=== PATIENT | female | born 1985 | race Caucasian/White ===

== ENCOUNTER 2022-12-25 06:32 | Emergency (ER) | payer MEDICARE, SELFPAY ==
[2022-12-25] VITALS (14 sets, daily range): BP systolic 157–188; BP diastolic 106–134; PULSE 87–90; RESP 18; TEMP 36.5; O2SAT 98; BMI 22.8
--- NOTE | 2022-12-25 07:45 | XR_ITS ---
The [address] [address] Patient Name: PRITESH TREJO MRN: [id number] date: 1985 Sex: F Assigned Patient Location: ER Current Patient Location: ER Accession/Order Number: [id number] Exam Date: 12/25/2022 08:26 Report Date: 12/25/2022 08:43 At the request of: RAHUL HUERTA Procedure: XR acute abdomen series EXAMINATION: XR acute abdomen series, 12/25/2022 8:26 AM EDT HISTORY: pain COMPARISON: KUB 12/14/2022 TECHNIQUE: Upright views of the chest and abdomen, with additional supine views of the abdomen. FINDINGS: Medical devices: Right IJ chest port catheter tip projects over the low SVC. Cardiomediastinal silhouette is within normal limits. Lungs and pleural spaces are grossly clear. Nonobstructive bowel gas pattern. Large volume formed colorectal stool. Procedure change projects over the abdomen, and IUD projects over the pelvis. No abnormal calcifications. No definite free intraperitoneal gas. XR/XR acute abdomen series IMPRESSION: 1. Nonobstructive bowel gas pattern. 2. Large volume formed colorectal stool. Electronically authenticated by: SHANNON LEONARD Date: 12/25/2022 08:43
[2022-12-25 07:58] LABS: Basophils Absolute Auto 0.1 10^3/uL (0.0-0.1); Basophils Percent Auto 0.7 % (0.2-2.0); Eosinophils Percent Auto 0.1 % (0.9-7.0); Hematocrit 25.5 % (36.0-48.0); Hemoglobin 7.7 g/dL (12.0-16.0); Immature Granulocytes Abs Auto 0.02 10^3/uL (0.00-0.03); Immature Granulocytes Pct Auto 0.3 % (0.0-0.5); Lymphocytes Absolute Auto 1.8 10^3/uL (1.2-3.8); Lymphocytes Percent Auto 26.6 % (20.5-60.0); Mean Corpuscular HGB Conc 30.2 g/dL (29.9-35.2); Mean Corpuscular Hemoglobin 26.9 pg (26.7-34.0); Mean Corpuscular Volume 89.2 fL (81.0-99.0); Mean Platelet Volume 10.1 fL (9.5-13.5); Monocytes Absolute Auto 0.7 10^3/uL (0.3-0.8); Monocytes Percent Auto 9.6 % (1.7-12.0); Neutrophils Absolute Auto 4.3 10^3/uL (1.4-6.5); Neutrophils Percent Auto 62.7 % (43.0-75.0); Platelet Count 516 10^3/uL (150-450); Red Blood Count 2.86 10^6/uL (4.20-5.40); Red Cell Distribution Width 16.7 % (11.0-15.0); White Blood Count 6.9 10^3/uL (4.0-11.0)
[2022-12-25] MEDS: PROCHLORPERAZINE 10 MG/2 ML VIAL IV (08:09)
[2022-12-25] MEDS: 0.9 % SODIUM CHLORIDE 1,000 ML 999 ML IV (08:09)
[2022-12-25] MEDS: ONDANSETRON PF 4 MG/2 ML VIAL IV (08:09)
[2022-12-25 08:13] LABS: Lactate/Lactic Acid 0.9 mmol/L (0.4-2.0)
[2022-12-25 08:20] LABS: Alanine Aminotransferase 21 U/L (14-59); Albumin Level 3.7 g/dL (3.4-5.0); Alkaline Phosphatase 134 U/L (46-116); Anion Gap 14.4; Aspartate Amino Transferase 12 U/L (15-37); BUN Creatinine Ratio 13.7; Bilirubin Total 0.2 mg/dL (0.2-1.0); Calcium 8.7 mg/dL (8.5-10.1); Carbon Dioxide 23.9 mmol/L (21.0-32.0); Chloride 109 mmol/L (98-107); Estimated GFR (African America 29 (>=60); Estimated GFR (Non-African Ame 24 (>=60); Globulin 3.8 g/dL; Glucose 113 mg/dL (74-106); Potassium 5.3 mmol/L (3.5-5.1); Sodium 142 mmol/L (136-145); Total Protein 7.5 g/dL (6.4-8.2); Troponin I High Sensitivity 7.2 pg/mL (4.0-51.3)
[2022-12-25 09:41] LABS: INR 0.98; Partial Thromboplastin Time 25.9 sec (22.3-36.2); Prothrombin Time 10.4 sec (9.0-11.6)
--- NOTE | 2022-12-25 11:02 | ED_ITS ---
HPI - General Adult General Chief complaint: Abdominal Pain Stated complaint: VOMITING BLOOD Time Seen by Provider: 12/25/22 07:43 Source: patient Mode of arrival: walk-in History of Present Illness HPI narrative: Patient is a 37-year-old female who is presenting to the Emergency Room with chief complaint of midepigastric pain, hematemesis that is been going on for 2 days. Patient has long-standing medical history, we see her past medical history section. Patient has had her pancreas completely removed. Patient's here because of intermittent hematemesis. Patient is not on any type of blood thinners. Patient does have a outpatient colonoscopy scheduled for Wednesday. Patient does have a history colonoscopy. Patient did not believe that she is , no urinary frequency, urgency or burning. No chest pain or shortness of breath. Patient's having acute on chronic midepigastric pain. Patient's having intractable vomiting. Patient took Phenergan 2 separate times a home with little relief, patient came into the Emergency Room for evaluation. SHe does have [place] that she can use at home intermittently as needed for pain. Patient states she suffers from constipation. No recent traveling, no trauma. Nothing unusual to eat or drink in the last day or 2. No acute complaints. . All systems are negative except as noted/marked. All systems reviewed and otherwise negative. . Nurses note and vital signs reviewed and patient is not hypoxic. General: The patient appears well and in No respiratory distress or any distress, mild discomfort secondary to midepigastric pain and intractable vomiting. Patient has no retching. Patient is resting uncomfortably on cart. Patient is not toxic, lethargic, or listless. Patient looks ill, not toxic. Skin: Warm, dry, no pallor noted. There is no rash noted. No petechiae, purpura.No jaundice. Head: Normocephalic, atraumatic Eye: Normal conjunctiva, no drainage, EOMI. PERRL Ears, Nose, Mouth, and Throat: oral mucosa is moist. Nares patent. Mouth without vesicles. Cardiovascular: Regular Rate and Rhythm, no murmur, gallop, rub Respiratory: Patient is in no distress, no accessory muscle use, lungs are clear to auscultation, no wheezing, rales or rhonchi Back: non-tender, no CVA tenderness bilaterally to percussion. No CT LS midline pain GI: soft, Mild to moderate midepigastric tenderness palpation, otherwise no tenderness to palpation, no masses appreciated. No rebound, guarding, or rigidity noted. No flank pain bilateral, No distention. No peritoneal signs. Mild distention. Musculoskeletal: Patient has full range of motion of all of the extremities, no motor, sensory, or focal neurological deficits Neurological: A&O x3, normal speech Psychiatric: Cooperative Related Data Home Medications Medication Instructions Recorded Confirmed alprazolam 1 mg tablet 1 mg PO QID PRN anxiety 12/25/22 12/25/22 amlodipine 10 mg tablet 10 mg PO DAILY 12/25/22 12/25/22 gabapentin 300 mg capsule 300 mg PO BID 12/25/22 12/25/22 hydrochlorothiazide 25 mg tablet 25 mg PO DAILY 12/25/22 12/25/22 losartan 50 mg tablet 50 mg PO DAILY 12/25/22 12/25/22 lubiprostone 24 mcg capsule mcg PO 12/25/22 lubiprostone 24 mcg capsule 24 mcg PO BID 12/25/22 12/25/22 (Amitiza) ondansetron HCl 2 mg/mL mg 12/25/22 intravenous solution oxycodone 5 mg tablet 5 mg PO Q6H PRN pain 12/25/22 12/25/22 promethazine 25 mg/mL injection mg 12/25/22 solution quetiapine 100 mg tablet 150 mg PO DAILY 12/25/22 12/25/22 sertraline 100 mg tablet (Zoloft) 100 mg PO DAILY 12/25/22 12/25/22 temazepam 15 mg capsule 15 mg PO DAILY 12/25/22 12/25/22 tizanidine 4 mg tablet 8 mg PO Q12H 12/25/22 12/25/22 zolpidem 10 mg tablet 10 mg PO DAILY 12/25/22 12/25/22 Allergies Allergy/AdvReac Type Severity Reaction Status Date / Time azithromycin [From Zithromax] Allergy Unknown Verified 12/25/22 06:50 clindamycin Allergy Unknown Verified 12/25/22 06:50 dicyclomine [From Bentyl] Allergy Unknown Verified 12/25/22 06:50 erythromycin base Allergy Unknown Verified 12/25/22 06:50 ketorolac [From Toradol] Allergy Unknown Verified 12/25/22 06:50 meperidine [From Demerol] Allergy Unknown Verified 12/25/22 06:50 metoclopramide [From Reglan] Allergy Unknown Verified 12/25/22 06:50 nitrofurantoin Allergy Unknown Verified 12/25/22 06:50 [From Macrobid] Penicillins Allergy Unknown Verified 12/25/22 06:50 vancomycin Allergy Unknown Verified 12/25/22 06:50 [facility] Medical History (Updated 12/25/22 @ 11:41 by Angus Vickers MD) Surgical History (Updated 12/25/22 @ 07:01 by Ginna Cruz) Social History Smoking status: Never smoker Exam Constitutional Vital Signs, click to edit/add: Last Vital Signs Temp 97.7 F 12/25/22 06:40 Pulse 90 12/25/22 06:40 Resp 18 12/25/22 06:40 BP 188/134 H 12/25/22 10:30 Pulse Ox 98 12/25/22 06:40 O2 Del Method Room Air 12/25/22 07:24 Course Vital Signs Vital signs: Vital Signs Temperature 97.7 F 12/25/22 06:40 Pulse Rate 90 12/25/22 06:40 Respiratory Rate 18 12/25/22 06:40 Blood Pressure 169/128 H 12/25/22 06:40 Pulse Oximetry 98 12/25/22 06:40 Oxygen Delivery Method Room Air 12/25/22 06:40 Temperature 97.7 F 12/25/22 06:40 Pulse Rate 90 12/25/22 06:40 Respiratory Rate 18 12/25/22 06:40 Blood Pressure 188/134 H 12/25/22 10:30 Pulse Oximetry 98 12/25/22 06:40 Oxygen Delivery Method Room Air 12/25/22 07:24 Medical Decision Making MDM Narrative Medical decision making narrative: Patient to 11 level was 7.7. Patient felt much better after Zofran and Compazine was given together with IV fluids. Patient was uncertain the Compazine and Zofran can be given together. Patient's lab work shows no other significant abnormalities. Patient will follow-up with PCP. Patient did not need or want any narcotics today. Patient understands it she can use Zofran with Compazine or Phenergan at home. Patient did not want a gastrointestinal cocktail prior to discharge. Patient did not want any narcotic pain medication. Patient does have a colonoscopy scheduled as an outpatient on Wednesday. Patient will not her surgeon in [place]'s during the colonoscopy no about her hemoglobin is 7.7. No questions at discharge. Lab Data Lab results reviewed: Yes I reviewed the patient's lab results Labs: Lab Results 12/25/22 12/25/22 Range/Units 07:15 08:00 WBC 6.9 (4.0-11.0) 10^3/uL RBC 2.86 L (4.20-5.40) 10^6/uL Hgb 7.7 L (12.0-16.0) g/dL Hct 25.5 L (36.0-48.0) % MCV 89.2 (81.0-99.0) fL MCH 26.9 (26.7-34.0) pg MCHC 30.2 (29.9-35.2) g/dL RDW 16.7 H (11.0-15.0) % Plt Count 516 H (150-450) 10^3/uL MPV 10.1 (9.5-13.5) fL Neut % (Auto) 62.7 (43.0-75.0) % Lymph % (Auto) 26.6 (20.5-60.0) % [place] % (Auto) 9.6 (1.7-12.0) % Eos % (Auto) 0.1 L (0.9-7.0) % Baso % (Auto) 0.7 (0.2-2.0) % Neut # (Auto) 4.3 (1.4-6.5) 10^3/uL Lymph # (Auto) 1.8 (1.2-3.8) 10^3/uL [place] # (Auto) 0.7 (0.3-0.8) 10^3/uL Eos # (Auto) 0.0 (0.0-0.7) 10^3/uL Baso # (Auto) 0.1 (0.0-0.1) 10^3/uL Abs Immat Gran (auto) 0.02 (0.00-0.03) 10^3/uL Imm/Tot Granulo (auto) 0.3 (0.0-0.5) % PT 10.4 (9.0-11.6) sec INR 0.98 APTT 25.9 (22.3-36.2) sec Sodium 142 (136-145) mmol/L Potassium 5.3 H (3.5-5.1) mmol/L Chloride 109 H (98-107) mmol/L Carbon Dioxide 23.9 (21.0-32.0) mmol/L Anion Gap 14.4 BUN 32.0 H (7.0-18.0) mg/dL Creatinine 2.34 H (0.55-1.02) mg/dL Est GFR ( Amer) 29 L (>=60) Est GFR (Non-Af Amer) 24 L (>=60) BUN/Creatinine Ratio 13.7 Glucose 113 H (74-106) mg/dL Lactate 0.9 (0.4-2.0) mmol/L Calcium 8.7 (8.5-10.1) mg/dL Magnesium 2.0 (1.8-2.4) mg/dL Total Bilirubin 0.2 (0.2-1.0) mg/dL AST 12 L (15-37) U/L ALT 21 (14-59) U/L Alkaline Phosphatase 134 H (46-116) U/L Troponin I High Sens 7.2 (4.0-51.3) pg/mL Total Protein 7.5 (6.4-8.2) g/dL Albumin 3.7 (3.4-5.0) g/dL Globulin 3.8 g/dL Albumin/Globulin Ratio 1.0 Lipase 12.0 L (73.0-393.0) U/L Blood Type A Positive Antibody Screen Negative ECG Data Attestation: I personally reviewed and interpreted this ECG as follows: Interpretation: EKG interpretation. Normal sinus rhythm at 78 beats a minute. Normal axis deviation. No acute ST elevation, no acute ectopy. QTC of 439. Discharge Plan Discharge Chief Complaint: Abdominal Pain Clinical Impression: Abdominal pain, Nausea and vomiting, Constipation, Chronic anemia Patient Disposition: Home, Self-Care Condition: Fair Mode of Transportation: Private Vehicle Prescriptions / Home Meds: No Action temazepam 15 mg capsule 15 mg PO DAILY zolpidem 10 mg tablet 10 mg PO DAILY quetiapine 100 mg tablet 150 mg PO DAILY sertraline [Zoloft] 100 mg tablet 100 mg PO DAILY tizanidine 4 mg tablet 8 mg PO Q12H gabapentin 300 mg capsule 300 mg PO BID lubiprostone [Amitiza] 24 mcg capsule 24 mcg PO BID amlodipine 10 mg tablet 10 mg PO DAILY losartan 50 mg tablet 50 mg PO DAILY hydrochlorothiazide 25 mg tablet 25 mg PO DAILY alprazolam 1 mg tablet 1 mg PO QID PRN (Reason: anxiety) ondansetron HCl 2 mg/mL solution promethazine 25 mg/mL solution lubiprostone 24 mcg capsule PO oxycodone 5 mg tablet 5 mg PO Q6H PRN (Reason: pain) Patient Comments: PALLIATIVE CARE PT Instructions: Constipation (ED), Acute Nausea and Vomiting (ED), Abdominal Pain (ED), Anemia (ED) Additional Instructions: He did take Zofran every 4 hours as discussed at bedside. He can use Compazine and Phenergan every 6 hours as needed. You could take Zofran and either Compazine or Phenergan together if needed for severe retching or vomiting. The hemoglobin level was 7.7. Follow-up with your gastrointestinal specialist today and inform them of the hemoglobin level to see if they want do any additional testing or transfusion prior to Colonoscopy on Wednesday. Continue taking medications as prescribed. Stand Alone Forms: Portal Instructions Referrals: Physician,Non-Staff, MD [Primary Care Provider] - 1 week Discharge Date/Time: 12/25/22 12:01
[2022-12-25] MEDS: HEPARIN SODIUM (PORCINE) PF LOCK FLUSH 500 UNIT/5 ML SYRINGE 250 UNIT IV (11:59)
--- NOTE | 2022-12-25 17:23 | ECG_ITS ---
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
== END 2022-12-25 12:01 | disposition home or self-care (01) ==
PROVIDERS: Emergency Provider Emergency Medicine
DX: R10.9 Unspecified abdominal pain (principal); R11.2 Nausea with vomiting, unspecified; K59.00 Constipation, unspecified; D64.9 Anemia, unspecified; Z79.899 Other long term (current) drug therapy
CPT/HCPCS: 36415; 74022; 80053; 83605; 83690; 83735; 84484; 85025; 85610; 85730; 86850; 86900; 86901; 93005; 96361; 96374; 96375; 99285

== ENCOUNTER 2023-01-13 14:44 | Emergency (ER) | payer MEDICARE, SELFPAY ==
[2023-01-13 14:48] VITALS: BP 180/100; PULSE 108; RESP 20; TEMP 36.8; O2SAT 98; BMI 22.8
--- NOTE | 2023-01-13 15:20 | ED_ITS ---
Documented by User: EDUARDO Connolly 01/13/23 18:03 HPI - Abdominal Pain General Chief Complaint: Abdominal Pain Stated Complaint: ABD PAIN Time Seen by Provider: 01/13/23 15:07 Source: patient Mode of arrival: walk-in Limitations: no limitations History of Present Illness HPI narrative: patient is a 37-year-old female well-known to this emergency department for complex chronic medical conditions. She states she was diagnosed with a cluster of ovarian cysts on the left side 4-5 days ago at the [place] emergency department. She has home oxycodone but states she has had an increase in pain and vomiting in the last two days and has not been able to hold down her home medications. She has not had any fevers, diarrhea. She states she feels as though her bladder is not emptying completely. she is not concerned for . She denies any hematuria. No flank or back pain. Related Data Home Medications Medication Instructions Recorded Confirmed alprazolam 1 mg tablet 1 mg PO QID PRN anxiety 12/25/22 12/25/22 amlodipine 10 mg tablet 10 mg PO DAILY 12/25/22 12/25/22 gabapentin 300 mg capsule 300 mg PO BID 12/25/22 12/25/22 hydrochlorothiazide 25 mg tablet 25 mg PO DAILY 12/25/22 12/25/22 losartan 50 mg tablet 50 mg PO DAILY 12/25/22 12/25/22 lubiprostone 24 mcg capsule mcg PO 12/25/22 lubiprostone 24 mcg capsule 24 mcg PO BID 12/25/22 12/25/22 (Amitiza) ondansetron HCl 2 mg/mL mg 12/25/22 intravenous solution oxycodone 5 mg tablet 5 mg PO Q6H PRN pain 12/25/22 12/25/22 promethazine 25 mg/mL injection mg 12/25/22 solution quetiapine 100 mg tablet 150 mg PO DAILY 12/25/22 12/25/22 sertraline 100 mg tablet (Zoloft) 100 mg PO DAILY 12/25/22 12/25/22 temazepam 15 mg capsule 15 mg PO DAILY 12/25/22 12/25/22 tizanidine 4 mg tablet 8 mg PO Q12H 12/25/22 12/25/22 zolpidem 10 mg tablet 10 mg PO DAILY 12/25/22 12/25/22 Allergies Allergy/AdvReac Type Severity Reaction Status Date / Time azithromycin [From Zithromax] Allergy Unknown Verified 12/25/22 06:50 clindamycin Allergy Unknown Verified 12/25/22 06:50 dicyclomine [From Bentyl] Allergy Unknown Verified 12/25/22 06:50 erythromycin base Allergy Unknown Verified 12/25/22 06:50 ketorolac [From Toradol] Allergy Unknown Verified 12/25/22 06:50 meperidine [From Demerol] Allergy Unknown Verified 12/25/22 06:50 metoclopramide [From Reglan] Allergy Unknown Verified 12/25/22 06:50 nitrofurantoin Allergy Unknown Verified 12/25/22 06:50 [From Macrobid] Penicillins Allergy Unknown Verified 12/25/22 06:50 vancomycin Allergy Unknown Verified 12/25/22 06:50 Review of Systems ROS Constitutional Denies: fever or chills Ears, nose, mouth, and throat Denies: throat pain Respiratory Denies: shortness of breath or cough Gastrointestinal Denies: nausea or vomiting Musculoskeletal Denies: back pain Integumentary/Breast Denies: rash Neurological Denies: headache Allergic/Immunologic Denies: hives [facility] Medical History (Updated 01/13/23 @ 18:03 by EDUARDO Connolly) Surgical History (Updated 12/25/22 @ 07:01 by Ginna Cruz) Social History Smoking status: Never smoker Exam Narrative Exam Narrative: Gen.: Awake, alert, in no distress Head: Normocephalic, atraumatic ENT: Moist mucous membranes Respiratory: No respiratory distress Gastrointestinal: Abdomen is soft, tender in the left lower quadrant with voluntary guarding, no rebound Extremities: Moves extremities equally, no injuries noted Psych: flat affect Neuro: No focal neuro deficit Skin: Warm, dry, intact Constitutional Vital Signs, click to edit/add: Last Vital Signs Temp 98.2 F 01/13/23 14:48 Pulse 108 H 01/13/23 14:48 Resp 20 01/13/23 14:48 BP 160/98 H 01/13/23 17:41 Pulse Ox 98 01/13/23 14:48 O2 Del Method Room Air 01/13/23 14:48 Course Vital Signs Vital signs: Vital Signs Temperature 98.2 F 01/13/23 14:48 Pulse Rate 108 H 01/13/23 14:48 Respiratory Rate 20 01/13/23 14:48 Blood Pressure 180/100 H 01/13/23 14:48 Pulse Oximetry 98 01/13/23 14:48 Oxygen Delivery Method Room Air 01/13/23 14:48 Temperature 98.2 F 01/13/23 14:48 Pulse Rate 108 H 01/13/23 14:48 Respiratory Rate 20 01/13/23 14:48 Blood Pressure 160/98 H 01/13/23 17:41 Pulse Oximetry 98 01/13/23 14:48 Oxygen Delivery Method Room Air 01/13/23 14:48 MDM - Abdominal Pain MDM Narrative Medical decision making narrative: repeat ultrasound shows the patient does not have ovarian torsion. There is a small simple 1.7 cm cyst in the left ovary as well as a 2 cm cyst which may be hemorrhagic. There is no free fluid in the pelvis. Patient was given IV fluids, morphine, Zofran, Phenergan. After the initial Zofran, patient vomited crackers. She had no persistent emesis in the Emergency Room was given additional antibiotics. Abdomen is soft and benign on recheck by attending physician. Lab studies are stable, actually improved from previous visit. Patient will be discharged home with Phenergan suppositories. She has oxycodone at home that she can take from her PCP. Return to the Emergency Room if symptoms change or worsen. Medical Records Attestation: I reviewed the patient's medical records. Lab Data Attestation: I reviewed the patient's lab results. Labs: Lab Results 01/13/23 01/13/23 01/13/23 Range/Units 15:20 17:00 17:38 WBC 10.1 (4.0-11.0) 10^3/uL RBC 3.58 L (4.20-5.40) 10^6/uL Hgb 9.3 L (12.0-16.0) g/dL Hct 29.9 L (36.0-48.0) % MCV 83.5 (81.0-99.0) fL MCH 26.0 L (26.7-34.0) pg MCHC 31.1 (29.9-35.2) g/dL RDW 15.9 H (11.0-15.0) % Plt Count 519 H (150-450) 10^3/uL MPV 10.2 (9.5-13.5) fL Neut % (Auto) 75.8 H (43.0-75.0) % Lymph % (Auto) 13.8 L (20.5-60.0) % [place] % (Auto) 8.7 (1.7-12.0) % Eos % (Auto) 0.7 L (0.9-7.0) % Baso % (Auto) 0.5 (0.2-2.0) % Neut # (Auto) 7.6 H (1.4-6.5) 10^3/uL Lymph # (Auto) 1.4 (1.2-3.8) 10^3/uL [place] # (Auto) 0.9 H (0.3-0.8) 10^3/uL Eos # (Auto) 0.1 (0.0-0.7) 10^3/uL Baso # (Auto) 0.1 (0.0-0.1) 10^3/uL Abs Immat Gran (auto) 0.05 H (0.00-0.03) 10^3/uL Imm/Tot Granulo (auto) 0.5 (0.0-0.5) % Sodium 141 (136-145) mmol/L Potassium 4.4 (3.5-5.1) mmol/L Chloride 109 H (98-107) mmol/L Carbon Dioxide 19.9 L (21.0-32.0) mmol/L Anion Gap 16.5 BUN 29.0 H (7.0-18.0) mg/dL Creatinine 2.25 H (0.55-1.02) mg/dL Est GFR ( Amer) 30 L (>=60) Est GFR (Non-Af Amer) 25 L (>=60) BUN/Creatinine Ratio 12.9 Glucose 107 H (74-106) mg/dL Lactate 1.5 (0.4-2.0) mmol/L Calcium 8.1 L (8.5-10.1) mg/dL Total Bilirubin 0.1 L (0.2-1.0) mg/dL AST 26 (15-37) U/L ALT 38 (14-59) U/L Alkaline Phosphatase 176 H (46-116) U/L Total Protein 7.6 (6.4-8.2) g/dL Albumin 3.8 (3.4-5.0) g/dL Globulin 3.8 g/dL Albumin/Globulin Ratio 1.0 Serum HCG, Qual Negative (NEGATIVE) Urine Color Lt. yellow (YELLOW) Urine Clarity Clear (CLEAR) Urine pH 5.5 (5.0-9.0) Ur Specific [place] 1.015 (1.005-1.025) Urine Protein Negative (NEG/TRACE) mg/dL Urine Glucose (UA) Negative (NEGATIVE) mg/dL Urine Ketones Negative (NEGATIVE) mg/dL Urine Occult Blood Trace-i (NEGATIVE) Urine Nitrite Negative (NEGATIVE) Urine Bilirubin Negative (NEGATIVE) Urine Urobilinogen 0.2 (0.2-1.0) EU/dL Ur Leukocyte Esterase Negative (NEGATIVE) Urine RBC 0-2 (0-2) #/HPF Urine WBC 0-2 A (NONE SEEN) #/HPF Ur Squamous Epith Cells Few A (NONE/RARE) #/LPF Urine Crystals None seen (None Seen) #/HPF Urine Bacteria Small A (NONE SEEN) #/HPF Urine Casts None seen (NONE SEEN) #/LPF Urine Mucus None seen (NONE SEEN) Ur Culture Indicated? Yes POC Glucose 134 H (74-106) mg/dL Imaging Data US pelvis: Attestation: I have reviewed the pertinent imaging results. Radiologist's impression: Procedure: US pelvis transvaginal EXAM: US pelvis transvaginal HISTORY: Left ovarian torsion , left sided pelvic pain for one week. COMPARISON: None. TECHNIQUE: Transvaginal pelvic ultrasound. FINDINGS: Uterus is anteverted in position and measures 11.5 x 3.5 x 5.6 cm. There is a shadowing echogenic structure in the uterine cavity compatible with intrauterine device. It is suboptimally visualized due to positioning of the uterus but appears to be grossly in expected position. Endometrial complex thickness of 8 mm. Right ovary 3.1 x 2.9 x 2.2 cm. Left ovary measures 4.8 x 2.9 x 3.6 cm. There is dopplerable arterial and venous flow to both ovaries, with resistive index of 0.51 on right and 0.43 on the left. There is a small simple-appearing cyst in the left ovary measuring 1.7 cm, and also a nonspecific hypoechoic avascular nodule that could be a hemorrhagic cyst measuring 2.0 x 2.1 cm. No free pelvic fluid. There are small cysts in the cervix. IMPRESSION: 1. Negative for ovarian torsion. 2. 2.0 x 2.1 cm hypoechoic structure in the left ovary that may be a hemorrhagic cyst. Additional 1.7 cm cyst in left ovary. 3. Intrauterine device poorly visualized but appears to be grossly in expected position. 4. Cervical nabothian cysts. 5. No free pelvic fluid. Electronically authenticated by: LEELEE FRIEDMAN Date: 01/13/2023 16:33 Discharge Plan Discharge Chief Complaint: Abdominal Pain Clinical Impression: Nausea and vomiting, Abdominal pain, Cyst of left ovary Patient Disposition: Home, Self-Care Time of Disposition Decision: 18:03 Condition: Good Mode of Transportation: Private Vehicle Prescriptions / Home Meds: No Action temazepam 15 mg capsule 15 mg PO DAILY zolpidem 10 mg tablet 10 mg PO DAILY quetiapine 100 mg tablet 150 mg PO DAILY sertraline [Zoloft] 100 mg tablet 100 mg PO DAILY tizanidine 4 mg tablet 8 mg PO Q12H gabapentin 300 mg capsule 300 mg PO BID lubiprostone [Amitiza] 24 mcg capsule 24 mcg PO BID amlodipine 10 mg tablet 10 mg PO DAILY losartan 50 mg tablet 50 mg PO DAILY hydrochlorothiazide 25 mg tablet 25 mg PO DAILY alprazolam 1 mg tablet 1 mg PO QID PRN (Reason: anxiety) ondansetron HCl 2 mg/mL solution promethazine 25 mg/mL solution lubiprostone 24 mcg capsule PO oxycodone 5 mg tablet 5 mg PO Q6H PRN (Reason: pain) Patient Comments: PALLIATIVE CARE PT Instructions: Ovarian Cyst (ED), Acute Nausea and Vomiting (DC), Abdominal Pain (ED) Stand Alone Forms: Portal Instructions Referrals: Physician,Non-Staff, MD [Primary Care Provider] - 1 week Discharge Date/Time: 01/13/23 18:12 Documented by User: Angus Vickers MD 01/13/23 19:42 HPI - Abdominal Pain General Chief Complaint: Abdominal Pain Stated Complaint: ABD PAIN Time Seen by Provider: 01/13/23 15:07 Related Data Home Medications Medication Instructions Recorded Confirmed alprazolam 1 mg tablet 1 mg PO QID PRN anxiety 12/25/22 12/25/22 amlodipine 10 mg tablet 10 mg PO DAILY 12/25/22 12/25/22 gabapentin 300 mg capsule 300 mg PO BID 12/25/22 12/25/22 hydrochlorothiazide 25 mg tablet 25 mg PO DAILY 12/25/22 12/25/22 losartan 50 mg tablet 50 mg PO DAILY 12/25/22 12/25/22 lubiprostone 24 mcg capsule mcg PO 12/25/22 lubiprostone 24 mcg capsule 24 mcg PO BID 12/25/22 12/25/22 (Amitiza) ondansetron HCl 2 mg/mL mg 12/25/22 intravenous solution oxycodone 5 mg tablet 5 mg PO Q6H PRN pain 12/25/22 12/25/22 promethazine 25 mg/mL injection mg 12/25/22 solution quetiapine 100 mg tablet 150 mg PO DAILY 12/25/22 12/25/22 sertraline 100 mg tablet (Zoloft) 100 mg PO DAILY 12/25/22 12/25/22 temazepam 15 mg capsule 15 mg PO DAILY 12/25/22 12/25/22 tizanidine 4 mg tablet 8 mg PO Q12H 12/25/22 12/25/22 zolpidem 10 mg tablet 10 mg PO DAILY 12/25/22 12/25/22 Allergies Allergy/AdvReac Type Severity Reaction Status Date / Time azithromycin [From Zithromax] Allergy Unknown Verified 12/25/22 06:50 clindamycin Allergy Unknown Verified 12/25/22 06:50 dicyclomine [From Bentyl] Allergy Unknown Verified 12/25/22 06:50 erythromycin base Allergy Unknown Verified 12/25/22 06:50 ketorolac [From Toradol] Allergy Unknown Verified 12/25/22 06:50 meperidine [From Demerol] Allergy Unknown Verified 12/25/22 06:50 metoclopramide [From Reglan] Allergy Unknown Verified 12/25/22 06:50 nitrofurantoin Allergy Unknown Verified 12/25/22 06:50 [From Macrobid] Penicillins Allergy Unknown Verified 12/25/22 06:50 vancomycin Allergy Unknown Verified 12/25/22 06:50 [facility] Medical History (Updated 01/13/23 @ 18:03 by EDUARDO Connolly) Surgical History (Updated 12/25/22 @ 07:01 by Ginna Cruz) Social History Smoking status: Never smoker Exam Constitutional Vital Signs, click to edit/add: Last Vital Signs Temp 98.2 F 01/13/23 14:48 Pulse 108 H 01/13/23 14:48 Resp 20 01/13/23 14:48 BP 160/98 H 01/13/23 17:41 Pulse Ox 98 01/13/23 14:48 O2 Del Method Room Air 01/13/23 14:48 Course Vital Signs Vital signs: Vital Signs Temperature 98.2 F 01/13/23 14:48 Pulse Rate 108 H 01/13/23 14:48 Respiratory Rate 20 01/13/23 14:48 Blood Pressure 180/100 H 01/13/23 14:48 Pulse Oximetry 98 01/13/23 14:48 Oxygen Delivery Method Room Air 01/13/23 14:48 Temperature 98.2 F 01/13/23 14:48 Pulse Rate 108 H 01/13/23 14:48 Respiratory Rate 20 01/13/23 14:48 Blood Pressure 160/98 H 01/13/23 17:41 Pulse Oximetry 98 01/13/23 14:48 Oxygen Delivery Method Room Air 01/13/23 14:48 MDM - Abdominal Pain MDM Narrative Medical decision making narrative: repeat ultrasound shows the patient does not have ovarian torsion. There is a small simple 1.7 cm cyst in the left ovary as well as a 2 cm cyst which may be hemorrhagic. There is no free fluid in the pelvis. Patient was given IV fluids, morphine, Zofran, Phenergan. After the initial Zofran, patient vomited crackers. She had no persistent emesis in the Emergency Room was given additional antibiotics. Abdomen is soft and benign on recheck by attending physician. Lab studies are stable, actually improved from previous visit. Patient will be discharged home with Phenergan suppositories. She has oxycodone at home that she can take from her PCP. Return to the Emergency Room if symptoms change or worsen. I, Dr Vickers, have reviewed the above progress note and course of action in the ER; agree with the above. I have personally seen and evaluated this patient, gone over history and physical, and discussed disposition and treatment plan with the patient. Lab Data Labs: Lab Results 01/13/23 01/13/23 01/13/23 Range/Units 15:20 17:00 17:38 WBC 10.1 (4.0-11.0) 10^3/uL RBC 3.58 L (4.20-5.40) 10^6/uL Hgb 9.3 L (12.0-16.0) g/dL Hct 29.9 L (36.0-48.0) % MCV 83.5 (81.0-99.0) fL MCH 26.0 L (26.7-34.0) pg MCHC 31.1 (29.9-35.2) g/dL RDW 15.9 H (11.0-15.0) % Plt Count 519 H (150-450) 10^3/uL MPV 10.2 (9.5-13.5) fL Neut % (Auto) 75.8 H (43.0-75.0) % Lymph % (Auto) 13.8 L (20.5-60.0) % [place] % (Auto) 8.7 (1.7-12.0) % Eos % (Auto) 0.7 L (0.9-7.0) % Baso % (Auto) 0.5 (0.2-2.0) % Neut # (Auto) 7.6 H (1.4-6.5) 10^3/uL Lymph # (Auto) 1.4 (1.2-3.8) 10^3/uL [place] # (Auto) 0.9 H (0.3-0.8) 10^3/uL Eos # (Auto) 0.1 (0.0-0.7) 10^3/uL Baso # (Auto) 0.1 (0.0-0.1) 10^3/uL Abs Immat Gran (auto) 0.05 H (0.00-0.03) 10^3/uL Imm/Tot Granulo (auto) 0.5 (0.0-0.5) % Sodium 141 (136-145) mmol/L Potassium 4.4 (3.5-5.1) mmol/L Chloride 109 H (98-107) mmol/L Carbon Dioxide 19.9 L (21.0-32.0) mmol/L Anion Gap 16.5 BUN 29.0 H (7.0-18.0) mg/dL Creatinine 2.25 H (0.55-1.02) mg/dL Est GFR ( Amer) 30 L (>=60) Est GFR (Non-Af Amer) 25 L (>=60) BUN/Creatinine Ratio 12.9 Glucose 107 H (74-106) mg/dL Lactate 1.5 (0.4-2.0) mmol/L Calcium 8.1 L (8.5-10.1) mg/dL Total Bilirubin 0.1 L (0.2-1.0) mg/dL AST 26 (15-37) U/L ALT 38 (14-59) U/L Alkaline Phosphatase 176 H (46-116) U/L Total Protein 7.6 (6.4-8.2) g/dL Albumin 3.8 (3.4-5.0) g/dL Globulin 3.8 g/dL Albumin/Globulin Ratio 1.0 Serum HCG, Qual Negative (NEGATIVE) Urine Color Lt. yellow (YELLOW) Urine Clarity Clear (CLEAR) Urine pH 5.5 (5.0-9.0) Ur Specific [place] 1.015 (1.005-1.025) Urine Protein Negative (NEG/TRACE) mg/dL Urine Glucose (UA) Negative (NEGATIVE) mg/dL Urine Ketones Negative (NEGATIVE) mg/dL Urine Occult Blood Trace-i (NEGATIVE) Urine Nitrite Negative (NEGATIVE) Urine Bilirubin Negative (NEGATIVE) Urine Urobilinogen 0.2 (0.2-1.0) EU/dL Ur Leukocyte Esterase Negative (NEGATIVE) Urine RBC 0-2 (0-2) #/HPF Urine WBC 0-2 A (NONE SEEN) #/HPF Ur Squamous Epith Cells Few A (NONE/RARE) #/LPF Urine Crystals None seen (None Seen) #/HPF Urine Bacteria Small A (NONE SEEN) #/HPF Urine Casts None seen (NONE SEEN) #/LPF Urine Mucus None seen (NONE SEEN) Ur Culture Indicated? Yes POC Glucose 134 H (74-106) mg/dL Discharge Plan Discharge Chief Complaint: Abdominal Pain Clinical Impression: Nausea and vomiting, Abdominal pain, Cyst of left ovary Patient Disposition: Home, Self-Care Time of Disposition Decision: 18:03 Condition: Good Mode of Transportation: Private Vehicle Prescriptions / Home Meds: No Action temazepam 15 mg capsule 15 mg PO DAILY zolpidem 10 mg tablet 10 mg PO DAILY quetiapine 100 mg tablet 150 mg PO DAILY sertraline [Zoloft] 100 mg tablet 100 mg PO DAILY tizanidine 4 mg tablet 8 mg PO Q12H gabapentin 300 mg capsule 300 mg PO BID lubiprostone [Amitiza] 24 mcg capsule 24 mcg PO BID amlodipine 10 mg tablet 10 mg PO DAILY losartan 50 mg tablet 50 mg PO DAILY hydrochlorothiazide 25 mg tablet 25 mg PO DAILY alprazolam 1 mg tablet 1 mg PO QID PRN (Reason: anxiety) ondansetron HCl 2 mg/mL solution promethazine 25 mg/mL solution lubiprostone 24 mcg capsule PO oxycodone 5 mg tablet 5 mg PO Q6H PRN (Reason: pain) Patient Comments: PALLIATIVE CARE PT Instructions: Ovarian Cyst (ED), Acute Nausea and Vomiting (DC), Abdominal Pain (ED) Stand Alone Forms: Portal Instructions Referrals: Physician,Non-Staff, MD [Primary Care Provider] - 1 week Discharge Date/Time: 01/13/23 18:12
--- NOTE | 2023-01-13 15:21 | US_ITS ---
[address] [address] Patient Name: PRITESH TREJO MRN: [id number] date: 1985 Sex: F Assigned Patient Location: ER Current Patient Location: ER Accession/Order Number: [id number] Exam Date: 01/13/2023 15:23 Report Date: 01/13/2023 16:33 At the request of: DESIREE SAN Procedure: US pelvis transvaginal EXAM: US pelvis transvaginal HISTORY: Left ovarian torsion , left sided pelvic pain for one week. COMPARISON: None. TECHNIQUE: Transvaginal pelvic ultrasound. FINDINGS: Uterus is anteverted in position and measures 11.5 x 3.5 x 5.6 cm. There is a shadowing echogenic structure in the uterine cavity compatible with intrauterine device. It is suboptimally visualized due to positioning of the uterus but appears to be grossly in expected position. Endometrial complex thickness of 8 mm. Right ovary 3.1 x 2.9 x 2.2 cm. Left ovary measures 4.8 x 2.9 x 3.6 cm. There is dopplerable arterial and venous flow to both ovaries, with resistive index of 0.51 on right and 0.43 on the left. There is a small simple-appearing cyst in the left ovary measuring 1.7 cm, and also a nonspecific hypoechoic avascular nodule that could be a hemorrhagic cyst measuring 2.0 x 2.1 cm. No free pelvic fluid. There are small cysts in the cervix. US/US pelvis transvaginal IMPRESSION: 1. Negative for ovarian torsion. 2. 2.0 x 2.1 cm hypoechoic structure in the left ovary that may be a hemorrhagic cyst. Additional 1.7 cm cyst in left ovary. 3. Intrauterine device poorly visualized but appears to be grossly in expected position. 4. Cervical nabothian cysts. 5. No free pelvic fluid. Electronically authenticated by: LEELEE FRIEDMAN Date: 01/13/2023 16:33
[2023-01-13] MEDS: 0.9 % SODIUM CHLORIDE 1,000 ML 999 ML IV (15:22)
[2023-01-13] MEDS: ONDANSETRON PF 4 MG/2 ML VIAL IV (15:31)
[2023-01-13] MEDS: MORPHINE SULFATE 4 MG/ML VIAL IV (15:31)
[2023-01-13 15:50] LABS: HCG Qualitative NEGATIVE (NEGATIVE)
[2023-01-13 15:54] LABS: Basophils Absolute Auto 0.1 10^3/uL (0.0-0.1); Basophils Percent Auto 0.5 % (0.2-2.0); Eosinophils Absolute Auto 0.1 10^3/uL (0.0-0.7); Eosinophils Percent Auto 0.7 % (0.9-7.0); Hematocrit 29.9 % (36.0-48.0); Hemoglobin 9.3 g/dL (12.0-16.0); Immature Granulocytes Abs Auto 0.05 10^3/uL (0.00-0.03); Immature Granulocytes Pct Auto 0.5 % (0.0-0.5); Lymphocytes Absolute Auto 1.4 10^3/uL (1.2-3.8); Lymphocytes Percent Auto 13.8 % (20.5-60.0); Mean Corpuscular HGB Conc 31.1 g/dL (29.9-35.2); Mean Corpuscular Volume 83.5 fL (81.0-99.0); Mean Platelet Volume 10.2 fL (9.5-13.5); Monocytes Absolute Auto 0.9 10^3/uL (0.3-0.8); Monocytes Percent Auto 8.7 % (1.7-12.0); Neutrophils Absolute Auto 7.6 10^3/uL (1.4-6.5); Neutrophils Percent Auto 75.8 % (43.0-75.0); Platelet Count 519 10^3/uL (150-450); Red Blood Count 3.58 10^6/uL (4.20-5.40); Red Cell Distribution Width 15.9 % (11.0-15.0); White Blood Count 10.1 10^3/uL (4.0-11.0)
[2023-01-13 15:58] LABS: Alanine Aminotransferase 38 U/L (14-59); Albumin Level 3.8 g/dL (3.4-5.0); Alkaline Phosphatase 176 U/L (46-116); Anion Gap 16.5; Aspartate Amino Transferase 26 U/L (15-37); BUN Creatinine Ratio 12.9; Bilirubin Total 0.1 mg/dL (0.2-1.0); Calcium 8.1 mg/dL (8.5-10.1); Carbon Dioxide 19.9 mmol/L (21.0-32.0); Chloride 109 mmol/L (98-107); Estimated GFR (African America 30 (>=60); Estimated GFR (Non-African Ame 25 (>=60); Globulin 3.8 g/dL; Glucose 107 mg/dL (74-106); Potassium 4.4 mmol/L (3.5-5.1); Sodium 141 mmol/L (136-145); Total Protein 7.6 g/dL (6.4-8.2)
[2023-01-13 16:00] LABS: Lactate/Lactic Acid 1.5 mmol/L (0.4-2.0)
[2023-01-13] MEDS: PROMETHAZINE HCL 25 MG/ML VIAL 12.5 MG IV (17:15)
[2023-01-13] MEDS: DEXTROSE 50 %-WATER 25 GM/50 ML SYRINGE 25 ML IV (17:21)
[2023-01-13 17:32] LABS: Bilirubin Urine NEGATIVE (NEGATIVE); Blood Urine TRACE-I (NEGATIVE); Clarity Urine CLEAR (CLEAR); Color Urine LT. YELLOW (YELLOW); Glucose Urine UA NEGATIVE (NEGATIVE); Ketones Urine NEGATIVE (NEGATIVE); Leukocyte Esterase Urine NEGATIVE (NEGATIVE); Nitrite Urine NEGATIVE (NEGATIVE); Protein Urine NEGATIVE (NEG/TRACE); Specific Gravity Urine 1.015 (1.005-1.025); Urobilinogen Urine 0.2 EU/dL (0.2-1.0); pH Urine 5.5 (5.0-9.0)
[2023-01-13 17:39] LABS: Glucometer 134 mg/dL (74-106)
[2023-01-13 17:41] VITALS: BP 160/98
[2023-01-13 17:43] LABS: Urine Microscopic Indicated YES
[2023-01-13 17:44] LABS: Bacteria Urine SMALL #/HPF (NONE SEEN); Mucus Urine NONE SEEN (NONE SEEN); RBC Urine 0-2 #/HPF (0-2); Squamous Epithelial Cell Urine FEW #/LPF (NONE/RARE); WBC Urine 0-2 #/HPF (NONE SEEN)
[2023-01-13 17:45] LABS: Cast Seen? NONE SEEN #/LPF (NONE SEEN); Crystals Seen? None Seen #/HPF (None Seen); Urine Culture Indicated YES
[2023-01-13] MEDS: HEPARIN SODIUM (PORCINE) PF LOCK FLUSH 500 UNIT/5 ML SYRINGE 250 UNIT IV (18:10)
== END 2023-01-13 18:12 | disposition home or self-care (01) ==
PROVIDERS: Physician Assistant; Emergency Provider Emergency Medicine
DX: N83.292 Other ovarian cyst, left side (principal); R10.9 Unspecified abdominal pain; R11.2 Nausea with vomiting, unspecified; Z79.899 Other long term (current) drug therapy
CPT/HCPCS: 36415; 36416; 76830; 80053; 81001; 81003; 82948; 83605; 84703; 85025; 87086; 96361; 96374; 96375; 99285

== ENCOUNTER 2023-02-02 12:20 | Emergency (ER) | payer MEDICARE, SELFPAY ==
[2023-02-02] VITALS (26 sets, daily range): BP systolic 146–176; BP diastolic 88–125; PULSE 77–89; RESP 15–34; TEMP 37.1; O2SAT 85–100; BMI 22.8
[2023-02-02] MEDS: 0.9 % SODIUM CHLORIDE 1,000 ML 999 ML IV (12:44)
[2023-02-02] MEDS: ONDANSETRON PF 4 MG/2 ML VIAL IV (12:45)
[2023-02-02 12:51] LABS: Basophils Absolute Auto 0.1 10^3/uL (0.0-0.1); Basophils Percent Auto 0.4 % (0.2-2.0); Eosinophils Percent Auto 0.2 % (0.9-7.0); Hemoglobin 8.9 g/dL (12.0-16.0); Immature Granulocytes Abs Auto 0.05 10^3/uL (0.00-0.03); Immature Granulocytes Pct Auto 0.4 % (0.0-0.5); Lymphocytes Absolute Auto 2.5 10^3/uL (1.2-3.8); Lymphocytes Percent Auto 19.8 % (20.5-60.0); Mean Corpuscular HGB Conc 30.7 g/dL (29.9-35.2); Mean Corpuscular Hemoglobin 26.2 pg (26.7-34.0); Mean Corpuscular Volume 85.3 fL (81.0-99.0); Mean Platelet Volume 10.4 fL (9.5-13.5); Monocytes Percent Auto 7.9 % (1.7-12.0); Neutrophils Absolute Auto 9.1 10^3/uL (1.4-6.5); Neutrophils Percent Auto 71.3 % (43.0-75.0); Platelet Count 406 10^3/uL (150-450); Red Cell Distribution Width 17.3 % (11.0-15.0); White Blood Count 12.7 10^3/uL (4.0-11.0)
--- NOTE | 2023-02-02 12:56 | ED.SYNCOPE1 ---
HPI - Syncope General Chief Complaint: Syncope Stated Complaint: SYNCOPE Time Seen by Provider: 02/02/23 12:33 Source: patient Mode of arrival: ambulance Limitations: no limitations History of Present Illness HPI narrative: This document has been composed with a new electronic medical record and [facility] voice recognition system. This document may not fully inaccurately reflect the entirety of the patient encounter.this patient brought to us by paramedics for a possible syncopal episode. She is well known to us here she has a number of medical issues and problems are being managed by a group of physicians both local and not local. Today basically she said that her sugar had dropped very low and she turned off for insulin pump and gave herself glucagon intramuscular. Before that she had said that she been nausea and vomiting off-and-on for the last couple days. Today when she retched very forcefully she noticed some bright red blood. She's been under the care of a gastrointestinal doctor in [facility]. She says that they did upper and lower endoscopy and are going to be proceeding with a pill endoscopy. She said during one of her endoscopist sees a clamped and cauterized a suspicious area in her stomach. She denied a history of esophageal varices. I'll try to get those records from the other facility. She's not had black stools. She said after the vomiting today and after she gave herself the glucagon she felt woozy and lightheaded think she may have collapsed. She doesn't have any injury from falling. As I said she's been here and I have reviewed some her previous records. Her last visit I believe was for ovarian cyst and she says her car replace her contraceptive in hopes that would take care of her ovarian cystic problems. Related Data Home Medications Medication Instructions Recorded Confirmed alprazolam 1 mg tablet 1 mg PO QID PRN anxiety 12/25/22 12/25/22 amlodipine 10 mg tablet 10 mg PO DAILY 12/25/22 12/25/22 gabapentin 300 mg capsule 300 mg PO BID 12/25/22 12/25/22 hydrochlorothiazide 25 mg tablet 25 mg PO DAILY 12/25/22 12/25/22 losartan 50 mg tablet 50 mg PO DAILY 12/25/22 12/25/22 lubiprostone 24 mcg capsule mcg PO 12/25/22 lubiprostone 24 mcg capsule 24 mcg PO BID 12/25/22 12/25/22 (Amitiza) ondansetron HCl 2 mg/mL mg 12/25/22 intravenous solution oxycodone 5 mg tablet 5 mg PO Q6H PRN pain 12/25/22 12/25/22 promethazine 25 mg/mL injection mg 12/25/22 solution quetiapine 100 mg tablet 150 mg PO DAILY 12/25/22 12/25/22 sertraline 100 mg tablet (Zoloft) 100 mg PO DAILY 12/25/22 12/25/22 temazepam 15 mg capsule 15 mg PO DAILY 12/25/22 12/25/22 tizanidine 4 mg tablet 8 mg PO Q12H 12/25/22 12/25/22 zolpidem 10 mg tablet 10 mg PO DAILY 12/25/22 12/25/22 Allergies Allergy/AdvReac Type Severity Reaction Status Date / Time azithromycin [From Zithromax] Allergy Unknown Verified 12/25/22 06:50 clindamycin Allergy Unknown Verified 12/25/22 06:50 dicyclomine [From Bentyl] Allergy Unknown Verified 12/25/22 06:50 erythromycin base Allergy Unknown Verified 12/25/22 06:50 ketorolac [From Toradol] Allergy Unknown Verified 12/25/22 06:50 meperidine [From Demerol] Allergy Unknown Verified 12/25/22 06:50 metoclopramide [From Reglan] Allergy Unknown Verified 12/25/22 06:50 nitrofurantoin Allergy Unknown Verified 12/25/22 06:50 [From Macrobid] Penicillins Allergy Unknown Verified 12/25/22 06:50 vancomycin Allergy Unknown Verified 12/25/22 06:50 [facility] Medical History (Updated 01/13/23 @ 18:03 by EDUARDO Connolly) Surgical History (Updated 02/02/23 @ 14:47 by Radha Johnston) Social History Smoking status: Never smoker Exam Narrative Exam Narrative: awake alert does not appear ill or toxic. Vitals are stable. She is not tachycardic. Constitutional she's got clammy pale or diaphoretic. HEENT mucous membranes membranes are moist and pink with no evidence of pallor. Chest shows lungs to be clear with no wheeze rales rhonchi there is no restaurant distress. Heart sounds are normal no tachycardia or murmur. Constitutional Vital Signs, click to edit/add: Last Vital Signs Temp 98.7 F 02/02/23 12:24 Pulse 82 02/02/23 12:24 Resp 24 02/02/23 12:24 BP 164/106 H 02/02/23 12:24 Pulse Ox 95 02/02/23 12:24 O2 Del Method Room Air 02/02/23 12:24 Course Vital Signs Vital signs: Vital Signs Temperature 98.7 F 02/02/23 12:24 Pulse Rate 82 02/02/23 12:24 Respiratory Rate 24 02/02/23 12:24 Blood Pressure 164/106 H 02/02/23 12:24 Pulse Oximetry 95 02/02/23 12:24 Oxygen Delivery Method Room Air 02/02/23 12:24 Temperature 98.7 F 02/02/23 12:24 Pulse Rate 82 02/02/23 12:24 Respiratory Rate 24 02/02/23 12:24 Blood Pressure 164/106 H 02/02/23 12:24 Pulse Oximetry 95 02/02/23 12:24 Oxygen Delivery Method Room Air 02/02/23 12:24 MDM - Syncope MDM Narrative Medical decision making narrative: this patient's laboratory testing is stable. She shows no indication of substantial gastrointestinal loss. The bleeding is most consistent with a Adrianna-Draper type of event. I do want her follow up with her other physicians including her gastrointestinal doctor at the other facility. I have reviewed her records from [facility] in there is no indication of any stapling or cauterization during her upper gastrointestinal endoscopy with the reports I got. She is still planning on having pill endoscopy. Her hemodynamics are stable. Her nausea is somewhat improved with meds here. Lab Data Labs: Lab Results 02/02/23 Range/Units 12:30 WBC 12.7 H (4.0-11.0) 10^3/uL RBC 3.40 L (4.20-5.40) 10^6/uL Hgb 8.9 L (12.0-16.0) g/dL Hct 29.0 L (36.0-48.0) % MCV 85.3 (81.0-99.0) fL MCH 26.2 L (26.7-34.0) pg MCHC 30.7 (29.9-35.2) g/dL RDW 17.3 H (11.0-15.0) % Plt Count 406 (150-450) 10^3/uL MPV 10.4 (9.5-13.5) fL Neut % (Auto) 71.3 (43.0-75.0) % Lymph % (Auto) 19.8 L (20.5-60.0) % [place] % (Auto) 7.9 (1.7-12.0) % Eos % (Auto) 0.2 L (0.9-7.0) % Baso % (Auto) 0.4 (0.2-2.0) % Neut # (Auto) 9.1 H (1.4-6.5) 10^3/uL Lymph # (Auto) 2.5 (1.2-3.8) 10^3/uL [place] # (Auto) 1.0 H (0.3-0.8) 10^3/uL Eos # (Auto) 0.0 (0.0-0.7) 10^3/uL Baso # (Auto) 0.1 (0.0-0.1) 10^3/uL Abs Immat Gran (auto) 0.05 H (0.00-0.03) 10^3/uL Imm/Tot Granulo (auto) 0.4 (0.0-0.5) % Sodium 142 (136-145) mmol/L Potassium 4.7 (3.5-5.1) mmol/L Chloride 107 (98-107) mmol/L Carbon Dioxide 27.0 (21.0-32.0) mmol/L Anion Gap 12.7 BUN 30.0 H (7.0-18.0) mg/dL Creatinine 2.21 H (0.55-1.02) mg/dL Est GFR ( Amer) 30 L (>=60) Est GFR (Non-Af Amer) 25 L (>=60) BUN/Creatinine Ratio 13.6 Glucose 72 L (74-106) mg/dL Calcium 8.1 L (8.5-10.1) mg/dL Total Bilirubin 0.1 L (0.2-1.0) mg/dL AST 26 (15-37) U/L ALT 31 (14-59) U/L Alkaline Phosphatase 139 H (46-116) U/L Total Protein 7.3 (6.4-8.2) g/dL Albumin 3.7 (3.4-5.0) g/dL Globulin 3.6 g/dL Albumin/Globulin Ratio 1.0 Discharge Plan Discharge Chief Complaint: Syncope Clinical Impression: Acute upper gastrointestinal bleeding Patient Disposition: Home, Self-Care Time of Disposition Decision: 14:46 Prescriptions / Home Meds: No Action temazepam 15 mg capsule 15 mg PO DAILY zolpidem 10 mg tablet 10 mg PO DAILY quetiapine 100 mg tablet 150 mg PO DAILY sertraline [Zoloft] 100 mg tablet 100 mg PO DAILY tizanidine 4 mg tablet 8 mg PO Q12H gabapentin 300 mg capsule 300 mg PO BID lubiprostone [Amitiza] 24 mcg capsule 24 mcg PO BID amlodipine 10 mg tablet 10 mg PO DAILY losartan 50 mg tablet 50 mg PO DAILY hydrochlorothiazide 25 mg tablet 25 mg PO DAILY alprazolam 1 mg tablet 1 mg PO QID PRN (Reason: anxiety) ondansetron HCl 2 mg/mL solution promethazine 25 mg/mL solution lubiprostone 24 mcg capsule PO oxycodone 5 mg tablet 5 mg PO Q6H PRN (Reason: pain) Patient Comments: PALLIATIVE CARE PT Additional Instructions: take a copy of our labs are UGI doctor has been ongoing update of your hemoglobin count. Continue previous meds. Stand Alone Forms: Portal Instructions Referrals: Physician,Non-Staff, MD [Primary Care Provider] - 1 week
[2023-02-02 13:02] LABS: Alanine Aminotransferase 31 U/L (14-59); Albumin Level 3.7 g/dL (3.4-5.0); Alkaline Phosphatase 139 U/L (46-116); Anion Gap 12.7; Aspartate Amino Transferase 26 U/L (15-37); BUN Creatinine Ratio 13.6; Bilirubin Total 0.1 mg/dL (0.2-1.0); Calcium 8.1 mg/dL (8.5-10.1); Chloride 107 mmol/L (98-107); Estimated GFR (African America 30 (>=60); Estimated GFR (Non-African Ame 25 (>=60); Globulin 3.6 g/dL; Glucose 72 mg/dL (74-106); Potassium 4.7 mmol/L (3.5-5.1); Sodium 142 mmol/L (136-145); Total Protein 7.3 g/dL (6.4-8.2)
--- NOTE | 2023-02-02 13:11 | ECG_ITS ---
[facility] Test Date: 2023-02-02 Pat Name: PRITESH TREJO Department: Room: - Gender: Female Navigation Officer: : 1985 Requested By: [id number] Order Number: [id number] Reading MD: RUTH GALLAGHER Measurements Intervals [place] Rate: 84 P: 57 GA: 188 QRS: 54 QRSD: 92 T: 52 QT: 376 QTc: 418 Interpretive Statements 1100 Sinus rhythm 9110 normal ECG Compared to ECG 12/25/2022 08:16:22 No significant changes Electronically Signed On 02-03-2023 6:39:46 EDT by RUTH GALLAGHER
[2023-02-02] MEDS: PROMETHAZINE HCL 25 MG/ML VIAL 12.5 MG IV ×2 (14:04→15:04)
== END 2023-02-02 15:20 | disposition home or self-care (01) ==
PROVIDERS: Emergency Provider Emergency Medicine Emergency Medical Services
DX: K92.2 Gastrointestinal hemorrhage, unspecified (principal); Z79.899 Other long term (current) drug therapy
CPT/HCPCS: 36415; 36591; 80053; 85025; 93005; 96361; 96374; 96375; 96376; 99285

== ENCOUNTER 2023-03-17 16:25 | Outpatient (REF) | payer MEDICARE, SELFPAY ==
[2023-03-17 16:56] LABS: Anion Gap 15.7; BUN Creatinine Ratio 15.5; Calcium 8.7 mg/dL (8.5-10.1); Carbon Dioxide 20.9 mmol/L (21.0-32.0); Chloride 106 mmol/L (98-107); Estimated GFR (African America 34 (>=60); Estimated GFR (Non-African Ame 28 (>=60); Glucose 207 mg/dL (74-106); Potassium 4.6 mmol/L (3.5-5.1); Sodium 138 mmol/L (136-145)
== END 2023-03-17 16:26 | disposition home or self-care (01) ==
LOC: LAB 16:25
DX: K86.89 Other specified diseases of pancreas (principal); E89.1 Postprocedural hypoinsulinemia; T80.212A Local infection due to central venous catheter, initial encounter
CPT/HCPCS: 36415; 80048

== ENCOUNTER 2023-05-05 10:09 | Emergency (ER) | payer MEDICARE, SELFPAY ==
[2023-05-05 10:14] VITALS: BP 170/100; PULSE 97; RESP 16; TEMP 37.2; O2SAT 98; BMI 24.2
[2023-05-05 11:08] LABS: Basophils Percent Auto 0.3 % (0.2-2.0); Hematocrit 34.2 % (36.0-48.0); Hemoglobin 10.7 g/dL (12.0-16.0); Immature Granulocytes Abs Auto 0.03 10^3/uL (0.00-0.03); Immature Granulocytes Pct Auto 0.3 % (0.0-0.5); Lymphocytes Absolute Auto 2.1 10^3/uL (1.2-3.8); Lymphocytes Percent Auto 17.9 % (20.5-60.0); Mean Corpuscular HGB Conc 31.3 g/dL (29.9-35.2); Mean Corpuscular Hemoglobin 29.2 pg (26.7-34.0); Mean Corpuscular Volume 93.4 fL (81.0-99.0); Mean Platelet Volume 10.8 fL (9.5-13.5); Monocytes Absolute Auto 0.7 10^3/uL (0.3-0.8); Monocytes Percent Auto 6.2 % (1.7-12.0); Neutrophils Absolute Auto 8.7 10^3/uL (1.4-6.5); Neutrophils Percent Auto 75.3 % (43.0-75.0); Platelet Count 302 10^3/uL (150-450); Red Blood Count 3.66 10^6/uL (4.20-5.40); Red Cell Distribution Width 17.2 % (11.0-15.0); White Blood Count 11.5 10^3/uL (4.0-11.0)
[2023-05-05] MEDS: 0.9 % SODIUM CHLORIDE 1,000 ML 1000 ML IV (11:13)
[2023-05-05] MEDS: ONDANSETRON PF 4 MG/2 ML VIAL IV (11:13)
[2023-05-05 11:17] LABS: Alanine Aminotransferase 28 U/L (14-59); Albumin Level 3.9 g/dL (3.4-5.0); Alkaline Phosphatase 126 U/L (46-116); Amylase 27 U/L (25-115); Anion Gap 15.6; Aspartate Amino Transferase 18 U/L (15-37); BUN Creatinine Ratio 14.1; Bilirubin Direct 0.1 mg/dL (0.0-0.2); Bilirubin Total 0.2 mg/dL (0.2-1.0); Carbon Dioxide 21.7 mmol/L (21.0-32.0); Chloride 104 mmol/L (98-107); Estimated GFR (African America 28 (>=60); Estimated GFR (Non-African Ame 23 (>=60); Glucose 183 mg/dL (74-106); Potassium 4.3 mmol/L (3.5-5.1); Sodium 137 mmol/L (136-145); Total Protein 7.9 g/dL (6.4-8.2)
[2023-05-05] MEDS: MORPHINE SULFATE 4 MG/ML VIAL IV (13:02)
--- NOTE | 2023-05-05 13:35 | ED.ABDPAIN1 ---
HPI - Abdominal Pain General Chief Complaint: Abdominal Pain Stated Complaint: ABDOMINAL PAIN/ VOMITTING Time Seen by Provider: 05/05/23 10:53 Source: patient Mode of arrival: walk-in Limitations: no limitations History of Present Illness HPI narrative: 38-year-old female presents for nausea and vomiting and abdominal pain. She has an ongoing history of this issue. She has a port that was placed a week ago and she has a PICC line in her left arm and she has IV Zofran and Phenergan at home. No trauma or fever or hematemesis. No constipation. Related Data Home Medications Medication Instructions Recorded Confirmed alprazolam 1 mg tablet 1 mg PO QID PRN anxiety 12/25/22 12/25/22 amlodipine 10 mg tablet 10 mg PO DAILY 12/25/22 12/25/22 gabapentin 300 mg capsule 300 mg PO BID 12/25/22 12/25/22 hydrochlorothiazide 25 mg tablet 25 mg PO DAILY 12/25/22 12/25/22 losartan 50 mg tablet 50 mg PO DAILY 12/25/22 12/25/22 lubiprostone 24 mcg capsule mcg PO 12/25/22 lubiprostone 24 mcg capsule 24 mcg PO BID 12/25/22 12/25/22 (Amitiza) ondansetron HCl 2 mg/mL mg 12/25/22 intravenous solution oxycodone 5 mg tablet 5 mg PO Q6H PRN pain 12/25/22 12/25/22 promethazine 25 mg/mL injection mg 12/25/22 solution quetiapine 100 mg tablet 150 mg PO DAILY 12/25/22 12/25/22 sertraline 100 mg tablet (Zoloft) 100 mg PO DAILY 12/25/22 12/25/22 temazepam 15 mg capsule 15 mg PO DAILY 12/25/22 12/25/22 tizanidine 4 mg tablet 8 mg PO Q12H 12/25/22 12/25/22 zolpidem 10 mg tablet 10 mg PO DAILY 12/25/22 12/25/22 Allergies Allergy/AdvReac Type Severity Reaction Status Date / Time azithromycin [From Zithromax] Allergy Unknown Verified 12/25/22 06:50 clindamycin Allergy Unknown Verified 12/25/22 06:50 dicyclomine [From Bentyl] Allergy Unknown Verified 05/05/23 12:29 erythromycin base Allergy Unknown Verified 12/25/22 06:50 ketorolac [From Toradol] Allergy Unknown Verified 12/25/22 06:50 meperidine [From Demerol] Allergy Unknown Verified 12/25/22 06:50 metoclopramide [From Reglan] Allergy Unknown Verified 12/25/22 06:50 nitrofurantoin Allergy Unknown Verified 12/25/22 06:50 [From Macrobid] Penicillins Allergy Unknown Verified 12/25/22 06:50 vancomycin Allergy Unknown Verified 12/25/22 06:50 Review of Systems ROS Narrative A ten point review of systems is negative except as noted above. 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 General: The patient appears well and in no apparent distress. Patient is resting comfortably on cart. Skin: Warm, dry, no pallor noted. There is no rash noted. Head: Normocephalic, atraumatic Eye: Normal conjunctiva, no drainage Ears, Nose, Mouth, and Throat: oral mucosa is moist. Nares patent. Cardiovascular: Regular Rate and Rhythm Respiratory: Patient is in no distress, no accessory muscle use, lungs are clear to auscultation, no wheezing, rales or rhonchi Back: non-tender GI: Normal bowel sounds, mild tenderness to palpation, no masses appreciated. No rebound, guarding, or rigidity noted. Musculoskeletal: The patient has no evidence of calf tenderness, no pitting edema, symmetrical pulses noted bilaterally Neurological: A&O, normal speech Psychiatric: Cooperative Constitutional Vital Signs, click to edit/add: Last Vital Signs Temp 99 F 05/05/23 10:14 Pulse 97 H 05/05/23 10:14 Resp 16 05/05/23 10:14 BP 170/100 H 05/05/23 10:14 Pulse Ox 98 05/05/23 10:14 O2 Del Method Room Air 05/05/23 10:14 Course Vital Signs Vital signs: Vital Signs Temperature 99 F 05/05/23 10:14 Pulse Rate 97 H 05/05/23 10:14 Respiratory Rate 16 05/05/23 10:14 Blood Pressure 170/100 H 05/05/23 10:14 Pulse Oximetry 98 05/05/23 10:14 Oxygen Delivery Method Room Air 05/05/23 10:14 Temperature 99 F 05/05/23 10:14 Pulse Rate 97 H 05/05/23 10:14 Respiratory Rate 16 05/05/23 10:14 Blood Pressure 170/100 H 05/05/23 10:14 Pulse Oximetry 98 05/05/23 10:14 Oxygen Delivery Method Room Air 05/05/23 10:14 MDM - Abdominal Pain MDM Narrative Medical decision making narrative: her laboratory analysis is essentially negative. She was given IV fluids and IV morphine and IV Zofran and she is able to be discharged home. Treatment diagnosis and follow-up were discussed with the patient appears Differential Diagnosis Differential diagnosis: Likely abdominal pain, constipation, gastroenteritis and pancreatitis Lab Data Attestation: I reviewed the patient's lab results. Labs: Lab Results 05/05/23 Range/Units 10:25 WBC 11.5 H (4.0-11.0) 10^3/uL RBC 3.66 L (4.20-5.40) 10^6/uL Hgb 10.7 L (12.0-16.0) g/dL Hct 34.2 L (36.0-48.0) % MCV 93.4 (81.0-99.0) fL MCH 29.2 (26.7-34.0) pg MCHC 31.3 (29.9-35.2) g/dL RDW 17.2 H (11.0-15.0) % Plt Count 302 (150-450) 10^3/uL MPV 10.8 (9.5-13.5) fL Neut % (Auto) 75.3 H (43.0-75.0) % Lymph % (Auto) 17.9 L (20.5-60.0) % [place] % (Auto) 6.2 (1.7-12.0) % Eos % (Auto) 0.0 L (0.9-7.0) % Baso % (Auto) 0.3 (0.2-2.0) % Neut # (Auto) 8.7 H (1.4-6.5) 10^3/uL Lymph # (Auto) 2.1 (1.2-3.8) 10^3/uL [place] # (Auto) 0.7 (0.3-0.8) 10^3/uL Eos # (Auto) 0.0 (0.0-0.7) 10^3/uL Baso # (Auto) 0.0 (0.0-0.1) 10^3/uL Abs Immat Gran (auto) 0.03 (0.00-0.03) 10^3/uL Imm/Tot Granulo (auto) 0.3 (0.0-0.5) % Sodium 137 (136-145) mmol/L Potassium 4.3 (3.5-5.1) mmol/L Chloride 104 (98-107) mmol/L Carbon Dioxide 21.7 (21.0-32.0) mmol/L Anion Gap 15.6 BUN 33.0 H (7.0-18.0) mg/dL Creatinine 2.34 H (0.55-1.02) mg/dL Est GFR ( Amer) 28 L (>=60) Est GFR (Non-Af Amer) 23 L (>=60) BUN/Creatinine Ratio 14.1 Glucose 183 H (74-106) mg/dL Calcium 9.0 (8.5-10.1) mg/dL Total Bilirubin 0.2 (0.2-1.0) mg/dL Direct Bilirubin 0.1 (0.0-0.2) mg/dL AST 18 (15-37) U/L ALT 28 (14-59) U/L Alkaline Phosphatase 126 H (46-116) U/L Total Protein 7.9 (6.4-8.2) g/dL Albumin 3.9 (3.4-5.0) g/dL Globulin 4.0 g/dL Albumin/Globulin Ratio 1.0 Amylase 27 (25-115) U/L Lipase 7.0 L (16.0-77.0) U/L Discharge Plan Discharge Chief Complaint: Abdominal Pain Clinical Impression: Abdominal pain Patient Disposition: Home, Self-Care Time of Disposition Decision: 13:34 Condition: Good Mode of Transportation: Private Vehicle Prescriptions / Home Meds: No Action temazepam 15 mg capsule 15 mg PO DAILY zolpidem 10 mg tablet 10 mg PO DAILY quetiapine 100 mg tablet 150 mg PO DAILY sertraline [Zoloft] 100 mg tablet 100 mg PO DAILY tizanidine 4 mg tablet 8 mg PO Q12H gabapentin 300 mg capsule 300 mg PO BID lubiprostone [Amitiza] 24 mcg capsule 24 mcg PO BID amlodipine 10 mg tablet 10 mg PO DAILY losartan 50 mg tablet 50 mg PO DAILY hydrochlorothiazide 25 mg tablet 25 mg PO DAILY alprazolam 1 mg tablet 1 mg PO QID PRN (Reason: anxiety) ondansetron HCl 2 mg/mL solution promethazine 25 mg/mL solution lubiprostone 24 mcg capsule PO oxycodone 5 mg tablet 5 mg PO Q6H PRN (Reason: pain) Patient Comments: PALLIATIVE CARE PT Instructions: Abdominal Pain (ED) Stand Alone Forms: Portal Instructions Referrals: Physician,Non-Staff, MD [Primary Care Provider] - 1 week
== END 2023-05-05 13:48 | disposition home or self-care (01) ==
PROVIDERS: Emergency Provider Emergency Medicine
DX: R10.9 Unspecified abdominal pain (principal); Z79.899 Other long term (current) drug therapy; Z90.81 Acquired absence of spleen; Z90.410 Acquired total absence of pancreas; Z90.49 Acquired absence of other specified parts of digestive tract
CPT/HCPCS: 36415; 80048; 80076; 82150; 83690; 85025; 99284

== ENCOUNTER 2023-05-07 23:58 | Emergency (ER) | payer MEDICARE, SELFPAY ==
[2023-05-08 00:02] VITALS: BP 176/110; PULSE 93; RESP 16; TEMP 36.7; O2SAT 96; BMI 22.8
[2023-05-08] MEDS: ONDANSETRON PF 4 MG/2 ML VIAL IV (01:13)
[2023-05-08] MEDS: 0.9 % SODIUM CHLORIDE 1,000 ML 1000 ML IV (01:13)
--- NOTE | 2023-05-08 01:15 | ED_ITS ---
HPI - Nausea/Vomiting/Diarrhea General Chief complaint: Nausea/Vomiting/Diarrhea Stated complaint: vomiting Time Seen by Provider: 05/08/23 00:28 Source: patient Mode of arrival: walk-in Limitations: no limitations History of Present Illness HPI Narrative: 38-year-old female presents for nausea vomiting abdominal pain. She is well- known to this emergency department and was here a few days ago with similar circumstances. She has a port that she gives herself medications for home. She had cataract surgery in the remote past and states that she is in palliative treatment. The pain is moderate and continuous and she's had this for a week. No fever or blood in her stool or emesis. Related Data Home Medications Medication Instructions Recorded Confirmed alprazolam 1 mg tablet 1 mg PO QID PRN anxiety 12/25/22 12/25/22 amlodipine 10 mg tablet 10 mg PO DAILY 12/25/22 12/25/22 gabapentin 300 mg capsule 300 mg PO BID 12/25/22 12/25/22 hydrochlorothiazide 25 mg tablet 25 mg PO DAILY 12/25/22 12/25/22 losartan 50 mg tablet 50 mg PO DAILY 12/25/22 12/25/22 lubiprostone 24 mcg capsule mcg PO 12/25/22 lubiprostone 24 mcg capsule 24 mcg PO BID 12/25/22 12/25/22 (Amitiza) ondansetron HCl 2 mg/mL mg 12/25/22 intravenous solution oxycodone 5 mg tablet 5 mg PO Q6H PRN pain 12/25/22 12/25/22 promethazine 25 mg/mL injection mg 12/25/22 solution quetiapine 100 mg tablet 150 mg PO DAILY 12/25/22 12/25/22 sertraline 100 mg tablet (Zoloft) 100 mg PO DAILY 12/25/22 12/25/22 temazepam 15 mg capsule 15 mg PO DAILY 12/25/22 12/25/22 tizanidine 4 mg tablet 8 mg PO Q12H 12/25/22 12/25/22 zolpidem 10 mg tablet 10 mg PO DAILY 12/25/22 12/25/22 Allergies Allergy/AdvReac Type Severity Reaction Status Date / Time azithromycin [From Zithromax] Allergy Unknown Verified 12/25/22 06:50 clindamycin Allergy Unknown Verified 07/21/23 06:50 dicyclomine [From Bentyl] Allergy Unknown Verified 05/05/23 12:29 erythromycin base Allergy Unknown Verified 12/25/22 06:50 ketorolac [From Toradol] Allergy Unknown Verified 12/25/22 06:50 meperidine [From Demerol] Allergy Unknown Verified 12/25/22 06:50 metoclopramide [From Reglan] Allergy Unknown Verified 12/25/22 06:50 nitrofurantoin Allergy Unknown Verified 12/25/22 06:50 [From Macrobid] Penicillins Allergy Unknown Verified 12/25/22 06:50 vancomycin Allergy Unknown Verified 12/25/22 06:50 Review of Systems ROS Narrative A ten point review of systems is negative except as noted above. 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 General: The patient appears well and in no apparent distress. Patient is resting comfortably on cart. Skin: Warm, dry, no pallor noted. There is no rash noted. Head: Normocephalic, atraumatic Eye: Normal conjunctiva, no drainage Ears, Nose, Mouth, and Throat: oral mucosa is moist. Nares patent. Cardiovascular: Regular Rate and Rhythm Respiratory: Patient is in no distress, no accessory muscle use, lungs are clear to auscultation, no wheezing, rales or rhonchi Back: non-tender GI: soft, nondistended, no masses. Mild tenderness in the midabdomen. Musculoskeletal: The patient has no evidence of calf tenderness, no pitting edema, symmetrical pulses noted bilaterally Neurological: A&O, normal speech Psychiatric: Cooperative Constitutional Vital Signs, click to edit/add: Last Vital Signs Temp 98.1 F 05/08/23 00:02 Pulse 97 H 05/08/23 02:49 Resp 20 05/08/23 02:49 BP 210/108 H 05/08/23 02:49 Pulse Ox 97 05/08/23 02:49 O2 Del Method Room Air 05/08/23 02:49 Course Vital Signs Vital signs: Vital Signs Temperature 98.1 F 05/08/23 00:02 Pulse Rate 93 H 05/08/23 00:02 Respiratory Rate 16 05/08/23 00:02 Blood Pressure 176/110 H 05/08/23 00:02 Pulse Oximetry 96 05/08/23 00:02 Oxygen Delivery Method Room Air 05/08/23 00:02 Temperature 98.1 F 05/08/23 00:02 Pulse Rate 97 H 05/08/23 02:49 Respiratory Rate 20 05/08/23 02:49 Blood Pressure 210/108 H 05/08/23 02:49 Pulse Oximetry 97 05/08/23 02:49 Oxygen Delivery Method Room Air 05/08/23 02:49 MDM - Nausea/Vomiting/Diarrhea MDM Narrative Medical decision making narrative: the laboratory analysis is again essentially normal and she is able to be discharged home after receiving IV pain medication and IV hydralazine. Findings were discussed with the patient Differential Diagnosis Differential diagnosis: Likely gastroenteritis, dehydration and other (chronic abdominal pain) Medical Records Attestation: I reviewed the patient's medical records. Lab Data Attestation: I reviewed the patient's lab results. Labs: Lab Results 05/08/23 Range/Units 01:00 WBC 10.3 (4.0-11.0) 10^3/uL RBC 3.52 L (4.20-5.40) 10^6/uL Hgb 10.4 L (12.0-16.0) g/dL Hct 33.7 L (36.0-48.0) % MCV 95.7 (81.0-99.0) fL MCH 29.5 (26.7-34.0) pg MCHC 30.9 (29.9-35.2) g/dL RDW 16.9 H (11.0-15.0) % Plt Count 300 (150-450) 10^3/uL MPV 10.7 (9.5-13.5) fL Neut % (Auto) 63.7 (43.0-75.0) % Lymph % (Auto) 24.6 (20.5-60.0) % [place] % (Auto) 10.3 (1.7-12.0) % Eos % (Auto) 0.3 L (0.9-7.0) % Baso % (Auto) 0.8 (0.2-2.0) % Neut # (Auto) 6.6 H (1.4-6.5) 10^3/uL Lymph # (Auto) 2.5 (1.2-3.8) 10^3/uL [place] # (Auto) 1.1 H (0.3-0.8) 10^3/uL Eos # (Auto) 0.0 (0.0-0.7) 10^3/uL Baso # (Auto) 0.1 (0.0-0.1) 10^3/uL Abs Immat Gran (auto) 0.03 (0.00-0.03) 10^3/uL Imm/Tot Granulo (auto) 0.3 (0.0-0.5) % Sodium 138 (136-145) mmol/L Potassium 3.9 (3.5-5.1) mmol/L Chloride 104 (98-107) mmol/L Carbon Dioxide 22.4 (21.0-32.0) mmol/L Anion Gap 15.5 BUN 30.0 H (7.0-18.0) mg/dL Creatinine 1.99 H (0.55-1.02) mg/dL Est GFR ( Amer) 34 L (>=60) Est GFR (Non-Af Amer) 28 L (>=60) BUN/Creatinine Ratio 15.1 Glucose 217 H (74-106) mg/dL Calcium 8.4 L (8.5-10.1) mg/dL Lipase 7.0 L (16.0-77.0) U/L Discharge Plan Discharge Chief Complaint: Nausea/Vomiting/Diarrhea Clinical Impression: Nausea and vomiting Patient Disposition: Home, Self-Care Time of Disposition Decision: 03:25 Condition: Good Mode of Transportation: Private Vehicle Prescriptions / Home Meds: No Action temazepam 15 mg capsule 15 mg PO DAILY zolpidem 10 mg tablet 10 mg PO DAILY quetiapine 100 mg tablet 150 mg PO DAILY sertraline [Zoloft] 100 mg tablet 100 mg PO DAILY tizanidine 4 mg tablet 8 mg PO Q12H gabapentin 300 mg capsule 300 mg PO BID lubiprostone [Amitiza] 24 mcg capsule 24 mcg PO BID amlodipine 10 mg tablet 10 mg PO DAILY losartan 50 mg tablet 50 mg PO DAILY hydrochlorothiazide 25 mg tablet 25 mg PO DAILY alprazolam 1 mg tablet 1 mg PO QID PRN (Reason: anxiety) ondansetron HCl 2 mg/mL solution promethazine 25 mg/mL solution lubiprostone 24 mcg capsule PO oxycodone 5 mg tablet 5 mg PO Q6H PRN (Reason: pain) Patient Comments: PALLIATIVE CARE PT Instructions: Acute Nausea and Vomiting (ED) Stand Alone Forms: Portal Instructions Referrals: Physician,Non-Staff, MD [Primary Care Provider] - 1 week Critical Care Time Critical Care Time Total Critical Care Time: 35 Attestation: Due to the high probability of sudden and clinically significant deterioration in the patient's condition he/she required the highest level of my preparedness to intervene urgently I provided critical care time including documentation time, medication orders and management, reevaluation, vital sign assessment, ordering and reviewing of lab tests, ordering and reviewing of x-ray studies, and admission orders. Aggregate critical care time is 35 minutes including only time during which I was engaged in work directly related to his/her care and did not include time spent treating other patients simultaneously.
[2023-05-08 01:20] VITALS: BP 190/120; PULSE 90; RESP 16; O2SAT 95
[2023-05-08 01:28] LABS: Basophils Absolute Auto 0.1 10^3/uL (0.0-0.1); Basophils Percent Auto 0.8 % (0.2-2.0); Eosinophils Percent Auto 0.3 % (0.9-7.0); Hematocrit 33.7 % (36.0-48.0); Hemoglobin 10.4 g/dL (12.0-16.0); Immature Granulocytes Abs Auto 0.03 10^3/uL (0.00-0.03); Immature Granulocytes Pct Auto 0.3 % (0.0-0.5); Lymphocytes Absolute Auto 2.5 10^3/uL (1.2-3.8); Lymphocytes Percent Auto 24.6 % (20.5-60.0); Mean Corpuscular HGB Conc 30.9 g/dL (29.9-35.2); Mean Corpuscular Hemoglobin 29.5 pg (26.7-34.0); Mean Corpuscular Volume 95.7 fL (81.0-99.0); Mean Platelet Volume 10.7 fL (9.5-13.5); Monocytes Absolute Auto 1.1 10^3/uL (0.3-0.8); Monocytes Percent Auto 10.3 % (1.7-12.0); Neutrophils Absolute Auto 6.6 10^3/uL (1.4-6.5); Neutrophils Percent Auto 63.7 % (43.0-75.0); Platelet Count 300 10^3/uL (150-450); Red Blood Count 3.52 10^6/uL (4.20-5.40); Red Cell Distribution Width 16.9 % (11.0-15.0); White Blood Count 10.3 10^3/uL (4.0-11.0)
[2023-05-08 01:40] LABS: Anion Gap 15.5; BUN Creatinine Ratio 15.1; Calcium 8.4 mg/dL (8.5-10.1); Carbon Dioxide 22.4 mmol/L (21.0-32.0); Chloride 104 mmol/L (98-107); Estimated GFR (African America 34 (>=60); Estimated GFR (Non-African Ame 28 (>=60); Glucose 217 mg/dL (74-106); Potassium 3.9 mmol/L (3.5-5.1); Sodium 138 mmol/L (136-145)
[2023-05-08] MEDS: HYDRALAZINE HCL 20 MG/ML VIAL 10 MG IVP ×2 (01:47→03:29)
[2023-05-08] MEDS: PROMETHAZINE HCL 25 MG/ML VIAL 12.5 MG IV (02:44)
[2023-05-08 02:49] VITALS: BP 210/108; PULSE 97; RESP 20; O2SAT 97
[2023-05-08] MEDS: MORPHINE SULFATE 4 MG/ML VIAL IV ×2 (03:28→04:20)
[2023-05-08 04:12] VITALS: BP 198/100
[2023-05-08] MEDS: HEPARIN SODIUM (PORCINE) PF LOCK FLUSH 500 UNIT/5 ML SYRINGE 250 UNIT IV (04:35)
== END 2023-05-08 04:35 | disposition home or self-care (01) ==
PROVIDERS: Emergency Provider Emergency Medicine
DX: R11.2 Nausea with vomiting, unspecified (principal); Z79.899 Other long term (current) drug therapy; Z90.81 Acquired absence of spleen; Z90.410 Acquired total absence of pancreas; Z90.49 Acquired absence of other specified parts of digestive tract
CPT/HCPCS: 36415; 80048; 83690; 85025; 96361; 96374; 96375; 96376; 99284

== ENCOUNTER 2024-11-22 05:23 | Emergency (ER) | payer MEDICARE, SELFPAY ==
[2024-11-22] VITALS (36 sets, daily range): BP systolic 161–207; BP diastolic 121–135; PULSE 81; TEMP 36.8; O2SAT 92–99; BMI 22.8
--- OUTSIDE RECORDS SUMMARY | 2024-11-22 05:47 | XMS_ITS | CCD ---
Author Organization [facility] CliniSyut Care Team Providers Care Medical Affairs Specialist Name Role Phone Huber Zimmer Primary Care Provider [phone] No Family, Physician Primary Care Unavailable HUBER ZIMMER Primary Care Unavailable HUBER ZIMMER Primary Care Unavailable Guerrero Don Primary Care Provider UnavailJENELLE Haney Primary Care Unavailable UNKNOWN, DOC Referring Unavailable Pavlock DO, Max L Primary Care Provider Unavaila ble Pavlock DO, Max L Primary Care Provider Unavaila ble PAVAMARJIT, MAX L Primary Care Unavailable JOCELYNE ECDILLO Referring Unavailable BRITNI KENDALL Attending Unavailable BRITNI KENDALL Admitting Unavailable Unavailable Primary Care Provider UnavailAdelina Cunha MD Primary Care Provider SELF, REFERRED Referring Unavailable JESSE VOGT Admitting Unavailable JESSE VOGT Attending Unavailable JONATHON Primary Care Unavailable Jalyn HOLT Primary Care Physician ADELINA AMADOR Primary Care Unavailable AFRICA WHITE Attending Unavailable Jalyn Holt Unavailable MapLio coleya Unavailable Patti Daley Unavailable Liz Connors Unavailable Lyssa Pendleton Unavailable Lucian Schuster ([facility]) Primary Care Provider [phone] Richard RN, Alma (Rn) Unavailable Unavailable Patti Daley Jr. Unavailable Jalyn Sanz DO Primary Care Provider Alma Ramos RN (Rn) Unavailable Unavailable Patti Daley Jr. Unavailable [phone] Florencia, DO Guerrero Robledo Primary Care Provider [phone] SWAPNIL Rm Attending Provider DO Jonathon Jalyn E Primary Care Provider [phone] DO Sukhwinder Styles Emergency Provider [phone] MD Nico Wheeler Emergency Provider [phone] Alma Ramos RN (Rn) Unavailable Unavailable Edi Moss DO, David L Unavailable Yvon SZYMANSKI Jalyn Primary Care Provider Le, Ender K Attending Unavailable Provider, Unlisted Primary Care Unavailable Le, Ender K Admitting Unavailable Le, Ender K Admitting Unavailable Le, Ender K Attending Unavailable Provider, None Primary Care Unavailable Edie Stuart Unavailable Jonathon SZYMANSKI Jalyn Primary Care Provider DO Jalyn Holt Attending Provider Alma Ramos RN (Rn) Unavailable Unavailable Edi Moss DO, David L Unavailable Yvon SZYMANSKI Jalyn Primary Care Provider Jonathon SZYMANSKI Jalyn Primary Care Provider DO Guerrero Don Primary Care Provider [phone] SWAPNIL Rm Attending Provider DO Ninoska Holtlin E Primary Care Provider [phone] DO Aravind Chandler Emergency Provider DO Ronny Gastelum Admit Provider DO Ronny Gastelum Attending Provider [phone] Angela Valentine Unavailable Adelina Amador Unavailable Paula Cerna Unavailable UnavailDr. Adelina Cunha Primary Care Unavailab salty Cerna, Ms. Paula Ma Attending Unavailable CHERYL EAST Referring Unavailable LUCIAN SCHUSTER ([facility]) Primary Care Unavailable CRUZITO, CHERYL Referring Unavailable ELSA SAN Referring Unavailable JAYCOB LLANES Admitting Unavailable PATTI BETHEA Attending Unavailable FERN COLORADO Attending Unavailable CRUZITO, CHERYL Referring Unavailable CRUZITO, CHERYL Referring Unavailable FERN [place] Attending Unavailable AMELIA LUCIAN Brett ([facility]) Primary Care Unavailable CRUZITO, CHERYL Referring Unavailable CRUZITO, CHERYL Admitting Unavailable CRUZITO, CHERYL Attending Unavailable CRUZITO, CHERYL Attending Unavailable AMELIA LUCIAN Brett ([facility]) Primary Care Unavailable CRUZITO, CHERYL Referring Unavailable CRUZITO, CHERYL Referring Unavailable CRUZITO, CHERYL Attending Unavailable CRUZITO, CHERYL Referring Unavailable CRUZITO, CHERYL Referring Unavailable PATTI BETHEA Referring Unavailable MISSAEL WEIR Attending Unavailable CRUZITO, CHERYL Referring Unavailable CRUZITO, CHERYL Attending Unavailable AMELIA LUCIAN Brett ([facility]) Primary Care Unavailable EARNEST MORILLO Referring Unavailable AMELIA LUCIAN M ([facility]) Primary Care Unavailable EARNEST MORILLO Referring Unavailable LETTY HERNANDEZ Attending Unavailable DO Jonathon Jalyn E Primary Care Provider DO Jalyn Holt Attending Provider MD Alejandra Cespedes Attending Provider [facility] Primary Care Unavailable DR GABRIELLA CARIAS Admitting Unavailable MARI Bansal, DR QUIROZ Attending Unavailable MR POLY ROLDAN Consulting Unavailable JUDY AARON Attending Unavailable [facility], JALYN Primary Care Unavailable JUDY AARON Consulting Unavailable JUDY AARON Admitting Unavailable ARVIN RAMAN Consulting Unavailable HILTON COLE Attending Unavailable HILTON COLE Admitting Unavailable [facility] JAL[facility] Primary Care Unavailable DR MONTANA HANNON Consulting Unavailable HILTON COLE Consulting Unavailable [facility], JALYN Primary Care Unavailable LIAM, DR LARRY Solis Attending Unavailable LIAM, DR LARRY Solis Consulting Unavailable DR LARRY WHEELER Admitting Unavailable MALCOM WESTFALL Consulting Unavailable STEVO STROUD Consulting Unavailable SCHWERER, JALYN Primary Care Unavailable ALEJANDRA HUBER Attending Unavailable ALEJANDRA HUBER Admitting Unavailable ANA STRANGE Consulting Unavailable DIAB ., ALEJANDRA Consulting Unavailable MARKY SHIELDS Consulting Unavailable SCHWERER, JALYN Primary Care Unavailable JUAN MANUEL, DR ANDREW Mccartney Consulting Unavailabl e JUAN MANUEL, DR ANDREW Mccartney Attending Unavailabl e JUAN MANUEL, DR ANDREW Mccartney Admitting Unavailabl e CATHERINE TELLO Consulting Unavailable NATALIA ., HILTON Attending Unavailable NATALIA ., HILTON Admitting Unavailable SCHWERER, JALYN Primary Care Unavailable HAY ., DR QUIROZ Consulting Unavailable JUDY AARON Consulting Unavailable NATALIA ., HILTON Consulting Unavailable ADELINA KHANNA Consulting Unavailable LUANNESTEVO LE Consulting Unavailable SCHWERER, JALYN Primary Care Unavailable HAY ., DR QUIROZ Attending Unavailable HAY ., DR QUIROZ Admitting Unavailable HAY ., DR QUIROZ Consulting Unavailable DAJUANRITESH RODRIGUEZ Consulting Unavailable SCHWERER, JALYN Primary Care Unavailable MISC, DR DEMPSEY Consulting Unavailable MISC, DR DEMPSEY Attending Unavailable MISC, DR DEMPSEY Admitting Unavailable SCHWERER, JALYN Primary Care Unavailable HOY ., DR MIRANDA Consulting Unavailable HOY ., DR MIRANDA Attending Unavailable MARKER ., DR VÁSQUEZ Procedure Practitioner Unav ailable HOLucy ., DR MIRANDA Admitting Unavailable ACE, DR PATTI Cueva Consulting Unavailable NADERER, DR ARCENIO Hunter Consulting Unavailable GRECHNY ., EDUARDO RAMÍREZ Consulting Unavailabl e HAY ., DR QUIROZ Consulting Unavailable MARKER ., DR VÁSQUEZ Consulting Unavailable MONTANA VALVERDE Consulting Unavailable NATALIA ., HILTON Consulting Unavailable SISTER, ROSMERY Consulting Unavailable SCHWERER, JALYN Primary Care Unavailable ASTUDILLO ., DR JEY Berrios Attending Unavailable HOY ., DR MIRANDA Consulting Unavailable ASTUDILLO ., DR JEY Berrios Admitting Unavailable ASTUDILLO ., DR JEY Berrios Consulting Unavailable ZIEBER, DR MONTANA Solis Consulting Unavailable NILL ., DR AWAD Consulting Unavailable NATALIA ., HILTON Consulting Unavailable Bobby, Dada Consulting Unavailable SISTER, ROSMERY Consulting Unavailable SCHWERER, JALYN Primary Care Unavailable JUAN MANUEL, DR ANDREW Mccartney Consulting Unavailabl e JUAN MANUEL, DR ANDREW Mccartney Attending Unavailabl e JUAN MANUEL, DR ANDREW Mccartney Admitting Unavailabl e SCHWERER, JALYN Primary Care Unavailable OZZIE SANCHEZ Attending Unavailable NANDO ., OZZIE Admitting Unavailable PATTI GUADALUPE Consulting Unavailable OZZIE SANCHEZ Consulting Unavailable SCHWERER, JALYN Primary Care Unavailable HAY ., DR QUIROZ Admitting Unavailable HAY ., DR QUIROZ Consulting Unavailable HAY ., DR QUIROZ Attending Unavailable Schwerer DO, Jalyn Primary Care Provider Schwerer, DO Jalyn E Primary Care Provider [phone] DO Jaime Oliver Emergency Provider [phone] [facility] Max L Primary Care Provider SWAPNIL Rm Attending Provider Schwerer, DO Jalyn E Primary Care Provider [phone] DO George Núñez Emergency Provider MD Ncio Wheeler Emergency Provider [phone] SWAPNIL Stuart Emergency Provider [phone] Poly Morgan Unavailable RITESH RODRIGUEZ Referring Unavailable SCHWERER, JALYN Primary Care Unavailable TAMY SANTIAGO Admitting Unavailable TAMY SANTIAGO Attending Unavailable RITESH RODRIGUEZ Referring Unavailable SCHWERER, JALYN Primary Care Unavailable GEORGE FIGUEREDO Attending Unavailable SCHWERER, JALYN Primary Care Unavailable [facility], Max L Primary Care Provider SWAPNIL Rm Attending Provider MD Poly Morgan Attending Provider Schwerer, DO Jalyn E Primary Care Provider [phone] MD Poly Morgan Attending Provider [phone] SCHWERER, JALYN Primary Care Unavailable MARILIA SANTOS Attending Unavailable MAPUS, TONDRA Referring Unavailable SCHWERER, JALYN Primary Care Unavailable DEVAUL, LURDES Referring Unavailable SCHWERER, JALYN Primary Care Unavailable SCHWERER, JALYN Primary Care Unavailable MARKY CEDILLO Attending Unavailable ISACC, NISHANT U Admitting Unavailable MARKY CEDILLO Attending Unavailable MARKY CEDILLO Referring Unavailable SCHWERER, JALYN Primary Care Unavailable SCHWERER, JALYN Primary Care Unavailable JOSSELINE HUBER Attending Unavailable DEXTER, NISHANT U Admitting Unavailable LIVIER HOLLEY Consulting Unavailable SCHWERER, JALYN Referring Unavailable SCHWERER, JALYN Primary Care Unavailable CHANTELL MOCTEZUMA Attending Unavailable SCHWERER, JALYN Referring Unavailable SCHWERER, JALYN Primary Care Unavailable SCHWERER, JALYN Referring Unavailable SCHWERER, JALYN Primary Care Unavailable JOSSELINE HUBER Attending Unavailable JOSSELINE HUBER Referring Unavailable SCHWERER, JALYN Primary Care Unavailable SCHWERER, JALYN Referring Unavailable SCHWERER, JALYN Primary Care Unavailable FAHAD MTZ Attending Unavailable SCHWERER, JALYN Primary Care Unavailable SCHWERER, JALYN Primary Care Unavailable TIFFANY SHRESTHA Attending Unavailable MATEOLARRY Admitting Unavailable MATEOLARRY Attending Unavailable SCHWERER, JALYN Primary Care Unavailable ELE GILLETTE Consulting Unavailable MATEOLARRY Attending Unavailable SCHWERER, JALYN Primary Care Unavailable LARRY GALINDO Admitting Unavailable SCHWERER, JALYN Primary Care Unavailable FAHAD MTZ Attending Unavailable SCHWERER, JALYN Primary Care Unavailable LARRY PEREZ Attending Unavailable SCHWERER, JALYN Primary Care Unavailable KATHY PEARCE Attending Unavailable SCHWERER, JALYN Primary Care Unavailable KATERYNA ANGUIANO Attending Unavailable SCHWERER, JALYN Primary Care Unavailable SCHWERER, JALYN Primary Care Unavailable FAHAD MTZ Attending Unavailable Schwerer DO, Jalyn Primary Care Provider Daniel Cuevas DO Unavailable Schwerer DO, Jalyn E Primary Care Provider [phone] Schwerer DO, Jalyn E Other Provider Daniel Cuevas DO Attending Provider Schwerer DO, Jalyn Primary Care Provider [phone] Schwerer DO, Jalyn E Primary Care Provider [phone] Daniel Cuevas DO Attending Provider Jovanny Biggs MD Emergency Provider Schwerer DO, Jalyn E Primary Care Provider [phone] Jovanny Biggs MD Emergency Provider [phone] Antonino Delgado MD Attending Provider [phone] Schwerer, Jalyn E Consulting Unavailable Murcek, Daniel Admitting Unavailable Murcek, Daniel Attending Unavailable Schwerer, Jalyn E Primary Care Unavailable PrintAntonino ayala Admitting Unavailable Printy, Antonino Attending Unavailable Schwerer, Jalyn E Primary Care Unavailable Murcek, Daniel Admitting Unavailable Murcek, Daniel Attending Unavailable Schwerer, Jalyn E Primary Care Unavailable Printlucy, Antonino Admitting Unavailable Printy, Antonino Attending Unavailable Schwerer, Jalyn E Primary Care Unavailable Jovanny Biggs Jr Admitting Unavailable Jovanny Biggs Jr Attending Unavailable Schwerer, Jalyn E Primary Care Unavailable Schwerer DO, Jalyn Primary Care Provider [phone] ANTONINO DELGADO Attending Unavailable MURCEK, DANIEL W Attending Unavailable SCHWERER, JALYN Referring Unavailable MURCEK, DANIEL W Attending Unavailable MURCEK, DANIEL W Attending Unavailable PRINTYANTONINO Attending Unavailable Schwerer DO, Jalyn E Primary Care Provider Schwerer DO, Jalyn Durham Primary Care U navailable Reece STYLES, Keisha Hoang Attending Unavail able Reece STYLES, Keisha Hoang Admitting Unavail able Schwerer DO, Jalyn Brittanie Primary Care U navailable DeVaul CARDIOLOGY TECH-ASSISTED LIVING NURSING DIRECTOR, Lurdes Epstein Attending Unav zahida Pereira MD, Samir Cordova Attending Unavailab le Schwerer DO, Jalyn Durham Primary Care U navailable Schwerer DO, Jalyn Durham Primary Care U navailable Ezequiel STYLES, Danii Attending Unavailable Ezequiel STYLES, Danii Admitting Unavailable Uday Kingsley MD Consulting Unavaila ble Schwerer DO, Jalyn Durham Primary Care U navailable Rossi STYLES, Sandip Attending Unavailable Rossi STYLES, Sandip Admitting Unavailable Sandi CARDIOLOGY TECH-ASSISTED LIVING NURSING DIRECTOR, Lashaun Bales Consulting Unavailable Yi CARDIOLOGY TECH-ASSISTED LIVING NURSING DIRECTOR, Oscar Buitrago Consulting Un available DeVaul CARDIOLOGY TECH-ASSISTED LIVING NURSING DIRECTOR, Lurdes Epstein Consulting Unav zahida Pereira MD, Samir Cordova Attending Unavailab le Schwerer DO, [facility] DO, [facility] Care U [facility], Evette Vale Attending Allison vailable Schwerer DO, [facility] Care U [facility] Evette Vale Attending Allison vailable Schwerer DO, [facility] Primary Care U [facility], Evette Vale Attending Allison vailable Schwerer DO, [facility] Care U [facility], Evette Vale Attending Allison vailable Schwerer DO, [facility] Care U [facility], Evette Vale Attending Allison vailable Schwerer DO, [facility] Care U [facility], Evette Vale Attending Allison vailable Schwerer DO, [facility] Care U [facility], Evette Vale Attending Allison vailable Schwerer DO, [facility] Care U [facility], Evette Vale Attending Allison vailable Schwerer DO, [facility] Care U [facility], Evette Vale Attending Allison vailable Schwerer DO, [facility] Primary Care U [facility]rez [facility], Mary Lou Huitron Referring Ramandeep Islas MD, Edie Keen Attending Unavailable Kelli STYLES, Samir Cordova Attending Unavailab le Schwerer DO, [facility] Primary Care U [facility] Schwerer DO, [facility] Primary Care U [facility] Teetee STYLES, Uday Mustafa Attending Unavaila ble Allergies Allergy Classification Reported Allergen(s) Allergy Type Date of Onset Reaction(s) Facility Anticholinergics (4 sources) Dicyclomine Drug Allergy Other (See Comments) [facility] Cephalosporins (antibiotic) (8 sources) Cephalexin Drug Allergy 06-29-2 013 Shortness Of Breath, Rash [facility] DOPamine Antagonists (4 sources) Metoclopramide Drug Allergy Nausea And Vomiting [facility] Glycopeptides (antibiotic) (4 sources) Vancomycin Drug Allergy Anaphylaxis [facility] HMG-CoA Reductase Inhibitors (statins) (4 sources) atorvastatin Drug Allergy [facility] Macrolides (antibiotic) (4 sources) Erythromycin Drug Allergy Anaphylaxis [facility] Nitrofurantoin (4 sources) Nitrofurantoin Drug Allergy Anaphylaxis [facility] NSAIDs (4 sources) Ketorolac Drug Allergy Rash [facility] Opioid Agonists (4 sources) Meperidine Drug Allergy [facility] Penicillins (antibiotic) (4 sources) Penicillins Drug Allergy Anaphylaxis [facility] Quinolones (antibiotic) (4 sources) Ciprofloxacin Drug Allergy [facility] Sulfamethoxazole / Trimethoprim (4 sources) Sulfamethoxazole / Trimethoprim Drug Allergy Anaphylaxis [facility] (12 sources) atorvastatin Drug Allergy [place] (20 sources) Cefadroxil; Translations: [CEFADROXIL] Drug Allergy Hives, Swelling, Itching, Shortness of Breath, Other (See Comments), Anaphylaxis, Rash [place], [place] (20 sources) Cephalexin; Translations: [Cephalexin] Drug Allergy Shortness Of Breath, Rash, Unknown (qualifier value), Other, Anaphylaxis [place] (20 sources) Ciprofloxacin; Translations: [ciprofloxacin] Drug Allergy Anaphylactic shock, Rash, Other, Anaphylaxis, Other (See Comments), Shortness Of Breath [place] (20 sources) Dicyclomine Drug Allergy Other (See Comments) [place] (20 sources) Erythromycin; Translations: [erythromycin] Drug Allergy Anaphylaxis, Anaphylactic shock, Hives, Swelling, Itching, Shortness of Breath, Other, Other (See Comments), Rash [place] (20 sources) Ketorolac Drug Allergy [place] (20 sources) Meperidine; Translations: [meperidine] Drug Allergy 010 Other (See Comments), Confusion [place] Comment on above: kept me awake - di d not sleep for 3 days straight (20 sources) Metoclopramide; Translations: [metoclopramide] Drug Allergy Nausea And Vomiting, Unknown (qualifier value), Rash, Other, Vomiting, Hives [place] (20 sources) Nitrofurantoin; Translations: [NITROFURANTOIN] Drug Allergy Anaphylaxis, Rash, Other (See Comments), Shortness of breath [place] (20 sources) Penicillins; Translations: [penicillins] Propensity to adverse reactions to drug Anaphylaxis [place] (20 sources) Sulfamethoxazole / Trimethoprim; Translations: [sulfamethoxazole-t rimethoprim] Drug Allergy 012 Anaphylaxis, Anaphylactic shock, Other, Other (See Comments), Rash, Shortness Of Breath [place] (20 sources) Vancomycin; Translations: [vancomycin] Drug Allergy Anaphylaxis, Hives, Other, Rash, Shortness Of Breath [place] (20 sources) Clindamycin/Lincomy paulie Propensity to adverse reactions to drug 013 Anaphylaxis [place] (15 sources) Albuterol Drug Allergy 021 Unknown [facility] Work Phone: (20 sources) chlorproMAZINE; Translations: [chlorpromazine] Drug Allergy 013 Other (See Comments), Unknown (qualifier value) [facility] [employer] Phone: Comment on above: swelling at the site (20 sources) Dicyclomine; Translations: [dicyclomine] Drug Allergy 013 Other (See Comments), Anaphylaxis, Rash, Other: See Comments, Other [facility] (17 sources) Iothalamate Drug Allergy 012 Anaphylaxis [facility] [employer] Phone: (20 sources) metroNIDAZOLE; Translations: [metronidazole] Drug Allergy 003 Anaphylaxis, Other (See Comments), Anaphylactic shock, Other: See Comments, Shortness of Breath [employer] Work Phone: (15 sources) pioglitazone Drug Allergy 010 Rash [employer] Work Phone: (20 sources) Sulfamethoxazole; Translations: [SULFAMETHOXAZOLE] Drug Allergy 010 Other (See Comments), Rash [employer] Work Phone: (20 sources) Trimethoprim; Translations: [TRIMETHOPRIM] Drug Allergy 020 Other (See Comments), Hives, Other [employer] Work Phone: (3 sources) Amino Acids; Translations: [LISINOPRIL] Drug Allergy 013 [facility] Repository (1 source) Cefadroxil Drug Allergy [facility] Rep[facility] (20 sources) Cephalexin Drug Allergy 012 breathing issues and rash [facility] Repository (1 source) Ciprofloxacin Drug Allergy [facility] Repository (20 sources) Clindamycin; Translations: [CLINDAMYCIN] Drug Allergy 009 Anaphylaxis, Anaphylaxis, breathing issues and rash [facility] Repository (4 sources) Dicyclomine; Translations: [Bentyl] Drug Allergy 013 [facility] Repository (1 source) Erythromycin Drug Allergy [facility] Repository (4 sources) levoFLOXacin; Translations: [LEVOFLOXACIN] Drug Allergy [facility] Repository (1 source) levoFLOXacin Drug Allergy 014 [facility] Repository (4 sources) Meperidine; Translations: [Demerol] Drug Allergy [facility] Repository (3 sources) Nitrofurantoin; Translations: [Macrobid] Drug Allergy [facility] Repository (2 sources) Penicillins Drug allergy (disorder) [facility] Repository (2 sources) Sulfamethoxazole / Trimethoprim Drug Allergy [facility] Repository (3 sources) Vancomycin; Translations: [VANCOMYCIN ANALOGUES] Drug Allergy [facility] Repository (1 source) KETORLAC; Translations: [KETORLAC] Propensity to adverse reactions (disorder) [facility] Repository (20 sources) Azithromycin; Translations: [azithromycin] Drug Allergy 012 Other, Other (See Comments), Rash, Shortness Of Breath [facility] [employer] Other (20 sources) Clindamycin; Translations: [clindamycin] Drug Allergy Anaphylactic shock, Hives, Other, Anaphylaxis [facility] [employer] Other (20 sources) Ketorolac; Translations: [ketorolac] Drug Allergy 015 Unknown (qualifier value), Rash [facility] [place] (20 sources) NITROFURANTOIN, MACROCRYSTALS / Nitrofurantoin, Monohydrate Drug Allergy 010 Shortness of Breath, Other (See Comments), Anaphylaxis [facility] (20 sources) Penicillin V Drug Allergy 024 breathing issues and rash [facility] (20 sources) Dura-Cuf Drug allergy 024 breathing issues and rash [facility] (20 sources) levoFLOXacin Drug Allergy Hives, Swelling, Itching, Shortness of Breath, Rash, Anaphylaxis [facility] (20 sources) Meperidine; Translations: [MEPERIDINE (PF)] Drug Allergy 010 Intolerance, Other (See Comments) [facility] (20 sources) Metoclopramide; Translations: [METOCLOPRAMIDE HCL] Drug Allergy 015 Hives, Other (See Comments) [facility] (20 sources) Penicillins Propensity to adverse reactions Vomiting, Anaphylaxis, Hives, Rash, Shortness Of Breath [facility] (20 sources) pioglitazone; Translations: [PIOGLITAZONE HCL] Drug Allergy Rash [facility] Work Phone: (20 sources) erythromycin base; Translations: [Erythromycin Base] Allergy to substance Anaphylaxis [facility] (2 sources) Cefadroxil; Translations: [Duricef] Drug Allergy [facility] Repository (3 sources) Ciprofloxacin; Translations: [Cipro] Drug Allergy Unknown [facility] Repository (3 sources) Metoclopramide; Translations: [Reglan] Drug Allergy Unknown [facility] Repository (2 sources) metroNIDAZOLE; Translations: [Flagyl] Drug Allergy 003 [facility] Repository (16 sources) traMADol; Translations: [TRAMADOL] Drug Allergy 022 Rash [facility] (1 source) Cephalexin Drug Allergy Rash [facility] Comment on above: some shortness of br eath (1 source) Dicyclomine Drug Allergy Anaphylaxis [facility] (9 sources) Penicillin; Translations: [PENICILLIN] Drug Allergy 017 Anaphylaxis [facility] (1 source) Sulfonamides (Antibiotic) Anaphylaxis [facility] (3 sources) NITROFURANTOIN MONOHYD/M-CRYST; Translations: [NITROFURANTOIN MONOHYD/M-CRYST] Propensity to adverse reactions to drug (disorder) [facility] Repository (1 source) chlorproMAZINE Drug Allergy [facility] Repository (1 source) Clindamycin Drug Allergy 013 [facility] Repository (1 source) Ketorolac Drug Allergy 023 [facility] [facility] Vancomycin Drug Allergy [facility] (7 sources) Lincomycin; Translations: [LINCOMYCIN] Drug Allergy Anaphylaxis [facility] (16 sources) Ketorolac Allergy to substance Other [facility] (16 sources) Meperidine Drug Allergy Other [facility] (16 sources) Penicillin G Drug Allergy Other [facility] (5 sources) Lisinopril Drug Allergy 013 Other (See Comments) [facility] (1 source) Azithromycin Drug Allergy [facility] (1 source) Cefadroxil Drug Allergy [facility] (1 source) Ciprofloxacin Drug Allergy [facility] (1 source) Clindamycin Drug Allergy [facility] (1 source) Dicyclomine Drug Allergy [facility] (1 source) Ketorolac Drug Allergy [facility] (1 source) Meperidine Drug Allergy [facility] (1 source) Metoclopramide Drug Allergy [facility] (1 source) metroNIDAZOLE Drug Allergy [facility] (1 source) Nitrofurantoin Drug Allergy [facility] (1 source) Penicillin Drug Allergy [facility] (1 source) Penicillins Drug allergy (disorder) [facility] (1 source) Sulfamethoxazole Drug Allergy [facility] (1 source) Trimethoprim Drug Allergy [facility] (1 source) Vancomycin Drug Allergy [facility] (2 sources) Sulfamethoxazole Allergy to substance Other [facility] NEGATED: Highlighted row has been ruled out! (14 sources) Other Propensity to adverse reactions 009 Anaphylaxis [employer] Phone: Medications Current Medications Medication Drug Class(es) Dates Sig (Normalized) Sig (Original) Accu-Chek Guide - (20 sources) Start: 08-27-2021 Accu-Chek Guide - as directed In Vitro 4 times a day for 90 days E10.Aug, Active Accu-Chek Guide - as directed In Vitro 6 times a day for 30 days Active Accu-Chek Guide - as directed In Vitro 6 times a day for 30 days E10.22 Not-Taking Accu-Chek Guide - as directed In Vitro 6 times a day for 30 days E10.22 Active Accu-Chek Guide - use with Accu check meter In Vitro 6 times a day for 30 days E10.22 Active Accu-Chek Guide - as directed In Vitro 4 times a day for 90 days E10.22 Active acetaminophen 500 mg oral tablet (12 sources) Start: 05-15-2022 take 2 tablets by mouth four times daily acetaminophen (TYLENOL) 500 MG tablet Take 2 tablets by mouth 4 times daily 0 05/15/2022 Active Start: 05-15-2022 take 2 tablets by mo ut every six hours acetaminophen (TYLENOL) 500 mg tablet Take 2 tablets by mouth every 6 hours. 0 05/15/2022 Active Start: 07-01-2021 acetaminophen (TYLENOL) tablet 650 mg Start: 10-21-2020 acetaminophen (TYLENOL) tablet 650 mg Start: 07-20-2020 take 650 mg by mouth every four hours as needed for pain, then take 4000 mg by mouth every twenty-four hours as needed for pain 650 mg, Oral, EVERY 4 HOURS PRN, Pain Mild (1-3), Fever, Fever >100.5 F (38 C), Starting 07/20/20 at 1925 Maximum dose of acetaminophen is 4000 mg from all sources in 24 hours. Comment on above: Take 2 tablets by mo ut every 6 hours. acetaminophen 325 mg / butalbital 50 mg / caffeine 40 mg oral tablet (1 source) Barbiturate, Central Nervous System Stimulant, Methylxanthine Start: 3 take 1 tablet by mouth every six hours as needed butalbital-acetam inophen-caffeine (FIORICET, ESGIC) 50-325-40 MG per tablet Take 1 tablet by mouth every 6 hours as needed 0 11/19/2022 Active [id number] 200 actuat albuterol 0.09 mg/actuat metered dose inhaler (20 sources) beta2-Adrenergic Agonist Start: albuterol HFA 90 mcg/act inhaler 08/08/2023 Active Start: 08-08-2023 albuterol sulf ate HFA (PROVENTIL;VENTOLIN;PROAIR) 108 (90 Base) MCG/ACT inhaler 08/08/2023 Active Start: 08-08-2023 End: 09-20-2023 take 1 puff(s) by inhalation four times daily as needed for wheezing Albuterol Sulfate 90 mcg/actuation HFA aerosol inhaler Discontinued 2 PUFF INHALATION Four times daily as needed for shortness of breath or wheezing 8.5 August 08, 2023 1:00am September 20, 2023 11:43am Start: 05-25-2023 take 1 puff(s) by inhalation every four hours as needed Albuterol Sulfate HFA 108 (90 Base) MCG/ACT 1 puff as needed Inhalation every 4 hrs May, Active Start: 10-21-2020 take 2 puff(s) by inhalation every four hours as needed for wheezing 2 puff, Inhalation, EVERY 4 HOURS PRN, Wheezing, Starting on Wed07/01/21 at 1558 Start: 10-21-2020 albuterol (PRO VENTIL) nebulizer solution 2.5 mg take 2 puff(s) by inhalation every six hours as needed albuterol 90 mcg/inh inhalation aerosol ; 2 puff(s) inhaled every 6 hours, As Needed Quantity: 0 Refills: 0 Ordered: 29-Aug-2022 Mecca Morrell Generic Substitution Allowed Ventolin HFA Act page take 2 puff(s) by inhalation every four hours as needed for wheezing albuterol sulfate HFA 108 (90 BASE) MCG/ACT inhaler Inhale 2 puffs into the lungs every 4 hours as needed for Wheezing 0 Active albuterol 0.833 mg/ml / ipratropium bromide 0.167 mg/ml inhalant solution (1 source) Anticholinergic, beta2-Adrenergic Agonist Start: 07-20-2020 1 ampule, Inhalation, EVERY 4 HOURS PRN, Shortness of Breath, Starting 07/20/20 at 1921 ALPRAZolam 1 mg oral tablet (20 sources) Benzodiazepine Start: 09-20-2023 take 1 tablet by mouth three times daily as needed for anxiety Alprazolam 1 mg tablet Active 1 MG PO Three times daily as needed for anxiety September 20, 2023 12:00am Start: 07-01-2021 take 1 mg by mouth f our times daily as needed for anxiety 1 mg, Oral, 4 TIMES DAILY PRN, Anxiety, Sleep, Starting on Wed07/01/21 at 1558 Start: 10-10-2020 End: 09-20-2023 take 2 tablets by mouth four times daily as needed for anxiety Alprazolam (Xanax) 0.5 mg tablet Discontinued 1 MG PO Four times daily as needed for Anxiety October 10, 2020 3:49pm September 20, 2023 11:42am Start: 10-05-2020 End: 10-10-2020 take 1 tablet by mouth four times daily as needed for anxiety Alprazolam 0.5 mg Tablet Discontinued 0.5 MG PO Four times daily as needed for Anxiety 0 October 05, 2020 12:00am October 10, 2020 3:49pm Start: 07-20-2020 take 1 mg by mouth f our times daily as needed for anxiety 1 mg, Oral, 4 TIMES DAILY PRN, Anxiety, Starting 07/20/20 at 1921 Start: 03-14-2015 End: 10-05-2020 take 1 tablet by mouth four times daily as needed for anxiety Alprazolam (Xanax) 1 mg Tablet Discontinued 1 MG PO Four times daily as needed for Anxiety January 20, 2018 12:00am October 05, 2020 11:15am Start: 07-02-2014 take 1-2 mg by mouth every eight hours as needed ALPRAZolam (XANAX) 1 mg tablet Take 1-2 mg by mouth three times daily as needed. 0 07/02/2014 Active Start: 01-02-2013 take 1 tablet by brittany th twice daily as needed for anxiety Xanax 1 mg Tab 1 mg = 1 tab(s), Oral, BID, PRN PRN for anxiety, Refills(s) 0 Start Date: 01/02/13 Status: Ordered Xanax Active Comment on above: Take 1-2 mg by mouth three times daily as needed. amitriptyline hydrochloride 50 mg oral tablet (20 sources) Tricyclic Antidepressant Start: 08-25-2021 take 1 tablet by mouth every twenty-four hours Start: 08-25-2021 take 1 tablet by brittany th every twenty-four hours Amitriptyline HCl 25 MG 1 tablet at bedtime Orally Once a day for 30 day(s) Aug, Active Start: 01-02-2013 End: 08-20-2021 take 1 tablet by mouth once daily at bedtime Amitriptyline 50 mg Tablet Discontinued 50 MG PO Daily at bedtime October 04, 2020 12:00am August 20, 2021 3:35pm amLODIPine 10 mg oral tablet (20 sources) Dihydropyridine Calcium Channel Willis Start: 04-11-2024 take 1 tablet by mouth once daily Amlodipine 10 mg tablet Active 10 MG PO Daily April 11, 2024 1:00am Start: 01-05-2024 End: 04-11-2024 take 2 tablets by mouth once daily Amlodipine 5 mg tablet Discontinued 10 MG PO Daily January 05, 2024 11:19am April 11, 2024 11:18am Start: 01-05-2024 End: 04-11-2024 take 10 mg by mouth once daily Amlodipine Discontinued 10 MG PO Daily January 05, 2024 10:19am April 11, 2024 10:18am Start: 01-05-2024 End: 01-07-2024 take 1 tablet by mouth once daily Amlodipine 10 mg tablet Discontinued 10 MG PO Daily January 05, 2024 12:00am January 07, 2024 10:09am Start: 02-20-2022 End: 09-20-2023 take 2 tablets by mouth once daily Amlodipine 5 mg Tablet Discontinued 10 MG PO Daily February 20, 2022 12:00am September 20, 2023 11:46am Start: 02-20-2022 End: 09-20-2023 take 10 mg by mouth once daily Amlodipine Discontinued 10 MG PO Daily February 19, 2022 11:00pm September 20, 2023 10:46am Start: 11-20-2021 take 1 tablet by brittany th every twenty-four hours amLODIPine Besylate 2.5 MG 1 tablet Orally Once a day for 90 days Nov, Active Start: 11-20-2021 End: 01-05-2024 take 1 tablet by mouth once daily Amlodipine 5 mg tablet Discontinued 5 MG PO Daily October 08, 2023 12:00am January 05, 2024 11:25am take 5 mg by mouth once daily am LODIPine (NORVASC) 10 mg tablet Take 5 mg by mouth once daily. 0 Active take 2.5 mg by mouth once daily amLODIPine (NORVASC) 10 mg tablet Take 2.5 mg by mouth once daily. 0 Active Comment on above: Take 2.5 mg by mouth once daily. Take 5 mg by mouth o nce daily. amylase 77836 unt / lipase 98773 unt / protease 19866 unt delayed release oral capsule (20 sources) Start: 09-23-2021 take 61513-13694 capsules by mouth once daily Jlskzy-Eoaitasp-S mylase (Creon) 12,000-38,000 -60,000 unit capsule,delayed release(DR/EC) Active 3 CAP PO Daily September 22, 2021 11:00pm at meals Start: 07-01-2021 50,000 Units ( rounded from 48,000 Units), Oral, 3 TIMES DAILY WITH MEALS, First dose on Wed07/01/21 at 1700 Start: 07-01-2021 35,000 Units ( rounded from 36,000 Units), Oral, PRN, with snacks or oral medications, Starting on Wed07/01/21 at 1558 Start: 10-21-2020 take 22527 [IU] by [facility] three times daily at mealtime 48,000 Units, Oral, 3 TIMES DAILY WITH MEALS, First dose on Wed10/21/20 at 0800 Start: 10-21-2020 35,000 Units ( rounded from 36,000 Units), Oral, PRN, with snacks or oral medications, Starting on Wed10/21/20 at 0154 Start: 01-20-2018 End: 11-06-2020 Mgfjgn-Irzxcxpg-Gnjyiay (Cre on) 36,000-114,000- 180,000 unit Capsule,Delayed Release(Dr/Ec) Discontinued 1 CAP PO 1 to 3 times daily January 20, 2018 12:00am November 06, 2020 5:19am Start: 01-13-2018 take 1 capsule by [facility] every six hours Start: 07-02-2014 End: 06-14-2022 take 78901-15997 capsules by mouth three times daily Znnqgq-Gpdxtzca-Tydpccz (Creon) 12,000-38,000 -60,000 unit capsule,delayed release(DR/EC) Active 3 CAP PO Three times daily September 22, 2021 11:00pm at meals Start: 07-02-2014 lipase-proteas e-amylase (CREON) 12,000-38,000 -60,000 unit cpDR Take 3 capsules by mouth as needed. snacks 0 07/02/2014 Active pancrelipase, Li p-Prot-Amyl, (Creon) 11400-582972 units capsule delayed-release particles capsule Take 1 capsule 6 times a day by oral route for 30 days. Active take 3 capsules by m outh once as needed atomhnl-pkfxcu-jnuauvoi (CREON 78632) 23561 UNITS per capsule Take 3 capsules by mouth as needed (with snacks or oral medications) Active lipase-protease- amylase (CREON) 12,000-38,000 -60,000 unit capsule,delayed release(DR/EC) capsule Take 36,000 Unit by mouth in the morning and 36,000 Unit at noon and 36,000 Unit in the evening. Take with meals. Before meals. 0 Active take 1 capsule by mo uth once as needed gdvmssi-oosqih-bjhfrjzn (CREON 01256) 48800 UNITS per capsule Take 36,000 Units by mouth as needed (with snacks or oral medications). 0 Active take 3 capsules by m outh three times daily before mealtime Creon 12,000 units oral delayed release capsule ; 3 cap(s) orally 3 times a day (before meals) Quantity: 0 Refills: 0 Ordered: 29-Aug-2022 Mecca Morrell Generic Substitution Allowed Comment on above: Take 3 capsules by m outh as needed. snacks Take 3 capsules by m outh as needed. Take three capsules with three larger meals, take two capsules with smaller meals amylases 06694 unt / endopeptidases 25887 unt / lipase 5000 unt delayed release oral capsule (20 sources) Start: 07-20-2020 50,000 Units (rounded from 48,000 Units), Oral, 3 TIMES DAILY WITH MEALS, First dose on 07/20/20 at 2000 Start: 07-20-2020 35,000 Units ( rounded from 36,000 Units), Oral, PRN, with snacks or oral medications, Starting 07/20/20 at 1921 take 1 capsule by mo uth three times daily at mealtime sjocnzm-udqklf-grzebbwj (CREON 02479) 86034 UNITS per capsule Take 48,000 Units by mouth 3 times daily (with meals). 0 Active take 1 capsule by mo uth once as needed ghcdqlp-cwftwa-nbtvyexc (CREON 25936) 30659 UNITS per capsule Take 36,000 Units by mouth as needed (with snacks or oral medications). 0 Active aspirin 81 mg chewable tablet (2 sources) Platelet Aggregation Inhibitor, Nonsteroidal Anti-inflammatory Drug End: 09-11-2020 take 1 tablet by mouth once daily aspirin 81 MG chewable tablet Take 1 tablet by mouth daily 0 Active Blood Glucose Monitoring Suppl (TRUETRACK SMART SYSTEM) KIT (20 sources) Blood Glucose Monitoring Suppl (TRUETRACK SMART SYSTEM) KIT TrueTrack Smart System kit Active Blood Glucose Mo nitoring Suppl (TRUETRACK SMART SYSTEM) KIT TrueTrack Smart System kit 0 Suspended Blood Glucose Mo nitoring Suppl (TRUETRACK SMART SYSTEM) KIT TrueTrack Smart System kit 0 Active Blood-Glucose Sensor (Dexcom G7 Sensor) device (20 sources) Start: 07-13-2024 Blood-Glucose Sensor (Dexcom G7 Sensor) device Active 0 .ROUTE .MEDSUPPLY July 13, 2024 8:09am As directed Use with G7 system to monitor BG in vitro Change every 10 days Start: 07-13-2024 Blood-Glucose Sensor (Dexcom G7 Sensor) device Active 0 .ROUTE .MEDSUPPLY July 13, 2024 7:09am As directed Use with G7 system to monitor BG in vitro Change every 10 days Start: 08-06-2023 End: 07-13-2024 Blood-Glucose Sensor (Dexcom G7 Sensor) device Discontinued 0 .ROUTE .MEDSUPPLY August 06, 2023 1:00am July 13, 2024 8:09am As directed Use with G7 system to monitor BG in vitro Change every 10 days Start: 08-06-2023 End: 07-13-2024 Blood-Glucose Sensor (Dexcom G7 Sensor) device Discontinued 0 .ROUTE .MEDSUPPLY August 06, 2023 12:00am July 13, 2024 7:09am As directed Use with G7 system to monitor BG in vitro Change every 10 days Start: 08-06-2023 Blood-Glucose Sensor (Dexcom G7 Sensor) device Active 0 .ROUTE .MEDSUPPLY August 06, 2023 12:00am As directed Use with G7 system to monitor BG in vitro Change every 10 days Start: 08-06-2023 Blood-Glucose Sensor (Dexcom G7 Sensor) device Active 0 .ROUTE .MEDSUPPLY August 06, 2023 1:00am As directed Use with G7 system to monitor BG in vitro Change every 10 days Bupivacaine (2 sources) Amide Local Anesthetic Start: 10-17-2020 bupivacaine 0.1%-NaCl 0.9% injectable solution Start Date: 10/17/20 Status: Ordered carvedilol 6.25 mg oral tablet (20 sources) alpha-Adrenergic Willis, beta-Adrenergic Willis Start: 01-05-2024 take 1 tablet by mouth once daily in the morning Carvedilol 6.25 mg tablet Active 6.25 MG PO Every morning January 05, 2024 12:00am Start: 01-05-2024 take 1 tablet by brittany twice daily Carvedilol 6.25 mg tablet Active 6.25 MG PO Twice daily January 04, 2024 11:00pm Start: 07-15-2021 take 2 tablets by mo [facility] twice daily carvedilol (COREG) 12.5 MG tablet Take 2 tablets by mouth 2 times daily 60 tablet 3 07/15/2021 Active Start: 07-02-2021 carvedilol (CO REG) tablet 25 mg Start: 07-20-2020 take 1 mg by mouth twice daily carvedilol 12.5 mg Tab mg tab(s), Oral, BID, Refills(s) 0 Start Date: 10/17/20 Status: Ordered Start: 01-20-2018 End: 09-23-2021 Carvedilol 25 mg tablet Disc ontinued 12.5 MG PO Twice daily January 20, 2018 12:00am September 23, 2021 10:22am Start: 01-20-2018 End: 09-23-2021 take 12.5 mg by mouth twice daily Carvedilol Discontinued 12.5 MG PO Twice daily January 19, 2018 11:00pm September 23, 2021 9:22am carvedilol (Core g) 12.5 MG tablet every 12 (twelve) hours. Active take 2 tablets by mo ut twice daily carvedilol (COREG) 12.5 MG tablet Take 25 mg by mouth 2 times daily 0 Suspended cefaclor 250 mg oral capsule (20 sources) Cephalosporin Antibacterial Start: 07-23-2022 take 1 capsule by mouth every eight hours chlordiazePOXIDE hydrochloride 5 mg / clidinium bromide 2.5 mg oral capsule (20 sources) Anticholinergic, Benzodiazepine Start: 08-29-2021 take 1 capsule by mouth every eight hours Start: 08-29-2021 chlordiazePOXI DE-Clidinium 5-2.5 MG 1 capsule before meals Orally Three times a day for 30 day(s) PLEASE CHECK ALLERGIES. Aug, Not-Taking Start: 08-29-2021 chlordiazePOXI DE-Clidinium 5-2.5 MG 1 capsule before meals Orally Three times a day for 30 day(s) PLEASE CHECK ALLERGIES. Aug, Active Start: 01-20-2018 End: 07-11-2018 Chlordiazepoxide-Clidinium ( Librax (With Clidinium)) 5-2.5 mg Capsule Discontinued 2 CAP PO Three times daily January 20, 2018 12:00am July 11, 2018 11:57am cholecalciferol 0.125 mg oral capsule (9 sources) Vitamin D take 1 capsule by mouth two times weekly vitamin D (CHOLECALCIFEROL) 125 MCG (5000 UT) CAPS capsule cholecalciferol (vitamin D3) 125 mcg (5,000 unit) capsule Take 1 capsule twice a week by oral route for 30 days. 0 Active 168 hr cloNIDine 0.44902 mg/hr transdermal system (20 sources) Central alpha-2 Adrenergic Agonist Start: End: Clonidine 0.2 mg/24 hr patch weekly Active 2 PATCH TRANSDERML every week September 20, 2023 11:46am Start: 07-01-2021 apply 1 dose transde rmal route every week 1 patch, TransDERmal, Administer over 7 Days, WEEKLY, First dose on Wed07/01/21 at 1630 Apply to a clean, hairless area of the upper outer arm or chest. Rotate patch s Start: 11-06-2020 End: 09-23-2021 Clonidine (Njqfqrai-Uqf-2) 0 .1 mg/24 hr patch weekly Discontinued 0.3 PATCH TRANSDERML 7 times per day November 06, 2020 12:00am September 23, 2021 10:22am change once weekly (tuesdays) Start: 01-04-2018 End: 09-11-2020 Clonidine Hcl 0.2 mg Tablet Discontinued 0.2 MG PO As Directed as needed for Hypertension January 20, 2018 12:00am July 26, 2020 12:32am Start: 01-04-2018 End: 09-11-2020 Clonidine 0.2 mg/24 hr Patch Weekly Discontinued 2 PATCH TRANSDERML every week January 20, 2018 12:00am July 26, 2020 12:32am cloNIDine 0.2 MG /24HR 2 patches Transdermal every 7 days Active Continuous Blood Gluc S[place] (DEXCOM G6 SENSOR[place] [facility] [place] Start: 10-28-2022 Continuous Blo od Gluc Sensor (DEXCOM G6 SENSOR) [facility] [place]com G6 Sensor - Use with G6 system to monitor BG In vitro change every 10 days for 90 days October, Active 10/28/2022 Active Start: 10-28-2022 Continuous Blo od Gluc Sensor (DEXCOM G6 SENSOR) [facility] [place]com G6 S[place] - Use with G6 system to monitor BG In vitro change every 10 days for 90 days October, Active 0 10/28/2022 Active Continuous Glucose Sensor (Dexcom G7 Sensor) [facility] (15 sources) Start: 04-21-2024 Continuous Glu cose Sensor (Dexcom G7 Sensor) [facility] 04/21/2024 Active Contour Next Link w/Device (20 sources) Start: 05-21-2021 Start: 05-21-2021 Contour Next L ink w/Device as directed n/a qd for 365 days contour next linking meter 2.4 links with medtronic 670 insulin pump May, Not-Taking Start: 05-21-2021 Contour Next L ink w/Device as directed n/a qd for 365 days contour next linking meter 2.4 links with medtronic 670 insulin pump May, Active Contour Next [place] k w/Device as directed Not-Taking Contour Next [place] k w/Device as directed Active Contour Next Test - (20 sources) Contour Next Gely t - use with contour next meter SQ 6 times a day for 90 days E10.65, Z79.4, Z96.41 Not-Taking Contour Next Gely t - use with contour next meter SQ 6 times a day for 90 days E10.65, Z79.4, Z96.41 Active Creon 12,000 units oral delayed release capsule (1 source) Start: 10-17-2020 take 1 capsule by mouth three times daily Creon 12,000 units oral delayed release capsule cap(s), Oral, TID, Refills(s) 0 Start Date: 10/17/20 Status: Ordered Creon 01279 UNIT (16 sources) Start: 01-13-2018 take 2 capsules by mouth four times daily Creon 44313 UNIT 2 CAPSULES Orally FOUR TIMES A DAY Jan, Active Enablex (2 sources) Cholinergic Muscarinic Antagonist Start: 01-02-2013 take 8 mg by mouth twice daily Enablex 8 mg, Oral, BID, Refills(s) 0 Start Date: 01/02/13 Status: Ordered Dexcom G6 Sensor - (20 sources) Start: 10-28-2022 Start: 10-28-2022 Dexcom G6 Sens or - Use with G6 system to monitor BG In vitro change every 10 days for 90 days October, Active Dexcom G6 Transmitter - (20 sources) Start: 10-28-2022 Start: 10-28-2022 Dexcom G6 Kinsey smitter - Use with G6 sensors in vitro change every 90 days for 90 days October, Active dronabinol 5 mg oral capsule (20 sources) Cannabinoid Start: 09-20-2023 End: 11-06-2024 take 1 capsule by mouth twice daily as needed Dronabinol 5 mg capsule Active 5 MG PO Twice daily as needed November 06, 2024 9:37am Start: 10-01-2020 End: 08-18-2021 take 1 capsule by mouth twice daily Dronabinol (Marinol) 2.5 mg Capsule Discontinued 2.5 MG PO Twice daily October 02, 2020 12:00am August 18, 2021 11:39am 0.4 ml enoxaparin sodium 100 mg/ml prefilled syringe (2 sources) Low Molecular Weight Heparin Start: 07-20-2020 End: 09-11-2020 inject 40 mg by subcutaneous injection once daily 40 mg, Subcutaneous, DAILY, First dose on 07/20/20 at 2000 ergocalciferol 1.25 mg oral capsule (20 sources) Provitamin D2 Compound Start: 10-17-2020 take 1 capsule by mouth once daily ergocalciferol 50,000 intl units Cap International_Unit cap(s), Oral, Daily, Refills(s) 0 Start Date: 10/17/20 Status: Ordered Start: 10-17-2020 take 1 capsule by [facility] once daily ergocalciferol 50,000 intl units Cap International_Unit cap(s), Oral, Daily, Refills(s) 0 Start Date: 10/17/20 Status: Ordered Start: 07-22-2020 vitamin D (ERG OCALCIFEROL) capsule 50,000 Units Start: 01-04-2018 End: 09-23-2021 take 1 capsule by mouth two times weekly Ergocalciferol (Vitamin D2) 50,000 unit Capsule Discontinued 72691 UNITS PO Twice a Week July 11, 2018 1:00am September 23, 2021 10:23am wednesday and take 1 capsule by mo ut two times weekly 84 hr estradiol 0.45359 mg/hr transdermal system (3 sources) Estrogen Start: 09-25-2024 End: 09-25-2025 apply 1 dose transdermal route two times weekly Estradiol 0.1 mg/24 hr patch semiweekly Active 1 PATCH TRANSDERML Twice a Week November 06, 2024 12:00am fenofibrate 48 mg oral tablet (3 sources) Peroxisome Proliferator Receptor alpha Agonist Start: 01-04-2013 take 1 tablet by mouth once daily TriCor 48 mg Tab 48 mg = 1 tab(s), Oral, Daily, # 30 tab(s), Refills(s) 0, 0, Print Requisition Start Date: 01/04/13 Status: Ordered End: 09-11-2020 fenofibrate micronized (LOFI BRA) 200 MG capsule fenofibrate micronized 200 mg capsule 0 09/11/2020 Discontinued (LIST CLEANUP) fluconazole 150 mg oral tablet (20 sources) Azole Antifungal Start: 03-19-2023 take 1 tablet by mouth once Diflucan 150 MG 1 tablet Orally once for 1 days Mar, Active Start: 07-25-2021 Diflucan 150 M G 1 tablet Orally 1 time, repeat in 72 hours if needed for 1 day(s) Jul, Not-Taking Start: 12-07-2020 End: 12-10-2020 take 1 tablet by mouth once daily fluconazole (DIFLUCAN) 150 MG tablet Take 1 tablet by mouth daily for 3 days 3 tablet 0 12/07/2020 12/10/2020 Active Start: 01-28-2019 End: 09-11-2020 take 1 tablet by mouth once daily fluconazole (DIFLUCAN) 200 MG tablet Take 1 tablet by mouth daily for 3 days 3 tablet 0 01/28/2019 01/31/2019 Active fluticasone propionate 0.05 mg/actuat metered dose nasal spray (1 source) Corticosteroid Start: 02-22-2022 fluticasone (F LONASE) 50 MCG/ACT nasal spray 1 spray by Nasal route daily as needed 0 02/22/2022 Active 0.1 ml glucagon 5 mg/ml auto-injector (20 sources) Antihypoglycemic Agent Start: 08-02-2024 End: 08-02-2024 Glucagon (Gvoke Hypopen 2-Pack) 0.5 mg/0.1 mL auto-injector Active 1 MG SUBCUT As Directed 0.4 August 02, 2024 11:09am prn hypoglycemia, may repeat dose in 15 minutes Start: 04-13-2024 End: 08-02-2024 Glucagon 1 mg/0.2 mL auto-in jector Discontinued 1 MG SUBCUT Once 0.2 1 April 13, 2024 3:47pm August 02, 2024 10:40am inject 1 pen for hypoglycemia glucose Start: 09-20-2023 End: 04-13-2024 Glucagon (Gvoke Hypopen 2-Pa ck) 0.5 mg/0.1 mL auto-injector Discontinued 1 MG SUBCUT Once 0.4 1 April 11, 2024 11:39am April 13, 2024 3:48pm inject 1 pen for hypoglycemia glucose Start: 07-11-2018 glucagon 1 mg injection inject 1 mg intravenously once g lucagon 1 MG injection Infuse 1 mg intravenously once Active Glucagon Emergen cy Kit for Low Blood Sugar 1 mg injection ; 0.5 milligram(s) injectable once a day, As Needed Quantity: 0 Refills: 0 Ordered: 29-Aug-2022 Mecca Morrell Generic Substitution Allowed Guardian Sensor (3) - (20 sources) Start: 07-22-2022 Start: 07-22-2022 Guardian Senso r (3) - as directed SQ change every 10 days for 30 day(s) Jul, Active Guardian Sensor (3) - as directed SQ change every 10 days for 30 day(s) Not-Taking Guardian Sensor (3) - as directed SQ change every 10 days for 30 day(s) Active 3 ml heparin sodium, porcine 100 unt/ml prefilled syringe (16 sources) Unfractionated Heparin, Anti-coagulant Start: 12-03-2023 End: 12-03-2023 heparin (PF) 100 UNIT/ML injection 300 Units Start: 10-17-2023 End: 10-17-2023 heparin (PF) 100 UNIT/ML inj ection 100 Units Start: 11-19-2022 End: 11-19-2022 heparin flush (PF) 100 UNIT/ ML injection 300 Units Start: 07-03-2021 heparin flush (PF) 10 UNIT/ML injection 30 Units Start: 01-29-2021 End: 01-29-2021 heparin flush 100 UNIT/ML in jection 100 Units Start: 01-29-2021 End: 01-29-2021 heparin flush 100 UNIT/ML in jection Start: 01-27-2021 End: 01-27-2021 heparin flush 100 UNIT/ML in jection 100 Units Start: 01-27-2021 End: 01-27-2021 heparin flush 100 UNIT/ML in jection Start: 01-25-2021 End: 01-25-2021 heparin flush 100 UNIT/ML in jection Start: 10-21-2020 heparin flush 100 UNIT/ML injection 500 Units Start: 10-17-2020 heparin SubCut aneous, q12hr, Refills(s) 0 Start Date: 10/17/20 Status: Ordered Start: 09-11-2020 End: 09-11-2020 heparin flush 100 UNIT/ML in jection 500 Units Start: 07-22-2020 heparin flush (PF) 10 UNIT/ML injection 30 Units Start: 08-10-2019 End: 08-10-2019 heparin flush 100 UNIT/ML in jection 100 Units Heparin Lock Flush (20 sources) Heparin Lock Flu sh Active Heparin Sod, Pork, Lock Flus h (HEPARIN LOCK FLUSH IV) (6 sources) Heparin Sod, Por k, Lock Flush (HEPARIN LOCK FLUSH IV) Heparin Lock Flush (20 sources) Active Heparin Sod, Por k, Lock Flush (HEPARIN LOCK FLUSH IV) Heparin Lock Flush (20 sources) 0 Active Humulin 70/30 10 mL Injection-Insulin (1 source) Start: 01-04-2013 Humulin 70/30 10 mL Injection-Insulin 30, SubCutaneous, BIDAC, # 1 bottle(s), Refills(s) 0, 0, Print Requisition Start Date: 01/04/13 Status: Ordered hydroCHLOROthiazide 12.5 mg / losartan potassium 50 mg oral tablet (9 sources) Thiazide Diuretic, Angiotensin 2 Receptor Willis Start: 09-24-2021 take 1 tablet by mouth once daily hydrochlorothiazide-l osartan 12.5 mg-50 mg Tab tab(s), Oral, Daily, Refill(s) 0 Start Date: 09/24/21 Status: Ordered Start: 05-20-2021 take 1 tablet by mouth once da rohan 1 tablet, Oral, DAILY, First dose on Wed07/01/21 at 1630 take 1 tablet by mouth once tamiko y losartan-hydroCHLOROthiazide (HYZAAR) 100-25 MG per tablet Take 1 tablet by mouth daily 0 Active hydrOXYzine hydrochloride 25 mg oral tablet (20 sources) Antihistamine Start: 10-21-2020 take 50 mg by mouth once daily 50 mg, Oral, NIGHTLY, First dose on Wed10/21/20 at 2100 Start: 10-17-2020 take 1 mg by mouth f our times daily hydrOXYzine hydrochloride 50 mg oral tablet mg tab(s), Oral, QID, Refills(s) 0 Start Date: 10/17/20 Status: Ordered Start: 07-25-2020 End: 09-23-2021 take 1 tablet by mouth once daily in the morning Hydroxyzine Hcl 10 mg tablet Discontinued 10 MG PO Every morning July 25, 2020 1:00am September 23, 2021 10:23am Start: 07-25-2020 End: 09-23-2021 take 1 tablet by mouth once daily in the evening Hydroxyzine Hcl 50 mg tablet Discontinued 50 MG PO Every evening July 25, 2020 1:00am September 23, 2021 10:23am 12 hr hyoscyamine sulfate 0.375 mg extended release oral tablet (20 sources) Start: 08-19-2021 take 1 tablet by mouth every twelve hours indomethacin 25 mg oral capsule (2 sources) Nonsteroidal Anti-inflammatory Drug Start: 10-17-2020 take 1 mg by mouth three times daily indomethacin 25 mg Cap mg cap(s), Oral, TID, Refills(s) 0 Start Date: 10/17/20 Status: Ordered insulin aspart (NovoLOG) 100 UNIT/ML injection (16 sources) insulin aspart (NovoLOG) 100 UNIT/ML injection Subcutaneous Active insulin aspart (NOVOLOG) 100 UNIT/ML injection vial (6 sources) insulin aspart (NOVOLOG) 100 UNIT/ML injection vial Inject into the skin Patient is on an insulin pump. 0 Active 3 ml insulin aspart protamine, human 70 unt/ml / insulin aspart, human 30 unt/ml pen injector (5 sources) Insulin Analog insulin asp prt-insulin aspart (NovoLOG MIX 70/30) 100 unit/mL (70-30) insulin pen Inject under the skin 2 (two) times a day. Takes if pump is no working 0 Active 3 ml insulin degludec 100 unt/ml pen injector (20 sources) Insulin Analog Start: 09-03-2022 inject 1 dose by subcutaneous injection once daily Tresiba FlexTouch 100 UNIT/ML 30 units when off of insulin pump Subcutaneous daily for 30 days Must wait 24 hours after last dose before restarting insulin pump Aug, Active insulin glargine 100 unt/ml injectable solution (9 sources) Insulin Analog insulin glargine (LANTUS) 100 UNIT/ML injection vial Lantus U-100 Insulin 100 unit/mL subcutaneous solution 0 Active 3 ml insulin isophane, human 100 unt/ml pen injector (20 sources) Start: 08-09-2023 HumuLIN N KWIKPEN 100 UNIT/ML injection 08/09/2023 Active Start: 08-09-2023 End: 09-20-2023 inject 7 [IU] by subcutaneous injection twice daily Insulin Nph Isoph U-100 Human (Humulin N Nph Insulin Kwikpen) 100 unit/mL (3 mL) insulin pen Discontinued 7 UNIT SUBCUT Twice daily August 09, 2023 1:00am September 20, 2023 11:49am Take 7 units at the same time as the steroid BID for the next 5 days. insulin isophane, human 70 unt/ml / insulin, regular, human 30 unt/ml injectable suspension (1 source) Insulin Start: 01-04-2013 Humulin 70/30 10 mL Injection-Insulin 30, SubCutaneous, BIDAC, # 1 bottle(s), Refills(s) 0, 0, Print Requisition Start Date: 01/04/13 Status: Ordered insulin lispro 100 unt/ml injectable solution (20 sources) Insulin Analog Start: 09-07-2024 Insulin Lispro 100 UNIT/ML solution 09/07/2024 Active Start: 12-01-2023 Insulin Lispro Active 0 .ROUTE .COMPLEX 80 December 01, 2023 9:27am INJECT 80 UNITS VIA INSULIN PUMP DAILY DIRECTED Start: 12-01-2023 Insulin Lispro Active 0 .ROUTE .COMPLEX 80 December 01, 2023 10:27am INJECT 80 UNITS VIA INSULIN PUMP DAILY DIRECTED Start: 03-01-2023 inject 80 [IU] by meredith bcutaneous injection once daily HumaLOG 100 UNIT/ML 80 units/day insulin pump SQ As Directed Feb, Active Start: 12-11-2022 HumaLOG 100 UN IT/ML 80 units per insulin pump Injection daily for 30 days Dec, Not-Taking Start: 10-21-2020 insulin lispro (HUMALOG) injection vial 0-6 Units insulin lispro 25 unt/ml / insulin lispro protamine, human 75 unt/ml injectable suspension (5 sources) Insulin Analog insulin lispro p rotamine & lispro (HUMALOG MIX) (75-25) 100 UNIT per ML SUSP injection vial Inject into the skin 2 times daily (with meals) Pt uses humalog basal pump Active Insulin Lispro 100 unit/mL solution (10 sources) Start: 09-05-2024 Insulin Lispro 100 unit/mL solution Active 0 .ROUTE .COMPLEX 80 September 05, 2024 11:47am INJECT 80 UNITS VIA INSULIN PUMP DAILY DIRECTED Start: 12-01-2023 End: 09-05-2024 Insulin Lispro 100 unit/mL s olution Discontinued 0 .ROUTE .COMPLEX 80 December 01, 2023 10:27am September 05, 2024 11:47am INJECT 80 UNITS VIA INSULIN PUMP DAILY DIRECTED Start: 12-01-2023 Insulin Lispro 100 unit/mL solution Active 0 .ROUTE .COMPLEX 80 December 01, 2023 10:27am INJECT 80 UNITS VIA INSULIN PUMP DAILY DIRECTED Start: 12-01-2023 Insulin Lispro 100 unit/mL solution Active 0 .ROUTE .COMPLEX 80 December 01, 2023 9:27am INJECT 80 UNITS VIA INSULIN PUMP DAILY DIRECTED Insulin Pump - insulin aspart (Patient Supplied) (1 source) Start: 07-20-2020 inject 2 [IU] by subcutaneous injection once 2 Units, Subcutaneous, CONTINUOUS, Starting 07/20/20 at 2000 Adjust as per glucose reading 3 ml insulin aspart, human 100 unt/ml pen injector (20 sources) Insulin Analog Start: 09-03-2022 NovoLOG FlexPe n 100 UNIT/ML 1:7 carb ratio ac tid. 1:30 corrective scale ac, hs Subcutaneous As Directed if off insulin pump (expect up to 30 units/day) Aug, Active Start: 09-24-2021 NovoLOG 100 un its/mL injectable solution SubCutaneous, TIDAC, Refills(s) 0 Start Date: 09/24/21 Status: Ordered Start: 01-20-2018 End: 07-11-2018 inject 1 [IU] by subcutaneous injection once daily in the morning Insulin Aspart U-100 (Novolog U-100 Insulin Aspart) 100 unit/mL Solution Discontinued 1 UNIT SUBCUT Every morning January 20, 2018 12:00am July 11, 2018 12:05pm Start: 01-04-2018 inject 1.25 [IU] by subcutaneous injection every hour insulin aspart SUBCUTANEOUS PUMP (NovoLOG) 100 UNIT/ML patient supplied pump Inject under the skin continuously. BASAL 1.25 UNITS/HR. BOLUS 1 UNITS FOR EVERY 13 GRAMS OF CARBS SHE EATS. 0 01/04/2018 Active Start: 07-02-2014 inject 6 [IU] by sub cutaneous injection four times daily insulin aspart U-100 (NOVOLOG) 100 unit/mL Inject 6 Units subcutaneously four times daily. 0 07/02/2014 Active inject 80 [IU] by meredith bcutaneous injection once NovoLOG 100 UNIT/ML 80 units per insulin pump Subcutaneous daily Active inject 80 [IU] by meredith bcutaneous injection once NovoLOG 100 UNIT/ML 80 units per insulin pump Subcutaneous daily Active insulin aspart 1 00 units/mL injectable solution ; as directed Quantity: 0 Refills: 0 Ordered: 29-Aug-2022 Mecca Morrell Generic Substitution Allowed inject 130 [IU] by s ubcutaneous injection once NovoLOG 100 UNIT/ML 130 units per insulin pump Subcutaneous daily Active Comment on above: Inject 6 Units subcu taneously four times daily. Inject subcutaneousl y four times daily as needed. Per Sliding scale 150-180 1 unit 181-210 2 units 211-240 3 units 241-270 4 units 271-300 5 units 301-330 6 units 331-360 7 units 361-390 8 units 391-420 9 units 421- 450 10 units levoFLOXacin 500 mg oral tablet (2 sources) Quinolone Antimicrobial Start: 12-08-19 End: 12-15-19 take 1 tablet by mouth once daily levoFLOXacin (LEVAQUIN) 500 MG tablet Take 1 tablet by mouth daily for 7 days 7 tablet 0 12/07/2020 12/14/2020 Active End: 09-11-2020 levoFLOXacin (LEVAQUIN) 750 MG tablet levofloxacin 750 mg tablet 0 09/11/2020 Discontinued (LIST CLEANUP) levonorgestrel 0.511827 mg/hr intrauterine system (20 sources) Progestin, Progestin-containing Intrauterine Device levonorgestrel (DEANGELO NA) 20 mcg/24 hr (5 years) IUD 1 each by intrauterine route once. 0 Active Mirena 52 mg int rauterine device ; 1 each intrauterine once Quantity: 0 Refills: 0 Ordered: 29-Aug-2022 Mecca Morrell Generic Substitution Allowed Mirena IUD As Di rected Active linaclotide 0.29 mg oral capsule (20 sources) Guanylate Cyclase-C Agonist Start: 08-02-2024 take 1 capsule by mouth at bedtime Linaclotide (Linzess) 290 mcg capsule Active 290 MCG PO Bedtime August 02, 2024 1:00am Start: 01-20-2018 End: 07-11-2018 take 1 capsule by mouth once daily Linaclotide (Linzess) 290 mcg Capsule Discontinued 290 MCG PO Daily January 20, 2018 12:00am July 11, 2018 11:58am Kjmxim-Lctpwbfv-Dqxuxgd (Creon) 12,000-38,000 -60,000 unit capsule,delayed release(DR/EC) (6 sources) Start: 09-23-2021 take 65673-69295 capsules by mouth three times daily Cwtdfu-Dntdzbrn-Hmzgctb (Creon) 12,000-38,000 -60,000 unit capsule,delayed release(DR/EC) Active 3 CAP PO Three times daily September 23, 2021 12:00am at meals Start: 09-23-2021 take 74355-52524 cap sules by mouth three times daily Cbqayn-Fqfvborb-Ipvnjps (Creon) 12,000-38,000 -60,000 unit capsule,delayed release(DR/EC) Active 3 CAP PO Three times daily September 22, 2021 11:00pm at meals lisinopril 20 mg oral tablet (20 sources) Angiotensin Converting Enzyme Inhibitor Start: 10-17-2020 End: 07-27-2024 take 1 mg by mouth once daily lisinopril 20 mg Tab mg tab(s), Oral, Daily, Refills(s) 0 Start Date: 10/17/20 Status: Ordered Start: 01-20-2018 End: 09-23-2021 take 1 tablet by mouth twice daily Lisinopril 20 mg Tablet Discontinued 20 MG PO Twice daily January 20, 2018 12:00am September 23, 2021 10:23am Start: 04-01-2015 End: 07-22-2020 lisinopril (PRINIVIL;ZESTRIL ) 2.5 MG tablet Take 20 mg by mouth 2 times daily 0 04/01/2015 07/22/2020 Discontinued (Stop Taking at Discharge) 5 ml metoprolol tartrate 1 mg/ml injection (1 source) beta-Adrenergic Willis Start: 07-20-2020 metoprolol (LOPRESSOR) injection 5 mg MiraLax 17 GM/SCOOP (20 sources) take 17 g by mouth twice daily take 17 g by mouth twice daily M iraLax 17 GM/SCOOP as directed Orally twice a day Active Normal saline (20 sources) Saline Flush Act page NovoLOG 100 units/mL injectable solution (1 source) Start: 09-24-2021 NovoLOG 100 units/mL injectable solution SubCutaneous, TIDAC, Refills(s) 0 Start Date: 09/24/21 Status: Ordered OLANZapine 5 mg oral tablet (20 sources) Atypical Antipsychotic Start: 01-05-2024 take 1 tablet by mouth once daily in the evening as needed for nausea Olanzapine 5 mg tablet Active 5 MG PO Every evening as needed for nausea January 05, 2024 12:00am oxyCODONE hydrochloride 5 mg oral tablet (20 sources) Opioid Agonist Start: 07-09-2023 take 1 tablet by mouth every four to six hours as needed for pain Oxycodone 5 mg tablet Active 5 MG PO EVERY 4-6 HOURS as needed for pain July 09, 2023 1:00am Start: 07-09-2023 End: 09-11-2020 take 5 mg by mouth every four to six hours Oxycodone Active 5 MG PO EVERY 4-6 HOURS July 09, 2023 12:00am Start: 01-20-2018 End: 07-11-2018 take 1 tablet by mouth every four hours as needed for pain Oxycodone 10 mg tablet Discontinued 10 MG PO Q4H as needed for Pain January 20, 2018 12:00am July 11, 2018 11:56am take 1 tablet by brittany th every four hours as needed for pain, then take 1-2 tablets by mouth every four to six hours as needed for pain oxyCODONE (ROXICODONE) 5 MG immediate release tablet Take 1 tablet by mouth every 4 hours as needed for Pain. 1-2 tablets every 4-6hrs Active Pancrelipase 27,000 units-5,000 units-17,000 units oral delayed release capsule (2 sources) Start: 01-04-2013 Pancrelipase 2 7,000 units-5,000 units-17,000 units oral delayed release capsule 3 cap(s), Oral, TIDWM, 90 cap(s), Refill(s) 0, 0, Print Requisition, Cap-DR Start Date: 01/04/13 Status: Ordered pantoprazole 40 mg delayed release oral tablet (20 sources) Proton Pump Inhibitor Start: 09-27-2022 take 1 tablet by mouth every twelve hours Protonix 40 MG 1 tablet Orally BID HOSP Sep, Active Start: 05-28-2022 End: 05-28-2022 pantoprazole (PROTONIX) tabl et 40 mg pantoprazole (PROTONIX) 80 m g in sodium chloride 0.9 % 100 mL infusion (3 sources) Start: 10-20-2020 pantoprazole ( PROTONIX) 80 mg in sodium chloride 0.9 % 100 mL infusion Start: 09-11-2020 pantoprazole ( PROTONIX) 80 mg in sodium chloride 0.9 % 100 mL infusion Start: 09-07-2020 pantoprazole ( PROTONIX) 80 mg in sodium chloride 0.9 % 100 mL infusion pantoprazole (PROTONIX) injection 40 mg (2 sources) Start: 07-03-2021 pantoprazole ( PROTONIX) injection 40 mg Start: 10-21-2020 pantoprazole ( PROTONIX) injection 40 mg plecanatide 3 mg oral tablet (12 sources) take 1 tablet by mouth every twenty-four hours polyethylene glycol 3350 57937 mg powder for oral solution (20 sources) Osmotic Laxative Start: 01-16-20 Polyethylene Glycol 3350 (Miralax) 17 gram powder in packet Active 17 GM PO Daily as needed for constipation January 15, 2023 12:00am Start: 07-02-2022 End: 06-27-2023 polyethylene glycol 3350 (HI RALAX, GLYCOLAX) 17 gram/dose powder Take 17 g by mouth twice daily. Dissolve dose in 4 - 8 ounces of liquid and take as directed. 1020 g 11 07/02/2022 06/27/2023 Active Start: 09-24-2021 take 1 g by mouth once daily M iraLax gm, Oral, Daily, Refill(s) 0 Start Date: 09/24/21 Status: Ordered Start: 07-19-2014 End: 05-13-2023 Polyethylene Glycol 3350 (Mi ralax) 17 gram Powder In Packet Discontinued 17 GM PO Twice daily November 06, 2020 12:00am May 13, 2023 1:59pm Start: 07-19-2014 End: 08-22-2020 polyethylene glycol 3350 (HI RALAX, GLYCOLAX) 17 gram packet Take 1 Packet by mouth as needed (Constipation). 10 Packet 0 07/19/2014 Active Comment on above: Take 1 Packet by brittany th as needed (Constipation). Take 17 g by mouth t wice daily. Dissolve dose in 4 - 8 ounces of liquid and take as directed. Potassium Chloride (2 sources) Start: 07-20-2020 potassium chloride (KLOR-CON M) extended release tablet 40 mEq Start: 01-13-2019 End: 01-13-2019 potassium chloride 10 mEq/10 0 mL IVPB (Peripheral Line) prochlorperazine 5 mg/ml injectable solution (16 sources) Phenothiazine Start: 02-27-2024 10 mg, IntraVE Nous, ONCE, 1 dose, On 02/27/24 at 1200, If administering IV push, administer at a maximum rate of 5 mg/minute. Patients should remain lying down following administration and be reassessed for relief of nausea and presence of hypotension. Patients should be assisted the first time they get up after administration. Start: 10-17-2023 prochlorperazi ne (COMPAZINE) injection 10 mg Start: 09-06-2023 prochlorperazi ne (COMPAZINE) injection 5 mg Start: 03-25-2023 prochlorperazi ne (COMPAZINE) 10 MG/2ML SOLN injection Infuse 2 mLs intravenously as needed (nausea) 240 mL 03/25/2023 Active Start: 07-15-2022 prochlorperazi ne (COMPAZINE) 10 mg/2 mL (5 mg/mL) injection Start: 07-15-2022 prochlorperazi ne (COMPAZINE) 10 MG/2ML SOLN injection Infuse 2 mLs intravenously as needed 0 07/15/2022 Active Start: 03-23-2022 End: 03-23-2022 prochlorperazine (COMPAZINE) injection 10 mg prochlorperazine 5 mg/mL injectable solution ; 5 milligram(s) injectable every 4 hours, As Needed Quantity: 0 Refills: 0 Ordered: 29-Aug-2022 Mecca Morrell Generic Substitution Allowed 1 ml promethazine hydrochloride 25 mg/ml injection (20 sources) Phenothiazine Start: 04-14-2024 End: 10-31-2024 Promethazine 25 mg/mL solution Active 0 .ROUTE .COMPLEX 360 October 31, 2024 2:42pm INJECT 1ml intravenously EVERY 6 TO 8 HOURS NEEDED FOR NAUSEA AND VOMITING Start: 07-09-2023 End: 04-14-2024 Promethazine 25 mg/mL soluti on Discontinued 25 MG IV every 6 to 8 hours as needed for nausea and vomiting January 07, 2024 10:11am April 07, 2024 11:39am Start: 07-09-2023 End: 04-07-2024 Promethazine Active 25 MG IV every 6 to 8 hours April 07, 2024 10:38am Start: 06-15-2022 take 1 tablet by brittany th every twelve hours Start: 05-28-2022 End: 06-04-2022 promethazine (PHENERGAN) tab let 25 mg Start: 08-21-2021 Promethazine H Cl 25 MG 1 suppository as needed Rectal every 12 hrs for 30 day(s) Aug, Active Start: 07-03-2021 End: 07-11-2021 take 1 tablet by mouth four times daily as needed for nausea promethazine (PHENERGAN) 25 MG tablet Take 1 tablet by mouth 4 times daily as needed for Nausea 32 tablet 0 07/03/2021 07/11/2021 Active Start: 07-01-2021 promethazine ( PHENERGAN) injection 25 mg Start: 01-29-2021 End: 01-29-2021 promethazine (PHENERGAN) injection 12.5 mg Start: 01-29-2021 End: 01-29-2021 promethazine (PHENERGAN) injection 25 mg Start: 10-21-2020 promethazine ( PHENERGAN) tablet 12.5 mg Start: 10-05-2020 End: 11-06-2020 take 1 tablet by mouth every four to six hours as needed for nausea and vomiting Promethazine 25 mg tablet Discontinued 25 MG PO EVERY 4-6 HOURS as needed for nausea and vomiting October 05, 2020 12:00am November 06, 2020 4:50am Start: 10-05-2020 End: 09-23-2021 Promethazine 25 mg supposito ry Discontinued 25 MG [place] Q6H as needed for nausea and vomiting August 20, 2021 12:00am September 23, 2021 10:19am Start: 10-05-2020 End: 11-06-2020 take 25 mg by mouth every four to six hours Promethazine Discontinued 25 MG W[place] EVERY 4-6 HOURS October 04, 2020 11:00pm November 06, 2020 3:50am either PO or [place] Start: 09-12-2020 End: 09-12-2020 promethazine (PHENERGAN) injection 6.25 mg Start: 09-11-2020 End: 09-12-2020 promethazine (PHENERGAN) injection 12.5 mg Start: 09-07-2020 End: 09-07-2020 promethazine (PHENERGAN) injection 12.5 mg Start: 07-20-2020 End: 07-20-2020 promethazine (PHENERGAN) injection 12.5 mg Start: 07-20-2020 End: 07-20-2020 take 1 tablet by mouth every four hours as needed for nausea promethazine (PHENERGAN) 25 MG tablet Take 1 tablet by mouth every 4 hours as needed for Nausea 30 tablet 0 07/20/2020 07/20/2020 Discontinued Start: 02-03-2019 End: 02-03-2019 promethazine (PHENERGAN) injection 25 mg Start: 01-20-2018 End: 02-27-2022 take 25 mg intravenously every four hours as needed for nausea and vomiting Promethazine (Phenergan) 25 mg/mL Solution Discontinued 25 MG IV Q4H as needed for Nausea And Vomiting January 20, 2018 12:00am February 27, 2022 10:33am Start: 07-02-2014 End: 07-20-2020 take 25 mg intravenously every four hours as needed promethazine (PHENERGAN) 50 mg/mL injection Inject 25 mg intravenously every 4 hours as needed. 0 07/02/2014 Active promethazine (Ph energan) 25 MG/ML injection every 12 (twelve) hours. Active inject 1 mL intraven ously every six hours as needed promethazine (PHENERGAN) 25 MG/ML injection Infuse 1 mL intravenously every 6 hours as needed Active Promethazine HCl 25 mg/mL ADMINISTER 1ml into port EVERY 6 HOURS NEEDED FOR NAUSEA AND VOMITING for 30 Active Comment on above: Inject 25 mg intrave nously every 4 hours as needed. QUEtiapine 100 mg oral tablet (20 sources) Atypical Antipsychotic Start: take 2 tablets by mouth at bedtime Quetiapine (Seroquel) 100 mg tablet Active 200 MG PO Bedtime September 20, 2023 12:00am Start: 09-20-2023 take 2 tablets by mo uth once at bedtime Quetiapine (Seroquel) 100 mg tablet Active 200 MG PO once at bedtime September 19, 2023 11:00pm Start: 06-23-2021 take 2 tablets by mo uth at bedtime QUEtiapine (SEROQUEL) 50 MG tablet Take 2 tablets by mouth at bedtime 06/23/2021 Active Start: 10-21-2020 take 50 mg by mouth once daily 50 mg, Oral, NIGHTLY, First dose on Wed10/21/20 at 2100 Start: 08-05-2020 End: 09-20-2023 Quetiapine (Seroquel) 50 mg tablet Discontinued 175 MG PO Bedtime August 05, 2020 1:00am September 20, 2023 11:40am Start: 08-05-2020 take 3 tablets by mo uth at bedtime Quetiapine (Seroquel) 50 mg tablet Active 150 MG PO Bedtime August 05, 2020 1:00am Start: 08-05-2020 take 1 tablet by brittany th at bedtime Quetiapine (Seroquel) 50 mg tablet Active 50 MG PO Bedtime August 05, 2020 1:00am Start: 07-20-2020 take 100 mg by mouth once tamiko y 100 mg, Oral, DAILY, First dose on 07/20/20 at 2000 Start: 07-11-2018 End: 08-05-2020 Quetiapine (Seroquel) 300 mg Tablet Discontinued 50 MG PO Daily July 11, 2018 1:00am August 05, 2020 7:27am Start: 01-20-2018 End: 04-22-2024 take 1 tablet by mouth once daily Quetiapine (Seroquel) 300 mg Tablet Discontinued 300 MG PO Daily January 20, 2018 12:00am July 11, 2018 11:56am Start: 04-08-2015 QUEtiapine (SE ROQUEL) 200 MG tablet Take 100 mg by mouth daily 0 04/08/2015 Active take 1 tablet by brittany th at bedtime QUEtiapine (SEROquel) 200 MG tablet Take 200 mg by mouth at bedtime Active take 175 mg by mouth once daily quetiapine fumarate (QUETIAPINE ORAL) Take 175 mg by mouth nightly. 0 Active QUEtiapine (SERO QUEL) 100 mg tablet Take 50 mg by mouth once daily. 0 Active SEROquel Active take 1 tablet by brittany th every twenty-four hours Comment on above: Take 50 mg by mouth once daily. Take 100 mg by mouth once daily. 72 hr scopolamine 0.0139 mg/hr transdermal system (4 sources) Anticholinergic scopolamine (TRANSDERM-SCOP) transdermal patch Place 1 patch onto the skin every 72 hours 0 Active Senna Leaves (1 source) Start: 01-05-20 13 take 2 tablets by mouth twice daily senna 8.6 mg Tab 17.2 mg = 2 tab(s), Oral, BID, Refills(s) 0 Start Date: 01/04/13 Status: Ordered sennosides, long-term 8.6 mg oral tablet (1 source) Start: 01-05-20 take 2 tablets by mouth twice daily senna 8.6 mg Tab 17.2 mg = 2 tab(s), Oral, BID, Refills(s) 0 Start Date: 01/04/13 Status: Ordered sertraline 100 mg oral tablet (20 sources) Serotonin Reuptake Inhibitor Start: 02-23-20 take 1 tablet by mouth at bedtime Sertraline (Zoloft) 100 mg tablet Active 100 MG PO Bedtime September 20, 2023 12:00am Start: 09-24-2021 Zoloft Oral, D aily, Refills(s) 0 Start Date: 09/24/21 Status: Ordered Start: 09-23-2021 End: 09-20-2023 take 2 tablets by mouth once daily Sertraline (Zoloft) 50 mg Tablet Discontinued 100 MG PO Daily September 23, 2021 12:00am September 20, 2023 11:41am Zoloft Active take 1.5 tablets by mouth once daily Sertraline HCl 50 MG 1.5 tabs Orally Once a day Active take 1 tablet by brittany th every twenty-four hours Sertraline HCl 50 MG 1 tablet Orally Once a day Active Comment on above: Take 100 mg by mouth once daily. sodium chloride flush 0.9 % injection 3 mL (1 source) Start: 03-02-20 sodium chloride flush 0.9 % injection 3 mL sodium polystyrene sulfonate 250 mg/ml oral suspension (3 sources) Start: 01-26-20 End: 01-28-20 sodium polystyrene (SPS) 15 GM/60ML suspension Take 60 mLs by mouth 2 times daily for 2 days 240 mL 0 01/25/2021 Active temazepam 30 mg oral capsule (20 sources) Benzodiazepine Start: 09-20-19 take 1 capsule by mouth once daily at bedtime Temazepam 30 mg capsule Active 30 MG PO Daily at bedtime September 20, 2023 12:00am Start: 01-15-2023 End: 09-20-2023 take 4 capsules by mouth once daily at bedtime Temazepam 7.5 mg capsule Discontinued 30 MG PO Daily at bedtime January 15, 2023 12:00am September 20, 2023 11:40am Start: 01-15-2023 End: 09-20-2023 take 30 mg by mouth once daily at bedtime Temazepam Discontinued 30 MG PO Daily at bedtime January 14, 2023 11:00pm September 20, 2023 10:40am Start: 01-15-2023 take 15 mg by mouth once daily at bedtime Temazepam Active 15 MG PO Daily at bedtime January 15, 2023 12:00am take 2 capsules by out once daily temazepam (RESTORIL) 15 MG capsule Take 2 capsules by mouth nightly. Active take 1 capsule by mo ut every twenty-four hours Temazepam 30 MG 1 capsule at bedtime as needed Orally Once a day Active tiZANidine 4 mg oral tablet (20 sources) Central alpha-2 Adrenergic Agonist Start: 10-09-2024 take 2 tablets by mouth twice daily as needed for muscle spasms Tizanidine 4 mg tablet Active 0 .ROUTE .COMPLEX October 09, 2024 7:39am TAKE 2 TABLETS BY MOUTH TWICE A DAY NEEDED FOR MUSCLE SPASMS Start: 08-19-2023 End: 10-09-2024 take 2 tablets by mouth twice daily Tizanidine 4 mg tablet Discontinued 8 MG PO Twice daily August 28, 2024 12:00am October 09, 2024 7:39am Start: 08-19-2023 End: 03-16-2024 take 8 mg by mouth twice daily Tizanidine Active 8 MG PO Twice daily March 16, 2024 11:59am Start: 03-10-2023 take 2 tablets by mo [facility] in the morning, then take 2 tablets by mouth at bedtime tiZANidine (ZANAFLEX) 4 mg tablet Indications: Muscle spasm Take 2 tablets (8 mg total) by mouth in the morning and 2 tablets (8 mg total) before bedtime. 0 03/10/2023 Active Start: 07-01-2021 take 8 mg by mouth twice daily 8 mg, Oral, 2 TIMES DAILY, First dose on Wed07/01/21 at 2100 Start: 10-21-2020 take 8 mg by mouth twice daily 8 mg, Oral, 2 TIMES DAILY, First dose on Wed10/21/20 at 0900 Start: 10-17-2020 take 1 mg by mouth e very eight hours Zanaflex 4 mg Tab mg tab(s), Oral, q8hr, Refills(s) 0 Start Date: 10/17/20 Status: Ordered Start: 10-05-2020 End: 08-18-2021 take 8 mg by mouth twice daily Tizanidine Discontinued 8 MG PO Twice daily October 04, 2020 11:00pm August 18, 2021 10:41am Start: 09-12-2020 End: 09-12-2020 tiZANidine (ZANAFLEX) tablet 8 mg Start: 07-20-2020 take 8 mg by mouth twice daily 8 mg, Oral, 2 TIMES DAILY, First dose on 07/20/20 at 2100 Start: 07-02-2014 End: 08-19-2023 Tizanidine (Zanaflex) 4 mg c apsule Discontinued 8 MG PO Twice daily August 18, 2021 11:41am August 13, 2023 3:13pm take 4 capsules by m outh in the morning tiZANidine (Zanaflex) 2 MG capsule Take 8 mg by mouth in the morning and 8 mg before bedtime. Active End: 04-22-2024 take 1 tablet by mouth every twelve hours tiZANidine (Zanaflex) 4 MG tablet Take 4 mg by mouth every 12 (twelve) hours. 04/22/2024 Discontinued take 1 tablet by brittany th every twelve hours Zanaflex 4 MG 1 tablet as needed Orally bid Active Zanaflex Active take 2 tablets by mo uth every twelve hours Comment on above: Take 8 mg by mouth t wice daily. zolpidem tartrate 10 mg oral tablet (20 sources) gamma-Aminobutyric Acid-ergic Agonist Start: 10-17-2020 take 1 tablet by mouth once daily at bedtime Zolpidem 10 mg tablet Active 10 MG PO Daily at bedtime September 20, 2023 12:00am Start: 01-20-2018 take 10 mg by mouth once daily at bedtime Zolpidem Active 10 MG PO Daily at bedtime January 19, 2018 11:00pm May repeat x1 in 30 minutes if needed, max 10 mg Start: 07-02-2014 End: 09-20-2023 take 2 tablets by mouth once daily at bedtime as needed Zolpidem (Ambien) 5 mg tablet Discontinued 10 MG PO Daily at bedtime as needed for Insomnia January 20, 2018 12:00am September 20, 2023 11:38am May repeat x1 in 30 minutes if needed, max 10 mg Start: 07-02-2014 take 1 tablet by brittany th once daily at bedtime zolpidem (AMBIEN) 5 mg tablet Take 5 mg by mouth daily at bedtime. 0 07/02/2014 Active Ambien Active Comment on above: Take 5 mg by mouth d aily at bedtime. Take 10 mg by mouth daily at bedtime. Completed/Discontinued Medications Medication Drug Class(es) Dates Sig (Normalized) Sig (Original) (No Medication Selected) (8 sources) Start: 07-02-2014 End: 01-05-2022 (No Medication Selected) by INTRATHECAL route continuous. bupivicaine/hydromor phone 0 07/02/2014 01/05/2022 Discontinued (Course of therapy completed) Start: 07-02-2014 (No Medication Selected) by INTRATHECAL route continuous. bupivicaine/hydromorphone 0 07/02/2014 Active Comment on above: by INTRATHECAL route continuous. bupivicaine/hydromorphone acetaminophen 325 mg / HYDROcodone bitartrate 5 mg oral tablet (20 sources) Opioid Agonist Start: 08-10-2019 End: 08-10-2019 HYDROcodone-[place] taminophen (NORCO) 5-325 MG per tablet 2 tablet Start: 07-11-2018 End: 08-11-2018 take 1 tablet by mouth every four hours as needed Hydrocodone-Acetaminophen 5-325 mg Table t Discontinued 1 TAB PO Q4H as needed for port removal July 11, 2018 1:00am August 11, 2018 1:14am Start: 01-04-2013 Vicodin 500 mg -5 mg Tab 1 tab(s), Oral, q8hr PRN Pain, 10 tab(s), Refill(s) 0, 0, Print Requisition, Tab Start Date: 01/04/13 Status: Ordered acetaminophen 325 mg / oxyCODONE hydrochloride 5 mg oral tablet (2 sources) Opioid Agonist Start: 07-20-2020 End: 07-20-2020 oxyCODONE-acetaminophen (PERCOCET) 5-325 MG per tablet 2 tablet Start: 07-20-2020 End: 07-20-2020 take 1 tablet by mouth every six hours as needed for pain oxyCODONE-acetaminophen (PERCOCET) 5-325 MG per tablet Indications: Non-surgical abdominal pain Take 1 tablet by mouth every 6 hours as needed for Pain for up to 3 days. 10 tablet 0 07/20/2020 07/20/2020 Discontinued atorvastatin 40 mg oral tablet (4 sources) HMG-CoA Reductase Inhibitor End: 10-20-2020 atorvastatin (LIPITOR) 40 MG tablet atorvastatin 40 mg tablet 0 10/20/2020 Discontinued (Therapy completed) baclofen 20 mg oral tablet (20 sources) gamma-Aminobutyric Acid-ergic Agonist Start: 11-06-2020 End: 08-18-2021 Baclofen 20 mg tablet Discontinued MG TABLET November 06, 2020 12:00am August 18, 2021 11:39am Start: 11-06-2020 End: 08-18-2021 Baclofen Discontinued MG TAB LET November 05, 2020 11:00pm August 18, 2021 10:39am benzonatate 200 mg oral capsule (14 sources) Non-narcotic Antitussive Start: 08-08-2023 End: 09-20-2023 Benzonatate 200 mg capsule Discontinued 200 MG PO 2-3 TIMES PER DAY as needed for cough August 08, 2023 1:00am September 20, 2023 11:46am calcium chloride 0.0014 meq/ml / potassium chloride 0.004 meq/ml / sodium chloride 0.103 meq/ml / sodium lactate 0.028 meq/ml injectable solution (3 sources) Start: 05-31-2022 End: 05-31-2022 lactated ringers bolus Start: 03-23-2022 End: 03-24-2022 lactated ringers bolus Start: 07-21-2020 Intravenous, a t 75 mL/hr, CONTINUOUS, Starting 07/21/20 at 0800 calcium gluconate 1,000 mg in dextrose 5 % 100 mL IVPB (1 source) Start: 01-25-2021 End: 01-25-2021 calcium gluconate 1,000 mg in dextrose 5 % 100 mL IVPB cefTRIAXone 1000 mg injection (1 source) Cephalosporin Antibacterial Start: 12-07-2020 End: 12-07-2020 cefTRIAXone (ROCEPHIN) injection 1,000 mg cetirizine hydrochloride 10 mg oral tablet (20 sources) Histamine-1 Receptor Antagonist Start: 10-08-2023 End: 05-15-2024 take 1 tablet by mouth once daily Cetirizine (Zyrtec) 10 mg tablet Discontinued 10 MG PO daily October 08, 2023 12:00am May 15, 2024 7:29am citalopram 20 mg oral tablet (8 sources) Serotonin Reuptake Inhibitor Start: 07-02-2014 End: 01-05-2022 take 1 tablet by mouth once daily citalopram (CELEXA) 20 mg tablet Take 20 mg by mouth once daily. 0 07/02/2014 01/05/2022 Discontinued (Course of therapy completed) Comment on above: Take 20 mg by mouth once daily. dexamethasone phosphate 10 mg/ml injectable solution (2 sources) Corticosteroid Start: 12-04-2022 End: 12-04-2022 dexamethasone (DECADRON) injection 8 mg Start: 03-24-2022 End: 03-24-2022 dexamethasone (DECADRON) inj ection 4 mg diazePAM 10 mg oral tablet (1 source) Benzodiazepine End: 09-11-2020 diazePAM (VALIUM) 10 MG tablet diazepam 10 mg tablet 0 09/11/2020 Discontinued (LIST CLEANUP) 1 ml diphenhydrAMINE hydrochloride 50 mg/ml cartridge (20 sources) Histamine-1 Receptor Antagonist Start: 03-02-2024 End: 03-02-2024 25 mg, IntraVENous, ONCE, 1 dose, On Rani 03/02/24 at 1030, IV Push at rate not to exceed 25 mg/min. Start: 12-04-2022 End: 12-04-2022 diphenhydrAMINE (BENADRYL) i njection 25 mg Start: 07-03-2021 End: 07-03-2021 diphenhydrAMINE (BENADRYL) i njection 25 mg Start: 01-27-2021 End: 01-27-2021 diphenhydrAMINE (BENADRYL) i njection 25 mg Start: 01-27-2021 End: 01-27-2021 diphenhydrAMINE (BENADRYL) i njection 50 mg Start: 12-07-2020 End: 12-07-2020 diphenhydrAMINE (BENADRYL) i njection 50 mg Start: 10-20-2020 End: 10-20-2020 diphenhydrAMINE (BENADRYL) i njection 50 mg Start: 09-11-2020 End: 09-11-2020 diphenhydrAMINE (BENADRYL) i njection 25 mg Start: 08-10-2019 End: 08-10-2019 diphenhydrAMINE (BENADRYL) i njection 25 mg Start: 07-02-2014 take 25-50 mg by brittany th every six hours as needed diphenhydrAMINE (BENADRYL) 25 mg capsule Take 25-50 mg by mouth every 6 hours as needed. 0 07/02/2014 Active Comment on above: Take 25-50 mg by brittany th every 6 hours as needed. docusate sodium 100 mg oral capsule (20 sources) Start: 10-10-2020 End: 05-13-2023 take 1 capsule by mouth once daily Docusate Sodium (Dulcolax Stool Softener (Dss)) 100 mg capsule Discontinued 100 MG PO Daily January 15, 2023 12:00am May 13, 2023 1:57pm Start: 07-29-2020 End: 10-10-2020 take 1 capsule by mouth twice daily Docusate Sodium (Colace) 100 mg capsule Active 100 MG PO Twice daily October 10, 2020 3:51pm take 1 capsule by mo uth twice daily docusate sodium (COLACE) 50 MG capsule Take 1 capsule by mouth 2 times daily Active Comment on above: Take 100 mg by mouth twice daily. doxycycline hyclate 100 mg oral capsule (20 sources) Tetracycline-cla ss Drug Start: 08-08-2023 End: 09-20-2023 take 1 capsule by mouth twice daily Doxycycline Hyclate 100 mg capsule Discontinued 100 MG PO Twice daily 26 03August 08, 2023 1:00am September 20, 2023 11:47am Start: 03-18-2022 take 1 tablet by brittany th every twelve hours Doxycycline Hyclate 100 MG 1 tablet Orally Twice a day for 10 day(s) Mar, Not-Taking Start: 07-25-2021 take 1 tablet by brittany th every twelve hours Doxycycline Hyclate 100 MG 1 tablet Orally every 12 hrs for 10 day(s) Jul, Not-Taking Start: 07-13-2018 End: 08-11-2018 take 1 capsule by mouth twice daily Doxycycline Hyclate 100 mg Capsule Discontinued 100 MG PO Twice daily July 13, 2018 1:00am August 11, 2018 1:11am 2 ml droperidol 2.5 mg/ml injection (2 sources) Dopamine-2 Receptor Antagonist Start: 03-02-2024 End: 03-02-2024 1.25 mg, IntraVENous, ONCE, 1 dose, On Rani 03/02/24 at 1030 Start: 12-04-2022 End: 12-04-2022 droperidol (INAPSINE) inject ion 1.25 mg DULoxetine 60 mg delayed release oral capsule (2 sources) Serotonin and Norepinephrine Reuptake Inhibitor End: 04-22-2024 take 1 capsule by mouth once daily DULoxetine (Cymbalta) [address] capsule Take 60 mg by mouth 1 (one) time each day at the same time. 04/22/2024 Discontinued 2 ml famotidine 10 mg/ml injection (11 sources) Histamine-2 Receptor Antagonist Start: 01-25-2021 End: 01-25-2021 famotidine (PEPCID) injection 20 mg Start: 07-21-2020 famotidine (PE PCID) injection 20 mg Start: 02-02-2019 End: 02-02-2019 famotidine (PEPCID) injectio n 20 mg Start: 07-19-2014 End: 01-05-2022 take 1 tablet by mouth once daily at bedtime famotidine (PEPCID) 40 mg tablet Take 1 tablet by mouth daily at bedtime. 30 tablet 5 07/19/2014 01/05/2022 Discontinued (Course of therapy completed) Comment on above: Take 1 tablet by brittany th daily at bedtime. 2 ml fentaNYL 0.05 mg/ml injection (9 sources) Opioid Agonist Start: 09-06-2023 End: 09-06-2023 fentaNYL (SUBLIMAZE) injection 25 mcg Start: 04-13-2022 End: 04-13-2022 fentaNYL (SUBLIMAZE) injecti on 25 mcg Start: 04-13-2022 End: 04-13-2022 fentaNYL (SUBLIMAZE) injecti on 50 mcg Start: 10-16-2020 End: 10-16-2020 fentaNYL (SUBLIMAZE) injecti on 50 mcg Start: 09-11-2020 End: 09-11-2020 fentaNYL (SUBLIMAZE) injecti on 25 mcg Start: 09-11-2020 End: 09-11-2020 fentaNYL (SUBLIMAZE) injecti on 50 mcg Start: 09-07-2020 End: 09-07-2020 fentaNYL (SUBLIMAZE) injecti on 25 mcg furosemide 20 mg oral tablet (20 sources) Loop Diuretic Start: 01-07-2024 End: 04-11-2024 take 1 tablet by mouth once daily Furosemide (Lasix) 20 mg tablet Discontinued 20 MG PO Daily 3 January 07, 2024 12:00am April 11, 2024 11:17am Start: 07-29-2020 End: 04-22-2024 take 1 tablet by mouth once daily as needed for edema Furosemide (Lasix) 40 mg Tablet Discontinued 40 MG PO Daily as needed for Edema 0 July 29, 2020 4:49pm October 05, 2020 11:14am On Hold: until stable volume status with bleed Start: 02-03-2019 End: 02-03-2019 furosemide (LASIX) injection 40 mg Start: 01-20-2018 End: 07-29-2020 take 1 tablet by mouth twice daily as needed for edema Furosemide (Lasix) 40 mg Tablet Discontinued 40 MG PO Twice daily as needed for Edema January 20, 2018 12:00am July 29, 2020 4:49pm gabapentin 300 mg oral capsule (20 sources) Anti-epileptic Agent Start: 06-15-2022 End: 04-11-2024 take 1 capsule by mouth twice daily Gabapentin 300 mg capsule Discontinued 300 MG PO Twice daily July 09, 2023 1:00am April 11, 2024 11:17am Start: 06-15-2022 End: 09-11-2020 gabapentin (NEURONTIN) 300 m g capsule Take 300 mg by mouth. 0 06/15/2022 Active take 1 capsule by mo [facility] in the morning gabapentin (NEURONTIN) 300 MG capsule Take 1 capsule by mouth in the morning and 1 capsule in the evening. Active Comment on above: Take 300 mg by mouth . gemfibrozil 600 mg oral tablet (1 source) Peroxisome Proliferator Receptor alpha Agonist End: 09-11-2020 gemfibrozil (LOPID) 600 MG tablet gemfibrozil 600 mg tablet 0 09/11/2020 Discontinued (LIST CLEANUP) Glucagon (Human Recombinant) (Glucagon Emergency Kit (Human)) 1 mg Recon Soln (17 sources) Start: 07-11-2018 End: 09-20-2023 Glucagon (Human Recombinant) (Glucagon Emergency Kit (Human)) 1 mg Recon Soln Discontinued 1 MG IM As Directed as needed for Hypoglycemia July 11, 2018 1:00am September 20, 2023 1:00pm Start: 07-11-2018 End: 09-20-2023 Glucagon (Human Recombinant) (Glucagon Emergency Kit (Human)) 1 mg Recon Soln Discontinued 1 MG IM As Directed as needed for Hypoglycemia July 11, 2018 12:00am September 20, 2023 12:00pm Start: 07-11-2018 End: 09-20-2023 Glucagon (Human Recombinant) (Glucagon Emergency Kit (Human)) 1 mg Recon Soln Discontinued 1 MG IM As Directed July 11, 2018 12:00am September 20, 2023 12:00pm Start: 07-11-2018 End: 09-20-2023 Glucagon (Human Recombinant) (Glucagon Emergency Kit (Human)) 1 mg Recon Soln Discontinued 1 MG IM As Directed July 11, 2018 1:00am September 20, 2023 1:00pm Start: 07-11-2018 Glucagon (Nereyda n Recombinant) (Glucagon Emergency Kit (Human)) 1 mg Recon Soln Active 1 MG IM As Directed July 11, 2018 1:00am Start: 07-11-2018 Glucagon (Nereyda n Recombinant) (Glucagon Emergency Kit (Human)) 1 mg Recon Soln Active 1 MG IM As Directed July 11, 2018 12:00am 1000 ml glucose 500 mg/ml in jection (9 sources) Start: 01-25-2021 End: 01-25-2021 dextrose 50 % IV solution Start: 12-07-2020 End: 12-07-2020 dextrose 50 % IV solution Start: 10-21-2020 glucose (GLUTO SE) 40 % oral gel 15 g Start: 10-21-2020 dextrose 50 % IV solution Start: 10-21-2020 dextrose 5 % s olution Start: 07-20-2020 15 g, Oral, W[place] N, Low blood sugar, Starting 07/20/20 at 1926 If blood glucose less than 50 mg/dL and patient ALERT and TOLERATING PO, give 2 tubes glucose gel. If blood glucose less than 70 mg/dL and patient ALERT and TOLERATING PO, give 1 tube glucose gel. Repeat blood glucose in 15 minutes. If blood glucose is less than 70 mg/dL, repeat treatment and recheck blood glucose in 15 minutes x2 and notify provider. Start: 07-20-2020 12.5 g, Intrav enous, PRN, Low blood sugar, Blood glucose less than 70 mg/dL and patient NOT ALERT or NPO., Starting 07/20/20 at 1926 If patient does not respond within 5 minutes, repeat dose x1. Start D5W at 100 mL/hour until ordering provider can be reached. Repeat blood glucose in 15 minutes. If blood glucose is less than 70 mg/dL, repeat treatment and recheck blood glucose in 15 minutes x2. If using Glucostabilizer, dose as instructed per system. Start: 07-20-2020 100 mL/hr, Int ravenous, at 100 mL/hr, PRN, Low blood sugar, Starting 07/20/20 at 1926 Start infusion following administration of dextrose 50% or glucagon. Start: 01-13-2019 End: 01-13-2019 dextrose 50 % IV solution haloperidol 2 mg oral tablet (20 sources) Typical Antipsychotic Start: 11-06-2020 End: 09-23-2021 take 1 mg by mouth twice daily Haloperidol 2 mg tablet Discontinued 1 MG PO Twice daily November 06, 2020 12:00am September 23, 2021 10:23am Start: 11-06-2020 End: 09-23-2021 take 1 mg by mouth twice daily Haloperidol Discontinue d 1 MG PO Twice daily November 05, 2020 11:00pm September 23, 2021 9:23am Start: 10-02-2020 End: 10-04-2020 take 1 tablet by mouth once daily Haloperidol 2 mg tablet Discontinued 2 MG PO Daily October 02, 2020 12:00am October 04, 2020 1:00pm Start: 10-01-2020 End: 10-02-2020 take 1 tablet by mouth twice daily Haloperidol 1 mg Tablet Discontinued 1 MG PO Twice Daily at 0900 and 1400 60 30 October 01, 2020 12:00am October 02, 2020 6:30pm Start: 01-13-2019 End: 01-13-2019 haloperidol lactate (HALDOL) injection 2 mg take 1 tablet by brittany four times daily as needed for nausea haloperidol (HALDOL) 2 MG tablet Take 2 mg by mouth 4 times daily as needed (for nausea) 0 Suspended HEPARIN LOCK FLUSH IV (1 source) Start: 10-17-2020 HEPARIN LOCK F LUSH IV Inject 5 mLs into the skin 0 10/17/2020 Suspended 1 ml hydrALAZINE hydrochloride 20 mg/ml injection (3 sources) Arteriolar Vasodilator Start: 03-02-2024 End: 03-02-2024 20 mg, IntraVENous, ONCE, 1 dose, On Rani 03/02/24 at 1330 Start: 11-19-2022 End: 11-19-2022 hydrALAZINE (APRESOLINE) inj ection 10 mg Start: 07-21-2020 hydrALAZINE (A PRESOLINE) injection 10 mg hydroCHLOROthiazide 100 mg oral tablet (20 sources) Thiazide Diuretic Start: 02-20-2022 End: 06-22-2023 take 1 tablet by mouth once daily Hydrochlorothiazide 100 mg Tablet Discontinued 100 MG PO Daily February 20, 2022 12:00am June 22, 2023 2:01pm take 1 tablet by mouth once tamiko y hydroCHLOROthiazide (HYDRODIURIL) 25 MG tablet Take 1 tablet by mouth daily Active Comment on above: Take 25 mg by mouth once daily. HYDROmorphone hydrochloride 2 mg oral tablet (20 sources) Opioid Agonist Start: End: take 1 tablet by mouth every six hours as needed for pain Hydromorphone (Dilaudid) 2 mg tablet Discontinued 2 MG PO Every 6 hours as needed for pain 03 01September 11, 2024 November 06, 2024 9:38am Start: 03-02-2024 End: 03-02-2024 take 1 dose by mouth every hour 1 mg, IntraVENous, ONC E, 1 dose, On Rani 03/02/24 at 1030, If oral and IV narcotics ordered, use oral first and only use IV if oral is ineffective or cannot take oral. Do Not give oral and IV within 1 hour of each other unless specifically ordered. Start: 09-06-2023 End: 09-06-2023 HYDROmorphone HCl PF (DILAUD ID) injection 1 mg Start: 11-19-2022 End: 11-19-2022 HYDROmorphone (DILAUDID) inj ection 1 mg Start: 11-19-2022 End: 11-19-2022 HYDROmorphone (DILAUDID) inj ection 1 mg Start: 08-27-2022 End: 08-27-2022 HYDROmorphone (DILAUDID) inj ection 1 mg Start: 07-02-2022 End: 07-08-2022 take 1 tablet by mouth every six hours as needed HYDROmorphone (DILAUDID) 2 mg tablet Indications: Colitis Take 1 tablet by mouth every 6 hours as needed for up to 6 days. 25 tablet 0 07/02/2022 07/08/2022 Active Start: 05-31-2022 End: 05-31-2022 HYDROmorphone (DILAUDID) inj ection 0.25 mg Start: 05-31-2022 End: 05-31-2022 HYDROmorphone (DILAUDID) inj ection 0.5 mg Start: 05-15-2022 End: 05-22-2022 take 0.5-1 tablets by mouth every six hours as needed HYDROmorphone (DILAUDID) 2 mg tablet Indications: Postoperative pain Take 0.5-1 tablets by mouth every 6 hours as needed for up to 7 days. 28 tablet 0 05/15/2022 05/22/2022 Active Start: 09-24-2021 Dilaudid Refil ls(s) 0 Start Date: 09/24/21 Status: Ordered Start: 09-23-2021 End: 01-07-2024 take 1 mg by mouth every hour as needed for pain Hydromorphone (Dilaudid) 4 mg Tablet Discontinued 1 MG PO Q1H as needed for Pain September 23, 2021 12:00am January 07, 2024 10:09am Start: 09-23-2021 End: 01-07-2024 take 2 mg by mouth every two hours as needed for pain Hydromorphone (Dilaudid) 4 mg Tablet Discontinued 2 MG PO Q2H as needed for Pain September 23, 2021 12:00am January 07, 2024 10:09am Start: 09-23-2021 take 1 tablet by brittany th every four hours Hydromorphone (Dilaudid) 4 mg Tablet Active 4 MG PO Q4H September 23, 2021 12:00am Start: 07-01-2021 End: 07-02-2021 HYDROmorphone (DILAUDID) inj ection 3 mg Start: 07-01-2021 HYDROmorphone (DILAUDID) tablet 2 mg Start: 01-29-2021 End: 01-29-2021 HYDROmorphone (DILAUDID) inj ection 2 mg Start: 01-27-2021 End: 01-27-2021 HYDROmorphone (DILAUDID) inj ection 1 mg Start: 01-25-2021 End: 01-25-2021 HYDROmorphone (DILAUDID) inj ection 1 mg Start: 12-07-2020 End: 12-07-2020 HYDROmorphone (DILAUDID) inj ection 1 mg Start: 12-07-2020 End: 12-07-2020 HYDROmorphone (DILAUDID) inj ection 0.5 mg Start: 09-11-2020 End: 09-11-2020 HYDROmorphone (DILAUDID) inj ection 1 mg Start: 07-21-2020 End: 07-21-2020 HYDROmorphone (DILAUDID) inj ection 1 mg Start: 02-03-2019 End: 02-03-2019 HYDROmorphone (DILAUDID) inj ection 1 mg Start: 02-03-2019 End: 02-03-2019 HYDROmorphone (DILAUDID) inj ection 1 mg take 2 tablets by mo [facility] every four hours as needed Dilaudid 2 mg oral tablet ; 2 tab(s) orally every 4 hours, As Needed Quantity: 0 Refills: 0 Ordered: 29-Aug-2022 Mecca Morrell Generic Substitution Allowed take 1 tablet by brittany every two hours as needed for pain End: 09-11-2020 take 1 tablet by mouth every six hours as needed for pain HYDROmorphone (DILAUDID) 2 MG tablet Take 2 mg by mouth every 6 hours as needed for Pain. 0 Active Comment on above: Take 0.5-1 tablets b y mouth every 6 hours as needed for up to 7 days. Take 1 tablet by brittany th every 6 hours as needed for up to 6 days. Insulin Degludec (Tresiba Flextouch U-100) 100 unit/mL (3 mL) insulin pen (14 sources) Start: End: inject 1 dose by subcutaneous injection once daily Insulin Degludec (Tresiba Flextouch U-100) 100 unit/mL (3 mL) insulin pen Discontinued 0 SUBCUT .COMPLEX September 19, 2023 11:00pm September 20, 2023 12:00pm 30 units when off of insulin pump Subcutaneous daily; Must wait 24 hours after last dose before restarting insulin pump Start: 09-20-2023 End: 09-20-2023 inject 1 dose by subcutaneous injection once daily Insulin Degludec (Tresiba Flextouch U-100) 100 unit/mL (3 mL) insulin pen Discontinued 0 SUBCUT .COMPLEX September 20, 2023 12:00am September 20, 2023 1:00pm 30 units when off of insulin pump Subcutaneous daily; Must wait 24 hours after last dose before restarting insulin pump Start: 09-20-2023 inject 1 dose by sub cutaneous injection once daily Insulin Degludec (Tresiba Flextouch U-100) 100 unit/mL (3 mL) insulin pen Active 0 SUBCUT .COMPLEX September 20, 2023 12:00am 30 units when off of insulin pump Subcutaneous daily; Must wait 24 hours after last dose before restarting insulin pump insulin detemir 100 unt/ml injectable solution (20 sources) Insulin Analog Start: 07-11-2018 End: 07-25-2020 inject 14 [IU] by subcutaneous injection twice daily as needed Insulin Detemir U-100 (Levemir U-100 Insulin) 100 unit/mL Solution Discontinued 14 UNIT SUBCUT Twice daily as needed for if insulin pump fails July 11, 2018 1:00am July 26, 2020 12:33am Insulin Lispro (Humalog U-100 Insulin) 100 unit/mL Solution (20 sources) Start: 01-15-2023 End: 05-13-2023 Insulin Lispro (Humalog U-100 Insulin) 100 unit/mL Solution Discontinued SOLUTION January 15, 2023 12:00am May 13, 2023 1:58pm Start: 01-15-2023 End: 05-13-2023 Insulin Lispro (Humalog U-10 0 Insulin) 100 unit/mL Solution Discontinued SOLUTION January 14, 2023 11:00pm May 13, 2023 12:58pm Start: 01-15-2023 Insulin Lispro (Humalog U-100 Insulin) 100 unit/mL Solution Active SOLUTION January 15, 2023 12:00am Insulin Lispro (Humalog U-100 Insulin) 100 unit/mL solution (14 sources) Start: 09-20-2023 End: 12-01-2023 inject 80 [IU] by subcutaneous injection once daily Insulin Lispro (Humalog U-100 Insulin) 100 unit/mL solution Discontinued 0 CNTSUBQINF .COMPLEX September 19, 2023 11:00pm December 01, 2023 9:28am 80 units/day insulin pump SQ As Directed; Start: 09-20-2023 End: 12-01-2023 inject 80 [IU] by subcutaneous injection once daily Insulin Lispro (Humalog U-100 Insulin) 100 unit/mL solution Discontinued 0 CNTSUBQINF .COMPLEX September 20, 2023 12:00am December 01, 2023 10:28am 80 units/day insulin pump SQ As Directed; Start: 09-20-2023 inject 80 [IU] by meredith bcutaneous injection once daily Insulin Lispro (Humalog U-100 Insulin) 100 unit/mL solution Active 0 CNTSUBQINF .COMPLEX September 20, 2023 12:00am 80 units/day insulin pump SQ As Directed; Insulin Pump From Home (20 sources) Start: 07-11-2018 End: 09-20-2023 Insulin Pump From Home Disco ntinued 0 .ROUTE .COMPLEX July 11, 2018 12:00am September 20, 2023 10:46am Novolog Reglar basal rate 8618-5206= 0.700, 0691-4522=0.775, 5571-2590=0.750. Unit to Carb ratio 1:13 Start: 07-11-2018 End: 09-20-2023 Insulin Pump From Home Disco ntinued 0 .ROUTE .COMPLEX July 11, 2018 1:00am September 20, 2023 11:46am Novolog Reglar basal rate 8744-8438= 0.700, 5302-3954=0.775, 6710-9020=0.750. Unit to Carb ratio 1:13 Start: 07-11-2018 Insulin Pump F rom Home Active 0 .ROUTE .COMPLEX July 11, 2018 12:00am Novolog Reglar basal rate 1614-8827= 0.700, 9585-8245=0.775, 7003-4785=0.750. Unit to Carb ratio 1:13 Start: 07-11-2018 Insulin Pump F rom Home Active 0 .ROUTE .COMPLEX July 11, 2018 1:00am Novolog Reglar basal rate 0590-4044= 0.700, 9340-6482=0.775, 9022-6498=0.750. Unit to Carb ratio 1:13 Insulin Pump-Infus. Set-Meter (20 sources) Start: 07-11-2018 End: 07-11-2018 Insulin Pump-Infus. Set-Mete r Discontinued KIT July 11, 2018 12:00am July 11, 2018 12:00pm Novolog Basal rate: midnight-0300=0.700 / 1147-9863=0.775 / 3567-6776=0.750. Unit to carb ratio 1:13 Start: 07-11-2018 End: 07-11-2018 Insulin Pump-Infus. Set-Mete r Discontinued KIT July 11, 2018 1:00am July 11, 2018 1:00pm Novolog Basal rate: midnight-0300=0.700 / 1526-7481=0.775 / 2690-8546=0.750. Unit to carb ratio 1:13 Insulin Pump-Infus. Set-Meter Kit (7 sources) Start: 07-11-2018 End: 07-11-2018 Insulin Pump-Infus. Set-Mete r Kit Discontinued KIT July 11, 2018 1:00am July 11, 2018 1:00pm Novolog Basal rate: midnight-0300=0.700 / 2461-0436=0.775 / 3180-7716=0.750. Unit to carb ratio 1:13 Start: 07-11-2018 End: 07-11-2018 Insulin Pump-Infus. Set-Mete r Kit Discontinued KIT July 11, 2018 12:00am July 11, 2018 12:00pm Novolog Basal rate: midnight-0300=0.700 / 5220-5184=0.775 / 2416-4730=0.750. Unit to carb ratio 1:13 insulin, regular, human 100 unt/ml injectable solution (2 sources) Insulin Start: 01-25-2021 End: 01-25-2021 insulin regular (HUMULIN R;NOVOLIN R) injection 10 Units Start: 12-07-2020 End: 12-07-2020 insulin regular (HUMULIN R;N OVOLIN R) injection 10 Units iopamidol (ISOVUE-370) 76 % injection 18 mL (1 source) Start: 07-20-2020 End: 07-20-2020 iopamidol (ISOVUE-370) 76 % injection 18 mL iopamidol (ISOVUE-370) 76 % injection 75 mL (5 sources) Start: 03-02-2024 End: 03-02-2024 take 1 dose intravenously once 75 mL, IntraVENous, IMG ONCE PRN, 1 dose, Starting on Rani 03/02/24 at 1036, Until Rani 03/02/24 at 1043, Other Start: 05-28-2022 End: 05-28-2022 iopamidol (ISOVUE-370) 76 % injection 75 mL Start: 10-20-2020 End: 10-20-2020 iopamidol (ISOVUE-370) 76 % injection 75 mL Start: 09-07-2020 End: 09-07-2020 iopamidol (ISOVUE-370) 76 % injection 75 mL Start: 07-20-2020 End: 07-20-2020 iopamidol (ISOVUE-370) 76 % injection 75 mL 2.5 ml iron sucrose 20 mg/ml injection (1 source) Parenteral Iron Replacement Start: 07-02-2021 End: 07-02-2021 iron sucrose (VENOFER) injection 100 mg Ketamine (KETALAR) injection syringe 10 mg (2 sources) Start: 01-29-2021 End: 01-29-2021 Ketamine (KETALAR) injection syringe 10 mg Start: 10-16-2020 End: 10-16-2020 Ketamine (KETALAR) injection syringe 10 mg Ketamine (KETALAR) injection syringe 15 mg (1 source) Start: 08-10-2019 End: 08-10-2019 Ketamine (KETALAR) injection syringe 15 mg labetalol hydrochloride 5 mg/ml injectable solution (2 sources) beta-Adrenergic Willis Start: 03-02-2024 End: 03-02-2024 10 mg, IntraVENous, ONCE, 1 dose, On Rani 03/02/24 at 1230 Start: 04-13-2022 End: 04-13-2022 labetalol (NORMODYNE;TRANDAT E) injection 10 mg labetalol (NORMODYNE;TRANDATE) injection syringe 20 mg (1 source) Start: 01-13-2019 End: 01-13-2019 labetalol (NORMODYNE;TRANDATE) injection syringe 20 mg lactulose 667 mg/ml oral solution (1 source) Osmotic Laxative Start: 07-20-2020 End: 07-20-2020 lactulose encephalopathy (GENERLAC) 10 GM/15ML SOLN solution Take 15 mLs by mouth 2 times daily 150 mL 0 07/20/2020 07/20/2020 Discontinued 10 ml lidocaine hydrochloride 20 mg/ml injection (1 source) Antiarrhythmic, Amide Local Anesthetic Start: 03-24-2022 End: 03-24-2022 lidocaine PF 2 % injection 5 mL loratadine 10 mg oral tablet (1 source) End: 09-11-2020 loratadine (CLARITIN) 10 MG tablet loratadine 10 mg tablet 0 09/11/2020 Discontinued (LIST CLEANUP) 1 ml LORazepam 2 mg/ml injection (10 sources) Benzodiazepine Start: 12-04-2022 End: 12-04-2022 LORazepam (ATIVAN) injection 1 mg Start: 03-23-2022 End: 03-23-2022 LORazepam (ATIVAN) injection 1 mg Start: 07-01-2021 take 1 mg by mouth e very four hours as needed for anxiety 1 mg, Oral, EVERY 4 HOURS PRN, Anxiety, Starting on Wed07/01/21 at 1601 Start: 01-27-2021 End: 01-27-2021 LORazepam (ATIVAN) injection 1 mg take 2 tablets by mo [facility] every four hours as needed for anxiety LORazepam (ATIVAN) 0.5 MG tablet Take 1 mg by mouth every 4 hours as needed for Anxiety. 0 Suspended take 1 tablet by brittany every four hours as needed for anxiety LORazepam (ATIVAN) 0.5 MG tablet Take 0.5 mg by mouth every 4 hours as needed for Anxiety. 0 Active End: 09-11-2020 LORazepam (ATIVAN) 1 MG tabl et lorazepam 1 mg tablet 0 09/11/2020 Discontinued (LIST CLEANUP) losartan potassium 100 mg oral tablet (20 sources) Angiotensin 2 Receptor Willis Start: 09-23-2021 End: 04-22-2024 take 1 tablet by mouth once daily Losartan 100 mg Tablet Discontinued 100 MG PO Daily February 20, 2022 12:00am June 22, 2023 2:03pm Comment on above: Take 100 mg by mouth once daily. lubiprostone (20 sources) Chloride Channel Activator Start: 04-13-2024 End: 08-02-2024 take 1 capsule by mouth twice daily Lubiprostone (Amitiza) 24 mcg capsule Discontinued 24 MCG PO Twice daily 60 April 13, 2024 11:12am August 02, 2024 10:41am Start: 04-13-2024 End: 08-02-2024 take 1 capsule by mouth twice daily Lubiprostone (Amitiza) 24 mcg capsule Discontinued 24 MCG PO Twice daily 60 April 13, 2024 10:12am August 02, 2024 9:41am Start: 04-13-2024 take 1 capsule by mo ut twice daily Lubiprostone (Amitiza) 24 mcg capsule Active 24 MCG PO Twice daily 60 April 13, 2024 10:12am Start: 10-18-2023 End: 04-13-2024 take 1 capsule by mouth twice daily Lubiprostone (Amitiza) 24 mcg capsule Discontinued 24 MCG PO Twice daily 60 October 18, 2023 8:51am April 13, 2024 11:12am Start: 10-18-2023 End: 04-13-2024 take 1 capsule by mouth twice daily Lubiprostone (Amitiza) 24 mcg capsule Discontinued 24 MCG PO Twice daily 60 October 18, 2023 7:51am April 13, 2024 10:12am Start: 10-18-2023 take 1 capsule by mo uth twice daily Lubiprostone (Amitiza) 24 mcg capsule Active 24 MCG PO Twice daily 60 October 18, 2023 7:51am Start: 10-18-2023 take 1 capsule by mo uth twice daily Lubiprostone (Amitiza) 24 mcg capsule Active 24 MCG PO Twice daily 60 October 18, 2023 8:51am Start: 01-15-2023 End: 10-18-2023 take 1 capsule by mouth twice daily Lubiprostone (Amitiza) 24 mcg capsule Discontinued 24 MCG PO Twice daily January 14, 2023 11:00pm October 18, 2023 7:52am Start: 01-15-2023 End: 10-18-2023 take 1 capsule by mouth twice daily Lubiprostone (Amitiza) 24 mcg capsule Discontinued 24 MCG PO Twice daily January 15, 2023 12:00am October 18, 2023 8:52am Start: 01-15-2023 take 1 capsule by mo uth twice daily Lubiprostone (Amitiza) 24 mcg capsule Active 24 MCG PO Twice daily January 15, 2023 12:00am Start: 01-15-2023 take 1 capsule by mo uth twice daily Lubiprostone (Amitiza) 24 mcg capsule Active 24 MCG PO Twice daily January 14, 2023 11:00pm Start: 01-15-2023 take 24 ug by mouth twice tamiko y Lubiprostone Active 24 MCG PO Twice daily January 14, 2023 11:00pm Start: 01-15-2023 take 24 ug by mouth twice tamiko y Lubiprostone Active 24 MCG PO Twice daily January 15, 2023 12:00am Start: 02-20-2022 End: 02-27-2022 take 1 capsule by mouth twice daily Lubiprostone (Amitiza) 24 mcg Capsule Discontinued 24 MCG PO Twice daily February 19, 2022 11:00pm February 27, 2022 9:33am Start: 02-20-2022 End: 02-27-2022 take 1 capsule by mouth twice daily Lubiprostone (Amitiza) 24 mcg Capsule Discontinued 24 MCG PO Twice daily February 20, 2022 12:00am February 27, 2022 10:33am Start: 02-20-2022 take 1 capsule by mo uth twice daily Lubiprostone (Amitiza) 24 mcg Capsule Active 24 MCG PO Twice daily February 20, 2022 12:00am Start: 10-09-2021 take 1 capsule by mo uth in the morning lubiprostone (Amitiza) 24 MCG capsule Take 24 mcg by mouth in the morning and 24 mcg in the evening. Take with meals. 02/22/2022 Active take 1 capsule by mo ut twice daily at mealtime Amitiza 24 MCG 1 capsule with food and water Orally Twice a day for 30 days Active Amitiza Active take 24 ug by mouth twice daily lubiprostone (AMITIZA ORAL) Take 24 mcg by mouth twice daily. 0 Active Comment on above: Take 24 mcg by mouth twice daily. Take 1 capsule by mo ut twice daily with meals. 100 ml magnesium sulfate 10 mg/ml injection (1 source) Start: 03-24-20 End: 03-24-20 magnesium sulfate 1000 mg in dextrose 5% 100 mL IVPB metFORMIN hydrochloride 500 mg oral tablet (1 source) Biguanide End: 09-12-19 metFORMIN (GLUCOPHAGE) 500 MG tablet metformin 500 mg tablet 0 09/11/2020 Discontinued (LIST CLEANUP) montelukast 10 mg oral tablet (20 sources) Leukotriene Receptor Antagonist Start: 01-21-20 End: 02-28-20 take 1 tablet by mouth once daily in the evening as needed Montelukast (Singulair) 10 mg Tablet Discontinued 10 MG PO Every evening as needed for Allergic Reaction January 20, 2018 12:00am February 27, 2022 10:33am End: 04-22-2024 Montelukast Sodium (SINGULAI R PO) Singulair 04/22/2024 Discontinued 1 ml morphine sulfate 2 mg/ml cartridge (20 sources) Opioid Agonist Start: 03-02-2024 End: 03-02-2024 take 1 dose by mouth every hour 2 mg, IntraVENous, ONCE, 1 dose, On Rani 03/02/24 at 1530, If oral and IV narcotics ordered, use oral first and only use IV if oral is ineffective or cannot take oral. Do Not give oral and IV within 1 hour of each other unless specifically ordered. Start: 03-02-2024 End: 03-02-2024 take 1 dose by mouth every hour 4 mg, IntraVENous, ONCE, 1 dose, On Rani 03/02/24 at 1345, If oral and IV narcotics ordered, use oral first and only use IV if oral is ineffective or cannot take oral. Do Not give oral and IV within 1 hour of each other unless specifically ordered. Start: 03-02-2024 End: 03-02-2024 take 1 dose by mouth every hour 4 mg, IntraVENous, ONCE, 1 dose, On [facility] 03/02/24 at 0915, If oral and IV narcotics ordered, use oral first and only use IV if oral is ineffective or cannot take oral. Do Not give oral and IV within 1 hour of each other unless specifically ordered. Start: 02-27-2024 End: 02-27-2024 take 1 dose by mouth every hour 4 mg, IntraVENous, ONCE, 1 dose, On [place] 02/27/24 at 1230, If oral and IV narcotics ordered, use oral first and only use IV if oral is ineffective or cannot take oral. Do Not give oral and IV within 1 hour of each other unless specifically ordered. Start: 12-02-2023 End: 12-03-2023 morphine injection 4 mg Start: 10-17-2023 End: 10-17-2023 morphine (PF) injection 2 mg Start: 11-19-2022 End: 11-19-2022 morphine injection 4 mg Start: 08-27-2022 End: 08-27-2022 morphine injection 4 mg Start: 05-28-2022 End: 05-28-2022 morphine (PF) injection 2 mg Start: 01-25-2021 End: 01-25-2021 morphine (PF) injection 2 mg Start: 01-25-2021 End: 01-25-2021 morphine injection 4 mg Start: 10-21-2020 End: 10-21-2020 morphine (PF) injection 2 mg Start: 10-21-2020 End: 10-21-2020 morphine (PF) injection 2 mg Start: 10-20-2020 End: 10-20-2020 morphine (PF) injection 2 mg Start: 09-12-2020 End: 09-12-2020 morphine injection 4 mg Start: 09-12-2020 End: 09-12-2020 morphine injection 4 mg Start: 09-10-2020 End: 09-12-2020 morphine injection 4 mg Start: 09-07-2020 End: 09-07-2020 morphine (PF) injection 2 mg Start: 07-20-2020 End: 07-22-2020 morphine injection 4 mg Start: 07-20-2020 End: 07-20-2020 take 2 mg by mouth every two hours as needed for pain 2 mg, Intravenous, EVERY 2 HOURS PRN, Pain Moderate (4-6), Starting 07/20/20 at 1928 If oral and IV narcotics ordered, use oral first and only use IV if oral is ineffective or cannot take oral. Do Not give oral and IV within 1 hour of each other unless specifically ordered. Start: 07-20-2020 End: 07-20-2020 morphine injection 6 mg Start: 02-02-2019 morphine injec tion 4 mg Start: 01-13-2019 End: 01-13-2019 morphine injection 4 mg End: 08-10-2019 MORPHINE SULFATE, PF, IJ 0.3 mg by Intrathecal route daily Morphine 20 mg / ml infusing intrathecally .30 mg daily 0 08/10/2019 Discontinued MORPHINE SULFATE , PF, IJ 0.3 mg by Intrathecal route daily Morphine 20 mg / ml infusing intrathecally .30 mg daily 0 Active Morphine Pump From Home (20 sources) Start: 07-11-2018 End: 07-25-2020 Morphine Pump From Home Disc ontinued 0 .ROUTE .COMPLEX July 11, 2018 12:00am July 25, 2020 11:33pm Morphine Pump concentration 20mg/ml delivering max dose 1mg daily Start: 07-11-2018 End: 07-25-2020 Morphine Pump From Home Disc ontinued 0 .ROUTE .COMPLEX July 11, 2018 1:00am July 26, 2020 12:33am Morphine Pump concentration 20mg/ml delivering max dose 1mg daily 1 ml nalbuphine hydrochloride 10 mg/ml injection (1 source) Opioid Agonist/Antagonist Start: 10-21-2020 End: 10-21-2020 nalbuphine (NUBAIN) injection 10 mg Start: 10-21-2020 End: 10-21-2020 nalbuphine (NUBAIN) injectio n 10 mg neomycin sulfate 500 mg oral tablet (20 sources) Aminoglycoside Antibacterial Start: 01-06-2022 neomycin 500 mg tablet Take 2 tablets by mouth at 9pm and take 2 tablets by mouth at 11pm the night before surgery. 4 tablet 0 01/06/2022 Active Comment on above: Take 2 tablets by mo [facility] at 9pm and take 2 tablets by mouth at 11pm the night before surgery. 24 hr niacin 500 mg extended release oral tablet (1 source) Nicotinic Acid End: 09-11-2020 niacin (NIASPAN) 500 MG extended release tablet niacin ER 500 mg tablet,extended release 24 hr 0 09/11/2020 Discontinued (LIST CLEANUP) niCARdipine (CARDENE) 25 mg in dextrose 5 % 250 mL infusion ([id number]) (1 source) Start: 07-21-2020 End: 07-22-2020 niCARdipine (CARDENE) 25 mg in dextrose 5 % 250 mL infusion ([id number]) NIFEdipine 20 mg oral capsule (20 sources) Dihydropyridine Calcium Channel Willis Start: 11-06-2020 End: 08-20-2021 take 3 capsules by mouth once daily Nifedipine 20 mg Capsule Discontinued 60 MG PO Daily November 06, 2020 12:00am August 20, 2021 3:36pm Start: 11-06-2020 End: 08-20-2021 take 60 mg by mouth once daily Nifedipine Discontinued 60 MG PO Daily November 05, 2020 11:00pm August 20, 2021 2:36pm Start: 10-21-2020 take 60 mg by mouth once daily 60 mg, Oral, DAILY, First dose on 10/21/20 at 0900 Do not crush or break. Start: 10-17-2020 NIFEdipine Ora l, Refills(s) 0 Start Date: 10/17/20 Status: Ordered Start: 09-12-2020 NIFEdipine (AD ALAT CC) extended release tablet 60 mg Start: 07-20-2020 take 60 mg by mouth once daily 60 mg, Oral, DAILY, First dose on 07/20/20 at 2000 Do not crush or break. Start: 01-20-2018 End: 07-29-2020 take 1 tablet by mouth once daily Nifedipine (Procardia Xl) 60 mg Tablet Extended Release 24hr Discontinued 60 MG PO Daily January 20, 2018 12:00am July 29, 2020 4:49pm nortriptyline 25 mg oral capsule (9 sources) Tricyclic Antidepressant Start: 07-19-2014 End: 01-05-2022 take 1 capsule by mouth once daily at bedtime nortriptyline (PAMELOR) 25 mg capsule Take 1 capsule by mouth daily at bedtime. 30 capsule 5 07/19/2014 01/05/2022 Discontinued (Course of therapy completed) Comment on above: Take 1 capsule by [facility] daily at bedtime. nystatin 509953 unt/ml oral suspension (1 source) Polyene Antifungal End: 09-11-2020 nystatin (MYCOSTATIN) 278881 UNIT/ML suspension nystatin 100,000 unit/mL oral suspension 0 09/11/2020 Discontinued (LIST CLEANUP) omeprazole 40 mg delayed release oral capsule (20 sources) Proton Pump Inhibitor Start: 06-17-2023 take 1 capsule by mouth twice daily Omeprazole 40 mg capsule,delayed release(DR/EC) Active 40 MG PO Twice daily January 05, 2024 11:21am Start: 06-17-2023 End: 01-05-2024 take 1 capsule by mouth once daily in the morning Omeprazole 40 mg capsule,delayed release(DR/EC) Discontinued 40 MG PO Every morning July 09, 2023 1:00am September 14, 2023 8:37am Start: 03-16-2022 take 1 capsule by [facility] once daily Omeprazole 40 MG 1 capsule 30 minutes before morning meal Orally Once a day for 90 day(s) Mar, Active Start: 07-02-2014 End: 01-05-2022 take 1 capsule by mouth once daily Omeprazole 40 mg capsule,delayed release(DR/EC) Discontinued 40 MG PO Daily August 05, 2020 1:00am August 18, 2021 11:40am take 2 capsules by [facility] at bedtime omeprazole (PriLOSEC) 20 mg capsule Take 2 capsules (40 mg total) by mouth in the morning and at bedtime. 0 Active take 1 capsule by [facility] twice daily Omeprazole 40 MG 1 capsule 30 minutes before morning meal Orally bid Active Comment on above: Take 40 mg by mouth once daily. 2 ml ondansetron 2 mg/ml injection (20 sources) Serotonin-3 Receptor Antagonist Start: 03-02-2024 End: 03-02-2024 4 mg, IntraVENous, ONCE, 1 dose, On Rani 03/02/24 at 1345 Start: 03-02-2024 End: 03-02-2024 4 mg, IntraVENous, ONCE, 1 d ose, On Rani 03/02/24 at 0900 Start: 01-05-2024 Ondansetron Hc l 2 mg/mL solution Active 4 MG IV .q 6-8 hours as needed for nausea and vomiting January 05, 2024 12:00am Start: 01-05-2024 Ondansetron Hc l Active 4 MG IV .q 6-8 hours January 04, 2024 11:00pm Start: 12-02-2023 End: 12-03-2023 ondansetron (ZOFRAN) injecti on 4 mg Start: 10-17-2023 End: 10-17-2023 ondansetron (ZOFRAN) injecti on 4 mg Start: 09-06-2023 End: 09-06-2023 ondansetron (ZOFRAN) injecti on 4 mg Start: 08-25-2023 take 2 tablets by mo [facility] three times daily as needed for nausea ondansetron (ZOFRAN-ODT) 4 MG disintegrating tablet Take 2 tablets by mouth 3 times daily as needed for Nausea or Vomiting 30 tablet 1 08/25/2023 Active Start: 05-13-2023 End: 01-07-2024 Ondansetron 4 mg tablet,disintegrating Discontinued 8 MG PO every 6 to 8 hours as needed for Nausea May 13, 2023 2:00pm January 07, 2024 10:10am Start: 05-13-2023 End: 01-07-2024 Ondansetron Discontinued 8 M G PO every 6 to 8 hours May 13, 2023 1:00pm January 07, 2024 9:10am Start: 01-09-2023 take 1 tablet by brittany every eight hours Ondansetron HCl 4 MG 1 tablet Orally TID [facility] Jan, Active Start: 11-19-2022 End: 11-19-2022 ondansetron (ZOFRAN) injecti on 4 mg Start: 08-27-2022 End: 08-27-2022 ondansetron (ZOFRAN) injecti on 4 mg Start: 08-27-2022 End: 08-27-2022 ondansetron (ZOFRAN) injecti on 4 mg Start: 05-31-2022 End: 05-31-2022 ondansetron (ZOFRAN) injecti on 4 mg Start: 05-28-2022 End: 05-28-2022 ondansetron (ZOFRAN) injecti on 4 mg Start: 04-13-2022 End: 04-13-2022 ondansetron (ZOFRAN) injecti on 4 mg Start: 02-27-2022 End: 05-13-2023 Ondansetron 4 mg tablet,disintegrating Discontinued 4 MG PO every 6 to 8 hours as needed for Nausea February 27, 2022 12:00am May 13, 2023 2:00pm Start: 09-23-2021 End: 02-27-2022 Ondansetron Hcl (Pf) (Zofran (Pf)) 4 mg/2 mL Solution Discontinued MG SOLUTION September 23, 2021 12:00am February 27, 2022 10:33am Start: 08-19-2021 take 1 tablet by brittany th every eight hours as needed Start: 07-03-2021 End: 07-11-2021 take 1 tablet by mouth every six hours as needed for nausea ondansetron (ZOFRAN) 4 MG tablet Take 1 tablet by mouth every 6 hours as needed for Nausea or Vomiting 32 tablet 0 07/03/2021 07/11/2021 Active Start: 07-01-2021 ondansetron (Z OFRAN) injection 4 mg Start: 01-27-2021 End: 01-27-2021 ondansetron (ZOFRAN) injecti on 4 mg Start: 01-25-2021 End: 01-25-2021 ondansetron (ZOFRAN) injecti on 4 mg Start: 12-07-2020 End: 12-07-2020 ondansetron (ZOFRAN) injecti on 4 mg Start: 10-20-2020 End: 10-20-2020 ondansetron (ZOFRAN) injecti on 4 mg Start: 10-16-2020 End: 10-16-2020 ondansetron (ZOFRAN) injecti on 4 mg Start: 09-15-2020 End: 09-15-2020 ondansetron (ZOFRAN) injecti on 4 mg Start: 09-12-2020 End: 09-12-2020 ondansetron (ZOFRAN) injecti on 4 mg Start: 09-11-2020 End: 09-11-2020 ondansetron (ZOFRAN) injecti on 8 mg Start: 09-10-2020 End: 09-12-2020 ondansetron (ZOFRAN) injecti on 4 mg Start: 09-07-2020 End: 09-07-2020 ondansetron (ZOFRAN) injecti on 4 mg Start: 07-22-2020 ondansetron (Z OFRAN) injection 4 mg Start: 07-20-2020 End: 07-20-2020 ondansetron (ZOFRAN) injecti on 8 mg Start: 08-10-2019 End: 08-10-2019 ondansetron (ZOFRAN) injecti on 4 mg Start: 02-02-2019 End: 02-02-2019 ondansetron (ZOFRAN) injecti on 4 mg Start: 01-13-2019 End: 01-13-2019 ondansetron (ZOFRAN) injecti on 4 mg Start: 01-20-2018 End: 05-13-2023 take 1 tablet by mouth every four hours as needed for nausea and vomiting Ondansetron Hcl (Zofran) 8 mg Tablet Discontinued 8 MG PO Q4H as needed for Nausea And Vomiting January 20, 2018 12:00am May 13, 2023 1:59pm take 8 mg intravenou sly every four hours as needed ondansetron HCl (ZOFRAN IV) Infuse 8 mg into a venous catheter every 4 (four) hours as needed. 2ML THROUGH PORT NEEDED 0 Active Zofran Active ondansetron HCl (ZOFRAN INTRAVENOUS) Inject 8 mg intravenously as needed. 0 Active End: 07-03-2021 take 4 mg intravenously every four to six hours Ondansetron HCl (ZOFRAN IV) Infuse 4 mg intravenously Every 4 to 6 hrs 0 07/03/2021 Discontinued (Stop Taking at Discharge) ondansetron (ZOF RAN-ODT) [address] 8 mg under the tongue 4 times daily as needed 0 Active End: 07-20-2020 ondansetron (ZOFRAN) [address] 8 mg under the tongue every 4 hours. 0 07/20/2020 Discontinued Comment on above: Inject 8 mg intraven ously as needed. 2 ml orphenadrine citrate 30 mg/ml injection (1 source) Muscle Relaxant Start: 12-04-2022 End: 12-04-2022 orphenadrine (NORFLEX) injection 60 mg pantoprazole (PROTONIX) 40 mg in sodium chloride 0.9 % 50 mL bolus (1 source) Start: 09-11-2020 End: 09-11-2020 pantoprazole (PROTONIX) 40 mg in sodium chloride 0.9 % 50 mL bolus pantoprazole (PROTONIX) 80 mg in sodium chloride 0.9 % 50 mL bolus (8 sources) Start: 12-02-2023 End: 12-03-2023 pantoprazole (PROTONIX) 80 mg in sodium chloride 0.9 % 50 mL bolus Start: 09-06-2023 End: 09-06-2023 pantoprazole (PROTONIX) 80 m g in sodium chloride 0.9 % 50 mL bolus Start: 01-29-2021 End: 01-29-2021 pantoprazole (PROTONIX) 80 m g in sodium chloride 0.9 % 50 mL bolus Start: 01-27-2021 End: 01-27-2021 pantoprazole (PROTONIX) 80 m g in sodium chloride 0.9 % 50 mL bolus Start: 12-07-2020 End: 12-07-2020 pantoprazole (PROTONIX) 80 m g in sodium chloride 0.9 % 50 mL bolus Start: 10-20-2020 End: 10-20-2020 pantoprazole (PROTONIX) 80 m g in sodium chloride 0.9 % 50 mL bolus Start: 09-15-2020 End: 09-15-2020 pantoprazole (PROTONIX) 80 m g in sodium chloride 0.9 % 50 mL bolus Start: 09-07-2020 End: 09-07-2020 pantoprazole (PROTONIX) 80 m g in sodium chloride 0.9 % 50 mL bolus polyethylene glycol 3350 369048 mg / potassium chloride 2970 mg / sodium bicarbonate 6740 mg / sodium chloride 5860 mg / sodium sulfate 55810 mg powder for oral solution (20 sources) Osmotic Laxative Start: 01-20-2022 peg 3350-Electrolytes (GOLYTELY) 236-22.74-6.74 -5.86 gram suspension Refer to printed patient instructions that will be mailed to you. 1 Each 0 01/20/2022 Active Comment on above: Refer to printed pat ient instructions that will be mailed to you. prazosin 2 mg oral capsule (20 sources) alpha-Adrenergic Willis Start: 07-25-2020 End: 08-20-2021 take 1 capsule by mouth once daily Prazosin (Minipress) 2 mg capsule Discontinued 2 MG PO Daily July 25, 2020 1:00am August 20, 2021 3:36pm predniSONE 20 mg oral tablet (20 sources) Start: 08-08-2023 End: 09-20-2023 take 1 tablet by mouth twice daily Prednisone 20 mg tablet Discontinued 20 MG PO Twice daily 10 August 08, 2023 1:00am September 20, 2023 11:48am Start: 07-31-2022 take 2 tablets by [facility] every twenty-four hours End: 09-11-2020 predniSONE (DELTASONE) 20 MG tablet prednisone 20 mg tablet 0 09/11/2020 Discontinued (Therapy completed) Pump Set (20 sources) Start: 07-11-2018 End: 07-11-2018 Pump Set Discontinued 2018 12:00am July 11, 2018 12:00pm Morphine 20mg/ml concentration max dose of 1.5mg daily Start: 07-11-2018 End: 07-11-2018 Pump Set Discontinued 2018 1:00am July 11, 2018 1:00pm Morphine 20mg/ml concentration max dose of 1.5mg daily Pump Set Misc (7 sources) Start: 07-11-2018 End: 07-11-2018 Pump Set Misc Discontinued [facility] 2018 1:00am July 11, 2018 1:00pm Morphine 20mg/ml concentration max dose of 1.5mg daily Start: 07-11-2018 End: 07-11-2018 Pump Set Misc Discontinued ary 2018 12:00am July 11, 2018 12:00pm Morphine 20mg/ml concentration max dose of 1.5mg daily raNITIdine 150 mg oral tablet (20 sources) Histamine-2 Receptor Antagonist Start: 07-11-2018 End: 09-11-2020 take 1 tablet by mouth once daily Ranitidine Hcl 150 mg Tablet Discontinued 150 MG PO Daily July 11, 2018 1:00am July 26, 2020 12:34am End: 01-28-2019 take 1 tablet by mouth twice daily ranitidine (ZANTAC) 150 MG tablet Take 150 mg by mouth 2 times daily 0 01/28/2019 Discontinued (LIST CLEANUP) rifAXIMin 550 mg oral tablet (20 sources) Rifamycin Antibacterial Start: 09-27-2022 take 1 tablet by mouth three times daily rifAXIMin 550 MG 1 tablet Orally Three times a day HOSP Sep, Not-Taking 10 ml sodium bicarbonate 84 mg/ml injection (1 source) Start: 12-07-2020 End: 12-07-2020 sodium bicarbonate 8.4 % injection 50 mEq Start: 12-07-2020 End: 12-07-2020 sodium bicarbonate 8.4 % inj ection 50 mEq 50 ml sodium chloride 9 mg/m l injection (20 sources) Start: 03-02-2024 End: 03-02-2024 1,000 mL (14.7 mL/kg), IntraVENous, at 2,000 mL/hr, Administer over 30 Minutes, ONCE, On [facility] 03/02/24 at 1115, For 1 dose Start: 02-27-2024 End: 02-27-2024 1,000 mL (14.7 mL/kg), IntraVENous, at 983.6 mL/hr, Administer over 61 Minutes, ONCE, On [facility] [place] 02/27/24 at 1200, For 1 dose Start: 12-02-2023 End: 12-03-2023 sodium chloride 0.9 % bolus 1,000 mL Start: 10-17-2023 End: 10-17-2023 sodium chloride 0.9 % bolus 1,000 mL Start: 09-06-2023 End: 09-06-2023 sodium chloride 0.9 % bolus 1,000 mL Start: 07-08-2023 sodium chlorid e 0.9 % flush 10 mL Start: 07-01-2023 sodium chlorid e 0.9 % flush 10 mL Start: 06-24-2023 sodium chlorid e 0.9 % flush 10 mL Start: 03-10-2023 sodium chlorid e 0.9 % injection Infuse 20 mL into a venous catheter every 12 (twelve) hours. 125 mL 2 03/10/2023 Active Start: 12-04-2022 End: 12-04-2022 0.9 % sodium chloride bolus Start: 11-19-2022 End: 11-19-2022 0.9 % sodium chloride bolus Start: 08-27-2022 End: 08-27-2022 0.9 % sodium chloride bolus Start: 05-28-2022 End: 05-28-2022 0.9 % sodium chloride bolus Start: 04-13-2022 End: 04-13-2022 0.9 % sodium chloride bolus Start: 07-03-2021 sodium chlorid e flush 0.9 % injection 5-40 mL Start: 07-01-2021 take 1 dose intraven ously twice daily 5-40 mL, IntraVENous, EVERY 12 HOURS SCHEDULED (2 times per day), First dose on Wed07/01/21 at 2100 For Line Patency: Peripheral IV = 5 mL; Midline or Central Line = 10 mL/lumen. If following IV push medication, administer flush at same rate as the IV push. Flush volume is determined by type of infusion therapy being given. For non-viscous solutions use: Peripheral IV = 5 mL Midline or Central Line = 10 mL/lumen For viscous solutions (i.e. blood components, parenteral nutrition, contrast media, or after obtaining blood sample) use: Peripheral IV = 10 mL Midline or Central Line = 20 mL/lumen Start: 07-01-2021 0.9 % sodium c hloride infusion Start: 07-01-2021 take 25 mL intraveno usly every hour as needed 25 mL, IntraVENous, at 100 mL/hr, PRN, If patient receiving piggyback infusions without ordered maintenance IV fluids or with frequent/long duration piggyback infusions, Starting on Wed07/01/21 at 1602 Administer at the same rate as the piggyback being infused. Start: 07-01-2021 take 5-40 mL intrave nously once as needed 5-40 mL, IntraVENous, PRN, Line Care, After every IV line use, Starting on Wed07/01/21 at 1602 For Line Patency: Peripheral IV = 5 mL; Midline or Central Line = 10 mL/lumen. If following IV push medication, administer flush at same rate as the IV push. Flush volume is determined by type of infusion therapy being given. For non-viscous solutions use: Peripheral IV = 5 mL Midline or Central Line = 10 mL/lumen For viscous solutions (i.e. blood components, parenteral nutrition, contrast media, or after obtaining blood sample) use: Peripheral IV = 10 mL Midline or Central Line = 20 mL/lumen Start: 01-29-2021 End: 01-29-2021 sodium chloride 0.9 % infusi on Start: 01-27-2021 0.9 % sodium c hloride infusion Start: 01-27-2021 End: 01-27-2021 0.9 % sodium chloride bolus Start: 01-25-2021 0.9 % sodium c hloride infusion Start: 01-25-2021 End: 01-25-2021 0.9 % sodium chloride bolus Start: 12-07-2020 0.9 % sodium c hloride infusion Start: 12-07-2020 End: 12-07-2020 0.9 % sodium chloride bolus Start: 10-21-2020 sodium chlorid e flush 0.9 % injection 5-40 mL Start: 10-20-2020 0.9 % sodium c hloride infusion Start: 10-20-2020 End: 10-20-2020 0.9 % sodium chloride bolus Start: 09-11-2020 End: 09-11-2020 0.9 % sodium chloride infusi on Start: 09-10-2020 End: 09-12-2020 0.9 % sodium chloride bolus Start: 09-07-2020 End: 09-07-2020 0.9 % sodium chloride bolus Start: 07-20-2020 10 mL, Intrave nous, EVERY 12 HOURS SCHEDULED (2 times per day), First dose on 07/20/20 at 2100 Start: 07-20-2020 take 10 mL intraveno us route once as needed 10 mL, Intravenous, PRN, Line Care, After every IV line use, Starting 07/20/20 at 1925 Start: 07-20-2020 End: 07-20-2020 0.9 % NaCl bolus Start: 08-10-2019 End: 08-10-2019 0.9 % sodium chloride bolus Start: 02-02-2019 End: 02-03-2019 0.9 % sodium chloride bolus Start: 01-13-2019 End: 01-13-2019 0.9 % sodium chloride bolus Sodium Chloride Flush (NORMAL SALINE FLUSH IV) Infuse 10 mLs intravenously as needed Active Sodium Chloride Flush (NORMAL SALINE FLUSH IV) Infuse 10 mLs intravenously as needed 0 Active sucralfate 1000 mg oral tablet (20 sources) Aluminum Complex Start: 10-02-2022 take 1 tablet by mouth every twelve hours Carafate 1 GM 1 tablet on an empty stomach Orally Twice a day for 30 days Sep, Not-Taking Start: 09-27-2022 take 1 tablet by brittany th every six hours Sucralfate 1 GM 1 tablet on an empty stomach Orally QID HOSP Sep, Active Start: 08-25-2021 take 1 tablet by brittany th every eight hours therapeutic multivitamin (THERA) tablet (8 sources) Start: 07-02-2014 End: 01-05-2022 take 1 tablet by mouth once daily therapeutic multivitamin (THERA) tablet Take 1 tablet by mouth once daily. 0 07/02/2014 01/05/2022 Discontinued (Course of therapy completed) Start: 07-02-2014 take 1 tablet by brittany th once daily therapeutic multivitamin (THERA) tablet Take 1 tablet by mouth once daily. 0 07/02/2014 Active Comment on above: Take 1 tablet by brittany th once daily. tobramycin 3 mg/ml ophthalmic solution (1 source) Aminoglycoside Antibacterial End: 09-11-2020 tobramycin (TOBREX) 0.3 % ophthalmic solution tobramycin 0.3 % eye drops 0 09/11/2020 Discontinued (LIST CLEANUP) topiramate 25 mg oral tablet (20 sources) Start: 11-06-2020 End: 11-06-2020 Topiramate 25 mg tablet Discontinued TABLET November 06, 2020 12:00am November 06, 2020 5:22am Start: 11-06-2020 End: 11-06-2020 Topiramate Discontinued TABL ET November 05, 2020 11:00pm November 06, 2020 4:22am Start: 10-21-2020 take 1 tablet by brittany th twice daily 50 mg, Oral, 2 TIMES DAILY, First dose on Wed10/21/20 at 0900 It is not recommended to crush, break, or chew immediate release tablets due to bitter taste. Start: 07-25-2020 End: 08-18-2021 take 2 tablets by mouth twice daily Topiramate (Topamax) 25 mg Tablet Discontinued 50 MG PO Twice daily July 25, 2020 1:00am August 18, 2021 11:40am take 1 tablet by brittany th twice daily topiramate (TOPAMAX) 50 MG tablet Take 50 mg by mouth 2 times daily 0 Active Trulance 3mg (5 sources) take 1 tablet by brittany th once daily Trulance 3mg 1 tablet po once a day Not-Taking take 1 tablet by mouth once tamiko y Trulance 3mg 1 tablet po once a day Active zaleplon 10 mg oral capsule (1 source) gamma-Aminobutyric Acid A Receptor Agonist End: 09-11-2020 zaleplon (SONATA) 10 MG capsule zaleplon 10 mg capsule 0 09/11/2020 Discontinued (LIST CLEANUP) Zofran ODT 4 mg Tab-Dis (2 sources) Start: 01-05-2013 End: 01-05-2013 take 1 tablet by mouth three times daily as needed for nausea Zofran ODT 4 mg Tab-Dis 4 mg = 1 tab(s), Oral, TID, PRN PRN as needed for nausea/vomiting, # 10 tab(s), Refills(s) 0, 0, Print Requisition Start Date: 01/05/13 Stop Date: 01/05/13 Status: Ordered Problems Active Problems Problem Classification Problem Date Documented Date Episodic/Chronic Abdominal pain (20 sources) Abdominal pain; Translations: [Epigastric pain] Onset: 2 Resolved: 4 07-22-2020 Episodic Acute and unspecified renal failure (20 sources) Acute injury of kidney; Translations: [Acute kidney failure, unspecified] Onset: 3 Resolved: 4 Episodic Acute posthemorrhagic anemia (20 sources) Anemia due to blood loss; Translations: [Acute posthemorrhagic anemia] Onset: 1 Resolved: 4 Episodic Administrative/social admission (20 sources) Dietary counseling and surveillance; Translations: [Advance directive discussed with patient] Onset: 2 Resolved: 4 Episodic Allergic reactions (20 sources) Allergy to drug; Translations: [Allergy status to other antibiotic agents status] Onset: 3 Episodic Anxiety disorders (20 sources) Anxiety; Translations: [Anxiety disorder, unspecified] Onset: 2 Resolved: 4 10-03-2020 Chronic Chronic kidney disease (20 sources) Chronic kidney disease stage 3A ; Translations: [Stage 3a chronic kidney disease] Onset: 1 Resolved: 4 Chronic Chronic kidney disease (9 sources) Chronic kidney disease; Translations: [Chronic kidney disease, stage III (moderate)] Onset: 2 Resolved: 2 Chronic obstructive pulmonary disease and bronchiectasis (3 sources) Bronchitis, not specified as acute or chronic; Translations: [Bronchitis, not specified as acute or chronic] Episodic Complications of surgical procedures or medical care (20 sources) Postpancreatectomy hyperglycemia; Translations: [Postprocedural hypoinsulinemia] Onset: 9 05-15-2022 Chronic Deficiency and other anemia (1 source) Anemia due to blood loss; Translations: [Iron deficiency anemia secondary to blood loss (chronic)] Chronic Deficiency and other anemia (20 sources) Anemia of renal disease; Translations: [Anemia in chronic kidney disease] Chronic Deficiency and other anemia (1 source) Anemia in chronic kidney disease Onset: 2 Resolved: 2 Chronic Deficiency and other anemia (2 sources) Iron deficiency anemia secondary to blood loss (chronic); Translations: [IRON DEFIC ANEMIA SEC BLD LOSS CHRN] Onset: 2 Chronic Deficiency and other anemia (16 sources) Iron deficiency anemia due to blood loss; Translations: [Iron deficiency anemia secondary to blood loss (chronic)] Onset: 1 Resolved: 4 04-22-2024 Chronic Deficiency and other anemia (20 sources) Anemia; Translations: [Anemia, unspecified] Onset: 2 Resolved: 4 09-11-2020 Episodic Diabetes mellitus with complications (20 sources) Diabetic ketoacidosis; Translations: [Type 2 diabetes mellitus with ketoacidosis without coma] Onset: 2 Resolved: 4 05-15-2014 Chronic Diabetes mellitus without complication (20 sources) Type 1 diabetes mellitus; Translations: [Maturity-onset diabetes of the young] Onset: 2 Resolved: 4 05-15-2014 Chronic Diabetes mellitus without complication (20 sources) Hyperglycemia; Translations: [Hyperglycemia, unspecified] Onset: 2 Resolved: 2 Episodic Digestive congenital anomalies (1 source) Congenital malformations of intestinal fixation; Translations: [CONGEN MALFORMATIONS INTESTINAL FIX] Onset: 2 Chronic Disorders of lipid metabolism (20 sources) Hypertriglyceridemia; Translations: [Familial hypertriglyceridemia] Onset: 2 Resolved: 4 05-15-2014 Chronic Esophageal disorders (20 sources) Adrianna-Draper tear; Translations: [Gastro-esophageal laceration-hemorrhage syndrome] Onset: 2 Resolved: 4 10-03-2020 Episodic Essential hypertension (20 sources) Essential hypertension; Translations: [Essential (primary) hypertension] Onset: 2 Resolved: 4 Chronic Fluid and electrolyte disorders (20 sources) Dehydration; Translations: [Dehydration] Onset: 3 Resolved: 4 04-04-2018 Episodic Gastritis and duodenitis (20 sources) Gastritis; Translations: [Gastritis, unspecified, without bleeding] Episodic Gastrointestinal hemorrhage (20 sources) Hematemesis; Translations: [Hematemesis] Onset: 5 Resolved: 4 09-11-2020 Episodic Genitourinary symptoms and ill-defined conditions (20 sources) Dysuria; Translations: [Dysuria] Onset: 2 Resolved: 4 Episodic Headache; including migraine (20 sources) Migraine; Translations: [Migraine with aura] Onset: 2 Resolved: 4 08-18-2013 Chronic Headache; including migraine (8 sources) Acute headache; Translations: [Headache; including migraine] Onset: 5 03-27-2015 Joint disorders and dislocations; trauma-related (20 sources) Derangement of left knee; Translations: [Unspecified internal derangement of left knee] Chronic Malaise and fatigue (20 sources) Left hemiparesis; Translations: [Weakness] Onset: 2 Resolved: 4 07-10-2022 Episodic Menopausal disorders (2 sources) Menopausal symptom; Translations: [Menopausal and female climacteric states] 09-25-2024 Chronic Menstrual disorders (5 sources) Menometrorrhagia; Translations: [Excessive and frequent menstruation with irregular cycle] Onset: 5 07-27-2024 Chronic Miscellaneous mental health disorders (1 source) Mental disorder, not otherwise specified; Translations: [MENTAL DISORDER NOS] Onset: 3 Chronic Mood disorders (20 sources) Depressive disorder; Translations: [Major depressive disorder, single episode, unspecified] Onset: 6 Resolved: 4 08-02-2015 Chronic Nausea and vomiting (20 sources) Nausea and vomiting; Translations: [Uncontrollable vomiting] Onset: 5 Resolved: 2 07-20-2020 Episodic Noninfectious gastroenteritis (20 sources) Colitis; Translations: [Noninfective gastroenteritis and colitis, unspecified] Onset: 2 Resolved: 4 08-18-2021 Episodic Nonspecific chest pain (20 sources) Atypical chest pain; Translations: [Other chest pain] Onset: 3 Resolved: 4 09-23-2021 Episodic Nutritional deficiencies (20 sources) Cobalamin deficiency; Translations: [Deficiency of other specified B group vitamins] Episodic Other aftercare (1 source) Patient care statuses; Translations: [Encounter for palliative care] Episodic Other aftercare (1 source) Administrative statuses; Translations: [Encounter for palliative care] Episodic Other aftercare (20 sources) Long-term current use of insulin; Translations: [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 control service representative (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 insulin] Onset: 4 Resolved: 4 09-16-2023 Episodic Other aftercare (20 sources) termite control service representative (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 insulin; Translations: [Long-term (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 insulin] Onset: 1 Resolved: 2 Episodic Other aftercare (3 sources) Surgical follow-up; Translations: [Encounter for follow-up examination after completed treatment for conditions other than malignant neoplasm] Episodic Other aftercare (2 sources) Other retirement (current) drug therapy; Translations: [Other terminologist (current) drug therapy] Onset: 3 Episodic Other aftercare (2 sources) Encounter for follow-up examination after completed treatment for conditions other than malignant neoplasm; Translations: [Encounter for follow-up examination after completed treatment for conditions other than malignant neoplasm] Onset: 4 Episodic Other circulatory disease (20 sources) Device in situ; Translations: [Presence of other vascular implants and grafts] 05-13-2023 Chronic Other circulatory disease (2 sources) Presence of other vascular implants and grafts Chronic Other connective tissue disease (20 sources) Rhabdomyolysis; Translations: [Rhabdomyolysis] Onset: 4 Resolved: 4 07-10-2022 Episodic Other connective tissue disease (2 sources) Rhabdomyolysis; Translations: [Rhabdomyolysis] 07-10-2022 Episodic Other connective tissue disease (3 sources) Other symptoms and signs involving the musculoskeletal system Episodic Other connective tissue disease (1 source) Pain in left upper arm Episodic Other connective tissue disease (1 source) Myalgia, other site Episodic Other diseases of kidney and ureters (20 sources) Acute renal insufficiency; Translations: [Disorder of kidney and ureter, unspecified] 10-03-2020 Episodic Other diseases of kidney and ureters (1 source) Abnormal renal function; Translations: [Disorder of kidney and ureter, unspecified] Episodic Other endocrine disorders (13 sources) Hypoglycemia; Translations: [Hypoglycemia, unspecified] 09-20-2023 Chronic Other endocrine disorders (13 sources) Hypoglycemia, unspecified; Translations: [Hypoglycemia, unspecified] 09-20-2023 Chronic Other female genital disorders (20 sources) Abnormal uterine bleeding; Translations: [Other specified abnormal uterine and vaginal bleeding] Onset: 4 Resolved: 4 04-22-2024 Chronic Other female genital disorders (1 source) Other specified abnormal uterine and vaginal bleeding; Translations: [Other specified abnormal uterine and vaginal bleeding] Onset: 5 Chronic Other gastrointestinal disorders (4 sources) Upper gastrointestinal bleeding; Translations: [Gastrointestinal hemorrhage, unspecified] Episodic Other gastrointestinal disorders (20 sources) Constipation; Translations: [Constipation, unspecified] Onset: 4 Resolved: 4 Episodic Other gastrointestinal disorders (2 sources) Personal history of other diseases of the digestive system Onset: 2 Resolved: 2 Episodic Other liver diseases (20 sources) Steatosis of liver; Translations: [Fatty (change of) liver, not elsewhere classified] Onset: 4 Resolved: 4 09-28-2020 Chronic Other liver diseases (1 source) Elevated liver enzymes level; Translations: [Abnormal levels of other serum enzymes] 03-02-2024 Episodic Other liver diseases (1 source) Abnormal levels of other serum enzymes; Translations: [Abnormal levels of other serum enzymes] Onset: 4 Episodic Other lower respiratory disease (1 source) Shortness of breath Onset: 4 Episodic Other nervous system disorders (6 sources) Chronic pain; Translations: [Other chronic pain] Onset: 2 Chronic Other nervous system disorders (1 source) Other chronic pain; Translations: [OTHER CHRONIC PAIN] Onset: 2 Chronic Other nervous system disorders (3 sources) Acute postoperative pain; Translations: [Other acute postprocedural pain] 09-11-2024 Episodic Other non-traumatic joint disorders (1 source) Effusion, left knee Episodic Other nutritional; endocrine; and metabolic disorders (1 source) Hypocalcemia; Translations: [HYPOCALCEMIA] Onset: 2 Chronic Other screening for suspected conditions (not mental disorders or infectious disease) (1 source) Other specified abnormal findings of blood chemistry Episodic Other upper respiratory disease (20 sources) Seasonal allergy; Translations: [Other seasonal allergic rhinitis] Onset: 4 Resolved: 4 10-08-2023 Chronic Other upper respiratory disease (1 source) Other seasonal allergic rhinitis; Translations: [Allergic rhinitis, cause unspecified] 10-08-2023 Chronic Otitis media and related conditions (2 sources) Otitis media, unspecified, right ear; Translations: [Unspecified nonsuppurative otitis media, right ear] Episodic Ovarian cyst (1 source) Unspecified ovarian cyst, unspecified side Episodic Pancreatic disorders (not diabetes) (20 sources) Chronic pancreatitis; Translations: [Other chronic pancreatitis] Onset: 3 Resolved: 4 05-05-2017 Chronic Pancreatic disorders (not diabetes) (20 sources) Pancreatitis; Translations: [Exocrine pancreatic insufficiency] Onset: 0 Resolved: 4 01-02-2013 Episodic Regional enteritis and ulcerative colitis (1 source) 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; Translations: [ULCERATIVE RECTOSIGMOIDITIS NO COMP] Onset: 3 Chronic Residual codes; unclassified (20 sources) History of pancreatectomy; Translations: [Acquired total absence of pancreas] Onset: 1 Resolved: 4 Chronic Comment on above: whipple procedure Residual codes; unclassified (20 sources) Acquired total absence of pancreas; Translations: [Acquired total absence of pancreas] Onset: 2 Resolved: 2 Chronic Residual codes; unclassified (3 sources) Body mass index (BMI) 22.0-22.9, adult; Translations: [Body Mass Index between 19-24, adult] Onset: 2 Resolved: 2 Episodic Residual codes; unclassified (2 sources) Body mass index (BMI) 24.0-24.9, adult Episodic Residual codes; unclassified (20 sources) Left against medical advice; Translations: [Procedure and treatment not carried out because of patient's decision for other reasons] 07-10-2022 Episodic Residual codes; unclassified (2 sources) Procedure and treatment not carried out because of patient's decision for other reasons; Translations: [Surgical or other procedure not carried out because of patient's decision] 07-10-2022 Episodic Residual codes; unclassified (14 sources) Body mass index (BMI) 23.0-23.9, adult; Translations: [Body Mass Index between 19-24, adult] Onset: 2 Episodic Residual codes; unclassified (3 sources) Acquired absence of other specified parts of digestive tract; Translations: [Acquired absence of other specified parts of digestive tract] Onset: 2 Episodic Residual codes; unclassified (1 source) Do not resuscitate; Translations: [DO NOT RESUSCITATE] Onset: 3 Episodic Residual codes; unclassified (20 sources) Body mass index 20-24 - normal; Translations: [Body mass index (BMI) 23.0-23.9, adult] Onset: 4 Resolved: 4 09-20-2023 Episodic Residual codes; unclassified (9 sources) Device in situ; Translations: [Presence of intrathecal pump] Onset: 8 04-21-2018 Spondylosis; intervertebral disc disorders; other back problems (1 source) Dorsalgia, unspecified; Translations: [Dorsalgia, unspecified] Onset: 3 Episodic Thyroid disorders (20 sources) Thyroid nodule; Translations: [Nontoxic single thyroid nodule] Onset: 4 Resolved: 4 02-25-2024 Chronic Unclassified (20 sources) SUMMARY Onset: 5 Unclassified (2 sources) VOMITTING, PAIN ON RIGHT SIDE 08-29-2022 Comment on above: VOMITTING, PAIN ON R IGHT SIDE Unclassified (1 source) CHRN KIDNEY DISEASE STG 3 UNSP; Translations: [CHRN KIDNEY DISEASE STG 3 UNSP] Onset: 3 Unclassified (1 source) CONTACT W/AND (SUSP) EXPOS COVID-19; Translations: [CONTACT W/AND (SUSP) EXPOS COVID-19] Onset: 3 Unclassified (1 source) ACIDOSIS UNSPECIFIED; Translations: [ACIDOSIS UNSPECIFIED] Onset: 2 Unclassified (1 source) Port/VAD Care Onset: 4 Unclassified (1 source) Vascular Access Problem Onset: 3 Unclassified (1 source) sent over, post op issue, vomiting Onset: 3 Viral infection (1 source) COVID-19; Translations: [COVID-19] Onset: 3 Past or Other Problems Problem Classification Problem Date Documented Da te Episodic/Chronic Anal and rectal conditions (20 sources) Rectal prolapse; Translations: [Rectal prolapse] Onset: 2 Resolved: 4 Episodic Asthma (20 sources) Asthma; Translations: [Unspecified asthma, uncomplicated] Onset: 2 Resolved: 4 04-22-2024 Chronic Bacterial infection; unspecified site (5 sources) Bacteremia caused by Gram-positive bacteria; Translations: [Bacteremia] Onset: 3 Resolved: 3 04-06-2023 Episodic Calculus of urinary tract (20 sources) History of calculus of kidney; Translations: [Personal history of urinary calculi] Onset: 2 Resolved: 4 Episodic Complications of surgical procedures or medical care (20 sources) Infection associated with device; Translations: [Local infection due to central venous catheter, initial encounter] Onset: 3 Resolved: 4 04-22-2024 Episodic Contraceptive and procreative management (1 source) Presence of (intrauterine) contraceptive device; Translations: [PRESENCE IU CONTRACEPT DEVICE] Onset: 2 Episodic Deficiency and other anemia (5 sources) Anemia, unspecified; Translations: [Anemia, unspecified type] Onset: 2 Episodic Deficiency and other anemia (10 sources) Iron deficiency anemia; Translations: [Iron deficiency anemia, unspecified] Onset: 1 03-08-2023 Episodic Diseases of white blood cells (20 sources) Leukocytosis; Translations: [Elevated white blood cell count, unspecified] Onset: 3 Resolved: 4 04-22-2024 Chronic Fever of unknown origin (1 source) Fever, unspecified; Translations: [FEVER UNSPECIFIED] Onset: 3 Episodic Genitourinary symptoms and ill-defined conditions (20 sources) Urinary incontinence; Translations: [Unspecified urinary incontinence] Onset: 2 Resolved: 4 04-22-2024 Chronic Headache; including migraine (20 sources) Headache; Translations: [Acute headache] Onset: 5 Resolved: 4 03-27-2015 Episodic Hypertension with complications and secondary hypertension (20 sources) Hypertension secondary to endocrine disorder; Translations: [Hypertensive urgency ] Onset: 1 Resolved: 4 07-22-2020 Chronic Intestinal obstruction without hernia (4 sources) Volvulus; Translations: [VOLVULUS] Onset: 2 Episodic Mood disorders (5 sources) Mood disorders Onset: 3 02-09-2023 Mycoses (1 source) Candidiasis of vagina; Translations: [Yeast vaginitis] Episodic Nutritional deficiencies (20 sources) Undernutrition; Translations: [Mild protein-calorie malnutrition] Onset: 5 Resolved: 4 Chronic Other aftercare (8 sources) Prescribed medication regimen behavior finding; Translations: [Other retirement (current) drug therapy] Onset: 1 Episodic Other aftercare (20 sources) Long-term current use of benzodiazepine; Translations: [Other terminologist (current) drug therapy] Onset: 1 Resolved: 4 10-21-2020 Episodic Other connective tissue disease (4 sources) Pain in right lower leg; Translations: [PAIN IN RIGHT LOWER LEG] Onset: 2 Episodic Other connective tissue disease (20 sources) Fibromyositis; Translations: [Fibromyalgia] Onset: 4 Resolved: 4 04-22-2024 Episodic Other connective tissue disease (20 sources) H/O: osteoarthritis; Translations: [Personal history of other diseases of the musculoskeletal system and connective tissue] Onset: 2 Resolved: 4 04-22-2024 Episodic Other diseases of kidney and ureters (19 sources) Hydronephrosis; Translations: [Unspecified hydronephrosis] Onset: 2 Resolved: 4 Episodic Other endocrine disorders (20 sources) Polycystic ovary syndrome; Translations: [Polycystic ovarian syndrome] Onset: 2 Resolved: 4 04-22-2024 Chronic Other female genital disorders (16 sources) History of gynecological disorder; Translations: [Personal history of other diseases of the female genital tract] Onset: 2 Resolved: 4 04-22-2024 Episodic Other gastrointestinal disorders (20 sources) Slow transit constipation; Translations: [Slow transit constipation] Onset: 1 07-20-2020 Episodic Other gastrointestinal disorders (6 sources) Drug-induced constipation; Translations: [Drug induced constipation] Onset: 9 Episodic Other gastrointestinal disorders (4 sources) Constipation, unspecified; Translations: [Constipation, unspecified] Onset: 2 Episodic Other gastrointestinal disorders (3 sources) Enteroptosis; Translations: [ENTEROPTOSIS] Onset: 2 Episodic Other gastrointestinal disorders (1 source) Other fecal abnormalities; Translations: [Other fecal abnormalities] Onset: 4 Episodic Other gastrointestinal disorders (16 sources) History of pancreatitis; Translations: [Personal history of other diseases of the digestive system] Onset: 4 Resolved: 4 04-22-2024 Episodic Other nervous system disorders (16 sources) Neuroma of foot; Translations: [Other specified mononeuropathies of right lower limb] Onset: 4 Resolved: 4 04-22-2024 Chronic Other nervous system disorders (20 sources) Postoperative pain ; Translations: [Other acute postprocedural pain] Onset: 2 Resolved: 4 05-15-2022 Episodic Other nervous system disorders (1 source) Other acute postprocedural pain; Translations: [Postoperative pain] Onset: 2 Episodic Other nervous system disorders (20 sources) Tremor; Translations: [Tremor, unspecified] Onset: 3 Resolved: 4 04-22-2024 Episodic Other non-traumatic joint disorders (17 sources) Pain in left knee; Translations: [Pain in joint, lower leg] Onset: 4 Resolved: 4 Episodic Other non-traumatic joint disorders (20 sources) Shoulder joint pain; Translations: [Pain in unspecified shoulder] Onset: 3 Resolved: 4 04-22-2024 Episodic Other nutritional; endocrine; and metabolic disorders (1 source) Body mass index (BMI) 25.0-25.9, adult Onset: 2 Resolved: 2 Episodic Other nutritional; endocrine; and metabolic disorders (8 sources) H/O: diabetes mellitus; Translations: [Personal history of other endocrine, nutritional and metabolic disease] Onset: 2 05-15-2022 Episodic Other upper respiratory disease (20 sources) Feeling of lump in throat; Translations: [Globus sensation] Onset: 3 Resolved: 4 04-22-2024 Episodic Residual codes; unclassified (20 sources) Device in situ; Translations: [Presence of other specified devices] Onset: 8 04-21-2018 Episodic Residual codes; unclassified (1 source) Body mass index (BMI) 21.0-21.9, adult Onset: 2 Resolved: 2 Episodic Residual codes; unclassified (20 sources) History of anesthesia problem; Translations: [Personal history of other specified conditions] Onset: 2 Resolved: 4 Episodic Residual codes; unclassified (20 sources) Central venous catheter in situ; Translations: [Presence of other specified devices] Onset: 2 Resolved: 4 05-15-2022 Episodic Residual codes; unclassified (2 sources) Personal history of other specified conditions; Translations: [History of anesthesia complications] Onset: 2 Episodic Residual codes; unclassified (1 source) Other specified postprocedural states; Translations: [OTH SPECIFIED POSTPROCEDURAL STATES] Onset: 3 Episodic Residual codes; unclassified (1 source) Acquired absence of spleen; Translations: [ACQUIRED ABSENCE OF SPLEEN] Onset: 2 Episodic Residual codes; unclassified (1 source) Other specified health status; Translations: [Other specified health status] Onset: 9 Episodic Residual codes; unclassified (20 sources) Difficult venous access; Translations: [Other specified health status] Onset: 8 Resolved: 4 04-22-2024 Episodic Residual codes; unclassified (20 sources) Edema of lower extremity; Translations: [Localized edema] Onset: 2 Resolved: 4 04-22-2024 Episodic Residual codes; unclassified (20 sources) Insomnia; Translations: [Insomnia, unspecified] Onset: 2 Resolved: 4 04-22-2024 Episodic Residual codes; unclassified (5 sources) H/O: blood transfusion; Translations: [Personal history of other medical treatment] Resolved: 9 06-10-2018 Episodic Rheumatoid arthritis and related disease (20 sources) Rheumatoid arthritis; Translations: [Rheumatoid arthritis, unspecified] Onset: 2 Resolved: 4 04-22-2024 Chronic Skin and subcutaneous tissue infections (20 sources) Cellulitis of chest wall ; Translations: [Cellulitis of chest wall] Onset: 3 Resolved: 4 04-22-2024 Episodic Spondylosis; intervertebral disc disorders; other back problems (20 sources) Inflammation of sacroiliac joint; Translations: [Sacroiliitis, not elsewhere classified] Onset: 4 Resolved: 4 04-22-2024 Chronic Substance-related disorders (20 sources) Continuous opioid dependence; Translations: [Opioid use, unspecified, uncomplicated] Onset: 3 Resolved: 4 04-22-2024 Episodic Thyroid disorders (3 sources) Mass of thyroid gland; Translations: [Other specified disorders of thyroid] Onset: 4 04-25-2024 Episodic Unclassified (5 sources) Transition of care; Translations: [Transition of care performed with sharing of clinical summary] Onset: 5 Resolved: 9 06-10-2018 Unclassified (5 sources) Onset: 3 12-13-2022 Results Test Name Value Interpretation Reference Range Facility GLUCOSE POCT GLUCOMETERSon 0 09-11-2024 COMMEMT1 Glu2: Cleaned Meter [facility] Glucose [Mass/Vol] 238 mg/dL [facility] Comment on above: Random Glucose Refer ence Range is dependent on time and content of last meal. Glucose of more than 200 mg/dL in a nonstressed, ambulatory subject supports the diagnosis of Diabetes Mellitus. [facility] [place] Glucose [Mass/Vol] 118 mg/dL [facility] Comment on above: Random Glucose Refer ence Range is dependent on time and content of last meal. Glucose of more than 200 mg/dL in a nonstressed, ambulatory subject supports the diagnosis of Diabetes Mellitus. [facility] [place] Glucose Glucometer (BldC) [M ass/Vol]Ordered By: ANTONINO DELGADO on 09-11-2024 Glucose [Mass/Vol] Capillary blood gluc ose measurement by glucometer (mass/volume) [facility] Comment on above: Random Glucose Refer ence Range is dependent on time and content of last meal. Glucose of more than 200 mg/dL in a nonstressed, ambulatory subject supports the diagnosis of Diabetes Mellitus. Glucose Poct Glucometerson 0 09-11-2024 Commemt1 Glu2: Cleaned Meter Normal [facility] Comment on above: Result Comment: PERF ORMED BY: [place] [address] PATHOLOGIST BRAZING MACHINE OPERATOR MARICHUY JUÁREZ M.D. Performed By: #### U HCG #### [address] Glucose [Mass/Vol] 238 mg/dL Normal [facility] Comment on above: Result Comment: [place] Glucose Reference Range is dependent on time and content of last meal. Glucose of more than 200 mg/dL in a nonstressed, ambulatory subject supports the diagnosis of Diabetes Mellitus. Performed By: #### U HCG #### [address] Glucose [Mass/Vol] 118 mg/dL Normal [facility] Comment on above: Result Comment: [place] [facility] Glucose Reference Range is dependent on time and content of last meal. Glucose of more than 200 mg/dL in a nonstressed, ambulatory subject supports the diagnosis of Diabetes Mellitus. PERFORMED BY: [place] [address] PATHOLOGIST BRAZING MACHINE OPERATOR MARICHUY JUÁREZ M.D. Performed By: #### U HCG #### [place] [id number] [facility] HCG ( test) Fausto iniguez Ql (U)Ordered By: Ihsan Ramirez on 09-11-2024 HCG ( test) Ql (U) Urine human chorionic gonadotropin (hCG) detection by immunoassay [facility] HCG,Urineon 09-11-2024 Beta HCG ( test) Ql (U) Negative Normal [facility] Comment on above: Result Comment: PERF ORMED BY: [address] [place] [id number] PATHOLOGIST BRAZING MACHINE OPERATOR MARICHUY JUÁREZ M.D. Performed By: #### U HCG #### [place] [id number] [facility] Wilver 09-11-2024 L ----- Specimen: [id number] Received: 09/11/24 Status: LISBETH Robyn Num: [id number] Spec Type: Surgical Subm Dr: ANTONINO DELGADO MD Tissues: A Uterus w/ or w/o tubes ovaries except neoplastic or prolap (UTERUS, BILATE Procedures: , Gross/Micro L5 Age/ Patient Sex Location Account Attending Physician Pritesh Raza 39/F [place] [id number] ANTONINO DELGADO MD SPEC NUM: [id number] RECD: 09/11/24 STATUS: LISBETH CARLSON NUM: [id number] BERNIE: 09/11/[address] [facility] [address]: ANTONINO DELGADO MD ENTERED: 09/11/[address] [facility] [address]: FAY TYPE: Surgical DEPT: S ENTERED BY: [id number] RECV BY: [id number] ORDERED: HE/, Gross/Micro L5 ORDERED: HE, Gross/Micro L5 Pathological Diagnosis Uterus, Cervix, Bilateral Ovaries and Tubes, Hysterectomy: Uterus: Unremarkable. Cervix: Endocervical polyp. Ovaries: Benign ovarian cysts. Hemorrhagic corpus luteum. Fallopian Tubes: Paratubal cysts. Clinical Information Menometrorrhagia, polycystic ovarian syndrome Gross Description Part A is received in formalin labeled with the patients name, date of , and uterus, cervix, bilateral tubes, bilateral ovaries Is a hysterectomy specimen identified by the surgeon as weighing 130 g, which consists of a uterine corpus with attached cervix, resected with attached bilateral adnexa. The uterine corpus is symmetrical, 4 cm cornu to cornu, 4 cm anterior to posterior and 9 cm fundus to ectocervical face. The serosa is henry-pink, smooth and glistening. The ectocervical face is 1.5 cm in length by up to 3 cm in diameter, and exhibits henry-pink, smooth, glistening mucosa. The cervical os is slitlike, up to 1.5 cm in diameter. The specimen is opened to reveal a henry-pink, wrinkled and glistening endocervical canal with a 0.9 cm in greatest dimension polypoid structure noted 3 cm from the anterior ectocervical face. Upon further sectioning cavitated areas, 1.2 cm in greatest dimension that are filled with a pale swanson mucoid material are noted within the cervical stroma. Specimen: Received: 09/11/24 Status: LISBETH Carlson Num: [id number] Spec Type: Surgical Subm Dr: ANTONINO DELGADO MD Tissues: A Uterus w/ or w/o tubes ovaries except neoplastic or prolap (UTERUS, BILATE Procedures: , Gross/Micro L5 Patient: Pritesh Raza [id number] (Continued) Specimen: Received: 09/11/24 (Continued) Gross Description (Continued) Signed (signature on file) Hoang_ Marichuy Juárez MD 09/12/24 1602 Specimen: Received: 09/11/24 Status: LISBETH Carlson Num: [id number] Spec Type: Surgical Subm Dr: ANTONINO DELGADO MD Tissues: A Uterus w/ or w/o tubes ovaries except neoplastic or prolap (UTERUS, BILATE Procedures: , Gross/Micro L5 Patient: Pritesh Raza [id number] (Continued) Specimen: [id number] Received: 09/11/24 (Continued) Gross Description (Continued) The endometrial cavity is henry-pink, focally erythematous, glistening and triangular, 3.4 x 2.5 cm with endometrium, up to 0.2 cm in thickness. Within the endometrial cavity is a white, T-shaped portion of plastic like material, 3.3 x 0.3 x 0.2 cm along the arms of the T, and 3 x 0.3 cm along the base of the T. Extending from the base of the T is a swanson suture, 3.2 cm in length. The myometrium is henry-pink and trabecular, up to 2.5 cm in thickness. The left fallopian tube with fimbriated distal end is 7 cm in length by up to 0.7 cm in diameter, and the right fallopian tube with fimbriated distal end is 7.2 cm in length by 0.7 cm in diameter. The serosa is swanson purple, smooth and glistening with paratubal cysts, 0.6 cm in greatest dimension. Right. Serial sections reveal pinpoint lumen within each segment. The left ovary is 3 x 2.5 x 1.5 cm, and the right ovary is 4 x 2.5 x 2 cm. The capsular surfaces are henry-pink to yellow, and bosselated with a linear incision, 2.5 cm in length noted on the right ovary. Serial sections reveal peripheral, smooth lined simple cys (more content not included)... Normal [facility] No Panel InformationOrdered By: ANTONINO DELGADO on 09-11-2024 Bedside Glucose Comment Glu2: cleaned meter [facility] Acanthocytes [Presence] in B lood by Light microscopyOrdered By: ANTONINO DELGADO on 08-28-2024 Acanthocytes LM Ql (Bld) Acanthocytes [Presence] in Blood by Light microscopy [facility] Anisocytosis LM Ql (Bld)Orde red By: ANTONINO DELGADO on 08-28-2024 Anisocytosis Ql (Bld) Anisocytosis [Pres ence] in Blood by Light microscopy [facility] Basic Metabolic Panelon 08-06 Anion gap [Moles/Vol] 10.4 mmol/L Normal 6.0-15.0 [facility] Comment on above: Performed By: #### D IFF CBC, BMP #### [facility] [address] [place] [address] [place] Calcium [Mass/Vol] 7.9 mg/dL Low 8.6-10.3 [facility] Comment on above: Result Comment: PERF ORMED BY: [address] [place] [address] PATHOLOGIST BRAZING MACHINE OPERATOR MARICHUY JUÁREZ M.D. Performed By: #### D IFF CBC, BMP #### [facility] [address] [place] [id number] [place] Chloride [Moles/Vol] 109 mmol/L High 98-107 [facility] Comment on above: Performed By: #### D IFF CBC, BMP #### [facility] [address] [place] [id number] [place] CO2 [Moles/Vol] 24.4 mmol/L Normal 21.0-31.0 [facility] Comment on above: Performed By: #### D IFF CBC, BMP #### [address] Creatinine [Mass/Vol] 1.97 mg/dL High 0.60-1.20 [facility] Comment on above: Performed By: #### D IFF CBC, BMP #### [address] Estimated GFR 32.779 mL/Min Normal [facility] Comment on above: Performed By: #### D IFF CBC, BMP #### [address] Glucose [Mass/Vol] 153 mg/dL High 70-100 [facility] Comment on above: Result Comment: [facility] Glucose Reference Range is dependent on time and content of last meal. Glucose of more than 200 mg/dL in a nonstressed, ambulatory subject supports the diagnosis of Diabetes Mellitus. ADA recommended reference range Performed By: #### D IFF CBC, BMP #### [address] Potassium [Moles/Vol] 4.8 mmol/L Normal 3.5-5.1 [facility] Comment on above: Performed By: #### D IFF CBC, BMP #### [address] Sodium [Moles/Vol] 139 mmol/L Normal 136-145 [facility] Comment on above: Performed By: #### D IFF CBC, BMP #### [address] Urea nitrogen [Mass/Vol] 23 mg/dL Normal 7-25 [facility] Comment on above: Performed By: #### D IFF CBC, BMP #### [facility] [address] [place] [address] [place] Basophils Auto (Bld) [#/Vol] Ordered By: ANTONINO DELGADO on 08-28-2024 Basophils (Bld) [#/Vol] Automated basophil count [facility] Basophils/100 WBC Auto (Bld) Ordered By: ANTONINO DELGADO on 03-24-2025 Basophils/100 WBC (Bld) Automated basophil % [facility] Basophils/100 WBC Manual cnt (Bld)Ordered By: ANTONINO DELGADO on 08-28-2024 Basophils/100 WBC (Bld) Basophils/100 leukocytes in Blood by Manual count 0-2 [facility] Calcium [Mass/volume] in Ser um or PlasmaOrdered By: ANTONINO DELGADO on 08-28-2024 Calcium [Mass/Vol] Calcium [Mass/volume ] in Serum or Plasma Low 8.6-10.3 [facility] Carbon dioxide, total [Moles /volume] in Serum or PlasmaOrdered By: ANTONINO DELGADO on 08-28-2024 CO2 [Moles/Vol] Carbon dioxide, tota l [Moles/volume] in Serum or Plasma 21.0-31.0 [facility] Chloride [Moles/volume] in S michael or PlasmaOrdered By: ANTONINO DELGADO on 08-28-2024 Chloride [Moles/Vol] Chloride [Moles/vol ume] in Serum or Plasma High 98-107 [facility] Creatinine [Mass/volume] in Serum or PlasmaOrdered By: ANTONINO DELGADO on 08-28-2024 Creatinine [Mass/Vol] Creatinine [Mass/v olume] in Serum or Plasma High 0.60-1.20 [facility] Diff and CBCon 08-28-2024 Acanthocytes Moderate Normal [facility] Comment on above: Performed By: #### D IFF CBC, BMP #### [facility] [address] [place] [address] [place] Anisocytosis Ql (Bld) Slight Normal [facility] Comment on above: Performed By: #### D IFF CBC, BMP #### [facility] [address] [place] [address] [place] Basophils/100 WBC (Bld) 1 % Normal 0-2 [facility] Comment on above: Performed By: #### D IFF CBC, BMP #### [facility] [address] [place] [address] [place] Eosinophils/100 WBC (Bld) 1 % Normal 1-3 [facility] Comment on above: Performed By: #### D IFF CBC, BMP #### [facility] [address] Erythrocyte distribution width (RBC) [Ratio] 14.4 % Normal 11.9-15.3 [facility] Comment on above: Performed By: #### D IFF CBC, BMP #### [address] Giant Platelet Tally 1 /100{WBC} Normal [facility] Comment on above: Performed By: #### D IFF CBC, BMP #### [address] Hematocrit (Bld) [Volume fraction] 31.5 % Low 34.0-46.4 [facility] Comment on above: Performed By: #### D IFF CBC, BMP #### [address] Hemoglobin (Bld) [Mass/Vol] 10.3 g/dL Low 11.8-15.4 [facility] Comment on above: Performed By: #### D IFF CBC, BMP #### [address] Lymphocytes/100 WBC (Bld) 29 % Normal 18-42 [facility] Comment on above: Performed By: #### D IFF CBC, BMP #### [address] MCH (RBC) [Entitic mass] 30.8 pg Normal 24.7-34.3 [facility] Comment on above: Performed By: #### D IFF CBC, BMP #### [place] [address] [place] MCV (RBC) [Entitic vol] 94.5 fL Normal 80-100 [facility] Comment on above: Performed By: #### D IFF CBC, BMP #### [address] Mean Corpuscular HGB Conc 32.6 g/dL Normal 32.0-35.0 [facility] Comment on above: Performed By: #### D IFF CBC, BMP #### [address] Microcytosis Slight Normal [facility] Comment on above: Performed By: #### D IFF CBC, BMP #### [address] Monocytes/100 WBC (Bld) 7 % Normal 2-11 [facility] Comment on above: Performed By: #### D IFF CBC, BMP #### [address] Ovalocytes Slight Normal [facility] Comment on above: Performed By: #### D IFF CBC, BMP #### [address] Platelet Estimate Normal Normal Normal [facility] Comment on above: Performed By: #### D IFF CBC, BMP #### [address] Platelet mean volume (Bld) [Entitic vol] 10.0 fL Normal 6.3-10.7 [facility] Comment on above: Performed By: #### D IFF CBC, BMP #### [address] Platelet Morphology Normal Normal Normal [facility] Comment on above: Result Comment: PERF ORMED BY: [place] [address] PATHOLOGIST BRAZING MACHINE OPERATOR MARICHUY JUÁREZ M.D. Performed By: #### D IFF CBC, BMP #### [address] Platelets (Bld) [#/Vol] 247 10*3/uL Normal 150-450 [facility] Comment on above: Performed By: #### D IFF CBC, BMP #### [address] Poikilocytosis Slight Normal [facility] Comment on above: Performed By: #### D IFF CBC, BMP #### [place] [address] [place] RBC (Bld) [#/Vol] 3.33 10*6/uL Low 3.60-5.00 [facility] Comment on above: Performed By: #### D IFF CBC, BMP #### [facility] [address] Schistocytes Slight Normal [facility] Comment on above: Performed By: #### D IFF CBC, BMP #### [facility] [address] [place] [address] [place] Segmented neutrophils/100 WBC (Bld) 62 % Normal 50-70 [facility] Comment on above: Performed By: #### D IFF CBC, BMP #### [facility] [address] [place] [address] [place] WBC (Bld) [#/Vol] 7.9 10*3/uL Normal 3.8-11.6 [facility] Comment on above: Performed By: #### D IFF CBC, BMP #### [facility] [address] [place] [address] [place] Eosinophils Auto (Bld) [#/Vo l]Ordered By: ANTONINO DELGADO on 08-28-2024 Eosinophils (Bld) [#/Vol] Automated eosinophil count [facility] Eosinophils/100 WBC Auto (Bl d)Ordered By: ANTONINO DELGADO on 08-28-2024 Eosinophils/100 WBC (Bld) Automated eosinophil % [facility] Eosinophils/100 WBC Manual c nt (Bld)Ordered By: ANTONINO DELGADO on 08-28-2024 Eosinophils/100 WBC (Bld) Eosinophils/100 leukocytes in Blood by Manual count 1-3 [facility] Erythrocyte distribution wid th Auto (RBC) [Ratio]Ordered By: ANTONINO DELGADO on 08-28-2024 Erythrocyte distribution width (RBC) [Ratio] Erythrocyte distribution width [Ratio] by Automated count 11.9-15.3 [facility] Erythrocyte morphology findi ng [Identifier] in BloodOrdered By: ANTONINO DELGADO on 08-28-2024 RBC morphology finding Nom (Bld) RBC morphology [facility] Giant platelets/100 leukocyt es [Ratio] in Blood by Manual countOrdered By: ANTONINO DELGADO on 08-28-2024 Giant platelets/100 WBC Manual cnt (Bld) [Ratio] Giant platelets/100 leukocytes [Ratio] in Blood by Manual count [facility] Glucose [Mass/volume] in Ser um or PlasmaOrdered By: ANTONINO DELGADO on 08-28-2024 Glucose [Mass/Vol] Glucose [Mass/volume ] in Serum or Plasma High 70-100 [facility] Comment on above: ADA recommended refe rence rangeRandom Glucose Reference Range is dependent on time and content of last meal. Glucose of more than 200 mg/dL in a nonstressed, ambulatory subject supports the diagnosis of Diabetes Mellitus. Hematocrit Auto (Bld) [Volum e fraction]Ordered By: ANTONINO DELGADO on 08-28-2024 Hematocrit (Bld) [Volume fraction] Hematocrit [Volume Fraction] of Blood by Automated count Low 34.0-46.4 [facility] Hemoglobin [Mass/volume] in BloodOrdered By: ANTONINO DELGADO on 08-28-2024 Hemoglobin (Bld) [Mass/Vol] Hemoglobin [Mass/volume] in Blood Low 11.8-15.4 [facility] Leukocytes [#/volume] correc aarti for nucleated erythrocytes in Blood by Automated counOrdered By: ANTONINO DELGADO on 08-28-2024 WBC corrected for nucl RBC Auto (Bld) [#/Vol] Leukocytes [#/volume] corrected for nucleated erythrocytes in Blood by Automated coun 3.8-11.6 [facility] Lymphocytes Auto (Bld) [#/Vo l]Ordered By: ANTONINO DELGADO on 08-28-2024 Lymphocytes (Bld) [#/Vol] Lymphocytes [#/volume] in Blood by Automated count [facility] Lymphocytes/100 WBC Auto (Bl d)Ordered By: ANTONINO DELGADO on 08-28-2024 Lymphocytes/100 WBC (Bld) Lymphocytes/100 leukocytes in Blood by Automated count [facility] Lymphocytes/100 WBC Manual c nt (Bld)Ordered By: ANTONINO DELGADO on 08-28-2024 Lymphocytes/100 WBC (Bld) Lymphocytes/100 leukocytes in Blood by Manual count 18-42 [facility] MCH Auto (RBC) [Entitic mass ]Ordered By: ANTONINO DELGADO on 08-28-2024 MCH (RBC) [Entitic mass] MCH [Entitic mass] by Automated count 24.7-34.3 [facility] MCHC Auto (RBC) [Mass/Vol]Or dered By: ANTONINO DELGADO on 08-28-2024 MCHC (RBC) [Mass/Vol] MCHC [Mass/volume] by Automated count 32.0-35.0 [facility] MCV Auto (RBC) [Entitic vol] Ordered By: ANTONINO DELGADO on 08-28-2024 MCV (RBC) [Entitic vol] MCV [Entitic volume] by Automated count 80-100 [facility] Microcytes LM Ql (Bld)Ordere d By: ANTONINO DELGADO on 08-28-2024 Microcytes Ql (Bld) Microcytes [Presence ] in Blood by Light microscopy [facility] Monocytes Auto (Bld) [#/Vol] Ordered By: ANTONINO DELGADO on 08-28-2024 Monocytes (Bld) [#/Vol] Automated blood monocyte count [facility] Monocytes/100 WBC Auto (Bld) Ordered By: ANTONINO DELGADO on 08-28-2024 Monocytes/100 WBC (Bld) Automated monocyte % [facility] Monocytes/100 WBC Manual cnt (Bld)Ordered By: ANTONINO DELGADO on 08-28-2024 Monocytes/100 WBC (Bld) Monocytes/100 leukocytes in Blood by Manual count 2-11 [facility] Neutrophils Auto (Bld) [#/Vo l]Ordered By: ANTONINO DELGADO on 08-28-2024 Neutrophils (Bld) [#/Vol] Neutrophils [#/volume] in Blood by Automated count [facility] Neutrophils/100 WBC Auto (Bl d)Ordered By: ANTONINO DELGADO on 08-28-2024 Neutrophils/100 WBC (Bld) Automated neutrophil % [facility] No Panel InformationOrdered By: ANTONINO DELGADO on 08-28-2024 Estimated GFR (CKD-EPI) 32.779 mL/Min [facility] Creatinine Clearance (Chem N/A [facility] Nucleated erythrocytes [Pres ence] in Blood by Automated countOrdered By: ANTONINO DELGADO on 08-28-2024 Nucleated RBC Auto Ql (Bld) Nucleated erythrocytes [Presence] in Blood by Automated count [facility] Ovalocytes [Presence] in Blo od by Light microscopyOrdered By: ANTONINO DELGADO on 08-28-2024 Ovalocytes LM Ql (Bld) Ovalocyte detection [facility] PST Type and Screenon 2024 ABO and Rh group Nom (Bld) Blood group A Rh(D) positive Normal [facility] Comment on above: Order Comment: Date of Surgery: [id number] Platelet adequacy [Presence] in Blood by Light microscopyOrdered By: ANTONINO DELGADO on 08-28-2024 Platelets LM Ql (Bld) Platelet adequacy [Presence] in Blood by Light microscopy Normal [facility] Platelet mean volume Auto (B ld) [Entitic vol]Ordered By: ANTONINO DELGADO on 08-28-2024 Platelet mean volume (Bld) [Entitic vol] Platelet mean volume [Entitic volume] in Blood by Automated count 6.3-10.7 [facility] Platelet morphology finding [Identifier] in BloodOrdered By: ANTONINO DELGADO on 08-28-2024 Platelet morphology finding Nom (Bld) Platelet morphology finding [Identifier] in Blood Normal [facility] Platelets Auto (Bld) [#/Vol] Ordered By: ANTONINO DELGADO on 08-28-2024 Platelets (Bld) [#/Vol] Platelets [#/volume] in Blood by Automated count 150-450 [facility] Poikilocytosis [Presence] in Blood by Light microscopyOrdered By: ANTONINO DELGADO on 08-28-2024 Poikilocytosis LM Ql (Bld) Poikilocytosis [Presence] in Blood by Light microscopy [facility] Potassium [Moles/volume] in Serum or PlasmaOrdered By: ANTONINO DELGADO on 08-28-2024 Potassium [Moles/Vol] Potassium [Moles/v olume] in Serum or Plasma 3.5-5.1 [facility] RBC Auto (Bld) [#/Vol]Ordere d By: ANTONINO DELGADO on 08-28-2024 RBC (Bld) [#/Vol] Erythrocytes [#/volu me] in Blood by Automated count Low 3.60-5.00 [facility] Schistocytes [Presence] in B lood by Light microscopyOrdered By: ANTONINO DELGADO on 08-28-2024 Schistocytes LM Ql (Bld) Schistocytes [Presence] in Blood by Light microscopy [facility] Segmented neutrophils/100 WB C Manual cnt (Bld)Ordered By: ANTONINO DELGADO on 08-28-2024 Segmented neutrophils/100 WBC (Bld) Manual blood segmented neutrophils/100 leukocytes 50-70 [facility] Serum or plasma anion gap de terminationOrdered By: ANTONINO DELGADO on 08-28-2024 Anion gap [Moles/Vol] Serum or plasma an ion gap determination 6.0-15.0 [facility] Sodium [Moles/volume] in Ser um or PlasmaOrdered By: ANTONINO DELGADO on 08-28-2024 Sodium [Moles/Vol] Sodium [Moles/volume ] in Serum or Plasma 136-145 [facility] Urea nitrogen [Mass/volume] in Serum or PlasmaOrdered By: ANTONINO DELGADO on 08-28-2024 Urea nitrogen [Mass/Vol] Urea nitrogen [Mass/volume] in Serum or Plasma 7- [facility] WBC Auto (Bld) [#/Vol]Ordere d By: ANTONINO DELGADO on 08-28-2024 WBC (Bld) [#/Vol] Leukocytes [#/volume ] in Blood by Automated count 3.8-11.6 [facility] Acanthocytes [Presence] in B lood by Light microscopyOrdered By: Jovanny Biggs on 08-04-2024 Acanthocytes LM Ql (Bld) Acanthocytes [Presence] in Blood by Light microscopy [facility] Alanine aminotransferase [En zymatic activity/volume] in Serum or PlasmaOrdered By: Jovanny Biggs on 08-04-2024 ALT [Catalytic activity/Vol] Alanine aminotransferase [Enzymatic activity/volume] in Serum or Plasma [facility] Albumin [Mass/volume] in Ser um or Plasma by Bromocresol green (BCG) dye binding methoOrdered By: Jovanny Biggs on 08-04-2024 Albumin BCG dye [Mass/Vol] Albumin [Mass/volume] in Serum or Plasma by Bromocresol green (BCG) dye binding metho 3.5-5.7 [facility] Alkaline phosphatase [Enzyma tic activity/volume] in Serum or PlasmaOrdered By: Jovanny Biggs on 08-04-2024 ALP [Catalytic activity/Vol] Alkaline phosphatase [Enzymatic activity/volume] in Serum or Plasma High 34-104 [facility] Appearance of UrineOrdered B y: Jovanny Biggs on 08-04-2024 Appearance (U) Urine appearance Clear [facility] Aspartate aminotransferase [ Enzymatic activity/volume] in Serum or PlasmaOrdered By: Jovanny Biggs on 08-04-2024 AST [Catalytic activity/Vol] Aspartate aminotransferase [Enzymatic activity/volume] in Serum or Plasma 13-39 [facility] Bacteria [Presence] in Urine by AutomatedOrdered By: Jovanny Biggs on 08-04-2024 Bacteria Auto Ql (U) Bacteria [Presence] in Urine by Automated High None Seen [facility] Basophils Auto (Bld) [#/Vol] Ordered By: Jovanny Biggs on 08-04-2024 Basophils (Bld) [#/Vol] Automated basophil count 0.0-0.2 [facility] Basophils/100 WBC Auto (Bld) Ordered By: Jovanny Biggs on 08-04-2024 Basophils/100 WBC (Bld) Automated basophil % . [facility] Bilirubin Test strip Ql (U)O rdered By: Jovanny Biggs on 08-04-2024 Bilirubin Ql (U) Bilirubin.total [Presence] in Urine by Test strip Negative [facility] Bilirubin.total [Mass/volume ] in Serum or PlasmaOrdered By: Jovanny Biggs on 08-04-2024 Bilirubin [Mass/Vol] Bilirubin.total [Mass/volume] in Serum or Plasma Low 0.3-1.0 [facility] [place] cells [Presence] in Blo od by Light microscopyOrdered By: Jovanny Biggs on 08-04-2024 [place] cells LM Ql (Bld) [place]anny cells [Prese nce] in Blood by Light microscopy [facility] Calcium [Mass/volume] in Ser um or PlasmaOrdered By: Jovanny Biggs on 08-04-2024 Calcium [Mass/Vol] Calcium [Mass/volume ] in Serum or Plasma Low 8.6-10.3 [facility] Carbon dioxide, total [Moles /volume] in Serum or PlasmaOrdered By: Jovanny Biggs on 08-04-2024 CO2 [Moles/Vol] Carbon dioxide, tota l [Moles/volume] in Serum or Plasma Low 21.0-31.0 [facility] Chloride [Moles/volume] in S michael or PlasmaOrdered By: Jovanny Biggs on 08-04-2024 Chloride [Moles/Vol] Chloride [Moles/vol ume] in Serum or Plasma 98-107 [facility] Color Auto (U)Ordered By: Rema kenny Kalyan on 08-04-2024 Color (U) Color of Urine by Auto Abnormal Yellow [facility] Comprehensive Metabolic Pane wilver 08-04-2024 Albumin [Mass/Vol] 4.3 g/dL Normal 3.5-5.7 [facility] Comment on above: Performed By: #### C MP, SCAN CBC #### [facility] [address] Albumin/Globulin [Mass ratio] 1.5 {ratio} Normal [facility] Comment on above: Performed By: #### C MP, SCAN CBC #### [facility] [address] ALP [Catalytic activity/Vol] 106 U/L High 34-104 [facility] Comment on above: Performed By: #### C MP, SCAN CBC #### [facility] [address] [place] [address] [place] ALT [Catalytic activity/Vol] 28 U/L Normal 7-52 [facility] Comment on above: Performed By: #### C MP, SCAN CBC #### [facility] [address] [place] [address] [place] Anion gap [Moles/Vol] 12.1 mmol/L Normal 6.0-15.0 [facility] Comment on above: Performed By: #### C MP, SCAN CBC #### [facility] [address] [place] [id number] [place] AST [Catalytic activity/Vol] 35 U/L Normal 13-39 [facility] Comment on above: Performed By: #### C MP, SCAN CBC #### [facility] [address] [place] [address] [place] Bilirubin [Mass/Vol] 0.2 mg/dL Low 0.3-1.0 [facility] Comment on above: Performed By: #### C MP, SCAN CBC #### [facility] [address] [place] [address] Calcium [Mass/Vol] 8.3 mg/dL Low 8.6-10.3 [facility] Comment on above: Performed By: #### C MP, SCAN CBC #### [facility] [address] Chloride [Moles/Vol] 107 mmol/L Normal 98-107 [facility] Comment on above: Performed By: #### C MP, SCAN CBC #### [facility] [address] [place] [address] CO2 [Moles/Vol] 20.2 mmol/L Low 21.0-31.0 [facility] Comment on above: Performed By: #### C MP, SCAN CBC #### [facility] [address] [place] [address] Creatinine [Mass/Vol] 2.20 mg/dL High 0.60-1.20 [facility] Comment on above: Performed By: #### C MP, SCAN CBC #### [address] Creatinine Clr Calc Pharmacy 34.98 Normal [facility] Comment on above: Result Comment: PERF ORMED BY: [place] [address] PATHOLOGIST BRAZING MACHINE OPERATOR MARICHUY JUÁREZ M.D. Performed By: #### C MP, SCAN CBC #### [address] Estimated GFR 28.710 mL/Min Normal [facility] Comment on above: Performed By: #### C MP, SCAN CBC #### [facility] [address] [place] [address] Globulin (S) [Mass/Vol] 2.9 g/dL Normal [facility] Comment on above: Performed By: #### C MP, SCAN CBC #### [place] [address] [place] Glucose [Mass/Vol] 228 mg/dL High 70-100 [facility] Comment on above: Result Comment: [facility] Glucose Reference Range is dependent on time and content of last meal. Glucose of more than 200 mg/dL in a nonstressed, ambulatory subject supports the diagnosis of Diabetes Mellitus. ADA recommended reference range Performed By: #### C MP, SCAN CBC #### [facility] [address] Potassium [Moles/Vol] 4.3 mmol/L Normal 3.5-5.1 [facility] Comment on above: Result Comment: Hemo lysis is present at a level that could interfere with the result. Contact lab if redraw is required Performed By: #### C MP, SCAN CBC #### [facility] [address] [place] [address] [place] Protein [Mass/Vol] 7.2 g/dL Normal 6.4-8.9 [facility] Comment on above: Performed By: #### C MP, SCAN CBC #### [facility] [address] [place] [address] [place] Sodium [Moles/Vol] 135 mmol/L Low 136-145 [facility] Comment on above: Performed By: #### C MP, SCAN CBC #### [facility] [address] [place] [address] [place] Urea nitrogen [Mass/Vol] 22 mg/dL Normal 7-25 [facility] Comment on above: Performed By: #### C MP, SCAN CBC #### [facility] [address] [place] [address] [place] Creatinine [Mass/volume] in Serum or PlasmaOrdered By: Jovanny Biggs on 08-04-2024 Creatinine [Mass/Vol] Creatinine [Mass/v olume] in Serum or Plasma High 0.60-1.20 [facility] Dipstick and Microscopicon 0 08-04-2024 Appearance (U) Clear Normal Clear [facility] Comment on above: Order Comment: Name Collection Type:: Clean-Voided Midstream Performed By: #### U HCG #### [place] [address] [place] Bacteria,Urine 1+ High None Seen [facility] Comment on above: Order Comment: Name Collection Type:: Clean-Voided Midstream Performed By: #### U HCG #### [place] [address] [place] Bilirubin,Urine Negative Normal Negative [facility] Comment on above: Order Comment: Name Collection Type:: Clean-Voided Midstream Performed By: #### U HCG #### [address] Color (U) Light-Brown Critically abnormal Yellow [facility] Comment on above: Order Comment: Name Collection Type:: Clean-Voided Midstream Performed By: #### U HCG #### [place] [address] [place] Glucose Ql (U) 150 mg/dL High Normal [facility] Comment on above: Order Comment: Name Collection Type:: Clean-Voided Midstream Performed By: #### U HCG #### [place] [address] [place] Hyaline Casts,Urine None Normal 0-8 [facility] Comment on above: Order Comment: Name Collection Type:: Clean-Voided Midstream Result Comment: PERF ORMED BY: [place] [address] PATHOLOGIST BRAZING MACHINE OPERATOR MARICHUY JUÁREZ M.D. Performed By: #### U HCG #### [address] Ketones Ql (U) Negative Normal Negative [facility] Comment on above: Order Comment: Name Collection Type:: Clean-Voided Midstream Performed By: #### U HCG #### [place] [address] [place] Leukocyte esterase Test strip Ql (U) Negative Normal Negative [facility] Comment on above: Order Comment: Name Collection Type:: Clean-Voided Midstream Performed By: #### U HCG #### [place] [address] [place] Nitrite,Urine Negative Normal Negative [facility] Comment on above: Order Comment: Name Collection Type:: Clean-Voided Midstream Performed By: #### U HCG #### [place] [address] [place] Occult Blood,Urine 3+ High Negative [facility] Comment on above: Order Comment: Name Collection Type:: Clean-Voided Midstream Result Comment: PERF ORMED BY: [place] [address] PATHOLOGIST BRAZING MACHINE OPERATOR MARICHUY JUÁREZ M.D. Performed By: #### U HCG #### [place] [address] [place] pH (U) 6.0 [pH] Normal 5.0-9.0 [facility] Comment on above: Order Comment: Name Collection Type:: Clean-Voided Midstream Performed By: #### U HCG #### [place] [address] [place] Protein,Urine Trace High Negative [facility] Comment on above: Order Comment: Name Collection Type:: Clean-Voided Midstream Performed By: #### U HCG #### [place] [address] [place] RBC,Urine Innumerable High 0-4 [facility] Comment on above: Order Comment: Name Collection Type:: Clean-Voided Midstream Performed By: #### U HCG #### [place] [address] [place] Specificy [place],Urine 1.008 Normal 1.001-1.03 0 [facility] Comment on above: Order Comment: Name Collection Type:: Clean-Voided Midstream Performed By: #### U HCG #### [place] [address] [place] Urobilinogen,Urine Normal Normal Normal [facility] Comment on above: Order Comment: Name Collection Type:: Clean-Voided Midstream Performed By: #### U HCG #### [place] [address] [place] WBC,Urine Innumerable High 0-4 [facility] Comment on above: Order Comment: Name Collection Type:: Clean-Voided Midstream Performed By: #### U HCG #### [facility] [address] Eosinophils Auto (Bld) [#/Vo l]Ordered By: Jovanny Biggs on 08-04-2024 Eosinophils (Bld) [#/Vol] Automated eosinophil count 0.0-0.45 [facility] Eosinophils/100 WBC Auto (Bl d)Ordered By: Jovanny Biggs on 08-04-2024 Eosinophils/100 WBC (Bld) Automated eosinophil % . [facility] Epithelial cells.squamous [# /area] in Urine sediment by Automated countOrdered By: Jovanny Biggs on 08-04-2024 Epithelial cells.squamous Auto (Urine sed) [#/Area] Epithelial cells.squamous [#/area] in Urine sediment by Automated count [facility] Erythrocyte distribution wid th Auto (RBC) [Ratio]Ordered By: Jovanny Biggs on 08-04-2024 Erythrocyte distribution width (RBC) [Ratio] Erythrocyte distribution width [Ratio] by Automated count 11.9-15.3 [facility] Erythrocyte morphology findi ng [Identifier] in BloodOrdered By: Jovanny Biggs on 08-04-2024 RBC morphology finding Nom (Bld) RBC morphology [facility] Erythrocytes [#/area] in Uri ne sediment by Automated countOrdered By: Jovanny Biggs on 08-04-2024 RBC Auto (Urine sed) [#/Area] Erythrocytes [#/area] in Urine sediment by Automated count High 0-4 [facility] Globulin Calc (S) [Mass/Vol] Ordered By: Jovanny Biggs on 08-04-2024 Globulin (S) [Mass/Vol] Serum globulin measurement by calculation (mass/volume) [facility] Glucose [Mass/volume] in Ser um or PlasmaOrdered By: Jovanny Biggs on 08-04-2024 Glucose [Mass/Vol] Glucose [Mass/volume ] in Serum or Plasma High 70-100 [facility] Comment on above: ADA recommended refe rence rangeRandom Glucose Reference Range is dependent on time and content of last meal. Glucose of more than 200 mg/dL in a nonstressed, ambulatory subject supports the diagnosis of Diabetes Mellitus. Glucose [Mass/volume] in Uri ne by Test stripOrdered By: Jovanny Biggs on 08-04-2024 Glucose Test strip (U) [Mass/Vol] Glucose [Mass/volume] in Urine by Test strip High Normal [facility] Hematocrit Auto (Bld) [Volum e fraction]Ordered By: Jovanny Biggs on 08-04-2024 Hematocrit (Bld) [Volume fraction] Hematocrit [Volume Fraction] of Blood by Automated count 34.0-46.4 [facility] Hemoglobin Test strip Ql (U) Ordered By: Jovanny Biggs on 08-04-2024 Hemoglobin Ql (U) Hemoglobin [Presence ] in Urine by Test strip High Negative [facility] Hemoglobin [Mass/volume] in BloodOrdered By: Jovanny Biggs on 08-04-2024 Hemoglobin (Bld) [Mass/Vol] Hemoglobin [Mass/volume] in Blood Low 11.8-15.4 [facility] Hyaline casts [#/area] in Ur ine sediment by Automated countOrdered By: Jovanny Biggs on 08-04-2024 Hyaline casts Auto (Urine sed) [#/Area] Hyaline casts [#/area] in Urine sediment by Automated count 0-8 [facility] Ketones Test strip Ql (U)Ord ered By: Jovanny Biggs on 08-04-2024 Ketones Ql (U) Ketones [Presence] i n Urine by Test strip Negative [facility] Leukocyte esterase [Presence ] in Urine by Test stripOrdered By: Jovanny Biggs on 08-04-2024 Leukocyte esterase Test strip Ql (U) Leukocyte esterase [Presence] in Urine by Test strip Negative [facility] Leukocytes [#/area] in Urine sediment by Automated countOrdered By: Jovanny Biggs on 08-04-2024 WBC Auto (Urine sed) [#/Area] Leukocytes [#/area] in Urine sediment by Automated count High 0-4 [facility] Leukocytes [#/volume] correc aarti for nucleated erythrocytes in Blood by Automated counOrdered By: Jovanny Biggs on 08-04-2024 WBC corrected for nucl RBC Auto (Bld) [#/Vol] Leukocytes [#/volume] corrected for nucleated erythrocytes in Blood by Automated coun 3.8-11.6 [facility] Lymphocytes Auto (Bld) [#/Vo l]Ordered By: Jovanny Biggs on 08-04-2024 Lymphocytes (Bld) [#/Vol] Lymphocytes [#/volume] in Blood by Automated count 1.00-4.8 [facility] Lymphocytes/100 WBC Auto (Bl d)Ordered By: Jovanny Biggs on 08-04-2024 Lymphocytes/100 WBC (Bld) Lymphocytes/100 leukocytes in Blood by Automated count . [facility] MCH Auto (RBC) [Entitic mass ]Ordered By: Jovanny Biggs on 08-04-2024 MCH (RBC) [Entitic mass] MCH [Entitic mass] by Automated count 24.7-34.3 [facility] MCHC Auto (RBC) [Mass/Vol]Or dered By: Jovanny Biggs on 08-04-2024 MCHC (RBC) [Mass/Vol] MCHC [Mass/volume] by Automated count 32.0-35.0 [facility] MCV Auto (RBC) [Entitic vol] Ordered By: Jovanny Biggs on 08-04-2024 MCV (RBC) [Entitic vol] MCV [Entitic volume] by Automated count 80-100 [facility] Monocyte distribution width [Entitic volume] in Blood by AutomatedOrdered By: Jovanny Biggs on 08-04-2024 Monocyte distribution width Auto (Bld) [Entitic vol] Monocyte distribution width [Entitic volume] in Blood by Automated 0.00-20.00 [facility] Comment on above: Unable to calculate MDW because the Absolute Monocyte Count is <0.8. Monocytes Auto (Bld) [#/Vol] Ordered By: Jovanny Biggs on 08-04-2024 Monocytes (Bld) [#/Vol] Automated blood monocyte count 0.0-0.8 [facility] Monocytes/100 WBC Auto (Bld) Ordered By: Jovanny Biggs on 08-04-2024 Monocytes/100 WBC (Bld) Automated monocyte % . [facility] Neutrophils Auto (Bld) [#/Vo l]Ordered By: Jovanny Biggs on 08-04-2024 Neutrophils (Bld) [#/Vol] Neutrophils [#/volume] in Blood by Automated count 1.8-7.7 [facility] Neutrophils/100 WBC Auto (Bl d)Ordered By: Jovanny Biggs on 08-04-2024 Neutrophils/100 WBC (Bld) Automated neutrophil % . [facility] Nitrite Test strip Ql (U)Ord ered By: Jovanny Biggs on 08-04-2024 Nitrite Ql (U) Nitrite [Presence] i n Urine by Test strip Negative [facility] No Panel InformationOrdered By: Jovanny Biggs on 08-04-2024 Estimated GFR (CKD-EPI) 28.710 mL/Min [facility] Creatinine Clearance (Chem 34.98 [facility] Nucleated erythrocytes [Pres ence] in Blood by Automated countOrdered By: Jovanny Biggs on 08-04-2024 Nucleated RBC Auto Ql (Bld) Nucleated erythrocytes [Presence] in Blood by Automated count 0-0.5 [facility] Platelet adequacy [Presence] in Blood by Light microscopyOrdered By: Jovanny Biggs on 08-04-2024 Platelets LM Ql (Bld) Platelet adequacy [Presence] in Blood by Light microscopy Normal [facility] Platelet mean volume Auto (B ld) [Entitic vol]Ordered By: Jovanny Biggs on 08-04-2024 Platelet mean volume (Bld) [Entitic vol] Platelet mean volume [Entitic volume] in Blood by Automated count 6.3-10.7 [facility] Platelet morphology finding [Identifier] in BloodOrdered By: Jovanny Biggs on 08-04-2024 Platelet morphology finding Nom (Bld) Platelet morphology finding [Identifier] in Blood Normal [facility] Platelets Auto (Bld) [#/Vol] Ordered By: Jovanny Biggs on 08-04-2024 Platelets (Bld) [#/Vol] Platelets [#/volume] in Blood by Automated count 150-450 [facility] Poikilocytosis [Presence] in Blood by Light microscopyOrdered By: Jovanny Biggs on 08-04-2024 Poikilocytosis LM Ql (Bld) Poikilocytosis [Presence] in Blood by Light microscopy [facility] Potassium [Moles/volume] in Serum or PlasmaOrdered By: Jovanny Biggs on 08-04-2024 Potassium [Moles/Vol] Potassium [Moles/v olume] in Serum or Plasma 3.5-5.1 [facility] Comment on above: Hemolysis is present at a level that could interfere with the result.Contact lab if redraw is required Protein Test strip (U) [Mass /Vol]Ordered By: Jovanny Biggs on 08-04-2024 Protein (U) [Mass/Vol] Protein [Mass/vol ume] in Urine by Test strip High Negative [facility] Protein [Mass/volume] in Ser um or PlasmaOrdered By: Jovanny Biggs on 08-04-2024 Protein [Mass/Vol] Protein [Mass/volume ] in Serum or Plasma 6.4-8.9 [facility] RBC Auto (Bld) [#/Vol]Ordere d By: Jovanny Biggs on 08-04-2024 RBC (Bld) [#/Vol] Erythrocytes [#/volu me] in Blood by Automated count 3.60-5.00 [facility] Scan and CBCon 08-04-2024 Acanthocytes Slight Normal [facility] Comment on above: Performed By: #### C MP, SCAN CBC #### [address] Basophils (Bld) [#/Vol] 0.2 10*3/uL Normal 0.0-0.2 [facility] Comment on above: Performed By: #### C MP, SCAN CBC #### [address] Basophils/100 WBC (Bld) 1.8 % Normal . [facility] Comment on above: Performed By: #### C MP, SCAN CBC #### [address] Crenated RBC Slight Normal [facility] Comment on above: Performed By: #### C MP, SCAN CBC #### [address] Eosinophils (Bld) [#/Vol] 0.2 10*3/uL Normal 0.0-0.45 [facility] Comment on above: Performed By: #### C MP, SCAN CBC #### [place] [address] [place] Eosinophils/100 WBC (Bld) 1.6 % Normal . [facility] Comment on above: Performed By: #### C MP, SCAN CBC #### [address] Erythrocyte distribution width (RBC) [Ratio] 14.7 % Normal 11.9-15.3 [facility] Comment on above: Performed By: #### C MP, SCAN CBC #### [address] Hematocrit (Bld) [Volume fraction] 34.5 % Normal 34.0-46.4 [facility] Comment on above: Performed By: #### C MP, SCAN CBC #### [address] Hemoglobin (Bld) [Mass/Vol] 11.2 g/dL Low 11.8-15.4 [facility] Comment on above: Performed By: #### C MP, SCAN CBC #### [address] Lymphocytes (Bld) [#/Vol] 3.4 10*3/uL Normal 1.00-4.8 [facility] Comment on above: Performed By: #### C MP, SCAN CBC #### [address] Lymphocytes/100 WBC (Bld) 30.9 % Normal . [facility] Comment on above: Performed By: #### C MP, SCAN CBC #### [address] MCH (RBC) [Entitic mass] 30.7 pg Normal 24.7-34.3 [facility] Comment on above: Performed By: #### C MP, SCAN CBC #### [address] MCV (RBC) [Entitic vol] 94.7 fL Normal 80-100 [facility] Comment on above: Performed By: #### C MP, SCAN CBC #### [address] Mean Corpuscular HGB Conc 32.4 g/dL Normal 32.0-35.0 [facility] Comment on above: Performed By: #### C MP, SCAN CBC #### [address] Monocyte Distribution Width Not performed Normal 0.00-20.00 [facility] Comment on above: Result Comment: Unab le to calculate MDW because the Absolute Monocyte Count is <0.8. Performed By: #### C MP, SCAN CBC #### [facility] [address] [place] [address] [place] Monocytes (Bld) [#/Vol] 0.7 10*3/uL Normal 0.0-0.8 [facility] Comment on above: Performed By: #### C MP, SCAN CBC #### [facility] [address] [place] [address] [place] Monocytes/100 WBC (Bld) 6.5 % Normal . [facility] Comment on above: Performed By: #### C MP, SCAN CBC #### [facility] [address] [place] [address] [place] Neutrophils (Bld) [#/Vol] 6.5 10*3/uL Normal 1.8-7.7 [facility] Comment on above: Performed By: #### C MP, SCAN CBC #### [facility] [address] [place] [address] [place] Neutrophils/100 WBC (Bld) 59.2 % Normal . [facility] Comment on above: Performed By: #### C MP, SCAN CBC #### [facility] [address] [place] [address] [place] NRBC% 0.1 /100{WBC} Normal 0-0.5 [facility] Comment on above: Performed By: #### C MP, SCAN CBC #### [facility] [address] [place] [address] [place] Platelet Estimate Normal Normal Normal [facility] Comment on above: Performed By: #### C MP, SCAN CBC #### [facility] [address] [place] [address] [place] Platelet mean volume (Bld) [Entitic vol] 10.2 fL Normal 6.3-10.7 [facility] Comment on above: Performed By: #### C MP, SCAN CBC #### [facility] [address] [place] [address] [place] Platelet Morphology Normal Normal Normal [facility] Comment on above: Result Comment: PERF ORMED BY: [place] [address] PATHOLOGIST BRAZING MACHINE OPERATOR MARICHUY JUÁREZ M.D. Performed By: #### C MP, SCAN CBC #### [facility] [address] Platelets (Bld) [#/Vol] 258 10*3/uL Normal 150-450 [facility] Comment on above: Performed By: #### C MP, SCAN CBC #### [facility] [address] Poikilocytosis Moderate Normal [facility] Comment on above: Performed By: #### C MP, SCAN CBC #### [facility] [address] RBC (Bld) [#/Vol] 3.64 10*6/uL Normal 3.60-5.00 [facility] Comment on above: Performed By: #### C MP, SCAN CBC #### [address] Schistocytes Slight Normal [facility] Comment on above: Performed By: #### C MP, SCAN CBC #### [facility] [address] WBC (Bld) [#/Vol] 11.0 10*3/uL Normal 3.8-11.6 [facility] Comment on above: Performed By: #### C MP, SCAN CBC #### [facility] [address] Schistocytes [Presence] in B lood by Light microscopyOrdered By: Jovanny Biggs on 08-04-2024 Schistocytes LM Ql (Bld) Schistocytes [Presence] in Blood by Light microscopy [facility] Serum or plasma albumin/glob ulin mass ratioOrdered By: Jovanny Biggs on 08-04-2024 Albumin/Globulin [Mass ratio] Serum or plasma albumin/globulin mass ratio [facility] Serum or plasma anion gap de terminationOrdered By: Jovanny Biggs on 08-04-2024 Anion gap [Moles/Vol] Serum or plasma an ion gap determination 6.0-15.0 [facility] Sodium [Moles/volume] in Ser um or PlasmaOrdered By: Jovanny Biggs on 08-04-2024 Sodium [Moles/Vol] Sodium [Moles/volume ] in Serum or Plasma Low 136-145 [facility] Specific gravity Test strip (U) [Rel density]Ordered By: Jovanny Biggs on 08-04-2024 Specific gravity (U) [Rel density] Specific gravity of Urine by Test strip 1.001-1.03 0 [facility] Type and Screenon 08-04-2024 ABO and Rh group Nom (Bld) Blood group A Rh(D) positive Normal [facility] Comment on above: Result Comment: PERF ORMED BY: [facility] [address] [place] [address] PATHOLOGIST BRAZING MACHINE OPERATOR MARICHUY JUÁREZ M.D. Urea nitrogen [Mass/volume] in Serum or PlasmaOrdered By: Jovanny Biggs on 08-04-2024 Urea nitrogen [Mass/Vol] Urea nitrogen [Mass/volume] in Serum or Plasma 7-25 [facility] Urobilinogen Test strip (U) [Mass/Vol]Ordered By: Jovanny Biggs on 08-04-2024 Urobilinogen (U) [Mass/Vol] Urobilinogen [Mass/volume] in Urine by Test strip Normal [facility] WBC Auto (Bld) [#/Vol]Ordere d By: Jovanny Biggs on 08-04-2024 WBC (Bld) [#/Vol] Leukocytes [#/volume ] in Blood by Automated count 3.8-11.6 [facility] pH Test strip (U)Ordered By: Jovanny Biggs on 08-04-2024 pH (U) pH of Urine by Test strip 5.0-9.0 [facility] HbA1c HPLC (Bld) [Mass fract ion]on 08-02-2024 HbA1c (Bld) [Mass fraction] Hemoglobin A1c/Hemoglobin.total in Blood by HPLC [facility] No Panel Informationon 08-02 Bedside Glucose 220 [facility] Gastroenterology Office/Clin ic Noteon 05-16-2024 Gastroenterology Office/Clinic Note Chief Complaint elevated liver enzymes History of Present Illness 39-year-old woman presents for follow-up. Overall she is doing okay. Continues to have significant episodes of constipation?takes Amitiza, MiraLAX, Colace and able to achieve hardly anyone good bowel movement on a daily basis. Denies any overt GI bleeding. Recent thyroid surgery by ENT at outside facility. Recently completed EGD on March 30, 2024 for the indication of anemia, patient reported GI bleed was negative for any active bleeding source. Colonoscopy attempted on March 30, 2024 was unfortunately poor bowel prep, however no active bleeding seen. 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 Today's visit patient denies any abdominal pain, nausea, vomiting or overt GI bleeding. During previous hospitalization was found to have abnormal liver enzymes. MRI abdomen with and without contrast obtained on March 02, 2024 showed mildly prominent common bile duct and intrahepatic ducts likely in the setting of postcholecystectomy changes. Very little pancreatic tissue as expected in the setting of history of Whipple. Constipation changes. There was a suspected tiny arterial phase focus of enhancement in the right hepatic lobe thought to be a perfusion anomaly without any gross liver lesions seen. Previous GI notes attached below for reference: History of Present Illness Patient presents to GI Clinic for follow up of GRACE and constipation. Was hospitalized 09/05-09/06 for hematemesis, continues to have hematemesis mixed with melena. Has persistent nausea associated wtih rectal bleeding/vomiting blood. states she does nto feel anemic as she has experienced a hgb of as low as 7. long conversaiton had with her inregards ot need for evaluation at tertiary care center/VCE if neg scopes; voices understanding. EGD 09/07/2023 Impression Esophagus - no evidence of stenosis, varices or mass - GEJ 38 cm Stomach - no ulcer - no AVM - no old or active bleeding - Gastric polyps - seen on prior EGD - Evidence of Whipple procedure Healthy appearing anastomosis - Healthy afferent and efferent jejunal limbs No evidence of bleeding EGD 10/27/2022 Findings No gross lesions were noted in the esophagus. Z-line was noted at Copious amounts of retained bilious fluid which made visualization only fair. The fluid was extensively lavaged and aspirated. No actively bleeding lesions were appreciated. A prior placed hemostatic clip was noted in the gastric body. Few small 2-3mm sessile polyps in gastric fundus, body suggestive of possible underlying fundic gland polyps [prior biopsies demonstrated the same] There was evidence of prior Whipple surgery with healthy looking anastomosis. No gross lesions were noted in the examined portion of the afferent or the efferent jejunal loops. Bilious contents were noted in the lumen Impression and Plan EGD: Diagnosis: Gastric polyps ([id number] K31.7, Discharge, Medical), H/O Whipple procedure ([id number] Z90.410, Discharge, Medical). Orders: There is no evidence of active overt upper GI bleeding at this time. Monitor Hemoglobin/ Hematocrit- transfuse as needed to keep Hb%>7g/dL Continue PPI. IV antiemetics as needed Avoid NSAIDs. kub 10/27/2022 (10/27/2022 09:53 EDT XR Abdomen 2 Views) IMPRESSION: 1. No pneumoperitoneum. 2. Large degree of stool, probable constipation. HPI from hospitalization: This a 31-year-old woman who presented to the ED with chief complaint of multiple episodes of nausea, vomiting with few episodes containing bright red blood in them. Patient has pertinent history of Whipple's [indication being chronic pancreatitis requiring pancreatectomy, subsequent splenectomy in the setting of familial hyperlipidemia] At the time of admission found to be hemodynamically stable but tachycardic. Patient denies any fever/chills, sick contacts, travel history, diarrhea,, melena or vu hematochezia Patient was found to have normocytic, normochromic anemia with Hb of 8.9 g/dL at the time of presentation 10/26/2022. Patient was noted to have CMP with hypokalemia of 5.6, BUN/creatinine of 36/1.91 Old records, imaging reviewed. Patient underwent EGD last on 09/23/2022 which showed evidence of the postprocedure, multiple gastric polyps, prior placed), multiple superficial oozing AVMs versus erosions with hemostasis achieved with a bipolar cautery probe. Gastroenteric anastomosis was healthy in appearance. There were normal-appearing efferent and afferent jejunal limbs. Prior EGD done on 09/05/2022 showed bleeding gastric erosions which were clipped; gastric polyps; normal gastric anastomosis EGD done on 08/06/2022 showed evidence of pylorus sparing Whipple's procedure multiple benign-appearing polyps; healthy-appearing gastric anastomosis with normal efferent and afferent jejunal limbs (more content not included)... Normal [facility] Basic Metabolic Panelon 12-0 Anion gap [Moles/Vol] 10.6 mmol/L Normal 6.0-15.0 [facility] Comment on above: Performed By: #### B MP #### [address] Calcium [Mass/Vol] 8.1 mg/dL Low 8.6-10.3 [facility] Comment on above: Performed By: #### B MP #### [address] Chloride [Moles/Vol] 108 mmol/L High 98-107 [facility] Comment on above: Performed By: #### B MP #### [address] CO2 [Moles/Vol] 19.8 mmol/L Low 21.0-31.0 [facility] Comment on above: Performed By: #### B MP #### [address] Creatinine [Mass/Vol] 2.29 mg/dL High 0.60-1.20 [facility] Comment on above: Performed By: #### B MP #### [address] Creatinine Clr Calc Pharmacy 33.60 Normal [facility] Comment on above: Result Comment: PERF ORMED BY: [place] [address] PATHOLOGIST BRAZING MACHINE OPERATOR MARICHUY JUÁREZ M.D. Performed By: #### B MP #### [address] Estimated GFR 27.362 mL/Min Normal [facility] Comment on above: Performed By: #### B MP #### [address] Glucose [Mass/Vol] 202 mg/dL High 70-100 [facility] Comment on above: Result Comment: [place] Glucose Reference Range is dependent on time and content of last meal. Glucose of more than 200 mg/dL in a nonstressed, ambulatory subject supports the diagnosis of Diabetes Mellitus. ADA recommended reference range Performed By: #### B MP #### [facility] [address] [place] [id number] [facility] Potassium [Moles/Vol] 4.4 mmol/L Normal 3.5-5.1 [facility] Comment on above: Performed By: #### B MP #### [facility] [address] Sodium [Moles/Vol] 134 mmol/L Low 136-145 [facility] Comment on above: Performed By: #### B MP #### [facility] [address] [place] [id number] [facility] Urea nitrogen [Mass/Vol] 37 mg/dL High 7-25 [facility] Comment on above: Performed By: #### B MP #### [facility] [address] [place] [id number] [facility] Calcium [Mass/volume] in Ser um or PlasmaOrdered By: Nico Singleton on 05-15-2024 Calcium [Mass/Vol] Calcium [Mass/volume ] in Serum or Plasma Low 8.6-10.3 [facility] Carbon dioxide, total [Moles /volume] in Serum or PlasmaOrdered By: Nico Singleton on 05-15-2024 CO2 [Moles/Vol] Carbon dioxide, tota l [Moles/volume] in Serum or Plasma Low 21.0-31.0 [facility] Chloride [Moles/volume] in S michael or PlasmaOrdered By: Nico Singleton on 05-15-2024 Chloride [Moles/Vol] Chloride [Moles/vol ume] in Serum or Plasma High 98-107 [facility] Creatinine [Mass/volume] in Serum or PlasmaOrdered By: Nico Singleton on 05-15-2024 Creatinine [Mass/Vol] Creatinine [Mass/v olume] in Serum or Plasma High 0.60-1.20 [facility] GLUCOSE POCT GLUCOMETERSon 1 07-16-2023 Glucose [Mass/Vol] 114 mg/dL [facility] Comment on above: Random Glucose Refer ence Range is dependent on time and content of last meal. Glucose of more than 200 mg/dL in a nonstressed, ambulatory subject supports the diagnosis of Diabetes Mellitus. [facility] Glucose Glucometer (BldC) [M ass/Vol]Ordered By: Daniel Cuevas on 05-15-2024 Glucose [Mass/Vol] Capillary blood gluc ose measurement by glucometer (mass/volume) [facility] Comment on above: Random Glucose Refer ence Range is dependent on time and content of last meal. Glucose of more than 200 mg/dL in a nonstressed, ambulatory subject supports the diagnosis of Diabetes Mellitus. Glucose Poct Glucometerson 1 07-16-2023 Glucose [Mass/Vol] 114 mg/dL Normal [facility] Comment on above: Result Comment: [place] om Glucose Reference Range is dependent on time and content of last meal. Glucose of more than 200 mg/dL in a nonstressed, ambulatory subject supports the diagnosis of Diabetes Mellitus. PERFORMED BY: [place] [address] PATHOLOGIST BRAZING MACHINE OPERATOR MARICHUY JUÁREZ M.D. Performed By: #### U HCG #### [address] Glucose [Mass/volume] in Ser um or PlasmaOrdered By: Nico Singleton on 05-15-2024 Glucose [Mass/Vol] Glucose [Mass/volume ] in Serum or Plasma High 70-100 [facility] Comment on above: ADA recommended refe rence rangeRandom Glucose Reference Range is dependent on time and content of last meal. Glucose of more than 200 mg/dL in a nonstressed, ambulatory subject supports the diagnosis of Diabetes Mellitus. HCG ( test) Fausto iniguez Ql (U)Ordered By: Nico Singleton on 05-15-2024 HCG ( test) Ql (U) Urine human chorionic gonadotropin (hCG) detection by immunoassay [facility] HCG,Urineon 05-15-2024 Beta HCG ( test) Ql (U) Negative Normal [facility] Comment on above: Result Comment: PERF ORMED BY: [facility] [address] [facility] [place] [id number] PATHOLOGIST BRAZING MACHINE OPERATOR MARICHUY JUÁREZ M.D. Performed By: #### U HCG #### [place] [id number] [facility] 05-15-2024 L ----- Specimen: [id number] Received: 05/15/24 Status: LISBETH Zapienkelly Num: [id number] Spec Type: Surgical Subm Dr: Daniel Cuevas DO Tissues: A THYROID - Lobe (LT THYROID LOBE AND ISTHMUS) Procedures: ROSALVA/Rodrigo Quiros/Vidhi L5 Age/ Patient Sex Location Account Attending Physician Pritesh Raza 39/F [place] [id number] Daniel Cuevas DO SPEC NUM: [id number] RECD: 05/15/24 STATUS: LISBETH CARLSON NUM: [id number] BERNIE: 05/15/[address] [facility] [address]: Daniel Cuevas DO ENTERED: 05/15/[address] [facility] [address]: FAY TYPE: Surgical DEPT: S ENTERED BY: [id number] RECV BY: [id number] ORDERED: HE/10, Gross/Micro L5 ORDERED: HE/10, Gross/Micro L5 Pathological Diagnosis Left thyroid and isthmus, left thyroidectomy: - Benign follicular nodule/adenomatous nodular hyperplasia. - Lymphocytic thyroiditis. - Anterior parathyroid gland present. - No evidence of malignancy identified. Clinical Information Left thyroid nodule Gross Description Received in formalin labeled with the patients name, date of , and Left lobe and isthmus is a 14.8 grams, left thyroidectomy specimen with attached isthmus, 5 cm superior to inferior, 3.5 cm medial to lateral, and 3.8 cm anterior to posterior. The inferomedial aspect of the specimen displays a roughened irregular area, 0.9 x 0.5 cm, consistent with fragmented isthmic margin. The remaining capsular surface is henry-pink, smooth and glistening with a linear incision on the anterior aspect, 3 cm in length, and focal adhesions on the posterior aspect. The specimen is inked as follows: Anterior-Yellow Posterior-Black Fragmented isthmic margin-[place] Serial sections reveal a henry-pink, well-circumscribed gelatinous nodule, 2.3 x 1.6 x 2.7 cm. The nodule is situated 2.1 cm from the fragmented isthmic margin, at the linear incision, adjacent (less than 0.1 cm) from the anterior surface, and 0.5 cm from the posterior surface. The remaining thyroid parenchyma is red-brown, glistening and uniform. Specimen: [id number] Received: 05/15/24 Status: LISBETH Carlson Num: [id number] Spec Type: Surgical Subm Dr: Daniel Cuevas DO Tissues: A THYROID - Lobe (LT THYROID LOBE AND ISTHMUS) Procedures: , Gross/Micro L5 Patient: Pritesh Raza [id number] (Continued) Specimen: [id number] Received: 05/15/24 (Continued) Gross Description (Continued) Signed (signature on file) Caleb Lal MD 05/16/24 1307 Specimen: [id number] Received: 05/15/24 Status: LISBETH Carlson Num: [id number] Spec Type: Surgical Subm Dr: Daniel Cuevas DO Tissues: A THYROID - Lobe (LT THYROID LOBE AND ISTHMUS) Procedures: , Gross/Micro L5 Patient: Pritesh Raza [id number] (Continued) Specimen: [id number] Received: 05/15/24 (Continued) Gross Description (Continued) Dinner Cook sections are submitted progressing from superior to inferior aspect (to include the entirety of the nodule) in ten cassettes. (, [id number] A) Microscopic Description Microscopic examination is performed. CPT Codes 15724 Specimen: [id number] Received: 05/15/24 Status: LISBETH Carlson Num: [id number] Spec Type: Surgical Subm Dr: Daniel Cuevas DO Tissues: A THYROID - Lobe (LT THYROID LOBE AND ISTHMUS) Procedures: , Gross/Vidhi L5 Patient: Pritesh Raza [id number] (Continued) Signed (signature on file) Caleb Lal MD 05/16/24 1301 Normal [facility] No Panel InformationOrdered By: Nico Singleton on 05-15-2024 Estimated GFR (CKD-EPI) 27.362 mL/Min [facility] Creatinine Clearance (Chem 33.60 [facility] Potassium [Moles/volume] in Serum or PlasmaOrdered By: Nico Singleton on 05-15-2024 Potassium [Moles/Vol] Potassium [Moles/v olume] in Serum or Plasma 3.5-5.1 [facility] Serum or plasma anion gap de terminationOrdered By: Nico Singleton on 05-15-2024 Anion gap [Moles/Vol] Serum or plasma an ion gap determination 6.0-15.0 [facility] Sodium [Moles/volume] in Ser um or PlasmaOrdered By: Nico Singleton on 05-15-2024 Sodium [Moles/Vol] Sodium [Moles/volume ] in Serum or Plasma Low 136-145 [facility] Urea nitrogen [Mass/volume] in Serum or PlasmaOrdered By: Nico Singleton on 05-15-2024 Urea nitrogen [Mass/Vol] Urea nitrogen [Mass/volume] in Serum or Plasma High 7-25 [facility] Provider Letteron 04-27-2024 Provider Letter (Inserted Image. Allison ble to display) Jalyn Tripathi [address], [place] [address] Re: Pritesh Raza Date of Visit: 03/29/2024 Dear Jalyn Holt, Attached you will find the office visit and/or procedure documentation for Pritesh Raza. Let me know if you have any questions or concerns. Sincerely, Cherelle Ledesma RN C C Providers: Result Name Current Result Reference Range POC Gluc Random (mg/dL) 105 (H) 03/30/2024 70 - 99 Normal [facility] Acanthocytes [Presence] in B lood by Light microscopyOrdered By: Daniel Cuevas on 04-25-2024 Acanthocytes LM Ql (Bld) Acanthocytes [Presence] in Blood by Light microscopy [facility] Alanine aminotransferase [En zymatic activity/volume] in Serum or PlasmaOrdered By: Daniel Cuevas on 04-25-2024 ALT [Catalytic activity/Vol] Alanine aminotransferase [Enzymatic activity/volume] in Serum or Plasma 7-52 [facility] Albumin [Mass/volume] in Ser um or Plasma by Bromocresol green (BCG) dye binding methoOrdered By: Daniel Cuevas on 04-25-2024 Albumin BCG dye [Mass/Vol] Albumin [Mass/volume] in Serum or Plasma by Bromocresol green (BCG) dye binding metho 3.5-5.7 [facility] Alkaline phosphatase [Enzyma tic activity/volume] in Serum or PlasmaOrdered By: Daniel Cuevas on 04-25-2024 ALP [Catalytic activity/Vol] Alkaline phosphatase [Enzymatic activity/volume] in Serum or Plasma 34-104 [facility] Anisocytosis LM Ql (Bld)Orde red By: Daniel Cuevas on 04-25-2024 Anisocytosis Ql (Bld) Anisocytosis [Pres ence] in Blood by Light microscopy [facility] Aspartate aminotransferase [ Enzymatic activity/volume] in Serum or PlasmaOrdered By: Daniel Cuevas on 04-25-2024 AST [Catalytic activity/Vol] Aspartate aminotransferase [Enzymatic activity/volume] in Serum or Plasma 13-39 [facility] Band form neutrophils/100 WB C Manual cnt (Bld)Ordered By: Daniel Cuevas on 04-25-2024 Band form neutrophils/100 WBC (Bld) Peripheral white blood cell differential % bands, microscopic exam High 0-5 [facility] Basophils Auto (Bld) [#/Vol] Ordered By: Daniel Cuevas on 04-25-2024 Basophils (Bld) [#/Vol] Automated basophil count [facility] Basophils/100 WBC Auto (Bld) Ordered By: Daniel Cuevas on 04-25-2024 Basophils/100 WBC (Bld) Automated basophil % [facility] Bilirubin.total [Mass/volume ] in Serum or PlasmaOrdered By: Daniel Cuevas on 04-25-2024 Bilirubin [Mass/Vol] Bilirubin.total [Mass/volume] in Serum or Plasma 0.3-1.0 [facility] Calcium [Mass/volume] in Ser um or PlasmaOrdered By: Daniel Cuevas on 04-25-2024 Calcium [Mass/Vol] Calcium [Mass/volume ] in Serum or Plasma 8.6-10.3 [facility] Carbon dioxide, total [Moles /volume] in Serum or PlasmaOrdered By: Daniel Cuevas on 04-25-2024 CO2 [Moles/Vol] Carbon dioxide, tota l [Moles/volume] in Serum or Plasma 21.0-31.0 [facility] Chloride [Moles/volume] in S michael or PlasmaOrdered By: Daniel Cuevas on 04-25-2024 Chloride [Moles/Vol] Chloride [Moles/vol ume] in Serum or Plasma 98-107 [facility] Comprehensive Metabolic Pane wilver 04-25-2024 Albumin [Mass/Vol] 4.4 g/dL Normal 3.5-5.7 [facility] Comment on above: Performed By: #### C MP #### [facility] [address] [place] [address] Albumin/Globulin [Mass ratio] 1.6 {ratio} Normal [facility] Comment on above: Performed By: #### C MP #### [address] ALP [Catalytic activity/Vol] 102 U/L Normal 34-104 [facility] Comment on above: Result Comment: PERF ORMED BY: [place] [address] PATHOLOGIST BRAZING MACHINE OPERATOR MARICHUY JUÁREZ M.D. Performed By: #### C MP #### [address] ALT [Catalytic activity/Vol] 16 U/L Normal 7-52 [facility] Comment on above: Performed By: #### C MP #### [address] Anion gap [Moles/Vol] 11.6 mmol/L Normal 6.0-15.0 [facility] Comment on above: Performed By: #### C MP #### [address] AST [Catalytic activity/Vol] 17 U/L Normal 13-39 [facility] Comment on above: Performed By: #### C MP #### [address] Bilirubin [Mass/Vol] 0.4 mg/dL Normal 0.3-1.0 [facility] Comment on above: Performed By: #### C MP #### [address] Calcium [Mass/Vol] 9.1 mg/dL Normal 8.6-10.3 [facility] Comment on above: Performed By: #### C MP #### [address] Chloride [Moles/Vol] 107 mmol/L Normal 98-107 [facility] Comment on above: Performed By: #### C MP #### [place] [id number] [place] CO2 [Moles/Vol] 25.1 mmol/L Normal 21.0-31.0 [facility] Comment on above: Performed By: #### C MP #### [address] Creatinine [Mass/Vol] 2.21 mg/dL High 0.60-1.20 [facility] Comment on above: Performed By: #### C MP #### [address] Estimated GFR 28.555 mL/Min Normal [facility] Comment on above: Performed By: #### C MP #### [address] Globulin (S) [Mass/Vol] 2.7 g/dL Normal [facility] Comment on above: Performed By: #### C MP #### [address] Glucose [Mass/Vol] 83 mg/dL Normal 70-100 [facility] Comment on above: Result Comment: [facility] Glucose Reference Range is dependent on time and content of last meal. Glucose of more than 200 mg/dL in a nonstressed, ambulatory subject supports the diagnosis of Diabetes Mellitus. ADA recommended reference range Performed By: #### C MP #### [address] Potassium [Moles/Vol] 4.7 mmol/L Normal 3.5-5.1 [facility] Comment on above: Performed By: #### C MP #### [address] Protein [Mass/Vol] 7.1 g/dL Normal 6.4-8.9 [facility] Comment on above: Performed By: #### C MP #### [address] Sodium [Moles/Vol] 139 mmol/L Normal 136-145 [facility] Comment on above: Performed By: #### C MP #### [place] [id number] [place] Urea nitrogen [Mass/Vol] 28 mg/dL High 7-25 [facility] Comment on above: Performed By: #### C MP #### [address] Creatinine [Mass/volume] in Serum or PlasmaOrdered By: Daniel Cuevas on 04-25-2024 Creatinine [Mass/Vol] Creatinine [Mass/v olume] in Serum or Plasma High 0.60-1.20 [facility] Diff and CBCon 04-25-2024 Acanthocytes Slight Normal [facility] Comment on above: Performed By: #### U HCG #### [address] Anisocytosis Ql (Bld) Slight Normal [facility] Comment on above: Performed By: #### U HCG #### [address] Band form neutrophils/100 WBC (Bld) 7 % High 0-5 [facility] Comment on above: Performed By: #### U HCG #### [address] Erythrocyte distribution width (RBC) [Ratio] 15.3 % Normal 11.9-15.3 [facility] Comment on above: Performed By: #### U HCG #### [address] Hematocrit (Bld) [Volume fraction] 34.3 % Normal 34.0-46.4 [facility] Comment on above: Performed By: #### U HCG #### [address] Hemoglobin (Bld) [Mass/Vol] 11.2 g/dL Low 11.8-15.4 [facility] Comment on above: Performed By: #### U HCG #### [address] Hypochromasia Slight Normal [facility] Comment on above: Performed By: #### U HCG #### [place] [address] [place] Lymphocytes/100 WBC (Bld) 15 % Low 18-42 [facility] Comment on above: Performed By: #### U HCG #### [address] MCH (RBC) [Entitic mass] 30.3 pg Normal 24.7-34.3 [facility] Comment on above: Performed By: #### U HCG #### [address] MCV (RBC) [Entitic vol] 93.1 fL Normal 80-100 [facility] Comment on above: Performed By: #### U HCG #### [address] Mean Corpuscular HGB Conc 32.5 g/dL Normal 32.0-35.0 [facility] Comment on above: Performed By: #### U HCG #### [address] Microcytosis Slight Normal [facility] Comment on above: Performed By: #### U HCG #### [address] Monocytes/100 WBC (Bld) 1 % Low 2-11 [facility] Comment on above: Performed By: #### U HCG #### [address] Ovalocytes Slight Normal [facility] Comment on above: Performed By: #### U HCG #### [address] Platelet Estimate Normal Normal Normal [facility] Comment on above: Performed By: #### U HCG #### [address] Platelet mean volume (Bld) [Entitic vol] 9.9 fL Normal 6.3-10.7 [facility] Comment on above: Performed By: #### U HCG #### [address] Platelet Morphology Normal Normal Normal [facility] Comment on above: Result Comment: PERF ORMED BY: [place] [address] PATHOLOGIST BRAZING MACHINE OPERATOR MARICHUY JUÁREZ M.D. Performed By: #### U HCG #### [place] [address] [place] Platelets (Bld) [#/Vol] 306 10*3/uL Normal 150-450 [facility] Comment on above: Performed By: #### U HCG #### [address] Poikilocytosis Moderate Normal [facility] Comment on above: Performed By: #### U HCG #### [address] Polychromasia Slight Normal [facility] Comment on above: Performed By: #### U HCG #### [place] [address] [place] RBC (Bld) [#/Vol] 3.69 10*6/uL Normal 3.60-5.00 [facility] Comment on above: Performed By: #### U HCG #### [address] Schistocytes Slight Normal [facility] Comment on above: Performed By: #### U HCG #### [address] Segmented neutrophils/100 WBC (Bld) 77 % High 50-70 [facility] Comment on above: Performed By: #### U HCG #### [place] [address] [place] WBC (Bld) [#/Vol] 8.8 10*3/uL Normal 3.8-11.6 [facility] Comment on above: Performed By: #### U HCG #### [address] ECG 12 lead ECGon 04-25-2024 ECG 12 lead ECG [facility] [place] [address] [place] [address] Electrocardiograph Report Signed Patient: Pritesh Raza MR#: [id number] : 1985 Acct:[id number] Age/Sex: 39 / F ADM Date: 04/25/24 Loc: [place] Room: Type: [facility] Attending Dr: Daniel Cuevas DO Ordering Provider: Daniel Cuevas DO Date of Service: 04/25/24 ECG/ECG 12 lead ECG: see order Copies to: Test Reason : Blood Pressure : */* mmHG Vent. Rate : 63 BPM Atrial Rate : 63 BPM P-R Int : 216 ms QRS Dur : 108 ms QT Int : 450 ms P-R-T Axes : 54 25 51 degrees QTcB Int : 460 ms Sinus rhythm with 1st degree AV block Incomplete right bundle branch block Borderline ECG When compared with ECG of 20-May-2023 09:50, premature ventricular complexes are no longer present Confirmed by Tyler Zayas ([id number]) on 04/25/2024 11:00:36 AM Referred By: Electronically Signed By: Tyler Zayas Transcribed By: MUS Signed By Tyler Zayas MD 04/25/24 1100 Normal [facility] Eosinophils Auto (Bld) [#/Vo l]Ordered By: Daniel Cuevas on 04-25-2024 Eosinophils (Bld) [#/Vol] Automated eosinophil count [facility] Eosinophils/100 WBC Auto (Bl d)Ordered By: Daniel Cuevas on 04-25-2024 Eosinophils/100 WBC (Bld) Automated eosinophil % [facility] Erythrocyte distribution wid th Auto (RBC) [Ratio]Ordered By: Daniel Cuevas on 04-25-2024 Erythrocyte distribution width (RBC) [Ratio] Erythrocyte distribution width [Ratio] by Automated count 11.9-15.3 [facility] Erythrocyte morphology findi ng [Identifier] in BloodOrdered By: Daniel Cuevas on 04-25-2024 RBC morphology finding Nom (Bld) RBC morphology [facility] Globulin Calc (S) [Mass/Vol] Ordered By: Daniel Cuevas on 04-25-2024 Globulin (S) [Mass/Vol] Serum globulin measurement by calculation (mass/volume) [facility] Glucose [Mass/volume] in Ser um or PlasmaOrdered By: Daniel Cuevas on 04-25-2024 Glucose [Mass/Vol] Glucose [Mass/volume ] in Serum or Plasma 70-100 [facility] Comment on above: ADA recommended refe rence rangeRandom Glucose Reference Range is dependent on time and content of last meal. Glucose of more than 200 mg/dL in a nonstressed, ambulatory subject supports the diagnosis of Diabetes Mellitus. Hematocrit Auto (Bld) [Volum e fraction]Ordered By: Daniel Cuevas on 04-25-2024 Hematocrit (Bld) [Volume fraction] Hematocrit [Volume Fraction] of Blood by Automated count 34.0-46.4 [facility] Hemoglobin [Mass/volume] in BloodOrdered By: Daniel Cuevas on 04-25-2024 Hemoglobin (Bld) [Mass/Vol] Hemoglobin [Mass/volume] in Blood Low 11.8-15.4 [facility] Hypochromia LM Ql (Bld)Order ed By: Daniel Cuevas on 04-25-2024 Hypochromia Ql (Bld) Hypochromia [Presen ce] in Blood by Light microscopy [facility] INR in Platelet poor plasma by Coagulation assayOrdered By: Daniel Cuevas on 04-25-2024 INR Coag (PPP) [Relative time] INR in Platelet poor plasma by Coagulation assay [facility] Comment on above: INR Therapeutic Rang e A) Pre- and Peroperative OAT started two weeks before surgery. NOT HIP SURGERY: 1.5 - 2.5 HIP SURGERY: 2 - 3B) Primary and secondary prevention of venous THROMBOSIS: 2 - 3C) Active venous thrombosis, pulmonary embolismand prevention of recurrent venous thrombosis: 2 - 3D) Prevention of arterial thromboembolismincluding patients with mechanical heart valves: 3 - 4.5 Leukocytes [#/volume] correc aarti for nucleated erythrocytes in Blood by Automated counOrdered By: Daniel Cuevas on 04-25-2024 WBC corrected for nucl RBC Auto (Bld) [#/Vol] Leukocytes [#/volume] corrected for nucleated erythrocytes in Blood by Automated coun 3.8-11.6 [facility] Lymphocytes Auto (Bld) [#/Vo l]Ordered By: Daniel Cuevas on 04-25-2024 Lymphocytes (Bld) [#/Vol] Lymphocytes [#/volume] in Blood by Automated count [facility] Lymphocytes/100 WBC Auto (Bl d)Ordered By: Daniel Cuevas on 04-25-2024 Lymphocytes/100 WBC (Bld) Lymphocytes/100 leukocytes in Blood by Automated count [facility] Lymphocytes/100 WBC Manual c nt (Bld)Ordered By: Daniel Cuevas on 04-25-2024 Lymphocytes/100 WBC (Bld) Lymphocytes/100 leukocytes in Blood by Manual count Low 18-42 [facility] MCH Auto (RBC) [Entitic mass ]Ordered By: Daniel Cuevas on 04-25-2024 MCH (RBC) [Entitic mass] MCH [Entitic mass] by Automated count 24.7-34.3 [facility] MCHC Auto (RBC) [Mass/Vol]Or dered By: Daniel Cuevas on 04-25-2024 MCHC (RBC) [Mass/Vol] MCHC [Mass/volume] by Automated count 32.0-35.0 [facility] MCV Auto (RBC) [Entitic vol] Ordered By: Daniel Cuevas on 04-25-2024 MCV (RBC) [Entitic vol] MCV [Entitic volume] by Automated count 80-100 [facility] Microcytes LM Ql (Bld)Ordere d By: Daniel Cuevas on 04-25-2024 Microcytes Ql (Bld) Microcytes [Presence ] in Blood by Light microscopy [facility] Monocytes Auto (Bld) [#/Vol] Ordered By: Daniel Cuevas on 04-25-2024 Monocytes (Bld) [#/Vol] Automated blood monocyte count [facility] Monocytes/100 WBC Auto (Bld) Ordered By: Daniel Cuevas on 04-25-2024 Monocytes/100 WBC (Bld) Automated monocyte % [facility] Monocytes/100 WBC Manual cnt (Bld)Ordered By: Daniel Cuevas on 04-25-2024 Monocytes/100 WBC (Bld) Monocytes/100 leukocytes in Blood by Manual count Low 2-11 [facility] Neutrophils Auto (Bld) [#/Vo l]Ordered By: Danile Cuevas on 04-25-2024 Neutrophils (Bld) [#/Vol] Neutrophils [#/volume] in Blood by Automated count [facility] Neutrophils/100 WBC Auto (Bl d)Ordered By: Daniel Cuevas on 04-25-2024 Neutrophils/100 WBC (Bld) Automated neutrophil % [facility] No Panel InformationOrdered By: Daniel Cuevas on 04-25-2024 Estimated GFR (CKD-EPI) 28.555 mL/Min [facility] Creatinine Clearance (Chem N/A [facility] Nucleated erythrocytes [Pres ence] in Blood by Automated countOrdered By: Daniel Cuevas on 04-25-2024 Nucleated RBC Auto Ql (Bld) Nucleated erythrocytes [Presence] in Blood by Automated count [facility] Ovalocytes [Presence] in Blo od by Light microscopyOrdered By: Daniel Cuevas on 04-25-2024 Ovalocytes LM Ql (Bld) Ovalocyte detection [facility] Platelet adequacy [Presence] in Blood by Light microscopyOrdered By: Daniel Cuevas on 04-25-2024 Platelets LM Ql (Bld) Platelet adequacy [Presence] in Blood by Light microscopy Normal [facility] Platelet mean volume Auto (B ld) [Entitic vol]Ordered By: Daniel Cuevas on 04-25-2024 Platelet mean volume (Bld) [Entitic vol] Platelet mean volume [Entitic volume] in Blood by Automated count 6.3-10.7 [facility] Platelet morphology finding [Identifier] in BloodOrdered By: Daniel Cuevas on 04-25-2024 Platelet morphology finding Nom (Bld) Platelet morphology finding [Identifier] in Blood Normal [facility] Platelets Auto (Bld) [#/Vol] Ordered By: Daniel Cuevas on 04-25-2024 Platelets (Bld) [#/Vol] Platelets [#/volume] in Blood by Automated count 150-450 [facility] Poikilocytosis [Presence] in Blood by Light microscopyOrdered By: Daniel Cuevas on 04-25-2024 Poikilocytosis LM Ql (Bld) Poikilocytosis [Presence] in Blood by Light microscopy [facility] Polychromasia [Presence] in Blood by Light microscopyOrdered By: Daniel Cuevas on 04-25-2024 Polychromasia LM Ql (Bld) Polychromasia [Presence] in Blood by Light microscopy [facility] Potassium [Moles/volume] in Serum or PlasmaOrdered By: Daniel Cuevas on 04-25-2024 Potassium [Moles/Vol] Potassium [Moles/v olume] in Serum or Plasma 3.5-5.1 [facility] Protein [Mass/volume] in Ser um or PlasmaOrdered By: Daniel Cuevas on 04-25-2024 Protein [Mass/Vol] Protein [Mass/volume ] in Serum or Plasma 6.4-8.9 [facility] Prothrombin Time INRon 04-25 INR Coag (PPP) [Relative time] 1.0 {INR} Normal [facility] Comment on above: Result Comment: INR Therapeutic Range A) Pre- and Peroperative OAT started two weeks before surgery. NOT HIP SURGERY: 1.5 - 2.5 HIP SURGERY: 2 - 3 B) Primary and secondary prevention of venous THROMBOSIS: 2 - 3 C) Active venous thrombosis, pulmonary embolism and prevention of recurrent venous thrombosis: 2 - 3 D) Prevention of arterial thromboembolism including patients with mechanical heart valves: 3 - 4.5 PERFORMED BY: [place] [address] PATHOLOGIST BRAZING MACHINE OPERATOR MARICHUY JUÁREZ M.D. Performed By: #### P T #### [facility] [address] [place] [address] PT Coag (PPP) [Time] 12.1 s Normal 9.0-12.9 [facility] Comment on above: Result Comment: A matocrit value greater than 55% may lead to inaccurate results in coagulation testing. Patients having hematocrit values >55% require a special collection tube for coagulation studies. Please contact the laboratory at [phone] for redraw instructions. Performed By: #### P T #### [facility] [address] [place] [address] Prothrombin time (PT)Ordered By: Daniel Cuevas on 04-25-2024 PT Coag (PPP) [Time] Prothrombin time (PT) 9.0- 12.9 [facility] Comment on above: A hematocrit value g reater than 55% may lead to inaccurate results in coagulation testing. Patients having hematocrit values >55% require a special collection tube for coagulation studies. Please contact the laboratory at [phone] for redraw instructions. RBC Auto (Bld) [#/Vol]Ordere d By: Daniel Cuevas on 04-25-2024 RBC (Bld) [#/Vol] Erythrocytes [#/volu me] in Blood by Automated count 3.60-5.00 [facility] Schistocytes [Presence] in B lood by Light microscopyOrdered By: Daniel Cuevas on 04-25-2024 Schistocytes LM Ql (Bld) Schistocytes [Presence] in Blood by Light microscopy [facility] Segmented neutrophils/100 WB C Manual cnt (Bld)Ordered By: Daniel Cuevas on 04-25-2024 Segmented neutrophils/100 WBC (Bld) Manual blood segmented neutrophils/100 leukocytes High 50-70 [facility] Serum or plasma albumin/glob ulin mass ratioOrdered By: Daniel Cuevas on 04-25-2024 Albumin/Globulin [Mass ratio] Serum or plasma albumin/globulin mass ratio [facility] Serum or plasma anion gap de terminationOrdered By: Daniel Cuevas on 04-25-2024 Anion gap [Moles/Vol] Serum or plasma an ion gap determination 6.0-15.0 [facility] Sodium [Moles/volume] in Ser um or PlasmaOrdered By: Daniel Cuevas on 04-25-2024 Sodium [Moles/Vol] Sodium [Moles/volume ] in Serum or Plasma 136-145 [facility] Urea nitrogen [Mass/volume] in Serum or PlasmaOrdered By: Daniel Cuevas on 04-25-2024 Urea nitrogen [Mass/Vol] Urea nitrogen [Mass/volume] in Serum or Plasma High 7-25 [facility] WBC Auto (Bld) [#/Vol]Ordere d By: Daniel Cuevas on 04-25-2024 WBC (Bld) [#/Vol] Leukocytes [#/volume ] in Blood by Automated count 3.8-11.6 [facility] HbA1c HPLC (Bld) [Mass fract ion]on 04-11-2024 HbA1c (Bld) [Mass fraction] Hemoglobin A1c/Hemoglobin.total in Blood by HPLC [facility] No Panel Informationon 04-11 Bedside Glucose 111 [facility] .UA Microscp Aon 03-30-2024 UA Mucus Present Normal Absent [facility] Comment on above: Performed By: #### . Urinalysis Microscopic Auto ####[place] [id number] UA RBC Quant 2 /HPF Normal 0-5 [facility] Comment on above: Performed By: #### . Urinalysis Microscopic Auto ####[place] [id number] UA Squepi Cells Quant 1 /HPF Normal 0-29 [facility] Comment on above: Performed By: #### . Urinalysis Microscopic Auto ####[place] [id number] UA WBC Quant 1 /HPF Normal 0-5 [facility] Comment on above: Performed By: #### . Urinalysis Microscopic Auto ####[place] [address] CBC w/ Diffon 03-30-2024 Erythrocyte distribution width (RBC) [Ratio] 15.1 % High 11.6-14.8 [facility] Comment on above: Performed By: #### I GG #### [place] [address] Hematocrit (Bld) [Volume fraction] 32.7 % Low 36.0-46.0 [facility] Comment on above: Performed By: #### I GG #### [place] [address] Hemoglobin (Bld) [Mass/Vol] 10.5 g/dL Low 12.0-16.0 [facility] Comment on above: Performed By: #### I GG #### [place] [address] MCH (RBC) [Entitic mass] 30.3 pg Normal 27.0-35.0 [facility] Comment on above: Performed By: #### I GG #### [place] [address] MCHC 32.1 % Normal 31.0-37.0 [facility] Comment on above: Performed By: #### I GG #### [address] [address] MCV (RBC) [Entitic vol] 94.4 fL Normal 80.0-100.0 [facility] Comment on above: Performed By: #### I GG #### [address] [address] Platelet 244 x10*3/mcL Normal 150-450 [facility] Comment on above: Performed By: #### I GG #### [address] [address] Platelet mean volume (Bld) [Entitic vol] 9.8 fL Normal 6.7-10.6 [facility] Comment on above: Performed By: #### I GG #### [address] [address] RBC 3.46 x10*6/mcL Low 3.80-5.20 [facility] Comment on above: Performed By: #### I GG #### [address] [address] WBC 6.6 x10*3/mcL Normal 4.5-11.0 [facility] Comment on above: Performed By: #### I GG #### [address] [address] Diff Autoon 03-30-2024 Baso Absolute SEE COMMENT Normal 0.0-0.2 [facility] Comment on above: Result Comment: See manual diff Performed By: #### C BC #### [address] [address] Basophil Auto SEE COMMENT Normal 0.0-1.5 [facility] Comment on above: Result Comment: See manual diff Performed By: #### C BC #### [address] [address] Eos Absolute SEE COMMENT Normal 0.0-0.4 [facility] Comment on above: Result Comment: See manual diff Performed By: #### C BC #### [address] [place] [address] Eos Auto SEE COMMENT Normal 0.0-5.4 [facility] Comment on above: Result Comment: See manual diff Performed By: #### C BC #### [address] [place] [address] Lymph Absolute SEE COMMENT Normal 1.0-4.8 [facility] Comment on above: Result Comment: See manual diff Performed By: #### C BC #### [address] [place] [address] Lymph Auto SEE COMMENT Normal 27.2-40.8 [facility] Comment on above: Result Comment: See manual diff Performed By: #### C BC #### [address] [place] [address] [place] Absolute SEE COMMENT Normal 0.1-1.1 [facility] Comment on above: Result Comment: See manual diff Performed By: #### C BC #### [address] [place] [address] Howell Auto SEE COMMENT Normal 3.7-11.9 [facility] Comment on above: Result Comment: See manual diff Performed By: #### C BC #### [address] [place] [address] Neutro Absolute SEE COMMENT Normal 1.8-7.7 [facility] Comment on above: Result Comment: See manual diff Performed By: #### C BC #### [address] [place] [address] Neutro Auto SEE COMMENT Normal 47.2-70.8 [facility] Comment on above: Result Comment: See manual diff Performed By: #### C BC #### [address] [place] [address] Diff Tracey 03-30-2024 Acanthocytes Few Normal [facility] Comment on above: Performed By: #### H GBHCT #### [address] [place] [address] Anisocyte Slight Normal [facility] Comment on above: Performed By: #### H GBHCT #### [facility] [address] [place] [address], [place] [address] Band form neutrophils/100 WBC (Bld) 0 % Normal 0-5 [facility] Comment on above: Performed By: #### H GBHCT #### [address] [place] [address] Basophils/100 WBC (Bld) 0 % Normal 0-3 [facility] Comment on above: Performed By: #### H GBHCT #### [address] [place] [address] Eosinophils/100 WBC (Bld) 0 % Normal 0-7 [facility] Comment on above: Performed By: #### H GBHCT #### [address] [place] [address] Lymphocytes/100 WBC (Bld) 30 % Normal 14-42 [facility] Comment on above: Performed By: #### H GBHCT #### [address] [place] [address] Monocytes/100 WBC (Bld) 9 % Normal 1-11 [facility] Comment on above: Performed By: #### H GBHCT #### [address] [place] [address] Ovalocytes Few Normal [facility] Comment on above: Performed By: #### H GBHCT #### [address] [place] [address] Platelet estimate Adequate Normal [facility] Comment on above: Performed By: #### H GBHCT #### [address] [place] [address] Poikilocytes Slight Normal [facility] Comment on above: Performed By: #### H GBHCT #### [address] [place] [address] RBC morphology finding Nom (Bld) Abnormal Normal [facility] Comment on above: Performed By: #### H GBHCT #### [address] [place] [address] Schistocytes Few Normal [facility] Comment on above: Performed By: #### H GBHCT #### [address] [address] Segs Man 61 % Normal 49-79 [facility] Comment on above: Performed By: #### H GBHCT #### [address] [address] Smudge Cell 3 % WBC Normal [facility] Comment on above: Performed By: #### H GBHCT #### [address] [address] Target Cell Few Normal [facility] Comment on above: Performed By: #### H GBHCT #### [address] [address] Inpatient Clinical Summary 03-30-2024 Inpatient Clinical Summary [address] [address] [place] [address] Clinical Summary Person Information Name: Pritesh Raza Age: 39 Years : 1985 Sex: Female PCP: Jalyn Holt DO Marital Status: Single Phone: PCP: Race: White Ethnicity: Not or Language: Greenlandic Visit Id: Visit Reason: HTN - Hypertension; hypertension Speciality: Acuity: 3 Enc Type: Inpatient Med Service: Emergency Medicine Arrival: 03/29/2024 13:16:25 Discharge: Dispo Type: Address: [address] [place] [phone] Diagnosis: Chronic abdominal pain; Insomnia; Palliative care encounter; Refractory nausea and vomiting Discharged To: Home Treatments: Devices/Equipment: Professional Skilled Services: Special Services and Community Resources: Mode of Discharge Transportation: Discharge Orders Follow up 03/30/24 13:34:00 EDT, Provider: Reece STYLES, Keisha Hoang, 1 to 2 weeks, Hospital discharge follow-up Follow up 03/30/24 13:34:00 EDT, Provider: Kelli STYLES, Samir Cordova, 2 to 4 weeks, Hospital discharge follow-up Allergies Reglan (Breathing difficulty) (Rash) Bentyl (Vomiting projectile) penicillin (Anaphylactic reaction) erythromycin (Anaphylactic reaction) Duricef (Anaphylactic reaction) ciprofloxacin (Anaphylactic reaction) Macrobid (Anaphylactic reaction) vancomycin (Anaphylactic reaction) clindamycin (Anaphylactic reaction) Toradol (Rash) Demerol (Hyperactive) metronidazole (Rash) (Dyspnea) Functional Status: Sensory Deficits: History of Falls: None Mobility Assistance Prior to Admission: ADLs: Independent Gait: Steady Ambulation Assist: Assistive Device: Special Orthopedic Devices: Current Level of Assistance for Self-Care/Mobility: Cognitive Status: Orientation: Orientation Assessment Oriented x 4 Level of Consciousness: Alert Characteristics of Speech: Clear Aspiration Risk: None Affect/Behavior: Appropriate, Calm, Cooperative Laboratory or Other Results This Visit (last charted value for your 03/29/2024 visit) Hematology 03/30/2024 5:38 AM WBC: 6.6 x10 RBC: 3.46 x10 Segs Man: 61 % -- Normal range between ( 49 and 79 ) Lymph Man: 30 % -- Normal range between ( 14 and 42 ) Neutro Auto: SEE COMMENT % -- Normal range between ( 47.2 and 70.8 ) Lymph Auto: SEE COMMENT % -- Normal range between ( 27.2 and 40.8 ) Howell Auto: SEE COMMENT % -- Normal range between ( 3.7 and 11.9 ) Eos Auto: SEE COMMENT % -- Normal range between ( 0.0 and 5.4 ) Basophil Auto: SEE COMMENT % -- Normal range between ( 0.0 and 1.5 ) Monocyte Man: 9 % -- Normal range between ( 1 and 11 ) Eos Man: 0 % -- Normal range between ( 0 and 7 ) Basophil Man: 0 % -- Normal range between ( 0 and 3 ) Acanthocytes: Few Baso Absolute: SEE COMMENT x10 MCV: 94.4 fL -- Normal range between ( 80.0 and 100.0 ) RBC Morph: Abnormal MCHC: 32.1 % -- Normal range between ( 31.0 and 37.0 ) Lymph Absolute: SEE COMMENT x10 Hct: 32.7 % -- Normal range between ( 36.0 and 46.0 ) Schistocytes: Few Ovalocytes: Few Howell Absolute: SEE COMMENT x10 Poikilocytes: Slight MCH: 30.3 pg -- Normal range between ( 27.0 and 35.0 ) Neutro Absolute: SEE COMMENT x10 Hgb: 10.5 g/dL -- Normal range between ( 12.0 and 16.0 ) Mean Platelet Volume: 9.8 fL -- Normal range between ( 6.7 and 10.6 ) Band Man: 0 % -- Normal range between ( 0 and 5 ) Platelet: 244 x10 Eos Absolute: SEE COMMENT x10 Anisocyte: Slight RDW: 15.1 % -- Normal range between ( 11.6 and 14.8 ) Target Cell: Few Platelet estimate: Adequate Smudge Cell: 3 % WBC 03/29/2024 2:08 PM Hypochromasia: Slight Urinalysis 03/30/2024 1:03 AM UA Color: Light-Yellow UA Urobilinogen: Normal mg/dL UA Bili: Negative UA Ketones: Trace mg/dL UA Leukocyte Esterase: Negative UA Nitrite: Negative UA Glucose: Normal mg/dL UA Protein: Negative mg/dL UA Blood: Negative UA Spec Grav: 1.010 -- Normal range between ( 1.003 and 1.035 ) UA pH: 5.0 UA Clarity: Clear UA Source: Clean Catch UA Mucus: Present /LPF UA WBC Quant: 1 /HPF -- Normal range between ( 0 and 5 ) UA RBC Quant: 2 /HPF -- Normal range between ( 0 and 5 ) UA Squepi Cells Quant: 1 /HPF -- Normal range between ( 0 and 29 ) Chemistry 03/29/2024 2:08 PM Creatinine Lvl: 2.02 mg/dL -- Normal range between ( 0.44 and 1.03 ) BUN: 18 mg/dL -- Normal range between ( 8 and 26 ) Glucose Lvl: 104 mg/dL -- Normal range between ( 70 and 99 ) Potassium Lvl: 3.8 mmol/L -- Normal range between ( 3.4 and 4.8 ) Sodium Lvl: 138 mmol/L -- Normal range between ( 133 and 142 ) Calcium Lvl: 8.7 mg/dL -- Normal range between ( 8.5 and 10.3 ) Chloride: 106 mmol/L -- Normal range between ( 98 and 110 ) CO2: 23 mmol/L -- Normal range between ( 22 and 32 ) Anion Gap: 9 -- Normal range between ( 4 and 12 ) (more content not included)... Normal [facility] Operative Reporton 4 Operative Report Missing Attachment - attachment storage system not supported [id number] Can be viewed in source system Missing Attachment - attachment storage system not supported [id number] Can be viewed in source system Missing Attachment - attachment storage system not supported [id number] Can be viewed in source system Missing Attachment - attachment storage system not supported [id number] Can be viewed in source system Missing Attachment - attachment storage system not supported [id number] Can be viewed in source system Missing Attachment - attachment storage system not supported 4318979 Can be viewed in source system Missing Attachment - attachment storage system not supported [id number] Can be viewed in source system Missing Attachment - attachment storage system not supported 0099649 Can be viewed in source system Missing Attachment - attachment storage system not supported 6537251 Can be viewed in source system Missing Attachment - attachment storage system not supported [id number] Can be viewed in source system Missing Attachment - attachment storage system not supported 1097838 Can be viewed in source system Missing Attachment - attachment storage system not supported 1710384 Can be viewed in source system Missing Attachment - attachment storage system not supported 5712618 Can be viewed in source system Missing Attachment - attachment storage system not supported 7359495 Can be viewed in source system Missing Attachment - attachment storage system not supported 2334825 Can be viewed in source system Missing Attachment - attachment storage system not supported 5340015 Can be viewed in source system Missing Attachment - attachment storage system not supported 5500157 Can be viewed in source system Missing Attachment - attachment storage system not supported 6462727 Can be viewed in source system Missing Attachment - attachment storage system not supported 8536995 Can be viewed in source system Patient: Pritesh Raza Age: 39 years Sex: Female : 1985 Associated Diagnoses: None Author: Samir Pereira MD Pre-Procedure Current history and physical: Allergies (12) Active Reaction ciprofloxacin Anaphylactic reaction clindamycin Anaphylactic reaction Duricef Anaphylactic reaction erythromycin Anaphylactic reaction Macrobid Anaphylactic reaction penicillin Anaphylactic reaction Reglan Breathing difficulty vancomycin Anaphylactic reaction Bentyl Vomiting projectile metronidazole Dyspnea Toradol Rash Demerol Hyperactive . Problem History: All Problems Palliative care status / [id number] / Confirmed Alteration in comfort: pain / 84517543 / Confirmed Alteration in nutrition / 085501259 / Confirmed Anemia / 063143980 / Confirmed Anxiety / 26153101 / Confirmed At risk for infection / 219918452 / Confirmed Bowel dysfunction / 082950373 / Confirmed Chronic abdominal pain / 184978556 / Confirmed Chronic kidney disease, stage 3b / 3511046943 / Confirmed Chronic vomiting / 548786950 / Confirmed Decreased cardiac output / 661585515 / Confirmed Familial hypertriglyceridemia / 20639985 / Confirmed GI bleed / 133792771 / Confirmed H/O Whipple procedure / 0072162352 / Confirmed Hypertension / 2192020326 / Confirmed Uncontrolled hypertension / 3603071906 / Confirmed Insomnia / 663087459 / Confirmed Thyroid mass / 1739153475 / Confirmed Chronic nausea / 1561018515 / Confirmed Refractory nausea and vomiting / 00669940 / Confirmed Nonalcoholic fatty liver / 770580326 / Confirmed Pain management / 703499791 / Confirmed Pancreatitis / 868916507 / Confirmed Rheumatoid arthritis / 147804959 / Confirmed Diabetes mellitus-Type I / 116465052 / Confirmed. Images Procedure images: COLON_0001.jpg COLON_0002.jpg COLON_0003.jpg COLON_0004.jpg COLON_0005.jpg COLON_0006.jpg COLON_0007.jpg COLON_0008.jpg COLON_0009.jpg COLON_0010.jpg COLON_0011.jpg COLON_0012.jpg COLON_0013.jpg COLON_0014.jpg COLON_0015.jpg COLON_0016.jpg COLON_0017.jpg COLON_0018.jpg COLON_0019.jpg . Post-Procedure Complications encountered during the procedure were none. Estimated blood loss during the procedure was none. Impression and Plan Indication for colonoscopy is anemia, GI bleed. Exa (more content not included)... Normal [facility] Comment on above: Order Comment: Study ordered per discussion with Dr. Antoine Operative Report Missing Attachment - attachment storage system not supported [id number] Can be viewed in source system Missing Attachment - attachment storage system not supported 8981880 Can be viewed in source system Missing Attachment - attachment storage system not supported 3359779 Can be viewed in source system Missing Attachment - attachment storage system not supported 3418276 Can be viewed in source system Missing Attachment - attachment storage system not supported 4574299 Can be viewed in source system Missing Attachment - attachment storage system not supported 7579437 Can be viewed in source system Missing Attachment - attachment storage system not supported 1089774 Can be viewed in source system Missing Attachment - attachment storage system not supported 2051459 Can be viewed in source system Missing Attachment - attachment storage system not supported 4445019 Can be viewed in source system Missing Attachment - attachment storage system not supported 6986107 Can be viewed in source system Missing Attachment - attachment storage system not supported 7901321 Can be viewed in source system Missing Attachment - attachment storage system not supported 1984747 Can be viewed in source system Missing Attachment - attachment storage system not supported 2416672 Can be viewed in source system Missing Attachment - attachment storage system not supported 7260980 Can be viewed in source system Missing Attachment - attachment storage system not supported 4079327 Can be viewed in source system Missing Attachment - attachment storage system not supported 6522327 Can be viewed in source system Missing Attachment - attachment storage system not supported 3757746 Can be viewed in source system Patient: Pritesh Raza Age: 39 years Sex: Female : 1985 Associated Diagnoses: None Author: Kelli STYLES, Samir Cordova Pre-Procedure Current history and physical: Esophagogastroduodenoscop y on 12/03/2023 at 38 Years. Comments: 12/03/2023 14:04 David Pierce auto-populated from documented surgical case Esophagogastroduodenoscop y on 09/07/2023 at 38 Years. Comments: 09/07/2023 12:46 RASHELT - Judy Root auto-populated from documented surgical case port insertion in the month of 07/2023 at 38 Years. Colonoscopy on 12/29/2022 at 37 Years. Comments: 12/29/2022 9:19 RASHELT - Ana Dupree auto-populated from documented surgical case Esophagogastroduodenoscop y on 12/29/2022 at 37 Years. Comments: 12/29/2022 9:19 RASHELT - Ana Dupree auto-populated from documented surgical case Esophagogastroduodenoscop y on 10/27/2022 at 37 Years. Comments: 10/27/2022 8:55 RASHELT - Montez Tarango auto-populated from documented surgical case Esophagogastroduodenoscop y Control Bleeding on 09/23/2022 at 37 Years. Comments: 09/23/2022 7:46 ROSEMARY - Cherelle Valencia auto-populated from documented surgical case Esophagogastroduodenoscop y on 09/05/2022 at 37 Years. Comments: 09/05/2022 11:58 Huber Briseno auto-populated from documented surgical case Esophagogastroduodenoscop y Polypectomy on 08/06/2022 at 37 Years. Comments: 08/06/2022 12:48 Loretta Napoles auto-populated from documented surgical case Esophagogastroduodenoscop y on 09/08/2020 at 35 Years. Comments: 09/08/2020 10:00 ROSEMARY - Fern Strong auto-populated from documented surgical case gallbladder. pancreas removal. appendix removal. Spleen removal. REMOVAL OF TONSILS (12036). whipple., Allergies (12) Active Reaction ciprofloxacin Anaphylactic reaction clindamycin Anaphylactic reaction Duricef Anaphylactic reaction erythromycin Anaphylactic reaction Macrobid Anaphylactic reaction penicillin Anaphylactic reaction Reglan Breathing difficulty vancomycin Anaphylactic reaction Bentyl Vomiting projectile metronidazole Dyspnea Toradol Rash Demerol Hyperactive , Medications (30) Active Scheduled: (13) amLODIPine 10 mg Tab 10 mg, Oral, HS (at bedtime) cloNIDine 0.2 mg/24 hr TD Film, ER 2 patches, Topical, droNABinol 5 mg Cap 5 mg, Oral, BID heparin 5000 units/mL Inj Soln 1 mL 5,000 units 1 mL, Subcutaneous, [id number] Times lubiprostone 24 mcg Cap 24 mcg, Oral, BID metoprolol tartrate 1 mg/mL Inj Soln 5 mL 5 mg 5 mL, IV Push, q6hr OLANZapine 2.5 mg Tab 5 mg, Oral, HS (at bedtime) omeprazole [address] Cap 40 mg, Oral, BID pancrelipase 12,000 units-38,000 units-60,[address] Cap 3 caps, Oral, AC QUEtiapine 200 mg Tab 200 mg, Oral, HS (at bedtime) sodium chloride 0.9% Inj Soln 10 mL Flush 10 mL, IV Push, BID tiZANidine 4 mg Tab 8 mg, Oral, BID zolpidem 5 mg Tab 5 mg, Oral, HS (at bedtime) Continuous: (2) Sodium Chloride 0.9% 1,000 mL 1,000 mL, IV, 15 mL/hr Sodium Chloride 0.9% 1,000 mL 1,000 mL, IV, 100 mL/hr PRN: (15) acetaminophen 325 mg Tab 650 mg, Oral, q6hr acetaminophen 325 mg Tab 650 mg, Oral, q6hr acetaminophen-oxyCODONE 325 mg-5 mg Tab 2 tabs, Oral, q4hr (more content not included)... Normal [facility] Comment on above: Order Comment: Zoe vasquez Attachment - attachment storage system not supported [id number] Can be viewed in source systemMissing Attachment - attachment storage system not supported 2401414 Can be [facility] Attachment - attachment storage system not supported 8909298 Can be viewed in source systemMissing Attachment - attachment storage system not supported 5918781 Can be viewed [facility] Attachment - attachment storage system not supported 0305386 Can be viewed [facility] Attachment - attachment storage system not supported 3370677 Can be viewed in source systemMissing Attachment - attachment storage system not supported 2000318 Can be viewed in source systemMissing Attachment - attachment storage system not supported 7353951 Can be viewed [facility] Attachment - attachment storage system not supported 5496136 Can be viewed in source systemMissing Attachment - attachment storage system not supported 3004818 Can be viewed in source systemMissing Attachment - attachment storage system not supported 7344115 Can be viewed in source systemMissing Attachment - attachment storage system not supported 8351279 Can be viewed in source systemMissing Attachment - attachment storage system not supported 3696247 Can be viewed in source systemMissing Attachment - attachment storage system not supported 8843449 Can be viewed in source systemMissing Attachment - attachment storage system not supported 8776765 Can be viewed in source systemMissing Attachment - attachment storage system not supported 8726814 Can be viewed in source systemMissing Attachment - attachment storage system not supported 5453161 Can be viewed in source system POC Glucose Randomon 024 Glucose [Mass/Vol] 105 mg/dL High 70-99 [facility] Comment on above: Performed By: #### C [id number] #### [address] [address] Progress Note-Nurseon 2023 Progress Note-Nurse Pt AOX4, PT port heparinized and left in for chronic use at home, Pt ambulatory, Pt given and explained DC paperwork, Pt verbalized understanding, PT left with all belongings, Pt walked down to [facility] to leave with family. Electronically signed by Wilver Alcazar 03/30/24 16:34 EDT Normal [facility] UA w Culture if Indon 2023 Color (U) Light-Yellow Normal Yellow [facility] Comment on above: Performed By: #### C BCI #### [address] [address] Ketones Ql (U) Trace Abnormal Negative [facility] Comment on above: Performed By: #### C BCI #### [address] [address] UA Blood Negative Normal Negative [facility] Comment on above: Performed By: #### C BCI #### [facility] [address] [place] [address], [place] [address] UA Clarity Clear Normal Clear [facility] Comment on above: Performed By: #### C BCI #### [facility] [address] [place] [address], [place] [address] UA Glucose Normal Normal Negative [facility] Comment on above: Performed By: #### C BCI #### [facility] [address] [place] [address], [place] [address] UA Leukocyte Esterase Negative Normal Negative [facility] Comment on above: Performed By: #### C BCI #### [facility] [address] [place] [address], [place] [address] UA Nitrite Negative Normal Negative [facility] Comment on above: Performed By: #### C BCI #### [facility] [address] [place] [address], [place] [address] UA pH 5.0 Normal 4.5 - 7.8 [facility] Comment on above: Performed By: #### C BCI #### [facility] [address] [place] [address], [place] [address] UA Protein Negative Normal Negative [facility] Comment on above: Performed By: #### C BCI #### [facility] [address] [place] [address], [place] [address] UA Source Clean Catch Normal [facility] Comment on above: Performed By: #### C BCI #### [facility] [address] [place] [address] UA Spec Grav 1.010 Normal 1.003-1.03 5 [facility] Comment on above: Performed By: #### C BCI #### [facility] [address] [place] [address], [place] [address] UA Urobilinogen Normal Normal 0.2 - 1.0 [facility] Comment on above: Performed By: #### C BCI #### [address] [place] [address] Urobilinogen (U) [Mass/Vol] Negative Normal Negative [facility] Comment on above: Performed By: #### C BCI #### [address] [address] .eGFRon 03-29-2024 Estimated GFR 32 mL/min/1.73m? Low >=60 [facility] Comment on above: Result Comment: [facility] Laboratories have implemented the eGFR calculation approach that does not have a coefficient for race and that conforms to the NKF-ASN Task Force Recommendations. Stages of Chronic Kidney Disease GFR Stage 3a Mild to moderate loss of kidney function 59 to 45 Stage 3b Moderate to severe loss of kidney function 44 to 33 Stage 4 Severe loss of kidney function 29 to 15 Stage 5 Kidney failure Less than 15 GFR calculated using the CKD-Epi Creatinine Equation (2020): eGFR = 142 X min(SCr/?, 1)? X max(SCr /?, 1)-1.200 X 0.9938Age X 1.012 [if female] Abbreviations/Units: eGFR (estimated glomerular filtration rate) = mL/min/1.73 m2 SCr (standardized serum creatinine) = mg/dL ? = 0.7 (females) or 0.9 (males) ? = -0.241 (females) or -0.302 (males) min = indicates the minimum of SCr/? or 1 max = indicates the maximum of SCr/? or 1 Age = years Performed By: #### C [id number] #### [address] [address] Basic Metabolic Profileon Anion gap [Moles/Vol] 9 mmol/L Normal 4-12 [facility] Comment on above: Performed By: #### C [id number] #### [address] [address] Calcium [Mass/Vol] 8.7 mg/dL Normal 8.5-10.3 [facility] Comment on above: Performed By: #### C [id number] #### [address] [address] Chloride [Moles/Vol] 106 mmol/L Normal 98-110 [facility] Comment on above: Performed By: #### C [id number] #### [address] [address] CO2 [Moles/Vol] 23 mmol/L Normal 22-32 [facility] Comment on above: Performed By: #### C [id number] #### [address] [address] Creatinine [Mass/Vol] 2.02 mg/dL High 0.44-1.03 [facility] Comment on above: Performed By: #### C [id number] #### [address] [address] Glucose [Mass/Vol] 104 mg/dL High 70-99 [facility] Comment on above: Performed By: #### C [id number] #### [address] [address] Potassium [Moles/Vol] 3.8 mmol/L Normal 3.4-4.8 [facility] Comment on above: Performed By: #### C [id number] #### [address] [address] Sodium [Moles/Vol] 138 mmol/L Normal 133-142 [facility] Comment on above: Performed By: #### C [id number] #### [address] [address] Urea nitrogen [Mass/Vol] 18 mg/dL Normal 8-26 [facility] Comment on above: Performed By: #### C [id number] #### [address] [address] Urea nitrogen/Creatinine [Mass ratio] 8.9 mg/mg Low 10.0-20.0 [facility] Comment on above: Performed By: #### C [id number] #### [address] [address] CBC w/ Diffon 03-29-2024 Erythrocyte distribution width (RBC) [Ratio] 14.8 % Normal 11.6-14.8 [facility] Comment on above: Performed By: #### C BCI #### [address] [address] Hematocrit (Bld) [Volume fraction] 33.7 % Low 36.0-46.0 [facility] Comment on above: Performed By: #### C BCI #### [address] [address] Hemoglobin (Bld) [Mass/Vol] 11.1 g/dL Low 12.0-16.0 [facility] Comment on above: Performed By: #### C BCI #### [address] [address] MCH (RBC) [Entitic mass] 30.5 pg Normal 27.0-35.0 [facility] Comment on above: Performed By: #### C BCI #### [address] [address] MCHC 32.9 % Normal 31.0-37.0 [facility] Comment on above: Performed By: #### C BCI #### [address] [address] MCV (RBC) [Entitic vol] 92.6 fL Normal 80.0-100.0 [facility] Comment on above: Performed By: #### C BCI #### [address] [address] Platelet 276 x10*3/mcL Normal 150-450 [facility] Comment on above: Performed By: #### C BCI #### [address] [address] Platelet mean volume (Bld) [Entitic vol] 9.9 fL Normal 6.7-10.6 [facility] Comment on above: Performed By: #### C BCI #### [address] [address] RBC 3.64 x10*6/mcL Low 3.80-5.20 [facility] Comment on above: Performed By: #### C BCI #### [address] [address] WBC 7.7 x10*3/mcL Normal 4.5-11.0 [facility] Comment on above: Performed By: #### C BCI #### [address] [address] Diff Tracey 03-29-2024 Acanthocytes Few Normal [facility] Comment on above: Performed By: #### C [id number] #### [address] [place] [address] Band form neutrophils/100 WBC (Bld) 0 % Normal 0-5 [facility] Comment on above: Performed By: #### C [id number] #### [address] [address] Basophils/100 WBC (Bld) 2 % Normal 0-3 [facility] Comment on above: Performed By: #### C [id number] #### [address] [address] Eosinophils/100 WBC (Bld) 1 % Normal 0-7 [facility] Comment on above: Performed By: #### C [id number] #### [address] [address] Hypochromasia Slight Normal [facility] Comment on above: Performed By: #### C [id number] #### [address] [address] Lymphocytes/100 WBC (Bld) 27 % Normal 14-42 [facility] Comment on above: Performed By: #### C [id number] #### [address] [address] Monocytes/100 WBC (Bld) 1 % Normal 1-11 [facility] Comment on above: Performed By: #### C [id number] #### [address] [place] [address] Ovalocytes Few Normal [facility] Comment on above: Performed By: #### C [id number] #### [address] [address] Platelet estimate Adequate Normal [facility] Comment on above: Performed By: #### C [id number] #### [address] [address] Segs Man 69 % Normal 49-79 [facility] Comment on above: Performed By: #### C [id number] #### [address] [address] ED Clinical Summaryon 2023 ED Clinical Summary (Inserted Image. Allison ble to display) [address] [address] ED Clinical Summary Person Information Name: [facility] Age: 39 Years : 1985 Sex: Female PCP: Jalyn Holt DO Marital Status: Single Phone: Race: White Ethnicity: Not or Language: Greenlandic Visit Reason: HTN - Hypertension; hypertension Acuity: 3 Enc Type: Inpatient Med Service: Emergency Medicine Arrival: 03/29/2024 13:16:25 Discharge: LOS: 000 05:20 Checkin: 03/29/2024 13:16:25 Checkout: 03/29/2024 18:36:19 Dispo Type: Address: [address] [place] [phone] Provider Notes: History of Present Illness Patient is a 39 year old female presenting to the ED with hypertension. Patient reports that she was scheduled to have upper and lower GI scopes done with Dr. Pereira, and her BP was in the low 200's/120's. Patient is on blood pressure medications at home and did take them this morning before the procedures. Patient did not have her procedures done, and Dr. Pereira wanted the patient admitted. Patient has chronic nausea and states that her urine has been darker recently. Patient denies chest pain, trouble breathing, nausea, or vomiting. Patient has a history of DM. She denies smoking, drinking, or other drug use. Review of Systems As reviewed in the HPI. All other systems reviewed are negative or normal. Physical Exam CONSTITUTIONAL: [no apparent distress, well appearing] SKIN: [warm, dry, no jaundice, hives or petechiae] EYES: [pupils are equally round, extraocular movements intact without nystagmus, clear conjunctiva, non-icteric sclera] HENT: [normocephalic, atraumatic, moist mucus membranes, oropharynx clear without exudates] NECK: [Nontender and supple with no nuchal rigidity, no lymphadenopathy, full range of motion] PULMONARY: [clear to auscultation without wheezes, rhonchi, or rales, normal excursion, no accessory muscle use and no stridor] CARDIOVASCULAR: [regular rate, rhythm, normal S1 and S2. No appreciated murmurs. Strong radial pulses with intact distal perfusion] GASTROINTESTINAL: [soft, non-tender, non-distended, no palpable masses, no rebound or guarding] GENITOURINARY: [No costovertebral angle tenderness to palpation] LYMPHATICS: [no edema in lower extremities, no lymphadenopathy] MUSCULOSKELETAL: [Extremities are nontender to palpation and have no gross deformity, no edema, redness, or swelling] NEUROLOGIC: [alert, normal mentation and speech. Moves all extremities x 4 without motor or sensory deficit] PSYCHIATRIC: [normal mood and affect, thought process is clear and linear] Reexamination/Reevaluatio n unchanged Diagnosis: Chronic abdominal pain; Insomnia; Palliative care encounter; Refractory nausea and vomiting Problems No Problems Documented Smoking Status: Smoking Status Never (less than 100 in lifetime) Functional Status: Sensory Deficits: History of Falls: Mobility Assistance Prior to Admission: ADLs: Current Level of Assistance for Self-Care/Mobility: Cognitive Status: Allergies Reglan (Breathing difficulty) (Rash) Bentyl (Vomiting projectile) penicillin (Anaphylactic reaction) erythromycin (Anaphylactic reaction) Duricef (Anaphylactic reaction) ciprofloxacin (Anaphylactic reaction) Macrobid (Anaphylactic reaction) vancomycin (Anaphylactic reaction) clindamycin (Anaphylactic reaction) Toradol (Rash) Demerol (Hyperactive) metronidazole (Rash) (Dyspnea) Laboratory or Other Results This Visit (last charted value for your 03/29/2024 visit) Hematology 03/29/2024 2:08 PM WBC: 7.7 x10 RBC: 3.64 x10 Segs Man: 69 % -- Normal range between ( 49 and 79 ) Lymph Man: 27 % -- Normal range between ( 14 and 42 ) Monocyte Man: 1 % -- Normal range between ( 1 and 11 ) Eos Man: 1 % -- Normal range between ( 0 and 7 ) Basophil Man: 2 % -- Normal range between ( 0 and 3 ) Acanthocytes: Few MCV: 92.6 fL -- Normal range between ( 80.0 and 100.0 ) MCHC: 32.9 % -- Normal range between ( 31.0 and 37.0 ) Hct: 33.7 % -- Normal range between ( 36.0 and 46.0 ) Ovalocytes: Few Hypochromasia: Slight MCH: 30.5 pg -- Normal range between ( 27.0 and 35.0 ) Hgb: 11.1 g/dL -- Normal range between ( 12.0 and 16.0 ) Mean Platelet Volume: 9.9 fL -- Normal range between ( 6.7 and 10.6 ) Band Man: 0 % -- Normal range between ( 0 and 5 ) Platelet: 276 x10 RDW: 14.8 % -- Normal range between ( 11.6 and 14.8 ) Platelet estimate: Adequate Chemistry 03/29/2024 2:08 PM Creatinine Lvl: 2.02 mg/dL -- Normal range between ( 0.44 and 1.03 ) BUN: 18 mg/dL -- Normal range between ( 8 and 26 ) Glucose Lvl: 104 mg/dL -- Normal range between ( 70 and 99 ) Potassium Lvl: 3.8 mmol/L -- Normal range between ( 3.4 and 4.8 ) Sodium Lvl: 138 mmol/L -- Normal range between ( 133 and 142 ) Calcium Lvl: 8.7 mg/dL -- Normal range b (more content not included)... Normal [facility] ED Note-Physicianon 03-29-20 ED Note-Physician Chief Complaint was being seen for an outpatient endoscopy and began experiening hypertension History of Present Illness Patient is a 39 year old female presenting to the ED with hypertension. Patient reports that she was scheduled to have upper and lower GI scopes done with Dr. Pereira, and her BP was in the low 200's/120's. Patient is on blood pressure medications at home and did take them this morning before the procedures. Patient did not have her procedures done, and Dr. Pereira wanted the patient admitted. Patient has chronic nausea and states that her urine has been darker recently. Patient denies chest pain, trouble breathing, nausea, or vomiting. Patient has a history of DM. She denies smoking, drinking, or other drug use. Review of Systems As reviewed in the HPI. All other systems reviewed are negative or normal. Physical Exam CONSTITUTIONAL: [no apparent distress, well appearing] SKIN: [warm, dry, no jaundice, hives or petechiae] EYES: [pupils are equally round, extraocular movements intact without nystagmus, clear conjunctiva, non-icteric sclera] HENT: [normocephalic, atraumatic, moist mucus membranes, oropharynx clear without exudates] NECK: [Nontender and supple with no nuchal rigidity, no lymphadenopathy, full range of motion] PULMONARY: [clear to auscultation without wheezes, rhonchi, or rales, normal excursion, no accessory muscle use and no stridor] CARDIOVASCULAR: [regular rate, rhythm, normal S1 and S2. No appreciated murmurs. Strong radial pulses with intact distal perfusion] GASTROINTESTINAL: [soft, non-tender, non-distended, no palpable masses, no rebound or guarding] GENITOURINARY: [No costovertebral angle tenderness to palpation] LYMPHATICS: [no edema in lower extremities, no lymphadenopathy] MUSCULOSKELETAL: [Extremities are nontender to palpation and have no gross deformity, no edema, redness, or swelling] NEUROLOGIC: [alert, normal mentation and speech. Moves all extremities x 4 without motor or sensory deficit] PSYCHIATRIC: [normal mood and affect, thought process is clear and linear] Vitals & Measurements HR: 55 (Peripheral) RR: 20 BP: 214/129 HT: 173 cm WT: 69.5 kg (Dosing) Additional Vitals No qualifying data available. Procedure No qualifying data available. ASA Documentation Medical Decision Making Tashia Trevino scribing for and in the presence of Dr. Horne. Scribe Attestation: The information in this document, created by the medical technologist microbiology for me, accurately reflects the services I personally performed and the decisions made by me. Scribe Attestation: The information in this document, created by the medical technologist microbiology for me, accurately reflects the services I personally performed and the decisions made by me. This report has been created using voice recognition software. It may contain minor errors which are inherent in voice recognition technology. MEDICAL DECISION MAKING Number and Complexity of Problems Differential Diagnosis: _hypertension, electrolyte abnormality MDM Data External documents reviewed: _ My EKG Interpretation Rate: 52 Rhythm: [Sinus bradycardia with first degree AV block] WV/QRS: [.23/.12] QT: [.47] PRT axis: [-16] Interpretation: [Possible right ventricular conduction delay. ST elevation, probably early repolarization] ED EKG Interpretation by me. My CT interpretation: _ My X-ray interpretation: _ My Ultrasound interpretation: _ Decision rules/scores evaluated: _ Discussed with: _hospitalist Decision rules/scores evaluated: _ ? HEART Score: Not Completed ? PERC Rule: _ ? NEXUS C-spine Criteria: _ ? Albin Ankle Rule: _ ? Albin Knee Rule: _ ? Wells Criteria for DVT: _ ? Wells Criteria for PE: _ Discussed with: _hospitalist Treatment and Disposition ED Course: _EKG, labs, BP meds, hospitalist Shared decision making: _discussed plan - patient agreeable Code status: _not addressed Reexamination/Reevaluatio n unchanged Assessment/Plan HTN - Hypertension (Complaint of) Orders: Request for Admit Urinalysis with Culture, if indicated Refresh vitals and sections below: Problem List/Past Medical History Ongoing Anemia Chronic abdominal pain Chronic kidney disease, stage 3b Chronic nausea Chronic vomiting Diabetes mellitus-Type I Familial hypertriglyceridemia Hypertension Insomnia Nonalcoholic fatty liver Palliative care status Pancreatitis Refractory nausea and vomiting Rheumatoid arthritis Historical No qualifying data Procedure/Surgical History whipple REMOVAL OF TONSILS Spleen removal appendix removal pancreas removal gallbladder Esophagogastroduodenoscop y (09/08/2020) Esophagogastroduodenoscop y Polypectomy (08/06/2022) Esophagogastroduodenoscop y (09/05/2022) Esophagogastroduodenoscop y Control Bleeding (09/23/2022) Esophagogastroduodenoscop y (10/27/2022) Esophagogastroduodenoscop y (12/29/2022) Colonoscopy (12/29/2022) port insertion (07/2023) Esophagogastroduo (more content not included)... Normal [facility] Gastroenterology Consultatio non 03-29-2024 Gastroenterology Consultation Chief Complaint Anemia, GI bleed. Patient found to have uncontrolled hypertension and endoscopy unit. Reason for Consultation Anemia, GI bleed History of Present Illness 39-year-old woman with multiple medical comorbidities including familial hypertriglyceridemia complicated by chronic pancreatitis status post Whipple's procedure, hypertension, diabetes, fatty liver who presented to the outpatient endoscopy unit today for elective EGD and colonoscopy to evaluate for suspected iron deficiency anemia and intermittent episodes of overt GI bleeding. While in the preop area, patient was found to have uncontrolled hypertension with sustained systolic blood pressure at or greater than 200, diastolic blood pressure at or greater than 100. Denied chest pain, headache, nausea or vomiting, abdominal pain. Reported that she is on clonidine patch, amlodipine and carvedilol, however despite taking these medications of blood pressure was found to be persistently elevated. In a multidisciplinary manner consulting anesthesia team; it was decided to cancel today's endoscopic procedures and get blood pressure stabilized before we will reattempt. Of note patient has undergone 3-day prep and is very frustrated to the point that she is not willing to get the procedures completed if not done this time. Besides the uncontrolled hypertension, patient appears to be stable without any active symptoms from GI, cardiac, neuro or pulmonary standpoint. Review of Systems 10 point review of systems negative except as mentioned in today's HPI. Physical Exam Vitals & Measurements T: 36.6 ?C (Oral) HR: 51 (Peripheral) RR: 18 BP: 211/133 SpO2: 100% HT: 173 cm WT: 65 kg (Estimated) BMI: 21.72 General: Alert and oriented, well nourished, no acute distress Eye: tracks well, anicteric sclera HENT: Normocephalic, external ear normal, no discharge, moist oral mucosa Neck: Supple, non-tender, trachea midline Lungs: symmetrical expansion, nonlabored respirations Heart: regular rate, distal pulses intact Abdomen: soft, non-tender. Nondistended. Musculoskeletal: no deformity, normal ambulation, no swelling Skin: clean, dry, intact, no jaundice Neurologic: A&Ox3, no focal deficits Psychiatric: Cooperative, appropriate mood and affect Additional Vitals No qualifying data available. Assessment/Plan 1. Anemia 2. GI bleed 3. H/O Whipple procedure 4. Uncontrolled hypertension Plan is to admit patient and get blood pressure stabilized with the help of hospitalist consultation. Keep patient on clear liquids and n.p.o. after midnight the day. Check labs including CBC, CMP and transfuse PRBC to ensure hemoglobin greater than 7 g. Optimization of blood pressure?defer to hospitalist. Give 1 dose of Dulcolax today. Of note patient has completed 3-day prep. Continue home dose PPI. Tentatively plan for EGD and colonoscopy in a.m. after patient's blood pressure has been stabilized. In the interim if there is recurrence of overt GI bleeding or worsening anemia; please notify me so that I can reevaluate for urgent endoscopic procedures. Problem List/Past Medical History Ongoing Anemia Chronic abdominal pain Chronic kidney disease, stage 3b Chronic nausea Chronic vomiting Diabetes mellitus-Type I Familial hypertriglyceridemia GI bleed H/O Whipple procedure Hypertension Insomnia Nonalcoholic fatty liver Palliative care status Pancreatitis Refractory nausea and vomiting Rheumatoid arthritis Uncontrolled hypertension Historical No qualifying data Procedure/Surgical History whipple REMOVAL OF TONSILS Spleen removal appendix removal pancreas removal gallbladder Esophagogastroduodenoscop y (09/08/2020) Esophagogastroduodenoscop y Polypectomy (08/06/2022) Esophagogastroduodenoscop y (09/05/2022) Esophagogastroduodenoscop y Control Bleeding (09/23/2022) Esophagogastroduodenoscop y (10/27/2022) Esophagogastroduodenoscop y (12/29/2022) Colonoscopy (12/29/2022) port insertion (07/2023) Esophagogastroduodenoscop y (09/07/2023) Esophagogastroduodenoscop y (12/03/2023) Medications Inpatient albuterol 2.5 mg/3 mL (0.083%) inhalation solution, 2.5 mg= 3 mL, NEB, Once, PRN Betadine Gargle 0.5% solution, 10 mL, Oral, Once Normal Saline Flush 0.9% injectable solution, 10 mL, IV Push, As Indicated, PRN NS 1,000 mL, 1000 mL, IV Home Albuterol (Eqv-Ventolin HFA) 90 mcg/inh inhalation aerosol, 2 puffs, Oral, q6hr, PRN ALPRAZolam 1 mg oral tablet, 1 mg= 1 tabs, Oral, QID, PRN Amitiza 24 mcg oral capsule, 24 mcg= 1 caps, Oral, BID, 2 refills amLODIPine 10 mg oral tablet, 10 mg= 1 tabs, Oral, Daily carvedilol 6.25 mg oral tablet, 6.25 mg= 1 tabs, Oral, BID cloNIDine 0.2 mg/24 hr transdermal film, extended release, 2 patches, Topical, Creon 12,000 units oral delayed release capsule, 3 caps, Oral, AC docusate sodium 50 mg oral capsule, 50 mg= 1 caps, Oral, BID, Scheduled dronabinol 5 mg oral capsule, 5 mg= 1 caps, Oral, (more content not included)... Normal [facility] MRSA, PCRon 03-29-2024 LAB ONLY Result Called? No Normal [facility] Comment on above: Performed By: #### C [id number] #### [address] [address] Methicillin Resistant Staph aurus(MRSA) Not detected Normal Not Detected [facility] Comment on above: Result Comment: Mut ations or polymorphisms in primer or probe binding regions may affect detection of new or unknown MRSA variants resulting in a false negative. The [employer] Xpert MRSA Assay is a qualitative in vitro diagnostic test designed for rapid detection of Methicillin-Resistant Staphylococcus aureus (MRSA) from nasal swabs in patients at risk for nasal colonization.The test utilizes automated real-time polymerase chain reaction (PCR) to detect MRSA DNA,because the detection of MRSA is dependent on the number of organisms present. A positive test result does not necessarily indicate the presence of viable organism. It is however,presumptive for the presence of MRSA.Test results might be affected by concurrent antibiotic therapy. Therefore, therapeutic success or failure cannot be assessed using this test because DNA might persist following antimicrobial therapy. Mutations or polymorphisms in primer or probe binding regions may affect detection of new or unknown MRSA variants resulting in a false negative result. Results from the Xpert MRSA Assay should be interpreted in conjunction with other laboratory and clinical data available to the clinician. Performed By: #### C [id number] #### [address] [address] POC Glucose Randomon 024 Glucose [Mass/Vol] 99 mg/dL Normal 70-99 [facility] Comment on above: Performed By: #### C [id number] #### [facility] [address] [place] [address] Glucose [Mass/Vol] 111 mg/dL High 70-99 [facility] Comment on above: Performed By: #### C BCI #### [facility] [address] [place] [address] Progress Note-Nurseon 2023 Progress Note-Nurse patient arrived to Endoscopy outpatient hypertensive BP 182/121 RN chief writer notified anesthesiologist Dr. Dickerson of hypertension. Dr. Dickerson reviewed patient chart, suggested patient go to ED to be managed and reschedule procedure. RN chief writer took patient to ED for continued care of hypertension. Electronically signed by Montez Tarango 03/29/24 13:23 EDT Normal [facility] Basic Metabolic Profon 03-16 Anion gap [Moles/Vol] 11 mmol/L Normal 9-16 [facility] Comment on above: Performed By: #### L IP, BMP, HCG, BH, LIVP, CDP ####[address] , [place] [id number] Lab Director: Patti Swanson MD BUN/CRE Ratio 15 Normal 9-20 [facility] Comment on above: Performed By: #### L IP, BMP, HCG, BH, LIVP, CDP ####[facility] [place] , [place] [id number] lab Director: Patti Swanson MD Calcium [Mass/Vol] 8.8 mg/dL Normal 8.6-10.4 [facility] Comment on above: Performed By: #### L IP, BMP, HCG, BH, LIVP, CDP ####[facility] [place] , [place] [id number] lab Director: Patti Swanson MD Chloride [Moles/Vol] 108 mmol/L High 98-107 [facility] Comment on above: Performed By: #### L IP, BMP, HCG, BH, LIVP, CDP ####[facility] [place] , [place] [id number] Lab Director: Patti Swanson MD CO2 [Moles/Vol] 18 mmol/L Low 20-31 [facility] Comment on above: Performed By: #### L IP, BMP, HCG, BH, LIVP, CDP ####[facility] [place] , [place] [id number] Lab Director: Patti Swanson MD Creatinine [Mass/Vol] 2.1 mg/dL High 0.50-0.90 [facility] Comment on above: Performed By: #### L IP, BMP, HCG, BH, LIVP, CDP ####[facility] [place] , [place] [id number] Lab Director: Patti Swanson MD GFR/1.73 sq M.predicted among non-blacks MDRD (S/P/Bld) [Vol rate/Area] 30 mL/min/{1.73_m2} Low >60 [facility] Comment on above: Result Comment: These results are not intended for use in patients <18 years of age. eGFR results are calculated without a race factor using the 2020 CKD-EPI equation. Careful clinical correlation is recommended, particularly when comparing to results calculated using previous equations. The CKD-EPI equation is less accurate in patients with extremes of muscle mass, extra-renal metabolism of creatine, excessive creatine ingestion, or following therapy that affects renal tubular secretion. Performed By: #### L IP, BMP, HCG, BH, LIVP, CDP ####[facility] [place] , [place] [id number] Lab Director: Patti Swanson MD Glucose [Mass/Vol] 175 mg/dL High 74-99 [facility] Comment on above: Performed By: #### L IP, BMP, HCG, BH, LIVP, CDP ####[facility] [place] , [place] [address] Lab Director: Patti Swanson MD Potassium [Moles/Vol] 3.9 mmol/L Normal 3.7-5.3 [facility] Comment on above: Performed By: #### L IP, BMP, HCG, BH, LIVP, CDP ####[facility] [place] , [place] [id number] Lab Director: Patti Swanson MD Sodium [Moles/Vol] 137 mmol/L Normal 136-145 [facility] Comment on above: Performed By: #### L IP, BMP, HCG, BH, LIVP, CDP ####[facility] [place] , [place] [id number] lab Director: Patti Swanson MD Urea nitrogen [Mass/Vol] 32 mg/dL High 6-20 [facility] Comment on above: Performed By: #### L IP, BMP, HCG, BH, LIVP, CDP ####[address] , [place] [address] Lab Director: Patti Swanson MD Beta Hydroxybutyrateon 03-16 Beta Hydroxybutyrate 0.11 mmol/L Normal 0.02-0.27 [facility] Comment on above: Performed By: #### L IP, BMP, HCG, BH, LIVP, CDP ####[facility] [place] , [place] [address] Lab Director: Patti Swanson MD CBC with Diffon 03-16-2024 Abs. Basophil 0.07 k/uL Normal 0.00-0.20 [facility] Comment on above: Performed By: #### L ACTIC #### [facility] [facility] [address] [place], [place] [id number] Vocational Placement Specialist: Patti Swanson MD Abs.Imm.Granulocyte <0.03 Normal 0.00-0.30 [facility] Comment on above: Performed By: #### L ACTIC #### [facility] [address] [place], [facility]83 Vocational Placement Specialist: Patti Swanson MD Abs.Neutrophil (Seg) 5.20 k/uL Normal 1.50-8.10 [facility] Comment on above: Performed By: #### L ACTIC #### [address] [place], [place] [address] Vocational Placement Specialist: Patti Swanson MD Basophils/100 WBC (Bld) 1 % Normal 0-2 [facility] Comment on above: Performed By: #### L ACTIC #### [address] [place], [facility]83 Vocational Placement Specialist: Patti Swanson MD Eosinophils (Bld) [#/Vol] 0.06 10*3/uL Normal 0.00-0.44 [facility] Comment on above: Performed By: #### L ACTIC #### [address] [place], [facility]83 Vocational Placement Specialist: Patti Swanson MD Eosinophils/100 WBC (Bld) 1 % Normal 1-4 [facility] Comment on above: Performed By: #### L ACTIC #### [address] [place], [facility]83 Vocational Placement Specialist: Patti Swanson MD Erythrocyte distribution width (RBC) [Ratio] 14.2 % Normal 11.8-14.4 [facility] Comment on above: Performed By: #### L ACTIC #### [address] [place], [facility]83 Vocational Placement Specialist: Patti Swanson MD Hematocrit (Bld) [Volume fraction] 34.5 % [place] 36.3-47.1 [facility] Comment on above: Performed By: #### L ACTIC #### [address] [place], [facility]83 Vocational Placement Specialist: Patti Swanson MD Hemoglobin (Bld) [Mass/Vol] 10.6 g/dL [place] 11.9-15.1 [facility] Comment on above: Performed By: #### L ACTIC #### [facility] [address] [place] [address] [place]. [place], [place] [id number] Vocational Placement Specialist: Patti Swanson MD Immature granulocytes/100 WBC (Bld) 0 % Normal 0 [facility] Comment on above: Performed By: #### L ACTIC #### [address] [place], [place] [address] Vocational Placement Specialist: Patti Swanson MD Lymphocytes (Bld) [#/Vol] 2.00 10*3/uL Normal 1.10-3.70 [facility] Comment on above: Performed By: #### L ACTIC #### [address] [place], [facility]83 Vocational Placement Specialist: Patti Swanson MD Lymphocytes/100 WBC (Bld) 24 % Normal 24-43 [facility] Comment on above: Performed By: #### L ACTIC #### [address] [place], [place] [id number] Vocational Placement Specialist: Patti Swanson MD MCH (RBC) [Entitic mass] 29.8 pg Normal 25.2-33.5 [facility] Comment on above: Performed By: #### L ACTIC #### [facility] [address] [place] [address] [place]. [place], [place] [id number] Vocational Placement Specialist: Patti Swanson MD MCHC (RBC) [Mass/Vol] 30.7 g/dL Normal 28.4-34.8 [facility] Comment on above: Performed By: #### L ACTIC #### [address] [place], [place] [id number] Vocational Placement Specialist: Patti Swanson MD MCV (RBC) [Entitic vol] 96.9 fL Normal 82.6-102.9 [facility] Comment on above: Performed By: #### L ACTIC #### [facility] [address] [place], [place] [id number] Vocational Placement Specialist: Patti Swanson MD Monocytes (Bld) [#/Vol] 0.99 10*3/uL Normal 0.10-1.20 [facility] Comment on above: Performed By: #### L ACTIC #### [facility] [address] [place], [place] 788[address]83 Vocational Placement Specialist: Patti Swanson MD Monocytes/100 WBC (Bld) 12 % Normal 3-12 [facility] Comment on above: Performed By: #### L ACTIC #### [facility] [address] [place], [place] 9260383 Vocational Placement Specialist: Patti Swanson MD Neutrophil (Seg) 62 % Normal 36-65 [facility] Comment on above: Performed By: #### L ACTIC #### [facility] [address] [place], [place] [id number] Vocational Placement Specialist: Patti Swanson MD NRBC Automated 0.0 per 100 WBC Normal 0.0 [facility] Comment on above: Performed By: #### L ACTIC #### [address] [place], [place] 1847183 Vocational Placement Specialist: Patti Swanson MD Platelet mean volume (Bld) [Entitic vol] 10.8 fL Normal 8.1-13.5 [facility] Comment on above: Performed By: #### L ACTIC #### [facility] [address] [place] [address] [place] [address] Vocational Placement Specialist: Patti Swanson MD Platelets (Bld) [#/Vol] 343 10*3/uL Normal 138-453 [facility] Comment on above: Performed By: #### L ACTIC #### [address] [place], [place] 967[address]83 Vocational Placement Specialist: Patti Swanson MD RBC (Bld) [#/Vol] 3.56 10*6/uL [place] 3.95-5.11 [facility] Comment on above: Performed By: #### L ACTIC #### [facility] [address] [place], [place] [id number] Vocational Placement Specialist: Patti Swanson MD WBC (Bld) [#/Vol] 8.3 10*3/uL Normal 3.5-11.3 [facility] Comment on above: Performed By: #### L ACTIC #### [facility] [address] [place], [place] 3812183 Vocational Placement Specialist: Patti Swanson MD CT ABDOMEN PELVIS WO CONTRAS Ton 03-16-2024 CT ABDOMEN PELVIS WO CONTRAST EXAMINATION: CT OF THE ABDOMEN AND PELVIS WITHOUT CONTRAST 03/16/2024 4:00 am TECHNIQUE: CT of the abdomen and pelvis was performed without the administration of intravenous contrast. Multiplanar reformatted images are provided for review. Automated exposure control, iterative reconstruction, and/or weight based adjustment of the mA/kV was utilized to reduce the radiation dose to as low as reasonably achievable. COMPARISON: 03/02/2024 and 08/24/2023. HISTORY: ORDERING SYSTEM PROVIDED HISTORY: severe RUQ pain TECHNOLOGIST PROVIDED HISTORY: severe RUQ pain Decision Support Exception - unselect if not a suspected or confirmed emergency medical condition->Emergency Medical Condition (MA) Is the patient ?->No FINDINGS: Lower Chest: No focal consolidation seen in the visualized lung bases. Organs: Postoperative changes are seen from prior Whipple procedure. Pneumobilia is seen in the liver. Patient is status post cholecystectomy. Otherwise, no abnormality is seen of the unenhanced liver or adrenal glands. No evidence of a contour distorting renal mass. No evidence of hydronephrosis. GI/Bowel: A large amount of stool is seen within the majority of the colon. No evidence of bowel obstruction. No evidence of acute appendicitis. Pelvis: The urinary bladder and uterus demonstrate no acute abnormality. Peritoneum/Retroperitoneu m: The abdominal aorta is normal in caliber. There is no bulky retroperitoneal or mesenteric adenopathy. No free fluid or free air within the abdomen or pelvis. Bones/Soft Tissues: No acute osseous abnormality. IMPRESSION: 1. There is a large amount of stool is seen within majority of the colon. 2. Otherwise, no convincing acute abnormality within the unenhanced abdomen or pelvis. 3. Pneumobilia is seen within the liver similar in appearance to the CT from 08/24/2023. Interpreted by: Antonino Carcamo MD Signed by: Antonino Carcamo MD 03/16/24 Final result Normal [facility] Glucose, Whole Bloodon 03-16 Glucose [Mass/Vol] 84 mg/dL Normal 74-100 [facility] Glucose [Mass/Vol] 79 mg/dL Normal 74-100 [facility] HCG Screen, Bloodon 03-16-20 HCG Screen, Blood Negative Normal NEG [place] Comment on above: Result Comment: Spec imens with hCG levels near the threshold of the test (25 mIU/mL) may give a negative or indeterminate result. In such cases, another test should be performed with a new specimen in 48-72 hours. If early is suspected clinically in this setting, correlation with quantitative serum b-hCG level is suggested. [facility] has confirmed the use of plasma for this test. This has not been cleared or approved by the U.S. Food and Drug Administration. The FDA has determined that such clearance is not necessary. Performed By: #### L IP, BMP, HCG, BH, LIVP, CDP ####[facility] [place] [address] lab Director: Patti Swanson MD Lipaseon 03-16-2024 Lipase [Catalytic activity/Vol] 7 U/L [place] 13-60 [facility] Comment on above: Performed By: #### L IP, BMP, HCG, BH, LIVP, CDP ####[facility] [place] [address] lab Director: Patti Swanson MD Liver Profileon 03-16-2024 Albumin [Mass/Vol] 4.1 g/dL Normal 3.5-5.2 [facility] Comment on above: Performed By: #### L IP, BMP, HCG, BH, LIVP, CDP ####[facility] , [place] 6[address]83 Lab Director: Patti Swanson MD Albumin/Glob Ratio 1.4 Normal 1.0-2.5 [facility] Comment on above: Performed By: #### L IP, BMP, HCG, BH, LIVP, CDP ####[address] [place] [address] Lab Director: Patti Swanson MD Alkaline Phos 193 U/L High 35-104 [facility] Comment on above: Performed By: #### L IP, BMP, HCG, BH, LIVP, CDP ####[address] , [place] 9493183 Lab Director: Patti Swanson MD ALT [Catalytic activity/Vol] 23 U/L Normal 10-35 [facility] Comment on above: Performed By: #### L IP, BMP, HCG, BH, LIVP, CDP ####[address] [place] [address] Lab Director: Patti Swanson MD AST [Catalytic activity/Vol] 28 U/L Normal 10-35 [facility] Comment on above: Performed By: #### L IP, BMP, HCG, BH, LIVP, CDP ####[address] [place] [address] Lab Director: Patti Swanson MD Bilirubin [Mass/Vol] mg/dL Normal 0.00-1.20 [facility] Comment on above: Performed By: #### L IP, BMP, HCG, BH, LIVP, CDP ####[address] , [place] 3088483 Lab Director: Patti Swanson MD Bilirubin, Indirect Can not be calculated Normal 0.0-1 .0 [facility] Comment on above: Performed By: #### L IP, BMP, HCG, BH, LIVP, CDP ####[facility] , [place] [address]83 [facility] Director: Patti Swanson MD Bilirubin.indirect [Mass/Vol] mg/dL Normal 0.00-0.30 [facility] Comment on above: Performed By: #### L IP, BMP, HCG, BH, LIVP, CDP ####[facility] , [place] [id number] [facility] Director: Patti Swanson MD Protein [Mass/Vol] 7.0 g/dL Normal 6.6-8.7 [facility] Comment on above: Performed By: #### L IP, BMP, HCG, BH, LIVP, CDP ####[facility] , [place] 268[address]83 [facility] Director: Patti Swanson MD UA w/Reflex Cultureon 2023 Bilirubin, SemiQt,Ur Negative Normal NEG [facility] Comment on above: Performed By: #### L ACTIC #### [facility] [address] [place], [place] [address]83 Vocational Placement Specialist: Patti Swanson MD Blood, Urine Negative Normal NEG [facility] Comment on above: Performed By: #### L ACTIC #### [facility] [address] [place], [place] [address] Vocational Placement Specialist: Patti Swanson MD Clarity (U) Clear Normal CLEAR [facility] Comment on above: Performed By: #### L ACTIC #### [facility] [address] [place], [place] [address]83 Vocational Placement Specialist: Patti Swanson MD Color (U) Yellow Normal YEL [facility] Comment on above: Performed By: #### L ACTIC #### [facility] [address] [place], [place] [address]83 Vocational Placement Specialist: Patti Swanson MD Glucose Ql (U) TRACE Abnormal NEG [facility] in Hospital Comment on above: Performed By: #### L ACTIC #### [facility] [address] [place] [address] [place], [place] 86[address]83 Vocational Placement Specialist: Patti Swanson MD Ketones Ql (U) Negative Normal NEG [facility] in Hospital Comment on above: Performed By: #### L ACTIC #### [facility] [address] [place] [address] [place]. [place], [place] [address]326[address] Vocational Placement Specialist: Patti Swanson MD Leukocyte esterase Test strip Ql (U) Negative Normal NEG [facility] Comment on above: Performed By: #### L ACTIC #### [address] [place], [place] [address] Vocational Placement Specialist: Patti Swanson MD Nitrite,Ur Negative Normal NEG [facility] Comment on above: Performed By: #### L ACTIC #### [facility] [address] [place] [address] [place]. [place], [place] 77[address]183 Vocational Placement Specialist: Patti Swanson MD PH,Ur 6.0 Normal 5.0-9.0 [facility] Comment on above: Performed By: #### L ACTIC #### [address] [place], [place] [address]83 Vocational Placement Specialist: Patti Swanson MD Protein Ql (U) Negative Normal NEG [facility] Comment on above: Performed By: #### L ACTIC #### [facility] [address] [place] [address] [place]. [place], [place] [address]28783 Vocational Placement Specialist: Patti Swanson MD Spec. Kitz[place],Ur 1.010 Normal 1.010-1.02 0 [facility] Comment on above: Performed By: #### L ACTIC #### [facility] [address] [place] [address] [place]. [place], [place] 1688783 Vocational Placement Specialist: Patti Swanson MD Urobilinogen,Ur Normal Normal 0.0-1.0 [facility] Comment on above: Performed By: #### L ACTIC #### [facility] [address] [place] [address] Vocational Placement Specialist: Patti Swanson MD Urinalysis,Microon 4 Epithelial cells LM Ql (Urine sed) None Normal 0-25 [facility] Comment on above: Performed By: #### L ACTIC #### [facility] [address] [place] [address] Vocational Placement Specialist: Patti Swanson MD Urine RBC's None Normal 0-2 [facility] Comment on above: Performed By: #### L ACTIC #### [facility] [address] [place] [address] [place] [address] Vocational Placement Specialist: Patti Swanson MD Urine WBC's None Normal 0-5 [facility] Comment on above: Performed By: #### L ACTIC #### [facility] [address] [place] [address] [place], [place] 855[address]83 Vocational Placement Specialist: Patti Swanson MD Venous Blood Gaseson 024 [place] Test NOT APPLICABLE Normal [facility] Comment on above: Performed By: #### V BG #### [facility] [address] [place] [address] [place] [address] Vocational Placement Specialist: Patti Swanson MD Body Temp. 37.0 [facility] Comment on above: Performed By: #### V BG #### [facility] [address] [place] [address] [place] [address] Vocational Placement Specialist: Patti Swanson MD FIO2 21 [facility] Comment on above: Performed By: #### V BG #### [facility] [address] [place] [address] [place], [place] 1168883 Vocational Placement Specialist: Patti Swanson MD HCO3 (Bld) [Moles/Vol] 18.2 mmol/L [place] 24.0-30.[address] [facility] Comment on above: Performed By: #### V BG #### [facility] [address] [place], [place] 6[address]83 Vocational Placement Specialist: Patti Swanson MD Negative Base Excess 7.5 mmol/L High 0.0-2.0 [facility] Comment on above: Performed By: #### V BG #### [facility] [address] [place], [place] 336[address]83 Vocational Placement Specialist: Patti Swanson MD Oxygen saturation in Blood 66.9 % Normal 60.0-85.0 [facility] Comment on above: Performed By: #### V BG #### [facility] [address] [place], [place] 186[address]83 Vocational Placement Specialist: Patti Swanson MD pCO2 37.5 mm Hg Low 39-55 [facility] Comment on above: Performed By: #### V BG #### [facility] [address] [place], [place] [address]83 Vocational Placement Specialist: Patti Swanson MD Pco2 Adj'd for Temp. 37.5 mmHg Low 39.0-55.0 [facility] Comment on above: Performed By: #### V BG #### [facility] [address] [place], [place] 6798483 Vocational Placement Specialist: Patti Swanson MD pH (Bld) 7.303 [pH] Low 7.32-7.42 [facility] Comment on above: Performed By: #### V BG #### [facility] [address] [place], [place] [address] Vocational Placement Specialist: Patti Swanson MD pH Adjst'd for Temp. 7.303 Low 7.320-7 .42 0 [facility] Comment on above: Performed By: #### V BG #### [facility] [address] [place] [address] Vocational Placement Specialist: Patti Swanson MD pO2 37.9 mm Hg Normal 30.0-50.0 [facility] Comment on above: Performed By: #### V BG #### [facility] [address] [place] [address] Vocational Placement Specialist: Patti Swanson MD pO2 Adj'd for Temp. 37.9 mmHg Normal 30.0-50.0 [facility] Comment on above: Performed By: #### V BG #### [facility] [address] [place], [place] 720[address]83 Vocational Placement Specialist: Patti Swanson MD US THYROIDon 03-10-2024 US THYROID US THYROID US THYROID: 03/09/2024 PROVIDED HISTORY: * 39 years old Female * Thyroid nodule COMPARISON: Ultrasound. Thyroid 02/21/2015, CT neck 04/06/2023 TECHNIQUE: Real time sonographic evaluation of the thyroid gland performed. FINDINGS: Thyroid size: Normal Right thyroid lobe measures: 4.3 x 1.5 x 1.5 cm Left thyroid lobe measures: 5.9 x 1.9 x 1.6 cm Isthmus measures: 0.2 cm Overall thyroid texture: Heterogenous Inferior left thyroid lobe nodule measuring approximately 3.3 x 2.3 x 2.1 cm, which measured up to 2.3 cm on 02/21/2015, TR3. IMPRESSION: Enlarging left thyroid lobe nodule (3.3 cm versus 2.3 cm in 2015). FNA is recommended by ACR TI RADS criteria, though given slow rate of growth consideration may be given to one-year sonographic follow-up, as clinically warranted. Gelysler FN, Santosh WD, Angel EG, et al. ACR Thyroid Imaging, Reporting and Data System (TI-RADS): White Paper of the ACR TI-RADS Committee. J Am Bernie Radiol 2017;14:587-595. Finalized by Graciela Martínez MD on 03/10/2024 11:20 AM Normal [facility] AMA M2-Mayoon 03-06-2024 AMA Ab Screen-Lee <0.1 Normal <0.1 (Negative) [facility] Comment on above: Result Comment: Test Performed by: [facility] [address] [place] [address] Vocational Placement Specialist: Kristen Samayoa Ph.D.; CLIA# [id number] Performed By: #### C [id number] #### [address] [address] .eGFRon 03-05-2024 Estimated GFR 27 mL/min/1.73m? Low >=60 [facility] Comment on above: Result Comment: [facility] Laboratories have implemented the eGFR calculation approach that does not have a coefficient for race and that conforms to the NKF-ASN Task Force Recommendations. Stages of Chronic Kidney Disease GFR Stage 3a Mild to moderate loss of kidney function 59 to 45 Stage 3b Moderate to severe loss of kidney function 44 to 33 Stage 4 Severe loss of kidney function 29 to 15 Stage 5 Kidney failure Less than 15 GFR calculated using the CKD-Epi Creatinine Equation (2020): eGFR = 142 X min(SCr/?, 1)? X max(SCr /?, 1)-1.200 X 0.9938Age X 1.012 [if female] Abbreviations/Units: eGFR (estimated glomerular filtration rate) = mL/min/1.73 m2 SCr (standardized serum creatinine) = mg/dL ? = 0.7 (females) or 0.9 (males) ? = -0.241 (females) or -0.302 (males) min = indicates the minimum of SCr/? or 1 max = indicates the maximum of SCr/? or 1 Age = years Performed By: #### H GBHCT #### [address] [address] Estimated GFR 24 mL/min/1.73m? Low >=60 [facility] Comment on above: Result Comment: [facility] Laboratories have implemented the eGFR calculation approach that does not have a coefficient for race and that conforms to the NKF-ASN Task Force Recommendations. Stages of Chronic Kidney Disease GFR Stage 3a Mild to moderate loss of kidney function 59 to 45 Stage 3b Moderate to severe loss of kidney function 44 to 33 Stage 4 Severe loss of kidney function 29 to 15 Stage 5 Kidney failure Less than 15 GFR calculated using the CKD-Epi Creatinine Equation (2020): eGFR = 142 X min(SCr/?, 1)? X max(SCr /?, 1)-1.200 X 0.9938Age X 1.012 [if female] Abbreviations/Units: eGFR (estimated glomerular filtration rate) = mL/min/1.73 m2 SCr (standardized serum creatinine) = mg/dL ? = 0.7 (females) or 0.9 (males) ? = -0.241 (females) or -0.302 (males) min = indicates the minimum of SCr/? or 1 max = indicates the maximum of SCr/? or 1 Age = years Performed By: #### C BC #### [address] [address] Basic Metabolic Profileon Anion gap [Moles/Vol] 8 mmol/L Normal 4-12 [facility] Comment on above: Performed By: #### C [id number] #### [address] [address] Calcium [Mass/Vol] 8.2 mg/dL Low 8.5-10.3 [facility] Comment on above: Performed By: #### C [id number] #### [address] [address] Chloride [Moles/Vol] 106 mmol/L Normal 98-110 [facility] Comment on above: Performed By: #### C [id number] #### [address] [address] CO2 [Moles/Vol] 22 mmol/L Normal 22-32 [facility] Comment on above: Performed By: #### C [id number] #### [address] [address] Creatinine [Mass/Vol] 2.34 mg/dL High 0.44-1.03 [facility] Comment on above: Performed By: #### C [id number] #### [address] [address] Glucose [Mass/Vol] 172 mg/dL High 70-99 [facility] Comment on above: Performed By: #### C [id number] #### [address] [address] Potassium [Moles/Vol] 4.3 mmol/L Normal 3.4-4.8 [facility] Comment on above: Performed By: #### C [id number] #### [address] [address] Sodium [Moles/Vol] 136 mmol/L Normal 133-142 [facility] Comment on above: Performed By: #### C [id number] #### [address] [address] Urea nitrogen [Mass/Vol] 33 mg/dL High 8- [facility] Comment on above: Performed By: #### C [id number] #### [address] [address] Urea nitrogen/Creatinine [Mass ratio] 14.1 mg/mg Normal 10.0-20.0 [facility] Comment on above: Performed By: #### C [id number] #### [address] [address] CBCon 03-05-2024 Erythrocyte distribution width (RBC) [Ratio] 14.4 % Normal 11.6-14.8 [facility] Comment on above: Performed By: #### C BCI #### [address] [address] Hematocrit (Bld) [Volume fraction] 29.8 % Low 36.0-46.0 [facility] Comment on above: Performed By: #### C BCI #### [address] [address] Hemoglobin (Bld) [Mass/Vol] 9.2 g/dL Low 12.0-16.0 [facility] Comment on above: Performed By: #### C BCI #### [address] [address] MCH (RBC) [Entitic mass] 29.3 pg Normal 27.0-35.0 [facility] Comment on above: Performed By: #### C BCI #### [address] [address] MCHC 31.0 % Normal 31.0-37.0 [facility] Comment on above: Performed By: #### C BCI #### [address] [address] MCV (RBC) [Entitic vol] 94.4 fL Normal 80.0-100.0 [facility] Comment on above: Performed By: #### C BCI #### [address] [address] Platelet 252 x10*3/mcL Normal 150-450 [facility] Comment on above: Performed By: #### C BCI #### [address] [address] Platelet mean volume (Bld) [Entitic vol] 8.8 fL Normal 6.7-10.6 [facility] Comment on above: Performed By: #### C BCI #### [address] [address] RBC 3.15 x10*6/mcL Low 3.80-5.20 [facility] Comment on above: Performed By: #### C BCI #### [address] [address] WBC 10.5 x10*3/mcL Normal 4.5-11.0 [facility] Comment on above: Performed By: #### C BCI #### [address] [address] CBC w/ Diffon 03-05-2024 Erythrocyte distribution width (RBC) [Ratio] 14.5 % Normal 11.6-14.8 [facility] Comment on above: Performed By: #### C [id number] #### [address] [address] Hematocrit (Bld) [Volume fraction] 29.7 % Low 36.0-46.0 [facility] Comment on above: Performed By: #### C [id number] #### [address] [address] Hemoglobin (Bld) [Mass/Vol] 9.4 g/dL Low 12.0-16.0 [facility] Comment on above: Performed By: #### C [id number] #### [address] [address] MCH (RBC) [Entitic mass] 30.1 pg Normal 27.0-35.0 [facility] Comment on above: Performed By: #### C [id number] #### [address] [address] MCHC 31.6 % Normal 31.0-37.0 [facility] Comment on above: Performed By: #### C [id number] #### [address] [address] MCV (RBC) [Entitic vol] 95.1 fL Normal 80.0-100.0 [facility] Comment on above: Performed By: #### C [id number] #### [address] [address] Platelet 246 x10*3/mcL Normal 150-450 [facility] Comment on above: Performed By: #### C [id number] #### [address] [address] Platelet mean volume (Bld) [Entitic vol] 8.9 fL Normal 6.7-10.6 [facility] Comment on above: Performed By: #### C D:[id number] #### [address] [address] RBC 3.13 x10*6/mcL Low 3.80-5.20 [facility] Comment on above: Performed By: #### C [id number] #### [address] [address] WBC 10.9 x10*3/mcL Normal 4.5-11.0 [facility] Comment on above: Performed By: #### C D:[id number] #### [address] [address] CMPon 03-05-2024 Albumin [Mass/Vol] 3.4 g/dL Normal 3.2-4.9 [facility] Comment on above: Performed By: #### C D:[id number] #### [address] [address] Albumin/Globulin [Mass ratio] 1.2 {ratio} Normal 1.1-2.2 [facility] Comment on above: Performed By: #### C [id number] #### [address] [address] Alk Phos 276 IU/L High 32-91 [facility] Comment on above: Performed By: #### C D:[id number] #### [address] [address] ALT [Catalytic activity/Vol] 79 U/L High 14-54 [facility] Comment on above: Performed By: #### C D:[id number] #### [address] [address] Anion gap [Moles/Vol] 8 mmol/L Normal 4-12 [facility] Comment on above: Performed By: #### C D:[id number] #### [address] [address] AST [Catalytic activity/Vol] 28 U/L Normal 15-41 [facility] Comment on above: Performed By: #### C D:[id number] #### [address] [address] Bili Total 0.3 mg/dL Normal 0.3-1.2 [facility] Comment on above: Performed By: #### C D:[id number] #### [address] [address] Calcium [Mass/Vol] 8.4 mg/dL Low 8.5-10.3 [facility] Comment on above: Performed By: #### C D:[id number] #### [address] [address] Chloride [Moles/Vol] 105 mmol/L Normal 98-110 [facility] Comment on above: Performed By: #### C D:[id number] #### [address] [address] CO2 [Moles/Vol] 23 mmol/L Normal 22-32 [facility] Comment on above: Performed By: #### C D:[id number] #### [address] [address] Creatinine [Mass/Vol] 2.53 mg/dL High 0.44-1.03 [facility] Comment on above: Performed By: #### C D:[id number] #### [address] [address] Glucose [Mass/Vol] 192 mg/dL High 70-99 [facility] Comment on above: Performed By: #### C D:[id number] #### [address] [address] Potassium [Moles/Vol] 4.5 mmol/L Normal 3.4-4.8 [facility] Comment on above: Performed By: #### C D:[id number] #### [address] [address] Protein [Mass/Vol] 6.2 g/dL Low 6.5-8.1 [facility] Comment on above: Performed By: #### C D:[id number] #### [address] [address] Sodium [Moles/Vol] 136 mmol/L Normal 133-142 [facility] Comment on above: Performed By: #### C D:[id number] #### [address] [address] Urea nitrogen [Mass/Vol] 36 mg/dL High 8-26 [facility] Comment on above: Performed By: #### C D:[id number] #### [address] [address] Urea nitrogen/Creatinine [Mass ratio] 14.2 mg/mg Normal 10.0-20.0 [facility] Comment on above: Performed By: #### C D:[id number] #### [address] [address] Cerulo Lvl-[facility] 03-05-2024 Ceruloplasmin-Stilwell 24.3 mg/dL Normal 20.0 - 51.0 [facility] Comment on above: Result Comment: Test Performed by: [place] [address] Vocational Placement Specialist: Kristen Samayoa Ph.D.; CLIA# [id number] Performed By: #### C D:[id number] #### [address] [address] Diff Autoon 03-05-2024 Baso Absolute 0.1 x10*3/mcL Normal 0.0-0.2 [facility] Comment on above: Performed By: #### C D:[id number] #### [address] [address] Basophils/100 WBC (Bld) 1.0 % Normal 0.0-1.5 [facility] Comment on above: Performed By: #### C D:[id number] #### [address] [address] Eos Absolute 0.0 x10*3/mcL Normal 0.0-0.4 [facility] Comment on above: Performed By: #### C D:[id number] #### [address] [address] Eosinophils/100 WBC (Bld) 0.2 % Normal 0.0-5.4 [facility] Comment on above: Performed By: #### C D:[id number] #### [address] [place] [address] Lymph Absolute 6.5 x10*3/mcL High 1.0-4.8 [facility] Comment on above: Performed By: #### C D:[id number] #### [address] [address] Lymphocytes/100 WBC (Bld) 59.8 % High 27.2-40.8 [facility] Comment on above: Performed By: #### C D:[id number] #### [address] [address] Howell Absolute 0.3 x10*3/mcL Normal 0.1-1.1 [facility] Comment on above: Performed By: #### C D:[id number] #### [address] [address] Monocytes/100 WBC (Bld) 2.9 % Low 3.7-11.9 [facility] Comment on above: Performed By: #### C D:[id number] #### [address] [address] Neutro Absolute 4.0 x10*3/mcL Normal 1.8-7.7 [facility] Comment on above: Performed By: #### C D:[id number] #### [address] [address] Neutro Auto 36.1 % Low 47.2-70.8 [facility] Comment on above: Performed By: #### C D:[id number] #### [address] [address] Gastroenterology Progress No tyesha 03-05-2024 Gastroenterology Progress Note Subjective This is a 39 year-old woman who is being followed by GI for abnormal liver enzymes. Patient this morning reported no acute issues. Improvement in her pain. Patient denies any nausea, vomiting [last episode was yesterday evening after eating chocolate pudding] at this time. Patient denies any fever/chills, jaundice, hematemesis, melena or hematochezia. She reported good appetite. Review of Systems Constitutional : No weight loss, fever, chills. Weakness, fatigue + HEENT: Eyes: No visual loss, blurred vision, double vision or yellow sclerae. Ears, Nose, Throat: No hearing loss, sneezing, congestion, runny nose or sore throat. Skin: No rash or itching. Cardiovascular: No chest pain, chest pressure or chest discomfort. No palpitations or edema. Respiratory: No shortness of breath, cough or sputum. Neurological: No headache, dizziness, syncope, paralysis, ataxia, numbness or tingling in the extremities. No change in bowel or bladder control. Musculoskeletal : No muscle, back pain, joint pain or stiffness. Psychiatric: Cooperative, appropriate mood and affect. Objective Vitals & Measurements T: 36.9 ?C (Oral) HR: 68 (Peripheral) RR: 16 BP: 113/70 SpO2: 89% HT: 172 cm WT: 75.0 kg Additional Vitals No qualifying data available. Lab Results Microbiology - Current Encounter No qualifying data available. Diagnostic Results Magnetic Resonance Imaging MRI Abdomen w/ + w/o Contrast 03/03/24 09:41:27 IMPRESSION: 1. Mildly prominent common bile duct and intrahepatic bile ducts. Status post cholecystectomy. Findings could be chronic after cholecystectomy but need to be correlated with liver function tests and clinical status. 2. Very little pancreatic tissue suggesting either atrophy or postsurgical changes. 3. Moderate stool throughout the colon. The colon is mildly dilated. Correlate for fecal retention. 4. Tiny arterial phase focus of enhancement in the right lobe may be a perfusion anomaly. There is no abnormality on the other sequences. 5. Trace pleural effusions. 6. Mild motion degradation could impact sensitivity. Signed By: Sylvie STYLES, Antonino Greco Physical Exam Patient is hemodynamically stable and afebrile. HEENT: no scleral icterus Skin: no rashes noted Lungs: CTA B/L Cardiovascular system: S1,S2 heard ,Normal rate and rhythm, no rub Abdomen: Soft, mild RUQ/epigastric tenderness+, Bowels sounds+ HEALTH COMPANION: no focal deficits Medications Inpatient albuterol, 180 mcg= 2 puffs, Inhale, q6hr, PRN ALPRAZolam, 1 mg, Oral, QID, PRN amLODIPine, 5 mg, Oral, Daily calcium carbonate, 1000 mg, Oral, q6hr, PRN carvedilol, 6.25 mg, Oral, BID cloNIDine 0.2 mg/24 hr transdermal film, extended release, 2 patches, Topical, Creon 12,000 units oral delayed release capsule, 3 caps, Oral, AC Dextrose 10% in Water IV Piggyback, 125 mL, IV Piggyback, As Indicated, PRN diphenhydrAMINE, 25 mg, Oral, [id number] Times, PRN docusate sodium, 100 mg, Oral, BID dronabinol, 5 mg, Oral, BID glucagon, 1 mg, Subcutaneous, As Indicated, PRN heparin, 5000 units= 1 mL, Subcutaneous, [id number] Times hydrALAZINE, 10 mg= 0.5 mL, IV Push, q4hr, PRN HYDROmorphone, 2 mg, Oral, q1hr, PRN insulin aspart, 7 units, Subcutaneous, BID, PRN Insulin Pump (insulin lispro 100 units/mL), via pump, Subcutaneous, As Indicated MiraLax, 17 g= 1 EA, Oral, BID naloxone, 0.4 mg= 1 mL, IV Push, q2min, PRN Normal Saline Flush 0.9% injectable solution, 10 mL, IV Push, As Indicated, PRN Normal Saline Flush 0.9% injectable solution, 10 mL, IV Push, BID NS 1,000 mL, 1000 mL, IV OLANZapine, 5 mg, Oral, HS (at bedtime) omeprazole, 40 mg, Oral, BID ondansetron, 4 mg= 2 mL, IV Push, q4hr, PRN oxyCODONE, 10 mg, Oral, q4hr, PRN prochlorperazine, 10 mg= 2 mL, IV, Daily, PRN promethazine, 25 mg, Oral, [id number] Times, PRN QUEtiapine, 200 mg, Oral, HS (at bedtime) sertraline, 100 mg, Oral, HS (at bedtime) temazepam, 30 mg, Oral, HS (at bedtime), PRN tiZANidine, 8 mg, Oral, BID Zofran, 4 mg, Oral, q8hr, PRN zolpidem, 5 mg, Oral, HS (at bedtime) Assessment/Plan 1. Elevated LFTs Abnormal liver enzymes marked by, and transaminitis, cholestatic picture with last set of LFTs from 03/05/2024 showing progressive improvement with AST/ALT of 28/79, ALP of 276, TB of 0.3 CT A/P from outside institution [[facility]] showed features of constipation without any other acute pathology. Patient is known s/p Whipple surgery MRI MRCP done on 03/02/2024 showed mildly prominent CBD and intrahepatic bile ducts-s/p cholecystectomy; very little pancreatic tissue suggesting postsurgical changes; features of constipation. There is no clinical, imaging evidence of biliary obstruction at this time. Also it is of note that imaging studies do report presence of dilated CBD-however patient has pertinent history of Whipple surgery which is usually associated with a hepaticojejunostomy anatomy-will need to clarify the same with radiolo (more content not included)... Normal [facility] Inpatient Clinical Summaryon 03-05-2024 Inpatient Clinical Summary [address] [address] [address] [address] Clinical Summary Person Information Name: Pritesh Raza Age: 39 Years : 1985 Sex: Female PCP: Jalyn Holt DO Marital Status: Single Phone: PCP: Race: White Ethnicity: Not or Language: Greenlandic Visit Id: Visit Reason: elevated liver enzymes. intractable nausea and vomiting Speciality: Acuity: Enc Type: Inpatient Med Service: Medicine-General Arrival: 03/02/2024 16:57:06 Discharge: Dispo Type: Address: [address] [place] [id number] Diagnosis: 1:Elevated LFTs; 2:Nonalcoholic fatty liver; 3:Diabetes mellitus-Type I; 4:Chronic kidney disease, stage 3b; 5:Hypertension; 6:Familial hypertriglyceridemia; 7:Pancreatitis; 8:Insomnia; 9:Nausea and vomiting; Chronic abdominal pain; Palliative care encounter; Refractory nausea and vomiting Discharged To: Home Treatments: Devices/Equipment: Professional Skilled Services: Special Services and Community Resources: Mode of Discharge Transportation: Discharge Orders Allergies Reglan (Breathing difficulty) (Rash) Bentyl (Vomiting projectile) penicillin (Anaphylactic reaction) erythromycin (Anaphylactic reaction) Duricef (Anaphylactic reaction) ciprofloxacin (Anaphylactic reaction) Macrobid (Anaphylactic reaction) vancomycin (Anaphylactic reaction) clindamycin (Anaphylactic reaction) Toradol (Rash) Demerol (Hyperactive) metronidazole (Rash) (Dyspnea) Functional Status: Sensory Deficits: History of Falls: Mobility Assistance Prior to Admission: ADLs: Independent Gait: Steady Ambulation Assist: Assistive Device: None Special Orthopedic Devices: Current Level of Assistance for Self-Care/Mobility: Cognitive Status: Orientation: Orientation Assessment Oriented x 4 Level of Consciousness: Alert Characteristics of Speech: Clear Aspiration Risk: None Affect/Behavior: Flat Laboratory or Other Results This Visit (last charted value for your 03/02/2024 visit) Hematology 03/05/2024 5:14 AM WBC: 10.9 x10 RBC: 3.13 x10 Neutro Auto: 36.1 % -- Normal range between ( 47.2 and 70.8 ) Lymph Auto: 59.8 % -- Normal range between ( 27.2 and 40.8 ) Howell Auto: 2.9 % -- Normal range between ( 3.7 and 11.9 ) Eos Auto: 0.2 % -- Normal range between ( 0.0 and 5.4 ) Basophil Auto: 1.0 % -- Normal range between ( 0.0 and 1.5 ) Baso Absolute: 0.1 x10 MCV: 95.1 fL -- Normal range between ( 80.0 and 100.0 ) MCHC: 31.6 % -- Normal range between ( 31.0 and 37.0 ) Lymph Absolute: 6.5 x10 Hct: 29.7 % -- Normal range between ( 36.0 and 46.0 ) Howell Absolute: 0.3 x10 MCH: 30.1 pg -- Normal range between ( 27.0 and 35.0 ) Neutro Absolute: 4.0 x10 Hgb: 9.4 g/dL -- Normal range between ( 12.0 and 16.0 ) Mean Platelet Volume: 8.9 fL -- Normal range between ( 6.7 and 10.6 ) Platelet: 246 x10 Eos Absolute: 0.0 x10 RDW: 14.5 % -- Normal range between ( 11.6 and 14.8 ) 03/02/2024 6:57 PM Segs Man: 73 % -- Normal range between ( 49 and 79 ) Lymph Man: 22 % -- Normal range between ( 14 and 42 ) Monocyte Man: 5 % -- Normal range between ( 1 and 11 ) Eos Man: 0 % -- Normal range between ( 0 and 7 ) Basophil Man: 0 % -- Normal range between ( 0 and 3 ) Acanthocytes: Few RBC Morph: Normal Schistocytes: Few Ovalocytes: Few Hypochromasia: Slight Poikilocytes: Slight Band Man: 0 % -- Normal range between ( 0 and 5 ) Target Cell: Few Platelet estimate: Adequate Coagulation 03/02/2024 6:57 PM PT: 11.1 seconds -- Normal range between ( 9.2 and 12.0 ) INR: 1.1 ratio Urinalysis 03/03/2024 9:34 AM UA Color: Light-Yellow UA Urobilinogen: Normal mg/dL UA Bili: Negative UA Ketones: Negative mg/dL UA Leukocyte Esterase: Negative UA Nitrite: Negative UA Glucose: Normal mg/dL UA Bacteria: Present /HPF UA Protein: 10 mg/dL UA Blood: Negative UA Spec Grav: 1.015 -- Normal range between ( 1.003 and 1.035 ) UA pH: 5.0 UA Clarity: Clear UA Source: Clean Catch UA Mucus: Present /LPF UA WBC Quant: 0 /HPF -- Normal range between ( 0 and 5 ) UA RBC Quant: 0 /HPF -- Normal range between ( 0 and 5 ) UA Squepi Cells Quant: 6 /HPF -- Normal range between ( 0 and 29 ) Chemistry 03/05/2024 2:39 PM Creatinine Lvl: 2.34 mg/dL -- Normal range between ( 0.44 and 1.03 ) BUN: 33 mg/dL -- Normal range between ( 8 and 26 ) Glucose Lvl: 172 mg/dL -- Normal range between ( 70 and 99 ) Potassium Lvl: 4.3 mmol/L -- Normal range between ( 3.4 and 4.8 ) Sodium Lvl: 136 mmol/L -- Normal range between ( 133 and 142 ) Calcium Lvl: 8.2 mg/dL -- Normal range between ( 8.5 and 10.3 ) Chloride: 106 mmol/L -- Normal range between ( 98 and 110 ) CO2: 22 mmol/L -- Normal range between ( 22 and 32 ) Anion Gap: 8 -- Normal range between ( 4 and 12 ) Estimated GFR: 27 mL (more content not included)... Normal [facility] Magnesiumon 03-05-2024 Magnesium [Mass/Vol] 1.9 mg/dL Normal 1.7-2.4 [facility] Comment on above: Performed By: #### C D:[id number] #### [place] [id number] .eGFRon 03-04-2024 Estimated GFR 33 mL/min/1.73m? Low >=60 [facility] Comment on above: Result Comment: [facility] Laboratories have implemented the eGFR calculation approach that does not have a coefficient for race and that conforms to the NKF-ASN Task Force Recommendations. Stages of Chronic Kidney Disease GFR Stage 3a Mild to moderate loss of kidney function 59 to 45 Stage 3b Moderate to severe loss of kidney function 44 to 33 Stage 4 Severe loss of kidney function 29 to 15 Stage 5 Kidney failure Less than 15 GFR calculated using the CKD-Epi Creatinine Equation (2020): eGFR = 142 X min(SCr/?, 1)? X max(SCr /?, 1)-1.200 X 0.9938Age X 1.012 [if female] Abbreviations/Units: eGFR (estimated glomerular filtration rate) = mL/min/1.73 m2 SCr (standardized serum creatinine) = mg/dL ? = 0.7 (females) or 0.9 (males) ? = -0.241 (females) or -0.302 (males) min = indicates the minimum of SCr/? or 1 max = indicates the maximum of SCr/? or 1 Age = years Performed By: #### C D:[id number] #### [place] [id number] KIM Qfy-2-Vxzfrt 03-04-2024 KIM Cytoplasmic Pattern-Stilwell Not Reported Normal [facility] Comment on above: Performed By: #### H GBHCT #### [address] [address] KIM Lab Comment-Stilwell Not Reported Normal [facility] Comment on above: Performed By: #### H GBHCT #### [address] [address] KIM Pattern (2)-Lee Not Reported Normal [facility] Comment on above: Performed By: #### H GBHCT #### [address] [address] KIM Pattern-Lee Not Reported Normal [facility] Comment on above: Performed By: #### H GBHCT #### [address] [address] KIM Titer (2)-Lee Not Reported Normal [facility] Comment on above: Performed By: #### H GBHCT #### [address] [address] KIM Titer-Lee Not Reported Normal [facility] Comment on above: Performed By: #### H GBHCT #### [address] [address] HEp-2 KIM-Stilwell SEE BELOW Normal <1:80 (Negative) [facility] Comment on above: Result Comment: RESU LT: <1:80 (Negative) ADDITIONAL INFORMATION Method: Immunofluorescence using HEp-2 cellular substrate. Test Performed by: [facility] [place] [address] Vocational Placement Specialist: Kristen Samayoa Ph.D.; CLIA# [id number] Performed By: #### H GBHCT #### [address] [address] CBC w/ Diffon 03-04-2024 Erythrocyte distribution width (RBC) [Ratio] 14.2 % Normal 11.6-14.8 [facility] Comment on above: Performed By: #### H GBHCT #### [address] [address] Hematocrit (Bld) [Volume fraction] 31.2 % Low 36.0-46.0 [facility] Comment on above: Performed By: #### H GBHCT #### [address] [address] Hemoglobin (Bld) [Mass/Vol] 9.9 g/dL Low 12.0-16.0 [facility] Comment on above: Performed By: #### H GBHCT #### [address] [address] MCH (RBC) [Entitic mass] 29.7 pg Normal 27.0-35.0 [facility] Comment on above: Performed By: #### H GBHCT #### [address] [address] MCHC 31.7 % Normal 31.0-37.0 [facility] Comment on above: Performed By: #### H GBHCT #### [address] [address] MCV (RBC) [Entitic vol] 93.8 fL Normal 80.0-100.0 [facility] Comment on above: Performed By: #### H GBHCT #### [address] [address] Platelet 262 x10*3/mcL Normal 150-450 [facility] Comment on above: Performed By: #### H GBHCT #### [address] [address] Platelet mean volume (Bld) [Entitic vol] 9.1 fL Normal 6.7-10.6 [facility] Comment on above: Performed By: #### H GBHCT #### [address] [address] RBC 3.32 x10*6/mcL Low 3.80-5.20 [facility] Comment on above: Performed By: #### H GBHCT #### [address] [address] WBC 8.7 x10*3/mcL Normal 4.5-11.0 [facility] Comment on above: Performed By: #### H GBHCT #### [address] [place] [address] CMPon 03-04-2024 Albumin [Mass/Vol] 3.6 g/dL Normal 3.2-4.9 [facility] Comment on above: Performed By: #### C BC #### [address] [place] [address] Albumin/Globulin [Mass ratio] 1.1 {ratio} Normal 1.1-2.2 [facility] Comment on above: Performed By: #### C BC #### [address] [place] [address] Alk Phos 369 IU/L High 32-91 [facility] Comment on above: Performed By: #### C BC #### [address] [place] [address] ALT [Catalytic activity/Vol] 128 U/L High 14-54 [facility] Comment on above: Performed By: #### C BC #### [address] [place] [address] Anion gap [Moles/Vol] 8 mmol/L Normal 4-12 [facility] Comment on above: Performed By: #### C BC #### [address] [place] [address] AST [Catalytic activity/Vol] 57 U/L High 15-41 [facility] Comment on above: Performed By: #### C BC #### [address] [place] [address] Bili Total 0.4 mg/dL Normal 0.3-1.2 [facility] Comment on above: Performed By: #### C BC #### [address] [place] [address] Calcium [Mass/Vol] 8.9 mg/dL Normal 8.5-10.3 [facility] Comment on above: Performed By: #### C BC #### [address] [address] Chloride [Moles/Vol] 104 mmol/L Normal 98-110 [facility] Comment on above: Performed By: #### C BC #### [address] [address] CO2 [Moles/Vol] 24 mmol/L Normal 22-32 [facility] Comment on above: Performed By: #### C BC #### [address] [place] [address] Creatinine [Mass/Vol] 1.96 mg/dL High 0.44-1.03 [facility] Comment on above: Performed By: #### C BC #### [address] [address] Glucose [Mass/Vol] 188 mg/dL High 70-99 [facility] Comment on above: Performed By: #### C BC #### [address] [address] Potassium [Moles/Vol] 4.4 mmol/L Normal 3.4-4.8 [facility] Comment on above: Performed By: #### C BC #### [address] [address] Protein [Mass/Vol] 6.8 g/dL Normal 6.5-8.1 [facility] Comment on above: Performed By: #### C BC #### [address] [address] Sodium [Moles/Vol] 136 mmol/L Normal 133-142 [facility] Comment on above: Performed By: #### C BC #### [address] [place] [address] Urea nitrogen [Mass/Vol] 26 mg/dL Normal 8-26 [facility] Comment on above: Performed By: #### C BC #### [address] [place] [address] Urea nitrogen/Creatinine [Mass ratio] 13.3 mg/mg Normal 10.0-20.0 [facility] Comment on above: Performed By: #### C BC #### [address] [place] [address] Diff Autoon 03-04-2024 Baso Absolute 0.1 x10*3/mcL Normal 0.0-0.2 [facility] Comment on above: Performed By: #### C BCI #### [address] [address] Basophils/100 WBC (Bld) 0.8 % Normal 0.0-1.5 [facility] Comment on above: Performed By: #### C BCI #### [address] [address] Eos Absolute 0.0 x10*3/mcL Normal 0.0-0.4 [facility] Comment on above: Performed By: #### C BCI #### [address] [address] Eosinophils/100 WBC (Bld) 0.6 % Normal 0.0-5.4 [facility] Comment on above: Performed By: #### C BCI #### [address] [address] Lymph Absolute 2.7 x10*3/mcL Normal 1.0-4.8 [facility] Comment on above: Performed By: #### C BCI #### [address] [address] Lymphocytes/100 WBC (Bld) 31.0 % Normal 27.2-40.8 [facility] Comment on above: Performed By: #### C BCI #### [address] [address] Howell Absolute 0.6 x10*3/mcL Normal 0.1-1.1 [facility] Comment on above: Performed By: #### C BCI #### [address] [address] Monocytes/100 WBC (Bld) 6.7 % Normal 3.7-11.9 [facility] Comment on above: Performed By: #### C BCI #### [address] [address] Neutro Absolute 5.3 x10*3/mcL Normal 1.8-7.7 [facility] Comment on above: Performed By: #### C BCI #### [facility] [address] [place] [address] Neutro Auto 60.9 % Normal 47.2-70.8 [facility] Comment on above: Performed By: #### C BCI #### [facility] [address] [place] [address] Gastroenterology Progress No tyesha 03-04-2024 Gastroenterology Progress Note Subjective This is a 39 year-old woman who is being followed by GI for abnormal liver enzymes marked by mixed hepatocellular, cholestatic picture. Patient this morning feels better-reports improvement in her pain. Patient denies any nausea, vomiting [last episode was yesterday evening after eating chocolate pudding] at this time. Patient denies any fever/chills, jaundice, hematemesis, melena or hematochezia. she reported good appetite and wanted to advance her diet further Review of Systems Constitutional : No weight loss, fever, chills. Weakness, fatigue + HEENT: Eyes: No visual loss, blurred vision, double vision or yellow sclerae. Ears, Nose, Throat: No hearing loss, sneezing, congestion, runny nose or sore throat. Skin: No rash or itching. Cardiovascular: No chest pain, chest pressure or chest discomfort. No palpitations or edema. Respiratory: No shortness of breath, cough or sputum. Neurological: No headache, dizziness, syncope, paralysis, ataxia, numbness or tingling in the extremities. No change in bowel or bladder control. Musculoskeletal : No muscle, back pain, joint pain or stiffness. Psychiatric: Cooperative, appropriate mood and affect. Objective Vitals & Measurements T: 36.8 ?C (Oral) HR: 70 (Monitored) RR: 10 BP: 111/81 SpO2: 96% HT: 172 cm WT: 70 kg Additional Vitals No qualifying data available. Lab Results Microbiology - Current Encounter No qualifying data available. Diagnostic Results Magnetic Resonance Imaging MRI Abdomen w/ + w/o Contrast 03/03/24 09:41:27 IMPRESSION: 1. Mildly prominent common bile duct and intrahepatic bile ducts. Status post cholecystectomy. Findings could be chronic after cholecystectomy but need to be correlated with liver function tests and clinical status. 2. Very little pancreatic tissue suggesting either atrophy or postsurgical changes. 3. Moderate stool throughout the colon. The colon is mildly dilated. Correlate for fecal retention. 4. Tiny arterial phase focus of enhancement in the right lobe may be a perfusion anomaly. There is no abnormality on the other sequences. 5. Trace pleural effusions. 6. Mild motion degradation could impact sensitivity. Signed By: Sylvie STYLES, Antonino Greco Physical Exam Patient is hemodynamically stable and afebrile. HEENT: no scleral icterus Skin: no rashes noted Lungs: CTA B/L Cardiovascular system: S1,S2 heard ,Normal rate and rhythm, no rub Abdomen: Soft, mild RUQ/epigastric tenderness+, Bowels sounds+ HEALTH COMPANION: no focal deficits Medications Inpatient albuterol, 180 mcg= 2 puffs, Inhale, q6hr, PRN ALPRAZolam, 1 mg, Oral, QID, PRN amLODIPine, 10 mg, Oral, Daily calcium carbonate, 1000 mg, Oral, q6hr, PRN carvedilol, 6.25 mg, Oral, BID cloNIDine 0.2 mg/24 hr transdermal film, extended release, 2 patches, Topical, Creon 12,000 units oral delayed release capsule, 3 caps, Oral, AC Dextrose 10% in Water IV Piggyback, 125 mL, IV Piggyback, As Indicated, PRN Dilaudid, 1 mg= 1 mL, Subcutaneous, q3hr, PRN Dilaudid, 0.5 mg= 0.5 mL, IV Push, q3hr, PRN diphenhydrAMINE, 25 mg, Oral, [id number]-[id number] Times, PRN docusate sodium, 100 mg, Oral, BID dronabinol, 5 mg, Oral, BID glucagon, 1 mg, Subcutaneous, As Indicated, PRN heparin, 5000 units= 1 mL, Subcutaneous, g2ws-Xhoepfsb Times hydrALAZINE, 10 mg= 0.5 mL, IV Push, q4hr, PRN HYDROmorphone, 2 mg, Oral, q1hr, PRN insulin aspart, 7 units, Subcutaneous, BID, PRN Insulin Pump (insulin lispro 100 units/mL), via pump, Subcutaneous, As Indicated MiraLax, 17 g= 1 EA, Oral, BID naloxone, 0.4 mg= 1 mL, IV Push, q2min, PRN Normal Saline Flush 0.9% injectable solution, 10 mL, IV Push, As Indicated, PRN Normal Saline Flush 0.9% injectable solution, 10 mL, IV Push, BID NS 1,000 mL, 1000 mL, IV OLANZapine, 5 mg, Oral, HS (at bedtime) omeprazole, 40 mg, Oral, BID ondansetron, 4 mg= 2 mL, IV Push, q4hr, PRN oxyCODONE, 10 mg, Oral, q4hr, PRN prochlorperazine, 10 mg= 2 mL, IV, Daily, PRN promethazine, 25 mg, Oral, u2lt-Svrmijws Times, PRN QUEtiapine, 200 mg, Oral, HS (at bedtime) sertraline, 100 mg, Oral, HS (at bedtime) temazepam, 30 mg, Oral, HS (at bedtime), PRN tiZANidine, 8 mg, Oral, BID Zofran, 4 mg, Oral, q8hr, PRN zolpidem, 5 mg, Oral, HS (at bedtime) Assessment/Plan 1. Elevated LFTs Abnormal liver enzymes marked by, and transaminitis, cholestatic picture with last set of LFTs from 03/04/2024 showing progressive improvement with AST/ALT of 57/128, ALP of 369, TB of 0.4 CT A/P from outside institution [[facility]] showed features of constipation without any other acute pathology. Patient is known s/p Whipple surgery MRI MRCP done on 03/02/2024 showed mildly prominent CBD and intrahepatic bile ducts-s/p cholecystectomy; very little pancreatic tissue suggesting postsurgical changes; features of constipation. There is no clinical, imaging evidence of biliary obstruction at this time. Also it is of note that imaging studies do report presenc (more content not included)... Normal [facility] Hgb A1con 03-04-2024 Glucose [Mass/Vol] 180 mg/dL High 68-114 [facility] Comment on above: Result Comment: Math ematical Calc approx. The mean gluc equivalency of A1c Performed By: #### C [id number] #### [facility] [address] [place] [address] Hgb A1c 7.9 % A1c High 4.0-5.6 [facility] Comment on above: Result Comment: Refe rence Range: 4.0 - 5.6 % Normal 5.7 - 6.4 % Pre-Diabetes > 6.5 % Diabetes Performed By: #### C [id number] #### [address] [address] LKM 1 Ab,S-[facility] 03-04-2024 L-K Microsome 1 Ab,S-Lee <5.0 Normal <=20.0 (Negative) [facility] Comment on above: Result Comment: Test Performed by: [facility] [place] [address] Vocational Placement Specialist: Kristen Samayoa Ph.D.; CLIA# [id number] Performed By: #### C [id number] #### [place] [address] Magnesium 03-04-2024 Magnesium [Mass/Vol] 2.0 mg/dL Normal 1.7-2.4 [facility] Comment on above: Performed By: #### C [id number] #### [address] [address] SM Ab-[facility] 03-04-2024 SMA Screen-[place] Negative Normal Negative [facility] Comment on above: Result Comment: Nega tive: No further testing will be performed ADDITIONAL INFORMATION This test was developed and its performance characteristics determined by [facility] in a manner consistent with CLIA requirements. This test has not been cleared or approved by the U.S. Food and Drug Administration. Test Performed by: [facility] [place] [address] Vocational Placement Specialist: Kristen Samayoa Ph.D.; CLIA# [id number] Performed By: #### I GG #### [place] [address] .Fentanyl Scrn angela Santos,Uron 03-03-2024 Ur Fentanyl Scrn Negative Normal NEG <1.0 [facility] Comment on above: Performed By: #### C [id number] #### [place] [id number] Ur Fentanyl Scrn Qnt 0.68 ng/mL Normal <=0.99 [facility] Comment on above: Performed By: #### C [id number] #### [place] [id number] .UA Microscp Aon 03-03-2024 UA Bacteria Present Abnormal Absent [facility] Comment on above: Performed By: #### H GBHCT #### [place] [address] UA Mucus Present Normal Absent [facility] Comment on above: Performed By: #### H GBHCT #### [place] [id number] UA RBC Quant 0 /HPF Normal 0-5 [facility] Comment on above: Performed By: #### H GBHCT #### [place] [address] UA Squepi Cells Quant 6 /HPF Normal 0-29 [facility] Comment on above: Performed By: #### H GBHCT #### [place] [id number] UA WBC Quant 0 /HPF Normal 0-5 [facility] Comment on above: Performed By: #### H GBHCT #### [place] [id number] .eGFRon 03-03-2024 Estimated GFR 31 mL/min/1.73m? Low >=60 [facility] Comment on above: Result Comment: [facility] Laboratories have implemented the eGFR calculation approach that does not have a coefficient for race and that conforms to the NKF-ASN Task Force Recommendations. Stages of Chronic Kidney Disease GFR Stage 3a Mild to moderate loss of kidney function 59 to 45 Stage 3b Moderate to severe loss of kidney function 44 to 33 Stage 4 Severe loss of kidney function 29 to 15 Stage 5 Kidney failure Less than 15 GFR calculated using the CKD-Epi Creatinine Equation (2020): eGFR = 142 X min(SCr/?, 1)? X max(SCr /?, 1)-1.200 X 0.9938Age X 1.012 [if female] Abbreviations/Units: eGFR (estimated glomerular filtration rate) = mL/min/1.73 m2 SCr (standardized serum creatinine) = mg/dL ? = 0.7 (females) or 0.9 (males) ? = -0.241 (females) or -0.302 (males) min = indicates the minimum of SCr/? or 1 max = indicates the maximum of SCr/? or 1 Age = years Performed By: #### C [id number] #### [address] [address] Acetaminophen Lvlon 03-03-20 24 Acetaminoph Lvl <10.0 Low 10.0-30.0 [facility] Comment on above: Result Comment: Valu es >150 mcg/mL 4 hours post-ingestion, or >75 mcg/mL 8 hours post-ingestion, or >40 mcg/mL 12 hours post ingestion are considered toxic. Performed By: #### C [id number] #### [address] [address] CBCon 03-03-2024 Erythrocyte distribution width (RBC) [Ratio] 14.0 % Normal 11.6-14.8 [facility] Comment on above: Order Comment: port is not working, i missed x3 Performed By: #### C BCI #### [address] [address] Hematocrit (Bld) [Volume fraction] 33.2 % Low 36.0-46.0 [facility] Comment on above: Order Comment: port is not working, i missed x3 Performed By: #### C BCI #### [address] [address] Hemoglobin (Bld) [Mass/Vol] 10.4 g/dL Low 12.0-16.0 [facility] Comment on above: Order Comment: port is not working, i missed x3 Performed By: #### C BCI #### [address] [address] MCH (RBC) [Entitic mass] 29.6 pg Normal 27.0-35.0 [facility] Comment on above: Order Comment: port is not working, i missed x3 Performed By: #### C BCI #### [place] [id number] MCHC 31.3 % Normal 31.0-37.0 [facility] Comment on above: Order Comment: port is not working, i missed x3 Performed By: #### C BCI #### [place] [id number] MCV (RBC) [Entitic vol] 94.4 fL Normal 80.0-100.0 [facility] Comment on above: Order Comment: port is not working, i missed x3 Performed By: #### C BCI #### [place] [id number] Platelet 277 x10*3/mcL Normal 150-450 [facility] Comment on above: Order Comment: port is not working, i missed x3 Performed By: #### C BCI #### [address] [address] Platelet mean volume (Bld) [Entitic vol] 9.6 fL Normal 6.7-10.6 [facility] Comment on above: Order Comment: port is not working, i missed x3 Performed By: #### C BCI #### [address] [address] RBC 3.52 x10*6/mcL Low 3.80-5.20 [facility] Comment on above: Order Comment: port is not working, i missed x3 Performed By: #### C BCI #### [address] [address] WBC 11.1 x10*3/mcL High 4.5-11.0 [facility] Comment on above: Order Comment: port is not working, i missed x3 Performed By: #### C BCI #### [address] [address] CMPon 03-03-2024 Albumin [Mass/Vol] 4.0 g/dL Normal 3.2-4.9 [facility] Comment on above: Performed By: #### C [id number] #### [address] [address] Albumin/Globulin [Mass ratio] 1.2 {ratio} Normal 1.1-2.2 [facility] Comment on above: Performed By: #### C [id number] #### [address] [address] Alk Phos 440 IU/L High 32-91 [facility] Comment on above: Performed By: #### C [id number] #### [address] [address] ALT [Catalytic activity/Vol] 190 U/L High 14-54 [facility] Comment on above: Performed By: #### C [id number] #### [address] [address] Anion gap [Moles/Vol] 7 mmol/L Normal 4-12 [facility] Comment on above: Performed By: #### C [id number] #### [address] [address] AST [Catalytic activity/Vol] 106 U/L High 15-41 [facility] Comment on above: Performed By: #### C [id number] #### [address] [address] Bili Total 0.5 mg/dL Normal 0.3-1.2 [facility] Comment on above: Performed By: #### C [id number] #### [address] [address] Calcium [Mass/Vol] 9.1 mg/dL Normal 8.5-10.3 [facility] Comment on above: Performed By: #### C [id number] #### [address] [address] Chloride [Moles/Vol] 110 mmol/L Normal 98-110 [facility] Comment on above: Performed By: #### C [id number] #### [address] [address] CO2 [Moles/Vol] 22 mmol/L Normal 22-32 [facility] Comment on above: Performed By: #### C [id number] #### [address] [address] Creatinine [Mass/Vol] 2.06 mg/dL High 0.44-1.03 [facility] Comment on above: Performed By: #### C [id number] #### [address] [address] Glucose [Mass/Vol] 59 mg/dL Low 70-99 [facility] Comment on above: Performed By: #### C [id number] #### [address] [address] Potassium [Moles/Vol] 4.3 mmol/L Normal 3.4-4.8 [facility] Comment on above: Performed By: #### C [id number] #### [address] [address] Protein [Mass/Vol] 7.2 g/dL Normal 6.5-8.1 [facility] Comment on above: Performed By: #### C [id number] #### [address] [address] Sodium [Moles/Vol] 139 mmol/L Normal 133-142 [facility] Comment on above: Performed By: #### C [id number] #### [address] [address] Urea nitrogen [Mass/Vol] 25 mg/dL Normal 8-26 [facility] Comment on above: Performed By: #### C [id number] #### [address] [address] Urea nitrogen/Creatinine [Mass ratio] 12.1 mg/mg Normal 10.0-20.0 [facility] Comment on above: Performed By: #### C [id number] #### [address] [address] Diff Autoon 03-03-2024 Baso Absolute see comment Normal 0.0-0.2 [facility] Comment on above: Result Comment: Resu lts from automated WBC differential are inaccurate. Please refer to manual WBC differential for accurate information. Attention, Corrected Report The cause of this error was due to Tech error Notification: Leela Crowe Initial: ARF Date/Time: 03/03/2024 00:03:39 EDT Performed By: #### C [id number] #### [address] [address] Basophil Auto see comment Normal 0.0-1.5 [facility] Comment on above: Result Comment: Resu lts from automated WBC differential are inaccurate. Please refer to manual WBC differential for accurate information. Attention, Corrected Report The cause of this error was due to Tech error Notification: Leela Crowe Initial: ARF Date/Time: 03/03/2024 00:03:39 EDT Performed By: #### C [id number] #### [address] [address] Eos Absolute see comment Normal 0.0-0.4 [facility] Comment on above: Result Comment: Resu lts from automated WBC differential are inaccurate. Please refer to manual WBC differential for accurate information. Attention, Corrected Report The cause of this error was due to Tech error Notification: Leela Crowe Initial: ARF Date/Time: 03/03/2024 00:03:39 EDT Performed By: #### C [id number] #### [address] [address] Eos Auto see comment Normal 0.0-5.4 [facility] Comment on above: Result Comment: Resu lts from automated WBC differential are inaccurate. Please refer to manual WBC differential for accurate information. Attention, Corrected Report The cause of this error was due to Tech error Notification: Leela Crowe Initial: ARF Date/Time: 03/03/2024 00:03:39 EDT Performed By: #### C [id number] #### [address] [address] Lymph Absolute see comment Normal 1.0-4.8 [facility] Comment on above: Result Comment: Resu lts from automated WBC differential are inaccurate. Please refer to manual WBC differential for accurate information. Attention, Corrected Report The cause of this error was due to Tech error Notification: Leela Crowe Initial: ARF Date/Time: 03/03/2024 00:03:39 EDT Performed By: #### C [id number] #### [address] [address] Lymph Auto see coment Normal 27.2-40.8 [facility] Comment on above: Result Comment: Resu lts from automated WBC differential are inaccurate. Please refer to manual WBC differential for accurate information. Attention, Corrected Report The cause of this error was due to Tech error Notification: Leela Crowe Initial: ARF Date/Time: 03/03/2024 00:03:39 EDT Performed By: #### C [id number] #### [address] [address] Howell Absolute see comment Normal 0.1-1.1 [facility] Comment on above: Result Comment: Resu lts from automated WBC differential are inaccurate. Please refer to manual WBC differential for accurate information. Attention, Corrected Report The cause of this error was due to Tech error Notification: Leela Crowe Initial: ARF Date/Time: 03/03/2024 00:03:39 EDT Performed By: #### C [id number] #### [address] [address] Howell Auto see comment Normal 3.7-11.9 [facility] Comment on above: Result Comment: Resu lts from automated WBC differential are inaccurate. Please refer to manual WBC differential for accurate information. Attention, Corrected Report The cause of this error was due to Tech error Notification: Leela Crowe Initial: ARF Date/Time: 03/03/2024 00:03:39 EDT Performed By: #### C [id number] #### [address] [address] Neutro Absolute see comment Normal 1.8-7.7 [facility] Comment on above: Result Comment: Resu lts from automated WBC differential are inaccurate. Please refer to manual WBC differential for accurate information. Attention, Corrected Report The cause of this error was due to Tech error Notification: Leela Crowe Initial: ARF Date/Time: 03/03/2024 00:03:39 EDT Performed By: #### C [id number] #### [address] [address] Neutro Auto see comment Normal 47.2-70.8 [facility] Comment on above: Result Comment: Resu lts from automated WBC differential are inaccurate. Please refer to manual WBC differential for accurate information. Attention, Corrected Report The cause of this error was due to: Tech mistake Notification: Leela Crowe Initial: ARF Date/Time: 03/03/2024 00:01:49 EDT Attention, Corrected Report The cause of this error was due to Tech error Notification: Leela Crowe Initial: ARF Date/Time: 03/03/2024 00:03:39 EDT Performed By: #### C [id number] #### [address] [address] Ferritinon 03-03-2024 Ferritin Lvl 16.6 ng/mL Normal 11.0-306.8 [facility] Comment on above: Performed By: #### C #### [facility] [address] [place] [address] Gastroenterology Consultatio non 03-03-2024 Gastroenterology Consultation Chief Complaint Transfer from [facility] due to significantly elevated LFTs, follows with Dr. Fountain in the GI clinic Reason for Consultation Abnormal LFTs RUQ abdominal pain History of Present Illness This is a 39-year-old woman well-known to GI service who presented to the hospital with chief complaints of predominant RUQ cramping abdominal pain associated with multiple episodes of nausea, nonbloody vomiting. Patient states that the RUQ abdominal pain woke her up at 3 AM yesterday morning-reports the pain to be radiating to the back. Patient has known history of recurrent episodes of nausea, vomiting; multiple hospitalizations secondary to hematemesis. Patient also noted having chronic predominant epigastric/upper abdominal pain. Patient denies any fever/chills, sick contacts, travel history, hematemesis, melena or hematochezia Patient initially presented to the ED 8 [facility]- CT A/P at the time showed evidence of constipation but no other acute pathology. She was found to have abnormal LFTs with AST/ALT of 480/345, ALP of 691 Last set of laboratory studies done at [facility] showed stable Hb% of 10.8 g/dL, WBC of 11.4, platelets of 301; INR of 1.1; CMP with BUN/creatinine of 25/1.98, LFTs with AST/ALT of 195/252, ALP of 550. 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 Old records, imaging reviewed. Last EGD done on 12/03/2023 showed normal esophagus; gastric erythema and polyps; widely patent entero-enteral anastomosis; EGD done on 09/07/2023 showed gastric polyps; evidence of Whipple procedure with healthy looking anastomosis; healthy afferent and efferent jejunal limbs EGD done on 10/27/2022 showed few small sessile polyps in the gastric fundus, body suggestive of underlying fundic gland polyps; evidence of prior Whipple surgery with healthy looking anastomosis; no gross lesions were noted in the examined portion of the afferent or efferent jejunal loops. A push enteroscopy done on 12/29/2022 showed fundic land polyps; healthy looking gastrojejunal anastomosis; no gross lesions in the examined portion of the efferent of the efferent jejunal loops. Colonoscopy done on 12/29/2022 showed copious amounts of semisolid yellow stool in multiple segments of the colon-poor bowel preparation; no evidence of active ongoing overt GI bleeding at the time. Patient underwent EGD last on 09/23/2022 which showed evidence of the postprocedure, multiple gastric polyps, prior placed), multiple superficial oozing AVMs versus erosions with hemostasis achieved with a bipolar cautery probe. Gastroenteric anastomosis was healthy in appearance. There were normal-appearing efferent and afferent jejunal limbs. Prior EGD done on 09/05/2022 showed bleeding gastric erosions which were clipped; gastric polyps; normal gastric anastomosis EGD done on 08/06/2022 showed evidence of pylorus sparing Whipple's procedure multiple benign-appearing polyps; healthy-appearing gastric anastomosis with normal efferent and afferent jejunal limbs EGD from 09/08/2020 showed normal stomach with evidence of prior to procedure; LV anastomosis; normal-2019 Review of Systems Constitutional : No weight loss, fever, chills. Weakness, fatigue + HEENT: Eyes: No visual loss, blurred vision, double vision or yellow sclerae. Ears, Nose, Throat: No hearing loss, sneezing, congestion, runny nose or sore throat. Skin: No rash or itching. Cardiovascular: No chest pain, chest pressure or chest discomfort. No palpitations or edema. Respiratory: No shortness of breath, cough or sputum. Neurological: No headache, dizziness, syncope, paralysis, ataxia, numbness or tingling in the extremities. No change in bowel or bladder control. Musculoskeletal : No muscle, back pain, joint pain or stiffness. Psychiatric: Cooperative, appropriate mood and affect. Physical Exam Vitals & Measurements T: 36.6 ?C (Axillary) TMIN: 36.6 ?C (Axillary) TMAX: 36.9 ?C (Oral) HR: 57 (Monitored) RR: 10 BP: 148/102 SpO2: 100% HT: 172 cm WT: 70 kg Patient is hemodynamically stable and afebrile. HEENT: no scleral icterus Skin: no rashes noted Lungs: CTA B/L Cardiovascular system: S1,S2 heard ,Normal rate and rhythm, no rub Abdomen: Soft, diffuse abdominal tenderness-more pronounced in RUQ +, Bowels sounds+ HEALTH COMPANION: no focal deficits Assessment/Plan 1. Elevated LFTs Abnormal liver enzymes marked by, and transaminitis, cholestatic picture with last set of LFTs from 03/02/2024 showing AST/ALT of 195/252, ALP of 550, TB of 0.6. CT A/P from outside institution [[facility]] showed features of constipation without any other acute pathology. 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 Need to rule out other potential (more content not included)... Normal [facility] HAV Tot Abon 03-03-2024 Hep A Total Ab >2.70 Normal [facility] Comment on above: Performed By: #### H GBHCT #### [place] [address] Hep A Total Ab Interp Negative Normal Negative [facility] Comment on above: Result Comment: Samp le is negative for anti-HAV. Indicates that the individual has not been infected and is presumed not to be immune to HAV infection. Performed By: #### H GBHCT #### [place] [address] HBcAb IgMon 03-03-2024 Hep B Core IgM <0.10 Normal [facility] Comment on above: Performed By: #### C BC #### [place] [id number] Hep B Core IgM Interp Non-Reactive Normal Non-Re acti ve [facility] Comment on above: Performed By: #### C BC #### [place] [id number] Hep A IgMon 03-03-2024 Hep A IgM <0.10 Normal [facility] Comment on above: Performed By: #### C [id number] #### [place] [id number] Hep A IgM Interp Negative Normal Negative [facility] Comment on above: Performed By: #### C [id number] #### [address] [address] Hep Bs Abon 03-03-2024 Hep B Surface Antibody Interp Negative Normal [facility] Comment on above: Result Comment: Vanessa ent is considered to be not immune to infection. Performed By: #### C [id number] #### [address] [address] Hep Bs Ab <3.0 [facility] Comment on above: Performed By: #### C [id number] #### [address] [address] Hep Bs Agon 03-03-2024 Hep Bs Ag Interp Non-Reactive Normal Non-Reacti ve [facility] Comment on above: Performed By: #### C [id number] #### [address] [address] Hep C Ab w/reflex HCV RNA Qn t, PCRon 03-03-2024 Hep C IgG Interp Non-Reactive Normal Non-Reacti ve [facility] Comment on above: Performed By: #### C [id number] #### [address] [address] HepAcute Profon 03-03-2024 Hep A IgM <0.10 [facility] Comment on above: Performed By: #### I GG #### [address] [address] Hep A IgM Interp Negative Normal Negative [facility] Comment on above: Performed By: #### I GG #### [address] [address] Hep B Core IgM <0.10 [facility] Comment on above: Performed By: #### I GG #### [address] [address] Hep B Core IgM Interp Non-Reactive Normal Non-Re acti ve [facility] Comment on above: Performed By: #### I GG #### [facility] [address] [place] [address] Hep Bs Ag Interp Non-Reactive Normal Non-Reacti [facility] Comment on above: Performed By: #### I GG #### [facility] [address] [place] [address] Hep C IgG Interp Non-Reactive Normal Non-Reacti [facility] Comment on above: Performed By: #### I GG #### [facility] [address] [place] [address] Hepatitis Acute [facility] 03-03 Hep A Ab,IgM Non-Reactive Normal [facility] Comment on above: Performed By: #### P HEP ####[place] [address] [place] [address] Lab Director: Mode Nielson MD Hep B Core Ab,IgM Non-Reactive Normal [facility] Comment on above: Performed By: #### P HEP ####[address] [place] [address] Lab Director: Mode Nielson MD Hep B Surf Ag Non-Reactive Normal [facility] Comment on above: Performed By: #### P HEP ####[address] [place] [address] Lab Director: Mode Nielson MD Hep C Ab Non-Reactive Normal [facility] Comment on above: Result Comment: The hepatitis C procedure used in our laboratory is a Chemiluminescent test specific for three recombinant HCV antigens. A negative anti-HCV result indicates that the antibodies to hepatitis C virus are not present at this time. Individuals with reactive anti-HCV should be considered infected and infectious until proven otherwise. Confirmation of all equivocal or reactive results is recommended by ordering HCV RNA by PCR. Performed By: #### P HEP ####[facility] [place] [address] Lab Director: Mode Nielson MD IgGon 03-03-2024 IgG Level 1233 mg/dL Normal 791-1643 [facility] Comment on above: Performed By: #### I GG #### [facility] [address] [place] [address] MRI Abdomen w/ + w/o Contras ton 03-03-2024 MRI Abdomen w/ + w/o Contrast MRI Abdomen w/ + w/o Contrast, 03/02/2024, 10:37 PM EDT INDICATION: Fatty liver/steatohepatitis COMPARISON: Noncontrast CT abdomen and pelvis 09/06/2023 DISCUSSION: Abdominal MRI was performed without and with intravenous contrast. MRCP sequences were obtained. Patient received 14 mL of intravenous MultiHance. Lower thorax: Trace pleural effusions. Liver: There is mild signal loss on out of phase imaging indicating mild hepatic steatosis. On postcontrast or triple phase images there is a tiny arterial phase blush of enhancement in the right lobe measuring approximately 3 mm. There is no correlating T2 finding or restricted diffusion. This may be a small perfusion anomaly. No other focal liver findings. Biliary system: Status post cholecystectomy. 8.4 mm mildly prominent common bile duct of uncertain significance after cholecystectomy. Intrahepatic bile ducts are also mildly dilated but smooth in appearance. No common bile duct filling defect. Spleen: Absent Pancreas: Limited pancreatic tissue. Findings could be due to atrophy or postsurgical changes. The pancreatic duct is not well seen. Adrenal glands: No adrenal enlargement. Kidneys: No hydronephrosis. No enhancing cortical mass effect. Small cyst lateral right kidney, 9 mm. This is exophytic. Vasculature: Normal aorta. Celiac artery, SMA, and SMV as well as portal vein branches are grossly enhancing. Motion limits assessment. Lymph nodes: No enlarged lymph nodes are demonstrated. Visualized bowel: Moderate stool in the colon. Colon is mildly dilated. Motion limits assessment of the bowel and mesentery. Peritoneal cavity and retroperitoneum: No gross ascites. Peripheral tissues: Unremarkable. Osseous structures: No acute-appearing abnormalities. IMPRESSION: 1. Mildly prominent common bile duct and intrahepatic bile ducts. Status post cholecystectomy. Findings could be chronic after cholecystectomy but need to be correlated with liver function tests and clinical status. 2. Very little pancreatic tissue suggesting either atrophy or postsurgical changes. 3. Moderate stool throughout the colon. The colon is mildly dilated. Correlate for fecal retention. 4. Tiny arterial phase focus of enhancement in the right lobe may be a perfusion anomaly. There is no abnormality on the other sequences. 5. Trace pleural effusions. 6. Mild motion degradation could impact sensitivity. Final Dictated by: Antonino Mercer MD Dictated DT/TM: 03/03/2024 9:19 am Signed by: Antonino Mercer MD Signed (Electronic Signature): 03/03/2024 9:41 am Transcribed DT/TM: 03/03/2024 9:38 (If Report Is Signed, Electronically Signed in Other Vendor System) Normal [facility] Comment on above: Order Comment: Study ordered per discussion with Dr. Antoine Magnesiumon 03-03-2024 Magnesium [Mass/Vol] 2.2 mg/dL Normal 1.7-2.4 [facility] Comment on above: Performed By: #### C [id number] #### [address] [address] POC Glucose Randomon 024 Glucose [Mass/Vol] 103 mg/dL High 70-99 [facility] Comment on above: Performed By: #### C [id number] #### [address] [address] Glucose [Mass/Vol] 88 mg/dL Normal 70-99 [facility] Comment on above: Performed By: #### C BCI #### [address] [address] Glucose [Mass/Vol] 51 mg/dL Critically abnormal 70-99 [facility] Comment on above: Performed By: #### C BCI #### [address] [address] Glucose [Mass/Vol] 48 mg/dL Critically abnormal 70-99 [facility] Comment on above: Result Comment: Prov ider notified Performed By: #### C [id number] #### [address] [address] Procalcitonin Levelon 2023 Procalcitonin Lvl 0.13 ng/mL Normal <=0.49 [facility] Comment on above: Result Comment: < 0. 50 ng/mL: Low Risk of severe sepsis and/or septic shock. >2.00 ng/mL: High Risk of severe sepsis and/or septic shock. Concentrations under 0.5 ng/mL do not exclude local infections or systemic infections in their initial stages (e.g. under six hours from onset of illness). PCT concentrations between 0.50 and 2.00 ng/mL should be interpreted with consideration of the patient?s history. In this range, it is recommended to retest PCT within 6 to 24 hours. Performed By: #### C [id number] #### [address] [address] Salicylateon 03-03-2024 Salicylate Levl <4.0 Normal 0.0-30.0 [facility] Comment on above: Performed By: #### C BC #### [address] [address] TIBCon 03-03-2024 Iron [Mass/Vol] 68 ug/dL Normal 28-170 [facility] Comment on above: Performed By: #### C BCI #### [address] [address] Iron Sat 15.9 % Low >=16.0 [facility] Comment on above: Performed By: #### C BCI #### [address] [address] TIBC 427 mcg/dL Normal 261-478 [facility] Comment on above: Performed By: #### C BCI #### [address] [address] Transferrin [Mass/Vol] 305 mg/dL Normal 192-382 [facility] Comment on above: Performed By: #### C BCI #### [address] [address] UA w Culture if Indon 2023 Color (U) Light-Yellow Normal Yellow [facility] Comment on above: Performed By: #### C [id number] #### [place] [address] [place] [address] Ketones Ql (U) Negative Normal Negative [facility] Comment on above: Performed By: #### C [id number] #### [facility] [address] [place] [address], [place] [address] UA Blood Negative Normal Negative [facility] Comment on above: Performed By: #### C [id number] #### [address] [place] [address] UA Clarity Clear Normal Clear [facility] Comment on above: Performed By: #### C [id number] #### [address] [place] [address] UA Glucose Normal Normal Negative [facility] Comment on above: Performed By: #### C [id number] #### [address] [address] UA Leukocyte Esterase Negative Normal Negative [facility] Comment on above: Performed By: #### C [id number] #### [address] [place] [address] UA Nitrite Negative Normal Negative [facility] Comment on above: Performed By: #### C [id number] #### [address] [place] [address] UA pH 5.0 Normal 4.5 - 7.8 [facility] Comment on above: Performed By: #### C [id number] #### [address] [place] [address] UA Protein 10 mg/dL Normal Negative [facility] Comment on above: Performed By: #### C [id number] #### [address] [place] [address] UA Source Clean Catch Normal [facility] Comment on above: Performed By: #### C [id number] #### [address] [place] [address] UA Spec Grav 1.015 Normal 1.003-1.03 5 [facility] Comment on above: Performed By: #### C [id number] #### [address] [address] UA Urobilinogen Normal Normal 0.2 - 1.0 [facility] Comment on above: Performed By: #### C [id number] #### [address] [address] Urobilinogen (U) [Mass/Vol] Negative Normal Negative [facility] Comment on above: Performed By: #### C [id number] #### [address] [address] UDS Compon 03-03-2024 Creatinine [Mass/Vol] 64.8 mg/dL Normal [facility] Comment on above: Performed By: #### C BC #### [address] [address] Ur Amph Scrn Negative Normal NEG = <1000 [facility] Comment on above: Performed By: #### C BC #### [address] [address] Ur Fanta Scrn Negative Normal NEG = <200 [facility] Comment on above: Performed By: #### C BC #### [address] [address] Ur Benzodia Scrn Positive Abnormal NEG = <200 [facility] Comment on above: Result Comment: This unconfirmed positive screening result is to be used for medical treatment purposes only. Unconfirmed screening results must not be used for non-medical purposes (e.g. employment testing, legal testing). Performed By: #### C BC #### [address] [address] Ur Cannab Scrn Negative Normal NEG = <50 [facility] Comment on above: Performed By: #### C BC #### [address] [address] Ur Cocaine Scrn Negative Normal NEG = <300 [facility] Comment on above: Performed By: #### C BC #### [address] [address] Ur Methadone Scn Negative Normal NEG = <300 [facility] Comment on above: Performed By: #### C BC #### [address] [address] Ur Opiate Scrn Positive Abnormal NEG = <300 [facility] Comment on above: Result Comment: This unconfirmed positive screening result is to be used for medical treatment purposes only. Unconfirmed screening results must not be used for non-medical purposes (e.g. employment testing, legal testing). Performed By: #### C BC #### [address] [address] Ur Oxy Screen Negative Normal NEG = <100 [facility] Comment on above: Performed By: #### C BC #### [address] [address] Ur Oxy Scrn Qnt 44 ng/mL Normal <=99 [facility] Comment on above: Performed By: #### C BC #### [address] [address] Ur PCP Scrn Negative Normal NEG = <25 [facility] Comment on above: Performed By: #### C BC #### [address] [address] UA pH 5.0 Normal 4.5 - 7.8 [facility] Comment on above: Performed By: #### C BC #### [address] [address] UA Spec Grav 1.015 Normal 1.003-1.03 5 [facility] Comment on above: Performed By: #### C BC #### [place] [id number] X S NoGelon 03-03-2024 Extra Serum NoGel Collected Normal [facility] Comment on above: Performed By: #### C BCI #### [place] [address] X SSTon 03-03-2024 Extra SST Collected Normal [facility] Comment on above: Performed By: #### C BC #### [address] [address] .eGFRon 03-02-2024 Estimated GFR 33 mL/min/1.73m? Low >=60 [facility] Comment on above: Result Comment: [facility] Laboratories have implemented the eGFR calculation approach that does not have a coefficient for race and that conforms to the NKF-ASN Task Force Recommendations. Stages of Chronic Kidney Disease GFR Stage 3a Mild to moderate loss of kidney function 59 to 45 Stage 3b Moderate to severe loss of kidney function 44 to 33 Stage 4 Severe loss of kidney function 29 to 15 Stage 5 Kidney failure Less than 15 GFR calculated using the CKD-Epi Creatinine Equation (2020): eGFR = 142 X min(SCr/?, 1)? X max(SCr /?, 1)-1.200 X 0.9938Age X 1.012 [if female] Abbreviations/Units: eGFR (estimated glomerular filtration rate) = mL/min/1.73 m2 SCr (standardized serum creatinine) = mg/dL ? = 0.7 (females) or 0.9 (males) ? = -0.241 (females) or -0.302 (males) min = indicates the minimum of SCr/? or 1 max = indicates the maximum of SCr/? or 1 Age = years Performed By: #### I GG #### [address] [address] CBC w/ Diffon 03-02-2024 Erythrocyte distribution width (RBC) [Ratio] 14.0 % Normal 11.6-14.8 [facility] Comment on above: Performed By: #### C [id number] #### [address] [address] Hematocrit (Bld) [Volume fraction] 33.7 % Low 36.0-46.0 [facility] Comment on above: Performed By: #### C [id number] #### [address] [address] Hemoglobin (Bld) [Mass/Vol] 10.8 g/dL Low 12.0-16.0 [facility] Comment on above: Performed By: #### C [id number] #### [address] [address] MCH (RBC) [Entitic mass] 30.0 pg Normal 27.0-35.0 [facility] Comment on above: Performed By: #### C [id number] #### [address] [address] MCHC 32.1 % Normal 31.0-37.0 [facility] Comment on above: Performed By: #### C [id number] #### [address] [address] MCV (RBC) [Entitic vol] 93.3 fL Normal 80.0-100.0 [facility] Comment on above: Performed By: #### C [id number] #### [place] [id number] Platelet 301 x10*3/mcL Normal 150-450 [facility] Comment on above: Performed By: #### C [id number] #### [address] [address] Platelet mean volume (Bld) [Entitic vol] 9.8 fL Normal 6.7-10.6 [facility] Comment on above: Performed By: #### C [id number] #### [address] [address] RBC 3.61 x10*6/mcL Low 3.80-5.20 [facility] Comment on above: Performed By: #### C [id number] #### [address] [address] WBC 11.4 x10*3/mcL High 4.5-11.0 [facility] Comment on above: Performed By: #### C [id number] #### [address] [address] CBC with Diffon 03-02-2024 Basophils (Bld) [#/Vol] 0.07 10*3/uL [facility] Basophils/100 WBC (Bld) 1 % 0 - 2 % [facility] Eosinophils (Bld) [#/Vol] [facility] Eosinophils/100 WBC (Bld) 0 % Low 1 - 4 % [facility] Erythrocyte distribution width (RBC) [Ratio] 13.9 % 11.8 - 14.4 % [facility] Hematocrit (Bld) [Volume fraction] 33.5 % Low 36.3 - 47.1 % [facility] Hemoglobin (Bld) [Mass/Vol] 10.8 g/dL Low 11.9 - 15.1 g/dL [facility] Immature granulocytes (Bld) [#/Vol] [facility] Immature granulocytes/100 WBC (Bld) 0 % 0 [facility] Interpretation and review of laboratory results Abnormal [facility] Lymphocytes/100 WBC (Bld) 17 % Low 24 - 43 % [facility] Lymphocytes/100 WBC (Bld) 1.67 % [facility] MCH (RBC) [Entitic mass] 30.3 pg 25.2 - 33.5 pg [facility] MCHC (RBC) [Mass/Vol] 32.2 g/dL 28.4 - 34.8 g/dL [facility] MCV (RBC) [Entitic vol] 93.8 fL 82.6 - 102.9 fL [facility] Monocytes/100 WBC (Bld) 8 % 3 - 12 % [facility] Monocytes/100 WBC (Bld) 0.75 % [facility] Neutrophils/100 WBC (Bld) 75 % High 36 - 65 % [facility] Nucleated RBC/100 WBC (Bld) [Ratio] 0.0 % 0.0 per 100 WBC [facility] Platelet mean volume (Bld) [Entitic vol] 11.3 fL 8.1 - 13.5 fL [facility] Platelets (Bld) [#/Vol] 311 10*3/uL [facility] RBC (Bld) [#/Vol] 3.57 10*6/uL Low 3.95 - 5.11 m/uL [facility] Segmented neutrophils/100 WBC (Bld) 7.55 % [facility] WBC other (Bld) [#/Vol] 10.1 [facility] Abs. Basophil 0.07 k/uL Normal 0.00-0.20 [facility] Comment on above: Performed By: #### L IP, CP, CDP ####[address] [place] [address] Lab Director: Patti Swanson MD Abs. Eosinophil <0.03 Normal 0.00-0.44 [facility] Comment on above: Performed By: #### L IP, CP, CDP ####[address] [place] [address] Lab Director: Patti Swanson MD Abs.Imm.Granulocyte <0.03 Normal 0.00-0.30 [facility] Comment on above: Performed By: #### L IP, CP, CDP ####[address] [place] [id number] Lab Director: Patti Swanson MD Abs.Neutrophil (Seg) 7.55 k/uL Normal 1.50-8.10 [facility] Comment on above: Performed By: #### L IP, CP, CDP ####[address] [place] [id number] Lab Director: Patti Swanson MD Basophils/100 WBC (Bld) 1 % Normal 0-2 [facility] Comment on above: Performed By: #### L IP, CP, CDP ####[address] [place] [id number] Lab Director: Patti Swanson MD Eosinophils/100 WBC (Bld) 0 % Low 1-4 [facility] Comment on above: Performed By: #### L IP, CP, CDP ####[address] [place] [address] Lab Director: Patti Swanson MD Erythrocyte distribution width (RBC) [Ratio] 13.9 % Normal 11.8-14.4 [facility] Comment on above: Performed By: #### L IP, CP, CDP ####[address] , [facility] Lab Director: Patti Swanson MD Hematocrit (Bld) [Volume fraction] 33.5 % Low 36.3-47.1 [facility] Comment on above: Performed By: #### L IP, CP, CDP ####[address] [place] [address] Lab Director: Patti Swanson MD Hemoglobin (Bld) [Mass/Vol] 10.8 g/dL Low 11.9-15.1 [facility] Comment on above: Performed By: #### L IP, CP, CDP ####[address] , [place] [address] Lab Director: Patti Swanson MD Immature granulocytes/100 WBC (Bld) 0 % Normal 0 [facility] Comment on above: Performed By: #### L IP, CP, CDP ####[address] , [facility] Lab Director: Patti Swanson MD Lymphocytes (Bld) [#/Vol] 1.67 10*3/uL Normal 1.10-3.70 [facility] Comment on above: Performed By: #### L IP, CP, CDP ####[address] , [facility] Lab Director: Patti Swanson MD Lymphocytes/100 WBC (Bld) 17 % Low 24-43 [facility] Comment on above: Performed By: #### L IP, CP, CDP ####[address] , [facility] Lab Director: Patti Swanson MD MCH (RBC) [Entitic mass] 30.3 pg Normal 25.2-33.5 [facility] Comment on above: Performed By: #### L OSITO CP, CDP ####[address] , [place] [id number] Lab Director: Patti Swanson MD MCHC (RBC) [Mass/Vol] 32.2 g/dL Normal 28.4-34.8 [facility] Comment on above: Performed By: #### L IP, CP, CDP ####[address] [place] [address] Lab Director: Patti Swanson MD MCV (RBC) [Entitic vol] 93.8 fL Normal 82.6-102.9 [facility] Comment on above: Performed By: #### L OSITO CP, CDP ####[address] [place] [address] Lab Director: Patti Swanson MD Monocytes (Bld) [#/Vol] 0.75 10*3/uL Normal 0.10-1.20 [facility] Comment on above: Performed By: #### L OSITO CP, CDP ####[address] [place] [address] Lab Director: Patti Swanson MD Monocytes/100 WBC (Bld) 8 % Normal 3-12 [facility] Comment on above: Performed By: #### L OSITO CP, CDP ####[address] [place] [address] Lab Director: Patti Swanson MD Neutrophil (Seg) 75 % High 36-65 [facility] Comment on above: Performed By: #### L IP CP, CDP ####[address] [place] [address] Lab Director: Patti Swanson MD NRBC Automated 0.0 per 100 WBC Normal 0.0 [facility] Comment on above: Performed By: #### L IP, CP, CDP ####[address] , [place] [id number] Lab Director: Patti Swanson MD Platelet mean volume (Bld) [Entitic vol] 11.3 fL Normal 8.1-13.5 [facility] Comment on above: Performed By: #### L IP, CP, CDP ####[address] , [place] [id number] Lab Director: Patti Swanson MD Platelets (Bld) [#/Vol] 311 10*3/uL Normal 138-453 [facility] Comment on above: Performed By: #### L IP, CP, CDP ####[address] , [place] [id number] Lab Director: Patti Swanson MD RBC (Bld) [#/Vol] 3.57 10*6/uL Low 3.95-5.11 [facility] Comment on above: Performed By: #### L OSITO CP, CDP ####[address] [place] [address] Lab Director: Patti Swanson MD WBC (Bld) [#/Vol] 10.1 10*3/uL Normal 3.5-11.3 [facility] Comment on above: Performed By: #### L IP, CP, CDP ####[address] [place] [address] Lab Director: Patti Swanson MD [facility] Albumin [Mass/Vol] 4.2 g/dL Normal 3.2-4.9 [facility] Comment on above: Performed By: #### C [id number] #### [facility] [address] [place] [address] Albumin/Globulin [Mass ratio] 1.1 {ratio} Normal 1.1-2.2 [facility] Comment on above: Performed By: #### C [id number] #### [address] [address] Alk Phos 550 IU/L High 32-91 [facility] Comment on above: Performed By: #### C [id number] #### [address] [address] ALT [Catalytic activity/Vol] 252 U/L High 14-54 [facility] Comment on above: Performed By: #### C [id number] #### [address] [address] Anion gap [Moles/Vol] 10 mmol/L Normal 4-12 [facility] Comment on above: Performed By: #### C [id number] #### [address] [address] AST [Catalytic activity/Vol] 195 U/L High 15-41 [facility] Comment on above: Performed By: #### C [id number] #### [address] [address] Bili Total 0.6 mg/dL Normal 0.3-1.2 [facility] Comment on above: Performed By: #### C [id number] #### [address] [address] Calcium [Mass/Vol] 8.7 mg/dL Normal 8.5-10.3 [facility] Comment on above: Performed By: #### C [id number] #### [address] [address] Chloride [Moles/Vol] 107 mmol/L Normal 98-110 [facility] Comment on above: Performed By: #### C [id number] #### [address] [address] CO2 [Moles/Vol] 20 mmol/L Low 22-32 [facility] Comment on above: Performed By: #### C [id number] #### [address] [address] Creatinine [Mass/Vol] 1.98 mg/dL High 0.44-1.03 [facility] Comment on above: Performed By: #### C [id number] #### [address] [address] Glucose [Mass/Vol] 104 mg/dL High 70-99 [facility] Comment on above: Performed By: #### C [id number] #### [address] [address] Potassium [Moles/Vol] 4.1 mmol/L Normal 3.4-4.8 [facility] Comment on above: Performed By: #### C [id number] #### [address] [address] Protein [Mass/Vol] 8.1 g/dL Normal 6.5-8.1 [facility] Comment on above: Performed By: #### C [id number] #### [address] [address] Sodium [Moles/Vol] 137 mmol/L Normal 133-142 [facility] Comment on above: Performed By: #### C D:[id number] #### [address] [address] Urea nitrogen [Mass/Vol] 25 mg/dL Normal 8-26 [facility] Comment on above: Performed By: #### C [id number] #### [address] [address] Urea nitrogen/Creatinine [Mass ratio] 12.6 mg/mg Normal 10.0-20.0 [facility] Comment on above: Performed By: #### C [id number] #### [address] [address] Albumin [Mass/Vol] 4.3 g/dL 3.5 - 5.2 g/dL [facility] Albumin/Globulin [Mass ratio] 1.3 {ratio} 1.0 - 2.5 [facility] ALP [Catalytic activity/Vol] 691 U/L High 35 - 104 U/L [facility] ALT [Catalytic activity/Vol] 345 U/L High 10 - 35 U/L [facility] Anion gap [Moles/Vol] 11 mmol/L 9 - 16 mmol/L [facility] AST [Catalytic activity/Vol] 480 U/L High 10 - 35 U/L [facility] Bilirubin [Mass/Vol] 0.2 mg/dL 0.00 - 1.20 mg/dL [facility] Calcium [Mass/Vol] 9.0 mg/dL 8.6 - 10. 4 mg/dL [facility] Chloride [Moles/Vol] 106 mmol/L 98 - 10 7 mmol/L [facility] CO2 [Moles/Vol] 21 mmol/L 20 - 31 mmol/L [facility] Creatinine [Mass/Vol] 2.1 mg/dL High 0.50 - 0.90 mg/dL [facility] Est, Glom Filt Rate 31 Low - [facility] Comment on above: These results are not intended for use in patients <18 years of age. eGFR results are calculated without a race factor using the 2020 CKD-EPI equation. Careful clinical correlation is recommended, particularly when comparing to results calculated using previous equations. The CKD-EPI equation is less accurate in patients with extremes of muscle mass, extra-renal metabolism of creatine, excessive creatine ingestion, or following therapy that affects renal tubular secretion. Glucose [Mass/Vol] 110 mg/dL High 74 - 99 mg/dL [facility] Potassium [Moles/Vol] 4.2 mmol/L 3.7 - 5.3 mmol/L [facility] Protein [Mass/Vol] 7.6 g/dL 6.6 - 8.7 g/dL [facility] Sodium [Moles/Vol] 138 mmol/L 136 - 145 mmol/L [facility] Urea nitrogen [Mass/Vol] 29 mg/dL High 6 - 20 mg/dL [facility] Urea nitrogen/Creatinine [Mass ratio] 14 mg/mg 9 - [address] [facility] [address] ABDOMEN PELVIS W IV CONTR Earl 03-02-2024 CT ABDOMEN PELVIS W IV CONTRAST EXAMINATION: CT OF THE ABDOMEN AND PELVIS WITH CONTRAST 03/02/2024 10:44 am TECHNIQUE: CT of the abdomen and pelvis was performed with the administration of intravenous contrast. Multiplanar reformatted images are provided for review. Automated exposure control, iterative reconstruction, and/or weight based adjustment of the mA/kV was utilized to reduce the radiation dose to as low as reasonably achievable. COMPARISON: 12/02/2023 HISTORY: ORDERING SYSTEM PROVIDED HISTORY: abd pain TECHNOLOGIST PROVIDED HISTORY: abd pain Decision Support Exception - unselect if not a suspected or confirmed emergency medical condition->Emergency Medical Condition (MA) FINDINGS: Lower Chest: There is mild bibasilar dependent atelectasis along with trace bilateral pleural effusions. 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 The liver and kidneys are unremarkable. GI/Bowel: A large amount of stool is noted throughout the colon. There is no bowel dilatation, wall thickening or obstruction. Pelvis: An IUD is centrally located within the uterus. The bladder is unremarkable. Peritoneum/Retroperitoneu m: There is no free air, free fluid or intraperitoneal inflammatory change. Bones/Soft Tissues: There is no acute fracture or aggressive osseous lesion. IMPRESSION: Constipation Interpreted by: Castillo Olson MD Signed by: Castillo Olson MD 03/02/24 Final result Normal [facility] CT Abdomen and Pelvis W cont rast Radha 03-02-2024 Constipation [facility] RIS CONSOLIDATED EXAMINATION: CT OF THE ABDOMEN AND PELVIS WITH CONTRAST 03/02/2024 10:44 am TECHNIQUE: CT of the abdomen and pelvis was performed with the administration of intravenous contrast. Multiplanar reformatted images are provided for review. Automated exposure control, iterative reconstruction, and/or weight based adjustment of the mA/kV was utilized to reduce the radiation dose to as low as reasonably achievable. COMPARISON: 12/02/2023 HISTORY: ORDERING SYSTEM PROVIDED HISTORY: abd pain TECHNOLOGIST PROVIDED HISTORY: abd pain Decision Support Exception - unselect if not a suspected or confirmed emergency medical condition->Emergency Medical Condition (MA) FINDINGS: Lower Chest: There is mild bibasilar dependent atelectasis along with trace bilateral pleural effusions. 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 The liver and kidneys are unremarkable. GI/Bowel: A large amount of stool is noted throughout the colon. There is no bowel dilatation, wall thickening or obstruction. Pelvis: An IUD is centrally located within the uterus. The bladder is unremarkable. Peritoneum/Retroperitoneu m: There is no free air, free fluid or intraperitoneal inflammatory change. Bones/Soft Tissues: There is no acute fracture or aggressive osseous lesion. PN RIS CONSOLIDATED Castillo Olson MD - 03/02/2024 EXAMINATION: CT OF THE ABDOMEN AND PELVIS WITH CONTRAST 03/02/2024 10:44 am TECHNIQUE: CT of the abdomen and pelvis was performed with the administration of intravenous contrast. Multiplanar reformatted images are provided for review. Automated exposure control, iterative reconstruction, and/or weight based adjustment of the mA/kV was utilized to reduce the radiation dose to as low as reasonably achievable. COMPARISON: 12/02/2023 HISTORY: ORDERING SYSTEM PROVIDED HISTORY: abd pain TECHNOLOGIST PROVIDED HISTORY: cox branson pain Decision Support Exception - unselect if not a suspected or confirmed emergency medical condition->Emergency Medical Condition (MA) FINDINGS: Lower Chest: There is mild bibasilar dependent atelectasis along with trace bilateral pleural effusions. 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 The liver and kidneys are unremarkable. GI/Bowel: A large amount of stool is noted throughout the colon. There is no bowel dilatation, wall thickening or obstruction. Pelvis: An IUD is centrally located within the uterus. The bladder is unremarkable. Peritoneum/Retroperitoneu m: There is no free air, free fluid or intraperitoneal inflammatory change. Bones/Soft Tissues: There is no acute fracture or aggressive osseous lesion. IMPRESSION: Constipation [facility] Radiology Study observation (narrative) [facility] CT Abdomen and Pelvis W cont rast IVOrdered By: Castillo Olson on 03-02-2024 [facility] Work Phone: Comp Metabolic Profon 2023 Albumin [Mass/Vol] 4.3 g/dL Normal 3.5-5.2 [facility] Comment on above: Performed By: #### L IP, CP, CDP ####[address] , [place] [address] Lab Director: Patti Swanson MD Albumin/Glob Ratio 1.3 Normal 1.0-2.5 [facility] Comment on above: Performed By: #### L IP, CP, CDP ####[address] , [place] [id number] lab Director: Patti Swanson MD Alkaline Phos 691 U/L High 35-104 [facility] Comment on above: Performed By: #### L IP, CP, CDP ####[address] , [place] [id number] lab Director: Patti Swanson MD ALT [Catalytic activity/Vol] 345 U/L High 10-35 [facility] Comment on above: Performed By: #### L IP, CP, CDP ####[address] , [place] [id number] Lab Director: Patti Swanson MD Anion gap [Moles/Vol] 11 mmol/L Normal 9-16 [facility] Comment on above: Performed By: #### L IP, CP, CDP ####[address] , [place] [id number] Lab Director: Patti Swanson MD AST [Catalytic activity/Vol] 480 U/L High 10-35 [facility] Comment on above: Performed By: #### L IP, CP, CDP ####[address] , [place] [id number] lab Director: Patti Swanson MD Bilirubin [Mass/Vol] 0.2 mg/dL Normal 0.00-1.20 [facility] Comment on above: Performed By: #### L IP, CP, CDP ####[address] , [place] 180[address]83 Lab Director: Patti Swanson MD BUN/CRE Ratio 14 Normal 9-20 [facility] Comment on above: Performed By: #### L IP, CP, CDP ####[address] [place] [address] Lab Director: Patti Swanson MD Calcium [Mass/Vol] 9.0 mg/dL Normal 8.6-10.4 [facility] Comment on above: Performed By: #### L IP, CP, CDP ####[address] [place] [address] Lab Director: Patti Swanson MD Chloride [Moles/Vol] 106 mmol/L Normal 98-107 [facility] Comment on above: Performed By: #### L IP, CP, CDP ####[address] [place] [address] Lab Director: Patti Swanson MD CO2 [Moles/Vol] 21 mmol/L Normal 20-31 [facility] Comment on above: Performed By: #### L IP, CP, CDP ####[address] , [place] 7[address] Lab Director: Patti Swanson MD Creatinine [Mass/Vol] 2.1 mg/dL High 0.50-0.90 [facility] Comment on above: Performed By: #### L IP, CP, CDP ####[address] [place] [address] Lab Director: Patti Swanson MD GFR/1.73 sq M.predicted among non-blacks MDRD (S/P/Bld) [Vol rate/Area] 31 mL/min/{1.73_m2} Low >60 [facility] Comment on above: Result Comment: These results are not intended for use in patients <18 years of age. eGFR results are calculated without a race factor using the 2020 CKD-EPI equation. Careful clinical correlation is recommended, particularly when comparing to results calculated using previous equations. The CKD-EPI equation is less accurate in patients with extremes of muscle mass, extra-renal metabolism of creatine, excessive creatine ingestion, or following therapy that affects renal tubular secretion. Performed By: #### L IP, CP, CDP ####[address] , [place] 8[address] Lab Director: Patti Swanson MD Glucose [Mass/Vol] 110 mg/dL High 74-99 [facility] Comment on above: Performed By: #### L IP, CP, CDP ####[address] [place] [address] Lab Director: Patti Swanson MD Potassium [Moles/Vol] 4.2 mmol/L Normal 3.7-5.3 [facility] Comment on above: Performed By: #### L IP, CP, CDP ####[address] [place] [address] Lab Director: Patti Swanson MD Protein [Mass/Vol] 7.6 g/dL Normal 6.6-8.7 [facility] Comment on above: Performed By: #### L IP, CP, CDP ####[address] [place] [address] Lab Director: Patti wSanson MD Sodium [Moles/Vol] 138 mmol/L Normal 136-145 [facility] Comment on above: Performed By: #### L IP, CP, CDP ####[address] [place] [address] Lab Director: Patti Swanson MD Urea nitrogen [Mass/Vol] 29 mg/dL High 6-20 [facility] Comment on above: Performed By: #### L IP, CP, CDP ####[address] , [place] [address] Lab Director: Patti wSanson MD Diff Tracey 03-02-2024 Acanthocytes Few Normal [facility] Comment on above: Performed By: #### C [id number] #### [address] [place] [address] Band form neutrophils/100 WBC (Bld) 0 % Normal 0-5 [facility] Comment on above: Performed By: #### C [id number] #### [address] [place] [address] Basophils/100 WBC (Bld) 0 % Normal 0-3 [facility] Comment on above: Performed By: #### C [id number] #### [address] [place] [address] Eosinophils/100 WBC (Bld) 0 % Normal 0-7 [facility] Comment on above: Performed By: #### C [id number] #### [address] [place] [address] Hypochromasia Slight Normal [facility] Comment on above: Performed By: #### C [id number] #### [address] [place] [address] Lymphocytes/100 WBC (Bld) 22 % Normal 14-42 [facility] Comment on above: Performed By: #### C [id number] #### [address] [address] Monocytes/100 WBC (Bld) 5 % Normal 1-11 [facility] Comment on above: Performed By: #### C [id number] #### [address] [place] [address] Ovalocytes Few Normal [facility] Comment on above: Performed By: #### C [id number] #### [address] [place] [address] Platelet estimate Adequate Normal [facility] Comment on above: Performed By: #### C [id number] #### [address] [place] [address] Poikilocytes Slight Normal [facility] Comment on above: Performed By: #### C [id number] #### [address] [place] [address] RBC morphology finding Nom (Bld) Normal Normal [facility] Comment on above: Performed By: #### C D:[id number] #### [facility] [address] [place] [address] Schistocytes Few Normal [facility] Comment on above: Performed By: #### C D:[id number] #### [address] [place] [address] Segs Man 73 % Normal 49-79 [facility] Comment on above: Performed By: #### C D:[id number] #### [address] [place] [address] Target Cell Few Normal [facility] Comment on above: Performed By: #### C D:[id number] #### [address] [address] HCG Qualitative, Serumon HCG ( test) Ql Negative NEGATIVE [facility] Comment on above: Specimens with hCG l evels near the threshold of the test (25 mIU/mL) may give a negative or indeterminate result. In such cases, another test should be performed with a new specimen in 48-72 hours. If early is suspected clinically in this setting, correlation with quantitative serum b-hCG level is suggested. [employer] has confirmed the use of plasma for this test. This has not been cleared or approved by the U.S. Food and Drug Administration. The FDA has determined that such clearance is not necessary. [facility] HCG Screen, Bloodon 03-02-20 24 HCG Screen, Blood Negative Normal NEG [place] Comment on above: Result Comment: Spec imens with hCG levels near the threshold of the test (25 mIU/mL) may give a negative or indeterminate result. In such cases, another test should be performed with a new specimen in 48-72 hours. If early is suspected clinically in this setting, correlation with quantitative serum b-hCG level is suggested. [employer] has confirmed the use of plasma for this test. This has not been cleared or approved by the U.S. Food and Drug Administration. The FDA has determined that such clearance is not necessary. Performed By: #### H CG ####[facility] [address] [place] [address] [facility] Director: Patti Swanson MD Lactic Acidon 03-02-2024 Lactate (BldV) [Moles/Vol] 0.7 mmol/L 0.5 - 2.2 mmol/L [facility] Lactate [Moles/Vol] 0.7 mmol/L Normal 0.5-2.2 [facility] Comment on above: Performed By: #### U AMI, CG #### [facility] [address] [place] [address] Vocational Placement Specialist: Patti Swanson MD Lipaseon 03-02-2024 Lipase [Catalytic activity/Vol] 7 U/L Low 13 - 60 U/L [facility] Lipase [Catalytic activity/Vol] 7 U/L Low 13-60 [facility] Comment on above: Performed By: #### L IP, CP, CDP ####[facility] [address] [place] [address] [facility] Director: Patti Swanson MD Lipid Panelon 03-02-2024 Cholesterol in LDL [Mass/Vol] 121 mg/dL High 0-99 [facility] Comment on above: Result Comment: The equation being used in this calculation is LDL = (Chol - HDL) - (Trig / 5) The optimal value of LDL for individual patients may vary. The patient's history of Artherosclerosis and other cardiac risk factors should be considered. Performed By: #### H GBHCT #### [facility] [address] [place] [address] Cardiac Risk 4.7 Normal [facility] Comment on above: Result Comment: Men Women 1/2 Average 3.43 3.27 Average 4.97 4.44 2x Average 9.55 7.05 3x Average 23.99 11.04 Performed By: #### H GBHCT #### [facility] [address] [place] [address] Cholesterol [Mass/Vol] 200 mg/dL High 25-199 Bl [facility] Comment on above: Result Comment: 0 - 17 years of age: Desirable 0-170 Borderline High 170-199 High >=200 18 years and older: Acceptable <200 Borderline High 200-239 High >=240 Performed By: #### H GBHCT #### [address] [address] Cholesterol in HDL [Mass/Vol] 42.4 mg/dL Normal 40.0-60.0 [facility] Comment on above: Performed By: #### H GBHCT #### [address] [address] Cholesterol in VLDL [Mass/Vol] 36 mg/dL Normal 8-39 [facility] Comment on above: Performed By: #### H GBHCT #### [address] [address] Triglyceride [Mass/Vol] 182 mg/dL Normal [facility] Comment on above: Result Comment: 0 - 17 years of age: Trig 90 - 129 Borderline High Trig => 130 High 18 years and older: Trig 150 - 199 Borderline High Trig 200 - 499 High Trig =>500 Very High Performed By: #### H GBHCT #### [address] [address] Magnesiumon 03-02-2024 Magnesium [Mass/Vol] 1.6 mg/dL Low 1.7-2.4 [facility] Comment on above: Performed By: #### I GG #### [address] [address] Microscopic Urinalysison Bacteria LM Ql (Urine sed) 1+ Abnormal None [employer] Invested.in Character (U) MICROSCOPIC PERFORME D ON UNSPUN URINE Abnormal NOT REQ. [facility] Character (U) Quantity not sufficient. Abnormal NOT REQ. [facility] Epithelial cells LM.HPF (Urine sed) [#/Area] 0 TO 2 [facility] Interpretation and review of laboratory results Abnormal [facility] RBC LM.HPF (Urine sed) [#/Area] 0 TO 2 [facility] WBC LM.HPF (Urine sed) [#/Area] 0 TO 2 [facility] No Panel Informationon 03-02 Interpretation and review of laboratory results Abnormal [facility] PTon 03-02-2024 INR Coag (PPP) [Relative time] 1.1 {INR} Normal <=3.5 [facility] Comment on above: Result Comment: INR has no normal range. INR Therapeutic range is: 2.0-3.0 (AF, CVA, TIAs, DVT prophylaxis, acute DVT) 2.5-3.5 ([facility] heart valves, recurrent thrombosis/emboli) Performed By: #### I GG #### [facility] [address] [place] [address] PT Coag (PPP) [Time] 11.1 s Normal 9.2-12.0 [facility] Comment on above: Performed By: #### I GG #### [facility] [address] [place] [address] UA w/Reflex Cultureon 2023 Bilirubin, SemiQt,Ur Negative Normal NEG [facility] Comment on above: Performed By: #### U AMIBob [facility] #### [facility] [address] [place] [address] Vocational Placement Specialist: Patti Swanson MD Blood, Urine Negative Normal NEG [facility] Comment on above: Performed By: #### U AMIBob CG #### [facility] [address] [place] [address] Vocational Placement Specialist: Patti Swanson MD Clarity (U) Clear Normal CLEAR [facility] Comment on above: Performed By: #### U AMIBob CG #### [facility] [address] [place] [address] Vocational Placement Specialist: Patti Swanson MD Color (U) Yellow Normal YEL [facility] Comment on above: Performed By: #### U AMIC CG #### [facility] [address] [place], [place] [id number] Vocational Placement Specialist: Patti Swanson MD Glucose Ql (U) Negative Normal NEG [facility] in Hospital Comment on above: Performed By: #### U AMIC, UHCG #### [facility] [address] [place], [place] [address] Vocational Placement Specialist: Patti Swanson MD Ketones Ql (U) Negative Normal NEG [facility] in Hospital Comment on above: Performed By: #### U AMIC, UHCG #### [facility] [address] [place], [place] [address] Vocational Placement Specialist: Patti Swanson MD Leukocyte esterase Test strip Ql (U) Negative Normal NEG [facility] Comment on above: Performed By: #### U AMIC, UHCG #### [facility] [address] [place] [address] Dr[place], [place] [id number] Vocational Placement Specialist: Patti Swanson MD Nitrite,Ur Negative Normal [facility] Comment on above: Performed By: #### U AMIC, UHCG #### [facility] [address] [place] [address] [place] [address] Vocational Placement Specialist: Patti Swanson MD PH,Ur 6.0 Normal 5.0-9.0 [facility] Comment on above: Performed By: #### U AMIC, UHCG #### [facility] [address] [place], [place] [id number] Vocational Placement Specialist: Patti Swanson MD Protein Ql (U) Negative Normal NEG [facility] in Hospital Comment on above: Performed By: #### U AMIC, UHCG #### [facility] [address] [place], [place] [id number] Vocational Placement Specialist: Patti Swanson MD Spec. Kitzmiller,Ur <1.005 [place] 1.010-1.02 0 [facility] Comment on above: Performed By: #### U [facility] #### [facility] [address] [place] [address] Vocational Placement Specialist: Patti Swanson MD Urobilinogen,Ur Normal Normal 0.0-1.0 [facility] Comment on above: Performed By: #### U [facility] #### [facility] [address] [place] [address] Vocational Placement Specialist: Patti Swanson MD Urinalysis with Reflex to Cu ltureon 03-02-2024 Bilirubin Ql (U) Negative NEGATIVE [facility] Clarity (U) Clear Clear [facility] Color (U) Yellow Yellow [facility] Glucose Test strip (U) [Mass/Vol] Negative NEGATIVE mg/dL [facility] Hemoglobin Auto test strip Ql (U) Negative NEGATIVE [facility] Interpretation and review of laboratory results Abnormal [facility] Ketones (U) [Mass/Vol] Negative NEGAT PAGE mg/dL [facility] Leukocyte esterase Test strip Ql (U) Negative NEGATIVE [facility] Nitrite Ql (U) Negative NEGATIVE [facility] pH (U) 6.0 [pH] 5.0 - 9.0 [facility] Protein (U) [Mass/Vol] Negative NEGAT PAGE mg/dL [facility] Specific gravity (U) [Rel density] Low 1.010 - 1.020 [facility] Urobilinogen Qn (U) Normal 0.0 - 1. 0 EU/dL [facility] Urinalysis,Microon 4 Other Observations MICROSCOPIC PERFORME D ON UNSPUN URINE Abnormal NREQ [facility] Comment on above: Result Comment: Jovanny moya not sufficient. Performed By: #### U [facility] #### [facility] [address] [place] [address] Vocational Placement Specialist: Patti Swanson MD Bacteria 1+ Abnormal NONE [facility] Comment on above: Performed By: #### U AMIC, CG #### [facility] [address] [place] [address] Vocational Placement Specialist: Patti Swanson MD Epithelial cells LM Ql (Urine sed) 0 TO 2 Normal 0-25 [facility] Comment on above: Performed By: #### U AMIC, UHCG #### [facility] [address] [place], [facility]83 Vocational Placement Specialist: Patti Swanson MD Urine RBC's 0 TO 2 Normal 0-2 [facility] Comment on above: Performed By: #### U AMIC, CG #### [facility] [address] [place] [address] Vocational Placement Specialist: Patti Swanson MD Urine WBC's 0 TO 2 Normal 0-5 [facility] Comment on above: Performed By: #### U AMIC, [facility] #### [facility] [address] [place] [address] Vocational Placement Specialist: Patti Swanson MD CBC with Auto Differentialon 02-27-2024 Basophils (Bld) [#/Vol] 0.46 10*3/uL High [facility] Basophils/100 WBC (Bld) 3 % High 0 - 2 % [facility] Eosinophils (Bld) [#/Vol] 0.00 10*3/uL [facility] Eosinophils/100 WBC (Bld) 0 % Low 1 - 4 % [facility] Erythrocyte distribution width (RBC) [Ratio] 13.3 % 11.8 - 14.4 % [facility] Hematocrit (Bld) [Volume fraction] 34.3 % Low 36.3 - 47.1 % [facility] Hemoglobin (Bld) [Mass/Vol] 10.9 g/dL [place] 11.9 - 15.1 g/dL [facility] Immature granulocytes (Bld) [#/Vol] 0.15 10*3/uL [facility] Immature granulocytes/100 WBC (Bld) 1 % High 0 [facility] Interpretation and review of laboratory results Abnormal [facility] Lymphocytes/100 WBC (Bld) 10 % Low 24 - 43 % [facility] Lymphocytes/100 WBC (Bld) 1.52 % [facility] MCH (RBC) [Entitic mass] 29.9 pg 25.2 - 33.5 pg [facility] MCHC (RBC) [Mass/Vol] 31.8 g/dL 28.4 - 34.8 g/dL [facility] MCV (RBC) [Entitic vol] 94.0 fL 82.6 - 102.9 fL [facility] Monocytes/100 WBC (Bld) 2 % Low 3 - 12 % [facility] Monocytes/100 WBC (Bld) 0.30 % [facility] Morphology Tc (Bld) [Interp] ANISOCYTOSIS PRESENT [facility] Neutrophils/100 WBC (Bld) 84 % High 36 - 65 % [facility] Nucleated RBC/100 WBC (Bld) [Ratio] 0.0 % 0.0 per 100 WBC [facility] Platelet mean volume (Bld) [Entitic vol] 11.5 fL 8.1 - 13.5 fL [facility] Platelets (Bld) [#/Vol] 342 10*3/uL [facility] RBC (Bld) [#/Vol] 3.65 10*6/uL Low 3.95 - 5.11 m/uL [facility] Segmented neutrophils/100 WBC (Bld) 12.77 % High [facility] WBC other (Bld) [#/Vol] 15.2 High [facility] CBC with Diffon 02-27-2024 Abs. Basophil 0.46 k/uL High 0.0-0.2 [facility] Comment on above: Performed By: #### V BG #### [facility] [address] [place] [address] Vocational Placement Specialist: Patti Swanson MD Abs.Imm.Granulocyte 0.15 k/uL Normal 0.00-0.30 [facility] Comment on above: Performed By: #### V BG #### [facility] [address] [place], [place] [id number] Vocational Placement Specialist: Patti Swanson MD Abs.Neutrophil (Seg) 12.77 k/uL High 1.50-8.10 [facility] Comment on above: Performed By: #### V BG #### [facility] [address] [place], [facility]83 Vocational Placement Specialist: Patti Swanson MD Basophils/100 WBC (Bld) 3 % High 0-2 [facility] Comment on above: Performed By: #### V BG #### [address] [place], [facility]83 Vocational Placement Specialist: Patti Swanson MD Eosinophils (Bld) [#/Vol] 0.00 10*3/uL Normal 0.00-0.44 [facility] Comment on above: Performed By: #### V BG #### [facility] [address] [place] [address] Dr. [place], [facility]83 Vocational Placement Specialist: Patti Swanson MD Eosinophils/100 WBC (Bld) 0 % Low 1-4 [facility] Comment on above: Performed By: #### V BG #### [address] [place], [facility]83 Vocational Placement Specialist: Patti Swanson MD Immature granulocytes/100 WBC (Bld) 1 % High 0 [facility] Comment on above: Performed By: #### V BG #### [facility] [address] [place] [address] Dr. [place], [facility]83 Vocational Placement Specialist: Patti Swanson MD Lymphocytes (Bld) [#/Vol] 1.52 10*3/uL Normal 1.10-3.70 [facility] Comment on above: Performed By: #### V BG #### [facility] [address] [place] [address] Dr. [place], [facility]83 Vocational Placement Specialist: Patti Swanson MD Lymphocytes/100 WBC (Bld) 10 % Low 24-43 [facility] Comment on above: Performed By: #### V BG #### [facility] [address] [place], [place] [id number] Vocational Placement Specialist: Patti Swanson MD Monocytes (Bld) [#/Vol] 0.30 10*3/uL Normal 0.10-1.20 [facility] Comment on above: Performed By: #### V BG #### [facility] [address] [place], [place] [address]83 Vocational Placement Specialist: Patti Swanson MD Monocytes/100 WBC (Bld) 2 % Low 3-12 [facility] Comment on above: Performed By: #### V BG #### [address] [place], [place] [id number] Vocational Placement Specialist: Patti Swanson MD Morphology Tc (Bld) [Interp] ANISOCYTOSIS Normal [facility] Comment on above: Result Comment: PRES ENT Performed By: #### V BG #### [address] [place], [place] [id number] Vocational Placement Specialist: Patti Swanson MD Neutrophil (Seg) 84 % High 36-65 [facility] Comment on above: Performed By: #### V BG #### [facility] [address] [place] [address] Dr. [place], [facility]83 Vocational Placement Specialist: Patti Swanson MD Erythrocyte distribution width (RBC) [Ratio] 13.3 % Normal 11.8-14.4 [facility] Comment on above: Performed By: #### V BG #### [address] [place] [address] Vocational Placement Specialist: Patti Swanson MD Hematocrit (Bld) [Volume fraction] 34.3 % Low 36.3-47.1 [facility] Comment on above: Performed By: #### V BG #### [address] [place], [place] [id number] Vocational Placement Specialist: Patti Swanson MD Hemoglobin (Bld) [Mass/Vol] 10.9 g/dL [place] 11.9-15.1 [facility] Comment on above: Performed By: #### V BG #### [address] [place], [facility]83 Vocational Placement Specialist: Patti Swanson MD MCH (RBC) [Entitic mass] 29.9 pg Normal 25.2-33.5 [facility] Comment on above: Performed By: #### V BG #### [address] [place] [id number] Vocational Placement Specialist: Patti Swanson MD MCHC (RBC) [Mass/Vol] 31.8 g/dL Normal 28.4-34.8 [facility] Comment on above: Performed By: #### V BG #### [address] [place], [facility]83 Vocational Placement Specialist: Patti Swanson MD MCV (RBC) [Entitic vol] 94.0 fL Normal 82.6-102.9 [facility] Comment on above: Performed By: #### V BG #### [address] [place], [facility]83 Vocational Placement Specialist: Patti Swanson MD NRBC Automated 0.0 per 100 WBC Normal 0.0 [facility] Comment on above: Performed By: #### V BG #### [address] [place], [facility]83 Vocational Placement Specialist: Patti Swanson MD Platelet mean volume (Bld) [Entitic vol] 11.5 fL Normal 8.1-13.5 [facility] Comment on above: Performed By: #### V BG #### [address] [place] [address] Vocational Placement Specialist: Patti Swanson MD Platelets (Bld) [#/Vol] 342 10*3/uL Normal 138-453 [facility] Comment on above: Performed By: #### V BG #### [facility] [address] [place] [address] Vocational Placement Specialist: Patti Swanson MD RBC (Bld) [#/Vol] 3.65 10*6/uL [place] 3.95-5.11 [facility] Comment on above: Performed By: #### V BG #### [facility] [address] [place] [address] Vocational Placement Specialist: Patti Swanson MD WBC (Bld) [#/Vol] 15.2 10*3/uL High 3.5-11.3 [facility] Comment on above: Performed By: #### V BG #### [address] [place] [address] Vocational Placement Specialist: Patti Swanson MD Comp Metabolic Profon 2023 Albumin [Mass/Vol] 4.3 g/dL Normal 3.5-5.2 [facility] Comment on above: Performed By: #### V BG #### [facility] [address] [place], [place] [id number] Vocational Placement Specialist: Patti Swanson MD Albumin/Glob Ratio 1.5 Normal 1.0-2.5 [facility] Comment on above: Performed By: #### V BG #### [facility] [address] [place] [address] Vocational Placement Specialist: Patti Swanson MD Alkaline Phos 128 U/L High 35-104 [facility] Comment on above: Performed By: #### V BG #### [facility] [address] [place] [address] Vocational Placement Specialist: Patti Swanson MD ALT [Catalytic activity/Vol] 34 U/L Normal 10-35 [facility] Comment on above: Performed By: #### V BG #### [facility] [address] [place], [place] [id number] Vocational Placement Specialist: Patti Swanson MD Anion gap [Moles/Vol] 14 mmol/L Normal 9-16 [facility] Comment on above: Performed By: #### V BG #### [facility] [address] [place], [place] [address]83 Vocational Placement Specialist: Patti Swanson MD AST [Catalytic activity/Vol] 26 U/L Normal 10-35 [facility] Comment on above: Performed By: #### V BG #### [facility] [address] [place], [place] [address]83 Vocational Placement Specialist: Patti Swanson MD Bilirubin [Mass/Vol] mg/dL Normal 0.00-1.20 [facility] Comment on above: Performed By: #### V BG #### [facility] [address] [place], [place] [id number] Vocational Placement Specialist: Patti Swanson MD BUN/CRE Ratio 17 Normal 9-20 [facility] Comment on above: Performed By: #### V BG #### [facility] [address] [place], [place] [phone] Vocational Placement Specialist: Patti Swanson MD Calcium [Mass/Vol] 9.0 mg/dL Normal 8.6-10.4 [facility] Comment on above: Performed By: #### V BG #### [facility] [address] [place], [place] [id number] Vocational Placement Specialist: Patti Swanson MD Chloride [Moles/Vol] 106 mmol/L Normal 98-107 [facility] Comment on above: Performed By: #### V BG #### [facility] [address] [place], [place] [phone] Vocational Placement Specialist: Patti Swanson MD CO2 [Moles/Vol] 19 mmol/L Low 20-31 [facility] Comment on above: Performed By: #### V BG #### [facility] [address] [place] [address] Vocational Placement Specialist: Patti Swanson MD Creatinine [Mass/Vol] 2.0 mg/dL High 0.50-0.90 [facility] Comment on above: Performed By: #### V BG #### [facility] [address] [place] [address] Vocational Placement Specialist: Patti Swanson MD GFR/1.73 sq M.predicted among non-blacks MDRD (S/P/Bld) [Vol rate/Area] 33 mL/min/{1.73_m2} Low >60 [facility] Comment on above: Result Comment: These results are not intended for use in patients <18 years of age. eGFR results are calculated without a race factor using the 2020 CKD-EPI equation. Careful clinical correlation is recommended, particularly when comparing to results calculated using previous equations. The CKD-EPI equation is less accurate in patients with extremes of muscle mass, extra-renal metabolism of creatine, excessive creatine ingestion, or following therapy that affects renal tubular secretion. Performed By: #### V BG #### [facility] [address] [place] [address] [place] [address] Vocational Placement Specialist: Patti Swanson MD Glucose [Mass/Vol] 166 mg/dL High 74-99 [facility] Comment on above: Performed By: #### V BG #### [facility] [address] [place] [address] Vocational Placement Specialist: Patti Swanson MD Potassium [Moles/Vol] 4.1 mmol/L Normal 3.7-5.3 [facility] Comment on above: Performed By: #### V BG #### [facility] [address] [place] [address] Vocational Placement Specialist: Patti Swanson MD Protein [Mass/Vol] 7.2 g/dL Normal 6.6-8.7 [facility] Comment on above: Performed By: #### V BG #### [facility] [address] [place] [address] Vocational Placement Specialist: Patti Swanson MD Sodium [Moles/Vol] 139 mmol/L Normal 136-145 [facility] Comment on above: Performed By: #### V BG #### [facility] [address] [place] [address] Vocational Placement Specialist: Patti Swanson MD Urea nitrogen [Mass/Vol] 33 mg/dL High 6-20 [facility] Comment on above: Performed By: #### V BG #### [facility] [address] [place] [address] Vocational Placement Specialist: Patti Swanson MD Comprehensive Metabolic Pane [facility] 02-27-2024 Albumin [Mass/Vol] 4.3 g/dL 3.5 - 5.2 g/dL [facility] Albumin/Globulin [Mass ratio] 1.5 {ratio} 1.0 - 2.5 [facility] ALP [Catalytic activity/Vol] 128 U/L High 35 - 104 U/L [facility] ALT [Catalytic activity/Vol] 34 U/L 10 - 35 U/L [facility] Anion gap [Moles/Vol] 14 mmol/L 9 - 16 mmol/L [facility] AST [Catalytic activity/Vol] 26 U/L 10 - 35 U/L [facility] Bilirubin [Mass/Vol] mg/dL 0.00 - 1.20 mg/dL [facility] Calcium [Mass/Vol] 9.0 mg/dL 8.6 - 10. 4 mg/dL [facility] Chloride [Moles/Vol] 106 mmol/L 98 - 10 7 mmol/L [facility] CO2 [Moles/Vol] 19 mmol/L Low 20 - 31 mmol/L [facility] Creatinine [Mass/Vol] 2.0 mg/dL High 0.50 - 0.90 mg/dL [facility] Est, Glom Filt Rate 33 Low - [facility] Comment on above: These results are not intended for use in patients <18 years of age. eGFR results are calculated without a race factor using the 2020 CKD-EPI equation. Careful clinical correlation is recommended, particularly when comparing to results calculated using previous equations. The CKD-EPI equation is less accurate in patients with extremes of muscle mass, extra-renal metabolism of creatine, excessive creatine ingestion, or following therapy that affects renal tubular secretion. Glucose [Mass/Vol] 166 mg/dL High 74 - 99 mg/dL [facility] Potassium [Moles/Vol] 4.1 mmol/L 3.7 - 5.3 mmol/L [facility] Protein [Mass/Vol] 7.2 g/dL 6.6 - 8.7 g/dL [facility] Sodium [Moles/Vol] 139 mmol/L 136 - 145 mmol/L [facility] Urea nitrogen [Mass/Vol] 33 mg/dL High 6 - 20 mg/dL [facility] Urea nitrogen/Creatinine [Mass ratio] 17 mg/mg 9 - 20 [facility] Lactic Acidon 02-27-2024 Lactate (BldV) [Moles/Vol] 2.0 mmol/L 0.5 - 2.2 mmol/L [facility] Lactate [Moles/Vol] 2.0 mmol/L Normal 0.5-2.2 [facility] Comment on above: Performed By: #### L ACTIC #### [facility] [address] [place] [address] Vocational Placement Specialist: Patti Swanson MD Lipaseon 02-27-2024 Lipase [Catalytic activity/Vol] 7 U/L Low 13 - 60 U/L [facility] Lipase [Catalytic activity/Vol] 7 U/L Low 13-60 [facility] Comment on above: Performed By: #### V BG #### [facility] [address] [place] [address] Vocational Placement Specialist: Patti Swanson MD No Panel Informationon 02-26 Interpretation and review of laboratory results Abnormal [facility] BASIC METABOLIC PANLon 02-13 Anion gap [Moles/Vol] 5 mmol/L Normal 5-15 [facility] Comment on above: Performed By: #### Bob SOMERS, 06520-5 #### [facility] ([id number]) [address], [address] [place] [address] Calcium [Mass/Vol] 8.1 mg/dL Low 8.5-10.5 [facility] Comment on above: Performed By: #### Bob SOMERS, 02642-5 #### [facility] ([id number]) [address], [address] [place] [address] Chloride [Moles/Vol] 107 mmol/L Normal 98-[address] [facility] Comment on above: Performed By: #### Bob SOMERS, 60034-7 #### [facility] ([id number]) [address], [facility] [address] [place] [address] CO2 [Moles/Vol] 22 mmol/L Normal 22-32 [facility] Comment on above: Performed By: #### Bob SOMERS, 12373-8 #### [facility] ([id number]) [address] [address] [place] [address] Creatinine [Mass/Vol] 1.91 mg/dL High 0.40-1.00 [facility] Comment on above: Result Comment: METH OD TRACEABLE TO IDMS STANDARD Performed By: #### Bob SOMERS, 56267-4 #### [facility] ([id number]) [address], [address] [place] [address] GFR/1.73 sq M.predicted among non-blacks MDRD (S/P/Bld) [Vol rate/Area] 34 mL/min/{1.73_m2} Low >59 [facility] Comment on above: Result Comment: Reported eGFR is based on the CKD-EPI 2020 equation that does not use a race coefficient. Performed By: #### Bob SOMERS, 95994-0 #### [facility] ([id number]) [address], [address] [place] [address] Glucose [Mass/Vol] 147 mg/dL High 65-99 [facility] Comment on above: Performed By: #### Bob SOMERS, 70612-3 #### [facility] ([id number]) [address], [address] [place] [address] Potassium [Moles/Vol] 4.3 mmol/L Normal 3.5-5.0 [facility] Comment on above: Performed By: #### Bob SOMERS, 92273-5 #### [facility] ([id number]) [address] [place] [address] Sodium [Moles/Vol] 134 mmol/L Normal 134-146 [facility] Comment on above: Performed By: #### Bob SOMERS, 49595-6 #### [facility] ([id number]) [address], [address] [place] [address] Urea nitrogen [Mass/Vol] 32 mg/dL High 5-23 [facility] Comment on above: Performed By: #### Bob SOMERS, 17678-2 #### [facility] ([id number]) [address], [address] [facility] [place] [address] CBC AND AUTO DIFFon 02-14-20 24 ABSOLUTE BASOPHIL 0.1 X10E9/L Normal 0.0-0.2 [facility] Comment on above: Performed By: #### C OVFLR #### [facility] ([id number]) [address] [place] [address] ABSOLUTE NEUTROPHIL 6.5 X10E9/L Normal 1.5-6.[address] [facility] Comment on above: Performed By: #### C OVFLR #### [facility] ([id number]) [address] [place] [address] Basophils/100 WBC (Bld) 0.9 % Normal [facility] [place] Comment on above: Performed By: #### C OVFLR #### [facility] ([id number]) [address] [place] [address] 19910 Eosinophils (Bld) [#/Vol] 0.1 10*3/uL Normal 0.0-0.4 [facility] [place] Comment on above: Performed By: #### C OVFLR #### [facility] ([id number]) [address] [place] [address] 10083 Eosinophils/100 WBC (Bld) 1.3 % Normal [facility] [place] Comment on above: Performed By: #### C OVFLR #### [facility] ([id number]) [address] [place] [address] 66790 Erythrocyte distribution width (RBC) [Ratio] 14.2 % Normal 11.5-15.0 [facility] [place] Comment on above: Performed By: #### C OVFLR #### [facility] ([id number]) [address] [place] [address] 79661 Hematocrit (Bld) [Volume fraction] 26.5 % Low 35-47 [facility] [place] Comment on above: Performed By: #### C OVFLR #### [facility] ([id number]) [address] [place] [address] 34862 Hemoglobin (Bld) [Mass/Vol] 8.7 g/dL Low 11.7-15.5 [facility] [place] Comment on above: Performed By: #### C OVFLR #### [facility] ([id number]) [address] [place] [address] 16221 Lymphocytes (Bld) [#/Vol] 2.8 10*3/uL Normal 1.0-3.5 [facility] [place] Comment on above: Performed By: #### C OVFLR #### [facility] ([id number]) [address] [place] [address] 26037 Lymphocytes/100 WBC (Bld) 27.2 % Normal [facility] [place] Comment on above: Performed By: #### C OVFLR #### [facility] ([id number]) [address] [place] [address] 10868 MCH (RBC) [Entitic mass] 31.0 pg Normal 27-34 [facility] [place] Comment on above: Performed By: #### C OVFLR #### [facility] ([id number]) [address] [place] [address] 96003 MCHC (RBC) [Mass/Vol] 32.8 g/dL Normal 32-36 [facility] Comment on above: Performed By: #### C OVFLR #### [facility] ([id number]) [address] [place] [address] 12987 MCV (RBC) [Entitic vol] 95 fL Normal 80-100 [facility] [place] Comment on above: Performed By: #### C OVFLR #### [facility] ([id number]) [address] [place] [address] 63371 Monocytes (Bld) [#/Vol] 0.7 10*3/uL Normal 0-0.9 [facility] [place] Comment on above: Performed By: #### C OVFLR #### [facility] ([id number]) [address] [place] [address] 45022 Monocytes/100 WBC (Bld) 6.6 % Normal [facility] [place] Comment on above: Performed By: #### C OVFLR #### [facility] ([id number]) [address] [place] [address] 74661 Neutrophils/100 WBC (Bld) 64.0 % Normal [facility] [place] Comment on above: Performed By: #### C OVFLR #### [facility] ([id number]) [address] [place] [address] 53873 Platelet mean volume (Bld) [Entitic vol] 9.6 fL Normal 7-12 [facility] [place] Comment on above: Performed By: #### C OVFLR #### [facility] ([id number]) [address] [place] [address] 27648 Platelets (Bld) [#/Vol] 220 10*3/uL Normal 150-450 [facility] [place] Comment on above: Performed By: #### C OVFLR #### [facility] ([id number]) [address] [place] [address] 21075 RBC COUNT 2.80 X10E12/L Low 3.80-5.20 [facility] [place] Comment on above: Performed By: #### C OVFLR #### [facility] ([id number]) [address] [place] [address] 23804 WBC (Bld) [#/Vol] 10.1 10*3/uL Normal 4.0-11.0 [facility] Comment on above: Performed By: #### C OVFLR #### [facility] ([id number]) [address] [place] [address] 01856 MAGNESIUMon 02-14-2024 Magnesium [Mass/Vol] 1.9 mg/dL Normal 1.8-2.[address] [facility] Comment on above: Performed By: #### C LIZBET, 62050-5 #### [facility] ([id number]) [address], [address] [place] [address] BASIC METABOLIC PANLon 02-12 Anion gap [Moles/Vol] 5 mmol/L Normal 5-15 [facility] Comment on above: Performed By: #### C OVFLR #### [facility] ([id number]) [address] [place] [address] 70921 Calcium [Mass/Vol] 7.9 mg/dL Low 8.5-10.5 [facility] Comment on above: Performed By: #### C OVFLR #### [facility] ([id number]) [address] [place] [address] 39339 Chloride [Moles/Vol] 107 mmol/L Normal 98-[address] [facility] Comment on above: Performed By: #### C OVFLR #### [facility] ([id number]) [address] [place] [address] 13805 CO2 [Moles/Vol] 21 mmol/L Low 22-32 [facility] [place] Comment on above: Performed By: #### C OVFLR #### [facility] ([id number]) [address] [place] [address] 80513 Creatinine [Mass/Vol] 2.35 mg/dL High 0.40-1.00 [facility] Comment on above: Result Comment: METH OD TRACEABLE TO IDMS STANDARD Performed By: #### C OVFLR #### [facility] ([id number]) [address] [place] [address] 22037 GFR/1.73 sq M.predicted among non-blacks MDRD (S/P/Bld) [Vol rate/Area] 27 mL/min/{1.73_m2} Low >59 [facility] [place] Comment on above: Result Comment: Reported eGFR is based on the CKD-EPI 1 equation that does not use a race coefficient. Performed By: #### C OVFLR #### [facility] ([id number]) [address] [place] [address] 66785 Glucose [Mass/Vol] 166 mg/dL High 65-99 [facility] Comment on above: Performed By: #### C OVFLR #### [facility] ([id number]) [address] [place] [address] 79980 Potassium [Moles/Vol] 4.1 mmol/L Normal 3.5-5.0 [facility] Comment on above: Performed By: #### C OVFLR #### [facility] ([id number]) [address] [place] [address] 04551 Sodium [Moles/Vol] 133 mmol/L Low 134-146 [facility] Comment on above: Performed By: #### C OVFLR #### [facility] ([id number]) [address] [place] [address] 06103 Urea nitrogen [Mass/Vol] 36 mg/dL High 5-23 [facility] [place] Comment on above: Performed By: #### C OVFLR #### [facility] ([id number]) [address] [place] [address] 60595 CBC AND AUTO DIFFon 02-13-20 24 ACANTHOCYTE 1+ Abnormal NONE [facility] [place] Comment on above: Performed By: #### C OVFLR #### [facility] ([id number]) [address] [place] [address] 20953 Band form neutrophils/100 WBC (Bld) 1.0 % Normal [facility] [place] Comment on above: Performed By: #### C OVFLR #### [facility] ([id number]) [address] [place] [address] 37548 Eosinophils (Bld) [#/Vol] 0.1 10*3/uL Normal 0.0-0.4 [facility] [place] Comment on above: Performed By: #### C OVFLR #### [facility] ([id number]) [address] [place] [address] 00297 Eosinophils/100 WBC (Bld) 1.0 % Normal [facility] [place] Comment on above: Performed By: #### C OVFLR #### [facility] ([id number]) [address] [place] [address] 39013 Erythrocyte distribution width (RBC) [Ratio] 14.1 % Normal 11.5-15.0 [facility] [place] Comment on above: Performed By: #### C OVFLR #### [facility] ([id number]) [address] [place] [address] 57005 Hematocrit (Bld) [Volume fraction] 27.9 % Low 35-47 [facility] [place] Comment on above: Performed By: #### C OVFLR #### [facility] ([id number]) [address] [place] [address] 78799 Hemoglobin (Bld) [Mass/Vol] 8.9 g/dL Low 11.7-15.5 [facility] [place] Comment on above: Performed By: #### C OVFLR #### [facility] ([id number]) [address] [place] [address] 73752 LYMPHOCYTE, ATYPICAL 3.0 % Normal [facility] Comment on above: Performed By: #### C OVFLR #### [facility] ([id number]) [address] [place] [address] 51242 Lymphocytes (Bld) [#/Vol] 2.5 10*3/uL Normal 1.0-3.5 [facility] [place] Comment on above: Performed By: #### C OVFLR #### [facility] ([id number]) [address] [place] [address] 76325 Lymphocytes/100 WBC (Bld) 17.0 % Normal [facility] [place] Comment on above: Performed By: #### C OVFLR #### [facility] ([id number]) [address] [place] [address] 19396 MCH (RBC) [Entitic mass] 30.1 pg Normal 27-34 [facility] [place] Comment on above: Performed By: #### C OVFLR #### [facility] ([id number]) [address] [place] [address] 76817 MCHC (RBC) [Mass/Vol] 31.8 g/dL Low 32-36 [facility] Comment on above: Performed By: #### C OVFLR #### [facility] ([id number]) [address] [place] [address] 39545 MCV (RBC) [Entitic vol] 95 fL Normal 80-100 [facility] [place] Comment on above: Performed By: #### C OVFLR #### [facility] ([id number]) [address] [place] [address] 65646 Monocytes (Bld) [#/Vol] 0.5 10*3/uL Normal 0-0.9 [facility] [place] Comment on above: Performed By: #### C OVFLR #### [facility] ([id number]) [address] [place] [address] 49292 Monocytes/100 WBC (Bld) 4.0 % Normal [facility] [place] Comment on above: Performed By: #### C OVFLR #### [facility] ([id number]) [address] [place] [address] 94689 Neutrophils (Bld) [#/Vol] 9.0 10*3/uL High 1.5-6.6 [facility] [place] Comment on above: Performed By: #### C OVFLR #### [facility] ([id number]) [address] [place] [address] 30982 OVALOCYTE 1+ Abnormal NONE [facility] [place] Comment on above: Performed By: #### C OVFLR #### [facility] ([id number]) [address] [place] [address] 23170 Platelet mean volume (Bld) [Entitic vol] 9.7 fL Normal 7-12 [facility] [place] Comment on above: Performed By: #### C OVFLR #### [facility] ([id number]) [address] [place] [address] 90743 Platelets (Bld) [#/Vol] 225 10*3/uL Normal 150-450 [facility] [place] Comment on above: Performed By: #### C OVFLR #### [facility] ([id number]) [address] [place] [address] 85236 RBC COUNT 2.95 X10E12/L Low 3.80-5.20 [facility] [place] Comment on above: Performed By: #### C OVFLR #### [facility] ([id number]) [address] [place] [address] 38511 SEG NEUTROPHIL 74.0 % Normal [facility] [place] Comment on above: Performed By: #### C OVFLR #### [facility] ([id number]) [address] [place] [address] 94243 WBC (Bld) [#/Vol] 12.1 10*3/uL High 4.0-11.0 [facility] Comment on above: Performed By: #### C OVFLR #### [facility] ([id number]) [address] [place] [address] 88133 MAGNESIUMon 02-13-2024 Magnesium [Mass/Vol] 1.9 mg/dL Normal 1.8-2.[address] [facility] Comment on above: Performed By: #### C OVFLR #### [facility] ([id number]) [address] [place] [address] 60462 BASIC METABOLIC PANLon 02-11 Anion gap [Moles/Vol] 6 mmol/L Normal 5-15 [facility] Comment on above: Performed By: #### C LIZBET, 3040-3, 81992-6, 11955-1, CBCA #### [facility] ([id number]) [address] [place] [address] 32203 Calcium [Mass/Vol] 8.1 mg/dL Low 8.5-10.5 [facility] Comment on above: Performed By: #### C LIZBET, 3039-3, , 34492-1, CBCA #### [facility] ([id number]) [address] [place] [address] 06487 Chloride [Moles/Vol] 104 mmol/L Normal 98-[address] [facility] Comment on above: Performed By: #### C LIZBET, 3039-3, , , CBCA #### [facility] ([id number]) [address] [place] [address] 21119 CO2 [Moles/Vol] 21 mmol/L Low 22-32 [facility] [place] Comment on above: Performed By: #### C LIZBET, 3039-08, , , CBCA #### [facility] ([id number]) [address] [place] [address] 50555 Creatinine [Mass/Vol] 2.36 mg/dL High 0.40-1.00 [facility] Comment on above: Result Comment: METH OD TRACEABLE TO IDMS STANDARD Performed By: #### C LIZBET, 3039-3, , , CBCElsa #### [facility] ([id number]) [address] [place] [address] 90763 GFR/1.73 sq M.predicted among non-blacks MDRD (S/P/Bld) [Vol rate/Area] 27 mL/min/{1.73_m2} Low >59 [facility] [place] Comment on above: Result Comment: Reported eGFR is based on the CKD-EPI 2020 equation that does not use a race coefficient. Performed By: #### C LIZBET, 3039-3, , , CBCA #### [facility] ([id number]) [address] [place] [address] 83469 Glucose [Mass/Vol] 178 mg/dL High 65-99 [facility] Comment on above: Performed By: #### C LIZBET, 3039-3, 97237-7, 98597-9, CBCA #### [facility] ([id number]) [address] [place] [address] 53556 Potassium [Moles/Vol] 3.9 mmol/L Normal 3.5-5.0 [facility] Comment on above: Performed By: #### C MP, 3040-3, 50281-7, 88035-4, CBCA #### [facility] ([id number]) [address] [place] [address] 39752 Sodium [Moles/Vol] 131 mmol/L Low 134-146 [facility] Comment on above: Performed By: #### C LIZBET, 3040-3, 55154-8, 68291-8, CBCA #### [facility] ([id number]) [address] [place] [address] 08479 Urea nitrogen [Mass/Vol] 38 mg/dL High 5-23 [facility] [place] Comment on above: Performed By: #### C LIZBET, 3040-3, 40050-9, 75099-3, CBCA #### [facility] ([id number]) [address] [place] [address] 18213 CBC AND AUTO DIFFon 02-12-20 24 ABSOLUTE BASOPHIL 0.2 X10E9/L Normal 0.0-0.2 [facility] Comment on above: Performed By: #### C OVFLR #### [facility] ([id number]) [address] [place] [address] 45879 ABSOLUTE NEUTROPHIL 7.3 X10E9/L High 1.5-6.[address] [facility] Comment on above: Performed By: #### C OVFLR #### [facility] ([id number]) [address] [place] [address] 29585 Basophils/100 WBC (Bld) 1.6 % Normal [facility] [place] Comment on above: Performed By: #### C OVFLR #### [facility] ([id number]) [address] [place] [address] 92546 Eosinophils (Bld) [#/Vol] 0.1 10*3/uL Normal 0.0-0.4 [facility] [place] Comment on above: Performed By: #### C OVFLR #### [facility] ([id number]) [address] [place] [address] 14499 Eosinophils/100 WBC (Bld) 1.1 % Normal [facility] [place] Comment on above: Performed By: #### C OVFLR #### [facility] ([id number]) [address] [place] [address] 53666 Erythrocyte distribution width (RBC) [Ratio] 14.3 % Normal 11.5-15.0 [facility] [place] Comment on above: Performed By: #### C OVFLR #### [facility] ([id number]) [address] [place] [address] 31832 Hematocrit (Bld) [Volume fraction] 28.4 % Low 35-47 [facility] [place] Comment on above: Performed By: #### C OVFLR #### [facility] ([id number]) [address] [place] [address] 39855 Hemoglobin (Bld) [Mass/Vol] 9.1 g/dL Low 11.7-15.5 [facility] [place] Comment on above: Performed By: #### C OVFLR #### [facility] ([id number]) [address] [place] [address] 12544 Lymphocytes (Bld) [#/Vol] 4.0 10*3/uL High 1.0-3.5 [facility] [place] Comment on above: Performed By: #### C OVFLR #### [facility] ([id number]) [address] [place] [address] Lymphocytes/100 WBC (Bld) 32.3 % Normal [facility] [place] Comment on above: Performed By: #### C OVFLR #### [facility] ([id number]) [address] [place] [address] 02927 MCH (RBC) [Entitic mass] 30.4 pg Normal 27-34 [facility] [place] Comment on above: Performed By: #### C OVFLR #### [facility] ([id number]) [address] [place] [address] [place] [address] MCHC (RBC) [Mass/Vol] 32.2 g/dL Normal 32-36 [facility] Comment on above: Performed By: #### C OVFLR #### [facility] ([id number]) [address] [place] [address] 01175 MCV (RBC) [Entitic vol] 94 fL Normal 80-100 [facility] [place] Comment on above: Performed By: #### C OVFLR #### [facility] ([id number]) [address] [place] [address] 08831 Monocytes (Bld) [#/Vol] 0.8 10*3/uL Normal 0-0.9 [facility] [place] Comment on above: Performed By: #### C OVFLR #### [facility] ([id number]) [address] [place] [address] 65276 Monocytes/100 WBC (Bld) 6.3 % Normal [facility] [place] Comment on above: Performed By: #### C OVFLR #### [facility] ([id number]) [address] [place] [address] 90502 Neutrophils/100 WBC (Bld) 58.7 % Normal [facility] [place] Comment on above: Performed By: #### C OVFLR #### [facility] ([id number]) [address] [place] [address] 00380 Platelet mean volume (Bld) [Entitic vol] 9.4 fL Normal 7-12 [facility] [place] Comment on above: Performed By: #### C OVFLR #### [facility] ([id number]) [address] [place] [address] 40683 Platelets (Bld) [#/Vol] 224 10*3/uL Normal 150-450 [facility] [place] Comment on above: Performed By: #### C OVFLR #### [facility] ([id number]) [address] [place] [address] 76165 RBC COUNT 3.00 X10E12/L Low 3.80-5.20 [facility] [place] Comment on above: Performed By: #### C OVFLR #### [facility] ([id number]) [address] [place] [address] 34975 WBC (Bld) [#/Vol] 12.4 10*3/uL High 4.0-11.0 [facility] Comment on above: Performed By: #### C OVFLR #### [facility] ([id number]) [address] [place] [address] 29713 CRP High sensitivity method [Mass/Vol]on 2024 HS CRP 0.116 mg/dL Normal 0.000-0.74 4 [facility] [place] Comment on above: Result Comment: Hs-CRP FOR CARDIAC RISK ASSESSMENT: By this method, 75% of hs-CRP values in healthy adults will be <0.37mg/dL. Prospective studies have shown that hs-CRP values in the upper quartile of an apparently healthy population are associated with an approximate 3-fold increase in risk of developing cardio- vascular disease. This increase in risk is even more pronounced in the presence of an elevated Cholesterol/HDL-C ratio (>5.5). Hs-CRP is a nonspecific marker of inflammation and can be elevated in other conditions. Performed By: #### C OVFLR #### [facility] ([id number]) [address] [place] [address] 03983 MAGNESIUMon 2024 Magnesium [Mass/Vol] 2.2 mg/dL Normal 1.8-2.[address] [facility] Comment on above: Performed By: #### C OVFLR #### [facility] ([id number]) [address] [place] [address] 20826 Magnesium [Mass/Vol] 1.7 mg/dL Low 1.8-2.[address] [facility] Comment on above: Performed By: #### C OVFLR #### [facility] ([id number]) [address] [place] [address] 46989 URINALYSISon 2024 Bilirubin Ql (U) Negative Normal NEG [facility] Comment on above: Performed By: #### C OVFLR #### [facility] ([id number]) [address] [place] [address] 78717 BLOOD/HGB Trace Abnormal NEG [facility] [place] Comment on above: Performed By: #### C OVFLR #### [facility] ([id number]) [address] [place] [address] 31341 Color (U) YELLOW Normal YELLOW [facility] [place] Comment on above: Performed By: #### C OVFLR #### [facility] ([id number]) [address] [place] [address] 70782 Glucose Ql (U) Negative Normal NEG [facility] [place] Comment on above: Performed By: #### C OVFLR #### [facility] ([id number]) [address] [place] [address] 14718 Ketones Ql (U) Negative Normal NEG [facility] [place] Comment on above: Performed By: #### C OVFLR #### [facility] ([id number]) [address] [place] [address] 38132 Leukocyte esterase Test strip Ql (U) Negative Normal NEG [facility] [place] Comment on above: Performed By: #### C OVFLR #### [facility] ([id number]) [address] [place] [address] 64452 Nitrite Ql (U) Negative Normal NEG [facility] [place] Comment on above: Performed By: #### C OVFLR #### [facility] ([id number]) [address] [place] [address] 89743 pH (U) 6.0 [pH] Normal 5.0-8.5 [facility] [place] Comment on above: Performed By: #### C OVFLR #### [facility] ([id number]) [address] [place] [address] 74483 Protein Ql (U) Negative Normal NEG [facility] [place] Comment on above: Performed By: #### C OVFLR #### [facility] ([id number]) [address] [place] [address] 78992 R.B.CELLS 2 /hpf Normal 0-5 [facility] [place] Comment on above: Performed By: #### C OVFLR #### [facility] ([id number]) [address] [place] [address] 59088 Specific gravity (U) [Rel density] 1.025 Normal 1.003-1.03 5 [facility] [place] Comment on above: Performed By: #### C OVFLR #### [facility] ([id number]) [address] [place] [address] [place] [address] SQUAMOUS EPITHELIUM 4 /hpf Normal 0-5 [facility] Comment on above: Performed By: #### C OVFLR #### [facility] ([id number]) [address] [place] [address] [place] [address] TURBIDITY CLEAR Normal CLEAR [facility] [place] Comment on above: Performed By: #### C OVFLR #### [facility] ([id number]) [address] [place] [address] 66946 Urobilinogen Qn (U) 0.2 {Edgar'U}/dL Normal <1.1 [facility] [place] Comment on above: Performed By: #### C OVFLR #### [facility] ([id number]) [address] [place] [address]70[address] W.B.CELLS 3 /hpf Normal 0-5 [facility] Comment on above: Performed By: #### C OVFLR #### [facility] ([id number]) [address] [place] [address]27 URINE CULTUREon 2024 Bacteria identified Cx Nom (U) CULTURE RESULTS NO GROWTH AT <1000 CFU/mL Normal [facility] Comment on above: Performed By: #### C LIZBET, 68457-2 #### [facility] ([id number]) [address] [facility], [address] [place] [address] CBC AND AUTO DIFFon 02-11-20 24 ABSOLUTE BASOPHIL 0.1 X10E9/L Normal 0.0-0.2 [facility] Comment on above: Performed By: #### C LIZBET, 3040-3, 63692-7, 37891-9, CBCA #### [facility] ([id number]) [address] [place] [address]61 ABSOLUTE NEUTROPHIL 6.3 X10E9/L Normal 1.5-6.[address] [facility] Comment on above: Performed By: #### C LIZBET, 3040-3, 27029-9, 10974-9, CBCA #### [facility] ([id number]) [address] [place] [address] 59028 Basophils/100 WBC (Bld) 1.4 % Normal [facility] Comment on above: Performed By: #### C LIZBET, 3040-3, 13081-5, 09441-5, CBCA #### [facility] ([id number]) [address] [place] [address] 19457 Eosinophils (Bld) [#/Vol] 0.1 10*3/uL Normal 0.0-0.4 [facility] Comment on above: Performed By: #### C LIZBET, 3040-3, 16646-8, 64134-2, CBCA #### [facility] ([id number]) [address] [place] [address] 77752 Eosinophils/100 WBC (Bld) 1.3 % Normal [facility] Comment on above: Performed By: #### C LIZBET, 0-3, , , CBCA #### [facility] ([id number]) [address] [place] [address] 17734 Erythrocyte distribution width (RBC) [Ratio] 13.8 % Normal 11.5-15.0 [facility] Comment on above: Performed By: #### C LIZBET, 0-3, , 33669-7, CBCA #### [facility] ([id number]) [address] [place] [address] 56969 Hematocrit (Bld) [Volume fraction] 34.7 % Low 35-47 [facility] Comment on above: Performed By: #### C LIZBET, 0-3, , 69532-9, CBCA #### [facility] ([id number]) [address] [place] [address] 08944 Hemoglobin (Bld) [Mass/Vol] 11.3 g/dL Low 11.7-15.5 [facility] Comment on above: Performed By: #### C LIZBET, 3040-3, , 22716-4, CBCA #### [facility] [facility] ([id number]) [address] [place] [address] 42970 Lymphocytes (Bld) [#/Vol] 2.7 10*3/uL Normal 1.0-3.5 [facility] Comment on above: Performed By: #### C LIZBET, 3039-3, , , CBCA #### [facility] ([id number]) [address] [place] [address] 70876 Lymphocytes/100 WBC (Bld) 26.6 % Normal [facility] Comment on above: Performed By: #### C LIZBET, 3039-08, , , CBCA #### [facility] ([id number]) [address] [place] [address] 79502 MCH (RBC) [Entitic mass] 30.4 pg Normal 27-34 [facility] Comment on above: Performed By: #### C LIZBET, 3, , , CBCA #### [facility] ([id number]) [address] [place] [address] 65390 MCHC (RBC) [Mass/Vol] 32.6 g/dL Normal 32-36 [facility] Comment on above: Performed By: #### Bob SOMERS, 3039-08, , , CBCA #### [facility] ([id number]) [address] [place] [address] 50441 MCV (RBC) [Entitic vol] 93 fL Normal 80-100 [facility] Comment on above: Performed By: #### C LIZBET, 3039-, , , CBCA #### [facility] ([id number]) [address] [place] [address] 33528 Monocytes (Bld) [#/Vol] 0.8 10*3/uL Normal 0-0.9 [facility] Comment on above: Performed By: #### Bob SOMERS, 3039-3, , , CBCA #### [facility] ([id number]) [address] [place] [address] 44450 Monocytes/100 WBC (Bld) 7.8 % Normal [facility] Comment on above: Performed By: #### C LIZBET, 3040-3, 98294-9, 07300-8, CBCA #### [facility] ([id number]) [address] [place] [address] 72890 Neutrophils/100 WBC (Bld) 62.9 % Normal [facility] Comment on above: Performed By: #### C LIZBET, 3040-3, 71200-4, 08877-3, CBCA #### [facility] ([id number]) [address] [place] [address] 36312 Platelet mean volume (Bld) [Entitic vol] 10.8 fL Normal 7-12 [facility] Comment on above: Performed By: #### C LIZBET, 3040-3, 88137-3, 37797-9, CBCA #### [facility] ([id number]) [address] [place] [address] 40726 Platelets (Bld) [#/Vol] 248 10*3/uL Normal 150-450 [facility] Comment on above: Performed By: #### C LIZBET, 3040-3, 13257-3, 78877-0, CBCA #### [facility] ([id number]) [address] [place] [address] 80057 RBC COUNT 3.71 X10E12/L Low 3.80-5.20 [facility] Comment on above: Performed By: #### C LIZBET, 3040-3, 14594-8, 15976-8, CBCA #### [facility] ([id number]) [address] [place] [address] 26548 WBC (Bld) [#/Vol] 10.0 10*3/uL Normal 4.0-11.0 [facility] Comment on above: Performed By: #### C LIZBET, 3040-3, 62904-2, 01377-7, CBCA #### [facility] ([id number]) [address] [place] [address] 93497 COMPREHENSIVE METABOLIC PANE Wilver 02-11-2024 Albumin [Mass/Vol] 4.1 g/dL Normal 3.2-5.3 [facility] Comment on above: Performed By: #### C LIZBET, 3040-3, 76922-9, 59383-0, CBCA #### [facility] ([id number]) [address] [place] [address] 23549 ALP [Catalytic activity/Vol] 100 U/L Normal 39-130 [facility] Comment on above: Performed By: #### C LIZBET, 3040-3, 93092-4, 42143-4, CBCA #### [facility] ([id number]) [address] [place] [address] 16560 Anion gap [Moles/Vol] 5 mmol/L Normal 5-15 [facility] Comment on above: Performed By: #### C LIZBET, 3040-3, 86694-0, 62242-9, CBCA #### [facility] ([id number]) [address] [place] [address] 68307 AST [Catalytic activity/Vol] 21 U/L Normal 0-41 [facility] Comment on above: Performed By: #### C MP, 3040-3, 94499-8, 85375-1, CBCA #### [facility] ([id number]) [address] [place] [address] 13217 Bilirubin [Mass/Vol] 0.4 mg/dL Normal 0.3-1.[address] [facility] Comment on above: Performed By: #### C LIZBET, 3040-3, 06440-0, 47053-4, CBCA #### [facility] ([id number]) [address] [place] [address] 90540 Calcium [Mass/Vol] 8.5 mg/dL Normal 8.5-10.5 [facility] Comment on above: Performed By: #### C LIZBET, 3040-3, 03345-8, 96939-4, CBCA #### [facility] ([id number]) [address] [place] [address] 65420 Chloride [Moles/Vol] 108 mmol/L Normal 98-[address] [facility] Comment on above: Performed By: #### C LIZBET, 3040-3, 96157-4, 08765-8, CBCA #### [facility] ([id number]) [address] [place] [address] 91369 Creatinine [Mass/Vol] 2.28 mg/dL High 0.40-1.00 [facility] Comment on above: Result Comment: METH OD TRACEABLE TO IDMS STANDARD Performed By: #### C LIZBET, 3040-3, 46288-8, 19003-4, CBCA #### [facility] ([id number]) [address] [place] [address] 53975 GFR/1.73 sq M.predicted among non-blacks MDRD (S/P/Bld) [Vol rate/Area] 28 mL/min/{1.73_m2} Low >59 [facility] Comment on above: Result Comment: Reported eGFR is based on the CKD-EPI 2020 equation that does not use a race coefficient. Performed By: #### C LIZBET, 3040-3, 09112-9, 63665-8, CBCA #### [facility] ([id number]) [address] [place] [address] 39032 Glucose [Mass/Vol] 119 mg/dL High 65-99 [facility] Comment on above: Performed By: #### C LIZBET, 3040-3, 36208-2, 41210-2, CBCA #### [facility] ([id number]) [address] [place] [address] [place] [address] Potassium [Moles/Vol] 4.3 mmol/L Normal 3.5-5.0 [facility] Comment on above: Performed By: #### C LIZBET, 3040-3, 68989-4, 66055-6, CBCA #### [facility] ([id number]) [address] [place] [address] 24858 Protein [Mass/Vol] 7.3 g/dL Normal 6.0-8.0 [facility] Comment on above: Performed By: #### C LIZBET, 0-3, , 02191-8, CBCA #### [facility] ([id number]) [address] [place] [address] 14724 Sodium [Moles/Vol] 135 mmol/L Normal 134-146 [facility] Comment on above: Performed By: #### C LIZBET, 3039-3, , 66183-9, CBCA #### [facility] ([id number]) [address] [place] [address] 34996 Urea nitrogen [Mass/Vol] 35 mg/dL High 5-23 [facility] Comment on above: Performed By: #### C LIZBET, 3039-3, , 26480-2, CBCA #### [facility] ([id number]) [address] [place] [address] 54676 Albumin [Mass/Vol] 4.3 g/dL Normal 3.2-5.3 [facility] Comment on above: Performed By: #### C LIZBET, 0-3, , 48216-0, CBCA #### [facility] ([id number]) [address] [place] [address] 26798 ALP [Catalytic activity/Vol] 107 U/L Normal 39-130 [facility] Comment on above: Performed By: #### C LIZBET, 3040-3, 29816-5, 77408-2, CBCA #### [facility] ([id number]) [address] [place] [address] 51653 ALT [Catalytic activity/Vol] 19 U/L Normal 0-31 [facility] Comment on above: Performed By: #### C LIZBET, 3040-3, 14959-6, 21853-5, CBCA #### [facility] ([id number]) [address] [place] [address] 07249 Anion gap [Moles/Vol] 8 mmol/L Normal 5-15 [facility] Comment on above: Performed By: #### C LIZBET, 3040-3, , 14724-8, CBCA #### [facility] ([id number]) [address] [place] [address] 76012 AST [Catalytic activity/Vol] 28 U/L Normal 0-41 [facility] Comment on above: Performed By: #### C LIZBET, 3040-3, , 34225-4, CBCA #### [facility] ([id number]) [address] [place] [address] 09730 Bilirubin [Mass/Vol] 0.7 mg/dL Normal 0.3-1.[address] [facility] Comment on above: Result Comment: RESU LTS QUESTIONABLE DUE TO HEMOLYSIS Performed By: #### C LIZBET, 3040-3, , 74541-2, CBCA #### [facility] ([id number]) [address] [place] [address] 02626 Calcium [Mass/Vol] 8.9 mg/dL Normal 8.5-10.5 [facility] Comment on above: Performed By: #### C LIZBET, 3040-3, , 54517-0, CBCA #### [facility] ([id number]) [address] [place] [address] 12258 Chloride [Moles/Vol] 106 mmol/L Normal 98-[address] [facility] Comment on above: Performed By: #### C LIZBET, 0-3, , 10350-1, CBCA #### [facility] ([id number]) [address] [place] [address] CO2 [Moles/Vol] 22 mmol/L Normal 22-32 [facility] Comment on above: Performed By: #### C LIZBET, 0-3, , 32812-0, CBCA #### [facility] ([id number]) [address] [place] [address] 37451 Creatinine [Mass/Vol] 2.37 mg/dL High 0.40-1.00 [facility] Comment on above: Result Comment: METH OD TRACEABLE TO IDMS STANDARD Performed By: #### C LIZBET, 3039-3, , , CBCA #### [facility] ([id number]) [address] [place] [address] 03610 GFR/1.73 sq M.predicted among non-blacks MDRD (S/P/Bld) [Vol rate/Area] 26 mL/min/{1.73_m2} Low >59 [facility] Comment on above: Result Comment: Reported eGFR is based on the CKD-EPI 2020 equation that does not use a race coefficient. Performed By: #### C LIZBET, 3040-3, , 69153-2, CBCA #### [facility] ([id number]) [address] [place] [address] 93074 Glucose [Mass/Vol] 126 mg/dL High 65-99 [facility] Comment on above: Performed By: #### C LIZBET, 3040-3, , 66737-7, CBCA #### [facility] ([id number]) [address] [place] [address] Potassium [Moles/Vol] 4.9 mmol/L Normal 3.5-5.0 [facility] Comment on above: Result Comment: SPEC IMEN HEMOLYZED, RESULTS INCREASED Performed By: #### C MP, 3040-3, 38654-8, 06961-7, CBCA #### [facility] ([id number]) [address] [place] [address] 31228 Protein [Mass/Vol] 7.8 g/dL Normal 6.0-8.0 [facility] Comment on above: Performed By: #### C MP, 3040-3, 22271-6, 47155-2, CBCA #### [facility] ([id number]) [address] [place] [address] 30684 Sodium [Moles/Vol] 136 mmol/L Normal 134-146 [facility] Comment on above: Performed By: #### C MP, 3040-3, 96054-5, 53678-5, CBCA #### [facility] ([id number]) [address] [place] [address] 98279 Urea nitrogen [Mass/Vol] 33 mg/dL High 5-23 [facility] Comment on above: Performed By: #### C MP, 3040-3, 39518-0, 33120-5, CBCA #### [facility] ([id number]) [address] [place] [address] 11727 CRP High sensitivity method [Mass/Vol]on 02-11-2024 HS CRP 0.113 mg/dL Normal 0.000-0.74 4 [facility] Comment on above: Result Comment: Hs-CRP FOR CARDIAC RISK ASSESSMENT: By this method, 75% of hs-CRP values in healthy adults will be <0.37mg/dL. Prospective studies have shown that hs-CRP values in the upper quartile of an apparently healthy population are associated with an approximate 3-fold increase in risk of developing cardio- vascular disease. This increase in risk is even more pronounced in the presence of an elevated Cholesterol/HDL-C ratio (>5.5). Hs-CRP is a nonspecific marker of inflammation and can be elevated in other conditions. Performed By: #### C OVFLR #### [facility] ([id number]) [address] [place] [address] 65290 HS CRP 0.125 mg/dL Normal 0.000-0.74 4 [facility] Comment on above: Result Comment: Hs-CRP FOR CARDIAC RISK ASSESSMENT: By this method, 75% of hs-CRP values in healthy adults will be <0.37mg/dL. Prospective studies have shown that hs-CRP values in the upper quartile of an apparently healthy population are associated with an approximate 3-fold increase in risk of developing cardio- vascular disease. This increase in risk is even more pronounced in the presence of an elevated Cholesterol/HDL-C ratio (>5.5). Hs-CRP is a nonspecific marker of inflammation and can be elevated in other conditions. Performed By: #### C LIZBET, 3040-3, 72050-5, 17740-1, CBCA #### [facility] ([id number]) [address] [place] [address] 16208 Fibrin D-dimer DDU (PPP) [Ma ss/Vol]on 02-11-2024 D DIMER 275 ng/mL DDU High <255 [facility] Comment on above: Result Comment: Results >=255ng/mL DDU: Results may be indicative of the presence of VTE. The use of the Wells score and further diagnostic tests should be considered. Elevated D-Dimer levels can also be associated with DIC, neoplasm, , trauma and liver disease. Elevated levels of rheumatoid factor may lead to an overestimation of the D-Dimer level. Performed By: #### C LIZBET, 3040-3, 13502-9, 70691-1, CBCA #### [facility] ([id number]) [address] [place] [address] 39481 LIPASEon 02-11-2024 Lipase [Catalytic activity/Vol] 16 U/L Low 17-40 [facility] Comment on above: Performed By: #### C LIZBET, 3040-3, , 99084-5, CBCA #### [facility] ([id number]) [address] [place] [address] 32055 Natriuretic peptide B [Mass/ Vol]on 02-11-2024 Natriuretic peptide B (Bld) [Mass/Vol] 139 pg/mL High <100.0 [facility] Comment on above: Performed By: #### C LIZBET, 3040-3, , 03517-6, CBCA #### [facility] ([id number]) [address] [place] [address] 41896 Natriuretic peptide B (Bld) [Mass/Vol] 112 pg/mL High <100.0 [facility] Comment on above: Performed By: #### C LIZBET, 3040-3, , 72075-4, CBCA #### [facility] ([id number]) [address] [place] [address] 16496 PROTIME AND INRon 02-11-2024 INR Coag (PPP) [Relative time] 1.1 {INR} Normal 0.8-1.1 [facility] Comment on above: Performed By: #### C LIZBET, 3040-3, , , CBCA #### [facility] ([id number]) [address] [place] [address] 94926 PT Coag (PPP) [Time] 12.3 s Normal 9.8-13.[address] [facility] Comment on above: Result Comment: NEW REFERENCE RANGE Performed By: #### C LIZBET, 3040-3, , 26019-4, CBCA #### [facility] ([id number]) [address] [place] [address] 11391 Troponin I.cardiac High sens itivity method [Mass/Vol]on 02-11-2024 1 HOUR TROP I, HIGH SENSITIVITY 5 ng/L Normal <16 [facility] Comment on above: Performed By: #### C MP, 3040-3, 88939-6, 80290-1, CBCA #### [facility] ([id number]) [address] [place] [address] 11873 TROPONIN I, HIGH SENSITIVITY 5 ng/L Normal <16 [facility] Comment on above: Performed By: #### C MP, 3040-3, 74016-6, 44222-6, CBCA #### [facility] ([id number]) [address] [place] [address] 10850 1 HOUR TROP I, HIGH SENSITIVITY 5 ng/L Normal <16 [facility] Comment on above: Performed By: #### C MP, 3040-3, 69520-0, 13782-1, CBCA #### [facility] ([id number]) [address] [place] [address] 89953 TROPONIN I, HIGH SENSITIVITY 6 ng/L Normal <16 [facility] Comment on above: Performed By: #### C MP, 3040-3, 22300-4, 50435-1, CBCA #### [facility] ([id number]) [address] [place] [address] 25725 XR CHEST 1 VWon 02-11-2024 XR CHEST 1 VW XR CHEST 1 VW Clinical History: Chest pain. Portable Upright chest: 02/11/2024 Comparison: 02/07/2024 Findings: A single portable view of the chest was obtained. A Port-A-Cath is present on the right. There is no confluent pulmonary opacity. No pneumothorax or pleural effusion is present. Cardiomediastinal contours are stable. IMPRESSION: No acute infiltrate or pulmonary edema. Finalized by Víctor Arce MD on 02/11/2024 8:07 AM Normal [facility] aPTT Coag (PPP) [Time]on aPTT Coag (Bld) [Time] 91 s High 26-[address] [facility] Comment on above: Result Comment: NEW REFERENCE RANGE Performed By: #### C MP, 3040-3, 74320-8, 00137-4, CBCA #### [facility] ([id number]) [address] [place] [address] 45785 aPTT Coag (Bld) [Time] 37 s Normal 26-37 [facility] Comment on above: Result Comment: NEW REFERENCE RANGE Performed By: #### C LIZBET, 3040-3, 00533-9, 98763-4, CBCA #### [facility] ([id number]) [address] [place] [address] 28696 BASIC METABOLIC PANLon 02-08 Anion gap [Moles/Vol] 7 mmol/L Normal 5-15 [facility] Comment on above: Performed By: #### C LIZBET, 3040-3, 60683-2, 67276-8, CBCA #### [facility] ([id number]) [address] [place] [address] 70013 Calcium [Mass/Vol] 8.3 mg/dL Low 8.5-10.5 [facility] Comment on above: Performed By: #### C LIZBET, 3040-3, 68742-1, 54448-0, CBCA #### [facility] ([id number]) [address] [place] [address] 19020 Chloride [Moles/Vol] 105 mmol/L Normal 98-[address] [facility] Comment on above: Performed By: #### C LIZBET, 3040-3, 96551-9, 50217-5, CBCA #### [facility] ([id number]) [address] [place] [address] 92382 CO2 [Moles/Vol] 22 mmol/L Normal 22-32 [facility] Comment on above: Performed By: #### C LIZBET, 3040-3, 90501-1, 07320-3, CBCA #### [facility] ([id number]) [address] [place] [address] [place] [address] Creatinine [Mass/Vol] 2.06 mg/dL High 0.40-1.00 [facility] Comment on above: Result Comment: METH OD TRACEABLE TO IDMS STANDARD Performed By: #### C LIZBET, 3040-3, 45608-2, 60615-2, CBCElsa #### [facility] ([id number]) [address] [place] [address] 34282 GFR/1.73 sq M.predicted among non-blacks MDRD (S/P/Bld) [Vol rate/Area] 31 mL/min/{1.73_m2} Low >59 [facility] Comment on above: Result Comment: Reported eGFR is based on the CKD-EPI 2020 equation that does not use a race coefficient. Performed By: #### C LIZBET, 0-3, , 84672-4, CBCA #### [facility] ([id number]) [address] [place] [address] 24254 Glucose [Mass/Vol] 145 mg/dL High 65-99 [facility] Comment on above: Performed By: #### C LIZBET, 0-3, , 44943-7, CBCA #### [facility] ([id number]) [address] [place] [address] 52698 Potassium [Moles/Vol] 4.5 mmol/L Normal 3.5-5.0 [facility] Comment on above: Performed By: #### C LIZBET, 3040-3, , 93120-2, CBCA #### [facility] ([id number]) [address] [place] [address] 99222 Sodium [Moles/Vol] 134 mmol/L Normal 134-146 [facility] Comment on above: Performed By: #### C LIZBET, 3040-3, 25339-9, 06849-7, CBCA #### [facility] ([id number]) [address] [place] [address] 75515 Urea nitrogen [Mass/Vol] 34 mg/dL High 5-23 [facility] Comment on above: Performed By: #### C LIZBET, 3040-3, , 04405-5, CBCA #### [facility] ([id number]) [address] [place] [address] 06732 COMPLETE BLOOD COUNTon 02-08 Erythrocyte distribution width (RBC) [Ratio] 14.2 % Normal 11.5-15.0 [facility] Comment on above: Performed By: #### C LIZBET, 0-3, , 54106-4, CBCA #### [facility] ([id number]) [address] [place] [address] 29553 Hematocrit (Bld) [Volume fraction] 28.6 % Low 35-47 [facility] Comment on above: Performed By: #### C LIZBET, 0-3, , , CBCA #### [facility] ([id number]) [address] [place] [address] 48160 Hemoglobin (Bld) [Mass/Vol] 9.1 g/dL Low 11.7-15.5 [facility] Comment on above: Performed By: #### C LIZBET, 0-3, , 02282-6, CBCA #### [facility] ([id number]) [address] [place] [address] 20917 MCH (RBC) [Entitic mass] 30.3 pg Normal 27-34 [facility] Comment on above: Performed By: #### C LIZBET, 3040-3, , 20046-5, CBCA #### [facility] ([id number]) [address] [place] [address] 56978 MCHC (RBC) [Mass/Vol] 31.9 g/dL Low 32-36 [facility] Comment on above: Performed By: #### C MP, 3040-3, 31802-7, 63082-3, CBCA #### [facility] ([id number]) [address] [place] [address] 54607 MCV (RBC) [Entitic vol] 95 fL Normal 80-100 [facility] Comment on above: Performed By: #### C LIZBET, 3040-3, 37102-5, 59859-3, CBCA #### [facility] ([id number]) [address] [place] [address] 23468 Platelet mean volume (Bld) [Entitic vol] 9.6 fL Normal 7-12 [facility] Comment on above: Performed By: #### C LIZBET, 3040-3, 34199-9, 26172-8, CBCA #### [facility] ([id number]) [address] [place] [address] 96131 Platelets (Bld) [#/Vol] 219 10*3/uL Normal 150-450 [facility] Comment on above: Performed By: #### C LIZBET, 3040-3, , 29362-5, CBCA #### [facility] ([id number]) [address] [place] [address] 69408 RBC COUNT 3.01 X10E12/L Low 3.80-5.20 [facility] Comment on above: Performed By: #### C MP, 3040-3, 12785-5, 00010-7, CBCA #### [facility] ([id number]) [address] [place] [address] 07980 WBC (Bld) [#/Vol] 9.2 10*3/uL Normal 4.0-11.0 [facility] Comment on above: Performed By: #### C LIZBET, 3040-3, 13887-3, 30291-0, CBCA #### [facility] ([id number]) [address] [place] [address] 26492 MAGNESIUMon 02-09-2024 Magnesium [Mass/Vol] 2.0 mg/dL Normal 1.8-2.[address] [facility] Comment on above: Performed By: #### C LIZBET, 3040-3, 32109-2, 44131-5, CBCA #### [facility] ([id number]) [address] [place] [address] 25372 BASIC METABOLIC PANLon 02-07 Anion gap [Moles/Vol] 8 mmol/L Normal 5-15 [facility] Comment on above: Performed By: #### C LIZBET, 3040-3, , 77867-6, CBCA #### [facility] ([id number]) [address] [place] [address] 30203 Calcium [Mass/Vol] 8.4 mg/dL Low 8.5-10.5 [facility] Comment on above: Performed By: #### C LIZBET, 3040-3, , 41131-5, CBCA #### [facility] ([id number]) [address] [place] [address] 38037 Chloride [Moles/Vol] 106 mmol/L Normal 98-[address] [facility] Comment on above: Performed By: #### Bob SOMERS, 3040-3, , 25364-0, CBCA #### [facility] ([id number]) [address] [place] [address] 08802 CO2 [Moles/Vol] 20 mmol/L Low 22-32 [facility] Comment on above: Performed By: #### C LIZBET, 3040-3, , 73851-1, CBCA #### [facility] ([id number]) [address] [place] [address] 69457 Creatinine [Mass/Vol] 2.23 mg/dL High 0.40-1.00 [facility] Comment on above: Result Comment: METH OD TRACEABLE TO IDMS STANDARD Performed By: #### C LIZBET, 3039-3, , , CBCA #### [facility] ([id number]) [address] [place] [address] 00408 GFR/1.73 sq M.predicted among non-blacks MDRD (S/P/Bld) [Vol rate/Area] 28 mL/min/{1.73_m2} Low >59 [facility] Comment on above: Result Comment: Reported eGFR is based on the CKD-EPI 2020 equation that does not use a race coefficient. Performed By: #### C LIZBET, 3039-3, , , DAVID #### [facility] ([id number]) [address] [place] [address] 44426 Glucose [Mass/Vol] 141 mg/dL High 65-99 [facility] Comment on above: Performed By: #### C LIZBET, 3039-3, , 94012-9, CBCA #### [facility] ([id number]) [address] [place] [address] 49873 Potassium [Moles/Vol] 4.2 mmol/L Normal 3.5-5.0 [facility] Comment on above: Performed By: #### C LIZBET, 3039-3, , 60116-6, CBCA #### [facility] ([id number]) [address] [place] [address] 75470 Sodium [Moles/Vol] 134 mmol/L Normal 134-146 [facility] Comment on above: Performed By: #### C LIZBET, 0-3, , 98489-9, CBCA #### [facility] ([id number]) [address] [place] [address] 57580 Urea nitrogen [Mass/Vol] 35 mg/dL High 5-23 [facility] Comment on above: Performed By: #### C LIZBET, 3040-3, 10775-1, 20479-3, CBCA #### [facility] ([id number]) [address] [place] [address] 76902 COMPLETE BLOOD COUNTon 02-07 Erythrocyte distribution width (RBC) [Ratio] 13.7 % Normal 11.5-15.0 [facility] Comment on above: Performed By: #### C LIZBET, 3040-3, , 10093-3, CBCA #### [facility] ([id number]) [address] [place] [address] 58812 Hematocrit (Bld) [Volume fraction] 31.5 % Low 35-47 [facility] Comment on above: Performed By: #### C LIZBET, 3040-3, , 20003-2, CBCA #### [facility] ([id number]) [address] [place] [address] 03557 Hemoglobin (Bld) [Mass/Vol] 10.4 g/dL Low 11.7-15.5 [facility] Comment on above: Performed By: #### C LIZBET, 3040-3, , 03109-8, CBCA #### [facility] ([id number]) [address] [place] [address] 87132 MCH (RBC) [Entitic mass] 31.0 pg Normal 27-34 [facility] Comment on above: Performed By: #### C LIZBET, 3040-3, , 53290-6, CBCA #### [facility] ([id number]) [address] [place] [address] 95240 MCHC (RBC) [Mass/Vol] 32.9 g/dL Normal 32-36 [facility] Comment on above: Performed By: #### C LIZBET, 3040-3, , 51153-2, CBCA #### [facility] ([id number]) [address] [place] [address] 08462 MCV (RBC) [Entitic vol] 94 fL Normal 80-100 [facility] Comment on above: Performed By: #### C LIZBET, 3040-3, 66385-1, 78471-8, CBCA #### [facility] ([id number]) [address] [place] [address] 94042 Platelet mean volume (Bld) [Entitic vol] 9.9 fL Normal 7-12 [facility] Comment on above: Performed By: #### C LIZBET, 3040-3, , 14411-4, CBCA #### [facility] ([id number]) [address] [place] [address] 68962 Platelets (Bld) [#/Vol] 243 10*3/uL Normal 150-450 [facility] Comment on above: Performed By: #### C LIZBET, 3040-3, , 67046-5, CBCA #### [facility] ([id number]) [address] [place] [address] 11699 RBC COUNT 3.34 X10E12/L Low 3.80-5.20 [facility] Comment on above: Performed By: #### C LIZBET, 3040-3, , 22028-6, CBCA #### [facility] ([id number]) [address] [place] [address] 95109 WBC (Bld) [#/Vol] 10.1 10*3/uL Normal 4.0-11.0 [facility] Comment on above: Performed By: #### C LIZBET, 3040-3, , 06399-1, CBCA #### [facility] ([id number]) [address] [place] [address] 93930 Lipid 1996 panelon 4 Cholesterol [Mass/Vol] 170 mg/dL Normal 150-[address] [facility] Comment on above: Performed By: ###Jeny Rojas MP, 3039-3, , 54309-6, CBCA #### [facility] ([id number]) [address] [place] [address] 58196 Cholesterol in HDL [Mass/Vol] 27 mg/dL Low >39 [facility] Comment on above: Result Comment: HDL <40 mg/dL - High Risk HDL > or = 40mg/dL- Desirable HDL >60 mg/dL - Negative Risk Performed By: #### Bob SOMERS, 3, , 63360-0, CBCA #### [facility] ([id number]) [address] [place] [address] 39609 Cholesterol in LDL [Mass/Vol] 83 mg/dL Normal <130 [facility] Comment on above: Result Comment: LDL <100 mg/dL - Desirable LDL >160 mg/dL - High Risk Performed By: ###Jeny Rojas MP, 3039-3, , 69183-8, CBCA #### [facility] ([id number]) [address] [place] [address] 95822 Cholesterol in VLDL [Mass/Vol] 60 mg/dL High 0-30 [facility] Comment on above: Performed By: ###Jeny Rojas MP, 3039-3, , 11798-1, CBCA #### [facility] ([id number]) [address] [place] [address] 73776 CHOLESTEROL:HDL 6.3 High 1.0-5.0 [facility] Comment on above: Performed By: #### C LIZBET, 3040-3, 64034-2, 11600-7, CBCA #### [facility] ([id number]) [address] [place] [address] 98699 Triglyceride [Mass/Vol] 298 mg/dL High 27-150 [facility] Comment on above: Performed By: #### C LIZBET, 3040-3, , 30088-1, CBCA #### [facility] ([id number]) [address] [place] [address] 21184 MAGNESIUMon 02-08-2024 Magnesium [Mass/Vol] 2.2 mg/dL Normal 1.8-2.[address] [facility] Comment on above: Performed By: #### C LIZBET, 0-3, , 71943-2, CBCA #### [facility] ([id number]) [address] [place] [address] 68659 Magnesium [Mass/Vol] 1.9 mg/dL Normal 1.8-2.[address] [facility] Comment on above: Performed By: #### C LIZBET, 0-3, , 94152-1, CBCA #### [facility] ([id number]) [address] [place] [address] 35900 BASIC METABOLIC PANLon 02-06 Anion gap [Moles/Vol] 8 mmol/L Normal 5-15 [facility] Comment on above: Performed By: #### C LIZBET, 3040-3, , 00415-4, CBCA #### [facility] ([id number]) [address] [place] [address] 64979 Calcium [Mass/Vol] 8.9 mg/dL Normal 8.5-10.5 [facility] Comment on above: Performed By: #### C LIZBET, 3040-3, , 63444-0, CBCA #### [facility] ([id number]) [address] [place] [address] 57238 Chloride [Moles/Vol] 104 mmol/L Normal 98-[address] [facility] Comment on above: Performed By: #### C LIZBET, 3040-3, 42661-5, 49918-1, CBCA #### [facility] ([id number]) [address] [place] [address] 80059 CO2 [Moles/Vol] 21 mmol/L Low 22-32 [facility] Comment on above: Performed By: #### C LIZBET, 3040-3, 63439-4, 60319-7, CBCA #### [facility] ([id number]) [address] [place] [address] 20905 Creatinine [Mass/Vol] 2.55 mg/dL High 0.40-1.00 [facility] Comment on above: Result Comment: METH OD TRACEABLE TO IDMS STANDARD Performed By: #### C LIZBET, 3040-3, 59015-0, 88909-2, CBCA #### [facility] ([id number]) [address] [place] [address] 42900 GFR/1.73 sq M.predicted among non-blacks MDRD (S/P/Bld) [Vol rate/Area] 24 mL/min/{1.73_m2} Low >59 [facility] Comment on above: Result Comment: Reported eGFR is based on the CKD-EPI 2020 equation that does not use a race coefficient. Performed By: #### C LIZBET, 3040-3, 92977-1, 23390-3, CBCA #### [facility] ([id number]) [address] [place] [address] 26731 Glucose [Mass/Vol] 174 mg/dL High 65-99 [facility] Comment on above: Performed By: #### C LIZBET, 3040-3, 09223-1, 67112-4, CBCA #### [facility] ([id number]) [address] [place] [address] 58373 Potassium [Moles/Vol] 4.8 mmol/L Normal 3.5-5.0 [facility] Comment on above: Performed By: #### C LIZBET, 3040-3, 85104-6, 07705-7, CBCA #### [facility] ([id number]) [address] [place] [address] 23787 Sodium [Moles/Vol] 133 mmol/L Low 134-146 [facility] Comment on above: Performed By: #### C LIZBET, 0-3, , 05224-2, CBCA #### [facility] ([id number]) [address] [place] [address] 98992 Urea nitrogen [Mass/Vol] 35 mg/dL High 5-23 [facility] Comment on above: Performed By: #### C LIZBET, 0-3, , 16262-3, CBCA #### [facility] ([id number]) [address] [place] [address] 77458 CBC AND AUTO DIFFon 02-07-20 24 ABSOLUTE BASOPHIL 0.1 X10E9/L Normal 0.0-0.2 [facility] Comment on above: Performed By: #### C LIZBET, 3040-3, , 71511-5, CBCA #### [facility] ([id number]) [address] [place] [address] 49509 ABSOLUTE NEUTROPHIL 8.1 X10E9/L High 1.5-6.[address] [facility] Comment on above: Performed By: #### C LIZBET, 3040-3, , 47671-7, CBCA #### [facility] ([id number]) [address] [place] [address] 56563 Basophils/100 WBC (Bld) 1.0 % Normal [facility] Comment on above: Performed By: #### C LIZBET, 3040-3, 80017-5, 42441-0, CBCA #### [facility] ([id number]) [address] [place], [place] [address] Eosinophils (Bld) [#/Vol] 0.0 10*3/uL Normal 0.0-0.4 [facility] Comment on above: Performed By: #### C LIZBET, 3040-3, , 39933-8, CBCA #### [facility] ([id number]) [address] [place] [address] 73904 Eosinophils/100 WBC (Bld) 0.5 % Normal [facility] Comment on above: Performed By: #### C LIZBET, 0-3, , 51752-2, CBCA #### [facility] ([id number]) [address] [place] [address] 82973 Erythrocyte distribution width (RBC) [Ratio] 13.8 % Normal 11.5-15.0 [facility] Comment on above: Performed By: #### C LIZBET, 0-3, , 15612-7, CBCA #### [facility] ([id number]) [address] [place] [address] 06637 Hematocrit (Bld) [Volume fraction] 33.9 % Low 35-47 [facility] Comment on above: Performed By: #### C LIZBET, 3040-3, , 57256-6, CBCA #### [facility] ([id number]) [address] [place] [address] 04671 Hemoglobin (Bld) [Mass/Vol] 11.1 g/dL Low 11.7-15.5 [facility] Comment on above: Performed By: #### C LIZBET, 3040-3, , 30967-9, CBCA #### [facility] ([id number]) [address] [place] [address] 62626 Lymphocytes (Bld) [#/Vol] 1.8 10*3/uL Normal 1.0-3.5 [facility] Comment on above: Performed By: #### C LIZBET, 3040-3, 24970-8, 25006-5, CBCA #### [facility] ([id number]) [address] [place] [address] 81520 Lymphocytes/100 WBC (Bld) 16.9 % Normal [facility] Comment on above: Performed By: #### C LIZBET, 0-3, , 31493-6, CBCA #### [facility] ([id number]) [address] [place] [address] 47794 MCH (RBC) [Entitic mass] 30.6 pg Normal 27-34 [facility] Comment on above: Performed By: #### Bob SOMERS, 0-3, , 53759-4, CBCA #### [facility] ([id number]) [address] [place] [address] 84532 MCHC (RBC) [Mass/Vol] 32.7 g/dL Normal 32-36 [facility] Comment on above: Performed By: #### Bob SOMERS, 3040-3, , 91838-0, CBCA #### [facility] ([id number]) [address] [place] [address] 62028 MCV (RBC) [Entitic vol] 93 fL Normal 80-100 [facility] Comment on above: Performed By: #### Bob SOMERS, 3040-3, , 46128-8, CBCA #### [facility] ([id number]) [address] [place] [address] 68622 Monocytes (Bld) [#/Vol] 0.6 10*3/uL Normal 0-0.9 [facility] Comment on above: Performed By: #### C MP, 3040-3, 89683-2, 73402-8, CBCA #### [facility] ([id number]) [address] [place] [address] 46497 Monocytes/100 WBC (Bld) 5.3 % Normal [facility] Comment on above: Performed By: #### C MP, 3040-3, 97616-7, 94798-8, CBCA #### [facility] ([id number]) [address] [place] [address] 77546 Neutrophils/100 WBC (Bld) 76.3 % Normal [facility] Comment on above: Performed By: #### C MP, 3040-3, 69922-4, 23537-2, CBCA #### [facility] ([id number]) [address] [place] [address] 50805 Platelet mean volume (Bld) [Entitic vol] 9.1 fL Normal 7-12 [facility] Comment on above: Performed By: #### C MP, 3040-3, 37161-3, 51219-7, CBCA #### [facility] ([id number]) [address] [place] [address] 01346 Platelets (Bld) [#/Vol] 278 10*3/uL Normal 150-450 [facility] Comment on above: Performed By: #### C MP, 3040-3, 77506-0, 26754-6, CBCA #### [facility] ([id number]) [address] [place] [address] 93666 RBC COUNT 3.63 X10E12/L Low 3.80-5.20 [facility] Comment on above: Performed By: #### C MP, 3040-3, 53204-2, 89314-9, CBCA #### [facility] ([id number]) [address] [place] [address] 15858 WBC (Bld) [#/Vol] 10.7 10*3/uL Normal 4.0-11.0 [facility] Comment on above: Performed By: #### C MP, 3040-3, 35577-4, 29197-1, CBCA #### [facility] ([id number]) [address] [place] [address], [facility] [place] [address] CT CHEST WO CONTon CT CHEST WO CONT CT CHEST WO CONT CT CHEST WITHOUT CONTRAST COMPARISON: 04/06/2023 HISTORY: Chest pain, aortic aneurysm, known or suspected. Back pain, shortness of breath, hypertensive emergency. TECHNIQUE: Unenhanced axial images of the thorax obtained with sagittal and coronal 2-D reformatted images. Automatic exposure control (AEC) was utilized. FINDINGS: No gross evidence for vascularity aneurysm, although evaluation for dilatation of the ascending aorta is compromised by patient motion artifact and absence of intravenous contrast. No acute osseous abnormality. Right chest port is in the right atrium. No pneumothorax. No focal consolidation. No pleural or pericardial effusion. Mild to moderate coronary artery calcification. Benign calcified granuloma in the inferior right upper lobe. No suspicious pulmonary nodules. A solitary 23 mm thyroid nodule in the left lobe is indeterminate. Partially visualized wall thickening of the distal transverse colon, splenic flexure the colon, and proximal descending colon with pericolonic inflammatory change consistent with acute colitis. IMPRESSION: 1. A solitary 23 mm thyroid nodule in the left lobe is indeterminate. Further evaluation with a dedicated thyroid ultrasound is recommended, depending upon life expectancy and/or co-morbidities. 2. Partially visualized acute colitis noted in the left lower quadrant which could be from an infectious or inflammatory process or ischemia. Consider CT abdomen and pelvis for complete evaluation, preferably with IV contrast if possible. 3. No evidence for an acute cardiopulmonary process. Chronic changes detailed above including mild to moderate coronary artery calcification. All CT scans at this facility use dose modulation, iterative reconstruction, and/or weight based dosing when appropriate to reduce radiation dose to as low as reasonably achievable. Recommendations for thyroid nodule management based on Mal et al., J Am Bernie Radiol 12:143-50 (2015). Finalized by Andrew Marcelo MD on 02/07/2024 1:53 PM Normal [facility] Fibrin D-dimer DDU (PPP) [Ma ss/Vol]on 02-07-2024 D DIMER 195 ng/mL DDU Normal <255 [facility] Comment on above: Result Comment: Results <255 ng/mL DDU: The presence of a VTE can safely be excluded with a negative D-Dimer result and Wells score. A negative result doesn't exclude the possibility of DIC. The test be repeated along with other diagnostic tests if the patient's symptoms persist or worsen. [email or web address] Performed By: #### C LIZBET, 3040-3, 23618-3, 98787-1, CBCA #### [facility] ([id number]) [address] [place] [address] 34872 HGB A1C (GLYCO-HGB)on 2023 Glucose [Mass/Vol] 183 mg/dL Normal [facility] Comment on above: Performed By: #### C LIZBET, 3040-3, 40206-0, 83117-2, CBCA #### [facility] ([id number]) [address] [place] [address] 74541 HbA1c (Bld) [Mass fraction] 8.0 % High 4.4-5.6 [facility] Comment on above: Result Comment: NOTE ADA Guidelines Result HgbA1c Normal : less than 5.7 % Prediabetes : 5.7 % to 6.4 % Diabetes : > 6.4 % Use with caution in patients with abnormal hemoglobin variants as the half-life of red blood cells and in vivo glycation rates are affected. Performed By: #### C LIZBET, 3040-3, 69030-7, 45997-7, CBCA #### [facility] ([id number]) [address] [place] [address] 98264 THYROID PROFILEon 02-07-2024 Free T4 [Mass/Vol] 0.76 ng/dL Normal 0.61-1.60 [facility] Comment on above: Performed By: #### C LIZBET, 3040-3, 06965-5, 45115-5, CBCA #### [facility] ([id number]) [address] [place] [address] 07652 TSH 5.02 uIU/mL High 0.49-4.67 [facility] Comment on above: Performed By: #### C LIZBET, 3040-3, 94592-0, 64060-6, CBCA #### [facility] ([id number]) [address] [place] [address] 04421 Troponin I.cardiac High sens itivity method [Mass/Vol]on 02-07-2024 1 HOUR TROP I, HIGH SENSITIVITY 4 ng/L Normal <16 [facility] Comment on above: Performed By: #### C LIZBET, 3040-3, 59176-1, 05712-3, CBCA #### [facility] ([id number]) [address] [place] [address] 28164 TROPONIN I, HIGH SENSITIVITY 4 ng/L Normal <16 [facility] Comment on above: Performed By: #### C LIZBET, 3040-3, 35734-0, 97183-8, CBCA #### [facility] ([id number]) [address] [place] [address] 19310 XR CHEST 1 VWon 02-07-2024 XR CHEST 1 VW XR CHEST 1 VW CLINICAL INFORMATION: Chest pain and shortness of breath COMPARISON: Chest radiograph dated 04/06/2023. VIEWS: 1. FINDINGS: Cardiac and mediastinal shadows are normal. Chemo-Port placed via right subclavian approach has tip in the right atrium No infiltrates. No effusions. No pneumothorax. No free air below the diaphragm. IMPRESSION: No acute cardiopulmonary disease. Finalized by Sylvia Molina MD on 02/07/2024 10:16 AM Normal [facility] aPTT Coag (PPP) [Time]on aPTT Coag (Bld) [Time] 37 s Normal 26-[address] [facility] Comment on above: Result Comment: NEW REFERENCE RANGE Performed By: #### C MP, 3040-3, 02980-6, 96071-6, CBCA #### [facility] ([id number]) [address] [facility] [place] [address] HbA1c HPLC (Bld) [Mass fract ion]on 01-05-2024 HbA1c (Bld) [Mass fraction] 7.4 % [facility] No Panel Informationon 01-04 Bedside Glucose 245 [facility] .eGFRon 12-04-2023 Estimated GFR 33 mL/min/1.73m? Low >=60 [facility] Comment on above: Result Comment: [facility] Laboratories have implemented the eGFR calculation approach that does not have a coefficient for race and that conforms to the NKF-ASN Task Force Recommendations. Stages of Chronic Kidney Disease GFR Stage 3a Mild to moderate loss of kidney function 59 to 45 Stage 3b Moderate to severe loss of kidney function 44 to 33 Stage 4 Severe loss of kidney function 29 to 15 Stage 5 Kidney failure Less than 15 GFR calculated using the CKD-Epi Creatinine Equation (2020): eGFR = 142 X min(SCr/?, 1)? X max(SCr /?, 1)-1.200 X 0.9938Age X 1.012 [if female] Abbreviations/Units: eGFR (estimated glomerular filtration rate) = mL/min/1.73 m2 SCr (standardized serum creatinine) = mg/dL ? = 0.7 (females) or 0.9 (males) ? = -0.241 (females) or -0.302 (males) min = indicates the minimum of SCr/? or 1 max = indicates the maximum of SCr/? or 1 Age = years Performed By: #### C [id number] #### [facility] [address] [place] [address] Basic Metabolic Profileon Anion gap [Moles/Vol] 8 mmol/L Normal 4-12 [facility] Comment on above: Performed By: #### C D:[id number] #### [address] [address] Calcium [Mass/Vol] 8.5 mg/dL Normal 8.5-10.3 [facility] Comment on above: Performed By: #### C [id number] #### [address] [address] Chloride [Moles/Vol] 105 mmol/L Normal 98-110 [facility] Comment on above: Performed By: #### C D:[id number] #### [address] [address] CO2 [Moles/Vol] 22 mmol/L Normal 22-32 [facility] Comment on above: Performed By: #### C D:[id number] #### [address] [address] Creatinine [Mass/Vol] 1.98 mg/dL High 0.44-1.03 [facility] Comment on above: Performed By: #### C D:[id number] #### [address] [address] Glucose [Mass/Vol] 110 mg/dL High 70-99 [facility] Comment on above: Performed By: #### C D:[id number] #### [address] [address] Potassium [Moles/Vol] 4.7 mmol/L Normal 3.4-4.8 [facility] Comment on above: Performed By: #### C D:[id number] #### [address] [address] Sodium [Moles/Vol] 135 mmol/L Normal 133-142 [facility] Comment on above: Performed By: #### C D:[id number] #### [address] [address] Urea nitrogen [Mass/Vol] 36 mg/dL High 8-26 [facility] Comment on above: Performed By: #### C D:[id number] #### [address] [address] Urea nitrogen/Creatinine [Mass ratio] 18.2 mg/mg Normal 10.0-20.0 [facility] Comment on above: Performed By: #### C D:[id number] #### [address] [address] CBC w/ Diffon 12-04-2023 Erythrocyte distribution width (RBC) [Ratio] 13.9 % Normal 11.6-14.8 [facility] Comment on above: Performed By: #### C BCI #### [place] [id number] Hematocrit (Bld) [Volume fraction] 29.0 % Low 36.0-46.0 [facility] Comment on above: Performed By: #### C BCI #### [place] [address]40 Hemoglobin (Bld) [Mass/Vol] 9.3 g/dL Low 12.0-16.0 [facility] Comment on above: Performed By: #### C BCI #### [address] [address] MCH (RBC) [Entitic mass] 30.4 pg Normal 27.0-35.0 [facility] Comment on above: Performed By: #### C BCI #### [address] [address] MCHC 32.0 % Normal 31.0-37.0 [facility] Comment on above: Performed By: #### C BCI #### [address] [address] MCV (RBC) [Entitic vol] 95.0 fL Normal 80.0-100.0 [facility] Comment on above: Performed By: #### C BCI #### [address] [address] Platelet 282 x10*3/mcL Normal 150-450 [facility] Comment on above: Performed By: #### C BCI #### [address] [address] Platelet mean volume (Bld) [Entitic vol] 8.4 fL Normal 6.7-10.6 [facility] Comment on above: Performed By: #### C BCI #### [address] [address] RBC 3.06 x10*6/mcL Low 3.80-5.20 [facility] Comment on above: Performed By: #### C BCI #### [address] [address] WBC 9.9 x10*3/mcL Normal 4.5-11.0 [facility] Comment on above: Performed By: #### C BCI #### [address] [address] Diff Autoon 12-04-2023 Baso Absolute 0.2 x10*3/mcL Normal 0.0-0.2 [facility] Comment on above: Performed By: #### C D:[id number] #### [address] [address] Basophils/100 WBC (Bld) 2.4 % High 0.0-1.5 [facility] Comment on above: Performed By: #### C D:[id number] #### [address] [address] Eos Absolute 0.1 x10*3/mcL Normal 0.0-0.4 [facility] Comment on above: Performed By: #### C D:[id number] #### [address] [address] Eosinophils/100 WBC (Bld) 1.0 % Normal 0.0-5.4 [facility] Comment on above: Performed By: #### C D:[id number] #### [address] [address] Lymph Absolute 2.6 x10*3/mcL Normal 1.0-4.8 [facility] Comment on above: Performed By: #### C D:[id number] #### [address] [address] Lymphocytes/100 WBC (Bld) 25.8 % Low 27.2-40.8 [facility] Comment on above: Performed By: #### C D:[id number] #### [address] [address] Howell Absolute 0.9 x10*3/mcL Normal 0.1-1.1 [facility] Comment on above: Performed By: #### C D:[id number] #### [address] [address] Monocytes/100 WBC (Bld) 9.4 % Normal 3.7-11.9 [facility] Comment on above: Performed By: #### C [id number] #### [address] [address] Neutro Absolute 6.1 x10*3/mcL Normal 1.8-7.7 [facility] Comment on above: Performed By: #### C [id number] #### [address] [address] Neutro Auto 61.4 % Normal 47.2-70.8 [facility] Comment on above: Performed By: #### C [id number] #### [address] [address] Inpatient Clinical Summaryon 12-04-2023 Inpatient Clinical Summary [address] [address] Clinical Summary Person Information Name: Pritesh Raza Age: 38 Years : 1985 Sex: Female PCP: Jalyn Holt DO Marital Status: Single Phone: PCP: Race: White Ethnicity: Not or Language: Greenlandic Visit Id: Visit Reason: Upper GI bleed Speciality: Acuity: Enc Type: Inpatient Med Service: Medicine-General Arrival: 12/03/2023 02:50:21 Discharge: Dispo Type: Address: [address] [facility] [id number] Diagnosis: 1:Upper GI bleed; 2:Diabetes mellitus-Type I; 3:Chronic kidney disease; 4:Hypertension; 5:Familial hypertriglyceridemia; 6:Nonalcoholic fatty liver; 7:Rheumatoid arthritis Discharged To: Home Treatments: Devices/Equipment: Professional Skilled Services: Special Services and Community Resources: Mode of Discharge Transportation: Discharge Orders Allergies Reglan (Breathing difficulty) (Rash) Bentyl (Vomiting projectile) penicillin (Anaphylactic reaction) erythromycin (Anaphylactic reaction) Duricef (Anaphylactic reaction) ciprofloxacin (Anaphylactic reaction) Macrobid (Anaphylactic reaction) vancomycin (Anaphylactic reaction) clindamycin (Anaphylactic reaction) Toradol (Rash) Demerol (Hyperactive) metronidazole (Rash) (Dyspnea) Functional Status: Sensory Deficits: History of Falls: Mobility Assistance Prior to Admission: ADLs: Independent Gait: Steady Ambulation Assist: Assistive Device: None Special Orthopedic Devices: Current Level of Assistance for Self-Care/Mobility: Cognitive Status: Orientation: Orientation Assessment Oriented x 4 Level of Consciousness: Alert Characteristics of Speech: Clear Aspiration Risk: None Affect/Behavior: Appropriate, Calm, Cooperative Laboratory or Other Results This Visit (last charted value for your 12/03/2023 visit) Hematology 12/04/2023 3:55 AM WBC: 9.9 x10 RBC: 3.06 x10 Neutro Auto: 61.4 % -- Normal range between ( 47.2 and 70.8 ) Lymph Auto: 25.8 % -- Normal range between ( 27.2 and 40.8 ) Howell Auto: 9.4 % -- Normal range between ( 3.7 and 11.9 ) Eos Auto: 1.0 % -- Normal range between ( 0.0 and 5.4 ) Basophil Auto: 2.4 % -- Normal range between ( 0.0 and 1.5 ) Baso Absolute: 0.2 x10 MCV: 95.0 fL -- Normal range between ( 80.0 and 100.0 ) MCHC: 32.0 % -- Normal range between ( 31.0 and 37.0 ) Lymph Absolute: 2.6 x10 Hct: 29.0 % -- Normal range between ( 36.0 and 46.0 ) Howell Absolute: 0.9 x10 MCH: 30.4 pg -- Normal range between ( 27.0 and 35.0 ) Neutro Absolute: 6.1 x10 Hgb: 9.3 g/dL -- Normal range between ( 12.0 and 16.0 ) Mean Platelet Volume: 8.4 fL -- Normal range between ( 6.7 and 10.6 ) Platelet: 282 x10 Eos Absolute: 0.1 x10 RDW: 13.9 % -- Normal range between ( 11.6 and 14.8 ) Coagulation 12/03/2023 10:02 AM PT: 11.1 seconds -- Normal range between ( 9.2 and 12.0 ) INR: 1.1 ratio Urinalysis 12/03/2023 11:55 AM UA Color: Light-Yellow UA Urobilinogen: Normal mg/dL UA Bili: Negative UA Ketones: Negative mg/dL UA Leukocyte Esterase: Negative UA Nitrite: Negative UA Glucose: Normal mg/dL UA Protein: Negative mg/dL UA Blood: Negative UA Spec Grav: 1.012 -- Normal range between ( 1.003 and 1.035 ) UA pH: 5.0 UA Clarity: Clear UA Source: Clean Catch UA Mucus: Present /LPF UA WBC Quant: 0 /HPF -- Normal range between ( 0 and 5 ) UA RBC Quant: 0 /HPF -- Normal range between ( 0 and 5 ) UA Squepi Cells Quant: 1 /HPF -- Normal range between ( 0 and 29 ) Chemistry 12/04/2023 3:55 AM Creatinine Lvl: 1.98 mg/dL -- Normal range between ( 0.44 and 1.03 ) BUN: 36 mg/dL -- Normal range between ( 8 and 26 ) Glucose Lvl: 110 mg/dL -- Normal range between ( 70 and 99 ) Potassium Lvl: 4.7 mmol/L -- Normal range between ( 3.4 and 4.8 ) Sodium Lvl: 135 mmol/L -- Normal range between ( 133 and 142 ) Calcium Lvl: 8.5 mg/dL -- Normal range between ( 8.5 and 10.3 ) Magnesium Lvl: 1.9 mg/dL -- Normal range between ( 1.7 and 2.4 ) Chloride: 105 mmol/L -- Normal range between ( 98 and 110 ) CO2: 22 mmol/L -- Normal range between ( 22 and 32 ) Anion Gap: 8 -- Normal range between ( 4 and 12 ) Estimated GFR: 33 mL/min/1.73m? BUN Crea Ratio: 18.2 -- Normal range between ( 10.0 and 20.0 ) 12/03/2023 11:55 AM Urine Preg: Negative 12/03/2023 3:19 AM Hgb A1c: 8.0 % A1c -- Normal range between ( 4.0 and 5.6 ) eAvg Glucose: 183 mg/dL -- Normal range between ( 68 and 114 ) Blood Bank 12/03/2023 3:19 AM ABO/Rh: A POS Antibody Screen: Negative ABSC Molecular 12/03/2023 3:09 AM Methicillin Resistant Staph aurus(MRSA): Not Detected POC Testing 12/03/2023 1:35 PM POC Gluc Random: 108 mg/dL -- Normal range between ( 70 and 99 ) Measurements: Height: Weight: Blood Pressure: 156 mmHg / (more content not included)... Normal [facility] Magnesiumon 12-04-2023 Magnesium [Mass/Vol] 1.9 mg/dL Normal 1.7-2.4 [facility] Comment on above: Performed By: #### C [id number] #### [address] [address] .UA Microscp Aon 12-03-2023 UA Mucus Present Normal Absent [facility] Comment on above: Performed By: #### I GG #### [address] [address] UA RBC Quant 0 /HPF Normal 0-5 [facility] Comment on above: Performed By: #### I GG #### [address] [address] UA Squepi Cells Quant 1 /HPF Normal 0-29 [facility] Comment on above: Performed By: #### I GG #### [address] [address] UA WBC Quant 0 /HPF Normal 0-5 [facility] Comment on above: Performed By: #### I GG #### [address] [address] .eGFRon 12-03-2023 Estimated GFR 32 mL/min/1.73m? Low >=60 [facility] Comment on above: Result Comment: [facility] Laboratories have implemented the eGFR calculation approach that does not have a coefficient for race and that conforms to the NKF-ASN Task Force Recommendations. Stages of Chronic Kidney Disease GFR Stage 3a Mild to moderate loss of kidney function 59 to 45 Stage 3b Moderate to severe loss of kidney function 44 to 33 Stage 4 Severe loss of kidney function 29 to 15 Stage 5 Kidney failure Less than 15 GFR calculated using the CKD-Epi Creatinine Equation (2020): eGFR = 142 X min(SCr/?, 1)? X max(SCr /?, 1)-1.200 X 0.9938Age X 1.012 [if female] Abbreviations/Units: eGFR (estimated glomerular filtration rate) = mL/min/1.73 m2 SCr (standardized serum creatinine) = mg/dL ? = 0.7 (females) or 0.9 (males) ? = -0.241 (females) or -0.302 (males) min = indicates the minimum of SCr/? or 1 max = indicates the maximum of SCr/? or 1 Age = years Performed By: #### C BC #### [address] [address] ABO/Rhon 12-03-2023 ABO/Rh ABO/Rh: A POS Normal [facility] Comment on above: Performed By: #### C [id number] #### [address] [address] ABSC Autoon 12-03-2023 ABSC Auto Negative Normal [facility] Comment on above: Performed By: #### C [id number] #### [address] [address] Basic Metabolic Profileon Anion gap [Moles/Vol] 9 mmol/L Normal 4-12 [facility] Comment on above: Performed By: #### C [id number] #### [address] [address] Calcium [Mass/Vol] 8.3 mg/dL Low 8.5-10.3 [facility] Comment on above: Performed By: #### C [id number] #### [address] [address] Chloride [Moles/Vol] 107 mmol/L Normal 98-110 [facility] Comment on above: Performed By: #### C [id number] #### [address] [address] CO2 [Moles/Vol] 21 mmol/L Low 22-32 [facility] Comment on above: Performed By: #### C [id number] #### [address] [address] Creatinine [Mass/Vol] 2.04 mg/dL High 0.44-1.03 [facility] Comment on above: Performed By: #### C [id number] #### [address] [address] Glucose [Mass/Vol] 127 mg/dL High 70-99 [facility] Comment on above: Performed By: #### C [id number] #### [address] [address] Potassium [Moles/Vol] 4.5 mmol/L Normal 3.4-4.8 [facility] Comment on above: Performed By: #### C [id number] #### [address] [address] Sodium [Moles/Vol] 137 mmol/L Normal 133-142 [facility] Comment on above: Performed By: #### C [id number] #### [address] [address] Urea nitrogen [Mass/Vol] 37 mg/dL High 8-26 [facility] Comment on above: Performed By: #### C [id number] #### [address] [address] Urea nitrogen/Creatinine [Mass ratio] 18.1 mg/mg Normal 10.0-20.0 [facility] Comment on above: Performed By: #### C [id number] #### [address] [address] CBC w/ Diffon 12-03-2023 Erythrocyte distribution width (RBC) [Ratio] 13.8 % Normal 11.6-14.8 [facility] Comment on above: Performed By: #### C BC #### [address] [address] Hematocrit (Bld) [Volume fraction] 32.0 % Low 36.0-46.0 [facility] Comment on above: Performed By: #### C BC #### [address] [address] Hemoglobin (Bld) [Mass/Vol] 10.2 g/dL Low 12.0-16.0 [facility] Comment on above: Performed By: #### C BC #### [address] [address] MCH (RBC) [Entitic mass] 30.8 pg Normal 27.0-35.0 [facility] Comment on above: Performed By: #### C BC #### [address] [address] MCHC 32.1 % Normal 31.0-37.0 [facility] Comment on above: Performed By: #### C BC #### [address] [address] MCV (RBC) [Entitic vol] 96.2 fL Normal 80.0-100.0 [facility] Comment on above: Performed By: #### C BC #### [address] [address] Platelet 281 x10*3/mcL Normal 150-450 [facility] Comment on above: Performed By: #### C BC #### [address] [place] [address] Platelet mean volume (Bld) [Entitic vol] 9.2 fL Normal 6.7-10.6 [facility] Comment on above: Performed By: #### C BC #### [facility] [address] [place] [address] RBC 3.32 x10*6/mcL Low 3.80-5.20 [facility] Comment on above: Performed By: #### C BC #### [facility] [address] [place] [address] WBC 10.7 x10*3/mcL Normal 4.5-11.0 [facility] Comment on above: Performed By: #### C BC #### [facility] [address] [place] [address] CMPon 12-03-2023 Albumin [Mass/Vol] 4.0 g/dL 3.5 - 5.2 g/dL [facility] Albumin/Globulin [Mass ratio] 1.4 {ratio} 1.0 - 2.5 [facility] ALP [Catalytic activity/Vol] 102 U/L 35 - 104 U/L [facility] ALT [Catalytic activity/Vol] 19 U/L 5 - 33 U/L [facility] Anion gap [Moles/Vol] 10 mmol/L 9 - 17 mmol/L [facility] AST [Catalytic activity/Vol] 20 U/L NINF - 32 U/L [facility] Bilirubin [Mass/Vol] 0.2 mg/dL Low 0.3 - 1 .2 mg/dL [facility] Calcium [Mass/Vol] 8.4 mg/dL Low 8.6 - 10. 4 mg/dL [facility] Chloride [Moles/Vol] 104 mmol/L 98 - 10 7 mmol/L [facility] CO2 [Moles/Vol] 22 mmol/L 20 - 31 mmol/L [facility] Creatinine [Mass/Vol] 2.0 mg/dL High 0.5 - 0.9 mg/dL [facility] Est, Glom Filt Rate 32 Low - [facility] Comment on above: These results are not intended for use in patients <18 years of age. eGFR results are calculated without a race factor using the 2020 CKD-EPI equation. Careful clinical correlation is recommended, particularly when comparing to results calculated using previous equations. The CKD-EPI equation is less accurate in patients with extremes of muscle mass, extra-renal metabolism of creatine, excessive creatine ingestion, or following therapy that affects renal tubular secretion. Glucose [Mass/Vol] 168 mg/dL High 70 - 99 mg/dL [facility] Potassium [Moles/Vol] 4.5 mmol/L 3.7 - 5.3 mmol/L [facility] Protein [Mass/Vol] 6.9 g/dL 6.4 - 8.3 g/dL [facility] Sodium [Moles/Vol] 136 mmol/L 135 - 144 mmol/L [facility] Urea nitrogen [Mass/Vol] 33 mg/dL High 6 - 20 mg/dL [facility] Urea nitrogen/Creatinine [Mass ratio] 17 mg/mg 9 - 20 [facility] Comp Metabolic Profon 2023 Albumin [Mass/Vol] 4.0 g/dL Normal 3.5-5.2 [facility] Comment on above: Performed By: #### V BG #### [facility] [address] [place] [address] Vocational Placement Specialist: Patti Swanson MD Albumin/Glob Ratio 1.4 Normal 1.0-2.5 [facility] Comment on above: Performed By: #### V BG #### [facility] [address] [place] [address] Vocational Placement Specialist: Patti Swanson MD Alkaline Phos 102 U/L Normal 35-104 [facility] Comment on above: Performed By: #### V BG #### [facility] [address] [place] [address] Vocational Placement Specialist: Patti Swanson MD ALT [Catalytic activity/Vol] 19 U/L Normal 5-33 [facility] Comment on above: Performed By: #### V BG #### [facility] [address] [place], [place] [id number] Vocational Placement Specialist: Patti Swanson MD Anion gap [Moles/Vol] 10 mmol/L Normal 9-17 [facility] Comment on above: Performed By: #### V BG #### [facility] [address] [place], [place] [id number] Vocational Placement Specialist: Patti Swanson MD AST [Catalytic activity/Vol] 20 U/L Normal <32 [facility] Comment on above: Performed By: #### V BG #### [facility] [address] [place], [place] [id number] Vocational Placement Specialist: Patti Swanson MD Bilirubin [Mass/Vol] 0.2 mg/dL Low 0.3-1.2 [facility] Comment on above: Performed By: #### V BG #### [facility] [address] [place], [place] [id number] Vocational Placement Specialist: Patti Swanson MD BUN/CRE Ratio 17 Normal 9-20 [facility] Comment on above: Performed By: #### V BG #### [facility] [address] [place], [place] [id number] Vocational Placement Specialist: Patti Swanson MD Calcium [Mass/Vol] 8.4 mg/dL Low 8.6-10.4 [facility] Comment on above: Performed By: #### V BG #### [facility] [address] [place], [place] [id number] Vocational Placement Specialist: Patti Swanson MD Chloride [Moles/Vol] 104 mmol/L Normal 98-107 [facility] Comment on above: Performed By: #### V BG #### [facility] [address] [place], [place] [id number] Vocational Placement Specialist: Patti Swanson MD CO2 [Moles/Vol] 22 mmol/L Normal 20-31 [facility] Comment on above: Performed By: #### V BG #### [facility] [address] [place] [address] Vocational Placement Specialist: Patti Swanson MD Creatinine [Mass/Vol] 2.0 mg/dL High 0.5-0.9 [facility] Comment on above: Performed By: #### V BG #### [facility] [address] [place] [address] Vocational Placement Specialist: Patti Swanson MD GFR/1.73 sq M.predicted among non-blacks MDRD (S/P/Bld) [Vol rate/Area] 32 mL/min/{1.73_m2} Low >60 [facility] Comment on above: Result Comment: These results are not intended for use in patients <18 years of age. eGFR results are calculated without a race factor using the 2020 CKD-EPI equation. Careful clinical correlation is recommended, particularly when comparing to results calculated using previous equations. The CKD-EPI equation is less accurate in patients with extremes of muscle mass, extra-renal metabolism of creatine, excessive creatine ingestion, or following therapy that affects renal tubular secretion. Performed By: #### V BG #### [facility] [address] [place] [address] [place] [address] Vocational Placement Specialist: Patti Swanson MD Glucose [Mass/Vol] 168 mg/dL High 70-99 [facility] Comment on above: Performed By: #### V BG #### [facility] [address] [place] [address] Vocational Placement Specialist: Patti Swanson MD Potassium [Moles/Vol] 4.5 mmol/L Normal 3.7-5.3 [facility] Comment on above: Performed By: #### V BG #### [facility] [address] [place] [address] Vocational Placement Specialist: Patti Swanson MD Protein [Mass/Vol] 6.9 g/dL Normal 6.4-8.3 [facility] Comment on above: Performed By: #### V BG #### [facility] [address] [place] [address] Vocational Placement Specialist: Patti Swanson MD Sodium [Moles/Vol] 136 mmol/L Normal 135-144 [facility] Comment on above: Performed By: #### V BG #### [facility] [address] [place] [address] Vocational Placement Specialist: Patti Swanson MD Urea nitrogen [Mass/Vol] 33 mg/dL High 6-20 [facility] Comment on above: Performed By: #### V BG #### [facility] [address] [place] [address] Vocational Placement Specialist: Patti Swanson MD Diff Autoon 12-03-2023 Baso Absolute 0.2 x10*3/mcL Normal 0.0-0.2 [facility] Comment on above: Performed By: #### I GG #### [address] [address] Basophils/100 WBC (Bld) 1.7 % High 0.0-1.5 [facility] Comment on above: Performed By: #### I GG #### [address] [address] Eos Absolute 0.1 x10*3/mcL Normal 0.0-0.4 [facility] Comment on above: Performed By: #### I GG #### [address] [address] Eosinophils/100 WBC (Bld) 0.8 % Normal 0.0-5.4 [facility] Comment on above: Performed By: #### I GG #### [facility] [address] [place] [address] Lymph Absolute 3.9 x10*3/mcL Normal 1.0-4.8 [facility] Comment on above: Performed By: #### I GG #### [address] [address] Lymphocytes/100 WBC (Bld) 36.5 % Normal 27.2-40.8 [facility] Comment on above: Performed By: #### I GG #### [id number] [place] [address] Howell Absolute 0.5 x10*3/mcL Normal 0.1-1.1 [facility] Comment on above: Performed By: #### I GG #### [address] [address] Monocytes/100 WBC (Bld) 4.8 % Normal 3.7-11.9 [facility] Comment on above: Performed By: #### I GG #### [address] [address] Neutro Absolute 6.0 x10*3/mcL Normal 1.8-7.7 [facility] Comment on above: Performed By: #### I GG #### [address] [address] Neutro Auto 56.2 % Normal 47.2-70.8 [facility] Comment on above: Performed By: #### I GG #### [address] [address] Gastroenterology Consultatio non 12-03-2023 Gastroenterology Consultation Chief Complaint Transfer from [facility] secondary to upper GI bleed, accepted by Dr. Kingsley prior to transfer Reason for Consultation Hematemesis History of Present Illness 38-year-old female well-known to our practice with multiple hospitalizations secondary to hematemesis presents with the same. Hemoglobin stable at the patient's baseline. Denies any further episodes of hematemesis. Patient notes that her last episode of hematemesis was prior to transfer at the outside facility. The patient notes abdominal pain. Reports nausea over the last several days. Notes ongoing nausea. I was consulted and further evaluation and management of suspected acute upper GI bleed. Physical Exam Vitals & Measurements T: 36.8 ?C (Oral) HR: 96 (Monitored) RR: 19 BP: 136/80 SpO2: 96% HT: 176 cm WT: 71.2 kg BMI: 22.99 General: Alert and oriented, well nourished, no acute distress Eye: tracks well, anicteric sclera HENT: Normocephalic, external ear normal, no discharge, moist oral mucosa Neck: Supple, non-tender, trachea midline Lungs: symmetrical expansion, nonlabored respirations Heart: regular rate, distal pulses intact Abdomen: soft, mild tenderness to palpation, nondistended Musculoskeletal: no deformity, no swelling Skin: clean, dry, intact, no jaundice Neurologic: A&Ox3, no focal deficits Psychiatric: Cooperative, appropriate mood and affect Additional Vitals No qualifying data available. Assessment/Plan 1. Upper GI bleed 2. Diabetes mellitus-Type I 3. Chronic kidney disease 4. Hypertension 5. Familial hypertriglyceridemia 6. Nonalcoholic fatty liver 7. Rheumatoid arthritis 38-year-old with 1. Hematemesis: ? Agree with IV PPI ? N.p.o. ? Plan for EGD today ? Monitor H&H, transfusing as required ? Further recommendations pending endoscopic findings ?Outpatient GI follow-up in management of the patient's chronic medical conditions 2. Abdominal pain/nausea, vomiting: ? Symptomatic management ? If symptoms persist consideration of imaging is recommended Thanks for the consultation, please call with any questions. Problem List/Past Medical History Ongoing Anemia Chronic abdominal pain Chronic kidney disease Chronic nausea Chronic vomiting Diabetes Diabetes mellitus-Type I Familial hypertriglyceridemia Hypertension Insomnia Nonalcoholic fatty liver Palliative care status Pancreatitis Refractory nausea and vomiting Rheumatoid arthritis Historical No qualifying data Procedure/Surgical History whipple REMOVAL OF TONSILS Spleen removal appendix removal pancreas removal gallbladder Esophagogastroduodenoscop y (09/08/2020) Esophagogastroduodenoscop y Polypectomy (08/06/2022) Esophagogastroduodenoscop y (09/05/2022) Esophagogastroduodenoscop y Control Bleeding (09/23/2022) Esophagogastroduodenoscop y (10/27/2022) Esophagogastroduodenoscop y (12/29/2022) Colonoscopy (12/29/2022) port insertion (07/2023) Esophagogastroduodenoscop y (09/07/2023) Medications Inpatient cloNIDine 0.2 mg/24 hr transdermal film, extended release, 2 patches, Topical, Wednesday Compazine, 10 mg= 2 mL, IV Push, q6hr, PRN Dilaudid, 0.5 mg= 0.5 mL, IV Push, q2hr, PRN insulin aspart insulin pump, 1 units, Subcutaneous Continuous Normal Saline Flush 0.9% injectable solution, 10 mL, IV Push, BID NS 1,000 mL, 1000 mL, IV ondansetron, 4 mg= 2 mL, IV Push, q4hr, PRN pantoprazole Sodium Chloride 0.9% intravenous solution 1,000 mL, 1000 mL, IV Home ALPRAZolam 1 mg oral tablet, 1 mg= 1 tabs, Oral, TID, PRN Amitiza 24 mcg oral capsule, 24 mcg= 1 caps, Oral, BID, 2 refills amLODIPine 10 mg oral tablet, 5 mg= 0.5 tabs, Oral, qAM cloNIDine 0.2 mg/24 hr transdermal film, extended release, 2 patches, Topical, Wednesday Colace 100 mg oral capsule, 100 mg= 1 caps, Oral, BID, PRN Colace 100 mg oral capsule, 100 mg= 1 caps, Oral, BID, PRN, 1 refills Creon 12,000 units oral delayed release capsule, 3 caps, Oral, TID, with meals dronabinol 5 mg oral capsule, 5 mg= 1 caps, Oral, BID, 1 refills GaviLAX oral powder for reconstitution, 17 g, Oral, BID, PRN insulin aspart 100 units/mL injectable solution, See Instructions, Via insulin pump Basal rate 1.25/hour with adjustments to 2 units/hour as needed lubiprostone 24 mcg oral capsule, 24 mcg= 1 caps, Oral, BID MiraLax oral powder for reconstitution, 17 g, Oral, BID, 1 refills Mirena 52 mg intrauterine device, 52 mg= 1 EA, Intrauteral, Once omeprazole 40 mg oral delayed release capsule, 40 mg= 1 caps, Oral, qAM omeprazole 40 mg oral delayed release capsule, 40 mg= 1 caps, Oral, BID, 1 refills, before a meal ondansetron 2 mg/mL injectable solution, 4 mg, q8hr, PRN, via port ondansetron 8 mg oral tablet, 8 mg= 1 tabs, SL, Daily, PRN oxyCODONE 5 mg oral tablet, 1-2 tabs, Oral, q4hr, PRN Plenvu oral powder for reconstitution, See Instructions, cy prep promethazine 25 mg/mL injectable solution, 25 mg= 1 mL, q6hr, PRN, via port QUEtiapine 100 (more content not included)... Normal [facility] Hgb & Hcton 12-03-2023 Hematocrit (Bld) [Volume fraction] 30.4 % Low 36.0-46.0 [facility] Comment on above: Performed By: #### H GBHCT #### [address] [address] Hemoglobin (Bld) [Mass/Vol] 9.8 g/dL Low 12.0-16.0 [facility] Comment on above: Performed By: #### H GBHCT #### [address] [address] Hematocrit (Bld) [Volume fraction] 31.3 % Low 36.0-46.0 [facility] Comment on above: Performed By: #### H GBHCT #### [address] [address] Hemoglobin (Bld) [Mass/Vol] 10.2 g/dL Low 12.0-16.0 [facility] Comment on above: Performed By: #### H GBHCT #### [address] [address] Hematocrit (Bld) [Volume fraction] 31.6 % Low 36.0-46.0 [facility] [facility] Comment on above: Performed By: #### C BC #### [address] [address] Hemoglobin (Bld) [Mass/Vol] 10.4 g/dL Low 12.0-16.0 [facility] Comment on above: Performed By: #### C BC #### [address] [address] Hgb A1con 12-03-2023 Glucose [Mass/Vol] 183 mg/dL High 68-114 [facility] Comment on above: Result Comment: Math ematical Calc approx. The mean gluc equivalency of A1c Performed By: #### C [id number] #### [address] [place] [address] Hgb A1c 8.0 % A1c High 4.0-5.6 [facility] Comment on above: Result Comment: Refe rence Range: 4.0 - 5.6 % Normal 5.7 - 6.4 % Pre-Diabetes > 6.5 % Diabetes Performed By: #### C [id number] #### [address] [address] Lactic Acidon 12-03-2023 Lactate (BldV) [Moles/Vol] 0.8 mmol/L 0.5 - 2.2 mmol/L [facility] Lactate [Moles/Vol] 0.8 mmol/L Normal 0.5-2.2 [facility] Comment on above: Performed By: #### U [facility] #### [facility] [address] [place], [place] [id number] Vocational Placement Specialist: Patti Swanson MD Lipaseon 12-03-2023 Lipase [Catalytic activity/Vol] 6 U/L Low 13 - 60 U/L [facility] Lipase [Catalytic activity/Vol] 6 U/L Low 13-60 [facility] Comment on above: Performed By: #### V BG #### [facility] [address] [place], [place] [id number] Vocational Placement Specialist: Patti Swanson MD MRSA, PCRon 12-03-2023 LAB ONLY Result Called? No Normal [facility] Comment on above: Performed By: #### C [id number] #### [address] [address] Methicillin Resistant Staph aurus(MRSA) Not detected Normal Not Detected [facility] Comment on above: Result Comment: Mut ations or polymorphisms in primer or probe binding regions may affect detection of new or unknown MRSA variants resulting in a false negative. The [employer] Xpert MRSA Assay is a qualitative in vitro diagnostic test designed for rapid detection of Methicillin-Resistant Staphylococcus aureus (MRSA) from nasal swabs in patients at risk for nasal colonization.The test utilizes automated real-time polymerase chain reaction (PCR) to detect MRSA DNA,because the detection of MRSA is dependent on the number of organisms present. A positive test result does not necessarily indicate the presence of viable organism. It is however,presumptive for the presence of MRSA.Test results might be affected by concurrent antibiotic therapy. Therefore, therapeutic success or failure cannot be assessed using this test because DNA might persist following antimicrobial therapy. Mutations or polymorphisms in primer or probe binding regions may affect detection of new or unknown MRSA variants resulting in a false negative result. Results from the Xpert MRSA Assay should be interpreted in conjunction with other laboratory and clinical data available to the clinician. Performed By: #### C [id number] #### [address] [address] Magnesiumon 12-03-2023 Magnesium [Mass/Vol] 2.0 mg/dL Normal 1.7-2.4 [facility] Comment on above: Performed By: #### I GG #### [address] [address] No Panel Informationon 12-02 Interpretation and review of laboratory results Abnormal [facility] POC Glucose Randomon 024 Glucose [Mass/Vol] 108 mg/dL High 70-99 [facility] Comment on above: Performed By: #### H GBHCT #### [address] [address] Glucose [Mass/Vol] 164 mg/dL High 70-99 [facility] Comment on above: Performed By: #### I GG #### [address] [address] PTon 12-03-2023 INR Coag (PPP) [Relative time] 1.1 {INR} Normal <=3.5 [facility] Comment on above: Result Comment: INR has no normal range. INR Therapeutic range is: 2.0-3.0 (AF, CVA, TIAs, DVT prophylaxis, acute DVT) 2.5-3.5 (Mech heart valves, recurrent thrombosis/emboli) Performed By: #### H GBHCT #### [address] [address] PT Coag (PPP) [Time] 11.1 s Normal 9.2-12.0 [facility] Comment on above: Performed By: #### H GBHCT #### [address] [address] UA w Culture if Indon 2023 Color (U) Light-Yellow Normal Yellow [facility] Comment on above: Performed By: #### C [id number] #### [address] [address] Ketones Ql (U) Negative Normal Negative [facility] Comment on above: Performed By: #### C [id number] #### [address] [address] UA Blood Negative Normal Negative [facility] Comment on above: Performed By: #### C [id number] #### [address] [address] UA Clarity Clear Normal Clear [facility] Comment on above: Performed By: #### C [id number] #### [address] [address] UA Glucose Normal Normal Negative [facility] Comment on above: Performed By: #### C [id number] #### [address] [address] UA Leukocyte Esterase Negative Normal Negative [facility] Comment on above: Performed By: #### C [id number] #### [address] [place] [address] UA Nitrite Negative Normal Negative [facility] Comment on above: Performed By: #### C [id number] #### [address] [address] UA pH 5.0 Normal 4.5 - 7.8 [facility] Comment on above: Performed By: #### C [id number] #### [address] [address] UA Protein Negative Normal Negative [facility] Comment on above: Performed By: #### C [id number] #### [facility] [address] [place] [address] UA Source Clean Catch Normal [facility] Comment on above: Performed By: #### C [id number] #### [facility] [address] [place] [address] UA Spec Grav 1.012 Normal 1.003-1.03 5 [facility] Comment on above: Performed By: #### C [id number] #### [facility] [address] [place] [address] UA Urobilinogen Normal Normal 0.2 - 1.0 [facility] Comment on above: Performed By: #### C [id number] #### [address] [address] Urobilinogen (U) [Mass/Vol] Negative Normal Negative [facility] Comment on above: Performed By: #### C [id number] #### [place] [id number] CBC with Auto Differentialon 12-02-2023 Basophils (Bld) [#/Vol] 0.07 10*3/uL [facility] Basophils/100 WBC (Bld) 1 % 0 - 2 % [facility] Eosinophils (Bld) [#/Vol] [facility] Eosinophils/100 WBC (Bld) 0 % Low 1 - 4 % [facility] Erythrocyte distribution width (RBC) [Ratio] 13.5 % 11.8 - 14.4 % [facility] Hematocrit (Bld) [Volume fraction] 32.7 % Low 36.3 - 47.1 % [facility] Hemoglobin (Bld) [Mass/Vol] 10.5 g/dL Low 11.9 - 15.1 g/dL [facility] Immature granulocytes (Bld) [#/Vol] 0.04 10*3/uL [facility] Immature granulocytes/100 WBC (Bld) 0 % 0 [facility] Interpretation and review of laboratory results Abnormal [facility] Lymphocytes/100 WBC (Bld) 27 % 24 - 43 % [facility] Lymphocytes/100 WBC (Bld) 3.13 % [facility] MCH (RBC) [Entitic mass] 30.8 pg 25.2 - 33.5 pg [facility] MCHC (RBC) [Mass/Vol] 32.1 g/dL 28.4 - 34.8 g/dL [facility] MCV (RBC) [Entitic vol] 95.9 fL 82.6 - 102.9 fL [facility] Monocytes/100 WBC (Bld) 6 % 3 - 12 % [facility] Monocytes/100 WBC (Bld) 0.72 % [facility] Neutrophils/100 WBC (Bld) 66 % High 36 - 65 % [facility] Nucleated RBC/100 WBC (Bld) [Ratio] 0.0 % 0.0 per 100 WBC [facility] Platelet mean volume (Bld) [Entitic vol] 10.6 fL 8.1 - 13.5 fL [facility] Platelets (Bld) [#/Vol] 302 10*3/uL [facility] RBC (Bld) [#/Vol] 3.41 10*6/uL Low 3.95 - 5.11 m/uL [facility] Segmented neutrophils/100 WBC (Bld) 7.71 % [facility] WBC other (Bld) [#/Vol] 11.7 High [facility] CBC with Diffon 12-02-2023 Abs. Basophil 0.07 k/uL Normal 0.00-0.20 [facility] Comment on above: Performed By: #### V BG #### [facility] [address] [place] [address] Vocational Placement Specialist: Patti Swanson MD Abs. Eosinophil <0.03 Normal 0.00-0.44 [facility] Comment on above: Performed By: #### V BG #### [facility] [address] [place], [place] [id number] Vocational Placement Specialist: Patti Swanson MD Abs.Imm.Granulocyte 0.04 k/uL Normal 0.00-0.30 [facility] Comment on above: Performed By: #### V BG #### [facility] [address] [place] [address] Dr[place], [place] [id number] Vocational Placement Specialist: Patti Swanson MD Abs.Neutrophil (Seg) 7.71 k/uL Normal 1.50-8.10 [facility] Comment on above: Performed By: #### V BG #### [address] [place], [place] [id number] Vocational Placement Specialist: Patti Swanson MD Basophils/100 WBC (Bld) 1 % Normal 0-2 [facility] Comment on above: Performed By: #### V BG #### [address] [place], [facility] Vocational Placement Specialist: Patti Swanson MD Eosinophils/100 WBC (Bld) 0 % Low 1-4 [facility] Comment on above: Performed By: #### V BG #### [address] [place] [address] Vocational Placement Specialist: Patti Swanson MD Erythrocyte distribution width (RBC) [Ratio] 13.5 % Normal 11.8-14.4 [facility] Comment on above: Performed By: #### V BG #### [facility] [address] [place] [address] Dr. [place], [facility]83 Vocational Placement Specialist: Patti Swanson MD Hematocrit (Bld) [Volume fraction] 32.7 % Low 36.3-47.1 [facility] Comment on above: Performed By: #### V BG #### [address] [place] [address] Vocational Placement Specialist: Patti Swanson MD Hemoglobin (Bld) [Mass/Vol] 10.5 g/dL Low 11.9-15.1 [facility] Comment on above: Performed By: #### V BG #### [facility] [address] [place], [place] [id number] Vocational Placement Specialist: Patti Swanson MD Immature granulocytes/100 WBC (Bld) 0 % Normal 0 [facility] Comment on above: Performed By: #### V BG #### [facility] [address] [place], [facility] Vocational Placement Specialist: Patti Swanson MD Lymphocytes (Bld) [#/Vol] 3.13 10*3/uL Normal 1.10-3.70 [facility] Comment on above: Performed By: #### V BG #### [address] [place], [facility] Vocational Placement Specialist: Patti Swanson MD Lymphocytes/100 WBC (Bld) 27 % Normal 24-43 [facility] Comment on above: Performed By: #### V BG #### [address] [place], [facility]83 Vocational Placement Specialist: Patti Swanson MD MCH (RBC) [Entitic mass] 30.8 pg Normal 25.2-33.5 [facility] Comment on above: Performed By: #### V BG #### [address] [place], [facility]83 Vocational Placement Specialist: Patti Swanson MD MCHC (RBC) [Mass/Vol] 32.1 g/dL Normal 28.4-34.8 [facility] Comment on above: Performed By: #### V BG #### [address] [place], [facility]83 Vocational Placement Specialist: Patti Swanson MD MCV (RBC) [Entitic vol] 95.9 fL Normal 82.6-102.9 [facility] Comment on above: Performed By: #### V BG #### [address] [place] [facility]83 Vocational Placement Specialist: Patti Swanson MD Monocytes (Bld) [#/Vol] 0.72 10*3/uL Normal 0.10-1.20 [facility] Comment on above: Performed By: #### V BG #### [facility] [address] [place], [place] [id number] Vocational Placement Specialist: Patti Swanson MD Monocytes/100 WBC (Bld) 6 % Normal 3-12 [facility] Comment on above: Performed By: #### V BG #### [facility] [address] [place] [address] Vocational Placement Specialist: Patti Swanson MD Neutrophil (Seg) 66 % High 36-65 [facility] Comment on above: Performed By: #### V BG #### [facility] [address] [place], [place] [address] Vocational Placement Specialist: Patti Swanson MD NRBC Automated 0.0 per 100 WBC Normal 0.0 [facility] Comment on above: Performed By: #### V BG #### [address] [place], [place] [address] Vocational Placement Specialist: Patti Swanson MD Platelet mean volume (Bld) [Entitic vol] 10.6 fL Normal 8.1-13.5 [facility] Comment on above: Performed By: #### V BG #### [address] [place] [address] Vocational Placement Specialist: Patti Swanson MD Platelets (Bld) [#/Vol] 302 10*3/uL Normal 138-453 [facility] Comment on above: Performed By: #### V BG #### [address] [place], [place] [address] Vocational Placement Specialist: Patti Swanson MD RBC (Bld) [#/Vol] 3.41 10*6/uL [place] 3.95-5.11 [facility] Comment on above: Performed By: #### V BG #### [facility] [address] [place], [place] [address] Vocational Placement Specialist: Patti Swanson MD WBC (Bld) [#/Vol] 11.7 10*3/uL High 3.5-11.3 [facility] Comment on above: Performed By: #### V BG #### [facility] [address] [place] [id number] Vocational Placement Specialist: Patti Swanson MD CT ABDOMEN PELVIS WO CONTRAS Ton 12-02-2023 CT ABDOMEN PELVIS WO CONTRAST EXAMINATION: CT OF THE ABDOMEN AND PELVIS WITHOUT CONTRAST 12/02/2023 9:47 pm TECHNIQUE: CT of the abdomen and pelvis was performed without the administration of intravenous contrast. Multiplanar reformatted images are provided for review. Automated exposure control, iterative reconstruction, and/or weight based adjustment of the mA/kV was utilized to reduce the radiation dose to as low as reasonably achievable. COMPARISON: CT abdomen and pelvis 08/24/2023 HISTORY: ORDERING SYSTEM PROVIDED HISTORY: Hematemesis and right upper quadrant pain TECHNOLOGIST PROVIDED HISTORY: Hematemesis and right upper quadrant pain Decision Support Exception - unselect if not a suspected or confirmed emergency medical condition->Emergency Medical Condition (MA) Is the patient ?->No FINDINGS: Lower Chest: Imaged lung bases are unremarkable. Organs: Liver is normal in contour. There are postsurgical changes related to prior Whipple surgery. This decreased pneumobilia. There is mild prominence of the common bile duct, similar to prior, which may be secondary to reservoir phenomenon. No renal or ureteral calculi are identified. No hydronephrosis or hydroureter. GI/Bowel: The stomach is unremarkable. Yes please the small bowel is nondilated. No evidence of bowel obstruction. There is a large stool burden throughout the colon, similar to prior. No evidence of acute appendicitis. Pelvis: Intrauterine device is present within the uterus. The urinary bladder is unremarkable. Peritoneum/Retroperitoneu m: No free intraperitoneal air or free fluid. No evidence of abdominal or pelvic lymphadenopathy. Bones/Soft Tissues: No acute abnormalities. IMPRESSION: 1. Large stool burden throughout the colon, similar to prior. 2. Otherwise, no acute abnormality identified in the abdomen or pelvis. Interpreted by: Paula Salguero MD Signed by: Paula Salguero MD 12/02/23 Final result Normal [facility] CT Abdomen and Pelvis WO johnny ramoson 12-02-2023 1. Large stool burde n throughout the colon, similar to prior. 2. Otherwise, no acute abnormality identified in the abdomen or pelvis. [facility] EXAMINATION: CT OF THE ABDOMEN AND PELVIS WITHOUT CONTRAST 12/02/2023 9:47 pm TECHNIQUE: CT of the abdomen and pelvis was performed without the administration of intravenous contrast. Multiplanar reformatted images are provided for review. Automated exposure control, iterative reconstruction, and/or weight based adjustment of the mA/kV was utilized to reduce the radiation dose to as low as reasonably achievable. COMPARISON: CT abdomen and pelvis 08/24/2023 HISTORY: ORDERING SYSTEM PROVIDED HISTORY: Hematemesis and right upper quadrant pain TECHNOLOGIST PROVIDED HISTORY: Hematemesis and right upper quadrant pain Decision Support Exception - unselect if not a suspected or confirmed emergency medical condition->Emergency Medical Condition (MA) Is the patient ?->No FINDINGS: Lower Chest: Imaged lung bases are unremarkable. Organs: Liver is normal in contour. There are postsurgical changes related to prior Whipple surgery. This decreased pneumobilia. There is mild prominence of the common bile duct, similar to prior, which may be secondary to reservoir phenomenon. No renal or ureteral calculi are identified. No hydronephrosis or hydroureter. GI/Bowel: The stomach is unremarkable. Yes please the small bowel is nondilated. No evidence of bowel obstruction. There is a large stool burden throughout the colon, similar to prior. No evidence of acute appendicitis. Pelvis: Intrauterine device is present within the uterus. The urinary bladder is unremarkable. Peritoneum/Retroperitoneu m: No free intraperitoneal air or free fluid. No evidence of abdominal or pelvic lymphadenopathy. Bones/Soft Tissues: No acute abnormalities. [facility] Paula Salguero MD - 12/02/2023 EXAMINATION: CT OF THE ABDOMEN AND PELVIS WITHOUT CONTRAST 12/02/2023 9:47 pm TECHNIQUE: CT of the abdomen and pelvis was performed without the administration of intravenous contrast. Multiplanar reformatted images are provided for review. Automated exposure control, iterative reconstruction, and/or weight based adjustment of the mA/kV was utilized to reduce the radiation dose to as low as reasonably achievable. COMPARISON: CT abdomen and pelvis 08/24/2023 HISTORY: ORDERING SYSTEM PROVIDED HISTORY: Hematemesis and right upper quadrant pain TECHNOLOGIST PROVIDED HISTORY: Hematemesis and right upper quadrant pain Decision Support Exception - unselect if not a suspected or confirmed emergency medical condition->Emergency Medical Condition (MA) Is the patient ?->No FINDINGS: Lower Chest: Imaged lung bases are unremarkable. Organs: Liver is normal in contour. There are postsurgical changes related to prior Whipple surgery. This decreased pneumobilia. There is mild prominence of the common bile duct, similar to prior, which may be secondary to reservoir phenomenon. No renal or ureteral calculi are identified. No hydronephrosis or hydroureter. GI/Bowel: The stomach is unremarkable. Yes please the small bowel is nondilated. No evidence of bowel obstruction. There is a large stool burden throughout the colon, similar to prior. No evidence of acute appendicitis. Pelvis: Intrauterine device is present within the uterus. The urinary bladder is unremarkable. Peritoneum/Retroperitoneu m: No free intraperitoneal air or free fluid. No evidence of abdominal or pelvic lymphadenopathy. Bones/Soft Tissues: No acute abnormalities. IMPRESSION: 1. Large stool burden throughout the colon, similar to prior. 2. Otherwise, no acute abnormality identified in the abdomen or pelvis. [facility] Radiology Study observation (narrative) [facility] CT Abdomen and Pelvis WO con trastOrdered By: Paula Salguero on 12-02-2023 [facility] Work Phone: Gastroenterology Office/Clin ic Noteon 12-02-2023 Gastroenterology Office/Clinic Note Chief Complaint 1 year f/u History of Present Illness Patient presents to GI Clinic for follow up of GRACE and constipation. Was hospitalized 09/05-09/06 for hematemesis, continues to have hematemesis mixed with melena. Has persistent nausea associated wtih rectal bleeding/vomiting blood. states she does nto feel anemic as she has experienced a hgb of as low as 7. long conversaiton had with her inregards ot need for evaluation at tertiary care center/VCE if neg scopes; voices understanding. EGD 09/07/2023 Impression Esophagus - no evidence of stenosis, varices or mass - GEJ 38 cm Stomach - no ulcer - no AVM - no old or active bleeding - Gastric polyps - seen on prior EGD - Evidence of Whipple procedure Healthy appearing anastomosis - Healthy afferent and efferent jejunal limbs No evidence of bleeding EGD 10/27/2022 Findings No gross lesions were noted in the esophagus. Z-line was noted at Copious amounts of retained bilious fluid which made visualization only fair. The fluid was extensively lavaged and aspirated. No actively bleeding lesions were appreciated. A prior placed hemostatic clip was noted in the gastric body. Few small 2-3mm sessile polyps in gastric fundus, body suggestive of possible underlying fundic gland polyps [prior biopsies demonstrated the same] There was evidence of prior Whipple surgery with healthy looking anastomosis. No gross lesions were noted in the examined portion of the afferent or the efferent jejunal loops. Bilious contents were noted in the lumen Impression and Plan EGD: Diagnosis: Gastric polyps ([id number] K31.7, Discharge, Medical), H/O Whipple procedure ([id number] Z90.410, Discharge, Medical). Orders: There is no evidence of active overt upper GI bleeding at this time. Monitor Hemoglobin/ Hematocrit- transfuse as needed to keep Hb%>7g/dL Continue PPI. IV antiemetics as needed Avoid NSAIDs. kub 10/27/2022 (10/27/2022 09:53 EDT XR Abdomen 2 Views) IMPRESSION: 1. No pneumoperitoneum. 2. Large degree of stool, probable constipation. HPI from hospitalization: This a 31-year-old woman who presented to the ED with chief complaint of multiple episodes of nausea, vomiting with few episodes containing bright red blood in them. Patient has pertinent history of Whipple's [indication being chronic pancreatitis requiring pancreatectomy, subsequent splenectomy in the setting of familial hyperlipidemia] At the time of admission found to be hemodynamically stable but tachycardic. Patient denies any fever/chills, sick contacts, travel history, diarrhea,, melena or vu hematochezia Patient was found to have normocytic, normochromic anemia with Hb of 8.9 g/dL at the time of presentation 10/26/2022. Patient was noted to have CMP with hypokalemia of 5.6, BUN/creatinine of 36/1.91 Old records, imaging reviewed. Patient underwent EGD last on 09/23/2022 which showed evidence of the postprocedure, multiple gastric polyps, prior placed), multiple superficial oozing AVMs versus erosions with hemostasis achieved with a bipolar cautery probe. Gastroenteric anastomosis was healthy in appearance. There were normal-appearing efferent and afferent jejunal limbs. Prior EGD done on 09/05/2022 showed bleeding gastric erosions which were clipped; gastric polyps; normal gastric anastomosis EGD done on 08/06/2022 showed evidence of pylorus sparing Whipple's procedure multiple benign-appearing polyps; healthy-appearing gastric anastomosis with normal efferent and afferent jejunal limbs EGD from 09/08/2020 showed normal stomach with evidence of prior to procedure; LV anastomosis; normal-2019 CTAP (08/24/2022 00:[address] Abd Pelvis w/o IV Cont Stone Prot.) IMPRESSION: 1. Patient has had two previous CT stone studies this month. There remains no evidence of nephrolithiasis. 2. Prior Whipple procedure. Prior splenectomy. 3. Constipation unchanged. EGD 09/08/2020 Impression and Plan EGD: Diagnosis: Hematemesis ([id number] K92.0, Discharge, Medical). Notes: Impression: -normal esophagus -normal stomach -evidence of prior small bowel surgery, normal anastomosis, afferent and efferent limb -no evidence of recent gi blood loss Recommendations: -return patient to [facility] -PPI bid -start clears and advance as tolerated -anemia workup per primary service pCP: Dr Mccarty nephro: Dr Valentine Hep/biliary surg: Flory Brantley Psych: ranna neuro: Afrin Endocrine: Rudy Matamoros gen surg at [place]: Dr Perkins gen surg at [place]: Dr Morillo gen surg at [place]: Dr Cheryl Nguyễn Review of Systems Constitutional: No fevers, chills, sweats Eye: No recent visual problems ENMT: No ear pain, nasal congestion, sore throat Respiratory: No shortness of breath, cough Cardiovascular: No Chest pain, palpitations, syncope Gastrointestinal: SEE HPI Genitourinary: No hematuria, no urgency/frequency Lymph: Negative for bruising tendency, swollen lymph glands Endocrine: Negative for excessive thirst (more content not included)... Normal [facility] HCG, ,Urineon 12-01 Beta HCG ( test) Ql (U) Negative Normal NEG [facility] Comment on above: Result Comment: Spec imens with hCG levels near the threshold of the test (25 mIU/mL) may give a negative or indeterminate result. In such cases, another test should be performed with a new specimen in 48-72 hours. If early is suspected clinically in this setting, correlation with quantitative serum b-hCG level is suggested. [facility] has confirmed the use of plasma for this test. This has not been cleared or approved by the U.S. Food and Drug Administration. The FDA has determined that such clearance is not necessary. Performed By: #### V BG #### [facility] [address] [place] [address] Vocational Placement Specialist: Patti Swanson MD Urinalysison 12-02-2023 Bilirubin Ql (U) Negative NEGATIVE [facility] Clarity (U) Clear Clear [facility] Color (U) Yellow Yellow [facility] Glucose Test strip (U) [Mass/Vol] Negative NEGATIVE mg/dL [facility] Hemoglobin Auto test strip Ql (U) Negative NEGATIVE [facility] Interpretation and review of laboratory results Abnormal [facility] Ketones (U) [Mass/Vol] Negative NEGAT PAGE mg/dL [facility] Leukocyte esterase Test strip Ql (U) Negative NEGATIVE [facility] Nitrite Ql (U) Negative NEGATIVE [facility] pH (U) 6.0 [pH] 5.0 - 9.0 [facility] Protein (U) [Mass/Vol] Negative NEGAT PAGE mg/dL [facility] Specific gravity (U) [Rel density] 1.025 High 1.010 - 1.020 [facility] Urobilinogen Qn (U) Normal 0.0 - 1. 0 EU/dL [facility] Urinalysis, Routineon 2023 Bilirubin, SemiQt,Ur Negative Normal NEG [facility] Comment on above: Performed By: #### V BG #### [facility] [address] [place] [address] Dr. [place], [place] [id number] Vocational Placement Specialist: Patti Swanson MD Blood, Urine Negative Normal NEG [facility] Comment on above: Performed By: #### V BG #### [facility] [address] [place] [address] [place], [place] [id number] Vocational Placement Specialist: Patti Swanson MD Clarity (U) Clear Normal CLEAR [facility] Comment on above: Performed By: #### V BG #### [facility] [address] [place] [address] [place], [place] [phone] Vocational Placement Specialist: Patti Swanson MD Color (U) Yellow Normal YEL [facility] Comment on above: Performed By: #### V BG #### [address] [place], [place] [phone] Vocational Placement Specialist: Patti Swanson MD Glucose Ql (U) Negative Normal NEG [facility] Comment on above: Performed By: #### V BG #### [facility] [address] [place] [address] Dr. [place], [place] [phone] Vocational Placement Specialist: Patti Swanson MD Ketones Ql (U) Negative Normal NEG [facility] Comment on above: Performed By: #### V BG #### [facility] [address] [place] [address] Dr. [place], [place] [id number] Vocational Placement Specialist: Patti Swanson MD Leukocyte esterase Test strip Ql (U) Negative Normal NEG [facility] Comment on above: Performed By: #### V BG #### [facility] [address] [place] [address] Dr. [place], [place] [id number] Vocational Placement Specialist: Patti Swanson MD Nitrite,Ur Negative Normal [facility] Comment on above: Performed By: #### V BG #### [facility] [address] [place] [address] [place] [address] Vocational Placement Specialist: Patti Swanson MD PH,Ur 6.0 Normal 5.0-9.0 [facility] Comment on above: Performed By: #### V BG #### [facility] [address] [place], [facility] Vocational Placement Specialist: Patti Swanson MD Protein Ql (U) Negative Normal NEG [facility] Comment on above: Performed By: #### V BG #### [facility] [address] [place] [phone] Vocational Placement Specialist: Patti Swanson MD Spec. [place],Ur 1.025 High 1.010-1.02 0 [facility] Comment on above: Performed By: #### V BG #### [facility] [address] [place] [phone] Vocational Placement Specialist: Patti Swanson MD Urobilinogen,Ur Normal Normal 0.0-1.0 [facility] Comment on above: Performed By: #### V BG #### [facility] [address] [place] [phone] Vocational Placement Specialist: Patti Swanson MD Urine Preg (Lab)on 4 HCG ( test) Ql (U) Negative NEGATIVE [facility] Comment on above: Specimens with hCG l evels near the threshold of the test (25 mIU/mL) may give a negative or indeterminate result. In such cases, another test should be performed with a new specimen in 48-72 hours. If early is suspected clinically in this setting, correlation with quantitative serum b-hCG level is suggested. [facility] the use [facility] for this test. This has not been cleared or approved by the U.S. Food and Drug Administration. The FDA has determined that such clearance is not necessary. [facility] CBC with Auto Differentialon 10-17-2023 Basophils (Bld) [#/Vol] 0.22 10*3/uL High [facility] Basophils/100 WBC (Bld) 2 % 0 - 2 % [facility] Eosinophils (Bld) [#/Vol] 0.11 10*3/uL [facility] Eosinophils/100 WBC (Bld) 1 % 1 - 4 % [facility] Erythrocyte distribution width (RBC) [Ratio] 13.4 % 11.8 - 14.4 % [facility] Hematocrit (Bld) [Volume fraction] 36.0 % Low 36.3 - 47.1 % [facility] Hemoglobin (Bld) [Mass/Vol] 11.4 g/dL Low 11.9 - 15.1 g/dL [facility] Immature granulocytes (Bld) [#/Vol] 0.00 10*3/uL [facility] Immature granulocytes/100 WBC (Bld) 0 % 0 [facility] Interpretation and review of laboratory results Abnormal [facility] Lymphocytes/100 WBC (Bld) 18 % Low 24 - 43 % [facility] Lymphocytes/100 WBC (Bld) 1.94 % [facility] MCH (RBC) [Entitic mass] 31.0 pg 25.2 - 33.5 pg [facility] MCHC (RBC) [Mass/Vol] 31.7 g/dL 28.4 - 34.8 g/dL [facility] MCV (RBC) [Entitic vol] 97.8 fL 82.6 - 102.9 fL [facility] Monocytes/100 WBC (Bld) 4 % 3 - 12 % [facility] Monocytes/100 WBC (Bld) 0.43 % [facility] Morphology Tc (Bld) [Interp] Normal [facility] Neutrophils/100 WBC (Bld) 75 % High 36 - 65 % [facility] Nucleated RBC/100 WBC (Bld) [Ratio] 0.0 % 0.0 per 100 WBC [facility] Platelet mean volume (Bld) [Entitic vol] 10.8 fL 8.1 - 13.5 fL [facility] Platelets (Bld) [#/Vol] 268 10*3/uL [facility] RBC (Bld) [#/Vol] 3.68 10*6/uL Low 3.95 - 5.11 m/uL [facility] Segmented neutrophils/100 WBC (Bld) 8.10 % [facility] WBC other (Bld) [#/Vol] 10.8 [facility] CBC with Diffon 10-17-2023 Abs. Basophil 0.22 k/uL High 0.0-0.2 [facility] Comment on above: Performed By: #### U AMIC CG #### [facility] [address] [place], [place] [phone] Vocational Placement Specialist: Patti Swanson MD Abs.Imm.Granulocyte 0.00 k/uL Normal 0.00-0.30 [facility] Comment on above: Performed By: #### U AMIBob [facility] #### [facility] [address] [place], [place] [phone] Vocational Placement Specialist: Patti Swanson MD Abs.Neutrophil (Seg) 8.10 k/uL Normal 1.50-8.10 [facility] Comment on above: Performed By: #### U AMIC [facility] #### [facility] [address] [place] [address] [place], [place] [phone] Vocational Placement Specialist: Patti Swanson MD Basophils/100 WBC (Bld) 2 % Normal 0-2 [facility] Comment on above: Performed By: #### U AMIBob [facility] #### [facility] [address] [place] [address] [place], [place] [phone] Vocational Placement Specialist: Patti Swanson MD Eosinophils (Bld) [#/Vol] 0.11 10*3/uL Normal 0.00-0.44 [facility] Comment on above: Performed By: #### U AMIC CG #### [facility] [address] [place], [place] [phone] Vocational Placement Specialist: Patti Swanson MD Eosinophils/100 WBC (Bld) 1 % Normal 1-4 [facility] Comment on above: Performed By: #### U AMIC CG #### [facility] [address] [place], [place] [phone] Vocational Placement Specialist: Patti Swanson MD Immature granulocytes/100 WBC (Bld) 0 % Normal 0 [facility] Comment on above: Performed By: #### U AMIC, [facility] #### [facility] [address] [place], [place] 6015783 Vocational Placement Specialist: Patti Swanson MD Lymphocytes (Bld) [#/Vol] 1.94 10*3/uL Normal 1.10-3.70 [facility] Comment on above: Performed By: #### U AMIC, [facility] #### [facility] [address] [place], [place] 6196583 Vocational Placement Specialist: Patti Swanson MD Lymphocytes/100 WBC (Bld) 18 % [place] 24-43 [facility] Comment on above: Performed By: #### U AMIC, [facility] #### [facility] [address] [place] [address] [place]. [place], [place] [phone] Vocational Placement Specialist: Patti Swanson MD Monocytes (Bld) [#/Vol] 0.43 10*3/uL Normal 0.10-1.20 [facility] Comment on above: Performed By: #### U AMIC, [facility] #### [address] [place], [place] [phone] Vocational Placement Specialist: Patti Swanson MD Monocytes/100 WBC (Bld) 4 % Normal 3-12 [facility] Comment on above: Performed By: #### U AMIC, [facility] #### [facility] [address] [place], [place] [phone] Vocational Placement Specialist: Patti Swanson MD Morphology Tc (Bld) [Interp] Normal Normal [facility] Comment on above: Performed By: #### U AMIC, CG #### [facility] [address] [place], [place] 6755983 Vocational Placement Specialist: Patti Swanson MD Neutrophil (Seg) 75 % High 36-65 [facility] Comment on above: Performed By: #### U AMIC, CG #### [facility] [address] [place] [address] [place] [address] Vocational Placement Specialist: Patti Swanson MD Erythrocyte distribution width (RBC) [Ratio] 13.4 % Normal 11.8-14.4 [facility] Comment on above: Performed By: #### U AMIC CG #### [address] [place], [place] [phone] Vocational Placement Specialist: Patti Swanson MD Hematocrit (Bld) [Volume fraction] 36.0 % Low 36.3-47.1 [facility] Comment on above: Performed By: #### U AMIC, CG #### [address] [place], [place] 1950483 Vocational Placement Specialist: Patti Swanson MD Hemoglobin (Bld) [Mass/Vol] 11.4 g/dL [place] 11.9-15.1 [facility] Comment on above: Performed By: #### U AMIC CG #### [address] [place] [address] Vocational Placement Specialist: Patti Swanson MD MCH (RBC) [Entitic mass] 31.0 pg Normal 25.2-33.5 [facility] Comment on above: Performed By: #### U AMIC, CG #### [address] [place], [place] [phone] Vocational Placement Specialist: Patti Swanson MD MCHC (RBC) [Mass/Vol] 31.7 g/dL Normal 28.4-34.8 [facility] Comment on above: Performed By: #### U AMIC, UHCG #### [address] [place] [address] Vocational Placement Specialist: Patti Swanson MD MCV (RBC) [Entitic vol] 97.8 fL Normal 82.6-102.9 [facility] Comment on above: Performed By: #### U AMIC, UHCG #### [facility] [address] [place] [address] [place], [place] [phone] Vocational Placement Specialist: Patti Swanson MD NRBC Automated 0.0 per 100 WBC Normal 0.0 [facility] Comment on above: Performed By: #### U AMIC, UHCG #### [facility] [address] [place], [place] [phone] Vocational Placement Specialist: Patti Swanson MD Platelet mean volume (Bld) [Entitic vol] 10.8 fL Normal 8.1-13.5 [facility] Comment on above: Performed By: #### U AMIC, UHCG #### [address] [place], [place] 2057083 Vocational Placement Specialist: Patti Swanson MD Platelets (Bld) [#/Vol] 268 10*3/uL Normal 138-453 [facility] Comment on above: Performed By: #### U AMIC CG #### [address] [place], [place] 4658983 Vocational Placement Specialist: Patti Swanson MD RBC (Bld) [#/Vol] 3.68 10*6/uL [place] 3.95-5.11 [facility] Comment on above: Performed By: #### U AMIC, UHCG #### [address] [place], [place] 8971483 Vocational Placement Specialist: Patti Swanson MD WBC (Bld) [#/Vol] 10.8 10*3/uL Normal 3.5-11.3 [facility] Comment on above: Performed By: #### U AMIC, UHCG #### [address] [place] [address] Vocational Placement Specialist: Patti Swanson MD [facility] Albumin [Mass/Vol] 4.4 g/dL 3.5 - 5.2 g/dL [facility] Albumin/Globulin [Mass ratio] 1.3 {ratio} 1.0 - 2.5 [facility] ALP [Catalytic activity/Vol] 95 U/L 35 - 104 U/L [facility] ALT [Catalytic activity/Vol] 19 U/L 5 - 33 U/L [facility] Anion gap [Moles/Vol] 10 mmol/L 9 - 17 mmol/L [facility] AST [Catalytic activity/Vol] 21 U/L NINF - 32 U/L [facility] Bilirubin [Mass/Vol] 0.2 mg/dL Low 0.3 - 1 .2 mg/dL [facility] Calcium [Mass/Vol] 8.7 mg/dL 8.6 - 10. 4 mg/dL [facility] Chloride [Moles/Vol] 107 mmol/L 98 - 10 7 mmol/L [facility] CO2 [Moles/Vol] 20 mmol/L 20 - 31 mmol/L [facility] Creatinine [Mass/Vol] 2.1 mg/dL High 0.5 - 0.9 mg/dL [facility] Est, Glom Filt Rate 31 [place] - [facility] Comment on above: These results are not intended for use in patients <18 years of age. eGFR results are calculated without a race factor using the 2020 CKD-EPI equation. Careful clinical correlation is recommended, particularly when comparing to results calculated using previous equations. The CKD-EPI equation is less accurate in patients with extremes of muscle mass, extra-renal metabolism of creatine, excessive creatine ingestion, or following therapy that affects renal tubular secretion. Glucose [Mass/Vol] 122 mg/dL High 70 - 99 mg/dL [facility] Potassium [Moles/Vol] 4.7 mmol/L 3.7 - 5.3 mmol/L [facility] Protein [Mass/Vol] 7.7 g/dL 6.4 - 8.3 g/dL [facility] Sodium [Moles/Vol] 137 mmol/L 135 - 144 mmol/L [facility] Urea nitrogen [Mass/Vol] 31 mg/dL High 6 - 20 mg/dL [facility] Urea nitrogen/Creatinine [Mass ratio] 15 mg/mg 9 - 20 [facility] Comp Metabolic Profon 2023 Albumin [Mass/Vol] 4.4 g/dL Normal 3.5-5.2 [facility] Comment on above: Performed By: #### U AMIC, UHCG #### [facility] [address] [place], [place] [phone] Vocational Placement Specialist: Patti Swanson MD Albumin/Glob Ratio 1.3 Normal 1.0-2.5 [facility] Comment on above: Performed By: #### U AMIC, CG #### [facility] [address] [place], [place] [phone] Vocational Placement Specialist: Patti Swanson MD Alkaline Phos 95 U/L Normal 35-104 [facility] Comment on above: Performed By: #### U AMIC, CG #### [facility] [address] [place], [place] 3150383 Vocational Placement Specialist: Patti Swanson MD ALT [Catalytic activity/Vol] 19 U/L Normal 5-33 [facility] Comment on above: Performed By: #### U AMIC, CG #### [facility] [address] [place], [place] [address] Vocational Placement Specialist: Patti Swanson MD Anion gap [Moles/Vol] 10 mmol/L Normal 9-17 [facility] Comment on above: Performed By: #### U AMIC, UHCG #### [facility] [address] [place], [place] [phone] Vocational Placement Specialist: Patti Swanson MD AST [Catalytic activity/Vol] 21 U/L Normal <32 [facility] Comment on above: Performed By: #### U AMIC, UHCG #### [facility] [address] [place], [place] [phone] Vocational Placement Specialist: Patti Swanson MD Bilirubin [Mass/Vol] 0.2 mg/dL [place] 0.3-1.2 [facility] Comment on above: Performed By: #### U AMIC, CG #### [facility] [address] [place], [place] [phone] Vocational Placement Specialist: Patti Swanson MD BUN/CRE Ratio 15 Normal 9-20 [facility] Comment on above: Performed By: #### U AMIC, CG #### [facility] [address] [place], [place] 4475683 Vocational Placement Specialist: Patti Swanson MD Calcium [Mass/Vol] 8.7 mg/dL Normal 8.6-10.4 [facility] Comment on above: Performed By: #### U AMIC, CG #### [facility] [address] [place], [place] [phone] Vocational Placement Specialist: Patti Swanson MD Chloride [Moles/Vol] 107 mmol/L Normal 98-107 [facility] Comment on above: Performed By: #### U AMIBob [facility] #### [facility] [address] [place] [address] Dr. [place], [place] [phone] Vocational Placement Specialist: Patti Swanson MD CO2 [Moles/Vol] 20 mmol/L Normal 20-31 [facility] Comment on above: Performed By: #### U AMIC CG #### [facility] [address] [place], [place] [phone] Vocational Placement Specialist: Patti Swanson MD Creatinine [Mass/Vol] 2.1 mg/dL High 0.5-0.9 [facility] Comment on above: Performed By: #### U AMIC, CG #### [facility] [address] [place] [address] Vocational Placement Specialist: Patti Swanson MD GFR/1.73 sq M.predicted among non-blacks MDRD (S/P/Bld) [Vol rate/Area] 31 mL/min/{1.73_m2} Low >60 [facility] Comment on above: Result Comment: These results are not intended for use in patients <18 years of age. eGFR results are calculated without a race factor using the 2020 CKD-EPI equation. Careful clinical correlation is recommended, particularly when comparing to results calculated using previous equations. The CKD-EPI equation is less accurate in patients with extremes of muscle mass, extra-renal metabolism of creatine, excessive creatine ingestion, or following therapy that affects renal tubular secretion. Performed By: #### U [facility] #### [facility] [address] [place] [address] [place] [address] Vocational Placement Specialist: Patti Swanson MD Glucose [Mass/Vol] 122 mg/dL High 70-99 [facility] Comment on above: Performed By: #### [facility] #### [facility] [address] [place] [address] Vocational Placement Specialist: Patti Swanson MD Potassium [Moles/Vol] 4.7 mmol/L Normal 3.7-5.3 [facility] Comment on above: Performed By: #### U [facility] #### [address] [place] [address] Vocational Placement Specialist: Patti Swanson MD Protein [Mass/Vol] 7.7 g/dL Normal 6.4-8.3 [facility] Comment on above: Performed By: #### [facility] #### [facility] [address] [place] [address] Vocational Placement Specialist: Patti Swanson MD Sodium [Moles/Vol] 137 mmol/L Normal 135-144 [facility] Comment on above: Performed By: #### U [facility] #### [facility] [address] [place] [address] Vocational Placement Specialist: Patti Swanson MD Urea nitrogen [Mass/Vol] 31 mg/dL High 6-20 [facility] Comment on above: Performed By: #### U EFFIE [facility] #### [facility] [address] [place] [address] Vocational Placement Specialist: Patti Swanson MD Lipaseon 10-17-2023 Lipase [Catalytic activity/Vol] 5 U/L [place] 13 - 60 U/L [facility] [facility] Lipase [Catalytic activity/Vol] 5 U/L [place] 13-60 [facility] Comment on above: Performed By: #### U [facility] #### [facility] [address] [place] [address] Vocational Placement Specialist: Patti Swanson MD No Panel Informationon 10-16 Interpretation and review of laboratory results Abnormal [facility] PTon 10-17-2023 INR Coag (PPP) [Relative time] 1.1 {INR} Normal [facility] Comment on above: Result Comment: Therapeutic Range: Moderate Anticoagulant Intensity: INR = 2.0-3.0 High Anticoagulant Intensity: INR = 2.5-3.5 Performed By: #### Mati [facility] #### [facility] [address] [place] [address] Vocational Placement Specialist: Patti Swanson MD PT Coag (PPP) [Time] 13.6 s Normal 11.7-14.1 [facility] Comment on above: Performed By: #### U [facility] #### [facility] [address] [place] [address] Vocational Placement Specialist: Patti Swanson MD Protime-INRon 10-17-2023 INR Coag (PPP) [Relative time] 1.1 {INR} [facility] Comment on above: Therapeutic Range: Moderate Anticoagulant Intensity: INR = 2.0-3.0 High Anticoagulant Intensity: INR = 2.5-3.5 PT Coag (PPP) [Time] 13.6 s [facility] HbA1c HPLC (Bld) [Mass fract ion]on 09-20-2023 HbA1c (Bld) [Mass fraction] 7.8 % [facility] No Panel Informationon 09-19 Bedside Glucose 341 [facility] C DIFFICILE BY PCRon 024 C. difficile toxin genes DAVIS+probe Ql (Stl) TOXIGENIC C DIFF Negative (qualifier value) 027 NAP1 Negative (qualifier value) Normal PRNEG [facility] Comment on above: Performed By: #### 5 4067-4 #### [facility] ([id number]) [address] [facility], [address] [place] [address] Calprotectin (Stl) [Mass/Mas s]on 09-11-2023 Calprotectin, F <50.0 Normal <50.0 (Normal) [facility] Comment on above: Result Comment: NOTE Test Performed by: [facility] [address] [place] [address] Vocational Placement Specialist: Iftikhar Murphy M.D. Ph.D.; CLIA# [id number] Performed By: #### C LIZBET, 3040-3, 38431-0, 97701-9, CBCA #### [facility] ([id number]) [address] [place] [address] FECAL LACTOFERRINon 09-11-19 24 Lactoferrin Ql (Stl) Negative Normal NEG [facility] Comment on above: Performed By: #### C LIZBET, 3040-3, 25757-6, 65322-2, CBCA #### [facility] ([id number]) [address] [place] [address] GI PANELon 09-11-2023 Gastrointestinal pathogens DNA and RNA panel DAVIS+non-probe (Stl) SPECIMEN SOURCE STOOL CAMPYLOBACTER Not detected (qualifier value) PLESIOMONAS Not detected (qualifier value) SALMONELLA Not detected (qualifier value) VIBRIO Not detected (qualifier value) VIBRIO CHOLERAE Not detected (qualifier value) Y. ENTEROCOLITICA Not detected (qualifier value) AGGREGATIVE E COLI Not detected (qualifier value) PATHOGENIC E COLI Not detected (qualifier value) TOXIGENIC E COLI Not detected (qualifier value) SHIGA TOXIN E COLI Not detected (qualifier value) SHIGELLA-E COLI Not detected (qualifier value) CRYPTOSPORIDIUM Not detected (qualifier value) CYCLOSPORA Not detected (qualifier value) E HISTOLYTICA Not detected (qualifier value) GIARDIA LAMBLIA Not detected (qualifier value) ADENOVIRUS Not detected (qualifier value) ASTROVIRUS Not detected (qualifier value) NOROVIRUS Not detected (qualifier value) ROTAVIRUS A Not detected (qualifier value) SAPOVIRUS Not detected (qualifier value) Normal NDET [facility] Comment on above: Performed By: #### Bob SOMERS, 3040-3, 20962-1, 07417-1, CBCElsa #### [facility] ([id number]) [address] [place] [address] H. pylori Ag IA Ql (Stl)on 0 09-11-2023 H. PYLORI ANTG STOOL See Below Normal [facility] Comment on above: Result Comment: NOTE TEST RESULT FLAG UNIT REF.RANGE ------- EIA Test See Below Negative for H. Pylori antigen by EIA H.PYLORI EIA RESULT Negative for Helicobacter pylori antigen by EIA SOURCE: STOOL Test Performed By: [facility] [address] [place] [address] Neuroscientist: Rody Ames III #[id number] Performed By: #### Bob SOMERS, 3040-3, 48243-2, 04478-5, CBCElsa #### [facility] ([id number]) [address] [place] [address] Reference Lab Test IDon 04-[address] See Below Normal [facility] Comment on above: Result Comment: NOTE TEST RESULT FLAG UNIT REF.RANGE ------- Elastase-1 Concentration <1 L ug/g >=200 Interpretation: <100 ug/g: Severe Exocrine Pancreatic Insufficiency 100-199 ug/g: Mild to Moderate Exocrine Pancreatic Insufficiency >=200 ug/g: Normal Elastase Interpretation See below A Normal Severe Exocrine Pancreatic Insufficiency Test Performed By: [facility] [address] [address] Neuroscientist: Arvin Thomas III, M.D. CLIA #[id number] Performed By: #### C LIZBET, 3040-3, 08942-2, 07527-5, CBCA #### [facility] ([id number]) [address] [place] [address], [place] [address] COMPREHENSIVE METABOLIC PANE Wilver 09-10-2023 Albumin [Mass/Vol] 3.9 g/dL Normal 3.2-5.3 [facility] Comment on above: Performed By: #### Bob SOMERS, 23195-4 #### [facility] ([id number]) [address], [address] [place] [address] ALP [Catalytic activity/Vol] 68 U/L Normal 39-130 [facility] Comment on above: Performed By: #### Bob SOMERS, 31217-8 #### [facility] ([id number]) [address] [facility] [place] [address] ALT [Catalytic activity/Vol] 17 U/L Normal 0-31 [facility] Comment on above: Performed By: #### Bob SOMERS, 46462-4 #### [facility] ([id number]) [address], [address] [place] [address] Anion gap [Moles/Vol] 9 mmol/L Normal 5-15 [facility] Comment on above: Performed By: #### Bob SOMERS, 76919-3 #### [facility] ([id number]) [address] [place] [address] AST [Catalytic activity/Vol] 19 U/L Normal 0-41 [facility] Comment on above: Performed By: #### Bob SOMERS, 42219-1 #### [facility] ([id number]) [address] [place] [address] Bilirubin [Mass/Vol] 0.2 mg/dL Low 0.3-1.[address] [facility] Comment on above: Performed By: #### Bob SOMERS 33451-9 #### [facility] ([id number]) [address] [place] [address] Calcium [Mass/Vol] 8.6 mg/dL Normal 8.5-10.5 [facility] Comment on above: Performed By: #### Bob SOMERS 92162-6 #### [facility] ([id number]) [address] [place] [address] Chloride [Moles/Vol] 107 mmol/L Normal 98-[address] [facility] Comment on above: Performed By: #### Bob SOMERS, 06243-9 #### [facility] ([id number]) [address] [place] [address] CO2 [Moles/Vol] 22 mmol/L Normal 22-32 [facility] Comment on above: Performed By: #### Bob SOMERS 71161-6 #### [facility] ([id number]) [address] [place] [address] Creatinine [Mass/Vol] 2.32 mg/dL High 0.40-1.00 [facility] Comment on above: Result Comment: METH OD TRACEABLE TO IDMS STANDARD Performed By: #### Bob SOMERS 28372-3 #### [facility] ([id number]) [address] [place] [address] GFR/1.73 sq M.predicted among non-blacks MDRD (S/P/Bld) [Vol rate/Area] 27 mL/min/{1.73_m2} Low >59 [facility] Comment on above: Result Comment: Reported eGFR is based on the CKD-EPI 2020 equation that does not use a race coefficient. Performed By: #### Bob SOMERS, 80848-8 #### [facility] ([id number]) [address] [address] [place] [address] Glucose [Mass/Vol] 273 mg/dL High 65-99 [facility] Comment on above: Performed By: #### Bob SOMERS, 80410-9 #### [facility] ([id number]) [address] [address] Potassium [Moles/Vol] 4.3 mmol/L Normal 3.5-5.0 [facility] Comment on above: Performed By: #### Bob SOMERS, 93904-4 #### [facility] ([id number]) [address] [address] [place] [address] Protein [Mass/Vol] 6.5 g/dL Normal 6.0-8.0 [facility] Comment on above: Performed By: #### Bob SOMERS, 54878-6 #### [facility] ([id number]) [address] [address] [place] [address] Sodium [Moles/Vol] 138 mmol/L Normal 134-146 [facility] Comment on above: Performed By: #### Bob SOMERS, 47452-4 #### [facility] ([id number]) [address] [place] [address] Urea nitrogen [Mass/Vol] 26 mg/dL High 5-23 [facility] Comment on above: Performed By: #### Bob SOMERS, 55203-4 #### [facility] ([id number]) [address] [address] [place] [address] Lipid 1996 panelon 4 Cholesterol [Mass/Vol] 147 mg/dL Low 150-[address] [facility] Comment on above: Performed By: #### Bob SOMERS, 72698-9 #### [facility] ([id number]) [address] [place] [address] Cholesterol in HDL [Mass/Vol] 37 mg/dL Low >39 [facility] Comment on above: Result Comment: HDL <40 mg/dL - High Risk HDL > or = 40mg/dL- Desirable HDL >60 mg/dL - Negative Risk Performed By: ###[place], [address]-0 #### [facility] ([id number]) [address] [place] [address] Cholesterol in LDL [Mass/Vol] 80 mg/dL Normal <130 [facility] Comment on above: Result Comment: LDL <100 mg/dL - Desirable LDL >160 mg/dL - High Risk Performed By: #### Bob SOMERS, 59338-1 #### [facility] ([id number]) [address] [place] [address] Cholesterol in VLDL [Mass/Vol] 30 mg/dL Normal 0-30 [facility] Comment on above: Performed By: ###[place], [address]-4 #### [facility] ([id number]) [address] [place] [address] CHOLESTEROL:HDL 4.0 Normal 1.0-5.0 [facility] Comment on above: Performed By: #### Bob SOMERS, 98592-6 #### [facility] ([id number]) [address] [place] [address] Triglyceride [Mass/Vol] 152 mg/dL High 27-150 [facility] Comment on above: Performed By: #### C , 92133-5 #### [facility] ([id number]) [address] [place] [address] MICROALBUMIN - ALBUMIN:CREAT ININE URINE RATIOon 09-10-2023 ALB/CREAT RATIO 27.5 mg/g creat Normal 0.0-30.[address] [facility] Comment on above: Performed By: #### M ALBU #### [facility] ([id number]) [address] [place] [address] Albumin DL <= 20 mg/L (U) [Mass/Vol] 2.4 mg/dL High 0.0-1.9 [facility] Comment on above: Performed By: #### M ALBU #### [facility] ([id number]) [address] [place] [address] URINE CREAT 87.26 mg/dL Normal [facility] Comment on above: Performed By: #### M ALBU #### [facility] ([id number]) [address] [place] [address] BMPon 09-06-2023 Anion gap [Moles/Vol] 11 mmol/L 9 - 17 mmol/L [facility] [employer] Calcium [Mass/Vol] 8.8 mg/dL 8.6 - 10. 4 mg/dL [facility] [employer] Chloride [Moles/Vol] 107 mmol/L 98 - 10 7 mmol/L [facility] [employer] CO2 [Moles/Vol] 20 mmol/L 20 - 31 mmol/L [facility] Creatinine [Mass/Vol] 1.7 mg/dL High 0.5 - 0.9 mg/dL [facility] GFR/1.73 sq M.predicted MDRD (S/P/Bld) [Vol rate/Area] 39 mL/min/{1.73_m2} [place] - PINF [facility] Comment on above: These results are not intended for use in patients <18 years of age. eGFR results are calculated without a race factor using the 2020 CKD-EPI equation. Careful clinical correlation is recommended, particularly when comparing to results calculated using previous equations. The CKD-EPI equation is less accurate in patients with extremes of muscle mass, extra-renal metabolism of creatine, excessive creatine ingestion, or following therapy that affects renal tubular secretion. Glucose [Mass/Vol] 126 mg/dL High 70 - 99 mg/dL [facility] Potassium [Moles/Vol] 4.2 mmol/L 3.7 - 5.3 mmol/L [facility] Sodium [Moles/Vol] 138 mmol/L 135 - 144 mmol/L [facility] Urea nitrogen [Mass/Vol] 20 mg/dL 6 - 20 mg/dL [facility] Urea nitrogen/Creatinine [Mass ratio] 12 mg/mg 9 - 20 [facility] Basic Metabolic Profon 09-05 Anion gap [Moles/Vol] 11 mmol/L Normal 9-17 [facility] Comment on above: Performed By: #### U [facility] #### [facility] [address] [place] [address] [place] [address] Vocational Placement Specialist: Patti Swanson MD BUN/CRE Ratio 12 Normal 9-20 [facility] Comment on above: Performed By: #### Mati [facility] #### [facility] [address] [place] [address] [place] [address] Vocational Placement Specialist: Patti Swanson MD Calcium [Mass/Vol] 8.8 mg/dL Normal 8.6-10.4 [facility] Comment on above: Performed By: #### U [facility] #### [facility] [address] [place] [address] [place] [address] Vocational Placement Specialist: Patti Swanson MD Chloride [Moles/Vol] 107 mmol/L Normal 98-107 [facility] Comment on above: Performed By: #### U [facility] #### [facility] [address] [place] [address] Vocational Placement Specialist: Patti Swanson MD CO2 [Moles/Vol] 20 mmol/L Normal 20-31 [facility] Comment on above: Performed By: #### U [facility] #### [facility] [address] [place] [address] Vocational Placement Specialist: Patti Swanson MD Creatinine [Mass/Vol] 1.7 mg/dL High 0.5-0.9 [facility] Comment on above: Performed By: #### [facility] #### [facility] [address] [place] [address] Vocational Placement Specialist: Patti Swanson MD GFR/1.73 sq M.predicted among non-blacks MDRD (S/P/Bld) [Vol rate/Area] 39 mL/min/{1.73_m2} Low >60 [facility] Comment on above: Result Comment: These results are not intended for use in patients <18 years of age. eGFR results are calculated without a race factor using the 2020 CKD-EPI equation. Careful clinical correlation is recommended, particularly when comparing to results calculated using previous equations. The CKD-EPI equation is less accurate in patients with extremes of muscle mass, extra-renal metabolism of creatine, excessive creatine ingestion, or following therapy that affects renal tubular secretion. Performed By: #### U [facility] #### [facility] [address] [place] [address] Vocational Placement Specialist: Patti Swanson MD Glucose [Mass/Vol] 126 mg/dL High 70-99 [facility] Comment on above: Performed By: #### U [facility], [facility] #### [facility] [address] [place], [place] [address] Vocational Placement Specialist: Patti Swanson MD Potassium [Moles/Vol] 4.2 mmol/L Normal 3.7-5.3 [facility] Comment on above: Performed By: #### U AMIC CG #### [facility] [address] [place] [address] Vocational Placement Specialist: Patti Swanson MD Sodium [Moles/Vol] 138 mmol/L Normal 135-144 [facility] Comment on above: Performed By: #### U [facility] #### [facility] [address] [place] [address] Vocational Placement Specialist: Patti Swanson MD Urea nitrogen [Mass/Vol] 20 mg/dL Normal 6-20 [facility] Comment on above: Performed By: #### U [facility] #### [facility] [address] [place] [address] Vocational Placement Specialist: Patti Swanson MD CBC with Auto Differentialon 09-06-2023 Basophils (Bld) [#/Vol] 0.05 10*3/uL [facility] Basophils/100 WBC (Bld) 1 % 0 - 2 % [facility] Eosinophils (Bld) [#/Vol] [facility] Eosinophils/100 WBC (Bld) 0 % Low 1 - 4 % [facility] Erythrocyte distribution width (RBC) [Ratio] 14.2 % 11.8 - 14.4 % [facility] Hematocrit (Bld) [Volume fraction] 35.8 % Low 36.3 - 47.1 % [facility] Hemoglobin (Bld) [Mass/Vol] 11.6 g/dL Low 11.9 - 15.1 g/dL [facility] Immature granulocytes (Bld) [#/Vol] 0.03 10*3/uL [facility] Immature granulocytes/100 WBC (Bld) 0 % 0 [facility] Interpretation and review of laboratory results Abnormal [facility] Lymphocytes/100 WBC (Bld) 29 % 24 - 43 % [facility] Lymphocytes/100 WBC (Bld) 2.43 % [facility] MCH (RBC) [Entitic mass] 31.4 pg 25.2 - 33.5 pg [facility] MCHC (RBC) [Mass/Vol] 32.4 g/dL 28.4 - 34.8 g/dL [facility] MCV (RBC) [Entitic vol] 96.8 fL 82.6 - 102.9 fL [facility] Monocytes/100 WBC (Bld) 7 % 3 - 12 % [facility] Monocytes/100 WBC (Bld) 0.57 % [facility] Neutrophils/100 WBC (Bld) 63 % 36 - 65 % [facility] Nucleated RBC/100 WBC (Bld) [Ratio] 0.0 % 0.0 per 100 WBC [facility] Platelet mean volume (Bld) [Entitic vol] 10.8 fL 8.1 - 13.5 fL [facility] Platelets (Bld) [#/Vol] 256 10*3/uL [facility] RBC (Bld) [#/Vol] 3.70 10*6/uL Low 3.95 - 5.11 m/uL [facility] Segmented neutrophils/100 WBC (Bld) 5.32 % [facility] WBC other (Bld) [#/Vol] 8.4 [facility] CBC with Diffon 09-06-2023 Abs. Basophil 0.05 k/uL Normal 0.00-0.20 [facility] Comment on above: Performed By: #### U [facility] #### [facility] [address] [place] [address] Vocational Placement Specialist: Patti Swanson MD Abs. Eosinophil <0.03 Normal 0.00-0.44 [facility] Comment on above: Performed By: #### U [facility] #### [facility] [address] [place] [address] Vocational Placement Specialist: Patti Swanson MD Abs.Imm.Granulocyte 0.03 k/uL Normal 0.00-0.30 [facility] Comment on above: Performed By: #### U AMIC, UHCG #### [facility] [address] [place] [address] [place], [place] [id number] Vocational Placement Specialist: Patti Swanson MD Abs.Neutrophil (Seg) 5.32 k/uL Normal 1.50-8.10 [facility] Comment on above: Performed By: #### U AMIC, UHCG #### [address] [place], [facility] Vocational Placement Specialist: Patti Swanson MD Basophils/100 WBC (Bld) 1 % Normal 0-2 [facility] Comment on above: Performed By: #### U AMIC, CG #### [address] [place], [place] [address] Vocational Placement Specialist: Patti Swanson MD Eosinophils/100 WBC (Bld) 0 % Low 1-4 [facility] Comment on above: Performed By: #### U AMIC, CG #### [address] [place], [facility] Vocational Placement Specialist: Patti Swanson MD Erythrocyte distribution width (RBC) [Ratio] 14.2 % Normal 11.8-14.4 [facility] Comment on above: Performed By: #### U AMIC CG #### [address] [place], [facility] Vocational Placement Specialist: Patti Swanson MD Hematocrit (Bld) [Volume fraction] 35.8 % Low 36.3-47.1 [facility] Comment on above: Performed By: #### U AMIC, CG #### [address] [place] [address] Vocational Placement Specialist: Patti Swanson MD Hemoglobin (Bld) [Mass/Vol] 11.6 g/dL Low 11.9-15.1 [facility] Comment on above: Performed By: #### U AMIC, UHCG #### [facility] [address] [place], [place] [id number] Vocational Placement Specialist: Patti Swanson MD Immature granulocytes/100 WBC (Bld) 0 % Normal 0 [facility] Comment on above: Performed By: #### U AMIC, CG #### [facility] [address] [place], [facility] Vocational Placement Specialist: Patti Swanson MD Lymphocytes (Bld) [#/Vol] 2.43 10*3/uL Normal 1.10-3.70 [facility] Comment on above: Performed By: #### U AMIC [facility] #### [facility] [address] [place], [facility] Vocational Placement Specialist: Patti Swanson MD Lymphocytes/100 WBC (Bld) 29 % Normal 24-43 [facility] Comment on above: Performed By: #### U AMIC, CG #### [address] [place], [facility] Vocational Placement Specialist: Patti Swanson MD MCH (RBC) [Entitic mass] 31.4 pg Normal 25.2-33.5 [facility] Comment on above: Performed By: #### U AMIC, CG #### [address] [place], [facility] Vocational Placement Specialist: Patti Swanosn MD MCHC (RBC) [Mass/Vol] 32.4 g/dL Normal 28.4-34.8 [facility] Comment on above: Performed By: #### U AMIC, CG #### [address] [place], [facility] Vocational Placement Specialist: Patti Swanson MD MCV (RBC) [Entitic vol] 96.8 fL Normal 82.6-102.9 [facility] Comment on above: Performed By: #### U AMIC, CG #### [address] [place], [place] [id number] Vocational Placement Specialist: Patti Swanson MD Monocytes (Bld) [#/Vol] 0.57 10*3/uL Normal 0.10-1.20 [facility] Comment on above: Performed By: #### U AMIC, UHCG #### [facility] [address] [place], [place] [id number] Vocational Placement Specialist: Patti Swanson MD Monocytes/100 WBC (Bld) 7 % Normal 3-12 [facility] Comment on above: Performed By: #### U AMIC, CG #### [facility] [address] [address] [place], [place] [id number] Vocational Placement Specialist: Patti Swanson MD Neutrophil (Seg) 63 % Normal 36-65 [facility] Comment on above: Performed By: #### U AMIC, CG #### [facility] [address] [place], [facility]83 Vocational Placement Specialist: Patti Swanson MD NRBC Automated 0.0 per 100 WBC Normal 0.0 [facility] Comment on above: Performed By: #### U AMIC, CG #### [address] [place], [place] [address]83 Vocational Placement Specialist: Patti Swanson MD Platelet mean volume (Bld) [Entitic vol] 10.8 fL Normal 8.1-13.5 [facility] Comment on above: Performed By: #### U AMIC, UHCG #### [facility] [address] [place], [place] [id number] Vocational Placement Specialist: Patti Swanson MD Platelets (Bld) [#/Vol] 256 10*3/uL Normal 138-453 [facility] Comment on above: Performed By: #### U AMIC, UHCG #### [facility] [address] [place], [place] [id number] Vocational Placement Specialist: Patti Swanson MD RBC (Bld) [#/Vol] 3.70 10*6/uL [place] 3.95-5.11 [facility] Comment on above: Performed By: #### U [facility] #### [facility] [address] [place] [address] Vocational Placement Specialist: Patti Swanson MD WBC (Bld) [#/Vol] 8.4 10*3/uL Normal 3.5-11.3 [facility] Comment on above: Performed By: #### U [facility] #### [facility] [address] [place] [address] Vocational Placement Specialist: Patti Swanson MD Hepatic Function Panelon Albumin [Mass/Vol] 4.0 g/dL 3.5 - 5.2 g/dL [facility] Albumin/Globulin [Mass ratio] 1.3 {ratio} 1.0 - 2.5 [facility] ALP [Catalytic activity/Vol] 93 U/L 35 - 104 U/L [facility] ALT [Catalytic activity/Vol] 29 U/L 5 - 33 U/L [facility] AST [Catalytic activity/Vol] 28 U/L NINF - 32 U/L [facility] Bilirubin [Mass/Vol] 0.2 mg/dL [place] 0.3 - 1 .2 mg/dL [facility] Bilirubin.direct [Mass/Vol] mg/dL NINF - 0.3 mg/dL [facility] Bilirubin.indirect [Mass/Vol] Can not be calculated 0.0 - 1.0 mg/dL [facility] Protein [Mass/Vol] 7.2 g/dL 6.4 - 8.3 g/dL [facility] Lactic Acidon 09-06-2023 Lactate (BldV) [Moles/Vol] 0.6 mmol/L 0.5 - 2.2 mmol/L [facility] Lactate [Moles/Vol] 0.6 mmol/L Normal 0.5-2.2 [facility] Comment on above: Performed By: #### L ACTIC #### [facility] [address] [place], [place] [id number] Vocational Placement Specialist: Patti Swanson MD Lipaseon 09-06-2023 Lipase [Catalytic activity/Vol] 5 U/L [place] 13 - 60 U/L [facility] Lipase [Catalytic activity/Vol] 5 U/L [place] 13-60 [facility] Comment on above: Performed By: #### U AMIC, CG #### [facility] [address] [place], [place] [id number] Vocational Placement Specialist: Patti Swanson MD Liver Profileon 09-06-2023 Albumin [Mass/Vol] 4.0 g/dL Normal 3.5-5.2 [facility] Comment on above: Performed By: #### U AMIBob [facility] #### [facility] [address] [place], [place] [id number] Vocational Placement Specialist: Patti Swanson MD Albumin/Glob Ratio 1.3 Normal 1.0-2.5 [facility] Comment on above: Performed By: #### U AMIC [facility] #### [facility] [address] [place], [place] [phone] Vocational Placement Specialist: Patti Swanson MD Alkaline Phos 93 U/L Normal 35-104 [facility] Comment on above: Performed By: #### U AMIC CG #### [facility] [address] [place], [place] 3326983 Vocational Placement Specialist: Patti Swanson MD ALT [Catalytic activity/Vol] 29 U/L Normal 5-33 [facility] Comment on above: Performed By: #### U AMIC, CG #### [facility] [address] [place], [place] 3320183 Vocational Placement Specialist: Patti Swanson MD AST [Catalytic activity/Vol] 28 U/L Normal <32 [facility] Comment on above: Performed By: #### U AMIC, UHCG #### [facility] [address] [place], [place] 3358883 Vocational Placement Specialist: Patti Swanson MD Bilirubin [Mass/Vol] 0.2 mg/dL [place] 0.3-1.2 [facility] Comment on above: Performed By: #### U AMIC, UHCG #### [facility] [address] [place], [place] [id number] Vocational Placement Specialist: Patti Swanson MD Bilirubin, Indirect Can not be calculated Normal 0.0-1 .0 [facility] Comment on above: Performed By: #### U AMIC, UHCG #### [address] [place], [place] [id number] Vocational Placement Specialist: Patti Swanson MD Bilirubin.indirect [Mass/Vol] mg/dL Normal <0.3 [facility] Comment on above: Performed By: #### U AMIC, UHCG #### [address] [place], [place] 1970783 Vocational Placement Specialist: Patti Swanson MD Protein [Mass/Vol] 7.2 g/dL Normal 6.4-8.3 [facility] Comment on above: Performed By: #### U AMIC, UHCG #### [facility] [address] [place] [address] Dr[place], [facility]83 Vocational Placement Specialist: Patti Swanson MD No Panel Informationon 09-05 Interpretation and review of laboratory results Abnormal [facility] PTon 09-06-2023 INR Coag (PPP) [Relative time] 1.1 {INR} Normal [facility] Comment on above: Result Comment: Therapeutic Range: Moderate Anticoagulant Intensity: INR = 2.0-3.0 High Anticoagulant Intensity: INR = 2.5-3.5 Performed By: #### U AMIC, UHCG #### [facility] [address] [place] [address] [place], [place] [phone] Vocational Placement Specialist: Patti Swanson MD PT Coag (PPP) [Time] 14.1 s Normal 11.7-14.1 [facility] Comment on above: Performed By: #### U [facility] #### [facility] [address] [place] [address] Vocational Placement Specialist: Patti Swanson MD Protime-INRon 09-06-2023 INR Coag (PPP) [Relative time] 1.1 {INR} [facility] Comment on above: Therapeutic Range: Moderate Anticoagulant Intensity: INR = 2.0-3.0 High Anticoagulant Intensity: INR = 2.5-3.5 PT Coag (PPP) [Time] 14.1 s [facility] TYPE AND SCREENon 09-06-2023 ABO and Rh group Nom (Bld) Blood group A Rh(D) positive [facility] Arm Band Number [id number] [facility] Blood Bank Sample Expiration 09/09/2023,2359 [facility] Blood group antibodies identified Nom Negative [facility] Type + Screenon 09-06-2023 Type + Screen Sample Expiration 09/09/2023,2359 Arm Band Number [id number] ABO/Rh(D) A POSITIVE Antibody Screen NEGATIVE [facility] Comment on above: Performed By: #### U [facility] #### [facility] [address] [place] [address] Vocational Placement Specialist: Patti Swanson MD Basic Metab w/rfx MGon 08-24 Anion gap [Moles/Vol] 12 mmol/L Normal - [facility] Comment on above: Performed By: #### L ACTIC #### [facility] [address] [place] [address] Vocational Placement Specialist: Patti Swanson MD BUN/CRE Ratio 13 Normal - [facility] Comment on above: Performed By: #### L ACTIC #### [facility] [address] [place], [place] 9258483 Vocational Placement Specialist: Patti Swanson MD Calcium [Mass/Vol] 8.4 mg/dL [place] 8.6-10.4 [facility] Comment on above: Performed By: #### L ACTIC #### [facility] [address] [place], [place] 506[address]83 Vocational Placement Specialist: Patti Swanson MD Chloride [Moles/Vol] 103 mmol/L Normal 98-107 [facility] Comment on above: Performed By: #### L ACTIC #### [facility] [address] [place], [place] 076[address]83 Vocational Placement Specialist: Patti Swanson MD CO2 [Moles/Vol] 21 mmol/L Normal 20-31 [facility] Comment on above: Performed By: #### L ACTIC #### [facility] [address] [place], [place] 3139283 Vocational Placement Specialist: Patti Swanson MD Creatinine [Mass/Vol] 2.4 mg/dL High 0.5-0.9 [facility] Comment on above: Performed By: #### L ACTIC #### [facility] [address] [place], [place] [address] Vocational Placement Specialist: Patti Swanson MD GFR/1.73 sq M.predicted among non-blacks MDRD (S/P/Bld) [Vol rate/Area] 26 mL/min/{1.73_m2} [place] >60 [facility] Comment on above: Result Comment: These results are not intended for use in patients <18 years of age. eGFR results are calculated without a race factor using the 2020 CKD-EPI equation. Careful clinical correlation is recommended, particularly when comparing to results calculated using previous equations. The CKD-EPI equation is less accurate in patients with extremes of muscle mass, extra-renal metabolism of creatine, excessive creatine ingestion, or following therapy that affects renal tubular secretion. Performed By: #### L ACTIC #### [facility] [address] [place], [place] 4389683 Vocational Placement Specialist: Patti Swanson MD Glucose [Mass/Vol] 136 mg/dL High 70-99 [facility] Comment on above: Performed By: #### L ACTIC #### [facility] [address] [place], [place] [address]1983 Vocational Placement Specialist: Patti Swanson MD Potassium [Moles/Vol] 4.8 mmol/L Normal 3.7-5.3 [facility] Comment on above: Performed By: #### L ACTIC #### [facility] [address] [place], [place] 8438783 Vocational Placement Specialist: Patti Swanson MD Sodium [Moles/Vol] 136 mmol/L Normal 135-144 [facility] Comment on above: Performed By: #### L ACTIC #### [facility] [address] [place], [place] 0359383 Vocational Placement Specialist: Patti Swanson MD Urea nitrogen [Mass/Vol] 30 mg/dL High 6-20 [facility] Comment on above: Performed By: #### L ACTIC #### [facility] [address] [place] [address] [place], [place] [phone] Vocational Placement Specialist: Patti Swanson MD CBC with Diffon 08-25-2023 Abs. Basophil 0.06 k/uL Normal 0.00-0.20 [facility] Comment on above: Performed By: #### L ACTIC #### [facility] [address] [place], [place] 0906883 Vocational Placement Specialist: Patti Swanson MD Abs. Eosinophil <0.03 Normal 0.00-0.44 [facility] Comment on above: Performed By: #### L ACTIC #### [facility] [address] [place], [place] 7291483 Vocational Placement Specialist: Patti Swanson MD Abs.Imm.Granulocyte 0.05 k/uL Normal 0.00-0.30 [facility] Comment on above: Performed By: #### L ACTIC #### [facility] [address] [place], [place] 5337483 Vocational Placement Specialist: Patti Swanson MD Abs.Neutrophil (Seg) 7.54 k/uL Normal 1.50-8.10 [facility] Comment on above: Performed By: #### L ACTIC #### [address] [place], [facility]83 Vocational Placement Specialist: Patti wSanson MD Basophils/100 WBC (Bld) 1 % Normal 0-2 [facility] Comment on above: Performed By: #### L ACTIC #### [address] [place], [facility]83 Vocational Placement Specialist: Patti Swanson MD Eosinophils/100 WBC (Bld) 0 % Low 1-4 [facility] Comment on above: Performed By: #### L ACTIC #### [address] [place], [facility]83 Vocational Placement Specialist: Patti Swanson MD Erythrocyte distribution width (RBC) [Ratio] 15.1 % High 11.8-14.4 [facility] Comment on above: Performed By: #### L ACTIC #### [address] [place], [facility]83 Vocational Placement Specialist: Patti Swanson MD Hematocrit (Bld) [Volume fraction] 34.2 % Low 36.3-47.1 [facility] Comment on above: Performed By: #### L ACTIC #### [address] [place] [address] Vocational Placement Specialist: Patti Swanson MD Hemoglobin (Bld) [Mass/Vol] 10.6 g/dL [place] 11.9-15.1 [facility] Comment on above: Performed By: #### L ACTIC #### [facility] [address] [place], [place] 8317083 Vocational Placement Specialist: Patti Swanson MD Immature granulocytes/100 WBC (Bld) 0 % Normal 0 [facility] Comment on above: Performed By: #### L ACTIC #### [facility] [address] [place], [place] 83[address]383 Vocational Placement Specialist: Patti Swanson MD Lymphocytes (Bld) [#/Vol] 2.67 10*3/uL Normal 1.10-3.70 [facility] Comment on above: Performed By: #### L ACTIC #### [facility] [address] [place], [facility]83 Vocational Placement Specialist: Patti Swanson MD Lymphocytes/100 WBC (Bld) 24 % Normal 24-43 [facility] Comment on above: Performed By: #### L ACTIC #### [facility] [address] [place] [address] Dr[address] [place], [facility]83 Vocational Placement Specialist: Patti Swanson MD MCH (RBC) [Entitic mass] 31.0 pg Normal 25.2-33.5 [facility] Comment on above: Performed By: #### L ACTIC #### [address] [place], [place] 2581783 Vocational Placement Specialist: Patti Swanson MD MCHC (RBC) [Mass/Vol] 31.0 g/dL Normal 28.4-34.8 [facility] Comment on above: Performed By: #### L ACTIC #### [facility] [address] [place] [address] [place], [place] [phone] Vocational Placement Specialist: Patti Swanson MD MCV (RBC) [Entitic vol] 100.0 fL Normal 82.6-102.9 [facility] Comment on above: Performed By: #### L ACTIC #### [facility] [address] [place], [place] 4523483 Vocational Placement Specialist: Patti Swanson MD Monocytes (Bld) [#/Vol] 0.86 10*3/uL Normal 0.10-1.20 [facility] Comment on above: Performed By: #### L ACTIC #### [facility] [address] [place], [place] 4885483 Vocational Placement Specialist: Patti Swanson MD Monocytes/100 WBC (Bld) 8 % Normal 3-12 [facility] Comment on above: Performed By: #### L ACTIC #### [facility] [address] [place], [place] 8298083 Vocational Placement Specialist: Patti Swanson MD Neutrophil (Seg) 67 % High 36-65 [facility] Comment on above: Performed By: #### L ACTIC #### [facility] [address] [place], [place] 2406583 Vocational Placement Specialist: Patti Swanson MD NRBC Automated 0.0 per 100 WBC Normal 0.0 [facility] Comment on above: Performed By: #### L ACTIC #### [facility] [address] [place], [place] 3448283 Vocational Placement Specialist: Patti Swanson MD Platelet mean volume (Bld) [Entitic vol] 10.6 fL Normal 8.1-13.5 [facility] Comment on above: Performed By: #### L ACTIC #### [facility] [address] [place] [address] Vocational Placement Specialist: Patti Swanson MD Platelets (Bld) [#/Vol] 293 10*3/uL Normal 138-453 [facility] Comment on above: Performed By: #### L ACTIC #### [facility] [address] [place], [place] [address]3 Vocational Placement Specialist: Patti Swanson MD RBC (Bld) [#/Vol] 3.42 10*6/uL [place] 3.95-5.11 [facility] Comment on above: Performed By: #### L ACTIC #### [facility] [address] [place], [place] 8989083 Vocational Placement Specialist: Patti Swanson MD WBC (Bld) [#/Vol] 11.2 10*3/uL Normal 3.5-11.3 [facility] Comment on above: Performed By: #### L ACTIC #### [facility] [address] [place], [place] [phone] Vocational Placement Specialist: Patti Swanson MD Glucose, Whole Bloodon 08-24 Glucose [Mass/Vol] 136 mg/dL High 74-100 [facility] Glucose [Mass/Vol] 97 mg/dL Normal 74-100 [facility] Liver Profileon 08-25-2023 Albumin [Mass/Vol] 3.8 g/dL Normal 3.5-5.2 [facility] Comment on above: Performed By: #### L ACTIC #### [facility] [address] [place], [place] 256[address]83 Vocational Placement Specialist: Patti Swanson MD Albumin/Glob Ratio 1.3 Normal 1.0-2.5 [facility] Comment on above: Performed By: #### L ACTIC #### [facility] [address] [place], [place] 507[address] Vocational Placement Specialist: Patti Swanson MD Alkaline Phos 111 U/L High 35-104 [facility] Comment on above: Performed By: #### L ACTIC #### [facility] [address] [place], [place] 1062783 Vocational Placement Specialist: Patti Swanson MD ALT [Catalytic activity/Vol] 33 U/L Normal 5-33 [facility] Comment on above: Performed By: #### L ACTIC #### [facility] [address] [place], [place] 7495283 Vocational Placement Specialist: Patti Swanson MD AST [Catalytic activity/Vol] 55 U/L High <32 [facility] Comment on above: Performed By: #### L ACTIC #### [facility] [address] [place], [place] 1343883 Vocational Placement Specialist: Patti Swanson MD Bilirubin [Mass/Vol] 0.2 mg/dL [place] 0.3-1.2 [facility] Comment on above: Performed By: #### L ACTIC #### [facility] [address] [place], [place] 6276983 Vocational Placement Specialist: Patti Swanson MD Bilirubin, Indirect Can not be calculated Normal 0.0-1 .0 [facility] Comment on above: Performed By: #### L ACTIC #### [facility] [address] [place] [address] [place] [place], [place] 2292983 Vocational Placement Specialist: Patti Swanson MD Bilirubin.indirect [Mass/Vol] mg/dL Normal <0.3 [facility] Comment on above: Performed By: #### L ACTIC #### [facility] [address] [place] [address] [place] [place], [place] 7751683 Vocational Placement Specialist: Patti Swanson MD Protein [Mass/Vol] 6.7 g/dL Normal 6.4-8.3 [facility] Comment on above: Performed By: #### L ACTIC #### [address] [place], [place] 4850283 Vocational Placement Specialist: Patti Swanson MD Basic Metabolic Profon 08-23 Anion gap [Moles/Vol] 14 mmol/L Normal - [facility] Comment on above: Performed By: #### B MP #### [facility] [address] [place], [place] 6778183 Vocational Placement Specialist: Patti Swanson MD BUN/CRE Ratio 12 Normal - [facility] Comment on above: Performed By: #### B MP #### [facility] [address] [place], [place] 3097183 Vocational Placement Specialist: Patti Swanson MD Calcium [Mass/Vol] 8.9 mg/dL Normal 8.6-10.4 [facility] Comment on above: Performed By: #### B MP #### [facility] [address] [place], [place] 7935783 Vocational Placement Specialist: Patti Swanson MD Chloride [Moles/Vol] 101 mmol/L Normal 98-107 [facility] Comment on above: Performed By: #### B MP #### [facility] [address] [place], [place] 8141783 Vocational Placement Specialist: Patti Swanson MD CO2 [Moles/Vol] 21 mmol/L Normal 20-31 [facility] Comment on above: Performed By: #### B MP #### [facility] [address] [place], [place] 7817883 Vocational Placement Specialist: Patti Swanson MD Creatinine [Mass/Vol] 2.4 mg/dL High 0.5-0.9 [facility] Comment on above: Performed By: #### B MP #### [facility] [address] [place] [address] Vocational Placement Specialist: Patti Swanson MD GFR/1.73 sq M.predicted among non-blacks MDRD (S/P/Bld) [Vol rate/Area] 26 mL/min/{1.73_m2} Low >60 [facility] Comment on above: Result Comment: These results are not intended for use in patients <18 years of age. eGFR results are calculated without a race factor using the 2020 CKD-EPI equation. Careful clinical correlation is recommended, particularly when comparing to results calculated using previous equations. The CKD-EPI equation is less accurate in patients with extremes of muscle mass, extra-renal metabolism of creatine, excessive creatine ingestion, or following therapy that affects renal tubular secretion. Performed By: #### B MP #### [facility] [address] [place] [address] Vocational Placement Specialist: Patti Swanson MD Glucose [Mass/Vol] 186 mg/dL High 70-99 [facility] Comment on above: Performed By: #### B MP #### [facility] [address] [place], [place] 1548783 Vocational Placement Specialist: Patti Swanson MD Potassium [Moles/Vol] 5.0 mmol/L Normal 3.7-5.3 [facility] Comment on above: Performed By: #### B MP #### [facility] [address] [place], [facility] Vocational Placement Specialist: Patti Swanson MD Sodium [Moles/Vol] 136 mmol/L Normal 135-144 [facility] Comment on above: Performed By: #### B MP #### [facility] [address] [place] [address] [place] [id number] ( Vocational Placement Specialist: Patti Swanson MD Urea nitrogen [Mass/Vol] 29 mg/dL High 6-20 [facility] Comment on above: Performed By: #### B MP #### [facility] [address] [place] [address] Dr. [place], [facility]83 Vocational Placement Specialist: Patti Swanson MD CBC with Diffon 08-24-2023 Abs. Basophil 0.07 k/uL Normal 0.00-0.20 [facility] Comment on above: Performed By: #### L ACTIC #### [address] [place] [address] Vocational Placement Specialist: Patti Swanson MD Abs. Eosinophil <0.03 Normal 0.00-0.44 [facility] Comment on above: Performed By: #### L ACTIC #### [facility] [address] [place] [address] Dr. [place], [facility]83 Vocational Placement Specialist: Patti Swanson MD Abs.Imm.Granulocyte 0.08 k/uL Normal 0.00-0.30 [facility] Comment on above: Performed By: #### L ACTIC #### [facility] [address] [place] [address] Dr. Low [facility]83 Vocational Placement Specialist: Patti Swanson MD Abs.Neutrophil (Seg) 11.39 k/uL High 1.50-8.10 [facility] Comment on above: Performed By: #### L ACTIC #### [facility] [address] [place] [address] [place] [address] Vocational Placement Specialist: Patti Swanson MD Basophils/100 WBC (Bld) 1 % Normal 0-2 [facility] Comment on above: Performed By: #### L ACTIC #### [facility] [address] [place] [address] Dr. [place], [place] [phone] Vocational Placement Specialist: Patti Swanson MD Eosinophils/100 WBC (Bld) 0 % Low 1-4 [facility] Comment on above: Performed By: #### L ACTIC #### [address] [place], [place] [id number] Vocational Placement Specialist: Patti Swanson MD Erythrocyte distribution width (RBC) [Ratio] 14.5 % High 11.8-14.4 [facility] Comment on above: Performed By: #### L ACTIC #### [address] [place] [address] Vocational Placement Specialist: Patti Swanson MD Hematocrit (Bld) [Volume fraction] 38.6 % Normal 36.3-47.1 [facility] Comment on above: Performed By: #### L ACTIC #### [facility] [address] [place] [address] Dr. [place], [place] [id number] Vocational Placement Specialist: Patti Swanson MD Hemoglobin (Bld) [Mass/Vol] 12.1 g/dL Normal 11.9-15.1 [facility] Comment on above: Performed By: #### L ACTIC #### [address] [place] [address] Vocational Placement Specialist: Patti Swanson MD Immature granulocytes/100 WBC (Bld) 1 % High 0 [facility] Comment on above: Performed By: #### L ACTIC #### [facility] [address] [place], [place] [phone] Vocational Placement Specialist: Patti Swanson MD Lymphocytes (Bld) [#/Vol] 2.22 10*3/uL Normal 1.10-3.70 [facility] Comment on above: Performed By: #### L ACTIC #### [facility] [address] [place], [place] [phone] Vocational Placement Specialist: Patti Swanson MD Lymphocytes/100 WBC (Bld) 15 % Low 24-43 [facility] Comment on above: Performed By: #### L ACTIC #### [address] [place], [place] 1108983 Vocational Placement Specialist: Patti Swanson MD MCH (RBC) [Entitic mass] 30.5 pg Normal 25.2-33.5 [facility] Comment on above: Performed By: #### L ACTIC #### [address] [place], [place] [id number] Vocational Placement Specialist: Patti Swanson MD MCHC (RBC) [Mass/Vol] 31.3 g/dL Normal 28.4-34.8 [facility] Comment on above: Performed By: #### L ACTIC #### [address] [place], [facility]83 Vocational Placement Specialist: Patti Swanson MD MCV (RBC) [Entitic vol] 97.2 fL Normal 82.6-102.9 [facility] Comment on above: Performed By: #### L ACTIC #### [facility] [address] [place] [address] [place] [address] Vocational Placement Specialist: Patti Swanson MD Monocytes (Bld) [#/Vol] 0.87 10*3/uL Normal 0.10-1.20 [facility] Comment on above: Performed By: #### L ACTIC #### [facility] [address] [place] [address] Dr. [place], [place] [id number] Vocational Placement Specialist: Patti Swanson MD Monocytes/100 WBC (Bld) 6 % Normal 3-12 [facility] Comment on above: Performed By: #### L ACTIC #### [facility] [address] [place], [place] [phone] Vocational Placement Specialist: Patti Swanson MD Neutrophil (Seg) 77 % High 36-65 [facility] Comment on above: Performed By: #### L ACTIC #### [facility] [address] [place], [place] 1978883 Vocational Placement Specialist: Patti Swanson MD NRBC Automated 0.0 per 100 WBC Normal 0.0 [facility] Comment on above: Performed By: #### L ACTIC #### [address] [place], [place] 8754483 Vocational Placement Specialist: Patti Swanson MD Platelet mean volume (Bld) [Entitic vol] 10.8 fL Normal 8.1-13.5 [facility] Comment on above: Performed By: #### L ACTIC #### [address] [place], [place] 0858383 Vocational Placement Specialist: Patti Swanson MD Platelets (Bld) [#/Vol] 352 10*3/uL Normal 138-453 [facility] Comment on above: Performed By: #### L ACTIC #### [facility] [address] [place] [address] Dr. [place], [place] 1482183 Vocational Placement Specialist: Patti Swanson MD RBC (Bld) [#/Vol] 3.97 10*6/uL Normal 3.95-5.11 [facility] Comment on above: Performed By: #### L ACTIC #### [facility] [address] [place] [address] Dr. [place], [place] [phone] Vocational Placement Specialist: Patti Swanson MD WBC (Bld) [#/Vol] 14.7 10*3/uL High 3.5-11.3 [facility] Comment on above: Performed By: #### L ACTIC #### [facility] [address] [place] [address] Vocational Placement Specialist: Patti Swanson MD CT ABDOMEN PELVIS WO CONTRAS Ton 08-24-2023 CT ABDOMEN PELVIS WO CONTRAST EXAMINATION: CT OF THE ABDOMEN AND PELVIS WITHOUT CONTRAST 08/24/2023 12:59 pm TECHNIQUE: CT of the abdomen and pelvis was performed without the administration of intravenous contrast. Multiplanar reformatted images are provided for review. Automated exposure control, iterative reconstruction, and/or weight based adjustment of the mA/kV was utilized to reduce the radiation dose to as low as reasonably achievable. COMPARISON: March 25, 2023 HISTORY: ORDERING SYSTEM PROVIDED HISTORY: hematemesis, epigastric pain, TECHNOLOGIST PROVIDED HISTORY: hematemesis, epigastric pain, Decision Support Exception - unselect if not a suspected or confirmed emergency medical condition->Emergency Medical Condition (MA) Is the patient ?->No FINDINGS: Lower Chest: Pleural thickening versus trace bilateral pleural effusions. Otherwise, no significant abnormality at the lung bases. Organs: Exam is limited by the absence of intravenous contrast. No urinary tract calculus. The kidneys are symmetric in size without collecting system dilatation. No suspicious renal probe low lesion. 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 Pneumobilia is redemonstrated. Otherwise, no significant biliary ductal dilatation. No suspicious or concerning liver lesion. The adrenal glands are unremarkable. GI/Bowel: Large stool burden is redemonstrated with the transverse colon measuring up to 7 cm in maximal dimension and fecalization of the distal ileum. There is no pneumatosis. No dilated small bowel. Pelvis: An IUD is in place. The urinary bladder is unremarkable. Peritoneum/Retroperitoneu m: No bulky lymphadenopathy. No ascites. Bones/Soft Tissues: No acute osseous abnormality. Retained subcutaneous wire in the left lower back/flank redemonstrated. IMPRESSION: Persistent large stool burden with fecalization of the distal ileum consistent with severe chronic constipation. Otherwise, no urinary tract calculus or acute process in the abdomen or pelvis. Interpreted by: Joby Mcdermott MD Signed by: Joby Mcdermott MD 08/24/23 Final result Normal [facility] Glucose, Whole Bloodon 08-23 Glucose [Mass/Vol] 139 mg/dL High 74-100 [facility] Glucose [Mass/Vol] 161 mg/dL High 74-100 [facility] Lactic Acidon 08-24-2023 Lactate [Moles/Vol] 1.8 mmol/L Normal 0.5-2.2 [facility] Comment on above: Performed By: #### L ACTIC #### [facility] [address] [place] [address] Vocational Placement Specialist: Patti Swanson MD Lipaseon 08-24-2023 Lipase [Catalytic activity/Vol] 6 U/L Low 13-60 [facility] Comment on above: Performed By: #### L ACTIC #### [facility] [address] [place] [address] Vocational Placement Specialist: Patti Swanson MD UA w/Reflex Cultureon 2023 Bilirubin, SemiQt,Ur Negative Normal NEG [facility] Comment on above: Performed By: #### U AMIC, UHCG #### [facility] [address] [place] [address] Vocational Placement Specialist: Patti Swanson MD Blood, Urine Negative Normal NEG [facility] Comment on above: Performed By: #### U AMIC, UHCG #### [facility] [address] [place] [address] Vocational Placement Specialist: Patti Swanson MD Clarity (U) Clear Normal CLEAR [facility] Comment on above: Performed By: #### U AMIC, UHCG #### [facility] [address] [place] [address] Vocational Placement Specialist: Patti Swanson MD Color (U) Yellow Normal YEL [facility] Comment on above: Performed By: #### U AMIC, UHCG #### [facility] [address] [place], [place] 1894283 Vocational Placement Specialist: Patti Swanson MD Glucose Ql (U) Negative Normal NEG [facility] Comment on above: Performed By: #### U AMIC, UHCG #### [facility] [address] [place] [address] Dr. [place], [place] [phone] Vocational Placement Specialist: Patti Swanson MD Ketones Ql (U) Negative Normal NEG [facility] Comment on above: Performed By: #### U AMIC, UHCG #### [facility] [address] [place] [address] Dr. [place], [place] [phone] Vocational Placement Specialist: Patti Swanson MD Leukocyte esterase Test strip Ql (U) Negative Normal NEG [facility] Comment on above: Performed By: #### U AMIC, UHCG #### [facility] [address] [place] [address] Dr. [place], [place] [phone] Vocational Placement Specialist: Patti Swanson MD Nitrite,Ur Negative Normal NEG [facility] Comment on above: Performed By: #### U AMIC, UHCG #### [facility] [address] [place] [address] Dr. [place], [place] 1982983 Vocational Placement Specialist: Patti Swanson MD PH,Ur 6.0 Normal 5.0-9.0 [facility] Comment on above: Performed By: #### U AMIC, UHCG #### [facility] [address] [place] [address] Dr. [place], [place] 1947883 Vocational Placement Specialist: Patti Swanson MD Protein Ql (U) Negative Normal NEG [facility] Comment on above: Performed By: #### U AMIC, UHCG #### [facility] [address] [place] [address] Dr. [place], [place] 0443283 Vocational Placement Specialist: Patti Swanson MD Spec. [place],Ur <1.005 Low 1.010-1.02 0 [facility] Comment on above: Performed By: #### U AMIC, UHCG #### [facility] [address] [place], [place] [phone] Vocational Placement Specialist: Patti Swanson MD Urobilinogen,Ur Normal Normal 0.0-1.0 [facility] Comment on above: Performed By: #### U AMIC, UHCG #### [facility] [address] [place], [place] 9584083 Vocational Placement Specialist: Patti Swanson MD Urinalysis,Microon 4 Other Observations MICROSCOPIC PERFORME D ON UNSPUN URINE Abnormal NREQ [facility] Comment on above: Performed By: #### U AMIC, UHCG #### [facility] [address] [place] [address] Dr. [place], [place] [phone] Vocational Placement Specialist: Patti Swanson MD Bacteria TRACE Abnormal NONE [facility] Comment on above: Performed By: #### U AMIC, UHCG #### [facility] [address] [place], [place] 0454083 Vocational Placement Specialist: Patti Swanson MD Epithelial cells LM Ql (Urine sed) 2 TO 5 Normal 0-25 [facility] Comment on above: Performed By: #### U AMIC, UHCG #### [facility] [address] [place] [address] Dr. [place], [place] 1579383 Vocational Placement Specialist: Patti Swanson MD Urine RBC's 0 TO 2 Normal 0-2 [facility] Comment on above: Performed By: #### U AMIC, UHCG #### [facility] [address] [place], [place] 5377183 Vocational Placement Specialist: Patti Swanson MD Urine WBC's 0 TO 2 Normal 0-5 [facility] Comment on above: Performed By: #### U AMIC, UHCG #### [facility] [address] [place], [place] [phone] Vocational Placement Specialist: Patti Swanson MD Glucose Glucometer (BldC) [M ass/Vol]Ordered By: Poly Morgan on 06-22-2023 Glucose [Mass/Vol] 166 mg/dL [facility] Comment on above: Random Glucose Refer ence Range is dependent on time and content of last meal. Glucose of more than 200 mg/dL in a nonstressed, ambulatory subject supports the diagnosis of Diabetes Mellitus. HCG ( test) IA.rapi d Ql (U)Ordered By: PATTI RODRIGUEZ on 06-22-2023 HCG ( test) Ql (U) Negative [facility] No Panel InformationOrdered By: Poly Morgan on 06-22-2023 Bedside Glucose Comment Glu2: cleaned meter [facility] Glucose Glucometer (BldC) [M ass/Vol]on 06-18-2023 Glucose [Mass/Vol] 116 mg/dL High 65-99 [facility] IR PICC LINE PICC RN WO 5+ W GUIDANCEon 06-18-2023 IR PICC LINE PICC RN WO 5+ W GUIDANCE IR PICC LINE PICC RN WO 5+ W GUIDANCE CLINICAL INDICATION: Difficult IV access. Need for central venous access for frequent IV medication COMPARISON: None TECHNIQUE: Procedure performed by Interventional Radiologist Tamy Santiago M.D. Fluoroscopic time: 0.5 minutes Reference Air Kerma: 3mGy Number of fluoroscopic images: 1 CONSENT: The reason for the procedure was discussed with the patient. The procedure, expectations, risks, benefits, options and alternatives were discussed. All of the patient?s questions were answered. The patient understands that the results cannot be guaranteed. The procedure is indicated and the risks are acceptable. Consent was obtained. SEDATION: Procedure performed under general anesthesia. See anesthesia records for additional details. PROCEDURE: 1. Ultrasound-guided right brachial vein access. Real-time ultrasound guidance was performed during micropuncture needle access into a patent and compressible right brachial vein. Permanent ultrasound images stored in PACS. 2. Fluoroscopic guided placement of a right brachial vein 38 cm 5 [place] single-lumen PICC line. Details of procedure: Maximum sterile barrier techniques utilized. Sterile barrier techniques included the use of a sterile cap, mask, sterile gown, sterile gloves, and sterile full body drapes. During ultrasound guidance, sterile gel and sterile probe cover used. Patient placed in the supine position on the procedural table with the right arm extended. The right arm was prepped and draped in usual sterile fashion. 1% lidocaine without epinephrine was used as a local anesthetic. At that time, under continuous real-time ultrasound guidance, a micropuncture needle was advanced into a patent and compressible right brachial vein. Permanent ultrasound images stored in PACS. A microwire was then advanced into the right brachial vein and under fluoroscopic guidance the microwire was advanced into the SVC. Measurements were made for PICC line placement. The needle was then removed and a peel-away sheath was placed. A 5 [place]ian single-lumen PICC line was cut to 38 cm and was advanced over the wire through the peel-away sheath into position. The sheath was peeled away and the wire was removed. Catheter functions appropriately. Catheter was secured to the skin and sterile dressing applied. Fluoroscopy confirmed satisfactory position of PICC line. The patient tolerated the procedure well and there were no immediate complications. FINDINGS: 1. Patent and compressible right brachial vein accessed under ultrasound guidance. Permanent ultrasound images stored in PACS. 2. Fluoroscopic guided placement of a right-sided 5 [place]ian single-lumen PICC line. The PICC line was cut to 38 cm. Fluoroscopy confirms PICC line tip at the superior atriocaval junction. PICC line functions appropriately and is ready for use. IMPRESSION: Successful ultrasound and fluoroscopic guided placement of a right arm 5 [place]ian single-lumen PICC line. The line is ready for regular use. Finalized by Tamy Santiago MD on 06/18/2023 2:17 PM [facility] IR REMOVE PORTon 06-18-2023 IR REMOVE PORT IR REMOVE PORT CLINICAL INDICATION: No further need for Port-A-Cath. Port discomfort. Patient requests port removal due to port hub and catheter discomfort. COMPARISON: Placement 04/28/2023 TECHNIQUE: Procedure performed by Interventional Radiologist Tamy Santiago M.D. CONSENT: The reason of the procedure was discussed with the patient. The procedure, expectations, risks, benefits, options and alternatives were discussed. All of the patient?s questions were answered. The patient understands that the results cannot be guaranteed. The procedure is indicated and the risks are acceptable. Consent was obtained. Procedure performed under general anesthesia. See anesthesia records for additional details. PROCEDURE: Removal of right IJ single lumen Port-A-Cath. Details of procedure: Patient placed in the supine position on the procedural table. The existing port site was prepped and draped in usual sterile fashion. 1% lidocaine was used as a local anesthetic at the skin and subcutaneous soft tissues surrounding the port. At that time, an approximately 2 cm transverse incision was made over the scar from port placement. Blunt dissection was performed to free the port. The port catheter was removed and manual pressure was held at the venotomy site. The port hub was then dissected free and removed. The pocket was irrigated. The small incision was then closed with 2-0 Vicryl interrupted deep sutures. The skin was closed with 4-0 Vicryl running subcuticular stitch. Dermabond and Steri-Strips were placed. A sterile dressing was applied. The patient tolerated the procedure well and there were no immediate complications. FINDINGS: Successful complete removal of right IJ single lumen Port-A-Cath. IMPRESSION: Successful removal of Port-A-Cath. Finalized by Tamy Santiago MD on 06/18/2023 12:33 PM Normal [facility] A1C HEMOGLOBINon 06-17-2023 HbA1c (Bld) [Mass fraction] 8.6 % [facility] [employer] Other Glucose - FINGER STICKon Glucose [Mass/Vol] 111 mg/dL [place] [employer] Other HbA1c (Bld) [Mass fraction]o n 06-17-2023 A1C HEMOGLOBIN [facility] [employer] Other CBC AND AUTO DIFFon 05-24-20 23 ABSOLUTE BASOPHIL 0.1 X10E9/L Normal 0.0-0.2 [facility] Comment on above: Performed By: #### C , 3040-3, 32547-4, 89151-0, CBCA #### [facility] ([id number]) [address] [place] [address] Band form neutrophils/100 WBC (Bld) 2.0 % Normal [facility] Comment on above: Performed By: #### C MP, 3040-3, 60441-4, 26221-1, CBCA #### [facility] ([id number]) [address] [place] [address] Basophils/100 WBC (Bld) 1.0 % Normal [facility] Comment on above: Performed By: #### C LIZBET, 3040-3, 69471-2, 34768-3, CBCA #### [facility] ([id number]) [address] [place] [address] Erythrocyte distribution width (RBC) [Ratio] 15.4 % High 11.5-15.0 [facility] Comment on above: Performed By: #### C LIZBET, 3040-3, , 20713-1, CBCA #### [facility] ([id number]) [address] [place] [address] Hematocrit (Bld) [Volume fraction] 35.3 % Normal 35-47 [facility] Comment on above: Performed By: #### C LIZBET, 3040-3, , 36257-9, CBCA #### [facility] ([id number]) [address] [place] [address] Hemoglobin (Bld) [Mass/Vol] 11.4 g/dL Low 11.7-15.5 [facility] Comment on above: Performed By: #### C LIZBET, 3040-3, , 51572-8, CBCA #### [facility] ([id number]) [address] [place] [address]199 LYMPHOCYTE, ATYPICAL 1.0 % Normal [facility] Comment on above: Performed By: #### C LIZBET, 3040-3, , 77098-8, CBCA #### [facility] ([id number]) [address] [place] [address] Lymphocytes (Bld) [#/Vol] 1.2 10*3/uL Normal 1.0-3.5 [facility] Comment on above: Performed By: #### C LIZBET, 3040-3, 09071-5, 54802-3, CBCA #### [facility] ([id number]) [address] [place] [address] Lymphocytes/100 WBC (Bld) 11.0 % Normal [facility] Comment on above: Performed By: #### Bob SOMERS, 0-3, , 17479-1, CBCA #### [facility] ([id number]) [address] [place] [address] 21457 MCH (RBC) [Entitic mass] 29.8 pg Normal 27-34 [facility] Comment on above: Performed By: #### C LIZBET, 0-3, , 25997-9, CBCA #### [facility] ([id number]) [address] [place] [address] MCHC (RBC) [Mass/Vol] 32.3 g/dL Normal 32-36 [facility] Comment on above: Performed By: #### Bob SOMERS, 3039-3, , 55226-8, CBCA #### [facility] ([id number]) [address] [place] [address] MCV (RBC) [Entitic vol] 92 fL Normal 80-100 [facility] Comment on above: Performed By: #### C LIZBET, 0-3, , 08839-3, CBCA #### [facility] ([id number]) [address] [place] [address] Monocytes (Bld) [#/Vol] 1.1 10*3/uL High 0-0.9 [facility] Comment on above: Performed By: #### Bob SOMERS, 3040-3, , 82172-7, CBCA #### [facility] ([id number]) [address] [place] [address] 26528 Monocytes/100 WBC (Bld) 11.0 % Normal [facility] Comment on above: Performed By: #### C LIZBET, 3040-3, , 28323-0, CBCA #### [facility] ([id number]) [address] [place] [address] Neutrophils (Bld) [#/Vol] 7.3 10*3/uL High 1.5-6.6 [facility] Comment on above: Performed By: #### C LIZBET, 0-3, , 08092-1, CBCA #### [facility] ([id number]) [address] [place] [address] Platelet mean volume (Bld) [Entitic vol] 9.0 fL Normal 7-12 [facility] Comment on above: Performed By: #### C LIZBET, 3039-3, , 61190-2, CBCA #### [facility] ([id number]) [address] [place] [address] 61518 Platelets (Bld) [#/Vol] 311 10*3/uL Normal 150-450 [facility] Comment on above: Performed By: #### C LIZBET, 0-3, , 71402-1, CBCA #### [facility] ([id number]) [address] [place] [address] 55221 RBC COUNT 3.82 X10E12/L Normal 3.80-5.20 [facility] Comment on above: Performed By: #### C LIZBET, 3040-3, , 91274-9, CBCA #### [facility] ([id number]) [address] [place] [address] 45712 RBC morphology finding Nom (Bld) REVIEWED Normal [facility] Comment on above: Performed By: #### C LIZBET, 3040-3, , 24327-7, CBCA #### [facility] ([id number]) [address] [place] [address] 06282 SEG NEUTROPHIL 74.0 % Normal [facility] Comment on above: Performed By: #### C LIZBET, 3040-3, 49965-3, 53959-2, CBCA #### [facility] ([id number]) [address] [place] [address] 57941 WBC (Bld) [#/Vol] 9.7 10*3/uL Normal 4.0-11.0 [facility] Comment on above: Performed By: #### C LIZBET, 0-3, , 76018-1, CBCA #### [facility] ([id number]) [address] [place] [address] 12552 COMPREHENSIVE METABOLIC PANE [facility] 05-24-2023 Albumin [Mass/Vol] 4.5 g/dL Normal 3.2-5.3 [facility] Comment on above: Performed By: #### C LIZBET, 3040-3, , 30100-0, CBCA #### [facility] ([id number]) [address] [place] [address] 66643 ALP [Catalytic activity/Vol] 119 U/L Normal 39-130 [facility] Comment on above: Performed By: #### C LIZBET, 3040-3, , 89548-7, CBCA #### [facility] ([id number]) [address] [place] [address] 71440 ALT [Catalytic activity/Vol] 30 U/L Normal 0-31 [facility] Comment on above: Performed By: #### C LIZBET, 3040-3, , 13352-7, CBCA #### [facility] ([id number]) [address] [place] [address] 10125 Anion gap [Moles/Vol] 7 mmol/L Normal 5-15 [facility] Comment on above: Performed By: #### C LIZBET, 3040-3, , 33272-5, CBCA #### [facility] ([id number]) [address] [place] [address] 63638 AST [Catalytic activity/Vol] 27 U/L Normal 0-41 [facility] Comment on above: Performed By: #### C LIZBET, 0-3, , 14173-3, CBCA #### [facility] ([id number]) [address] [place] [address] 45237 Bilirubin [Mass/Vol] 0.3 mg/dL Normal 0.3-1.[address] [facility] Comment on above: Performed By: #### C LIZBET, 0-3, , 92898-7, CBCA #### [facility] ([id number]) [address] [place] [address] 11392 Calcium [Mass/Vol] 8.3 mg/dL Low 8.5-10.5 [facility] Comment on above: Performed By: #### C LIZBET, 0-3, , 37580-3, CBCA #### [facility] ([id number]) [address] [place] [address] 77842 Chloride [Moles/Vol] 107 mmol/L Normal 98-[address] [facility] Comment on above: Performed By: #### C LIZBET, 3040-3, , 87814-5, CBCA #### [facility] ([id number]) [address] [place] [address] 76629 CO2 [Moles/Vol] 20 mmol/L Low 22-32 [facility] Comment on above: Performed By: #### C LIZBET, 3040-3, , 10655-8, CBCA #### [facility] ([id number]) [address] [place] [address] 26389 Creatinine [Mass/Vol] 2.00 mg/dL High 0.40-1.00 [facility] Comment on above: Result Comment: METH OD TRACEABLE TO IDMS STANDARD Performed By: #### C LIZBET, 3040-3, 10183-9, 97091-0, CBCA #### [facility] ([id number]) [address] [place] [address] 98556 GFR/1.73 sq M.predicted among non-blacks MDRD (S/P/Bld) [Vol rate/Area] 32 mL/min/{1.73_m2} Low >59 [facility] Comment on above: Result Comment: Reported eGFR is based on the CKD-EPI 2020 equation that does not use a race coefficient. Performed By: #### C LIZBET, 3040-3, , 92562-8, CBCA #### [facility] ([id number]) [address] [place] [address] 13831 Glucose [Mass/Vol] 160 mg/dL High 65-99 [facility] Comment on above: Performed By: #### C LIZBET, 3040-3, , 25769-0, CBCA #### [facility] ([id number]) [address] [place] [address] 68107 Potassium [Moles/Vol] 4.0 mmol/L Normal 3.5-5.0 [facility] Comment on above: Performed By: #### C LIZBET, 3040-3, , 12834-9, CBCA #### [facility] ([id number]) [address] [place] [address] 67078 Protein [Mass/Vol] 8.0 g/dL Normal 6.0-8.0 [facility] Comment on above: Performed By: #### C LIZBET, 3040-3, , 17717-3, CBCA #### [facility] ([id number]) [address] [place] [address] 93257 Sodium [Moles/Vol] 134 mmol/L Normal 134-146 [facility] Comment on above: Performed By: #### C LIZBET, 3040-3, 64834-8, 52461-6, CBCA #### [facility] ([id number]) [address] [place] [address] 06286 Urea nitrogen [Mass/Vol] 33 mg/dL High 5-23 [facility] Comment on above: Performed By: #### C LIZBET, 3040-3, 89410-4, 05157-3, CBCA #### [facility] ([id number]) [address] [place] [address] 71419 LIPASEon 05-24-2023 Lipase [Catalytic activity/Vol] 20 U/L Normal 17-40 [facility] Comment on above: Performed By: #### C LIZBET, 3040-3, , 02962-9, CBCA #### [facility] ([id number]) [address] [place] [address] 76368 Lactate (P demetra) [Moles/Vol]o n 05-24-2023 LACTATE W/REFLEX 0.7 mmol/L Normal 0.4-2.0 [facility] Comment on above: Result Comment: Result did not trigger repeat Lactate, re-order if needed. Performed By: #### C LIZBET, 3040-3, , 96279-0, CBCA #### [facility] ([id number]) [address] [place] [address] 45643 MAGNESIUMon 05-24-2023 Magnesium [Mass/Vol] 1.7 mg/dL Low 1.8-2.[address] [facility] Comment on above: Performed By: #### C LIZBET, 3040-3, 87594-9, 46154-7, CBCA #### [facility] ([id number]) [address] [place] [address] SARS/FLU A+B/RSV by NAAT/Mol alia 05-24-2023 SARS/FLU A+B/RSV by NAAT/Molecular FLU A PCR Negative (qualifier value) FLU B PCR Negative (qualifier value) RSV by PCR Negative (qualifier value) SARS CoV 2 Detected (qualifier value) NOTE The Xpert Xpress SARS-CoV-2/Flu/RSV Plus test is a rapid, multiplexed real-time RT-PCR test intended for the simultaneous qualitative detection and differentiation of SARS-CoV-2, influenza A, influenza B and respiratory syncytial virus (RSV) viral RNA from individuals suspected of respiratory viral infection consistent with COVID-19 by their healthcare provider. This test has not been validated in asymptomatic patients. The Xpert Xpress SARS-CoV-2 test is intended for use by qualified and trained operators who are performing tests using either [employer] or [employer] systems and is limited to laboratories that meet the CLIA requirements to perform high and moderate complexity tests. The Xpert Xpress SARS-CoV-2/Flu/RSV Plus is only for use under the Food and Drug Administration's Emergency Use Authorization. Results are for the simultaneous detection and differentiation of SARS-CoV-2, influenza A, influenza B and RSV nucleic acids in clinical specimens. SARS-CoV-2, influenza A, influenza B and RSV RNA identified by this test are generally detectable in upper respiratory samples during the acute phase of infection. Positive results are indicative of the presence of the identified virus, but do not rule out bacterial infection or co-infection with other pathogens not detected by this test. Clinical correlation with patient history and other diagnostic information is necessary to determine patient infection status. The agent detected may not be the definite cause of disease. Negative results do not preclude SARS-CoV-2, influenza A, influenza B and RSV infection and should not be used as the sole basis for treatment or other patient management decisions. Negative results must be combined with clinical observations, patient history and epidemiological information. An Invalid result may occur with specimen-associated inhibition unable to be resolved with specimen repeat. Fact Sheet for Healthcare Providers: https://www.fda.gov/media /462303/download Fact Sheet for Patients: https://www.fda.gov/media /324812/download Normal [facility] Comment on above: Performed By: #### C OVFLR #### [facility] ([id number]) [address] [place] [address] Acanthocytes [Presence] in B lood by Light microscopyOrdered By: Víctor Stuart on 05-20-2023 Acanthocytes LM Ql (Bld) Slight [facility] Alanine aminotransferase [En zymatic activity/volume] in Serum or PlasmaOrdered By: Víctor Stuart on 05-20-2023 ALT [Catalytic activity/Vol] 17 U/L 7-52 [facility] Albumin [Mass/volume] in Ser um or Plasma by Bromocresol green (BCG) dye binding methoOrdered By: Víctor Stuart on 05-20-2023 Albumin BCG dye [Mass/Vol] 4.2 g/dL 3.5-5.7 [facility] Alkaline phosphatase [Enzyma tic activity/volume] in Serum or PlasmaOrdered By: Víctor Stuart on 05-20-2023 ALP [Catalytic activity/Vol] 88 U/L 34-104 [facility] Aspartate aminotransferase [ Enzymatic activity/volume] in Serum or PlasmaOrdered By: Víctor Stuart on 05-20-2023 AST [Catalytic activity/Vol] 17 U/L 13-39 [facility] Band form neutrophils/100 WB C Manual cnt (Bld)Ordered By: Víctor Stuart on 05-20-2023 Band form neutrophils/100 WBC (Bld) 2 % 0-5 [facility] Basophils Auto (Bld) [#/Vol] Ordered By: Víctor Stuart on 05-20-2023 Basophils (Bld) [#/Vol] N/A [facility] Basophils/100 WBC Auto (Bld) Ordered By: Víctor Stuart on 05-20-2023 Basophils/100 WBC (Bld) N/A [facility] Basophils/100 WBC Manual cnt (Bld)Ordered By: Víctor Stuart on 05-20-2023 Basophils/100 WBC (Bld) 2 % 0-2 [facility] Bilirubin.total [Mass/volume ] in Serum or PlasmaOrdered By: Víctor Stuart on 05-20-2023 Bilirubin [Mass/Vol] 0.3 mg/dL 0.3-1.0 [facility] cells [Presence] in Blo od by Light microscopyOrdered By: Víctor Stuart on 05-20-2023 Fanny cells LM Ql (Bld) Slight [facility] Calcium [Mass/volume] in Ser um or PlasmaOrdered By: Víctor Stuart on 05-20-2023 Calcium [Mass/Vol] 8.8 mg/dL 8.6-10.3 [facility] Carbon dioxide, total [Moles /volume] in Serum or PlasmaOrdered By: Víctor Stuart on 05-20-2023 CO2 [Moles/Vol] 20.9 mmol/L 21.0-31.0 [facility] Chloride [Moles/volume] in S michael or PlasmaOrdered By: Víctor Stuart on 05-20-2023 Chloride [Moles/Vol] 111 mmol/L 98-107 [facility] Creatinine [Mass/volume] in Serum or PlasmaOrdered By: Víctor Stuart on 05-20-2023 Creatinine [Mass/Vol] 1.75 mg/dL 0.60-1.[address] [facility] Eosinophils Auto (Bld) [#/Vo l]Ordered By: Víctor Stuart on 05-20-2023 Eosinophils (Bld) [#/Vol] N/A [facility] Eosinophils/100 WBC Auto (Bl d)Ordered By: Víctor Stuart on 05-20-2023 Eosinophils/100 WBC (Bld) N/A [facility] Eosinophils/100 WBC Manual c nt (Bld)Ordered By: Víctor Stuart on 05-20-2023 Eosinophils/100 WBC (Bld) 3 % 1-3 [facility] Erythrocyte distribution wid th Auto (RBC) [Ratio]Ordered By: Víctor Stuart on 05-20-2023 Erythrocyte distribution width (RBC) [Ratio] 16.1 % 11.9-15.3 [facility] Giant platelets/100 leukocyt es [Ratio] in Blood by Manual countOrdered By: Víctor Stuart on 05-20-2023 Giant platelets/100 WBC Manual cnt (Bld) [Ratio] 1 /100{WBC} [facility] Globulin Calc (S) [Mass/Vol] Ordered By: Víctor Stuart on 05-20-2023 Globulin (S) [Mass/Vol] 2.9 g/dL [facility] Glucose [Mass/volume] in Ser um or PlasmaOrdered By: Víctor Stuart on 05-20-2023 Glucose [Mass/Vol] 146 mg/dL 70-100 [facility] Comment on above: ADA recommended refe rence rangeRandom Glucose Reference Range is dependent on time and content of last meal. Glucose of more than 200 mg/dL in a nonstressed, ambulatory subject supports the diagnosis of Diabetes Mellitus. Hematocrit Auto (Bld) [Volum e fraction]Ordered By: Víctor Stuart on 05-20-2023 Hematocrit (Bld) [Volume fraction] 33.2 % 34.0-46.4 [facility] Hemoglobin [Mass/volume] in BloodOrdered By: Víctor Stuart on 05-20-2023 Hemoglobin (Bld) [Mass/Vol] 10.8 g/dL 11.8-15.4 [facility] Hypochromia LM Ql (Bld)Order ed By: Víctor Stuart on 05-20-2023 Hypochromia Ql (Bld) Slight [facility] Leukocytes [#/volume] correc aarti for nucleated erythrocytes in Blood by Automated counOrdered By: Víctor Stuart on 05-20-2023 WBC corrected for nucl RBC Auto (Bld) [#/Vol] 10.1 10*3/uL 3.8-11.6 [facility] Lymphocytes Auto (Bld) [#/Vo l]Ordered By: Víctor Stuart on 05-20-2023 Lymphocytes (Bld) [#/Vol] N/A [facility] Lymphocytes/100 WBC Auto (Bl d)Ordered By: Víctor Stuart on 05-20-2023 Lymphocytes/100 WBC (Bld) N/A [facility] Lymphocytes/100 WBC Manual c nt (Bld)Ordered By: Víctor Stuart on 05-20-2023 Lymphocytes/100 WBC (Bld) 21 % 18-42 [facility] MCH Auto (RBC) [Entitic mass ]Ordered By: Víctor Stuart on 05-20-2023 MCH (RBC) [Entitic mass] 29.9 pg 24.7-34.3 [facility] MCHC Auto (RBC) [Mass/Vol]Or dered By: Víctor Stuart on 05-20-2023 MCHC (RBC) [Mass/Vol] 32.5 g/dL 32.0-35.[address] [facility] MCV Auto (RBC) [Entitic vol] Ordered By: Víctor Stuart on 05-20-2023 MCV (RBC) [Entitic vol] 92.1 fL 80-100 [facility] Magnesium [Mass/volume] in S michael or PlasmaOrdered By: Víctor Stuart on 05-20-2023 Magnesium [Mass/Vol] 1.8 mg/dL 1.9-2.7 [facility] Microcytes LM Ql (Bld)Ordere d By: Víctor Stuart on 05-20-2023 Microcytes Ql (Bld) Slight [facility] Monocyte distribution width [Entitic volume] in Blood by AutomatedOrdered By: Víctor Stuart on 05-20-2023 Monocyte distribution width Auto (Bld) [Entitic vol] Test not performed % 0.00-20.00 [facility] Comment on above: For adults in ED, MD W > 20.0 may be associated with a higher risk of sepsis during the first 12 hrs of hospital admissionUnable to calculate MDW because the Absolute Monocyte Count is <0.8. Monocytes Auto (Bld) [#/Vol] Ordered By: Víctor Stuart on 05-20-2023 Monocytes (Bld) [#/Vol] N/A [facility] Monocytes/100 WBC Auto (Bld) Ordered By: Víctor Stuart on 05-20-2023 Monocytes/100 WBC (Bld) N/A [facility] Monocytes/100 WBC Manual cnt (Bld)Ordered By: Víctor Stuart on 05-20-2023 Monocytes/100 WBC (Bld) 9 % 2-11 [facility] Neutrophils Auto (Bld) [#/Vo l]Ordered By: Víctor Stuart on 05-20-2023 Neutrophils (Bld) [#/Vol] N/A [facility] Neutrophils/100 WBC Auto (Bl d)Ordered By: Víctor Stuart on 05-20-2023 Neutrophils/100 WBC (Bld) N/A [facility] No Panel InformationOrdered By: Víctor Stuart on 05-20-2023 Estimated GFR (CKD-EPI) 38.019 mL/Min [facility] Creatinine Clearance (Chem 44.40 [facility] Nucleated erythrocytes [Pres ence] in Blood by Automated countOrdered By: Víctor Stuart on 05-20-2023 Nucleated RBC Auto Ql (Bld) N/A [facility] Ovalocyte detectionOrdered B y: Víctor Stuart on 05-20-2023 Ovalocytes LM Ql (Bld) Slight [facility] Platelet adequacy [Presence] in Blood by Light microscopyOrdered By: Víctor Stuart on 05-20-2023 Platelets LM Ql (Bld) Normal Normal [facility] Platelet mean volume Auto (B ld) [Entitic vol]Ordered By: Víctor Stuart on 05-20-2023 Platelet mean volume (Bld) [Entitic vol] 9.5 fL 6.3-10.7 [facility] Platelet morphology finding [Identifier] in BloodOrdered By: Víctor Stuart on 05-20-2023 Platelet morphology finding Nom (Bld) N/A [facility] Platelets Auto (Bld) [#/Vol] Ordered By: Víctor Stuart on 05-20-2023 Platelets (Bld) [#/Vol] 351 10*3/uL 150-450 [facility] Platelets Large [Presence] i n Blood by Light microscopyOrdered By: Víctor Stuart on 05-20-2023 Platelets Large LM Ql (Bld) Slight [facility] Poikilocytosis [Presence] in Blood by Light microscopyOrdered By: Víctor Stuart on 05-20-2023 Poikilocytosis LM Ql (Bld) Moderate [facility] Potassium [Moles/volume] in Serum or PlasmaOrdered By: Víctor Stuart on 05-20-2023 Potassium [Moles/Vol] 4.2 mmol/L 3.5-5.[address] [facility] Protein [Mass/volume] in Ser um or PlasmaOrdered By: Víctor Stuart on 05-20-2023 Protein [Mass/Vol] 7.1 g/dL 6.4-8.9 [facility] RBC Auto (Bld) [#/Vol]Ordere d By: Víctor Stuart on 05-20-2023 RBC (Bld) [#/Vol] 3.61 10*6/uL 3.60-5.00 [facility] RBC morphologyOrdered By: Taj Stuart on 05-20-2023 RBC morphology finding Nom (Bld) N/A [facility] Schistocytes [Presence] in B lood by Light microscopyOrdered By: Víctor Stuart on 05-20-2023 Schistocytes LM Ql (Bld) Slight [facility] Segmented neutrophils/100 WB C Manual cnt (Bld)Ordered By: Víctor Stuart on 05-20-2023 Segmented neutrophils/100 WBC (Bld) 64 % 50-70 [facility] Serum or plasma albumin/glob ulin mass ratioOrdered By: Víctor Stuart on 05-20-2023 Albumin/Globulin [Mass ratio] 1.4 {ratio} [facility] Serum or plasma anion gap de terminationOrdered By: Víctor Stuart on 05-20-2023 Anion gap [Moles/Vol] 10.3 mmol/L 6.0-15.0 [facility] Sodium [Moles/volume] in Ser um or PlasmaOrdered By: Víctor Stuart on 05-20-2023 Sodium [Moles/Vol] 138 mmol/L 136-145 [facility] Urea nitrogen [Mass/volume] in Serum or PlasmaOrdered By: Víctor Stuart on 05-20-2023 Urea nitrogen [Mass/Vol] 26 mg/dL 7-25 [facility] WBC Auto (Bld) [#/Vol]Ordere d By: Víctor Stuart on 05-20-2023 WBC (Bld) [#/Vol] 10.1 10*3/uL 3.8-11.6 [facility] Anisocytosis LM Ql (Bld)Orde red By: Nico Wheeler on 05-19-2023 Anisocytosis Ql (Bld) Slight [facility] Basophils Auto (Bld) [#/Vol] Ordered By: Nico Wheeler on 05-19-2023 Basophils (Bld) [#/Vol] N/A [facility] Basophils/100 WBC Auto (Bld) Ordered By: Nico Wheeler on 05-19-2023 Basophils/100 WBC (Bld) N/A [facility] Basophils/100 WBC Manual cnt (Bld)Ordered By: Nico Wheeler on 05-19-2023 Basophils/100 WBC (Bld) 1 % 0-2 [facility] Calcium [Mass/volume] in Ser um or PlasmaOrdered By: Nico Wheeler on 05-19-2023 Calcium [Mass/Vol] 9.0 mg/dL 8.6-10.3 [facility] Carbon dioxide, total [Moles /volume] in Serum or PlasmaOrdered By: Nico Wheeler on 05-19-2023 CO2 [Moles/Vol] 20.4 mmol/L 21.0-31.0 [facility] Chloride [Moles/volume] in S michael or PlasmaOrdered By: Nico Wheeler on 05-19-2023 Chloride [Moles/Vol] 110 mmol/L 98-107 [facility] Creatinine [Mass/volume] in Serum or PlasmaOrdered By: Nico Wheeler on 05-19-2023 Creatinine [Mass/Vol] 1.85 mg/dL 0.60-1.[address] [facility] Eosinophils Auto (Bld) [#/Vo l]Ordered By: Nico Wheeler on 05-19-2023 Eosinophils (Bld) [#/Vol] N/A [facility] Eosinophils/100 WBC Auto (Bl d)Ordered By: Nico Wheeler on 05-19-2023 Eosinophils/100 WBC (Bld) N/A [facility] Erythrocyte distribution wid th Auto (RBC) [Ratio]Ordered By: Nico Wheeler on 05-19-2023 Erythrocyte distribution width (RBC) [Ratio] 15.7 % 11.9-15.3 [facility] Glucose [Mass/volume] in Ser um or PlasmaOrdered By: Nico Wheeler on 05-19-2023 Glucose [Mass/Vol] 148 mg/dL 70-100 [facility] Comment on above: ADA recommended refe rence rangeRandom Glucose Reference Range is dependent on time and content of last meal. Glucose of more than 200 mg/dL in a nonstressed, ambulatory subject supports the diagnosis of Diabetes Mellitus. Hematocrit Auto (Bld) [Volum e fraction]Ordered By: Nico Wheeler on 05-19-2023 Hematocrit (Bld) [Volume fraction] 35.1 % 34.0-46.4 [facility] Hemoglobin [Mass/volume] in BloodOrdered By: Nico Wheeler on 05-19-2023 Hemoglobin (Bld) [Mass/Vol] 11.3 g/dL 11.8-15.4 [facility] Hypochromia LM Ql (Bld)Order ed By: Nico Wheeler on 05-19-2023 Hypochromia Ql (Bld) Slight [facility] Leukocytes [#/volume] correc aarti for nucleated erythrocytes in Blood by Automated counOrdered By: Nico Wheeler on 05-19-2023 WBC corrected for nucl RBC Auto (Bld) [#/Vol] 11.1 10*3/uL 3.8-11.6 [facility] Lymphocytes Auto (Bld) [#/Vo l]Ordered By: Nico Wheeler on 05-19-2023 Lymphocytes (Bld) [#/Vol] N/A [facility] Lymphocytes/100 WBC Auto (Bl d)Ordered By: Nico Wheeler on 05-19-2023 Lymphocytes/100 WBC (Bld) N/A [facility] Lymphocytes/100 WBC Manual c nt (Bld)Ordered By: Nico Wheeler on 05-19-2023 Lymphocytes/100 WBC (Bld) 18 % 18-42 [facility] MCH Auto (RBC) [Entitic mass ]Ordered By: Nico Wheeler on 05-19-2023 MCH (RBC) [Entitic mass] 29.5 pg 24.7-34.3 [facility] MCHC Auto (RBC) [Mass/Vol]Or dered By: Nico Wheeler on 05-19-2023 MCHC (RBC) [Mass/Vol] 32.3 g/dL 32.0-35.[address] [facility] MCV Auto (RBC) [Entitic vol] Ordered By: Nico Wheeler on 05-19-2023 MCV (RBC) [Entitic vol] 91.5 fL 80-100 [facility] Microcytes LM Ql (Bld)Ordere d By: Nico Wheeler on 05-19-2023 Microcytes Ql (Bld) Slight [facility] Monocytes Auto (Bld) [#/Vol] Ordered By: Nico Wheeler on 05-19-2023 Monocytes (Bld) [#/Vol] N/A [facility] Monocytes/100 WBC Auto (Bld) Ordered By: Nico Wheeler on 05-19-2023 Monocytes/100 WBC (Bld) N/A [facility] Monocytes/100 WBC Manual cnt (Bld)Ordered By: Nico Wheeler on 05-19-2023 Monocytes/100 WBC (Bld) 3 % 2-11 [facility] Neutrophils Auto (Bld) [#/Vo l]Ordered By: Nico Wheeler on 05-19-2023 Neutrophils (Bld) [#/Vol] N/A [facility] Neutrophils/100 WBC Auto (Bl d)Ordered By: Nico Wheeler on 05-19-2023 Neutrophils/100 WBC (Bld) N/A [facility] No Panel InformationOrdered By: Nico Wheeler on 05-19-2023 Estimated GFR (CKD-EPI) 35.567 mL/Min [facility] Creatinine Clearance (Chem 42.00 [facility] Nucleated erythrocytes [Pres ence] in Blood by Automated countOrdered By: Nico Wheeler on 05-19-2023 Nucleated RBC Auto Ql (Bld) N/A [facility] Ovalocyte detectionOrdered B y: Nico Wheeler on 05-19-2023 Ovalocytes LM Ql (Bld) [facility] Platelet adequacy [Presence] in Blood by Light microscopyOrdered By: Nico Wheeler on 05-19-2023 Platelets LM Ql (Bld) Normal Normal Fir [facility] Platelet mean volume Auto (B ld) [Entitic vol]Ordered By: Nico Wheeler on 05-19-2023 Platelet mean volume (Bld) [Entitic vol] 8.6 fL 6.3-10.7 [facility] Platelet morphology finding [Identifier] in BloodOrdered By: Nico Wheeler on 05-19-2023 Platelet morphology finding Nom (Bld) Normal Normal [facility] Platelets Auto (Bld) [#/Vol] Ordered By: Nico Wheeler on 05-19-2023 Platelets (Bld) [#/Vol] 377 10*3/uL 150-450 [facility] Polychromasia [Presence] in Blood by Light microscopyOrdered By: Nico Wheeler on 05-19-2023 Polychromasia LM Ql (Bld) Slight [facility] Potassium [Moles/volume] in Serum or PlasmaOrdered By: Nico Wheeler on 05-19-2023 Potassium [Moles/Vol] 4.2 mmol/L 3.5-5.[address] [facility] RBC Auto (Bld) [#/Vol]Ordere d By: Nico Wheeler on 05-19-2023 RBC (Bld) [#/Vol] 3.83 10*6/uL 3.60-5.00 [facility] RBC morphologyOrdered By: Gabrielle Wheeler on 05-19-2023 RBC morphology finding Nom (Bld) N/A [facility] Schistocytes [Presence] in B lood by Light microscopyOrdered By: Nico Wheeler on 05-19-2023 Schistocytes LM Ql (Bld) Slight [facility] Segmented neutrophils/100 WB C Manual cnt (Bld)Ordered By: Nico Wheeler on 05-19-2023 Segmented neutrophils/100 WBC (Bld) 78 % 50-70 [facility] Serum or plasma anion gap de terminationOrdered By: Nico Wheeler on 05-19-2023 Anion gap [Moles/Vol] 13.8 mmol/L 6.0-15.0 [facility] Sodium [Moles/volume] in Ser um or PlasmaOrdered By: Nico Wheeler on 05-19-2023 Sodium [Moles/Vol] 140 mmol/L 136-145 [facility] Urea nitrogen [Mass/volume] in Serum or PlasmaOrdered By: Nico Wheeler on 05-19-2023 Urea nitrogen [Mass/Vol] 27 mg/dL 7-25 [facility] WBC Auto (Bld) [#/Vol]Ordere d By: Nico Wheeler on 05-19-2023 WBC (Bld) [#/Vol] 11.1 10*3/uL 3.8-11.6 [facility] [facility] LM Ql (Bld)Orde red By: George Núñez on 05-13-2023 Anisocytosis Ql (Bld) Slight [facility] Bacterial blood cultureOrder ed By: George Núñez on 05-13-2023 Bacteria identified Cx Nom (Bld) NO GROWTH 5 DAYS [facility] Bacteria identified Cx Nom (Bld) NO GROWTH 5 DAYS [facility] Basophils Auto (Bld) [#/Vol] Ordered By: George Núñez on 05-13-2023 Basophils (Bld) [#/Vol] N/A [facility] Basophils/100 WBC Auto (Bld) Ordered By: George Núñez on 05-13-2023 Basophils/100 WBC (Bld) N/A [facility] Beta hydroxybutyrate [Moles/ volume] in Serum or PlasmaOrdered By: George Núñez on 05-13-2023 Beta hydroxybutyrate [Moles/Vol] 0.10 mmol/L 0.02-0.27 [facility] Bilirubin Test strip Ql (U)O rdered By: George Núñez on 05-13-2023 Bilirubin Ql (U) Negative Negative [facility] [place] cells [Presence] in Blo od by Light microscopyOrdered By: George Núñez on 05-13-2023 [place] cells LM Ql (Bld) Slight [facility] COVID-19 Detected/Not Detect edOrdered By: George Núñez on 05-13-2023 SARS-CoV-2 (COVID-19) RNA DAVIS+non-probe Ql (Nph) Not detected Not Detecte [facility] Comment on above: This is a duplicate RP2.1 COVID (PCR) result to be used for statistical tracking purpose only. Calcium [Mass/volume] in Ser um or PlasmaOrdered By: George Núñez on 05-13-2023 Calcium [Mass/Vol] 9.2 mg/dL 8.6-10.3 [facility] Carbon dioxide, total [Moles /volume] in Serum or PlasmaOrdered By: George Núñez on 05-13-2023 CO2 [Moles/Vol] 21.5 mmol/L 21.0-31.0 [facility] Chloride [Moles/volume] in S michael or PlasmaOrdered By: George Núñez on 05-13-2023 Chloride [Moles/Vol] 110 mmol/L 98-107 [facility] Color Auto (U)Ordered By: Ramses Núñez on 05-13-2023 Color (U) Yellow Yellow [facility] Creatinine [Mass/volume] in Serum or PlasmaOrdered By: George Núñez on 05-13-2023 Creatinine [Mass/Vol] 1.96 mg/dL 0.60-1.[address] [facility] Eosinophils Auto (Bld) [#/Vo l]Ordered By: George Núñez on 05-13-2023 Eosinophils (Bld) [#/Vol] N/A [facility] Eosinophils/100 WBC Auto (Bl d)Ordered By: George Núñez on 05-13-2023 Eosinophils/100 WBC (Bld) N/A [facility] Erythrocyte distribution wid th Auto (RBC) [Ratio]Ordered By: George Núñez on 05-13-2023 Erythrocyte distribution width (RBC) [Ratio] 16.7 % 11.9-15.3 [facility] Giant platelets/100 leukocyt es [Ratio] in Blood by Manual countOrdered By: George Núñez on 05-13-2023 Giant platelets/100 WBC Manual cnt (Bld) [Ratio] 3 /100{WBC} [facility] Glucose [Mass/volume] in Ser um or PlasmaOrdered By: Goerge Núñez on 05-13-2023 Glucose [Mass/Vol] 125 mg/dL 70-100 [facility] Comment on above: ADA recommended refe rence rangeRandom Glucose Reference Range is dependent on time and content of last meal. Glucose of more than 200 mg/dL in a nonstressed, ambulatory subject supports the diagnosis of Diabetes Mellitus. HCG ( test) IA.rapi d Ql (U)Ordered By: George Núñez on 05-13-2023 HCG ( test) Ql (U) Negative [facility] Hematocrit Auto (Bld) [Volum e fraction]Ordered By: George Núñez on 05-13-2023 Hematocrit (Bld) [Volume fraction] 34.7 % 34.0-46.4 [facility] Hemoglobin [Mass/volume] in BloodOrdered By: George Núñez on 05-13-2023 Hemoglobin (Bld) [Mass/Vol] 11.3 g/dL 11.8-15.4 [facility] Hypochromia LM Ql (Bld)Order ed By: George Núñez on 05-13-2023 Hypochromia Ql (Bld) Slight [facility] INR in Platelet poor plasma by Coagulation assayOrdered By: George Núñez on 05-13-2023 INR Coag (PPP) [Relative time] 1.0 {INR} [facility] Comment on above: INR Therapeutic Rang e A) Pre- and Peroperative OAT started two weeks before surgery. NOT HIP SURGERY: 1.5 - 2.5 HIP SURGERY: 2 - 3B) Primary and secondary prevention of venous THROMBOSIS: 2 - 3C) Active venous thrombosis, pulmonary embolismand prevention of recurrent venous thrombosis: 2 - 3D) Prevention of arterial thromboembolismincluding patients with mechanical heart valves: 3 - 4.5 Ketones Auto test strip (U) [Mass/Vol]Ordered By: George Núñez on 05-13-2023 Ketones (U) [Mass/Vol] Negative Negative [facility] Lactate [Moles/volume] in Se rum or PlasmaOrdered By: George Núñez on 05-13-2023 Lactate [Moles/Vol] 1.6 mmol/L 0.5-2.2 [facility] Leukocytes [#/volume] correc aarti for nucleated erythrocytes in Blood by Automated counOrdered By: George Núñez on 05-13-2023 WBC corrected for nucl RBC Auto (Bld) [#/Vol] 10.2 10*3/uL 3.8-11.6 [facility] Lymphocytes Auto (Bld) [#/Vo l]Ordered By: George Núñez on 05-13-2023 Lymphocytes (Bld) [#/Vol] N/A [facility] Lymphocytes/100 WBC Auto (Bl d)Ordered By: George Núñez on 05-13-2023 Lymphocytes/100 WBC (Bld) N/A [facility] Lymphocytes/100 WBC Manual c nt (Bld)Ordered By: George Núñez on 05-13-2023 Lymphocytes/100 WBC (Bld) 19 % 18-42 [facility] MCH Auto (RBC) [Entitic mass ]Ordered By: George Núñez on 05-13-2023 MCH (RBC) [Entitic mass] 29.8 pg 24.7-34.3 [facility] MCHC Auto (RBC) [Mass/Vol]Or dered By: George Núñez on 05-13-2023 MCHC (RBC) [Mass/Vol] 32.6 g/dL 32.0-35.[address] [facility] MCV Auto (RBC) [Entitic vol] Ordered By: George Núñez on 05-13-2023 MCV (RBC) [Entitic vol] 91.6 fL 80-100 [facility] Microcytes LM Ql (Bld)Ordere d By: George Núñez on 05-13-2023 Microcytes Ql (Bld) Slight [facility] Monocyte distribution width [Entitic volume] in Blood by AutomatedOrdered By: George Núñez on 05-13-2023 Monocyte distribution width Auto (Bld) [Entitic vol] Test not performed % 0.00-20.00 [facility] Comment on above: For adults in ED, MD W > 20.0 may be associated with a higher risk of sepsis during the first 12 hrs of hospital admissionUnable to calculate MDW because the Absolute Monocyte Count is <0.8. Monocytes Auto (Bld) [#/Vol] Ordered By: George Núñez on 05-13-2023 Monocytes (Bld) [#/Vol] N/A [facility] Monocytes/100 WBC Auto (Bld) Ordered By: George Núñez on 05-13-2023 Monocytes/100 WBC (Bld) N/A [facility] Monocytes/100 WBC Manual cnt (Bld)Ordered By: George Núñez on 05-13-2023 Monocytes/100 WBC (Bld) 2 % 2-11 [facility] Neutrophils Auto (Bld) [#/Vo l]Ordered By: George Núñez on 05-13-2023 Neutrophils (Bld) [#/Vol] N/A [facility] Neutrophils/100 WBC Auto (Bl d)Ordered By: George Núñez on 05-13-2023 Neutrophils/100 WBC (Bld) N/A [facility] Nitrite Test strip Ql (U)Ord ered By: George Núñez on 05-13-2023 Nitrite Ql (U) Negative Negative [facility] No Panel InformationOrdered By: George Núñez on 05-13-2023 Estimated GFR (CKD-EPI) 33.185 mL/Min [facility] Creatinine Clearance (Chem 39.64 [facility] Nucleated erythrocytes [Pres ence] in Blood by Automated countOrdered By: George Núñez on 05-13-2023 Nucleated RBC Auto Ql (Bld) N/A [facility] Ovalocyte detectionOrdered B y: George Núñez on 05-13-2023 Ovalocytes LM Ql (Bld) Slight [facility] Platelet adequacy [Presence] in Blood by Light microscopyOrdered By: George Núñez on 05-13-2023 Platelets LM Ql (Bld) Normal Normal [facility] Platelet mean volume Auto (B ld) [Entitic vol]Ordered By: George Núñez on 05-13-2023 Platelet mean volume (Bld) [Entitic vol] 8.9 fL 6.3-10.7 [facility] Platelet morphology finding [Identifier] in BloodOrdered By: George Núñez on 05-13-2023 Platelet morphology finding Nom (Bld) Normal Normal [facility] Platelets Auto (Bld) [#/Vol] Ordered By: George Núñez on 05-13-2023 Platelets (Bld) [#/Vol] 354 10*3/uL 150-450 [facility] Poikilocytosis [Presence] in Blood by Light microscopyOrdered By: George Núñez on 05-13-2023 Poikilocytosis LM Ql (Bld) [facility] Polychromasia [Presence] in Blood by Light microscopyOrdered By: George Núñez on 05-13-2023 Polychromasia LM Ql (Bld) [facility] Potassium [Moles/volume] in Serum or PlasmaOrdered By: George Núñez on 05-13-2023 Potassium [Moles/Vol] 4.2 mmol/L 3.5-5.[address] [facility] Protein Auto test strip (U) [Mass/Vol]Ordered By: George Núñez on 05-13-2023 Protein (U) [Mass/Vol] Negative Negative [facility] Prothrombin time (PT)Ordered By: George Núñez on 05-13-2023 PT Coag (PPP) [Time] 11.4 s 9.0-12.9 [facility] Comment on above: A hematocrit value g reater than 55% may lead to inaccurate results in coagulation testing. Patients having hematocrit values >55% require a special collection tube for coagulation studies. Please contact the laboratory at [phone] for redraw instructions. RBC Auto (Bld) [#/Vol]Ordere d By: George Núñez on 05-13-2023 RBC (Bld) [#/Vol] 3.79 10*6/uL 3.60-5.00 [facility] RBC morphologyOrdered By: Ramses Núñez on 05-13-2023 RBC morphology finding Nom (Bld) N/A [facility] Respiratory pathogens DNA an d RNA panel - Nasopharynx by DAVIS with non-probe detectionOrdered By: George Núñez on 05-13-2023 Respiratory pathogens DNA and RNA panel DAVIS+non-probe (Nph) [facility] Schistocytes [Presence] in B lood by Light microscopyOrdered By: George Núñez on 05-13-2023 Schistocytes LM Ql (Bld) Slight [facility] Segmented neutrophils/100 WB C Manual cnt (Bld)Ordered By: George Núñez on 05-13-2023 Segmented neutrophils/100 WBC (Bld) 80 % 50-70 [facility] Serum or plasma anion gap de terminationOrdered By: George Núñez on 05-13-2023 Anion gap [Moles/Vol] 11.7 mmol/L 6.0-15.0 [facility] Sodium [Moles/volume] in Ser um or PlasmaOrdered By: George Núñez on 05-13-2023 Sodium [Moles/Vol] 139 mmol/L 136-145 [facility] Specific gravity Auto test s trip (U) [Rel density]Ordered By: George Núñez on 05-13-2023 Specific gravity (U) [Rel density] 1.009 1.001-1.03 0 [facility] Thyrotropin [Units/volume] i n Serum or PlasmaOrdered By: George Núñez on 05-13-2023 TSH Qn 1.64 m[IU]/L 0.45-5.33 [facility] Troponin I.cardiac [Mass/vol ume] in Serum or Plasma by Detection limit <= 0.01 ng/Ordered By: George Núñez on 05-13-2023 Troponin I.cardiac DL <= 0.01 ng/mL [Mass/Vol] 6.1 pg/mL 0.0-15.0 [facility] Urea nitrogen [Mass/volume] in Serum or PlasmaOrdered By: George Núñez on 05-13-2023 Urea nitrogen [Mass/Vol] 23 mg/dL 7-25 [facility] Urine clarity by refractomet ry automatedOrdered By: George Núñez on 05-13-2023 Clarity Refractometry automated (U) Clear Clear [facility] Urine glucose measurement by automated test strip (mass/volume)Ordered By: George Núñez on 05-13-2023 Glucose Auto test strip (U) [Mass/Vol] Normal mg/dL Normal [facility] Urine hemoglobin detection b y automated test stripOrdered By: George Núñez on 05-13-2023 Hemoglobin Auto test strip Ql (U) Negative Negative [facility] Urine leukocyte esterase det ection by automated test stripOrdered By: George Núñez on 05-13-2023 Leukocyte esterase Auto test strip Ql (U) Negative Negative [facility] Urobilinogen Auto test strip (U) [Mass/Vol]Ordered By: George Núñez on 05-13-2023 Urobilinogen (U) [Mass/Vol] Normal mg/dL Normal [facility] WBC Auto (Bld) [#/Vol]Ordere d By: George Núñez on 05-13-2023 WBC (Bld) [#/Vol] 10.2 10*3/uL 3.8-11.6 [facility] pH Auto test strip (U)Ordere d By: George Núñez on 05-13-2023 pH (U) 5.5 [pH] 5.0-9.0 [facility] CBC with Diffon 04-26-2023 Abs. Basophil 0.06 k/uL Normal 0.00-0.20 [facility] Comment on above: Performed By: #### L ACTIC #### [facility] [address] [place] [address] Vocational Placement Specialist: Patti Swanson MD Abs. Eosinophil <0.03 Normal 0.00-0.44 [facility] Comment on above: Performed By: #### L ACTIC #### [facility] [address] [place] [address] [place] [address] Vocational Placement Specialist: Patti Swanson MD Abs.Imm.Granulocyte 0.04 k/uL Normal 0.00-0.30 [facility] Comment on above: Performed By: #### L ACTIC #### [facility] [address] [place] [address] [place], [place] [id number] Vocational Placement Specialist: Patti wSanson MD Abs.Neutrophil (Seg) 7.51 k/uL Normal 1.50-8.10 [facility] Comment on above: Performed By: #### L ACTIC #### [address] [place], [place] [id number] Vocational Placement Specialist: Patti Swanson MD Basophils/100 WBC (Bld) 1 % Normal 0-2 [facility] Comment on above: Performed By: #### L ACTIC #### [address] [place], [place] [id number] Vocational Placement Specialist: Patti Swanson MD Eosinophils/100 WBC (Bld) 0 % Low 1-4 [facility] Comment on above: Performed By: #### L ACTIC #### [address] [place], [facility] Vocational Placement Specialist: Patti Swanson MD Erythrocyte distribution width (RBC) [Ratio] 18.5 % High 11.8-14.4 [facility] Comment on above: Performed By: #### L ACTIC #### [address] [place] [address] Vocational Placement Specialist: Patti Swanson MD Hematocrit (Bld) [Volume fraction] 37.3 % Normal 36.3-47.1 [facility] Comment on above: Performed By: #### L ACTIC #### [facility] [address] [place] [address] Vocational Placement Specialist: Patti Swanson MD Hemoglobin (Bld) [Mass/Vol] 11.4 g/dL [place] 11.9-15.1 [facility] Comment on above: Performed By: #### L ACTIC #### [facility] [address] [place], [place] [id number] Vocational Placement Specialist: Patti Swanson MD Immature granulocytes/100 WBC (Bld) 0 % Normal 0 [facility] Comment on above: Performed By: #### L ACTIC #### [facility] [address] [place], [facility]83 Vocational Placement Specialist: Patti Swanson MD Lymphocytes (Bld) [#/Vol] 1.82 10*3/uL Normal 1.10-3.70 [facility] Comment on above: Performed By: #### L ACTIC #### [facility] [address] [place] [address] Dr[place], [facility] Vocational Placement Specialist: Patti Swanson MD Lymphocytes/100 WBC (Bld) 18 % [place] 24-43 [facility] Comment on above: Performed By: #### L ACTIC #### [address] [place] [address] Vocational Placement Specialist: Patti Swanson MD MCH (RBC) [Entitic mass] 29.0 pg Normal 25.2-33.5 [facility] Comment on above: Performed By: #### L ACTIC #### [facility] [address] [place] [address] [place], [place] [id number] Vocational Placement Specialist: Patti Swanson MD MCHC (RBC) [Mass/Vol] 30.6 g/dL Normal 28.4-34.8 [facility] Comment on above: Performed By: #### L ACTIC #### [facility] [address] [place] [address] Vocational Placement Specialist: Patti Swanson MD MCV (RBC) [Entitic vol] 94.9 fL Normal 82.6-102.9 [facility] Comment on above: Performed By: #### L ACTIC #### [facility] [address] [place], [place] [id number] Vocational Placement Specialist: Patti Swanson MD Monocytes (Bld) [#/Vol] 0.71 10*3/uL Normal 0.10-1.20 [facility] Comment on above: Performed By: #### L ACTIC #### [facility] [address] [place] [address] Vocational Placement Specialist: Patti Swanson MD Monocytes/100 WBC (Bld) 7 % Normal 3-12 [facility] Comment on above: Performed By: #### L ACTIC #### [address] [place], [facility] ( Vocational Placement Specialist: Patti Swanson MD Neutrophil (Seg) 74 % High 36-65 [facility] Comment on above: Performed By: #### L ACTIC #### [address] [place] [address] Vocational Placement Specialist: Patti Swanson MD NRBC Automated 0.0 per 100 WBC Normal 0.0 [facility] Comment on above: Performed By: #### L ACTIC #### [facility] [address] [place] [address] Dr[place], [facility] ( Vocational Placement Specialist: Patti Swanson MD Platelet mean volume (Bld) [Entitic vol] 10.1 fL Normal 8.1-13.5 [facility] Comment on above: Performed By: #### L ACTIC #### [address] [place], [place] [id number] Vocational Placement Specialist: Patti Swanson MD Platelets (Bld) [#/Vol] 376 10*3/uL Normal 138-453 [facility] Comment on above: Performed By: #### L ACTIC #### [facility] [address] [place], [place] [id number] Vocational Placement Specialist: Patti Swanson MD RBC (Bld) [#/Vol] 3.93 10*6/uL [place] 3.95-5.11 [facility] Comment on above: Performed By: #### L ACTIC #### [facility] [address] [place], [place] [phone] Vocational Placement Specialist: Patti Swanson MD WBC (Bld) [#/Vol] 10.2 10*3/uL Normal 3.5-11.3 [facility] Comment on above: Performed By: #### L ACTIC #### [facility] [address] [place], [place] [id number] Vocational Placement Specialist: Patti Swanson MD Comp Metabolic Profon 2022 Albumin [Mass/Vol] 4.6 g/dL Normal 3.5-5.2 [facility] Comment on above: Performed By: #### L ACTIC #### [facility] [address] [place], [place] [id number] Vocational Placement Specialist: Patti Swanson MD Albumin/Glob Ratio 1.4 Normal 1.0-2.5 [facility] Comment on above: Performed By: #### L ACTIC #### [facility] [address] [place], [place] [phone] Vocational Placement Specialist: Patti Swanson MD Alkaline Phos 139 U/L High 35-104 [facility] Comment on above: Performed By: #### L ACTIC #### [facility] [address] [place], [place] [phone] Vocational Placement Specialist: Patti Swanson MD ALT [Catalytic activity/Vol] 21 U/L Normal 5-33 [facility] Comment on above: Performed By: #### L ACTIC #### [facility] [address] [place], [place] [id number] Vocational Placement Specialist: Patti Swanson MD Anion gap [Moles/Vol] 11 mmol/L Normal 9-17 [facility] Comment on above: Performed By: #### L ACTIC #### [facility] [address] [place], [place] [phone] Vocational Placement Specialist: Patti Swanson MD AST [Catalytic activity/Vol] 18 U/L Normal <32 [facility] Comment on above: Performed By: #### L ACTIC #### [facility] [address] [place], [place] [id number] Vocational Placement Specialist: Patti Swanson MD Bilirubin [Mass/Vol] 0.2 mg/dL [place] 0.3-1.2 [facility] Comment on above: Performed By: #### L ACTIC #### [facility] [address] [place], [place] [phone] Vocational Placement Specialist: Patti Swanson MD BUN/CRE Ratio 16 Normal 9-20 [facility] Comment on above: Performed By: #### L ACTIC #### [facility] [address] [place], [place] [phone] Vocational Placement Specialist: Patti Swanson MD Calcium [Mass/Vol] 9.2 mg/dL Normal 8.6-10.4 [facility] Comment on above: Performed By: #### L ACTIC #### [facility] [address] [place], [place] [phone] Vocational Placement Specialist: Patti Swanson MD Chloride [Moles/Vol] 106 mmol/L Normal 98-107 [facility] Comment on above: Performed By: #### L ACTIC #### [facility] [address] [place], [place] [phone] Vocational Placement Specialist: Patti Swanson MD CO2 [Moles/Vol] 20 mmol/L Normal 20-31 [facility] Comment on above: Performed By: #### L ACTIC #### [facility] [address] [place] [address] Vocational Placement Specialist: Patti Swanson MD Creatinine [Mass/Vol] 2.0 mg/dL High 0.5-0.9 [facility] Comment on above: Performed By: #### L ACTIC #### [facility] [address] [place] [address] Vocational Placement Specialist: Patti Swanson MD GFR/1.73 sq M.predicted among non-blacks MDRD (S/P/Bld) [Vol rate/Area] 32 mL/min/{1.73_m2} [place] >60 [facility] Comment on above: Result Comment: These results are not intended for use in patients <18 years of age. eGFR results are calculated without a race factor using the 2020 CKD-EPI equation. Careful clinical correlation is recommended, particularly when comparing to results calculated using previous equations. The CKD-EPI equation is less accurate in patients with extremes of muscle mass, extra-renal metabolism of creatine, excessive creatine ingestion, or following therapy that affects renal tubular secretion. Performed By: #### L ACTIC #### [facility] [address] [place] [address] Vocational Placement Specialist: Patti Swanson MD Glucose [Mass/Vol] 199 mg/dL High 70-99 [facility] Comment on above: Performed By: #### L ACTIC #### [facility] [address] [place] [address] Vocational Placement Specialist: Patti Swanson MD Potassium [Moles/Vol] 4.5 mmol/L Normal 3.7-5.3 [facility] Comment on above: Performed By: #### L ACTIC #### [facility] [address] [place] [address] Vocational Placement Specialist: Patti Swanson MD Protein [Mass/Vol] 7.8 g/dL Normal 6.4-8.3 [facility] Comment on above: Performed By: #### L ACTIC #### [facility] [address] [place] [address] Vocational Placement Specialist: Patti Swanson MD Sodium [Moles/Vol] 137 mmol/L Normal 135-144 [facility] Comment on above: Performed By: #### L ACTIC #### [facility] [address] [place] [address] Vocational Placement Specialist: Patti Swanson MD Urea nitrogen [Mass/Vol] 31 mg/dL High - [facility] Comment on above: Performed By: #### L ACTIC #### [facility] [address] [place] [address] Vocational Placement Specialist: Patti Swanson MD HCG, ,Urineon 04-26 Beta HCG ( test) Ql (U) Negative Normal NEG [facility] Comment on above: Result Comment: Spec imens with hCG levels near the threshold of the test (25 mIU/mL) may give a negative or indeterminate result. In such cases, another test should be performed with a new specimen in 48-72 hours. If early is suspected clinically in this setting, correlation with quantitative serum b-hCG level is suggested. [facility] has confirmed the use of plasma for this test. This has not been cleared or approved by the [place]. Food and Drug Administration. The FDA has determined that such clearance is not necessary. Performed By: #### U AMIC, C #### [facility] [address] [place] [address] Vocational Placement Specialist: Patti Swanson MD Lactic Acidon 0 Lactate [Moles/Vol] 1.1 mmol/L Normal 0.5-2.2 [facility] Comment on above: Performed By: #### L ACTIC #### [facility] [address] [place] [address] Vocational Placement Specialist: Patti Swanson MD Lipaseon 4 Lipase [Catalytic activity/Vol] 6 U/L [place] 13-60 [facility] Comment on above: Performed By: #### L ACTIC #### [facility] [address] [place], [place] [id number] Vocational Placement Specialist: Patti Swanson MD Urinalysis w/ Microon 2022 Bacteria TRACE Abnormal NONE [facility] Comment on above: Performed By: #### U AMIC, UHCG #### [facility] [address] [place], [place] [id number] Vocational Placement Specialist: Patti Swanson MD Bilirubin, SemiQt,Ur Negative Normal NEG [facility] Comment on above: Performed By: #### U AMIC, UHCG #### [facility] [address] [place] [address] [place], [place] [id number] Vocational Placement Specialist: Patti Swanson MD Blood, Urine TRACE Abnormal NEG [facility] Comment on above: Performed By: #### U AMIC, UHCG #### [facility] [address] [place] [address] [place], [place] [id number] Vocational Placement Specialist: Patti Swanson MD Clarity (U) Clear Normal CLEAR [facility] Comment on above: Performed By: #### U AMIC, UHCG #### [address] [place], [place] 0845783 Vocational Placement Specialist: Patti Swanson MD Color (U) Yellow Normal YEL [facility] Comment on above: Performed By: #### U AMIC, UHCG #### [facility] [address] [place], [place] [id number] Vocational Placement Specialist: Patti Swanson MD Epithelial cells LM Ql (Urine sed) 2 TO 5 Normal 0-25 [facility] Comment on above: Performed By: #### U AMIC, UHCG #### [facility] [address] [place], [place] [phone] Vocational Placement Specialist: Patti Swanson MD Glucose Ql (U) Negative Normal NEG [facility] Comment on above: Performed By: #### U AMIC, UHCG #### [facility] [address] [place], [place] [phone] Vocational Placement Specialist: Patti Swanson MD Ketones Ql (U) Negative Normal NEG [facility] in [facility] Comment on above: Performed By: #### U AMIC, UHCG #### [facility] [address] [place], [place] [phone] Vocational Placement Specialist: Patti Swanson MD Leukocyte esterase Test strip Ql (U) Negative Normal NEG [facility] Comment on above: Performed By: #### U AMIC, CG #### [facility] [address] [place], [place] [id number] Vocational Placement Specialist: Patti Swanson MD Nitrite,Ur Negative Normal NEG [facility] Comment on above: Performed By: #### U AMIC, CG #### [facility] [address] [place] [address] [place], [place] [phone] Vocational Placement Specialist: Patti Swanson MD PH,Ur 6.0 Normal 5.0-9.0 [facility] Comment on above: Performed By: #### U AMIC, [facility] #### [facility] [address] [place] [address] [place] [address] Vocational Placement Specialist: Patti Swanson MD Protein Ql (U) Negative Normal NEG [facility] in [facility] Comment on above: Performed By: #### U AMIC, CG #### [facility] [address] [place], [place] 2683283 Vocational Placement Specialist: Patti Swanson MD Spec. Kitzmiller,Ur 1.020 Normal 1.010-1.02 0 [facility] Comment on above: Performed By: #### U AMIC, UHCG #### [facility] [address] [place], [place] [phone] Vocational Placement Specialist: Patti Swanson MD Urine RBC's None Normal 0-2 [facility] Comment on above: Performed By: #### U AMIC, CG #### [facility] [address] [place], [place] 5161583 Vocational Placement Specialist: Patti Swanson MD Urine WBC's None Normal 0-5 [facility] Comment on above: Performed By: #### U AMIC, CG #### [facility] [address] [place], [facility]83 Vocational Placement Specialist: Patti Swanson MD Urobilinogen,Ur Normal Normal 0.0-1.0 [facility] Comment on above: Performed By: #### U EFFIE [facility] #### [facility] [address] [place], [facility]83 Vocational Placement Specialist: Patti Swanson MD CBC with Diffon 04-20-2023 Abs. Basophil 0.07 k/uL Normal 0.00-0.20 [facility] Comment on above: Performed By: #### L ACTIC #### [facility] [address] [place], [place] 5693583 Vocational Placement Specialist: Patti Swanson MD Abs.Imm.Granulocyte 0.03 k/uL Normal 0.00-0.30 [facility] Comment on above: Performed By: #### L ACTIC #### [facility] [address] [place] [address] [place], [place] 8097483 Vocational Placement Specialist: Patti Swanson MD Abs.Neutrophil (Seg) 7.75 k/uL Normal 1.50-8.10 [facility] Comment on above: Performed By: #### L ACTIC #### [facility] [address] [place], [place] 8069083 Vocational Placement Specialist: Patti Swanson MD Basophils/100 WBC (Bld) 1 % Normal 0-2 [facility] Comment on above: Performed By: #### L ACTIC #### [facility] [address] [place], [facility]83 Vocational Placement Specialist: Patti Swanson MD Eosinophils (Bld) [#/Vol] 0.05 10*3/uL Normal 0.00-0.44 [facility] Comment on above: Performed By: #### L ACTIC #### [facility] [address] [place] [address] [place], [place] [phone] Vocational Placement Specialist: Patti Swanson MD Eosinophils/100 WBC (Bld) 1 % Normal 1-4 [facility] Comment on above: Performed By: #### L ACTIC #### [facility] [address] [place] [address] [place], [place] [phone] Vocational Placement Specialist: Patti Swanson MD Erythrocyte distribution width (RBC) [Ratio] 19.0 % High 11.8-14.4 [facility] Comment on above: Performed By: #### L ACTIC #### [address] [place], [place] [id number] Vocational Placement Specialist: Patti Swanson MD Hematocrit (Bld) [Volume fraction] 36.2 % Low 36.3-47.1 [facility] Comment on above: Performed By: #### L ACTIC #### [address] [place], [place] 9079683 Vocational Placement Specialist: Patti Swanson MD Hemoglobin (Bld) [Mass/Vol] 10.9 g/dL Low 11.9-15.1 [facility] Comment on above: Performed By: #### L ACTIC #### [address] [place], [place] 6291583 Vocational Placement Specialist: Patti Swanson MD Immature granulocytes/100 WBC (Bld) 0 % Normal 0 [facility] Comment on above: Performed By: #### L ACTIC #### [address] [place] [address] Vocational Placement Specialist: Patti Swanson MD Lymphocytes (Bld) [#/Vol] 1.67 10*3/uL Normal 1.10-3.70 [facility] Comment on above: Performed By: #### L ACTIC #### [facility] [address] [place], [place] [address] Vocational Placement Specialist: Patti Swanson MD Lymphocytes/100 WBC (Bld) 17 % Low 24-43 [facility] Comment on above: Performed By: #### L ACTIC #### [facility] [address] [place], [facility]83 Vocational Placement Specialist: Patti Swanson MD MCH (RBC) [Entitic mass] 28.6 pg Normal 25.2-33.5 [facility] Comment on above: Performed By: #### L ACTIC #### [address] [place], [facility]83 Vocational Placement Specialist: Patti Swanson MD MCHC (RBC) [Mass/Vol] 30.1 g/dL Normal 28.4-34.8 [facility] Comment on above: Performed By: #### L ACTIC #### [address] [place], [facility]83 Vocational Placement Specialist: Patti Swanson MD MCV (RBC) [Entitic vol] 95.0 fL Normal 82.6-102.9 [facility] Comment on above: Performed By: #### L ACTIC #### [address] [place], [place] [address] Vocational Placement Specialist: Patti Swanson MD Monocytes (Bld) [#/Vol] 0.50 10*3/uL Normal 0.10-1.20 [facility] Comment on above: Performed By: #### L ACTIC #### [address] [place], [place] 7850183 Vocational Placement Specialist: Patti Swanson MD Monocytes/100 WBC (Bld) 5 % Normal 3-12 [facility] Comment on above: Performed By: #### L ACTIC #### [facility] [address] [place], [place] [phone] Vocational Placement Specialist: Patti Swanson MD Neutrophil (Seg) 76 % High 36-65 [facility] Comment on above: Performed By: #### L ACTIC #### [facility] [address] [place], [place] 9105283 Vocational Placement Specialist: Patti Swanson MD NRBC Automated 0.0 per 100 WBC Normal 0.0 [facility] Comment on above: Performed By: #### L ACTIC #### [facility] [address] [place], [place] 8838083 Vocational Placement Specialist: Patti Swanson MD Platelet mean volume (Bld) [Entitic vol] 10.0 fL Normal 8.1-13.5 [facility] Comment on above: Performed By: #### L ACTIC #### [facility] [address] [place] [address] [place], [place] 9994683 Vocational Placement Specialist: Patti Swanson MD Platelets (Bld) [#/Vol] 381 10*3/uL Normal 138-453 [facility] Comment on above: Performed By: #### L ACTIC #### [address] [place], [place] 8048083 Vocational Placement Specialist: Patti Swanson MD RBC (Bld) [#/Vol] 3.81 10*6/uL [place] 3.95-5.11 [facility] Comment on above: Performed By: #### L ACTIC #### [facility] [address] [place], [place] [phone] Vocational Placement Specialist: Patti Swanson MD WBC (Bld) [#/Vol] 10.1 10*3/uL Normal 3.5-11.3 [facility] Comment on above: Performed By: #### L ACTIC #### [facility] [address] [place], [place] 4888883 Vocational Placement Specialist: Patti Swanson MD Comp Metabolic Profon 2022 Albumin [Mass/Vol] 4.6 g/dL Normal 3.5-5.2 [facility] Comment on above: Performed By: #### L ACTIC #### [facility] [address] [place], [place] [phone] Vocational Placement Specialist: Patti Swanson MD Albumin/Glob Ratio 1.6 Normal 1.0-2.5 [facility] Comment on above: Performed By: #### L ACTIC #### [facility] [address] [place], [place] 6508883 Vocational Placement Specialist: Patti Swanson MD Alkaline Phos 129 U/L High 35-104 [facility] Comment on above: Performed By: #### L ACTIC #### [facility] [address] [place], [place] 3595583 Vocational Placement Specialist: Patti Swanson MD ALT [Catalytic activity/Vol] 16 U/L Normal 5-33 [facility] Comment on above: Performed By: #### L ACTIC #### [facility] [address] [place], [place] 8945483 Vocational Placement Specialist: Patti Swanson MD Anion gap [Moles/Vol] 10 mmol/L Normal 9-17 [facility] Comment on above: Performed By: #### L ACTIC #### [facility] [address] [place], [place] 3110383 Vocational Placement Specialist: Patti Swanson MD AST [Catalytic activity/Vol] 19 U/L Normal <32 [facility] Comment on above: Performed By: #### L ACTIC #### [facility] [address] [place], [place] 0988983 Vocational Placement Specialist: Patti Swanson MD Bilirubin [Mass/Vol] 0.2 mg/dL [place] 0.3-1.2 [facility] Comment on above: Performed By: #### L ACTIC #### [facility] [address] [place], [place] 9183483 Vocational Placement Specialist: Patti Swanson MD BUN/CRE Ratio 13 Normal 9-20 [facility] Comment on above: Performed By: #### L ACTIC #### [facility] [address] [place], [place] 1347583 Vocational Placement Specialist: Patti Swanson MD Calcium [Mass/Vol] 9.3 mg/dL Normal 8.6-10.4 [facility] Comment on above: Performed By: #### L ACTIC #### [facility] [address] [place], [place] 1682483 Vocational Placement Specialist: Patti Swanson MD Chloride [Moles/Vol] 108 mmol/L High 98-107 [facility] Comment on above: Performed By: #### L ACTIC #### [facility] [address] [place], [place] 2463183 Vocational Placement Specialist: Patti Swanson MD CO2 [Moles/Vol] 21 mmol/L Normal 20-31 [facility] Comment on above: Performed By: #### L ACTIC #### [facility] [address] [place], [place] 7586283 Vocational Placement Specialist: Patti Swanson MD Creatinine [Mass/Vol] 1.8 mg/dL High 0.5-0.9 [facility] Comment on above: Performed By: #### L ACTIC #### [facility] [address] [place], [place] 5674283 Vocational Placement Specialist: Patti Swanson MD GFR/1.73 sq M.predicted among non-blacks MDRD (S/P/Bld) [Vol rate/Area] 37 mL/min/{1.73_m2} Low >60 [facility] Comment on above: Result Comment: These results are not intended for use in patients <18 years of age. eGFR results are calculated without a race factor using the 2020 CKD-EPI equation. Careful clinical correlation is recommended, particularly when comparing to results calculated using previous equations. The CKD-EPI equation is less accurate in patients with extremes of muscle mass, extra-renal metabolism of creatine, excessive creatine ingestion, or following therapy that affects renal tubular secretion. Performed By: #### L ACTIC #### [facility] [address] [place], [place] 7470383 Vocational Placement Specialist: Patti Swanson MD Glucose [Mass/Vol] 142 mg/dL High 70-99 [facility] Comment on above: Performed By: #### L ACTIC #### [facility] [address] [place], [place] 5620383 Vocational Placement Specialist: Patti Swanson MD Potassium [Moles/Vol] 4.5 mmol/L Normal 3.7-5.3 [facility] Comment on above: Performed By: #### L ACTIC #### [facility] [address] [place] [address] [place] [address] Vocational Placement Specialist: Patti Swanson MD Protein [Mass/Vol] 7.4 g/dL Normal 6.4-8.3 [facility] Comment on above: Performed By: #### L ACTIC #### [facility] [address] [place] [address] [place], [place] 6568883 Vocational Placement Specialist: Patti Swanson MD Sodium [Moles/Vol] 139 mmol/L Normal 135-144 [facility] Comment on above: Performed By: #### L ACTIC #### [facility] [address] [place], [place] 5332383 Vocational Placement Specialist: Patti Swanson MD Urea nitrogen [Mass/Vol] 24 mg/dL High 6-20 [facility] Comment on above: Performed By: #### L ACTIC #### [facility] [address] [place] [address] Vocational Placement Specialist: Patti Swanson MD HCG, ,Urineon 04-20 Beta HCG ( test) Ql (U) Negative Normal NEG [facility] Comment on above: Result Comment: Spec imens with hCG levels near the threshold of the test (25 mIU/mL) may give a negative or indeterminate result. In such cases, another test should be performed with a new specimen in 48-72 hours. If early is suspected clinically in this setting, correlation with quantitative serum b-hCG level is suggested. [facility] has confirmed the use of plasma for this test. This has not been cleared or approved by the [place]. Food and Drug Administration. The FDA has determined that such clearance is not necessary. Performed By: #### L ACTIC #### [facility] [address] [place] [address] Vocational Placement Specialist: Patti Swanson MD Lactic Acidon Lactate [Moles/Vol] 1.1 mmol/L Normal 0.5-2.2 [facility] Comment on above: Performed By: #### L ACTIC #### [facility] [address] [place] [address] Vocational Placement Specialist: Patti Swanson MD Lipaseon 8 Lipase [Catalytic activity/Vol] 5 U/L Low 13-60 [facility] Comment on above: Performed By: #### L ACTIC #### [facility] [address] [place] [address] Vocational Placement Specialist: Patti Swanson MD Urinalysis w/ Microon 0 Bacteria 1+ Abnormal NONE [facility] Comment on above: Performed By: #### L ACTIC #### [facility] [address] [place] [address] Vocational Placement Specialist: Patti Swanson MD Bilirubin, SemiQt,Ur Negative Normal NEG [facility] Comment on above: Performed By: #### L ACTIC #### [facility] [address] [place] [address] Vocational Placement Specialist: Patti Swanson MD Blood, Urine Negative Normal NEG [facility] Comment on above: Performed By: #### L ACTIC #### [facility] [address] [place], [place] 7739383 Vocational Placement Specialist: Patti Swanson MD Clarity (U) SLIGHTLY CLOUDY Abnormal CLEAR [facility] Comment on above: Performed By: #### L ACTIC #### [facility] [address] [place], [place] 3028883 Vocational Placement Specialist: Patti Swanson MD Color (U) Yellow Normal YEL [facility] Comment on above: Performed By: #### L ACTIC #### [facility] [address] [place], [place] 5297683 Vocational Placement Specialist: Patti Swanson MD Epithelial cells LM Ql (Urine sed) 10 TO 20 Normal 0-25 [facility] Comment on above: Performed By: #### L ACTIC #### [facility] [address] [place], [place] 6499983 Vocational Placement Specialist: Patti Swanson MD Glucose Ql (U) Negative Normal NEG [facility] Comment on above: Performed By: #### L ACTIC #### [facility] [address] [place] [address] [place], [place] 0497283 Vocational Placement Specialist: Patti Swanson MD Ketones Ql (U) Negative Normal NEG [facility] Comment on above: Performed By: #### L ACTIC #### [facility] [address] [place] [address] [place], [place] 9080983 Vocational Placement Specialist: Patti Swanson MD Leukocyte esterase Test strip Ql (U) Negative Normal NEG [facility] Comment on above: Performed By: #### L ACTIC #### [facility] [address] [place], [place] 9787483 Vocational Placement Specialist: Patti Swanson MD Nitrite,Ur Negative Normal NEG [facility] Comment on above: Performed By: #### L ACTIC #### [facility] [address] [place], [place] 9940383 Vocational Placement Specialist: Patti Swanson MD PH,Ur 6.0 Normal 5.0-9.0 [facility] Comment on above: Performed By: #### L ACTIC #### [address] [place], [place] 3161283 Vocational Placement Specialist: Patti Swanson MD Protein Ql (U) Negative Normal NEG [facility] Comment on above: Performed By: #### L ACTIC #### [facility] [address] [place] [address] [place] [address] Vocational Placement Specialist: Patti Swanson MD Spec. Kitzmiller,Ur 1.025 High 1.010-1.02 0 [facility] Comment on above: Performed By: #### L ACTIC #### [address] [place], [place] 9851183 Vocational Placement Specialist: Patti Swanson MD Urine RBC's 0 TO 2 Normal 0-2 [facility] Comment on above: Performed By: #### L ACTIC #### [address] [place] [address] Vocational Placement Specialist: Patti Swanson MD Urine WBC's 0 TO 2 Normal 0-5 [facility] Comment on above: Performed By: #### L ACTIC #### [address] [place], [place] 0390683 Vocational Placement Specialist: Patti Swanson MD Urobilinogen,Ur Normal Normal 0.0-1.0 [facility] Comment on above: Performed By: #### L ACTIC #### [address] [place], [place] 7177483 Vocational Placement Specialist: Patti Swanson MD Basic Metab w/rfx MGon 03-25 Anion gap [Moles/Vol] 12 mmol/L Normal 9-17 [facility] Comment on above: Performed By: #### L IP, CDP, BMPX ####[address] 4264783 Lab Director: Patti Swanson MD BUN/CRE Ratio 11 Normal 9-20 [facility] Comment on above: Performed By: #### L IP, CDP, BMPX ####[address] , [place] 6726283 lab Director: Patti Swanson MD Calcium [Mass/Vol] 9.6 mg/dL Normal 8.6-10.4 [facility] Comment on above: Performed By: #### L IP, CDP, BMPX ####[address] , [place] 9132383 lab Director: Patti Swanson MD Chloride [Moles/Vol] 106 mmol/L Normal 98-107 [facility] Comment on above: Performed By: #### L IP, CDP, BMPX ####[address] [place] [address] Lab Director: Patti Swanson MD CO2 [Moles/Vol] 22 mmol/L Normal 20-31 [facility] Comment on above: Performed By: #### L IP, CDP, BMPX ####[address] , [place] 8055783 Lab Director: Patti Swanson MD Creatinine [Mass/Vol] 2.3 mg/dL High 0.5-0.9 [facility] Comment on above: Performed By: #### L IP, CDP, BMPX ####[address] , [place] 9105183 lab Director: Patti Swanson MD GFR/1.73 sq M.predicted among non-blacks MDRD (S/P/Bld) [Vol rate/Area] 27 mL/min/{1.73_m2} Low >60 [facility] Comment on above: Result Comment: These results are not intended for use in patients <18 years of age. eGFR results are calculated without a race factor using the 2020 CKD-EPI equation. Careful clinical correlation is recommended, particularly when comparing to results calculated using previous equations. The CKD-EPI equation is less accurate in patients with extremes of muscle mass, extra-renal metabolism of creatine, excessive creatine ingestion, or following therapy that affects renal tubular secretion. Performed By: #### L IP, CDP, BMPX ####[address] [place] [address] Lab Director: Patti Swanson MD Glucose [Mass/Vol] 86 mg/dL Normal 70-99 [facility] Comment on above: Performed By: #### L IP, CDP, BMPX ####[address] , [place] [phone] Director: Patti Swanson MD Potassium [Moles/Vol] 4.5 mmol/L Normal 3.7-5.3 [facility] Comment on above: Performed By: #### L IP, CDP, BMPX ####[address] , [place] [phone] Director: Patti Swanson MD Sodium [Moles/Vol] 140 mmol/L Normal 135-144 [facility] Comment on above: Performed By: #### L IP, CDP, BMPX ####[address] [place] [address] Lab Director: Patti Swanson MD Urea nitrogen [Mass/Vol] 26 mg/dL High 6-20 [facility] Comment on above: Performed By: #### L IP, CDP, BMPX ####[address] [place] [address] Lab Director: Patti Swanson MD CBC with Diffon 03-25-2023 Abs. Basophil 0.10 k/uL Normal 0.00-0.20 [facility] Comment on above: Performed By: #### L IP, CDP, BMPX ####[address] [place] [address] Lab Director: Patti Swanson MD Abs.Imm.Granulocyte 0.00 k/uL Normal 0.00-0.30 [facility] Comment on above: Performed By: #### L IP, CDP, BMPX ####[address] , [place] [id number] Lab Director: Patti Swanson MD Abs.Neutrophil (Seg) 6.40 k/uL Normal 1.50-8.10 [facility] Comment on above: Performed By: #### L IP, CDP, BMPX ####[address] , [place] [id number] lab Director: Patti Swanson MD Basophils/100 WBC (Bld) 1 % Normal 0-2 [facility] Comment on above: Performed By: #### L IP, CDP, BMPX ####[address] [place] [address] Lab Director: Patti Swanson MD Eosinophils (Bld) [#/Vol] 0.00 10*3/uL Normal 0.00-0.44 [facility] Comment on above: Performed By: #### L IP, CDP, BMPX ####[address] , [place] 8198883 Lab Director: Patti Swanson MD Eosinophils/100 WBC (Bld) 0 % Low 1-4 [facility] Comment on above: Performed By: #### L IP, CDP, BMPX ####[address] [place] [address] Lab Director: Patti Swanson MD Immature granulocytes/100 WBC (Bld) 0 % Normal 0 [facility] Comment on above: Performed By: #### L IP, CDP, BMPX ####[address] [place] [address] Lab Director: Patti Swanson MD Lymphocytes (Bld) [#/Vol] 2.80 10*3/uL Normal 1.10-3.70 [facility] Comment on above: Performed By: #### L IP, CDP, BMPX ####[address] , [place] [id number] Lab Director: Patti Swanson MD Lymphocytes/100 WBC (Bld) 28 % Normal 24-43 [facility] Comment on above: Performed By: #### L IP, CDP, BMPX ####[address] , [facility]83 Lab Director: Patti Swanson MD Monocytes (Bld) [#/Vol] 0.70 10*3/uL Normal 0.10-1.20 [facility] Comment on above: Performed By: #### L IP, CDP, BMPX ####[address] , [facility]83[facility])[phone] Director: Patti Swanson MD Monocytes/100 WBC (Bld) 7 % Normal 3-12 [facility] Comment on above: Performed By: #### L IP, CDP, BMPX ####[address] [place] [address] Lab Director: Patti Swanson MD Morphology Tc (Bld) [Interp] ANISOCYTOSIS Normal [facility] Comment on above: Result Comment: PRES ENT Performed By: #### L IP, CDP, BMPX ####[address] [place] [address] Lab Director: Patti Swanson MD Neutrophil (Seg) 64 % Normal 36-65 [facility] Comment on above: Performed By: #### L IP, CDP, BMPX ####[address] , [place] [id number] Lab Director: Patti Swanson MD Erythrocyte distribution width (RBC) [Ratio] 20.5 % High 11.8-14.4 [facility] Comment on above: Performed By: #### L IP, CDP, BMPX ####[address] , [place] [id number] lab Director: Patti Swanson MD Hematocrit (Bld) [Volume fraction] 36.8 % Normal 36.3-47.1 [facility] Comment on above: Performed By: #### L IP, CDP, BMPX ####[address] , [place] [id number] lab Director: Patti Swnason MD Hemoglobin (Bld) [Mass/Vol] 11.4 g/dL Low 11.9-15.1 [facility] Comment on above: Performed By: #### L IP, CDP, BMPX ####[address] , [place] [phone] lab Director: Patti Swanson MD MCH (RBC) [Entitic mass] 28.0 pg Normal 25.2-33.5 [facility] Comment on above: Performed By: #### L IP, CDP, BMPX ####[address] , [place] [id number] lab Director: Patti Sawnson MD MCHC (RBC) [Mass/Vol] 31.0 g/dL Normal 28.4-34.8 [facility] Comment on above: Performed By: #### L IP, CDP, BMPX ####[address] , [facility]83 lab Director: Patti Swanson MD MCV (RBC) [Entitic vol] 90.4 fL Normal 82.6-102.9 [facility] Comment on above: Performed By: #### L IP, CDP, BMPX ####[address] [place] [address] lab Director: Patti Swanson MD NRBC Automated 0.0 per 100 WBC Normal 0.0 [facility] Comment on above: Performed By: #### L IP, CDP, BMPX ####[address] , [facility]83 [facility] Director: Patti Swanson MD Platelet mean volume (Bld) [Entitic vol] 10.1 fL Normal 8.1-13.5 [facility] Comment on above: Performed By: #### L IP, CDP, BMPX ####[address] , [facility]83 lab Director: Patti Swanson MD Platelets (Bld) [#/Vol] 371 10*3/uL Normal 138-453 [facility] Comment on above: Performed By: #### L IP, CDP, BMPX ####[address] , [place] [id number] lab Director: Patti Swanson MD RBC (Bld) [#/Vol] 4.07 10*6/uL Normal 3.95-5.11 [facility] Comment on above: Performed By: #### L IP, CDP, BMPX ####[address] , [place] [address] lab Director: Patti Swanson MD WBC (Bld) [#/Vol] 10.0 10*3/uL Normal 3.5-11.3 [facility] Comment on above: Performed By: #### L IP, CDP, BMPX ####[address] , [place] [address] lab Director: Patti Swanson MD CT ABDOMEN PELVIS WO CONTRAS Ton 03-25-2023 CT ABDOMEN PELVIS WO CONTRAST EXAMINATION: CT OF THE ABDOMEN AND PELVIS WITHOUT CONTRAST 03/25/2023 5:20 pm TECHNIQUE: CT of the abdomen and pelvis was performed without the administration of intravenous contrast. Multiplanar reformatted images are provided for review. Automated exposure control, iterative reconstruction, and/or weight based adjustment of the mA/kV was utilized to reduce the radiation dose to as low as reasonably achievable. COMPARISON: 01/09/2023. HISTORY: ORDERING SYSTEM PROVIDED HISTORY: right flank pain TECHNOLOGIST PROVIDED HISTORY: right flank pain Decision Support Exception - unselect if not a suspected or confirmed emergency medical condition->Emergency Medical Condition (MA) Is the patient ?->No FINDINGS: Lower Chest: There is no confluent consolidation or pleural effusion. Organs: The liver and adrenal glands are unremarkable. 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 No suspicious renal parenchymal lesion is noted. There is no ureteral stone or hydronephrosis. GI/Bowel: There is a large amount of stool throughout the colon. There is fecalization of the distal small bowel contents. A distal small bowel segment is dilated up to 4.2 cm. No abrupt transition caliber is noted. The stomach is unremarkable. Pelvis: The bladder is unremarkable. An IUD appears normally located. There is no free fluid. Peritoneum/Retroperitoneu m: No evidence of lymphadenopathy. Aorta is normal in caliber. No fat stranding, free fluid, free air or focal fluid collection is identified. Bones/Soft Tissues: No fracture or destructive bone lesion is identified. IMPRESSION: 1. Constipation with a large amount of stool in the colon and fecalization of the distal small bowel contents suggesting stasis. The small bowel is also mildly dilated which is favored to be related to constipation, but ileus is possible. Small-bowel obstruction is considered unlikely as no transition in caliber is noted. 2. No acute findings elsewhere in the abdomen or pelvis. Interpreted by: Uday Drake MD Signed by: Uday Drake MD 03/25/23 Final result Normal [facility] Lipaseon 03-25-2023 Lipase [Catalytic activity/Vol] 6 U/L Low 13-60 [facility] Comment on above: Performed By: #### L IP, CDP, BMPX ####[facility] [place] [address] Lab Director: Patti Swanson MD UA w/Reflex Cultureon 2022 Bilirubin, SemiQt,Ur Negative Normal NEG [facility] Comment on above: Performed By: #### L ACTIC #### [facility] [address] [place] [address] Vocational Placement Specialist: Patti Swanson MD Blood, Urine Negative Normal NEG [facility] Comment on above: Performed By: #### L ACTIC #### [facility] [address] [place], [place] [phone] Vocational Placement Specialist: Patti Swanson MD Clarity (U) Clear Normal CLEAR [facility] Comment on above: Performed By: #### L ACTIC #### [facility] [address] [place] [address] [place], [place] [phone] Vocational Placement Specialist: Patti Swanson MD Color (U) Yellow Normal YEL [facility] Comment on above: Performed By: #### L ACTIC #### [facility] [address] [place] [address] [place], [place] [phone] Vocational Placement Specialist: Patti Swanson MD Glucose Ql (U) 1+ mg/dL Abnormal NEG [facility] Comment on above: Performed By: #### L ACTIC #### [facility] [address] [place] [address] [place], [place] [phone] Vocational Placement Specialist: Patti Swanson MD Ketones Ql (U) Negative Normal NEG [facility] Comment on above: Performed By: #### L ACTIC #### [facility] [address] [place] [address] [place] [place], [place] [phone] Vocational Placement Specialist: Patti Swanson MD Leukocyte esterase Test strip Ql (U) Negative Normal NEG [facility] Comment on above: Performed By: #### L ACTIC #### [facility] [address] [place] [address] [place], [place] [phone] Vocational Placement Specialist: Patti Swanson MD Nitrite,Ur Negative Normal NEG [facility] Comment on above: Performed By: #### L ACTIC #### [facility] [address] [place] [address] [place], [place] [phone] Vocational Placement Specialist: Patti Swanson MD PH,Ur 6.0 Normal 5.0-9.0 [facility] Comment on above: Performed By: #### L ACTIC #### [facility] [address] [place], [place] [phone] Vocational Placement Specialist: Patti Swanson MD Protein Ql (U) Negative Normal NEG [facility] Comment on above: Performed By: #### L ACTIC #### [facility] [address] [place] [address] [place], [place] [phone] Vocational Placement Specialist: Patti Swanson MD Spec. K[place],Ur 1.020 Normal 1.010-1.02 0 [facility] Comment on above: Performed By: #### L ACTIC #### [facility] [address] [place] [address] [place], [place] [phone] Vocational Placement Specialist: Patti Swanson MD Urobilinogen,Ur Normal Normal 0.0-1.0 [facility] Comment on above: Performed By: #### L ACTIC #### [address] [place], [place] [phone] Vocational Placement Specialist: Patti Swanson MD Urinalysis,Microon 3 Bacteria TRACE Abnormal NONE [facility] Comment on above: Performed By: #### L ACTIC #### [address] [place], [place] [phone] Vocational Placement Specialist: Patti Swanson MD Epithelial cells LM Ql (Urine sed) 2 TO 5 Normal 0-25 [facility] Comment on above: Performed By: #### L ACTIC #### [facility] [address] [place] [address] [place], [place] [phone] Vocational Placement Specialist: Patti Swanson MD Mucus Strands TRACE Abnormal NONE [facility] Comment on above: Performed By: #### L ACTIC #### [address] [place], [place] [phone] Vocational Placement Specialist: Patti Swanson MD Urine RBC's 0 TO 2 Normal 0-2 [facility] Comment on above: Performed By: #### L ACTIC #### [facility] [address] [place] [address] Vocational Placement Specialist: Patti Swanson MD Urine WBC's None Normal 0-5 [facility] Comment on above: Performed By: #### L ACTIC #### [facility] [address] [place] [address] Vocational Placement Specialist: Patti Swanson MD A1C HEMOGLOBINon 03-01-2023 HbA1c (Bld) [Mass fraction] 7.2 % [facility] Other Glucose - FINGER STICKon Glucose [Mass/Vol] 102 mg/dL [facility] Other HbA1c (Bld) [Mass fraction]o n 03-01-2023 A1C HEMOGLOBIN [employer] Other Alanine aminotransferase [En zymatic activity/volume] in Serum or PlasmaOrdered By: Jaime Oliver on 01-15-2023 ALT [Catalytic activity/Vol] 20 U/L 7-52 [facility] Albumin [Mass/volume] in Ser um or Plasma by Bromocresol green (BCG) dye binding methoOrdered By: Jaime Oliver on 01-15-2023 Albumin BCG dye [Mass/Vol] 4.1 g/dL 3.5-5.7 [facility] Alkaline phosphatase [Enzyma tic activity/volume] in Serum or PlasmaOrdered By: Jaime Oliver on 01-15-2023 ALP [Catalytic activity/Vol] 144 U/L 34-104 [facility] Anisocytosis LM Ql (Bld)Orde red By: Jaime Oliver on 01-15-2023 Anisocytosis Ql (Bld) Slight Fir [facility] Aspartate aminotransferase [ Enzymatic activity/volume] in Serum or PlasmaOrdered By: Jaime Oliver on 01-15-2023 AST [Catalytic activity/Vol] 18 U/L 13-39 [facility] Automated erythrocytes count in urine sediment (number/area)Ordered By: Jaime Oliver on 01-15-2023 RBC Auto (Urine sed) [#/Area] 0-1 [HPF] 0-4 [facility] Automated leukocytes count i n urine sediment (number/area)Ordered By: Jaime Oliver on 01-15-2023 WBC Auto (Urine sed) [#/Area] 0-1 [HPF] 0-4 [facility] Basophils Auto (Bld) [#/Vol] Ordered By: Jaime Oliver on 01-15-2023 Basophils (Bld) [#/Vol] N/A [facility] Basophils/100 WBC Auto (Bld) Ordered By: Jaime Oliver on 01-15-2023 Basophils/100 WBC (Bld) N/A [facility] Bilirubin Test strip Ql (U)O rdered By: Jaime Oliver on 01-15-2023 Bilirubin Ql (U) Negative Negative [facility] Bilirubin.total [Mass/volume ] in Serum or PlasmaOrdered By: Jaime Oliver on 01-15-2023 Bilirubin [Mass/Vol] 0.2 mg/dL 0.3-1.0 [facility] Calcium [Mass/volume] in Ser um or PlasmaOrdered By: Jaime Oliver on 01-15-2023 Calcium [Mass/Vol] 8.7 mg/dL 8.6-10.3 [facility] Carbon dioxide, total [Moles /volume] in Serum or PlasmaOrdered By: Jaime Oliver on 01-15-2023 CO2 [Moles/Vol] 22.5 mmol/L 21.0-31.0 [facility] Chloride [Moles/volume] in S michael or PlasmaOrdered By: Jaime Oliver on 01-15-2023 Chloride [Moles/Vol] 110 mmol/L 98-107 [facility] Color Auto (U)Ordered By: Willy Oliver on 01-15-2023 Color (U) Yellow Yellow [facility] Creatinine [Mass/volume] in Serum or PlasmaOrdered By: Jaime Oliver on 01-15-2023 Creatinine [Mass/Vol] 2.20 mg/dL 0.60-1.[address] [facility] Eosinophils Auto (Bld) [#/Vo l]Ordered By: Jaime Oliver on 01-15-2023 Eosinophils (Bld) [#/Vol] N/A [facility] Eosinophils/100 WBC Auto (Bl d)Ordered By: Jaime Oliver on 01-15-2023 Eosinophils/100 WBC (Bld) N/A [facility] Eosinophils/100 WBC Manual c nt (Bld)Ordered By: Jaime Oliver on 01-15-2023 Eosinophils/100 WBC (Bld) 2 % 1-3 [facility] Erythrocyte distribution wid th Auto (RBC) [Ratio]Ordered By: Jaime Oliver on 01-15-2023 Erythrocyte distribution width (RBC) [Ratio] 15.9 % 11.9-15.3 [facility] Giant platelets/100 leukocyt es [Ratio] in Blood by Manual countOrdered By: Jaime Oliver on 01-15-2023 Giant platelets/100 WBC Manual cnt (Bld) [Ratio] 5 /100{WBC} [facility] Globulin Calc (S) [Mass/Vol] Ordered By: Jaime Oliver on 01-15-2023 Globulin (S) [Mass/Vol] 3.3 g/dL [facility] Glucose [Mass/volume] in Ser um or PlasmaOrdered By: Jaime Oliver on 01-15-2023 Glucose [Mass/Vol] 137 mg/dL 70-100 [facility] Comment on above: ADA recommended refe rence rangeRandom Glucose Reference Range is dependent on time and content of last meal. Glucose of more than 200 mg/dL in a nonstressed, ambulatory subject supports the diagnosis of Diabetes Mellitus. HCG ( test) IA.rapi d Ql (U)Ordered By: Jaime Oliver on 01-15-2023 HCG ( test) Ql (U) Negative [facility] Hematocrit Auto (Bld) [Volum e fraction]Ordered By: Jaime Oliver on 01-15-2023 Hematocrit (Bld) [Volume fraction] 28.6 % 34.0-46.4 [facility] Hemoglobin [Mass/volume] in BloodOrdered By: Jaime Oliver on 01-15-2023 Hemoglobin (Bld) [Mass/Vol] 9.1 g/dL 11.8-15.4 [facility] Hypochromia LM Ql (Bld)Order ed By: Jaime Oliver on 01-15-2023 Hypochromia Ql (Bld) Slight [facility] Ketones Auto test strip (U) [Mass/Vol]Ordered By: Jaime Oliver on 01-15-2023 Ketones (U) [Mass/Vol] Negative Negative [facility] - UrinalysisOrder ed By: Jaime Oliver on 01-15-2023 Hyaline casts LM Ql (Urine sed) 0-8 [LPF] 0-8 [facility] Leukocytes [#/volume] correc aarti for nucleated erythrocytes in Blood by Automated counOrdered By: Jaime Oliver on 01-15-2023 WBC corrected for nucl RBC Auto (Bld) [#/Vol] 8.4 10*3/uL 3.8-11.6 [facility] Lymphocytes Auto (Bld) [#/Vo l]Ordered By: Jaime Oliver on 01-15-2023 Lymphocytes (Bld) [#/Vol] N/A [facility] Lymphocytes/100 WBC Auto (Bl d)Ordered By: Jaime Oliver on 01-15-2023 Lymphocytes/100 WBC (Bld) N/A [facility] Lymphocytes/100 WBC Manual c nt (Bld)Ordered By: Jaime Oliver on 01-15-2023 Lymphocytes/100 WBC (Bld) 18 % 18-42 [facility] MCH Auto (RBC) [Entitic mass ]Ordered By: Jaime Oliver on 01-15-2023 MCH (RBC) [Entitic mass] 26.4 pg 24.7-34.3 [facility] MCHC Auto (RBC) [Mass/Vol]Or dered By: Jaime Oliver on 01-15-2023 MCHC (RBC) [Mass/Vol] 31.8 g/dL 32.0-35.[address] [facility] MCV Auto (RBC) [Entitic vol] Ordered By: Jaime Oliver on 01-15-2023 MCV (RBC) [Entitic vol] 83.2 fL 80-100 [facility] Microcytes LM Ql (Bld)Ordere d By: Jaime Oliver on 01-15-2023 Microcytes Ql (Bld) Slight [facility] Monocyte distribution width [Entitic volume] in Blood by AutomatedOrdered By: Jaime Oliver on 01-15-2023 Monocyte distribution width Auto (Bld) [Entitic vol] Test not performed % 0.00-20.00 [facility] Comment on above: Unable to calculate MDW because the Absolute Monocyte Count is <0.8. Monocytes Auto (Bld) [#/Vol] Ordered By: Jaime Oliver on 01-15-2023 Monocytes (Bld) [#/Vol] N/A [facility] Monocytes/100 WBC Auto (Bld) Ordered By: Jaime Oliver on 01-15-2023 Monocytes/100 WBC (Bld) N/A [facility] Monocytes/100 WBC Manual cnt (Bld)Ordered By: Jaime Oliver on 01-15-2023 Monocytes/100 WBC (Bld) 9 % 07-18 [facility] Neutrophils Auto (Bld) [#/Vo l]Ordered By: Jaime Oliver on 01-15-2023 Neutrophils (Bld) [#/Vol] N/A [facility] Neutrophils/100 WBC Auto (Bl d)Ordered By: Jaime Oliver on 01-15-2023 Neutrophils/100 WBC (Bld) N/A [facility] Nitrite Test strip Ql (U)Ord ered By: Jaime Oliver on 01-15-2023 Nitrite Ql (U) Negative Negative [facility] No Panel InformationOrdered By: Jaime Oliver on 01-15-2023 Estimated GFR (CKD-EPI) 29.070 mL/Min [facility] Creatinine Clearance (Chem N/A [facility] Nucleated erythrocytes [Pres ence] in Blood by Automated countOrdered By: Jaime Oliver on 01-15-2023 Nucleated RBC Auto Ql (Bld) N/A [facility] Ovalocyte detectionOrdered B y: Jaime Oliver on 01-15-2023 Ovalocytes LM Ql (Bld) [facility] Platelet adequacy [Presence] in Blood by Light microscopyOrdered By: Jaime Oliver on 01-15-2023 Platelets LM Ql (Bld) Increased Normal [facility] Platelet mean volume Auto (B ld) [Entitic vol]Ordered By: Jaime Oliver on 01-15-2023 Platelet mean volume (Bld) [Entitic vol] 8.2 fL 6.3-10.7 [facility] Platelet morphology finding [Identifier] in BloodOrdered By: Jaime Oliver on 01-15-2023 Platelet morphology finding Nom (Bld) Normal Normal [facility] Platelets Auto (Bld) [#/Vol] Ordered By: Jaime Oliver on 01-15-2023 Platelets (Bld) [#/Vol] 490 10*3/uL 150-450 [facility] Poikilocytosis [Presence] in Blood by Light microscopyOrdered By: Jaime Oliver on 01-15-2023 Poikilocytosis LM Ql (Bld) [facility] Polychromasia [Presence] in Blood by Light microscopyOrdered By: Jaime Oliver on 01-15-2023 Polychromasia LM Ql (Bld) [facility] Potassium [Moles/volume] in Serum or PlasmaOrdered By: Jaime Oliver on 01-15-2023 Potassium [Moles/Vol] 4.9 mmol/L 3.5-5.[address] [facility] Protein Auto test strip (U) [Mass/Vol]Ordered By: Jaime Oliver on 01-15-2023 Protein (U) [Mass/Vol] Negative Negative [facility] Protein [Mass/volume] in Ser um or PlasmaOrdered By: Jaime Oliver on 01-15-2023 Protein [Mass/Vol] 7.4 g/dL 6.4-8.9 [facility] RBC Auto (Bld) [#/Vol]Ordere d By: Jaime Oliver on 01-15-2023 RBC (Bld) [#/Vol] 3.44 10*6/uL 3.60-5.00 [facility] RBC morphologyOrdered By: Willy Oliver on 01-15-2023 RBC morphology finding Nom (Bld) N/A [facility] Schistocytes [Presence] in B lood by Light microscopyOrdered By: Jaime Oliver on 01-15-2023 Schistocytes LM Ql (Bld) Slight [facility] Segmented neutrophils/100 WB C Manual cnt (Bld)Ordered By: Jaime Oliver on 01-15-2023 Segmented neutrophils/100 WBC (Bld) 72 % 50-70 [facility] Serum or plasma albumin/glob ulin mass ratioOrdered By: Jaime Oliver on 01-15-2023 Albumin/Globulin [Mass ratio] 1.2 {ratio} [facility] Serum or plasma anion gap de terminationOrdered By: Jaime Oliver on 01-15-2023 Anion gap [Moles/Vol] 10.4 mmol/L 6.0-15.0 [facility] Sodium [Moles/volume] in Ser um or PlasmaOrdered By: Jaime Oliver on 01-15-2023 Sodium [Moles/Vol] 138 mmol/L 136-145 [facility] Specific gravity Auto test s trip (U) [Rel density]Ordered By: Jaime Oliver on 01-15-2023 Specific gravity (U) [Rel density] 1.012 1.001-1.03 0 [facility] Squamous epithelial cells de tection in urine sediment by light microscopyOrdered By: Jaime Oliver on 01-15-2023 Epithelial cells.squamous LM Ql (Urine sed) 0-1 [HPF] 0-2 [facility] Target cellsOrdered By: Kirit Oliver on 01-15-2023 Target cells LM Ql (Bld) Slight [facility] Urea nitrogen [Mass/volume] in Serum or PlasmaOrdered By: Jaime Oliver on 01-15-2023 Urea nitrogen [Mass/Vol] 24 mg/dL 7-25 [facility] Urine bacteria detection by automated methodOrdered By: Jaime Oliver on 01-15-2023 Bacteria Auto Ql (U) None seen None Seen [facility] Urine clarity by refractomet ry automatedOrdered By: Jaime Oliver on 01-15-2023 Clarity Refractometry automated (U) Clear Clear [facility] Urine glucose measurement by automated test strip (mass/volume)Ordered By: Jaime Oliver on 01-15-2023 Glucose Auto test strip (U) [Mass/Vol] Normal mg/dL Normal [facility] Urine hemoglobin detection b y automated test stripOrdered By: Jaime Oliver on 01-15-2023 Hemoglobin Auto test strip Ql (U) Negative Negative [facility] Urine leukocyte esterase det ection by automated test stripOrdered By: Jaime Oliver on 01-15-2023 Leukocyte esterase Auto test strip Ql (U) 1+ Negative [facility] Urobilinogen Auto test strip (U) [Mass/Vol]Ordered By: Jaime Oliver on 01-15-2023 Urobilinogen (U) [Mass/Vol] Normal mg/dL Normal [facility] WBC Auto (Bld) [#/Vol]Ordere d By: Jaime Oliver on 01-15-2023 WBC (Bld) [#/Vol] 8.4 10*3/uL 3.8-11.6 [facility] pH Auto test strip (U)Ordere d By: Jaime Oliver on 01-15-2023 pH (U) 5.5 [pH] 5.0-9.0 [facility] CBC with Auto Differentialon 12-04-2022 Basophils (Bld) [#/Vol] 0.07 10*3/uL [facility] Basophils/100 WBC (Bld) 1 % 0 - 2 % [facility] Eosinophils (Bld) [#/Vol] [facility] Eosinophils/100 WBC (Bld) 0 % Low 1 - 4 % [facility] Erythrocyte distribution width (RBC) [Ratio] 15.5 % High 11.8 - 14.4 % [facility] Hematocrit (Bld) [Volume fraction] 30.1 % Low 36.3 - 47.1 % [facility] Hemoglobin (Bld) [Mass/Vol] 9.3 g/dL Low 11.9 - 15.1 g/dL [facility] Immature granulocytes (Bld) [#/Vol] 0.07 10*3/uL [facility] Immature granulocytes/100 WBC (Bld) 1 % High 0 [facility] Interpretation and review of laboratory results Abnormal [facility] Lymphocytes/100 WBC (Bld) 11 % Low 24 - 43 % [facility] Lymphocytes/100 WBC (Bld) 1.58 % [facility] MCH (RBC) [Entitic mass] 27.3 pg 25.2 - 33.5 pg [facility] MCHC (RBC) [Mass/Vol] 30.9 g/dL 28.4 - 34.8 g/dL [facility] MCV (RBC) [Entitic vol] 88.3 fL 82.6 - 102.9 fL [facility] Monocytes/100 WBC (Bld) 9 % 3 - 12 % [facility] Monocytes/100 WBC (Bld) 1.22 % High [facility] Neutrophils/100 WBC (Bld) 78 % High 36 - 65 % [facility] Nucleated RBC/100 WBC (Bld) [Ratio] 0.0 % 0.0 per 100 WBC [facility] Platelet mean volume (Bld) [Entitic vol] 9.5 fL 8.1 - 13.5 fL [facility] Platelets (Bld) [#/Vol] 486 10*3/uL High [facility] RBC (Bld) [#/Vol] 3.41 10*6/uL Low 3.95 - 5.11 m/uL [facility] Segmented neutrophils/100 WBC (Bld) 11.37 % High [facility] WBC other (Bld) [#/Vol] 14.3 High [facility] CMPon 12-04-2022 Albumin [Mass/Vol] 4.2 g/dL 3.5 - 5.2 g/dL [facility] Albumin/Globulin [Mass ratio] 1.4 {ratio} 1.0 - 2.5 [facility] ALP [Catalytic activity/Vol] 159 U/L High 35 - 104 U/L [facility] ALT [Catalytic activity/Vol] 9 U/L 5 - 33 U/L [facility] Anion gap [Moles/Vol] 10 mmol/L 9 - 17 mmol/L [facility] AST [Catalytic activity/Vol] 14 U/L NINF - 32 U/L [facility] Bilirubin [Mass/Vol] mg/dL Low 0.3 - 1 .2 mg/dL [facility] Calcium [Mass/Vol] 8.5 mg/dL Low 8.6 - 10. 4 mg/dL [facility] Chloride [Moles/Vol] 106 mmol/L 98 - 10 7 mmol/L [facility] CO2 [Moles/Vol] 20 mmol/L 20 - 31 mmol/L [facility] Creatinine [Mass/Vol] 2.10 mg/dL High 0.50 - 0.90 mg/dL [facility] GFR/1.73 sq M.predicted MDRD (S/P/Bld) [Vol rate/Area] 31 mL/min/{1.73_m2} Low - PINF [facility] Comment on above: These results are not intended for use in patients <18 years of age. eGFR results are calculated without a race factor using the 2020 CKD-EPI equation. Careful clinical correlation is recommended, particularly when comparing to results calculated using previous equations. The CKD-EPI equation is less accurate in patients with extremes of muscle mass, extra-renal metabolism of creatine, excessive creatine ingestion, or following therapy that affects renal tubular secretion. Glucose [Mass/Vol] 91 mg/dL 70 - 99 mg/dL [facility] Interpretation and review of laboratory results Abnormal [facility] Potassium [Moles/Vol] 4.9 mmol/L 3.7 - 5.3 mmol/L [facility] Protein [Mass/Vol] 7.3 g/dL 6.4 - 8.3 g/dL [facility] Sodium [Moles/Vol] 136 mmol/L 135 - 144 mmol/L [facility] Urea nitrogen [Mass/Vol] 28 mg/dL High 6 - 20 mg/dL [facility] Urea nitrogen/Creatinine [Mass ratio] 13 mg/mg 9 - 20 [facility] CARDIAC LARRY ADMITon 023 CK [Catalytic activity/Vol] 113 U/L Normal 26-192 [facility] Comment on above: Performed By: #### P RBC #### [facility] [address], [place] [address] Dr. Laila Feliciano CK.MB [Mass/Vol] 0.53 ng/mL Normal <=3.60 [facility] Comment on above: Performed By: #### P RBC #### [facility] [address] [place] [address] Dr. Laila Feliciano HSTROP 6.6 pg/mL Normal 4.0-51.3 [facility] Comment on above: Result Comment: CUT- OFF POINTS HAVE BEEN ESTABLISHED BASED ON THE FOURTH UNIVERSAL DEFINITIONS OF MYOCARDIAL INFARCTION. THE UPPER REFERENCE LIMIT (URL) OF TROPONIN, DEFINED THE 99TH PERCENTILE OF cTnI DISTRIBUTION IN A REFERENCE POPULATION, HAS BEEN CONFIRMED THE DECISION THRESHOLD FOR HI DIAGNOSIS. Performed By: #### P RBC #### [facility] [address] [place] [address] Dr. Laila Feliciano KIRIT 26 ng/mL Normal 9-82 [facility] Comment on above: Performed By: #### P RBC #### [facility] [address] [place] [address] Dr. Laila Feliciano CBC AUTO DIFFon 11-02-2022 BASO # 0.0 103/ul Normal 0.0-0.1 [facility] Comment on above: Performed By: #### P RBC #### [facility] [address] [place] [address] Dr. Laila Feliciano Basophils/100 WBC (Bld) 0.4 % Normal 0.2-2.0 [facility] Comment on above: Performed By: #### P RBC #### [facility] [address] [place] [address] Dr. Laila Feliciano EO # 0.0 103/ul Normal 0.0-0.7 [facility] Comment on above: Performed By: #### P RBC #### [facility] [address] [place] [address] Dr. Laila Feliciano Eosinophils/100 WBC (Bld) 0.1 % Critically low 0.9-7.0 [facility] Comment on above: Performed By: #### P RBC #### [facility] [address] [place] [address] Dr. Laila Feliciano Erythrocyte distribution width (RBC) [Ratio] 15.8 % Critically high 11.0-15.0 [facility] Comment on above: Performed By: #### P RBC #### [facility] [address] [place] [address] Dr. Laila Feliciano Hematocrit (Bld) [Volume fraction] 25.0 % Critically low 36.0-48.0 [facility] Comment on above: Performed By: #### P RBC #### [facility] [address] [place] [address] Dr. Laila Feliciano Hemoglobin (Bld) [Mass/Vol] 7.7 g/dL Critically low 12.0-16.0 [facility] Comment on above: Performed By: #### P RBC #### [facility] [address] [place] [address] Dr. Laila Feliciano IG # 0.04 10e3/ul Critically high 0.00-0.03 [facility] Comment on above: Performed By: #### P RBC #### [facility] [address] [place] [address] Dr. Laila Feliciano IG % 0.4 % Normal 0.0-0.5 [facility] Comment on above: Performed By: #### P RBC #### [facility] [address] [place] [address] Dr. Laila Feliciano LYMPH # 2.6 103/ul Normal 1.2-3.8 [facility] Comment on above: Performed By: #### P RBC #### [facility] [address] [place] [address] Dr. Laila Feliciano Lymphocytes/100 WBC (Bld) 27.7 % Normal 20.5-60.0 [facility] Comment on above: Performed By: #### P RBC #### [facility] [address] [place] [address] Dr. Laila Feliciano MANUAL DIFF REQ NO Normal [facility] [place] Comment on above: Performed By: #### P RBC #### [facility] [address] [place] [address] Dr. Laila Feliciano MCH (RBC) [Entitic mass] 29.4 pg Normal 26.7-34.0 [facility] Comment on above: Performed By: #### P RBC #### [facility] [address] [place] [address] Dr. Laila Feliciano MCHC (RBC) [Mass/Vol] 30.8 g/dL Normal 29.9-35.2 [facility] Comment on above: Performed By: #### P RBC #### [facility] [address] [place] [address] Dr. Laila Feliciano MCV (RBC) [Entitic vol] 95.4 fL Normal 81.0-99.0 [facility] Comment on above: Performed By: #### P RBC #### [facility] [address] [place] [address] Dr. Laila Feliciano MONO # 0.7 103/ul Normal 0.3-0.8 [facility] Comment on above: Performed By: #### P RBC #### [facility] [address] [place] [address] Dr. Laila Feliciano Monocytes/100 WBC (Bld) 7.4 % Normal 1.7-12.0 [facility] Comment on above: Performed By: #### P RBC #### [facility] [address] [place] [address] Dr. Laila Feliciano NEUT # 6.0 103/ul Normal 1.4-6.5 [facility] Comment on above: Performed By: #### P RBC #### [facility] [address] [place] [address] Dr. Laila Feliciano Neutrophils/100 WBC (Bld) 64.0 % Normal 43.0-75.0 [facility] Comment on above: Performed By: #### P RBC #### [facility] [address] [place] [address] Dr. Laila Feliciano Platelet mean volume (Bld) [Entitic vol] 10.3 fL Normal 9.5-13.5 [facility] Comment on above: Performed By: #### P RBC #### [facility] [address] [place] [address] Dr. Laila Feliciano PLT 408 103/ul Normal 150-450 [facility] Comment on above: Performed By: #### P RBC #### [facility] [address] [place] [address] Dr. Laila Feliciano RBC 2.62 106/ul Critically low 4.20-5.40 [facility] [place] Comment on above: Performed By: #### P RBC #### [facility] [address], [place] [address] Dr. Laila Feliciano WBC 9.4 103/ul Normal 4.0-11.0 [facility] Comment on above: Performed By: #### P RBC #### [facility] [address], [place] [address] HEAD WO CONon 11-02-2022 CT HEAD WO CON EXAM: CT scan of the head without contrast. Dose reduction technique used: Automated exposure control and/or adjustment of the mA and/or kV according to patient size and/or use of iterative reconstruction technique. REASON FOR EXAM: WEAKNESS COMPARISON: CT scan dated 07/09/2022 FINDINGS: No intracranial hemorrhage, mass effect, midline shift, fractures or evidence of acute ischemic infarct. No hydrocephalus. Paranasal sinuses and mastoid air cells are clear. Remainder unremarkable. IMPRESSION: Negative head CT. Electronically authenticated by: MARKY SHIELDS Date: 2022-11-02 07:51 Normal [facility] CTA NECK WO W CONon 11-03-19 23 CTA NECK WO W CON CTA HEAD AND NECK WI TH CONTRAST, 11/02/2022. HISTORY: Acute onset of headache and left-sided weakness. COMPARISON: CT head, 11/02/2022. TECHNIQUE: Postcontrast axial CTA images obtained through the head and neck. Reconstructed MIP images obtained in the axial, sagittal, and coronal planes. Carotid stenosis measured according to NASCET criteria. Dose reduction techniques were achieved by using automated exposure control and/or adjustment of mA and/or kV according to patient size and/or use of iterative reconstruction technique. FINDINGS: CTA BRAIN: Distal internal carotid arteries normal. Anterior cerebral arteries normal. Middle cerebral arteries normal. Right vertebral artery is dominant. Left vertebral artery is hypoplastic and predominantly terminates as the left PICA. This is normal variation. Posterior inferior cerebellar arteries are patent bilaterally. Basilar artery normal. Cerebellar arteries are normal in caliber. Posterior cerebral arteries are normal in caliber. No aneurysm. No vascular malformation. Venous sinuses are patent. CTA NECK: Common carotid arteries normal in caliber. Carotid bifurcations are normal in caliber. Internal carotid arteries normal. No carotid artery stenosis. Right vertebral artery is dominant. Right vertebral artery is patent. Left vertebral artery is hypoplastic. No vertebral artery stenosis. No dissection. Large nodule in the left lobe of the thyroid measures 2.5 cm. No lymphadenopathy in the neck. Lung apices are clear. Osseous structures unremarkable. IMPRESSION: 1. Normal CTA of the brain. 2. Normal CTA of the neck. 3. Large nodule in the left lobe of the thyroid measuring 2.5 cm. Recommend follow up thyroid ultrasound. Electronically authenticated by: ANA STRANGE Date: 2022-11-02 12:32 Normal [facility] ETHANOL (BLD ALC)on 11-03-19 23 ALC NOTE NOTE: 80 mg/dl is e legal limit for a blood alcohol level Normal [facility] Comment on above: Performed By: #### T NS #### [facility] [address] [place] [address] [address] Laila Feliciano Ethanol [Mass/Vol] mg/dL Normal [facility] Comment on above: Performed By: #### T NS #### [facility] [address] [place] [address] [address] Laila Feliciano POINT OF CARE GLUCOSEon 10-06 Glucose [Mass/Vol] 78 mg/dL Normal 74-106 [facility] Comment on above: Performed By: #### P OCGLUC #### [facility] [address] [place] [address] [address] Lalia Feliciano PREG HCG QUALon 11-02-2022 , QUAL Negative Normal NEGATIVE [facility] Comment on above: Performed By: #### T NS #### [facility] [address] [place] [address] [address] Laila Feliciano PROF 14(COMP METB)on 023 Albumin [Mass/Vol] 3.2 g/dL Critically low 3.4-5.0 [facility] Comment on above: Performed By: #### P RBC #### [facility] [address] [place] [address] Dr. Laila Feliciano Albumin/Globulin [Mass ratio] 1.0 {ratio} Normal [facility] Comment on above: Performed By: #### P RBC #### [facility] [address] [place] [address] [address] Laila Feliciano ALP [Catalytic activity/Vol] 148 U/L Critically high 46-116 [facility] Comment on above: Performed By: #### P RBC #### [facility] [address] [place] [address] Dr. Laila Feliciano ALT [Catalytic activity/Vol] 29 U/L Normal 14-59 [facility] Comment on above: Performed By: #### P RBC #### [facility] [address] [place] [address] [address] Laila Feliciano Anion gap [Moles/Vol] 11.4 mmol/L Normal [facility] Comment on above: Performed By: #### P RBC #### [facility] [address] [place] [address] Dr. Laila Feliciano AST [Catalytic activity/Vol] 21 U/L Normal 15-37 [facility] Comment on above: Performed By: #### P RBC #### [facility] [address] [place] [address] Dr. Laila Feliciano Bilirubin [Mass/Vol] 0.1 mg/dL Critically low 0.2-1.0 [facility] Comment on above: Performed By: #### P RBC #### [facility] [address] [place] [address] Dr. Laila Feliciano Calcium [Mass/Vol] 7.9 mg/dL Critically low 8.5-10.1 [facility] Comment on above: Performed By: #### P RBC #### [facility] [address] [place] [address] Dr. Laila Feliciano Chloride [Moles/Vol] 108 mmol/L Critically high 98-107 [facility] Comment on above: Performed By: #### P RBC #### [facility] [address] [place] [address] Dr. Laila Feliciano CO2 [Moles/Vol] 24.8 mmol/L Normal 21.0-32.[address] [facility] Comment on above: Performed By: #### P RBC #### [facility] [address] [place] [address] Dr. Laila Feliciano Creatinine [Mass/Vol] 1.74 mg/dL Critically high 0.55-1.02 [facility] Comment on above: Performed By: #### P RBC #### [facility] [address] [place] [address] [address] Laila Feliciano EGFR-AF PAKISTANI 40 mL/min/1.73m2 Critically low >=60 [facility] Comment on above: Performed By: #### P RBC #### [facility] [address] [place] [address] [address] Laila Feliciano EGFR-NON AF PAKISTANI 33 mL/min/1.73m2 Critically low >=60 [facility] Comment on above: Performed By: #### P RBC #### [facility] [address] [place] [address] Dr. Laila Feliciano Globulin (S) [Mass/Vol] 3.3 g/dL Normal [facility] Comment on above: Performed By: #### P RBC #### [facility] [address] [place] [address] Dr. Laila Feliciano Glucose [Mass/Vol] 103 mg/dL Normal 74-106 [facility] Comment on above: Performed By: #### P RBC #### [facility] [address] [place] [address] Dr. Laila Feliciano Potassium [Moles/Vol] 4.2 mmol/L Normal 3.5-5.1 [facility] Comment on above: Performed By: #### P RBC #### [facility] [address] [place] [address] [address] Laila Feliciano Protein [Mass/Vol] 6.5 g/dL Normal 6.4-8.2 [facility] Comment on above: Performed By: #### P RBC #### [facility] [address] [place] [address] Dr. Laila Feliciano Sodium [Moles/Vol] 140 mmol/L Normal 136-145 [facility] Comment on above: Performed By: #### P RBC #### [facility] [address] [place] [address] Dr. Laila Feliciano Urea nitrogen [Mass/Vol] 17.0 mg/dL Normal 7.0-18.0 [facility] Comment on above: Performed By: #### P RBC #### [facility] [address] [place] [address] Dr. Laila Feliciano Urea nitrogen/Creatinine [Mass ratio] 9.8 mg/mg Normal [facility] Comment on above: Performed By: #### P RBC #### [facility] [address] [id number] Laila Feliciano TYPE AND SCREENon 11-02-2022 TYPE AND SCREEN Negative Normal [facility] Comment on above: Performed By: #### T NS #### [facility] [address] [place] [address] [address] Laila Feliciano CNPNon 10-05-2022 CNPN Normal [facility] CBC AND DIFFERENTIALon 08-29 % AUTOMATED IMMATURE GRAN 0.4 % Normal 0.0 - 0.9 [facility] Comment on above: Result Comment: Aileen ture Granulocyte Count (IG) includes promyelocytes, myelocytes and metamyelocytes but does not include bands. Percent differential counts (%) should be interpreted in the context of the absolute cell counts (cells/L). Performed By: #### C BCDF #### [place] [address] Basophils (Bld) [#/Vol] 0.06 10*3/uL Normal 0.00 - 0.10 [facility] Comment on above: Performed By: #### C BCDF #### [place] [id number] Basophils/100 WBC (Bld) 0.5 % Normal 0.0 - 2.0 [facility] Comment on above: Performed By: #### C BCDF #### [place] [id number] Erythrocyte distribution width (RBC) [Ratio] 15.6 % High 11.5 - 14.5 [facility] Comment on above: Performed By: #### C BCDF #### [place] [id number] Hematocrit (Bld) [Volume fraction] 31.7 % Low 36.0 - 46.0 [facility] Comment on above: Performed By: #### C BCDF #### [address] [address] Hemoglobin (Bld) [Mass/Vol] 9.9 g/dL Low 12.0 - 16.0 [facility] Comment on above: Performed By: #### C BCDF #### [address] [address] Lymphocytes (Bld) [#/Vol] 1.69 10*3/uL Normal 1.20 - 4.80 [facility] Comment on above: Performed By: #### C BCDF #### [address] [address] Lymphocytes/100 WBC (Bld) 13.7 % Normal 13.0 - 44.0 [facility] Comment on above: Performed By: #### C BCDF #### [address] [address] MCHC (RBC) [Mass/Vol] 31.2 g/dL Low 32.0 - 36.0 [facility] Comment on above: Performed By: #### C BCDF #### [address] [address] MCV (RBC) [Entitic vol] 94 fL Normal 80 - 100 [facility] Comment on above: Performed By: #### C BCDF #### [address] [address] Monocytes (Bld) [#/Vol] 0.80 10*3/uL Normal 0.10 - 1.00 [facility] Comment on above: Performed By: #### C BCDF #### [address] [address] Monocytes/100 WBC (Bld) 6.5 % Normal 2.0 - 10.0 [facility] Comment on above: Performed By: #### C BCDF #### [address] [address] Neutrophils (Bld) [#/Vol] 9.75 10*3/uL High 1.20 - 7.70 [facility] Comment on above: Result Comment: Perc ent differential counts (%) should be interpreted in the context of the absolute cell counts (cells/L). Performed By: #### C BCDF #### [address] [address] Neutrophils/100 WBC (Bld) 78.9 % Normal 40.0 - 80.0 [facility] Comment on above: Performed By: #### C BCDF #### [address] [address] Platelets (Bld) [#/Vol] 422 10*3/uL Normal 150 - 450 [facility] Comment on above: Performed By: #### C BCDF #### [address] [address] RBC 3.37 x10E12/L Low 4.00 - 5.20 [facility] Comment on above: Performed By: #### C BCDF #### [address] [address] WBC (Bld) [#/Vol] 12.4 10*3/uL High 4.4 - 11.3 [facility] Comment on above: Performed By: #### C BCDF #### [address] [address] COMPREHENSIVE PANELon 2022 Albumin [Mass/Vol] 3.9 g/dL Normal 3.4 - 5.0 [facility] Comment on above: Performed By: #### C MP #### [address] [address] ALP [Catalytic activity/Vol] 128 U/L High 33 - 110 [facility] Comment on above: Performed By: #### C MP #### [address] [address] ALT [Catalytic activity/Vol] 13 U/L Normal 7 - 45 [facility] Comment on above: Result Comment: Vanessa ents treated with Sulfasalazine may generate falsely decreased results for ALT. Performed By: #### C MP #### [address] [address] Anion gap [Moles/Vol] 12 mmol/L Normal 10 - 20 [facility] Comment on above: Performed By: #### C MP #### [address] [address] AST [Catalytic activity/Vol] 16 U/L Normal 9 - 39 [facility] Comment on above: Performed By: #### C MP #### [address] [address] Bilirubin [Mass/Vol] 0.2 mg/dL Normal 0.0 - 1.2 [facility] Comment on above: Performed By: #### C MP #### [address] [address] Calcium [Mass/Vol] 8.9 mg/dL Normal 8.6 - 10.3 [facility] Comment on above: Performed By: #### C MP #### [address] [address] Chloride [Moles/Vol] 109 mmol/L High 98 - 107 [facility] Comment on above: Performed By: #### C MP #### [address] [address] Creatinine [Mass/Vol] 1.59 mg/dL High 0.50 - 1.05 [facility] Comment on above: Performed By: #### C MP #### [address] [address] GFR/1.73 sq M.predicted among non-blacks MDRD (S/P/Bld) [Vol rate/Area] 43 mL/min/{1.73_m2} Abnormal >90 [facility] Comment on above: Result Comment: CALC ULATIONS OF ESTIMATED GFR ARE PERFORMED USING THE 2020 CKD-EPI STUDY REFIT EQUATION WITHOUT THE RACE VARIABLE FOR THE IDMS-TRACEABLE CREATININE METHODS. https://jasn.asnjournals.org/content/early/ASN.87722 [address] Performed By: #### C MP #### [address] [address] Glucose [Mass/Vol] 169 mg/dL High 74 - 99 [facility] Comment on above: Performed By: #### C MP #### [address] [address] HCO3 (Bld) [Moles/Vol] 22 mmol/L Normal 21 - 32 [facility] Comment on above: Performed By: #### C MP #### [address] [address] Potassium [Moles/Vol] 4.2 mmol/L Normal 3.5 - 5.3 [facility] Comment on above: Performed By: #### C MP #### [address] [address] Protein [Mass/Vol] 6.8 g/dL Normal 6.4 - 8.2 [facility] Comment on above: Performed By: #### C MP #### [address] [address] Sodium [Moles/Vol] 139 mmol/L Normal 136 - 145 [facility] Comment on above: Performed By: #### C MP #### [address] [address] Urea nitrogen [Mass/Vol] 21 mg/dL Normal 6 - 23 [facility] Comment on above: Performed By: #### C MP #### [address] [address] [address] ABDOMEN AND PELVIS WO CON TRASTon 08-29-2022 CT ABDOMEN AND PELVIS WO CONTRAST Patient Name: PRITESH RAZA STUDY: CT ABDOMEN AND PELVIS WO CONTRAST; 08/29/2022 6:26 pm INDICATION: right flank pain . COMPARISON: None ACCESSION NUMBER(S): [id number] ORDERING CLINICIAN: PAULA CERNA TECHNIQUE: CT of the abdomen and pelvis was performed. Contiguous axial images were obtained at 3 mm slice thickness through the abdomen and pelvis. Coronal and sagittal reconstructions at 3 mm slice thickness were performed. No intravenous contrast was administered; positive oral contrast was given. FINDINGS: Please note that the evaluation of vessels, lymph nodes and organs is limited without intravenous contrast. Bronchial thickening is seen. Pneumobilia is detected. Gallbladder has been removed. Marked constipation detected. There is thickening of the sigmoid colon reference series 2, image 102 measuring over 7 cm. There is proximal upstream dilatation of the colon with retained stool. It is unclear if this is a stricture possibly related to prior colitis. Neoplasm can have this appearance. Direct visualization is advised. IUD present within the uterus. Unremarkable adrenal glands pancreas and spleen. No hydronephrosis or renal stone. 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 Mild vascular calcifications seen. No aneurysm. Low-lying urinary bladder. Physiologic appearance of the ovaries. Minimal degenerative changes seen of the colon IMPRESSION: 1. Abnormal examination with proximal colonic dilatation and retained stool. There does appear to be stricturing of the sigmoid colon. Neoplasm needs to be excluded. Colonoscopy advised. 2. Pneumobilia status post cholecystectomy. Splenectomy changes. Lack of contrast does limit sensitivity. No hydronephrosis or renal stones Electronically signed by: NICO BLACKWELL MD Normal [facility] HCG,URINEon 08-29-2022 Beta HCG ( test) Ql (U) Negative Normal Negative [facility] Comment on above: Performed By: #### H CGU #### [place] [address] LACTATEon 08-29-2022 Lactate [Moles/Vol] 0.7 mmol/L Normal 0.4 - 2.0 [facility] Comment on above: Result Comment: Iliana puncture immediately after or during the administration of Metamizole may lead to falsely low results. Testing should be performed immediately prior to Metamizole dosing. Performed By: #### L ACT #### [place] [address] LIPASEon 08-29-2022 Lipase [Catalytic activity/Vol] 3 U/L Low 9 - 82 [facility] Comment on above: Result Comment: Iliana puncture immediately after or during the administration of Metamizole may lead to falsely low results. Testing should be performed immediately prior to Metamizole dosing. E-qcmjza-l-benzoquinone imine (metabolite of Acetaminophen) will generate erroneously low results in samples for patients that have taken toxic doses of acetaminophen. Performed By: #### L IPAS #### [place] [address] Provider Note - ED v3on 08-06 Provider Note - ED v3 Provider Note: Chart Review: HISTORY OF PRESENTING ILLNESS PRITESH is a 37 year old Female and was seen by me at 29-Aug-2022 14:42 for a chief complaint of flank pain (Patient to ED reference flank pain. Patient started having right sided back pain that radiates around thru her flank into abdomen x 2 days prior and has nausea/vomiting with it. Today she states it has gotten worse. She has a history of kidney stones.) . Triage Information: Most recent Vital Sign Value Date Temp (F): 98.4 08-29-2022 14:41 Temp (C): 36.8 08-29-2022 14:41 Heart Rate (beats/min): 98 08-29-2022 14:41 Respirations (breaths/min): 19 08-29-2022 14:41 SpO2 (%): 96 08-29-2022 14:41 BP Systolic (mm Hg): 180 08-29-2022 14:41 BP Diastolic (mm Hg): 119 08-29-2022 14:41 PAST MEDICAL HISTORY ALLERGIES/INTOLERANCES: Allergy Allergen: Cipro Type: Drug Reaction: Unknown Allergen: clindamycin Type: Drug Reaction: Anaphylaxis Allergen: meperidine Type: Drug Reaction: Unknown Allergen: cefadroxil Type: Drug Reaction: Unknown Allergen: erythromycin Type: Drug Reaction: Anaphylaxis Allergen: iothalamate Type: Drug Reaction: Anaphylaxis Allergen: metronidazole Type: Drug Reaction: Anaphylaxis Rash Allergen: nitrofurantoin Type: Drug Reaction: Anaphylaxis Allergen: penicillin Type: Drug Reaction: Anaphylaxis Allergen: pioglitazone Type: Drug Reaction: Rash Allergen: trimethoprim Type: Drug Reaction: Hives/Urticaria Allergen: vancomycin Type: Drug Reaction: Anaphylaxis Allergen: albuterol Type: Drug Reaction: Unknown Allergen: Duricef Type: Drug Reaction: Anaphylaxis Allergen: Toradol Type: Drug Reaction: Unknown Allergen: Keflex Type: Drug Reaction: Rash Allergen: Thorazine Type: Drug Reaction: Unknown Other Allergen: Bentyl Type: Drug Reaction: Anaphylaxis Allergen: Reglan Type: Drug Reaction: Unknown Allergen: sulfa drugs Type: Drug Category Reaction: Anaphylaxis HEALTH HISTORY: No documented data. OUTPATIENT MEDICATIONS: Home Medications Review Status for Reconciliation: Complete Med Status: Patient Currently Takes Medications Drug Name: albuterol 90 mcg/inh inhalation aerosol Instructions: 2 puff(s) inhaled every 6 hours, As Needed Drug Name: ALPRAZolam 1 mg oral tablet Instructions: 1 tab(s) orally 4 times a day, As Needed Drug Name: amLODIPine 5 mg oral tablet Instructions: 1 tab(s) orally once a day Drug Name: clonidine topical 0.2 mg/24 hr film, extended release Instructions: 1 patch transdermal once a week on Wednesday Drug Name: Creon 12,000 units oral delayed release capsule Instructions: 3 cap(s) orally 3 times a day (before meals) Drug Name: Dilaudid 2 mg oral tablet Instructions: 2 tab(s) orally every 4 hours, As Needed Drug Name: docusate sodium 50 mg oral capsule Instructions: 1 cap(s) orally 2 times a day Drug Name: gabapentin 300 mg oral capsule Instructions: 1 cap(s) orally 2 times a day Drug Name: Glucagon Emergency Kit for Low Blood Sugar 1 mg injection Instructions: 0.5 milligram(s) injectable once a day, As Needed Drug Name: insulin aspart 100 units/mL injectable solution Instructions: as directed Drug Name: losartan 100 mg oral tablet Instructions: 1 tab(s) orally once a day Drug Name: lubiprostone 24 mcg oral capsule Instructions: 1 cap(s) orally 2 times a day Drug Name: MiraLax oral powder for reconstitution Instructions: 17 gram(s) orally 2 times a day Drug Name: Mirena 52 mg intrauterine device Instructions: 1 each intrauterine once Drug Name: montelukast 10 mg oral tablet Instructions: 1 tab(s) orally once a day, As Needed Drug Name: omeprazole 40 mg oral delayed release capsule Instructions: 1 cap(s) orally once a day Drug Name: ondansetron 4 mg oral tablet, disintegrating Instructions: 1 tab(s) orally every 8 hours, As Needed Drug Name: prochlorperazine 5 mg/mL injectable solution Instructions: 5 milligram(s) injectable every 4 hours, As Needed Drug Name: promethazine 25 mg/mL injectable solution Instructions: 25 milligram(s) intramuscular every 6 hours, As Needed Drug Name: QUEtiapine 100 mg oral tablet Instructions: 1 tab(s) orally once a day (at bedtime) Drug Name: sertraline 100 mg oral tablet Instructions: 1 tab(s) orally once a day (at bedtime) Drug Name: tiZANidine 4 mg oral tablet Instructions: 2 tab(s) orally 2 times a day Drug Name: zolpidem 10 mg oral tablet Instructions: 1 tab(s) orally once a day (at bedtime) SIGNIFICANT EVENTS: No documented data. CRITICAL CARE RESULTS: Recent Lab Results: I have reviewed these laboratory results: Urine Test 29-Aug-2022 17:51:00 ResultValue HCG, Urine NEGATIVE Urinalysis with Culture if Indicated 29-Aug-2022 17:51:00 ResultValue Color, Urine Yellow Reference Range: STRAW,YELLOW (more content not included)... Normal [facility] Risk Screen - Adult Emergenc yon 08-29-2022 Risk Screen - Adult Emergency Preferred Language: Preferred Language: Preferred Language for Discussing Health Care (patient/designee)Greenlandic Patient Preferred Pharmacy: Patient Preferred Pharmacy Statement: I have reviewed and updated the patient's preferred pharmacy selection for today's visit. Advanced Directives: Advance Directive/DNRyes Advance Directive typeDNR- CCA DNR-CCA Availabilitynot available DRN-CCA [id number] Family Violence Adult: Abuse Screen: Are you or have you been threatened or abused physically, emotionally, or sexually by anyoneno Learning Assessment (Patient): Learning Assessment (Patient): Patient is Able to be Assessed for Learningyes Factors Influencing Readiness to Learnna Factors that Impact Ability to Learnnone Devices/Methods Used to Communicatenone Learning Preferencesaudio; computer/internet Cultural Considerationsnone Developmental Considerationsnone Confucianist Considerationsnone Learning Assessment (Other Learner): Learning Assessment (Other Learner): Other learner availableno Pressure Injury/TB/Substance: Pressure Injury: Pressure Injury Present on Admissionno Do you have a coughno Smoking Statusnever smoker Alcohol Usedenies Drug Usedenies Admission Risk Screen: Significant IndicatorsComplete CAGE: CAGE: Is this an injured patient at a Tra[place] Center [place]/[place]/ [place]): no Electronic Signatures: SUNNY MARTINEZ (ALFONZO) (Signed 29-Aug-2022 15:25) Authored: Preferred Language, Patient Preferred Pharmacy, Advanced Directives, Family Violence Adult, Learning Assessment (Patient), Learning Assessment (Other Learner), Pressure Injury/TB/Substance, Pressure Injury, CAGE Last Updated: 29-Aug-2022 15:25 by SUNNY MARTINEZ (RN) Normal [facility] UA MICROSCOPICon 08-29-2022 Mucus Ql (Urine sed) 1+ /LPF Normal [facility] Comment on above: Performed By: #### U AMIC #### [place] [address] RBC 6 /HPF Abnormal 0-5 [facility] Comment on above: Performed By: #### U AMIC #### [place] [address] SQUAMOUS EPITH. CELLS 4 /HPF Normal [facility] Comment on above: Performed By: #### U AMIC #### [place] [address] WBC 1 /HPF Normal 0-5 [facility] Comment on above: Performed By: #### U AMIC #### [place] [address] URINALYSIS WITH CULTURE IF I NDICATEDon 08-29-2022 Appearance (U) HAZY Normal CLEAR [facility] Comment on above: Performed By: #### U ARFX #### [place] [address] Bilirubin Ql (U) Negative Normal NEGATIVE [facility] Comment on above: Performed By: #### U ARFX #### [place] [address] Color (U) Yellow Normal STRAW,YELL OW [facility] Comment on above: Performed By: #### U ARFX #### [place] [address] Glucose Ql (U) Negative Normal NEGATIVE [facility] Comment on above: Performed By: #### U ARFX #### [place] [address] Hemoglobin Ql (U) MODERATE(2+) Abnormal NEGATIVE [facility] Comment on above: Performed By: #### U ARFX #### [place] [address] Ketones Ql (U) Negative Normal NEGATIVE [facility] Comment on above: Performed By: #### U ARFX #### [place] [id number] Leukocyte esterase Test strip Ql (U) Negative Normal NEGATIVE [facility] Comment on above: Performed By: #### U ARFX #### [address] [address] Nitrite Ql (U) Negative Normal NEGATIVE [facility] Comment on above: Performed By: #### U ARFX #### [place] [address] pH (U) 6.0 [pH] Normal 5.0 - 8.0 [facility] Comment on above: Performed By: #### U ARFX #### [place] [address] Protein Ql (U) Negative Normal NEGATIVE [facility] Comment on above: Performed By: #### U ARFX #### [place] [address] Specific gravity (U) [Rel density] 1.011 Normal 1.005 - 1.035 [facility] Comment on above: Performed By: #### U ARFX #### [place] [address] Urobilinogen (U) [Mass/Vol] mg/dL Normal 0.0 - 1.9 [facility] Comment on above: Performed By: #### U ARFX #### [place] [id number] Basic Metabolic Panel 08-06 Anion gap [Moles/Vol] 11 mmol/L 9 - 17 mmol/L [facility] Calcium [Mass/Vol] 8.3 mg/dL Low 8.6 - 10. 4 mg/dL [facility] Chloride [Moles/Vol] 107 mmol/L 98 - 10 7 mmol/L [facility] Invested.in CO2 [Moles/Vol] 24 mmol/L 20 - 31 mmol/L [facility] Creatinine [Mass/Vol] 2.28 mg/dL High 0.50 - 0.90 mg/dL [facility] GFR/1.73 sq M.predicted MDRD (S/P/Bld) [Vol rate/Area] 28 mL/min/{1.73_m2} Low - PINF [facility] Comment on above: These results are not intended for use in patients <18 years of age. eGFR results are calculated without a race factor using the 2020 CKD-EPI equation. Careful clinical correlation is recommended, particularly when comparing to results calculated using previous equations. The CKD-EPI equation is less accurate in patients with extremes of muscle mass, extra-renal metabolism of creatine, excessive creatine ingestion, or following therapy that affects renal tubular secretion. Glucose [Mass/Vol] 185 mg/dL High 70 - 99 mg/dL [facility] Interpretation and review of laboratory results Abnormal [facility] Potassium [Moles/Vol] 4.2 mmol/L 3.7 - 5.3 mmol/L [facility] Sodium [Moles/Vol] 142 mmol/L 135 - 144 mmol/L [facility] Urea nitrogen [Mass/Vol] 25 mg/dL High 6 - 20 mg/dL [facility] Urea nitrogen/Creatinine (Bld) [Mass ratio] 11 9 - 20 [facility] CBC AUTO DIFFon 08-27-2022 BASO # 0.1 103/ul Normal 0.0-0.1 [facility] Comment on above: Performed By: #### T NS #### [facility] [address] [place] [address] Dr. Laila Feliciano Basophils/100 WBC (Bld) 0.5 % Normal 0.2-2.0 [facility] Comment on above: Performed By: #### T NS #### [facility] [address] [place] [address] Dr. Laila Feliciano EO # 0.0 103/ul Normal 0.0-0.7 [facility] Comment on above: Performed By: #### T NS #### [facility] [address] [place] [address] Dr. Laila Feliciano Eosinophils/100 WBC (Bld) 0.1 % Critically low 0.9-7.0 [facility] Comment on above: Performed By: #### T NS #### [facility] [address] [place] [address] Dr. Laila Feliciano Erythrocyte distribution width (RBC) [Ratio] 15.9 % Critically high 11.0-15.0 [facility] Comment on above: Performed By: #### T NS #### [facility] [address] [place] [address] Dr. Laila Feliciano Hematocrit (Bld) [Volume fraction] 29.3 % Critically low 36.0-48.0 [facility] Comment on above: Performed By: #### T NS #### [facility] [address] [place] [address] Dr. Laila Feliciano Hemoglobin (Bld) [Mass/Vol] 9.4 g/dL Critically low 12.0-16.0 [facility] Comment on above: Performed By: #### T NS #### [facility] [address] [place] [address] Dr. Laila Feliciano IG # 0.07 10e3/ul Critically high 0.00-0.03 [facility] Comment on above: Performed By: #### T NS #### [facility] [address] [place] [address] Dr. Laila Feliciano IG % 0.5 % Normal 0.0-0.5 [facility] Comment on above: Performed By: #### T NS #### [facility] [address] [place] [address] Dr. Laila Feliciano LYMPH # 1.9 103/ul Normal 1.2-3.8 [facility] Comment on above: Performed By: #### T NS #### [facility] [address] [place] [address] Dr. Laila Feliciano Lymphocytes/100 WBC (Bld) 14.5 % Critically low 20.5-60.0 [facility] Comment on above: Performed By: #### T NS #### [facility] [address] [place] [address] Dr. Laila Feliciano MANUAL DIFF REQ NO Normal [facility] Comment on above: Performed By: #### T NS #### [facility] [address] [place] [address] Dr. Laila Feliciano MCH (RBC) [Entitic mass] 30.0 pg Normal 26.7-34.0 [facility] Comment on above: Performed By: #### T NS #### [facility] [address] [place] [address] [address] Laila Feliciano MCHC (RBC) [Mass/Vol] 32.1 g/dL Normal 29.9-35.2 [facility] Comment on above: Performed By: #### T NS #### [facility] [address] [place] [address] [address] Laila Feliciano MCV (RBC) [Entitic vol] 93.6 fL Normal 81.0-99.0 [facility] Comment on above: Performed By: #### T NS #### [facility] [address] [place] [address] Dr. Laila Feliciano MONO # 0.6 103/ul Normal 0.3-0.8 [facility] Comment on above: Performed By: #### T NS #### [facility] [address] [place] [address] Dr. Laila Feliciano Monocytes/100 WBC (Bld) 4.8 % Normal 1.7-12.0 [facility] Comment on above: Performed By: #### T NS #### [facility] [address] [place] [address] [address] Laila Feliciano NEUT # 10.5 103/ul Critically high 1.4-6.5 [facility] Comment on above: Performed By: #### T NS #### [facility] [address] [place] [address] [address] Laila Feliciano Neutrophils/100 WBC (Bld) 79.6 % Critically high 43.0-75.0 [facility] Comment on above: Performed By: #### T NS #### [facility] [address] [place] [address] [address] Laila Feliciano Platelet mean volume (Bld) [Entitic vol] 10.2 fL Normal 9.5-13.5 [facility] Comment on above: Performed By: #### T NS #### [facility] [address] [place] [address] [address] Laila Feliciano PLT 380 103/ul Normal 150-450 [facility] Comment on above: Performed By: #### T NS #### [facility] [address] [place] [address] [address] Laila Feliciano RBC 3.13 106/ul Critically low 4.20-5.40 [facility] Comment on above: Performed By: #### T NS #### [facility] [address] [place] [address] [address] Laila Feliciano WBC 13.2 103/ul Critically high 4.0-11.0 [facility] Comment on above: Performed By: #### T NS #### [facility] [address] [place] [address] [address] Laila Feliciano CBC with Auto Differentialon 08-27-2022 Absolute Eos # [facility] Absolute Immature Granulocyte 0.05 [facility] Absolute Lymph # 2.65 [facility] Absolute Howell # 0.71 [facility] Basophils (Bld) [#/Vol] 0.07 10*3/uL [facility] Basophils/100 WBC (Bld) 1 % 0 - 2 % [facility] Eosinophils/100 WBC (Bld) 0 % Low 1 - 4 % [facility] Hematocrit (Bld) [Volume fraction] 29.3 % Low 36.3 - 47.1 % [facility] Hemoglobin (Bld) [Mass/Vol] 9.4 g/dL Low 11.9 - 15.1 g/dL [facility] Immature granulocytes/100 WBC (Bld) 0 % 0 [facility] Interpretation and review of laboratory results Abnormal [facility] Lymphocytes/100 WBC (Bld) 20 % Low 24 - 43 % [facility] MCH (RBC) [Entitic mass] 30.5 pg 25.2 - 33.5 pg [facility] MCHC (RBC) [Mass/Vol] 32.1 g/dL 28.4 - 34.8 g/dL [facility] MCV (RBC) [Entitic vol] 95.1 fL 82.6 - 102.9 fL [facility] Monocytes/100 WBC (Bld) 5 % 3 - 12 % [facility] NRBC Automated 0.0 0.0 per 100 WBC [facility] Platelet distribution width (Bld) [Ratio] 15.8 % High 11.8 - 14.4 % [facility] Platelet mean volume (Bld) [Entitic vol] 10.3 fL 8.1 - 13.5 fL [facility] Platelets (Bld) [#/Vol] 381 10*3/uL [facility] RBC (Bld) [#/Vol] 3.08 10*6/uL Low 3.95 - 5.11 m/uL [facility] Segmented neutrophils/100 WBC (Bld) 74 % High 36 - 65 % [facility] Segs Absolute 9.73 High [facility] WBC (Bld) [#/Vol] 13.2 10*3/uL High [facility] CT ABDOMEN PELVIS WO CONTRAS T Additional Contrast? Noneon 08-27-2022 1. No acute findings . 2. Constipation with a large amount of stool in the colon and fecalization of the distal small bowel contents which suggests stasis. 3. Intrauterine device in the uterus. PN RIS CONSOLIDATED EXAMINATION: CT OF THE ABDOMEN AND PELVIS WITHOUT CONTRAST 08/27/2022 5:12 pm TECHNIQUE: CT of the abdomen and pelvis was performed without the administration of intravenous contrast. Multiplanar reformatted images are provided for review. Automated exposure control, iterative reconstruction, and/or weight based adjustment of the mA/kV was utilized to reduce the radiation dose to as low as reasonably achievable. COMPARISON: 05/28/2022. HISTORY: ORDERING SYSTEM PROVIDED HISTORY: right flank pain TECHNOLOGIST PROVIDED HISTORY: right flank pain Decision Support Exception - unselect if not a suspected or confirmed emergency medical condition->Emergency Medical Condition (MA) Is the patient ?->No FINDINGS: Lower Chest: The lung bases are unremarkable. There is no pleural effusion. Organs: The liver adrenal glands are unremarkable. 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 The pancreatic remnant appears normal. There has been a cholecystectomy. The kidneys are unremarkable. There is no ureteral stone or hydronephrosis. 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 There splenules in the left upper quadrant. GI/Bowel: There is no bowel dilatation or bowel wall thickening. There is a large amount of stool in the colon. The distal small bowel contents are fecalized. The stomach is unremarkable. The appendix is not definitely identified and may be absent. There is no enlarged appendix and there are no inflammatory changes near the cecum. Pelvis: The bladder appears normal. There is an intrauterine device in the uterus. There is no abnormal adnexal mass. Peritoneum/Retroperitoneu m: No evidence of lymphadenopathy. Aorta is normal in caliber. No fat stranding, free fluid, free air or focal fluid collection is identified. Bones/Soft Tissues: No destructive bone lesion is identified. PN RIS CONSOLIDATED Uday Drake MD - 08/27/2022 EXAMINATION: CT OF THE ABDOMEN AND PELVIS WITHOUT CONTRAST 08/27/2022 5:12 pm TECHNIQUE: CT of the abdomen and pelvis was performed without the administration of intravenous contrast. Multiplanar reformatted images are provided for review. Automated exposure control, iterative reconstruction, and/or weight based adjustment of the mA/kV was utilized to reduce the radiation dose to as low as reasonably achievable. COMPARISON: 05/28/2022. HISTORY: ORDERING SYSTEM PROVIDED HISTORY: right flank pain TECHNOLOGIST PROVIDED HISTORY: right flank pain Decision Support Exception - unselect if not a suspected or confirmed emergency medical condition->Emergency Medical Condition (MA) Is the patient ?->No FINDINGS: Lower Chest: The lung bases are unremarkable. There is no pleural effusion. Organs: The liver adrenal glands are unremarkable. 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 The pancreatic remnant appears normal. There has been a cholecystectomy. The kidneys are unremarkable. There is no ureteral stone or hydronephrosis. 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 There splenules in the left upper quadrant. GI/Bowel: There is no bowel dilatation or bowel wall thickening. There is a large amount of stool in the colon. The distal small bowel contents are fecalized. The stomach is unremarkable. The appendix is not definitely identified and may be absent. There is no enlarged appendix and there are no inflammatory changes near the cecum. Pelvis: The bladder appears normal. There is an intrauterine device in the uterus. There is no abnormal adnexal mass. Peritoneum/Retroperitoneu m: No evidence of lymphadenopathy. Aorta is normal in caliber. No fat stranding, free fluid, free air or focal fluid collection is identified. Bones/Soft Tissues: No destructive bone lesion is identified. IMPRESSION: 1. No acute findings. 2. Constipation with a large amount of stool in the colon and fecalization of the distal small bowel contents which suggests stasis. 3. Intrauterine device in the uterus. [employer] Work Phone: Radiology Study observation (narrative) [employer] Work Phone: CT ABDOMEN PELVIS WO CONTRAS T Additional Contrast? NoneOrdered By: Uday Drake on 08-27-2022 [employer] Work Phone: Microscopic Urinalysison Bacteria, UA TRACE Abnormal None [facility] Epithelial Cells UA 2 TO 5 [facility] Nonoba Interpretation and review of laboratory results Abnormal [facility]ease RBC clumps Auto (Urine sed) [#/Area] 0 TO 2 [facility]ITALHelveta [facility]ITAL[facility]il[facility] WBC, UA 0 TO 2 [facility]ript[facility]ase [facility] PREG HCG QUALon 08-27-2022 , QUAL Negative Normal NEGATIVE [facility] Comment on above: Performed By: #### C BC #### [facility] [address] [place] [address] Dr. Laila Feliciano PROF 14(COMP METB)on 023 Albumin [Mass/Vol] 3.3 g/dL Critically low 3.4-5.0 Th [facility] Comment on above: Performed By: #### T NS #### [facility] [address] [place] [address] Dr. Laila Feliciano Albumin/Globulin [Mass ratio] 0.9 {ratio} Normal [facility] Comment on above: Performed By: #### T NS #### [facility] [address] [place] [address] Dr. Laila Feliciano ALP [Catalytic activity/Vol] 142 U/L Critically high 46-116 [facility] Comment on above: Performed By: #### T NS #### [facility] [address] [place] [address] Dr. Laila Feliciano ALT [Catalytic activity/Vol] 24 U/L Normal 14-59 [facility] Comment on above: Performed By: #### T NS #### [facility] [address] [place] [address] Dr. Laila Feliciano Anion gap [Moles/Vol] 11.6 mmol/L Normal [facility] Comment on above: Performed By: #### T NS #### [facility] [address] [place] [address] Dr. Laila Feliciano AST [Catalytic activity/Vol] 20 U/L Normal 15-37 [facility] Comment on above: Performed By: #### T NS #### [facility] [address] [place] [address] Dr. Laila Feliciano Bilirubin [Mass/Vol] 0.1 mg/dL Critically low 0.2-1.0 [facility] Comment on above: Performed By: #### T NS #### [facility] [address] [place] [address] Dr. Laila Feliciano Calcium [Mass/Vol] 8.2 mg/dL Critically low 8.5-10.1 [facility] Comment on above: Performed By: #### T NS #### [facility] [address] [place] [address] Dr. Laila Feliciano Chloride [Moles/Vol] 106 mmol/L Normal 98-107 [facility] Comment on above: Performed By: #### T NS #### [facility] [address] [place] [address] Dr. Laila Feliciano CO2 [Moles/Vol] 25.2 mmol/L Normal 21.0-32.[address] [facility] Comment on above: Performed By: #### T NS #### [facility] [address] [place] [address] Dr. Laila Feliciano Creatinine [Mass/Vol] 1.71 mg/dL Critically high 0.55-1.02 [facility] Comment on above: Performed By: #### T NS #### [facility] [address] [place] [address] Dr. Laila Feliciano EGFR-AF PAKISTANI 41 mL/min/1.73m2 Critically low >=60 [facility] Comment on above: Performed By: #### T NS #### [facility] [address] [address] [address] Laila Feliciano EGFR-NON AF PAKISTANI 34 mL/min/1.73m2 Critically low >=60 [facility] Comment on above: Performed By: #### T NS #### [facility] [address] [address] [address] Laila Feliciano Globulin (S) [Mass/Vol] 3.4 g/dL Normal [facility] Comment on above: Performed By: #### T NS #### [facility] [address] [address] [address] Laila Feliciano Glucose [Mass/Vol] 175 mg/dL Critically high 74-106 [facility] Comment on above: Performed By: #### T NS #### [facility] [address] [address] [address] Laila Feliciano Potassium [Moles/Vol] 3.8 mmol/L Normal 3.5-5.1 [facility] Comment on above: Performed By: #### T NS #### [facility] [address] [address] [address] Laila Feliciano Protein [Mass/Vol] 6.7 g/dL Normal 6.4-8.2 [facility] Comment on above: Performed By: #### T NS #### [facility] [address] [address] [address] Laila Feliciano Sodium [Moles/Vol] 140 mmol/L Normal 136-145 [facility] Comment on above: Performed By: #### T NS #### [facility] [address] [address] [address] Laila Feliciano Urea nitrogen [Mass/Vol] 22.0 mg/dL Critically high 7.0-18.0 [facility] Comment on above: Performed By: #### T NS #### [facility] [address] [address] [address] Laila Feliciano Urea nitrogen/Creatinine [Mass ratio] 12.9 mg/mg Normal [facility] Comment on above: Performed By: #### T NS #### [facility] [address] [place] [address] Dr. Laila Feliciano PROTIMEon 08-27-2022 INR Coag (PPP) [Relative time] 1.34 {INR} Normal [facility] Comment on above: Performed By: #### P OCGLUC #### [facility] [address] [place] [address] Dr. Laila Feliciano INR GUIDELINES SEE BELOW Normal [facility] Comment on above: Result Comment: SIDNEY RED INR: 2.0 - 3.0 CONDITIONS NOT LISTED BELOW 2.5 - 3.5 FOR PROSTHETIC HEART VALVE REPLACEMENT 2.5 - 3.5 RECURRENT THROMBOSIS Performed By: #### P OCGLUC #### [facility] [address] [place] [address] Dr. Laila Feliciano PT Coag (PPP) [Time] 14.0 s Critically high 9.0-11.6 [facility] Comment on above: Performed By: #### P OCGLUC #### [facility] [address] [place] [address] Dr. Laila Feliciano PTTon 08-27-2022 aPTT Coag (Bld) [Time] 25.9 s Normal 22.3-36.2 Th [facility] Comment on above: Performed By: #### B LDCX2 #### [facility] [address] [place] [address] Dr. Laila Feliciano , Urineon 3 Beta HCG ( test) Ql (U) Negative NEGATIVE [facility] Comment on above: Specimens with hCG l evels near the threshold of the test (25 mIU/mL) may give a negative or indeterminate result. In such cases, another test should be performed with a new specimen in 48-72 hours. If early is suspected clinically in this setting, correlation with quantitative serum b-hCG level is suggested. [employer] has confirmed the use of plasma for this test. This has not been cleared or approved by the U.S. Food and Drug Administration. The FDA has determined that such clearance is not necessary. [facility] TROPONIN, HIGH SENSITIVITYon 08-27-2022 HSTROP 7.8 pg/mL Normal 4.0-51.3 [facility] Comment on above: Result Comment: CUT- OFF POINTS HAVE BEEN ESTABLISHED BASED ON THE FOURTH UNIVERSAL DEFINITIONS OF MYOCARDIAL INFARCTION. THE UPPER REFERENCE LIMIT (URL) OF TROPONIN, DEFINED THE 99TH PERCENTILE OF cTnI DISTRIBUTION IN A REFERENCE POPULATION, HAS BEEN CONFIRMED THE DECISION THRESHOLD FOR HI DIAGNOSIS. Performed By: #### C BC #### [facility] [address] [address] [address] Laila Feliciano HSTROP 7.5 pg/mL Normal 4.0-51.3 [facility] Comment on above: Result Comment: CUT- OFF POINTS HAVE BEEN ESTABLISHED BASED ON THE FOURTH UNIVERSAL DEFINITIONS OF MYOCARDIAL INFARCTION. THE UPPER REFERENCE LIMIT (URL) OF TROPONIN, DEFINED THE 99TH PERCENTILE OF cTnI DISTRIBUTION IN A REFERENCE POPULATION, HAS BEEN CONFIRMED THE DECISION THRESHOLD FOR HI DIAGNOSIS. Performed By: #### T NS #### [facility] [address] [address] [address] Laila Feliciano Urinalysis with Reflex to Cu ltureon 08-27-2022 Bilirubin Urine Negative NEGATIVE [facility] tidy [employer]in Color, UA Yellow Yellow [facility] Glucose Auto test strip (U) [Mass/Vol] Negative NEGATIVE [facility] Ketones (U) [Mass/Vol] Negative NEGATIVE [facility]IBHA N [facility] Leukocyte esterase Auto test strip Ql (U) Negative NEGATIVE [facility] Invest[employer]in Nitrite Auto test strip Ql (U) Negative NEGATIVE [facility] Protein (U) [Mass/Vol] 6.0 mg/dL 5.0 - 9.0 [facility]IBHA N [facility] Protein (U) [Mass/Vol] Negative NEGATIVE [facility]ATIBHA N [facility] Specific [place], UA 1.010 1.010 - 1.020 [facility] Turbidity UA Clear Clear [facility] Urine Hgb Negative NEGATIVE [facility] Urobilinogen, Urine Normal Normal [facility] XR CHEST 2 Von 08-27-2022 XR CHEST 2 V EXAM: Chest x-ray HISTORY: . Chest pain . COMPARISON: 08/23/2022 TECHNIQUE: Frontal and lateral chest FINDINGS: Heart and vascularity are unremarkable. Lungs are free of focal infiltrates. There is a small linear area of increased density in the left lung base consistent with platelike atelectasis. Infusion catheter is noted entering from the right with the tip over the superior vena cava. No acute bony abnormality is appreciated. Instantly noted is a moderate to large amount of stool in the visualized colon. Impression: 1. Linear area of platelike atelectasis in the left lower lobe. Lung leal are otherwise unremarkable. 2. Infusion catheter in place. 3. Incidentally noted is a moderate to large amount of stool in the visualized colon. Electronically authenticated by: PATTI GUADALUPE Date: 2022-08-27 11:43 Normal [facility] A1C HEMOGLOBINon 07-22-2022 HbA1c (Bld) [Mass fraction] 7.7 % [employer] Other Glucose - FINGER STICKon Glucose [Mass/Vol] 92 mg/dL [employer] Other HbA1c (Bld) [Mass fraction]o n 07-22-2022 A1C HEMOGLOBIN [employer] Other Activated partial thrombopla stin time (aPTT) in platelet poor plasma by coagulation aOrdered By: Aravind Chandler on 07-10-2022 aPTT Coag (PPP) [Time] 31.3 s 25.1-36.5 [facility] Albumin [Mass/volume] in Ser um or PlasmaOrdered By: Aravind Chandler on 07-10-2022 Albumin [Mass/Vol] 3.5 g/dL 3.2-5.5 [facility] Amphetamine Screen Ql (U)Ord ered By: Aravind Chandler on 07-10-2022 Amphetamines Ql (U) Negative Negative [facility] Anisocytosis LM Ql (Bld)Orde red By: Aravind Chandler on 07-10-2022 Anisocytosis Ql (Bld) Slight Fir [facility] Barbiturates [Presence] in U rineOrdered By: Aravind Chandler on 07-10-2022 Barbiturates Ql (U) Negative Negative [facility] Basophils Auto (Bld) [#/Vol] Ordered By: Aravind Chandler on 07-10-2022 Basophils (Bld) [#/Vol] N/A [facility] Basophils/100 WBC Auto (Bld) Ordered By: Aravind Chandler on 07-10-2022 Basophils/100 WBC (Bld) N/A [facility] Benzodiazepines [Presence] i n UrineOrdered By: Aravind Chandler on 07-10-2022 Benzodiazepines Ql (U) Positive Negative [facility] Bilirubin Test strip Ql (U)O rdered By: Aravind Chandler on 07-10-2022 Bilirubin Ql (U) Negative Negative [facility] Cannabinoids [Presence] in U rine by Screen methodOrdered By: Aravind Chandler on 07-10-2022 Cannabinoids Screen Ql (U) Negative Negative [facility] Comment on above: These are unconfirme d results and should not be used for legal purposes. Drug Cut-Off Concentration: AMPH 1000 ng/mL FANTA 200 ng/mL TATIANA 200 ng/mL COCM 300 ng/mL OP 300 ng/mL PCP 25 ng/mL THC 20 ng/mL Color Auto (U)Ordered By: Lionel Chandler on 07-10-2022 Color (U) Yellow Yellow [facility] Creatine kinase [Enzymatic a ctivity/volume] in Serum or PlasmaOrdered By: Aravind Chandler on 07-10-2022 CK [Catalytic activity/Vol] 2310 U/L 22-269 [facility] Creatinine and Glomerular fi ltration rate.predicted panel (S/P/Bld)Ordered By: Aravind Chandler on 07-10-2022 Creatinine [Mass/Vol] 2.08 mg/dL 0.44-1.[address] [facility] Eosinophils Auto (Bld) [#/Vo l]Ordered By: Aravind Chandler on 07-10-2022 Eosinophils (Bld) [#/Vol] N/A [facility] Eosinophils/100 WBC Auto (Bl d)Ordered By: Aravind Chandler on 07-10-2022 Eosinophils/100 WBC (Bld) N/A [facility] Erythrocyte distribution wid th Auto (RBC) [Ratio]Ordered By: Aravind Chandler on 07-10-2022 Erythrocyte distribution width (RBC) [Ratio] 18.2 % 11.9-15.3 [facility] Estimated glomerular filtrat ion rate (GFR) non- AmericanOrdered By: Aravind Chandler on 07-10-2022 GFR/1.73 sq M.predicted among non-blacks MDRD (S/P/Bld) [Vol rate/Area] 27 mL/Min [facility] Giant platelets/100 leukocyt es [Ratio] in Blood by Manual countOrdered By: Aravind Chandler on 07-10-2022 Giant platelets/100 WBC Manual cnt (Bld) [Ratio] 7 /100{WBC} [facility] Globulin Calc (S) [Mass/Vol] Ordered By: Aravind Chandler on 07-10-2022 Globulin (S) [Mass/Vol] 3.4 g/dL [facility] Glucose Glucometer (BldC) [M ass/Vol]Ordered By: Aravind Chandler on 07-10-2022 Glucose [Mass/Vol] 139 mg/dL [facility] Comment on above: Random Glucose Refer ence Range is dependent on time and content of last meal. Glucose of more than 200 mg/dL in a nonstressed, ambulatory subject supports the diagnosis of Diabetes Mellitus. Hematocrit Auto (Bld) [Volum e fraction]Ordered By: Aravind Chandler on 07-10-2022 Hematocrit (Bld) [Volume fraction] 32.9 % 34.0-46.4 [facility] Hemoglobin [Mass/volume] in BloodOrdered By: Aravind Chandler on 07-10-2022 Hemoglobin (Bld) [Mass/Vol] 10.4 g/dL 11.8-15.4 [facility] Ketones Auto test strip (U) [Mass/Vol]Ordered By: Aravind Chandler on 07-10-2022 Ketones (U) [Mass/Vol] Negative Negative [facility] - Chemistry and C hemistry - challengeOrdered By: Aravind Chandler on 07-10-2022 Magnesium [Mass/Vol] 1.9 mg/dL 1.6-2.6 [facility] - CoagulationOrde red By: Aravind Chandler on 07-10-2022 PT Coag (PPP) [Time] 13.5 s 9.0-12.9 [facility] - Drug toxicology Ordered By: Aravind Chandler on 07-10-2022 Opiates Ql (U) Positive Negative [facility] Leukocytes [#/volume] correc aarti for nucleated erythrocytes in Blood by Automated counOrdered By: Aravind Chandler on 07-10-2022 WBC corrected for nucl RBC Auto (Bld) [#/Vol] 11.1 10*3/uL 3.8-11.6 [facility] Lymphocytes Auto (Bld) [#/Vo l]Ordered By: Aravind Chandler on 07-10-2022 Lymphocytes (Bld) [#/Vol] N/A [facility] Lymphocytes/100 WBC Auto (Bl d)Ordered By: Aravind Chandler on 07-10-2022 Lymphocytes/100 WBC (Bld) N/A [facility] Lymphocytes/100 WBC Manual c nt (Bld)Ordered By: Aravind Chandler on 07-10-2022 Lymphocytes/100 WBC (Bld) 9 % 18-42 [facility] MCH Auto (RBC) [Entitic mass ]Ordered By: Aravind Chandler on 07-10-2022 MCH (RBC) [Entitic mass] 27.3 pg 24.7-34.3 [facility] MCHC Auto (RBC) [Mass/Vol]Or dered By: Aravind Chandler on 07-10-2022 MCHC (RBC) [Mass/Vol] 31.6 g/dL 32.0-35.[address] [facility] MCV Auto (RBC) [Entitic vol] Ordered By: Aravind Chandler on 07-10-2022 MCV (RBC) [Entitic vol] 86.3 fL 80-100 [facility] Monocyte distribution width [Entitic volume] in Blood by AutomatedOrdered By: Aravind Chandler on 07-10-2022 Monocyte distribution width Auto (Bld) [Entitic vol] 24.78 % 0.00-20.00 [facility] Comment on above: For adults in ED, MD W > 20.0 may be associated with a higher risk of sepsis during the first 12 hrs of hospital admission Monocytes Auto (Bld) [#/Vol] Ordered By: Aravind Chandler on 07-10-2022 Monocytes (Bld) [#/Vol] N/A [facility] Monocytes/100 WBC Auto (Bld) Ordered By: Aravind Chandler on 07-10-2022 Monocytes/100 WBC (Bld) N/A [facility] Monocytes/100 WBC Manual cnt (Bld)Ordered By: Aravind Chandler on 07-10-2022 Monocytes/100 WBC (Bld) 5 % 2-11 [facility] Neutrophils Auto (Bld) [#/Vo l]Ordered By: Aravind Chandler on 07-10-2022 Neutrophils (Bld) [#/Vol] N/A [facility] Neutrophils/100 WBC Auto (Bl d)Ordered By: Aravind Chandler on 07-10-2022 Neutrophils/100 WBC (Bld) N/A [facility] Nitrite Test strip Ql (U)Ord ered By: Aravind Chandler on 07-10-2022 Nitrite Ql (U) Negative Negative [facility] No Panel InformationOrdered By: Aravind Chandler on 07-10-2022 Estimated GFR () 33 mL/Min [facility] Comment on above: GFR estimated refere nce range: According to KDOQI guidelines, <60 ml/min/1.73m2 is sufficient to diagnose a patient with chronic kidney disease. Pharmacy Creatinine Clearance (Chem 37.72 [facility] Bedside Glucose #2 Comment Cleaned meter [facility] Bedside Glucose Comment See comment [facility] Comment on above: Glu2: WILL NOTIFY DR /RN Nucleated erythrocytes [Pres ence] in Blood by Automated countOrdered By: Aravind Chandler on 07-10-2022 Nucleated RBC Auto Ql (Bld) N/A [facility] Phencyclidine Screen Ql (U)O rdered By: Aravind Chandler on 07-10-2022 Phencyclidine Ql (U) Negative Negative [facility] Platelet adequacy [Presence] in Blood by Light microscopyOrdered By: Aravind Chandler on 07-10-2022 Platelets LM Ql (Bld) Decreased Normal Fir [facility] Platelet mean volume Auto (B ld) [Entitic vol]Ordered By: Aravind Chandler on 07-10-2022 Platelet mean volume (Bld) [Entitic vol] 9.5 fL 6.3-10.7 [facility] Platelet morphology finding [Identifier] in BloodOrdered By: Aravind Chandler on 07-10-2022 Platelet morphology finding Nom (Bld) N/A [facility] Platelet poor plasma interna tional normalized ratio (INR) by coagulation assay (relatOrdered By: Aravind Chandler on 07-10-2022 INR Coag (PPP) [Relative time] 1.2 {INR} [facility] Comment on above: INR Therapeutic Rang e A) Pre- and Peroperative OAT started two weeks before surgery. NOT HIP SURGERY: 1.5 - 2.5 HIP SURGERY: 2 - 3B) Primary and secondary prevention of venous THROMBOSIS: 2 - 3C) Active venous thrombosis, pulmonary embolismand prevention of recurrent venous thrombosis: 2 - 3D) Prevention of arterial thromboembolismincluding patients with mechanical heart valves: 3 - 4.5 Platelets Auto (Bld) [#/Vol] Ordered By: Aravind Chandler on 07-10-2022 Platelets (Bld) [#/Vol] 355 10*3/uL 150-450 [facility] Platelets Large [Presence] i n Blood by Light microscopyOrdered By: Aravind Chandler on 07-10-2022 Platelets Large LM Ql (Bld) Moderate [facility] Poikilocytosis [Presence] in Blood by Light microscopyOrdered By: Aravind Chandler on 07-10-2022 Poikilocytosis LM Ql (Bld) Slight [facility] Polychromasia [Presence] in Blood by Light microscopyOrdered By: Aravind Chandler on 07-10-2022 Polychromasia LM Ql (Bld) Slight [facility] Protein Auto test strip (U) [Mass/Vol]Ordered By: Aravind Chandler on 07-10-2022 Protein (U) [Mass/Vol] Negative Negative [facility] Protein [Mass/volume] in Ser um or PlasmaOrdered By: Aravind Chandler on 07-10-2022 Protein [Mass/Vol] 6.9 g/dL 6.1-7.9 [facility] RBC Auto (Bld) [#/Vol]Ordere d By: Aravind Chandler on 07-10-2022 RBC (Bld) [#/Vol] 3.80 10*6/uL 3.60-5.00 [facility] RBC morphologyOrdered By: Lionel Chandler on 07-10-2022 RBC morphology finding Nom (Bld) N/A [facility] Segmented neutrophils/100 WB C Manual cnt (Bld)Ordered By: Aravind Chandler on 07-10-2022 Segmented neutrophils/100 WBC (Bld) 86 % 50-70 [facility] Serum or plasma alanine tate otransferase measurement without P-5'-P (enzymatic activiOrdered By: Aravind Chandler on 07-10-2022 ALT No additional P-5'-P [Catalytic activity/Vol] 26 U/L 10-60 [facility] Serum or plasma albumin/glob ulin mass ratioOrdered By: Aravind Chandler on 07-10-2022 Albumin/Globulin [Mass ratio] 1.0 {ratio} [facility] Serum or plasma alkaline harish sphatase measurement (enzymatic activity/volume)Ordered By: Aravind Chandler on 07-10-2022 ALP [Catalytic activity/Vol] 112 U/L 32-92 [facility] Serum or plasma anion gap de terminationOrdered By: Aravind Chandler on 07-10-2022 Anion gap [Moles/Vol] 10.1 mmol/L 6.0-15.0 [facility] Serum or plasma aspartate am inotransferase measurement (enzymatic activity/volume)Ordered By: Aravind Chandler on 07-10-2022 AST [Catalytic activity/Vol] 40 U/L 10-42 [facility] Serum or plasma calcium amber urement (mass/volume)Ordered By: Aravind Chandler on 07-10-2022 Calcium [Mass/Vol] 8.8 mg/dL 8.2-10.2 [facility] Serum or plasma chloride franco surement (moles/volume)Ordered By: Aravind Chandler on 07-10-2022 Chloride [Moles/Vol] 108 mmol/L 95-114 [facility] Serum or plasma glucose amber urement (mass/volume)Ordered By: Aravind Chandler on 07-10-2022 Glucose [Mass/Vol] 154 mg/dL 70-100 [facility] Comment on above: ADA recommended refe rence rangeRandom Glucose Reference Range is dependent on time and content of last meal. Glucose of more than 200 mg/dL in a nonstressed, ambulatory subject supports the diagnosis of Diabetes Mellitus. Serum or plasma potassium me asurement (moles/volume)Ordered By: Aravind Chandler on 07-10-2022 Potassium [Moles/Vol] 4.6 mmol/L 3.5-5.[address] [facility] Serum or plasma sodium measu rement (moles/volume)Ordered By: Aravind Chandler on 07-10-2022 Sodium [Moles/Vol] 134 mmol/L 136-146 [facility] Serum or plasma total biliru bin measurement (mass/volume)Ordered By: Aravind Chandler on 07-10-2022 Bilirubin [Mass/Vol] 0.3 mg/dL 0.3-1.2 [facility] Serum or plasma total carbon dioxide measurement (moles/volume)Ordered By: Aravind Chandler on 07-10-2022 CO2 [Moles/Vol] 20.5 mmol/L 22.0-30.0 [facility] Serum or plasma urea nitroge n measurement (mass/volume)Ordered By: Aravind Chandler on 07-10-2022 Urea nitrogen [Mass/Vol] 19 mg/dL 9-23 [facility] Specific gravity Auto test s trip (U) [Rel density]Ordered By: Aravind Chandler on 07-10-2022 Specific gravity (U) [Rel density] 1.012 1.001-1.03 0 [facility] TSH DL <= 0.005 mIU/L QnOrde red By: Aravind Chandler on 07-10-2022 TSH Qn 3.28 m[IU]/L 0.45-5.33 [facility] Urine clarity by refractomet ry automatedOrdered By: Aravind Chandler on 07-10-2022 Clarity Refractometry automated (U) Clear Clear [facility] Urine cocaine detectionOrder ed By: Aravind Chandler on 07-10-2022 Cocaine Ql (U) Negative Negative [facility] Urine glucose measurement by automated test strip (mass/volume)Ordered By: Aravind Chandler on 07-10-2022 Glucose Auto test strip (U) [Mass/Vol] 100 mg/dL Normal [facility] Urine hemoglobin detection b y automated test stripOrdered By: Aravind Chandler on 07-10-2022 Hemoglobin Auto test strip Ql (U) Negative Negative [facility] Urine leukocyte esterase det ection by automated test stripOrdered By: Aravind Chandler on 07-10-2022 Leukocyte esterase Auto test strip Ql (U) Negative Negative [facility] Urobilinogen Auto test strip (U) [Mass/Vol]Ordered By: Aravind Chandler on 07-10-2022 Urobilinogen (U) [Mass/Vol] Normal mg/dL Normal [facility] WBC Auto (Bld) [#/Vol]Ordere d By: Aravind Chandler on 07-10-2022 WBC (Bld) [#/Vol] 11.1 10*3/uL 3.8-11.6 [facility] pH Auto test strip (U)Ordere d By: Aravind Chandler on 07-10-2022 pH (U) 5.0 [pH] 5.0-9.0 [facility] PRBC LEUKOREDUCEDon 07-04-19 ABO and Rh group Nom (Bld) Cross Match Result Compatible Unit Blood Type A Pos Unit Number [id number] Status Information Transfused Product ID Red Blood Cells Product Code [id number] Cross Match Result Compatible Unit Blood Type A Pos Unit Number [id number] Status Information Transfused Product ID Red Blood Cells Product Code [id number] Normal [facility] Comment on above: Performed By: #### P RBC #### [facility] [address] [place] [address] Dr. Laila Feliciano CASE MANAGEMon 07-02-2022 CASE MANAGEM Normal [facility] CBC panel Auto (Bld)on 07-02 Erythrocyte distribution width (RBC) [Ratio] 17.4 % High 11.5-15.0 [facility] Comment on above: Order Comment: Speci men Type: BLOOD SPECIMENOrdering Facility: [facility] Address: [address] [place] [id number] Performed By: #### 5 8410-2 ####[facility] LABCLIA [id number] [address] [address] [place] Hematocrit (Bld) [Volume fraction] 33.6 % Low 36.0-46.0 [facility] Comment on above: Order Comment: Speci men Type: BLOOD SPECIMENOrdering Facility: [facility] Address: [address] [address] Performed By: #### 5 8410-2 ####[facility] [id number] [address] [place] Hemoglobin (Bld) [Mass/Vol] 10.8 g/dL Low 11.5-15.5 [facility] Comment on above: Order Comment: Speci men Type: BLOOD SPECIMENOrdering Facility: [facility] Address: [address] [place] [address] Performed By: #### 5 8410-2 ####[facility] [id number] [address] [place] MCH (RBC) [Entitic mass] 27.6 pg Normal 26.0-34.0 [facility] Comment on above: Order Comment: Speci men Type: BLOOD SPECIMENOrdering Facility: [facility] Address: [address] Performed By: #### 5 8410-2 ####[facility] [id number] [address] [place] MCHC (RBC) [Mass/Vol] 32.1 g/dL Normal 30.5-36.0 [facility] Comment on above: Order Comment: Speci men Type: BLOOD SPECIMENOrdering Facility: [facility] Address: [address] Performed By: #### 5 8410-2 ####[facility] [id number] [address] [place] MCV (RBC) [Entitic vol] 85.9 fL Normal 80.0-100.0 [facility] Comment on above: Order Comment: Speci men Type: BLOOD SPECIMENOrdering Facility: [facility] Address: [address] [place], [place] [address] Performed By: #### 5 8410-2 ####[facility] LABCLIA [id number] [place] [address] [place] Nucleated RBC (Bld) [#/Vol] 10*3/uL Normal <0.01 [facility] Comment on above: Order Comment: Speci men Type: BLOOD SPECIMENOrdering Facility: [facility] Address: [address] [place] [address] Performed By: #### 5 8410-2 ####[facility] LABIA [id number] [place] [address] [place] Platelet mean volume (Bld) [Entitic vol] 9.8 fL Normal 9.0-12.7 [facility] Comment on above: Order Comment: Speci men Type: BLOOD SPECIMENOrdering Facility: [facility] Address: [address] [place] [address] Performed By: #### 5 8410-2 ####[facility] LABIA [id number] [place] [address] [place] Platelets (Bld) [#/Vol] 308 10*3/uL Normal 150-400 [facility] Comment on above: Order Comment: Speci men Type: BLOOD SPECIMENOrdering Facility: [facility] Address: [address] [place] [address] Performed By: #### 5 8410-2 ####[facility] LABIA [id number] [place] [address] [place] RBC (Bld) [#/Vol] 3.91 10*6/uL Normal 3.90-5.20 [facility] Comment on above: Order Comment: Speci men Type: BLOOD SPECIMENOrdering Facility: [facility] Address: [address] [place] [address] Performed By: #### 5 8410-2 ####[facility] LABIA [id number] [place] [address] [place] WBC (Bld) [#/Vol] 11.43 10*3/uL High 3.70-11.00 [facility] Comment on above: Order Comment: Speci men Type: BLOOD SPECIMENOrdering Facility: [facility] Address: [address] [place], [place] [address] Performed By: #### 5 8410-2 ####[facility] LABCLIA [id number] [place] [address] [place] CNDSon 07-02-2022 CNDS Normal [facility] CONSULT PROGon 07-02-2022 CONSULT PROG Normal [facility] Comprehensive metabolic 2000 panelon 07-02-2022 Albumin [Mass/Vol] 3.4 g/dL Low 3.9-4.9 [facility] Comment on above: Order Comment: Speci men Type: BLOOD SPECIMENOrdering Facility: [facility] Address: [address] [place], [place] [address] Performed By: #### 2 4323-8 ####[facility] LABCLIA [id number] [place] [address] [place] ALP [Catalytic activity/Vol] 114 U/L Normal 34-123 [facility] Comment on above: Order Comment: Speci men Type: BLOOD SPECIMENOrdering Facility: [facility] Address: [address] [place], [place] [address] Performed By: #### 2 4323-8 ####[facility] LABCLIA [id number] [place] [address] [place] ALT [Catalytic activity/Vol] 16 U/L Normal 7-38 [facility] Comment on above: Order Comment: Speci men Type: BLOOD SPECIMENOrdering Facility: [facility] Address: [address] [place], [place] [address] Performed By: #### 2 4323-8 ####[facility] LABCLIA [id number] [place] [address] [place] Anion gap [Moles/Vol] 9 mmol/L Normal 9-18 [facility] Comment on above: Order Comment: Speci men Type: BLOOD SPECIMENOrdering Facility: [facility] Address: [address] [address] Performed By: #### 2 4323-8 ####[facility] LABCLIA [id number] [place] [address] [place] AST [Catalytic activity/Vol] 13 U/L Normal 13-35 [facility] Comment on above: Order Comment: Speci men Type: BLOOD SPECIMENOrdering Facility: [facility] Address: [address] [address] Performed By: #### 2 4323-8 ####[facility] LABCLIA [id number] [place] [address] [place] Bilirubin [Mass/Vol] 0.3 mg/dL Normal 0.2-1.3 [facility] Comment on above: Order Comment: Speci men Type: BLOOD SPECIMENOrdering Facility: [facility] Address: [address] [address] Performed By: #### 2 4323-8 ####[facility] LABCLIA [id number] [place] [address] [place] Calcium [Mass/Vol] 8.3 mg/dL Low 8.5-10.2 [facility] Comment on above: Order Comment: Speci men Type: BLOOD SPECIMENOrdering Facility: [facility] Address: [address] Performed By: #### 2 4323-8 ####[facility] LABCLIA [id number] [place] [address] [place] Chloride [Moles/Vol] 99 mmol/L Normal 97-105 [facility] Comment on above: Order Comment: Speci men Type: BLOOD SPECIMENOrdering Facility: [facility] Address: [address] [place] [address] Performed By: #### 2 4323-8 ####[facility] LABCLIA [id number] [place] [address] [place] CO2 [Moles/Vol] 25 mmol/L Normal 22-30 [facility] Comment on above: Order Comment: Speci men Type: BLOOD SPECIMENOrdering Facility: [facility] Address: [address] [place] [address] Performed By: #### 2 4323-8 ####[facility] LABCLIA [id number] [place] [address] [place] Creatinine [Mass/Vol] 1.88 mg/dL High 0.58-0.96 [facility] Comment on above: Order Comment: Speci men Type: BLOOD SPECIMENOrdering Facility: [facility] Address: [address] [place] [address] Performed By: #### 2 4323-8 ####[facility] LABIA [id number] [place] [address] [place] ESTIMATED GLOMERULAR FILTRATION RATE 35 mL/min/1.73m??? Low >=60 [facility] Comment on above: Order Comment: Speci men Type: BLOOD SPECIMENOrdering Facility: [facility] Address: [address] [place] [address] Result Comment: Isabel mated Glomerular Filtration Rate (eGFR) is calculated using the 2020 CKD-EPI creatinine equation. This equation utilizes serum creatinine, sex, and age as parameters. The creatinine assay has traceable calibration to isotope dilution-mass spectrometry. Refer to KDIGO guidelines for clinical interpretation. In patients with unstable renal function, e.g. those with acute kidney injury, the eGFR may not accurately reflect actual GFR. Performed By: #### 2 4323-8 ####[facility] LABCLIA [id number] [place] [address] [place] Glucose [Mass/Vol] 189 mg/dL High 74-99 [facility] Comment on above: Order Comment: Speci men Type: BLOOD SPECIMENOrdering Facility: [facility] Address: [address] [place] [address] Result Comment: The [place] [employer] (ADA) provides guidance for cutoff values for fasting glucose and random glucose. The ADA defines fasting as no caloric intake for at least 8 hours. Fasting plasma glucose results between 100 to 125 mg/dL indicate increased risk for diabetes (prediabetes).Fasting plasma glucose results greater than or equal to 126 mg/dL meet the criteria for diagnosis of diabetes. In the absence of unequivocal hyperglycemia, results should be confirmed by repeat testing. In a patient with classic symptoms of hyperglycemia or hyperglycemic crisis, random plasma glucose results greater than or equal to 200 mg/dL meet the criteria for diagnosis of diabetes.Reference: Standards of Medical Care in Diabetes 2016, [place] [employer]. Diabetes Care. 2016.39(Suppl 1). Performed By: #### 2 4323-8 ####[facility] LABCLIA [id number] [place] [address] [place] Potassium [Moles/Vol] 4.9 mmol/L Normal 3.7-5.1 [facility] Comment on above: Order Comment: Speci men Type: BLOOD SPECIMENOrdering Facility: [facility] Address: [address] [address] Performed By: #### 2 4323-8 ####[facility] LABCLIA [id number] [place] [address] [place] Protein [Mass/Vol] 6.5 g/dL Normal 6.3-8.0 [facility] Comment on above: Order Comment: Speci men Type: BLOOD SPECIMENOrdering Facility: [facility] Address: [address] [address] Performed By: #### 2 4323-8 ####[facility] LABCLIA [id number] [place] [address] [place] Sodium [Moles/Vol] 133 mmol/L Low 136-144 [facility] Comment on above: Order Comment: Speci men Type: BLOOD SPECIMENOrdering Facility: [facility] Address: [address] Performed By: #### 2 4323-8 ####[facility] LABCLIA [id number] [place] [address] [place] Urea nitrogen [Mass/Vol] 11 mg/dL Normal 7-21 [facility] Comment on above: Order Comment: Speci men Type: BLOOD SPECIMENOrdering Facility: [facility] Address: [address] Performed By: #### 2 4323-8 ####[facility] LABIA [id number] [place] [address] [place] ANES POSTPROC EVALon 023 ANES POSTPROC EVAL Normal [facility] ANES PRE-OPon 07-01-2022 ANES PRE-OP Normal [facility] CBC panel Auto (Bld)on 07-01 Erythrocyte distribution width (RBC) [Ratio] 17.3 % High 11.5-15.0 [facility] Comment on above: Order Comment: Speci men Type: BLOOD SPECIMENOrdering Facility: [facility] Address: [address] [place], [place] [address] Performed By: #### 5 8410-2 ####[facility] LABCLIA [id number] [place] [address] [place] Hematocrit (Bld) [Volume fraction] 34.0 % Low 36.0-46.0 [facility] Comment on above: Order Comment: Speci men Type: BLOOD SPECIMENOrdering Facility: [facility] Address: [address] [place], [place] [address] Performed By: #### 5 8410-2 ####[facility] LABCLIA [id number] [place] [address] [place] Hemoglobin (Bld) [Mass/Vol] 10.8 g/dL Low 11.5-15.5 [facility] Comment on above: Order Comment: Speci men Type: BLOOD SPECIMENOrdering Facility: [facility] Address: [address] Performed By: #### 5 8410-2 ####[facility] LABIA [id number] [address] [place] MCH (RBC) [Entitic mass] 27.4 pg Normal 26.0-34.0 [facility] Comment on above: Order Comment: Speci men Type: BLOOD SPECIMENOrdering Facility: [facility] Address: [address] Performed By: #### 5 8410-2 ####[facility] LABIA [id number] [address] [place] MCHC (RBC) [Mass/Vol] 31.8 g/dL Normal 30.5-36.0 [facility] Comment on above: Order Comment: Speci men Type: BLOOD SPECIMENOrdering Facility: [facility] Address: [address] Performed By: #### 5 8410-2 ####[facility] LABIA [id number] [address] [place] MCV (RBC) [Entitic vol] 86.3 fL Normal 80.0-100.0 [facility] Comment on above: Order Comment: Speci men Type: BLOOD SPECIMENOrdering Facility: [facility] Address: [address] Performed By: #### 5 8410-2 ####[facility] LABIA [id number] [address] [place] Nucleated RBC (Bld) [#/Vol] 10*3/uL Normal <0.01 [facility] Comment on above: Order Comment: Speci men Type: BLOOD SPECIMENOrdering Facility: [facility] Address: [address] Performed By: #### 5 8410-2 ####[facility] LABCLIA [id number] [place] [address] [place] Platelet mean volume (Bld) [Entitic vol] 9.9 fL Normal 9.0-12.7 [facility] Comment on above: Order Comment: Speci men Type: BLOOD SPECIMENOrdering Facility: [facility] Address: [address] [place], [place] [address] Performed By: #### 5 8410-2 ####[facility] LABIA [id number] [place] [address] [place] Platelets (Bld) [#/Vol] 323 10*3/uL Normal 150-400 [facility] Comment on above: Order Comment: Speci men Type: BLOOD SPECIMENOrdering Facility: [facility] Address: [address] [place], [place] [address] Performed By: #### 5 8410-2 ####[facility] LABIA [id number] [place] [address] [place] RBC (Bld) [#/Vol] 3.94 10*6/uL Normal 3.90-5.20 [facility] Comment on above: Order Comment: Speci men Type: BLOOD SPECIMENOrdering Facility: [facility] Address: [address] [place] [address] Performed By: #### 5 8410-2 ####[facility] LABCLIA [id number] [place] [address] [place] WBC (Bld) [#/Vol] 11.94 10*3/uL High 3.70-11.00 [facility] Comment on above: Order Comment: Speci men Type: BLOOD SPECIMENOrdering Facility: [facility] Address: [address] [place], [place] [address] Performed By: #### 5 8410-2 ####[facility] LABCLIA [id number] [place] [address] [place] Erythrocyte distribution width (RBC) [Ratio] 18.0 % High 11.5-15.0 [facility] Comment on above: Order Comment: Speci men Type: BLOOD SPECIMENOrdering Facility: [facility] Address: [address] [place] [address] Performed By: #### 5 8410-2 ####[facility] LABIA [id number] [place] [address] [place] Hematocrit (Bld) [Volume fraction] 34.9 % Low 36.0-46.0 [facility] Comment on above: Order Comment: Speci men Type: BLOOD SPECIMENOrdering Facility: [facility] Address: [address] [place] [address] Performed By: #### 5 8410-2 ####[facility] LABIA [id number] [address] [place] Hemoglobin (Bld) [Mass/Vol] 11.0 g/dL Low 11.5-15.5 [facility] Comment on above: Order Comment: Speci men Type: BLOOD SPECIMENOrdering Facility: [facility] Address: [address] [place] [address] Performed By: #### 5 8410-2 ####[facility] LABIA [id number] [place] [address] [place] MCH (RBC) [Entitic mass] 27.7 pg Normal 26.0-34.0 [facility] Comment on above: Order Comment: Speci men Type: BLOOD SPECIMENOrdering Facility: [facility] Address: [address] [place] [address] Performed By: #### 5 8410-2 ####[facility] LABCLIA [id number] [address] [place] MCHC (RBC) [Mass/Vol] 31.5 g/dL Normal 30.5-36.0 [facility] Comment on above: Order Comment: Speci men Type: BLOOD SPECIMENOrdering Facility: [facility] Address: [address] Performed By: #### 5 8410-2 ####[facility] LABIA [id number] [address] [place] MCV (RBC) [Entitic vol] 87.9 fL Normal 80.0-100.0 [facility] Comment on above: Order Comment: Speci men Type: BLOOD SPECIMENOrdering Facility: [facility] Address: [address] Performed By: #### 5 8410-2 ####[facility] [id number] [place] [address] [place] Nucleated RBC (Bld) [#/Vol] 10*3/uL Normal <0.01 [facility] Comment on above: Order Comment: Speci men Type: BLOOD SPECIMENOrdering Facility: [facility] Address: [address] [place], [place] [address] Performed By: #### 5 8410-2 ####[facility] LABIA [id number] [place] [address] [place] Platelet mean volume (Bld) [Entitic vol] 10.0 fL Normal 9.0-12.7 [facility] Comment on above: Order Comment: Speci men Type: BLOOD SPECIMENOrdering Facility: [facility] Address: [address] Performed By: #### 5 8410-2 ####[facility] LABIA [id number] [place] [address] [place] Platelets (Bld) [#/Vol] 341 10*3/uL Normal 150-400 [facility] Comment on above: Order Comment: Speci men Type: BLOOD SPECIMENOrdering Facility: [facility] Address: [address] [place] [address] Performed By: #### 5 8410-2 ####[facility] LABCLIA [id number] [place] [address] [place] RBC (Bld) [#/Vol] 3.97 10*6/uL Normal 3.90-5.20 [facility] Comment on above: Order Comment: Speci men Type: BLOOD SPECIMENOrdering Facility: [facility] Address: [address] Performed By: #### 5 8410-2 ####[facility] LABIA [id number] [place] [address] [place] WBC (Bld) [#/Vol] 9.56 10*3/uL Normal 3.70-11.00 [facility] Comment on above: Order Comment: Speci men Type: BLOOD SPECIMENOrdering Facility: [facility] Address: [address] [place], [place] [address] Performed By: #### 5 8410-2 ####[facility] LABIA [id number] [place] [address] [place] Erythrocyte distribution width (RBC) [Ratio] 17.5 % High 11.5-15.0 [facility] Comment on above: Order Comment: Speci men Type: BLOOD SPECIMENOrdering Facility: [facility] Address: [address] [place], [place] [address] Performed By: #### 5 8410-2 ####[facility] LABIA [id number] [place] [address] [place] Hematocrit (Bld) [Volume fraction] 31.1 % Low 36.0-46.0 [facility] Comment on above: Order Comment: Speci men Type: BLOOD SPECIMENOrdering Facility: [facility] Address: [address] [place], [place] [address] Performed By: #### 5 8410-2 ####[facility] LABIA [id number] [place] [address] [place] Hemoglobin (Bld) [Mass/Vol] 9.7 g/dL Low 11.5-15.5 [facility] Comment on above: Order Comment: Speci men Type: BLOOD SPECIMENOrdering Facility: [facility] Address: [address] [place] [address] Performed By: #### 5 8410-2 ####[facility] [id number] [address] [place] MCH (RBC) [Entitic mass] 27.4 pg Normal 26.0-34.0 [facility] Comment on above: Order Comment: Speci men Type: BLOOD SPECIMENOrdering Facility: [facility] Address: [address] [place] [address] Performed By: #### 5 8410-2 ####[facility] [id number] [address] STATES OF [facility] MCHC (RBC) [Mass/Vol] 31.2 g/dL Normal 30.5-36.0 [facility] Comment on above: Order Comment: Speci men Type: BLOOD SPECIMENOrdering Facility: [facility] Address: [address] [place], [place] [address] Performed By: #### 5 8410-2 ####[facility] [id number] [place] [address] [place] MCV (RBC) [Entitic vol] 87.9 fL Normal 80.0-100.0 [facility] Comment on above: Order Comment: Speci men Type: BLOOD SPECIMENOrdering Facility: [facility] Address: [address] [place], [place] [address] Performed By: #### 5 8410-2 ####[facility] [id number] [place] [address] [place] Nucleated RBC (Bld) [#/Vol] 10*3/uL Normal <0.01 [facility] Comment on above: Order Comment: Speci men Type: BLOOD SPECIMENOrdering Facility: [facility] Address: [address] [place], [place] [address] Performed By: #### 5 8410-2 ####[facility] LABCLIA [id number] [place] [address] [place] Platelet mean volume (Bld) [Entitic vol] 9.8 fL Normal 9.0-12.7 [facility] Comment on above: Order Comment: Speci men Type: BLOOD SPECIMENOrdering Facility: [facility] Address: [address] [place], [place] [address] Performed By: #### 5 8410-2 ####[facility] LABCLIA [id number] [place] [address] [place] Platelets (Bld) [#/Vol] 323 10*3/uL Normal 150-400 [facility] Comment on above: Order Comment: Speci men Type: BLOOD SPECIMENOrdering Facility: [facility] Address: [address] [place], [place] [address] Performed By: #### 5 8410-2 ####[facility] LABCLIA [id number] [place] [address] [place] RBC (Bld) [#/Vol] 3.54 10*6/uL Low 3.90-5.20 [facility] Comment on above: Order Comment: Speci men Type: BLOOD SPECIMENOrdering Facility: [facility] Address: [address] [place], [place] [address] Performed By: #### 5 8410-2 ####[facility] LABCLIA [id number] [place] [address] [place] WBC (Bld) [#/Vol] 8.15 10*3/uL Normal 3.70-11.00 [facility] Comment on above: Order Comment: Speci men Type: BLOOD SPECIMENOrdering Facility: [facility] Address: [address] Performed By: #### 5 8410-2 ####[facility] LABCLIA [id number] [place] [address] [place] CONSULT PROGon 07-01-2022 CONSULT PROG Normal [facility] metabolic 2000 panelon 07-01-2022 Albumin [Mass/Vol] 3.2 g/dL Low 3.9-4.9 [facility] Comment on above: Order Comment: Speci men Type: BLOOD SPECIMENOrdering Facility: [facility] Address: [address] Performed By: #### 2 4323-8 ####[facility] LABCLIA [id number] [place] [address] [place] ALP [Catalytic activity/Vol] 96 U/L Normal 34-123 [facility] Comment on above: Order Comment: Speci men Type: BLOOD SPECIMENOrdering Facility: [facility] Address: [address] Performed By: #### 2 4323-8 ####[facility] LABCLIA [id number] [place] [address] [place] ALT [Catalytic activity/Vol] 17 U/L Normal 7-38 [facility] Comment on above: Order Comment: Speci men Type: BLOOD SPECIMENOrdering Facility: [facility] Address: [address] Performed By: #### 2 4323-8 ####[facility] LABCLIA [id number] [place] [address] [place] Anion gap [Moles/Vol] 7 mmol/L Low 9-18 [facility] Comment on above: Order Comment: Speci men Type: BLOOD SPECIMENOrdering Facility: [facility] Address: [address] Performed By: #### 2 4323-8 ####[facility] LABCLIA [id number] [place] [address] [place] AST [Catalytic activity/Vol] 19 U/L Normal 13-35 [facility] Comment on above: Order Comment: Speci men Type: BLOOD SPECIMENOrdering Facility: [facility] Address: [address] [place] [address] Performed By: #### 2 4323-8 ####[facility] LABCLIA [id number] [place] [address] [place] Bilirubin [Mass/Vol] 0.2 mg/dL Normal 0.2-1.3 [facility] Comment on above: Order Comment: Speci men Type: BLOOD SPECIMENOrdering Facility: [facility] Address: [address] [place] [address] Performed By: #### 2 4323-8 ####[facility] LABCLIA [id number] [place] [address] [place] Calcium [Mass/Vol] 8.3 mg/dL Low 8.5-10.2 [facility] Comment on above: Order Comment: Speci men Type: BLOOD SPECIMENOrdering Facility: [facility] Address: [address] [place] [address] Performed By: #### 2 4323-8 ####[facility] LABCLIA [id number] [place] [address] [place] Chloride [Moles/Vol] 102 mmol/L Normal 97-105 [facility] Comment on above: Order Comment: Speci men Type: BLOOD SPECIMENOrdering Facility: [facility] Address: [address] [place], [place] [address] Performed By: #### 2 4323-8 ####[facility] LABCLIA [id number] [place] [address] [place] CO2 [Moles/Vol] 27 mmol/L Normal 22-30 [facility] Comment on above: Order Comment: Speci men Type: BLOOD SPECIMENOrdering Facility: [facility] Address: [address] [place] [address] Performed By: #### 2 4323-8 ####[facility] LABCLIA [id number] [place] [address] [place] Creatinine [Mass/Vol] 1.98 mg/dL High 0.58-0.96 [facility] Comment on above: Order Comment: Speci men Type: BLOOD SPECIMENOrdering Facility: [facility] Address: [address] [place] [address] Performed By: #### 2 4323-8 ####[facility] LABIA [id number] [place] [address] [place] ESTIMATED GLOMERULAR FILTRATION RATE 33 mL/min/1.73m??? Low >=60 [facility] Comment on above: Order Comment: Speci men Type: BLOOD SPECIMENOrdering Facility: [facility] Address: [address] [place] [address] Result Comment: Isabel mated Glomerular Filtration Rate (eGFR) is calculated using the 2020 CKD-EPI creatinine equation. This equation utilizes serum creatinine, sex, and age as parameters. The creatinine assay has traceable calibration to isotope dilution-mass spectrometry. Refer to KDIGO guidelines for clinical interpretation. In patients with unstable renal function, e.g. those with acute kidney injury, the eGFR may not accurately reflect actual GFR. Performed By: #### 2 4323-8 ####[facility] LABIA [id number] [place] [address] [place] Glucose [Mass/Vol] 106 mg/dL High 74-99 [facility] Comment on above: Order Comment: Speci men Type: BLOOD SPECIMENOrdering Facility: [facility] Address: [address] [place] [address] Result Comment: The [place] [employer] (ADA) provides guidance for cutoff values for fasting glucose and random glucose. The ADA defines fasting as no caloric intake for at least 8 hours. Fasting plasma glucose results between 100 to 125 mg/dL indicate increased risk for diabetes (prediabetes).Fasting plasma glucose results greater than or equal to 126 mg/dL meet the criteria for diagnosis of diabetes. In the absence of unequivocal hyperglycemia, results should be confirmed by repeat testing. In a patient with classic symptoms of hyperglycemia or hyperglycemic crisis, random plasma glucose results greater than or equal to 200 mg/dL meet the criteria for diagnosis of diabetes.Reference: Standards of Medical Care in Diabetes 2016, [place] [employer]. Diabetes Care. 2016.39(Suppl 1). Performed By: #### 2 4323-8 ####[facility] LABCLIA [id number] [place] [address] [place] Potassium [Moles/Vol] 4.3 mmol/L Normal 3.7-5.1 [facility] Comment on above: Order Comment: Speci men Type: BLOOD SPECIMENOrdering Facility: [facility] Address: [address] [place] [address] Performed By: #### 2 4323-8 ####[facility] LABIA [id number] [place] [address] [place] Protein [Mass/Vol] 5.7 g/dL Low 6.3-8.0 [facility] Comment on above: Order Comment: Speci men Type: BLOOD SPECIMENOrdering Facility: [facility] Address: [address] [place] [address] Performed By: #### 2 4323-8 ####[facility] LABCLIA [id number] [place] [address] [place] Sodium [Moles/Vol] 136 mmol/L Normal 136-144 [facility] Comment on above: Order Comment: Speci men Type: BLOOD SPECIMENOrdering Facility: [facility] Address: [address] Performed By: #### 2 4323-8 ####[facility] LABCLIA [id number] [place] [address] [place] Urea nitrogen [Mass/Vol] 9 mg/dL Normal 7-21 [facility] Comment on above: Order Comment: Speci men Type: BLOOD SPECIMENOrdering Facility: [facility] Address: [address] [place] [address] Performed By: #### 2 4323-8 ####[facility] LABCLIA [id number] [place] [address] [place] HISTORY PHYSICALon 3 HISTORY PHYSICAL Normal [facility] Upper GI endoscopyon 023 Upper GI endoscopy Normal [facility] CASE MANAGEMon 06-30-2022 CASE MANAGEM Normal [facility] CBC panel Auto (Bld)on 06-30 Erythrocyte distribution width (RBC) [Ratio] 17.5 % High 11.5-15.0 [facility] Comment on above: Order Comment: Speci men Type: BLOOD SPECIMENOrdering Facility: [facility] Address: [address] Performed By: #### 5 8410-2 ####[facility] LABCLIA [id number] [place] [address] [place] Hematocrit (Bld) [Volume fraction] 31.8 % Low 36.0-46.0 [facility] Comment on above: Order Comment: Speci men Type: BLOOD SPECIMENOrdering Facility: [facility] Address: [address] Performed By: #### 5 8410-2 ####[facility] LABCLIA [id number] [place] [address] [place] Hemoglobin (Bld) [Mass/Vol] 9.9 g/dL Low 11.5-15.5 [facility] Comment on above: Order Comment: Speci men Type: BLOOD SPECIMENOrdering Facility: [facility] Address: [address] [place], [place] [address] Performed By: #### 5 8410-2 ####[facility] [id number] [place] [address] [place] MCH (RBC) [Entitic mass] 27.2 pg Normal 26.0-34.0 [facility] Comment on above: Order Comment: Speci men Type: BLOOD SPECIMENOrdering Facility: [facility] Address: [address] [place] [address] Performed By: #### 5 8410-2 ####[facility] [id number] [address] STATES OF [facility] MCHC (RBC) [Mass/Vol] 31.1 g/dL Normal 30.5-36.0 [facility] Comment on above: Order Comment: Speci men Type: BLOOD SPECIMENOrdering Facility: [facility] Address: [address] [place] [address] Performed By: #### 5 8410-2 ####[facility] [id number] [address] STATES OF [facility] MCV (RBC) [Entitic vol] 87.4 fL Normal 80.0-100.0 [facility] Comment on above: Order Comment: Speci men Type: BLOOD SPECIMENOrdering Facility: [facility] Address: [address] [place] [address] Performed By: #### 5 8410-2 ####[facility] [id number] [address] [place] Nucleated RBC (Bld) [#/Vol] 10*3/uL Normal <0.01 [facility] Comment on above: Order Comment: Speci men Type: BLOOD SPECIMENOrdering Facility: [facility] Address: [address] [place] [address] Performed By: #### 5 8410-2 ####[facility] [id number] [address] [place] Platelet mean volume (Bld) [Entitic vol] 9.3 fL Normal 9.0-12.7 [facility] Comment on above: Order Comment: Speci men Type: BLOOD SPECIMENOrdering Facility: [facility] Address: [address] [place], [place] [address] Performed By: #### 5 8410-2 ####[facility] LABCLIA [id number] [place] [address] [place] Platelets (Bld) [#/Vol] 332 10*3/uL Normal 150-400 [facility] Comment on above: Order Comment: Speci men Type: BLOOD SPECIMENOrdering Facility: [facility] Address: [address] [place], [place] [address] Performed By: #### 5 8410-2 ####[facility] LABIA [id number] [place] [address] [place] RBC (Bld) [#/Vol] 3.64 10*6/uL Low 3.90-5.20 [facility] Comment on above: Order Comment: Speci men Type: BLOOD SPECIMENOrdering Facility: [facility] Address: [address] [place], [place] [address] Performed By: #### 5 8410-2 ####[facility] LABIA [id number] [place] [address] [place] WBC (Bld) [#/Vol] 8.90 10*3/uL Normal 3.70-11.00 [facility] Comment on above: Order Comment: Speci men Type: BLOOD SPECIMENOrdering Facility: [facility] Address: [address] [place], [place] [address] Performed By: #### 5 8410-2 ####[facility] LABIA [id number] [place] [address] [place] Erythrocyte distribution width (RBC) [Ratio] 17.5 % High 11.5-15.0 [facility] Comment on above: Order Comment: Speci men Type: BLOOD SPECIMENOrdering Facility: [facility] Address: [address] [place] [address] Performed By: #### 5 8410-2 ####[facility] LABIA [id number] [address] [place] Hematocrit (Bld) [Volume fraction] 27.6 % Low 36.0-46.0 [facility] Comment on above: Order Comment: Speci men Type: BLOOD SPECIMENOrdering Facility: [facility] Address: [address] [place] [address] Performed By: #### 5 8410-2 ####[facility] LABIA [id number] [address] [place] Hemoglobin (Bld) [Mass/Vol] 8.8 g/dL Low 11.5-15.5 [facility] Comment on above: Order Comment: Speci men Type: BLOOD SPECIMENOrdering Facility: [facility] Address: [address] Performed By: #### 5 8410-2 ####[facility] LABIA [id number] [place] [address] [place] MCH (RBC) [Entitic mass] 28.1 pg Normal 26.0-34.0 [facility] Comment on above: Order Comment: Speci men Type: BLOOD SPECIMENOrdering Facility: [facility] Address: [address] Performed By: #### 5 8410-2 ####[facility] LABIA [id number] [address] [place] MCHC (RBC) [Mass/Vol] 31.9 g/dL Normal 30.5-36.0 [facility] Comment on above: Order Comment: Speci men Type: BLOOD SPECIMENOrdering Facility: [facility] Address: [address] Performed By: #### 5 8410-2 ####[facility] LABIA [id number] [place] [address] [place] MCV (RBC) [Entitic vol] 88.2 fL Normal 80.0-100.0 [facility] Comment on above: Order Comment: Speci men Type: BLOOD SPECIMENOrdering Facility: [facility] Address: [address] [place], [place] [address] Performed By: #### 5 8410-2 ####[facility] LABIA [id number] [place] [address] [place] Nucleated RBC (Bld) [#/Vol] 10*3/uL Normal <0.01 [facility] Comment on above: Order Comment: Speci men Type: BLOOD SPECIMENOrdering Facility: [facility] Address: [address] [place], [place] [address] Performed By: #### 5 8410-2 ####[facility] [id number] [place] [address] [place] Platelet mean volume (Bld) [Entitic vol] 9.9 fL Normal 9.0-12.7 [facility] Comment on above: Order Comment: Speci men Type: BLOOD SPECIMENOrdering Facility: [facility] Address: [address] [place], [place] [address] Performed By: #### 5 8410-2 ####[facility] [id number] [place] [address] [place] Platelets (Bld) [#/Vol] 299 10*3/uL Normal 150-400 [facility] Comment on above: Order Comment: Speci men Type: BLOOD SPECIMENOrdering Facility: [facility] Address: [address] [place], [place] [address] Performed By: #### 5 8410-2 ####[facility] LABIA [id number] [place] [address] [place] RBC (Bld) [#/Vol] 3.13 10*6/uL Low 3.90-5.20 [facility] Comment on above: Order Comment: Speci men Type: BLOOD SPECIMENOrdering Facility: [facility] Address: [address] [place] [address] Performed By: #### 5 8410-2 ####[facility] LABCLIA [id number] [place] [address] [place] WBC (Bld) [#/Vol] 8.48 10*3/uL Normal 3.70-11.00 [facility] Comment on above: Order Comment: Speci men Type: BLOOD SPECIMENOrdering Facility: [facility] Address: [address] [place] [address] Performed By: #### 5 8410-2 ####[facility] LABCLIA [id number] [place] [address] [place] Erythrocyte distribution width (RBC) [Ratio] 18.3 % High 11.5-15.0 [facility] Comment on above: Order Comment: Speci men Type: BLOOD SPECIMENOrdering Facility: [facility] Address: [address] [place] [address] Performed By: #### 5 8410-2 ####[facility] LABCLIA [id number] [place] [address] [place] Hematocrit (Bld) [Volume fraction] 32.7 % Low 36.0-46.0 [facility] Comment on above: Order Comment: Speci men Type: BLOOD SPECIMENOrdering Facility: [facility] Address: [address] [place] [address] Performed By: #### 5 8410-2 ####[facility] LABCLIA [id number] [place] [address] [place] Hemoglobin (Bld) [Mass/Vol] 10.2 g/dL Low 11.5-15.5 [facility] Comment on above: Order Comment: Speci men Type: BLOOD SPECIMENOrdering Facility: [facility] Address: [address] [place] [address] Performed By: #### 5 8410-2 ####[facility] LABIA [id number] [address] STATES OF [facility] MCH (RBC) [Entitic mass] 27.3 pg Normal 26.0-34.0 [facility] Comment on above: Order Comment: Speci men Type: BLOOD SPECIMENOrdering Facility: [facility] Address: [address] [place] [address] Performed By: #### 5 8410-2 ####[facility] LABIA [id number] [address] [place] MCHC (RBC) [Mass/Vol] 31.2 g/dL Normal 30.5-36.0 [facility] Comment on above: Order Comment: Speci men Type: BLOOD SPECIMENOrdering Facility: [facility] Address: [address] [place] [address] Performed By: #### 5 8410-2 ####[facility] LABIA [id number] [address] [place] MCV (RBC) [Entitic vol] 87.7 fL Normal 80.0-100.0 [facility] Comment on above: Order Comment: Speci men Type: BLOOD SPECIMENOrdering Facility: [facility] Address: [address] [place], [place] [address] Performed By: #### 5 8410-2 ####[facility] [id number] [place] [address] [place] Nucleated RBC (Bld) [#/Vol] 0.02 10*3/uL High <0.01 [facility] Comment on above: Order Comment: Speci men Type: BLOOD SPECIMENOrdering Facility: [facility] Address: [address] [place], [place] [address] Performed By: #### 5 8410-2 ####[facility] LABIA [id number] [place] [address] [place] Platelet mean volume (Bld) [Entitic vol] 9.1 fL Normal 9.0-12.7 [facility] Comment on above: Order Comment: Speci men Type: BLOOD SPECIMENOrdering Facility: [facility] Address: [address] [place] [address] Performed By: #### 5 8410-2 ####[facility] LABIA [id number] [place] [address] [place] Platelets (Bld) [#/Vol] 355 10*3/uL Normal 150-400 [facility] Comment on above: Order Comment: Speci men Type: BLOOD SPECIMENOrdering Facility: [facility] Address: [address] [place] [address] Performed By: #### 5 8410-2 ####[facility] LABIA [id number] [place] [address] [place] RBC (Bld) [#/Vol] 3.73 10*6/uL Low 3.90-5.20 [facility] Comment on above: Order Comment: Speci men Type: BLOOD SPECIMENOrdering Facility: [facility] Address: [address] [place] [phone] Performed By: #### 5 8410-2 ####[facility] LABIA [id number] [place] [address] [place] WBC (Bld) [#/Vol] 11.13 10*3/uL High 3.70-11.00 [facility] Comment on above: Order Comment: Speci men Type: BLOOD SPECIMENOrdering Facility: [facility] Address: [address] [place] [phone] Performed By: #### 5 8410-2 ####[facility] LABIA [id number] [place] [address] [place] CONSULT PROGon 06-30-2022 CONSULT PROG Normal [facility] Comprehensive metabolic 2000 panelon 06-30-2022 Albumin [Mass/Vol] 3.2 g/dL Low 3.9-4.9 [facility] Comment on above: Order Comment: Speci men Type: BLOOD SPECIMENOrdering Facility: [facility] Address: [address] [place], [place] [address] Performed By: #### 2 4323-8 ####[facility] LABCLIA [id number] [place] [address] [place] ALP [Catalytic activity/Vol] 97 U/L Normal 34-123 [facility] Comment on above: Order Comment: Speci men Type: BLOOD SPECIMENOrdering Facility: [facility] Address: [address] [place] [address] Performed By: #### 2 4323-8 ####[facility] LABCLIA [id number] [place] [address] [place] ALT [Catalytic activity/Vol] 23 U/L Normal 7-38 [facility] Comment on above: Order Comment: Speci men Type: BLOOD SPECIMENOrdering Facility: [facility] Address: [address] [place] [address] Performed By: #### 2 4323-8 ####[facility] LABCLIA [id number] [place] [address] [place] Anion gap [Moles/Vol] 6 mmol/L Low 9-18 [facility] Comment on above: Order Comment: Speci men Type: BLOOD SPECIMENOrdering Facility: [facility] Address: [address] [place], [place] [address] Performed By: #### 2 4323-8 ####[facility] LABCLIA [id number] [place] [address] [place] AST [Catalytic activity/Vol] 24 U/L Normal 13-35 [facility] Comment on above: Order Comment: Speci men Type: BLOOD SPECIMENOrdering Facility: [facility] Address: [address] Performed By: #### 2 4323-8 ####[facility] LABCLIA [id number] [place] [address] [place] Bilirubin [Mass/Vol] 0.2 mg/dL Normal 0.2-1.3 [facility] Comment on above: Order Comment: Speci men Type: BLOOD SPECIMENOrdering Facility: [facility] Address: [address] Performed By: #### 2 4323-8 ####[facility] LABCLIA [id number] [place] [address] [place] Calcium [Mass/Vol] 8.5 mg/dL Normal 8.5-10.2 [facility] Comment on above: Order Comment: Speci men Type: BLOOD SPECIMENOrdering Facility: [facility] Address: [address] Performed By: #### 2 4323-8 ####[facility] LABCLIA [id number] [place] [address] [place] Chloride [Moles/Vol] 102 mmol/L Normal 97-105 [facility] Comment on above: Order Comment: Speci men Type: BLOOD SPECIMENOrdering Facility: [facility] Address: [address] Performed By: #### 2 4323-8 ####[facility] LABCLIA [id number] [place] [address] [place] CO2 [Moles/Vol] 26 mmol/L Normal 22-30 [facility] Comment on above: Order Comment: Speci men Type: BLOOD SPECIMENOrdering Facility: [facility] Address: [address] Performed By: #### 2 4323-8 ####[facility] LABCLIA [id number] [place] [address] [place] Creatinine [Mass/Vol] 1.73 mg/dL High 0.58-0.96 [facility] Comment on above: Order Comment: Angel salazar Type: BLOOD SPECIMENOrdering Facility: [facility] Address: [address] [place] [address] Performed By: #### 2 4323-8 ####[facility] LABIA [id number] [address] [place] ESTIMATED GLOMERULAR FILTRATION RATE 39 mL/min/1.73m??? Low >=60 [facility] Comment on above: Order Comment: Angel men Type: BLOOD SPECIMENOrdering Facility: [facility] Address: [address] [place] [address] Result Comment: Isabel mated Glomerular Filtration Rate (eGFR) is calculated using the 2020 CKD-EPI creatinine equation. This equation utilizes serum creatinine, sex, and age as parameters. The creatinine assay has traceable calibration to isotope dilution-mass spectrometry. Refer to KDIGO guidelines for clinical interpretation. In patients with unstable renal function, e.g. those with acute kidney injury, the eGFR may not accurately reflect actual GFR. Performed By: #### 2 4323-8 ####[facility] LABIA [id number] [place] [address] [place] Glucose [Mass/Vol] 239 mg/dL High 74-99 [facility] Comment on above: Order Comment: Speci men Type: BLOOD SPECIMENOrdering Facility: [facility] Address: [address] [address] Result Comment: The [place] Diabetes Association (ADA) provides guidance for cutoff values for fasting glucose and random glucose. The ADA defines fasting as no caloric intake for at least 8 hours. Fasting plasma glucose results between 100 to 125 mg/dL indicate increased risk for diabetes (prediabetes).Fasting plasma glucose results greater than or equal to 126 mg/dL meet the criteria for diagnosis of diabetes. In the absence of unequivocal hyperglycemia, results should be confirmed by repeat testing. In a patient with classic symptoms of hyperglycemia or hyperglycemic crisis, random plasma glucose results greater than or equal to 200 mg/dL meet the criteria for diagnosis of diabetes.Reference: Standards of Medical Care in Diabetes 2016, [place] [employer]. Diabetes Care. 2016.39(Suppl 1). Performed By: #### 2 4323-8 ####[facility] LABCLIA [id number] [place] [address] [place] Potassium [Moles/Vol] 4.3 mmol/L Normal 3.7-5.1 [facility] Comment on above: Order Comment: Speci men Type: BLOOD SPECIMENOrdering Facility: [facility] Address: [address] [place] [address] Performed By: #### 2 4323-8 ####[facility] LABIA [id number] [place] [address] [place] Protein [Mass/Vol] 5.8 g/dL Low 6.3-8.0 [facility] Comment on above: Order Comment: Speci men Type: BLOOD SPECIMENOrdering Facility: [facility] Address: [address] [place] [address] Performed By: #### 2 4323-8 ####[facility] LABCLIA [id number] [place] [address] [place] Sodium [Moles/Vol] 134 mmol/L Low 136-144 [facility] Comment on above: Order Comment: Speci men Type: BLOOD SPECIMENOrdering Facility: [facility] Address: [address] Performed By: #### 2 4323-8 ####[facility] LABIA [id number] [place] [address] [place] Urea nitrogen [Mass/Vol] 10 mg/dL Normal 7-21 [facility] Comment on above: Order Comment: Speci men Type: BLOOD SPECIMENOrdering Facility: [facility] Address: [address] [place], [place] [address] Performed By: #### 2 4323-8 ####[facility] LABCLIA [id number] [place] [address] [place] ECG COMPLETEon 06-30-2022 ECG COMPLETE Normal [facility] TYPE + SCREENon 06-30-2022 ABO A Normal [facility] Comment on above: Order Comment: Speci men Type: BLOOD SPECIMENOrdering Facility: [facility] Address: [address] [place] [address] Performed By: #### T SCR ####CC [facility]IN BLOOD BANKCLIA [id number] [address] OF [facility] HISTORICAL AB SCR STATUS Negative Normal [facility] Comment on above: Order Comment: Speci men Type: BLOOD SPECIMENOrdering Facility: [facility] Address: [address] [place] [address] Performed By: #### T SCR ####CC [facility] BLOOD BANKCLIA [id number] [place] [address] [place] Rh Nom (Bld) Positive Normal [facility] Comment on above: Order Comment: Speci men Type: BLOOD SPECIMENOrdering Facility: [facility] Address: [address] [place] [address] Performed By: #### T SCR ####CC [facility] BLOOD BANKCLIA [id number] [place] [address] [place] TYPE AND SCREEN EXPIRATION 07/03/2022 23:59 Normal [facility] Comment on above: Order Comment: Speci men Type: BLOOD SPECIMENOrdering Facility: [facility] Address: [address] [place], [place] [address] Performed By: #### T SCR ####CC MAIN BLOOD BANKCLIA [id number] [place] [address] [place] CASE MGT INIT ASSESon 01-23- 2023 CASE MGT INIT ASSES Normal [facility] CBC panel Auto (Bld)on 06-29 Erythrocyte distribution width (RBC) [Ratio] 18.5 % High 11.5-15.0 [facility] Comment on above: Order Comment: Speci men Type: BLOOD SPECIMENOrdering Facility: [facility] Address: [address] [place] [address] Performed By: #### 5 8410-2 ####[facility] LABIA [id number] [address] [place] Hematocrit (Bld) [Volume fraction] 25.8 % Low 36.0-46.0 [facility] Comment on above: Order Comment: Speci men Type: BLOOD SPECIMENOrdering Facility: [facility] Address: [address] [place] [address] Performed By: #### 5 8410-2 ####[facility] LABIA [id number] [address] [place] Hemoglobin (Bld) [Mass/Vol] 8.1 g/dL Low 11.5-15.5 [facility] Comment on above: Order Comment: Speci men Type: BLOOD SPECIMENOrdering Facility: [facility] Address: [address] [place] [address] Performed By: #### 5 8410-2 ####[facility] LABIA [id number] [place] [address] [place] MCH (RBC) [Entitic mass] 28.0 pg Normal 26.0-34.0 [facility] Comment on above: Order Comment: Speci men Type: BLOOD SPECIMENOrdering Facility: [facility] Address: [address] [place] [address] Performed By: #### 5 8410-2 ####[facility] LABIA [id number] [place] [address] [place] MCHC (RBC) [Mass/Vol] 31.4 g/dL Normal 30.5-36.0 [facility] Comment on above: Order Comment: Speci men Type: BLOOD SPECIMENOrdering Facility: [facility] Address: [address] [place], [place] [address] Performed By: #### 5 8410-2 ####[facility] LABIA [id number] [address] [place] MCV (RBC) [Entitic vol] 89.3 fL Normal 80.0-100.0 [facility] Comment on above: Order Comment: Speci men Type: BLOOD SPECIMENOrdering Facility: [facility] Address: [address] [place], [place] [address] Performed By: #### 5 8410-2 ####[facility] LABIA [id number] [place] [address] [place] Nucleated RBC (Bld) [#/Vol] 10*3/uL Normal <0.01 [facility] Comment on above: Order Comment: Speci men Type: BLOOD SPECIMENOrdering Facility: [facility] Address: [address] [place], [place] [address] Performed By: #### 5 8410-2 ####[facility] LABIA [id number] [place] [address] [place] Platelet mean volume (Bld) [Entitic vol] 9.6 fL Normal 9.0-12.7 [facility] Comment on above: Order Comment: Speci men Type: BLOOD SPECIMENOrdering Facility: [facility] Address: [address] [place], [place] [address] Performed By: #### 5 8410-2 ####[facility] LABIA [id number] [place] [address] [place] Platelets (Bld) [#/Vol] 289 10*3/uL Normal 150-400 [facility] Comment on above: Order Comment: Speci men Type: BLOOD SPECIMENOrdering Facility: [facility] Address: [address] Performed By: #### 5 8410-2 ####[facility] LABCLIA [id number] [place] [address] [place] RBC (Bld) [#/Vol] 2.89 10*6/uL Low 3.90-5.20 [facility] Comment on above: Order Comment: Speci men Type: BLOOD SPECIMENOrdering Facility: [facility] Address: [address] Performed By: #### 5 8410-2 ####[facility] LABIA [id number] [place] [address] [place] WBC (Bld) [#/Vol] 5.46 10*3/uL Normal 3.70-11.00 [facility] Comment on above: Order Comment: Speci men Type: BLOOD SPECIMENOrdering Facility: [facility] Address: [address] Performed By: #### 5 8410-2 ####[facility] LABIA [id number] [place] [address] [place] Erythrocyte distribution width (RBC) [Ratio] 18.6 % High 11.5-15.0 [facility] Comment on above: Order Comment: Speci men Type: BLOOD SPECIMENOrdering Facility: [facility] Address: [address] Performed By: #### 5 8410-2 ####[facility] LABIA [id number] [place] [address] [place] Hematocrit (Bld) [Volume fraction] 30.0 % Low 36.0-46.0 [facility] Comment on above: Order Comment: Speci men Type: BLOOD SPECIMENOrdering Facility: [facility] Address: [address] Performed By: #### 5 8410-2 ####[facility] LABCLIA [id number] [place] [address] [place] Hemoglobin (Bld) [Mass/Vol] 9.7 g/dL Low 11.5-15.5 [facility] Comment on above: Order Comment: Speci men Type: BLOOD SPECIMENOrdering Facility: [facility] Address: [address] [place] [address] Performed By: #### 5 8410-2 ####[facility] [id number] [address] [place] MCH (RBC) [Entitic mass] 28.3 pg Normal 26.0-34.0 [facility] Comment on above: Order Comment: Speci men Type: BLOOD SPECIMENOrdering Facility: [facility] Address: [address] [place] [address] Performed By: #### 5 8410-2 ####[facility] [id number] [address] [place] MCHC (RBC) [Mass/Vol] 32.3 g/dL Normal 30.5-36.0 [facility] Comment on above: Order Comment: Speci men Type: BLOOD SPECIMENOrdering Facility: [facility] Address: [address] [place] [address] Performed By: #### 5 8410-2 ####[facility] [id number] [place] [address] [place] MCV (RBC) [Entitic vol] 87.5 fL Normal 80.0-100.0 [facility] Comment on above: Order Comment: Speci men Type: BLOOD SPECIMENOrdering Facility: [facility] Address: [address] [place] [address] Performed By: #### 5 8410-2 ####[facility] [id number] [place] [address] [place] Nucleated RBC (Bld) [#/Vol] 10*3/uL Normal <0.01 [facility] Comment on above: Order Comment: Speci men Type: BLOOD SPECIMENOrdering Facility: [facility] Address: [address] [place], [place] [address] Performed By: #### 5 8410-2 ####[facility] LABCLIA [id number] [place] [address] [place] Platelet mean volume (Bld) [Entitic vol] 9.1 fL Normal 9.0-12.7 [facility] Comment on above: Order Comment: Speci men Type: BLOOD SPECIMENOrdering Facility: [facility] Address: [address] [place], [place] [address] Performed By: #### 5 8410-2 ####[facility] LABCLIA [id number] [place] [address] [place] Platelets (Bld) [#/Vol] 330 10*3/uL Normal 150-400 [facility] Comment on above: Order Comment: Speci men Type: BLOOD SPECIMENOrdering Facility: [facility] Address: [address] [place], [place] [address] Performed By: #### 5 8410-2 ####[facility] LABIA [id number] [place] [address] [place] RBC (Bld) [#/Vol] 3.43 10*6/uL Low 3.90-5.20 [facility] Comment on above: Order Comment: Speci men Type: BLOOD SPECIMENOrdering Facility: [facility] Address: [address] [place], [place] [address] Performed By: #### 5 8410-2 ####[facility] LABCLIA [id number] [place] [address] [place] WBC (Bld) [#/Vol] 6.61 10*3/uL Normal 3.70-11.00 [facility] Comment on above: Order Comment: Speci men Type: BLOOD SPECIMENOrdering Facility: [facility] Address: [address] Performed By: #### 5 8410-2 ####[facility] LABIA [id number] [place] [address] [place] Erythrocyte distribution width (RBC) [Ratio] 18.4 % High 11.5-15.0 [facility] Comment on above: Order Comment: Speci men Type: BLOOD SPECIMENOrdering Facility: [facility] Address: [address] Performed By: #### 5 8410-2 ####[facility] LABIA [id number] [place] [address] [place] Hematocrit (Bld) [Volume fraction] 30.6 % Low 36.0-46.0 [facility] Comment on above: Order Comment: Speci men Type: BLOOD SPECIMENOrdering Facility: [facility] Address: [address] [place], [place] [address] Performed By: #### 5 8410-2 ####[facility] LABIA [id number] [place] [address] [place] Hemoglobin (Bld) [Mass/Vol] 9.9 g/dL Low 11.5-15.5 [facility] Comment on above: Order Comment: Speci men Type: BLOOD SPECIMENOrdering Facility: [facility] Address: [address] Performed By: #### 5 8410-2 ####[facility] LABIA [id number] [place] [address] [place] MCH (RBC) [Entitic mass] 28.1 pg Normal 26.0-34.0 [facility] Comment on above: Order Comment: Speci men Type: BLOOD SPECIMENOrdering Facility: [facility] Address: [address] [place], [place] [address] Performed By: #### 5 8410-2 ####[facility] LABIA [id number] [place] [address] [place] MCHC (RBC) [Mass/Vol] 32.4 g/dL Normal 30.5-36.0 [facility] Comment on above: Order Comment: Speci men Type: BLOOD SPECIMENOrdering Facility: [facility] Address: [address] [place] [address] Performed By: #### 5 8410-2 ####[facility] [id number] [place] [address] [place] MCV (RBC) [Entitic vol] 86.9 fL Normal 80.0-100.0 [facility] Comment on above: Order Comment: Speci men Type: BLOOD SPECIMENOrdering Facility: [facility] Address: [address] [place] [address] Performed By: #### 5 8410-2 ####[facility] [id number] [place] [address] [place] Nucleated RBC (Bld) [#/Vol] 10*3/uL Normal <0.01 [facility] Comment on above: Order Comment: Speci men Type: BLOOD SPECIMENOrdering Facility: [facility] Address: [address] [place], [place] [address] Performed By: #### 5 8410-2 ####[facility] [id number] [place] [address] [place] Platelet mean volume (Bld) [Entitic vol] 9.4 fL Normal 9.0-12.7 [facility] Comment on above: Order Comment: Speci men Type: BLOOD SPECIMENOrdering Facility: [facility] Address: [address] [place] [address] Performed By: #### 5 8410-2 ####[facility] [id number] [place] [address] [place] Platelets (Bld) [#/Vol] 354 10*3/uL Normal 150-400 [facility] Comment on above: Order Comment: Speci men Type: BLOOD SPECIMENOrdering Facility: [facility] Address: [address] [place], [place] [address] Performed By: #### 5 8410-2 ####[facility] LABCLIA [id number] [place] [address] [place] RBC (Bld) [#/Vol] 3.52 10*6/uL Low 3.90-5.20 [facility] Comment on above: Order Comment: Speci men Type: BLOOD SPECIMENOrdering Facility: [facility] Address: [address] [place], [place] [address] Performed By: #### 5 8410-2 ####[facility] LABCLIA [id number] [place] [address] [place] WBC (Bld) [#/Vol] 6.74 10*3/uL Normal 3.70-11.00 [facility] Comment on above: Order Comment: Speci men Type: BLOOD SPECIMENOrdering Facility: [facility] Address: [address] [place], [place] [address] Performed By: #### 5 8410-2 ####[facility] LABCLIA [id number] [place] [address] [place] CONSULT PROGon 06-29-2022 CONSULT PROG Normal [facility] Comprehensive metabolic 2000 panelon 06-29-2022 Albumin [Mass/Vol] 3.4 g/dL Low 3.9-4.9 [facility] Comment on above: Order Comment: Speci men Type: BLOOD SPECIMENOrdering Facility: [facility] Address: [address] [place], [place] [address] Performed By: #### 2 4323-8 ####[facility] LABCLIA [id number] [place] [address] [place] ALP [Catalytic activity/Vol] 96 U/L Normal 34-123 [facility] Comment on above: Order Comment: Speci men Type: BLOOD SPECIMENOrdering Facility: [facility] Address: [address] Performed By: #### 2 4323-8 ####[facility] LABCLIA [id number] [place] [address] [place] ALT [Catalytic activity/Vol] 22 U/L Normal 7-38 [facility] Comment on above: Order Comment: Speci men Type: BLOOD SPECIMENOrdering Facility: [facility] Address: [address] Performed By: #### 2 4323-8 ####[facility] LABCLIA [id number] [place] [address] [place] Anion gap [Moles/Vol] 10 mmol/L Normal 9-18 [facility] Comment on above: Order Comment: Speci men Type: BLOOD SPECIMENOrdering Facility: [facility] Address: [address] [place], [place] [address] Performed By: #### 2 4323-8 ####[facility] LABCLIA [id number] [place] [address] [place] AST [Catalytic activity/Vol] 26 U/L Normal 13-35 [facility] Comment on above: Order Comment: Speci men Type: BLOOD SPECIMENOrdering Facility: [facility] Address: [address] Performed By: #### 2 4323-8 ####[facility] LABCLIA [id number] [place] [address] [place] Bilirubin [Mass/Vol] 0.3 mg/dL Normal 0.2-1.3 [facility] Comment on above: Order Comment: Speci men Type: BLOOD SPECIMENOrdering Facility: [facility] Address: [address] Performed By: #### 2 4323-8 ####[facility] LABCLIA [id number] [place] [address] [place] Calcium [Mass/Vol] 8.4 mg/dL Low 8.5-10.2 [facility] Comment on above: Order Comment: Speci men Type: BLOOD SPECIMENOrdering Facility: [facility] Address: [address] [place] [address] Performed By: #### 2 4323-8 ####[facility] LABCLIA [id number] [place] [address] [place] Chloride [Moles/Vol] 105 mmol/L Normal 97-105 [facility] Comment on above: Order Comment: Speci men Type: BLOOD SPECIMENOrdering Facility: [facility] Address: [address] [place] [address] Performed By: #### 2 4323-8 ####[facility] LABCLIA [id number] [place] [address] [place] CO2 [Moles/Vol] 25 mmol/L Normal 22-30 [facility] Comment on above: Order Comment: Speci men Type: BLOOD SPECIMENOrdering Facility: [facility] Address: [address] [place], [place] [address] Performed By: #### 2 4323-8 ####[facility] LABCLIA [id number] [place] [address] [place] Creatinine [Mass/Vol] 1.75 mg/dL High 0.58-0.96 [facility] Comment on above: Order Comment: Speci men Type: BLOOD SPECIMENOrdering Facility: [facility] Address: [address] [place], [place] [address] Performed By: #### 2 4323-8 ####[facility] LABCLIA [id number] [place] [address] [place] ESTIMATED GLOMERULAR FILTRATION RATE 38 mL/min/1.73m??? Low >=60 [facility] Comment on above: Order Comment: Angel salazar Type: BLOOD SPECIMENOrdering Facility: [facility] Address: [address] [address] Result Comment: Isabel mated Glomerular Filtration Rate (eGFR) is calculated using the 2020 CKD-EPI creatinine equation. This equation utilizes serum creatinine, sex, and age as parameters. The creatinine assay has traceable calibration to isotope dilution-mass spectrometry. Refer to KDIGO guidelines for clinical interpretation. In patients with unstable renal function, e.g. those with acute kidney injury, the eGFR may not accurately reflect actual GFR. Performed By: #### 2 4323-8 ####[facility] [id number] [place] [address] [place] Glucose [Mass/Vol] 136 mg/dL High 74-99 [facility] Comment on above: Order Comment: Angel salazar Type: BLOOD SPECIMENOrdering Facility: [facility] Address: [address] [place] [address] Result Comment: The [place] [employer] (ADA) provides guidance for cutoff values for fasting glucose and random glucose. The ADA defines fasting as no caloric intake for at least 8 hours. Fasting plasma glucose results between 100 to 125 mg/dL indicate increased risk for diabetes (prediabetes).Fasting plasma glucose results greater than or equal to 126 mg/dL meet the criteria for diagnosis of diabetes. In the absence of unequivocal hyperglycemia, results should be confirmed by repeat testing. In a patient with classic symptoms of hyperglycemia or hyperglycemic crisis, random plasma glucose results greater than or equal to 200 mg/dL meet the criteria for diagnosis of diabetes.Reference: Standards of Medical Care in Diabetes 2016, [place] [employer]. Diabetes Care. 2016.39(Suppl 1). Performed By: #### 2 4323-8 ####[facility] [id number] [place] [address] [place] Potassium [Moles/Vol] 4.5 mmol/L Normal 3.7-5.1 [facility] Comment on above: Order Comment: Angel salazar Type: BLOOD SPECIMENOrdering Facility: [facility] Address: [address] Performed By: #### 2 4323-8 ####[facility] LABCLIA [id number] [place] [address] [place] Protein [Mass/Vol] 5.9 g/dL Low 6.3-8.0 [facility] Comment on above: Order Comment: Speci men Type: BLOOD SPECIMENOrdering Facility: [facility] Address: [address] Performed By: #### 2 4323-8 ####[facility] LABIA [id number] [place] [address] [place] Sodium [Moles/Vol] 140 mmol/L Normal 136-144 [facility] Comment on above: Order Comment: Speci men Type: BLOOD SPECIMENOrdering Facility: [facility] Address: [address] Performed By: #### 2 4323-8 ####[facility] LABIA [id number] [place] [address] [place] Urea nitrogen [Mass/Vol] 14 mg/dL Normal 7-21 [facility] Comment on above: Order Comment: Speci men Type: BLOOD SPECIMENOrdering Facility: [facility] Address: [address] Performed By: #### 2 4323-8 ####[facility] LABIA [id number] [place] [address] [place] Gas and Carbon monoxide pane l (BldV)on 06-29-2022 Base excess Calc (BldV) [Moles/Vol] 2 mmol/L Normal 0-2 [facility] Comment on above: Order Comment: Speci men Type: VENOUS BLOOD SPECIMENOrdering Facility: [facility] Address: [address] Performed By: #### 2 4344-4 ####[facility] LABCLIA [id number] [place] [address] [place] Body temperature 98.6 [degF] Normal [facility] Comment on above: Order Comment: Speci men Type: VENOUS BLOOD SPECIMENOrdering Facility: [facility] Address: [address] [address] Performed By: #### 2 4344-4 ####[facility] LABCLIA [id number] [place] [address] [place] Calcium.ionized (Bld) [Mass/Vol] 1.23 mmol/L Normal 1.08-1.30 [facility] Comment on above: Order Comment: Speci men Type: VENOUS BLOOD SPECIMENOrdering Facility: [facility] Address: [address] [place] [address] Performed By: #### 2 4344-4 ####[facility] LABIA [id number] [place] [address] [place] Calcium.ionized adjusted to pH 7.4 (BldA) [Moles/Vol] 1.18 mmol/L Normal 1.08-1.30 [facility] Comment on above: Order Comment: Speci men Type: VENOUS BLOOD SPECIMENOrdering Facility: [facility] Address: [address] [place] [address] Performed By: #### 2 4344-4 ####[facility] LABCLIA [id number] [place] [address] [place] Carboxyhemoglobin (BldV) [Mass fraction] 1.0 % Normal 0.0-2.0 [facility] Comment on above: Order Comment: Speci men Type: VENOUS BLOOD SPECIMENOrdering Facility: [facility] Address: [address] [place] [address] Result Comment: Carb oxyhemoglobin Reference Range for Smokers: 2.0-8.0% Performed By: #### 2 4344-4 ####[facility] LABCLIA [id number] [place] [address] [place] CO2 (BldV) [Partial pressure] 58 mm[Hg] High 42-55 [facility] Comment on above: Order Comment: Speci men Type: VENOUS BLOOD SPECIMENOrdering Facility: [facility] Address: [address] [address] Performed By: #### 2 4344-4 ####[facility] LABCLIA [id number] [place] [address] [place] CO2 [Moles/Vol] 30 mmol/L High 25-29 [facility] Comment on above: Order Comment: Speci men Type: VENOUS BLOOD SPECIMENOrdering Facility: [facility] Address: [address] [place] [address] Performed By: #### 2 4344-4 ####[facility] LABCLIA [id number] [place] [address] [place] Glucose [Mass/Vol] 76 mg/dL Normal 60-105 [facility] Comment on above: Order Comment: Speci men Type: VENOUS BLOOD SPECIMENOrdering Facility: [facility] Address: [address] [place], [place] [address] Performed By: #### 2 4344-4 ####[facility] LABCLIA [id number] [place] [address] [place] HCO3 (Bld) [Moles/Vol] 29 mmol/L High 24-28 [facility] Comment on above: Order Comment: Speci men Type: VENOUS BLOOD SPECIMENOrdering Facility: [facility] Address: [address] [place], [place] [address] Performed By: #### 2 4344-4 ####[facility] LABCLIA [id number] [place] [address] [place] Hematocrit (Bld) [Volume fraction] 31.0 % Low 36.0-46.0 [facility] Comment on above: Order Comment: Speci men Type: VENOUS BLOOD SPECIMENOrdering Facility: [facility] Address: [address] Performed By: #### 2 4344-4 ####[facility] LABCLIA [id number] [place] [address] [place] Hemoglobin (Bld) [Mass/Vol] 10.0 g/dL Low 11.5-15.5 [facility] Comment on above: Order Comment: Speci men Type: VENOUS BLOOD SPECIMENOrdering Facility: [facility] Address: [address] [address] Performed By: #### 2 4344-4 ####[facility] LABIA [id number] [place] [address] [place] Lactate [Moles/Vol] 0.7 mmol/L Normal 0.5-2.2 [facility] Comment on above: Order Comment: Speci men Type: VENOUS BLOOD SPECIMENOrdering Facility: [facility] Address: [address] Performed By: #### 2 4344-4 ####[facility] LABIA [id number] [place] [address] [place] Methemoglobin (Bld) [Mass fraction] 1.4 % Normal 0.0-1.5 [facility] Comment on above: Order Comment: Speci men Type: VENOUS BLOOD SPECIMENOrdering Facility: [facility] Address: [address] Performed By: #### 2 4344-4 ####[facility] LABIA [id number] [place] [address] [place] O2 THERAPY RA=Room Air Normal [facility] Comment on above: Order Comment: Speci men Type: VENOUS BLOOD SPECIMENOrdering Facility: [facility] Address: [address] Performed By: #### 2 4344-4 ####[facility] LABCLIA [id number] [place] [address] [place] Oxygen (BldV) [Partial pressure] 33 mm[Hg] Low 35-45 [facility] Comment on above: Order Comment: Speci men Type: VENOUS BLOOD SPECIMENOrdering Facility: [facility] Address: [address] [place] [address] Performed By: #### 2 4344-4 ####[facility] LABCLIA [id number] [place] [address] [place] Oxygen saturation in Venous blood 57 % Low 60-85 [facility] Comment on above: Order Comment: Speci men Type: VENOUS BLOOD SPECIMENOrdering Facility: [facility] Address: [address] [place] [address] Performed By: #### 2 4344-4 ####[facility] LABCLIA [id number] [place] [address] [place] Oxyhemoglobin (BldV) [Mass fraction] 55 % Low 60-85 [facility] Comment on above: Order Comment: Speci men Type: VENOUS BLOOD SPECIMENOrdering Facility: [facility] Address: [address] [place], [place] [address] Performed By: #### 2 4344-4 ####[facility] LABCLIA [id number] [place] [address] [place] pH (BldV) 7.32 [pH] Normal 7.32-7.42 [facility] Comment on above: Order Comment: Speci men Type: VENOUS BLOOD SPECIMENOrdering Facility: [facility] Address: [address] [place], [place] [address] Performed By: #### 2 4344-4 ####[facility] LABCLIA [id number] [place] [address] [place] Potassium [Moles/Vol] 4.2 mmol/L Normal 3.5-5.0 [facility] Comment on above: Order Comment: Speci men Type: VENOUS BLOOD SPECIMENOrdering Facility: [facility] Address: [address] Performed By: #### 2 4344-4 ####[facility] LABCLIA [id number] [place] [address] [place] Sodium [Moles/Vol] 140 mmol/L Normal 136-144 [facility] Comment on above: Order Comment: Speci men Type: VENOUS BLOOD SPECIMENOrdering Facility: [facility] Address: [address] Performed By: #### 2 4344-4 ####[facility] LABCLIA [id number] [place] [address] [place] NURSING PROGon 06-29-2022 NURSING PROG Normal [facility] NUTRITIONon 06-29-2022 NUTRITION Normal [facility] CBC panel Auto (Bld)on 06-28 Erythrocyte distribution width (RBC) [Ratio] 18.3 % High 11.5-15.0 [facility] Comment on above: Order Comment: Speci men Type: BLOOD SPECIMENOrdering Facility: [facility] Address: [address] [place], [place] [address] Performed By: #### 5 8410-2 ####[facility] LABCLIA [id number] [place] [address] [place] Hematocrit (Bld) [Volume fraction] 34.3 % Low 36.0-46.0 [facility] Comment on above: Order Comment: Speci men Type: BLOOD SPECIMENOrdering Facility: [facility] Address: [address] [place], [place] [address] Performed By: #### 5 8410-2 ####[facility] LABCLIA [id number] [place] [address] [place] Hemoglobin (Bld) [Mass/Vol] 10.9 g/dL Low 11.5-15.5 [facility] Comment on above: Order Comment: Speci men Type: BLOOD SPECIMENOrdering Facility: [facility] Address: [address] Performed By: #### 5 8410-2 ####[facility] LABIA [id number] [address] STATES OF [facility] MCH (RBC) [Entitic mass] 27.3 pg Normal 26.0-34.0 [facility] Comment on above: Order Comment: Speci men Type: BLOOD SPECIMENOrdering Facility: [facility] Address: [address] Performed By: #### 5 8410-2 ####[facility] LABIA [id number] [address] STATES [facility] MCHC (RBC) [Mass/Vol] 31.8 g/dL Normal 30.5-36.0 [facility] Comment on above: Order Comment: Speci men Type: BLOOD SPECIMENOrdering Facility: [facility] Address: [address] Performed By: #### 5 8410-2 ####[facility] LABIA [id number] [address] [place] MCV (RBC) [Entitic vol] 85.8 fL Normal 80.0-100.0 [facility] Comment on above: Order Comment: Speci men Type: BLOOD SPECIMENOrdering Facility: [facility] Address: [address] Performed By: #### 5 8410-2 ####[facility] [id number] [address] [place] Nucleated RBC (Bld) [#/Vol] 10*3/uL Normal <0.01 [facility] Comment on above: Order Comment: Speci men Type: BLOOD SPECIMENOrdering Facility: [facility] Address: [address] [place], [place] [address] Performed By: #### 5 8410-2 ####[facility] LABCLIA [id number] [place] [address] [place] Platelet mean volume (Bld) [Entitic vol] 8.9 fL Low 9.0-12.7 [facility] Comment on above: Order Comment: Speci men Type: BLOOD SPECIMENOrdering Facility: [facility] Address: [address] [place] [address] Performed By: #### 5 8410-2 ####[facility] LABIA [id number] [place] [address] [place] Platelets (Bld) [#/Vol] 420 10*3/uL High 150-400 [facility] Comment on above: Order Comment: Speci men Type: BLOOD SPECIMENOrdering Facility: [facility] Address: [address] [place], [place] [address] Performed By: #### 5 8410-2 ####[facility] LABIA [id number] [place] [address] [place] RBC (Bld) [#/Vol] 4.00 10*6/uL Normal 3.90-5.20 [facility] Comment on above: Order Comment: Speci men Type: BLOOD SPECIMENOrdering Facility: [facility] Address: [address] [place] [address] Performed By: #### 5 8410-2 ####[facility] LABIA [id number] [place] [address] [place] WBC (Bld) [#/Vol] 9.26 10*3/uL Normal 3.70-11.00 [facility] Comment on above: Order Comment: Speci men Type: BLOOD SPECIMENOrdering Facility: [facility] Address: [address] [place], [place] [address] Performed By: #### 5 8410-2 ####[facility] LABIA [id number] [place] [address] [place] Erythrocyte distribution width (RBC) [Ratio] 18.4 % High 11.5-15.0 [facility] Comment on above: Order Comment: Speci men Type: BLOOD SPECIMENOrdering Facility: [facility] Address: [address] [place] [address] Performed By: #### 5 8410-2 ####[facility] LABIA [id number] [place] [address] [place] Hematocrit (Bld) [Volume fraction] 33.8 % Low 36.0-46.0 [facility] Comment on above: Order Comment: Speci men Type: BLOOD SPECIMENOrdering Facility: [facility] Address: [address] [place] [address] Performed By: #### 5 8410-2 ####[facility] LABIA [id number] [place] [address] [place] Hemoglobin (Bld) [Mass/Vol] 11.1 g/dL Low 11.5-15.5 [facility] Comment on above: Order Comment: Speci men Type: BLOOD SPECIMENOrdering Facility: [facility] Address: [address] [place] [address] Performed By: #### 5 8410-2 ####[facility] LABIA [id number] [place] [address] [place] MCH (RBC) [Entitic mass] 28.0 pg Normal 26.0-34.0 [facility] Comment on above: Order Comment: Speci men Type: BLOOD SPECIMENOrdering Facility: [facility] Address: [address] [place], [place] [address] Performed By: #### 5 8410-2 ####[facility] LABCLIA [id number] [place] [address] [place] MCHC (RBC) [Mass/Vol] 32.8 g/dL Normal 30.5-36.0 [facility] Comment on above: Order Comment: Speci men Type: BLOOD SPECIMENOrdering Facility: [facility] Address: [address] Performed By: #### 5 8410-2 ####[facility] LABIA [id number] [place] [address] [place] MCV (RBC) [Entitic vol] 85.4 fL Normal 80.0-100.0 [facility] Comment on above: Order Comment: Speci men Type: BLOOD SPECIMENOrdering Facility: [facility] Address: [address] Performed By: #### 5 8410-2 ####[facility] [id number] [place] [address] [place] Nucleated RBC (Bld) [#/Vol] 10*3/uL Normal <0.01 [facility] Comment on above: Order Comment: Speci men Type: BLOOD SPECIMENOrdering Facility: [facility] Address: [address] Performed By: #### 5 8410-2 ####[facility] [id number] [place] [address] [place] Platelet mean volume (Bld) [Entitic vol] 9.1 fL Normal 9.0-12.7 [facility] Comment on above: Order Comment: Speci men Type: BLOOD SPECIMENOrdering Facility: [facility] Address: [address] [place] [address] Performed By: #### 5 8410-2 ####[facility] LABIA [id number] [place] [address] [place] Platelets (Bld) [#/Vol] 409 10*3/uL High 150-400 [facility] Comment on above: Order Comment: Speci men Type: BLOOD SPECIMENOrdering Facility: [facility] Address: [address] [place] [address] Performed By: #### 5 8410-2 ####[facility] LABCLIA [id number] [place] [address] [place] RBC (Bld) [#/Vol] 3.96 10*6/uL Normal 3.90-5.20 [facility] Comment on above: Order Comment: Speci men Type: BLOOD SPECIMENOrdering Facility: [facility] Address: [address] Performed By: #### 5 8410-2 ####[facility] LABIA [id number] [place] [address] [place] WBC (Bld) [#/Vol] 10.21 10*3/uL Normal 3.70-11.00 [facility] Comment on above: Order Comment: Speci men Type: BLOOD SPECIMENOrdering Facility: [facility] Address: [address] [place], [place] [address] Performed By: #### 5 8410-2 ####[facility] LABIA [id number] [place] [address] [place] Erythrocyte distribution width (RBC) [Ratio] 18.5 % High 11.5-15.0 [facility] Comment on above: Order Comment: Speci men Type: BLOOD SPECIMENOrdering Facility: [facility] Address: [address] [place], [place] [address] Performed By: #### 5 8410-2 ####[facility] LABIA [id number] [place] [address] [place] Hematocrit (Bld) [Volume fraction] 34.1 % Low 36.0-46.0 [facility] Comment on above: Order Comment: Speci men Type: BLOOD SPECIMENOrdering Facility: [facility] Address: [address] [place], [place] [address] Performed By: #### 5 8410-2 ####[facility] [id number] [address] STATES OF [facility] Hemoglobin (Bld) [Mass/Vol] 10.7 g/dL Low 11.5-15.5 [facility] Comment on above: Order Comment: Speci men Type: BLOOD SPECIMENOrdering Facility: [facility] Address: [address] [place] [address] Performed By: #### 5 8410-2 ####[facility] LABIA [id number] [address] MCH (RBC) [Entitic mass] 27.2 pg Normal 26.0-34.0 [facility] Comment on above: Order Comment: Speci men Type: BLOOD SPECIMENOrdering Facility: [facility] Address: [address] [place] [address] Performed By: #### 5 8410-2 ####[facility] [id number] [address] MCHC (RBC) [Mass/Vol] 31.4 g/dL Normal 30.5-36.0 [facility] Comment on above: Order Comment: Speci men Type: BLOOD SPECIMENOrdering Facility: [facility] Address: [address] [place] [address] Performed By: #### 5 8410-2 ####[facility] [id number] [address] [place] MCV (RBC) [Entitic vol] 86.5 fL Normal 80.0-100.0 [facility] Comment on above: Order Comment: Speci men Type: BLOOD SPECIMENOrdering Facility: [facility] Address: [address] [place], [place] [address] Performed By: #### 5 8410-2 ####[facility] LABIA [id number] [address] [place] Nucleated RBC (Bld) [#/Vol] 10*3/uL Normal <0.01 [facility] Comment on above: Order Comment: Speci men Type: BLOOD SPECIMENOrdering Facility: [facility] Address: [address] [place], [place] [address] Performed By: #### 5 8410-2 ####[facility] LABCLIA [id number] [place] [address] [place] Platelet mean volume (Bld) [Entitic vol] 9.5 fL Normal 9.0-12.7 [facility] Comment on above: Order Comment: Speci men Type: BLOOD SPECIMENOrdering Facility: [facility] Address: [address] [place], [place] [address] Performed By: #### 5 8410-2 ####[facility] LABCLIA [id number] [place] [address] [place] Platelets (Bld) [#/Vol] 442 10*3/uL High 150-400 [facility] Comment on above: Order Comment: Speci men Type: BLOOD SPECIMENOrdering Facility: [facility] Address: [address] [place], [place] [address] Performed By: #### 5 8410-2 ####[facility] LABCLIA [id number] [place] [address] [place] RBC (Bld) [#/Vol] 3.94 10*6/uL Normal 3.90-5.20 [facility] Comment on above: Order Comment: Speci men Type: BLOOD SPECIMENOrdering Facility: [facility] Address: [address] Performed By: #### 5 8410-2 ####[facility] LABCLIA [id number] [place] [address] [place] WBC (Bld) [#/Vol] 11.57 10*3/uL High 3.70-11.00 [facility] Comment on above: Order Comment: Speci men Type: BLOOD SPECIMENOrdering Facility: [facility] Address: [address] Performed By: #### 5 8410-2 ####[facility] LABCLIA [id number] [place] [address] [place] Erythrocyte distribution width (RBC) [Ratio] 18.6 % High 11.5-15.0 [facility] Comment on above: Order Comment: Speci men Type: BLOOD SPECIMENOrdering Facility: [facility] Address: [address] [place], [place] [address] Performed By: #### 5 8410-2 ####[facility] LABCLIA [id number] [place] [address] [place] Hematocrit (Bld) [Volume fraction] 26.6 % Low 36.0-46.0 [facility] Comment on above: Order Comment: Speci men Type: BLOOD SPECIMENOrdering Facility: [facility] Address: [address] [place], [place] [address] Performed By: #### 5 8410-2 ####[facility] LABCLIA [id number] [place] [address] [place] Hemoglobin (Bld) [Mass/Vol] 8.4 g/dL Low 11.5-15.5 [facility] Comment on above: Order Comment: Speci men Type: BLOOD SPECIMENOrdering Facility: [facility] Address: [address] [place], [place] [address] Performed By: #### 5 8410-2 ####[facility] LABCLIA [id number] [place] [address] [place] MCH (RBC) [Entitic mass] 27.6 pg Normal 26.0-34.0 [facility] Comment on above: Order Comment: Speci men Type: BLOOD SPECIMENOrdering Facility: [facility] Address: [address] [place], [place] [address] Performed By: #### 5 8410-2 ####[facility] LABCLIA [id number] [place] [address] [place] MCHC (RBC) [Mass/Vol] 31.6 g/dL Normal 30.5-36.0 [facility] Comment on above: Order Comment: Speci men Type: BLOOD SPECIMENOrdering Facility: [facility] Address: [address] [place] [address] Performed By: #### 5 8410-2 ####[facility] [id number] [place] [address] [place] MCV (RBC) [Entitic vol] 87.5 fL Normal 80.0-100.0 [facility] Comment on above: Order Comment: Speci men Type: BLOOD SPECIMENOrdering Facility: [facility] Address: [address] [place] [address] Performed By: #### 5 8410-2 ####[facility] [id number] [place] [address] [place] Nucleated RBC (Bld) [#/Vol] 10*3/uL Normal <0.01 [facility] Comment on above: Order Comment: Speci men Type: BLOOD SPECIMENOrdering Facility: [facility] Address: [address] [place], [place] [address] Performed By: #### 5 8410-2 ####[facility] [id number] [place] [address] [place] Platelet mean volume (Bld) [Entitic vol] 9.1 fL Normal 9.0-12.7 [facility] Comment on above: Order Comment: Speci men Type: BLOOD SPECIMENOrdering Facility: [facility] Address: [address] [place], [place] [address] Performed By: #### 5 8410-2 ####[facility] [id number] [place] [address] [place] Platelets (Bld) [#/Vol] 330 10*3/uL Normal 150-400 [facility] Comment on above: Order Comment: Speci men Type: BLOOD SPECIMENOrdering Facility: [facility] Address: [address] [place], [place] [address] Performed By: #### 5 8410-2 ####[facility] LABCLIA [id number] [place] [address] [place] RBC (Bld) [#/Vol] 3.04 10*6/uL Low 3.90-5.20 [facility] Comment on above: Order Comment: Speci men Type: BLOOD SPECIMENOrdering Facility: [facility] Address: [address] [place], [place] [address] Performed By: #### 5 8410-2 ####[facility] LABCLIA [id number] [place] [address] [place] WBC (Bld) [#/Vol] 8.14 10*3/uL Normal 3.70-11.00 [facility] Comment on above: Order Comment: Speci men Type: BLOOD SPECIMENOrdering Facility: [facility] Address: [address] [place], [place] [address] Performed By: #### 5 8410-2 ####[facility] LABCLIA [id number] [place] [address] [place] Erythrocyte distribution width (RBC) [Ratio] 18.2 % High 11.5-15.0 [facility] Comment on above: Order Comment: Speci men Type: BLOOD SPECIMENOrdering Facility: [facility] Address: [address] [place], [place] [address] Performed By: #### 5 8410-2 ####[facility] LABCLIA [id number] [place] [address] [place] Hematocrit (Bld) [Volume fraction] 31.6 % Low 36.0-46.0 [facility] Comment on above: Order Comment: Speci men Type: BLOOD SPECIMENOrdering Facility: [facility] Address: [address] [address] Performed By: #### 5 8410-2 ####[facility] [id number] [address] [place] Hemoglobin (Bld) [Mass/Vol] 10.2 g/dL Low 11.5-15.5 [facility] Comment on above: Order Comment: Speci men Type: BLOOD SPECIMENOrdering Facility: [facility] Address: [address] [place] [address] Performed By: #### 5 8410-2 ####[facility] [id number] [address] [place] MCH (RBC) [Entitic mass] 27.9 pg Normal 26.0-34.0 [facility] Comment on above: Order Comment: Speci men Type: BLOOD SPECIMENOrdering Facility: [facility] Address: [address] Performed By: #### 5 8410-2 ####[facility] [id number] [address] [place] MCHC (RBC) [Mass/Vol] 32.3 g/dL Normal 30.5-36.0 [facility] Comment on above: Order Comment: Speci men Type: BLOOD SPECIMENOrdering Facility: [facility] Address: [address] Performed By: #### 5 8410-2 ####[facility] [id number] [address] [place] MCV (RBC) [Entitic vol] 86.6 fL Normal 80.0-100.0 [facility] Comment on above: Order Comment: Speci men Type: BLOOD SPECIMENOrdering Facility: [facility] Address: [address] [place], [place] [address] Performed By: #### 5 8410-2 ####[facility] LABCLIA [id number] [place] [address] [place] Nucleated RBC (Bld) [#/Vol] 10*3/uL Normal <0.01 [facility] Comment on above: Order Comment: Speci men Type: BLOOD SPECIMENOrdering Facility: [facility] Address: [address] [place] [address] Performed By: #### 5 8410-2 ####[facility] LABIA [id number] [place] [address] [place] Platelet mean volume (Bld) [Entitic vol] 9.3 fL Normal 9.0-12.7 [facility] Comment on above: Order Comment: Speci men Type: BLOOD SPECIMENOrdering Facility: [facility] Address: [address] [place] [address] Performed By: #### 5 8410-2 ####[facility] LABIA [id number] [place] [address] [place] Platelets (Bld) [#/Vol] 388 10*3/uL Normal 150-400 [facility] Comment on above: Order Comment: Speci men Type: BLOOD SPECIMENOrdering Facility: [facility] Address: [address] [place] [address] Performed By: #### 5 8410-2 ####[facility] LABIA [id number] [place] [address] [place] RBC (Bld) [#/Vol] 3.65 10*6/uL Low 3.90-5.20 [facility] Comment on above: Order Comment: Speci men Type: BLOOD SPECIMENOrdering Facility: [facility] Address: [address] [place] [address] Performed By: #### 5 8410-2 ####[facility] LABIA [id number] [place] [address] [place] WBC (Bld) [#/Vol] 10.41 10*3/uL Normal 3.70-11.00 [facility] Comment on above: Order Comment: Speci men Type: BLOOD SPECIMENOrdering Facility: [facility] Address: [address] [place] [address] Performed By: #### 5 8410-2 ####[facility] LABCLIA [id number] [address] [place] Erythrocyte distribution width (RBC) [Ratio] 17.3 % High 11.5-15.0 [facility] Comment on above: Order Comment: Speci men Type: BLOOD SPECIMENOrdering Facility: [facility] Address: [address] [place] [address] Performed By: #### 5 8410-2 ####[facility] LABIA [id number] [address] [place] Hematocrit (Bld) [Volume fraction] 21.3 % Low 36.0-46.0 [facility] Comment on above: Order Comment: Speci men Type: BLOOD SPECIMENOrdering Facility: [facility] Address: [address] [place] [address] Performed By: #### 5 8410-2 ####[facility] LABIA [id number] [place] [address] [place] Hemoglobin (Bld) [Mass/Vol] 6.5 g/dL Low 11.5-15.5 [facility] Comment on above: Order Comment: Speci men Type: BLOOD SPECIMENOrdering Facility: [facility] Address: [address] [place] [address] Performed By: #### 5 8410-2 ####[facility] LABCLIA [id number] [place] [address] [place] MCH (RBC) [Entitic mass] 27.7 pg Normal 26.0-34.0 [facility] Comment on above: Order Comment: Speci men Type: BLOOD SPECIMENOrdering Facility: [facility] Address: [address] Performed By: #### 5 8410-2 ####[facility] [id number] [address] [place] MCHC (RBC) [Mass/Vol] 30.5 g/dL Normal 30.5-36.0 [facility] Comment on above: Order Comment: Speci men Type: BLOOD SPECIMENOrdering Facility: [facility] Address: [address] Performed By: #### 5 8410-2 ####[facility] [id number] [place] [address] [place] MCV (RBC) [Entitic vol] 90.6 fL Normal 80.0-100.0 [facility] Comment on above: Order Comment: Speci men Type: BLOOD SPECIMENOrdering Facility: [facility] Address: [address] Performed By: #### 5 8410-2 ####[facility] [id number] [place] [address] [place] Nucleated RBC (Bld) [#/Vol] 10*3/uL Normal <0.01 [facility] Comment on above: Order Comment: Speci men Type: BLOOD SPECIMENOrdering Facility: [facility] Address: [address] Performed By: #### 5 8410-2 ####[facility] [id number] [place] [address] [place] Platelet mean volume (Bld) [Entitic vol] 9.2 fL Normal 9.0-12.7 [facility] Comment on above: Order Comment: Speci men Type: BLOOD SPECIMENOrdering Facility: [facility] Address: [address] [place], [place] [address] Performed By: #### 5 8410-2 ####[facility] [id number] [place] [address] [place] Platelets (Bld) [#/Vol] 325 10*3/uL Normal 150-400 [facility] Comment on above: Order Comment: Speci men Type: BLOOD SPECIMENOrdering Facility: [facility] Address: [address] [place] [address] Performed By: #### 5 8410-2 ####[facility] [id number] [place] [address] [place] RBC (Bld) [#/Vol] 2.35 10*6/uL Low 3.90-5.20 [facility] Comment on above: Order Comment: Speci men Type: BLOOD SPECIMENOrdering Facility: [facility] Address: [address] [place] [address] Performed By: #### 5 8410-2 ####[facility] [id number] [place] [address] [place] WBC (Bld) [#/Vol] 7.39 10*3/uL Normal 3.70-11.00 [facility] Comment on above: Order Comment: Speci men Type: BLOOD SPECIMENOrdering Facility: [facility] Address: [address] [place], [place] [address] Performed By: #### 5 8410-2 ####[facility] [id number] [place] [address] [place] CONSULT PROGon 06-28-2022 CONSULT PROG Normal [facility] Calprotectin Stl-mCnton 06-08 Calprotectin (Stl) [Mass/Mass] 216.5 mg/kg High 0-50 [facility] Comment on above: Order Comment: Speci men Type: STOOL SPECIMENOrdering Facility: [facility] Address: [address] [place] [address] Result Comment: INTE RPRETIVE INFORMATION:Calprotectin, Fecal<50.0 mg/kg : Ingfbq71.0-120.0 mg/kg: Borderline. Test should be re-evaluated in 4-6 wks.>120.0 mg/kg: Abnormal Performed By: #### 3 8445-3 ####[facility] LABCLIA [id number] [place] [address] [place] [facility] Comprehensive metabolic 2000 panelon 06-28-2022 Albumin [Mass/Vol] 3.4 g/dL Low 3.9-4.9 [facility] Comment on above: Order Comment: Speci men Type: BLOOD SPECIMENOrdering Facility: [facility] Address: [address] [place] [address] Performed By: #### 2 4323-8 ####[facility] LABCLIA [id number] [place] [address] [place] ALP [Catalytic activity/Vol] 100 U/L Normal 34-123 [facility] Comment on above: Order Comment: Speci men Type: BLOOD SPECIMENOrdering Facility: [facility] Address: [address] [place] [address] Performed By: #### 2 4323-8 ####[facility] LABCLIA [id number] [address] [place] ALT [Catalytic activity/Vol] 16 U/L Normal 7-38 [facility] Comment on above: Order Comment: Speci men Type: BLOOD SPECIMENOrdering Facility: [facility] Address: [address] Performed By: #### 2 4323-8 ####[facility] LABCLIA [id number] [place] [address] [place] Anion gap [Moles/Vol] 9 mmol/L Normal 9-18 [facility] Comment on above: Order Comment: Speci men Type: BLOOD SPECIMENOrdering Facility: [facility] Address: [address] [place] [address] [place] [address] Performed By: #### 2 4323-8 ####[facility] LABCLIA [id number] [place] [address] [place] AST [Catalytic activity/Vol] 32 U/L Normal 13-35 [facility] Comment on above: Order Comment: Speci men Type: BLOOD SPECIMENOrdering Facility: [facility] Address: [address] Performed By: #### 2 4323-8 ####[facility] LABIA [id number] [place] [address] [place] Bilirubin [Mass/Vol] 0.9 mg/dL Normal 0.2-1.3 [facility] Comment on above: Order Comment: Speci men Type: BLOOD SPECIMENOrdering Facility: [facility] Address: [address] Performed By: #### 2 4323-8 ####[facility] LABIA [id number] [place] [address] [place] Calcium [Mass/Vol] 8.7 mg/dL Normal 8.5-10.2 [facility] Comment on above: Order Comment: Speci men Type: BLOOD SPECIMENOrdering Facility: [facility] Address: [address] [place] [address] Performed By: #### 2 4323-8 ####[facility] LABCLIA [id number] [place] [address] [place] Chloride [Moles/Vol] 107 mmol/L High 97-105 [facility] Comment on above: Order Comment: Speci men Type: BLOOD SPECIMENOrdering Facility: [facility] Address: [address] [place] [address] Performed By: #### 2 4323-8 ####[facility] LABCLIA [id number] [address] [place] CO2 [Moles/Vol] 22 mmol/L Normal 22-30 [facility] Comment on above: Order Comment: Speci men Type: BLOOD SPECIMENOrdering Facility: [facility] Address: [address] [address] Performed By: #### 2 4323-8 ####[facility] LABCLIA [id number] [address] [place] Creatinine [Mass/Vol] 1.68 mg/dL High 0.58-0.96 [facility] Comment on above: Order Comment: Speci men Type: BLOOD SPECIMENOrdering Facility: [facility] Address: [address] [place] [address] Performed By: #### 2 4323-8 ####[facility] LABCLIA [id number] [address] OF [facility] ESTIMATED GLOMERULAR FILTRATION RATE 40 mL/min/1.73m??? Low >=60 [facility] Comment on above: Order Comment: Speci men Type: BLOOD SPECIMENOrdering Facility: [facility] Address: [address] [place] [address] Result Comment: Isabel mated Glomerular Filtration Rate (eGFR) is calculated using the 2020 CKD-EPI creatinine equation. This equation utilizes serum creatinine, sex, and age as parameters. The creatinine assay has traceable calibration to isotope dilution-mass spectrometry. Refer to KDIGO guidelines for clinical interpretation. In patients with unstable renal function, e.g. those with acute kidney injury, the eGFR may not accurately reflect actual GFR. Performed By: #### 2 4323-8 ####[facility] LABCLIA [id number] [place] [address] [place] Glucose [Mass/Vol] 102 mg/dL High 74-99 [facility] Comment on above: Order Comment: Speci men Type: BLOOD SPECIMENOrdering Facility: [facility] Address: [address] [place] [address] Result Comment: The [place] [employer] (ADA) provides guidance for cutoff values for fasting glucose and random glucose. The ADA defines fasting as no caloric intake for at least 8 hours. Fasting plasma glucose results between 100 to 125 mg/dL indicate increased risk for diabetes (prediabetes).Fasting plasma glucose results greater than or equal to 126 mg/dL meet the criteria for diagnosis of diabetes. In the absence of unequivocal hyperglycemia, results should be confirmed by repeat testing. In a patient with classic symptoms of hyperglycemia or hyperglycemic crisis, random plasma glucose results greater than or equal to 200 mg/dL meet the criteria for diagnosis of diabetes.Reference: Standards of Medical Care in Diabetes 2016, [place] [employer]. Diabetes Care. 2016.39(Suppl 1). Performed By: #### 2 4323-8 ####[facility] LABCLIA [id number] [place] [address] [place] Potassium [Moles/Vol] 4.4 mmol/L Normal 3.7-5.1 [facility] Comment on above: Order Comment: Speci men Type: BLOOD SPECIMENOrdering Facility: [facility] Address: [address] [address] Performed By: #### 2 4323-8 ####[facility] LABCLIA [id number] [place] [address] [place] Protein [Mass/Vol] 6.3 g/dL Normal 6.3-8.0 [facility] Comment on above: Order Comment: Speci men Type: BLOOD SPECIMENOrdering Facility: [facility] Address: [address] [place] [address] Performed By: #### 2 4323-8 ####[facility] LABCLIA [id number] [place] [address] [place] Sodium [Moles/Vol] 138 mmol/L Normal 136-144 [facility] Comment on above: Order Comment: Speci men Type: BLOOD SPECIMENOrdering Facility: [facility] Address: [address] Performed By: #### 2 4323-8 ####[facility] LABCLIA [id number] [address] OF [place] Urea nitrogen [Mass/Vol] 16 mg/dL Normal 7-21 [facility] Comment on above: Order Comment: Speci men Type: BLOOD SPECIMENOrdering Facility: [facility] Address: [address] [place] [address] Performed By: #### 2 4323-8 ####[facility] LABIA [id number] [address] OF [facility] Gas and Carbon monoxide pane l (BldV)on 06-28-2022 BASE DEFICIT, VENOUS -2 mmol/L Normal -2-0 [facility] Comment on above: Order Comment: Speci men Type: VENOUS BLOOD SPECIMENOrdering Facility: [facility] Address: [address] [place] [address] Performed By: #### 2 4344-4 ####[facility] [id number] [address] [place] Body temperature 98.6 [degF] Normal [facility] Comment on above: Order Comment: Speci men Type: VENOUS BLOOD SPECIMENOrdering Facility: [facility] Address: [address] [place] [address] Performed By: #### 2 4344-4 ####[facility] LABIA [id number] [address] [place] Calcium.ionized (Bld) [Mass/Vol] 1.22 mmol/L Normal 1.08-1.30 [facility] Comment on above: Order Comment: Speci men Type: VENOUS BLOOD SPECIMENOrdering Facility: [facility] Address: [address] [place] [address] Performed By: #### 2 4344-4 ####[facility] LABIA [id number] [address] OF [place] Calcium.ionized adjusted to pH 7.4 (BldA) [Moles/Vol] 1.17 mmol/L Normal 1.08-1.30 [facility] Comment on above: Order Comment: Speci men Type: VENOUS BLOOD SPECIMENOrdering Facility: [facility] Address: [address] [place] [address] Performed By: #### 2 4344-4 ####[facility] LABCLIA [id number] [address] [place] Carboxyhemoglobin (BldV) [Mass fraction] 0.5 % Normal 0.0-2.0 [facility] Comment on above: Order Comment: Speci men Type: VENOUS BLOOD SPECIMENOrdering Facility: [facility] Address: [address] [place] [address] Result Comment: Carb oxyhemoglobin Reference Range for Smokers: 2.0-8.0% Performed By: #### 2 4344-4 ####[facility] LABCLIA [id number] [place] [address] [place] CO2 (BldV) [Partial pressure] 48 mm[Hg] Normal 42-55 [facility] Comment on above: Order Comment: Speci men Type: VENOUS BLOOD SPECIMENOrdering Facility: [facility] Address: [address] [place] [address] Performed By: #### 2 4344-4 ####[facility] LABCLIA [id number] [place] [address] [place] CO2 [Moles/Vol] 25 mmol/L Normal 25-29 [facility] Comment on above: Order Comment: Speci men Type: VENOUS BLOOD SPECIMENOrdering Facility: [facility] Address: [address] [place] [address] Performed By: #### 2 4344-4 ####[facility] LABCLIA [id number] [place] [address] [place] Glucose [Mass/Vol] 103 mg/dL Normal 60-105 [facility] Comment on above: Order Comment: Speci men Type: VENOUS BLOOD SPECIMENOrdering Facility: [facility] Address: [address] [address] Performed By: #### 2 4344-4 ####[facility] LABCLIA [id number] [place] [address] [place] HCO3 (Bld) [Moles/Vol] 24 mmol/L Normal 24-28 [facility] Comment on above: Order Comment: Speci men Type: VENOUS BLOOD SPECIMENOrdering Facility: [facility] Address: [address] [address] Performed By: #### 2 4344-4 ####[facility] LABIA [id number] [place] [address] [place] Hematocrit (Bld) [Volume fraction] 32.8 % Low 36.0-46.0 [facility] Comment on above: Order Comment: Speci men Type: VENOUS BLOOD SPECIMENOrdering Facility: [facility] Address: [address] [address] Performed By: #### 2 4344-4 ####[facility] LABIA [id number] [place] [address] [place] Hemoglobin (Bld) [Mass/Vol] 10.6 g/dL Low 11.5-15.5 [facility] Comment on above: Order Comment: Speci men Type: VENOUS BLOOD SPECIMENOrdering Facility: [facility] Address: [address] Performed By: #### 2 4344-4 ####[facility] LABIA [id number] [place] [address] [place] Lactate [Moles/Vol] 0.9 mmol/L Normal 0.5-2.2 [facility] Comment on above: Order Comment: Speci men Type: VENOUS BLOOD SPECIMENOrdering Facility: [facility] Address: [address] Performed By: #### 2 4344-4 ####[facility] LABCLIA [id number] [place] [address] [place] Methemoglobin (Bld) [Mass fraction] 1.2 % Normal 0.0-1.5 [facility] Comment on above: Order Comment: Speci men Type: VENOUS BLOOD SPECIMENOrdering Facility: [facility] Address: [address] [place] [address] Performed By: #### 2 4344-4 ####[facility] LABCLIA [id number] [place] [address] [place] O2 THERAPY RA=Room Air Normal [facility] Comment on above: Order Comment: Speci men Type: VENOUS BLOOD SPECIMENOrdering Facility: [facility] Address: [address] [place], [place] [address] Performed By: #### 2 4344-4 ####[facility] LABCLIA [id number] [place] [address] [place] Oxygen (BldV) [Partial pressure] 95 mm[Hg] High 35-45 [facility] Comment on above: Order Comment: Speci men Type: VENOUS BLOOD SPECIMENOrdering Facility: [facility] Address: [address] [place] [address] Performed By: #### 2 4344-4 ####[facility] LABCLIA [id number] [place] [address] [place] Oxygen saturation in Venous blood 96 % High 60-85 [facility] Comment on above: Order Comment: Speci men Type: VENOUS BLOOD SPECIMENOrdering Facility: [facility] Address: [address] [place] [address] Performed By: #### 2 4344-4 ####[facility] LABCLIA [id number] [address] [address] [place] Oxyhemoglobin (BldV) [Mass fraction] 94 % High 60-85 [facility] Comment on above: Order Comment: Speci men Type: VENOUS BLOOD SPECIMENOrdering Facility: [facility] Address: [address] [address] Performed By: #### 2 4344-4 ####[facility] LABIA [id number] [place] [address] [place] pH (BldV) 7.32 [pH] Normal 7.32-7.42 [facility] Comment on above: Order Comment: Speci men Type: VENOUS BLOOD SPECIMENOrdering Facility: [facility] Address: [address] [address] Performed By: #### 2 4344-4 ####[facility] LABIA [id number] [place] [address] [place] Potassium [Moles/Vol] 4.3 mmol/L Normal 3.5-5.0 [facility] Comment on above: Order Comment: Speci men Type: VENOUS BLOOD SPECIMENOrdering Facility: [facility] Address: [address] [address] Performed By: #### 2 4344-4 ####[facility] LABIA [id number] [place] [address] [place] Sodium [Moles/Vol] 137 mmol/L Normal 136-144 [facility] Comment on above: Order Comment: Speci men Type: VENOUS BLOOD SPECIMENOrdering Facility: [facility] Address: [address] [address] Performed By: #### 2 4344-4 ####[facility] LABIA [id number] [place] [address] [place] Gastrointestinal pathogens p li DAVIS+probe (Stl)on 06-28-2022 ADENOVIRUS F 40/41 Not detected Normal Not Detected [facility] Comment on above: Order Comment: Speci men Type: STOOL SPECIMENOrdering Facility: [facility] Address: [address] Performed By: #### 7 9381-0 ####[facility] LABCLIA [id number] [place] [address] [place] ASTROVIRUS Not detected Normal Not Detected [facility] Comment on above: Order Comment: Speci men Type: STOOL SPECIMENOrdering Facility: [facility] Address: [address] [place], [place] [address] Performed By: #### 7 9381-0 ####[facility] LABCLIA [id number] [place] [address] [place] C. cayetanensis DNA DAVIS+probe Ql (Unsp spec) Not detected Normal Not Detected [facility] Comment on above: Order Comment: Speci men Type: STOOL SPECIMENOrdering Facility: [facility] Address: [address] [place] [address] Performed By: #### 7 9381-0 ####[facility] LABCLIA [id number] [place] [address] [place] Campylobacter sp DNA.diarrheagenic DAVIS+probe Ql (Stl) Not detected Normal Not Detected [facility] Comment on above: Order Comment: Speci men Type: STOOL SPECIMENOrdering Facility: [facility] Address: [address] [place], [place] [address] Performed By: #### 7 9381-0 ####[facility] LABCLIA [id number] [place] [address] [place] Cryptosporidium sp DNA DAVIS+probe Ql (Unsp spec) Not detected Normal Not detected [facility] Comment on above: Order Comment: Speci men Type: STOOL SPECIMENOrdering Facility: [facility] Address: [address] [place] [address] Performed By: #### 7 9381-0 ####[facility] LABCLIA [id number] [place] [address] [place] E. COLI (EAEC) Not detected Normal Not Detected [facility] Comment on above: Order Comment: Speci men Type: STOOL SPECIMENOrdering Facility: [facility] Address: [address] [place] [address] Performed By: #### 7 9381-0 ####[facility] LABCLIA [id number] [address] [place] E. COLI (EPEC) Not detected Normal Not Detected [facility] Comment on above: Order Comment: Speci men Type: STOOL SPECIMENOrdering Facility: [facility] Address: [address] [place] [address] Performed By: #### 7 9381-0 ####[facility] LABCLIA [id number] [address] [place] E. COLI (ETEC) Not detected Normal Not Detected [facility] Comment on above: Order Comment: Speci men Type: STOOL SPECIMENOrdering Facility: [facility] Address: [address] [place] [address] Performed By: #### 7 9381-0 ####[facility] LABCLIA [id number] [address] [place] E. COLI (STEC) Not detected Normal Not Detected [facility] Comment on above: Order Comment: Speci men Type: STOOL SPECIMENOrdering Facility: [facility] Address: [address] [place], [place] [address] Performed By: #### 7 9381-0 ####[facility] LABCLIA [id number] [place] [address] [place] [facility] [place] E. coli O157:H7 DNA DAVIS+probe Ql (Unsp spec) Not Applicable Normal Not Detected [facility] Comment on above: Order Comment: Speci men Type: STOOL SPECIMENOrdering Facility: [facility] Address: [address] [place] [address] Performed By: #### 7 9381-0 ####[facility] LABCLIA [id number] [place] [address] [place] E. histolytica DNA DAVIS+probe Ql (Unsp spec) Not detected Normal Not Detected [facility] Comment on above: Order Comment: Speci men Type: STOOL SPECIMENOrdering Facility: [facility] Address: [address] [place] [address] Performed By: #### 7 9381-0 ####[facility] LABCLIA [id number] [place] [address] [place] G. lamblia DNA DAVIS+probe Ql (Unsp spec) Not detected Normal Not Detected [facility] Comment on above: Order Comment: Speci men Type: STOOL SPECIMENOrdering Facility: [facility] Address: [address] [place] [address] Performed By: #### 7 9381-0 ####[facility] LABCLIA [id number] [place] [address] [place] NOROVIRUS GI/GII Not detected Normal Not Detected [facility] Comment on above: Order Comment: Speci men Type: STOOL SPECIMENOrdering Facility: [facility] Address: [address] [place] [address] Performed By: #### 7 9381-0 ####[facility] LABCLIA [id number] [place] [address] [place] PLESIOMONAS SHIGELLOIDES Not detected Normal Not Detected [facility] Comment on above: Order Comment: Speci men Type: STOOL SPECIMENOrdering Facility: [facility] Address: [address] [place], [place] [address] Performed By: #### 7 9381-0 ####[facility] LABCLIA [id number] [place] [address] [place] ROTOVIRUS A Not detected Normal Not Detected [facility] Comment on above: Order Comment: Speci men Type: STOOL SPECIMENOrdering Facility: [facility] Address: [address] [place], [place] [address] Performed By: #### 7 9381-0 ####[facility] LABCLIA [id number] [place] [address] [place] Salmonella sp DNA DAVIS+probe Ql (Unsp spec) Not detected Normal Not Detected [facility] Comment on above: Order Comment: Speci men Type: STOOL SPECIMENOrdering Facility: [facility] Address: [address] [place] [address] Performed By: #### 7 9381-0 ####[facility] LABCLIA [id number] [place] [address] [place] SAPOVIRUS I,II,IV,V Not detected Normal Not Detected [facility] Comment on above: Order Comment: Speci men Type: STOOL SPECIMENOrdering Facility: [facility] Address: [address] [place] [address] Performed By: #### 7 9381-0 ####[facility] LABIA [id number] [place] [address] [place] Shigella species+EIEC invasion plasmid antigen H ipaH gene DAVIS+probe Ql (Stl) Not detected Normal Not Detected [facility] Comment on above: Order Comment: Speci men Type: STOOL SPECIMENOrdering Facility: [facility] Address: [address] [place], [place] [address] Performed By: #### 7 9381-0 ####[facility] LABCLIA [id number] [place] [address] [place] V. cholerae DNA DAVIS+probe Ql (Unsp spec) Not detected Normal Not Detected [facility] Comment on above: Order Comment: Speci men Type: STOOL SPECIMENOrdering Facility: [facility] Address: [address] [place], [place] [address] Performed By: #### 7 9381-0 ####[facility] LABCLIA [id number] [place] [address] [place] Vibrio sp DNA DAVIS+probe Nom (Unsp spec) Not detected Normal Not Detected [facility] Comment on above: Order Comment: Speci men Type: STOOL SPECIMENOrdering Facility: [facility] Address: [address] [place] [address] Performed By: #### 7 9381-0 ####[facility] LABCLIA [id number] [address] [place] Yersinia sp DNA DAVIS+probe Nom (Unsp spec) Not detected Normal Not Detected [facility] Comment on above: Order Comment: Speci men Type: STOOL SPECIMENOrdering Facility: [facility] Address: [address] [place] [address] Performed By: #### 7 9381-0 ####[facility] LABCLIA [id number] [place] [address] [place] Lactate (Bld) [Moles/Vol]on 06-28-2022 Lactate [Moles/Vol] 0.4 mmol/L Low 0.5-2.2 [facility] Comment on above: Order Comment: Speci men Type: BLOOD SPECIMENOrdering Facility: [facility] Address: [address] [place] [address] Performed By: #### 3 2693-4 ####[facility] LABCLIA [id number] [place] [address] [place] O+P Spec Microon 06-28-2022 Ova and parasites identified LM Nom (Unsp spec) OVA AND PARASITE EXAM: No Parasites Seen Normal [facility] Comment on above: Performed By: #### 6 73-4 ####[facility] LABCLIA [id number] [place] [address] [place] THERAPY NTon 06-28-2022 THERAPY NT Normal [facility] THERAPY NT Normal [facility] Bacteria Bld Culton 06-27-19 23 Bacteria identified Cx Nom (Bld) CULTURE, BLOOD: No growth 5 days Normal [facility] Comment on above: Performed By: #### 6 00-7 ####[facility] LABCLIA [id number] [place] [address] [place] CBC W Auto Differential pane l (Bld)on 06-27-2022 Basophils (Bld) [#/Vol] 0.06 10*3/uL Normal <0.11 [facility] Comment on above: Order Comment: Speci men Type: BLOOD SPECIMENOrdering Facility: [facility] Address: [address] [place] [address] Performed By: #### 4 537-7, 07617-9 ####[facility] LABCLIA [id number] [address] [place] [facility] Basophils/100 WBC (Bld) 0.5 % Normal [facility] Comment on above: Order Comment: Speci men Type: BLOOD SPECIMENOrdering Facility: [facility] Address: [address] [place] [address] Performed By: #### 4 537-7, 11062-7 ####[facility] LABCLIA [id number] [address] [place] [facility] Differential cell count method Nom (Bld) Auto Normal [facility] Comment on above: Order Comment: Speci men Type: BLOOD SPECIMENOrdering Facility: [facility] Address: [address] [place] [address] Performed By: #### 4 537-7, 14312-6 ####[facility] LABCLIA [id number] [place] [address] [place] Eosinophils (Bld) [#/Vol] 10*3/uL Normal <0.46 [facility] Comment on above: Order Comment: Speci men Type: BLOOD SPECIMENOrdering Facility: [facility] Address: [address] [place] [address] Performed By: #### 4 537-7, 34391-1 ####[facility] LABCLIA [id number] [place] [address] [place] Eosinophils/100 WBC (Bld) 0.0 % Normal [facility] Comment on above: Order Comment: Speci men Type: BLOOD SPECIMENOrdering Facility: [facility] Address: [address] [place] [address] Performed By: #### 4 537-7, 30187-3 ####[facility] LABIA [id number] [place] [address] [place] Erythrocyte distribution width (RBC) [Ratio] 17.1 % High 11.5-15.0 [facility] Comment on above: Order Comment: Speci men Type: BLOOD SPECIMENOrdering Facility: [facility] Address: [address] [place] [address] Performed By: #### 4 537-7, 16961-4 ####[facility] LABIA [id number] [place] [address] [place] Hematocrit (Bld) [Volume fraction] 22.8 % Low 36.0-46.0 [facility] Comment on above: Order Comment: Speci men Type: BLOOD SPECIMENOrdering Facility: [facility] Address: [address] [place] [address] Performed By: #### 4 537-7, 97480-4 ####[facility] LABIA [id number] [place] [address] [place] Hemoglobin (Bld) [Mass/Vol] 7.1 g/dL Low 11.5-15.5 [facility] Comment on above: Order Comment: Speci men Type: BLOOD SPECIMENOrdering Facility: [facility] Address: [address] [place] [address] Performed By: #### 4 537-7, 81919-3 ####[facility] LABIA [id number] [place] [address] [place] Immature granulocytes (Bld) [#/Vol] 0.05 10*3/uL Normal <0.10 [facility] Comment on above: Order Comment: Speci men Type: BLOOD SPECIMENOrdering Facility: [facility] Address: [address] [place], [place] [address] Performed By: #### 4 537-7, 16841-9 ####[facility] LABCLIA [id number] [address] [place] [facility] Immature granulocytes/100 WBC (Bld) 0.4 % Normal [facility] Comment on above: Order Comment: Speci men Type: BLOOD SPECIMENOrdering Facility: [facility] Address: [address] [place], [place] [address] Performed By: #### 4 537-7, 10387-6 ####[facility] LABCLIA [id number] [place] [address] [place] Lymphocytes (Bld) [#/Vol] 2.77 10*3/uL Normal 1.00-4.00 [facility] Comment on above: Order Comment: Speci men Type: BLOOD SPECIMENOrdering Facility: [facility] Address: [address] [place], [place] [address] Performed By: #### 4 537-7, 60852-5 ####[facility] LABCLIA [id number] [address] [place] Lymphocytes/100 WBC (Bld) 24.1 % Normal [facility] Comment on above: Order Comment: Speci men Type: BLOOD SPECIMENOrdering Facility: [facility] Address: [address] [place], [place] [address] Performed By: #### 4 537-7, 45586-5 ####[facility] LABCLIA [id number] [place] [address] [place] MCH (RBC) [Entitic mass] 28.1 pg Normal 26.0-34.0 [facility] Comment on above: Order Comment: Speci men Type: BLOOD SPECIMENOrdering Facility: [facility] Address: [address] [address] Performed By: #### 4 537-7, 77398-3 ####[facility] LABCLIA [id number] [place] [address] [place] MCHC (RBC) [Mass/Vol] 31.1 g/dL Normal 30.5-36.0 [facility] Comment on above: Order Comment: Speci men Type: BLOOD SPECIMENOrdering Facility: [facility] Address: [address] [address] Performed By: #### 4 537-7, 28092-4 ####[facility] LABIA [id number] [place] [address] [place] MCV (RBC) [Entitic vol] 90.1 fL Normal 80.0-100.0 [facility] Comment on above: Order Comment: Speci men Type: BLOOD SPECIMENOrdering Facility: [facility] Address: [address] [place] [address] Performed By: #### 4 537-7, 66058-9 ####[facility] LABIA [id number] [place] [address] [place] Monocytes (Bld) [#/Vol] 1.22 10*3/uL High <0.87 [facility] Comment on above: Order Comment: Speci men Type: BLOOD SPECIMENOrdering Facility: [facility] Address: [address] Performed By: #### 4 537-7, 06538-6 ####[facility] LABIA [id number] [address] [place] Monocytes/100 WBC (Bld) 10.6 % Normal [facility] Comment on above: Order Comment: Speci men Type: BLOOD SPECIMENOrdering Facility: [facility] Address: [address] Performed By: #### 4 537-7, 62792-9 ####[facility] LABIA [id number] [place] [address] [place] Neutrophils (Bld) [#/Vol] 7.37 10*3/uL Normal 1.45-7.50 [facility] Comment on above: Order Comment: Speci men Type: BLOOD SPECIMENOrdering Facility: [facility] Address: [address] Performed By: #### 4 537-7, 44743-7 ####[facility] LABIA [id number] [address] [place] Neutrophils/100 WBC (Bld) 64.4 % Normal [facility] Comment on above: Order Comment: Speci men Type: BLOOD SPECIMENOrdering Facility: [facility] Address: [address] Performed By: #### 4 537-7, 12804-5 ####[facility] LABIA [id number] [place] [address] [place] Nucleated RBC (Bld) [#/Vol] 0.02 10*3/uL High <0.01 [facility] Comment on above: Order Comment: Speci men Type: BLOOD SPECIMENOrdering Facility: [facility] Address: [address] Performed By: #### 4 537-7, 06508-4 ####[facility] LABIA [id number] [place] [address] [place] Nucleated RBC/100 WBC (Bld) [Ratio] 0.2 /100 WBC Normal [facility] Comment on above: Order Comment: Speci men Type: BLOOD SPECIMENOrdering Facility: [facility] Address: [address] Performed By: #### 4 537-7, 24758-2 ####[facility] LABCLIA [id number] [place] [address] [place] Platelet mean volume (Bld) [Entitic vol] 9.1 fL Normal 9.0-12.7 [facility] Comment on above: Order Comment: Speci men Type: BLOOD SPECIMENOrdering Facility: [facility] Address: [address] [place], [place] [address] Performed By: #### 4 537-7, 07883-0 ####[facility] LABCLIA [id number] [place] [address] [place] Platelets (Bld) [#/Vol] 412 10*3/uL High 150-400 [facility] Comment on above: Order Comment: Speci men Type: BLOOD SPECIMENOrdering Facility: [facility] Address: [address] [place], [place] [address] Performed By: #### 4 537-7, 07158-0 ####[facility] LABCLIA [id number] [place] [address] [place] RBC (Bld) [#/Vol] 2.53 10*6/uL Low 3.90-5.20 [facility] Comment on above: Order Comment: Speci men Type: BLOOD SPECIMENOrdering Facility: [facility] Address: [address] [place], [place] [address] Performed By: #### 4 537-7, 65375-2 ####[facility] LABCLIA [id number] [place] [address] [place] WBC (Bld) [#/Vol] 11.47 10*3/uL High 3.70-11.00 [facility] Comment on above: Order Comment: Speci men Type: BLOOD SPECIMENOrdering Facility: [facility] Address: [address] [place], [place] [address] Performed By: #### 4 537-7, 47666-3 ####[facility] LABCLIA [id number] [place] [address] [place] CBC panel Auto (Bld)on 06-27 Erythrocyte distribution width (RBC) [Ratio] 17.2 % High 11.5-15.0 [facility] Comment on above: Order Comment: Speci men Type: BLOOD SPECIMENOrdering Facility: [facility] Address: [address] [place] [address] Performed By: #### 5 8410-2 ####[facility] LABIA [id number] [place] [address] [place] Hematocrit (Bld) [Volume fraction] 25.8 % Low 36.0-46.0 [facility] Comment on above: Order Comment: Speci men Type: BLOOD SPECIMENOrdering Facility: [facility] Address: [address] [place] [address] Performed By: #### 5 8410-2 ####[facility] [id number] [address] [place] Hemoglobin (Bld) [Mass/Vol] 8.1 g/dL Low 11.5-15.5 [facility] Comment on above: Order Comment: Speci men Type: BLOOD SPECIMENOrdering Facility: [facility] Address: [address] [place] [address] Performed By: #### 5 8410-2 ####[facility] LABIA [id number] [place] [address] [place] MCH (RBC) [Entitic mass] 28.2 pg Normal 26.0-34.0 [facility] Comment on above: Order Comment: Speci men Type: BLOOD SPECIMENOrdering Facility: [facility] Address: [address] [place] [address] Performed By: #### 5 8410-2 ####[facility] [id number] [place] [address] [place] MCHC (RBC) [Mass/Vol] 31.4 g/dL Normal 30.5-36.0 [facility] Comment on above: Order Comment: Speci men Type: BLOOD SPECIMENOrdering Facility: [facility] Address: [address] [place], [place] [address] Performed By: #### 5 8410-2 ####[facility] LABCLIA [id number] [place] [address] [place] MCV (RBC) [Entitic vol] 89.9 fL Normal 80.0-100.0 [facility] Comment on above: Order Comment: Speci men Type: BLOOD SPECIMENOrdering Facility: [facility] Address: [address] [place], [place] [address] Performed By: #### 5 8410-2 ####[facility] LABCLIA [id number] [address] [place] Nucleated RBC (Bld) [#/Vol] 10*3/uL Normal <0.01 [facility] Comment on above: Order Comment: Speci men Type: BLOOD SPECIMENOrdering Facility: [facility] Address: [address] [place], [place] [address] Performed By: #### 5 8410-2 ####[facility] LABIA [id number] [place] [address] [place] Platelet mean volume (Bld) [Entitic vol] 9.5 fL Normal 9.0-12.7 [facility] Comment on above: Order Comment: Speci men Type: BLOOD SPECIMENOrdering Facility: [facility] Address: [address] [place], [place] [address] Performed By: #### 5 8410-2 ####[facility] LABCLIA [id number] [place] [address] [place] Platelets (Bld) [#/Vol] 421 10*3/uL High 150-400 [facility] Comment on above: Order Comment: Speci men Type: BLOOD SPECIMENOrdering Facility: [facility] Address: [address] [place], [place] [address] Performed By: #### 5 8410-2 ####[facility] LABCLIA [id number] [place] [address] [place] RBC (Bld) [#/Vol] 2.87 10*6/uL Low 3.90-5.20 [facility] Comment on above: Order Comment: Speci men Type: BLOOD SPECIMENOrdering Facility: [facility] Address: [address] [place], [place] [address] Performed By: #### 5 8410-2 ####[facility] LABIA [id number] [place] [address] [place] WBC (Bld) [#/Vol] 9.99 10*3/uL Normal 3.70-11.00 [facility] Comment on above: Order Comment: Speci men Type: BLOOD SPECIMENOrdering Facility: [facility] Address: [address] [place] [address] Performed By: #### 5 8410-2 ####[facility] LABIA [id number] [place] [address] [place] CONSULTon 06-27-2022 CONSULT Normal [facility] CONSULT Normal [facility] CRP SerPl-mCncon 06-27-2022 CRP [Mass/Vol] mg/L Normal <0.9 [facility] Comment on above: Order Comment: Speci men Type: BLOOD SPECIMENOrdering Facility: [facility] Address: [address] [place], [place] [address] Performed By: #### 2 4323-8, 1987-10, ####[facility] LABCLIA [id number] [place] [address] [place] ABD/PEL W IVCONon 023 CT ABD/PEL W IVCON Normal [facility] CT ABDOMEN WO IVCONon 2022 CT ABDOMEN WO IVCON Normal [facility] Comprehensive metabolic 2000 panelon 06-27-2022 Albumin [Mass/Vol] 3.4 g/dL Low 3.9-4.9 [facility] Comment on above: Order Comment: Speci men Type: BLOOD SPECIMENOrdering Facility: [facility] Address: [address] [place] [address] Performed By: #### 2 4323-8 ####[facility] LABCLIA [id number] [place] [address] [place] ALP [Catalytic activity/Vol] 93 U/L Normal 34-123 [facility] Comment on above: Order Comment: Speci men Type: BLOOD SPECIMENOrdering Facility: [facility] Address: [address] [place] [address] Performed By: #### 2 4323-8 ####[facility] LABCLIA [id number] [place] [address] [place] ALT [Catalytic activity/Vol] 13 U/L Normal 7-38 [facility] Comment on above: Order Comment: Speci men Type: BLOOD SPECIMENOrdering Facility: [facility] Address: [address] [place] [address] Performed By: #### 2 4323-8 ####[facility] LABCLIA [id number] [place] [address] [place] Anion gap [Moles/Vol] 9 mmol/L Normal 9-18 [facility] Comment on above: Order Comment: Speci men Type: BLOOD SPECIMENOrdering Facility: [facility] Address: [address] [place] [address] Performed By: #### 2 4323-8 ####[facility] LABCLIA [id number] [place] [address] [place] AST [Catalytic activity/Vol] 21 U/L Normal 13-35 [facility] Comment on above: Order Comment: Speci men Type: BLOOD SPECIMENOrdering Facility: [facility] Address: [address] [address] Performed By: #### 2 4323-8 ####[facility] LABCLIA [id number] [place] [address] [place] Bilirubin [Mass/Vol] 0.6 mg/dL Normal 0.2-1.3 [facility] Comment on above: Order Comment: Speci men Type: BLOOD SPECIMENOrdering Facility: [facility] Address: [address] Performed By: #### 2 4323-8 ####[facility] LABCLIA [id number] [place] [address] [place] Calcium [Mass/Vol] 8.5 mg/dL Normal 8.5-10.2 [facility] Comment on above: Order Comment: Speci men Type: BLOOD SPECIMENOrdering Facility: [facility] Address: [address] Performed By: #### 2 4323-8 ####[facility] LABCLIA [id number] [place] [address] [place] Chloride [Moles/Vol] 106 mmol/L High 97-105 [facility] Comment on above: Order Comment: Speci men Type: BLOOD SPECIMENOrdering Facility: [facility] Address: [address] Performed By: #### 2 4323-8 ####[facility] LABCLIA [id number] [place] [address] [place] CO2 [Moles/Vol] 22 mmol/L Normal 22-30 [facility] Comment on above: Order Comment: Speci men Type: BLOOD SPECIMENOrdering Facility: [facility] Address: [address] Performed By: #### 2 4323-8 ####[facility] LABCLIA [id number] [place] [address] [place] Creatinine [Mass/Vol] 1.75 mg/dL High 0.58-0.96 [facility] Comment on above: Order Comment: Angel salazar Type: BLOOD SPECIMENOrdering Facility: [facility] Address: [address] [place] [address] Performed By: #### 2 4323-8 ####[facility] LABIA [id number] [address] [place] ESTIMATED GLOMERULAR FILTRATION RATE 38 mL/min/1.73m??? Low >=60 [facility] Comment on above: Order Comment: Angel salazar Type: BLOOD SPECIMENOrdering Facility: [facility] Address: [address] [place] [address] Result Comment: Isabel mated Glomerular Filtration Rate (eGFR) is calculated using the 2020 CKD-EPI creatinine equation. This equation utilizes serum creatinine, sex, and age as parameters. The creatinine assay has traceable calibration to isotope dilution-mass spectrometry. Refer to KDIGO guidelines for clinical interpretation. In patients with unstable renal function, e.g. those with acute kidney injury, the eGFR may not accurately reflect actual GFR. Performed By: #### 2 4323-8 ####[facility] LABIA [id number] [place] [address] [place] Glucose [Mass/Vol] 85 mg/dL Normal 74-99 [facility] Comment on above: Order Comment: Angel salazar Type: BLOOD SPECIMENOrdering Facility: [facility] Address: [address] [place] [address] Result Comment: The [place] [employer] (ADA) provides guidance for cutoff values for fasting glucose and random glucose. The ADA defines fasting as no caloric intake for at least 8 hours. Fasting plasma glucose results between 100 to 125 mg/dL indicate increased risk for diabetes (prediabetes).Fasting plasma glucose results greater than or equal to 126 mg/dL meet the criteria for diagnosis of diabetes. In the absence of unequivocal hyperglycemia, results should be confirmed by repeat testing. In a patient with classic symptoms of hyperglycemia or hyperglycemic crisis, random plasma glucose results greater than or equal to 200 mg/dL meet the criteria for diagnosis of diabetes.Reference: Standards of Medical Care in Diabetes 2016, [place] [employer]. Diabetes Care. 2016.39(Suppl 1). Performed By: #### 2 4323-8 ####[facility] LABCLIA [id number] [place] [address] [place] Potassium [Moles/Vol] 4.4 mmol/L Normal 3.7-5.1 [facility] Comment on above: Order Comment: Speci men Type: BLOOD SPECIMENOrdering Facility: [facility] Address: [address] [address] Performed By: #### 2 4323-8 ####[facility] LABIA [id number] [place] [address] [place] Protein [Mass/Vol] 5.8 g/dL Low 6.3-8.0 [facility] Comment on above: Order Comment: Speci men Type: BLOOD SPECIMENOrdering Facility: [facility] Address: [address] Performed By: #### 2 4323-8 ####[facility] LABIA [id number] [place] [address] [place] Sodium [Moles/Vol] 137 mmol/L Normal 136-144 [facility] Comment on above: Order Comment: Speci men Type: BLOOD SPECIMENOrdering Facility: [facility] Address: [address] Performed By: #### 2 4323-8 ####[facility] LABIA [id number] [place] [address] [place] Urea nitrogen [Mass/Vol] 16 mg/dL Normal 7-21 [facility] Comment on above: Order Comment: Speci men Type: BLOOD SPECIMENOrdering Facility: [facility] Address: [address] Performed By: #### 2 4328 ####[facility] LABCLIA [id number] [place] [address] [place] Albumin [Mass/Vol] 3.2 g/dL Low 3.9-4.9 [facility] Comment on above: Order Comment: Speci men Type: BLOOD SPECIMENOrdering Facility: [facility] Address: [address] [place] [address] Performed By: #### 2 4328, 1987-10, ####[facility] LABCLIA [id number] [place] [address] [place] ALP [Catalytic activity/Vol] 90 U/L Normal 34-123 [facility] Comment on above: Order Comment: Speci men Type: BLOOD SPECIMENOrdering Facility: [facility] Address: [address] [place] [address] Performed By: #### 2 4328, ####[facility] LABCLIA [id number] [place] [address] [place] ALT [Catalytic activity/Vol] 13 U/L Normal 7-38 [facility] Comment on above: Order Comment: Speci men Type: BLOOD SPECIMENOrdering Facility: [facility] Address: [address] [place] [address] Performed By: #### 2 8, ####[facility] LABCLIA [id number] [place] [id number] [place] Anion gap [Moles/Vol] 7 mmol/L Low 9-18 [facility] Comment on above: Order Comment: Speci men Type: BLOOD SPECIMENOrdering Facility: [facility] Address: [address] [place] [address] Performed By: #### 2 4323-8, 1987-10, ####[facility] LABCLIA [id number] [place] [address] [place] AST [Catalytic activity/Vol] 13 U/L Normal 13-35 [facility] Comment on above: Order Comment: Speci men Type: BLOOD SPECIMENOrdering Facility: [facility] Address: [address] [place], [place] [address] Performed By: #### 2 4328, ####[facility] LABCLIA [id number] [place] [address] [place] Bilirubin [Mass/Vol] mg/dL Low 0.2-1.3 [facility] Comment on above: Order Comment: Speci men Type: BLOOD SPECIMENOrdering Facility: [facility] Address: [address] [place], [place] [address] Performed By: #### 2 4328, ####[facility] LABCLIA [id number] [place] [address] [place] Calcium [Mass/Vol] 8.2 mg/dL Low 8.5-10.2 [facility] Comment on above: Order Comment: Speci men Type: BLOOD SPECIMENOrdering Facility: [facility] Address: [address] [place], [place] [address] Performed By: #### 2 8, ####[facility] LABCLIA [id number] [place] [address] [place] Chloride [Moles/Vol] 110 mmol/L High 97-105 [facility] Comment on above: Order Comment: Speci men Type: BLOOD SPECIMENOrdering Facility: [facility] Address: [address] [place] [address] Performed By: #### 2 4328, ####[facility] LABCLIA [id number] [place] [id number] [place] CO2 [Moles/Vol] 20 mmol/L Low 22-30 [facility] Comment on above: Order Comment: Speci men Type: BLOOD SPECIMENOrdering Facility: [facility] Address: [address] [place] [id number] Performed By: #### 2 4323-01, ####[facility] LABCLIA [id number] [address] [place] Creatinine [Mass/Vol] 1.98 mg/dL High 0.58-0.96 [facility] Comment on above: Order Comment: Speci men Type: BLOOD SPECIMENOrdering Facility: [facility] Address: [address] [place] [address] Performed By: #### 2 4323-01, ####[facility] LABIA [id number] [address] OF [facility] ESTIMATED GLOMERULAR FILTRATION RATE 33 mL/min/1.73m??? Low >=60 [facility] Comment on above: Order Comment: Speci men Type: BLOOD SPECIMENOrdering Facility: [facility] Address: [address] [place] [address] Result Comment: Isabel mated Glomerular Filtration Rate (eGFR) is calculated using the 2020 CKD-EPI creatinine equation. This equation utilizes serum creatinine, sex, and age as parameters. The creatinine assay has traceable calibration to isotope dilution-mass spectrometry. Refer to KDIGO guidelines for clinical interpretation. In patients with unstable renal function, e.g. those with acute kidney injury, the eGFR may not accurately reflect actual GFR. Performed By: #### 2 4323-01, ####[facility] LABCLIA [id number] [place] [address] [place] Glucose [Mass/Vol] 186 mg/dL High 74-99 [facility] Comment on above: Order Comment: Speci men Type: BLOOD SPECIMENOrdering Facility: [facility] Address: [address] [place] [address] [place] [address] Result Comment: The [place] Diabetes [employer] (ADA) provides guidance for cutoff values for fasting glucose and random glucose. The ADA defines fasting as no caloric intake for at least 8 hours. Fasting plasma glucose results between 100 to 125 mg/dL indicate increased risk for diabetes (prediabetes).Fasting plasma glucose results greater than or equal to 126 mg/dL meet the criteria for diagnosis of diabetes. In the absence of unequivocal hyperglycemia, results should be confirmed by repeat testing. In a patient with classic symptoms of hyperglycemia or hyperglycemic crisis, random plasma glucose results greater than or equal to 200 mg/dL meet the criteria for diagnosis of diabetes.Reference: Standards of Medical Care in Diabetes 2016, [place] [employer]. Diabetes Care. 2016.39(Suppl 1). Performed By: #### 2 4323-01, ####[facility] LABCLIA [id number] [place] [address] [place] Potassium [Moles/Vol] 4.8 mmol/L Normal 3.7-5.1 [facility] Comment on above: Order Comment: Speci men Type: BLOOD SPECIMENOrdering Facility: [facility] Address: [address] [id number] Performed By: #### 2 4323-01, ####[facility] LABCLIA [id number] [place] [address] [place] Protein [Mass/Vol] 5.4 g/dL Low 6.3-8.0 [facility] Comment on above: Order Comment: Speci men Type: BLOOD SPECIMENOrdering Facility: [facility] Address: [address] [id number] Performed By: #### 2 4323-01, ####[facility] LABCLIA [id number] [place] [address] [place] Sodium [Moles/Vol] 137 mmol/L Normal 136-144 [facility] Comment on above: Order Comment: Speci men Type: BLOOD SPECIMENOrdering Facility: [facility] Address: [address] [place], [place] [address] Performed By: #### 2 4323-8, 1987-10, ####[facility] LABCLIA [id number] [place] [address] [place] Urea nitrogen [Mass/Vol] 19 mg/dL Normal 7-21 [facility] Comment on above: Order Comment: Speci men Type: BLOOD SPECIMENOrdering Facility: [facility] Address: [address] [place], [place] [address] Performed By: #### 2 43238, 1987-10, ####[facility] LABCLIA [id number] [place] [address] [place] ECG COMPLETEon 06-27-2022 ECG COMPLETE Normal [facility] ESR Westergren method (Bld) [Velocity]on 06-27-2022 ESR (Bld) [Velocity] 10 mm/h Normal 0-20 [facility] Comment on above: Order Comment: Speci men Type: BLOOD SPECIMENOrdering Facility: [facility] Address: [address] [place] [address] Performed By: #### 4 537-7, 27892-5 ####[facility] LABIA [id number] [place] [address] [place] HISTORY PHYSICALon HISTORY PHYSICAL Normal [facility] Magnesium SerPl-mCncon 06-27 Magnesium [Mass/Vol] 1.5 mg/dL Low 1.7-2.3 [facility] Comment on above: Order Comment: Speci men Type: BLOOD SPECIMENOrdering Facility: [facility] Address: [address] [place] [address] Performed By: #### 2 4323-8, ####[facility] LABCLIA [id number] [place] SARS-CoV-2 RNA Resp Ql DAVIS+p robeon 06-27-2022 SARS-CoV-2 (COVID-19) RNA DAVIS+probe Ql (Resp) COVID 19 RESULT: SARS-CoV-2 (Agent of COVID-19) Not Detected by RT-PCR or equivalent method. This test has been authorized by FDA under an Emergency Use Authorization (EUA). Normal [facility] Comment on above: Performed By: #### 9 4500-6 ####[facility] LABCLIA [id number] [place] [address] [place] SEPSIS LACTATEon 06-27-2022 Lactate [Moles/Vol] 0.6 mmol/L Normal <=2.0 [facility] Comment on above: Order Comment: Speci men Type: BLOOD SPECIMENOrdering Facility: [facility] Address: [address] [place] [address] Performed By: #### S LACT ####[facility] LABCLIA [id number] [address] [place] TYPE + SCREENon 06-27-2022 ABO A Normal [facility] Comment on above: Order Comment: Speci men Type: BLOOD SPECIMENOrdering Facility: [facility] Address: [address] [place] [address] Performed By: #### T SCR ####[facility] BANKCLIA [id number] [place] [address] [place] HISTORICAL AB SCR STATUS Negative Normal [facility] Comment on above: Order Comment: Speci men Type: BLOOD SPECIMENOrdering Facility: [facility] Address: [address] [place] [address] Performed By: #### T SCR ####[facility] BLO[facility] BANKCLIA [id number] [place] [address] [place] Rh Nom (Bld) Positive Normal [facility] Comment on above: Order Comment: Speci men Type: BLOOD SPECIMENOrdering Facility: [facility] Address: [address] [place] [address] Performed By: #### T SCR ####[facility] BLOOD BANKCLIA [id number] [place] [id number] [facility] TYPE AND SCREEN EXPIRATION 06/30/2022 23:59 Normal [facility] Comment on above: Order Comment: Speci men Type: BLOOD SPECIMENOrdering Facility: [facility] Address: [address] [address] Performed By: #### T SCR ####[facility] BLOOD BANKCLIA [id number] [address] CBC AUTO DIFFon 06-26-2022 BASO # 0.1 103/ul Normal 0.0-0.1 [facility] Comment on above: Performed By: #### C BC #### [facility] [address] [place] [address] Dr. Laila Feliciano Basophils/100 WBC (Bld) 0.6 % Normal 0.2-2.0 [facility] Comment on above: Performed By: #### C BC #### [facility] [address] [place] [address] Dr. Laila Feliciano EO # 0.0 103/ul Normal 0.0-0.7 [facility] Comment on above: Performed By: #### C BC #### [facility] [address] [place] [address] Dr. Laila Feliciano Eosinophils/100 WBC (Bld) 0.0 % Critically low 0.9-7.0 [facility] Comment on above: Performed By: #### C BC #### [facility] [address] [place] [address] Dr. Laila Feliciano Erythrocyte distribution width (RBC) [Ratio] 17.0 % Critically high 11.0-15.0 [facility] Comment on above: Performed By: #### C BC #### [facility] [address] [place] [address] Dr. Liala Feliciano Hematocrit (Bld) [Volume fraction] 24.1 % Critically low 36.0-48.0 [facility] Comment on above: Performed By: #### C BC #### [facility] [address] [place] [address] Dr. Laila Feliciano Hemoglobin (Bld) [Mass/Vol] 7.7 g/dL Critically low 12.0-16.0 [facility] Comment on above: Performed By: #### C BC #### [facility] [address] [place] [address] Dr. Laila Feliciano IG # 0.03 10e3/ul Normal 0.00-0.03 [facility] Comment on above: Performed By: #### C BC #### [facility] [address] [place] [address] Dr. Laila Feliciano IG % 0.4 % Normal 0.0-0.5 [facility] Comment on above: Performed By: #### C BC #### [facility] [address] [place] [address] Dr. Laila Feliciano LYMPH # 2.8 103/ul Normal 1.2-3.8 [facility] Comment on above: Performed By: #### C BC #### [facility] [address] [place] [address] Dr. Laila Feliciano Lymphocytes/100 WBC (Bld) 36.0 % Normal 20.5-60.0 [facility] Comment on above: Performed By: #### C BC #### [facility] [address] [place] [address] Dr. Laila Feliciano MANUAL DIFF REQ NO Normal [facility] Comment on above: Performed By: #### C BC #### [facility] [address] [place] [address] Dr. Laila Feliciano MCH (RBC) [Entitic mass] 28.4 pg Normal 26.7-34.0 [facility] Comment on above: Performed By: #### C BC #### [facility] [address] [place] [address] Dr. Laila Feliciano MCHC (RBC) [Mass/Vol] 32.0 g/dL Normal 29.9-35.2 [facility] Comment on above: Performed By: #### C BC #### [facility] [address] [address] [address] Laila Feliciano MCV (RBC) [Entitic vol] 88.9 fL Normal 81.0-99.0 [facility] Comment on above: Performed By: #### C BC #### [facility] [address] [place] [address] [address] Laila Feliciano MONO # 0.8 103/ul Normal 0.3-0.8 [facility] Comment on above: Performed By: #### C BC #### [facility] [address] [place] [address] Dr. Laila Feliciano Monocytes/100 WBC (Bld) 10.1 % Normal 1.7-12.0 [facility] Comment on above: Performed By: #### C BC #### [facility] [address] [place] [address] Dr. Laila Feliciano NEUT # 4.2 103/ul Normal 1.4-6.5 [facility] Comment on above: Performed By: #### C BC #### [facility] [address] [place] [address] Dr. Laila Feliciano Neutrophils/100 WBC (Bld) 52.9 % Normal 43.0-75.0 [facility] Comment on above: Performed By: #### C BC #### [facility] [address] [place] [address] Dr. Laila Feliciano Platelet mean volume (Bld) [Entitic vol] 9.2 fL Critically low 9.5-13.5 [facility] Comment on above: Performed By: #### C BC #### [facility] [address] [place] [address] Dr. Laila Feliciano PLT 506 103/ul Critically high 150-450 [facility] Comment on above: Performed By: #### C BC #### [facility] [address] [place] [address] Dr. Laila Feliciano RBC 2.71 106/ul Critically low 4.20-5.40 [facility] Comment on above: Performed By: #### C BC #### [facility] [address] [place] [address] [address] Laila Feliciano WBC 7.9 103/ul Normal 4.0-11.0 [facility] Comment on above: Performed By: #### C BC #### [facility] [address] [place] [address] [address] Laila Feliciano PROF CHEM 8 (BAS METB)on Anion gap [Moles/Vol] 12.4 mmol/L Normal [facility] Comment on above: Performed By: #### B MP #### [facility] [address] [place] [address] Dr. Laila Feliciano Calcium [Mass/Vol] 8.4 mg/dL Critically low 8.5-10.1 [facility] Comment on above: Performed By: #### B MP #### [facility] [address] [place] [address] Dr. Laila Feliciano Chloride [Moles/Vol] 108 mmol/L Critically high 98-107 [facility] Comment on above: Performed By: #### B MP #### [facility] [address] [address] [address] Laila Feliciano CO2 [Moles/Vol] 23.2 mmol/L Normal 21.0-32.[address] [facility] Comment on above: Performed By: #### B MP #### [facility] [address] [address] [address] Laila Feliciano Creatinine [Mass/Vol] 1.43 mg/dL Critically high 0.55-1.02 [facility] Comment on above: Performed By: #### B MP #### [facility] [address] [address] [address] Laila Feliciano EGFR-AF PAKISTANI 50 mL/min/1.73m2 Critically low >=60 [facility] Comment on above: Performed By: #### B MP #### [facility] [address] [address] [address] Laila Feliciano EGFR-NON AF PAKISTANI 42 mL/min/1.73m2 Critically low >=60 [facility] Comment on above: Performed By: #### B MP #### [facility] [address] [address] [address] Laila Feliciano Glucose [Mass/Vol] 113 mg/dL Critically high 74-106 T [facility] Comment on above: Performed By: #### B MP #### [facility] [address] [address] [address] Laila Feliciano Potassium [Moles/Vol] 4.6 mmol/L Normal 3.5-5.1 [facility] Comment on above: Performed By: #### B MP #### [facility] [address] [address] [address] Laila Feliciano Sodium [Moles/Vol] 139 mmol/L Normal 136-145 [facility] Comment on above: Performed By: #### B MP #### [facility] [address] [address] [address] Laila Feliciano Urea nitrogen [Mass/Vol] 21.0 mg/dL Critically high 7.0-18.0 [facility] Comment on above: Performed By: #### B MP #### [facility] [address] [address] [address] Laila Feliciano Urea nitrogen/Creatinine [Mass ratio] 14.7 mg/mg Normal [facility] Comment on above: Performed By: #### B MP #### [facility] [address] [address] [address] Laila Feliciano CBC AUTO DIFFon 06-25-2022 BASO # 0.0 103/ul Normal 0.0-0.1 [facility] Comment on above: Performed By: #### P OCGLUC #### [facility] [address] [address] [address] Laila Feliciano Basophils/100 WBC (Bld) 0.4 % Normal 0.2-2.0 [facility] Comment on above: Performed By: #### P OCGLUC #### [facility] [address] [address] [address] Laila Felciiano EO # 0.0 103/ul Normal 0.0-0.7 [facility] Comment on above: Performed By: #### P OCGLUC #### [facility] [address] [place] [address] Dr. Laila Feliciano Eosinophils/100 WBC (Bld) 0.2 % Critically low 0.9-7.0 [facility] Comment on above: Performed By: #### P OCGLUC #### [facility] [address] [place] [address] Dr. Laila Feliciano Erythrocyte distribution width (RBC) [Ratio] 16.7 % Critically high 11.0-15.0 [facility] Comment on above: Performed By: #### P OCGLUC #### [facility] [address] [place] [address] Dr. Laila Feliciano Hematocrit (Bld) [Volume fraction] 22.1 % Critically low 36.0-48.0 [facility] Comment on above: Performed By: #### P OCGLUC #### [facility] [address] [place] [address] Dr. Laila Feliciano Hemoglobin (Bld) [Mass/Vol] 6.8 g/dL Critically low 12.0-16.0 [facility] Comment on above: Performed By: #### P OCGLUC #### [facility] [address] [place] [address] Dr. Laila Feliciano IG # 0.00 10e3/ul Normal 0.00-0.03 [facility] Comment on above: Performed By: #### P OCGLUC #### [facility] [address] [place] [address] Dr. Laila Feliciano IG % 0.5 % Normal 0.0-0.5 [facility] Comment on above: Performed By: #### P OCGLUC #### [facility] [address] [place] [address] Dr. Laila Feliciano LYMPH # 1.8 103/ul Normal 1.2-3.8 [facility] Comment on above: Performed By: #### P OCGLUC #### [facility] [address] [place] [address] Dr. Laila Feliciano Lymphocytes/100 WBC (Bld) 13.8 % Critically low 20.5-60.0 [facility] Comment on above: Performed By: #### P OCGLUC #### [facility] [address] [place] [address] Dr. Laila Feliciano MANUAL DIFF REQ NO Normal [facility] Comment on above: Performed By: #### P OCGLUC #### [facility] [address] [place] [address] Dr. Laila Feliciano MCH (RBC) [Entitic mass] 27.8 pg Normal 26.7-34.0 [facility] Comment on above: Performed By: #### P OCGLUC #### [facility] [address] [place] [address] Dr. Laila Feliciano MCHC (RBC) [Mass/Vol] 30.8 g/dL Normal 29.9-35.2 [facility] Comment on above: Performed By: #### P OCGLUC #### [facility] [address] [place] [address] Dr. Laila Feliciano MCV (RBC) [Entitic vol] 90.2 fL Normal 81.0-99.0 [facility] Comment on above: Performed By: #### P OCGLUC #### [facility] [address] [place] [address] Dr. Laila Feliciano MONO # 0.8 103/ul Normal 0.3-0.8 [facility] Comment on above: Performed By: #### P OCGLUC #### [facility] [address] [place] [address] Dr. Laila Feliciano Monocytes/100 WBC (Bld) 6.1 % Normal 1.7-12.0 [facility] Comment on above: Performed By: #### P OCGLUC #### [facility] [address] [place] [address] Dr. Laila Feliciano NEUT # 10.3 103/ul Critically high 1.4-6.[address] [facility] Comment on above: Performed By: #### P OCGLUC #### [facility] [address] [place] [address] Dr. Laila Feliciano Neutrophils/100 WBC (Bld) 79.0 % Critically high 43.0-75.0 [facility] Comment on above: Performed By: #### P OCGLUC #### [facility] [address] [address] [address] Laila Feliciano Platelet mean volume (Bld) [Entitic vol] 9.4 fL Critically low 9.5-13.5 [facility] Comment on above: Performed By: #### P OCGLUC #### [facility] [address] [address] [address] Laila Feliciano PLT 649 103/ul Critically high 150-[address] [facility] Comment on above: Performed By: #### P OCGLUC #### [facility] [address] [address] [address] Laila Feliciano RBC 2.45 106/ul Critically low 4.20-5.[address] [facility] Comment on above: Performed By: #### P OCGLUC #### [facility] [address] [address] [address] Laila Feliciano WBC 13.0 103/ul Critically high 4.0-11.[address] [facility] Comment on above: Performed By: #### P OCGLUC #### [facility] [address] [place] [address] Dr. Laila Feliciano GENTAMICIN RANDOMon 06-25-19 GENTAMICIN 3.3 ug/mL Normal [facility] Comment on above: Performed By: #### C BC #### [facility] [address] [place] [address] Dr. Laila Feliciano HEMOGLOBIN AND HEMATOCRITon 06-25-2022 Hematocrit (Bld) [Volume fraction] 28.0 % Critically low 36.0-48.0 [facility] Comment on above: Performed By: #### P OCGLUC #### [facility] [address] [place] [address] Dr. Laila Feliciano Hemoglobin (Bld) [Mass/Vol] 8.9 g/dL Critically low 12.0-16.0 [facility] Comment on above: Performed By: #### P OCGLUC #### [facility] [address] [place] [address] Dr. Laila Feliciano CBC AUTO DIFFon 06-24-2022 BASO # 0.1 103/ul Normal 0.0-0.1 [facility] Comment on above: Performed By: #### T NS #### [facility] [address] [address] [address] Laila Feliciano Basophils/100 WBC (Bld) 0.4 % Normal 0.2-2.0 [facility] Comment on above: Performed By: #### T NS #### [facility] [address] [address] [address] Laila Feliciano EO # 0.0 103/ul Normal 0.0-0.7 [facility] Comment on above: Performed By: #### T NS #### [facility] [address] [place] [address] Dr. Laila Feliciano Eosinophils/100 WBC (Bld) 0.0 % Critically low 0.9-7.0 [facility] Comment on above: Performed By: #### T NS #### [facility] [address] [place] [address] Dr. Laila Feliciano Erythrocyte distribution width (RBC) [Ratio] 16.8 % Critically high 11.0-15.0 [facility] Comment on above: Performed By: #### T NS #### [facility] [address] [place] [address] Dr. Laila Feliciano Hematocrit (Bld) [Volume fraction] 23.4 % Critically low 36.0-48.0 [facility] Comment on above: Performed By: #### T NS #### [facility] [address] [place] [address] Dr. Laila Feliciano Hemoglobin (Bld) [Mass/Vol] 7.1 g/dL Critically low 12.0-16.0 [facility] Comment on above: Performed By: #### T NS #### [facility] [address] [place] [address] Dr. Laila Feliciano IG # 0.08 10e3/ul Critically high 0.00-0.03 [facility] Comment on above: Performed By: #### T NS #### [facility] [address] [place] [address] Dr. Laila Feliciano IG % 0.5 % Normal 0.0-0.5 [facility] Comment on above: Performed By: #### T NS #### [facility] [address] [place] [address] Dr. Laila Feliciano LYMPH # 1.8 103/ul Normal 1.2-3.8 [facility] Comment on above: Performed By: #### T NS #### [facility] [address] [place] [address] Dr. Laila Feliciano Lymphocytes/100 WBC (Bld) 12.2 % Critically low 20.5-60.0 [facility] Comment on above: Performed By: #### T NS #### [facility] [address] [place] [address] Dr. Laila Feliciano MANUAL DIFF REQ NO Normal [facility] Comment on above: Performed By: #### T NS #### [facility] [address] [place] [address] Dr. Laila Feliciano MCH (RBC) [Entitic mass] 27.1 pg Normal 26.7-34.0 [facility] Comment on above: Performed By: #### T NS #### [facility] [address] [place] [address] Dr. Laila Feliciano MCHC (RBC) [Mass/Vol] 30.3 g/dL Normal 29.9-35.2 [facility] Comment on above: Performed By: #### T NS #### [facility] [address] [place] [address] Dr. Laila Feliciano MCV (RBC) [Entitic vol] 89.3 fL Normal 81.0-99.0 [facility] Comment on above: Performed By: #### T NS #### [facility] [address] [place] [address] Dr. Laila Feliciano MONO # 0.8 103/ul Normal 0.3-0.8 [facility] Comment on above: Performed By: #### T NS #### [facility] [address] [place] [address] Dr. Laila Feliciano Monocytes/100 WBC (Bld) 5.5 % Normal 1.7-12.0 [facility] Comment on above: Performed By: #### T NS #### [facility] [address] [address] [address] Laila Feliciano NEUT # 11.9 103/ul Critically high 1.4-6.[address] [facility] Comment on above: Performed By: #### T NS #### [facility] [address] [place] [address] Dr. Laila Feliciano Neutrophils/100 WBC (Bld) 81.4 % Critically high 43.0-75.0 [facility] Comment on above: Performed By: #### T NS #### [facility] [address] [place] [address] Dr. Laila Feliciano Platelet mean volume (Bld) [Entitic vol] 9.1 fL Critically low 9.5-13.5 [facility] Comment on above: Performed By: #### T NS #### [facility] [address] [place] [address] Dr. Laila Feliciano PLT 677 103/ul Critically high 150-450 [facility] Comment on above: Performed By: #### T NS #### [facility] [address] [place] [address] Dr. Laila Feliciano RBC 2.62 106/ul Critically low 4.20-5.40 [facility] Comment on above: Performed By: #### T NS #### [facility] [address] [place] [address] Dr. Laila Feliciano WBC 14.6 103/ul Critically high 4.0-11.0 [facility] Comment on above: Performed By: #### T NS #### [facility] [address] [place] [address] ABD/PELVIS WO CONon 06-24 CT ABD/PELVIS WO CON EXAMINATION: CT ABD/PELVIS WO CON, 06/24/2022 4:11 PM EST HISTORY: Fever nausea, vomiting, rectal bleeding COMPARISON: 05/19/2022 TECHNIQUE: CT scan of the abdomen and pelvis was performed without IV contrast. CT dose reduction technique was used, including Automated Exposure Control. FINDINGS: LUNG BASES: No visible pulmonary or pleural disease. LIVER: No enlargement, atrophy, abnormal density, or significant focal lesion. BILIARY: Pneumobilia. 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 Soft tissue attenuation in the left upper quadrant likely represents a splenule ADRENALS: No mass or enlargement. KIDNEYS: No hydronephrosis or obstructing nephrolithiasis. Right renal cortical hypodensity possibly a cyst BOWEL/MESENTERY: Moderate wall thickening of the sigmoid colon and rectum measuring up to 1.1 cm. Small amount of perirectal fat stranding. Nonobstructive bowel gas pattern. AORTA/VASCULAR: No aortic aneurysm. Minimal atherosclerosis. RETROPERITONEUM: No mass or adenopathy. LYMPH NODES: No adenopathy. URINARY BLADDER: No visible focal wall thickening, lesion, or calculus. PELVIC ORGANS: No visible mass. Pelvic organs appropriate for patient age. IUD normally positioned within the endometrial cavity ABDOMINAL WALL: No mass or hernia. BONES: No bony lesion or fracture. OTHER: Negative. IMPRESSION: Mild thickening of the sigmoid colon and rectum. Consider inflammatory, infectious and ischemic proctocolitis Electronically authenticated by: PATTI CREWS Date: 2022-06-24 16:54 Normal [facility]07 SARS-CoV-2 (COVID-19) RNA DAVIS+probe Ql (Unsp spec) Not detected Normal NOT DETECTED [facility] Comment on above: Result Comment: When diagnostic testing is negative, the possibility of a false negative should be considered in the context of a patient's recent exposures and the presence of clinical signs and symptoms consistent with SARS-CoV-2. This test is not yet approved or cleared by the [place] FDA. When there are no FDA-approved or cleared tests available, and other criteria are met, FDA can make tests available under an emergency access mechanism called an Emergency Use Authorization (EUA). The EUA for this test is supported by the Dialysis Chief Equipment Technician of Health and Human Service's declaration that circumstances exist to justify the emergency use of in vitro diagnostics for the detection and/or diagnosis of the virus that causes COVID-19. This EUA will remain in effect for the duration of the COVID-19 declaration justifying emergency of IVDs, unless it is terminated or revoked by the FDA (after which the test may no longer be used). Performed By: #### P OCGLUC #### [facility] [address] [place] [address] Dr. Laila Feliciano ER URINE PROFILEon 3 Bilirubin Ql (U) Negative Normal NEGATIVE [facility] Comment on above: Performed By: #### C BC #### [facility] [address] [place] [address] Dr. Laila Feliciano Clarity (U) CLEAR Normal CLEAR [facility] Comment on above: Performed By: #### C BC #### [facility] [address] [place] [address] Dr. Laila Feliciano Color (U) LT. YELLOW Normal YELLOW [facility] Comment on above: Performed By: #### C BC #### [facility] [address] [place] [address] Dr. Laila Feliciano ERUAHD A micrscopic examina tion will be performed if indicated. Normal [facility] Comment on above: Performed By: #### C BC #### [facility] [address] [place] [address] Dr. Laila Feliciano Glucose Ql (U) 100 mg/dl Abnormal NEGATIVE [facility] Comment on above: Performed By: #### C BC #### [facility] [address] [place] [address] Dr. Laila Feliciano Hemoglobin Ql (U) Negative Normal NEGATIVE [facility] Comment on above: Performed By: #### C BC #### [facility] [address] [place] [address] Dr. Laila Feliciano Ketones Ql (U) Negative Normal NEGATIVE [facility] Comment on above: Performed By: #### C BC #### [facility] [address] [place] [address] Dr. Laila Feliciano LEUKOCYTES Negative Normal NEGATIVE [facility] Comment on above: Performed By: #### C BC #### [facility] [address] [place] [address] Dr. Laila Feliciano Nitrite Ql (U) Negative Normal NEGATIVE [facility] Comment on above: Performed By: #### C BC #### [facility] [address] [place] [address] Dr. Laila Feliciano pH (U) 5.5 [pH] Normal 5-9 [facility] Comment on above: Performed By: #### C BC #### [facility] [address] [place] [address] Dr. Laila Feliciano SPEC GRAVITY 1.020 Normal 1.005-<=1. 025 [facility] Comment on above: Performed By: #### C BC #### [facility] [address] [place] [address] Dr. Laila Feliciano UA PROTEIN Negative Normal NEGATIVE/ TRACE [facility] Comment on above: Performed By: #### C BC #### [facility] [address] [place] [address] Dr. Laila Feliciano UR MICRO IND NOT INDICATED Normal [facility] Comment on above: Performed By: #### C BC #### [facility] [address] [place] [address] Dr. Laila Feliciano Urobilinogen Qn (U) 0.2 {Edgar'U}/dL Normal 0.2 - 1. 0 [facility] Comment on above: Performed By: #### C BC #### [facility] [address] [place] [address] Dr. Laila Feliciano INFLUENZA A AND B AGon 06-24 [facility] SEE BELOW Normal [facility] Comment on above: Result Comment: Nega tive for Flu A protein angiten. Infection due to Flu A cannot be ruled out. Flu A angiten in the sample may be below the detection limit of the test. Performed By: #### T NS #### [facility] [address] [place] [address] Dr. Laila Feliciano INFLUBNEGH SEE BELOW Normal [facility] Comment on above: Result Comment: Nega tive for Flu B protein antigen. Infection due to Flu B cannot be ruled out. Flu B antigen in the sample may be below the detection limit of the test. Performed By: #### T NS #### [facility] [address] [place] [address] Dr. Laila Feliciano INFLUENZA A AG Negative Normal NEGATIVE SEE COMMENT [facility] Comment on above: Performed By: #### T NS #### [facility] [address] [place] [address] Dr. Laila Feliciano INFLUENZA B AG Negative Normal NEGATIVE SEE COMMENT [facility] Comment on above: Performed By: #### T NS #### [facility] [address] [address] [address] Laila Feliciano LACTATE/LACTIC ACIDon 2022 Lactate [Moles/Vol] 0.8 mmol/L Normal 0.4-1.9 [facility] Comment on above: Performed By: #### P RBC #### [facility] [address] [place] [address] Dr. Laila Feliciano PREG HCG QUALon 06-24-2022 , QUAL Negative Normal NEGATIVE [facility] Comment on above: Performed By: #### P RBC #### [facility] [address] [place] [address] Dr. Laila Feliciano PROF 14(COMP METB)on 023 Albumin [Mass/Vol] 3.6 g/dL Normal 3.4-5.0 [facility] Comment on above: Performed By: #### B LDCX2 #### [facility] [address] [place] [address] Dr. Laila Feliciano Albumin/Globulin [Mass ratio] 1.0 {ratio} Normal [facility] Comment on above: Performed By: #### B LDCX2 #### [facility] [address] [place] [address] Dr. Laila Feliciano ALP [Catalytic activity/Vol] 122 U/L Critically high 46-116 [facility] Comment on above: Performed By: #### B LDCX2 #### [facility] [address] [place] [address] Dr. Laila Feliciano ALT [Catalytic activity/Vol] 20 U/L Normal 14-59 [facility] Comment on above: Performed By: #### B LDCX2 #### [facility] [address] [address] [address] Laila Feliciano Anion gap [Moles/Vol] 11.9 mmol/L Normal [facility] Comment on above: Performed By: #### B LDCX2 #### [facility] [address] [address] [address] Laila Feliciano AST [Catalytic activity/Vol] 15 U/L Normal 15-37 [facility] Comment on above: Performed By: #### B LDCX2 #### [facility] [address] [address] [address] Laila Feliciano Bilirubin [Mass/Vol] 0.2 mg/dL Normal 0.2-1.0 [facility] Comment on above: Performed By: #### B LDCX2 #### [facility] [address] [place] [address] Dr. Laila Feliciano Calcium [Mass/Vol] 8.9 mg/dL Normal 8.5-10.1 [facility] Comment on above: Performed By: #### B LDCX2 #### [facility] [address] [address] [address] Laila Feliciano Chloride [Moles/Vol] 107 mmol/L Normal 98-107 [facility] Comment on above: Performed By: #### B LDCX2 #### [facility] [address] [place] [address] Dr. Laila Feliciano CO2 [Moles/Vol] 23.1 mmol/L Normal 21.0-32.[address] [facility] Comment on above: Performed By: #### B LDCX2 #### [facility] [address] [address] [address] Laila Feliciano Creatinine [Mass/Vol] 1.91 mg/dL Critically high 0.55-1.02 [facility] Comment on above: Performed By: #### B LDCX2 #### [facility] [address] [place] [address] Dr. Laila Feliciano EGFR-AF PAKISTANI 36 mL/min/1.73m2 Critically low >=60 [facility] Comment on above: Performed By: #### B LDCX2 #### [facility] [address] [address] [address] Laila Feliciano EGFR-NON AF PAKISTANI 30 mL/min/1.73m2 Critically low >=60 [facility] Comment on above: Performed By: #### B LDCX2 #### [facility] [address] [address] [address] Laila Feliciano Globulin (S) [Mass/Vol] 3.7 g/dL Normal [facility] Comment on above: Performed By: #### B LDCX2 #### [facility] [address] [address] [address] Laila Feliciano Glucose [Mass/Vol] 177 mg/dL Critically high 74-106 [facility] Comment on above: Performed By: #### B LDCX2 #### [facility] [address] [address] [address] Laila Feliciano Potassium [Moles/Vol] 5.0 mmol/L Normal 3.5-5.1 [facility] Comment on above: Performed By: #### B LDCX2 #### [facility] [address] [address] [address] Laila Feliciano Protein [Mass/Vol] 7.3 g/dL Normal 6.4-8.2 [facility] Comment on above: Performed By: #### B LDCX2 #### [facility] [address] [address] [address] Laila Feliciano Sodium [Moles/Vol] 137 mmol/L Normal 136-145 [facility] Comment on above: Performed By: #### B LDCX2 #### [facility] [address] [address] [address] Laila Feliciano Urea nitrogen [Mass/Vol] 32.0 mg/dL Critically high 7.0-18.0 [facility] Comment on above: Performed By: #### B LDCX2 #### [facility] [address] [address] [address] Laila Feliciano Urea nitrogen/Creatinine [Mass ratio] 16.8 mg/mg Normal [facility] Comment on above: Performed By: #### B [id number] #### [facility] [address] [address] [address] Laila Feliciano PROTIMEon 06-24-2022 INR Coag (PPP) [Relative time] 1.00 {INR} Normal [facility] Comment on above: Performed By: #### P RBC #### [facility] [address] [address] [address] Laila Feliciano INR GUIDELINES SEE BELOW Normal [facility] Comment on above: Result Comment: SIDNEY RED INR: 2.0 - 3.0 CONDITIONS NOT LISTED BELOW 2.5 - 3.5 FOR PROSTHETIC HEART VALVE REPLACEMENT 2.5 - 3.5 RECURRENT THROMBOSIS Performed By: #### P RBC #### [facility] [address] [place] [address] Dr. Laila Feliciano PT Coag (PPP) [Time] 10.6 s Normal 9.0-11.6 [facility] Comment on above: Performed By: #### P RBC #### [facility] [address] [address] [address] Laila Feliciano PTTon 06-24-2022 aPTT Coag (Bld) [Time] s Critically high 22.3-36. 2 [facility] Comment on above: Performed By: #### P RBC #### [facility] [address] [place] [address] Dr. Laila Feliciano TYPE AND SCREENon 06-24-2022 TYPE AND SCREEN Negative Normal [facility] Comment on above: Performed By: #### C BC #### [facility] [address] [place] [address] Dr. Laila Feliciano XR CHEST 1 Von 06-24-2022 XR CHEST 1 V EXAMINATION: XR CHES T 1 V, 06/24/2022 5:33 PM EST HISTORY: Fever COMPARISON: Chest 04/02/2022. TECHNIQUE: Chest x-ray: One view. FINDINGS: SUPPORT APPARATUS/POST-SURGICAL CHANGES: There is a right chest central venous access port with tip near the cavoatrial junction which is stable. CARDIOMEDIASTINAL SILHOUETTE: Normal. AIRWAYS/LUNGS: Normal. PLEURAL SPACES: No pleural effusion or pneumothorax. BONES AND SOFT TISSUES: No acute abnormality. IMPRESSION: Normal chest radiograph. Electronically authenticated by: [place] VALVERDE Date: 2022-06-24 18:40 Normal [facility] CNPNon 06-19-2022 CNPN Normal [facility] CNPNon 06-09-2022 CNPN Normal [facility] CNPNon 06-03-2022 CNPN Normal [facility] CNOVon 06-02-2022 CNOV Normal [facility] CBC with Auto Differentialon 05-31-2022 Absolute Eos # 0.03 [facility] Absolute Immature Granulocyte [facility] Absolute Lymph # 3.35 [facility] Absolute Howell # 0.[address] [facility] Basophils (Bld) [#/Vol] 0.09 10*3/uL [facility] Basophils/100 WBC (Bld) 1 % 0 - 2 % [facility] Eosinophils/100 WBC (Bld) 0 % Low 1 - 4 % [facility] Hematocrit (Bld) [Volume fraction] 30.2 % Low 36.3 - 47.1 % [facility] Hemoglobin (Bld) [Mass/Vol] 9.5 g/dL Low 11.9 - 15.1 g/dL [facility] Immature granulocytes/100 WBC (Bld) 0 % 0 [facility] Interpretation and review of laboratory results Abnormal [facility] Lymphocytes/100 WBC (Bld) 34 % 24 - 43 % [facility] MCH (RBC) [Entitic mass] 28.9 pg 25.2 - 33.[address] [facility] MCHC (RBC) [Mass/Vol] 31.5 g/dL 28.4 - 34.8 g/dL [facility] MCV (RBC) [Entitic vol] 91.8 fL 82.6 - 102.[address] [facility] Monocytes/100 WBC (Bld) 9 % 3 - 12 % [facility] NRBC Automated 0.0 0.0 per 100 WBC [facility] Platelet distribution width (Bld) [Ratio] 17.2 % High 11.8 - 14.4 % [facility] Platelet mean volume (Bld) [Entitic vol] 10.2 fL 8.1 - 13.5 fL [facility] Platelets (Bld) [#/Vol] 394 10*3/uL [facility] RBC (Bld) [#/Vol] 3.29 10*6/uL Low 3.95 - 5.11 m/uL [facility] Segmented neutrophils/100 WBC (Bld) 56 % 36 - 65 % [facility] Segs Absolute 5.57 [facility] WBC (Bld) [#/Vol] 9.9 10*3/uL [facility] Comprehensive Metabolic Pane wilver 05-31-2022 Albumin [Mass/Vol] 4.3 g/dL 3.5 - 5.2 g/dL [facility] Albumin/Globulin [Mass ratio] 1.3 {ratio} 1.0 - 2.5 [facility] ALP (Bld) [Catalytic activity/Vol] 120 U/L High 35 - 104 U/L [facility] ALT [Catalytic activity/Vol] 20 U/L 5 - 33 U/L [facility] Anion gap [Moles/Vol] 9 mmol/L 9 - 17 mmol/L [facility] AST [Catalytic activity/Vol] 22 U/L NINF - 32 U/L [facility] Bilirubin [Mass/Vol] 0.2 mg/dL Low 0.3 - 1 .2 mg/dL [facility] Calcium [Mass/Vol] 8.9 mg/dL 8.6 - 10. 4 mg/dL [facility] Chloride [Moles/Vol] 103 mmol/L 98 - 10 7 mmol/L [facility] CO2 [Moles/Vol] 23 mmol/L 20 - 31 mmol/L [facility] Creatinine [Mass/Vol] 1.89 mg/dL High 0.50 - 0.90 mg/dL [facility] GFR/1.73 sq M.predicted MDRD (S/P/Bld) [Vol rate/Area] 35 mL/min/{1.73_m2} Low - PINF [facility] Comment on above: Effective Mar 09, 2022 These results are not intended for use in patients <18 years of age. eGFR results are calculated without a race factor using the 2020 CKD-EPI equation. Careful clinical correlation is recommended, particularly when comparing to results calculated using previous equations. The CKD-EPI equation is less accurate in patients with extremes of muscle mass, extra-renal metabolism of creatine, excessive creatine ingestion, or following therapy that affects renal tubular secretion. Glucose [Mass/Vol] 146 mg/dL High 70 - 99 mg/dL [facility] [employer] Potassium [Moles/Vol] 4.0 mmol/L 3.7 - 5.3 mmol/L [facility] [employer] Protein [Mass/Vol] 7.5 g/dL 6.4 - 8.3 g/dL [facility] Sodium [Moles/Vol] 135 mmol/L 135 - 144 mmol/L [facility] Urea nitrogen (BldV) [Mass/Vol] 19 mg/dL 6 - 20 mg/dL [facility] Urea nitrogen/Creatinine (Bld) [Mass ratio] 10 9 - 20 [facility] Lipaseon 05-31-2022 Lipase [Catalytic activity/Vol] 5 U/L Low 13 - 60 U/L [facility] No Panel Informationon 05-31 Interpretation and review of laboratory results Abnormal [facility] XR ABDOMEN (2 VIEWS)on 05-31 Increased stool [facility] RIS CONSOLIDATED EXAMINATION: TWO XRAY VIEWS OF THE ABDOMEN 05/31/2022 5:27 pm COMPARISON: May 10, 2022 HISTORY: ORDERING SYSTEM PROVIDED HISTORY: multiple CT, most [id number], abdo pain TECHNOLOGIST PROVIDED HISTORY: multiple CT, most [id number], abdo pain FINDINGS: Surgical clips right upper quadrant and upper abdomen. Increased stool. Bowel gas pattern nonspecific. Osseous structures unremarkable. Metallic device left lower quadrant. Catheter fragment left lower quadrant unchanged. IUD in the pelvis. [facility] RIS CONSOLIDATED Ozzie Fraga MD - 05/31/2022 EXAMINATION: TWO XRAY VIEWS OF THE ABDOMEN 05/31/2022 5:27 pm COMPARISON: May 10, 2022 HISTORY: ORDERING SYSTEM PROVIDED HISTORY: multiple CT, most [id number], abdo pain TECHNOLOGIST PROVIDED HISTORY: multiple CT, most [id number], abdo pain FINDINGS: Surgical clips right upper quadrant and upper abdomen. Increased stool. Bowel gas pattern nonspecific. Osseous structures unremarkable. Metallic device left lower quadrant. Catheter fragment left lower quadrant unchanged. IUD in the pelvis. IMPRESSION: Increased stool [employer] Work Phone: Radiology Study observation (narrative) [employer] [facility] [employer] Work Phone: XR ABDOMEN (2 VIEWS)Ordered By: Ozzie Fraga on 05-31-2022 [facility] Work Phone: CBC with Auto Differentialon 05-28-2022 Absolute Eos # [facility] [employer] Absolute Immature Granulocyte 0.04 [facility] [employer] Absolute Lymph # 1.21 [facility] [employer] Absolute Howell # 0.49 [facility] RS [facility] [employer] Basophils (Bld) [#/Vol] 0.06 10*3/uL [facility] [employer] Basophils/100 WBC (Bld) 1 % 0 - 2 % [facility] [employer] Eosinophils/100 WBC (Bld) 0 % Low 1 - 4 % [facility] [employer] Hematocrit (Bld) [Volume fraction] 34.0 % Low 36.3 - 47.1 % [facility] [employer] Hemoglobin (Bld) [Mass/Vol] 10.4 g/dL Low 11.9 - 15.1 g/dL [facility] [employer] Immature granulocytes/100 WBC (Bld) 1 % High 0 [facility] [employer] Interpretation and review of laboratory results Abnormal [facility] [employer] Lymphocytes/100 WBC (Bld) 14 % Low 24 - 43 % [facility] [employer] MCH (RBC) [Entitic mass] 28.9 pg 25.2 - 33.5 pg [facility] [employer] MCHC (RBC) [Mass/Vol] 30.6 g/dL 28.4 - 34.8 g/dL [facility] [employer] MCV (RBC) [Entitic vol] 94.4 fL 82.6 - 102.9 fL [facility] [employer] Monocytes/100 WBC (Bld) 6 % 3 - 12 % [facility] [employer] NRBC Automated 0.0 0.0 per 100 WBC [facility] Platelet distribution width (Bld) [Ratio] 17.2 % High 11.8 - 14.4 % [facility] Platelet mean volume (Bld) [Entitic vol] 10.3 fL 8.1 - 13.5 fL [facility] Platelets (Bld) [#/Vol] 449 10*3/uL [facility] RBC (Bld) [#/Vol] 3.60 10*6/uL Low 3.95 - 5.11 m/uL [facility] Segmented neutrophils/100 WBC (Bld) 78 % High 36 - 65 % [facility] Segs Absolute 6.99 [facility] WBC (Bld) [#/Vol] 8.8 10*3/uL [facility] COVID-19, Rapidon 05-28-2022 SARS-CoV-2 (COVID-19) RNA DAVIS+probe Ql (Unsp spec) Not detected Not Detected [facility] Comment on above: Rapid NAAT: The specimen is NEGATIVE for SARS-CoV-2, the novel coronavirus associated with COVID-19. The ID NOW COVID-19 assay is designed to detect the virus that causes COVID-19 in patients with signs and symptoms of infection who are suspected of COVID-19. An individual without symptoms of COVID-19 and who is not shedding SARS-CoV-2 virus would expect to have a negative (not detected) result in this assay. Negative results should be treated as presumptive and, if inconsistent with clinical signs and symptoms or necessary for patient management, should be tested with an alternative molecular assay. Negative results do not preclude SARS-CoV-2 infection and should not be used as the sole basis for patient management decisions. Fact sheet for Healthcare Providers: https://www.fda.gov/media/369246/download Fact sheet for Patients: https://www.fda.gov/media/332180/download Methodology: Isothermal Nucleic Acid Amplification Specimen Description .NASOPHARYNGEAL SWAB [facility] CT ABDOMEN PELVIS W IV CONTR AST Additional Contrast? Noneon 05-28-2022 Thickening of the wa ll of the rectum and sigmoid colon keeping with colitis. This is similar to the prior examination. There is no evidence for any bowel distension. Patient is status post Whipple's procedure, cholecystectomy. 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 There is degenerative disc disease of the L5-S1 disc. [facility] CONSOLIDATED EXAMINATION: CT OF THE ABDOMEN AND PELVIS WITH CONTRAST 05/28/2022 1:18 pm TECHNIQUE: CT of the abdomen and pelvis was performed with the administration of intravenous contrast. Multiplanar reformatted images are provided for review. Automated exposure control, iterative reconstruction, and/or weight based adjustment of the mA/kV was utilized to reduce the radiation dose to as low as reasonably achievable. COMPARISON: 05/04/2022 HISTORY: ORDERING SYSTEM PROVIDED HISTORY: abd pain TECHNOLOGIST PROVIDED HISTORY: abd pain Decision Support Exception - unselect if not a suspected or confirmed emergency medical condition->Emergency Medical Condition (MA) FINDINGS: Lower Chest: Unremarkable Organs: The liver appears unremarkable. The patient is status post Whipple's procedure. There is no significant intrahepatic biliary dilatation. There is splenosis in the the splenic bed. The adrenal glands and kidneys appear normal. GI/Bowel: Residual stomach is unremarkable. There is thickening of the wall of the sigmoid colon and rectum in keeping with colitis. This is similar to the prior examination. Small bowel loops appear normal. Pelvis: There is a IUD in the uterus. The bladder appears unremarkable. There is no pelvic adenopathy. Peritoneum/Retroperitoneu m: Unremarkable Bones/Soft Tissues: There is degenerative disc disease of the L5-S1 disc, with anterior osteophytes. [facility] CONSOLIDATED Surya Curry MD - 05/28/2022 EXAMINATION: CT OF THE ABDOMEN AND PELVIS WITH CONTRAST 05/28/2022 1:18 pm TECHNIQUE: CT of the abdomen and pelvis was performed with the administration of intravenous contrast. Multiplanar reformatted images are provided for review. Automated exposure control, iterative reconstruction, and/or weight based adjustment of the mA/kV was utilized to reduce the radiation dose to as low as reasonably achievable. COMPARISON: 05/04/2022 HISTORY: ORDERING SYSTEM PROVIDED HISTORY: abd pain TECHNOLOGIST PROVIDED HISTORY: abd pain Decision Support Exception - unselect if not a suspected or confirmed emergency medical condition->Emergency Medical Condition (MA) FINDINGS: Lower Chest: Unremarkable Organs: The liver appears unremarkable. The patient is status post Whipple's procedure. There is no significant intrahepatic biliary dilatation. There is splenosis in the the splenic bed. The adrenal glands and kidneys appear normal. GI/Bowel: Residual stomach is unremarkable. There is thickening of the wall of the sigmoid colon and rectum in keeping with colitis. This is similar to the prior examination. Small bowel loops appear normal. Pelvis: There is a IUD in the uterus. The bladder appears unremarkable. There is no pelvic adenopathy. Peritoneum/Retroperitoneu m: Unremarkable Bones/Soft Tissues: There is degenerative disc disease of the L5-S1 disc, with anterior osteophytes. IMPRESSION: Thickening of the wall of the rectum and sigmoid colon keeping with colitis. This is similar to the prior examination. There is no evidence for any bowel distension. Patient is status post Whipple's procedure, cholecystectomy. 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 There is degenerative disc disease of the L5-S1 disc. [employer] Work Phone: Radiology Study observation (narrative) [employer] Phone: CT ABDOMEN PELVIS W IV CONTR AST Additional Contrast? NoneOrdered By: Surya Curry on 05-28-2022 [employer] Work Phone: Comprehensive Metabolic Pane wilver 05-28-2022 Albumin [Mass/Vol] 4.3 g/dL 3.5 - 5.2 g/dL [employer] Albumin/Globulin [Mass ratio] 1.4 {ratio} 1.0 - 2.5 [employer] ALP (Bld) [Catalytic activity/Vol] 125 U/L High 35 - 104 U/L [employer] ALT [Catalytic activity/Vol] 23 U/L 5 - 33 U/L [employer] Anion gap [Moles/Vol] 11 mmol/L 9 - 17 mmol/L [employer] AST [Catalytic activity/Vol] 21 U/L NINF - 32 U/L [employer] Bilirubin [Mass/Vol] 0.2 mg/dL Low 0.3 - 1 .2 mg/dL [employer] Calcium [Mass/Vol] 9.3 mg/dL 8.6 - 10. 4 mg/dL [facility] Chloride [Moles/Vol] 107 mmol/L 98 - 10 7 mmol/L [facility] CO2 [Moles/Vol] 20 mmol/L 20 - 31 mmol/L [facility] Creatinine [Mass/Vol] 1.76 mg/dL High 0.50 - 0.90 mg/dL [facility] GFR/1.73 sq M.predicted MDRD (S/P/Bld) [Vol rate/Area] 38 mL/min/{1.73_m2} Low - PINF [facility] Comment on above: Effective Mar 09, 2022 These results are not intended for use in patients <18 years of age. eGFR results are calculated without a race factor using the 2020 CKD-EPI equation. Careful clinical correlation is recommended, particularly when comparing to results calculated using previous equations. The CKD-EPI equation is less accurate in patients with extremes of muscle mass, extra-renal metabolism of creatine, excessive creatine ingestion, or following therapy that affects renal tubular secretion. Glucose [Mass/Vol] 135 mg/dL High 70 - 99 mg/dL [facility] Interpretation and review of laboratory results Abnormal [facility] Potassium [Moles/Vol] 4.6 mmol/L 3.7 - 5.3 mmol/L [facility] Protein [Mass/Vol] 7.4 g/dL 6.4 - 8.3 g/dL [facility] Sodium [Moles/Vol] 138 mmol/L 135 - 144 mmol/L [facility] Urea nitrogen (BldV) [Mass/Vol] 17 mg/dL 6 - 20 mg/dL [facility] Urea nitrogen/Creatinine (Bld) [Mass ratio] 10 9 - 20 [facility] Drug screen multi urineon Amphetamine Screen, Ur Negative NEGATIVE [facility] Barbiturate Screen, Ur Negative NEGATIVE [facility] Benzodiazepine Screen, Urine Positive Abnormal NEGATIVE [facility] Buprenorphine Urine Negative NEGATIVE [facility] Cannabinoid Scrn, Ur Negative NEGATIVE [facility] Cocaine Metabolite, Urine Negative NEGATIVE [facility] Interpretation and review of laboratory results Abnormal [facility] Methadone Screen, Urine Negative NEGATIVE [facility] Methamphetamine, Urine Negative NEGATIVE [facility] Opiates, Urine Negative NEGATIVE [facility] Oxycodone Screen, Ur Negative NEGATIVE [facility] Phencyclidine, Urine Negative NEGATIVE [facility] Propoxyphene, Urine Negative NEGATIVE [facility] Tricyclic Antidepressants, Urine Negative NEGATIVE [facility] Comment on above: Drug screen results are to be used for medical purposes only. All positive results are unconfirmed. Testing for employment or legal uses should be sent to a reference laboratory for confirmation. [facility] HCG Qualitative, Serumon hCG Qual Negative NEGATIVE [facility] Comment on above: Specimens with hCG l evels near the threshold of the test (25 mIU/mL) may give a negative or indeterminate result. In such cases, another test should be performed with a new specimen in 48-72 hours. If early is suspected clinically in this setting, correlation with quantitative serum b-hCG level is suggested. [facility] has confirmed the use of plasma for this test. This has not been cleared or approved by the U.S. Food and Drug Administration. The FDA has determined that such clearance is not necessary. [facility] Lactic Acidon 05-28-2022 Lactate [Moles/Vol] 1.2 mmol/L 0.5 - 2. 2 mmol/L [facility] Lipaseon 05-28-2022 Interpretation and review of laboratory results Abnormal [facility] Lipase [Catalytic activity/Vol] 6 U/L Low 13 - 60 U/L [facility] Microscopic Urinalysison Bacteria, UA TRACE Abnormal None [facility] Epithelial Cells UA 0 TO 2 [facility] Interpretation and review of laboratory results Abnormal [facility] RBC, UA 0 TO 2 [facility] WBC, UA 0 TO 2 [facility] Rapid influenza A/B antigens on 05-28-2022 Flu A Antigen Negative NEGATIVE [facility] Comment on above: for Influenza A Anti gen Flu B Antigen Negative NEGATIVE [facility] Comment on above: for Influenza B Anti gen. [facility] Urinalysis with Reflex to Cu ltureon 05-28-2022 Bilirubin Urine Negative NEGATIVE [facility] Color, UA Yellow Yellow [facility] Glucose, Ur Negative NEGATIVE [facility] Ketones Ql (U) Negative NEGATIVE [facility] Leukocyte esterase Test strip Ql (U) Negative NEGATIVE [facility] Nitrite, Urine Negative NEGATIVE [place] [facility] pH, UA 6.0 5.0 - 9.0 [facility] Protein, UA Negative NEGATIVE [facility] Specific [place], UA 1.020 1.010 - 1.020 [facility] Turbidity UA Clear Clear [facility] Urine Hgb Negative NEGATIVE [facility] Urobilinogen, Urine Normal Normal [facility] CNPNon 05-20-2022 CNPN Normal [facility] AMYLASEon 05-19-2022 Amylase [Catalytic activity/Vol] 30 U/L Normal 25-115 [facility] Comment on above: Performed By: #### T NS #### [facility] [address] [place] [address] Dr. Laila Feliciano CBC AUTO DIFFon 05-19-2022 BASO # 0.1 103/ul Normal 0.0-0.1 [facility] Comment on above: Performed By: #### T NS #### [facility] [address] [place] [address] Dr. Laila Feliciano Basophils/100 WBC (Bld) 0.5 % Normal 0.2-2.0 [facility] Comment on above: Performed By: #### T NS #### [facility] [address] [place] [address] Dr. Laila Feliciano EO # 0.0 103/ul Normal 0.0-0.7 [facility] Comment on above: Performed By: #### T NS #### [facility] [address] [place] [address] Dr. Laila Feliciano Eosinophils/100 WBC (Bld) 0.2 % Critically low 0.9-7.0 [facility] Comment on above: Performed By: #### T NS #### [facility] [address] [address] [address] Laila Feliciano Erythrocyte distribution width (RBC) [Ratio] 17.2 % Critically high 11.0-15.0 [facility] Comment on above: Performed By: #### T NS #### [facility] [address] [address] [address] Laila Feliciano Hematocrit (Bld) [Volume fraction] 33.6 % Critically low 36.0-48.0 [facility] Comment on above: Performed By: #### T NS #### [facility] [address] [place] [address] Dr. Laila Feliciano Hemoglobin (Bld) [Mass/Vol] 10.8 g/dL Critically low 12.0-16.0 [facility] Comment on above: Performed By: #### T NS #### [facility] [address] [place] [address] Dr. Laila Feliciano IG # 0.04 10e3/ul Critically high 0.00-0.03 [facility] Comment on above: Performed By: #### T NS #### [facility] [address] [place] [address] Dr. Laila Feliciano IG % 0.3 % Normal 0.0-0.5 [facility] Comment on above: Performed By: #### T NS #### [facility] [address] [place] [address] Dr. Laila Feliciano LYMPH # 2.4 103/ul Normal 1.2-3.8 [facility] Comment on above: Performed By: #### T NS #### [facility] [address] [place] [address] Dr. Laila Feliciano Lymphocytes/100 WBC (Bld) 17.9 % Critically low 20.5-60.0 [facility] Comment on above: Performed By: #### T NS #### [facility] [address] [place] [address] Dr. Laila Feliciano MANUAL DIFF REQ NO Normal [facility] Comment on above: Performed By: #### T NS #### [facility] [address] [address] [address] Laila Feliciano MCH (RBC) [Entitic mass] 28.0 pg Normal 26.7-34.0 [facility] Comment on above: Performed By: #### T NS #### [facility] [address] [place] [address] Dr. Laila Feliciano MCHC (RBC) [Mass/Vol] 32.1 g/dL Normal 29.9-35.2 [facility] Comment on above: Performed By: #### T NS #### [facility] [address] [place] [address] Dr. Laila Feliciano MCV (RBC) [Entitic vol] 87.0 fL Normal 81.0-99.0 [facility] Comment on above: Performed By: #### T NS #### [facility] [address] [place] [address] Dr. Laila Feliciano MONO # 0.9 103/ul Critically high 0.3-0.[address] [facility] Comment on above: Performed By: #### T NS #### [facility] [address] [place] [address] Dr. Laila Feliciano Monocytes/100 WBC (Bld) 7.0 % Normal 1.7-12.0 [facility] Comment on above: Performed By: #### T NS #### [facility] [address] [place] [address] Dr. Laila Feliciano NEUT # 9.9 103/ul Critically high 1.4-6.5 [facility] [place] Comment on above: Performed By: #### T NS #### [facility] [address] [place] [address] Dr. Laila Feliciano Neutrophils/100 WBC (Bld) 74.1 % Normal 43.0-75.0 [facility] Comment on above: Performed By: #### T NS #### [facility] [address] [place] [address] Dr. Laila Feliciano Platelet mean volume (Bld) [Entitic vol] 10.5 fL Normal 9.5-13.5 [facility] Comment on above: Performed By: #### T NS #### [facility] [address] [place], [place] [address] Dr. Laila Feliciano PLT 421 103/ul Normal 150-450 [facility] Comment on above: Performed By: #### T NS #### [facility] [address] [place], [place] [address] Dr. Laila Feliciano RBC 3.86 106/ul Critically low 4.20-5.40 [facility] [place] Comment on above: Performed By: #### T NS #### [facility] [address] [place], [place] [address] Dr. Laila Feliciano WBC 13.4 103/ul Critically high 4.0-11.0 [facility] Comment on above: Performed By: #### T NS #### [facility] [id number] Laila Feliciano CT ABD/PELVIS WO CONon 05-19 CT ABD/PELVIS WO CON EXAMINATION: CT ABD/PELVIS WO CON, 05/19/2022 2:26 PM MST HISTORY: GENERALIZED ABDOMINAL PAIN COMPARISON: 05/18/2022 and 05/17/2022 TECHNIQUE: CT scan of the abdomen and pelvis was performed without IV contrast. CT dose reduction technique was used, including Automated Exposure Control. 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 Tubes/lines/drains: Partially visualized cardiac lead. Enteric tube within the stomach. CHEST: Lungs: Clear. Cardiac and vascular: No cardiomegaly or significant pericardial effusion. ABDOMEN: Liver: Unremarkable. Gallbladder and Biliary Tree: Mild pneumobilia, slightly increased. Cholecystectomy Spleen: Splenectomy with residual splenic tissue/splenule along the suture margin. Pancreas: Resection of the pancreatic tail. Adrenal Glands: Unremarkable. Kidneys, Ureters, Bladder: No urolithiasis. No hydronephrosis or hydroureterosis. Small amount of gas within the slightly distended bladder, likely related to recent instrumentation.. Gastrointestinal: Rectal tube is present with instilled rectal contrast. The redundant sigmoid is distended with contrast stool, and gas. No extraluminal contrast. There is no swirling or evidence for volvulus. Unchanged mild perirectal and mesial rectal fat stranding. A small amount of adjacent free fluid is noted.. No dilated loops of small or large bowel. Normal appendix. Small amount of pneumoperitoneum, relatively unchanged. Moderate to large overall stool burden. Reproductive organ(s): Contraceptive device within the uterus. Lymphatic: No concerning retroperitoneal, mesenteric, or inguinal adenopathy. Vessels: Minimal atherosclerotic calcifications. BONES AND SOFT TISSUE: Bones: No acute fracture. No concerning osseous lesions. Soft Tissue: Small focus of subcutaneous gas within the anterior right abdominal wall, likely related to recent intervention/medication injection. Abandoned lead within the left gluteal soft tissues. IMPRESSION: 1. No evidence for sigmoid volvulus or obstruction the setting of moderate to large stool burden. -No extraluminal contrast to suggest perforation. 2. Relatively unchanged small amount of pneumoperitoneum. 3. Slightly increased mild pneumobilia. 4. Redemonstrated mild perirectal stranding with a small amount of free pelvic fluid, unchanged Electronically authenticated by: ADELINA KHANNA Date: 2022-05-19 17:42 Normal [facility] CT ABD/PELVIS WO CON Begin Addendum #1 Narrowed portion of the sigmoid colon is distal near the rectosigmoid junction, not proximal. Original Report CT ABD/PELVIS WO CON: 05/18/2022 11:05 PM EST CLINICAL HISTORY: 37 years old Female with GENERALIZED ABDOMINAL PAIN. Surgery for rectal prolapse 05/14/2022. TECHNIQUE: Axial CT images through the abdomen and pelvis are obtained without the intravenous administration of contrast. Coronal and sagittal reformations are also obtained. Dose reduction techniques were achieved by using automated exposure control and/or adjustment of mA and/or kV according to patient size and/or use of iterative reconstruction technique. COMPARISON: CT abdomen pelvis 05/17/2022. FINDINGS: The lung bases are clear with no dependent infiltrate or effusion. Without the use of IV or oral contrast the study is limited by incomplete evaluation of the blood vessels, solid visceral organs and bowel. Tiny pneumobilia is present reduced from the prior study. Cholecystectomy clips are present with the gallbladder surgically absent. The pancreatic tail and spleen are again surgically resected. The bilateral adrenal glands are unremarkable. Likely residual or recurrent splenic tissue is again present measuring 2.6 cm unchanged. The bilateral kidneys are unremarkable with no renal calculi or hydronephrosis. Subcentimeter exophytic cyst of the right kidney is present. The bilateral ureters demonstrate no gross abnormality or obstruction. Tiny pneumoperitoneum is present at the hepatic margin and within the abdominal mesentery as well as minimally in the perirectal region similar to reduced from the prior study. There is persistent stranding in the perirectal space likely post surgical. The sigmoid colon is redundant with apparent swirling (series 4 image [id number] with mildly abnormally narrowed portion proximally and abnormal gaseous distention measuring up to 8.1 cm concerning for possible early partial or complete volvulus. There is fecal stasis throughout the remainder of the colon. The stomach and small bowel are not abnormally dilated. The appendix is not clearly delineated. There is present within the dependent urinary bladder anteriorly similar to the prior study. There is no evidence of aortic aneurysm. No enlarged lymph nodes are seen. Intrauterine device appears to be in good position. No adnexal mass. The osseous structures appear unremarkable. IMPRESSION: Persistent perirectal stranding and small pneumoperitoneum similar to the prior study compatible with recent surgical intervention. Concern for possible partial or complete sigmoid volvulus with redundant sigmoid colon abnormal gaseous distention and swirling of the mesentery with nondistended proximal sigmoid colon and otherwise marked fecal stasis throughout the colon. Normal [facility] Covid-19 PCR ([facility])on 05-07 SARS-CoV-2 (COVID-19) RNA DAVIS+probe Ql (Unsp spec) Not detected Normal NOT DETECTED [facility] Comment on above: Result Comment: When diagnostic testing is negative, the possibility of a false negative should be considered in the context of a patient's recent exposures and the presence of clinical signs and symptoms consistent with SARS-CoV-2. This test is not yet approved or cleared by the [place] FDA. When there are no FDA-approved or cleared tests available, and other criteria are met, FDA can make tests available under an emergency access mechanism called an Emergency Use Authorization (EUA). The EUA for this test is supported by the Dialysis Chief Equipment Technician of Health and Human Service's declaration that circumstances exist to justify the emergency use of in vitro diagnostics for the detection and/or diagnosis of the virus that causes COVID-19. This EUA will remain in effect for the duration of the COVID-19 declaration justifying emergency of IVDs, unless it is terminated or revoked by the FDA (after which the test may no longer be used). Performed By: #### P OCGLUC #### [facility] [address] [address] [address] Laila Feliciano ER URINE PROFILEon 2 Bilirubin Ql (U) Negative Normal NEGATIVE [facility] Comment on above: Performed By: #### C BC #### [facility] [address] [place] [address] Dr. Laila Feliciano Clarity (U) CLEAR Normal CLEAR [facility] Comment on above: Performed By: #### C BC #### [facility] [address] [place] [address] Dr. Laila Feliciano Color (U) LT. YELLOW Normal YELLOW [facility] Comment on above: Performed By: #### C BC #### [facility] [address] [place] [address] Dr. Laila Feliciano ERUAHD A micrscopic examina tion will be performed if indicated. Normal [facility] Comment on above: Performed By: #### C BC #### [facility] [address] [place] [address] Dr. Laila Feliciano Glucose Ql (U) Negative Normal NEGATIVE [facility] Comment on above: Performed By: #### C BC #### [facility] [address] [place] [address] Dr. Laila Feliciano Hemoglobin Ql (U) Negative Normal NEGATIVE [facility] Comment on above: Performed By: #### C BC #### [facility] [address] [place] [address] Dr. Laila Feliciano Ketones Ql (U) Negative Normal NEGATIVE [facility] Comment on above: Performed By: #### C BC #### [facility] [address] [place] [address] Dr. Laila Feliciano LEUKOCYTES Negative Normal NEGATIVE [facility] Comment on above: Performed By: #### C BC #### [facility] [address] [place] [address] Dr. Laila Feliciano Nitrite Ql (U) Negative Normal NEGATIVE [facility] Comment on above: Performed By: #### C BC #### [facility] [address] [place] [address] Dr. Laila Feliciano pH (U) 6.0 [pH] Normal 5-9 [facility] Comment on above: Performed By: #### C BC #### [facility] [address] [place] [address] Dr. Laila Feliciano SPEC GRAVITY 1.020 Normal 1.005-<=1. 025 [facility] Comment on above: Performed By: #### C BC #### [facility] [address] [place] [address] Dr. Laila Feliciano UA PROTEIN TRACE Normal NEGATIVE/ TRACE [facility] Comment on above: Performed By: #### C BC #### [facility] [address] [place] [address] Dr. Laila Feliciano UR MICRO IND NOT INDICATED Normal [facility] [place] Comment on above: Performed By: #### C BC #### [facility] [address] [place] [address] Dr. Laila Feliciano Urobilinogen Qn (U) 0.2 {Edgar'U}/dL Normal 0.2 - 1. 0 [facility] Comment on above: Performed By: #### C BC #### [facility] [address] [place] [address] Dr. Laila Feliciano LACTATE/LACTIC ACIDon 2021 Lactate [Moles/Vol] 0.7 mmol/L Normal 0.4-1.9 [facility] Comment on above: Performed By: #### P OCGLUC #### [facility] [address] [place] [address] Dr. Laila Feliciano LIPASEon 05-19-2022 Lipase [Catalytic activity/Vol] 13.0 U/L Critically low 73.0-393.0 [facility] Comment on above: Performed By: #### T NS #### [facility] [address] [place] [address] Dr. Laila Feliciano PROF 14(COMP METB)on Albumin [Mass/Vol] 3.9 g/dL Normal 3.4-5.0 [facility] Comment on above: Performed By: #### T NS #### [facility] [address] [place] [address] Dr. Laila Feliciano Albumin/Globulin [Mass ratio] 0.9 {ratio} Normal [facility] Comment on above: Performed By: #### T NS #### [facility] [address] [address] [address] Laila Feliciano ALP [Catalytic activity/Vol] 154 U/L Critically high 46-116 [facility] Comment on above: Performed By: #### T NS #### [facility] [address] [place] [address] Dr. Laila Feliciano ALT [Catalytic activity/Vol] 37 U/L Normal 14-59 [facility] Comment on above: Performed By: #### T NS #### [facility] [address] [place] [address] Dr. Laila Feliciano Anion gap [Moles/Vol] 13.2 mmol/L Normal [facility] Comment on above: Performed By: #### T NS #### [facility] [address] [place] [address] Dr. Laila Feliciano AST [Catalytic activity/Vol] 31 U/L Normal 15-37 [facility] Comment on above: Performed By: #### T NS #### [facility] [address] [place] [address] Dr. Laila Feliciano Bilirubin [Mass/Vol] 0.3 mg/dL Normal 0.2-1.0 [facility] Comment on above: Performed By: #### T NS #### [facility] [address] [place] [address] Dr. Laila Feliciano Calcium [Mass/Vol] 9.4 mg/dL Normal 8.5-10.1 [facility] Comment on above: Performed By: #### T NS #### [facility] [address] [place] [address] Dr. Laila Feliciano Chloride [Moles/Vol] 103 mmol/L Normal 98-107 [facility] Comment on above: Performed By: #### T NS #### [facility] [address] [place] [address] Dr. Laila Feliciano CO2 [Moles/Vol] 24.8 mmol/L Normal 21.0-32.[address] [facility] Comment on above: Performed By: #### T NS #### [facility] [address] [address] [address] Laila Feliciano Creatinine [Mass/Vol] 2.05 mg/dL Critically high 0.55-1.02 [facility] Comment on above: Performed By: #### T NS #### [facility] [address] [address] [address] Laila Feliciano EGFR-AF PAKISTANI 33 mL/min/1.73m2 Critically low >=60 [facility] Comment on above: Performed By: #### T NS #### [facility] [address] [address] [address] Laila Feliciano EGFR-NON AF PAKISTANI 27 mL/min/1.73m2 Critically low >=60 [facility] Comment on above: Performed By: #### T NS #### [facility] [address] [address] [address] Laila Feliciano Globulin (S) [Mass/Vol] 4.4 g/dL Normal [facility] Comment on above: Performed By: #### T NS #### [facility] [address] [address] [address] Laila Feliciano Glucose [Mass/Vol] 131 mg/dL Critically high 74-106 [facility] Comment on above: Performed By: #### T NS #### [facility] [address] [address] [address] Laila Feliciano Potassium [Moles/Vol] 4.0 mmol/L Normal 3.5-5.1 [facility] Comment on above: Performed By: #### T NS #### [facility] [address] [address] [address] Laila Feliciano Protein [Mass/Vol] 8.3 g/dL Critically high 6.4-8.2 [facility] Comment on above: Performed By: #### T NS #### [facility] [address] [address] [address] Laila Feliciano Sodium [Moles/Vol] 137 mmol/L Normal 136-145 [facility] Comment on above: Performed By: #### T NS #### [facility] [address] [address] [address] Laila Feliciano Urea nitrogen [Mass/Vol] 25.0 mg/dL Critically high 7.0-18.0 [facility] Comment on above: Performed By: #### T NS #### [facility] [address] [address] [address] Laila Feliciano Urea nitrogen/Creatinine [Mass ratio] 12.2 mg/mg Normal [facility] Comment on above: Performed By: #### T NS #### [facility] [address] [address] [address] Laila Feliciano XR KUB 1 VIEWon 05-19-2022 XR KUB 1 VIEW EXAM: XR KUB 1 VIEW HISTORY: GENERALIZED ABDOMINAL PAIN COMPARISON: CT abdomen pelvis performed on this date. TECHNIQUE: Supine views of the abdomen are obtained. FINDINGS: Nasogastric tube is been placed with its side-port at the fundus of the stomach in good position. There is persistent fecal stasis throughout the colon as well as significant gaseous distention of the colon at the midline again concerning for sigmoid volvulus. Cholecystectomy clips are present. Midline abdominal surgical clips are present. Intrauterine device is present. Left-sided stimulator devices is present. No suspicious calcifications. The osseous structures appear grossly intact. IMPRESSION: 1. Interval placement of nasogastric tube in good position. 2. Persistent fecal stasis and abnormal gaseous distention of the sigmoid colon again concerning for volvulus. Electronically authenticated by: STEVO STROUD Date: 2022-05-19 04:36 Normal [facility] CBC AUTO DIFFon 05-17-2022 BASO # 0.0 103/ul Normal 0.0-0.1 [facility] Comment on above: Performed By: #### T NS #### [facility] [address] [address] [address] Laila Feliciano Basophils/100 WBC (Bld) 0.2 % Normal 0.2-2.0 [facility] Comment on above: Performed By: #### T NS #### [facility] [address] [place] [address] Dr. Laila Feliciano EO # 0.0 103/ul Normal 0.0-0.7 [facility] Comment on above: Performed By: #### T NS #### [facility] [address] [place] [address] Dr. Laila Feliciano Eosinophils/100 WBC (Bld) 0.2 % Critically low 0.9-7.0 [facility] Comment on above: Performed By: #### T NS #### [facility] [address] [place] [address] Dr. Laila Feliciano Erythrocyte distribution width (RBC) [Ratio] 17.1 % Critically high 11.0-15.0 [facility] Comment on above: Performed By: #### T NS #### [facility] [address] [place] [address] Dr. Laila Feliciano Hematocrit (Bld) [Volume fraction] 30.3 % Critically low 36.0-48.0 [facility] Comment on above: Performed By: #### T NS #### [facility] [address] [place] [address] Dr. Laila Feliciano Hemoglobin (Bld) [Mass/Vol] 9.3 g/dL Critically low 12.0-16.0 [facility] Comment on above: Performed By: #### T NS #### [facility] [address] [place] [address] Dr. Laila Feliciano IG # 0.02 10e3/ul Normal 0.00-0.03 [facility] Comment on above: Performed By: #### T NS #### [facility] [address] [place] [address] Dr. Laila Feliciano IG % 0.2 % Normal 0.0-0.5 [facility] Comment on above: Performed By: #### T NS #### [facility] [address] [place] [address] Dr. Laila Feliciano LYMPH # 2.3 103/ul Normal 1.2-3.8 [facility] Comment on above: Performed By: #### T NS #### [facility] [address] [place] [address] Dr. Laila Feliciano Lymphocytes/100 WBC (Bld) 25.2 % Normal 20.5-60.0 [facility] Comment on above: Performed By: #### T NS #### [facility] [address] [place] [address] Dr. Laila Feliciano MANUAL DIFF REQ NO Normal [facility] [place] Comment on above: Performed By: #### T NS #### [facility] [address] [place] [address] Dr. Laila Feliciano MCH (RBC) [Entitic mass] 27.6 pg Normal 26.7-34.0 [facility] Comment on above: Performed By: #### T NS #### [facility] [address] [place] [address] Dr. Laila Feliciano MCHC (RBC) [Mass/Vol] 30.7 g/dL Normal 29.9-35.2 [facility] Comment on above: Performed By: #### T NS #### [facility] [address] [place] [address] Dr. Laila Feliciano MCV (RBC) [Entitic vol] 89.9 fL Normal 81.0-99.0 [facility] Comment on above: Performed By: #### T NS #### [facility] [address] [place] [address] Dr. Laila Feliciano MONO # 0.6 103/ul Normal 0.3-0.8 [facility] Comment on above: Performed By: #### T NS #### [facility] [address] [place] [address] Dr. Laila Feliciano Monocytes/100 WBC (Bld) 6.5 % Normal 1.7-12.0 [facility] Comment on above: Performed By: #### T NS #### [facility] [address] [place] [address] Dr. Laila Feliciano NEUT # 6.1 103/ul Normal 1.4-6.5 [facility] Comment on above: Performed By: #### T NS #### [facility] [address] [place] [address] Dr. Laila Feliciano Neutrophils/100 WBC (Bld) 67.7 % Normal 43.0-75.0 [facility] Comment on above: Performed By: #### T NS #### [facility] [address] [place] [address] Dr. Laila Feliciano Platelet mean volume (Bld) [Entitic vol] 10.6 fL Normal 9.5-13.5 [facility] Comment on above: Performed By: #### T NS #### [facility] [address] [place] [address] Dr. Laila Feliciano PLT 345 103/ul Normal 150-450 [facility] Comment on above: Performed By: #### T NS #### [facility] [address] [place] [address] Dr. Laila Feliciano RBC 3.37 106/ul Critically low 4.20-5.[address] [facility] Comment on above: Performed By: #### T NS #### [facility] [address] [place] [address] Dr. Laila Feliciano WBC 8.9 103/ul Normal 4.0-11.0 [facility] Comment on above: Performed By: #### T NS #### [facility] [address] [place] [address] Dr. Laila Feliciano CNPNon 05-17-2022 CNPN Normal [facility] CT ABD/PELV W CONon 05-17-20 CT ABD/PELV W CON EXAMINATION: CT ABD/ PELV W CON INDICATION: GENERALIZED ABDOMINAL PAIN. COMPARISON: CT abdomen pelvis 04/02/2022. TECHNIQUE: Multiple contiguous axial CT images of the abdomen and pelvis were obtained after the administration of 100 mL of Omnipaque 300 contrast. Sagittal and coronal reconstructions were performed. Dose reduction techniques were achieved by using: automated exposure control and/or adjustment of mA and /or kV according to patient size and/or use of iterative reconstruction technique. FINDINGS: LOWER CHEST: Clear lung bases. No pleural or pericardial effusion. ABDOMEN: Mild circumferential wall thickening and edema of the rectum with mild surrounding inflammatory stranding. Diffusely mildly distended colon with large fecal burden. Normal caliber small bowel. No pneumatosis or portal venous gas. Small volume free air in the abdomen. No abdominal fluid collection. Changes of pancreatectomy and splenectomy. Persistent pneumobilia. Cholecystectomy. No suspicious liver lesion. Normal adrenal glands and left kidney. Small right renal cyst. Nonaneurysmal abdominal aorta with minimal atherosclerotic calcifications. Patent abdominal vasculature. No ascites. PELVIS: IUD in place. Normal ovaries. Moderate amount of gas in the nondependent bladder lumen. Several small foci of free air in the pelvis. Trace free pelvic fluid and moderate presacral edema. No pelvic fluid collection. MUSCULOSKELETAL: No acute osseous abnormality or suspicious osseous lesion. Small amount of soft tissue gas and inflammation in the anterior abdominal wall. IMPRESSION: 1. Expected postsurgical changes related to recent rectal prolapse repair including small volume pneumoperitoneum and free air in the pelvis, mild changes of proctitis, and mild inflammation and gas in the anterior abdominal wall soft tissues. Large colonic fecal burden. No evidence of bowel obstruction or postsurgical fluid collection. 2. Gas in the bladder lumen, likely due to to recent instrumentation. 3. Post cholecystectomy, splenectomy, pancreatectomy. Persistent pneumobilia. I, Dr. Catherine Tello, personally discussed findings with ANDREW ZAMBRANO on 05/17/2022 12:06 PM EST. Electronically authenticated by: CATHERINE TELLO Date: 2022-05-17 12:06 Normal [facility] LIPASEon 05-17-2022 Lipase [Catalytic activity/Vol] 12.0 U/L Critically low 73.0-393.0 [facility] Comment on above: Performed By: #### T NS #### [facility] [address] [place] [address] Dr. Laila Feliciano PROF CHEM 8 (BAS METB)on Anion gap [Moles/Vol] 11.8 mmol/L Normal [facility] Comment on above: Performed By: #### T NS #### [facility] [address] [place] [address] Dr. Laila Feliciano Calcium [Mass/Vol] 9.2 mg/dL Normal 8.5-10.1 [facility] Comment on above: Performed By: #### T NS #### [facility] [address] [place] [address] Dr. Laila Feliciano Chloride [Moles/Vol] 104 mmol/L Normal 98-107 [facility] Comment on above: Performed By: #### T NS #### [facility] [address] [address] [address] Laila Feliciano CO2 [Moles/Vol] 29.6 mmol/L Normal 21.0-32.[address] [facility] Comment on above: Performed By: #### T NS #### [facility] [address] [address] [address] Laila Feliciano Creatinine [Mass/Vol] 1.99 mg/dL Critically high 0.55-1.02 [facility] Comment on above: Performed By: #### T NS #### [facility] [address] [address] [address] Laila Feliciano EGFR-AF PAKISTANI 34 mL/min/1.73m2 Critically low >=60 [facility] Comment on above: Performed By: #### T NS #### [facility] [address] [address] [address] Laila Feliciano EGFR-NON AF PAKISTANI 28 mL/min/1.73m2 Critically low >=60 [facility] Comment on above: Performed By: #### T NS #### [facility] [address] [address] [address] Laila Feliciano Glucose [Mass/Vol] 105 mg/dL Normal 74-106 [facility] Comment on above: Performed By: #### T NS #### [facility] [address] [address] [address] Laila Feliciano Potassium [Moles/Vol] 4.4 mmol/L Normal 3.5-5.1 [facility] Comment on above: Performed By: #### T NS #### [facility] [address] [address] [address] Laila Feliciano Sodium [Moles/Vol] 141 mmol/L Normal 136-145 [facility] Comment on above: Performed By: #### T NS #### [facility] [address] [address] [address] Laila Feliciano Urea nitrogen [Mass/Vol] 22.0 mg/dL Critically high 7.0-18.0 [facility] Comment on above: Performed By: #### T NS #### [facility] [address] [place] [address] Dr. Laila Feliciano Urea nitrogen/Creatinine [Mass ratio] 11.1 mg/mg Normal [facility] Comment on above: Performed By: #### T NS #### [facility] [address] [address] [address] Laila Feliciano B-HCG SerPl-aCncon 2 HCG.beta subunit Qn m[IU]/mL Normal <5.0 [facility] Comment on above: Order Comment: Speci men Type: BLOOD SPECIMENOrdering Facility: [facility] Address: [address] [place] [address] Result Comment: Nega tive Performed By: #### 2 1198-7 ####[facility] LABCLIA [id number] [place] [address] [place] Basic metabolic 2000 panelon 05-15-2022 Anion gap [Moles/Vol] 12 mmol/L Normal 9-18 [facility] Comment on above: Order Comment: Speci men Type: BLOOD SPECIMENOrdering Facility: [facility] Address: [address] [place] [address] Performed By: #### 2 4321-2, , 2776-06 ####[facility] LABCLIA [id number] [place] [address] [place] Calcium [Mass/Vol] 8.1 mg/dL Low 8.5-10.2 [facility] Comment on above: Order Comment: Speci men Type: BLOOD SPECIMENOrdering Facility: [facility] Address: [address] [place] [address] Performed By: #### 2 4321-2, , 2776-1 ####[facility] LABCLIA [id number] [place] [address] [place] Chloride [Moles/Vol] 105 mmol/L Normal 97-105 [facility] Comment on above: Order Comment: Speci men Type: BLOOD SPECIMENOrdering Facility: [facility] Address: [address] [place], [place] [address] Performed By: #### 2 4321-2, , 2776-06 ####[facility] LABCLIA [id number] [address] [place] CO2 [Moles/Vol] 20 mmol/L Low 22-30 [facility] Comment on above: Order Comment: Speci men Type: BLOOD SPECIMENOrdering Facility: [facility] Address: [address] [place] [address] Performed By: #### 2 4321-2, , 2776-06 ####[facility] LABCLIA [id number] [address] [place] Creatinine [Mass/Vol] 2.29 mg/dL High 0.58-0.96 [facility] Comment on above: Order Comment: Speci men Type: BLOOD SPECIMENOrdering Facility: [facility] Address: [address] [place] [address] Performed By: #### 2 4321-2, , 2776-06 ####[facility] LABCLIA [id number] [place] [address] [place] ESTIMATED GLOMERULAR FILTRATION RATE 28 mL/min/1.73m??? Low >=60 [facility] Comment on above: Order Comment: Speci men Type: BLOOD SPECIMENOrdering Facility: [facility] Address: [address] [place] [address] Result Comment: Isabel mated Glomerular Filtration Rate (eGFR) is calculated using the 2020 CKD-EPI creatinine equation. This equation utilizes serum creatinine, sex, and age as parameters. The creatinine assay has traceable calibration to isotope dilution-mass spectrometry. Refer to KDIGO guidelines for clinical interpretation. In patients with unstable renal function, e.g. those with acute kidney injury, the eGFR may not accurately reflect actual GFR. Performed By: #### 2 4321-2, , 2776-06 ####[facility] LABCLIA [id number] [place] [address] [place] Glucose [Mass/Vol] 343 mg/dL High 74-99 [facility] Comment on above: Order Comment: Speci men Type: BLOOD SPECIMENOrdering Facility: [facility] Address: [address] [address] Result Comment: The [place] [employer] (ADA) provides guidance for cutoff values for fasting glucose and random glucose. The ADA defines fasting as no caloric intake for at least 8 hours. Fasting plasma glucose results between 100 to 125 mg/dL indicate increased risk for diabetes (prediabetes).Fasting plasma glucose results greater than or equal to 126 mg/dL meet the criteria for diagnosis of diabetes. In the absence of unequivocal hyperglycemia, results should be confirmed by repeat testing. In a patient with classic symptoms of hyperglycemia or hyperglycemic crisis, random plasma glucose results greater than or equal to 200 mg/dL meet the criteria for diagnosis of diabetes.Reference: Standards of Medical Care in Diabetes 2016, [place] [employer]. Diabetes Care. 2016.39(Suppl 1). Performed By: #### 2 4321-2, , 2776-06 ####[facility] LABCLIA [id number] [place] [address] [place] Potassium [Moles/Vol] 4.6 mmol/L Normal 3.7-5.1 [facility] Comment on above: Order Comment: Speci men Type: BLOOD SPECIMENOrdering Facility: [facility] Address: [address] [place] [address] Performed By: #### 2 4321-2, , 2776-06 ####[facility] LABCLIA [id number] [place] [address] [place] Sodium [Moles/Vol] 137 mmol/L Normal 136-144 [facility] Comment on above: Order Comment: Speci men Type: BLOOD SPECIMENOrdering Facility: [facility] Address: [address] [place] [address] Performed By: #### 2 4321-2, , 27712-05 ####[facility] LABCLIA [id number] [place] [address] [place] Urea nitrogen [Mass/Vol] 27 mg/dL High 7-21 [facility] Comment on above: Order Comment: Speci men Type: BLOOD SPECIMENOrdering Facility: [facility] Address: [address] [place] [address] Performed By: #### 2 4321-2, , 27712-05 ####[facility] LABCLIA [id number] [place] [address] [place] CASE MGT INIT ASSESon 2021 CASE MGT INIT ASSES Normal [facility] CBC W Auto Differential pane l (Bld)on 05-15-2022 Basophils (Bld) [#/Vol] 0.04 10*3/uL Normal <0.11 [facility] Comment on above: Order Comment: Speci men Type: BLOOD SPECIMENOrdering Facility: [facility] Address: [address] [place] [address] Performed By: #### 5 7021-8 ####[facility] LABCLIA [id number] [place] [address] [place] Basophils/100 WBC (Bld) 0.2 % Normal [facility] Comment on above: Order Comment: Speci men Type: BLOOD SPECIMENOrdering Facility: [facility] Address: [address] [place], [place] [address] Performed By: #### 5 7021-8 ####[facility] LABCLIA [id number] [place] [address] [place] Differential cell count method Nom (Bld) Auto Normal [facility] Comment on above: Order Comment: Speci men Type: BLOOD SPECIMENOrdering Facility: [facility] Address: [address] [address] Performed By: #### 5 7021-8 ####[facility] LABCLIA [id number] [place] [address] [place] Eosinophils (Bld) [#/Vol] 10*3/uL Normal <0.46 [facility] Comment on above: Order Comment: Speci men Type: BLOOD SPECIMENOrdering Facility: [facility] Address: [address] [address] Performed By: #### 5 7021-8 ####[facility] LABCLIA [id number] [place] [address] [place] Eosinophils/100 WBC (Bld) 0.0 % Normal [facility] Comment on above: Order Comment: Speci men Type: BLOOD SPECIMENOrdering Facility: [facility] Address: [address] [place] [address] Performed By: #### 5 7021-8 ####[facility] LABCLIA [id number] [place] [address] [place] Erythrocyte distribution width (RBC) [Ratio] 17.1 % High 11.5-15.0 [facility] Comment on above: Order Comment: Speci men Type: BLOOD SPECIMENOrdering Facility: [facility] Address: [address] [place], [place] [address] Performed By: #### 5 7021-8 ####[facility] LABCLIA [id number] [place] [address] [place] Hematocrit (Bld) [Volume fraction] 29.1 % Low 36.0-46.0 [facility] Comment on above: Order Comment: Speci men Type: BLOOD SPECIMENOrdering Facility: [facility] Address: [address] [place] [address] Performed By: #### 5 7021-8 ####[facility] LABCLIA [id number] [place] [address] [place] Hemoglobin (Bld) [Mass/Vol] 8.9 g/dL Low 11.5-15.5 [facility] Comment on above: Order Comment: Speci men Type: BLOOD SPECIMENOrdering Facility: [facility] Address: [address] [place] [address] Performed By: #### 5 7021-8 ####[facility] LABCLIA [id number] [place] [address] [place] Immature granulocytes (Bld) [#/Vol] 0.08 10*3/uL Normal <0.10 [facility] Comment on above: Order Comment: Speci men Type: BLOOD SPECIMENOrdering Facility: [facility] Address: [address] [place] [address] Performed By: #### 5 7021-8 ####[facility] LABIA [id number] [place] [address] [place] Immature granulocytes/100 WBC (Bld) 0.4 % Normal [facility] Comment on above: Order Comment: Speci men Type: BLOOD SPECIMENOrdering Facility: [facility] Address: [address] [place] [address] Performed By: #### 5 7021-8 ####[facility] LABIA [id number] [place] [address] [place] Lymphocytes (Bld) [#/Vol] 1.71 10*3/uL Normal 1.00-4.00 [facility] Comment on above: Order Comment: Speci men Type: BLOOD SPECIMENOrdering Facility: [facility] Address: [address] [place], [place] [address] Performed By: #### 5 7021-8 ####[facility] LABCLIA [id number] [place] [address] [place] Lymphocytes/100 WBC (Bld) 9.4 % Normal [facility] Comment on above: Order Comment: Speci men Type: BLOOD SPECIMENOrdering Facility: [facility] Address: [address] Performed By: #### 5 7021-8 ####[facility] LABIA [id number] [place] [address] [place] MCH (RBC) [Entitic mass] 28.1 pg Normal 26.0-34.0 [facility] Comment on above: Order Comment: Speci men Type: BLOOD SPECIMENOrdering Facility: [facility] Address: [address] Performed By: #### 5 7021-8 ####[facility] LABIA [id number] [address] [place] MCHC (RBC) [Mass/Vol] 30.6 g/dL Normal 30.5-36.0 [facility] Comment on above: Order Comment: Speci men Type: BLOOD SPECIMENOrdering Facility: [facility] Address: [address] Performed By: #### 5 7021-8 ####[facility] LABIA [id number] [place] [address] [place] MCV (RBC) [Entitic vol] 91.8 fL Normal 80.0-100.0 [facility] Comment on above: Order Comment: Speci men Type: BLOOD SPECIMENOrdering Facility: [facility] Address: [address] Performed By: #### 5 7021-8 ####[facility] LABIA [id number] [place] [address] [place] Monocytes (Bld) [#/Vol] 1.44 10*3/uL High <0.87 [facility] Comment on above: Order Comment: Speci men Type: BLOOD SPECIMENOrdering Facility: [facility] Address: [address] Performed By: #### 5 7021-8 ####[facility] LABCLIA [id number] [place] [address] [place] Monocytes/100 WBC (Bld) 7.9 % Normal [facility] Comment on above: Order Comment: Speci men Type: BLOOD SPECIMENOrdering Facility: [facility] Address: [address] Performed By: #### 5 7021-8 ####[facility] LABCLIA [id number] [place] [address] [place] Neutrophils (Bld) [#/Vol] 14.91 10*3/uL High 1.45-7.50 [facility] Comment on above: Order Comment: Speci men Type: BLOOD SPECIMENOrdering Facility: [facility] Address: [address] Performed By: #### 5 7021-8 ####[facility] LABCLIA [id number] [place] [address] [place] Neutrophils/100 WBC (Bld) 82.1 % Normal [facility] Comment on above: Order Comment: Speci men Type: BLOOD SPECIMENOrdering Facility: [facility] Address: [address] [place] [address] Performed By: #### 5 7021-8 ####[facility] LABCLIA [id number] [place] [address] [place] Nucleated RBC (Bld) [#/Vol] 10*3/uL Normal <0.01 [facility] Comment on above: Order Comment: Speci men Type: BLOOD SPECIMENOrdering Facility: [facility] Address: [address] [place] [address] Performed By: #### 5 7021-8 ####[facility] LABCLIA [id number] [place] [address] [place] Nucleated RBC/100 WBC (Bld) [Ratio] 0.0 /100 WBC Normal [facility] Comment on above: Order Comment: Speci men Type: BLOOD SPECIMENOrdering Facility: [facility] Address: [address] [place], [place] [address] Performed By: #### 5 7021-8 ####[facility] LABCLIA [id number] [place] [address] [place] Platelet mean volume (Bld) [Entitic vol] 10.7 fL Normal 9.0-12.7 [facility] Comment on above: Order Comment: Speci men Type: BLOOD SPECIMENOrdering Facility: [facility] Address: [address] [place], [place] [address] Performed By: #### 5 7021-8 ####[facility] LABCLIA [id number] [place] [address] [place] Platelets (Bld) [#/Vol] 315 10*3/uL Normal 150-400 [facility] Comment on above: Order Comment: Speci men Type: BLOOD SPECIMENOrdering Facility: [facility] Address: [address] [place], [place] [address] Performed By: #### 5 7021-8 ####[facility] LABCLIA [id number] [place] [address] [place] RBC (Bld) [#/Vol] 3.17 10*6/uL Low 3.90-5.20 [facility] Comment on above: Order Comment: Speci men Type: BLOOD SPECIMENOrdering Facility: [facility] Address: [address] [place], [place] [address] Performed By: #### 5 7021-8 ####[facility] LABCLIA [id number] [place] [address] [place] WBC (Bld) [#/Vol] 18.18 10*3/uL High 3.70-11.00 [facility] Comment on above: Order Comment: Speci men Type: BLOOD SPECIMENOrdering Facility: [facility] Address: [place] [address] Performed By: #### 5 7021-8 ####[facility] LABCLIA [id number] [address] [address] [place] CONSULTon 05-15-2022 CONSULT Normal [facility] Magnesium SerPl-mCncon 05-15 Magnesium [Mass/Vol] 2.0 mg/dL Normal 1.7-2.3 [facility] Comment on above: Order Comment: Speci men Type: BLOOD SPECIMENOrdering Facility: [facility] Address: [facility] [address] Performed By: #### 2 4321-2, 77667-7, 2777-1 ####[facility] LABCLIA [id number] [place] [address] [place] NURSING PROGon 05-15-2022 NURSING PROG Normal [facility] NURSING PROG Normal [facility] NUTRITIONon 05-15-2022 NUTRITION Normal [facility] Phosphate SerPl-mCncon 05-15 Phosphate [Mass/Vol] 4.3 mg/dL Normal 2.7-4.8 [facility] Comment on above: Order Comment: Speci men Type: BLOOD SPECIMENOrdering Facility: [facility] Address: [facility] [place] [address] Performed By: #### 2 4321-2, , 2777-1 ####[facility] LABCLIA [id number] [address] [address] [place] ANES PRE-OPon 05-14-2022 ANES PRE-OP Normal [facility] BRIEF OP NOTon 05-14-2022 BRIEF OP NOT Normal [facility] CNDSon 05-14-2022 CNDS Normal [facility] CYTOLOGY NON-GYNon CASE REPORT Normal [facility] Comment on above: Order Comment: Speci men Type: FLUID SPECIMENOrdering Facility: [facility] Address: [address] [place] [address] Result Comment: [facility] Cytology Report Case: [id number] Provider: Cheryl East DO Collected: 05/14/2022 05:27 PMOrdering Location: Admitting Received: 05/14/2022 08:26 PMPathologist: JEREMY Esparzapecimen: OVARIAN CYST LEFT, FLUID Performed By: #### C YTONON ####[facility] LABCLIA [id number] [address] [place] CLINICAL HISTORY Normal [facility] Comment on above: Order Comment: Speci men Type: FLUID SPECIMENOrdering Facility: [facility] Address: [address] [place] [address] Result Comment: Pre- op diagnosis:Constipation, unspecified constipation type [K59.00] Performed By: #### C YTONON ####[facility] LABCLIA [id number] [address] FINAL DIAGNOSIS Normal [facility] Comment on above: Order Comment: Speci men Type: FLUID SPECIMENOrdering Facility: [facility] Address: [address] [place] [address] Result Comment: A - OVARIAN CYST LEFT, FLUID Negative for malignant cells. Degenerated cyst contents. Performed By: #### C YTONON ####[facility] LABCLIA [id number] [address] FINAL PERFORMING LAB Normal [facility] Comment on above: Order Comment: Speci men Type: FLUID SPECIMENOrdering Facility: [facility] Address: [address] [place] [address] Result Comment: Tech nical component, multiple coil winder screening performed at [facility], [address] [address] CLIA# [id number] interpretation performed at [facility], [address] [address] CLIA# [id number] Director: Arvin Thomas M.D. Performed By: #### C SILVAN ####[facility] LABCLIA [id number] [place] [address] [place] GROSS DESCRIPTION Normal [facility] Comment on above: Order Comment: Speci men Type: FLUID SPECIMENOrdering Facility: [facility] Address: [address] [place] [address] Result Comment: A. O VARIAN CYST LEFT, FLUID1 cc clear colorless fluid with material. ThinPrep prepared. Performed By: #### C YTGLORIAN ####[facility] LABIA [id number] [place] [address] [place] ORDER COMMENT Normal [facility] Comment on above: Order Comment: Speci men Type: FLUID SPECIMENOrdering Facility: [facility] Address: [address] [place] [address] Result Comment: Pre- op diagnosis:Constipation, unspecified constipation type [K59.00] Performed By: #### C REEONON ####[facility] LABIA [id number] [place] [address] [place] Comprehensive metabolic 2000 panelon 05-14-2022 Albumin [Mass/Vol] 4.1 g/dL Normal 3.9-4.9 [facility] Comment on above: Order Comment: Speci men Type: BLOOD SPECIMENOrdering Facility: [facility] Address: [address] [place] [address] Performed By: #### 2 4323-8 ####[facility] LABIA [id number] [place] [address] [place] ALP [Catalytic activity/Vol] 165 U/L High 34-123 [facility] Comment on above: Order Comment: Speci men Type: BLOOD SPECIMENOrdering Facility: [facility] Address: [address] [place] [address] Performed By: #### 2 4323-8 ####[facility] [facility] LAB[facility] [id number] [place] [address] [place] ALT [Catalytic activity/Vol] 28 U/L Normal 7-38 [facility] Comment on above: Order Comment: Speci men Type: BLOOD SPECIMENOrdering Facility: [facility] Address: [address] Performed By: #### 2 4323-8 ####[facility] LABCLIA [id number] [place] [address] [place] Anion gap [Moles/Vol] 10 mmol/L Normal 9-18 [facility] Comment on above: Order Comment: Speci men Type: BLOOD SPECIMENOrdering Facility: [facility] Address: [address] [place], [place] [address] Performed By: #### 2 4323-8 ####[facility] LABCLIA [id number] [address] [place] [facility] AST [Catalytic activity/Vol] 36 U/L High 13-35 [facility] Comment on above: Order Comment: Speci men Type: BLOOD SPECIMENOrdering Facility: [facility] Address: [address] Performed By: #### 2 4323-8 ####[facility] LABCLIA [id number] [place] [address] [place] Bilirubin [Mass/Vol] 0.2 mg/dL Normal 0.2-1.3 [facility] Comment on above: Order Comment: Speci men Type: BLOOD SPECIMENOrdering Facility: [facility] Address: [address] Performed By: #### 2 4323-8 ####[facility] LABCLIA [id number] [address] [place] Calcium [Mass/Vol] 8.3 mg/dL Low 8.5-10.2 [facility] Comment on above: Order Comment: Speci men Type: BLOOD SPECIMENOrdering Facility: [facility] Address: [address] [place] [address] Performed By: #### 2 4323-8 ####[facility] LABCLIA [id number] [place] [address] [place] Chloride [Moles/Vol] 105 mmol/L Normal 97-105 [facility] Comment on above: Order Comment: Speci men Type: BLOOD SPECIMENOrdering Facility: [facility] Address: [address] [place] [address] Performed By: #### 2 4323-8 ####[facility] LABCLIA [id number] [place] [address] [place] CO2 [Moles/Vol] 26 mmol/L Normal 22-30 [facility] Comment on above: Order Comment: Speci men Type: BLOOD SPECIMENOrdering Facility: [facility] Address: [address] [place], [place] [address] Performed By: #### 2 4323-8 ####[facility] LABCLIA [id number] [address] [place] Creatinine [Mass/Vol] 2.30 mg/dL High 0.58-0.96 [facility] Comment on above: Order Comment: Speci men Type: BLOOD SPECIMENOrdering Facility: [facility] Address: [address] Performed By: #### 2 4323-8 ####[facility] LABCLIA [id number] [address] [place] ESTIMATED GLOMERULAR FILTRATION RATE 28 mL/min/1.73m??? Low >=60 [facility] Comment on above: Order Comment: Speci men Type: BLOOD SPECIMENOrdering Facility: [facility] Address: [address] [place] [id number] Result Comment: Isabel mated Glomerular Filtration Rate (eGFR) is calculated using the 2020 CKD-EPI creatinine equation. This equation utilizes serum creatinine, sex, and age as parameters. The creatinine assay has traceable calibration to isotope dilution-mass spectrometry. Refer to KDIGO guidelines for clinical interpretation. In patients with unstable renal function, e.g. those with acute kidney injury, the eGFR may not accurately reflect actual GFR. Performed By: #### 2 4323-8 ####[facility] LABCLIA [id number] [place] [address] [place] Glucose [Mass/Vol] 78 mg/dL Normal 74-99 [facility] Comment on above: Order Comment: Angel salazar Type: BLOOD SPECIMENOrdering Facility: [facility] Address: [address] [place] [address] Result Comment: The [place] Diabetes Association (ADA) provides guidance for cutoff values for fasting glucose and random glucose. The ADA defines fasting as no caloric intake for at least 8 hours. Fasting plasma glucose results between 100 to 125 mg/dL indicate increased risk for diabetes (prediabetes).Fasting plasma glucose results greater than or equal to 126 mg/dL meet the criteria for diagnosis of diabetes. In the absence of unequivocal hyperglycemia, results should be confirmed by repeat testing. In a patient with classic symptoms of hyperglycemia or hyperglycemic crisis, random plasma glucose results greater than or equal to 200 mg/dL meet the criteria for diagnosis of diabetes.Reference: Standards of Medical Care in Diabetes 2016, [place] [employer] Association. Diabetes Care. 2016.39(Suppl 1). Performed By: #### 2 4323-8 ####[facility] LABCLIA [id number] [place] [address] [place] Potassium [Moles/Vol] 3.6 mmol/L Low 3.7-5.1 [facility] Comment on above: Order Comment: Angel salazar Type: BLOOD SPECIMENOrdering Facility: [facility] Address: [address] [address] Performed By: #### 2 4323-8 ####[facility] LABCLIA [id number] [place] [address] [place] Protein [Mass/Vol] 7.2 g/dL Normal 6.3-8.0 [facility] Comment on above: Order Comment: Speci men Type: BLOOD SPECIMENOrdering Facility: [facility] Address: [address] [place] [address] Performed By: #### 2 4323-8 ####[facility] LABIA [id number] [place] [address] [place] Sodium [Moles/Vol] 141 mmol/L Normal 136-144 [facility] Comment on above: Order Comment: Speci men Type: BLOOD SPECIMENOrdering Facility: [facility] Address: [address] [place] [address] Performed By: #### 2 4323-8 ####[facility] LABIA [id number] [place] [address] [place] Urea nitrogen [Mass/Vol] 26 mg/dL High 7-21 [facility] Comment on above: Order Comment: Speci men Type: BLOOD SPECIMENOrdering Facility: [facility] Address: [address] [place] [address] Performed By: #### 2 4323-8 ####[facility] LABIA [id number] [place] [address] [place] ECG COMPLETEon 05-14-2022 ECG COMPLETE Normal [facility] NURSING PROGon 05-14-2022 NURSING PROG Normal [facility] OPERATIVE NOon 05-14-2022 OPERATIVE NO Normal [facility] SARS-CoV-2 RNA Resp Ql DAVIS+p robeon 05-14-2022 SARS-CoV-2 (COVID-19) RNA DAVIS+probe Ql (Resp) COVID 19 RESULT: SARS-CoV-2 (Agent of COVID-19) Not Detected by RT-PCR or equivalent method. This test has been authorized by FDA under an Emergency Use Authorization (EUA). Normal [facility] Comment on above: Performed By: #### 9 4500-6 ####[facility] LABCLIA [id number] [address] [facility] CBC panel Auto (Bld)on 05-13 Erythrocyte distribution width (RBC) [Ratio] 17.3 % High 11.5-15.0 [facility] Comment on above: Order Comment: Speci men Type: BLOOD SPECIMENOrdering Facility: [facility] Address: [address] [address] Performed By: #### 5 5454-3 ####[facility] LABCLIA [id number] [address] [place]#### 80489-6 ####[facility]ATORYCLIA [id number] [address] [place] Hematocrit (Bld) [Volume fraction] 33.7 % Low 36.0-46.0 [facility] Comment on above: Order Comment: Speci men Type: BLOOD SPECIMENOrdering Facility: [facility] Address: [address] [address] Performed By: #### 5 5454-3 ####[facility] LABCLIA [id number] [address] [place]#### [address]-5 ####[facility]ATORYCLIA [id number] [address] [place] Hemoglobin (Bld) [Mass/Vol] 10.1 g/dL Low 11.5-15.5 [facility] Comment on above: Order Comment: Speci men Type: BLOOD SPECIMENOrdering Facility: [facility] Address: [address] [address] Performed By: #### 5 5454-3 ####[facility] LABCLIA [id number] [address] [place]#### 76286-6 ####[facility]ATORY[facility]IA [id number] [place] [address] [place] MCH (RBC) [Entitic mass] 27.8 pg Normal 26.0-34.0 [facility] Comment on above: Order Comment: Speci men Type: BLOOD SPECIMENOrdering Facility: [facility] Address: [address] Performed By: #### 5 5454-3 ####[facility] LABCLIA [id number] [address] [place]#### 06835-8 ####[facility] LABORATORYIA [id number] [address] [facility] MCHC (RBC) [Mass/Vol] 30.0 g/dL Low 30.5-36.0 [facility] Comment on above: Order Comment: Speci men Type: BLOOD SPECIMENOrdering Facility: [facility] Address: [address] [place] [address] Performed By: #### 5 5454-3 ####[facility] LABCLIA [id number] [address]#### [address]-3 ####[facility] LABORATORYCLIA [id number] [place] [address] [place] MCV (RBC) [Entitic vol] 92.8 fL Normal 80.0-100.0 [facility] Comment on above: Order Comment: Speci men Type: BLOOD SPECIMENOrdering Facility: [facility] Address: [address] [place] [address] Performed By: #### 5 5454-3 ####[facility] LABCLIA [id number] [place] [address] [place]#### 45948-0 ####[facility]ATORYCLIA [id number] [place] [address] [place] Nucleated RBC (Bld) [#/Vol] 10*3/uL Normal <0.01 [facility] Comment on above: Order Comment: Speci men Type: BLOOD SPECIMENOrdering Facility: [facility] Address: [address] Performed By: #### 5 5454-3 ####[facility] LABCLIA [id number] [place] [address] [place]#### 83498-7 ####[facility]ORYCLIA [id number] [place] [address] [place] Platelet mean volume (Bld) [Entitic vol] 11.6 fL Normal 9.0-12.7 [facility] Comment on above: Order Comment: Speci men Type: BLOOD SPECIMENOrdering Facility: [facility] Address: [address] Performed By: #### 5 5454-3 ####[facility] LABCLIA [id number] [address] [place]#### [address]-1 ####[facility] LABORATORYCLIA [id number] [place] [address] [place] Platelets (Bld) [#/Vol] 348 10*3/uL Normal 150-400 [facility] Comment on above: Order Comment: Speci men Type: BLOOD SPECIMENOrdering Facility: [facility] Address: [address] [place] [address] Performed By: #### 5 5454-3 ####[facility] LABCLIA [id number] [place] [address] [place]#### 16386-4 ####[facility]ORYCLIA [id number] [place] [address] [place] RBC (Bld) [#/Vol] 3.63 10*6/uL Low 3.90-5.20 [facility] Comment on above: Order Comment: Speci men Type: BLOOD SPECIMENOrdering Facility: [facility] Address: [address] [address] Performed By: #### 5 5454-3 ####[facility] LABCLIA [id number] [place] [address] [place]#### 80328-5 ####[facility]ORATORYCLIA [id number] [place] [address] [place] WBC (Bld) [#/Vol] 9.16 10*3/uL Normal 3.70-11.00 [facility] Comment on above: Order Comment: Speci men Type: BLOOD SPECIMENOrdering Facility: [facility] Address: [address] [address] Performed By: #### 5 5454-3 ####[facility] LABCLIA [id number] [place] [address] [place]#### 66075-3 ####[facility]ORATORYCLIA [id number] [place] [address] [place] CNOVon 05-13-2022 CNOV Normal [facility] Comprehensive metabolic 2000 panelon 05-13-2022 Albumin [Mass/Vol] 4.3 g/dL Normal 3.9-4.9 [facility] Comment on above: Order Comment: Speci men Type: BLOOD SPECIMENOrdering Facility: [facility] Address: [address] Performed By: #### 2 4323-8 ####[facility] LABCLIA [id number] [place] [address] [place] ALP [Catalytic activity/Vol] 159 U/L High 34-123 [facility] Comment on above: Order Comment: Speci men Type: BLOOD SPECIMENOrdering Facility: [facility] Address: [address] Performed By: #### 2 4323-8 ####[facility] LABCLIA [id number] [place] [address] [place] ALT [Catalytic activity/Vol] 29 U/L Normal 7-38 [facility] Comment on above: Order Comment: Speci men Type: BLOOD SPECIMENOrdering Facility: [facility] Address: [address] [place], [place] [address] Performed By: #### 2 4323-8 ####[facility] LABCLIA [id number] [place] [address] [place] Anion gap [Moles/Vol] 10 mmol/L Normal 9-18 [facility] Comment on above: Order Comment: Speci men Type: BLOOD SPECIMENOrdering Facility: [facility] Address: [address] [place] [address] Performed By: #### 2 4323-8 ####[facility] LABCLIA [id number] [address] [place] AST [Catalytic activity/Vol] 32 U/L Normal 13-35 [facility] Comment on above: Order Comment: Speci men Type: BLOOD SPECIMENOrdering Facility: [facility] Address: [address] [place], [place] [address] Performed By: #### 2 4323-8 ####[facility] LABCLIA [id number] [place] [address] [place] Bilirubin [Mass/Vol] 0.3 mg/dL Normal 0.2-1.3 [facility] Comment on above: Order Comment: Speci men Type: BLOOD SPECIMENOrdering Facility: [facility] Address: [address] [place], [place] [address] Performed By: #### 2 4323-8 ####[facility] LABCLIA [id number] [place] [address] [place] Calcium [Mass/Vol] 9.0 mg/dL Normal 8.5-10.2 [facility] Comment on above: Order Comment: Speci men Type: BLOOD SPECIMENOrdering Facility: [facility] Address: [address] Performed By: #### 2 4323-8 ####[facility] LABCLIA [id number] [place] [address] [place] Chloride [Moles/Vol] 105 mmol/L Normal 97-105 [facility] Comment on above: Order Comment: Speci men Type: BLOOD SPECIMENOrdering Facility: [facility] Address: [address] [address] Performed By: #### 2 4323-8 ####[facility] LABCLIA [id number] [place] [address] [place] CO2 [Moles/Vol] 21 mmol/L Low 22-30 [facility] Comment on above: Order Comment: Speci men Type: BLOOD SPECIMENOrdering Facility: [facility] Address: [address] [place] [address] Performed By: #### 2 4323-8 ####[facility] LABCLIA [id number] [place] [address] [place] Creatinine [Mass/Vol] 2.48 mg/dL High 0.58-0.96 [facility] Comment on above: Order Comment: Speci men Type: BLOOD SPECIMENOrdering Facility: [facility] Address: [address] Performed By: #### 2 4323-8 ####[facility] LABCLIA [id number] [place] [address] [place] ESTIMATED GLOMERULAR FILTRATION RATE 25 mL/min/1.73m??? Low >=60 [facility] Comment on above: Order Comment: Speci men Type: BLOOD SPECIMENOrdering Facility: [facility] Address: [address] [place], [place] [address] Result Comment: Isabel mated Glomerular Filtration Rate (eGFR) is calculated using the 2020 CKD-EPI creatinine equation. This equation utilizes serum creatinine, sex, and age as parameters. The creatinine assay has traceable calibration to isotope dilution-mass spectrometry. Refer to KDIGO guidelines for clinical interpretation. In patients with unstable renal function, e.g. those with acute kidney injury, the eGFR may not accurately reflect actual GFR. Performed By: #### 2 4323-8 ####[facility] LABCLIA [id number] [place] [address] [place] Glucose [Mass/Vol] 201 mg/dL High 74-99 [facility] Comment on above: Order Comment: Angel salazar Type: BLOOD SPECIMENOrdering Facility: [facility] Address: [address] [address] Result Comment: The [place] Diabetes Association (ADA) provides guidance for cutoff values for fasting glucose and random glucose. The ADA defines fasting as no caloric intake for at least 8 hours. Fasting plasma glucose results between 100 to 125 mg/dL indicate increased risk for diabetes (prediabetes).Fasting plasma glucose results greater than or equal to 126 mg/dL meet the criteria for diagnosis of diabetes. In the absence of unequivocal hyperglycemia, results should be confirmed by repeat testing. In a patient with classic symptoms of hyperglycemia or hyperglycemic crisis, random plasma glucose results greater than or equal to 200 mg/dL meet the criteria for diagnosis of diabetes.Reference: Standards of Medical Care in Diabetes 2016, [place] [employer]. Diabetes Care. 2016.39(Suppl 1). Performed By: #### 2 4323-8 ####[facility] LABIA [id number] [place] [address] [place] Potassium [Moles/Vol] 5.4 mmol/L High 3.7-5.1 [facility] Comment on above: Order Comment: Angel salazar Type: BLOOD SPECIMENOrdering Facility: [facility] Address: [address] [id number] Performed By: #### 2 4323-8 ####[facility] LABIA [id number] [address] OF [place] Protein [Mass/Vol] 7.8 g/dL Normal 6.3-8.0 [facility] Comment on above: Order Comment: Speci men Type: BLOOD SPECIMENOrdering Facility: [facility] Address: [address] [place] [address] Performed By: #### 2 4323-8 ####[facility] LABCLIA [id number] [place] [address] [place] Sodium [Moles/Vol] 136 mmol/L Normal 136-144 [facility] Comment on above: Order Comment: Speci men Type: BLOOD SPECIMENOrdering Facility: [facility] Address: [address] [place] [address] Performed By: #### 2 4323-8 ####[facility] LABCLIA [id number] [address] [place] Urea nitrogen [Mass/Vol] 31 mg/dL High 7-21 [facility] Comment on above: Order Comment: Speci men Type: BLOOD SPECIMENOrdering Facility: [facility] Address: [address] [place] [address] Performed By: #### 2 4323-8 ####[facility] LABCLIA [id number] [place] [address] [place] HISTORY PHYSICALon HISTORY PHYSICAL Normal [facility] HISTORY PHYSICAL Normal [facility] HbA1c (Bld)on 05-13-2022 Average glucose Estimated from glycated hemoglobin (Bld) [Mass/Vol] 209 mg/dL Normal [facility] Comment on above: Order Comment: Speci men Type: BLOOD SPECIMENOrdering Facility: [facility] Address: [address] [place] [address] Result Comment: eAG: (Estimated average glucose) is a calculated value from HgbA1c and is corporate representative of the average blood glucose level in the last 2-3 month period. Performed By: #### 5 5454-3 ####[facility] LABCLIA [id number] [place] [address] [place]#### 92583-2 ####[facility]ATORYCLIA [id number] [place] [address] [place] HbA1c (Bld) [Mass fraction] 8.9 % High 4.3-5.6 [facility] Comment on above: Order Comment: Speci men Type: BLOOD SPECIMENOrdering Facility: [facility] Address: [address] [place] [address] Result Comment: [place] Diabetes Association guidelines indicate that patients with HgbA1c in the range 5.7-6.4% are at increased risk for development of diabetes, and intervention by lifestyle modification may be beneficial. HgbA1c greater or equal to 6.5% is considered diagnostic of diabetes. Performed By: #### 5 5454-3 ####[facility] LABCLIA [id number] [place] [address] [place]#### 15512-8 ####[facility] LABORATORYIA [id number] [place] [address] [place] TYPE AND SCREEN,30 DAYon ABO A Normal [facility] Comment on above: Order Comment: Speci men Type: BLOOD SPECIMENOrdering Facility: [facility] Address: [address] [place] [address] Performed By: #### T SCR30 ####[facility] BLOOD BANKCLIA [id number] [place] [address] [place] HISTORICAL AB SCR STATUS Negative Normal [facility] Comment on above: Order Comment: Speci men Type: BLOOD SPECIMENOrdering Facility: [facility] Address: [address] [place] [address] Performed By: #### T SCR30 ####[facility] BLOOD BANKIA [id number] [address] [place] Rh Nom (Bld) Positive Normal [facility] Comment on above: Order Comment: Speci men Type: BLOOD SPECIMENOrdering Facility: [facility] Address: [address] [place] [place] [address] Performed By: #### T SCR30 ####[facility] BLO[facility] BANKCLIA [id number] [place] [id number] STATES OF [facility] CNPNon 05-11-2022 CNPN Normal [facility] CNPNon 05-06-2022 CNPN Normal [facility] US DEMETRA DOP LEG RTon 04-29-20 22 US DEMETRA DOP LEG RT EXAMINATION: US DEMETRA DOP LEG RT HISTORY: Pain ; right knee and calf pain COMPARISON: No relevant comparison available. FINDINGS: REGION: Right lower extremity THROMBI: None. COMPRESSIBILITY: Normal compressibility. FLOW: Normal waveform and antegrade flow between 5 and 20 cm/s. OTHER: None. IMPRESSION: 1. No deep vein thrombus within the right lower extremity. Electronically authenticated by: MONTANA HANNON Date: 2022-04-29 09:33 Normal [facility] CNPNon 04-17-2022 CNPN Normal [facility] A1C HEMOGLOBINon 04-14-2022 HbA1c (Bld) [Mass fraction] 7.4 % [facility] Other Glucose - FINGER STICKon Glucose [Mass/Vol] 177 mg/dL [facility] Other HbA1c (Bld) [Mass fraction]o n 04-14-2022 A1C HEMOGLOBIN [facility] Other CBC with Auto Differentialon 04-13-2022 Absolute Eos # [facility] Absolute Immature Granulocyte 0.06 [facility] Absolute Lymph # 2.04 [facility] Absolute Howell # 0.64 [facility] Basophils (Bld) [#/Vol] 0.05 10*3/uL [facility] Basophils/100 WBC (Bld) 0 % 0 - 2 % [facility] Eosinophils/100 WBC (Bld) 0 % Low 1 - 4 % [facility] Hematocrit (Bld) [Volume fraction] 33.2 % Low 36.3 - 47.1 % [facility] Hemoglobin (Bld) [Mass/Vol] 10.5 g/dL Low 11.9 - 15.1 g/dL [facility] Immature granulocytes/100 WBC (Bld) 0 % 0 [facility] Interpretation and review of laboratory results Abnormal [facility] Lymphocytes/100 WBC (Bld) 15 % Low 24 - 43 % [facility] MCH (RBC) [Entitic mass] 28.9 pg 25.2 - 33.5 pg [facility] MCHC (RBC) [Mass/Vol] 31.6 g/dL 28.4 - 34.8 g/dL [facility] MCV (RBC) [Entitic vol] 91.5 fL 82.6 - 102.9 fL [facility] Monocytes/100 WBC (Bld) 5 % 3 - 12 % [facility] NRBC Automated 0.0 0.0 per 100 WBC [facility] Platelet distribution width (Bld) [Ratio] 16.7 % High 11.8 - 14.4 % [facility] Platelet mean volume (Bld) [Entitic vol] 10.2 fL 8.1 - 13.5 fL [facility] Platelets (Bld) [#/Vol] 373 10*3/uL [facility] RBC (Bld) [#/Vol] 3.63 10*6/uL Low 3.95 - 5.11 m/uL [facility] Segmented neutrophils/100 WBC (Bld) 80 % High 36 - 65 % [facility] Segs Absolute 11.16 High [facility] WBC (Bld) [#/Vol] 14.0 10*3/uL High [facility] CMPon 04-13-2022 Albumin [Mass/Vol] 4.2 g/dL 3.5 - 5.2 g/dL [facility] Albumin/Globulin [Mass ratio] 1.4 {ratio} 1.0 - 2.5 [facility] ALP (Bld) [Catalytic activity/Vol] 190 U/L High 35 - 104 U/L [facility] ALT [Catalytic activity/Vol] 63 U/L High 5 - 33 U/L [facility] Anion gap [Moles/Vol] 10 mmol/L 9 - 17 mmol/L [facility] AST [Catalytic activity/Vol] 73 U/L High NINF - 32 U/L [facility] Bilirubin [Mass/Vol] 0.2 mg/dL Low 0.3 - 1 .2 mg/dL [facility] Calcium [Mass/Vol] 9.0 mg/dL 8.6 - 10. 4 mg/dL [facility] Chloride [Moles/Vol] 104 mmol/L 98 - 10 7 mmol/L [facility] CO2 [Moles/Vol] 20 mmol/L 20 - 31 mmol/L [facility] Creatinine [Mass/Vol] 2.15 mg/dL High 0.50 - 0.90 mg/dL [facility] GFR/1.73 sq M.predicted MDRD (S/P/Bld) [Vol rate/Area] 30 mL/min/{1.73_m2} Low - PINF [facility] Comment on above: Effective Mar 09, 2022 These results are not intended for use in patients <18 years of age. eGFR results are calculated without a race factor using the 2020 CKD-EPI equation. Careful clinical correlation is recommended, particularly when comparing to results calculated using previous equations. The CKD-EPI equation is less accurate in patients with extremes of muscle mass, extra-renal metabolism of creatine, excessive creatine ingestion, or following therapy that affects renal tubular secretion. Glucose [Mass/Vol] 168 mg/dL High 70 - 99 mg/dL [facility] Potassium [Moles/Vol] 5.4 mmol/L High 3.7 - 5.3 mmol/L [facility] Protein [Mass/Vol] 7.3 g/dL 6.4 - 8.3 g/dL [facility] Sodium [Moles/Vol] 134 mmol/L Low 135 - 144 mmol/L [facility] Urea nitrogen (BldV) [Mass/Vol] 28 mg/dL High 6 - 20 mg/dL [facility] Urea nitrogen/Creatinine (Bld) [Mass ratio] 13 9 - [address] [facility] [address] ABDOMEN PELVIS WO CONTRAS T Additional Contrast? Noneon 04-13-2022 No acute abdominal o r pelvic abnormality. Status post cholecystectomy and splenectomy. [facility] EXAMINATION: CT OF THE ABDOMEN AND PELVIS WITHOUT CONTRAST 04/13/2022 12:12 pm TECHNIQUE: CT of the abdomen and pelvis was performed without the administration of intravenous contrast. Multiplanar reformatted images are provided for review. Automated exposure control, iterative reconstruction, and/or weight based adjustment of the mA/kV was utilized to reduce the radiation dose to as low as reasonably achievable. COMPARISON: CT abdomen pelvis performed 04/05/2022. HISTORY: ORDERING SYSTEM PROVIDED HISTORY: Severe abdominal pain, history for rectal prolapse TECHNOLOGIST PROVIDED HISTORY: Severe abdominal pain, history for rectal prolapse Is the patient ?->No FINDINGS: Lower Chest: The lung bases are without consolidation or effusion. The visualized cardiac structures are unremarkable. Organs: The liver is normal size and overall attenuation. The gallbladder has been removed. The pancreas and adrenal glands are unremarkable. The spleen is been removed. The kidneys are without obstructive uropathy. The urinary bladder is unremarkable. GI/Bowel: The stomach is contracted and otherwise unremarkable. Loops of small bowel are normal in caliber without evidence for obstruction. The colon contains air and fecal residue. There is no free air or free fluid. Pelvis: The uterus is age-appropriate. Peritoneum/Retroperitoneu m: The psoas muscles are symmetric. The abdominal aorta is normal in caliber. The inferior vena cava is unremarkable. There is no retroperitoneal or mesenteric adenopathy. Bones/Soft Tissues: The extra-abdominal soft tissues are unremarkable. There is no acute osseous abnormality. [facility] Kip Marcum MD - 04/13/2022 EXAMINATION: CT OF THE ABDOMEN AND PELVIS WITHOUT CONTRAST 04/13/2022 12:12 pm TECHNIQUE: CT of the abdomen and pelvis was performed without the administration of intravenous contrast. Multiplanar reformatted images are provided for review. Automated exposure control, iterative reconstruction, and/or weight based adjustment of the mA/kV was utilized to reduce the radiation dose to as low as reasonably achievable. COMPARISON: CT abdomen pelvis performed 04/05/2022. HISTORY: ORDERING SYSTEM PROVIDED HISTORY: Severe abdominal pain, history for rectal prolapse TECHNOLOGIST PROVIDED HISTORY: Severe abdominal pain, history for rectal prolapse Is the patient ?->No FINDINGS: Lower Chest: The lung bases are without consolidation or effusion. The visualized cardiac structures are unremarkable. Organs: The liver is normal size and overall attenuation. The gallbladder has been removed. The pancreas and adrenal glands are unremarkable. The spleen is been removed. The kidneys are without obstructive uropathy. The urinary bladder is unremarkable. GI/Bowel: The stomach is contracted and otherwise unremarkable. Loops of small bowel are normal in caliber without evidence for obstruction. The colon contains air and fecal residue. There is no free air or free fluid. Pelvis: The uterus is age-appropriate. Peritoneum/Retroperitoneu m: The psoas muscles are symmetric. The abdominal aorta is normal in caliber. The inferior vena cava is unremarkable. There is no retroperitoneal or mesenteric adenopathy. Bones/Soft Tissues: The extra-abdominal soft tissues are unremarkable. There is no acute osseous abnormality. IMPRESSION: No acute abdominal or pelvic abnormality. Status post cholecystectomy and splenectomy. [facility] [employer] Work Phone: Radiology Study observation (narrative) [employer] [facility] Work Phone: CT ABDOMEN PELVIS WO CONTRAS T Additional Contrast? NoneOrdered By: Kip Marcum on 04-13-[address] [facility] [employer] Work Phone: HCG Qualitative, Serumon hCG Qual Negative NEGATIVE [facility] Comment on above: Specimens with hCG l evels near the threshold of the test (25 mIU/mL) may give a negative or indeterminate result. In such cases, another test should be performed with a new specimen in 48-72 hours. If early is suspected clinically in this setting, correlation with quantitative serum b-hCG level is suggested. [employer] has confirmed the use of plasma for this test. This has not been cleared or approved by the U.S. Food and Drug Administration. The FDA has determined that such clearance is not necessary. [facility] [employer] Lactic Acidon 04-13-2022 Lactate [Moles/Vol] 1.7 mmol/L 0.5 - 2. 2 mmol/L [facility] [employer] Lipaseon 04-13-2022 Lipase [Catalytic activity/Vol] 6 U/L Low 13 - 60 U/L [facility] No Panel Informationon 04-13 Interpretation and review of laboratory results Abnormal [facility] Urinalysison 04-13-2022 Bilirubin Urine Negative NEGATIVE [facility] Color, UA Yellow Yellow [facility] Glucose, Ur Negative NEGATIVE [facility] Ketones Ql (U) Negative NEGATIVE [facility] Leukocyte esterase Test strip Ql (U) Negative NEGATIVE [facility] Nitrite, Urine Negative NEGATIVE [facility] pH, UA 6.0 5.0 - 9.0 [facility] Protein, UA Negative NEGATIVE [facility] Specific Kitzmiller, UA 1.020 1.010 - 1.020 [facility] Turbidity UA Clear Clear [facility] Urine Hgb Negative NEGATIVE [facility] Urobilinogen, Urine Normal Normal [facility] PRBC LEUKOREDUCEDon 04-07-20 ABO and Rh group Nom (Bld) Cross Match Result Compatible Unit Blood Type A Pos Unit Number [id number] Status Information Transfused Product ID Red Blood Cells Product Code [id number] Cross Match Result Compatible Unit Blood Type A Pos Unit Number [id number] Status Information Transfused Product ID Red Blood Cells Product Code [id number] [facility] Comment on above: Performed By: #### P RBC #### [facility] [address] [place] [address] Dr. Laila Feliciano ABO and Rh group Nom (Bld) Cross Match Result Compatible Unit Blood Type A Pos Unit Number [id number] Status Information Transfused Product ID Red Blood Cells Product Code [id number] Cross Match Result Compatible Unit Blood Type A Pos Unit Number [id number] Status Information Transfused Product ID Red Blood Cells Product Code [id number] [facility] Comment on above: Performed By: #### P RBC #### [facility] [address] [place] [address] Dr. Laila Feliciano CBC AUTO DIFFon 04-03-2022 BASO # 0.1 103/ul Normal 0.0-0.1 [facility] Comment on above: Performed By: #### P RBC #### [facility] [address] [address] [address] Laila Feliciano Basophils/100 WBC (Bld) 0.4 % Normal 0.2-2.0 [facility] Comment on above: Performed By: #### P RBC #### [facility] [address] [address] [address] Laila Feliciano EO # 0.0 103/ul Normal 0.0-0.7 [facility] Comment on above: Performed By: #### P RBC #### [facility] [address] [address] [address] Laila Feliciano Eosinophils/100 WBC (Bld) 0.1 % Critically low 0.9-7.0 [facility] Comment on above: Performed By: #### P RBC #### [facility] [address] [place] [address] Dr. Laila Feliciano Erythrocyte distribution width (RBC) [Ratio] 16.9 % Critically high 11.0-15.0 [facility] Comment on above: Performed By: #### P RBC #### [facility] [address] [address] [address] Laila Feliciano Hematocrit (Bld) [Volume fraction] 28.2 % Critically low 36.0-48.0 [facility] Comment on above: Performed By: #### P RBC #### [facility] [address] [address] [address] Laila Feliciano Hemoglobin (Bld) [Mass/Vol] 9.3 g/dL Critically low 12.0-16.0 [facility] Comment on above: Result Comment: rcvd . blood Performed By: #### P RBC #### [facility] [address] [address] [address] Laila Feliciano IG # 0.11 10e3/ul Critically high 0.00-0.03 [facility] Comment on above: Performed By: #### P RBC #### [facility] [address] [address] [address] aLila Feliciano IG % 0.8 % Critically high 0.0-0.[address] [facility] Comment on above: Performed By: #### P RBC #### [facility] [address] [place] [address] Dr. Laila Feliciano LYMPH # 3.0 103/ul Normal 1.2-3.8 [facility] Comment on above: Performed By: #### P RBC #### [facility] [address] [place] [address] Dr. Laila Feliciano Lymphocytes/100 WBC (Bld) 21.0 % Normal 20.5-60.0 [facility] Comment on above: Performed By: #### P RBC #### [facility] [address] [place] [address] Dr. Laila Feliciano MANUAL DIFF REQ NO Normal [facility] Comment on above: Performed By: #### P RBC #### [facility] [address] [place] [address] Dr. Laila Feliciano MCH (RBC) [Entitic mass] 28.7 pg Normal 26.7-34.0 [facility] Comment on above: Performed By: #### P RBC #### [facility] [address] [place] [address] Dr. Laila Feliciano MCHC (RBC) [Mass/Vol] 33.0 g/dL Normal 29.9-35.2 [facility] Comment on above: Performed By: #### P RBC #### [facility] [address] [place] [address] Dr. Laila Feliciano MCV (RBC) [Entitic vol] 87.0 fL Normal 81.0-99.0 [facility] Comment on above: Performed By: #### P RBC #### [facility] [address] [place] [address] Dr. Laila Feliciano MONO # 0.8 103/ul Normal 0.3-0.8 [facility] Comment on above: Performed By: #### P RBC #### [facility] [address] [place] [address] Dr. Laila Feliciano Monocytes/100 WBC (Bld) 5.6 % Normal 1.7-12.0 [facility] Comment on above: Performed By: #### P RBC #### [facility] [address] [address] [address] Laila Feliciano NEUT # 10.3 103/ul Critically high 1.4-6.5 [facility] Comment on above: Performed By: #### P RBC #### [facility] [address] [address] [address] Laila Feliciano Neutrophils/100 WBC (Bld) 72.1 % Normal 43.0-75.0 [facility] Comment on above: Performed By: #### P RBC #### [facility] [address] [place] [address] Dr. Laila Feliciano Platelet mean volume (Bld) [Entitic vol] 10.2 fL Normal 9.5-13.5 [facility] Comment on above: Performed By: #### P RBC #### [facility] [address] [place] [address] Dr. Laila Feliciano PLT 236 103/ul Normal 150-450 [facility] Comment on above: Performed By: #### P RBC #### [facility] [address] [place] [address] Dr. Laila Feliciano RBC 3.24 106/ul Critically low 4.20-5.40 [facility] Comment on above: Performed By: #### P RBC #### [facility] [address] [place] [address] Dr. Laila Feliciaon WBC 14.2 103/ul Critically high 4.0-11.0 [facility] Comment on above: Performed By: #### P RBC #### [facility] [address] [place] [address] Dr. Laila Feliciano BASO # 0.1 103/ul Normal 0.0-0.1 [facility] Comment on above: Performed By: #### P OCGLUC #### [facility] [address] [place] [address] Dr. Laila Feliciano Basophils/100 WBC (Bld) 0.3 % Normal 0.2-2.0 [facility] Comment on above: Performed By: #### P OCGLUC #### [facility] [address] [address] [address] Laila Feliciano EO # 0.0 103/ul Normal 0.0-0.7 [facility] Comment on above: Performed By: #### P OCGLUC #### [facility] [address] [place] [address] Dr. Laila Feliciano Eosinophils/100 WBC (Bld) 0.0 % Critically low 0.9-7.0 [facility] Comment on above: Performed By: #### P OCGLUC #### [facility] [address] [place] [address] Dr. Laila Feliciano Erythrocyte distribution width (RBC) [Ratio] 17.1 % Critically high 11.0-15.0 [facility] Comment on above: Performed By: #### P OCGLUC #### [facility] [address] [place] [address] Dr. Laila Feliciano Hematocrit (Bld) [Volume fraction] 23.3 % Critically low 36.0-48.0 [facility] Comment on above: Performed By: #### P OCGLUC #### [facility] [address] [place] [address] Dr. Laila Feliciano Hemoglobin (Bld) [Mass/Vol] 7.3 g/dL Critically low 12.0-16.0 [facility] Comment on above: Performed By: #### P OCGLUC #### [facility] [address] [place] [address] Dr. Laila Feliciano IG # 0.10 10e3/ul Critically high 0.00-0.03 [facility] Comment on above: Performed By: #### P OCGLUC #### [facility] [address] [place] [address] Dr. Laila Feliciano IG % 0.7 % Critically high 0.0-0.5 [facility] Comment on above: Performed By: #### P OCGLUC #### [facility] [address] [place] [address] Dr. Laila Feliciano LYMPH # 2.9 103/ul Normal 1.2-3.8 [facility] Comment on above: Performed By: #### P OCGLUC #### [facility] [address] [address] [address] Laila Feliciano Lymphocytes/100 WBC (Bld) 20.2 % Critically low 20.5-60.0 [facility] Comment on above: Performed By: #### P OCGLUC #### [facility] [address] [address] [address] Laila Feliciano MANUAL DIFF REQ NO Normal [facility] Comment on above: Performed By: #### P OCGLUC #### [facility] [address] [address] [address] Laila Feliciano MCH (RBC) [Entitic mass] 26.8 pg Normal 26.7-34.0 [facility] Comment on above: Performed By: #### P OCGLUC #### [facility] [address] [place] [address] Dr. Laila Feliciano MCHC (RBC) [Mass/Vol] 31.3 g/dL Normal 29.9-35.2 [facility] Comment on above: Performed By: #### P OCGLUC #### [facility] [address] [address] [address] Laila Feliciano MCV (RBC) [Entitic vol] 85.7 fL Normal 81.0-99.0 [facility] Comment on above: Performed By: #### P OCGLUC #### [facility] [address] [place] [address] Dr. Laila Feliciano MONO # 0.8 103/ul Normal 0.3-0.8 [facility] Comment on above: Performed By: #### P OCGLUC #### [facility] [address] [address] [address] Laila Feliciano Monocytes/100 WBC (Bld) 5.6 % Normal 1.7-12.0 [facility] Comment on above: Performed By: #### P OCGLUC #### [facility] [address] [place] [address] Dr. Laila Feliciano NEUT # 10.7 103/ul Critically high 1.4-6.5 [facility] Comment on above: Performed By: #### P OCGLUC #### [facility] [address] [address] [address] Laila Feliciano Neutrophils/100 WBC (Bld) 73.2 % Normal 43.0-75.0 [facility] Comment on above: Performed By: #### P OCGLUC #### [facility] [address] [address] [address] Laila Feliciano Platelet mean volume (Bld) [Entitic vol] 10.3 fL Normal 9.5-13.5 [facility] Comment on above: Performed By: #### P OCGLUC #### [facility] [address] [address] [address] Laila Feliciano PLT 260 103/ul Normal 150-450 [facility] Comment on above: Performed By: #### P OCGLUC #### [facility] [address] [address] [address] Laila Feliciano RBC 2.72 106/ul Critically low 4.20-5.[address] [facility] Comment on above: Performed By: #### P OCGLUC #### [facility] [address] [address] [address] Laila Feliciano WBC 14.6 103/ul Critically high 4.0-11.[address] [facility] Comment on above: Performed By: #### P OCGLUC #### [facility] [address] [place] [address] Dr. Laila Feliciano PROF 14(COMP METB)on 022 Albumin [Mass/Vol] 2.9 g/dL Critically low 3.4-5.0 [facility] Comment on above: Performed By: #### P RBC #### [facility] [address] [place] [address] Dr. Laila Feliciano Albumin/Globulin [Mass ratio] 1.0 {ratio} Normal [facility] Comment on above: Performed By: #### P RBC #### [facility] [address] [address] [address] Laila Feliciano ALP [Catalytic activity/Vol] 76 U/L Normal 46-116 [facility] Comment on above: Performed By: #### P RBC #### [facility] [address] [address] [address] Laila Feliciano ALT [Catalytic activity/Vol] 20 U/L Normal 14-59 [facility] Comment on above: Performed By: #### P RBC #### [facility] [address] [address] [address] Laila Feliciano Anion gap [Moles/Vol] 11.2 mmol/L Normal [facility] Comment on above: Performed By: #### P RBC #### [facility] [address] [address] [address] Laila Feliciano AST [Catalytic activity/Vol] 18 U/L Normal 15-37 [facility] Comment on above: Performed By: #### P RBC #### [facility] [address] [address] [address] Laila Feliciano Bilirubin [Mass/Vol] 0.2 mg/dL Normal 0.2-1.0 [facility] Comment on above: Performed By: #### P RBC #### [facility] [address] [address] [address] Laila Feliciano Calcium [Mass/Vol] 7.4 mg/dL Critically low 8.5-10.1 [facility] Comment on above: Performed By: #### P RBC #### [facility] [address] [address] [address] Laila Feliciano Chloride [Moles/Vol] 111 mmol/L Critically high 98-107 [facility] Comment on above: Performed By: #### P RBC #### [facility] [address] [address] [address] Laila Feliciano CO2 [Moles/Vol] 22.0 mmol/L Normal 21.0-32.[address] [facility] Comment on above: Performed By: #### P RBC #### [facility] [address] [address] [address] Laila Feliciano Creatinine [Mass/Vol] 1.93 mg/dL Critically high 0.55-1.02 [facility] Comment on above: Performed By: #### P RBC #### [facility] [address] [address] [address] Laila Feliciano EGFR-AF PAKISTANI 36 mL/min/1.73m2 Critically low >=60 [facility] Comment on above: Performed By: #### P RBC #### [facility] [address] [address] [address] Laila Feliciano EGFR-NON AF PAKISTANI 29 mL/min/1.73m2 Critically low >=60 [facility] Comment on above: Performed By: #### P RBC #### [facility] [address] [address] [address] Laila Feliciano Globulin (S) [Mass/Vol] 2.8 g/dL Normal [facility] Comment on above: Performed By: #### P RBC #### [facility] [address] [address] [address] Laila Feliciano Glucose [Mass/Vol] 147 mg/dL Critically high 74-106 [facility] Comment on above: Performed By: #### P RBC #### [facility] [address] [address] [address] Laila Feliciano Potassium [Moles/Vol] 4.2 mmol/L Normal 3.5-5.1 [facility] Comment on above: Performed By: #### P RBC #### [facility] [address] [address] [address] Laila Feliciano Protein [Mass/Vol] 5.7 g/dL Critically low 6.4-8.2 [facility] Comment on above: Performed By: #### P RBC #### [facility] [address] [address] [address] Laila Feliciano Sodium [Moles/Vol] 140 mmol/L Normal 136-145 [facility] Comment on above: Performed By: #### P RBC #### [facility] [address] [address] [address] Laila Feliciano Urea nitrogen [Mass/Vol] 25.0 mg/dL Critically high 7.0-18.0 [facility] Comment on above: Performed By: #### P RBC #### [facility] [address] [address] [address] Laila Feliciano Urea nitrogen/Creatinine [Mass ratio] 13.0 mg/mg Normal [facility] Comment on above: Performed By: #### P RBC #### [facility] [address] [place] [address] Dr. Laila Feliciano PROTIMEon 04-03-2022 INR Coag (PPP) [Relative time] 1.16 {INR} Normal [facility] Comment on above: Performed By: #### P OCGLUC #### [facility] [address] [place] [address] Dr. Laila Feliciano INR GUIDELINES SEE BELOW Normal [facility] Comment on above: Result Comment: SIDNEY RED INR: 2.0 - 3.0 CONDITIONS NOT LISTED BELOW 2.5 - 3.5 FOR PROSTHETIC HEART VALVE REPLACEMENT 2.5 - 3.5 RECURRENT THROMBOSIS Performed By: #### P OCGLUC #### [facility] [address] [place] [address] Dr. Laila Feliciano PT Coag (PPP) [Time] 12.4 s Critically high 9.0-11.6 [facility] Comment on above: Performed By: #### P OCGLUC #### [facility] [address] [place] [address] Dr. Laila Feliciano PTTon 04-03-2022 aPTT Coag (Bld) [Time] 27.4 s Normal 22.3-36.2 Th [facility] Comment on above: Performed By: #### P OCGLUC #### [facility] [address] [place] [address] Dr. Laila Feliciano ACETONE SERUMon 04-02-2022 ACETONE Negative Normal NEGATIVE [facility] Comment on above: Performed By: #### P OCGLUC #### [facility] [address] [place] [address] Dr. Laila Feliciano AMYLASEon 04-02-2022 Amylase [Catalytic activity/Vol] 24 U/L Critically low 25-115 [facility] Comment on above: Performed By: #### P RBC #### [facility] [address] [place] [address] Dr. Laila Feliciano CBC AUTO DIFFon 04-02-2022 BASO # 0.0 103/ul Normal 0.0-0.1 [facility] Comment on above: Performed By: #### B LDCX2 #### [facility] [address] [place] [address] Dr. Laila Feliciano Basophils/100 WBC (Bld) 0.2 % Normal 0.2-2.0 [facility] Comment on above: Performed By: #### B LDCX2 #### [facility] [address] [place] [address] Dr. Laila Feliciano EO # 0.0 103/ul Normal 0.0-0.7 [facility] Comment on above: Performed By: #### B LDCX2 #### [facility] [address] [place] [address] Dr. Laila Feliciano Eosinophils/100 WBC (Bld) 0.0 % Critically low 0.9-7.0 [facility] Comment on above: Performed By: #### B LDCX2 #### [facility] [address] [place] [address] Dr. Laila Feliciano Erythrocyte distribution width (RBC) [Ratio] 17.1 % Critically high 11.0-15.0 [facility] Comment on above: Performed By: #### B LDCX2 #### [facility] [address] [place] [address] Dr. Laila Feliciano Hematocrit (Bld) [Volume fraction] 21.4 % Critically low 36.0-48.0 [facility] Comment on above: Performed By: #### B LDCX2 #### [facility] [address] [place] [address] Dr. Laila Feliciano Hemoglobin (Bld) [Mass/Vol] 6.4 g/dL Critically low 12.0-16.0 [facility] Comment on above: Performed By: #### B LDCX2 #### [facility] [address] [place] [address] Dr. Laila Feliciano IG # 0.10 10e3/ul Critically high 0.00-0.03 [facility] Comment on above: Performed By: #### B LDCX2 #### [facility] [address] [address] [address] Laila Feliciano IG % 0.7 % Critically high 0.0-0.5 [facility] [place] Comment on above: Performed By: #### B LDCX2 #### [facility] [address] [address] [address] Laila Feliciano LYMPH # 2.1 103/ul Normal 1.2-3.8 [facility] Comment on above: Performed By: #### B LDCX2 #### [facility] [address] [address] [address] Laila Feliciano Lymphocytes/100 WBC (Bld) 15.2 % Critically low 20.5-60.0 [facility] Comment on above: Performed By: #### B LDCX2 #### [facility] [address] [place] [address] Dr. Laila Feliciano MANUAL DIFF REQ NO Normal [facility] [place] Comment on above: Performed By: #### B LDCX2 #### [facility] [address] [place] [address] Dr. Laila Feliciano MCH (RBC) [Entitic mass] 26.2 pg Critically low 26.7-34.0 [facility] Comment on above: Performed By: #### B LDCX2 #### [facility] [address] [place] [address] Dr. Laila Feliciano MCHC (RBC) [Mass/Vol] 30.3 g/dL Normal 29.9-35.2 [facility] Comment on above: Performed By: #### B LDCX2 #### [facility] [address] [place] [address] Dr. Laila Feliciano MCV (RBC) [Entitic vol] 86.5 fL Normal 81.0-99.0 [facility] Comment on above: Performed By: #### B LDCX2 #### [facility] [address] [place] [address] Dr. Laila Feliciano MONO # 0.5 103/ul Normal 0.3-0.8 [facility] Comment on above: Performed By: #### B LDCX2 #### [facility] [address] [address] [address] Laila Feliciano Monocytes/100 WBC (Bld) 3.9 % Normal 1.7-12.0 [facility] Comment on above: Performed By: #### B LDCX2 #### [facility] [address] [address] [address] Laila Feliciano NEUT # 11.0 103/ul Critically high 1.4-6.[address] [facility] Comment on above: Performed By: #### B LDCX2 #### [facility] [address] [place] [address] Dr. Laila Feliciano Neutrophils/100 WBC (Bld) 80.0 % Critically high 43.0-75.0 [facility] Comment on above: Performed By: #### B LDCX2 #### [facility] [address] [place] [address] Dr. Laila Feliciano Platelet mean volume (Bld) [Entitic vol] 11.0 fL Normal 9.5-13.5 [facility] Comment on above: Performed By: #### B LDCX2 #### [facility] [address] [address] [address] Laila Feliciano PLT 357 103/ul Normal 150-450 [facility] Comment on above: Performed By: #### B LDCX2 #### [facility] [address] [place] [address] Dr. Laila Feliciano RBC 2.44 106/ul Critically low 4.20-5.40 [facility] [place] Comment on above: Performed By: #### B LDCX2 #### [facility] [address] [place] [address] Dr. Laila Feliciano WBC 13.8 103/ul Critically high 4.0-11.0 [facility] Comment on above: Performed By: #### B LDCX2 #### [facility] [address] [place] [address] ABD/PELVIS WO CONon 04-02 CT ABD/PELVIS WO CON EXAMINATION: CT ABD/PELVIS WO CON, 04/02/2022 1:45 PM EDT HISTORY: UNSPECIFIED ABDOMINAL PAIN COMPARISON: 02/24/2022 TECHNIQUE: CT scan of the abdomen and pelvis was performed without IV contrast. CT dose reduction technique was used, including Automated Exposure Control. ABDOMEN/PELVIS FINDINGS: Lower Chest: Unremarkable. Liver: Normal nonenhanced appearance and contour. Biliary/Gallbladder: Prior cholecystectomy. Pneumobilia is present. Visualization is limited, but there may be postoperative changes of a hepaticojejunostomy. Pancreas: Severe atrophy of the pancreas with surgical clips noted in the expected region of the pancreatic head Spleen: Prior splenectomy. Adrenal Glands: Unremarkable. Kidneys: Unremarkable. Gastrointestinal/Peritone um: Thick-walled and featureless appearance of the rectosigmoid colon. There are no dilated loops of bowel. The appendix is unremarkable. No free air or free fluid. Vascular: Unremarkable. Lymph Nodes: No enlarged lymph nodes by CT size criteria. Pelvic Organs: An IUD is present. Bladder: Unremarkable. Bones: No acute osseous abnormality. Soft tissues: Unremarkable. IMPRESSION: 1. Thick walled and featureless appearance of the rectosigmoid colon, possibly due to acute or chronic infectious/inflammatory proctocolitis. 2. Postoperative changes of the upper abdomen including prior splenectomy and cholecystectomy. 3. IUD present. Electronically authenticated by: DADA WALLACE Date: 2022-04-02 14:35 Normal [facility] CULTURE BLOODon 04-02-2022 Microscopic examination of blood, culture Culture Observations: NO GROWTH AT 5 DAYS. Normal [facility] Comment on above: Performed By: #### B LDCX2 #### [facility] [address] [address] [address] Laila Feliciano Microscopic examination of blood, culture Culture Observations: NO GROWTH AT 5 DAYS. Normal [facility] Comment on above: Performed By: #### C BC #### [facility] [address] [place], [place] [address] Dr. Laila Feliciano Covid-19 PCR ([facility])on 03-08 SARS-CoV-2 (COVID-19) RNA DAVIS+probe Ql (Unsp spec) Not detected Normal NOT DETECTED [facility] Comment on above: Result Comment: When diagnostic testing is negative, the possibility of a false negative should be considered in the context of a patient's recent exposures and the presence of clinical signs and symptoms consistent with SARS-CoV-2. This test is not yet approved or cleared by the [place] FDA. When there are no FDA-approved or cleared tests available, and other criteria are met, FDA can make tests available under an emergency access mechanism called an Emergency Use Authorization (EUA). The EUA for this test is supported by the Dialysis Chief Equipment Technician of Health and Human Service's declaration that circumstances exist to justify the emergency use of in vitro diagnostics for the detection and/or diagnosis of the virus that causes COVID-19. This EUA will remain in effect for the duration of the COVID-19 declaration justifying emergency of IVDs, unless it is terminated or revoked by the FDA (after which the test may no longer be used). Performed By: #### C BC #### [facility] [address] [place] [address] Dr. Laila Feliciano ER URINE PROFILEon 2 Bilirubin Ql (U) Negative Normal NEGATIVE [facility] Comment on above: Performed By: #### T NS #### [facility] [address] [place] [address] Dr. Laila Feliciano Clarity (U) CLEAR Normal CLEAR [facility] Comment on above: Performed By: #### T NS #### [facility] [address] [place] [address] Dr. Laila Feliciano Color (U) LT. YELLOW Normal YELLOW [facility] Comment on above: Performed By: #### T NS #### [facility] [address] [place] [address] Dr. Laila Feliciano ERUAHD A micrscopic examina tion will be performed if indicated. Normal [facility] Comment on above: Performed By: #### T NS #### [facility] [address] [place] [address] Dr. Laila Feliciano Glucose Ql (U) 500 mg/dl Abnormal NEGATIVE [facility] Comment on above: Performed By: #### T NS #### [facility] [address] [place] [address] Dr. Laila Feliciano Hemoglobin Ql (U) Negative Normal NEGATIVE [facility] Comment on above: Performed By: #### T NS #### [facility] [address] [place] [address] Dr. Laila Feliciano Ketones Ql (U) Negative Normal NEGATIVE [facility] Comment on above: Performed By: #### T NS #### [facility] [address] [place] [address] Dr. Laila Feliciano LEUKOCYTES Negative Normal NEGATIVE [facility] Comment on above: Performed By: #### T NS #### [facility] [address] [place] [address] Dr. Laila Feliciano Nitrite Ql (U) Negative Normal NEGATIVE [facility] Comment on above: Performed By: #### T NS #### [facility] [address] [place] [address] Dr. Laila Feliciano pH (U) 6.0 [pH] Normal 5-9 [facility] Comment on above: Performed By: #### T NS #### [facility] [address] [place] [address] Dr. Laila Feliciano SPEC GRAVITY >=1.030 Abnormal 1.005-<=1. 025 [facility] Comment on above: Performed By: #### T NS #### [facility] [address] [place] [address] Dr. Laila Feliciano UA PROTEIN Negative Normal NEGATIVE/ TRACE [facility] Comment on above: Performed By: #### T NS #### [facility] [address] [place] [address] Dr. Laila Feliciano UR MICRO IND NOT INDICATED Normal [facility] Comment on above: Performed By: #### T NS #### [facility] [address] [place] [address] Dr. Laila Feliciano Urobilinogen Qn (U) 0.2 {Edgar'U}/dL Normal 0.2 - 1. 0 [facility] Comment on above: Performed By: #### T NS #### [facility] [address] [place] [address] Dr. Laila Feliciano LACTATE/LACTIC ACIDon 2021 Lactate [Moles/Vol] 0.4 mmol/L Normal 0.4-1.9 [facility] Comment on above: Performed By: #### B LDCX2 #### [facility] [address] [place] [address] Dr. Laila Feliciano Lactate [Moles/Vol] 1.2 mmol/L Normal 0.4-1.9 [facility] Comment on above: Performed By: #### B LDCX2 #### [facility] [address] [place] [address] Dr. Laila Feliciano Lactate [Moles/Vol] 4.2 mmol/L Critically high 0.4-1.9 [facility] Comment on above: Performed By: #### P OCGLUC #### [facility] [address] [place] [address] Dr. Laila Feliciano LIPASEon 04-02-2022 Lipase [Catalytic activity/Vol] 12.0 U/L Critically low 73.0-393.0 [facility] Comment on above: Performed By: #### P RBC #### [facility] [address] [place] [address] Dr. Laila Feliciano PH VENOUS BLOODon 04-02-2022 PCO2 VENOUS 41.5 mmHg Normal 40.0-52.0 [facility] Comment on above: Performed By: #### P RBC #### [facility] [address] [place] [address] Dr. Laila Feliciano pH VENOUS 7.243 Critically low 7.330-7.43 0 [facility] Comment on above: Performed By: #### P RBC #### [facility] [address] [place] [address] Dr. Laila Feliciano POINT OF CARE GLUCOSEon 03-08 Glucose [Mass/Vol] 110 mg/dL Critically high 74-106 [facility] Comment on above: Performed By: #### P OCGLUC #### [facility] [address] [place] [address] Dr. Laila Feliciano Glucose [Mass/Vol] 223 mg/dL Critically high 74-106 [facility] Comment on above: Performed By: #### C BC #### [facility] [address] [place], [place] [id number] Dr. Laila Feliciano Glucose [Mass/Vol] 338 mg/dL Critically high 74-106 [facility] Comment on above: Performed By: #### P OCGLUC #### [facility] [address] [place] [address] Dr. Laila Feliciano PROF 14(COMP METB)on 04-02- 022 Albumin [Mass/Vol] 3.2 g/dL Critically low 3.4-5.0 [facility] Comment on above: Performed By: #### P RBC #### [facility] [address] [place] [address] Dr. Laila Feliciano Albumin/Globulin [Mass ratio] 1.0 {ratio} Normal [facility] Comment on above: Performed By: #### P RBC #### [facility] [address] [place] [address] Dr. Laila Feliciano ALP [Catalytic activity/Vol] 82 U/L Normal 46-116 [facility] Comment on above: Performed By: #### P RBC #### [facility] [address] [place] [address] Dr. Laila Feliciano ALT [Catalytic activity/Vol] 20 U/L Normal 14-59 [facility] Comment on above: Performed By: #### P RBC #### [facility] [address] [place] [address] Dr. Laila Feliciano Anion gap [Moles/Vol] 17.2 mmol/L Normal [facility] Comment on above: Performed By: #### P RBC #### [facility] [address] [place] [address] Dr. Laila Feliciano AST [Catalytic activity/Vol] 15 U/L Normal 15-37 [facility] Comment on above: Performed By: #### P RBC #### [facility] [address] [place] [address] Dr. Laila Feliciaon Bilirubin [Mass/Vol] 0.2 mg/dL Normal 0.2-1.0 [facility] Comment on above: Performed By: #### P RBC #### [facility] [address] [place] [address] Dr. Laila Feliciano Calcium [Mass/Vol] 8.0 mg/dL Critically low 8.5-10.1 Th [facility] Comment on above: Performed By: #### P RBC #### [facility] [address] [place] [address] Dr. Laila Feliciano Chloride [Moles/Vol] 102 mmol/L Normal 98-107 [facility] Comment on above: Performed By: #### P RBC #### [facility] [address] [place] [address] Dr. Laila Feliciano CO2 [Moles/Vol] 18.0 mmol/L Critically low 21.0-32.0 [facility] Comment on above: Performed By: #### P RBC #### [facility] [address] [place] [address] Dr. Laila Feliciano Creatinine [Mass/Vol] 2.90 mg/dL Critically high 0.55-1.02 [facility] Comment on above: Performed By: #### P RBC #### [facility] [address] [place] [address] Dr. Laila Feliciano EGFR-AF PAKISTANI 22 mL/min/1.73m2 Critically low >=60 [facility] Comment on above: Performed By: #### P RBC #### [facility] [address] [place] [address] Dr. Laila Feliciano EGFR-NON AF PAKISTANI 18 mL/min/1.73m2 Critically low >=60 [facility] Comment on above: Performed By: #### P RBC #### [facility] [address] [place] [address] Dr. Laila Feliciano Globulin (S) [Mass/Vol] 3.2 g/dL Normal [facility] Comment on above: Performed By: #### P RBC #### [facility] [address] [place] [address] Dr. Laila Feliciano Glucose [Mass/Vol] 375 mg/dL Critically high 74-106 [facility] Comment on above: Performed By: #### P RBC #### [facility] [address] [place] [address] Dr. Laila Feliciano Potassium [Moles/Vol] 4.2 mmol/L Normal 3.5-5.1 [facility] Comment on above: Performed By: #### P RBC #### [facility] [address] [place] [address] Dr. Laila Feliciano Protein [Mass/Vol] 6.4 g/dL Normal 6.4-8.2 [facility] Comment on above: Performed By: #### P RBC #### [facility] [address] [place] [address] Dr. Laila Feliciano Sodium [Moles/Vol] 133 mmol/L Critically low 136-145 [facility] Comment on above: Performed By: #### P RBC #### [facility] [address] [place] [address] Dr. Laila Feliciano Urea nitrogen [Mass/Vol] 30.0 mg/dL Critically high 7.0-18.0 [facility] Comment on above: Performed By: #### P RBC #### [facility] [address] [place] [address] Dr. Laila Feliciano Urea nitrogen/Creatinine [Mass ratio] 10.3 mg/mg Normal [facility] Comment on above: Performed By: #### P RBC #### [facility] [address] [place] [address] Dr. Laila Feliciano PROTIMEon 04-02-2022 INR Coag (PPP) [Relative time] 1.09 {INR} Normal [facility] Comment on above: Performed By: #### P OCGLUC #### [facility] [address] [place] [address] Dr. Laila Feliciano INR GUIDELINES SEE BELOW Normal [facility] Comment on above: Result Comment: SIDNEY RED INR: 2.0 - 3.0 CONDITIONS NOT LISTED BELOW 2.5 - 3.5 FOR PROSTHETIC HEART VALVE REPLACEMENT 2.5 - 3.5 RECURRENT THROMBOSIS Performed By: #### P OCGLUC #### [facility] [address] [place] [address] Dr. Laila Feliciano PT Coag (PPP) [Time] 11.7 s Critically high 9.0-11.6 [facility] Comment on above: Performed By: #### P OCGLUC #### [facility] [address] [place], [place] [address] Dr. Laila Feliciano PTTon 04-02-2022 aPTT Coag (Bld) [Time] 23.9 s Normal 22.3-36.2 Th [facility] Comment on above: Performed By: #### P OCGLUC #### [facility] [address] [place], [place] [address] Dr. Laila Feliciano TYPE AND SCREENon 04-02-2022 TYPE AND SCREEN Negative Normal [facility] Comment on above: Performed By: #### T NS #### [facility] [address] [place], [place] [address] Dr. Laila Feliciano XR CHEST 1 Von 04-02-2022 XR CHEST 1 V EXAMINATION: XR CHES T 1 V HISTORY: Asthenia , shortness of breath COMPARISON: XR abdomen with PA chest 08/31/2021 FINDINGS: LUNGS: No significant pulmonary parenchymal abnormalities. VASCULATURE: No increased pulmonary vasculature. PLEURA: No pneumothorax, effusion, or pleural thickening. CARDIAC: No cardiomegaly or cardiac silhouette abnormality. MEDIASTINUM: No visible mass or adenopathy. BONES: No fracture or visible bone lesion. OTHER: Stable Port-A-Cath projecting over right chest. IMPRESSION: 1. No acute cardiopulmonary process. Electronically authenticated by: MONTANA HANNNO Date: 2022-04-02 16:59 Normal [facility] Anisocytosis LM Ql (Bld)Orde red By: Jalyn Holt on 03-31-2022 Anisocytosis Ql (Bld) Moderate [facility] Basophils Auto (Bld) [#/Vol] Ordered By: Jalyn Holt on 03-31-2022 Basophils (Bld) [#/Vol] N/A [facility] Basophils/100 WBC Auto (Bld) Ordered By: Jalyn Holt on 03-31-2022 Basophils/100 WBC (Bld) N/A [facility] Basophils/100 WBC Manual cnt (Bld)Ordered By: Jalyn Holt on 03-31-2022 Basophils/100 WBC (Bld) 1 % 0-2 [facility] Body fluid albumin measureme nt (mass/volume)Ordered By: Jalyn Holt on 03-31-2022 Albumin (Body fld) [Mass/Vol] 4.0 g/dL 3.2-5.5 [facility] Comprehensive Metabolic Pane wilver 03-31-2022 Albumin [Mass/Vol] 4.237070 g/dL Normal 3.2-5.5 g/dL [facility] Other ALT [Catalytic activity/Vol] 17 U/L Normal 10-60 U/L [facility] Other Bilirubin [Mass/Vol] 0.1545553 mg/dL Low 0.3- 1.2 mg/dL [facility] Other Calcium [Mass/Vol] 9.9443130 mg/dL Normal 8.2-10 .2 mg/dL [facility] Other CO2 [Moles/Vol] 19.58114219 mmol/L Low 22.0-3 0.0 mmol/L [facility] Other Creatinine [Mass/Vol] 1.68038909 mg/dL High 0. 44-1.03 mg/dL [facility] Other Potassium [Moles/Vol] 4.79767044 mmol/L Normal 3 .5-5.1 mmol/L [facility] Other Protein [Mass/Vol] 7.400944 g/dL Normal 6.1-7.9 g/dL [facility] Other Comprehensive Metabolic Panel 32 [facility] Other Comprehensive Metabolic Panel 39 [facility] Other Comprehensive Metabolic Panel 3.0 g/dL [facility] Other Comprehensive Metabolic Pane lOrdered By: Jalyn Holt on 03-31-2022 Albumin/Globulin [Mass ratio] 1.3 {ratio} [facility] ALP [Catalytic activity/Vol] 87 U/L 32-92 [facility] AST [Catalytic activity/Vol] 22 U/L 10-42 [facility] Chloride [Moles/Vol] 108 mmol/L 95-114 [facility] Glucose [Mass/Vol] 189 mg/dL 70-100 [facility] Comment on above: ADA recommended refe rence rangeRandom Glucose Reference Range is dependent on time and content of last meal. Glucose of more than 200 mg/dL in a nonstressed, ambulatory subject supports the diagnosis of Diabetes Mellitus. Sodium [Moles/Vol] 136 mmol/L 136-146 [facility] Urea nitrogen [Mass/Vol] 22 mg/dL 02-27 [facility] Creatinine and Glomerular fi ltration rate.predicted panel (S/P/Bld)Ordered By: Jalyn Holt on 03-31-2022 Creatinine [Mass/Vol] 1.78 mg/dL 0.44-1.[address] [facility] Eosinophils Auto (Bld) [#/Vo l]Ordered By: Jalyn Holt on 03-31-2022 Eosinophils (Bld) [#/Vol] N/A [facility] Eosinophils/100 WBC Auto (Bl d)Ordered By: Jalyn Holt on 03-31-2022 Eosinophils/100 WBC (Bld) N/A [facility] Erythrocyte distribution wid th Auto (RBC) [Ratio]Ordered By: Jalyn Holt on 03-31-2022 Erythrocyte distribution width (RBC) [Ratio] 17.1 % 11.9-15.3 [facility] Estimated glomerular filtrat ion rate (GFR) non- AmericanOrdered By: Jalyn Holt on 03-31-2022 GFR/1.73 sq M.predicted among non-blacks MDRD (S/P/Bld) [Vol rate/Area] 32 mL/Min [facility] Globulin Calc (S) [Mass/Vol] Ordered By: Jalyn Holt on 03-31-2022 Globulin (S) [Mass/Vol] 3.0 g/dL [facility] Hematocrit Auto (Bld) [Volum e fraction]Ordered By: Jalyn Holt on 03-31-2022 Hematocrit (Bld) [Volume fraction] 30.2 % 34.0-46.4 [facility] Hemoglobin [Mass/volume] in BloodOrdered By: Jalyn oHlt on 03-31-2022 Hemoglobin (Bld) [Mass/Vol] 9.3 g/dL 11.8-15.4 [facility] Hypochromia LM Ql (Bld)Order ed By: Jalyn Holt on 03-31-2022 Hypochromia Ql (Bld) Slight [facility] - Hematology and Cell countsOrdered By: Jalyn Holt on 03-31-2022 Nucleated RBC/100 WBC (Bld) [Ratio] 0.1 % 0-0.5 [facility] Leukocytes [#/volume] in Blo od by Automated countOrdered By: Jalyn Holt on 03-31-2022 WBC (Bld) [#/Vol] 7.8 10*3/uL 4.5-11.0 [facility] Lymphocytes Auto (Bld) [#/Vo l]Ordered By: Jalyn Holt on 03-31-2022 Lymphocytes (Bld) [#/Vol] N/A [facility] Lymphocytes/100 WBC Auto (Bl d)Ordered By: Jalyn Holt on 03-31-2022 Lymphocytes/100 WBC (Bld) N/A [facility] Lymphocytes/100 WBC Manual c nt (Bld)Ordered By: Jalyn Holt on 03-31-2022 Lymphocytes/100 WBC (Bld) 33 % 18-42 [facility] MCH Auto (RBC) [Entitic mass ]Ordered By: Jalyn Holt on 03-31-2022 MCH (RBC) [Entitic mass] 25.8 pg 24.7-34.3 [facility] MCHC Auto (RBC) [Mass/Vol]Or dered By: Jalyn Holt on 03-31-2022 MCHC (RBC) [Mass/Vol] 30.8 g/dL 32.0-35.[address] [facility] MCV Auto (RBC) [Entitic vol] Ordered By: Jalyn Holt on 03-31-2022 MCV (RBC) [Entitic vol] 83.9 fL 80-100 [facility] Monocytes Auto (Bld) [#/Vol] Ordered By: Jalyn Holt on 03-31-2022 Monocytes (Bld) [#/Vol] N/A [facility] Monocytes/100 WBC Auto (Bld) Ordered By: Jalyn Holt on 03-31-2022 Monocytes/100 WBC (Bld) N/A [facility] Monocytes/100 WBC Manual cnt (Bld)Ordered By: Jalyn Holt on 03-31-2022 Monocytes/100 WBC (Bld) 8 % 2-11 [facility] Neutrophils Auto (Bld) [#/Vo l]Ordered By: Jalyn Holt on 03-31-2022 Neutrophils (Bld) [#/Vol] N/A [facility] Neutrophils/100 WBC Auto (Bl d)Ordered By: Jalyn Holt on 03-31-2022 Neutrophils/100 WBC (Bld) N/A [facility] No Panel InformationOrdered By: Jalyn Holt on 03-31-2022 Estimated GFR () 39 mL/Min [facility] Comment on above: GFR estimated refere nce range: According to KDOQI guidelines, <60 ml/min/1.73m2 is sufficient to diagnose a patient with chronic kidney disease. Pharmacy Creatinine Clearance (Chem N/A [facility] Platelet adequacy [Presence] in Blood by Light microscopyOrdered By: Jalyn Holt on 03-31-2022 Platelets LM Ql (Bld) Increased Normal Fir [facility] Platelet mean volume Auto (B ld) [Entitic vol]Ordered By: Jalyn Holt on 03-31-2022 Platelet mean volume (Bld) [Entitic vol] 9.0 fL 6.3-10.7 [facility] Platelet morphology finding [Identifier] in BloodOrdered By: Jalyn Holt on 03-31-2022 Platelet morphology finding Nom (Bld) Normal Normal [facility] Platelets Auto (Bld) [#/Vol] Ordered By: Jalyn Holt on 03-31-2022 Platelets (Bld) [#/Vol] 473 10*3/uL 150-450 [facility] Protein [Mass/volume] in Ser um or PlasmaOrdered By: Jalyn Holt on 03-31-2022 Protein [Mass/Vol] 7.0 g/dL 6.1-7.9 [facility] RBC Auto (Bld) [#/Vol]Ordere d By: Jalyn Holt on 03-31-2022 RBC (Bld) [#/Vol] 3.60 10*6/uL 3.60-5.00 [facility] RBC morphologyOrdered By: Yannick Holt on 03-31-2022 RBC morphology finding Nom (Bld) N/A [facility] Segmented neutrophils/100 WB C Manual cnt (Bld)Ordered By: Jalyn Holt on 03-31-2022 Segmented neutrophils/100 WBC (Bld) 58 % 50-70 [facility] Serum or plasma alanine tate otransferase measurement without P-5'-P (enzymatic activiOrdered By: Jalyn Holt on 03-31-2022 ALT No additional P-5'-P [Catalytic activity/Vol] 17 U/L 10-60 [facility] Serum or plasma anion gap de terminationOrdered By: Jalyn Holt on 03-31-2022 Anion gap [Moles/Vol] 13.1 mmol/L 6.0-15.0 [facility] Serum or plasma calcium amber urement (mass/volume)Ordered By: Jalyn Holt on 03-31-2022 Calcium [Mass/Vol] 9.3 mg/dL 8.2-10.2 [facility] Serum or plasma potassium me asurement (moles/volume)Ordered By: Jalyn Holt on 03-31-2022 Potassium [Moles/Vol] 4.7 mmol/L 3.5-5.[address] [facility] Serum or plasma total biliru bin measurement (mass/volume)Ordered By: Jalyn Holt on 03-31-2022 Bilirubin [Mass/Vol] 0.2 mg/dL 0.3-1.2 [facility] Serum or plasma total carbon dioxide measurement (moles/volume)Ordered By: Jalyn Holt on 03-31-2022 CO2 [Moles/Vol] 19.6 mmol/L 22.0-30.0 [facility] Coding Summaryon 03-09-2022 Coding Summary HTMLBase 64 VmwwkujpCRp4nHv+PGhlYWQ+P H9JYWHhF47krMZygX1ZQ2kYCE 1VLKVTTSNNJX6ITL5sfFT1MEk xI3LbwhPq PnwqjGFsGF45TDg5TAX3yZjxW UpjwD4gdHYdO5c2NxItHX09zK 24ZRpaPAAiFeT4FuNmrxtogON y Q0fpBfVzuGHrVqi+PHRhYmxlI HdpZHRoPScxMDAlJyBzdHlsZT 2iLv2tFNXjDYAqfDryiTVyDzC j v5pqSUDiYKlgRQ2kdBkrU8Jje FN4OEHcg0y1Fa39vLH+PHRkIH A4cUqbKZhqd415MbOhs8maEEZ 3 gEDwZMjlGXX2R71do0L2SEQwZ LWxMSG0rSB5iT4qzGmovildN6 DomTWtGeE3GEV3vAYzxQ3jkOz n czhizM7iKgz+S75ZDF3XNAKSU L2BOnw1X3OrCtqwhUP+PC90YW YaBQ81rKFejLOjn2fzyAk9PxX w JLIzSTN3gIlfXZist9JzNZXsH 51ncDHmb4D6ERQxbHsypBKkKi NwyDI2oU8dWPdwiecey9fwvok n Izeyw7sctm55oD31D62yVHpjT WViOXO7XECzRLChuShovh5xfW 9wIi8+MYldo9pvm0nyzOf0XiC w SORgzkHisXtsOBC8r0GzHu12W 7VehHygm3PgAab1tz20xBGsc3 B1rFK6LQvmOJRbsC8lVAokYjU 6 UCNfBjPdcR06wINiBPoyLu6qt EvpjLdzKU6pOZPoxezwVNGvkB 8lXYSuwXOnwKcgRF2vYCZufvk m h264BgPjZLB0DOSnoBZgF9Fyc W5qSgFlJUBlJDVtX9TuxBYaAN gtG435JGeqEpT2EGAhboWxR8Y s VVHkzVuqPkW2r7Y0Hf0Hs1Goi qgpSNU4IDujDLQrVfQnYhQaPp Q6C1ElJok0DNUksKemOK2iP2J h SIAkgfbzyzhvmUO1LUCoYNSkr C75vZXbXZdpDm1qo6J9d787SF UaOCUviC16Kh0eaDkzCPJnlDE U xC8qvphrp4ydbzulJfVrZHEfD Kz9OYi3JVPajBufGvCzMOI1Kz W6OFB0gCLehQ2zkFfocziybS4 w Oyc+W05faN0vCWJ5IBB7rnikX YNczjPhIF73XR06R3VhFvtruZ FibGU+KUPzeiBygSluVV8zKuE j j5ugr0YdVFsqX4ZpRNGoPMbnM ry2UDVyADH2uEP1eB1yOKOxXK hwl4J4iUO1Y3RhweAjof8rb4j s WTKdNYrxF18jzQXbv6Z7FTVtu MW6ZCFvoBgbBlEfpZ95Tdl+PG DjtGwrv1NtOzjzd5fad9xigUp 9 EoQkFUAnpyXucLdmTUA2a0FbN r96S19xGNyjBMBxRLFoFXQdPM YibMygmn9bmA2eHi5+PGNvbCB 3 fIH7yH2iEHAwTuI5QMayY155Y iYilXLjHoizy9aqj9rddBl9Kf GvSBUishGytUclBXH3e9XvEi1 8 C20oDMksKSQzLOAdWSHeHXZua Fbvlf0rmZ8fBa4+WM4kw0moxw 35bS83fWR+TNBiSMP5uTpmYVo w MLSkeV1yHVxmHvL6POQkNzUcv G68uKAdDZvlIr5lvYqujEwoTL 2wDUYkopnnr917RtMlf3zwHVM w cICvRRwsVWR8S10sj0M1GVOfN ESlNZS6kRL7yV0wlAbexxpjtT VeeEyfeoVwcHttFOgdKDiiN29 6 IHRvcDsnPlBhdGllbnQgTmFtZ Rd8B7WuItf7HAFnpPizCN8mgC FpJQbsWc1rlQvljJclPE9zCQE p laikw359HoRes5rjEMXujSAiO LgmNDQ8I86tw0J6FONeVIMaHO R4nMO0tT6syGsygxorfOIlhBf g ejKgzHaiXTyzSJgpW552TFUdr VfkZlFavoGeCLOrpWI9FF63FQ 72lDPzs4X5fZR9X9HcQMKsddg t xxqbnUA0QDVkPAWzcS16Mt3ja EkuIi5wKHCnDXY7JEQzxDQiH6 BwzZ5tErUrDRWvDTStU8FyuKX t FWrtS986DMomTbO0MHCmqnGbV 7OrMETtuJomQjM2p6B2Vg5HQ8 E8RZ79CB90hJMvz9J7sPL1X6X h ZHIvgohfxxlpgOH1IAIzRVUnu Q40Uy5xcLreJu4sZBTfSDK2RK YdvPVfO6XvuZ9iJxZhJWCgKQR w Q2RjcVYlQXgaS382FGiwLhE7N FUcnwYfJ4LeZPIpnEhuKpS1k9 T8Re1HPGa0ON13LD16gVDko1Y 5 dRU9G5VtIMLindqcqjuliIC2F QPhJGRrsW16Hu3ujQpoYi1fBF LkNBX8ABDdiEAqI2XoeP2tWyD j TWJmIYJgJ1NteMWoECrwG398L XzkAhT3NTAkiyNjH7KmLBUmsR ihXkE6d6I3Db0YFKXcWR82UNX 5 vSZ2TR29RZ46L3TvEnwlyFWkq +PHRhYmxlIHdpZHRoPScxMD KcSrGlmFbuQU3rKi2qDEJrBPH v mLbzuHQbBjSym3hwYNWdJWhoW L4suGzxT4NxaET0ILOft1x3Eq 92G90xE6IhzBF+MHHalAV5rEP 0 rQ5rIbWiUcT7DXnxD307UjBfu RUyKmqvk8mzk8ubbZs9FzY8RV DnqzCmrVwpVXZ9h2HgNr71Y64 s IHdpZHRoPSIxNSUiIHZhbGlnb d1yeQ3zKn9+MVEmyER0mBA3jG 5aCoOcQzF8FDfhU495FjOsfKU v Ecngd0hot8dtkPu0XnJjOVWxe rAfePfxSXT8t5WzOc57V1NwgR xaj7JgUmp6nt76wZZuw6B9nFI 9 P5UcGHHcboroyRCjvUgoOP2kK FMtvuslZMPkjL9yXWLjK3p7Ny ZdZwE1TOpoM0OpaqY5PWNcdQR g UWbwYPF0S53zg9B7WUMdMSXkI PP9sYV4eS2feJwxgcpukBZnjL majvQkxGijSNlwQUddY125LCV v dLhlSHMadW1xKLOgfZQcvHqtY B6bQKPscoyhSnYDRJCXEX8LRD xMRVIsIEFCQlkgQTwvdGQ+PHR k OVV4lPxtGAmoIVWkwM8cZPMbP 8e2VjIlUdA4ICajR2RgOHQvot snCd41wJ9kRhImMuX3SLioQ5N v gvM0XYVgfIBqSQnjZFD2Z82ku 4E9PCLkRUJcQHY1zDF0pI5voV lnbjogbGVmdDsgdmVydGljYWw t AHsbW344SQUpxAqjLlH8RoX8L qP4HPS1O7AfAnl7DBWgzIjaFI 3gtNDmLIfqYm8fnLbxqVvkWO2 w IVYazdopIRNcsL9bLLYqpMHch NsgXU4cWLOqsxedt418LoSsIL B6SHHsnPUaO1EfbR8fRgSbAHM w AMErL7JsyBFlFHlnB078SChoB wB2KBCnthQvK2TzNILdsGfmOs O9x6E0Cy9wOkCNXHKnmoazpQT + IMUzQRT5zLqbIWghSUFkjN2bD UFzI6c1EkRlCgV6TZwsV8LbIJ QfjavfFq49qI2zTdPrCkZ4CVp u Z2BeoxM9ENMqtUIqZHosXHQ3I 95tn4D1TTUkQJNjCBD4iDM6mN 1hbGlnbjogbGVmdDsgdmVydGl j FNmdCHksE084IXAjcJoqCpUGX UFMRTwvdGQ+NARxHSW0cBxeXB juXCItpY9jDYMzA9v4YeQzWaW 1 UYhfI3SrSGCsxxxgAu28tO6fH vDrDeN0LQsaK2DjiyX7XTImaF YuLGdbMJL3H06ed9P5UMGpGQC w OGS6iVO8yN0fgQhyesebsDZsa UuxsvFqyNnyLAfaYIlkJ037UA IwkVecPb6ZCG42FU66Q4MzUoc v dGFibGU+PHRhYmxlIHdpZHRoP AakRZHoQmAddJvdTZ4yQv2xPZ HyEBUgiGpwzMWcNyIhm9saRXU z VMrsZA4zmKlxM8WxcWA9HUBty 4r6Lq55Y92zR7YkdRD+PGNvbC D0eNK2yQ7cIsKhJiM5ORumW38 9 OmVibJBeSopvl2ubj3wziBf2W pQnNGHaaeQeyZmhRRM5u6DsWk 87L71vMSjwSJZeNSRtAIZkLOR h hJoubh7rvS1tQd7+NBYihMQ2s WG5aX3hHeHiYdZ4ADsaH202To UfeCCfWxryK18uD7AnxBM+PHR y Aaj4HIWgmAorGT9xwUGhOPbhC q1iJGS1ReJrPtFsJTavS9LvHH QxfitjukjukHI5GPEsDXIrxU7 7 By2oxMxaLw0rAYRxJYT0GWGpo SVxE9BtsX6jFyGxGCVfWEHqN7 KepEPeCHnxU354NUiuHkM4PXY l waCbW5VrLXLvjOjlSwM0v8N8H s7DfWhobTSyHK7rMaMpBTi1C9 MrMlp7XQGnaAtgSN5xpWNmUVp u Ih7nkRymjVtpQI1iZZJpukfaf 093TxYwy2srLCLzkANaMDabAL I6R37cy1T4TGUhPPZfRBM6rUI 4 hS2jhZcczvoutZVdwAmhwmQvh ZgwYSqzZLtwL613RAKhvAqeAo ZVJvn6I7JmOsl0KSBfyVjzTF8 n hHHxQFddPu1oyLzvdAdlEC6fK DFwkkiyq316HkJsw5nmQSAxsG HdUWdnJOK4L23ca4T2DHNfMFY w LLG2iNU6hA4hrXkoemichPHmg XejywNwjEtlXYreQIkbT653ZC BpdTqpXz4BFju1Z7MhPcf8CKR z xFwwHZ4doVOhUEncRg9azAiso JyvHA9nYGAntdcpf497YmRuw7 ziCKAnkABmIHhjDXK0I41yk1Y 6 HCNkNDUgSHJ7lRV8gW2iuZbif jogbGVmdDsgdmVydGljYWwtYW reQ535UGDypAdbUnXiwNEtCrq v dGQ+FM05ps09H2NxZozqOnk2G RLiSGX3sVK3kJ0kDCRbTKnyk9 Q6qLV1C4HcbbPaxx3ik1xjDZV z ZTo (more content not included)... [facility] Coding Summary HTMLBase 64 JuothcifBJe3eXp+PGhlYWQ+P V9FNTAjO95dePAgyB2UH7pBEI 1NVLWIGJSHEM7TVA7kiXE0AZv hP2QvifOr WxrrzASeBY62LSf6FEA4oAakI VrlpP7azYMpG6o8LqWfGA77lQ 69FBalYDDjCyI3DtZrlrbneZL y K3ogAgYobENzLdo+PHRhYmxlI HdpZHRoPScxMDAlJyBzdHlsZT 4kLn9xTQEnDAIecMlddSDxJwC j z3kdXXVgTIxwBR0tlWmiI1Qvz RU5LUNfh0k9Nv13sAQ+PHRkIH M4bKamCWano442TuZmf4ksDHF 3 wTCpECtwVXU5G86qa8O8BKKqO XOyPFN4hAQ3xC3peHnwbsocY5 SssWFuCvO6TUM7qTNawH6fxMv n dibekQ6lYhl+U18OUX1TCLVFS Z6PMzm4W4SvZjubhOV+PC90YW DrJK26iHHlyMSxc3krvMw1BuZ w TYAoWFC8lXlsVKvjf7DnKKGcL 80vzZEqr5K2NVKslLuwwVKpFp KjpXB4iR9jVRtmynrik5uvixh n Woqjr2httd43uV94X11wBRyeO PLxXDC4EIChBBAjvYqsru8qlO 9wIi8+NIhue4xim8vpiXe7LiQ w PKPtwaRhaLroYLK0v6MySt32D 3KpcWknn8WzFnr5jr52aPFie6 W5lPD5GHxdZGFovC9hXFheLnK 6 ILTyGnSlyY20nPLtBJaqFb6rz VxjaNpnEI2nPDLunxmtJLPuhN 7nKUZkjLGggNmdXO9bZNBlami m a456EuXbJUI7XVMwyPIhF2Ivp S2mAgEfERQnUZUkV0HisXOrEH ukM186EAlcXaL3ZAZxfuFnW0S s EHVhrHyoWoA3n4Q4Ml3Uv2Gix bayFJS3QDdoHJReZpZaEcCdXu W2M2IpCit9JDLvsXohIE1cF3J h ZIVxxyzfduehzNW2IJJzHRNuc C66gJLpOImgQw7vl2P3g848PZ RrVBFqoO68Lx4giQoqUWOgjVS U pA4escgwo2mwsdtaCnRvSVHqH Oh9XXf8MHGmxZlxSjGxEIA0Gd W5RKQ1cMOlaG3nkNrpqiucrA8 w Oyc+R49llT5oDEP2ZZG1kqruA XKvpkVrQI64DZ76C2SsYrjruT FibGU+TBPkkdXvsLmgIW9uLzN j f9ewy5PtNFqnK0UcWAGhRGfxK rs5TEHyWKT1gUB9xW7yXEZcTW dtg5N1jYI7M4JdsqYmsb0xl9d s TGUkEEjzE78knWUlg7S8FVWtc IM4XDYqnWwiTiGjeW41Dxp+PG SwnUkby0BzCrjbm1qob3itqZz 9 IpLsPYEfoyEarVeiIIU3h6ViT g56L53sZRjkEGKaAMWsXIMsOP YtbMtmru6diW9iMg0+PGNvbCB 3 aBN7yU6aWKCzIpL7GHvnJ674V vShkEAlRmdyz7cut6wdqGv5Sd AoZZMstnLnnXvrIEV7z7KzRx2 8 D76nMSdoHFNpJEGgPOXlKTRgf Rarmk3lrC2nIj2+YU9fp2qxku 22lE66cTE+THEwTLG0bOrpRJx w HTGhcV0lFCwhYmT1VDThIlOgy U95nMAbLAfzLr6hjDjmhFagPZ 8tDCTookzih639GmKgn1usBJK w pWBoRQfmKKZ2R88ht4R5ZQXtT IBuWPA1sVA7wB3wsDsfippmmC AicNdwjfBymXgqMQunNKvbN98 6 IHRvcDsnPlBhdGllbnQgTmFtZ Yc5W6MwHav0WLVwsFqjCA1ihO XvHLwoTh8ogVaofEsoAS1oSVF p pilxs861VsBjt5qqMBZugMSuI YiyQMR1K47dx2S7TJIvTMAdXH V0zJE0xG0ygGyrfnhjjDGrmBz g vgDqvBonLBlxRKqqE228IHLpc ObmXiTehqZoOHSxwGR8VC80UR 23jJZty4O9aPJ3D5FpTVBpbro t bdjnsSD4YDFaNNBmfG88Vw4gh ZhmFr4hRUUlHUI6FPQdfUDsG0 IiuE8vGyFeLOFuTWVuQ9IeaFR t ETfoY986YIdfLtO7UDRbkfMpV 7SeKHIyoBfcRdY3s3I9Hm4VC2 U3WZ83HZ44aIMwr1B6eOY5A2V h ISVbiwmwdjnxmWT1RWFyEXRdu I13Pd6yzHugJv9jREDaLRA7VJ QiiQElJ0GsvQ9qRcWdURKxNZC w A1FctABpUZpqH186LCjfRkL1H UHcqgGaA7XyNHCipQqlLzE6f0 F4Vf8FGUg9KJ04NU68cDXrc4W 5 nQU8H1HvYVXuyuodvabhrYU1M SGlEEYcpG62Kx1wjLyqWc5fLH OhLLE7YZBhwLJmT9SmfE5vBjA j HYGuNHHyS1RheXQqNMwuG731A EktZnH7CFHjixTbX9HbDELquS otUkC5b5G1Hx5JVSNpGN41DQE 5 nLN0BI54TS76U5RtUpnmhYJzk +PHRhYmxlIHdpZHRoPScxMD EqKkBnfSxiNU8yFn3gRDLwFXD v iWdbcNOkGlUpj2zjHOXtDRvtE H4jgQkmC9XxqIY8ZADgk9d0Vg 38Y93tH7JmbJD+MNRroAR8dAB 0 hP5sZhKxGfS8DTvlA822KpWqf ZVtUwnib6tii4olxPo2ElB5BI LxuhRwrSmqWMA7c8SlTb16E58 s IHdpZHRoPSIxNSUiIHZhbGlnb v5ctN6nJv4+EDQwiLU4gYW9yI 5eZzDtCrF5RJrqA360XmRbhPK v Xsgtb7lwg2vidDn9EuUfSQDck dYieQdfTVI5p2LtKa43D3ZvoL ekf2EzQod6tm62jZLaa9L0eMJ 9 M4TkHTQuzbpzaXOraRufGU1pC TQuvwedRUSurI2mEZBdH8f2Vi MhDhR7GAciE7CnsnI2RJGlbHL g GWkeDKI7J48bf5W3IPHpTGTgK JN2qLW2yR5vsTfascvwcRErhE zpybOanLbeJSpdDPcdK662JVS v zJzpKJAwzR1kSWVdjKJcqJytW Q0xCFSdhprhGhKSUXRJFD3DYD xMRVIsIEFCQlkgQTwvdGQ+PHR k AAG8nJqzVAydLWUxkH0iYOOoY 4x4XfEsGoI4IOwrF5PqORUvxm zyNe72jQ2gFwDlQsJ2UVahH7Y v quK9MDNotKZpBLvlLFC5C45lv 6D5VIRbHBThJLO9uDR1rX7wqJ lnbjogbGVmdDsgdmVydGljYWw t KXmhW725URIrpNorMcB3BiV7V lY3TIK2F3OiJct8VBTwkUdlFZ 9enSJjNIbuRx5cuIgpuYkaOE2 w UPLzcplfHYXfgE3nZIKipEUxq OnbPJ1zFECttmdzk535PoGkVM A0TKWgeUJyS5SkfD9rYtUyVIZ w KFEaU6FplKFwERvqT109GPzfV aN6QECrjgHhD2ZnGHEnaBbvXp W5l4B1Tz9uAeCYMLYggqvtnAN + OJIkASQ7dKdkKFxuETGhfF9pT CFhI4r2JwSwAbJ8OYuoX2ToPG QrxdywJp85dJ5pIeYqYeP4QQf u B9SzufG7HRHbwNNlQAqeOKW4M 12pk2K3VOHsAAFhGHY6sQG7mY 1hbGlnbjogbGVmdDsgdmVydGl j UAzcZJdoK109AFFflOppAtLJE UFMRTwvdGQ+LSRzBLM3oIpbXX czSMZkaN8lOLLeZ1z5VlYwTyH 1 KHtuC2CqAHHaewcoBh33gM3rK aYlOkM3XIfrF9FnlsW0GQHdkF CmNOvkMUN7I30mn4X1ZJYlSPJ w TKY9sWN6dB9gqAjvoobfhJPsj WeaxuCncPfxZVtxEQrkB481HV YlkWvsEiWwPAIbVP9soIatiKA + KU69uc06O3HdOuedMxi2FTEzY MH3cPC3sU3oIEQwQAian0X5zI I2M4OideBesj1mb9wzPPIkVBl g F68bsYNmw8Q8BMRcbRE8YNGiy IezAfKcjV04Wmf+PGNvbGdyb3 SdDuyzp8dob3amqPf4WeSoMIJ g puSljYbdGHR6c9NcZn02T71xM HdpZHRoPSIzMCUiIHZhbGlnbj 7lzU9aUt4+SGLmeNQ7gXA9qS6 i TjMuVlZ1HNkiL394WtIqtYMtR aazl1ygn5qauYe3NtXaVXVoyc FwwHrsIYE7o7NeFg52Z3CgmAs y o2PgMek7ao43hJRrv9B7oBX0G 6PyGDDdcwyeuWLyaNvhJX2uHW PtarnwTTLvcI1sNKBcO8c0PxG w MeT9BNczB2DyetV6IXBddHOkV AVwmTPUxN7kkzmjr8vtnndeGf KmDNBqEAs4AKb2TGPtcJolUjF s NXI1DnE2SZQ9rVVicE7yuDrbn tcmvK7yKxt+QRk7d2kcjUZgTI 7jfPU6CE78XN14gLLrb3Z3sPN 9 U0JxFNTaasemsjyehCL7RKEwG OGffN64Xj6ddDmgTj8zVIMfAL J2FZCexSYzO7WybN3kMwEzXHT w YRUwG9KsyFMhVEiaV249CDtfF vX3MKPyszZuE5YkWRBwmQnaUq Y1r8W4Cr4NBK49LC07MX89qGI g o5J9lSE4I7AhKJTaogzbiqugx PX0CBVjHEOxwU44Lh6mlFhzOu 3bCGDoONE8JOXfzJVfW2NssY4 y DpVhKFTtIYPsP6RzcXUgGStlN 152CIbyOnA1DFSuqsSxG6BbMK GoxPtsIjS2e9T3Ym2LLp83XR1 0 ON76eCRwx7Q4sJD4X8MxZUMwz lkzilthxZK1JIRdIHMovL87Tk 5cpOhjGb3lZWUdWBI6YTJoiTX z O1ObfU0fMmUrMGSjBBPlO5Hwo GKiTHscN731UGrgAtW8RWBucb IbR3WmQUSxcXuxKtQ8h8Z0Zf5 Q RPkptiu2G6XrIlqtqBM+PC90Y TVdIZ02uLWgqFBhh1omlFj6Kf AnBOSbVTR1yAgiUOzgy0NwMDE t Y29 (more content not included)... Normal [facility] CNPNon 03-06-2022 CNPN Normal [facility] Urine culture routineOrdered By: Nico Wheeler on 03-01-2022 Bacteria identified Cx Nom (U) 2 Days [facility] Albumin [Mass/volume] in Ser um or PlasmaOrdered By: Nico Wheeler on 02-27-2022 Albumin [Mass/Vol] 3.8 g/dL 3.2-5.5 [facility] Automated erythrocytes count in urine sediment (number/area)Ordered By: Nico Wheeler on 02-27-2022 RBC Auto (Urine sed) [#/Area] Innumerable [HPF] 0-4 [facility] Automated leukocytes count i n urine sediment (number/area)Ordered By: Nico Wheeler on 02-27-2022 WBC Auto (Urine sed) [#/Area] 5-9 [HPF] 0-4 [facility] Basophils Auto (Bld) [#/Vol] Ordered By: Nico Wheeler on 02-27-2022 Basophils (Bld) [#/Vol] 0.1 10*3/uL 0.0-0.2 [facility] Basophils/100 WBC Auto (Bld) Ordered By: Nico Wheeler on 02-27-2022 Basophils/100 WBC (Bld) 1.5 % . [facility] Bilirubin Test strip Ql (U)O rdered By: Nico Wheeler on 02-27-2022 Bilirubin Ql (U) Negative Negative [facility] Blood hemoglobin measurement (mass/volume)Ordered By: Nico Wheeler on 02-27-2022 Hemoglobin (Bld) [Mass/Vol] 8.6 g/dL 11.8-15.4 [facility] Blood leukocytes automated c ount (number/volume)Ordered By: Nico Wheeler on 02-27-2022 WBC (Bld) [#/Vol] 8.6 10*3/uL 4.5-11.0 [facility] Color Auto (U)Ordered By: Gabrielle Wheeler on 02-27-2022 Color (U) Red Yellow [facility] Creatinine and Glomerular fi ltration rate.predicted panel (S/P/Bld)Ordered By: Nico Wheeler on 02-27-2022 Creatinine [Mass/Vol] 1.73 mg/dL 0.44-1.[address] [facility] Eosinophils Auto (Bld) [#/Vo l]Ordered By: Nico Wheeler on 02-27-2022 Eosinophils (Bld) [#/Vol] 0.1 10*3/uL 0.0-0.45 [facility] Eosinophils/100 WBC Auto (Bl d)Ordered By: Nico Wheeler on 02-27-2022 Eosinophils/100 WBC (Bld) 0.6 % . [facility] Erythrocyte distribution wid th Auto (RBC) [Ratio]Ordered By: Nico Wheeler on 02-27-2022 Erythrocyte distribution width (RBC) [Ratio] 17.3 % 11.9-15.3 [facility] Estimated glomerular filtrat ion rate (GFR) non- AmericanOrdered By: Nico Wheeler on 02-27-2022 GFR/1.73 sq M.predicted among non-blacks MDRD (S/P/Bld) [Vol rate/Area] 33 mL/Min [facility] Globulin Calc (S) [Mass/Vol] Ordered By: Nico Wheeler on 02-27-2022 Globulin (S) [Mass/Vol] 3.7 g/dL [facility] HCG ( test) IA.rapi d Ql (U)Ordered By: Nico Wheeler on 02-27-2022 HCG ( test) Ql (U) Negative [facility] Hematocrit Auto (Bld) [Volum e fraction]Ordered By: Nico Wheeler on 02-27-2022 Hematocrit (Bld) [Volume fraction] 27.3 % 34.0-46.4 [facility] Ketones Auto test strip (U) [Mass/Vol]Ordered By: Nico Wheeler on 02-27-2022 Ketones (U) [Mass/Vol] Negative [facility] and C hemistry - challengeOrdered By: Nico Wheeler on 02-27-2022 Lipase [Catalytic activity/Vol] 16.0 U/L 22-51 [facility] - Hematology and Cell countsOrdered By: Nico Wheeler on 02-27-2022 Nucleated RBC/100 WBC (Bld) [Ratio] 0.1 % 0-0.5 [facility] - UrinalysisOrder ed By: Nico Wheeler on 02-27-2022 Hyaline casts LM Ql (Urine sed) None seen [LPF] 0-8 [facility] Lymphocytes Auto (Bld) [#/Vo l]Ordered By: Nico Wheeler on 02-27-2022 Lymphocytes (Bld) [#/Vol] 3.6 10*3/uL 1.00-4.8 [facility] Lymphocytes/100 WBC Auto (Bl d)Ordered By: Nico Wheeler on 02-27-2022 Lymphocytes/100 WBC (Bld) 42.3 % . [facility] MCH Auto (RBC) [Entitic mass ]Ordered By: Nico Wheeler on 02-27-2022 MCH (RBC) [Entitic mass] 26.9 pg 24.7-34.3 [facility] MCHC Auto (RBC) [Mass/Vol]Or dered By: Nico Wheeler on 02-27-2022 MCHC (RBC) [Mass/Vol] 31.6 g/dL 32.0-35.[address] [facility] MCV Auto (RBC) [Entitic vol] Ordered By: Nico Wheeler on 02-27-2022 MCV (RBC) [Entitic vol] 85.1 fL 80-100 [facility] Monocytes Auto (Bld) [#/Vol] Ordered By: Nico Wheeler on 02-27-2022 Monocytes (Bld) [#/Vol] 0.6 10*3/uL 0.0-0.8 [facility] Monocytes/100 WBC Auto (Bld) Ordered By: Nico Wheeler on 02-27-2022 Monocytes/100 WBC (Bld) 6.4 % . [facility] Neutrophils Auto (Bld) [#/Vo l]Ordered By: Nico Wheeler on 02-27-2022 Neutrophils (Bld) [#/Vol] 4.2 10*3/uL 1.8-7.7 [facility] Neutrophils/100 WBC Auto (Bl d)Ordered By: Nico Wheeler on 02-27-2022 Neutrophils/100 WBC (Bld) 49.2 % . [facility] Nitrite Test strip Ql (U)Ord ered By: Nico Wheeler on 02-27-2022 Nitrite Ql (U) Negative Negative [facility] No Panel InformationOrdered By: Nico Wheeler on 02-27-2022 Estimated GFR () 40 mL/Min [facility] Comment on above: GFR estimated refere nce range: According to KDOQI guidelines, <60 ml/min/1.73m2 is sufficient to diagnose a patient with chronic kidney disease. Pharmacy Creatinine Clearance (Chem 45.35 [facility] Platelet mean volume Auto (B ld) [Entitic vol]Ordered By: Nico Wheeler on 02-27-2022 Platelet mean volume (Bld) [Entitic vol] 8.4 fL 6.3-10.7 [facility] Platelets Auto (Bld) [#/Vol] Ordered By: Nico Wheeler on 02-27-2022 Platelets (Bld) [#/Vol] 487 10*3/uL 150-450 [facility] Protein Auto test strip (U) [Mass/Vol]Ordered By: Nico Wheeler on 02-27-2022 Protein (U) [Mass/Vol] Negative Negative [facility] [Mass/volume] in Ser um or PlasmaOrdered By: Nico Wheeler on 02-27-2022 Protein [Mass/Vol] 7.5 g/dL 6.1-7.9 [facility] RBC Auto (Bld) [#/Vol]Ordere d By: Nico Wheeler on 02-27-2022 RBC (Bld) [#/Vol] 3.20 10*6/uL 3.60-5.00 [facility] Serum or plasma alanine tate otransferase measurement without P-5'-P (enzymatic activiOrdered By: Nico Wheeler on 02-27-2022 ALT No additional P-5'-P [Catalytic activity/Vol] 50 U/L 10-60 [facility] Serum or plasma albumin/glob ulin mass ratioOrdered By: Nico Wheeler on 02-27-2022 Albumin/Globulin [Mass ratio] 1.0 {ratio} [facility] Serum or plasma alkaline harish sphatase measurement (enzymatic activity/volume)Ordered By: Nico Wheeler on 02-27-2022 ALP [Catalytic activity/Vol] 205 U/L 32-92 [facility] Serum or plasma amylase amber urement (enzymatic activity/volume)Ordered By: Nico Wheeler on 02-27-2022 Amylase [Catalytic activity/Vol] 41 U/L 28-100 [facility] Serum or plasma anion gap de terminationOrdered By: Nico Wheeler on 02-27-2022 Anion gap [Moles/Vol] 13.7 mmol/L 6.0-15.0 [facility] Serum or plasma aspartate am inotransferase measurement (enzymatic activity/volume)Ordered By: Nico Wheeler on 02-27-2022 AST [Catalytic activity/Vol] 54 U/L 10-42 [facility] Serum or plasma calcium amber urement (mass/volume)Ordered By: Nico Wheeler on 02-27-2022 Calcium [Mass/Vol] 9.4 mg/dL 8.2-10.2 [facility] Serum or plasma chloride franco surement (moles/volume)Ordered By: Nico Wheeler on 02-27-2022 Chloride [Moles/Vol] 101 mmol/L 95-114 [facility] Serum or plasma glucose amber urement (mass/volume)Ordered By: Nico Wheeler on 02-27-2022 Glucose [Mass/Vol] 221 mg/dL 70-100 [facility] Comment on above: ADA recommended refe rence range Random Glucose Reference Range is dependent on time and content of last meal. Glucose of more than 200 mg/dL in a nonstressed, ambulatory subject supports the diagnosis of Diabetes Mellitus. ADA recommended refe rence rangeRandom Glucose Reference Range is dependent on time and content of last meal. Glucose of more than 200 mg/dL in a nonstressed, ambulatory subject supports the diagnosis of Diabetes Mellitus. Serum or plasma potassium me asurement (moles/volume)Ordered By: Nico Wheeler on 02-27-2022 Potassium [Moles/Vol] 4.8 mmol/L 3.5-5.[address] [facility] Serum or plasma sodium measu rement (moles/volume)Ordered By: Nico Wheeler on 02-27-2022 Sodium [Moles/Vol] 134 mmol/L 136-146 [facility] Serum or plasma total biliru bin measurement (mass/volume)Ordered By: Nico Wheeler on 02-27-2022 Bilirubin [Mass/Vol] 0.3 mg/dL 0.3-1.2 [facility] Serum or plasma total carbon dioxide measurement (moles/volume)Ordered By: Nico Wheeler on 02-27-2022 CO2 [Moles/Vol] 24.1 mmol/L 22.0-30.0 [facility] Serum or plasma urea nitroge n measurement (mass/volume)Ordered By: Nico Wheeler on 02-27-2022 Urea nitrogen [Mass/Vol] 21 mg/dL 02-27 [facility] Specific gravity Auto test s trip (U) [Rel density]Ordered By: Nico Wheeler on 02-27-2022 Specific gravity (U) [Rel density] 1.008 1.001-1.03 0 [facility] Squamous epithelial cells de tection in urine sediment by light microscopyOrdered By: Nico Wheeler on 02-27-2022 Epithelial cells.squamous LM Ql (Urine sed) 1-2 [HPF] 0-2 [facility] Urine bacteria detection by automated methodOrdered By: Nico Wheeler on 02-27-2022 Bacteria Auto Ql (U) None seen None Seen [facility] Urine clarity by refractomet ry automatedOrdered By: Nico Wheeler on 02-27-2022 Clarity Refractometry automated (U) Clear Clear [facility] Urine glucose measurement by automated test strip (mass/volume)Ordered By: Nico Wheeler on 02-27-2022 Glucose Auto test strip (U) [Mass/Vol] 100 mg/dL Normal [facility] Urine hemoglobin detection b y automated test stripOrdered By: Nico Wheeler on 02-27-2022 Hemoglobin Auto test strip Ql (U) 3+ Negative [facility] Urine leukocyte esterase det ection by automated test stripOrdered By: Nico Wheeler on 02-27-2022 Leukocyte esterase Auto test strip Ql (U) 1+ Negative [facility] Urobilinogen Auto test strip (U) [Mass/Vol]Ordered By: Nico Wheeler on 02-27-2022 Urobilinogen (U) [Mass/Vol] Normal mg/dL Normal [facility] pH Auto test strip (U)Ordere d By: Nico Wheeler on 02-27-2022 pH (U) 5.0 [pH] 5.0-9.0 [facility] CBC AUTO DIFFon 02-24-2022 BASO # 0.1 103/ul Normal 0.0-0.1 [facility] Comment on above: Performed By: #### P RBC #### [facility] [address] [place] [address] Dr. Laila Feliciano Basophils/100 WBC (Bld) 0.4 % Normal 0.2-2.0 [facility] Comment on above: Performed By: #### P RBC #### [facility] [address] [place] [address] Dr. Laila Feliciano EO # 0.0 103/ul Normal 0.0-0.7 [facility] Comment on above: Performed By: #### P RBC #### [facility] [address] [place] [address] Dr. Laila Feliciano Eosinophils/100 WBC (Bld) 0.1 % Critically low 0.9-7.0 [facility] Comment on above: Performed By: #### P RBC #### [facility] [address] [place] [address] Dr. Laila Feliciano Erythrocyte distribution width (RBC) [Ratio] 16.6 % Critically high 11.0-15.0 [facility] Comment on above: Performed By: #### P RBC #### [facility] [address] [place] [address] Dr. Laila Feliciano Hematocrit (Bld) [Volume fraction] 27.2 % Critically low 36.0-48.0 [facility] Comment on above: Performed By: #### P RBC #### [facility] [address] [address] [address] Laila Feliciano Hemoglobin (Bld) [Mass/Vol] 8.2 g/dL Critically low 12.0-16.0 [facility] Comment on above: Performed By: #### P RBC #### [facility] [address] [address] [address] Laila Feliciano IG # 0.06 10e3/ul Critically high 0.00-0.03 [facility] Comment on above: Performed By: #### P RBC #### [facility] [address] [place] [address] Dr. Laila Feliciano IG % 0.5 % Normal 0.0-0.5 [facility] Comment on above: Performed By: #### P RBC #### [facility] [address] [address] [address] Laila Feliciano LYMPH # 2.5 103/ul Normal 1.2-3.8 [facility] Comment on above: Performed By: #### P RBC #### [facility] [address] [place] [address] Dr. Laila Feliciano Lymphocytes/100 WBC (Bld) 21.9 % Normal 20.5-60.0 [facility] Comment on above: Performed By: #### P RBC #### [facility] [address] [address] [address] Laila Feliciano MANUAL DIFF REQ NO Normal [facility] Comment on above: Performed By: #### P RBC #### [facility] [address] [address] [address] Laila Feliciano MCH (RBC) [Entitic mass] 26.8 pg Normal 26.7-34.0 [facility] Comment on above: Performed By: #### P RBC #### [facility] [address] [place] [address] Dr. Laila Feliciano MCHC (RBC) [Mass/Vol] 30.1 g/dL Normal 29.9-35.2 [facility] Comment on above: Performed By: #### P RBC #### [facility] [address] [place] [address] Dr. Laila Feliciano MCV (RBC) [Entitic vol] 88.9 fL Normal 81.0-99.0 [facility] Comment on above: Performed By: #### P RBC #### [facility] [address] [place] [address] Dr. Laila Feliciano MONO # 1.2 103/ul Critically high 0.3-0.[address] [facility] Comment on above: Performed By: #### P RBC #### [facility] [address] [place] [address] Dr. Laila Feliciano Monocytes/100 WBC (Bld) 10.1 % Normal 1.7-12.0 [facility] Comment on above: Performed By: #### P RBC #### [facility] [address] [place] [address] Dr. Laila Feliciano NEUT # 7.8 103/ul Critically high 1.4-6.[address] [facility] Comment on above: Performed By: #### P RBC #### [facility] [address] [place] [address] Dr. Laila Feliciano Neutrophils/100 WBC (Bld) 67.0 % Normal 43.0-75.0 [facility] Comment on above: Performed By: #### P RBC #### [facility] [address] [place] [address] Dr. Laila Feliciano Platelet mean volume (Bld) [Entitic vol] 9.8 fL Normal 9.5-13.5 [facility] Comment on above: Performed By: #### P RBC #### [facility] [address] [place] [address] Dr. Laila Feliciano PLT 510 103/ul Critically high 150-450 [facility] [place] Comment on above: Performed By: #### P RBC #### [facility] [address] [place] [address] Dr. Laila Feliciano RBC 3.06 106/ul Critically low 4.20-5.40 [facility] [place] Comment on above: Performed By: #### P RBC #### [facility] [address] [place], [place] [address] Dr. Laila Feliciano WBC 11.6 103/ul Critically high 4.0-11.[address] [facility] Comment on above: Performed By: #### P RBC #### [facility] [address] [place], [place] [address] Dr. Laila Feliciano CRPon 02-24-2022 CRP [Mass/Vol] mg/L Normal <=1.0 [facility] Comment on above: Performed By: #### T NS #### [facility] [address] [place], [place] [address] ABD/PELVIS WO CONon 02-24 CT ABD/PELVIS WO CON EXAM: CT ABD/PELVIS WO CON 02/24/2022 4:22 AM EDT OH001 CLINICAL STATEMENT: GENERALIZED ABDOMINAL PAIN COMPARISON: July 23, 2021 TECHNIQUE: Helically acquired images were obtained of the abdomen and pelvis without IV contrast. No oral contrast was administered. AEC is utilized. 2-D reconstructed images are provided. FINDINGS: Distal pancreatectomy and splenectomy with splenule. Cholecystectomy. There are no radiopaque renal or ureteric calculi. There is no hydronephrosis or hydroureter. The upper abdominal solid organs are unremarkable. Distended large bowel suggesting megacolon. Rectosigmoid mucosal thickening suggesting infectious and/or inflammatory proctitis. Perirectal increased fecal fat stranding. There is no bowel obstruction or free air. There is no ascites. There is no evidence of aortic aneurysm. There is no retroperitoneal adenopathy. There is no appendicitis or diverticulitis. There are no pelvic masses or loculated fluid collections. IUD placed in place. The lung bases are clear. There are no destructive bone lesions identified. IMPRESSION: Distended large bowel suggesting megacolon. Rectosigmoid mucosal thickening suggesting infectious and/or inflammatory proctitis. Perirectal increased fecal fat stranding. FOLLOW-UP: Follow-up as clinically indicated. Electronically authenticated by: ARVIN RAMAN Date: 2022-02-24 05:04 Normal [facility] ER URINE PROFILEon 2 Bilirubin Ql (U) Negative Normal NEGATIVE [facility] Comment on above: Performed By: #### P RBC #### [facility] [address] [address] [address] Laila Feliciano Clarity (U) CLEAR Normal CLEAR [facility] Comment on above: Performed By: #### P RBC #### [facility] [address] [address] [address] Laila Feliciano Color (U) LT. YELLOW Normal YELLOW [facility] Comment on above: Performed By: #### P RBC #### [facility] [address] [address] [address] Laila Feliciano ERUAHHerberth A micrscopic examina tion will be performed if indicated. Normal [facility] Comment on above: Performed By: #### P RBC #### [facility] [address] [place] [address] Dr. Laila Feliciano Glucose Ql (U) Negative Normal NEGATIVE [facility] Comment on above: Performed By: #### P RBC #### [facility] [address] [address] [address] Laila Feliciano Hemoglobin Ql (U) Negative Normal NEGATIVE [facility] Comment on above: Performed By: #### P RBC #### [facility] [address] [address] [address] Laila Feliciano Ketones Ql (U) Negative Normal NEGATIVE [facility] Comment on above: Performed By: #### P RBC #### [facility] [address] [address] [address] Laila Feliciano LEUKOCYTES Negative Normal NEGATIVE [facility] Comment on above: Performed By: #### P RBC #### [facility] [address] [address] [address] Laila Feliciano Nitrite Ql (U) Negative Normal NEGATIVE [facility] Comment on above: Performed By: #### P RBC #### [facility] [address] [place] [address] Dr. Laila Feliciano pH (U) 5.5 [pH] Normal 5-9 [facility] Comment on above: Performed By: #### P RBC #### [facility] [address] [place] [address] Dr. Laila Feliciano SPEC GRAVITY 1.010 Normal 1.005-<=1. 025 [facility] Comment on above: Performed By: #### P RBC #### [facility] [address] [place] [address] Dr. Laila Feliciano UA PROTEIN Negative Normal NEGATIVE/ TRACE [facility] Comment on above: Performed By: #### P RBC #### [facility] [address] [address] [address] Laila Feliciano UR MICRO IND NOT INDICATED Normal [facility] [place] Comment on above: Performed By: #### P RBC #### [facility] [address] [place] [address] Dr. Laila Feliciano Urobilinogen Qn (U) 0.2 {Edgar'U}/dL Normal 0.2 - 1. 0 [facility] Comment on above: Performed By: #### P RBC #### [facility] [address] [place] [address] Dr. Laila Feliciano PROF CHEM 8 (BAS METB)on Anion gap [Moles/Vol] 13.0 mmol/L Normal [facility] Comment on above: Performed By: #### T NS #### [facility] [address] [place] [address] Dr. Laila Feliciano Calcium [Mass/Vol] 8.5 mg/dL Normal 8.5-10.1 [facility] Comment on above: Performed By: #### T NS #### [facility] [address] [place] [address] Dr. Laila Feliciano Chloride [Moles/Vol] 107 mmol/L Normal 98-107 [facility] Comment on above: Performed By: #### T NS #### [facility] [address] [place] [address] Dr. Laila Feliciano CO2 [Moles/Vol] 23.6 mmol/L Normal 21.0-32.[address] [facility] Comment on above: Performed By: #### T NS #### [facility] [address] [place], [place] [id number] Dr. Laila Feliciano Creatinine [Mass/Vol] 2.01 mg/dL Critically high 0.55-1.02 [facility] Comment on above: Performed By: #### T NS #### [facility] [address] [place] [address] Dr. Laila Feliciano EGFR-AF PAKISTANI 34 mL/min/1.73m2 Critically low >=60 [facility] Comment on above: Performed By: #### T NS #### [facility] [address] [address] [address] Laila Feliciano EGFR-NON AF PAKISTANI 28 mL/min/1.73m2 Critically low >=60 [facility] Comment on above: Performed By: #### T NS #### [facility] [address] [place] [address] Dr. Laila Feliciano Glucose [Mass/Vol] 126 mg/dL Critically high 74-106 [facility] Comment on above: Performed By: #### T NS #### [facility] [address] [place] [address] Dr. Laila Feliciano Potassium [Moles/Vol] 4.6 mmol/L Normal 3.5-5.1 [facility] Comment on above: Performed By: #### T NS #### [facility] [address] [place] [address] Dr. Laila Feliciano Sodium [Moles/Vol] 139 mmol/L Normal 136-145 [facility] Comment on above: Performed By: #### T NS #### [facility] [address] [address] [address] Laila Feliciano Urea nitrogen [Mass/Vol] 28.0 mg/dL Critically high 7.0-18.0 [facility] Comment on above: Performed By: #### T NS #### [facility] [address] [place] [address] Dr. Laila Feliciano Urea nitrogen/Creatinine [Mass ratio] 13.9 mg/mg Normal [facility] Comment on above: Performed By: #### T NS #### [facility] [address] [address] [address] Laila Feliciano SED RATE [facility] 2021 SED RATE 31 mm/hr Critically high <=20 [facility] [place] Comment on above: Performed By: #### P RBC #### [facility] [address] [address] [address] Laila Feliciano ED Clinical Summaryon 2021 ED Clinical Summary [facility] Emergency Department [address] [place] [address] ED Clinical Summary PERSON INFORMATION Name: PRITESH RAZA Age: 37 Years Sex: FEMALE : 1985 MRN: Acct#: Visit Reason: Abdominal pain; Rectal pain; Rectal pain; Abdominal pain; RECTAL PAIN, ABD PAIN Arrival: 02/22/2022 12:04:00 Discharge: 02/22/2022 14:40:00 LOS: 000 02:36 Check In: 02/22/2022 12:04:00 Checkout:02/22/2022 14:40:00 Address: [address] [place] [id number] PCP: Provider, Unlisted PROVIDER INFORMATION Provider Role Assigned Unassigned Ender Lee MD ED Provider 02/22/2022 12:15:50 Helder RNJudy ED Nurse 02/22/2022 12:20:54 VITALS INFORMATION Vital Sign Triage Latest Temperature Tympanic Temperature Temporal Artery Pulse Rate 95 bpm 95 bpm O2 Sat 100 % 100 % Respiratory Rate 18 br/min 18 br/min Blood Pressure /92 mmHg /92 mmHg MEDICAL INFORMATION Medications Given: Medication Dose Route HYDROmorphone (Dilaudid) 1 mg IM prochlorperazine 10 mg IM Allergy Information: penicillins; Reglan; Demerol; Duricef; Flagyl; Bentyl; Macrobid; Toradol; Cipro; vancomycin; erythromycin PHYSICIAN DOCUMENTATION DISCHARGE INFORMATION: Discharge Disposition: Home Discharge Location: Home PATIENT EDUCATION INFORMATION Instructions: Rectal Prolapse, Adult; Nausea, Adult, [id number] Follow-Up: With: Address: When: Follow up with specialist Within 1 to 2 days Comments: Reviewed discharge care instruction. Continue with therapy as outlined by Dr. Lee. Continue to observe for any change in symptoms. Contact your PCP and specialist for follow-up. Return to ER for any worsening symptoms especially any symptom that concerns you. You were found to have an elevated blood pressure reading in the emergency department. It is unclear if your reading today is because that you were seen in the emergency department with increased level of concerns or that your blood pressure is elevated and not adequately under control. You should check your blood pressure routinely, daily. Contact your primary care provider if your blood pressure reading is consistently elevated. DIAGNOSIS: Elevated blood pressure reading; Nausea; Rectal or anal pain Patient Understands: Yes - Patient/family/caregiver verbalizes understanding of instructions given Comment: [facility] [place] ED Note - Physicianon 2021 ED Note - Physician Patient: PRITESH SANCHEZ Age: 37 years Sex: FEMALE : 1985 Associated Diagnoses: Elevated blood pressure reading; Nausea; Rectal or anal pain Author: Ender Lee MD Basic Information Time seen: Date & time 02/22/2022 12:52:00. History source: Patient. Arrival mode: Private vehicle. History limitation: None. History of Present Illness The patient presents with rectal pain. The onset was Thr and [place] [facility] [place] 37-year-old female presented to ER for complaint of rectal pain and lower rectosigmoid region abdominal pain. Patient stated that she had prior history of Whipple procedure. She stated that she also has a history of rectal prolapse. She stated that the occurrence was sometime in September. She stated that because of the prolapse was extended, and there was tissue damage, she subsequently had partial resection and reconnection. She stated that she still having problems. She stated that she had seen specialist at [facility]. She stated that she is due to follow-up sometime in a few months. She stated that there was plan for revision and such. She stated that she had some difficulty with bowel movement, and had a another prolapse, several days ago. She states that incident occurred on , and had gone to [facility] on Wednesday. She stated that she did had reduced. She stated that since then, she has persistent rectal pain as well pain into the lower abdominal area. She stated that she has been nauseous. She stated that the nausea is constant. She stated that she had been prescribed Phenergan intravenously as well as Zofran intravenously and oral form. She stated that she has a port in place. She stated that she is able to access her port at home, and provide her own IV medication. She stated that she has been throwing up so subsequently she has not been able to take her oral pain medication Dilaudid at home. She stated that she had given herself a dose of Zofran and Phenergan this morning. She stated that there is persistent pain now, at the rectum, and anus as well as the lower abdominal area. She expressed concern regarding the above symptoms and presented to ER for further evaluation. He is afraid to take oral pain medication as she stated that she just had resulting emesis after she tries No fevers or chills. No urinary symptoms. She is diabetic. She has an insulin pump. She stated that her blood sugar presently is 140 based on her meter reading Review of Systems Constitutional symptoms: No fever, no chills. Skin symptoms: No rash, Eye symptoms: Vision unchanged. ENMT symptoms: Negative except as documented in HPI. Respiratory symptoms: Negative except as documented in HPI. Cardiovascular symptoms: Negative except as documented in HPI. Gastrointestinal symptoms: Abdominal pain, nausea, vomiting, rectal pain, no diarrhea, no rectal bleeding. Genitourinary symptoms: No dysuria, Health Status Allergies: Allergic Reactions (Selected) Unknown Bentyl- No reactions were documented. Cipro- No reactions were documented. Demerol- No reactions were documented. Duricef- No reactions were documented. Erythromycin- No reactions were documented. Flagyl- No reactions were documented. Macrobid- No reactions were documented. Penicillins- No reactions were documented. Reglan- No reactions were documented. Toradol- No reactions were documented. Vancomycin- No reactions were documented.. Medications: (Selected) Documented Medications Documented ACCU-CHEK GUIDE GUIDE GELY: See instructions, 0 Refill(s) ALPRAZolam 1 mg oral tablet: 1 mg = 1 tab(s), PO, BID, 0 Refill(s) Anucort-HC 25 mg rectal suppository: 25 mg = 1 supp, W[place], BID, for 10 day(s), 20 supp, 0 Refill(s) Creon 12,000 units oral delayed release capsule: 1 cap(s), PO, TID, 90 cap(s), 0 Refill(s) Dayvigo 10 mg oral tablet: 10 mg = 1 tab(s), PO, Once a day (at bedtime), 0 Refill(s) GaviLyte-G oral powder for reconstitution: 240 mL, PO, Daily, 480 mL, 0 Refill(s) LORazepam 1 mg oral tablet: 1 mg = 1 tab(s), PO, BID, 0 Refill(s) QUEtiapine 100 mg oral tablet: 100 mg = 1 tab(s), PO, TID, 270 tab(s), 0 Refill(s) acetaminophen-hydrocodone 325 mg-5 mg oral tablet: 1 tab(s), PO, q6hr, PRN: as needed for pain, 0 Refill(s) amLODIPine 2.5 mg oral tablet: 2.5 mg = 1 tab(s), PO, Daily, 30 tab(s), 0 Refill(s) amitriptyline 50 mg oral tablet: 50 mg = 1 tab(s), PO, Once a day (at bedtime), 30 tab(s), 0 Refill(s) carvedilol 12.5 mg oral tablet: 12.5 mg = 1 tab(s), PO, BID, 180 tab(s), 0 Refill(s) chlordiazepoxide-clidiniu m 5 mg-2.5 mg oral capsule: 1 cap(s), PO, BID, 0 Refill(s) fluticasone 50 mcg/inh nasal spray: 2 spray(s), Nasal, BID, 16 gm, 0 Refill(s) hydroCHLOROthiazide 25 mg oral tablet: 25 mg = 1 tab(s), PO, Daily, 30 tab(s), 0 Refill(s) hyoscyamine 0.125 mg oral tablet: 0.125 mg = 1 tab(s), PO, QID, PRN: for spasm, 40 tab(s), 0 Refill(s) insulin aspart 100 units/mL injectable solution: 10 unit(s), (more content not included)... Normal [facility] ED Patient Summaryon 022 ED Patient Summary [facility] - Emergency Department [address] [place], [place] [id number] PATIENT DISCHARGE INSTRUCTIONS Patient Information Name: DRUCKENMILLER, PRITESH A Age: 37 Years Date of : 1985 [facility]: [id number] Reason For Visit: Abdominal pain; Rectal pain; Rectal pain; Abdominal pain; RECTAL PAIN, ABD PAIN Arrival Time: 02/22/2022 12:04:00 Primary Care Physician: Provider, Unlisted Attending Physician: Ender Lee MD Comment: Visit Diagnosis: Diagnoses This Visit Abdominal pain ([id number]) Abdominal pain ([id number]) Elevated blood pressure reading (R03.0) Nausea (R11.0) Rectal or anal pain (K62.89) Rectal pain ([id number]) Rectal pain ([id number]) The Pharmacy at [facility] is open Wednesday through Wednesday from 9A to 6P and Wednesday and Wednesday from 9A to 5P Prescription Information: If you have been given a prescription for narcotics, seek immediate medical attention if you have any difficulty breathing or any sudden status changes such as confusion and sleepiness. If you or anyone you know is experiencing suicidal thoughts, mental health, alcohol and/or drug addiction problems; contact the [facility] 28/12 Crisis Hotline -Xoog 4RPHF fi 992006. If you received any narcotics, sedation, or any other medication that causes drowsiness for the next 24 hours, unless otherwise directed: ? Do not drive a car. ? Do not operate machinery such as power tools, lawn mowers, drills, sewing machines, or stoves ? Avoid alcoholic beverages and drugs for allergies, nerves, or sleep ? Do not make important personal or business decisions or sign any legal documents With: Address: When: Follow up with specialist Within 1 to 2 days Comments: Reviewed discharge care instruction. Continue with therapy as outlined by Dr. Lee. Continue to observe for any change in symptoms. Contact your PCP and specialist for follow-up. Return to ER for any worsening symptoms especially any symptom that concerns you. You were found to have an elevated blood pressure reading in the emergency department. It is unclear if your reading today is because that you were seen in the emergency department with increased level of concerns or that your blood pressure is elevated and not adequately under control. You should check your blood pressure routinely, daily. Contact your primary care provider if your blood pressure reading is consistently elevated. Medication Information: The exam and treatment you received today in the [facility] Emergency Department were for an urgent problem and are not intended as complete care. It is important for you to follow up with a doctor, nurse practitioner, or physician?s licensed nursing assistant for ongoing care. If your symptoms become worse or you do not improve as expected and you are unable to reach your usual health care provider, you should return to the Emergency Department, we are available 24 hours a day. For those patients who have received Radiology results, the interpretation of your X-ray as given to you by our Emergency Department physician is only a preliminary report. The Radiologist will review your films and if there is a change in the diagnosis you will be notified by phone. Please make sure you have provided a working phone number so we can reach you if necessary. In the event that you had a lab culture while you were a patient in the Emergency Department, you will be notified by phone if there is a need to change your antibiotic. Please make sure you have provided a working phone number so we can reach you if necessary. [facility] Emergency Department has provided you with a complete list of medications post discharge. Please inform your freezer unloader/provider of your visit and for further instruction on these medications. Any specific questions regarding your chronic medications and dosages should be discussed with your primary care physician(s) and/or pharmacist. Additional medications on your home medication list not specifically addressed. Please contact the ordering physician if you have questions about these medications. acetaminophen-hydrocodone (acetaminophen-hydrocodon e 325 mg-5 mg oral tablet) 1 tab(s) Oral Every 6 hours as needed as needed for pain. ALPRAZolam (ALPRAZolam 1 mg oral tablet) 1 tab(s) Oral 2 times a day. amitriptyline (amitriptyline 50 mg oral tablet) 1 tab(s) Oral once a day (at bedtime). amLODIPine (amLODIPine 2.5 mg oral tablet) 1 tab(s) Oral every day. carvedilol (carvedilol 12.5 mg oral tablet) 1 tab(s) Oral 2 times a day. chlordiazepoxide-clidiniu m (chlordiazepoxide-clidini um 5 mg-2.5 mg oral capsule) 1 cap(s) Oral 2 times a day. Durable Medical Equipment for Prescription (ACCU-CHEK GUIDE GUIDE GELY) See instructions. fluticasone nasal (fluticasone 50 mcg/inh nasal spray (more content not included)... Normal [facility] Albumin [Mass/volume] in Ser um or PlasmaOrdered By: Sukhwinder Styles on 02-20-2022 Albumin [Mass/Vol] 3.7 g/dL 3.2-5.5 [facility] Basophils Auto (Bld) [#/Vol] Ordered By: Sukhwinder Styles on 02-20-2022 Basophils (Bld) [#/Vol] N/A [facility] Basophils/100 WBC Auto (Bld) Ordered By: Sukhwinder Styles on 02-20-2022 Basophils/100 WBC (Bld) N/A [facility] Basophils/100 WBC (Bld) 1 % 0-2 [facility] Blood anisocytosis detection Ordered By: Sukhwinder Styles on 02-20-2022 Anisocytosis Ql (Bld) Moderate [facility] Blood hemoglobin measurement (mass/volume)Ordered By: Sukhwinder Styles on 02-20-2022 Hemoglobin (Bld) [Mass/Vol] 8.6 g/dL 11.8-15.4 [facility] Blood leukocytes automated c ount (number/volume)Ordered By: Sukhwinder Styles on 02-20-2022 WBC (Bld) [#/Vol] 10.6 10*3/uL 4.5-11.0 [facility] Blood polychromasia detectio n by light microscopyOrdered By: Sukhwinder Styles on 02-20-2022 Polychromasia LM Ql (Bld) Slight [facility] Creatinine and Glomerular fi ltration rate.predicted panel (S/P/Bld)Ordered By: Sukhwinder Styles on 02-20-2022 Creatinine [Mass/Vol] 1.87 mg/dL 0.44-1.[address] [facility] Eosinophils Auto (Bld) [#/Vo l]Ordered By: Sukhwinder Styles on 02-20-2022 Eosinophils (Bld) [#/Vol] N/A [facility] Eosinophils/100 WBC Auto (Bl d)Ordered By: Sukhwinder Styles on 02-20-2022 Eosinophils/100 WBC (Bld) N/A [facility] Erythrocyte distribution wid th Auto (RBC) [Ratio]Ordered By: Sukhwinder Styles on 02-20-2022 Erythrocyte distribution width (RBC) [Ratio] 17.1 % 11.9-15.3 [facility] Estimated glomerular filtrat ion rate (GFR) non- AmericanOrdered By: Sukhwinder Styles on 02-20-2022 GFR/1.73 sq M.predicted among non-blacks MDRD (S/P/Bld) [Vol rate/Area] 30 mL/Min [facility] Globulin Calc (S) [Mass/Vol] Ordered By: Sukhwinder Styles on 02-20-2022 Globulin (S) [Mass/Vol] 3.5 g/dL [facility] Hematocrit Auto (Bld) [Volum e fraction]Ordered By: Sukhwinder Styles on 02-20-2022 Hematocrit (Bld) [Volume fraction] 26.8 % 34.0-46.4 [facility] Hypochromia detectionOrdered By: Sukhwinder Styles on 02-20-2022 Hypochromia Ql (Bld) Moderate [facility] - Hematology and Cell countsOrdered By: Sukhwinder Styles on 02-20-2022 Nucleated RBC/100 WBC (Bld) [Ratio] 0.0 % 0-0.5 [facility] Lymphocytes Auto (Bld) [#/Vo l]Ordered By: Sukhwinder Styles on 02-20-2022 Lymphocytes (Bld) [#/Vol] N/A [facility] Lymphocytes/100 WBC Auto (Bl d)Ordered By: Sukhwinder Styles on 02-20-2022 Lymphocytes/100 WBC (Bld) N/A [facility] Lymphocytes/100 WBC (Bld) 21 % 18-42 [facility] MCH Auto (RBC) [Entitic mass ]Ordered By: Sukhwinder Styles on 02-20-2022 MCH (RBC) [Entitic mass] 27.1 pg 24.7-34.3 [facility] MCHC Auto (RBC) [Mass/Vol]Or dered By: Sukhwinder Styles on 02-20-2022 MCHC (RBC) [Mass/Vol] 32.0 g/dL 32.0-35.[address] [facility] MCV Auto (RBC) [Entitic vol] Ordered By: Sukhwinder Styles on 02-20-2022 MCV (RBC) [Entitic vol] 84.8 fL 80-100 [facility] Monocyte %Ordered By: Sukhwinder Styles on 02-20-2022 Monocytes/100 WBC (Bld) 1 % 1-3 [facility] Monocytes Auto (Bld) [#/Vol] Ordered By: Sukhwinder Styles on 02-20-2022 Monocytes (Bld) [#/Vol] N/A [facility] Monocytes/100 WBC Auto (Bld) Ordered By: Sukhwinder Styles on 02-20-2022 Monocytes/100 WBC (Bld) N/A [facility] Monocytes/100 WBC Manual cnt (Bld)Ordered By: Sukhwinder Styles on 02-20-2022 Monocytes/100 WBC (Bld) 5 % 2-11 [facility] Neutrophils Auto (Bld) [#/Vo l]Ordered By: Sukhwinder Styles on 02-20-2022 Neutrophils (Bld) [#/Vol] N/A [facility] Neutrophils/100 WBC Auto (Bl d)Ordered By: Sukhwinder Styles on 02-20-2022 Neutrophils/100 WBC (Bld) N/A [facility] No Panel InformationOrdered By: Sukhwinder Styles on 02-20-2022 Acanthocytes Slight [facility] Estimated GFR () 37 mL/Min [facility] Comment on above: GFR estimated refere nce range: According to KDOQI guidelines, <60 ml/min/1.73m2 is sufficient to diagnose a patient with chronic kidney disease. Pharmacy Creatinine Clearance (Chem 41.95 [facility] Platelet Estimate Increased Normal [facility] Platelet Morphology Comment Normal Normal [facility] Schistocytes Slight [facility] Platelet mean volume Auto (B ld) [Entitic vol]Ordered By: Sukhwinder Styles on 02-20-2022 Platelet mean volume (Bld) [Entitic vol] 8.2 fL 6.3-10.7 [facility] Platelets Auto (Bld) [#/Vol] Ordered By: Sukhwinder Styles on 02-20-2022 Platelets (Bld) [#/Vol] 470 10*3/uL 150-450 [facility] Protein [Mass/volume] in Ser um or PlasmaOrdered By: Sukhwinder Styles on 02-20-2022 Protein [Mass/Vol] 7.2 g/dL 6.1-7.9 [facility] RBC Auto (Bld) [#/Vol]Ordere d By: Sukhwinder Styles on 02-20-2022 RBC (Bld) [#/Vol] 3.16 10*6/uL 3.60-5.00 [facility] RBC morphologyOrdered By: Hilario Styles on 02-20-2022 RBC morphology finding Nom (Bld) N/A [facility] Segmented neutrophils/100 WB C Manual cnt (Bld)Ordered By: Sukhwinder Styles on 02-20-2022 Segmented neutrophils/100 WBC (Bld) 72 % 50-70 [facility] Serum or plasma alanine tate otransferase measurement without P-5'-P (enzymatic activiOrdered By: Sukhwinder Styles on 02-20-2022 ALT No additional P-5'-P [Catalytic activity/Vol] 17 U/L 10-60 [facility] Serum or plasma albumin/glob ulin mass ratioOrdered By: Sukhwinder Styles on 02-20-2022 Albumin/Globulin [Mass ratio] 1.1 {ratio} [facility] Serum or plasma alkaline harish sphatase measurement (enzymatic activity/volume)Ordered By: Sukhwinder Styles on 02-20-2022 ALP [Catalytic activity/Vol] 109 U/L 32-92 [facility] Serum or plasma anion gap de terminationOrdered By: Sukhwinder Styles on 02-20-2022 Anion gap [Moles/Vol] 13.0 mmol/L 6.0-15.0 [facility] Serum or plasma aspartate am inotransferase measurement (enzymatic activity/volume)Ordered By: Sukhwinder Styles on 02-20-2022 AST [Catalytic activity/Vol] 19 U/L 10-42 [facility] Serum or plasma calcium amber urement (mass/volume)Ordered By: Sukhwinder Styles on 02-20-2022 Calcium [Mass/Vol] 8.6 mg/dL 8.2-10.2 [facility] Serum or plasma chloride franco surement (moles/volume)Ordered By: Sukhwinder Styles on 02-20-2022 Chloride [Moles/Vol] 104 mmol/L 95-114 [facility] Serum or plasma glucose amber urement (mass/volume)Ordered By: Sukhwinder Styles on 02-20-2022 Glucose [Mass/Vol] 142 mg/dL 70-100 [facility] Comment on above: ADA recommended refe rence range Random Glucose Reference Range is dependent on time and content of last meal. Glucose of more than 200 mg/dL in a nonstressed, ambulatory subject supports the diagnosis of Diabetes Mellitus. ADA recommended refe rence rangeRandom Glucose Reference Range is dependent on time and content of last meal. Glucose of more than 200 mg/dL in a nonstressed, ambulatory subject supports the diagnosis of Diabetes Mellitus. Serum or plasma potassium me asurement (moles/volume)Ordered By: Sukhwinder Styles on 02-20-2022 Potassium [Moles/Vol] 4.4 mmol/L 3.5-5.[address] [facility] Serum or plasma sodium measu rement (moles/volume)Ordered By: Sukhwinder Styles on 02-20-2022 Sodium [Moles/Vol] 134 mmol/L 136-146 [facility] Serum or plasma total biliru bin measurement (mass/volume)Ordered By: Sukhwinder Styles on 02-20-2022 Bilirubin [Mass/Vol] 0.3 mg/dL 0.3-1.2 [facility] Serum or plasma total carbon dioxide measurement (moles/volume)Ordered By: Sukhwinder Styles on 02-20-2022 CO2 [Moles/Vol] 21.4 mmol/L 22.0-30.0 [facility] Serum or plasma urea nitroge n measurement (mass/volume)Ordered By: Sukhwinder Styles on 02-20-2022 Urea nitrogen [Mass/Vol] 21 mg/dL 02-27 [facility] CNPNon 02-19-2022 CNPN Normal [facility] CNPNon 02-18-2022 CNPN Normal [facility] CNPNon 02-13-2022 CNPN Normal [facility] CNPNon 02-04-2022 CNPN Normal [facility] CNPNon 01-15-2022 CNPN Normal [facility] CNPNon 01-14-2022 CNPN Normal [facility] CNPNon 01-07-2022 CNPN Normal [facility] Covid-19 PCR (CVDTB)on SARS-CoV-2 (COVID-19) RNA DAVIS+probe Ql (Unsp spec) Not detected Normal NOT DETECTED [facility] Comment on above: Result Comment: This test is not yet approved or cleared by the [place] FDA. When there are no FDA-approved or cleared tests available, and other criteria are met, FDA can make tests available under an emergency access mechanism called an Emergency Use Authorization (EUA). The EUA for this test is supported by the [place] of Health and Human Service's (HHS's) declaration that circumstances exist to justify the emergency use of in vitro diagnostics for the detection and/or diagnosis of the virus that causes COVID-19. This EUA will remain in effect (meaning this test can be used) for the duration of the COVID-19 declaration justifying emergency of IVDs, unless it is terminated or revoked by FDA (after which the test may no longer be used). When diagnostic testing is negative, the possibility of a false negative should be considered in the context of a patient's recent exposures and the presence of clinical signs and symptoms consistent with SARS-CoV-2. Performed By: #### P OCGLUC #### [facility] [address] [place] [address] Dr. Laila Feliciano CNPNon 01-06-2022 CNPN Normal [facility] CNPNon 01-05-2022 CNPN Normal [facility] HISTORY PHYSICALon HISTORY PHYSICAL Normal [facility] CNPNon 01-02-2022 CNPN Normal [facility] ECG COMPLETEon 01-02-2022 ECG COMPLETE Normal [facility] XR DEFECOGRAPHYon 01-02-2022 XR DEFECOGRAPHY Normal [facility] A1C HEMOGLOBINon 01-01-2022 HbA1c (Bld) [Mass fraction] 8.6 % [facility] [employer] Other CNCNPATEDon 01-01-2022 CNCNPATED Normal [facility] Glucose - FINGER STICKon Glucose - FINGER STICK [facility] Other Basic metabolic 2000 panelon 12-31-2021 Anion gap [Moles/Vol] 14 mmol/L Normal 9-18 [facility] Comment on above: Order Comment: Speci men Type: BLOOD SPECIMENOrdering Facility: [facility] Address: [address] [place] [address] Performed By: #### 2 4321-2 ####[facility] LABCLIA [id number] [place] [address] [place] Calcium [Mass/Vol] 9.5 mg/dL Normal 8.5-10.2 [facility] Comment on above: Order Comment: Speci men Type: BLOOD SPECIMENOrdering Facility: [facility] Address: [address] [place] [address] Performed By: #### 2 4321-2 ####[facility] LABCLIA [id number] [place] [address] [place] Chloride [Moles/Vol] 104 mmol/L Normal 97-105 [facility] Comment on above: Order Comment: Speci men Type: BLOOD SPECIMENOrdering Facility: [facility] Address: [address] [place], [place] [id number] Performed By: #### 2 4321-2 ####[facility] LABCLIA [id number] [place] [address] [place] CO2 [Moles/Vol] 22 mmol/L Normal 22-30 [facility] Comment on above: Order Comment: Speci men Type: BLOOD SPECIMENOrdering Facility: [facility] Address: [address] [address] Performed By: #### 2 4321-2 ####[facility] [id number] [address] [place] Creatinine [Mass/Vol] 1.55 mg/dL High 0.58-0.96 [facility] Comment on above: Order Comment: Speci men Type: BLOOD SPECIMENOrdering Facility: [facility] Address: [address] [place] [address] Performed By: #### 2 4321-2 ####[facility] [id number] [place] [address] [place] ESTIMATED GLOMERULAR FILTRATION RATE 45 mL/min/1.73m??? Low >=60 [facility] Comment on above: Order Comment: Speci men Type: BLOOD SPECIMENOrdering Facility: [facility] Address: [address] [place] [address] Result Comment: Isabel mated Glomerular Filtration Rate (eGFR) is calculated using the 2020 CKD-EPI creatinine equation. This equation utilizes serum creatinine, sex, and age as parameters. The creatinine assay has traceable calibration to isotope dilution-mass spectrometry. Refer to KDIGO guidelines for clinical interpretation. In patients with unstable renal function, e.g. those with acute kidney injury, the eGFR may not accurately reflect actual GFR. Performed By: #### 2 4321-2 ####[facility] LABIA [id number] [place] [address] [place] Glucose [Mass/Vol] 104 mg/dL High 74-99 [facility] Comment on above: Order Comment: Speci men Type: BLOOD SPECIMENOrdering Facility: [facility] Address: [address] [place] [address] Result Comment: The [place] Diabetes Association (ADA) provides guidance for cutoff values for fasting glucose and random glucose. The ADA defines fasting as no caloric intake for at least 8 hours. Fasting plasma glucose results between 100 to 125 mg/dL indicate increased risk for diabetes (prediabetes).Fasting plasma glucose results greater than or equal to 126 mg/dL meet the criteria for diagnosis of diabetes. In the absence of unequivocal hyperglycemia, results should be confirmed by repeat testing. In a patient with classic symptoms of hyperglycemia or hyperglycemic crisis, random plasma glucose results greater than or equal to 200 mg/dL meet the criteria for diagnosis of diabetes.Reference: Standards of Medical Care in Diabetes 2016, [place] [employer]. Diabetes Care. 2016.39(Suppl 1). Performed By: #### 2 4321-2 ####[facility] LABCLIA [id number] [place] [address] [place] Potassium [Moles/Vol] 4.4 mmol/L Normal 3.7-5.1 [facility] Comment on above: Order Comment: Speci men Type: BLOOD SPECIMENOrdering Facility: [facility] Address: [address] [place] [address] Performed By: #### 2 4321-2 ####[facility] LABCLIA [id number] [place] [address] [place] Sodium [Moles/Vol] 140 mmol/L Normal 136-144 [facility] Comment on above: Order Comment: Angel salazar Type: BLOOD SPECIMENOrdering Facility: [facility] Address: [address] [place] [address] Performed By: #### 2 4321-2 ####[facility] LABCLIA [id number] [place] [address] [place] Urea nitrogen [Mass/Vol] 25 mg/dL High 7-21 [facility] Comment on above: Order Comment: Speci men Type: BLOOD SPECIMENOrdering Facility: [facility] Address: [address] [place] [address] Performed By: #### 2 4321-2 ####[facility] LABCLIA [id number] [place] [address] [place] CBC panel Auto (Bld)on 12-31 Erythrocyte distribution width (RBC) [Ratio] 17.1 % High 11.5-15.0 [facility] Comment on above: Order Comment: Speci men Type: BLOOD SPECIMENOrdering Facility: [facility] Address: [address] [place], [place] [id number] Performed By: #### 5 8410-2 ####[facility] LABCLIA [id number] [place] [address] [place] Hematocrit (Bld) [Volume fraction] 32.4 % Low 36.0-46.0 [facility] Comment on above: Order Comment: Speci men Type: BLOOD SPECIMENOrdering Facility: [facility] Address: [address] [place], [place] [id number] Performed By: #### 5 8410-2 ####[facility] LABCLIA [id number] [address] [place] Hemoglobin (Bld) [Mass/Vol] 9.7 g/dL Low 11.5-15.5 [facility] Comment on above: Order Comment: Speci men Type: BLOOD SPECIMENOrdering Facility: [facility] Address: [address] [place], [place] [id number] Performed By: #### 5 8410-2 ####[facility] LABCLIA [id number] [place] [address] [place] MCH (RBC) [Entitic mass] 27.2 pg Normal 26.0-34.0 [facility] Comment on above: Order Comment: Speci men Type: BLOOD SPECIMENOrdering Facility: [facility] Address: [address] [place], [place] [address] Performed By: #### 5 8410-2 ####[facility] LABCLIA [id number] [place] [address] [place] MCHC (RBC) [Mass/Vol] 29.9 g/dL Low 30.5-36.0 [facility] Comment on above: Order Comment: Speci men Type: BLOOD SPECIMENOrdering Facility: [facility] Address: [address] [place], [place] [address] Performed By: #### 5 8410-2 ####[facility] [id number] [address] [place] MCV (RBC) [Entitic vol] 91.0 fL Normal 80.0-100.0 [facility] Comment on above: Order Comment: Speci men Type: BLOOD SPECIMENOrdering Facility: [facility] Address: [address] [place], [place] [address] Performed By: #### 5 8410-2 ####[facility] [id number] [place] [address] [place] Nucleated RBC (Bld) [#/Vol] 10*3/uL Normal <0.01 [facility] Comment on above: Order Comment: Speci men Type: BLOOD SPECIMENOrdering Facility: [facility] Address: [address] [place], [place] [address] Performed By: #### 5 8410-2 ####[facility] [id number] [place] [address] [place] Platelet mean volume (Bld) [Entitic vol] 11.6 fL Normal 9.0-12.7 [facility] Comment on above: Order Comment: Speci men Type: BLOOD SPECIMENOrdering Facility: [facility] Address: [address] [place] [address] Performed By: #### 5 8410-2 ####[facility] [id number] [place] [address] [place] Platelets (Bld) [#/Vol] 417 10*3/uL High 150-400 [facility] Comment on above: Order Comment: Speci men Type: BLOOD SPECIMENOrdering Facility: [facility] Address: [address] [place] [address] Performed By: #### 5 8410-2 ####[facility] LABCLIA [id number] [place] [address] [place] RBC (Bld) [#/Vol] 3.56 10*6/uL Low 3.90-5.20 [facility] Comment on above: Order Comment: Speci men Type: BLOOD SPECIMENOrdering Facility: [facility] Address: [address] [place], [place] [address] Performed By: #### 5 8410-2 ####[facility] LABCLIA [id number] [place] [address] [place] WBC (Bld) [#/Vol] 14.97 10*3/uL High 3.70-11.00 [facility] Comment on above: Order Comment: Speci men Type: BLOOD SPECIMENOrdering Facility: [facility] Address: [address] [place], [place] [address] Performed By: #### 5 8410-2 ####[facility] LABCLIA [id number] [place] [address] [place] CNOVon 12-31-2021 CNOV Normal [facility] HISTORY PHYSICALon 2 HISTORY PHYSICAL Normal [facility] TYPE AND SCREEN,30 DAYon ABO A Normal [facility] Comment on above: Order Comment: Speci men Type: BLOOD SPECIMENOrdering Facility: [facility] Address: [address] [place], [place] [phone] Performed By: #### T SCR30 ####[facility] B[facility] BANKCLIA [id number] [place] [address] [place] HISTORICAL AB SCR STATUS Negative Normal [facility] Comment on above: Order Comment: Speci men Type: BLOOD SPECIMENOrdering Facility: [facility] Address: [address] [place], [place] [address] Performed By: #### T SCR30 ####[facility] BLO[facility] BANKCLIA [id number] [place] [address] [place] Rh Nom (Bld) Positive Normal [facility] Comment on above: Order Comment: Speci men Type: BLOOD SPECIMENOrdering Facility: [facility] Address: [address] [place], [place] [address] Performed By: #### T SCR30 ####[facility] BLOOD BANKCLIA [id number] [address] [place] AMYLASEon 12-20-2021 Amylase [Catalytic activity/Vol] 66 U/L Normal 25-115 [facility] Comment on above: Performed By: #### P OCGLUC #### [facility] [address] [address] [address] Laila Feliciano CBC AUTO DIFFon 12-20-2021 BASO # 0.1 103/ul Normal 0.0-0.1 [facility] Comment on above: Performed By: #### T NS #### [facility] [address] [address] [address] Laila Feliciano Basophils/100 WBC (Bld) 0.6 % Normal 0.2-2.0 [facility] Comment on above: Performed By: #### T NS #### [facility] [address] [address] [address] Laila Feliciano EO # 0.0 103/ul Normal 0.0-0.7 [facility] Comment on above: Performed By: #### T NS #### [facility] [address] [address] [address] Laila Feliciano Eosinophils/100 WBC (Bld) 0.2 % Critically low 0.9-7.0 [facility] Comment on above: Performed By: #### T NS #### [facility] [address] [address] [address] Laila Feliciano Erythrocyte distribution width (RBC) [Ratio] 16.4 % Critically high 11.0-15.0 [facility] Comment on above: Performed By: #### T NS #### [facility] [address] [place] [address] Dr. Laila Feliciano Hematocrit (Bld) [Volume fraction] 33.2 % Critically low 36.0-48.0 [facility] Comment on above: Performed By: #### T NS #### [facility] [address] [place] [address] Dr. Laila Feliciano Hemoglobin (Bld) [Mass/Vol] 10.2 g/dL Critically low 12.0-16.0 [facility] Comment on above: Performed By: #### T NS #### [facility] [address] [place] [address] Dr. Laila Feliciano IG # 0.03 10e3/ul Normal 0.00-0.03 [facility] Comment on above: Performed By: #### T NS #### [facility] [facility] [address] [place] [address] Dr. Laila Feliciano IG % 0.3 % Normal 0.0-0.5 [facility] Comment on above: Performed By: #### T NS #### [facility] [address] [place] [address] Dr. Laila Feliciano LYMPH # 2.8 103/ul Normal 1.2-3.8 [facility] Comment on above: Performed By: #### T NS #### [facility] [address] [place] [address] Dr. Laila Feliciano Lymphocytes/100 WBC (Bld) 23.8 % Normal 20.5-60.0 [facility] Comment on above: Performed By: #### T NS #### [facility] [address] [place] [address] Dr. Laila Feliciano MANUAL DIFF REQ NO Normal [facility] Comment on above: Performed By: #### T NS #### [facility] [address] [place] [address] Dr. Laila Feliciano MCH (RBC) [Entitic mass] 26.9 pg Normal 26.7-34.0 [facility] Comment on above: Performed By: #### T NS #### [facility] [address] [place] [address] Dr. Laila Feliciano MCHC (RBC) [Mass/Vol] 30.7 g/dL Normal 29.9-35.2 [facility] Comment on above: Performed By: #### T NS #### [facility] [address] [place] [address] Dr. Laila Feliciano MCV (RBC) [Entitic vol] 87.6 fL Normal 81.0-99.0 [facility] Comment on above: Performed By: #### T NS #### [facility] [address] [place] [address] Dr. Laila Feliciano MONO # 0.9 103/ul Critically high 0.3-0.8 [facility] [place] Comment on above: Performed By: #### T NS #### [facility] [address] [place] [address] Dr. Laila Feliciano Monocytes/100 WBC (Bld) 8.0 % Normal 1.7-12.0 [facility] Comment on above: Performed By: #### T NS #### [facility] [address] [place] [address] Dr. Laila Feliciano NEUT # 7.8 103/ul Critically high 1.4-6.5 [facility] [place] Comment on above: Performed By: #### T NS #### [facility] [address] [place] [address] Dr. Laila Feliciano Neutrophils/100 WBC (Bld) 67.1 % Normal 43.0-75.0 [facility] Comment on above: Performed By: #### T NS #### [facility] [address] [place] [address] Dr. Laila Feliciano Platelet mean volume (Bld) [Entitic vol] 11.4 fL Normal 9.5-13.5 [facility] Comment on above: Performed By: #### T NS #### [facility] [address] [place] [address] Dr. Laila Feliciano PLT 434 103/ul Normal 150-450 [facility] Comment on above: Performed By: #### T NS #### [facility] [address] [place] [address] Dr. Laila Feliciano RBC 3.79 106/ul Critically low 4.20-5.40 [facility] [place] Comment on above: Performed By: #### T NS #### [facility] [address] [place], [place] [address] Dr. Laila Feliciano WBC 11.7 103/ul Critically high 4.0-11.0 [facility] Comment on above: Performed By: #### T NS #### [facility] [address] [place], [place] [address] ABD/PELVIS WO CONon 12-20 CT ABD/PELVIS WO CON CT ABD/PELVIS WO CO N: 12/20/2021 2:27 AM EDT CLINICAL HISTORY: 36 years old Female with ABDOMINAL DISTENSION (GASEOUS). TECHNIQUE: Axial CT images through the abdomen and pelvis are obtained without the intravenous administration of contrast. Coronal and sagittal reformations are also obtained. Dose reduction techniques were achieved by using automated exposure control and/or adjustment of mA and/or kV according to patient size and/or use of iterative reconstruction technique. COMPARISON: CT performed 11/21/2021. FINDINGS: The lung bases are clear with no dependent infiltrate or effusion. Without the use of IV or oral contrast the study is limited by incomplete evaluation of the blood vessels, solid visceral organs and bowel. The and bilateral adrenal glands are unremarkable. Close is technically clips are present with the gallbladder surgically absent. Pneumobilia appears unchanged from the prior study. The spleen is surgically absent. Fatty replacement of the pancreas is present with surgical clips persisting. The bilateral adrenal glands are unremarkable. The bilateral kidneys are unremarkable with no renal calculi or hydronephrosis. The bilateral ureters demonstrate no gross abnormality or obstruction. Post surgical change of the stomach is again present. The duodenum does not cross midline suggesting malrotation of the jejunum felt to be to the right of the abdomen. Mildly dilated gas-filled loops of distal small bowel are present with intraluminal fecal content with transitional point is prior to the terminal ileum (series 3 image 72 and series 5 image 25) Fecal stasis and redundancy is seen throughout the right colon. Abnormal mucosal thickening and fluid within the left colon is present with redundancy of the sigmoid colon. The bladder appears unremarkable. There is no evidence of aortic aneurysm. No enlarged lymph nodes are seen. No free air or free fluid is seen. Intrauterine device is in place. Discogenic degenerative change L5-S1. No compression fracture deformity or suspicious osseous abnormality. IMPRESSION: 1. 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 2. Additional fecal stasis throughout the right colon is present. Mucosal thickening and fluid density within the left colon with redundancy of the sigmoid colon is present likely relating to diarrheal illness and colitis. 3. Degraded evaluation secondary to lack of intravenous and oral contrast with significant fecal stasis and postsurgical change. Recommendation: Upper GI and small bowel follow-through may be of added benefit. Electronically authenticated by: STEVO STROUD Date: 2021-12-20 03:41 Normal [facility]on 12-05 SARS-CoV-2 (COVID-19) RNA DAVIS+probe Ql (Unsp spec) Not detected Normal NOT DETECTED [facility] Comment on above: Result Comment: When diagnostic testing is negative, the possibility of a false negative should be considered in the context of a patient's recent exposures and the presence of clinical signs and symptoms consistent with SARS-CoV-2. This test is not yet approved or cleared by the [place] FDA. When there are no FDA-approved or cleared tests available, and other criteria are met, FDA can make tests available under an emergency access mechanism called an Emergency Use Authorization (EUA). The EUA for this test is supported by the [place] of Health and Human Service's declaration that circumstances exist to justify the emergency use of in vitro diagnostics for the detection and/or diagnosis of the virus that causes COVID-19. This EUA will remain in effect for the duration of the COVID-19 declaration justifying emergency of IVDs, unless it is terminated or revoked by the FDA (after which the test may no longer be used). Performed By: #### P RBC #### [facility] [address] [place] [address] Dr. Laila Feliciano LIPASEon 12-20-2021 Lipase [Catalytic activity/Vol] 15.0 U/L Critically low 73.0-393.0 [facility] Comment on above: Performed By: #### C BC #### [facility] [address] [place] [address] [address] Laila Feliciano PROF 14(COMP METB)on 022 Albumin [Mass/Vol] 4.4 g/dL Normal 3.4-5.0 [facility] Comment on above: Performed By: #### P OCGLUC #### [facility] [address] [address] [address] Laila Feliciano Albumin/Globulin [Mass ratio] 1.0 {ratio} Normal [facility] Comment on above: Performed By: #### P OCGLUC #### [facility] [address] [address] [address] Laila Feliciano ALP [Catalytic activity/Vol] 126 U/L Critically high 46-116 [facility] Comment on above: Performed By: #### P OCGLUC #### [facility] [address] [address] [address] Laila Feliciano ALT [Catalytic activity/Vol] 49 U/L Normal 14-59 [facility] Comment on above: Performed By: #### P OCGLUC #### [facility] [address] [address] [address] Laila Feliciano Anion gap [Moles/Vol] 16.0 mmol/L Normal [facility] Comment on above: Performed By: #### P OCGLUC #### [facility] [address] [address] [address] Laila Feliciano AST [Catalytic activity/Vol] 31 U/L Normal 15-37 [facility] Comment on above: Performed By: #### P OCGLUC #### [facility] [address] [address] [address] Laila Feliciano Bilirubin [Mass/Vol] 0.3 mg/dL Normal 0.2-1.0 [facility] Comment on above: Performed By: #### P OCGLUC #### [facility] [address] [address] [address] Laila Feliciano Calcium [Mass/Vol] 9.5 mg/dL Normal 8.5-10.1 [facility] Comment on above: Performed By: #### P OCGLUC #### [facility] [address] [address] [address] Laila Feliciano Chloride [Moles/Vol] 102 mmol/L Normal 98-107 [facility] Comment on above: Performed By: #### P OCGLUC #### [facility] [address] [address] [address] Laila Feliciano CO2 [Moles/Vol] 25.3 mmol/L Normal 21.0-32.[address] [facility] Comment on above: Performed By: #### P OCGLUC #### [facility] [address] [address] [address] Laila Feliciano Creatinine [Mass/Vol] 2.14 mg/dL Critically high 0.55-1.02 [facility] Comment on above: Performed By: #### P OCGLUC #### [facility] [address] [place] [address] [address] Laila Feliciano EGFR-AF PAKISTANI 32 mL/min/1.73m2 Critically low >=60 [facility] Comment on above: Performed By: #### P OCGLUC #### [facility] [address] [address] [address] Laila Feliciano EGFR-NON AF PAKISTANI 26 mL/min/1.73m2 Critically low >=60 [facility] Comment on above: Performed By: #### P OCGLUC #### [facility] [address] [address] [address] Laila Feliciano Globulin (S) [Mass/Vol] 4.3 g/dL Normal [facility] Comment on above: Performed By: #### P OCGLUC #### [facility] [address] [address] [address] Laila Feliciano Glucose [Mass/Vol] 272 mg/dL Critically high 74-106 [facility] Comment on above: Performed By: #### P OCGLUC #### [facility] [address] [address] [address] Laila Feliciano Potassium [Moles/Vol] 4.3 mmol/L Normal 3.5-5.1 [facility] Comment on above: Performed By: #### P OCGLUC #### [facility] [address] [address] [address] Laila Feliciano Protein [Mass/Vol] 8.7 g/dL Critically high 6.4-8.2 [facility] Comment on above: Performed By: #### P OCGLUC #### [facility] [address] [address] [address] Laila Feliciano Sodium [Moles/Vol] 139 mmol/L Normal 136-145 [facility] Comment on above: Performed By: #### P OCGLUC #### [facility] [address] [address] [address] Laila Feliciano Urea nitrogen [Mass/Vol] 28.0 mg/dL Critically high 7.0-18.0 [facility] Comment on above: Performed By: #### P OCGLUC #### [facility] [address] [place] [address] Dr. Laila Feliciano Urea nitrogen/Creatinine [Mass ratio] 13.1 mg/mg Normal [facility] Comment on above: Performed By: #### P OCGLUC #### [facility] [address] [place] [address] Dr. Laila Feliciano CBC AUTO DIFFon 11-30-2021 BASO # 0.0 103/ul Normal 0.0-0.1 [facility] Comment on above: Performed By: #### T NS #### [facility] [address] [place] [address] Dr. Laila Feliciano Basophils/100 WBC (Bld) 0.4 % Normal 0.2-2.0 [facility] Comment on above: Performed By: #### T NS #### [facility] [address] [place] [address] Dr. Laila Feliciano EO # 0.0 103/ul Normal 0.0-0.7 [facility] Comment on above: Performed By: #### T NS #### [facility] [address] [place] [address] Dr. Laila Feliciano Eosinophils/100 WBC (Bld) 0.0 % Critically low 0.9-7.0 [facility] Comment on above: Performed By: #### T NS #### [facility] [address] [place] [address] Dr. Laila Feliciano Erythrocyte distribution width (RBC) [Ratio] 17.7 % Critically high 11.0-15.0 [facility] Comment on above: Performed By: #### T NS #### [facility] [address] [place] [address] Dr. Laila Feliciano Hematocrit (Bld) [Volume fraction] 29.2 % Critically low 36.0-48.0 [facility] Comment on above: Performed By: #### T NS #### [facility] [address] [place] [address] Dr. Laila Feliciano Hemoglobin (Bld) [Mass/Vol] 9.0 g/dL Critically low 12.0-16.0 [facility] Comment on above: Performed By: #### T NS #### [facility] [address] [place] [address] Dr. Laila Feliciano IG # 0.04 10e3/ul Critically high 0.00-0.03 [facility] Comment on above: Performed By: #### T NS #### [facility] [address] [place] [address] Dr. Laila Feliciano IG % 0.4 % Normal 0.0-0.5 [facility] Comment on above: Performed By: #### T NS #### [facility] [address] [place] [address] Dr. Laila Feliciano LYMPH # 1.7 103/ul Normal 1.2-3.8 [facility] Comment on above: Performed By: #### T NS #### [facility] [address] [place] [address] Dr. Laila Feliciano Lymphocytes/100 WBC (Bld) 16.8 % Critically low 20.5-60.0 [facility] Comment on above: Performed By: #### T NS #### [facility] [address] [place] [address] Dr. Laila Feliciano MANUAL DIFF REQ NO Normal [facility] Comment on above: Performed By: #### T NS #### [facility] [address] [place] [address] [address] Laila Feliciano MCH (RBC) [Entitic mass] 26.9 pg Normal 26.7-34.0 [facility] Comment on above: Performed By: #### T NS #### [facility] [address] [address] [address] Laila Feliciano MCHC (RBC) [Mass/Vol] 30.8 g/dL Normal 29.9-35.2 [facility] Comment on above: Performed By: #### T NS #### [facility] [address] [place] [address] Dr. Laila Feliciano MCV (RBC) [Entitic vol] 87.2 fL Normal 81.0-99.0 [facility] Comment on above: Performed By: #### T NS #### [facility] [address] [place] [address] Dr. Laila Feliciano MONO # 0.7 103/ul Normal 0.3-0.8 [facility] Comment on above: Performed By: #### T NS #### [facility] [address] [place] [address] Dr. Laila Feliciano Monocytes/100 WBC (Bld) 6.6 % Normal 1.7-12.0 [facility] Comment on above: Performed By: #### T NS #### [facility] [address] [place] [address] Dr. Laila Feliciano NEUT # 7.8 103/ul Critically high 1.4-6.5 [facility] [place] Comment on above: Performed By: #### T NS #### [facility] [address] [place] [address] Dr. Laila Feliciano Neutrophils/100 WBC (Bld) 75.8 % Critically high 43.0-75.0 [facility] Comment on above: Performed By: #### T NS #### [facility] [address] [place] [address] Dr. Laila Feliciano Platelet mean volume (Bld) [Entitic vol] 10.1 fL Normal 9.5-13.5 [facility] Comment on above: Performed By: #### T NS #### [facility] [address] [address] [address] Laila Feliciano PLT 447 103/ul Normal 150-450 [facility] Comment on above: Performed By: #### T NS #### [facility] [address] [place] [address] [address] Laila Feliciano RBC 3.35 106/ul Critically low 4.20-5.[address] [facility] Comment on above: Performed By: #### T NS #### [facility] [address] [place] [address] [address] Laila Feliciano WBC 10.3 103/ul Normal 4.0-11.0 [facility] Comment on above: Performed By: #### T NS #### [facility] [address] [place] [address] Dr. Laila Feliciano OCC BLD IMMUNO SCREENon 11-06 OCCULT BLOOD Negative Normal NEGATIVE [facility] Comment on above: Performed By: #### P RBC #### [facility] [address] [place] [address] Dr. Laila Feliciano PROF CHEM 8 (BAS METB)on Anion gap [Moles/Vol] 13.2 mmol/L Normal [facility] Comment on above: Performed By: #### C BC #### [facility] [address] [place] [address] Dr. Laila Feliciano Calcium [Mass/Vol] 8.3 mg/dL Critically low 8.5-10.1 [facility] Comment on above: Performed By: #### C BC #### [facility] [address] [place] [address] Dr. Laila Feliciano Chloride [Moles/Vol] 105 mmol/L Normal 98-107 [facility] Comment on above: Performed By: #### C BC #### [facility] [address] [place] [address] Dr. Laila Feliciano CO2 [Moles/Vol] 26.2 mmol/L Normal 21.0-32.[address] [facility] Comment on above: Performed By: #### C BC #### [facility] [address] [address] [address] Laila Feliciano Creatinine [Mass/Vol] 2.27 mg/dL Critically high 0.55-1.02 [facility] Comment on above: Performed By: #### C BC #### [facility] [address] [address] [address] Laila Feliciano EGFR-AF PAKISTANI 30 mL/min/1.73m2 Critically low >=60 [facility] Comment on above: Performed By: #### C BC #### [facility] [address] [address] [address] Laila Feliciano EGFR-NON AF PAKISTANI 24 mL/min/1.73m2 Critically low >=60 [facility] Comment on above: Performed By: #### C BC #### [facility] [address] [address] [address] Laila Feliciano Glucose [Mass/Vol] 237 mg/dL Critically high 74-106 T [facility] Comment on above: Performed By: #### C BC #### [facility] [address] [address] [address] Laila Feliciano Potassium [Moles/Vol] 4.4 mmol/L Normal 3.5-5.1 [facility] Comment on above: Performed By: #### C BC #### [facility] [address] [address] [address] Laila Feliciano Sodium [Moles/Vol] 140 mmol/L Normal 136-145 [facility] Comment on above: Performed By: #### C BC #### [facility] [address] [address] [address] Laila Feliciano Urea nitrogen [Mass/Vol] 27.0 mg/dL Critically high 7.0-18.0 [facility] Comment on above: Performed By: #### C BC #### [facility] [address] [address] [address] Laila Feliciano Urea nitrogen/Creatinine [Mass ratio] 11.9 mg/mg Normal [facility] Comment on above: Performed By: #### C BC #### [facility] [address] [address] [address] Laila Feliciano CBC AUTO DIFFon 11-25-2021 BASO # 0.1 103/ul Normal 0.0-0.1 [facility] Comment on above: Performed By: #### P OCGLUC #### [facility] [address] [address] [address] Laila Feliciano Basophils/100 WBC (Bld) 0.5 % Normal 0.2-2.0 [facility] Comment on above: Performed By: #### P OCGLUC #### [facility] [address] [place] [address] Dr. Laila Feliciano EO # 0.0 103/ul Normal 0.0-0.7 [facility] Comment on above: Performed By: #### P OCGLUC #### [facility] [address] [place] [address] Dr. Laila Feliciano Eosinophils/100 WBC (Bld) 0.2 % Critically low 0.9-7.0 [facility] Comment on above: Performed By: #### P OCGLUC #### [facility] [address] [address] [address] Laila Feliciano Erythrocyte distribution width (RBC) [Ratio] 17.8 % Critically high 11.0-15.0 [facility] Comment on above: Performed By: #### P OCGLUC #### [facility] [address] [address] [address] Laila Feliciano Hematocrit (Bld) [Volume fraction] 32.4 % Critically low 36.0-48.0 [facility] Comment on above: Performed By: #### P OCGLUC #### [facility] [address] [address] [address] Laila Feliciano Hemoglobin (Bld) [Mass/Vol] 10.0 g/dL Critically low 12.0-16.0 [facility] Comment on above: Performed By: #### P OCGLUC #### [facility] [address] [address] [address] Laila Feliciano IG # 0.04 10e3/ul Critically high 0.00-0.03 [facility] Comment on above: Performed By: #### P OCGLUC #### [facility] [address] [address] [address] Laila Feliciano IG % 0.3 % Normal 0.0-0.5 [facility] Comment on above: Performed By: #### P OCGLUC #### [facility] [address] [address] [address] Laila Feliciano LYMPH # 1.7 103/ul Normal 1.2-3.8 [facility] Comment on above: Performed By: #### P OCGLUC #### [facility] [address] [address] [address] Laila Feliciano Lymphocytes/100 WBC (Bld) 14.8 % Critically low 20.5-60.0 [facility] Comment on above: Performed By: #### P OCGLUC #### [facility] [address] [address] [address] Laila Feliciano MANUAL DIFF REQ NO Normal [facility] Comment on above: Performed By: #### P OCGLUC #### [facility] [address] [address] [address] Laila Feliciano MCH (RBC) [Entitic mass] 26.8 pg Normal 26.7-34.0 [facility] Comment on above: Performed By: #### P OCGLUC #### [facility] [address] [address] [address] Laila Feliciano MCHC (RBC) [Mass/Vol] 30.9 g/dL Normal 29.9-35.2 [facility] Comment on above: Performed By: #### P OCGLUC #### [facility] [address] [address] [address] Laila Feliciano MCV (RBC) [Entitic vol] 86.9 fL Normal 81.0-99.0 [facility] Comment on above: Performed By: #### P OCGLUC #### [facility] [address] [place] [address] Dr. Laila Feliciano MONO # 0.6 103/ul Normal 0.3-0.8 [facility] Comment on above: Performed By: #### P OCGLUC #### [facility] [address] [address] [address] Laila Feliciano Monocytes/100 WBC (Bld) 5.3 % Normal 1.7-12.0 [facility] Comment on above: Performed By: #### P OCGLUC #### [facility] [address] [address] [address] Laila Feliciano NEUT # 9.0 103/ul Critically high 1.4-6.[address] [facility] Comment on above: Performed By: #### P OCGLUC #### [facility] [address] [address] [address] Laila Feliciano Neutrophils/100 WBC (Bld) 78.9 % Critically high 43.0-75.0 [facility] Comment on above: Performed By: #### P OCGLUC #### [facility] [address] [address] [address] Laila Feliciano Platelet mean volume (Bld) [Entitic vol] 10.0 fL Normal 9.5-13.5 [facility] Comment on above: Performed By: #### P OCGLUC #### [facility] [address] [address] [address] Laila Feliciano PLT 487 103/ul Critically high 150-[address] [facility] Comment on above: Performed By: #### P OCGLUC #### [facility] [address] [address] [address] Laila Feliciano RBC 3.73 106/ul Critically low 4.20-5.40 [facility] Comment on above: Performed By: #### P OCGLUC #### [facility] [address] [address] [address] Laila Feliciano WBC 11.5 103/ul Critically high 4.0-11.[address] [facility] Comment on above: Performed By: #### P OCGLUC #### [facility] [address] [address] [address] Laila Feliciano PROF CHEM 8 (BAS METB)on Anion gap [Moles/Vol] 14.1 mmol/L Normal [facility] Comment on above: Performed By: #### P OCGLUC #### [facility] [address] [address] [address] Laila Feliciano Calcium [Mass/Vol] 8.8 mg/dL Normal 8.5-10.1 [facility] Comment on above: Performed By: #### P OCGLUC #### [facility] [address] [address] [address] Laila Feliciano Chloride [Moles/Vol] 105 mmol/L Normal 98-107 [facility] Comment on above: Performed By: #### P OCGLUC #### [facility] [address] [address] [address] Laila Feliciano CO2 [Moles/Vol] 25.0 mmol/L Normal 21.0-32.[address] [facility] Comment on above: Performed By: #### P OCGLUC #### [facility] [address] [address] [address] Laila Feliciano Creatinine [Mass/Vol] 1.88 mg/dL Critically high 0.55-1.02 [facility] Comment on above: Performed By: #### P OCGLUC #### [facility] [address] [place] [address] Dr. Laila Feliciano EGFR-AF PAKISTANI 37 mL/min/1.73m2 Critically low >=60 [facility] Comment on above: Performed By: #### P OCGLUC #### [facility] [address] [address] [address] Laila Feliciano EGFR-NON AF PAKISTANI 30 mL/min/1.73m2 Critically low >=60 [facility] Comment on above: Performed By: #### P OCGLUC #### [facility] [address] [address] [address] Laila Feliciano Glucose [Mass/Vol] 178 mg/dL Critically high 74-106 [facility] Comment on above: Performed By: #### P OCGLUC #### [facility] [address] [address] [address] Laial Feliciano Potassium [Moles/Vol] 4.1 mmol/L Normal 3.5-5.1 [facility] Comment on above: Performed By: #### P OCGLUC #### [facility] [address] [place] [address] Dr. Laila Feliciano Sodium [Moles/Vol] 140 mmol/L Normal 136-145 [facility] Comment on above: Performed By: #### P OCGLUC #### [facility] [address] [place] [address] Dr. Laila Feliciano Urea nitrogen [Mass/Vol] 23.0 mg/dL Critically high 7.0-18.0 [facility] Comment on above: Performed By: #### P OCGLUC #### [facility] [address] [place] [address] Dr. Laila Feliciano Urea nitrogen/Creatinine [Mass ratio] 12.2 mg/mg Normal [facility] Comment on above: Performed By: #### P OCGLUC #### [facility] [address] [place] [address] Dr. Laila Feliciano CBC AUTO DIFFon 11-21-2021 BASO # 0.1 103/ul Normal 0.0-0.1 [facility] Comment on above: Performed By: #### P OCGLUC #### [facility] [address] [place] [address] Dr. Laila Feliciano Basophils/100 WBC (Bld) 0.5 % Normal 0.2-2.0 [facility] Comment on above: Performed By: #### P OCGLUC #### [facility] [address] [place] [address] Dr. Laila Feliciano EO # 0.0 103/ul Normal 0.0-0.7 [facility] Comment on above: Performed By: #### P OCGLUC #### [facility] [address] [place] [address] Dr. Laila Feliciano Eosinophils/100 WBC (Bld) 0.0 % Critically low 0.9-7.0 [facility] Comment on above: Performed By: #### P OCGLUC #### [facility] [address] [place] [address] Dr. Laila Feliciano Erythrocyte distribution width (RBC) [Ratio] 18.0 % Critically high 11.0-15.0 [facility] Comment on above: Performed By: #### P OCGLUC #### [facility] [address] [place] [address] Dr. Laila Feliciano Hematocrit (Bld) [Volume fraction] 32.9 % Critically low 36.0-48.0 [facility] Comment on above: Performed By: #### P OCGLUC #### [facility] [address] [place] [address] Dr. Laila Feliciano Hemoglobin (Bld) [Mass/Vol] 10.1 g/dL Critically low 12.0-16.0 [facility] Comment on above: Performed By: #### P OCGLUC #### [facility] [address] [place] [address] Dr. Laila Feliciano IG # 0.06 10e3/ul Critically high 0.00-0.03 [facility] Comment on above: Performed By: #### P OCGLUC #### [facility] [address] [place] [address] Dr. Laila Feliciano IG % 0.4 % Normal 0.0-0.5 [facility] Comment on above: Performed By: #### P OCGLUC #### [facility] [address] [place] [address] Dr. Laila Feliciano LYMPH # 1.0 103/ul Critically low 1.2-3.8 [facility] Comment on above: Performed By: #### P OCGLUC #### [facility] [address] [place] [address] Dr. Laila Feliciano Lymphocytes/100 WBC (Bld) 6.2 % Critically low 20.5-60.0 [facility] Comment on above: Performed By: #### P OCGLUC #### [facility] [address] [place] [address] Dr. Laila Feliciano MANUAL DIFF REQ NO Normal [facility] Comment on above: Performed By: #### P OCGLUC #### [facility] [address] [place] [address] Dr. Laila Feliciano MCH (RBC) [Entitic mass] 26.4 pg Critically low 26.7-34.0 [facility] Comment on above: Performed By: #### P OCGLUC #### [facility] [address] [address] [address] Laila Feliciano MCHC (RBC) [Mass/Vol] 30.7 g/dL Normal 29.9-35.2 [facility] Comment on above: Performed By: #### P OCGLUC #### [facility] [address] [address] [address] Laila Feliciano MCV (RBC) [Entitic vol] 86.1 fL Normal 81.0-99.0 [facility] Comment on above: Performed By: #### P OCGLUC #### [facility] [address] [place] [address] Dr. Laila Feliciano MONO # 0.5 103/ul Normal 0.3-0.8 [facility] Comment on above: Performed By: #### P OCGLUC #### [facility] [address] [place] [address] Dr. Laila Feliciano Monocytes/100 WBC (Bld) 3.2 % Normal 1.7-12.0 [facility] Comment on above: Performed By: #### P OCGLUC #### [facility] [address] [place] [address] Dr. Laila Feliciano NEUT # 13.9 103/ul Critically high 1.4-6.5 [facility] Comment on above: Performed By: #### P OCGLUC #### [facility] [address] [place] [address] Dr. Laila Feliciano Neutrophils/100 WBC (Bld) 89.7 % Critically high 43.0-75.0 [facility] Comment on above: Performed By: #### P OCGLUC #### [facility] [address] [place] [address] Dr. Laila Feliciano Platelet mean volume (Bld) [Entitic vol] 10.5 fL Normal 9.5-13.5 [facility] Comment on above: Performed By: #### P OCGLUC #### [facility] [address] [address] [address] Laila Feliciano PLT 491 103/ul Critically high 150-450 [facility] Comment on above: Performed By: #### P OCGLUC #### [facility] [address] [address] [address] Laila Feliciano RBC 3.82 106/ul Critically low 4.20-5.[address] [facility] Comment on above: Performed By: #### P OCGLUC #### [facility] [address] [address] [address] Laila Feliciano WBC 15.5 103/ul Critically high 4.0-11.[address] [facility] Comment on above: Performed By: #### P OCGLUC #### [facility] [address] [address] ABD/PELVIS WO CONon 11-21 CT ABD/PELVIS WO CON EXAMINATION: CT ABD/PELVIS WO CON, 11/21/2021 11:57 AM EDT HISTORY: Rectal prolapse and possible bleeding. COMPARISON: CT dated 08/07/2021 TECHNIQUE: CT scan of the abdomen and pelvis was performed without IV contrast. CT dose reduction technique was used, including Automated Exposure Control. FINDINGS: The lung bases are clear. Lower mediastinal structures are stable in appearance. The liver shows stable enlargement with mild central pneumobilia after cholecystectomy. 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 The adrenal glands are normal. Kidneys are symmetric in size and show no calcifications or hydronephrosis. The large and small bowel are normal caliber, but there is diffuse wall thickening in sigmoid and rectum. There is a partially imaged prolapse of the rectum. Pelvic organs are grossly normal. There is an IUD in the endometrial canal. Urinary bladder is minimally filled but is grossly normal. Osseous structures are stable in appearance. IMPRESSION: Partially imaged rectal prolapse. The diffuse wall thickening of the sigmoid and rectum is of uncertain etiology and clinical significance. Other stable findings as above. Electronically authenticated by: RITESH GRAFF Date: 2021-11-21 13:10 Normal [facility] PROF CHEM 8 (BAS METB)on Anion gap [Moles/Vol] 15.3 mmol/L Normal [facility] Comment on above: Performed By: #### T NS #### [facility] [address] [address] [address] Laila Feliciano Calcium [Mass/Vol] 9.1 mg/dL Normal 8.5-10.1 [facility] Comment on above: Performed By: #### T NS #### [facility] [address] [address] [address] Laila Feliciano Chloride [Moles/Vol] 100 mmol/L Normal 98-107 [facility] Comment on above: Performed By: #### T NS #### [facility] [address] [address] [address] Laila Feliciano CO2 [Moles/Vol] 23.1 mmol/L Normal 21.0-32.[address] [facility] Comment on above: Performed By: #### T NS #### [facility] [address] [address] [address] Laila Feliciano Creatinine [Mass/Vol] 2.36 mg/dL Critically high 0.55-1.02 [facility] Comment on above: Performed By: #### T NS #### [facility] [address] [address] [address] Laila Feliciano EGFR-AF PAKISTANI 28 mL/min/1.73m2 Critically low >=60 [facility] Comment on above: Performed By: #### T NS #### [facility] [address] [address] [address] Laila Feliciano EGFR-NON AF PAKISTANI 23 mL/min/1.73m2 Critically low >=60 [facility] Comment on above: Performed By: #### T NS #### [facility] [address] [address] [address] Laila Feliciano Glucose [Mass/Vol] 431 mg/dL Critically high 74-106 [facility] Comment on above: Performed By: #### T NS #### [facility] [address] [address] [address] Laila Feliciano Potassium [Moles/Vol] 4.4 mmol/L Normal 3.5-5.1 [facility] Comment on above: Performed By: #### T NS #### [facility] [address] [address] [address] Laila Feliciano Sodium [Moles/Vol] 134 mmol/L Critically low 136-145 [facility] Comment on above: Performed By: #### T NS #### [facility] [address] [address] [address] Laila Feliciano Urea nitrogen [Mass/Vol] 26.0 mg/dL Critically high 7.0-18.0 [facility] Comment on above: Performed By: #### T NS #### [facility] [address] [place] [address] Dr. Laila Feliciano Urea nitrogen/Creatinine [Mass ratio] 11.0 mg/mg Normal [facility] Comment on above: Performed By: #### T NS #### [facility] [address] [place] [address] Dr. Laila Feliciano PROTIMEon 11-21-2021 INR Coag (PPP) [Relative time] 1.05 {INR} Normal [facility] Comment on above: Performed By: #### P RBC #### [facility] [address] [place] [address] Dr. Laila Feliciano INR GUIDELINES SEE BELOW Normal [facility] Comment on above: Result Comment: SIDNEY RED INR: 2.0 - 3.0 CONDITIONS NOT LISTED BELOW 2.5 - 3.5 FOR PROSTHETIC HEART VALVE REPLACEMENT 2.5 - 3.5 RECURRENT THROMBOSIS Performed By: #### P RBC #### [facility] [address] [place] [address] Dr. Laila Feliciano PT Coag (PPP) [Time] 11.3 s Normal 9.0-11.6 [facility] Comment on above: Performed By: #### P RBC #### [facility] [address] [place] [address] Dr. Laila Feliciano PTTon 11-21-2021 aPTT Coag (Bld) [Time] s Critically high 22.3-36. 2 [facility] Comment on above: Performed By: #### P RBC #### [facility] [address] [place] [address] Dr. Laila Feliciano Provider Letteron 11-19-2021 Provider Letter (Inserted Image. Allison ble to display) November 19, 2021 [place] [address] PRITESH RAZA 1985 Dear Ms. Raza, We have been trying to reach you to rescheduled an upcoming appointment that you have scheduled with Dr. Ag on 12/01/2021. Your appointment will need to be rescheduled since he will be out of the office that day. Please contact the office at the number listed below to get this appointment rescheduled at your earliest convenience. Thank you for your prompt attention to this matter. Sincerely, [facility] [employer] [facility], [place] [address] Normal [facility] RAD - CT Reporton 10-30-2021 RAD - CT Report [id number] Normal [facility] XR FOOT RIGHT (MIN 3 VIEWS)o n 10-24-2021 XR FOOT RIGHT (MIN 3 VIEWS) EXAMINATION: THREE XRAY VIEWS OF THE RIGHT FOOT 10/24/2021 8:41 pm COMPARISON: None HISTORY: ORDERING SYSTEM PROVIDED HISTORY: dorsal foot pain, injury TECHNOLOGIST PROVIDED HISTORY: dorsal foot pain, injury Reason for Exam: Dorsal foot pain. Car door slammed shut on her right foot FINDINGS: There is mild calcaneal spurring. No evidence of an acute fracture or dislocation. Ankle mortise is symmetric. IMPRESSION: No evidence of an acute fracture. Interpreted by: Uday Segovia MD Signed by: Uday Segovia MD 10/24/21 Final result Normal [facility] Ambulatory Visit Summaryon 0 09-24-2021 Ambulatory Visit Summary PRITESH RAZA :1985 Visit Date:09/24/2021 Ambulatory Visit Instructions Your Diagnosis Flank pain Gross hematuria History of kidney stones Hematemesis Hydronephrosis of right kidney Incomplete bladder emptying Tests Performed Urnls Dip Stick Auto w/o Microscopy POC 01174 Your Care Team Attending Physician - Gulshan AG MD Primary Care Physician - Jalyn HOLT DO This Is Your Medications List Contact prescribing physician if questions or concerns HYDROmorphone (Dilaudid) NIFEdipine acetaminophen-hydrocodone (Vicodin 500 mg-5 mg Tab) alprazolam (Xanax 1 mg Tab) amitriptyline bupivacaine (bupivacaine 0.1%-NaCl 0.9% injectable solution) carvedilol (carvedilol 12.5 mg Tab) darifenacin (Enablex) ergocalciferol (ergocalciferol 50,000 intl units Cap) fenofibrate (TriCor 48 mg Tab) furosemide (Lasix 40 mg Tab) heparin hydrOXYzine (hydrOXYzine hydrochloride 50 mg oral tablet) hydrochlorothiazide-losar henry (hydrochlorothiazide-losa rtan 12.5 mg-50 mg Tab) indomethacin (indomethacin 25 mg Cap) insulin aspart (NovoLOG 100 units/mL injectable solution) insulin isophane-insulin regular (Humulin 70/30 10 mL Injection-Insulin) lisinopril (lisinopril 20 mg Tab) montelukast (Singulair 10 mg Tab) ondansetron (Zofran ODT 4 mg Tab-Dis) pancrelipase (Creon 12,000 units oral delayed release capsule) pancrelipase (Pancrelipase 27,000 units-5,000 units-17,000 units oral delayed release capsule) polyethylene glycol 3350 (MiraLax) promethazine (promethazine 25 mg Supp) quetiapine (SEROquel 50 mg Tab) senna (senna 8.6 mg Tab) sertraline (Zoloft) tizanidine (Zanaflex 4 mg Tab) zolpidem (Ambien 10 mg Tab) Procedures Performed Acute renal failure, Adenoidectomy, appendicitis removal, Cholecystectomy, Diabetes mellitus type 2, foot surgery, gallblader removed, Hemangioma of liver, Hemoptysis, History of shingles, Hypertension, Implantable venous access port, knee cement, Large bowel resection, Lower GI series, Pancreatectomy, Splenectomy, Tonsillectomy. Discharge Vitals Heart Rate (Peripheral) 65 Respiratory Rate 16 Blood Pressure 185/125 Height 173 cm Height 173.0 cm Weight 73 kg Weight 73.0 kg BMI 24.39 What to do next Scheduled Follow-Up Appointments Wednesday 1:15 PM EDT With: Gulshan AG MD Where: [facility] Mamie Pompa [facility] Patient Educationon 09-25-19 Patient Education Urology Hematuria, Adult Hematuria is blood in the urine. Blood may be visible in the urine, or it may be identified with a test. This condition can be caused by infections of the bladder, urethra, kidney, or prostate. Other possible causes include: ? Kidney stones. ? Cancer of the urinary tract. ? Too much calcium in the urine. ? Conditions that are passed from parent to child (inherited conditions). ? Exercise that requires a lot of energy. Infections can usually be treated with medicine, and a kidney stone usually will pass through your urine. If neither of these is the cause of your hematuria, more tests may be needed to identify the cause of your symptoms. It is very important to tell your health care provider about any blood in your urine, even if it is painless or the blood stops without treatment. Blood in the urine, when it happens and then stops and then happens again, can be a symptom of a very serious condition, including cancer. There is no pain in the initial stages of many urinary cancers. Follow these instructions at home: Medicines ? Take yvkq-chg-hftvnxk and prescription medicines only as told by your health care provider. ? If you were prescribed an antibiotic medicine, take it as told by your health care provider. Do not stop taking the antibiotic even if you start to feel better. Eating and drinking ? Drink enough fluid to keep your urine clear or pale yellow. It is recommended that you drink 3?4 quarts (2.8?3.8 L) a day. If you have been diagnosed with an infection, it is recommended that you drink cranberry juice in addition to large amounts of water. ? Avoid caffeine, tea, and carbonated beverages. These tend to irritate the bladder. ? Avoid alcohol because it may irritate the prostate (men). General instructions ? If you have been diagnosed with a kidney stone, follow your health care provider's instructions about straining your urine to catch the stone. ? Empty your bladder often. Avoid holding urine for long periods of time. ? If you are female: ? After a bowel movement, wipe from front to back and use each piece of toilet paper only once. ? Empty your bladder before and after sex. ? Pay attention to any changes in your symptoms. Tell your health care provider about any changes or any new symptoms. ? It is your responsibility to get your test results. Ask your health care provider, or the department performing the test, when your results will be ready. ? Keep all follow-up visits as told by your health care provider. This is important. Contact a health care provider if: ? You develop back pain. ? You have a fever. ? You have nausea or vomiting. ? Your symptoms do not improve after 3 days. ? Your symptoms get worse. Get help right away if: ? You develop severe vomiting and are unable take medicine without vomiting. ? You develop severe pain in your back or abdomen even though you are taking medicine. ? You pass a large amount of blood in your urine. ? You pass blood clots in your urine. ? You feel very weak or like you might faint. ? You faint. Summary ? Hematuria is blood in the urine. It has many possible causes. ? It is very important that you tell your health care provider about any blood in your urine, even if it is painless or the blood stops without treatment. ? Take zhqs-ubl-ivzgahs and prescription medicines only as told by your health care provider. ? Drink enough fluid to keep your urine clear or pale yellow. This information is not intended to replace advice given to you by your health care provider. Make sure you discuss any questions you have with your health care provider. Document Released: 05/24/2006 Document Revised: 10/18/2019 Document Reviewed: 06/26/2017 [employer] Patient Education ? 2019 [employer] [facility] Urology Office/Clinic Noteon 09-24-2021 Urology Office/Clinic Note Chief Complaint F/u HPI Staff Pt is here for f/u. Previous dx of gross hematuria, left flank pain, poor urinary stream, kidney stones and hematemesis. Pt has recently had a bowel resection at [facility]. After being home for several days she had to return for a procedure and they cathed her empty her bladder and later had to cath her again stating that she needed to f/u with her urologist. She states that there was a point where she was having difficulty starting her stream also. Dysuria: no Incomplete bladder emptying: pt states she feels she is emptying now due to double voiding Hematuria: no Frequency: pt states that her other doctors have really raised the amount of fluid she is drinking and she feels she is going an appropriate amount of times for that Urgency: no Nocturia: does not get up every night Stream: states she has a good stream Leaking: no Post void dripping: no Wearing pads/ Depends: no Urge incontinence: no Stress incontinence: no Incontinence without Sensory Awareness: no Abdominal pain: no Flank pain: every once in a while she has a bit on the right Sexual complaints: no History of Present Illness I have reviewed and verified the staff HPI to be accurate for this encounter. Review of Systems PHQ Score Initial Depression Screen Score: 0 ROS - Provider Constitutional: denies weight loss, denies hot flashes. Eyes: denies eye problems. Gastrointestinal: denies nausea, denies vomiting. Cardiovascular: denies chest pain or angina. Integumentary: no dryness Musculoskeletal: denies musculoskeletal symptoms. ENMT: denies otolaryngeal symptoms. Respiratory: no shortness of breath. Heme/Lymph: denies easy bleeding tendency, denies easy bruising tendency. Psychiatric: no confusion, no anxiety. Genitourinary: denies vaginal discharge, denies incontinence, denies dysuria, denies hematuria, denies urinary frequency, denies amenorrhea, denies menorrhagia, denies abnormal bleeding, denies pelvic pain, denies genital sores, and denies decreased libido. Physical Exam Vitals & Measurements HR: 65(Peripheral) RR: 16 BP: 185/125 HT: 173 cm HT: 173.0 cm WT: 73 kg WT: 73.0 kg BMI: 24.39 General Appearance: alert , no acute distress, well nourished, well developed female. Genitourinary: bladder nonpalpable, no flank pain. Assessment/Plan 1. Flank pain (R10.9: Unspecified abdominal pain) every once in a while a bit on the right 2. Gross hematuria (R31.0: Gross hematuria) Pt previously had large amounts of visible blood, but UA today was negative. Pt did not get a Cysto done. 3. History of kidney stones (Z87.442: Personal history of urinary calculi) CT done 08/18/2021 showed right sided stone. Pt states that they did a recent CT last week at [facility]. 4. Hematemesis (K92.0: Hematemesis) Ongoing for the past 3mos. 5. Hydronephrosis of right kidney (N13.30: Unspecified hydronephrosis) Ct done 08/18/2021 showed right hydronephrosis and hydroureter. Pt states that they did a recent CT last week at [facility] but we cannot view it now. 6. Incomplete bladder emptying (R33.9: Retention of urine, unspecified) PVR in office today showed 354mL. During PVR pt stated she felt as if she had to empty her bladder. Discussed with pt that she is going to need to start doing CIC 2x a day for roughly a month. Discussed with pt that importance of CIC to make sure her bladder is empty all the way. Discussed with pt to CIC first thing in the morning and before she goes to bed. Discussed with pt to keep a log of her volumes. in 2 weeks pt will call and gives her volumes to see if we need to adjust. If pt has any concerns she can contact our office. Pt understands. Follow-up With When Contact Information KIMBERLI STYLES, TANISHA Elkins In 2 months 11/24/2021 EDT [facility] [address], [facility] [place] [address] [phone] Additional Instructions: Patient Education Hematuria, Adult I, Karely Soto_, personally scribed for Dr. Ag on 09/24/2021 14:44:18. . Documentation recorded by the scribe, Karely Soto, accurately reflects the services(s) I performed and decisions made by me. Problem List/Past Medical History Ongoing Chronic pancreatitis Flank pain Gross hematuria Hematemesis History of kidney stones Hydronephrosis of right kidney Urinary problem Historical Diabetes type 2, controlled Hypercholesteremia Migraine Pancreatitis Procedure/Surgical History Acute renal failure, Adenoidectomy, appendicitis removal, Cholecystectomy, Diabetes mellitus type 2, foot surgery, gallblader removed, Hemangioma of liver, Hemoptysis, History of shingles, Hypertension, Implantable venous access port, knee cement, Large bowel resection, Lower GI series, Pancreatectomy, Splenectomy, Tonsillectomy. Medications Ambien 10 mg Tab, 10 mg= 1 tab(s), Oral, Once a day (at bedtime), PRN amitriptyline, 50 mg, Oral (more content not included)... Normal [facility] Comment on above: Result Comment: Elec tronically Signed By: Gulshan AG MD\.br\Date and Time Signed: 09/24/21 14:52 EDT\.br\Electronically Co-Signed By: Karely Soto MA\.br\Date and Time Co-Signed: 09/24/21 14:44 EDT Glucose - FINGER STICKon Glucose [Mass/Vol] 199 mg/dL [facility] Other A1C HEMOGLOBINon 08-27-2021 HbA1c (Bld) [Mass fraction] 7.2 % [facility] Other Glucose - FINGER STICKon Glucose [Mass/Vol] 242 mg/dL [facility] Other HbA1c (Bld) [Mass fraction]o n 08-27-2021 A1C HEMOGLOBIN [facility] Other CBC W/DIFFon 08-13-2021 ABS IMM GRANS 0.0 10*3/uL Normal 0.0-0.2 [facility] Comment on above: Performed By: #### 5 0103 #### [facility] [address] [place] [address], [facility] ABS NEUTROPHILS 8.3 10*3/uL High 1.6-7.6 [facility] Comment on above: Performed By: #### 5 0103 #### [facility] [address] [place] [address], [facility] Basophils (Bld) [#/Vol] 0.1 10*3/uL Normal 0.0-0.2 [facility] Comment on above: Performed By: #### 5 0103 #### [facility] [address] [place] [address], [facility] Basophils/100 WBC (Bld) 0.7 % Normal 0.0-1.0 [facility] Comment on above: Performed By: #### 5 0103 #### [facility] [address] [place] [address], [facility] Eosinophils (Bld) [#/Vol] 0.0 10*3/uL Normal 0.0-0.5 [facility] Comment on above: Performed By: #### 5 0103 #### [facility] [address] [place] [address], [facility] Eosinophils/100 WBC (Bld) 0.1 % Normal 0.0-6.0 [facility] Comment on above: Performed By: #### 5 0103 #### [facility] [address] Erythrocyte distribution width (RBC) [Ratio] 17.1 % High 11.5-15.0 [facility] Comment on above: Performed By: #### 5 0103 #### [facility] [address] Hematocrit (Bld) [Volume fraction] 31.1 % Low 36.0-45.0 [facility] Comment on above: Performed By: #### 5 0103 #### [facility] [address] Hemoglobin (Bld) [Mass/Vol] 9.3 g/dL Low 12.0-15.0 [facility] Comment on above: Performed By: #### 5 0103 #### [facility] [address] [place] [address], [facility] IMMATURE GRANS 0.3 % Normal 0.0-1.0 [facility] Comment on above: Performed By: #### 5 3 #### [facility] [address] [place] [address], [facility] Lymphocytes (Bld) [#/Vol] 2.3 10*3/uL Normal 1.2-4.0 [facility] Comment on above: Performed By: #### 5 0103 #### [facility] [address] [place] [address], [facility] Lymphocytes/100 WBC (Bld) 20.4 % Normal 20.0-45.0 [facility] Comment on above: Performed By: #### 5 0103 #### [facility] [address] [facility] [place] [address], [facility] MCH (RBC) [Entitic mass] 25.1 pg Low 27.0-33.0 [facility] Comment on above: Performed By: #### 5 0103 #### [facility] [address] [facility] [place] [address], [facility] MCHC (RBC) [Mass/Vol] 29.9 g/dL Low 32.0-35.0 [facility] Comment on above: Performed By: #### 5 0103 #### [facility] [address] [facility] [place] [address], [facility] MCV (RBC) [Entitic vol] 83.8 fL Normal 82.0-98.0 [facility] Comment on above: Performed By: #### 5 0103 #### [facility] [address] [facility] [place] [address], [facility] Monocytes (Bld) [#/Vol] 0.7 10*3/uL Normal 0.1-1.0 [facility] Comment on above: Performed By: #### 5 3 #### [facility] [address] [place] [address], [facility] MONOS 5.9 % Normal 5.0-12.0 [facility] Comment on above: Performed By: #### 5 3 #### [facility] [address] [place] [address], [facility] Neutrophils/100 WBC (Bld) 72.6 % High 40.0-72.0 [facility] Comment on above: Performed By: #### 5 0103 #### [facility] [address] [place] [address], [facility] Nucleated RBC/100 WBC (Bld) [Ratio] 0 % Normal 0-0 [facility] Comment on above: Performed By: #### 5 3 #### [facility] [address] [place] [address], [facility] PLAT CNT 411 10*3/uL High 150-400 [facility] Comment on above: Performed By: #### 5 0103 #### [facility] [address] [place] [address], [facility] RBC (Bld) [#/Vol] 3.71 10*6/uL Low 3.80-5.00 [facility] Comment on above: Performed By: #### 5 0103 #### [facility] [address] [place] [address], [facility] WBC (Bld) [#/Vol] 11.47 10*3/uL High 4.00-10.60 [facility] Comment on above: Performed By: #### 5 0103 #### [facility] [address] [place] [id number], [facility] COMP METABOLIC PANELon 08-13 Albumin [Mass/Vol] 4.4 g/dL Normal 3.5-5.7 [facility] Comment on above: Performed By: #### 3 6900, [id number] #### [facility] [address] [place] [id number], [facility] ALKALINE PHOSPH 113 IU/L High 34-104 [facility] Comment on above: Performed By: #### 3 6900, 89616 #### [facility] [address] [place] [id number], [facility] ALT [Catalytic activity/Vol] 23 U/L Normal 7-52 [facility] Comment on above: Performed By: #### 3 6900, [id number] #### [facility] [address] [place] [address], [place] AST [Catalytic activity/Vol] 22 U/L Normal 13-39 [facility] Comment on above: Performed By: #### 3 6900, 10641 #### [facility] [address] [place] [address], [place] Bilirubin [Mass/Vol] 0.3 mg/dL Normal 0.3-1.0 [facility] Comment on above: Performed By: #### 3 6900, 14975 #### [facility] [address] [place] [address], [place] Calcium [Mass/Vol] 9.3 mg/dL Normal 8.6-10.3 [facility] Comment on above: Performed By: #### 3 6900, 01066 #### [facility] [address] [place] [address], [facility] Chloride [Moles/Vol] 103 mmol/L Normal 98-107 [facility] Comment on above: Performed By: #### 3 6900, 91067 #### [facility] [address] [place] [address], [place] CO2 [Moles/Vol] 25 mmol/L Normal 21-31 [facility] Comment on above: Performed By: #### 3 6900, 37943 #### [facility] [address] [place] [address], [place] Creatinine [Mass/Vol] 1.68 mg/dL High 0.60-1.20 [facility] Comment on above: Performed By: #### 3 6900, 89855 #### [facility] [address] [place] [address], [place] eGFR- 42 ml/min/1.73sq m Abnormal >60 [facility] Comment on above: Performed By: #### 3 6900, 88843 #### [facility] [address] [place] [address], [facility] eGFR- non- 35 ml/min/1.73sq m Abnormal >60 [facility] Comment on above: Performed By: #### 3 690, 53942 #### [facility] [address] [place] [address], [place] Glucose [Mass/Vol] 163 mg/dL High 70-100 [facility] Comment on above: Performed By: #### 3 6900, 82383 #### [facility] [address] [facility] [place] [address], [facility] Potassium [Moles/Vol] 5.0 mmol/L Normal 3.5-5.1 [facility] Comment on above: Performed By: #### 3 690, 17474 #### [facility] [address] [facility] [place] [address], [facility] Protein [Mass/Vol] 7.7 g/dL Normal 6.0-8.3 [facility] Comment on above: Performed By: #### 3 6900, 02450 #### [facility] [address] [place] [address], [facility] Sodium [Moles/Vol] 134 mmol/L Low 136-145 [facility] Comment on above: Performed By: #### 3 6900, 75084 #### [facility] [address] [place] [address], [facility] Urea nitrogen [Mass/Vol] 17 mg/dL Normal 7-25 [facility] Comment on above: Performed By: #### 3 690, 58519 #### [facility] [address] [place] [address], [facility] CT RENAL SURVEYon 08-13-2021 CT RENAL SURVEY [facility] Department of Radiology [address] [place] [id number] Patient Name: PRITESH RAZA : 1985 Sex: F Age: Race: White Pt. Location: [facility] Patient Status: E Ordered Date: 08/13/2021 12:05:00 PM Completed Date: 08/13/2021 12:41 PM Requesting Provider: JESSE VOGT Attending Provider: JESSE VOGT Report Copy To: Signs & Symptoms: Abdominal Pain(specify) History: See Comments Comments: Renal Stones Exam: CT RENAL SURVEY CT RENAL SURVEY 08/13/2021 12:42 PM SIGN AND SYMPTOMS: Abdominal Pain(specify) TECHNOLOGIST COMMENTS: right lower quadrant abdominal pain and vomiting for one and a half weeks QUESTION FOR RADIOLOGIST: Renal Stones TECHNIQUE: CT abdomen and pelvis without intravenous contrast. Multiplanar reformats were performed. Appropriate CT dose lowering techniques were utilized. Contrast: Protocol: Axial CT images from the lung bases to the pubic symphysis were performed without intravenous contrast. COMPARISON: November 09, 2013 FINDINGS: Lung bases show no evidence of acute disease. There is a 4 mm pleural-based noncalcified nodule left lower lobe image 1. Bony structures are age compatible. No acute or destructive disease. Gallbladder has been removed. Small focus of pneumobilia likely due to incompetent sphincter. Prior pancreatectomy and splenectomy. Adrenal glands are grossly normal for noncontrast study. Dictation no evidence of hydronephrosis or renal lithiasis. 1.2 cm intermediate low-density lesion ascending from the lateral aspect lower pole right kidney. Follow-up ultrasound suggested. Not definitely seen on previous. Large volume retained stool content throughout the colon. Suspected mobile cecum and redundant sigmoid colon. The appendix is not discretely identified however there is no evidence of pericecal inflammation. No evidence of fecal impaction or small bowel distention. Urinary bladder appears grossly normal. Uterus is retained. IUD in place. Right ovary is mildly enlarged with suspected cyst measuring 3.4 cm. Presumably physiologic given patient's age. Normal size aorta. There are small mesenteric and periaortic lymph nodes. No abnormally enlarged lymph nodes identified. IMPRESSION: * Large volume retained stool content suggesting significant constipation. No impaction or small bowel distention. * Prominent right ovary with potential cyst. No free fluid. * Appendix is not discretely identified however there is no evidence of pericecal inflammation. Electronically signed: Vernon Houser. Transcribed by: [email or web address], User Resident: VERNON HOUSER Electronically Signed by: VERNON HOUSER @ 08/13/2021 01:02 PM I personally read this/these film(s) with this resident Normal [facility] Comment on above: Order Comment: Renal Stones LACTATE BLOODon 08-13-2021 Lactate [Moles/Vol] 1.4 mmol/L Normal .5-2.2 [facility] Comment on above: Performed By: #### 1 0054 #### [address] LIPASE BLOODon 08-13-2021 LIPASE 6 Units/L Low 11-82 [facility] Comment on above: Performed By: #### 3 6901, [address] #### [place] [address], [facility] POC URINE PREGNANCYon 2021 Beta HCG ( test) Ql (U) Negative Normal NEGATIVE [facility] Comment on above: Result Comment: Perf ormed in Emergency Department. Performed By: #### 8 0580 #### [address] US PELVICon 08-13-2021 US PELVIC [facility] Department of Radiology [address] [place] [address] [id number] Patient Name: PRITESH RAZA : 1985 Sex: F Age: Race: White Pt. Location: [facility] Patient Status: E Ordered Date: 08/13/2021 1:10:00 PM Completed Date: 08/13/2021 02:02 PM Requesting Provider: JESSE VOGT Attending Provider: JESSE VOGT Report Copy To: Signs & Symptoms: Pelvic Pain History: See Comments Comments: Torsion Exam: US PELVIC CLINICAL INFORMATION: Ovarian torsion COMPARISON: CT obtained today. PROCEDURE: Transabdominal ultrasound imaging of the pelvis performed. FINDINGS: Intrauterine device noted. The uterus measures 8.4 x 3.4 x 4.1 cm in greatest dimension. The endometrium is difficult to delineate given intrauterine device. The right ovary measures 5.3 x 4.6 x 3.2 cm. This contains some anechoic and hypoechoic foci. The left ovary measures 3.7 x 1.7 x 2.8 cm. Normal Doppler flow. IMPRESSION: 1. Mildly prominent appearance of the right ovary with internal Doppler flow noted, no evidence of torsion. There may be some follicular changes in the right ovary. Electronically signed: Poly Banks. Transcribed by: [email or web address], User Resident: Electronically Signed by: POLY BANKS @ 08/13/2021 02:09 PM Normal [facility] Comment on above: Order Comment: Torsi on CBC Auto Differentialon 06-08 Absolute Eos # 0.00 [facility]al [facility] Absolute Immature Granulocyte 0.12 [facility] Absolute Lymph # 3.15 [facility] Absolute Howell # 1.09 [facility] Basophils (Bld) [#/Vol] 0.00 10*3/uL [facility] Basophils/100 WBC (Bld) 0 % 0 - 2 % [facility] Differential Type NOT REPORTED [facility] Eosinophils/100 WBC (Bld) 0 % Low 1 - 4 % [facility] Hematocrit (Bld) [Volume fraction] 19.2 % Critically low 36.3 - 47.1 % [facility] Hemoglobin.gastrointes tinal spec 1 Ql (Stl) 5.8 g/dL Critically low 11.9 - 15.1 g/dL [facility] Immature granulocytes/100 WBC (Bld) 1 % High 0 [facility] Interpretation and review of laboratory results Abnormal [facility] Lymphocytes/100 WBC (Bld) 26 % 24 - 43 % [facility] MCH (RBC) [Entitic mass] 28.3 pg 25.2 - 33.5 pg [facility] MCHC (RBC) [Mass/Vol] 30.2 g/dL 28.4 - 34.8 g/dL [facility] MCV (RBC) [Entitic vol] 93.7 fL 82.6 - 102.9 fL [facility] Monocytes/100 WBC (Bld) 9 % 3 - 12 % [facility] Morphology Tc (Bld) [Interp] ANISOCYTOSIS PRESENT [facility] h Morphology Tc (Bld) [Interp] SCHISTOCYTES [facility] NRBC Automated 2.6 High 0.0 per 100 WBC [facility] Platelet distribution width (Bld) [Ratio] 15.9 % High 11.8 - 14.4 % [facility] Platelet Estimate NOT REPORTED [facility] Platelet mean volume (Bld) [Entitic vol] 10.4 fL 8.1 - 13.5 fL [facility] Platelets (Bld) [#/Vol] 365 10*3/uL [facility] RBC (Bld) [#/Vol] 2.05 10*6/uL Low 3.95 - 5.11 m/uL [facility] RBC (Bld) [#/Vol] NOT REPORTED [facility] Segmented neutrophils/100 WBC (Bld) 64 % 36 - 65 % [facility] Segs [facility]ld[facility] [#/Vol] 12.1 10*3/uL High [facility] WBC (Bld) [#/Vol] NOT REPORTED [facility] Drug screen multi urineon Amphetamine Screen, Ur Negative NEGATIVE [facility] Barbiturate Screen, Ur Negative NEGATIVE [facility] Benzodiazepine Screen, Urine Positive Abnormal NEGATIVE [facility] Buprenorphine Urine Negative NEGATIVE [facility] Cannabinoid Scrn, Ur Negative NEGATIVE [facility] Cocaine Metabolite, Urine Negative NEGATIVE [facility] Interpretation and review of laboratory results Abnormal [facility] MDMA, Urine NOT REPORTED NEGATIVE [facility] Methadone Screen, Urine Negative NEGATIVE [facility] Methamphetamine, Urine Negative NEGATIVE [facility] Opiates, Urine Positive Abnormal NEGATIVE [facility] th Oxycodone Screen, Ur Negative NEGATIVE [facility] Phencyclidine, Urine Negative NEGATIVE [facility] Propoxyphene, Urine Negative NEGATIVE [facility] Test Information NOT REPORTED [facility] Tricyclic Antidepressants, Urine Negative NEGATIVE [facility] Comment on above: Drug screen results are to be used for medical purposes only. All positive results are unconfirmed. Testing for employment or legal uses should be sent to a reference laboratory for confirmation. [facility] Hemoglobin and Hematocrit, b loodon 07-03-2021 Hematocrit (Bld) [Volume fraction] 23.0 % Low 36.3 - 47.1 % [facility] Hemoglobin.gastrointes tinal spec 1 Ql (Stl) 6.8 g/dL Critically low 11.9 - 15.1 g/dL [facility] Interpretation and review of laboratory results Abnormal [facility] CBC Auto Differentialon 06-08 Absolute Eos # 0.00 [facility] th Absolute Immature Granulocyte 0.00 [facility] Absolute Lymph # 3.07 [facility] Absolute Howell # 0.95 [facility] Basophils (Bld) [#/Vol] 0.00 10*3/uL [facility] Basophils/100 WBC (Bld) 0 % 0 - 2 % [facility] Differential Type NOT REPORTED [facility] Eosinophils/100 WBC (Bld) 0 % Low 1 - 4 % [facility] Hematocrit (Bld) [Volume fraction] 20.9 % Critically low 36.3 - 47.1 % [facility] Hemoglobin.gastrointes tinal spec 1 Ql (Stl) 6.3 g/dL Critically low 11.9 - 15.1 g/dL [facility] Immature granulocytes/100 WBC (Bld) 0 % 0 [facility] Interpretation and review of laboratory results Abnormal [facility] Lymphocytes/100 WBC (Bld) 29 % 24 - 43 % [facility] MCH (RBC) [Entitic mass] 28.5 pg 25.2 - 33.5 pg [facility] MCHC (RBC) [Mass/Vol] 30.1 g/dL 28.4 - 34.8 g/dL [facility] MCV (RBC) [Entitic vol] 94.6 fL 82.6 - 102.9 fL [facility] Monocytes/100 WBC (Bld) 9 % 3 - 12 % [facility] Morphology Tc (Bld) [Interp] Normal [facility] NRBC Automated 1.7 High 0.0 per 100 WBC [facility] Platelet distribution width (Bld) [Ratio] 15.7 % High 11.8 - 14.4 % [facility] Platelet Estimate NOT REPORTED [facility] Platelet mean volume (Bld) [Entitic vol] 10.6 fL 8.1 - 13.5 fL [facility] Platelets (Bld) [#/Vol] 368 10*3/uL [facility] RBC (Bld) [#/Vol] 2.21 10*6/uL Low 3.95 - 5.11 m/uL [facility] RBC (Bld) [#/Vol] NOT REPORTED [facility] Segmented neutrophils/100 WBC (Bld) 62 % 36 - 65 % [facility] Segs Absolute 6.58 [facility] h WBC (Bld) [#/Vol] 10.6 10*3/uL [facility] WBC (Bld) [#/Vol] NOT REPORTED [facility] Vitamin B12 & folateon 07-02 Cobalamin (Vitamin B12) [Mass/Vol] 398 pg/mL 232 - 1245 pg/mL [facility] Folate >20.0 >4.8 ng/mL [facility] CBC auto differentialon 06-08 Absolute Eos # 0.00 [facility] th Absolute Immature Granulocyte 0.00 [facility] Absolute Lymph # 2.83 [facility] Absolute Howell [facility] Basophils (Bld) [#/Vol] 0.00 10*3/uL [facility] Basophils/100 WBC (Bld) 0 % 0 - 2 % [facility] Differential Type NOT REPORTED [facility] Eosinophils/100 WBC (Bld) 0 % Low 1 - 4 % [facility] Need Fixed Hematocrit (Bld) [Volume fraction] 21.3 % Low 36.3 - 47.1 % [facility] Hemoglobin.gastrointes tinal spec 1 Ql (Stl) 6.5 g/dL Critically low 11.9 - 15.1 g/dL [facility] Immature granulocytes/100 WBC (Bld) 0 % 0 [facility] Interpretation and review of laboratory results Abnormal [facility] Need Fixed Lymphocytes/100 WBC (Bld) 18 % Low 24 - 43 % [facility] MCH (RBC) [Entitic mass] 28.5 pg 25.2 - 33.5 pg [facility] MCHC (RBC) [Mass/Vol] 30.5 g/dL 28.4 - 34.8 g/dL [facility] MCV (RBC) [Entitic vol] 93.4 fL 82.6 - 102.9 fL [facility] Need Fixed Monocytes/100 WBC (Bld) 5 % 3 - 12 % [facility] Fixed Morphology Tc (Bld) [Interp] 2+ 1+ POLYCHROMASIA [facility] Fixed NRBC Automated 1.5 High 0.0 per 100 WBC [facility] Platelet distribution width (Bld) [Ratio] 15.7 % High 11.8 - 14.4 % [facility] Platelet Estimate NOT REPORTED [facility] Need Fixed Platelet mean volume (Bld) [Entitic vol] 10.9 fL 8.1 - 13.5 fL [facility] Platelets (Bld) [#/Vol] 351 10*3/uL [facility] Need Fixed RBC (Bld) [#/Vol] 2.28 10*6/uL Low 3.95 - 5.11 m/uL [facility] RBC (Bld) [#/Vol] NOT REPORTED [facility] Segmented neutrophils/100 WBC (Bld) 77 % High 36 - 65 % [facility] Fixed Segs Absolute 12.08 [facility] [#/Vol] 15.7 10*3/uL High [facility] WBC (Bld) [#/Vol] NOT REPORTED [facility] Comprehensive Metabolic Pane l w/ Reflex to MGon 07-01-2021 Albumin [Mass/Vol] 3.6 g/dL 3.5 - 5.2 g/dL [facility] Albumin/Globulin [Mass ratio] 1.4 {ratio} [facility] ALP (Bld) [Catalytic activity/Vol] 142 U/L High 35 - 104 U/L [facility] ALT [Catalytic activity/Vol] 32 U/L 5 - 33 U/L [facility] Anion gap [Moles/Vol] 11 mmol/L 9 - 17 mmol/L [facility] AST [Catalytic activity/Vol] 30 U/L <32 [facility] Bilirubin [Mass/Vol] mg/dL Low 0.3 - 1 .2 mg/dL [facility] Calcium [Mass/Vol] 8.5 mg/dL Low 8.6 - 10. 4 mg/dL [facility] Chloride [Moles/Vol] 106 mmol/L 98 - 10 7 mmol/L [facility] CO2 [Moles/Vol] 22 mmol/L 20 - 31 mmol/L [facility] Creatinine [Mass/Vol] 1.55 mg/dL High 0.50 - 0.90 mg/dL [facility] Free PSA/Total PSA [Mass fraction] 6.2 g/dL Low 6.4 - 8.3 g/dL [facility] GFR 46 mL/min Low >60 [facility] GFR Non- 38 mL/min Low >60 [facility] Glucose [Mass/Vol] 153 mg/dL High 70 - 99 mg/dL [facility] Interpretation and review of laboratory results Abnormal [facility] Potassium [Moles/Vol] 4.3 mmol/L 3.7 - 5.3 mmol/L [facility] Sodium [Moles/Vol] 139 mmol/L 135 - 144 mmol/L [facility] Urea nitrogen (BldV) [Mass/Vol] 24 mg/dL High 6 - 20 mg/dL [facility] Urea nitrogen/Creatinine (Bld) [Mass ratio] 15 [facility] EKG 12 leadOrdered By: Gianluca mo on 07-01-2021 Atrial Rate 76 BPM [employer] Work Phone: P [place] 40 degrees [employer] Work Phone: P-R Interval 200 ms [employer] Work Phone: Q-T Interval 412 ms [employer] Work Phone: QRS Duration 100 ms [employer] Work Phone: QTc Calculation (Bazett) 463 ms [employer] Work Phone: R [place] 1 degrees [employer] Work Phone: T [place] 46 degrees [employer] Work Phone: Ventricular Rate 76 BPM [employer] [facility] Work Phone: [employer] Work Phone: EKG 12 leadon 07-01-2021 Normal sinus rhythm Normal ECG When compared with ECG of 01-JUL-2021 17:25, No significant change was found Confirmed by Gianluca Newell MD ([id number]) on 07/01/2021 6:48:31 PM [facility] RADIOLOGY Gianluca Newell MD - 07/01/2021 Normal sinus rhythm Normal ECG When compared with ECG of 01-JUL-2021 17:25, No significant change was found Confirmed by Gianluca Newell MD ([id number]) on 07/01/2021 6:48:31 PM [employer] Work Phone: Fibrinogenon 07-01-2021 Fibrinogen 368 mg/dL 179 - 518 mg/dL [facility] Iron and TIBCon 07-01-2021 Interpretation and review of laboratory results [facility]normal [facility] [Mass/Vol[facility] 15 ug/dL Low 37 - 145 ug/dL [facility] Saturation 4 % Low 20 - 55 % [facility] TIBC 368 ug/dL 250 - 450 ug/dL [facility] Need Fixed UIBC 353 ug/dL High 112 - 347 ug/dL [facility] Laboratory - Chemistry and C hemistry - challengeon 07-01-2021 GFR/1.73 sq M.predicted MDRD (S/P/Bld) [Vol rate/Area] [facility] Comment on above: Average GFR for 30-3 9 years old: 107 mL/min/1.73sq m Chronic Kidney Disease: <60 mL/min/1.73sq m Kidney failure: <15 mL/min/1.73sq m eGFR calculated using average adult body mass. Additional eGFR calculator available at: http://www.Pivotstream/multiple_crcl_2012.htm Stage 1: Some kidney damage normal GFR Stage 2: Mild kidney damage GFR 60-89 Stage 3: Moderate kidney damage GFR 30-59 Stage 4: Severe kidney damage GFR 15-29 Stage 5: Severe kidney damage GFR <15 ESRD - chronic treatment by dialysis or transplant XR CHEST (2 VW)on 07-01-2021 No acute cardiopulmo nary process specifically no overt edema or effusion with improved aeration and lung volumes from comparison 06/11/2021 [facility] RIS CONSOLIDATED EXAMINATION: TWO XRAY VIEWS OF THE CHEST 07/01/2021 5:08 pm COMPARISON: Chest x-ray 06/11/2021 HISTORY: ORDERING SYSTEM PROVIDED HISTORY: GI bleed TECHNOLOGIST PROVIDED HISTORY: If not done in ER GI bleed FINDINGS: Improved lung volumes and aeration from prior comparison with right chest wall Port-A-Cath remain in place. No overt edema or focal consolidation. No pleural effusion [facility] RIS CONSOLIDATED NovoaColby, - 07/01/2021 EXAMINATION: TWO XRAY VIEWS OF THE CHEST 07/01/2021 5:08 pm COMPARISON: Chest x-ray 06/11/2021 HISTORY: ORDERING SYSTEM PROVIDED HISTORY: GI bleed TECHNOLOGIST PROVIDED HISTORY: If not done in ER GI bleed FINDINGS: Improved lung volumes and aeration from prior comparison with right chest wall Port-A-Cath remain in place. No overt edema or focal consolidation. No pleural effusion IMPRESSION: No acute cardiopulmonary process specifically no overt edema or effusion with improved aeration and lung volumes from comparison 06/11/2021 [employer] Phone: Radiology Study observation (narrative) [employer] Phone: XR CHEST (2 VW)Ordered By: Elsa Novoa on 07-01-2021 [employer] Phone: Basic metabolic 2000 panelon 05-22-2021 CRP [Mass/Vol] mg/L Normal 0.0-1.0 [facility] Comment on above: Performed By: #### 2 4321-2 #### [facility] [address] [place] [address] ESR (Bld) [Velocity]on 05-22 Basophils (Bld) [#/Vol] 0.10 10*3/uL Normal 0.00-0.20 [facility] Comment on above: Performed By: #### 3 0341-2 #### [facility] [address] [place] [address] Basophils/100 WBC (Bld) 1.1 % Normal 0.0-2.0 [facility] Comment on above: Performed By: #### 3 0341-2 #### [facility] [address] [place] [address] Eosinophils (Bld) [#/Vol] 0.10 10*3/uL Normal 0.00-0.70 [facility] Comment on above: Performed By: #### 3 0341-2 #### [facility] [address] [place] [address] Eosinophils/100 WBC (Bld) 1.2 % Normal 0.0-7.0 [facility] Comment on above: Performed By: #### 3 0341-2 #### [facility] [address] [place] [address] Erythrocyte distribution width (RBC) [Ratio] 16.6 % High 11.0-14.8 [facility] Comment on above: Performed By: #### 3 0341-2 #### [facility] [address] [place] [address] Hematocrit (Bld) [Volume fraction] 31.5 % Low 35.0-45.0 [facility] Comment on above: Performed By: #### 3 0341-2 #### [facility] [address] [place] [address] Hemoglobin (Bld) [Mass/Vol] 9.8 g/dL Low 12.0-16.0 [facility] Comment on above: Performed By: #### 3 0341-2 #### [facility] [address] [place] [address] Lymphocytes (Bld) [#/Vol] 4.00 10*3/uL Normal 1.00-4.80 [facility] Comment on above: Performed By: #### 3 0341-2 #### [facility] [address] [place] [address] Lymphocytes/100 WBC (Bld) 36.5 % Normal 22.0-44.0 [facility] Comment on above: Performed By: #### 3 0341-2 #### [facility] [address] [place] [address] MCH 26.8 pcg Low 27.0-34.0 [facility] Comment on above: Performed By: #### 3 0341-2 #### [facility] [address] [place] [address] MCHC (RBC) [Mass/Vol] 31.1 g/dL Low 32.0-36.[address] [facility] Comment on above: Result Comment: Veri fied by slide review. Performed By: #### 3 0341-2 #### [facility] [address] [place] [address] MCV (RBC) [Entitic vol] 86.3 fL Normal 80.0-97.0 [facility] Comment on above: Performed By: #### 3 0341-2 #### [facility] [address] [place] [address] Monocytes (Bld) [#/Vol] 0.60 10*3/uL Normal 0.00-0.90 [facility] Comment on above: Performed By: #### 3 0341-2 #### [facility] [address] [place] [address] Monocytes/100 WBC (Bld) 5.2 % Normal 0.0-12.0 [facility] Comment on above: Performed By: #### 3 0341-2 #### [facility] [address] [place] [address] Neutrophils Absolute 6.10 K/mcL Normal 1.80-7.70 [facility] Comment on above: Performed By: #### 3 0341-2 #### [facility] [address] [place] [address] Neutrophils/100 WBC (Bld) 56.0 % Normal 40.0-70.0 [facility] Comment on above: Performed By: #### 3 0341-2 #### [facility] [address] [place] [address] Platelet mean volume (Bld) [Entitic vol] 8.8 fL Normal 6.2-12.1 [facility] Comment on above: Performed By: #### 3 0341-2 #### [facility] [address] [place] [address] Platelets (Bld) [#/Vol] 460 10*3/uL High 142-424 [facility] Comment on above: Performed By: #### 3 0341-2 #### [facility] [address] [place] [address] RBC (Bld) [#/Vol] 3.65 10*6/uL Low 3.80-5.10 [facility] Comment on above: Performed By: #### 3 0341-2 #### [facility] [address] [place] [address] WBC (Bld) [#/Vol] 11.0 10*3/uL High 4.6-10.2 [facility] Comment on above: Result Comment: Veri fied by repeat analysis. Performed By: #### 3 0341-2 #### [facility] [address] [place] [address] Nuclear IgG IA Ql (S)on 05-07 Bilirubin, Urine Negative Normal Negative [facility] Comment on above: Performed By: #### 2 9950-3 #### [facility] [address] [place] [address] Blood, Urine Negative Normal Negative [facility] Comment on above: Performed By: #### 2 9950-3 #### [facility] [address] [place] [address] Clarity (U) Clear Normal Clear [facility] Comment on above: Performed By: #### 2 9950-3 #### [facility] [address] [place] [address] Color (U) Yellow Normal Yellow [facility] Comment on above: Performed By: #### 2 9950-3 #### [facility] [address] [place] [address] Glucose Ql (U) Trace Abnormal Negative [facility] Comment on above: Performed By: #### 2 9950-3 #### [facility] [address] [place] [address] Ketones Ql (U) Negative Normal Negative [facility] Comment on above: Performed By: #### 2 9950-3 #### [facility] [address] [place] [address] Leukocytes, Urine Negative Normal Negative [facility] Comment on above: Performed By: #### 2 9950-3 #### [facility] [address] [place] [address], [place] [address] Nitrite, Urine Negative Normal Negative [facility] Comment on above: Performed By: #### 2 9950-3 #### [facility] [address] [place] [address] pH (U) 5.5 [pH] Normal 5.0-8.0 [facility] Comment on above: Performed By: #### 2 9950-3 #### [facility] [address] [place] [address] Protein, Urine Negative Normal Negative [facility] Comment on above: Performed By: #### 2 9950-3 #### [facility] [address] [place] [address] Specific [place], Urine >=1.030 Normal 1.002-1.03 0 [facility] Comment on above: Performed By: #### 2 9950-3 #### [facility] [address] [place] [address] Urobilinogen, Urine 0.2 mg/dL Normal Normal, 0.2, 1.0 [facility] Comment on above: Performed By: #### 2 9950-3 #### [facility] [address] [place] [address] PT Coag (PPP) [Time]on 05-22 aPTT Coag (Bld) [Time] 29.4 s Normal 23.3-35.3 [facility] Comment on above: Performed By: #### 5 902-2 #### [facility] [address] [place] [address] Coding Summary.on 05-06-2021 Coding Summary. CD:[id number] Gh0bW w+PGhlYWQ+QI9WEDFdH82arAX ebE1EZ5xYNB3GPLFVPVQIUD4X ZQ4cxCC5PKnnY6SwwgQj DpxmsEFuAY79JZt7OAS8rKxbP EsanT0nsTZjF9g0AjBjBY12eE 35VFcoGGFnGgE4WfKnpbympST y F3vqZaQskCZkRdc+PHRhYmxlI HdpZHRoPScxMDAlJyBzdHlsZT 0bFk0oSVJvCVNctYvydSKwYlG j h4qlRTYmJBlqPT6szScgB8Tum YN4UBDhg0d5Og68fZF+PHRkIH C7tXhzUStda376ThHhe3uvBHC 3 yXQvOEldGAB8F33nx2P3CCQeS NKfDIR7pFU1hV6ybUuyvzjyZ0 DruDGoGfG8BOB5nNMqlJ6teUj n ywzpoA7pFjl+Q18WND2LNKOOV X7IPhq5Q7VuIqilzIT+PC90YW NqRB43xFIspVOdl4lucDx3CrG w CWMcOYI4hHvoSQsoi1WoOGJnO 61hkJJym6Q6SLBnbQynpNVkSa DfhRQ1pB5eKTopxtaoj2wodur n Fypmu5fqgl20lQ99V66tYKhfU FWpLXI0VPNhIGSdtDtqzz5jcY 9wIi8+BUguv9bbr2efaDm5UgZ w FRVvrzRmcOjbPZE5r3FtUt93J 2SqwMcbv1YgNfs0bg22iKDra1 R9hTV4BDpwKYUjhJ2sUEjqBoC 6 PIFtNgWhlV30cWGbHAfeUu2oy KhxuBhsEO9mKIOjxbtdMQHidM 3kOYVkfWKlaDyhRO9kHYOwuop m a525RcNxUKI9QBPmuQSpJ1Yel E6cQbAdYCKiJVPvN3KcyEPbGW buQ478ZNyaKbC2JDIaqqShF3Q s EIAfqEplHsX4z7L4Mp4Yy6Jqa sqhYFX6JSrvUPXpNjDeNmFzYy S9I6WvCrb9XKFvdYloIO9aP7G h TMQilcznrrlcdRT2BEMgYYFnt E83cRUaMIwaSi2jq4X7v326EJ HjBMOqkB82Dg0rzTocOLRpsXL U mT3ejjmdw7ccilmaZoNrCDMyB Mh0PCz4SJRkhIreYjNtZQJ4Eq T8MOY6bXAfxZ4ecDxzqzsapD2 w Oyc+O26bcJ4zGAD0JCB0oqdhE QMlbaQyAN05QH80V1IzXobngI FibGU+MLZkhkHkfIxgCG3yNcI j u1dea0RvEGivD5XfKPTqDVwdQ cx9IJQzVWT0xBT1aK8hMVXlBH lpk4U0iRE0L4FzgrDfjd5fm5x s VNUhRMzaU93ngNYxr4X4XSFew LD7JVAipLntJlJoqA73Iqm+PG BosZedd7WjTrmje2rwa8essRx 9 RkClPAGpgpVcwFucFUU5m8ApZ q87M52eLZijYTFxGNIbVOOoEX RpkFfack0opU1oFv9+PGNvbCB 3 bUB9hO5kDZKpTgS0AVpvW696D gJteYHeYtufs5hfs4mjgGs0Xq MkYYAfohDruIfvBMY2s1MeOp2 8 N81tHQcuAHUqNUWfGDLhPSTic Vftmr2jgP4lCq0+DZ3fg2nsba 14vS90cTC+UCZtKRR6nXnzRXw w MXNwcE4eMRhsVpF6UALmVoYkg R93wGRfLAxlKo3clQlmzBvjHU 9lPCXslxapz918RpTpv4wpNED w aQDrDVzpONO4W94qb0R8QFEgN OFyIFL8wJA0hD9uhNbqdihszZ BwwMmwwiNnvTvnMSnlCOwrF47 6 IHRvcDsnPlBhdGllbnQgTmFtZ Bg1K7DgDzj0ZDMvfEsgJA7kpL NiVPpuLb1hoJiymWnaVI1tXUA p nputb958GfDsv3pfPMPcoSVsS FojJCA8W21bw1K0KABvIHQzVL I1lCB1fE7zaEvazrtkaWAfjSf g vzXquEplJLtsZSvqI712VVCjd ViiNuHrexYoKEAroFQ5YO42MI 22dVWmu2S6eMW1O3InFMZftgc t qwpvxYA3UPRlTTBjfN70Rb7ci CyxQh4jIBCbOEY3LGIqlVCwX0 EgeP7gYyVnKHLpUZEqA1TgkQA t TJqtZ280LZtrYqS5QPPrvwToR 8YcETMwsGjoMeB3s2S2Ys2KS4 V6YX11OR01aYMhj7N5aLX6G1S h BKDbpiwfnkyniVV3GTThTARjt Z63Yq1zcNldJv1vLJQuRRA3WH VsrVJkO9IdxZ2mItQxUIMzLCT w S5QdbSPgOXmwP374RAruGbQ7Z CLebdYfL0ZqUFPebTxbTzV9b1 Q0Qt3CTXd6LZ98NO44lIIfr8V 5 pJX8Q4AqNJJnpjlobnedxXS2O IUcOFFzsD20Vo9klPeuIo9wAB XrZNI8ZPTwpUCnB7LvxD8nXkZ j PRXvHGCxM9BtxKTfWWtjB939J UmpCdJ6GGVgimYtK2XsAGZlmX qyChT2d4X2Jo2WNCAaPW87HZI 5 eEJ9HW80JO60G9PzOogstPEcp +PHRhYmxlIHdpZHRoPScxMD SfEcAtuGzwKF1gCs0wZARuQYR v vZsauOHaDoBhz5fmXULkQUkzG J7scVdgK4KyhLL0YOOvq3g3Lj 28K58mP8XhpIB+KTXtkGL4uDA 0 nK6pCxWkKwM6MIxiO092IoVjq AKuQtjky4rat6fynYu3MkE9QZ KjnnFcjVaiPOT2y6LdNj63N44 s IHdpZHRoPSIxNSUiIHZhbGlnb v5fkK3nIc6+GHMzrGY0zII7pO 9fXeAmYnG3YAkjP832YlRpxEF v Fgldf6lcw4bpfMs7AnFsYQQis oVvdRukWMP1v1PhCh18M2QltD zyv9SjQpg1lf86sREqm2V2fVJ 9 F4TtARJmidrwiRAosOzsGZ8mY KBhuilsSLIyzH7bNUNaG4u6Rm EaUrW1SChkD3MiwjE2SPUacEU g NUtcEUC2F99pj0D7ANJlUTVxG SG2xMV7mI4kcVrclxexoVRvfV vpwhAnyGzzVLygIFuxK043WEJ v lIkvLQUhoV1cVNOmaPXdmZqnH F5zLOCaqdwmZwVERERHOA6FOP xMRVIsIEFCQlkgQTwvdGQ+PHR k OCA2iLjwRUfxPJTdyA4lYSUhO 8m7MoRuUoT2VNbiC8DhELWwkm mtMl50lT9uVnSsByQ5KMpwN8S v mjN7SFMcvPMkYEquGAZ8W82ro 4L4BVEaMJOhZRC3gLL9lM7pbY lnbjogbGVmdDsgdmVydGljYWw t RRycU083WEOixPbrTdS4JpG2Z nU0XHG6M0YjAqs0RYDkhKcuDV 5pqNJoLMgzUk2lqUbsvVhjMX7 w HVEaqgkePUZjyS9xBSYhdIYvs QttAZ7tEUCfvleow042ExZvAQ D2IPAxsFJbK3DgvH3hMaFiVCN w RQYoZ0EjtUJyYBcmU900QHniP hQ9ROTeyrJcF4EiWJBpbWjiNs F4w8P7By0gXGWDYPXtvpxzmDI + ETGeDXT7gDhzNNcxIBCiuX8xD PEnT8n2GeHhYeM8FVpoA7YsFE MfsxxaMa71bR4nUiBwRoS4LTs u Q1MixfV5CUFhrYAsKAmwITA0J 27av6J9WXCxLTCgMRK8nFC5mT 1hbGlnbjogbGVmdDsgdmVydGl j DNtmMXgfN820RBXrfQttQqBou WFsZTwvdGQ+GGXuFVP1bVcqBR jgCSBkeY1oIRNrJ1w8EsSqRzI 1 MWlsE5MhBCKedfigLc99yW7tI yCdYxJ0HFtxU6WugwJ6LASpbS KoNRnaZTO2T00oe8H7PPKgZUC w BPI9mVU4fF2ubBxfrcahvWVdv BffcuNddXhqMDrsHHpaW967GD DhuRnqGuiuUaSPpl2uHA4cVoa v dGQ+EL21ae19H5KlDobfJry1N OExTVD9hZH1rJ3mCFKpTCjvf7 Y9zXM4Z8AxdlKlea7wb1tcYTC z FJtpR21yzLRcq2J5FCDyhWW9Y ZGoqKohYpZxvU33Hzi+PGNvbG kbd2IyBxyii2qwb4zpeCn4OyS w CIXrbxHvwZrtLAK3o8VlEu15T 29sIHdpZHRoPSIzMCUiIHZhbG mxks5mrM8dBe9+YEWvdZP5hFK 0 dR5vEiKnOvY3TMbrB380EoNuj AGxBjqpi3xst7thaOc8SbUzYL KqgtWzhKpsYJU4b1LoFm67Z8U v sCscg5EzWif1sr13vXXto7I9j BE8G3ZmMJUwzzycsCHyeWilPK 9gGCLpvtdmNOZxmY7mKCOyR9k 0 LdXoZhY6ZFbxF3JyeiK8FWLio UWvCPFkoUCEjI5wdnggm5vgcc obNeDmCPEnUVb9SCy2OQXmqGb u EjLtSSR3FxE1NSS1mHCjmV8xe FskphnvfZ8jMqq+NBl7w6tjuP PoSA7cmXU5IU67DA40uYPjs6L 5 zBA5V0TjJWBftuobfknbhZW9E NUtFZOeuM86Nq0ydCywBr9sLX IzVOR7FMKkxASmZ6ZriS6xJyA j JYJsMSOuT3CvpQIkVDfgP600L IzlHsU9RUVmjuUtP2ZcVVHztF shEeT0q8H2Ip7IEU17FR28FB1 8 dIZnb0V7nSE1K6RoZORmhytdt ffmwRY9ILDwMGJalX01Hi0bsJ llHf5hWSIwOFI2ORXkwBZkT2M v tD5yRzGjUMZeSSWiW4XmwENqK UqtC414UXowMhO0ABLhfdEbQ6 McCPFwbMwyVgA7j8C8Fw3KGp9 6 SI93RT17dJCpi1O7nBH0B6ZoI TBwyzruzqeoxVU2XSPmVQBhjV 38Uf2ulXuhKr6dIXCaADV6JHS p mGWzD2PgrC9jDhXtKVFoGPFcH 2UiqYUmABkvL650YZbbVaI4RF LkrnWgO4KlUHCqsJphDiH6p0V 7 Zu7KSOijlri7N3JtEmheqJO+P B43VNBoQZ64kBHuoIHgd9umgE q0BwJtHGWyAEU3oCgtFHhlq9D k [employer]XIt (more content not included)... Normal [facility] CBC w/Indiceson 04-14-2021 Erythrocyte distribution width (RBC) [Ratio] 16.7 % High 10.9-14.2 [facility] Comment on above: Performed By: #### 2 [id number] #### [facility] [address] [place] [address] Hematocrit (Bld) [Volume fraction] 23.7 % Low 34.0-46.0 [facility] Comment on above: Performed By: #### 2 [id number] #### [facility] [address] [place] [address] Hemoglobin (Bld) [Mass/Vol] 7.2 g/dL Low 12.0-16.0 [facility] Comment on above: Performed By: #### 2 [id number] #### [facility] [address] [place] [address] MCH (RBC) [Entitic mass] 26.6 pg Low 27.0-34.0 [facility] Comment on above: Performed By: #### 2 [id number] #### [facility] [address] [place] [address] MCHC (RBC) [Mass/Vol] 30.6 g/dL Low 31.4-36.0 [facility] Comment on above: Performed By: #### 2 [id number] #### [facility] [address] [place] [address] MCV (RBC) [Entitic vol] 86.9 fL Normal 80.0-100.0 [facility] Comment on above: Performed By: #### 2 [id number] #### [facility] [address] [place] [address] Platelet mean volume (Bld) [Entitic vol] 9.3 fL Normal 6.4-10.8 [facility] Comment on above: Performed By: #### 2 [id number] #### [facility] [address] [place] [address] Platelets (Bld) [#/Vol] 346.0 E9/L Normal 150.0-500. 0 [facility] Comment on above: Performed By: #### 2 [id number] #### [facility] [address] [place] [address] RBC (Bld) [#/Vol] 2.7 E12/L Low 4.3-5.9 [facility] Comment on above: Performed By: #### 2 [id number] #### [facility] [address] [place] [address] WBC corrected for nucl RBC Auto (Bld) [#/Vol] 12.3 E9/L High 4.0-11.0 [facility] Comment on above: Performed By: #### 2 [id number] #### [facility] [address] [place] [address] Physician Orderon 04-14-2021 Physician Order [id number]:1 27 Normal [facility] Pre-Certification Formon Pre-Certification Form [id number]:12 7 Normal [facility] CBC auto differentialOrdered By: Kian Woodson on 01-29-2021 Absolute Eos # <0.03 [facility] Work Phone: Absolute Immature Granulocyte 0.13 [facility]: Absolute Lymph # 2.97 [employer] [facility] [place] Work Phone: [facility]ell # 0.67 [facility] Work Phone: Basophils (Bld) [#/Vol] 0.04 10*3/uL [employer] Work Phone: Basophils/100 WBC (Bld) 0 % 0 - 2 % [employer] Work Phone: Differential Type NOT REPORTED [facility] Work Phone: Eosinophils/100 WBC (Bld) 0 % Low 1 - 4 % [employer] Phone: Hematocrit (Bld) [Volume fraction] 23.9 % Low 36.3 - 47.1 % [employer] Phone: Hemoglobin.gastrointes tinal spec 1 Ql (Stl) 7.3 g/dL Low 11.9 - 15.1 g/dL [employer] Phone: Immature granulocytes/100 WBC (Bld) 1 % High 0 [employer] Phone: Interpretation and review of laboratory results Abnormal [employer] Phone: Lymphocytes/100 WBC (Bld) 15 % Low 24 - 43 % [employer] Phone: MCH (RBC) [Entitic mass] 28.6 pg 25.2 - 33.5 pg [employer] Phone: MCHC (RBC) [Mass/Vol] 30.5 g/dL 28.4 - 34.8 g/dL [employer] Phone: MCV (RBC) [Entitic vol] 93.7 fL 82.6 - 102.9 fL [employer] Phone: Monocytes/100 WBC (Bld) 3 % 3 - 12 % [employer] Phone: NRBC Automated 0.1 High 0.0 per 100 WBC [employer] Phone: Platelet distribution width (Bld) [Ratio] 15.8 % High 11.8 - 14.4 % [employer] Phone: Platelet Estimate NOT REPORTED [employer] Phone: Platelet mean volume (Bld) [Entitic vol] 10.3 fL 8.1 - 13.5 fL [employer] Phone: Platelets (Bld) [#/Vol] 328 10*3/uL [employer] Phone: RBC (Bld) [#/Vol] 2.55 10*6/uL Low 3.95 - 5.11 m/uL [employer] Work Phone: RBC (Bld) [#/Vol] NOT REPORTED [employer] Work Phone: Segmented neutrophils/100 WBC (Bld) 81 % High 36 - 65 % [employer] Work Phone: Segs Absolute 16.45 High [employer] Work Phone: WBC (Bld) [#/Vol] 20.3 10*3/uL High [employer] Work Phone: WBC (Bld) [#/Vol] NOT REPORTED [employer] Work Phone: [employer] Work Phone: Comprehensive Metabolic Pane lOrdered By: Kian Woodson on 01-29-2021 Albumin [Mass/Vol] 3.8 g/dL 3.5 - 5.2 g/dL [employer] Phone: Albumin/Globulin [Mass ratio] 1.5 {ratio} [employer] Phone: ALP (Bld) [Catalytic activity/Vol] 121 U/L High 35 - 104 U/L [employer] Phone: ALT [Catalytic activity/Vol] 25 U/L 5 - 33 U/L [employer] Phone: Anion gap [Moles/Vol] 10 mmol/L 9 - 17 mmol/L [employer] Phone: AST [Catalytic activity/Vol] 22 U/L <32 [employer] Phone: Bilirubin [Mass/Vol] 0.19 mg/dL Low 0.3 - 1 .2 mg/dL [employer] Work Phone: Calcium [Mass/Vol] 8.8 mg/dL 8.6 - 10. 4 mg/dL [employer] Phone: Chloride [Moles/Vol] 102 mmol/L 98 - 10 7 mmol/L [employer] Phone: CO2 [Moles/Vol] 23 mmol/L 20 - 31 mmol/L [employer] Phone: Creatinine [Mass/Vol] 1.55 mg/dL High 0.50 - 0.90 mg/dL [employer] Phone: Free PSA/Total PSA [Mass fraction] 6.4 g/dL 6.4 - 8.3 g/dL [employer] Phone: GFR 46 mL/min Low >60 [employer] Phone: GFR Non- 38 mL/min Low >60 [employer] Phone: Glucose [Mass/Vol] 148 mg/dL High 70 - 99 mg/dL [employer] Phone: Interpretation and review of laboratory results Abnormal [employer] Phone: Potassium [Moles/Vol] 5.0 mmol/L 3.7 - 5.3 mmol/L [employer] Phone: Sodium [Moles/Vol] 135 mmol/L 135 - 144 mmol/L [employer] Phone: Urea nitrogen (BldV) [Mass/Vol] 25 mg/dL High 6 - 20 mg/dL [employer] Phone: Urea nitrogen/Creatinine (Bld) [Mass ratio] 16 [employer] Phone: [employer] Phone: Laboratory - Chemistry and C hemistry - challengeOrdered By: Kian Woodson on 01-29-2021 GFR/1.73 sq M.predicted MDRD (S/P/Bld) [Vol rate/Area] [employer] Phone: Comment on above: Average GFR for 30-3 9 years old: 107 mL/min/1.73sq m Chronic Kidney Disease: <60 mL/min/1.73sq m Kidney failure: <15 mL/min/1.73sq m eGFR calculated using average adult body mass. Additional eGFR calculator available at: http://www.[employer]/multiple_crcl_2012.htm Stage 1: Some kidney damage normal GFR Stage 2: Mild kidney damage GFR 60-89 Stage 3: Moderate kidney damage GFR 30-59 Stage 4: Severe kidney damage GFR 15-29 Stage 5: Severe kidney damage GFR <15 ESRD - chronic treatment by dialysis or transplant TYPE AND SCREENOrdered By: Bob Woodson on 01-29-2021 ABO/Rh Positive [employer] Work Phone: Arm Band Number [id number] [facility] Work Phone: Expiration Date 02/01/2021,2359 [employer] Work Phone: [employer] Work Phone: APTTOrdered By: Mecca Hale on 01-27-2021 aPTT Coag (Bld) [Time] 112.2 s Critically high [employer] Work Phone: Comment on above: IV Heparin Therapy Range: 62.0-94.0 Interpretation and review of laboratory results Abnormal [employer] Work Phone: [employer] Work Phone: CBC Auto DifferentialOrdered By: Mecca Hale on 01-27-2021 Absolute Eos # <0.03 [facility] Work Phone: Absolute Immature Granulocyte 0.21 [employer] Work Phone: Absolute Lymph # 2.89 [employer] [facility] [place] Work Phone: Absolute Howell # 0.69 [facility] Work Phone: Basophils (Bld) [#/Vol] 0.07 10*3/uL [employer] Work Phone: Basophils/100 WBC (Bld) 0 % 0 - 2 % [employer] Phone: Differential Type NOT REPORTED [employer] Phone: Eosinophils/100 WBC (Bld) 0 % Low 1 - 4 % [employer] Phone: Hematocrit (Bld) [Volume fraction] 18.6 % Critically low 36.3 - 47.1 % [employer] Phone: Hemoglobin.gastrointes tinal spec 1 Ql (Stl) 5.5 g/dL Critically low 11.9 - 15.1 g/dL [employer] Phone: Immature granulocytes/100 WBC (Bld) 1 % High 0 [employer] Phone: Interpretation and review of laboratory results Abnormal [employer] Phone: Lymphocytes/100 WBC (Bld) 17 % Low 24 - 43 % [employer] Phone: MCH (RBC) [Entitic mass] 27.6 pg 25.2 - 33.5 pg [employer] Phone: MCHC (RBC) [Mass/Vol] 29.6 g/dL 28.4 - 34.8 g/dL [employer] Phone: MCV (RBC) [Entitic vol] 93.5 fL 82.6 - 102.9 fL [employer] Phone: Monocytes/100 WBC (Bld) 4 % 3 - 12 % [employer] Phone: NRBC Automated 0.0 0.0 per 100 WBC [employer] Phone: Platelet distribution width (Bld) [Ratio] 17.0 % High 11.8 - 14.4 % [employer] Phone: Platelet Estimate NOT REPORTED [employer] Phone: Platelet mean volume (Bld) [Entitic vol] 10.6 fL 8.1 - 13.5 fL [employer] Work Phone: Platelets (Bld) [#/Vol] 286 10*3/uL [employer] Phone: RBC (Bld) [#/Vol] 1.99 10*6/uL Low 3.95 - 5.11 m/uL [employer] Work Phone: RBC (Bld) [#/Vol] NOT REPORTED [employer] Work Phone: Segmented neutrophils/100 WBC (Bld) 77 % High 36 - 65 % [employer] Work Phone: Segs Absolute 12.80 High [employer] Work Phone: WBC (Bld) [#/Vol] 16.7 10*3/uL High [employer] Work Phone: WBC (Bld) [#/Vol] NOT REPORTED [employer] Work Phone: [employer] Work Phone: Comprehensive Metabolic Pane l w/ Reflex to MGOrdered By: Mecca Hale on 01-27-2021 Albumin [Mass/Vol] 3.6 g/dL 3.5 - 5.2 g/dL [employer] Phone: Albumin/Globulin [Mass ratio] 1.6 {ratio} [employer] Phone: ALP (Bld) [Catalytic activity/Vol] 121 U/L High 35 - 104 U/L [employer] Work Phone: ALT [Catalytic activity/Vol] 34 U/L High 5 - 33 U/L [employer] Phone: Anion gap [Moles/Vol] 10 mmol/L 9 - 17 mmol/L [employer] Phone: AST [Catalytic activity/Vol] 23 U/L <32 [employer] Phone: Bilirubin [Mass/Vol] mg/dL Low 0.3 - 1 .2 mg/dL [employer] Phone: Calcium [Mass/Vol] 8.2 mg/dL Low 8.6 - 10. 4 mg/dL [employer] Phone: Chloride [Moles/Vol] 104 mmol/L 98 - 10 7 mmol/L [employer] Phone: CO2 [Moles/Vol] 22 mmol/L 20 - 31 mmol/L [employer] Phone: Creatinine [Mass/Vol] 2.48 mg/dL High 0.50 - 0.90 mg/dL [employer] Phone: Free PSA/Total PSA [Mass fraction] 5.8 g/dL Low 6.4 - 8.3 g/dL [employer] Phone: GFR 27 mL/min Low >60 [employer] Phone: GFR Non- 22 mL/min Low >60 [employer] Phone: Glucose [Mass/Vol] 238 mg/dL High 70 - 99 mg/dL [employer] Phone: Interpretation and review of laboratory results Abnormal [employer] Phone: Potassium [Moles/Vol] 5.5 mmol/L High 3.7 - 5.3 mmol/L [employer] Phone: Sodium [Moles/Vol] 136 mmol/L 135 - 144 mmol/L [employer] Phone: Urea nitrogen (BldV) [Mass/Vol] 39 mg/dL High 6 - 20 mg/dL [employer] Phone: Urea nitrogen/Creatinine (Bld) [Mass ratio] 16 [employer] Phone: [employer] Phone: Laboratory - Chemistry and C hemistry - challengeOrdered By: Mecca Hale on 01-27-2021 GFR/1.73 sq M.predicted MDRD (S/P/Bld) [Vol rate/Area] [employer] Phone: Comment on above: Average GFR for 30-3 9 years old: 107 mL/min/1.73sq m Chronic Kidney Disease: <60 mL/min/1.73sq m Kidney failure: <15 mL/min/1.73sq m eGFR calculated using average adult body mass. Additional eGFR calculator available at: http://www.[employer]/[place]_crcl_2012.htm Stage 1: Some kidney damage normal GFR Stage 2: Mild kidney damage GFR 60-89 Stage 3: Moderate kidney damage GFR 30-59 Stage 4: Severe kidney damage GFR 15-29 Stage 5: Severe kidney damage GFR <15 ESRD - chronic treatment by dialysis or transplant LipaseOrdered By: Mecca walsh on 01-27-2021 Interpretation and review of laboratory results Abnormal [employer] Phone: Lipase [Catalytic activity/Vol] 6 U/L Low 13 - 60 U/L [employer] Phone: [employer] Phone: Protime-INROrdered By: Madeline Hale on 01-27-2021 INR Coag (Bld) [Relative time] 1.2 {INR} [employer] Phone: Comment on above: Non-therapeutic Range: INR = 0.9-1.2 Therapeutic Range: Moderate Anticoagulant Intensity: INR = 2.0-3.0 High Anticoagulant Intensity: INR = 2.5-3.5 Interpretation and review of laboratory results Abnormal [employer] Phone: PT Coag (PPP) [Time] 15.3 s High [employer] Phone: [employer] Phone: Basic Metabolic Panel w/ Ref ran to MGOrdered By: Montana Katz on 01-25-2021 Anion gap [Moles/Vol] 9 mmol/L 9 - 17 mmol/L [employer] Phone: Calcium [Mass/Vol] 7.9 mg/dL Low 8.6 - 10. 4 mg/dL [employer] Phone: Chloride [Moles/Vol] 105 mmol/L 98 - 10 7 mmol/L [employer] Phone: CO2 [Moles/Vol] 22 mmol/L 20 - 31 mmol/L [employer] Phone: Creatinine [Mass/Vol] 1.95 mg/dL High 0.50 - 0.90 mg/dL [employer] Phone: GFR 36 mL/min Low >60 [employer] Phone: GFR Non- 29 mL/min Low >60 [employer] Phone: Glucose [Mass/Vol] 152 mg/dL High 70 - 99 mg/dL [employer] Phone: Interpretation and review of laboratory results Abnormal [employer] Phone: Potassium [Moles/Vol] 7.1 mmol/L Critically high 3.7 - 5.3 mmol/L [employer] Phone: Sodium [Moles/Vol] 136 mmol/L 135 - 144 mmol/L [employer] Phone: Urea nitrogen (BldV) [Mass/Vol] 30 mg/dL High 6 - 20 mg/dL [employer] Work Phone: Urea nitrogen/Creatinine (Bld) [Mass ratio] 15 [employer] Phone: [employer] Phone: CBC Auto DifferentialOrdered By: Montana Katz on 01-25-2021 Absolute Eos # <0.03 [employer] Work Phone: Absolute Immature Granulocyte 0.13 [employer] Work Phone: Absolute Lymph # 3.08 [facility] Work Phone: Absolute Howell # 1.08 [employer] [facility] Work Phone: Basophils (Bld) [#/Vol] 0.06 10*3/uL [employer] Work Phone: Basophils/100 WBC (Bld) 0 % 0 - 2 % [employer] Phone: Differential Type NOT REPORTED [employer] Phone: Eosinophils/100 WBC (Bld) 0 % Low 1 - 4 % [employer] Phone: Hematocrit (Bld) [Volume fraction] 27.5 % Low 36.3 - 47.1 % [employer] Phone: Hemoglobin.gastrointes tinal spec 1 Ql (Stl) 8.1 g/dL Low 11.9 - 15.1 g/dL [employer] Phone: Immature granulocytes/100 WBC (Bld) 1 % High 0 [employer] Work Phone: Interpretation and review of laboratory results Abnormal [employer] Phone: Lymphocytes/100 WBC (Bld) 17 % Low 24 - 43 % [employer] Phone: MCH (RBC) [Entitic mass] 26.9 pg 25.2 - 33.5 pg [employer] Phone: MCHC (RBC) [Mass/Vol] 29.5 g/dL 28.4 - 34.8 g/dL [employer] Phone: MCV (RBC) [Entitic vol] 91.4 fL 82.6 - 102.9 fL [employer] Phone: Monocytes/100 WBC (Bld) 6 % 3 - 12 % [employer] Phone: NRBC Automated 0.0 0.0 per 100 WBC [employer] Phone: Platelet distribution width (Bld) [Ratio] 16.3 % High 11.8 - 14.4 % [employer] Work Phone: Platelet Estimate NOT REPORTED [employer] Work Phone: Platelet mean volume (Bld) [Entitic vol] 10.4 fL 8.1 - 13.5 fL [employer] Work Phone: Platelets (Bld) [#/Vol] 353 10*3/uL [employer] Work Phone: RBC (Bld) [#/Vol] 3.01 10*6/uL Low 3.95 - 5.11 m/uL [employer] Work Phone: RBC (Bld) [#/Vol] NOT REPORTED [employer] Work Phone: Segmented neutrophils/100 WBC (Bld) 76 % High 36 - 65 % [employer] Work Phone: Segs Absolute 13.91 High [employer] Work Phone: WBC (Bld) [#/Vol] 18.3 10*3/uL High [employer] Work Phone: WBC (Bld) [#/Vol] NOT REPORTED [employer] Phone: [employer] Work Phone: Comprehensive Metabolic Pane l w/ Reflex to MGOrdered By: Montana Katz on 01-25-2021 Albumin [Mass/Vol] 4 g/dL 3.5 - 5.2 g/dL [employer] Work Phone: Albumin/Globulin [Mass ratio] 1.5 {ratio} [employer] Work Phone: ALP (Bld) [Catalytic activity/Vol] 144 U/L High 35 - 104 U/L [employer] Work Phone: ALT [Catalytic activity/Vol] 57 U/L High 5 - 33 U/L [employer] Work Phone: Anion gap [Moles/Vol] 12 mmol/L 9 - 17 mmol/L [employer] Phone: AST [Catalytic activity/Vol] 34 U/L High <32 [employer] Phone: Bilirubin [Mass/Vol] mg/dL Low 0.3 - 1 .2 mg/dL [employer] Phone: Calcium [Mass/Vol] 8.7 mg/dL 8.6 - 10. 4 mg/dL [employer] Phone: Chloride [Moles/Vol] 101 mmol/L 98 - 10 7 mmol/L [employer] Phone: CO2 [Moles/Vol] 21 mmol/L 20 - 31 mmol/L [employer] Phone: Creatinine [Mass/Vol] 2.08 mg/dL High 0.50 - 0.90 mg/dL [employer] Phone: Free PSA/Total PSA [Mass fraction] 6.7 g/dL 6.4 - 8.3 g/dL [employer] Phone: GFR 33 mL/min Low >60 [employer] Phone: GFR Non- 27 mL/min Low >60 [employer] Phone: Glucose [Mass/Vol] 180 mg/dL High 70 - 99 mg/dL [employer] Phone: Interpretation and review of laboratory results Abnormal [employer] Phone: Potassium [Moles/Vol] 7.2 mmol/L Critically high 3.7 - 5.3 mmol/L [employer] Phone: Sodium [Moles/Vol] 134 mmol/L Low 135 - 144 mmol/L [employer] Phone: Urea nitrogen (BldV) [Mass/Vol] 31 mg/dL High 6 - 20 mg/dL [employer] Phone: Urea nitrogen/Creatinine (Bld) [Mass ratio] 15 [employer] Phone: [employer] Phone: Glucose, Whole BloodOrdered By: Guerrero Don on 01-25-2021 Glucose [Mass/Vol] 158 mg/dL High 74 - 100 mg/dL [employer] Phone: Interpretation and review of laboratory results Abnormal [employer] Phone: [employer] Phone: HCG Qualitative, SerumOrdere d By: Montana Katz on 01-25-2021 hCG Qual Negative NEGATIVE [employer] Phone: Comment on above: Specimens with hCG l evels near the threshold of the test (25 mIU/mL) may give a negative or indeterminate result. In such cases, another test should be performed with a new specimen in 48-72 hours. If early is suspected clinically in this setting, correlation with quantitative serum b-hCG level is suggested. [employer] has confirmed the use of plasma for this test. This has not been cleared or approved by the U.S. Food and Drug Administration. The FDA has determined that such clearance is not necessary. [employer] Phone: Laboratory - Chemistry and C hemistry - challengeOrdered By: Montana Katz on 01-25-2021 GFR/1.73 sq M.predicted MDRD (S/P/Bld) [Vol rate/Area] [employer] Phone: Comment on above: Average GFR for 30-3 9 years old: 107 mL/min/1.73sq m Chronic Kidney Disease: <60 mL/min/1.73sq m Kidney failure: <15 mL/min/1.73sq m eGFR calculated using average adult body mass. Additional eGFR calculator available at: http://www.Pivotstream/multiple_crcl_2012.htm Stage 1: Some kidney damage normal GFR Stage 2: Mild kidney damage GFR 60-89 Stage 3: Moderate kidney damage GFR 30-59 Stage 4: Severe kidney damage GFR 15-29 Stage 5: Severe kidney damage GFR <15 ESRD - chronic treatment by dialysis or transplant GFR/1.73 sq M.predicted MDRD (S/P/Bld) [Vol rate/Area] [employer] Phone: Comment on above: Average GFR for 30-3 9 years old: 107 mL/min/1.73sq m Chronic Kidney Disease: <60 mL/min/1.73sq m Kidney failure: <15 mL/min/1.73sq m eGFR calculated using average adult body mass. Additional eGFR calculator available at: http://www.P[employer]stream/multiple_crcl_2012.htm Stage 1: Some kidney damage normal GFR Stage 2: Mild kidney damage GFR 60-89 Stage 3: Moderate kidney damage GFR 30-59 Stage 4: Severe kidney damage GFR 15-29 Stage 5: Severe kidney damage GFR <15 ESRD - chronic treatment by dialysis or transplant Lactic AcidOrdered By: Antonio Katz on 01-25-2021 Interpretation and review of laboratory results Abnormal [employer] Phone: Lactate [Moles/Vol] 2.8 mmol/L High 0.5 - 2. 2 mmol/L [employer] Phone: [employer] Phone: LipaseOrdered By: Juana on 01-25-2021 Interpretation and review of laboratory results Abnormal [employer] Phone: Lipase [Catalytic activity/Vol] 6 U/L Low 13 - 60 U/L [employer] Phone: [employer] Phone: Protime-INROrdered By: Antonio Katz on 01-25-2021 INR Coag (Bld) [Relative time] 1.1 {INR} [employer] Phone: Comment on above: Non-therapeutic Range: INR = 0.9-1.2 Therapeutic Range: Moderate Anticoagulant Intensity: INR = 2.0-3.0 High Anticoagulant Intensity: INR = 2.5-3.5 PT Coag (PPP) [Time] 13.7 s [employer] Phone: [employer] Work Phone: CBC auto differentialOrdered By: Samir Vila on 12-07-2020 Absolute Eos # 0.00 [facility] Work Phone: Absolute Immature Granulocyte 0.19 [employer] Work Phone: Absolute Lymph # 1.69 [employer] [facility] Work Phone: Absolute Howell # 1.50 High [employer] [facility] Work Phone: Basophils (Bld) [#/Vol] 0.00 10*3/uL [employer] Work Phone: Basophils/100 WBC (Bld) 0 % 0 - 2 % [employer] Work Phone: Differential Type NOT REPORTED [employer] Work Phone: Eosinophils/100 WBC (Bld) 0 % Low 1 - 4 % [employer] Work Phone: Hematocrit (Bld) [Volume fraction] 21.2 % Low 36.3 - 47.1 % [employer] Phone: Hemoglobin.gastrointes tinal spec 1 Ql (Stl) 6.3 g/dL Critically low 11.9 - 15.1 g/dL [employer] Phone: Immature granulocytes/100 WBC (Bld) 1 % High 0 [employer] Work Phone: Interpretation and review of laboratory results Abnormal [employer] Phone: Lymphocytes/100 WBC (Bld) 9 % Low 24 - 43 % [employer] Phone: MCH (RBC) [Entitic mass] 27.3 pg 25.2 - 33.5 pg [employer] Work Phone: MCHC (RBC) [Mass/Vol] 29.7 g/dL 28.4 - 34.8 g/dL [employer] Work Phone: MCV (RBC) [Entitic vol] 91.8 fL 82.6 - 102.9 fL [employer] Phone: Monocytes/100 WBC (Bld) 8 % 3 - 12 % [employer] Work Phone: Morphology Tc (Bld) [Interp] BASOPHILIC STIPPLING [employer] Work Phone: Morphology Tc (Bld) [Interp] POLYCHROMASIA [employer] Work Phone: NRBC Automated 0.0 0.0 per 100 WBC [employer] Phone: Platelet distribution width (Bld) [Ratio] 15.4 % High 11.8 - 14.4 % [employer] Phone: Platelet Estimate NOT REPORTED [employer] Phone: Platelet mean volume (Bld) [Entitic vol] 10.2 fL 8.1 - 13.5 fL [employer] Phone: Platelets (Bld) [#/Vol] 376 10*3/uL [employer] Phone: RBC (Bld) [#/Vol] 2.31 10*6/uL Low 3.95 - 5.11 m/uL [employer] Phone: RBC (Bld) [#/Vol] NOT REPORTED [employer] Phone: Segmented neutrophils/100 WBC (Bld) 82 % High 36 - 65 % [employer] Work Phone: Segs Absolute 15.42 High [employer] Work Phone: WBC (Bld) [#/Vol] 18.8 10*3/uL High [employer] Work Phone: WBC (Bld) [#/Vol] NOT REPORTED [employer] Phone: [employer] Work Phone: Comprehensive Metabolic Pane lOrdered By: Samir Vila on 12-07-2020 Albumin [Mass/Vol] 3.6 g/dL 3.5 - 5.2 g/dL [employer] Phone: Albumin/Globulin [Mass ratio] 1.3 {ratio} [employer] Phone: ALP (Bld) [Catalytic activity/Vol] 126 U/L High 35 - 104 U/L [employer] Phone: ALT [Catalytic activity/Vol] 45 U/L High 5 - 33 U/L [employer] Phone: Anion gap [Moles/Vol] 12 mmol/L 9 - 17 mmol/L [employer] Phone: AST [Catalytic activity/Vol] 31 U/L <32 [employer] Phone: Bilirubin [Mass/Vol] mg/dL Low 0.3 - 1 .2 mg/dL [employer] Phone: Calcium [Mass/Vol] 8.8 mg/dL 8.6 - 10. 4 mg/dL [employer] Phone: Chloride [Moles/Vol] 101 mmol/L 98 - 10 7 mmol/L [employer] Phone: CO2 [Moles/Vol] 22 mmol/L 20 - 31 mmol/L [employer] Phone: Creatinine [Mass/Vol] 2.59 mg/dL High 0.50 - 0.90 mg/dL [employer] Phone: Free PSA/Total PSA [Mass fraction] 6.3 g/dL Low 6.4 - 8.3 g/dL [employer] Phone: GFR 26 mL/min Low >60 [employer] Phone: GFR Non- 21 mL/min Low >60 [employer] Work Phone: Glucose [Mass/Vol] 406 mg/dL Critically high 70 - 9 9 mg/dL [employer] Phone: Interpretation and review of laboratory results Abnormal [employer] Phone: Potassium [Moles/Vol] 5.6 mmol/L High 3.7 - 5.3 mmol/L [employer] Phone: Sodium [Moles/Vol] 135 mmol/L 135 - 144 mmol/L [employer] Phone: Urea nitrogen (BldV) [Mass/Vol] 47 mg/dL High 6 - 20 mg/dL [employer] Phone: Urea nitrogen/Creatinine (Bld) [Mass ratio] 18 [employer] Phone: [employer] Phone: EKG Rhythm StripOrdered By: Unknown Result on 12-07-2020 re-labeled to Sinus Rhythm [employer] Phone: [employer] Phone: HCG Qualitative, SerumOrdere d By: Samir Vila on 12-07-2020 hCG Qual Negative NEGATIVE [employer] Phone: Comment on above: Specimens with hCG l evels near the threshold of the test (25 mIU/mL) may give a negative or indeterminate result. In such cases, another test should be performed with a new specimen in 48-72 hours. If early is suspected clinically in this setting, correlation with quantitative serum b-hCG level is suggested. [employer] has confirmed the use of plasma for this test. This has not been cleared or approved by the U.S. Food and Drug Administration. The FDA has determined that such clearance is not necessary. [employer] Phone: Laboratory - Chemistry and C hemistry - challengeOrdered By: Samir Vila on 12-07-2020 GFR/1.73 sq M.predicted MDRD (S/P/Bld) [Vol rate/Area] [employer] Phone: Comment on above: Average GFR for 30-3 9 years old: 107 mL/min/1.73sq m Chronic Kidney Disease: <60 mL/min/1.73sq m Kidney failure: <15 mL/min/1.73sq m eGFR calculated using average adult body mass. Additional eGFR calculator available at: http://www.Pivotstream/multiple_crcl_2012.htm Stage 1: Some kidney damage normal GFR Stage 2: Mild kidney damage GFR 60-89 Stage 3: Moderate kidney damage GFR 30-59 Stage 4: Severe kidney damage GFR 15-29 Stage 5: Severe kidney damage GFR <15 ESRD - chronic treatment by dialysis or transplant LipaseOrdered By: Samir shipley on 12-07-2020 Interpretation and review of laboratory results Abnormal [facility]: Lipase [Catalytic activity/Vol] 4 U/L Low 13 - 60 U/L [facility] [employer] Work Phone: [facility] [employer] Work Phone: Microscopic UrinalysisOrdere d By: Samir Vila on 12-07-2020 - [facility] Work Phone: Amorphous, UA NOT REPORTED None [facility] Work Phone: Bacteria, UA 4+ Abnormal None [facility] Work Phone: Casts UA NOT REPORTED /LPF [facility] Work Phone: Crystals, UA NOT REPORTED None /HPF [facility] Work Phone: Epithelial Cells UA 5 TO 10 [facility] [employer] Work Phone: Interpretation and review of laboratory results Abnormal [facility] [employer] Work Phone: Mucus, UA NOT REPORTED None [facility] Work Phone: Other Observations UA NOT REPORTED NOT REQ. M [facility] Work Phone: RBC, UA 0 TO 2 [facility] [employer] Work Phone: Renal Epithelial, UA NOT REPORTED 0 /HPF [facility] Work Phone: Trichomonas, UA NOT REPORTED None [facility] Work Phone: WBC, UA 5 TO 10 [facility] [employer] Work Phone: Yeast, UA NOT REPORTED None [facility] [employer] Work Phone: [facility] [employer] Work Phone: POCT GlucoseOrdered By: Samir Vila on 12-07-2020 Glucose [Mass/Vol] 161 mg/dL [facility] [employer] Work Phone: Interpretation and review of laboratory results Normal [facility] [employer] Work Phone: [facility] [employer] Work Phone: Urinalysis Reflex to Culture Ordered By: Samir Vila on 12-07-2020 Bilirubin Urine Negative NEGATIVE [facility] Work Phone: Color, UA YELLOW YELLOW [facility] Work Phone: Glucose, Ur Negative NEGATIVE [facility] Work Phone: Interpretation and review of laboratory results Abnormal [facility] Work Phone: Ketones Ql (U) Negative NEGATIVE [facility] Work Phone: Leukocyte esterase Test strip Ql (U) Negative NEGATIVE [facility] [employer] Phone: Nitrite, Urine Positive Abnormal NEGATIVE [facility] Work Phone: pH, UA 5.5 [facility] [employer] Work Phone: Protein, UA Negative NEGATIVE [facility] Work Phone: Specific [place], UA 1.025 High [facility] [employer] Work Phone: Turbidity UA CLEAR CLEAR [facility] Work Phone: Urinalysis Comments NOT REPORTED [facility] [employer] Work Phone: Urine Hgb Negative NEGATIVE [facility] Work Phone: Urobilinogen, Urine Normal Normal [facility] [employer] Work Phone: [facility] Phone: Hemoglobin A1Con 10-21-2020 Glucose [Mass/Vol] 126 mg/dL Normal [facility] Comment on above: Result Comment: The ADA and AACC recommend providing the estimated average glucose result to permit better patient understanding of their HBA1c result. Performed By: #### G LYHGB #### [facility] [employer] [address] [place] [address] Vocational Placement Specialist: Mode Nielson MD #### HH #### [facility] [address] [place], [place] [id number] Vocational Placement Specialist: Andrew Munoz MD HbA1c (Bld) [Mass fraction] 6.0 % Normal 4.0-6.0 [facility] Comment on above: Performed By: #### G LYHGB #### [facility] [address] [place] [address] Vocational Placement Specialist: Mode Nielson MD #### HH #### [facility] [address] [place], [place] [id number] Vocational Placement Specialist: Andrew Munoz MD Hemoglobin W2rOkyknie By: Pamela Denis on 10-21-2020 Glucose [Mass/Vol] 126 mg/dL [facility] [employer] Phone: Comment on above: The ADA and AACC rec ommend providing the estimated average glucose result to permit better patient understanding of their HBA1c result. HbA1c (Bld) [Mass fraction] 6.0 % 4.0 - 6.0 % [facility] Phone: [facility] Phone: Hemoglobin and Hematocrit, B loodOrdered By: Staci Denis on 10-21-2020 Hematocrit (Bld) [Volume fraction] 25.2 % Low 36.3 - 47.1 % [facility] Work Phone: Hemoglobin.gastrointes tinal spec 1 Ql (Stl) 7.6 g/dL Low 11.9 - 15.1 g/dL [employer] Phone: Interpretation and review of laboratory results Abnormal [employer] Phone: [employer] Phone: Hematocrit (Bld) [Volume fraction] 26.5 % Low 36.3 - 47.1 % [employer] Phone: Hemoglobin.gastrointes tinal spec 1 Ql (Stl) 8.3 g/dL Low 11.9 - 15.1 g/dL [employer] Phone: Interpretation and review of laboratory results Abnormal [employer] Phone: [employer] Phone: Hgb/Hcton 10-21-2020 Hematocrit (Bld) [Volume fraction] 25.2 % Low 36.3-47.1 [facility] Comment on above: Performed By: #### H H #### [facility] [address] [place], [place] [id number] Vocational Placement Specialist: Andrew Munoz MD Hemoglobin (Bld) [Mass/Vol] 7.6 g/dL Low 11.9-15.1 [facility] Comment on above: Performed By: #### H H #### [facility] [address] [place], [place] [id number] Vocational Placement Specialist: Andrew Munoz MD Hematocrit (Bld) [Volume fraction] 26.5 % Low 36.3-47.1 [facility] Comment on above: Performed By: #### G LYHGB #### [address] [address] Vocational Placement Specialist: Mode Nielson MD #### HH #### [facility] [address] [place] [address] Vocational Placement Specialist: Andrew Munoz MD Hemoglobin (Bld) [Mass/Vol] 8.3 g/dL Low 11.9-15.1 [facility] Comment on above: Performed By: #### G LYHGB #### [facility] [address] [place] [address] Vocational Placement Specialist: Mode Nielson MD #### HH #### [facility] [address] [place], [place] [id number] Vocational Placement Specialist: Andrew Munoz MD POC Glucose FingerstickOrder ed By: Britni Kendall on 10-21-2020 Glucose [Mass/Vol] 113 mg/dL High 65 - 105 mg/dL [facility] [employer] Phone: Interpretation and review of laboratory results Abnormal [facility] [employer] Phone: [facility] [employer] Work Phone: Glucose [Mass/Vol] 150 mg/dL High 65 - 105 mg/dL [facility] [employer] Phone: Interpretation and review of laboratory results Abnormal [facility] [employer] Phone: [facility] [employer] Phone: APTTOrdered By: Jocelyne linder on 10-20-2020 aPTT Coag (Bld) [Time] 23.1 s Low [facility] [employer] Work Phone: Comment on above: IV Heparin Therapy Range: 62.0-94.0 Interpretation and review of laboratory results Abnormal [facility] [employer] Phone: [facility] [employer] Work Phone: CBC Auto DifferentialOrdered By: Jocelyne Cedillo on 10-20-2020 Absolute Eos # <0.03 [facility] Work Phone: Absolute Immature Granulocyte 0.03 [facility] [employer] Work Phone: Absolute Lymph # 1.97 [facility] Work Phone: Absolute Howell # 0.38 [employer] [employer] [facility] Work Phone: Basophils (Bld) [#/Vol] 0.03 10*3/uL [employer] Work Phone: Basophils/100 WBC (Bld) 0 % 0 - 2 % [employer] Phone: Differential Type NOT REPORTED [employer] Phone: Eosinophils/100 WBC (Bld) 0 % Low 1 - 4 % [employer] Work Phone: Hematocrit (Bld) [Volume fraction] 22.9 % Low 36.3 - 47.1 % [employer] Phone: Hemoglobin.gastrointes tinal spec 1 Ql (Stl) 7.0 g/dL Low 11.9 - 15.1 g/dL [employer] Phone: Immature granulocytes/100 WBC (Bld) 0 % 0 [employer] Work Phone: Interpretation and review of laboratory results Abnormal [employer] Phone: Lymphocytes/100 WBC (Bld) 22 % Low 24 - 43 % [employer] Phone: MCH (RBC) [Entitic mass] 30.7 pg 25.2 - 33.5 pg [employer] Phone: MCHC (RBC) [Mass/Vol] 30.6 g/dL 28.4 - 34.8 g/dL [employer] Phone: MCV (RBC) [Entitic vol] 100.4 fL 82.6 - 102.9 fL [employer] Phone: Monocytes/100 WBC (Bld) 4 % 3 - 12 % [employer] Phone: NRBC Automated 0.0 0.0 per 100 WBC [employer] Phone: Platelet distribution width (Bld) [Ratio] 14.8 % High 11.8 - 14.4 % [employer] Phone: Platelet Estimate NOT REPORTED [employer] Phone: Platelet mean volume (Bld) [Entitic vol] 9.7 fL 8.1 - 13.5 fL [employer] Phone: Platelets (Bld) [#/Vol] 337 10*3/uL [employer] Phone: RBC (Bld) [#/Vol] 2.28 10*6/uL Low 3.95 - 5.11 m/uL [employer] Phone: RBC (Bld) [#/Vol] NOT REPORTED [employer] Phone: Segmented neutrophils/100 WBC (Bld) 73 % High 36 - 65 % [employer] Phone: Segs Absolute 6.43 [employer] Work Phone: WBC (Bld) [#/Vol] 8.8 10*3/uL [employer] Phone: WBC (Bld) [#/Vol] NOT REPORTED [employer] Phone: [employer] Work Phone: CT CHEST ABDOMEN PELVIS W WO CONTRASTOrdered By: Jocelyne Cedillo on 10-20-2020 No acute disease or cause for left flank pain identified. [employer] Phone: EXAMINATION: CT OF T HE CHEST, ABDOMEN AND PELVIS WITH AND WITHOUT CONTRAST 10/20/2020 4:33 pm TECHNIQUE: CT of the chest, abdomen and pelvis was performed with and without the administration of intravenous contrast. Multiplanar reformatted images are provided for review. Dose modulation, iterative reconstruction, and/or weight based adjustment of the mA/kV was utilized to reduce the radiation dose to as low as reasonably achievable. COMPARISON: CT abdomen and pelvis September 07, 2020 and CTA chest June 30, 2013 HISTORY: ORDERING SYSTEM PROVIDED HISTORY: Hematemesis, left flank pain TECHNOLOGIST PROVIDED HISTORY: Hematemesis, left flank pain Decision Support Exception - unselect if not a suspected or confirmed emergency medical condition->Emergency Medical Condition (MA) FINDINGS: Chest: Mediastinum: Calcific coronary artery disease. Thoracic aorta and central portion of the pulmonary artery opacify normally. The ascending thoracic aorta is of normal caliber. Heart size is normal. There is no pericardial effusion. No mediastinal or hilar lymph nodes exceed the CT criteria for abnormal enlargement. Lungs/pleura: Clear Soft Tissues/Bones: Normal Abdomen/Pelvis: Organs: The abdominal wall appears normal. The liver,, pancreas, and adrenals appear normal. Gallbladder surgically absent. Small splenule or hypoplastic spleen. Kidneys appear normal. The bladder appears normal. GI/Bowel: The stomach,small bowel, and colon appear normal. Increased stool throughout the colon. Appendix is not identified. Pelvis: IUD in the body of the uterus. Peritoneum/Retroperitoneu m: The abdominal aorta and iliac arteries are normal in caliber. There is no pathologic adenopathy. Bones/Soft Tissues: Subcutaneous pain pump left anterior abdominal wall with a lead extending into the lumbar spinal canal terminating in the thoracic canal. [employer] Work Phone: Aki, [employer] Incoming Radiant Results From [employer] - 10/20/2020 5:22 PM EDT EXAMINATION: CT OF THE CHEST, ABDOMEN AND PELVIS WITH AND WITHOUT CONTRAST 10/20/2020 4:33 pm TECHNIQUE: CT of the chest, abdomen and pelvis was performed with and without the administration of intravenous contrast. Multiplanar reformatted images are provided for review. Dose modulation, iterative reconstruction, and/or weight based adjustment of the mA/kV was utilized to reduce the radiation dose to as low as reasonably achievable. COMPARISON: CT abdomen and pelvis September 07, 2020 and CTA chest June 30, 2013 HISTORY: ORDERING SYSTEM PROVIDED HISTORY: Hematemesis, left flank pain TECHNOLOGIST PROVIDED HISTORY: Hematemesis, left flank pain Decision Support Exception - unselect if not a suspected or confirmed emergency medical condition->Emergency Medical Condition (MA) FINDINGS: Chest: Mediastinum: Calcific coronary artery disease. Thoracic aorta and central portion of the pulmonary artery opacify normally. The ascending thoracic aorta is of normal caliber. Heart size is normal. There is no pericardial effusion. No mediastinal or hilar lymph nodes exceed the CT criteria for abnormal enlargement. Lungs/pleura: Clear Soft Tissues/Bones: Normal Abdomen/Pelvis: Organs: The abdominal wall appears normal. The liver,, pancreas, and adrenals appear normal. Gallbladder surgically absent. Small splenule or hypoplastic spleen. Kidneys appear normal. The bladder appears normal. GI/Bowel: The stomach,small bowel, and colon appear normal. Increased stool throughout the colon. Appendix is not identified. Pelvis: IUD in the body of the uterus. Peritoneum/Retroperitoneu m: The abdominal aorta and iliac arteries are normal in caliber. There is no pathologic adenopathy. Bones/Soft Tissues: Subcutaneous pain pump left anterior abdominal wall with a lead extending into the lumbar spinal canal terminating in the thoracic canal. IMPRESSION: No acute disease or cause for left flank pain identified. [employer] Phone: [employer] Phone: Comprehensive Metabolic Pane lOrdered By: Jocelyne Cedillo on 10-20-2020 Albumin [Mass/Vol] 2.6 g/dL Low 3.5 - 5.2 g/dL [employer] Phone: Albumin/Globulin [Mass ratio] 1.4 {ratio} [employer] Phone: ALP (Bld) [Catalytic activity/Vol] 73 U/L 35 - 104 U/L [employer] Phone: ALT [Catalytic activity/Vol] 20 U/L 5 - 33 U/L [employer] Phone: Anion gap [Moles/Vol] 8 mmol/L Low 9 - 17 mmol/L [employer] Phone: AST [Catalytic activity/Vol] 20 U/L <32 [employer] Phone: Bilirubin [Mass/Vol] mg/dL Low 0.3 - 1 .2 mg/dL [employer] Phone: Calcium [Mass/Vol] 7.0 mg/dL Low 8.6 - 10. 4 mg/dL [employer] Phone: Chloride [Moles/Vol] 112 mmol/L High 98 - 10 7 mmol/L [employer] Phone: CO2 [Moles/Vol] 19 mmol/L Low 20 - 31 mmol/L [employer] Phone: Creatinine [Mass/Vol] 1.34 mg/dL High 0.50 - 0.90 mg/dL [employer] Phone: Free PSA/Total PSA [Mass fraction] 4.5 g/dL Low 6.4 - 8.3 g/dL [employer] Phone: GFR 55 mL/min Low >60 [employer] Phone: GFR Non- 45 mL/min Low >60 [employer] Phone: Glucose [Mass/Vol] 189 mg/dL High 70 - 99 mg/dL [employer] Phone: Interpretation and review of laboratory results Abnormal [employer] Phone: Potassium [Moles/Vol] 3.8 mmol/L 3.7 - 5.3 mmol/L [employer] Phone: Sodium [Moles/Vol] 139 mmol/L 135 - 144 mmol/L [employer] Phone: Urea nitrogen (BldV) [Mass/Vol] 18 mg/dL 6 - 20 mg/dL [employer] Phone: Urea nitrogen/Creatinine (Bld) [Mass ratio] 13 [employer] Phone: [employer] Phone: Laboratory - Chemistry and C hemistry - challengeOrdered By: Jocelyne Cedillo on 10-20-2020 GFR/1.73 sq M.predicted MDRD (S/P/Bld) [Vol rate/Area] [employer] Phone: Comment on above: Average GFR for 30-3 9 years old: 107 mL/min/1.73sq m Chronic Kidney Disease: <60 mL/min/1.73sq m Kidney failure: <15 mL/min/1.73sq m eGFR calculated using average adult body mass. Additional eGFR calculator available at: http://www.[employer]/multiple_crcl_2012.htm Stage 1: Some kidney damage normal GFR Stage 2: Mild kidney damage GFR 60-89 Stage 3: Moderate kidney damage GFR 30-59 Stage 4: Severe kidney damage GFR 15-29 Stage 5: Severe kidney damage GFR <15 ESRD - chronic treatment by dialysis or transplant Lactic Acid, PlasmaOrdered B y: Jocelyne Cedillo on 10-20-2020 Lactate [Moles/Vol] 2 mmol/L 0.5 - 2. 2 mmol/L [employer] Phone: Lactic Acid, Whole Blood NOT REPORTED 0.7 - 2.1 mmol/L [employer] Phone: [employer] Phone: LipaseOrdered By: Jocelyne Rachbob vargas on 10-20-2020 Interpretation and review of laboratory results Abnormal [employer] Phone: Lipase [Catalytic activity/Vol] 5 U/L Low 13 - 60 U/L [employer] Phone: [employer] Phone: Protime-INROrdered By: Jocelyne eCdillo on 10-20-2020 INR Coag (Bld) [Relative time] 1.1 {INR} [employer] Phone: Comment on above: Non-therapeutic Range: INR = 0.9-1.2 Therapeutic Range: Moderate Anticoagulant Intensity: INR = 2.0-3.0 High Anticoagulant Intensity: INR = 2.5-3.5 Interpretation and review of laboratory results Abnormal [employer] Phone: PT Coag (PPP) [Time] 14.3 s High [employer] Phone: [employer] Phone: CBC auto differentialOrdered By: Kian Woodson on 10-16-2020 Absolute Eos # <0.03 [facility] Work Phone: Absolute Immature Granulocyte 0.05 [employer] Work Phone: Absolute Lymph # 4.20 High [facility] Work Phone: Absolute Howell # 1.23 High [facility] Work Phone: Basophils (Bld) [#/Vol] 0.05 10*3/uL [employer] Work Phone: Basophils/100 WBC (Bld) 0 % 0 - 2 % [employer] Phone: Differential Type NOT REPORTED [employer] Phone: Eosinophils/100 WBC (Bld) 0 % Low 1 - 4 % [employer] Phone: Hematocrit (Bld) [Volume fraction] 31.5 % Low 36.3 - 47.1 % [employer] Phone: Hemoglobin.gastrointes tinal spec 1 Ql (Stl) 10.4 g/dL Low 11.9 - 15.1 g/dL [employer] Phone: Immature granulocytes/100 WBC (Bld) 0 % 0 [employer] Phone: Interpretation and review of laboratory results Abnormal [employer] Phone: Lymphocytes/100 WBC (Bld) 25 % 24 - 43 % [employer] Phone: MCH (RBC) [Entitic mass] 30.9 pg 25.2 - 33.5 pg [employer] Phone: MCHC (RBC) [Mass/Vol] 33.0 g/dL 28.4 - 34.8 g/dL [employer] Phone: MCV (RBC) [Entitic vol] 93.5 fL 82.6 - 102.9 fL [employer] Phone: Monocytes/100 WBC (Bld) 7 % 3 - 12 % [employer] Phone: NRBC Automated 0.1 High 0.0 per 100 WBC [employer] Phone: Platelet distribution width (Bld) [Ratio] 15.8 % High 11.8 - 14.4 % [employer] Phone: Platelet Estimate NOT REPORTED [employer] Phone: Platelet mean volume (Bld) [Entitic vol] 9.8 fL 8.1 - 13.5 fL [employer] Phone: Platelets (Bld) [#/Vol] 407 10*3/uL [employer] Phone: RBC (Bld) [#/Vol] 3.37 10*6/uL Low 3.95 - 5.11 m/uL [employer] Phone: RBC (Bld) [#/Vol] NOT REPORTED [employer] Phone: Segmented neutrophils/100 WBC (Bld) 68 % High 36 - 65 % [employer] Phone: Segs Absolute 11.63 High [employer] Work Phone: WBC (Bld) [#/Vol] 17.2 10*3/uL High [employer] Phone: WBC (Bld) [#/Vol] NOT REPORTED [employer] Phone: Comprehensive Metabolic Pane lOrdered By: Kian Woodson on 10-16-2020 Albumin [Mass/Vol] 3.6 g/dL 3.5 - 5.2 g/dL [employer] Phone: Albumin/Globulin [Mass ratio] 1.4 {ratio} [employer] Phone: ALP (Bld) [Catalytic activity/Vol] 108 U/L High 35 - 104 U/L [employer] Phone: ALT [Catalytic activity/Vol] 26 U/L 5 - 33 U/L [employer] Phone: Anion gap [Moles/Vol] 8 mmol/L Low 9 - 17 mmol/L [employer] Phone: AST [Catalytic activity/Vol] 23 U/L <32 [employer] Phone: Bilirubin [Mass/Vol] 0.60 mg/dL 0.3 - 1 .2 mg/dL [employer] Phone: Calcium [Mass/Vol] 8.6 mg/dL 8.6 - 10. 4 mg/dL [employer] Phone: Chloride [Moles/Vol] 108 mmol/L High 98 - 10 7 mmol/L [employer] Phone: CO2 [Moles/Vol] 22 mmol/L 20 - 31 mmol/L [employer] Phone: Creatinine [Mass/Vol] 1.61 mg/dL High 0.50 - 0.90 mg/dL [employer] Phone: Free PSA/Total PSA [Mass fraction] 6.1 g/dL Low 6.4 - 8.3 g/dL [employer] Phone: GFR 44 mL/min Low >60 [employer] Phone: GFR Non- 37 mL/min Low >60 [employer] Phone: Glucose [Mass/Vol] 222 mg/dL High 70 - 99 mg/dL [employer] Phone: Interpretation and review of laboratory results Abnormal [employer] Phone: Potassium [Moles/Vol] 4.5 mmol/L 3.7 - 5.3 mmol/L [employer] Phone: Sodium [Moles/Vol] 138 mmol/L 135 - 144 mmol/L [employer] Work Phone: Urea nitrogen (BldV) [Mass/Vol] 14 mg/dL 6 - 20 mg/dL [employer] Phone: Urea nitrogen/Creatinine (Bld) [Mass ratio] 9 [employer] Phone: Laboratory - Chemistry and C hemistry - challengeOrdered By: Kian Woodson on 10-16-2020 GFR/1.73 sq M.predicted MDRD (S/P/Bld) [Vol rate/Area] [employer] Phone: Comment on above: Average GFR for 30-3 9 years old: 107 mL/min/1.73sq m Chronic Kidney Disease: <60 mL/min/1.73sq m Kidney failure: <15 mL/min/1.73sq m eGFR calculated using average adult body mass. Additional eGFR calculator available at: http://www.[employer]/multiple_crcl_2012.htm Stage 1: Some kidney damage normal GFR Stage 2: Mild kidney damage GFR 60-89 Stage 3: Moderate kidney damage GFR 30-59 Stage 4: Severe kidney damage GFR 15-29 Stage 5: Severe kidney damage GFR <15 ESRD - chronic treatment by dialysis or transplant Microscopic UrinalysisOrdere d By: Kian Woodson on 10-16-2020 - [employer] Work Phone: Amorphous, UA NOT REPORTED None [facility] Work Phone: Bacteria, UA TRACE Abnormal None [employer] Work Phone: Casts UA NOT REPORTED /LPF [employer] Work Phone: Crystals, UA NOT REPORTED None /HPF [facility] Work Phone: Epithelial Cells UA 0 TO 2 [employer] Work Phone: Interpretation and review of laboratory results Abnormal [employer] Work Phone: Mucus, UA TRACE Abnormal None [facility] Work Phone: Other Observations UA NOT REPORTED NOT REQ. M [facility] Work Phone: RBC, UA 50 TO 100 [facility] Work Phone: Renal Epithelial, UA NOT REPORTED 0 /HPF Me [facility] Work Phone: Trichomonas, UA NOT REPORTED None [facility] Work Phone: WBC, UA 2 TO 5 [facility] Work Phone: Yeast, UA NOT REPORTED None [facility] [employer] Work Phone: Urinalysis Reflex to Culture Ordered By: Kian Woodson on 10-16-2020 Bilirubin Urine Negative NEGATIVE [facility] Work Phone: Color, UA RED Abnormal YELLOW [facility] [employer] Work Phone: Glucose, Ur Negative NEGATIVE [facility] [employer] Work Phone: Interpretation and review of laboratory results Abnormal [facility] [employer] Work Phone: Ketones Ql (U) Negative NEGATIVE [facility] Work Phone: Leukocyte esterase Test strip Ql (U) Negative NEGATIVE [facility] [employer] Work Phone: Nitrite, Urine Negative NEGATIVE [facility] Work Phone: pH, UA 5.5 [facility] [employer] Work Phone: Protein, UA 1+ Abnormal NEGATIVE [facility] [employer] Work Phone: Specific [place], UA 1.025 High [facility] [employer] Work Phone: Turbidity UA CLOUDY Abnormal CLEAR [facility] [employer] Work Phone: Urinalysis Comments NOT REPORTED [facility] [employer] Work Phone: Urine Hgb 3+ Abnormal NEGATIVE [facility] [employer] Work Phone: Urobilinogen, Urine Normal Normal [facility] [employer] Work Phone: APTTon 09-15-2020 aPTT Coag (Bld) [Time] 31.2 s Fl [employer] Phone: Comment on above: IV Heparin Therapy Range: 62.0-94.0 Beta-Hydroxybuterateon 09-15 Beta-Hydroxybutyrate 0.13 mmol/L 0.02 - 0.27 mmol/L [employer] Phone: Brain Natriuretic Peptideon 09-15-2020 Natriuretic peptide B (Bld) [Mass/Vol] 111 pg/mL <300 [employer] Phone: Comment on above: Pro-BNP results cristina ot be compared to BNP results. Natriuretic peptide B (Bld) [Mass/Vol] Pro-BNP Reference Range: [employer] Phone: Comment on above: Rule Out: <300 Bell Zone: Age <50 300-450 Age 50-75 300-900 Age >75 300-1800 Usually represents mild to moderate HF but other cardiopulmonary causes cannot be ruled out. Rule In: Age <50 >450 Age 50-75 >900 Age >75 >1800 CBC Auto Differentialon 09-05 Basophils (Bld) [#/Vol] 0.05 10*3/uL [employer] Phone: Basophils/100 WBC (Bld) 0 % 0 - 2 % [employer] Phone: Differential Type NOT REPORTED [employer] Phone: Eosinophils (Bld) [#/Vol] 10*3/uL [employer] Phone: Eosinophils/100 WBC (Bld) 0 % Low 1 - 4 % [employer] Phone: Hematocrit (Bld) [Volume fraction] 23.4 % Low 36.3 - 47.1 % [employer] Phone: Hemoglobin.gastrointes tinal spec 1 Ql (Stl) 7.2 g/dL Low 11.9 - 15.1 g/dL [employer] Phone: Immature granulocytes (Bld) [#/Vol] 0.05 10*3/uL [employer] Phone: Immature granulocytes (Bld) [#/Vol] 0 % 0 [employer] Phone: Interpretation and review of laboratory results Abnormal [employer] Phone: Lymphocytes (Bld) [#/Vol] 3.61 10*3/uL [employer] Phone: Lymphocytes/100 WBC (Bld) 26 % 24 - 43 % [employer] Phone: MCH (RBC) [Entitic mass] 30.8 pg 25.2 - 33.5 pg [employer] Phone: MCHC (RBC) [Mass/Vol] 30.8 g/dL 28.4 - 34.8 g/dL [employer] Phone: MCV (RBC) [Entitic vol] 100.0 fL 82.6 - 102.9 fL [employer] Phone: Monocytes (Bld) [#/Vol] 0.77 10*3/uL [employer] Phone: Monocytes/100 WBC (Bld) 6 % 3 - 12 % [employer] Phone: Platelet distribution width (Bld) [Ratio] 14.4 % 11.8 - 14.4 % [employer] Phone: Platelet mean volume (Bld) [Entitic vol] 10.5 fL 8.1 - 13.5 fL [employer] Phone: Platelets (Bld) [#/Vol] NOT REPORTED [employer] Phone: Platelets (Bld) [#/Vol] 324 10*3/uL [employer] Phone: RBC (Bld) [#/Vol] NOT REPORTED [employer] Phone: RBC (Bld) [#/Vol] 2.34 10*6/uL Low 3.95 - 5.11 m/uL [employer] Phone: Segmented neutrophils/100 WBC (Bld) 68 % High 36 - 65 % [employer] Phone: Segs Absolute 9.58 High [employer] Work Phone: WBC (Bld) [#/Vol] 14.1 10*3/uL High [employer] Work Phone: WBC (Bld) [#/Vol] NOT REPORTED [employer] Phone: WBC (Bld) [#/Vol] 0.0 10*3/uL 0.0 per 100 WBC [employer] Phone: Comprehensive Metabolic Pane l w/ Reflex to MGon 09-15-2020 Albumin [Mass/Vol] 3.7 g/dL 3.5 - 5.2 g/dL [employer] Phone: Albumin/Globulin [Mass ratio] 1.4 {ratio} [employer] Phone: ALP (Bld) [Catalytic activity/Vol] 124 U/L High 35 - 104 U/L [employer] Phone: ALT [Catalytic activity/Vol] 18 U/L 5 - 33 U/L [employer] Phone: Anion gap [Moles/Vol] 10 mmol/L 9 - 17 mmol/L [employer] Phone: AST [Catalytic activity/Vol] 20 U/L <32 [employer] Phone: Bilirubin [Mass/Vol] 0.15 mg/dL Low 0.3 - 1 .2 mg/dL [employer] Phone: Calcium [Mass/Vol] 8.7 mg/dL 8.6 - 10. 4 mg/dL [employer] Phone: Chloride [Moles/Vol] 101 mmol/L 98 - 10 7 mmol/L [employer] Phone: CO2 [Moles/Vol] 24 mmol/L 20 - 31 mmol/L [employer] Phone: Creatinine [Mass/Vol] 1.63 mg/dL High 0.50 - 0.90 mg/dL [employer] Phone: Free PSA/Prostate specific Ag.total [Mass fraction] 6.4 g/dL 6.4 - 8.3 g/dL [employer] Phone: GFR 44 mL/min Low >60 [employer] Phone: GFR Non- 36 mL/min Low >60 [employer] Phone: Glucose [Mass/Vol] 238 mg/dL High 70 - 99 mg/dL [employer] Phone: Potassium [Moles/Vol] 4.4 mmol/L 3.7 - 5.3 mmol/L [employer] Phone: Sodium [Moles/Vol] 135 mmol/L 135 - 144 mmol/L [employer] Phone: Urea nitrogen (BldV) [Mass/Vol] 15 mg/dL 6 - 20 mg/dL [employer] Phone: Urea nitrogen/Creatinine (Bld) [Mass ratio] 9 [employer] Phone: Lipaseon 09-15-2020 Lipase [Catalytic activity/Vol] 5 U/L Low 13 - 60 U/L [employer] Phone: Otheron 09-15-2020 GFR/1.73 sq M.predicted MDRD (S/P/Bld) [Vol rate/Area] [employer] Phone: Comment on above: Average GFR for 30-3 9 years old: 107 mL/min/1.73sq m Chronic Kidney Disease: <60 mL/min/1.73sq m Kidney failure: <15 mL/min/1.73sq m eGFR calculated using average adult body mass. Additional eGFR calculator available at: http://www.[employer]/multiple_crcl_2012.htm Stage 1: Some kidney damage normal GFR Stage 2: Mild kidney damage GFR 60-89 Stage 3: Moderate kidney damage GFR 30-59 Stage 4: Severe kidney damage GFR 15-29 Stage 5: Severe kidney damage GFR <15 ESRD - chronic treatment by dialysis or transplant Interpretation and review of laboratory results Abnormal [employer] Phone: Protime-INRon 09-15-2020 INR Coag (Bld) [Relative time] 1.2 {INR} [employer] Phone: Comment on above: Non-therapeutic Range: INR = 0.9-1.2 Therapeutic Range: Moderate Anticoagulant Intensity: INR = 2.0-3.0 High Anticoagulant Intensity: INR = 2.5-3.5 Interpretation and review of laboratory results Abnormal [employer] Phone: PT Coag (PPP) [Time] 14.8 s High [employer] Phone: TYPE AND SCREENon 09-15-2020 ABO/Rh Positive [employer] Phone: Arm Band Number [id number] [employer] [facility] Work Phone: Expiration Date 09/18/2020,2359 [employer] Work Phone: XR CHEST PORTABLEon 09-16-19 21 [employer], [employer] Incoming Radiant Results From [employer] - 09/15/2020 9:36 AM EDT EXAMINATION: ONE XRAY VIEW OF THE CHEST 09/15/2020 9:18 am COMPARISON: 09/07/2020 HISTORY: ORDERING SYSTEM PROVIDED HISTORY: Congestion TECHNOLOGIST PROVIDED HISTORY: Congestion FINDINGS: Single portable frontal view of the chest is submitted for review. The cardiac silhouette is normal in size. Lung parenchyma is clear without focal airspace consolidation, sizeable pleural effusion, or pneumothorax. Vascular port terminates overlying the expected location of the SVC. Trachea is midline. Visualized osseous structures and soft tissues are grossly intact. IMPRESSION: No acute cardiopulmonary pathology. [employer] Phone: EXAMINATION: ONE XRA Y VIEW OF THE CHEST 09/15/2020 9:18 am COMPARISON: 09/07/2020 HISTORY: ORDERING SYSTEM PROVIDED HISTORY: Congestion TECHNOLOGIST PROVIDED HISTORY: Congestion FINDINGS: Single portable frontal view of the chest is submitted for review. The cardiac silhouette is normal in size. Lung parenchyma is clear without focal airspace consolidation, sizeable pleural effusion, or pneumothorax. Vascular port terminates overlying the expected location of the SVC. Trachea is midline. Visualized osseous structures and soft tissues are grossly intact. [employer] Work Phone: No acute cardiopulmo nary pathology. [employer] Phone: Glucose, Whole Bloodon 09-12 Glucose [Mass/Vol] 232 mg/dL High 74 - 100 mg/dL [facility]: Interpretation and review of laboratory results Abnormal [facility] Phone: Hematologyon 09-12-2020 Blood product type Nom (BPU) Leukocyte Reduced Red Cell [facility] Phone: Hemoglobin and hematocrit, b loodon 09-12-2020 Hematocrit (Bld) [Volume fraction] 24.4 % Low 36.3 - 47.1 % [facility] Phone: Hemoglobin.gastrointes tinal spec 1 Ql (Stl) 7.8 g/dL Low 11.9 - 15.1 g/dL [employer] Phone: Interpretation and review of laboratory results Abnormal [facility] Phone: Otheron 09-12-2020 Crossmatch Result COMPATIBLE [facility] Work Phone: Dispense Status TRANSFUSED [facility] Work Phone: Transfusion Status OK TO TRANSFUSE [facility] [employer] Work Phone: Unit Divison 0 [facility] Work Phone: POCT Glucoseon 09-12-2020 Glucose [Mass/Vol] 232 mg/dL [facility] Work Phone: Interpretation and review of laboratory results Normal [facility] Work Phone: QC OK? yes [facility] Work Phone: TYPE AND SCREENon 09-12-2020 ABO/Rh Positive [facility] Work Phone: Arm Band Number [id number] [facility] Work Phone: Expiration Date 09/14/2020,2359 [facility] Work Phone: Unit Number [id number] [facility] Work Phone: Unit Number [id number] [facility] Work Phone: Basic Metabolic Panelon Anion gap [Moles/Vol] 7 mmol/L Low 9 - 17 mmol/L [facility] Phone: Calcium [Mass/Vol] 8.2 mg/dL Low 8.6 - 10. 4 mg/dL [facility] Work Phone: Chloride [Moles/Vol] 109 mmol/L High 98 - 10 7 mmol/L [facility] Work Phone: CO2 [Moles/Vol] 22 mmol/L 20 - 31 mmol/L [facility] Work Phone: Creatinine [Mass/Vol] 1.34 mg/dL High 0.50 - 0.90 mg/dL [employer] Work Phone: GFR 55 mL/min Low >60 [employer] Work Phone: GFR Non- 45 mL/min Low >60 [employer] Work Phone: Glucose [Mass/Vol] 125 mg/dL High 70 - 99 mg/dL [employer] Phone: Interpretation and review of laboratory results Abnormal [employer] Phone: Potassium [Moles/Vol] 4.9 mmol/L 3.7 - 5.3 mmol/L [employer] Phone: Sodium [Moles/Vol] 138 mmol/L 135 - 144 mmol/L [employer] Phone: Urea nitrogen (BldV) [Mass/Vol] 24 mg/dL High 6 - 20 mg/dL [employer] Phone: Urea nitrogen/Creatinine (Bld) [Mass ratio] 18 [employer] Phone: CBC Auto Differentialon 04-0 Basophils (Bld) [#/Vol] 0.00 10*3/uL [employer] Phone: Basophils/100 WBC (Bld) 0 % 0 - 2 % [employer] Phone: Differential Type NOT REPORTED [employer] Phone: Eosinophils (Bld) [#/Vol] 0.00 10*3/uL [employer] Phone: Eosinophils/100 WBC (Bld) 0 % Low 1 - 4 % [employer] Phone: Hematocrit (Bld) [Volume fraction] 19.4 % Critically low 36.3 - 47.1 % [employer] Phone: Hemoglobin.gastrointes tinal spec 1 Ql (Stl) 5.9 g/dL Critically low 11.9 - 15.1 g/dL [employer] Phone: Immature granulocytes (Bld) [#/Vol] 0 % 0 [employer] Phone: Immature granulocytes (Bld) [#/Vol] 0.00 10*3/uL [employer] Phone: Interpretation and review of laboratory results Abnormal [employer] Phone: Lymphocytes (Bld) [#/Vol] 6.16 10*3/uL High [employer] Phone: Lymphocytes/100 WBC (Bld) 38 % 24 - 43 % [employer] Phone: MCH (RBC) [Entitic mass] 30.7 pg 25.2 - 33.5 pg [employer] Phone: MCHC (RBC) [Mass/Vol] 30.4 g/dL 28.4 - 34.8 g/dL [employer] Phone: MCV (RBC) [Entitic vol] 101.0 fL 82.6 - 102.9 fL [employer] Phone: Monocytes (Bld) [#/Vol] 0.65 10*3/uL [employer] Phone: Monocytes/100 WBC (Bld) 4 % 3 - 12 % [employer] Phone: Morphology Tc (Bld) [Interp] Normal [employer] Phone: Platelet distribution width (Bld) [Ratio] 14.6 % High 11.8 - 14.4 % [employer] Phone: Platelet mean volume (Bld) [Entitic vol] 10.7 fL 8.1 - 13.5 fL [employer] Phone: Platelets (Bld) [#/Vol] 286 10*3/uL [employer] Phone: Platelets (Bld) [#/Vol] NOT REPORTED [employer] Phone: RBC (Bld) [#/Vol] 1.92 10*6/uL Low 3.95 - 5.11 m/uL [employer] Phone: RBC (Bld) [#/Vol] NOT REPORTED [employer] Phone: Segmented neutrophils/100 WBC (Bld) 58 % 36 - 65 % [employer] Phone: Segs Absolute 9.39 High [employer] Work Phone: WBC (Bld) [#/Vol] 0.0 10*3/uL 0.0 per 100 WBC [employer] Phone: WBC (Bld) [#/Vol] 16.2 10*3/uL High [employer] Phone: WBC (Bld) [#/Vol] NOT REPORTED [employer] Phone: Hemoglobin and Hematocrit, B loodon 09-11-2020 Hematocrit (Bld) [Volume fraction] 19.9 % Critically low 36.3 - 47.1 % [employer] Phone: Hemoglobin.gastrointes tinal spec 1 Ql (Stl) 6.3 g/dL Critically low 11.9 - 15.1 g/dL [employer] Phone: Interpretation and review of laboratory results Abnormal [employer] Phone: Hemoglobin and hematocrit, b loodon 09-11-2020 Hematocrit (Bld) [Volume fraction] 23.3 % Low 36.3 - 47.1 % [employer] Phone: Hemoglobin.gastrointes tinal spec 1 Ql (Stl) 7.5 g/dL Low 11.9 - 15.1 g/dL [employer] Phone: Interpretation and review of laboratory results Abnormal [employer] Phone: Otheron 09-11-2020 GFR/1.73 sq M.predicted MDRD (S/P/Bld) [Vol rate/Area] [employer] Phone: Comment on above: Average GFR for 30-3 9 years old: 107 mL/min/1.73sq m Chronic Kidney Disease: <60 mL/min/1.73sq m Kidney failure: <15 mL/min/1.73sq m eGFR calculated using average adult body mass. Additional eGFR calculator available at: http://www.[place] [employer]/multiple_crcl_2012.htm Stage 1: Some kidney damage normal GFR Stage 2: Mild kidney damage GFR 60-89 Stage 3: Moderate kidney damage GFR 30-59 Stage 4: Severe kidney damage GFR 15-29 Stage 5: Severe kidney damage GFR <15 ESRD - chronic treatment by dialysis or transplant CBC Auto Differentialon 04-0 Basophils (Bld) [#/Vol] 0.05 10*3/uL [employer] Phone: Basophils/100 WBC (Bld) 0 % 0 - 2 % [employer] Phone: Differential Type NOT REPORTED [employer] Phone: Eosinophils (Bld) [#/Vol] 10*3/uL [employer] Phone: Eosinophils/100 WBC (Bld) 0 % Low 1 - 4 % [employer] Phone: Erythrocyte distribution width (RBC) [Ratio] 14.3 % 11.8 - 14.4 % [employer] Phone: Hematocrit (Bld) [Volume fraction] 26.0 % Low 36.3 - 47.1 % [employer] Phone: Hemoglobin (Bld) [Mass/Vol] 8.2 g/dL Low 11.9 - 15.1 g/dL [employer] Phone: Immature granulocytes (Bld) [#/Vol] 0.07 10*3/uL [employer] Phone: Immature granulocytes (Bld) [#/Vol] 0 % 0 [employer] Phone: Interpretation and review of laboratory results Abnormal [employer] Phone: Lymphocytes (Bld) [#/Vol] 4.75 10*3/uL High [employer] Phone: Lymphocytes/100 WBC (Bld) 29 % 24 - 43 % [employer] Work Phone: MCH (RBC) [Entitic mass] 30.9 pg 25.2 - 33.5 pg [employer] Phone: MCHC (RBC) [Mass/Vol] 31.5 g/dL 28.4 - 34.8 g/dL [employer] Phone: MCV (RBC) [Entitic vol] 98.1 fL 82.6 - 102.9 fL [employer] Work Phone: Monocytes (Bld) [#/Vol] 1.05 10*3/uL [employer] Phone: Monocytes/100 WBC (Bld) 6 % 3 - 12 % [employer] Phone: Platelet mean volume (Bld) [Entitic vol] 10.3 fL 8.1 - 13.5 fL [employer] Phone: Platelets (Bld) [#/Vol] NOT REPORTED [employer] Phone: Platelets (Bld) [#/Vol] 368 10*3/uL [employer] Phone: RBC (Bld) [#/Vol] 2.65 10*6/uL Low 3.95 - 5.11 m/uL [employer] Phone: RBC morphology finding Nom (Bld) NOT REPORTED [employer] Phone: Segmented neutrophils/100 WBC (Bld) 65 % 36 - 65 % [employer] Work Phone: Segs Absolute 10.61 High [employer] Work Phone: WBC (Bld) [#/Vol] 16.5 10*3/uL High [employer] Work Phone: WBC (Bld) [#/Vol] 0.0 10*3/uL 0.0 per 100 WBC [employer] Work Phone: WBC Morphology NOT REPORTED [facility] Work Phone: Comprehensive Metabolic Pane wilver 09-10-2020 Albumin [Mass/Vol] 4 g/dL 3.5 - 5.2 g/dL [facility] Phone: Albumin/Globulin [Mass ratio] 1.4 {ratio} [facility] Work Phone: ALP [Catalytic activity/Vol] 118 U/L High 35 - 104 U/L [facility] Work Phone: ALT [Catalytic activity/Vol] 30 U/L 5 - 33 U/L [facility] Phone: Anion gap [Moles/Vol] 12 mmol/L 9 - 17 mmol/L [facility] Phone: AST [Catalytic activity/Vol] 36 U/L High <32 [facility] Work Phone: Bilirubin Ql (U) 0.17 mg/dL Low 0.3 - 1.2 mg/dL [employer] Phone: Bun/Cre Ratio 16 [facility] Work Phone: Calcium [Mass/Vol] 8.5 mg/dL Low 8.6 - 10. 4 mg/dL [facility] Phone: Chloride [Moles/Vol] 106 mmol/L 98 - 10 7 mmol/L [facility] Work Phone: CO2 [Moles/Vol] 20 mmol/L 20 - 31 mmol/L [facility] Work Phone: Creatinine [Mass/Vol] 1.6 mg/dL High 0.50 - 0.90 mg/dL [employer] Phone: GFR 45 mL/min Low >60 [employer] Work Phone: GFR Non- 37 mL/min Low >60 [employer] Work Phone: Glucose [Mass/Vol] 130 mg/dL High 70 - 99 mg/dL [employer] Phone: Potassium [Moles/Vol] 4.8 mmol/L 3.7 - 5.3 mmol/L [employer] Phone: Protein [Mass/Vol] 6.9 g/dL 6.4 - 8.3 g/dL [employer] Phone: Sodium [Moles/Vol] 138 mmol/L 135 - 144 mmol/L [employer] Phone: Urea nitrogen [Mass/Vol] 26 mg/dL High 6 - 20 mg/dL [employer] Phone: Lipaseon 09-10-2020 Lipase [Catalytic activity/Vol] 5 U/L Low 13 - 60 U/L [employer] Phone: Metabolic Panelon 09-10-2020 GFR/1.73 sq M predicted among non-blacks MDRD (S/P/Bld) [Vol rate/Area] [employer] Phone: Comment on above: Average GFR for 30-3 9 years old: 107 mL/min/1.73sq m Chronic Kidney Disease: <60 mL/min/1.73sq m Kidney failure: <15 mL/min/1.73sq m eGFR calculated using average adult body mass. Additional eGFR calculator available at: http://www.[employer]/multiple_crcl_2012.htm Stage 1: Some kidney damage normal GFR Stage 2: Mild kidney damage GFR 60-89 Stage 3: Moderate kidney damage GFR 30-59 Stage 4: Severe kidney damage GFR 15-29 Stage 5: Severe kidney damage GFR <15 ESRD - chronic treatment by dialysis or transplant Otheron 09-10-2020 Interpretation and review of laboratory results Abnormal [employer] Phone: , Urineon Beta HCG ( test) Ql (U) Negative NEGATIVE [employer] Phone: Comment on above: Specimens with hCG l evels near the threshold of the test (25 mIU/mL) may give a negative or indeterminate result. In such cases, another test should be performed with a new specimen in 48-72 hours. If early is suspected clinically in this setting, correlation with quantitative serum b-hCG level is suggested. [employer] has confirmed the use of plasma for this test. This has not been cleared or approved by the U.S. Food and Drug Administration. The FDA has determined that such clearance is not necessary. Urinalysis with Microscopico n 09-10-2020 Amorphous, UA NOT REPORTED None [facility] Work Phone: Bacteria, UA NOT REPORTED None [facility] Work Phone: Bilirubin Urine Negative NEGATIVE [facility] Work Phone: Casts UA NOT REPORTED /LPF [facility] Phone: Color, UA YELLOW YELLOW [facility] Phone: Crystals, UA NOT REPORTED None /HPF [facility] Work Phone: Epithelial Cells UA 5 TO 10 [facility] Phone: Glucose, Ur Negative NEGATIVE [facility] Phone: Interpretation and review of laboratory results Abnormal [facility] Phone: Ketones Ql (U) Negative NEGATIVE [facility] Work Phone: Leukocyte esterase Test strip Ql (U) Negative NEGATIVE [facility] Phone: Mucus, UA NOT REPORTED None [facility] Phone: Nitrite, Urine Negative NEGATIVE [facility] Work Phone: Other Observations UA NOT REPORTED NOT REQ. M [facility] [employer] Phone: pH, UA 5.5 [facility] Phone: Protein (U) [Mass/Vol] Negative NEGATIVE [facility] [employer] Work Phone: RBC (U) [#/Vol] None [facility] Work Phone: Renal Epithelial, UA NOT REPORTED 0 /HPF [employer] Work Phone: Specific [place], UA >1.030 High [facility] [employer] Work Phone: Trichomonas, UA NOT REPORTED None [facility] Work Phone: Turbidity UA CLEAR CLEAR [facility] [employer] Work Phone: Urinalysis Comments NOT REPORTED [facility] [employer] Work Phone: Urine Hgb Negative NEGATIVE [facility] [employer] Work Phone: Urobilinogen, Urine Normal Normal [facility] Work Phone: WBC, UA None [facility] Work Phone: Yeast, UA NOT REPORTED None [facility] Work Phone: - [employer] Work Phone: XR ACUTE ABD SERIES CHEST 1 VWon 09-10-2020 Aki, Mhpn Incoming Radiant Results From [employer] - 09/10/2020 10:50 PM EDT EXAMINATION: TWO XRAY VIEWS OF THE ABDOMEN AND SINGLE XRAY VIEW OF THE CHEST 09/10/2020 10:42 pm COMPARISON: 07/22/2020 HISTORY: ORDERING SYSTEM PROVIDED HISTORY: abd pain TECHNOLOGIST PROVIDED HISTORY: abd pain FINDINGS: Cardiomediastinal silhouette is normal in size. No pulmonary consolidation, pleural effusion, or pneumothorax. No acute osseous abnormality. [employer] terminates over the SVC. No pneumoperitoneum. There is moderate retained stool throughout the colon. The bowel gas pattern is nonspecific. No radiopaque nephrolithiasis identified. Postoperative changes are noted in the upper abdomen. IUD is again noted. Epidural pain catheter is similar in appearance to prior examination. IMPRESSION: 1. No acute cardiopulmonary abnormality. 2. Moderate stool throughout the colon, suggestive of constipation. 3. No acute abdominal abnormality by radiograph. [employer] Work Phone: EXAMINATION: TWO XRA Y VIEWS OF THE ABDOMEN AND SINGLE XRAY VIEW OF THE CHEST 09/10/2020 10:42 pm COMPARISON: 07/22/2020 HISTORY: ORDERING SYSTEM PROVIDED HISTORY: abd pain TECHNOLOGIST PROVIDED HISTORY: abd pain FINDINGS: Cardiomediastinal silhouette is normal in size. No pulmonary consolidation, pleural effusion, or pneumothorax. No acute osseous abnormality. [employer] terminates over the SVC. No pneumoperitoneum. There is moderate retained stool throughout the colon. The bowel gas pattern is nonspecific. No radiopaque nephrolithiasis identified. Postoperative changes are noted in the upper abdomen. IUD is again noted. Epidural pain catheter is similar in appearance to prior examination. [employer] Phone: 1. No acute cardiopulmonary abnormality. 2. Moderate stool throughout the colon, suggestive of constipation. 3. No acute abdominal abnormality by radiograph. [employer] Phone: APTTon 09-07-2020 aPTT Coag (Bld) [Time] 30.1 s Me [employer] Phone: Comment on above: IV Heparin Therapy Range: 62.0-94.0 Beta-Hydroxybuterateon 09-07 Beta-Hydroxybutyrate 0.16 mmol/L 0.02 - 0.27 mmol/L [employer] Phone: CBC Auto Differentialon 04-0 Basophils (Bld) [#/Vol] 0.00 10*3/uL [employer] Phone: Basophils/100 WBC (Bld) 0 % 0 - 2 % [employer] Phone: Differential Type NOT REPORTED [employer] Phone: Eosinophils (Bld) [#/Vol] 0.19 10*3/uL [employer] Phone: Eosinophils/100 WBC (Bld) 1 % 1 - 4 % [employer] Phone: Erythrocyte distribution width (RBC) [Ratio] 14.2 % 11.8 - 14.4 % [employer] Phone: Hematocrit (Bld) [Volume fraction] 30.0 % Low 36.3 - 47.1 % [employer] Phone: Hemoglobin (Bld) [Mass/Vol] 9.2 g/dL Low 11.9 - 15.1 g/dL [employer] Phone: Immature granulocytes (Bld) [#/Vol] 0.00 10*3/uL [employer] Phone: Immature granulocytes (Bld) [#/Vol] 0 % 0 [employer] Phone: Interpretation and review of laboratory results Abnormal [employer] Phone: Lymphocytes (Bld) [#/Vol] 8.27 10*3/uL High [employer] Phone: Lymphocytes/100 WBC (Bld) 44 % High 24 - 43 % [employer] Phone: MCH (RBC) [Entitic mass] 30.5 pg 25.2 - 33.5 pg [employer] Phone: MCHC (RBC) [Mass/Vol] 30.7 g/dL 28.4 - 34.8 g/dL [employer] Phone: MCV (RBC) [Entitic vol] 99.3 fL 82.6 - 102.9 fL [employer] Phone: Monocytes (Bld) [#/Vol] 0.75 10*3/uL [employer] Phone: Monocytes/100 WBC (Bld) 4 % 3 - 12 % [employer] Phone: Morphology Tc (Bld) [Interp] Normal [employer] Phone: Platelet mean volume (Bld) [Entitic vol] 10.7 fL 8.1 - 13.5 fL [employer] Phone: Platelets (Bld) [#/Vol] 365 10*3/uL [employer] Phone: Platelets (Bld) [#/Vol] NOT REPORTED [employer] Work Phone: RBC (Bld) [#/Vol] 3.02 10*6/uL Low 3.95 - 5.11 m/uL [employer] Work Phone: RBC morphology finding Nom (Bld) NOT REPORTED [employer] Work Phone: Segmented neutrophils/100 WBC (Bld) 51 % 36 - 65 % [employer] Work Phone: Segs Absolute 9.59 High [facility] Work Phone: WBC (Bld) [#/Vol] 18.8 10*3/uL High [employer] Work Phone: WBC (Bld) [#/Vol] 0.0 10*3/uL 0.0 per 100 WBC [employer] Work Phone: WBC Morphology NOT REPORTED [employer] [facility] Work Phone: Atypical Lymphocytes 1 % [employer] Work Phone: Atypical Lymphocytes Absolute 0.20 k/uL [employer] Work Phone: Basophils (Bld) [#/Vol] 0.00 10*3/uL [employer] Work Phone: Basophils/100 WBC (Bld) 0 % 0 - 2 % [employer] Work Phone: Differential Type NOT REPORTED [employer] Work Phone: Eosinophils (Bld) [#/Vol] 0.00 10*3/uL [employer] Work Phone: Eosinophils/100 WBC (Bld) 0 % Low 1 - 4 % [employer] Work Phone: Erythrocyte distribution width (RBC) [Ratio] 14.3 % 11.8 - 14.4 % [employer] Work Phone: Hematocrit (Bld) [Volume fraction] 30.4 % Low 36.3 - 47.1 % [employer] Phone: Hemoglobin (Bld) [Mass/Vol] 9.2 g/dL Low 11.9 - 15.1 g/dL [employer] Phone: Immature granulocytes (Bld) [#/Vol] 0.00 10*3/uL [employer] Phone: Immature granulocytes (Bld) [#/Vol] 0 % 0 [employer] Phone: Interpretation and review of laboratory results Abnormal [employer] Phone: Lymphocytes (Bld) [#/Vol] 9.09 10*3/uL High [employer] Phone: Lymphocytes/100 WBC (Bld) 45 % High 24 - 43 % [employer] Phone: MCH (RBC) [Entitic mass] 30.2 pg 25.2 - 33.5 pg [employer] Phone: MCHC (RBC) [Mass/Vol] 30.3 g/dL 28.4 - 34.8 g/dL [employer] Phone: MCV (RBC) [Entitic vol] 99.7 fL 82.6 - 102.9 fL [employer] Phone: Monocytes (Bld) [#/Vol] 2.22 10*3/uL High [employer] Phone: Monocytes/100 WBC (Bld) 11 % 3 - 12 % [employer] Phone: Morphology Tc (Bld) [Interp] Normal [employer] Phone: Platelet mean volume (Bld) [Entitic vol] 11.4 fL 8.1 - 13.5 fL [employer] Phone: Platelets (Bld) [#/Vol] NOT REPORTED [employer] Phone: Platelets (Bld) [#/Vol] 353 10*3/uL [employer] Phone: RBC (Bld) [#/Vol] 3.05 10*6/uL Low 3.95 - 5.11 m/uL [employer] Work Phone: RBC morphology finding Nom (Bld) NOT REPORTED [employer] Work Phone: Segmented neutrophils/100 WBC (Bld) 43 % 36 - 65 % [employer] Work Phone: Segs Absolute 8.69 High [employer] Work Phone: WBC (Bld) [#/Vol] 20.2 10*3/uL High [employer] Work Phone: WBC (Bld) [#/Vol] 0.0 10*3/uL 0.0 per 100 WBC [employer] Phone: WBC Morphology NOT REPORTED [employer] [facility] Work Phone: CT ABDOMEN PELVIS W IV CONTR AST Additional Contrast? Noneon 09-07-2020 Lymphocytes/100 WBC (Bld) 1. Redemonstration of multiple mildly prominent mesenteric lymph nodes unchanged from the prior examination. Cannot exclude association with neoplastic disease/metastasis. 2. 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 3. Hepatic steatosis. 4. Otherwise, unremarkable contrast enhanced CT abdomen and pelvis examination. [employer] Phone: EXAMINATION: CT OF [facility] ABDOMEN AND PELVIS WITH CONTRAST 09/07/2020 2:50 am TECHNIQUE: CT of the abdomen and pelvis was performed with the administration of intravenous contrast. Multiplanar reformatted images are provided for review. Dose modulation, iterative reconstruction, and/or weight based adjustment of the mA/kV was utilized to reduce the radiation dose to as low as reasonably achievable. COMPARISON: CT abdomen and pelvis with contrast July 20, 2020. HISTORY: ORDERING SYSTEM PROVIDED HISTORY: Abdominal pain leukocytosis, vomiting TECHNOLOGIST PROVIDED HISTORY: Abdominal pain leukocytosis, vomiting Decision Support Exception->Emergency Medical Condition (MA) FINDINGS: Abdomen/Pelvis: Lower chest: The lung bases are well aerated. Pleural surfaces are unremarkable and no evidence of pleural effusion is identified. Organs: Gallbladder is surgically absent. The spleen is surgically absent with suspected residual mild splenosis. Diffuse fatty infiltration of the liver is present. The liver, pancreas, adrenal glands, kidneys, are otherwise unremarkable in appearance. GI/Bowel: Central mesenteric multifocal surgical fatou are visualized. The stomach is unremarkable without wall thickening or distention. Bowel loops are unremarkable in appearance without evidence of obstruction, distension or mucosal thickening. Pelvis: The urinary bladder is well distended and unremarkable in appearance. No evidence of pelvic free fluid is seen. Uterus is anteverted in position and is unremarkable in appearance. Intrauterine contraceptive device appears well positioned within the endometrial canal. Peritoneum/Retroperitoneu m: Unchanged mildly prominent mesenteric multifocal lymph nodes are seen. No evidence of intraperitoneal free fluid is seen. Bones/Soft Tissues: Left lower quadrant ventral abdominal wall subcutaneous electronic device is again noted in place with intrathecal lead which enters the posterior central spinal canal at the level of L4/L5 with the distal tip located at T7/T8. The bones, skeletal muscle bundles, fascial planes and subcutaneous soft tissues are otherwise unremarkable in appearance. [employer] Work Phone: Aki, Mhpn Incoming Radiant Results From [employer] - 09/07/2020 3:29 AM EDT EXAMINATION: CT OF THE ABDOMEN AND PELVIS WITH CONTRAST 09/07/2020 2:50 am TECHNIQUE: CT of the abdomen and pelvis was performed with the administration of intravenous contrast. Multiplanar reformatted images are provided for review. Dose modulation, iterative reconstruction, and/or weight based adjustment of the mA/kV was utilized to reduce the radiation dose to as low as reasonably achievable. COMPARISON: CT abdomen and pelvis with contrast July 20, 2020. HISTORY: ORDERING SYSTEM PROVIDED HISTORY: Abdominal pain leukocytosis, vomiting TECHNOLOGIST PROVIDED HISTORY: Abdominal pain leukocytosis, vomiting Decision Support Exception->Emergency Medical Condition (MA) FINDINGS: Abdomen/Pelvis: Lower chest: The lung bases are well aerated. Pleural surfaces are unremarkable and no evidence of pleural effusion is identified. Organs: Gallbladder is surgically absent. The spleen is surgically absent with suspected residual mild splenosis. Diffuse fatty infiltration of the liver is present. The liver, pancreas, adrenal glands, kidneys, are otherwise unremarkable in appearance. GI/Bowel: Central mesenteric multifocal surgical fatou are visualized. The stomach is unremarkable without wall thickening or distention. Bowel loops are unremarkable in appearance without evidence of obstruction, distension or mucosal thickening. Pelvis: The urinary bladder is well distended and unremarkable in appearance. No evidence of pelvic free fluid is seen. Uterus is anteverted in position and is unremarkable in appearance. Intrauterine contraceptive device appears well positioned within the endometrial canal. Peritoneum/Retroperitoneu m: Unchanged mildly prominent mesenteric multifocal lymph nodes are seen. No evidence of intraperitoneal free fluid is seen. Bones/Soft Tissues: Left lower quadrant ventral abdominal wall subcutaneous electronic device is again noted in place with intrathecal lead which enters the posterior central spinal canal at the level of L4/L5 with the distal tip located at T7/T8. The bones, skeletal muscle bundles, fascial planes and subcutaneous soft tissues are otherwise unremarkable in appearance. IMPRESSION: 1. Redemonstration of multiple mildly prominent mesenteric lymph nodes unchanged from the prior examination. Cannot exclude association with neoplastic disease/metastasis. 2. 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 3. Hepatic steatosis. 4. Otherwise, unremarkable contrast enhanced CT abdomen and pelvis examination. [employer] Phone: Comprehensive Metabolic Pane l w/ Reflex to MGon 09-07-2020 Albumin [Mass/Vol] 4.1 g/dL 3.5 - 5.2 g/dL [employer] Phone: Albumin/Globulin [Mass ratio] 1.3 {ratio} [employer] Phone: ALP [Catalytic activity/Vol] 121 U/L High 35 - 104 U/L [employer] Phone: ALT [Catalytic activity/Vol] 29 U/L 5 - 33 U/L [employer] Phone: Anion gap [Moles/Vol] 10 mmol/L 9 - 17 mmol/L [employer] Phone: AST [Catalytic activity/Vol] 52 U/L High <32 [employer] Phone: Bilirubin Ql (U) <0.10 Low 0.3 - 1.2 mg/dL [employer] Phone: Bun/Cre Ratio 13 [employer] Work Phone: Calcium [Mass/Vol] 8.9 mg/dL 8.6 - 10. 4 mg/dL [employer] Phone: Chloride [Moles/Vol] 101 mmol/L 98 - 10 7 mmol/L [employer] Phone: CO2 [Moles/Vol] 25 mmol/L 20 - 31 mmol/L [employer] Phone: Creatinine [Mass/Vol] 1.41 mg/dL High 0.50 - 0.90 mg/dL [employer] Phone: GFR 52 mL/min Low >60 [employer] Phone: GFR Non- 43 mL/min Low >60 [employer] Phone: Glucose [Mass/Vol] 145 mg/dL High 70 - 99 mg/dL [employer] Phone: Interpretation and review of laboratory results Abnormal [employer] Phone: Potassium [Moles/Vol] 5.9 mmol/L High 3.7 - 5.3 mmol/L [employer] Phone: Protein [Mass/Vol] 7.2 g/dL 6.4 - 8.3 g/dL [employer] Phone: Sodium [Moles/Vol] 136 mmol/L 135 - 144 mmol/L [employer] Phone: Urea nitrogen [Mass/Vol] 18 mg/dL 6 - 20 mg/dL [employer] Phone: Lactic Acidon 09-07-2020 Lactate [Moles/Vol] 0.6 mmol/L 0.5 - 2. 2 mmol/L [employer] Phone: Lipaseon 09-07-2020 Interpretation and review of laboratory results Abnormal [employer] Phone: Lipase [Catalytic activity/Vol] 6 U/L Low 13 - 60 U/L [employer] Phone: Metabolic Panelon 09-07-2020 GFR/1.73 sq M predicted among non-blacks MDRD (S/P/Bld) [Vol rate/Area] [employer] Phone: Comment on above: Stage 1: Some kidney damage normal GFR Stage 2: Mild kidney damage GFR 60-89 Stage 3: Moderate kidney damage GFR 30-59 Stage 4: Severe kidney damage GFR 15-29 Stage 5: Severe kidney damage GFR <15 ESRD - chronic treatment by dialysis or transplant Average GFR for 30-3 9 years old: 107 mL/min/1.73sq m Chronic Kidney Disease: <60 mL/min/1.73sq m Kidney failure: <15 mL/min/1.73sq m eGFR calculated using average adult body mass. Additional eGFR calculator available at: http://www.Pivotstream/multiple_crcl_2011.htm Protime-INRon 09-07-2020 INR Coag (PPP) [Relative time] 1.1 {INR} [employer] Phone: Comment on above: Non-therapeutic Range: INR = 0.9-1.2 Therapeutic Range: Moderate Anticoagulant Intensity: INR = 2.0-3.0 High Anticoagulant Intensity: INR = 2.5-3.5 PT Coag (PPP) [Time] 13.9 s [employer] Work Phone: TYPE AND SCREENon 09-07-2020 ABO/Rh Positive [employer] Phone: Arm Band Number [id number] [employer] Work Phone: Expiration Date 09/10/2020,2351 [employer] Phone: Urinalysis, reflex to micros copicon 09-07-2020 Bilirubin Urine Negative NEGATIVE [employer] Work Phone: Color, UA YELLOW YELLOW [facility] Work Phone: Glucose, Ur Negative NEGATIVE [facility] Work Phone: Ketones Ql (U) Negative NEGATIVE [facility] Work Phone: Leukocyte esterase Test strip Ql (U) Negative NEGATIVE [facility] Work Phone: Nitrite, Urine Negative NEGATIVE [facility] Work Phone: pH, UA 6.0 [facility] [employer] Work Phone: Protein (U) [Mass/Vol] Negative NEGATIVE [facility] Work Phone: Specific [place], UA 1.015 [facility] [employer] Work Phone: Turbidity UA CLEAR CLEAR [facility] [employer] Work Phone: Urinalysis Comments NOT REPORTED [facility] Work Phone: Urine Hgb Negative NEGATIVE [facility] Work Phone: Urobilinogen, Urine Normal Normal [facility] [employer] Work Phone: XR CHEST PORTABLEon 09-08-19 21 Aki, Mhpn Incoming Radiant Results From [employer] - 09/07/2020 1:32 AM EDT EXAMINATION: ONE XRAY VIEW OF THE CHEST 09/06/2020 7:18 pm COMPARISON: November 17, 2013 HISTORY: ORDERING SYSTEM PROVIDED HISTORY: Congestion TECHNOLOGIST PROVIDED HISTORY: Congestion FINDINGS: Marginal inspiration is present. No focal area of consolidation or pneumothorax is present. A right IJ port is in place, tip in the mid SVC. Heart size is normal. Vascular markings are distinct. Osseous structures are stable. IMPRESSION: Marginal inspiration, without evidence of acute cardiopulmonary disease [facility] [employer] Work Phone: EXAMINATION: ONE XRA Y VIEW OF THE CHEST 09/06/2020 7:18 pm COMPARISON: November 17, 2013 HISTORY: ORDERING SYSTEM PROVIDED HISTORY: Congestion TECHNOLOGIST PROVIDED HISTORY: Congestion FINDINGS: Marginal inspiration is present. No focal area of consolidation or pneumothorax is present. A right IJ port is in place, tip in the mid SVC. Heart size is normal. Vascular markings are distinct. Osseous structures are stable. [employer] Phone: Marginal inspiration , without evidence of acute cardiopulmonary disease [employer] Phone: Amylaseon 07-22-2020 Amylase [Catalytic activity/Vol] 25 U/L Low 28 - 100 U/L [employer] Phone: Interpretation and review of laboratory results Abnormal [employer] Phone: CBC auto differentialon 07-08 Basophils (Bld) [#/Vol] 0.14 10*3/uL [employer] Phone: Basophils/100 WBC (Bld) 1 % 0 - 2 % [employer] Phone: Differential Type NOT REPORTED [employer] Phone: Eosinophils (Bld) [#/Vol] 0.00 10*3/uL [employer] Phone: Eosinophils/100 WBC (Bld) 0 % Low 1 - 4 % [employer] Phone: Erythrocyte distribution width (RBC) [Ratio] 13.7 % 11.8 - 14.4 % [employer] Phone: Hematocrit (Bld) [Volume fraction] 38.9 % 36.3 - 47.1 % [employer] Phone: Hemoglobin (Bld) [Mass/Vol] 12.1 g/dL 11.9 - 15.1 g/dL [employer] Phone: Immature granulocytes (Bld) [#/Vol] 0.00 10*3/uL [employer] Phone: Immature granulocytes (Bld) [#/Vol] 0 % 0 [employer] Phone: Interpretation and review of laboratory results Abnormal [employer] Phone: Lymphocytes (Bld) [#/Vol] 7.11 10*3/uL High [employer] Work Phone: Lymphocytes/100 WBC (Bld) 50 % High 24 - 43 % [employer] Work Phone: MCH (RBC) [Entitic mass] 30.4 pg 25.2 - 33.5 pg [employer] Phone: MCHC (RBC) [Mass/Vol] 31.1 g/dL 28.4 - 34.8 g/dL [employer] Work Phone: MCV (RBC) [Entitic vol] 97.7 fL 82.6 - 102.9 fL [employer] Phone: Monocytes (Bld) [#/Vol] 0.99 10*3/uL [employer] Phone: Monocytes/100 WBC (Bld) 7 % 3 - 12 % [employer] Work Phone: Platelet mean volume (Bld) [Entitic vol] 11.6 fL 8.1 - 13.5 fL [employer] Work Phone: Platelets (Bld) [#/Vol] NOT REPORTED [employer] Phone: Platelets (Bld) [#/Vol] 287 10*3/uL [employer] Phone: RBC (Bld) [#/Vol] 3.98 10*6/uL 3.95 - 5.11 m/uL [employer] Work Phone: RBC morphology finding Nom (Bld) NOT REPORTED [employer] Phone: Segmented neutrophils/100 WBC (Bld) 42 % 36 - 65 % [employer] Work Phone: Segs Absolute 5.96 [employer] Work Phone: WBC (Bld) [#/Vol] 14.2 10*3/uL High [employer] Work Phone: WBC (Bld) [#/Vol] 0.0 10*3/uL 0.0 per 100 WBC [employer] Phone: WBC Morphology NOT REPORTED [employer] Work Phone: Hemoglobin A1con 07-22-2020 Glucose [Mass/Vol] 209 mg/dL [employer] Phone: Comment on above: The ADA and AACC rec ommend providing the estimated average glucose result to permit better patient understanding of their HBA1c result. HbA1c (Bld) [Mass fraction] 8.9 % High 4 - 6 % [employer] Phone: Interpretation and review of laboratory results Abnormal [employer] Phone: Lipaseon 07-22-2020 Interpretation and review of laboratory results Abnormal [employer] Phone: Lipase [Catalytic activity/Vol] 4 U/L Low 13 - 60 U/L [employer] Phone: XR ABDOMEN (KUB) (SINGLE AP VIEW)on 07-22-2020 EXAMINATION: ONE SUP INE XRAY VIEW(S) OF THE ABDOMEN 07/22/2020 10:45 am COMPARISON: 07/20/2020 HISTORY: ORDERING SYSTEM PROVIDED HISTORY: abdominal pain TECHNOLOGIST PROVIDED HISTORY: abdominal pain FINDINGS: Persistent colonic distension in the right hemiabdomen. Moderate amount of stool in the descending colon. No aerated dilated small bowel loops. Surgical clips within the bilateral upper quadrants. Intrauterine device projects over the pelvis. Epidural pain catheter terminates over the lower thoracic spine. [employer] Phone: Aki, Mhpn Incoming Radiant Results From [employer] - 07/22/2020 2:03 PM EST EXAMINATION: ONE SUPINE XRAY VIEW(S) OF THE ABDOMEN 07/22/2020 10:45 am COMPARISON: 07/20/2020 HISTORY: ORDERING SYSTEM PROVIDED HISTORY: abdominal pain TECHNOLOGIST PROVIDED HISTORY: abdominal pain FINDINGS: Persistent colonic distension in the right hemiabdomen. Moderate amount of stool in the descending colon. No aerated dilated small bowel loops. Surgical clips within the bilateral upper quadrants. Intrauterine device projects over the pelvis. Epidural pain catheter terminates over the lower thoracic spine. IMPRESSION: Persistent colonic distension in the right hemiabdomen, not significantly changed from 1 day prior. [employer] Phone: Persistent colonic distension in the right hemiabdomen, not significantly changed from 1 day prior. [employer] Phone: APTTon 07-21-2020 aPTT Coag (Bld) [Time] s Critically high [employer] Phone: Comment on above: IV Heparin Therapy Range: 62.0-94.0 Interpretation and review of laboratory results Abnormal [employer] Phone: Amylaseon 07-21-2020 Amylase [Catalytic activity/Vol] 26 U/L Low 28 - 100 U/L [employer] Phone: Interpretation and review of laboratory results Abnormal [employer] Phone: CBC auto differentialon 07-08 Basophils (Bld) [#/Vol] 0.13 10*3/uL [employer] Phone: Basophils/100 WBC (Bld) 1 % 0 - 2 % [employer] Phone: Differential Type NOT REPORTED [employer] Phone: Eosinophils (Bld) [#/Vol] 0.92 10*3/uL High [employer] Phone: Eosinophils/100 WBC (Bld) 7 % High 1 - 4 % [employer] Phone: Erythrocyte distribution width (RBC) [Ratio] 14.0 % 11.8 - 14.4 % [employer] Phone: Hematocrit (Bld) [Volume fraction] 37.6 % 36.3 - 47.1 % [employer] Phone: Hemoglobin (Bld) [Mass/Vol] 11.5 g/dL Low 11.9 - 15.1 g/dL [employer] Phone: Immature granulocytes (Bld) [#/Vol] 0.00 10*3/uL [employer] Phone: Immature granulocytes (Bld) [#/Vol] 0 % 0 [employer] Phone: Interpretation and review of laboratory results Abnormal [employer] Phone: Lymphocytes (Bld) [#/Vol] 7.21 10*3/uL High [employer] Phone: Lymphocytes/100 WBC (Bld) 55 % High 24 - 43 % [employer] Phone: MCH (RBC) [Entitic mass] 30.1 pg 25.2 - 33.5 pg [employer] Phone: MCHC (RBC) [Mass/Vol] 30.6 g/dL 28.4 - 34.8 g/dL [employer] Phone: MCV (RBC) [Entitic vol] 98.4 fL 82.6 - 102.9 fL [employer] Phone: Monocytes (Bld) [#/Vol] 0.39 10*3/uL [employer] Phone: Monocytes/100 WBC (Bld) 3 % 3 - 12 % [employer] Phone: Morphology Tc (Bld) [Interp] ANISOCYTOSIS PRESENT [employer] Work Phone: Platelet mean volume (Bld) [Entitic vol] 11.5 fL 8.1 - 13.5 fL [employer] Phone: Platelets (Bld) [#/Vol] 272 10*3/uL [employer] Phone: Platelets (Bld) [#/Vol] NOT REPORTED [employer] Phone: RBC (Bld) [#/Vol] 3.82 10*6/uL Low 3.95 - 5.11 m/uL [employer] Phone: RBC morphology finding Nom (Bld) NOT REPORTED [employer] Phone: Segmented neutrophils/100 WBC (Bld) 34 % Low 36 - 65 % [employer] Phone: Segs Absolute 4.45 [employer] Work Phone: WBC (Bld) [#/Vol] 13.1 10*3/uL High [employer] Phone: WBC (Bld) [#/Vol] 0.0 10*3/uL 0.0 per 100 WBC [employer] Phone: WBC Morphology NOT REPORTED [employer] [facility] Work Phone: Lipaseon 07-21-2020 Interpretation and review of laboratory results Abnormal [employer] Phone: Lipase [Catalytic activity/Vol] U/L Low 13 - 60 U/L [employer] Phone: , Urineon 1 Beta HCG ( test) Ql (U) Negative NEGATIVE [employer] Phone: Comment on above: Specimens with hCG l evels near the threshold of the test (25 mIU/mL) may give a negative or indeterminate result. In such cases, another test should be performed with a new specimen in 48-72 hours. If early is suspected clinically in this setting, correlation with quantitative serum b-hCG level is suggested. [employer] has confirmed the use of plasma for this test. This has not been cleared or approved by the U.S. Food and Drug Administration. The FDA has determined that such clearance is not necessary. Protime-INRon 07-21-2020 INR Coag (PPP) [Relative time] 1.2 {INR} [employer] Phone: Comment on above: Non-therapeutic Range: INR = 0.9-1.2 Therapeutic Range: Moderate Anticoagulant Intensity: INR = 2.0-3.0 High Anticoagulant Intensity: INR = 2.5-3.5 Interpretation and review of laboratory results Abnormal [employer] Phone: PT Coag (PPP) [Time] 15.3 s High [facility] [employer] Work Phone: Triglycerideon 07-21-2020 Interpretation and review of laboratory results Abnormal [facility] Work Phone: Triglyceride [Mass/Vol] 312 mg/dL High <150 [facility] [employer] Work Phone: Comment on above: Triglyceride Guidelines: <150 Desirable 150-199 Borderline 200-499 High >499 Very high Based on AHA Guidelines for fasting triglyceride, March 2012. Urinalysison 07-21-[address] [facility] Work Phone: Color, UA YELLOW YELLOW [facility] Work Phone: Glucose, Ur Negative NEGATIVE [facility] Work Phone: Ketones Ql (U) Negative NEGATIVE [facility] Work Phone: Leukocyte esterase Test strip Ql (U) Negative NEGATIVE [facility] Work Phone: Nitrite, Urine Negative NEGATIVE [facility] Work Phone: pH, UA 7.5 [facility] [employer] Work Phone: Protein (U) [Mass/Vol] Negative NEGATIVE [facility] Work Phone: Specific [place], UA 1.015 [facility] [employer] Work Phone: Turbidity UA CLEAR CLEAR [facility] Work Phone: Urinalysis Comments NOT REPORTED [facility] [employer] Work Phone: Urine Hgb Negative NEGATIVE [facility] [employer] Work Phone: Urobilinogen, Urine Normal Normal [facility] Work Phone: Urine Drug Screenon 07-21-19 21 Amphetamine Screen, Ur Negative NEGATIVE [facility] [employer] Work Phone: Barbiturate Screen, Ur Negative NEGATIVE [facility] [employer] Work Phone: Benzodiazepine Screen, Urine Positive Abnormal NEGATIVE [facility] Work Phone: Buprenorphine Urine Negative NEGATIVE [facility] Work Phone: Cannabinoid Scrn, Ur Negative NEGATIVE [facility] Work Phone: Cocaine Metabolite, Urine Negative NEGATIVE [facility] Work Phone: Interpretation and review of laboratory results Abnormal [facility] Work Phone: MDMA, Urine NOT REPORTED [facility]GATIVE [facility] Work Phone: Methadone Screen, Urine Negative NEGATIVE [facility] Work Phone: Methamphetamine, Urine Negative NEGATIVE [facility] Work Phone: Opiates, Urine Positive Abnormal NEGATIVE [facility] Work Phone: Oxycodone Screen, Ur Negative NEGATIVE [facility] Work Phone: Phencyclidine, Urine Negative NEGATIVE [facility] Work Phone: Propoxyphene, Urine Negative NEGATIVE [facility] Work Phone: Test Information NOT REPORTED [facility] Work Phone: Tricyclic Antidepressants, Urine Negative NEGATIVE [facility] Work Phone: Comment on above: Drug screen results are to be used for medical purposes only. All positive results are unconfirmed. Testing for employment or legal uses should be sent to a reference laboratory for confirmation. CBC Auto Differentialon 07-08 Basophils (Bld) [#/Vol] 0.00 10*3/uL [facility] Work Phone: Basophils/100 WBC (Bld) 0 % 0 - 2 % [facility] Work Phone: Differential Type NOT REPORTED [facility] Work Phone: Eosinophils (Bld) [#/Vol] 0.13 10*3/uL [facility] Work Phone: Eosinophils/100 WBC (Bld) 1 % 1 - 4 % [employer] Phone: Erythrocyte distribution width (RBC) [Ratio] 13.5 % 11.8 - 14.4 % [employer] Phone: Hematocrit (Bld) [Volume fraction] 40.7 % 36.3 - 47.1 % [employer] Phone: Hemoglobin (Bld) [Mass/Vol] 12.5 g/dL 11.9 - 15.1 g/dL [employer] Phone: Immature granulocytes (Bld) [#/Vol] 0.00 10*3/uL [employer] Phone: Immature granulocytes (Bld) [#/Vol] 0 % 0 [employer] Phone: Interpretation and review of laboratory results Abnormal [employer] Phone: Lymphocytes (Bld) [#/Vol] 4.56 10*3/uL High [employer] Phone: Lymphocytes/100 WBC (Bld) 34 % 24 - 43 % [employer] Phone: MCH (RBC) [Entitic mass] 29.8 pg 25.2 - 33.5 pg [employer] Phone: MCHC (RBC) [Mass/Vol] 30.7 g/dL 28.4 - 34.8 g/dL [employer] Phone: MCV (RBC) [Entitic vol] 97.1 fL 82.6 - 102.9 fL [employer] Phone: Monocytes (Bld) [#/Vol] 0.27 10*3/uL [employer] Phone: Monocytes/100 WBC (Bld) 2 % Low 3 - 12 % [employer] Phone: Morphology Tc (Bld) [Interp] Normal [employer] Phone: Platelet mean volume (Bld) [Entitic vol] 11.3 fL 8.1 - 13.5 fL [employer] Work Phone: Platelets (Bld) [#/Vol] 285 10*3/uL [employer] Work Phone: Platelets (Bld) [#/Vol] NOT REPORTED [employer] Phone: RBC (Bld) [#/Vol] 4.19 10*6/uL 3.95 - 5.11 m/uL [employer] Work Phone: RBC morphology finding Nom (Bld) NOT REPORTED [employer] Work Phone: Segmented neutrophils/100 WBC (Bld) 63 % 36 - 65 % [employer] Work Phone: Segs Absolute 8.44 High [facility] Work Phone: WBC (Bld) [#/Vol] 0.0 10*3/uL 0.0 per 100 WBC [employer] Work Phone: WBC (Bld) [#/Vol] 13.4 10*3/uL High [employer] Work Phone: WBC Morphology NOT REPORTED [employer] [facility] Work Phone: CT ABDOMEN PELVIS W IV CONTR AST Additional Contrast? Oralon 07-20-2020 EXAMINATION: CT OF [facility] ABDOMEN AND PELVIS WITH CONTRAST 07/20/2020 4:33 pm TECHNIQUE: CT of the abdomen and pelvis was performed with the administration of intravenous contrast. Multiplanar reformatted images are provided for review. Dose modulation, iterative reconstruction, and/or weight based adjustment of the mA/kV was utilized to reduce the radiation dose to as low as reasonably achievable. COMPARISON: CT abdomen and pelvis December 02, 2015. HISTORY: ORDERING SYSTEM PROVIDED HISTORY: Status post Whipple procedure. Concern for possible bowel obstruction TECHNOLOGIST PROVIDED HISTORY: Status post Whipple procedure. Concern for possible bowel obstruction Decision Support Exception->Emergency Medical Condition (MA) FINDINGS: Lower Chest: Bibasilar atelectasis/scarring. Organs: Hepatic steatosis. Patient appears to be status post Whipple like procedure. Splenectomy. 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 Multiple upper abdominal venous collaterals are identified likely postsurgical in nature. Remaining pancreatic tissue is grossly unremarkable. Adrenal glands appear unremarkable. No enhancing renal mass or hydronephrosis. Abdominal aorta appears normal in caliber. GI/Bowel: Stomach is grossly unremarkable. Small bowel appears nondilated. Moderate amount stool burden is seen. Focal wall thickening is identified involving what appears to be a redundant sigmoid colon please see series 2, image 111. Pelvis: IUD in place. No adnexal mass. Urinary bladder is distended to the level of L4. Peritoneum/Retroperitoneu m: No free air. No free fluid. Multiple prominent mesenteric lymph nodes are identified largest measuring 1 cm in short axis. Bones/Soft Tissues: Abdominal wall demonstrates no acute findings. Neural stimulator device is in place. Osseous structures demonstrate degenerative changes. [employer] Phone: 1. No CT evidence of small bowel obstruction. 2. Moderate amount stool burden seen throughout the colon suggestive underlying constipation. There appears to be focal wall thickening identified involving what appears to be a redundant sigmoid colon. A colonic lesion cannot be excluded and further evaluation with colonoscopy is suggested. 3. Distended urinary bladder to the level of L4. Catheterization may be needed. 4. Multiple prominent mesenteric lymph nodes. Finding is nonspecific and may be reactive given no documented history of malignancy in the patient's chart. Attention on follow-up is suggested. [employer] Phone: Aki, pn Incoming Radiant Results From [employer] - 07/20/2020 5:18 PM EST EXAMINATION: CT OF THE ABDOMEN AND PELVIS WITH CONTRAST 07/20/2020 4:33 pm TECHNIQUE: CT of the abdomen and pelvis was performed with the administration of intravenous contrast. Multiplanar reformatted images are provided for review. Dose modulation, iterative reconstruction, and/or weight based adjustment of the mA/kV was utilized to reduce the radiation dose to as low as reasonably achievable. COMPARISON: CT abdomen and pelvis December 02, 2015. HISTORY: ORDERING SYSTEM PROVIDED HISTORY: Status post Whipple procedure. Concern for possible bowel obstruction TECHNOLOGIST PROVIDED HISTORY: Status post Whipple procedure. Concern for possible bowel obstruction Decision Support Exception->Emergency Medical Condition (MA) FINDINGS: Lower Chest: Bibasilar atelectasis/scarring. Organs: Hepatic steatosis. Patient appears to be status post Whipple like procedure. Splenectomy. 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 Multiple upper abdominal venous collaterals are identified likely postsurgical in nature. Remaining pancreatic tissue is grossly unremarkable. Adrenal glands appear unremarkable. No enhancing renal mass or hydronephrosis. Abdominal aorta appears normal in caliber. GI/Bowel: Stomach is grossly unremarkable. Small bowel appears nondilated. Moderate amount stool burden is seen. Focal wall thickening is identified involving what appears to be a redundant sigmoid colon please see series 2, image 111. Pelvis: IUD in place. No adnexal mass. Urinary bladder is distended to the level of L4. Peritoneum/Retroperitoneu m: No free air. No free fluid. Multiple prominent mesenteric lymph nodes are identified largest measuring 1 cm in short axis. Bones/Soft Tissues: Abdominal wall demonstrates no acute findings. Neural stimulator device is in place. Osseous structures demonstrate degenerative changes. IMPRESSION: 1. No CT evidence of small bowel obstruction. 2. Moderate amount stool burden seen throughout the colon suggestive underlying constipation. There appears to be focal wall thickening identified involving what appears to be a redundant sigmoid colon. A colonic lesion cannot be excluded and further evaluation with colonoscopy is suggested. 3. Distended urinary bladder to the level of L4. Catheterization may be needed. 4. Multiple prominent mesenteric lymph nodes. Finding is nonspecific and may be reactive given no documented history of malignancy in the patient's chart. Attention on follow-up is suggested. [employer] Phone: Comprehensive Metabolic Pane wilver 07-20-2020 Albumin [Mass/Vol] 4.2 g/dL 3.5 - 5.2 g/dL [employer] Phone: Albumin/Globulin [Mass ratio] 1.2 {ratio} [employer] Phone: ALP [Catalytic activity/Vol] 121 U/L High 35 - 104 U/L [employer] Phone: ALT [Catalytic activity/Vol] 51 U/L High 5 - 33 U/L [employer] Phone: Anion gap [Moles/Vol] 9 mmol/L 9 - 17 mmol/L [employer] Phone: AST [Catalytic activity/Vol] 48 U/L High <32 [employer] Phone: Bilirubin Ql (U) 0.43 mg/dL 0.3 - 1.2 mg/dL [employer] Phone: Bun/Cre Ratio 18 [employer] Work Phone: Calcium [Mass/Vol] 9.3 mg/dL 8.6 - 10. 4 mg/dL [employer] Phone: Chloride [Moles/Vol] 100 mmol/L 98 - 10 7 mmol/L [employer] Phone: CO2 [Moles/Vol] 28 mmol/L 20 - 31 mmol/L [employer] Phone: Creatinine [Mass/Vol] 1.19 mg/dL High 0.5 - 0.9 mg/dL [employer] Phone: GFR >60 >60 mL/min [employer] Phone: GFR Non- 52 mL/min Low >60 [employer] Phone: Glucose [Mass/Vol] 161 mg/dL High 70 - 99 mg/dL [employer] Phone: Interpretation and review of laboratory results Abnormal [employer] Phone: Potassium [Moles/Vol] 4.2 mmol/L 3.7 - 5.3 mmol/L [employer] Phone: Protein [Mass/Vol] 7.7 g/dL 6.4 - 8.3 g/dL [employer] Phone: Sodium [Moles/Vol] 137 mmol/L 135 - 144 mmol/L [employer] Phone: Urea nitrogen [Mass/Vol] 22 mg/dL High 6 - 20 mg/dL [employer] Phone: Metabolic Panelon 07-20-2020 GFR/1.73 sq M predicted among non-blacks MDRD (S/P/Bld) [Vol rate/Area] [facility] Work Phone: Comment on above: Stage 1: Some kidney damage normal GFR Stage 2: Mild kidney damage GFR 60-89 Stage 3: Moderate kidney damage GFR 30-59 Stage 4: Severe kidney damage GFR 15-29 Stage 5: Severe kidney damage GFR <15 ESRD - chronic treatment by dialysis or transplant Average GFR for 30-3 9 years old: 107 mL/min/1.73sq m Chronic Kidney Disease: <60 mL/min/1.73sq m Kidney failure: <15 mL/min/1.73sq m eGFR calculated using average adult body mass. Additional eGFR calculator available at: http://www.Pivotstream/multiple_crcl_2012.htm Beta-Hydroxybuterateon 08-09 Beta-Hydroxybutyrate 0.14 mmol/L 0.02 - 0.27 mmol/L [place] CBCon 08-10-2019 Erythrocyte distribution width (RBC) [Ratio] 13.8 % 11.8 - 14.4 % [place] Hematocrit (Bld) [Volume fraction] 40.7 % 36.3 - 47.1 % [place] Hemoglobin (Bld) [Mass/Vol] 12.3 g/dL 11.9 - 15.1 g/dL [place] Interpretation and review of laboratory results Abnormal [place] MCH (RBC) [Entitic mass] 29.5 pg 25.2 - 33.5 pg [place] MCHC (RBC) [Mass/Vol] 30.2 g/dL 28.4 - 34.8 g/dL [place] MCV (RBC) [Entitic vol] 97.6 fL 82.6 - 102.9 fL [place] Platelet mean volume (Bld) [Entitic vol] 11.4 fL 8.1 - 13.5 fL [place] Platelets (Bld) [#/Vol] 295 10*3/uL [place] RBC (Bld) [#/Vol] 4.17 10*6/uL 3.95 - 5.11 m/uL [place] WBC (Bld) [#/Vol] 17.2 10*3/uL High [place] WBC (Bld) [#/Vol] 0.0 10*3/uL 0.0 per 100 WBC [place] Comprehensive Metabolic Pane wilver 08-10-2019 Albumin [Mass/Vol] 4 g/dL 3.5 - 5.2 g/dL [place] Albumin/Globulin [Mass ratio] 1.1 {ratio} [place] ALP [Catalytic activity/Vol] 136 U/L High 35 - 104 U/L [place] ALT [Catalytic activity/Vol] 64 U/L High 5 - 33 U/L [place] Anion gap [Moles/Vol] 12 mmol/L 9 - 17 mmol/L [place] AST [Catalytic activity/Vol] 56 U/L High <32 [place] Bilirubin Ql (U) 0.45 mg/dL 0.3 - 1.2 mg/dL [place] Bun/Cre Ratio 15 [place] Calcium [Mass/Vol] 8.6 mg/dL 8.6 - 10. 4 mg/dL [place] Chloride [Moles/Vol] 100 mmol/L 98 - 10 7 mmol/L [place] CO2 [Moles/Vol] 26 mmol/L 20 - 31 mmol/L [place] Creatinine [Mass/Vol] 1.08 mg/dL High 0.5 - 0.9 mg/dL [place] GFR >60 >60 mL/min [place] GFR Non- 58 mL/min Low >60 [place] Glucose [Mass/Vol] 132 mg/dL High 70 - 99 mg/dL [place] Potassium [Moles/Vol] 4.0 mmol/L 3.7 - 5.3 mmol/L [place] Protein [Mass/Vol] 7.5 g/dL 6.4 - 8.3 g/dL [place] Sodium [Moles/Vol] 138 mmol/L 135 - 144 mmol/L [place] Urea nitrogen [Mass/Vol] 16 mg/dL 6 - 20 mg/dL [place] Lactic Acid, Plasmaon 2019 Lactate [Moles/Vol] 1.3 mmol/L 0.5 - 2. 2 mmol/L [place] Lactic Acid, Whole Blood NOT REPORTED 0.7 - 2.1 mmol/L [place] Lipaseon 08-10-2019 Lipase [Catalytic activity/Vol] 4 U/L Low 13 - 60 U/L [place] Metabolic Panelon 08-10-2019 GFR/1.73 sq M predicted among non-blacks MDRD (S/P/Bld) [Vol rate/Area] [place] Comment on above: Average GFR for 30-3 9 years old: 107 mL/min/1.73sq m Chronic Kidney Disease: <60 mL/min/1.73sq m Kidney failure: <15 mL/min/1.73sq m eGFR calculated using average adult body mass. Additional eGFR calculator available at: http://www.Pivotstream/multiple_crcl_2012.htm Stage 1: Some kidney damage normal GFR Stage 2: Mild kidney damage GFR 60-89 Stage 3: Moderate kidney damage GFR 30-59 Stage 4: Severe kidney damage GFR 15-29 Stage 5: Severe kidney damage GFR <15 ESRD - chronic treatment by dialysis or transplant Microscopic Urinalysison Amorphous, UA NOT REPORTED None [place] Bacteria, UA TRACE Abnormal None [place] Casts UA NOT REPORTED /LPF [place] Crystals, UA NOT REPORTED None /HPF [place] Epithelial Cells UA 2 TO 5 [place] Interpretation and review of laboratory results Abnormal [place] Mucus, UA NOT REPORTED None [place] Other Observations UA NOT REPORTED NOT REQ. M [place] RBC (U) [#/Vol] 0 TO 2 [place] Renal Epithelial, UA NOT REPORTED 0 /HPF [facility] [place] [place] Trichomonas, UA NOT REPORTED None [facility] [place] WBC, UA 0 TO 2 [place] Yeast, UA NOT REPORTED None [place] Otheron 08-10-2019 Interpretation and review of laboratory results Abnormal [place] , Urineon 0 Beta HCG ( test) Ql (U) Negative NEGATIVE [place] Comment on above: Specimens with hCG l evels near the threshold of the test (25 mIU/mL) may give a negative or indeterminate result. In such cases, another test should be performed with a new specimen in 48-72 hours. If early is suspected clinically in this setting, correlation with quantitative serum b-hCG level is suggested. [facility] has confirmed the use of plasma for this test. This has not been cleared or approved by the U.S. Food and Drug Administration. The FDA has determined that such clearance is not necessary. Urinalysis Reflex to Culture on 08-10-2019 Bilirubin Urine Negative NEGATIVE [place] Color, UA YELLOW YELLOW [place] Glucose, Ur Negative NEGATIVE [place] Interpretation and review of laboratory results Abnormal [place] Ketones Ql (U) Negative NEGATIVE [place] Leukocyte esterase Test strip Ql (U) Negative NEGATIVE [place] Nitrite, Urine Negative NEGATIVE [place] pH, UA 6.0 [place] Protein (U) [Mass/Vol] Negative NEGATIVE [place] Specific [place], UA 1.025 High [place], [place] Turbidity UA CLEAR CLEAR [place] Urinalysis Comments NOT REPORTED [place], [place] Urine Hgb Negative NEGATIVE [place] Urobilinogen, Urine Normal Normal [place] Basic Metabolic Panel w/ Ref ran to MGon 02-03-2019 Anion gap [Moles/Vol] 13 mmol/L 9 - 17 mmol/L [place] Bun/Cre Ratio 17 [place] Calcium [Mass/Vol] 9.1 mg/dL 8.6 - 10. 4 mg/dL [place] Chloride [Moles/Vol] 107 mmol/L 98 - 10 7 mmol/L [place] CO2 [Moles/Vol] 23 mmol/L 20 - 31 mmol/L [place] Creatinine [Mass/Vol] 1.27 mg/dL High 0.5 - 0.9 mg/dL [place] GFR 59 mL/min Low >60 [place] GFR Non- 49 mL/min Low >60 [place] Glucose [Mass/Vol] 173 mg/dL High 70 - 99 mg/dL [place] Interpretation and review of laboratory results Abnormal [place] Potassium [Moles/Vol] 3.5 mmol/L Low 3.7 - 5.3 mmol/L [place] Sodium [Moles/Vol] 143 mmol/L 135 - 144 mmol/L [place] Urea nitrogen [Mass/Vol] 21 mg/dL High 6 - 20 mg/dL [place] HCG, Quantitative, on 02-03-2019 hCG Quant <1 <5 IU/L [place] Comment on above: Non-preg premeno <=5 Postmeno <=8 Male <=3 If HCG results do not concur with clinical observations, additional testing to confirm results is recommended. Elevated results not associated with may be found in patients with other diseases such as tumors of the germ cells (testis, ovaries, etc.), bladder, pancreas, stomach, lungs, and liver. Magnesiumon 02-03-2019 Magnesium [Mass/Vol] 1.8 mg/dL 1.6 - 2 .6 mg/dL [place] Metabolic Panelon 02-03-2019 GFR/1.73 sq M predicted among non-blacks MDRD (S/P/Bld) [Vol rate/Area] [place] Comment on above: Average GFR for 30-3 9 years old: 107 mL/min/1.73sq m Chronic Kidney Disease: <60 mL/min/1.73sq m Kidney failure: <15 mL/min/1.73sq m eGFR calculated using average adult body mass. Additional eGFR calculator available at: http://www.[place] [employer]/multiple_crcl_2012.htm Stage 1: Some kidney damage normal GFR Stage 2: Mild kidney damage GFR 60-89 Stage 3: Moderate kidney damage GFR 30-59 Stage 4: Severe kidney damage GFR 15-29 Stage 5: Severe kidney damage GFR <15 ESRD - chronic treatment by dialysis or transplant Microscopic Urinalysison Amorphous, UA NOT REPORTED None [facility], [place] Bacteria, UA NOT REPORTED None [facility], [place] Casts UA NOT REPORTED /LPF [place] Crystals UA NOT REPORTED None /HPF [place] Epithelial Cells UA 0 TO 2 [place] Mucus, UA NOT REPORTED None [place], [place] Other Observations UA NOT REPORTED NOT REQ. M [place], [place] RBC (U) [#/Vol] None [facility], [place] Renal Epithelial, Urine NOT REPORTED 0 /HPF [place] Trichomonas, UA NOT REPORTED None [facility] [place] WBC, UA 0 TO 2 [place] Yeast, UA NOT REPORTED None [place] - [place] Urinalysis, reflex to micros copicon 02-03-2019 Bilirubin Urine Negative NEGATIVE [place] Color, UA YELLOW YELLOW [place] Glucose, Ur 1+ Abnormal NEGATIVE [place] Interpretation and review of laboratory results Abnormal [place] Ketones Ql (U) Negative NEGATIVE [place] Leukocyte esterase Test strip Ql (U) Negative NEGATIVE [place] Nitrite, Urine Negative NEGATIVE [place] pH, UA 6.0 [place] Protein (U) [Mass/Vol] 1+ Abnormal NEGATIVE [place] Specific [place], UA 1.010 [place], [place] Turbidity UA CLEAR CLEAR [place] Urinalysis Comments NOT REPORTED [place], [place] Urine Hgb TRACE Abnormal NEGATIVE [place] Urobilinogen, Urine Normal Normal [place] XR Acute Abd Series Chest 1 VWon 08-30-2019 Aki, Mhpn Incoming Radiant Results From [employer] - 02/03/2019 2:12 AM EDT EXAMINATION: TWO XRAY VIEWS OF THE ABDOMEN AND SINGLE XRAY VIEW OF THE CHEST 02/03/2019 1:35 am COMPARISON: 06/24/2014 HISTORY: ORDERING SYSTEM PROVIDED HISTORY: abdominal pain and vomiting TECHNOLOGIST PROVIDED HISTORY: abdominal pain and vomiting FINDINGS: Lungs are clear without acute process. No pleural effusion or pneumothorax. No focal consolidation or edema. Cardiomediastinal silhouette and bony thorax are without acute abnormality. Port-A-Cath in place right chest wall. No evidence of intraperitoneal free air. Nonspecific bowel gas pattern without evidence of obstruction. No abnormal calcifications. Osseous structures are intact. Lumbar spine neurostimulator device. IMPRESSION: No acute process in the chest. No bowel obstruction or free air. Large bowel somewhat distended with large amount of gas and stool.. [place] EXAMINATION: TWO XRA Y VIEWS OF THE ABDOMEN AND SINGLE XRAY VIEW OF THE CHEST 02/03/2019 1:35 am COMPARISON: 06/24/2014 HISTORY: ORDERING SYSTEM PROVIDED HISTORY: abdominal pain and vomiting TECHNOLOGIST PROVIDED HISTORY: abdominal pain and vomiting FINDINGS: Lungs are clear without acute process. No pleural effusion or pneumothorax. No focal consolidation or edema. Cardiomediastinal silhouette and bony thorax are without acute abnormality. Port-A-Cath in place right chest wall. No evidence of intraperitoneal free air. Nonspecific bowel gas pattern without evidence of obstruction. No abnormal calcifications. Osseous structures are intact. Lumbar spine neurostimulator device. [place] No acute process in the chest. No bowel obstruction or free air. Large bowel somewhat distended with large amount of gas and stool.. [place] CBC Auto Differentialon 01-06 Basophils (Bld) [#/Vol] 0.06 10*3/uL [place] Basophils/100 WBC (Bld) 0 % 0 - 2 % [place] Differential Type NOT REPORTED [place] Eosinophils (Bld) [#/Vol] 10*3/uL [place] Eosinophils/100 WBC (Bld) 0 % Low 1 - 4 % [place] Erythrocyte distribution width (RBC) [Ratio] 13.8 % 11.8 - 14.4 % [place] Hematocrit (Bld) [Volume fraction] 39.9 % 36.3 - 47.1 % [place] Hemoglobin (Bld) [Mass/Vol] 12.8 g/dL 11.9 - 15.1 g/dL [place] Immature granulocytes (Bld) [#/Vol] 0.09 10*3/uL [place] Immature granulocytes (Bld) [#/Vol] 1 % High 0 [place] Interpretation and review of laboratory results Abnormal [place] Lymphocytes (Bld) [#/Vol] 4.09 10*3/uL [place] Lymphocytes/100 WBC (Bld) 23 % Low 24 - 43 % [place] MCH (RBC) [Entitic mass] 31.0 pg 25.2 - 33.5 pg [place] MCHC (RBC) [Mass/Vol] 32.1 g/dL 28.4 - 34.8 g/dL [place] MCV (RBC) [Entitic vol] 96.6 fL 82.6 - 102.9 fL [place] Monocytes (Bld) [#/Vol] 1.33 10*3/uL [place] Monocytes/100 WBC (Bld) 8 % 3 - 12 % [place] Platelet mean volume (Bld) [Entitic vol] 10.9 fL 8.1 - 13.5 fL [place] Platelets (Bld) [#/Vol] 287 10*3/uL [place] Platelets (Bld) [#/Vol] NOT REPORTED [place] RBC (Bld) [#/Vol] 4.13 10*6/uL 3.95 - 5.11 m/uL [place] RBC morphology finding Nom (Bld) NOT REPORTED [place] Segmented neutrophils/100 WBC (Bld) 68 % High 36 - 65 % [place] Segs Absolute 12.19 High [place] WBC (Bld) [#/Vol] 17.8 10*3/uL [place] WBC (Bld) [#/Vol] 0.0 10*3/uL 0.0 per 100 WBC [place] WBC Morphology NOT REPORTED [place], [place] Hepatic Function Panelon Albumin [Mass/Vol] 4.6 g/dL 3.5 - 5.2 g/dL [place] Albumin/Globulin [Mass ratio] 1.3 {ratio} [place] ALP [Catalytic activity/Vol] 87 U/L 35 - 104 U/L [place] ALT [Catalytic activity/Vol] 28 U/L 5 - 33 U/L [place] AST [Catalytic activity/Vol] 20 U/L <32 [place] Bilirubin Ql (U) 0.49 mg/dL 0.3 - 1.2 mg/dL [place] Bilirubin, Indirect CANNOT BE CALCULATED 0 - 1 mg/dL [place] Bilirubin.direct [Mass/Vol] mg/dL <0.31 mg/dL [place] Globulin (S) [Mass/Vol] NOT REPORTED 1.5 - 3.8 g/dL [place] Protein [Mass/Vol] 8.2 g/dL 6.4 - 8.3 g/dL [place] Lipaseon 02-02-2019 Interpretation and review of laboratory results Abnormal [place] Lipase [Catalytic activity/Vol] 4 U/L Low 13 - 60 U/L [place] ANION GAPon 01-13-2019 Anion gap [Moles/Vol] 14.0 mmol/L Normal 8.0-16.0 [facility] Comment on above: Result Comment: ANIO N GAP = Sodium -(Chloride + CO2) Performed By: #### B MP, HEPPA, LIPAS, MG, CBCWD, ANION, OSMOL, EGFR1 #### [facility] [address] [place] [address] Anion Gapon 01-13-2019 Anion gap [Moles/Vol] 14.0 mmol/L 8 - 16 meq/L [facility] [place] Comment on above: ANION GAP = Sodium - (Chloride + CO2) Performed at [facility] [address] [address] BASIC METABOL PANELon 2018 Calcium [Mass/Vol] 9.1 mg/dL Normal 8.5-10.5 [facility] Comment on above: Performed By: #### B MP, HEPPA, LIPAS, MG, CBCWD, ANION, OSMOL, EGFR1 #### [address] [address] Chloride [Moles/Vol] 106 mmol/L Normal 98-111 [facility] Comment on above: Performed By: #### B MP, HEPPA, LIPAS, MG, CBCWD, ANION, OSMOL, EGFR1 #### [address] [address] CO2 [Moles/Vol] 22 mmol/L Low 23-33 [facility] Comment on above: Performed By: #### B MP, HEPPA, LIPAS, MG, CBCWD, ANION, OSMOL, EGFR1 #### [address] [address] Creatinine [Mass/Vol] 1.1 mg/dL Normal 0.4-1.[address] [facility] Comment on above: Performed By: #### B MP, HEPPA, LIPAS, MG, CBCWD, ANION, OSMOL, EGFR1 #### [address] [address] Glucose [Mass/Vol] 87 mg/dL Normal 70-108 [facility] Comment on above: Performed By: #### B MP, HEPPA, LIPAS, MG, CBCWD, ANION, OSMOL, EGFR1 #### [address] [address] Potassium [Moles/Vol] 3.0 mmol/L Low 3.5-5.[address] [facility] Comment on above: Performed By: #### B MP, HEPPA, LIPAS, MG, CBCWD, ANION, OSMOL, EGFR1 #### [address] [address] Sodium [Moles/Vol] 142 mmol/L Normal 135-145 [facility] Comment on above: Performed By: #### B MP, HEPPA, LIPAS, MG, CBCWD, ANION, OSMOL, EGFR1 #### [address] [address] Urea nitrogen [Mass/Vol] 12 mg/dL Normal 7-22 [facility] Comment on above: Performed By: #### B MP, HEPPA, LIPAS, MG, CBCWD, ANION, OSMOL, EGFR1 #### [address] [address] Basic Metabolic Panelon Calcium [Mass/Vol] 9.1 mg/dL 8.5 - 10. 5 mg/dL [place] Comment on above: Performed at [facility] [address] [place] [id number] Chloride [Moles/Vol] 106 mmol/L 98 - 11 1 meq/L [place] CO2 [Moles/Vol] 22 mmol/L Low 23 - 33 meq/L [place] Creatinine [Mass/Vol] 1.1 mg/dL 0.4 - 1.2 mg/dL [place] Glucose [Mass/Vol] 87 mg/dL 70 - 108 mg/dL [place] Potassium [Moles/Vol] 3.0 mmol/L Low 3.5 - 5.2 meq/L [place] Sodium [Moles/Vol] 142 mmol/L 135 - 145 meq/L [place] Urea nitrogen [Mass/Vol] 12 mg/dL 7 - 22 mg/dL [place] CALCULATED OSMOLALITYon Osmolality [Osmolality] 282.2 mOsmol/kg Normal 275.0-300. [facility] Comment on above: Performed By: #### B MP, HEPPA, LIPAS, MG, CBCWD, ANION, OSMOL, EGFR1 #### [address] [address] CBC WITH DIFFERENTIALon Platelets (Bld) [#/Vol] ADEQUATE Normal Adequate [facility] Comment on above: Performed By: #### B MP, HEPPA, LIPAS, MG, CBCWD, ANION, OSMOL, EGFR1 #### [address] [address] ABS IMMATURE GRANS (IG) 0.05 thou/mm3 Normal 0.00-0.07 [facility] Comment on above: Performed By: #### B MP, HEPPA, LIPAS, MG, CBCWD, ANION, OSMOL, EGFR1 #### [address] [address] ABS NEUTROPHILS 8.3 thou/mm3 High 1.8-7.7 [facility] Comment on above: Performed By: #### B MP, HEPPA, LIPAS, MG, CBCWD, ANION, OSMOL, EGFR1 #### [address] [address] Basophils (Bld) [#/Vol] 0.1 thou/mm3 Normal 0.0-0.1 [facility] Comment on above: Performed By: #### B MP, HEPPA, LIPAS, MG, CBCWD, ANION, OSMOL, EGFR1 #### [address] [address] Basophils/100 WBC (Bld) 0.4 % Normal [facility] Comment on above: Performed By: #### B MP, HEPPA, LIPAS, MG, CBCWD, ANION, OSMOL, EGFR1 #### [address] [address] Eosinophils (Bld) [#/Vol] 0.0 thou/mm3 Normal 0.0-0.4 [facility] Comment on above: Performed By: #### B MP, HEPPA, LIPAS, MG, CBCWD, ANION, OSMOL, EGFR1 #### [address] [address] Eosinophils/100 WBC (Bld) 0.0 % Normal [facility] Comment on above: Performed By: #### B MP, HEPPA, LIPAS, MG, CBCWD, ANION, OSMOL, EGFR1 #### [address] [address] Erythrocyte distribution width (RBC) [Ratio] 14.0 % Normal 11.5-14.5 [facility] Comment on above: Performed By: #### B MP, HEPPA, LIPAS, MG, CBCWD, ANION, OSMOL, EGFR1 #### [place] [address] Hematocrit (Bld) [Volume fraction] 37.4 % Normal 37.0-47.0 [facility] Comment on above: Performed By: #### B MP, HEPPA, LIPAS, MG, CBCWD, ANION, OSMOL, EGFR1 #### [place] [address] Hemoglobin (Bld) [Mass/Vol] 11.5 gm/dl Low 12.0-16.0 [facility] Comment on above: Performed By: #### B MP, HEPPA, LIPAS, MG, CBCWD, ANION, OSMOL, EGFR1 #### [place] [address] IMMATURE GRANS (IG) 0.3 % Normal [facility] Comment on above: Performed By: #### B MP, HEPPA, LIPAS, MG, CBCWD, ANION, OSMOL, EGFR1 #### [address] [address] Lymphocytes (Bld) [#/Vol] 6.4 thou/mm3 High 1.0-4.8 [facility] Comment on above: Performed By: #### B MP, HEPPA, LIPAS, MG, CBCWD, ANION, OSMOL, EGFR1 #### [address] [address] Lymphocytes/100 WBC (Bld) 40.3 % Normal [facility] Comment on above: Performed By: #### B MP, HEPPA, LIPAS, MG, CBCWD, ANION, OSMOL, EGFR1 #### [place] [address] MCH (RBC) [Entitic mass] 30.3 pg Normal 26.0-33.0 [facility] Comment on above: Performed By: #### B MP, HEPPA, LIPAS, MG, CBCWD, ANION, OSMOL, EGFR1 #### [address] [address] MCHC (RBC) [Mass/Vol] 30.7 gm/dl Low 32.2-35.5 [facility] Comment on above: Performed By: #### B MP, HEPPA, LIPAS, MG, CBCWD, ANION, OSMOL, EGFR1 #### [address] [address] MCV (RBC) [Entitic vol] 98.7 fL Normal 81.0-99.0 [facility] Comment on above: Performed By: #### B MP, HEPPA, LIPAS, MG, CBCWD, ANION, OSMOL, EGFR1 #### [place] [address] Monocytes (Bld) [#/Vol] 1.1 thou/mm3 Normal 0.4-1.3 [facility] Comment on above: Performed By: #### B MP, HEPPA, LIPAS, MG, CBCWD, ANION, OSMOL, EGFR1 #### [place] [address] Monocytes/100 WBC (Bld) 7.1 % Normal [facility] Comment on above: Performed By: #### B MP, HEPPA, LIPAS, MG, CBCWD, ANION, OSMOL, EGFR1 #### [address] [address] Neutrophils/100 WBC (Bld) 51.9 % Normal [facility] Comment on above: Performed By: #### B MP, HEPPA, LIPAS, MG, CBCWD, ANION, OSMOL, EGFR1 #### [address] [address] Nucleated RBC/100 WBC (Bld) [Ratio] 0 /100 wbc Normal [facility] Comment on above: Performed By: #### B MP, HEPPA, LIPAS, MG, CBCWD, ANION, OSMOL, EGFR1 #### [address] [address] Platelet mean volume (Bld) [Entitic vol] 10.8 fL Normal 9.4-12.4 [facility] Comment on above: Performed By: #### B MP, HEPPA, LIPAS, MG, CBCWD, ANION, OSMOL, EGFR1 #### [place] [address] Platelets (Bld) [#/Vol] 309 thou/mm3 Normal 130-400 [facility] Comment on above: Performed By: #### B MP, HEPPA, LIPAS, MG, CBCWD, ANION, OSMOL, EGFR1 #### [place] [address] RBC (Bld) [#/Vol] 3.79 mill/mm3 Low 4.20-5.40 [facility] Comment on above: Performed By: #### B MP, HEPPA, LIPAS, MG, CBCWD, ANION, OSMOL, EGFR1 #### [place] [address] RDW-SD 51.1 fL High 35.0-45.0 [facility] Comment on above: Performed By: #### B MP, HEPPA, LIPAS, MG, CBCWD, ANION, OSMOL, EGFR1 #### [place] [address] WBC (Bld) [#/Vol] 15.9 thou/mm3 High 4.8-10.8 [facility] Comment on above: Performed By: #### B MP, HEPPA, LIPAS, MG, CBCWD, ANION, OSMOL, EGFR1 #### [place] [address] CBC auto differentialon 08-0 Basophils (Bld) [#/Vol] 0.1 10*3/uL [place] Basophils/100 WBC (Bld) 0.4 % [place] Eosinophils (Bld) [#/Vol] 0.0 10*3/uL [place] Eosinophils/100 WBC (Bld) 0 % [place] Erythrocyte distribution width (RBC) [Ratio] 14 % 11.5 - 14.5 % [place] Hematocrit (Bld) [Volume fraction] 37.4 % 37 - 47 % [place] Hemoglobin (Bld) [Mass/Vol] 11.5 g/dL [place] Immature Grans (Abs) 0.05 [place] Immature granulocytes (Bld) [#/Vol] 0.3 % [place] Interpretation and review of laboratory results Abnormal [place] Lymphocytes (Bld) [#/Vol] 6.4 10*3/uL [place] Lymphocytes/100 WBC (Bld) 40.3 % [place] MCH (RBC) [Entitic mass] 30.3 pg 26 - 33 pg [place] MCHC (RBC) [Mass/Vol] 30.7 g/dL [place] MCV (RBC) [Entitic vol] 98.7 fL 81 - 99 fL [place] Monocytes (Bld) [#/Vol] 1.1 10*3/uL [place] Monocytes/100 WBC (Bld) 7.1 % [place] Nucleated RBC/100 WBC (Bld) [Ratio] 0 % /100 wbc [place] Comment on above: Performed at [facility] [address] [place] [address] Platelet mean volume (Bld) [Entitic vol] 10.8 fL 9.4 - 12.4 fL [place] Platelets (Bld) [#/Vol] ADEQUATE Adequate [place] Platelets (Bld) [#/Vol] 309 10*3/uL [place] RBC (Bld) [#/Vol] 3.79 10*6/uL [place] RDW-SD 51.1 fL High 35 - 45 fL [place] Segmented neutrophils/100 WBC (Bld) 51.9 % [place] Segs Absolute 8.3 [place] WBC (Bld) [#/Vol] 15.9 10*3/uL [place] EKG 12-LEADon 01-13-2019 EKG 12-LEAD 83 83 222 132 410 481 51 -23 66 Sinus rhythm with 1st degree A-V block Possible Left atrial enlargement Right bundle branch block Abnormal ECG When compared with ECG of 07-DEC-2018 12:20, Inverted T waves have replaced nonspecific T wave abnormality in Anterior leads Confirmed by MAXINE HART ([id number]) on 01/14/2019 1:10:42 PM [email or web address]&Date=02-13-20 19&Time=[id number] &TestType=ECG&Site=3&Outp utType=PDF&Ext=PDF Normal [facility] GFR, ESTIMATEDon 01-13-2019 GFR/1.73 sq M.predicted MDRD (S/P/Bld) [Vol rate/Area] 57 ml/min/1.73m2 Abnormal [facility] Comment on above: Result Comment: Stag e Description GFR, ml/min/1.73 m2 - At increased risk > or = 60 (with chronic kidney disease risk factors) 1 Normal or increased GFR > or = 90 2 Mildly or decreased GFR 60 - 89 3 Moderately decreased GFR 30 - 59 4 Severely decreased GFR 15 - 29 5 Kidney failure <15 (or dialysis) Estimated GFR calculated using abbreviated MDRD formula as recommended by [employer]. Calculation based upon serum creatinine and adjusted for age, gender & race. Karena. Internal Med., Vol. 139 (2) pg 137-147. Performed By: #### B MP, HEPPA, LIPAS, MG, CBCWD, ANION, OSMOL, EGFR1 #### [facility] [address] [place] [address] GLUCOSE POCon 01-13-2019 Glucose [Mass/Vol] 86 mg/dL Normal 70-108 [facility] Comment on above: Performed By: #### P OCGL #### [facility] [address] [place] [address] Glomerular Filtration Rate, Estimatedon 01-13-2019 Est, Glom Filt Rate 57 Abnormal ml/min/[address] [place] [address], [place] Comment on above: Stage Description GF R, ml/min/1.73 m2 - At increased risk > or = 60 (with chronic kidney disease risk factors) 1 Normal or increased GFR > or = 90 2 Mildly or decreased GFR 60 - 89 3 Moderately decreased GFR 30 - 59 4 Severely decreased GFR 15 - 29 5 Kidney failure <15 (or dialysis) Estimated GFR calculated using abbreviated MDRD formula as recommended by National Kidney Foundation. Calculation based upon serum creatinine and adjusted for age, gender & race. Karena. Internal Med., Vol. 139 (2) pg 137-147. Performed at [facility] [address] [address] LIPASEon 01-13-2019 Lipase [Catalytic activity/Vol] U/L Low 5.6-51.3 [facility] Comment on above: Performed By: #### B MP, HEPPA, LIPAS, MG, CBCWD, ANION, OSMOL, EGFR1 #### [address] [address] Lipaseon 01-13-2019 Lipase [Catalytic activity/Vol] U/L Low 5.6 - 51.3 U/L [place], [place] Comment on above: Performed at [facility] [place] [address] Osmolalityon 01-13-2019 Osmolality Calc 282.2 [place], [place] Comment on above: Performed at [facility] [place] [address] Otheron 01-13-2019 Interpretation and review of laboratory results Abnormal [place], [place] POCT glucoseon 01-13-2019 Glucose [Mass/Vol] 86 mg/dL 70 - 108 mg/dl [place] Comment on above: Performed at [facility] [place] [address] SCAN OF BLOOD SMEARon 2018 SCAN OF BLOOD SMEAR see below Normal [facility] Comment on above: Result Comment: Williamt taj Exceeded; Scan of Differential Slide Performed Performed By: #### B MP, HEPPA, LIPAS, MG, CBCWD, ANION, OSMOL, EGFR1 #### [address] [address] Scan of Blood Smearon 2018 SCAN OF BLOOD SMEAR see below [place], [place] Comment on above: Criteria Exceeded; S can of Differential Slide [place]formed [place] [address] TROPONIN-Ton 01-13-2019 Troponin T.cardiac [Mass/Vol] ug/L Normal [facility] Comment on above: Result Comment: <0.0 10 ng/ml Normal > or = 0.010 ng/ml Elevated (99%) Consistent with myocardial damage Cardiac troponin values can be elevated by many disease states in addition to acute ischemia. These include, but are not limited to: chronic renal failure, CHF, CVA, pulmonary embolus, COPD, myocardial trauma/surgery, myocarditis, pericarditis, tachycardia, aortic dissection, amyloidosis, sepsis and strenuous exercise. Serial measurement of troponin is strongly recommended as a first step in determining whether a low level elevation represents an acute or chronic condition. Performed By: #### B MP, HEPPA, LIPAS, MG, CBCWD, ANION, OSMOL, EGFR1 #### [employer] [address] [place] [address] Troponinon 01-13-2019 Troponin T.cardiac [Mass/Vol] ug/L ng/ml [place] Comment on above: <0.010 ng/ml Normal > or = 0.010 ng/ml Elevated (99%) Consistent with myocardial damage Cardiac troponin values can be elevated by many disease states in addition to acute ischemia. These include, but are not limited to: chronic renal failure, CHF, CVA, pulmonary embolus, COPD, myocardial trauma/surgery, myocarditis, pericarditis, tachycardia, aortic dissection, amyloidosis, sepsis and strenuous exercise. Serial measurement of troponin is strongly recommended as a first step in determining whether a low level elevation represents an acute or chronic condition. Performed at [facility] [address] [place] [address] ANION GAPon 12-07-2018 Anion gap [Moles/Vol] 10.0 mmol/L Normal 8.0-16.0 [facility] Comment on above: Result Comment: ANIO N GAP = Sodium -(Chloride + CO2) Performed By: #### B MP, HEPPA, LIPAS, MG, CBCWD, ANION, OSMOL, EGFR1 #### [facility] [address] [place] [address] BASIC METABOL PANELon 2018 Calcium [Mass/Vol] 9.6 mg/dL Normal 8.5-10.5 [facility] Comment on above: Performed By: #### B MP, HEPPA, LIPAS, MG, CBCWD, ANION, OSMOL, EGFR1 #### [facility] [address] [place] [address] Chloride [Moles/Vol] 109 mmol/L Normal 98-111 [facility] Comment on above: Performed By: #### B MP, HEPPA, LIPAS, MG, CBCWD, ANION, OSMOL, EGFR1 #### [address] [address] CO2 [Moles/Vol] 23 mmol/L Normal 23-33 [facility] Comment on above: Performed By: #### B MP, HEPPA, LIPAS, MG, CBCWD, ANION, OSMOL, EGFR1 #### [address] [address] Creatinine [Mass/Vol] 1.2 mg/dL Normal 0.4-1.[address] [facility] Comment on above: Performed By: #### B MP, HEPPA, LIPAS, MG, CBCWD, ANION, OSMOL, EGFR1 #### [address] [address] Glucose [Mass/Vol] 142 mg/dL High 70-108 [facility] Comment on above: Performed By: #### B MP, HEPPA, LIPAS, MG, CBCWD, ANION, OSMOL, EGFR1 #### [address] [address] Potassium [Moles/Vol] 3.5 mmol/L Normal 3.5-5.[address] [facility] Comment on above: Performed By: #### B MP, HEPPA, LIPAS, MG, CBCWD, ANION, OSMOL, EGFR1 #### [facility] [address] [place] [address] Sodium [Moles/Vol] 142 mmol/L Normal 135-145 [facility] Comment on above: Performed By: #### B MP, HEPPA, LIPAS, MG, CBCWD, ANION, OSMOL, EGFR1 #### [address] [address] Urea nitrogen [Mass/Vol] 19 mg/dL Normal 7-22 [facility] Comment on above: Performed By: #### B MP, HEPPA, LIPAS, MG, CBCWD, ANION, OSMOL, EGFR1 #### [place] [address] CALCULATED OSMOLALITYon Osmolality [Osmolality] 287.8 mOsmol/kg Normal 275.0-300. [facility] Comment on above: Performed By: #### B MP, HEPPA, LIPAS, MG, CBCWD, ANION, OSMOL, EGFR1 #### [place] [address] CBC WITH DIFFERENTIALon ABS IMMATURE GRANS (IG) 0.02 thou/mm3 Normal 0.00-0.07 [facility] Comment on above: Performed By: #### B MP, HEPPA, LIPAS, MG, CBCWD, ANION, OSMOL, EGFR1 #### [place] [address] ABS NEUTROPHILS 6.1 thou/mm3 Normal 1.8-7.7 [facility] Comment on above: Performed By: #### B MP, HEPPA, LIPAS, MG, CBCWD, ANION, OSMOL, EGFR1 #### [place] [address] Basophils (Bld) [#/Vol] 0.1 thou/mm3 Normal 0.0-0.1 [facility] Comment on above: Performed By: #### B MP, HEPPA, LIPAS, MG, CBCWD, ANION, OSMOL, EGFR1 #### [place] [address] Basophils/100 WBC (Bld) 0.8 % Normal [facility] Comment on above: Performed By: #### B MP, HEPPA, LIPAS, MG, CBCWD, ANION, OSMOL, EGFR1 #### [place] [address] Eosinophils (Bld) [#/Vol] 0.0 thou/mm3 Normal 0.0-0.4 [facility] Comment on above: Performed By: #### B MP, HEPPA, LIPAS, MG, CBCWD, ANION, OSMOL, EGFR1 #### [address] [address] Eosinophils/100 WBC (Bld) 0.0 % Normal [facility] Comment on above: Performed By: #### B MP, HEPPA, LIPAS, MG, CBCWD, ANION, OSMOL, EGFR1 #### [address] [address] Erythrocyte distribution width (RBC) [Ratio] 14.3 % Normal 11.5-14.5 [facility] Comment on above: Performed By: #### B MP, HEPPA, LIPAS, MG, CBCWD, ANION, OSMOL, EGFR1 #### [place] [address] Hematocrit (Bld) [Volume fraction] 37.0 % Normal 37.0-47.0 [facility] Comment on above: Performed By: #### B MP, HEPPA, LIPAS, MG, CBCWD, ANION, OSMOL, EGFR1 #### [address] [address] Hemoglobin (Bld) [Mass/Vol] 11.7 gm/dl Low 12.0-16.0 [facility] Comment on above: Performed By: #### B MP, HEPPA, LIPAS, MG, CBCWD, ANION, OSMOL, EGFR1 #### [address] [address] IMMATURE GRANS (IG) 0.2 % Normal [facility] Comment on above: Performed By: #### B MP, HEPPA, LIPAS, MG, CBCWD, ANION, OSMOL, EGFR1 #### [address] [address] Lymphocytes (Bld) [#/Vol] 3.7 thou/mm3 Normal 1.0-4.8 [facility] Comment on above: Performed By: #### B MP, HEPPA, LIPAS, MG, CBCWD, ANION, OSMOL, EGFR1 #### [address] [address] Lymphocytes/100 WBC (Bld) 34.5 % Normal [facility] Comment on above: Performed By: #### B MP, HEPPA, LIPAS, MG, CBCWD, ANION, OSMOL, EGFR1 #### [place] [address] MCH (RBC) [Entitic mass] 30.4 pg Normal 26.0-33.0 [facility] Comment on above: Performed By: #### B MP, HEPPA, LIPAS, MG, CBCWD, ANION, OSMOL, EGFR1 #### [place] [address] MCHC (RBC) [Mass/Vol] 31.6 gm/dl Low 32.2-35.[address] [facility] Comment on above: Performed By: #### B MP, HEPPA, LIPAS, MG, CBCWD, ANION, OSMOL, EGFR1 #### [place] [address] MCV (RBC) [Entitic vol] 96.1 fL Normal 81.0-99.0 [facility] Comment on above: Performed By: #### B MP, HEPPA, LIPAS, MG, CBCWD, ANION, OSMOL, EGFR1 #### [place] [address] Monocytes (Bld) [#/Vol] 0.7 thou/mm3 Normal 0.4-1.3 [facility] Comment on above: Performed By: #### B MP, HEPPA, LIPAS, MG, CBCWD, ANION, OSMOL, EGFR1 #### [place] [address] Monocytes/100 WBC (Bld) 6.8 % Normal [facility] Comment on above: Performed By: #### B MP, HEPPA, LIPAS, MG, CBCWD, ANION, OSMOL, EGFR1 #### [place] [address] Neutrophils/100 WBC (Bld) 57.7 % Normal [facility] Comment on above: Performed By: #### B MP, HEPPA, LIPAS, MG, CBCWD, ANION, OSMOL, EGFR1 #### [place] [address] Nucleated RBC/100 WBC (Bld) [Ratio] 0 /100 wbc Normal [facility] Comment on above: Performed By: #### B MP, HEPPA, LIPAS, MG, CBCWD, ANION, OSMOL, EGFR1 #### [place] [address] Platelet mean volume (Bld) [Entitic vol] 11.3 fL Normal 9.4-12.4 [facility] Comment on above: Performed By: #### B MP, HEPPA, LIPAS, MG, CBCWD, ANION, OSMOL, EGFR1 #### [place] [address] Platelets (Bld) [#/Vol] 314 thou/mm3 Normal 130-400 [facility] Comment on above: Performed By: #### B MP, HEPPA, LIPAS, MG, CBCWD, ANION, OSMOL, EGFR1 #### [place] [address] RBC (Bld) [#/Vol] 3.85 mill/mm3 Low 4.20-5.40 [facility] Comment on above: Performed By: #### B MP, HEPPA, LIPAS, MG, CBCWD, ANION, OSMOL, EGFR1 #### [place] [address] RDW-SD 50.4 fL High 35.0-45.0 [facility] Comment on above: Performed By: #### B MP, HEPPA, LIPAS, MG, CBCWD, ANION, OSMOL, EGFR1 #### [place] [address] WBC (Bld) [#/Vol] 10.6 thou/mm3 Normal 4.8-10.8 [facility] Comment on above: Performed By: #### B MP, HEPPA, LIPAS, MG, CBCWD, ANION, OSMOL, EGFR1 #### [place] [address] EKG 12-LEADon 12-07-2018 EKG 12-LEAD 62 62 206 120 [phone] Normal sinus rhythm Right bundle branch block Abnormal ECG No previous ECGs available Confirmed by BEE FLYNN MD ([id number]) on 12/07/2018 7:07:34 PM [email or web address] [id number]&Date=08-12-19 19&Time=[id number]%3a00 &TestType=ECG&Site=3&Outp utType=PDF&Ext=PDF Normal [facility] GFR, ESTIMATEDon 12-07-2018 GFR/1.73 sq M.predicted MDRD (S/P/Bld) [Vol rate/Area] 52 ml/min/1.73m2 Abnormal [facility] Comment on above: Result Comment: Rupinder berrios Description GFR, ml/min/1.73 m2 - At increased risk > or = 60 (with chronic kidney disease risk factors) 1 Normal or increased GFR > or = 90 2 Mildly or decreased GFR 60 - 89 3 Moderately decreased GFR 30 - 59 4 Severely decreased GFR 15 - 29 5 Kidney failure <15 (or dialysis) Estimated GFR calculated using abbreviated MDRD formula as recommended by National Kidney Foundation. Calculation based upon serum creatinine and adjusted for age, gender & race. Karena. Internal Med., Vol. 139 (2) pg 137-147. Performed By: #### B MP, HEPPA, LIPAS, MG, CBCWD, ANION, OSMOL, EGFR1 #### [employer] [address] [place] [address] HEPATIC FUNCTION PANELon Albumin [Mass/Vol] 4.3 g/dL Normal 3.5-5.1 [facility] Comment on above: Performed By: #### B MP, HEPPA, LIPAS, MG, CBCWD, ANION, OSMOL, EGFR1 #### [employer] [address] [place] [address] ALP [Catalytic activity/Vol] 100 U/L Normal 38-126 [facility] Comment on above: Performed By: #### B MP, HEPPA, LIPAS, MG, CBCWD, ANION, OSMOL, EGFR1 #### [employer] [address] [place] [address] ALT [Catalytic activity/Vol] 26 U/L Normal 11-66 [facility] Comment on above: Performed By: #### B MP, HEPPA, LIPAS, MG, CBCWD, ANION, OSMOL, EGFR1 #### [address] [address] AST [Catalytic activity/Vol] 25 U/L Normal 5-40 [facility] Comment on above: Performed By: #### B MP, HEPPA, LIPAS, MG, CBCWD, ANION, OSMOL, EGFR1 #### [address] [address] Bilirubin [Mass/Vol] mg/dL Normal 0.0-0.3 [facility] Comment on above: Performed By: #### B MP, HEPPA, LIPAS, MG, CBCWD, ANION, OSMOL, EGFR1 #### [address] [address] Bilirubin Ql (U) 0.4 mg/dL Normal 0.3-1.2 [facility] Comment on above: Performed By: #### B MP, HEPPA, LIPAS, MG, CBCWD, ANION, OSMOL, EGFR1 #### [address] [address] Protein [Mass/Vol] 7.9 g/dL Normal 6.1-8.0 [facility] Comment on above: Performed By: #### B MP, HEPPA, LIPAS, MG, CBCWD, ANION, OSMOL, EGFR1 #### [address] [address] LIPASEon 12-07-2018 Lipase [Catalytic activity/Vol] 7.0 U/L Normal 5.6-51.3 [facility] Comment on above: Performed By: #### B MP, HEPPA, LIPAS, MG, CBCWD, ANION, OSMOL, EGFR1 #### [address] [address] MAGNESIUMon 12-07-2018 Magnesium [Mass/Vol] 1.8 mg/dL Normal 1.6-2.4 [facility] Comment on above: Performed By: #### B MP, HEPPA, LIPAS, MG, CBCWD, ANION, OSMOL, EGFR1 #### [facility] [address] [place] [address] Body fluid albumin measureme nt (mass/volume)on 07-20-2018 Albumin (Body fld) [Mass/Vol] 3.7 g/dL 3.2-5.5 [facility] Cholesterol [Mass/volume] in Serum or Plasmaon 07-20-2018 Cholesterol [Mass/Vol] 179 mg/dL 140-200 [facility] Comment on above: Chol less than 200 m g/dl low risk Chol 201-239 mg/dl borderline risk Chol 240 mg/dl and greater high risk Chol less than 200 m g/dl low riskChol 201-239 mg/dl borderline riskChol 240 mg/dl and greater high risk Cholesterol in LDL Calc [Mas s/Vol]on 07-20-2018 Cholesterol in LDL [Mass/Vol] 96 mg/dL 0-100 [facility] Comment on above: LDL ATP III CLASSIFI CATION LDL less than 100 mg/dL Optimal LDL 100-129 mg/dL Near or above optimal LDL 130-159 mg/dL Borderline high LDL 160-189 mg/dL High LDL greater than 189 mg/dL Very high LDL ATP III CLASSIFI CATIONLDL less than 100 mg/dL OptimalLDL 100-129 mg/dL Near or above optimalLDL 130-159 mg/dL Borderline highLDL 160-189 mg/dL HighLDL greater than 189 mg/dL Very high Cholesterol in VLDL Calc [Ma ss/Vol]on 07-20-2018 Cholesterol in VLDL [Mass/Vol] 55 mg/dL [facility] Creatinine [Mass/volume] in Urineon 07-20-2018 Creatinine (U) [Mass/Vol] 166.5 mg/dL [facility] Comment on above: No reference range e stablished Creatinine and Glomerular fi ltration rate.predicted panel (S/P/Bld)on 07-20-2018 Creatinine [Mass/Vol] 0.97 mg/dL 0.44-1.[address] [facility] Estimated glomerular filtrat ion rate (GFR) non- Americanon 07-20-2018 GFR/1.73 sq M.predicted among non-blacks MDRD (S/P/Bld) [Vol rate/Area] mL/min/{1.73_m2} [facility] - Chemistry and C hemistry - challengeon 07-20-2018 Cholesterol.total/Chol esterol in HDL [Mass ratio] 6.4 {ratio} <5.0 [facility] GFR/1.73 sq M.predicted among blacks MDRD (S/P/Bld) [Vol rate/Area] mL/min/{1.73_m2} [facility] Comment on above: GFR estimated refere nce range: According to KDOQI guidelines, <60 ml/min/1.73m2 is sufficient to diagnose a patient with chronic kidney disease. No Panel Informationon 07-20 Pharmacy Creatinine Clearance (Chem N/A [facility] Phosphate [Mass/volume] in S michael or Plasmaon 07-20-2018 Phosphate [Mass/Vol] 5.0 mg/dL 2.5-4.6 [facility] Serum or plasma calcidiol me asurement (mass/volume)on 07-20-2018 25-hydroxyvitamin D3 [Mass/Vol] ng/mL 30-100 [facility] Comment on above: VITAMIN D STATUS 25( [place])VITAMIN D RANGE (ng/mL) Deficient <20 Insufficient 20 to <30 Sufficient 30 to 100 Reference: Humberto Jay, Maxime SIMS, et al. Evaluation,treatment, and prevention of vitamin D deficiency; an Endocrine Society clinical practice guideline. JCEM. 2010; 96(7):1911-30. VITAMIN D STATUS 25( [place])VITAMIN D RANGE (ng/mL) Deficient <20 Insufficient 20 to <30Sufficient 30 to 100Reference: Humberto Jay, Maxime SIMS, et al. Evaluation,treatment, and prevention of vitamin D deficiency; an Endocrine Society clinical practice guideline. JCEM. 2010; 96(7):1911-30. Serum or plasma calcium amber urement (mass/volume)on 07-20-2018 Calcium [Mass/Vol] 9.3 mg/dL 8.2-10.2 [facility] Serum or plasma chloride franco surement (moles/volume)on 07-20-2018 Chloride [Moles/Vol] 103 mmol/L 95-114 [facility] Serum or plasma glucose amber urement (mass/volume)on 07-20-2018 Glucose [Mass/Vol] 118 mg/dL 70-100 [facility] Comment on above: ADA recommended refe rence range Random Glucose Reference Range is dependent on time and content of last meal. Glucose of more than 200 mg/dL in a nonstressed, ambulatory subject supports the diagnosis of Diabetes Mellitus. ADA recommended refe rence rangeRandom Glucose Reference Range is dependent on time and content of last meal. Glucose of more than 200 mg/dL in a nonstressed, ambulatory subject supports the diagnosis of Diabetes Mellitus. Serum or plasma high density lipoprotein (HDL) cholesterol measurementon 07-20-2018 Cholesterol in HDL [Mass/Vol] 28 mg/dL 35-85 [facility] Comment on above: HDL CHOL ATP-III CLA SSIFICATION Cardiovascular Risk HDL > or equal to 60 mg/dL LOW HDL < 40 mg/dL HIGH HDL CHOL ATP-III CLA SSIFICATION Cardiovascular RiskHDL > or equal to 60 mg/dL LOWHDL < 40 mg/dL HIGH Serum or plasma potassium me asurement (moles/volume)on 07-20-2018 Potassium [Moles/Vol] 5.1 mmol/L 3.5-5.[address] [facility] Serum or plasma sodium measu rement (moles/volume)on 07-20-2018 Sodium [Moles/Vol] 135 mmol/L 136-146 [facility] Serum or plasma total carbon dioxide measurement (moles/volume)on 07-20-2018 CO2 [Moles/Vol] 23.8 mmol/L 22.0-30.0 [facility] Serum or plasma urea nitroge n measurement (mass/volume)on 07-20-2018 Urea nitrogen [Mass/Vol] 21 mg/dL 9-23 [facility] Triglyceride [Mass/volume] i n Serum or Plasmaon 07-20-2018 Triglyceride [Mass/Vol] 276 mg/dL 35-149 [facility] Comment on above: TRIG ATP III CLASSIF ICATION TRIG less than 150 mg/dL Normal TRIG 150-199 mg/dL Borderline high TRIG 200-500 mg/dL High TRIG greater than 500 mg/dL Very high Standard traceable to the Center for Disease Conrtrol and Prevention (CDC) test method. TRIG ATP III CLASSIF ICATIONTRIG less than 150 mg/dL NormalTRIG 150-199 mg/dL Borderline highTRIG 200-500 mg/dL High TRIG greater than 500 mg/dL Very highStandard traceable to the Center for Disease Conrtrol and Prevention (CDC) test method. Urine microalbumin measureme nt with detection limit of 20 mg/L or less (mass/volume)on 07-20-2018 Albumin DL <= 20 mg/L (U) [Mass/Vol] 2.5 mg/dL 0.0-1.8 [facility] Urine microalbumin/creatinin e mass ratioon 07-20-2018 Albumin/Creatinine DL <= 20 mg/L (U) [Mass ratio] 15.0 mg/g 0.0-30.0 [facility] Comment on above: 30-300 mg/g indicate s an increased risk for diabetic nephropathy. Greater than 300 mg/g is consistent with clinical nephropathy. (Am. J. Kidney Disease 1995, 25:107) Vitamin B12 ser/plason 07-20 Cobalamin (Vitamin B12) [Mass/Vol] 637 pg/mL 180-914 [facility] Vital Signs Date Time Vital Sign Value Performing Clinician Facility 11-06-2024 09:36-0400 Diastolic blood pressure 106 mm[Hg] [employer] DO Work Phone: [facility] 11-06-2024 09:36-0400 Systolic blood pressure 165 mm[Hg] Jalyn Schwerer DO Work Phone: [facility] 11-06-2024 09:31-0400 Body height 172.72 cm [employer] DO Work Phone: [facility] 11-06-2024 09:31-0400 Body mass index (BMI) [Ratio] 23.1 kg/m2 [employer] DO Work Phone: [facility] 11-06-2024 09:31-0400 Body weight 68.8 kg [employer] DO Work Phone: [facility] 11-06-2024 09:31-0400 Heart rate 73 /min Jalyn Schwerer DO Work Phone: [facility] 11-06-2024 09:31-0400 Respiratory rate 18 /min Jalyn Schwerer DO Work Phone: [facility] 11-06-2024 09:31-0400 SaO2% (BldA) [Mass fraction] 99 % Jalyn Schwerer DO Work Phone: [facility] 09-25-2024 11:21-0400 Body mass index (BMI) [Ratio] 22.96 kg/m2 Antonino Delgado MD Work Phone: [facility] 09-25-2024 11:21-0400 Body weight 68.49 kg Antonino Delgado MD Work Phone: [facility] 09-25-2024 11:21-0400 Diastolic blood pressure 80 mm[Hg] Antonino Delgado MD Work Phone: [facility] 09-25-2024 11:21-0400 Systolic blood pressure 130 mm[Hg] Antonino Delgado MD Work Phone: [facility] 09-25-2024 10:42-0400 Body height 172.72 cm Jalyn Schwerer DO Work Phone: [facility] 09-25-2024 10:42-0400 Body mass index (BMI) [Ratio] 22.4 kg/m2 Jalyn Schwerer DO Work Phone: [facility] 09-25-2024 10:42-0400 Body temperature 97.5 [degF] Jalyn Schwerer DO Work Phone: [facility] 09-25-2024 10:42-0400 Body weight 66.93 kg Jalyn Schwerer DO Work Phone: [facility] 09-25-2024 10:42-0400 Diastolic blood pressure 98 mm[Hg] Jalyn Schwerer DO Work Phone: [facility] 09-25-2024 10:42-0400 Heart rate 85 /min Jalyn Schwerer DO Work Phone: [facility] 09-25-2024 10:42-0400 SaO2% (BldA) [Mass fraction] 98 % Jalyn Schwerer DO Work Phone: [facility] 09-25-2024 10:42-0400 Systolic blood pressure 142 mm[Hg] Jalyn Schwerer DO Work Phone: [facility] 09-11-2024 14:41-0400 Heart rate 79 /min Jalyn Schwerer DO Work Phone: [facility] 09-11-2024 14:41-0400 SaO2% (BldA) [Mass fraction] 84 % Jalyn Schwerer DO Work Phone: [facility] 09-11-2024 13:33-0400 Body temperature 97.4 [degF] Jalyn Schwerer DO Work Phone: [facility] 09-11-2024 13:33-0400 Diastolic blood pressure 83 mm[Hg] Jalyn Schwerer DO Work Phone: [facility] 09-11-2024 13:33-0400 Systolic blood pressure 145 mm[Hg] Jalyn Schwerer DO Work Phone: [facility] 09-11-2024 10:00-0400 Respiratory rate 18 /min Jalyn Schwerer DO Work Phone: [facility] 09-11-2024 09:35-0400 Inhaled oxygen flow rate 6 L/min Jalyn Schwerer DO Work Phone: [facility] 09-11-2024 06:10-0400 Body height 172.72 cm Jalyn Schwerer DO Work Phone: [facility] 09-11-2024 06:10-0400 Body weight 70 kg Jalyn Schwerer DO Work Phone: [facility] 08-04-2024 05:24-0500 Diastolic blood pressure 110 mm[Hg] Jalyn Schwerer DO Work Phone: [facility] 08-04-2024 05:24-0500 Heart rate 82 /min Jalyn Schwerer DO Work Phone: [facility] 08-04-2024 05:24-0500 Respiratory rate 20 /min Jalyn Schwerer DO Work Phone: [facility] 08-04-2024 05:24-0500 SaO2% (BldA) [Mass fraction] 98 % Jalyn Schwerer DO Work Phone: [facility] 08-04-2024 05:24-0500 Systolic blood pressure 176 mm[Hg] Jalyn Schwerer DO Work Phone: [facility] 08-04-2024 03:56-0500 Body height 173.99 cm Jalyn Schwerer DO Work Phone: [facility] 08-04-2024 03:56-0500 Body temperature 98.3 [degF] Jalyn Schwerer DO Work Phone: [facility] 08-04-2024 03:56-0500 Body weight 72.45 kg Jalyn Schwerer DO Work Phone: [facility] 08-02-2024 09:39-0500 Diastolic blood pressure 107 mm[Hg] Jalyn Schwerer DO Work Phone: [facility] 08-02-2024 09:39-0500 Systolic blood pressure 168 mm[Hg] Jalyn Schwerer DO Work Phone: [facility] 08-02-2024 09:32-0500 Body height 172.72 cm Jalyn Schwerer DO Work Phone: [facility] 08-02-2024 09:32-0500 Body mass index (BMI) [Ratio] 23.8 kg/m2 Jalyn Schwerer DO Work Phone: [facility] 08-02-2024 09:32-0500 Body weight 71.3 kg Jalyn Schwerer DO Work Phone: [facility] 08-02-2024 09:32-0500 Heart rate 69 /min Jalyn Schwerer DO Work Phone: [facility] 08-02-2024 09:32-0500 Respiratory rate 18 /min Jalyn Schwerer DO Work Phone: [facility] 08-02-2024 09:32-0500 SaO2% (BldA) [Mass fraction] 98 % Jalyn Schwerer DO Work Phone: [facility] 07-27-2024 11:16-0500 Body mass index (BMI) [Ratio] 24.02 kg/m2 Antonino Delgado MD Work Phone: [facility] 07-27-2024 11:16-0500 Body weight 71.67 kg Antonino Delgado MD Work Phone: [facility] 07-27-2024 11:16-0500 Diastolic blood pressure 98 mm[Hg] Antonino Delgado MD Work Phone: [facility] 07-27-2024 11:16-0500 Systolic blood pressure 148 mm[Hg] Antonino Delgado MD Work Phone: [facility] 05-22-2024 13:19-0500 Body height 172.7 cm Daniel Murcek DO Work Phone: [facility] 05-22-2024 13:19-0500 Body mass index (BMI) [Ratio] 23.57 kg/m2 Daniel Murcek DO Work Phone: [facility] 05-22-2024 13:19-0500 Body weight 70.31 kg Daniel Cuevas DO Work Phone: [facility] 05-15-2024 10:25-0500 Diastolic blood pressure 100 mm[Hg] Jalyn Schwerer DO Work Phone: [facility] 05-15-2024 10:25-0500 Heart rate 70 /min Jalyn Schwerer DO Work Phone: [facility] 05-15-2024 10:25-0500 Respiratory rate 16 /min Jalyn Schwerer DO Work Phone: [facility] 05-15-2024 10:25-0500 SaO2% (BldA) [Mass fraction] 96 % Jalyn Schwerer DO Work Phone: [facility] 05-15-2024 10:25-0500 Systolic blood pressure 152 mm[Hg] Jalyn Schwerer DO Work Phone: [facility] 05-15-2024 08:50-0500 Body temperature 96.9 [degF] Jalyn Schwerer DO Work Phone: [facility] 05-15-2024 08:50-0500 Inhaled oxygen flow rate 8 L/min Jalyn Schwerer DO Work Phone: [facility] 05-15-2024 06:52-0500 Body height 172.72 cm Jalyn Schwerer DO Work Phone: [facility] 05-15-2024 06:52-0500 Body weight 66.67 kg Jalyn Schwerer DO Work Phone: [facility] 05-08-2024 09:05-0500 Body height 172.72 cm Jalyn Schwerer DO Work Phone: [facility] 05-08-2024 09:05-0500 Body mass index (BMI) [Ratio] 24.5 kg/m2 Jalyn Schwerer DO Work Phone: [facility] 05-08-2024 09:05-0500 Body temperature 98.4 [degF] Jalyn Schwerer DO Work Phone: [facility] 05-08-2024 09:05-0500 Body weight 73.05 kg Jalyn Schwerer DO Work Phone: [facility] 05-08-2024 09:05-0500 Diastolic blood pressure 90 mm[Hg] Jalyn Schwerer DO Work Phone: [facility] 05-08-2024 09:05-0500 Heart rate 69 /min Jalyn Schwerer DO Work Phone: [facility] 05-08-2024 09:05-0500 SaO2% (BldA) [Mass fraction] 98 % Jalyn Schwerer DO Work Phone: [facility] 05-08-2024 09:05-0500 Systolic blood pressure 142 mm[Hg] Jalyn Schwerer DO Work Phone: [facility] 04-25-2024 09:06-0500 Body height 172.7 cm Daniel Phillipscek DO Work Phone: [facility] 04-25-2024 09:06-0500 Body mass index (BMI) [Ratio] 23.57 kg/m2 Daniel Murcek DO Work Phone: [facility] 04-25-2024 09:06-0500 Body weight 70.31 kg Daniel Phillipscek DO Work Phone: [facility] 04-11-2024 10:19-0500 Body mass index (BMI) [Ratio] 22.2 kg/m2 Jalyn Schwerer DO Work Phone: [facility] 04-11-2024 10:13-0500 Diastolic blood pressure 105 mm[Hg] [facility] 04-11-2024 10:13-0500 Systolic blood pressure 176 mm[Hg] [facility] 04-11-2024 09:57-0500 Body height 172.72 cm [facility] 04-11-2024 09:57-0500 Body mass index (BMI) [Ratio] 22.2 kg/m2 [facility] 04-11-2024 09:57-0500 Body weight 66.45 kg [facility] 04-11-2024 09:57-0500 Heart rate 85 /min [facility] 04-11-2024 09:57-0500 Respiratory rate 18 /min [facility] 04-11-2024 09:57-0500 SaO2% (BldA) [Mass fraction] 98 % [facility] 03-02-2024 15:02-0400 Diastolic blood pressure 100 mm[Hg] Kathy Pearce MD Work Phone: [facility] [employer] 03-02-2024 15:02-0400 SaO2% (BldA) [Mass fraction] 96 % Kathy Pearce MD Work Phone: [employer] 03-02-2024 15:02-0400 Systolic blood pressure 153 mm[Hg] Kathy Pearce MD Work Phone: [employer] 03-02-2024 12:47-0400 Heart rate 81 /min Kathy Pearce MD Work Phone: [employer] 03-02-2024 08:18-0400 Body height 172.7 cm Kathy Pearce MD Work Phone: [employer] 03-02-2024 08:18-0400 Body mass index (BMI) [Ratio] 22.81 kg/m2 Kathy Pearce MD Work Phone: [employer] 03-02-2024 08:18-0400 Body temperature 98.1 [degF] Kathy Pearce MD Work Phone: [employer] 03-02-2024 08:18-0400 Body weight 68.04 kg Kathy Pearce MD Work Phone: [facility] [employer] 03-02-2024 08:18-0400 Respiratory rate 18 /min Kathy Pearce MD Work Phone: [facility] [employer] 02-27-2024 09:08-0400 Body height 172.7 cm Fahad Mtz MD Work Phone: [employer] 02-27-2024 09:08-0400 Body mass index (BMI) [Ratio] 22.81 kg/m2 Fahad Mtz MD Work Phone: [employer] 02-27-2024 09:08-0400 Body temperature 97.81 [degF] Fahad Mtz MD Work Phone: [employer] 02-27-2024 09:08-0400 Body weight 68.04 kg Fahad Mtz MD Work Phone: [employer] 02-27-2024 09:08-0400 Diastolic blood pressure 96 mm[Hg] Fahad Mtz MD Work Phone: [employer] 02-27-2024 09:08-0400 Heart rate 98 /min Fahad Mtz MD Work Phone: [employer] 02-27-2024 09:08-0400 Respiratory rate 16 /min Fahad Mtz MD Work Phone: [employer] 02-27-2024 09:08-0400 SaO2% (BldA) [Mass fraction] 99 % Fahad Mtz MD Work Phone: [employer] 02-27-2024 09:08-0400 Systolic blood pressure 120 mm[Hg] Fahad Mtz MD Work Phone: [employer] 02-25-2024 11:41-0400 Body height 172.72 cm [facility] 02-25-2024 11:41-0400 Body mass index (BMI) [Ratio] 23.6 kg/m2 [facility] 02-25-2024 11:41-0400 Body temperature 98 [degF] [facility] 02-25-2024 11:41-0400 Body weight 70.42 kg [facility] 02-25-2024 11:41-0400 Diastolic blood pressure 82 mm[Hg] [facility] 02-25-2024 11:41-0400 Heart rate 80 /min [facility] 02-25-2024 11:41-0400 SaO2% (BldA) [Mass fraction] 97 % [facility] 02-25-2024 11:41-0400 Systolic blood pressure 142 mm[Hg] [facility] 01-07-2024 09:28-0400 Body height 172.72 cm [facility] 01-07-2024 09:28-0400 Body mass index (BMI) [Ratio] 23.9 kg/m2 [facility] 01-07-2024 09:28-0400 Body weight 71.46 kg [facility] 01-07-2024 09:28-0400 Diastolic blood pressure 84 mm[Hg] [facility] 01-07-2024 09:28-0400 Heart rate 73 /min [facility] 01-07-2024 09:28-0400 Respiratory rate 18 /min [facility] 01-07-2024 09:28-0400 SaO2% (BldA) [Mass fraction] 98 % [facility] 01-07-2024 09:28-0400 Systolic blood pressure 162 mm[Hg] [facility] 01-05-2024 11:33-0400 Diastolic blood pressure 129 mm[Hg] [facility] 01-05-2024 11:33-0400 Systolic blood pressure 178 mm[Hg] [facility] 01-05-2024 11:28-0400 Body height 172.72 cm [facility] 01-05-2024 11:28-0400 Body mass index (BMI) [Ratio] 23.6 kg/m2 [facility] 01-05-2024 11:28-0400 Body weight 70.47 kg [facility] 01-05-2024 11:28-0400 Heart rate 78 /min [facility] 01-05-2024 11:28-0400 Respiratory rate 18 /min [facility] 01-05-2024 11:28-0400 SaO2% (BldA) [Mass fraction] 100 % [facility] 12-03-2023 01:55-0400 Diastolic blood pressure 98 mm[Hg] Larry Perez MD Work Phone: [employer] 12-03-2023 01:55-0400 SaO2% (BldA) [Mass fraction] 98 % Larry Perez MD Work Phone: [employer] 12-03-2023 01:55-0400 Systolic blood pressure 178 mm[Hg] Larry Perez MD Work Phone: [employer] 12-03-2023 01:45-0400 Heart rate 79 /min Larry Perez MD Work Phone: [employer] 12-03-2023 01:45-0400 Respiratory rate 22 /min Larry Perez MD Work Phone: [employer] 12-02-2023 22:12-0400 Body height 172.7 cm Larry Perez MD Work Phone: [employer] 12-02-2023 22:12-0400 Body mass index (BMI) [Ratio] 23.57 kg/m2 Larry Perez MD Work Phone: [employer] 12-02-2023 22:12-0400 Body temperature 98.29 [degF] Larry Perez MD Work Phone: [employer] 12-02-2023 22:12-0400 Body weight 70.31 kg Larry Perez MD Work Phone: [employer] 10-17-2023 12:48-0400 Diastolic blood pressure 149 mm[Hg] Fahad Mtz MD Work Phone: [employer] 10-17-2023 12:48-0400 SaO2% (BldA) [Mass fraction] 97 % Fahad Mtz MD Work Phone: [facility] [employer] 10-17-2023 12:48-0400 Systolic blood pressure 246 mm[Hg] Fahad tMz MD Work Phone: [facility] [employer] 10-17-2023 12:46-0400 Heart rate 98 /min Fahad Mtz MD Work Phone: [facility] [employer] 10-17-2023 12:46-0400 Respiratory rate 16 /min Fahad Mtz MD Work Phone: [facility] [employer] 10-17-2023 08:20-0400 Body temperature 98.2 [degF] Fahad Mtz MD Work Phone: [facility] 10-08-2023 09:35-0400 Body height 172.72 cm [facility] 10-08-2023 09:35-0400 Body mass index (BMI) [Ratio] 23.7 kg/m2 [facility] 10-08-2023 09:35-0400 Body weight 70.76 kg [facility] 10-08-2023 09:35-0400 Diastolic blood pressure 88 mm[Hg] [facility] 10-08-2023 09:35-0400 Heart rate 76 /min [facility] 10-08-2023 09:35-0400 Respiratory rate 18 /min [facility] 10-08-2023 09:35-0400 SaO2% (BldA) [Mass fraction] 98 % [facility] 10-08-2023 09:35-0400 Systolic blood pressure 142 mm[Hg] [facility] 09-20-2023 11:22-0400 Body height 172.72 cm Jalyn Holt Work Phone: [facility] 09-20-2023 11:22-0400 Body mass index (BMI) [Ratio] 23.2 kg/m2 DO Jalyn Schwerer Work Phone: [facility] 09-20-2023 11:22-0400 Body weight 69.39 kg DO Jalyn Schwerer Work Phone: [facility] 09-20-2023 11:22-0400 Diastolic blood pressure 125 mm[Hg] DO Jalyn Schwerer Work Phone: [facility] 09-20-2023 11:22-0400 Heart rate 80 /min DO Jalny Schwerer Work Phone: [facility] 09-20-2023 11:22-0400 Respiratory rate 18 /min DO Jalyn Schwerer Work Phone: [facility] 09-20-2023 11:22-0400 SaO2% (BldA) [Mass fraction] 98 % DO Jalyn Schwerer Work Phone: [facility] 09-20-2023 11:22-0400 Systolic blood pressure 230 mm[Hg] DO Jalyn Schwerer Work Phone: [facility] 09-06-2023 18:45-0400 Diastolic blood pressure 131 mm[Hg] Kateryna Anguiano DO Work Phone: [employer] 09-06-2023 18:45-0400 SaO2% (BldA) [Mass fraction] 95 % Kateryna Anguiano DO Work Phone: [employer] 09-06-2023 18:45-0400 Systolic blood pressure 212 mm[Hg] Kateryna Anguiano DO Work Phone: [employer] 09-06-2023 13:47-0400 Body mass index (BMI) [Ratio] 22.5 kg/m2 Kateryna Anguiano DO Work Phone: [employer] 09-06-2023 13:47-0400 Body temperature 98.4 [degF] Kateryna Anguiano DO Work Phone: [facility] [email or web address] 09-06-2023 13:47-0400 Body weight 67.13 kg Kateryna Anguiano DO Work Phone: [facility] [email or web address] 09-06-2023 13:47-0400 Heart rate 86 /min Kateryna Anguiano DO Work Phone: [facility] [email or web address] 09-06-2023 13:47-0400 Respiratory rate 16 /min Kateryna Anguiano DO Work Phone: [facility] [email or web address] 08-08-2023 10:11-0500 Body height 172.72 cm DO Jalyn Schwerer Work Phone: [facility] 08-08-2023 10:11-0500 Body mass index (BMI) [Ratio] 24.2 kg/m2 DO Jalyn Schwerer Work Phone: [facility] 08-08-2023 10:11-0500 Body temperature 97.9 [degF] DO Jalyn Schwerer Work Phone: [facility] 08-08-2023 10:11-0500 Body weight 72.34 kg DO Jalyn Schwerer Work Phone: [facility] 08-08-2023 10:11-0500 Diastolic blood pressure 80 mm[Hg] DO Jalyn Schwerer Work Phone: [facility] 08-08-2023 10:11-0500 Heart rate 89 /min DO Jalyn Schwerer Work Phone: [facility] 08-08-2023 10:11-0500 Respiratory rate 16 /min DO Jalyn Schwerer Work Phone: [facility] 08-08-2023 10:11-0500 SaO2% (BldA) [Mass fraction] 99 % DO Jalyn Schwerer Work Phone: [facility] 08-08-2023 10:11-0500 Systolic blood pressure 110 mm[Hg] DO Jalyn Schwerer Work Phone: [facility] 07-09-2023 10:00-0500 Diastolic blood pressure 88 mm[Hg] DO Jalyn Schwerer Work Phone: [facility] 07-09-2023 10:00-0500 Heart rate 81 /min DO Jalyn Schwerer Work Phone: [facility] 07-09-2023 10:00-0500 Respiratory rate 16 /min DO Jalyn Schwerer Work Phone: [facility] 07-09-2023 10:00-0500 SaO2% (BldA) [Mass fraction] 95 % DO Jalyn Schwerer Work Phone: [facility] 07-09-2023 10:00-0500 Systolic blood pressure 141 mm[Hg] DO Jalyn Schwerer Work Phone: [facility] 07-09-2023 09:15-0500 Inhaled oxygen flow rate 6 L/min DO Jalyn Schwerer Work Phone: [facility] 07-09-2023 08:58-0500 Body height 172.72 cm DO Jalyn Schwerer Work Phone: [facility] 07-09-2023 08:58-0500 Body mass index (BMI) [Ratio] 23.6 kg/m2 DO Jalyn Schwerer Work Phone: [facility] 07-09-2023 08:58-0500 Body weight 70.3 kg DO Jalyn Schwerer Work Phone: [facility] 07-09-2023 06:35-0500 Body temperature 98.3 [degF] DO Jalyn Schwerer Work Phone: [facility] 07-07-2023 09:45-0500 Body height 172.72 cm Poly Morgan Other [facility] 07-07-2023 09:45-0500 Body mass index (BMI) [Ratio] 24.02 kg/m2 Poly Morgan Other [facility] [employer] Other 07-07-2023 09:45-0500 Body temperature 97.8 [degF] Poly Morgan Other [facility] [employer] Other 07-07-2023 09:45-0500 Body weight 71.67 kg Poly Morgan Other [facility] [employer] Other 07-07-2023 09:45-0500 Body weight 71.66 kg DO Jalyn Schwerer Work Phone: [facility] 07-07-2023 09:45-0500 Diastolic blood pressure 86 mm[Hg] Poly Morgan Other [facility] 07-07-2023 09:45-0500 SaO2% (BldA) [Mass fraction] 96 % Poly Morgan Other [facility] [employer] Other 07-07-2023 09:45-0500 Systolic blood pressure 132 mm[Hg] Poly Morgan Other [facility] 06-22-2023 15:27-0500 Diastolic blood pressure 105 mm[Hg] DO Jalyn Schwerer Work Phone: [facility] 06-22-2023 15:27-0500 Heart rate 71 /min DO Jalyn Schwerer Work Phone: [facility] 06-22-2023 15:27-0500 Respiratory rate 16 /min DO Jalyn Schwerer Work Phone: [facility] 06-22-2023 15:27-0500 SaO2% (BldA) [Mass fraction] 96 % DO Jalyn Schwerer Work Phone: [facility] 06-22-2023 15:27-0500 Systolic blood pressure 163 mm[Hg] DO Jalyn Schwerer Work Phone: [facility] 06-22-2023 14:00-0500 Body height 172.72 cm DO Jalyn Schwerer Work Phone: [facility] 06-22-2023 14:00-0500 Body mass index (BMI) [Ratio] 24.3 kg/m2 DO Jalyn Schwerer Work Phone: [facility] 06-22-2023 14:00-0500 Body weight 72.57 kg DO Jalyn Schwerer Work Phone: [facility] 06-22-2023 12:24-0500 Body temperature 98.5 [degF] DO Jalyn Schwerer Work Phone: [facility] 06-17-2023 13:00-0500 Body mass index (BMI) [Ratio] 24.16 kg/m2 Tondra Mapus Other [facility] [employer] Other 06-17-2023 13:00-0500 Body weight 72.08 kg Tondra Mapus Other [facility] [employer] Other 06-17-2023 13:00-0500 Body weight 72.07 kg DO Jalyn Schwerer Work Phone: [facility] 06-17-2023 13:00-0500 Diastolic blood pressure 116 mm[Hg] Tondra Mapus Other [facility] 06-17-2023 13:00-0500 SaO2% (BldA) [Mass fraction] 98 % Tondra Mapus Other [employer] Other 06-17-2023 13:00-0500 Systolic blood pressure 164 mm[Hg] Tondra Mapus Other [facility] 06-17-2023 11:30-0500 Body height 172.72 cm Jalyn Schwerer Other [facility] 06-17-2023 11:30-0500 Body mass index (BMI) [Ratio] 24.23 kg/m2 Jalyn Schwerer Other [employer] Other 06-17-2023 11:30-0500 Body weight 72.3 kg Jalyn Schwerer Other [employer] Other 06-17-2023 11:30-0500 Diastolic blood pressure 110 mm[Hg] Jalyn Schwerer Other [employer] Other 06-17-2023 11:30-0500 Respiratory rate 18 /min Jalyn Schwerer Other [employer] Other 06-17-2023 11:30-0500 SaO2% (BldA) [Mass fraction] 87 % Jalyn Schwerer Other [employer] Other 06-17-2023 11:30-0500 Systolic blood pressure 140 mm[Hg] Jalyn Schwerer Other [employer] Other 05-21-2023 11:00-0500 Body height 172.72 cm Jalyn Schwerer Other [facility] 05-21-2023 11:00-0500 Body mass index (BMI) [Ratio] 24.64 kg/m2 Jalyn Schwerer Other [employer] Other 05-21-2023 11:00-0500 Body temperature 98.9 [degF] Jalyn Schwerer Other [facility] [employer] Other 05-21-2023 11:00-0500 Body weight 73.53 kg Jalyn Schwerer Other [facility] [employer] Other 05-21-2023 11:00-0500 Body weight 73.52 kg DO Jalyn Schwerer Work Phone: [facility] 05-21-2023 11:00-0500 Diastolic blood pressure 130 mm[Hg] Jalyn Schwerer Other [facility] 05-21-2023 11:00-0500 SaO2% (BldA) [Mass fraction] 98 % Jalyn Schwerer Other [facility] [employer] Other 05-21-2023 11:00-0500 Systolic blood pressure 210 mm[Hg] Jalyn Schwerer Other [facility] 05-20-2023 12:00-0500 Diastolic blood pressure 115 mm[Hg] DO Max Pavlock Work Phone: [facility] 05-20-2023 12:00-0500 Heart rate 85 /min DO Max Pavlock Work Phone: [facility] 05-20-2023 12:00-0500 SaO2% (BldA) [Mass fraction] 98 % DO Max Pavlock Work Phone: [facility] 05-20-2023 12:00-0500 Systolic blood pressure 208 mm[Hg] DO Max Pavlock Work Phone: [facility] 05-20-2023 10:58-0500 Respiratory rate 16 /min DO Max Pavlock Work Phone: [facility] 05-20-2023 09:22-0500 Body temperature 98.9 [degF] DO Max Pavlock Work Phone: [facility] 05-20-2023 09:16-0500 Body height 172.72 cm DO Max Pavlock Work Phone: [facility] 05-20-2023 09:16-0500 Body weight 72.8 kg DO Max Pavlock Work Phone: [facility] 05-19-2023 14:14-0500 Diastolic blood pressure 119 mm[Hg] DO Max Pavlock Work Phone: [facility] 05-19-2023 14:14-0500 Heart rate 95 /min DO Max Pavlock Work Phone: [facility] 05-19-2023 14:14-0500 Respiratory rate 18 /min DO Max Pavlock Work Phone: [facility] 05-19-2023 14:14-0500 SaO2% (BldA) [Mass fraction] 96 % DO Max Pavlock Work Phone: [facility] 05-19-2023 14:14-0500 Systolic blood pressure 195 mm[Hg] DO Max Pavlock Work Phone: [facility] 05-19-2023 12:32-0500 Body height 172.72 cm DO Max Pavlock Work Phone: [facility] 05-19-2023 12:32-0500 Body temperature 98.9 [degF] DO Max Pavlock Work Phone: [facility] 05-19-2023 12:32-0500 Body weight 73.5 kg DO Max Pavlock Work Phone: [facility] 05-13-2023 15:42-0500 Diastolic blood pressure 98 mm[Hg] DO Max Pavlock Work Phone: [facility] 05-13-2023 15:42-0500 Heart rate 82 /min DO Max Pavlock Work Phone: [facility] 05-13-2023 15:42-0500 Respiratory rate 16 /min DO Max Pavlock Work Phone: [facility] 05-13-2023 15:42-0500 SaO2% (BldA) [Mass fraction] 98 % DO Max Pavlock Work Phone: [facility] 05-13-2023 15:42-0500 Systolic blood pressure 171 mm[Hg] DO Max Pavlock Work Phone: [facility] 05-13-2023 10:48-0500 Body height 172.72 cm DO Max Pavlock Work Phone: [facility] 05-13-2023 10:48-0500 Body temperature 98.8 [degF] DO Max Pavlock Work Phone: [facility] 05-13-2023 10:48-0500 Body weight 73.3 kg DO Max Pavlock Work Phone: [facility] 03-19-2023 09:00-0400 Body height 172.72 cm Jalyn Augustmelonie Other [employer] Other 03-19-2023 09:00-0400 Body mass index (BMI) [Ratio] 23.23 kg/m2 Jalyn Schwerer Other [employer] Other 03-19-2023 09:00-0400 Body weight 69.31 kg Jalyn Schwerer Other [employer] Other 03-19-2023 09:00-0400 Diastolic blood pressure 122 mm[Hg] Jalyn Schwerer Other [employer] Other 03-19-2023 09:00-0400 Respiratory rate 18 /min Jalyn Schwerer Other [employer] Other 03-19-2023 09:00-0400 SaO2% (BldA) [Mass fraction] 98 % Jalyn Schwerer Other [employer] Other 03-19-2023 09:00-0400 Systolic blood pressure 168 mm[Hg] Jalyn Schwerer Other [employer] Other 03-01-2023 10:15-0400 Body height 172.72 cm Tondra Mapus Other [employer] Other 03-01-2023 10:15-0400 Body mass index (BMI) [Ratio] 23.46 kg/m2 Tondra Mapus Other [employer] Other 03-01-2023 10:15-0400 Body weight 69.99 kg Tondra Mapus Other [employer] Other 03-01-2023 10:15-0400 Diastolic blood pressure 120 mm[Hg] Tondra Mapus Other [employer] Other 03-01-2023 10:15-0400 Respiratory rate 18 /min Tondra Mapus Other [employer] Other 03-01-2023 10:15-0400 SaO2% (BldA) [Mass fraction] 100 % Tondra Mapus Other [employer] Other 03-01-2023 10:15-0400 Systolic blood pressure 170 mm[Hg] Tondra Mapus Other [employer] Other 2023 12:00-0400 Body height 172.72 cm Jalyn Schwerer Other [employer] Other 2023 12:00-0400 Body mass index (BMI) [Ratio] 22.71 kg/m2 Jalyn Schwerer Other [employer] Other 2023 12:00-0400 Body weight 67.77 kg Jalyn Schwerer Other [employer] Other 2023 12:00-0400 Diastolic blood pressure 82 mm[Hg] Jalyn Schwerer Other [employer] Other 2023 12:00-0400 Respiratory rate 18 /min Jalyn Schwerer Other [employer] Other 2023 12:00-0400 SaO2% (BldA) [Mass fraction] 98 % Jalyn Schwerer Other [employer] Other 2023 12:00-0400 Systolic blood pressure 142 mm[Hg] Jalyn Schwerer Other [employer] Other 01-18-2023 10:00-0400 Body height 172.72 cm Joedra Mapus Other [employer] Other 01-18-2023 10:00-0400 Body mass index (BMI) [Ratio] 23.08 kg/m2 Tondra Mapus Other [employer] Other 01-18-2023 10:00-0400 Body weight 68.86 kg Rudy Rm Other [facility] [employer] Other 01-15-2023 14:04-0400 Diastolic blood pressure 97 mm[Hg] DO Jalyn Schwerer Work Phone: [facility] 01-15-2023 14:04-0400 Heart rate 74 /min DO Jalyn Schwerer Work Phone: [facility] 01-15-2023 14:04-0400 Respiratory rate 20 /min DO Jalyn Schwerer Work Phone: [facility] 01-15-2023 14:04-0400 SaO2% (BldA) [Mass fraction] 98 % DO Jalyn Schwerer Work Phone: [facility] 01-15-2023 14:04-0400 Systolic blood pressure 174 mm[Hg] DO Jalyn Schwerer Work Phone: [facility] 01-15-2023 10:31-0400 Body temperature 98.1 [degF] DO Jalyn Schwerer Work Phone: [facility] 12-04-2022 22:52-0400 Body temperature 98.2 [degF] Chuck Lowe MD [facility] [employer] 12-04-2022 22:52-0400 Heart rate 86 /min Chuck Lowe MD [facility] [employer] 12-04-2022 22:52-0400 Respiratory rate 16 /min Chuck Lowe MD [facility] [employer] 12-04-2022 21:30-0400 Diastolic blood pressure 109 mm[Hg] Chuck BARNETT [employer] 12-04-2022 21:30-0400 SaO2% (BldA) [Mass fraction] 96 % Chuck BARNETT [employer] 12-04-2022 21:30-0400 Systolic blood pressure 196 mm[Hg] Chuck BARNETT [employer] 11-19-2022 14:56-0400 Diastolic blood pressure 78 mm[Hg] Jalyn Schwerer DO Work Phone: [facility] [employer] 11-19-2022 14:56-0400 Heart rate 80 /min Jalyn Schwerer DO Work Phone: [facility] [employer] 11-19-2022 14:56-0400 Respiratory rate 16 /min Jalyn Schwerer DO Work Phone: [facility] [employer] 11-19-2022 14:56-0400 SaO2% (BldA) [Mass fraction] 97 % Jalyn Schwerer DO Work Phone: [facility] [employer] 11-19-2022 14:56-0400 Systolic blood pressure 155 mm[Hg] Jalyn Schwerer DO Work Phone: [facility] [employer] 11-19-2022 12:55-0400 Body height 172.7 cm Jalyn Schwerer DO Work Phone: [facility] [employer] 11-19-2022 12:55-0400 Body mass index (BMI) [Ratio] 22.81 kg/m2 Jalyn Schwerer DO Work Phone: [facility] [employer] 11-19-2022 12:55-0400 Body weight 68.04 kg Jalyn Schwerer DO Work Phone: [facility] [employer] 11-19-2022 10:11-0400 Body temperature 98.4 [degF] Jalyn Schwerer DO Work Phone: [employer] 10-02-2022 10:00-0400 Body height 172.72 cm Jalyncheyanne Yaneserer Other [employer] Other 10-02-2022 10:00-0400 Body mass index (BMI) [Ratio] 23.5 kg/m2 Jalyn Schwerer Other [employer] Other 10-02-2022 10:00-0400 Body temperature 97.5 [degF] Jalyn Schwerer Other [employer] Other 10-02-2022 10:00-0400 Body weight 70.13 kg Jalyn Schwerer Other [employer] Other 10-02-2022 10:00-0400 Diastolic blood pressure 76 mm[Hg] Jalyn Schwerer Other [facility] Other 10-02-2022 10:00-0400 SaO2% (BldA) [Mass fraction] 99 % Jalyn Schwerer Other [facility] Other 10-02-2022 10:00-0400 Systolic blood pressure 118 mm[Hg] Jalyn Schwerer Other [facility] Other 08-29-2022 23:00-0400 Diastolic blood pressure 100 mm[Hg] Adelina Gase Other Phone: [facility] 08-29-2022 23:00-0400 Heart rate 64 /min Adelina Gase Other Phone: [facility] 08-29-2022 23:00-0400 Respiratory rate 16 /min Adelina Gase Other Phone: [facility] 08-29-2022 23:00-0400 SaO2% (BldA) [Mass fraction] 99 % Adelina Gase Other Phone: [facility] 08-29-2022 23:00-0400 Systolic blood pressure 177 mm[Hg] Adelina Gase Other Phone: [facility] 08-29-2022 16:41-0400 Body height 172.7 cm Adelina Gase Other Phone: [facility] 08-29-2022 16:41-0400 Body temperature 98.24 [degF] Adelina Amador Other Phone: [facility] 08-29-2022 16:41-0400 Body weight 68.2 kg Adelina Amador Other Phone: [facility] 08-27-2022 20:38-0400 Diastolic blood pressure 126 mm[Hg] Jalyn Schwerer DO Work Phone: [employer] 08-27-2022 20:38-0400 Heart rate 85 /min Jalyn Schwerer DO Work Phone: [employer] 08-27-2022 20:38-0400 Respiratory rate 16 /min Jalyn Schwerer DO Work Phone: [employer] 08-27-2022 20:38-0400 SaO2% (BldA) [Mass fraction] 96 % Jalyn Schwerer DO Work Phone: [employer] 08-27-2022 20:38-0400 Systolic blood pressure 198 mm[Hg] Jalyn Schwerer DO Work Phone: [employer] 08-27-2022 18:36-0400 Body height 172.7 cm Jalyn Schwerer DO Work Phone: [employer] 08-27-2022 18:36-0400 Body mass index (BMI) [Ratio] 22.81 kg/m2 Jalyn Schwerer DO Work Phone: [employer] 08-27-2022 18:36-0400 Body temperature 99.5 [degF] Jalyn Schwerer DO Work Phone: [employer] 08-27-2022 18:36-0400 Body weight 68.04 kg Jalyn Schwerer DO Work Phone: [employer] 08-18-2022 17:30-0400 Body height 172.72 cm Jalyn Schwerer Other [facility] Other 08-18-2022 17:30-0400 Body mass index (BMI) [Ratio] 23.38 kg/m2 Jalyn Schwerer Other [facility] Other 08-18-2022 17:30-0400 Body weight 69.76 kg Jalyn Schwerer Other [facility] Other 08-18-2022 17:30-0400 Diastolic blood pressure 92 mm[Hg] Jalyn Schwerer Other [facility] Other 08-18-2022 17:30-0400 Respiratory rate 18 /min Jalyn Schwerer Other [facility] Other 08-18-2022 17:30-0400 SaO2% (BldA) [Mass fraction] 99 % Jalyn Schwerer Other [facility] Other 08-18-2022 17:30-0400 Systolic blood pressure 142 mm[Hg] Jalyn Schwerer Other [facility] Other 07-31-2022 11:30-0500 Body height 172.72 cm Jalyn Schwerer Other [facility] Other 07-31-2022 11:30-0500 Body mass index (BMI) [Ratio] 23.44 kg/m2 Jalyn Schwerer Other [facility] Other 07-31-2022 11:30-0500 Body weight 69.95 kg Jalyn Schwerer Other [facility] Other 07-31-2022 11:30-0500 Diastolic blood pressure 94 mm[Hg] Jalyn Schwerer Other [facility] 07-31-2022 11:30-0500 Respiratory rate 18 /min Jalyn Schwerer Other [facility] 07-31-2022 11:30-0500 SaO2% (BldA) [Mass fraction] 99 % Jalyn Schwerer Other [facility] 07-31-2022 11:30-0500 Systolic blood pressure 128 mm[Hg] Jalyn Schwerer Other [facility] 07-22-2022 11:15-0500 Body height 172.72 cm Tondra Mapus Other [facility] Other 07-22-2022 11:15-0500 Body mass index (BMI) [Ratio] 23.19 kg/m2 Tondra Mapus Other [facility] Other 07-22-2022 11:15-0500 Body weight 69.17 kg Tondra Mapus Other [facility] Other 07-22-2022 11:15-0500 Diastolic blood pressure 106 mm[Hg] Tondra Mapus Other [facility] Other 07-22-2022 11:15-0500 Respiratory rate 18 /min Tondra Mapus Other [facility] Other 07-22-2022 11:15-0500 SaO2% (BldA) [Mass fraction] 99 % Tondra Mapus Other [facility] Other 07-22-2022 11:15-0500 Systolic blood pressure 160 mm[Hg] Tondra Mapus Other [facility] Other 07-10-2022 15:00-0500 Diastolic blood pressure 98 mm[Hg] DO Max Pavlock Work Phone: [facility] 07-10-2022 15:00-0500 Heart rate 60 /min DO Max Pavlock Work Phone: [facility] 07-10-2022 15:00-0500 Respiratory rate 16 /min DO Max Pavlock Work Phone: [facility] 07-10-2022 15:00-0500 SaO2% (BldA) [Mass fraction] 100 % DO Max Pavlock Work Phone: [facility] 07-10-2022 15:00-0500 Systolic blood pressure 165 mm[Hg] DO Max Pavlock Work Phone: [facility] 07-10-2022 11:30-0500 Body height 172.72 cm Jalyn Augusteremerrill Other [facility] Other 07-10-2022 11:30-0500 Body mass index (BMI) [Ratio] 23.17 kg/m2 Jalyn Schwerer Other [facility] Other 07-10-2022 11:30-0500 Body weight 69.13 kg Jalyn Schwerer Other [facility] Other 07-10-2022 11:30-0500 Diastolic blood pressure 72 mm[Hg] Jalyn Schwerer Other [facility] Other 07-10-2022 11:30-0500 Respiratory rate 18 /min Jalyn Holt Other [facility] Other 07-10-2022 11:30-0500 SaO2% (BldA) [Mass fraction] 97 % Jalyn Holt Other [facility] Other 07-10-2022 11:30-0500 Systolic blood pressure 120 mm[Hg] Jalyn Holt Other [facility] Other 07-10-2022 11:22-0500 Body temperature 98.4 [degF] DO Max Pavlock Work Phone: [facility] 07-10-2022 11:08-0500 Body height 172.72 cm DO Max Pavlock Work Phone: [facility] 07-10-2022 11:08-0500 Body weight 69.85 kg DO Max Pavlock Work Phone: [facility] 07-08-2022 16:20-0500 Body height 172.72 cm Angela Davonioana Other [facility] Other 07-08-2022 16:20-0500 Body mass index (BMI) [Ratio] 23.72 kg/m2 Angela [employer] Other [facility] Other 07-08-2022 16:20-0500 Body temperature 98.4 [degF] Angela [employer]akers Alley[employer]ana Other [facility] Other 07-08-2022 16:20-0500 Body weight 70.76 kg Gilbertorafael [employer] Other [facility] Other 07-08-2022 16:20-0500 Diastolic blood pressure 128 mm[Hg] Angela Valentine Other [facility] Other 07-08-2022 16:20-0500 Respiratory rate 18 /min Angela Valentine Other [facility] Other 07-08-2022 16:20-0500 SaO2% (BldA) [Mass fraction] 97 % Angela Valentine Other [facility] Other 07-08-2022 16:20-0500 Systolic blood pressure 196 mm[Hg] Angela Valentine Other [facility] Other 06-15-2022 10:30-0500 Body height 172.72 cm Edie Stuart Other [facility] Other 06-15-2022 10:30-0500 Body mass index (BMI) [Ratio] 22.8 kg/m2 Edie Rodriguezmond Other [facility] Other 06-15-2022 10:30-0500 Body temperature 98.7 [degF] Edie Stuart Other [facility] Other 06-15-2022 10:30-0500 Body weight 68.04 kg Edie Rodriguezmond Other [facility] Other 06-15-2022 10:30-0500 Diastolic blood pressure 89 mm[Hg] Edie Sade Other [facility] Other 06-15-2022 10:30-0500 Respiratory rate 18 /min Edie Rodriguezmond Other [facility] Other 06-15-2022 10:30-0500 SaO2% (BldA) [Mass fraction] 100 % Edie Stuart Other [facility] Other 06-15-2022 10:30-0500 Systolic blood pressure 151 mm[Hg] Edie Stuart Other [facility] Other 06-02-2022 13:08-0500 Body height 172.7 cm Fern Stanislav EDWARDSN.ASSISTED LIVING NURSING DIRECTOR Work Phone: [facility] 06-02-2022 13:08-0500 Body weight 66.22 kg Fernmadhavi Jaimeskyra KRAFT.ASSISTED LIVING NURSING DIRECTOR Work Phone: [facility] 05-31-2022 21:22-0500 Diastolic blood pressure 95 mm[Hg] Kamryn Bahman DO Work Phone: [employer] 05-31-2022 21:22-0500 Heart rate 63 /min Kamryn Bahman DO Work Phone: [employer] 05-31-2022 21:22-0500 Respiratory rate 16 /min Kamryn Bahman DO Work Phone: [employer] 05-31-2022 21:22-0500 SaO2% (BldA) [Mass fraction] 98 % Kamryn Bahman DO Work Phone: [employer] 05-31-2022 21:22-0500 Systolic blood pressure 168 mm[Hg] Kamryn Bahman DO Work Phone: [employer] 05-31-2022 16:52-0500 Body temperature 98.01 [degF] Kamryn Bahman DO Work Phone: [employer] 05-28-2022 14:00-0500 Diastolic blood pressure 81 mm[Hg] Kian Woodson MD Work Phone: [employer] 05-28-2022 14:00-0500 SaO2% (BldA) [Mass fraction] 97 % Kian Woodson MD [facility] 05-28-2022 14:00-0500 Systolic blood pressure 126 mm[Hg] Kian Woodson MD Work Phone: [facility] 05-28-2022 12:45-0500 Heart rate 69 /min Kian Woodson MD Work Phone[facility] 05-28-2022 11:51-0500 Respiratory rate 16 /min Kian Woodson MD Work Phone[facility] [employer] 05-28-2022 08:50-0500 Body height 172.7 cm Kian Woodson MD Work Phone: [facility] 05-28-2022 08:50-0500 Body mass index (BMI) [Ratio] 22.05 kg/m2 Kian Woodson MD Work Phone: [facility] 05-28-2022 08:50-0500 Body temperature 97.81 [degF] Kian Woodson MD Work Phone: [facility] 05-28-2022 08:50-0500 Body weight 65.77 kg Kian Woodson MD Work Phone: [facility] 05-13-2022 09:43-0500 Body height 174 cm Fern [place] APRN.ASSISTED LIVING NURSING DIRECTOR Work Phone: [facility] 05-13-2022 09:43-0500 Body weight 71.58 kg Fern [place] APRN.ASSISTED LIVING NURSING DIRECTOR Work Phone: [facility] 05-13-2022 07:48-0500 Body height 174 cm Pacc 5 Work Phone: [facility] 05-13-2022 07:48-0500 Body temperature 97.5 [degF] Pac 5 Work Phone: [facility] 05-13-2022 07:48-0500 Body weight 71.44 kg Pac 5 Work Phone: [facility] 05-13-2022 07:48-0500 Diastolic blood pressure 80 mm[Hg] Pac 5 Work Phone: [facility] 05-13-2022 07:48-0500 Heart rate 82 /min Pac 5 Work Phone: [facility] 05-13-2022 07:48-0500 SaO2% (BldA) [Mass fraction] 98 % Pac 5 Work Phone: [facility] 05-13-2022 07:48-0500 Systolic blood pressure 119 mm[Hg] Pac 5 Work Phone: [facility] 04-14-2022 11:15-0500 Body height 172.72 cm Tondra Mapus Other [facility] Other 04-14-2022 11:15-0500 Body mass index (BMI) [Ratio] 24.78 kg/m2 Tondra Mapus Other [facility] 04-14-2022 11:15-0500 Body weight 73.94 kg Tondra Mapus Other [facility] Other 04-14-2022 11:15-0500 Diastolic blood pressure 112 mm[Hg] Tondra Mapus Other [facility] Other 04-14-2022 11:15-0500 Respiratory rate 20 /min Tondra Mapus Other [facility] Other 04-14-2022 11:15-0500 SaO2% (BldA) [Mass fraction] 99 % Tondra Mapus Other [facility] Other 04-14-2022 11:15-0500 Systolic blood pressure 171 mm[Hg] Rudy Rm Other [facility] Other 04-13-2022 14:15-0500 Diastolic blood pressure 106 mm[Hg] Mynor Kirk MD Work Phone: [employer] 04-13-2022 14:15-0500 Heart rate 62 /min Mynor Kirk MD Work Phone: [employer] 04-13-2022 14:15-0500 Respiratory rate 21 /min Mynor Kirk MD Work Phone: [employer] 04-13-2022 14:15-0500 SaO2% (BldA) [Mass fraction] 97 % Mynor Kirk MD Work Phone: [employer] 04-13-2022 14:15-0500 Systolic blood pressure 149 mm[Hg] Mynor Kirk MD Work Phone: [employer] 04-13-2022 10:01-0500 Body mass index (BMI) [Ratio] 22.81 kg/m2 Mynor Kirk MD Work Phone: [employer] 04-13-2022 10:01-0500 Body temperature 98.4 [degF] Mynor Kirk MD Work Phone: [employer] 04-13-2022 10:01-0500 Body weight 68.04 kg Mynor Kirk MD Work Phone: [employer] 03-31-2022 09:00-0400 Body height 172.72 cm Jalyn Holt Other [facility] Other 03-31-2022 09:00-0400 Diastolic blood pressure 82 mm[Hg] Jalyn Holt Other [facility] Other 03-31-2022 09:00-0400 Respiratory rate 18 /min Jalyn Fraserr Other [facility] Other 03-31-2022 09:00-0400 SaO2% (BldA) [Mass fraction] 99 % Jalyn Yaneserer Other [facility] Other 03-31-2022 09:00-0400 Systolic blood pressure 162 mm[Hg] Jalyn Yaneserer Other [facility] 03-23-2022 18:48-0400 Body temperature 97.59 [degF] Kamryn Bahman DO Work Phone: [employer] 03-23-2022 18:48-0400 Diastolic blood pressure 94 mm[Hg] Kamryn Bahman DO Work Phone: [employer] 03-23-2022 18:48-0400 Heart rate 74 /min Kamryn Bahman DO Work Phone: [employer] 03-23-2022 18:48-0400 Respiratory rate 15 /min Kamryn Bahman DO Work Phone: [employer] 03-23-2022 18:48-0400 SaO2% (BldA) [Mass fraction] 100 % Kamryn Bahman DO Work Phone: [employer] 03-23-2022 18:48-0400 Systolic blood pressure 198 mm[Hg] Kamryn Bahman DO Work Phone: [employer] 03-18-2022 15:40-0400 Body height 172.72 cm Edie Stuart Other [facility] 03-18-2022 15:40-0400 Body mass index (BMI) [Ratio] 23.26 kg/m2 Edie Stuart Other [facility] 03-18-2022 15:40-0400 Body temperature 98.2 [degF] Edie Stuart Other [facility] 03-18-2022 15:40-0400 Body weight 69.4 kg Edie Stuart Other [facility] Other 03-18-2022 15:40-0400 Diastolic blood pressure 122 mm[Hg] Edie Stuart Other [facility] 03-18-2022 15:40-0400 Respiratory rate 18 /min Edie Stuart Other [facility] 03-18-2022 15:40-0400 SaO2% (BldA) [Mass fraction] 98 % Edie Stuart Other [facility] 03-18-2022 15:40-0400 Systolic blood pressure 184 mm[Hg] Edie Stuart Other [facility] 02-27-2022 12:38-0400 Diastolic blood pressure 109 mm[Hg] DO Max Pavlock Work Phone: [facility] 02-27-2022 12:38-0400 Heart rate 87 /min DO Max Pavlock Work Phone: [facility] 02-27-2022 12:38-0400 Respiratory rate 18 /min DO Max Pavlock Work Phone: [facility] 02-27-2022 12:38-0400 SaO2% (BldA) [Mass fraction] 97 % DO Max Pavlock Work Phone: [facility] 02-27-2022 12:38-0400 Systolic blood pressure 201 mm[Hg] DO Max Pavlock Work Phone: [facility] 02-27-2022 10:31-0400 Body height 172.72 cm DO Max Pavlock Work Phone: [facility] 02-27-2022 10:31-0400 Body temperature 98.5 [degF] DO Max Pavlock Work Phone: [facility] 02-27-2022 10:31-0400 Body weight 70.3 kg DO Max Pavlock Work Phone: [facility] 02-20-2022 10:00-0400 Body temperature 98.5 [degF] DO Max Pavlock Work Phone: [facility] 02-20-2022 10:00-0400 Diastolic blood pressure 83 mm[Hg] DO Max Pavlock Work Phone: [facility] 02-20-2022 10:00-0400 Heart rate 58 /min DO Max Pavlock Work Phone: [facility] 02-20-2022 10:00-0400 Respiratory rate 16 /min DO Max Pavlock Work Phone: [facility] 02-20-2022 10:00-0400 SaO2% (BldA) [Mass fraction] 96 % DO Max Pavlock Work Phone: [facility] 02-20-2022 10:00-0400 Systolic blood pressure 159 mm[Hg] DO Max Pavlock Work Phone: [facility] 02-20-2022 07:20-0400 Body height 172.72 cm DO Max Pavlock Work Phone: [facility] 02-20-2022 07:20-0400 Body weight 70.96 kg DO Max Pavlock Work Phone: [facility] 01-19-2022 09:30-0400 Body height 172.72 cm Jalyn Schwerer Other [facility] 01-19-2022 09:30-0400 Body mass index (BMI) [Ratio] 22.55 kg/m2 Jalyn Schwerer Other [facility] 01-19-2022 09:30-0400 Body weight 67.27 kg Jalyn Schwerer Other [facility] 01-19-2022 09:30-0400 Diastolic blood pressure 78 mm[Hg] Jalyn Schwerer Other [facility] 01-19-2022 09:30-0400 Respiratory rate 18 /min Jalyn Schwerer Other [facility] 01-19-2022 09:30-0400 SaO2% (BldA) [Mass fraction] 100 % Jalyn Schwerer Other [facility] 01-19-2022 09:30-0400 Systolic blood pressure 122 mm[Hg] Jalyn Schwerer Other [facility] 01-05-2022 15:06-0400 Body height 172.7 cm [facility] 01-05-2022 15:06-0400 Body weight 65.32 kg [facility] 01-05-2022 15:06-0400 Respiratory rate 18 /min [facility] 01-01-2022 12:00-0400 Body height 172.72 cm Tondra Mapus Other [facility] 01-01-2022 12:00-0400 Body mass index (BMI) [Ratio] 21.94 kg/m2 Tondra Mapus Other [facility] 01-01-2022 12:00-0400 Body weight 65.45 kg Tondra Mapus Other [facility] 01-01-2022 12:00-0400 Diastolic blood pressure 92 mm[Hg] Tondra Mapus Other [facility] 01-01-2022 12:00-0400 Respiratory rate 18 /min Tondra Mapus Other [facility] 01-01-2022 12:00-0400 SaO2% (BldA) [Mass fraction] 98 % Tondra Mapus Other [facility] 01-01-2022 12:00-0400 Systolic blood pressure 170 mm[Hg] Tondra Mapus Other [facility] Other 11-20-2021 09:45-0400 Body height 172.72 cm Jalyn Holt Other [facility] Other 11-20-2021 09:45-0400 Body mass index (BMI) [Ratio] 23.47 kg/m2 Jalyn Schwerer Other [facility] 11-20-2021 09:45-0400 Body temperature 98.2 [degF] Jalyn Schwerer Other [facility] 11-20-2021 09:45-0400 Body weight 70.04 kg Jalyncheyanne Yaneserer Other [facility] Other 11-20-2021 09:45-0400 Diastolic blood pressure 115 mm[Hg] Jalyn Schwerer Other [facility] 11-20-2021 09:45-0400 Respiratory rate 18 /min Jalyn Schwerer Other [facility] 11-20-2021 09:45-0400 SaO2% (BldA) [Mass fraction] 98 % Jalyn Schwerer Other [facility] 11-20-2021 09:45-0400 Systolic blood pressure 195 mm[Hg] Jalyn Schwerer Other [facility] Other 09-24-2021 13:44-0400 Blood Pressure Location [employer] [facility] [employer] 09-24-2021 13:44-0400 Diastolic blood pressure 125 mm[Hg] [employer] [facility] [employer] 09-24-2021 13:44-0400 Heart rate 65 /min [employer]sh[employer] [facility] [employer] 09-24-2021 13:44-0400 Respiratory rate 16 /min [employer]shan [employer] [facility] [employer] 09-24-2021 13:44-0400 Systolic blood pressure 185 mm[Hg] [employer] [facility] [employer] 09-23-2021 09:45-0400 Body height 172.72 cm Tondra Mapus Other [facility] Other 09-23-2021 09:45-0400 Body mass index (BMI) [Ratio] 22.5 kg/m2 Tondra Mapus Other [facility] Other 09-23-2021 09:45-0400 Body weight 67.13 kg Tondra Mapus Other [facility] Other 09-23-2021 09:45-0400 Diastolic blood pressure 74 mm[Hg] Tondra Mapus Other [facility] Other 09-23-2021 09:45-0400 Respiratory rate 20 /min Tondra Mapus Other [facility] 09-23-2021 09:45-0400 SaO2% (BldA) [Mass fraction] 97 % Tondra Mapus Other [facility] Other 09-23-2021 09:45-0400 Systolic blood pressure 103 mm[Hg] Tondra Mapus Other [facility] Other 08-27-2021 14:00-0400 Body height 172.72 cm Tondra Mapus Other [facility] Other 08-27-2021 14:00-0400 Body mass index (BMI) [Ratio] 23.57 kg/m2 Tondra Mapus Other [facility] Other 08-27-2021 14:00-0400 Body weight 70.31 kg Tondra Mapus Other [facility] Other 08-27-2021 14:00-0400 Diastolic blood pressure 126 mm[Hg] Tondra Mapus Other [facility] Other 08-27-2021 14:00-0400 Respiratory rate 20 /min Tondra Mapus Other [facility] Other 08-27-2021 14:00-0400 SaO2% (BldA) [Mass fraction] 97 % Tondra Mapus Other [facility] Other 08-27-2021 14:00-0400 Systolic blood pressure 186 mm[Hg] Tondra Mapus Other [facility] Other 07-21-2021 11:30-0500 Body height 172.72 cm Jalyn Schwerer Other [facility] Other 07-21-2021 11:30-0500 Body mass index (BMI) [Ratio] 24.4 kg/m2 Jalyn Schwerer Other [facility] Other 07-21-2021 11:30-0500 Body temperature 99.1 [degF] Jalyn Schwerer Other [facility] Other 07-21-2021 11:30-0500 Body weight 72.8 kg Jalyn Schwerer Other [facility] Other 07-21-2021 11:30-0500 Diastolic blood pressure 108 mm[Hg] Jalyn Schwerer Other [facility] Other 07-21-2021 11:30-0500 SaO2% (BldA) [Mass fraction] 98 % Jalyn Schwerer Other [facility] Other 07-21-2021 11:30-0500 Systolic blood pressure 168 mm[Hg] Jalyn Holt Other [facility] Other 07-03-2021 11:34-0500 Body temperature 97.2 [degF] Larry Galindo MD Work Phone: [employer] 07-03-2021 11:34-0500 Diastolic blood pressure 77 mm[Hg] Larry Galindo MD Work Phone: [employer] 07-03-2021 11:34-0500 Heart rate 67 /min Larry Galindo MD Work Phone: [employer] 07-03-2021 11:34-0500 Respiratory rate 18 /min Larry Galindo MD Work Phone: [employer] 07-03-2021 11:34-0500 SaO2% (BldA) [Mass fraction] 93 % Larry Galindo MD Work Phone: [employer] 07-03-2021 11:34-0500 Systolic blood pressure 126 mm[Hg] Larry Galindo MD Work Phone: [employer] 07-03-2021 05:00-0500 Body mass index (BMI) [Ratio] 25.32 kg/m2 Larry Galindo MD Work Phone: [employer] 07-03-2021 05:00-0500 Body weight 76.66 kg Larry Galindo MD Work Phone: [employer] 07-02-2021 10:02-0500 Body height 174 cm Larry Galindo MD Work Phone: [employer] 01-29-2021 20:30-0400 Diastolic blood pressure 98 mm[Hg] Kian Woodson MD Work Phone: [employer] Work Phone: 01-29-2021 20:30-0400 Heart rate 102 /min Kian Woodson MD Work Phone: [employer] Work Phone: 01-29-2021 20:30-0400 Respiratory rate 9 /min Kian Woodson MD Work Phone: [employer] Work Phone: 01-29-2021 20:30-0400 SaO2% (BldA) [Mass fraction] 94 % Kian Woodson MD Work Phone: [employer] Work Phone: 01-29-2021 20:30-0400 Systolic blood pressure 157 mm[Hg] Kian Woodson MD Work Phone: [employer] Work Phone: 01-27-2021 11:00-0400 Diastolic blood pressure 98 mm[Hg] Mecca Hale DO Work Phone: [employer] Work Phone: 01-27-2021 11:00-0400 SaO2% (BldA) [Mass fraction] 98 % Mecca Hale DO Work Phone: [employer] Work Phone: 01-27-2021 11:00-0400 Systolic blood pressure 152 mm[Hg] Mecca Hale DO Work Phone: [employer] Work Phone: 01-27-2021 08:02-0400 Body temperature 97.39 [degF] Mecca Hale DO Work Phone: [employer] Work Phone: 01-27-2021 06:15-0400 Heart rate 94 /min Mecca Hale DO Work Phone: [employer] Work Phone: 01-27-2021 06:15-0400 Respiratory rate 12 /min Mecca Hale DO Work Phone: [employer] Work Phone: 01-25-2021 20:14-0400 Heart rate 85 /min Max Trumaker Work Phone: 01-25-2021 20:14-0400 Respiratory rate 15 /min Max Trumaker Work Phone: 01-25-2021 20:14-0400 SaO2% (BldA) [Mass fraction] 97 % Max Trumaker Work Phone: 01-25-2021 20:00-0400 Diastolic blood pressure 69 mm[Hg] Max Trumaker Work Phone: 01-25-2021 20:00-0400 Systolic blood pressure 115 mm[Hg] Max Trumaker Work Phone: 01-25-2021 12:43-0400 Body temperature 97.9 [degF] Max Trumaker Work Phone: 12-07-2020 13:58-0400 Heart rate 80 /min Samir Vila MD Work Phone: [employer] Work Phone: 12-07-2020 13:58-0400 Respiratory rate 18 /min Samir Vila MD Work Phone: [employer] Work Phone: 12-07-2020 13:58-0400 SaO2% (BldA) [Mass fraction] 99 % Samir Vila MD Work Phone: [employer] Work Phone: 12-07-2020 12:30-0400 Diastolic blood pressure 96 mm[Hg] Samir Vila MD Work Phone: [employer] Work Phone: 12-07-2020 12:30-0400 Systolic blood pressure 130 mm[Hg] Samir Vila MD Work Phone: [employer] Work Phone: 12-07-2020 10:59-0400 Body temperature 97.2 [degF] Samir Vila MD Work Phone: [employer] Work Phone: 12-06-2020 23:51-0400 Body mass index (BMI) [Ratio] 22.81 kg/m2 Samir Vial MD Work Phone: [employer] Work Phone: 12-06-2020 23:51-0400 Body weight 68.04 kg Samir Vila MD Work Phone: [employer] Work Phone: 10-21-2020 12:20-0400 Body temperature 97.7 [degF] Britni Orlop DO Work Phone: [employer] Work Phone: 10-21-2020 12:20-0400 Diastolic blood pressure 81 mm[Hg] Britni Orlop DO Work Phone: [employer] Work Phone: 10-21-2020 12:20-0400 Heart rate 74 /min Britni Orlop DO Work Phone: [employer] Work Phone: 10-21-2020 12:20-0400 Respiratory rate 16 /min Britni Orlop DO Work Phone: [employer] Work Phone: 10-21-2020 12:20-0400 SaO2% (BldA) [Mass fraction] 98 % Britni Orlop DO Work Phone: [employer] Work Phone: 10-21-2020 12:20-0400 Systolic blood pressure 142 mm[Hg] Britni Orlop DO Work Phone: [employer] Work Phone: 10-21-2020 03:15-0400 Body mass index (BMI) [Ratio] 23.95 kg/m2 Britni Orlop DO Work Phone: [employer] Work Phone: 10-21-2020 03:15-0400 Body weight 71.44 kg Britni Hidalgolop DO Work Phone: [employer] Work Phone: 10-20-2020 23:35-0400 Body height 172.7 cm Britni Bolanosp DO Work Phone: [employer] Work Phone: 10-20-2020 21:45-0400 Diastolic blood pressure 77 mm[Hg] Max Trumaker Work Phone: 10-20-2020 21:45-0400 Heart rate 91 /min Max Trumaker Work Phone: 10-20-2020 21:45-0400 Respiratory rate 15 /min Max Trumaker Work Phone: 10-20-2020 21:45-0400 Systolic blood pressure 130 mm[Hg] Max Trumaker Work Phone: 10-20-2020 21:31-0400 SaO2% (BldA) [Mass fraction] 98 % Max Trumaker Work Phone: 10-20-2020 21:23-0400 Body mass index (BMI) [Ratio] 24.02 kg/m2 Max Trumaker Work Phone: 10-20-2020 21:23-0400 Body weight 71.67 kg Max Trumaker Work Phone: 10-20-2020 20:00-0400 Body temperature 98.01 [degF] Max Trumaker Work Phone: 10-16-2020 05:44-0400 Diastolic blood pressure 121 mm[Hg] Kian Crismaru MD Work Phone: [facility] Work Phone: Comment on above: Dr. Woodson aware of discharge blood pr essure 10-16-2020 05:44-0400 Systolic blood pressure 174 mm[Hg] Kian Woodson MD Work Phone: [facility] Work Phone: Comment on above: Dr. Woodson aware of discharge blood pr essure 10-16-2020 03:15-0400 Heart rate 72 /min Kian Woodson MD Work Phone: [facility] Work Phone: 10-16-2020 03:15-0400 Respiratory rate 17 /min Kian Woodson MD Work Phone: [facility] Work Phone: 10-16-2020 03:15-0400 SaO2% (BldA) [Mass fraction] 95 % Kian Woodson MD Work Phone: [employer] Work Phone: 10-15-2020 23:03-0400 Body temperature 98.1 [degF] Kian Woodson MD Work Phone: [employer] Work Phone: 09-15-2020 11:56-0400 Pulse Oximetry 97 % [employer] Work Phone: 09-15-2020 11:55-0400 BP Diastolic 95 mm[Hg] [employer] Work Phone: 09-15-2020 11:55-0400 BP Systolic 144 mm[Hg] [employer] Work Phone: 09-15-2020 11:55-0400 Pulse (Heart Rate) 90 /min [employer] Work Phone: 09-15-2020 11:55-0400 Respiratory Rate 16 /min Mynor [employer] Work Phone: 09-15-2020 08:32-0400 BMI (Body Mass Index) 24.02 kg/m2 Mynor MullinsSumRidge Partners [facility] Work Phone: 09-15-2020 08:32-0400 Body Temperature 98.01 [degF] Mynor MullinsGalazarBon [facility] Work Phone: 09-15-2020 08:32-0400 Body weight 71.67 kg Mynor [employer] Phone: 09-12-2020 15:45-0400 BP Diastolic 82 mm[Hg] Ritesh DowdPolarTechBon Secours DePaul [facility] Work Phone: 09-12-2020 15:45-0400 BP Systolic 134 mm[Hg] Ritesh [facility] Work Phone: 09-12-2020 15:45-0400 Pulse (Heart Rate) 63 /min Ritesh [employer] [facility] Work Phone: 09-12-2020 15:45-0400 Pulse Oximetry 96 % Ritesh VicentePolarTechBon Secours De[facility] Work Phone: 09-12-2020 15:45-0400 Respiratory Rate 20 /min Ritesh Dowd [facility] Work Phone: 09-11-2020 21:16-0400 Body Temperature 98.6 [degF] Ritesh [employer] [facility] Work Phone: 09-11-2020 16:28-0400 BMI (Body Mass Index) 24.63 kg/m2 Ritesh VicentePolarTechBon Secours De[facility] [employer] Phone: 09-11-2020 16:28-0400 Body weight 73.48 kg Ritesh VicentePolarTechBon Secours DePaul [facility] Work Phone: 09-11-2020 01:15-0400 Pulse Oximetry 98 % Khris [employer] Work Phone: 09-10-2020 22:30-0400 BP Diastolic 106 mm[Hg] Khris [employer] Work Phone: 09-10-2020 22:30-0400 BP Systolic 153 mm[Hg] Khris Watson [employer] Work Phone: 09-10-2020 20:42-0400 Body Temperature 97.5 [degF] Khris [employer] Work Phone: 09-10-2020 20:42-0400 Pulse (Heart Rate) 108 /min Khris [employer] Work Phone: 09-10-2020 20:42-0400 Respiratory Rate 17 /min Khris Aspire Healthjos[facility] [employer] Work Phone: 09-07-2020 12:45-0400 Pulse (Heart Rate) 83 /min Mynor [email or web address] Work Phone: 09-07-2020 12:45-0400 Pulse Oximetry 95 % Mynor CainPrimrose [employer]rapeutics Work Phone: 09-07-2020 12:45-0400 Respiratory Rate 17 /min Mynor CainPrimrose Therapeutics Work Phone: 09-07-2020 12:00-0400 BP Diastolic 94 mm[Hg] Mynor CainPrimrose [employer]rapeutics Work Phone: 09-07-2020 12:00-0400 BP Systolic 149 mm[Hg] Mynor CainPrimrose [employer]rapeutics Work Phone: 09-07-2020 00:51-0400 Body Temperature 98.91 [degF] Mynor CainPrimrose [employer] Work Phone: 07-22-2020 14:00-0500 BP Diastolic 99 mm[Hg] Ritesh Dowd [employer] Work Phone: 07-22-2020 14:00-0500 BP Systolic 146 mm[Hg] Ritesh Dowd [employer] In[facility] MediaBon [facility] Work Phone: 07-22-2020 14:00-0500 Pulse (Heart Rate) 63 /min Ritesh Arthur [facility] Work Phone: 07-22-2020 14:00-0500 Respiratory Rate 14 /min Ritesh [facility] Work Phone: 07-22-2020 11:30-0500 Body Temperature 98.01 [degF] Ritesh [facility] Work Phone: 07-22-2020 11:30-0500 Pulse Oximetry 93 % Ritesh ForutneSn[employer]TV Work Phone: 07-22-2020 11:13-0500 Height 172.7 cm Ritesh [employer]X [employer] Work Phone: 07-22-2020 05:15-0500 BMI (Body Mass Index) 26.41 kg/m2 Ritesh FortuneCeNeRx [employer] Work Phone: 07-22-2020 05:15-0500 Body weight 78.79 kg Ritesh [employer]Int[employer] Work Phone: 08-10-2019 13:42-0500 BP Diastolic 102 mm[Hg] Huber [email or web address] [place] 08-10-2019 13:42-0500 BP Systolic 154 mm[Hg] Huber [email or web address] [place] 08-10-2019 13:42-0500 Pulse (Heart Rate) 86 /min Huber Chosen[employer] [facility] [place] 08-10-2019 13:42-0500 Pulse Oximetry 96 % Huber Ch[employer] [facility] [place] 08-10-2019 13:42-0500 Respiratory Rate 16 /min [email or web address], [place] 08-10-2019 11:37-0500 BMI (Body Mass Index) 22.81 kg/m2 Huber Zimmer [facility] 08-10-2019 11:37-0500 Body Temperature 98.29 [degF] Huber Arthur [facility] 08-10-2019 11:37-0500 Body weight 68.04 kg [facility] [place] 08-10-2019 11:37-0500 Height 172.[address] [facility] , [place] 02-03-2019 02:49-0400 BP Diastolic 121 mm[Hg] Tiffany Shrestha [facility] , [place] 02-03-2019 02:49-0400 BP Systolic 171 mm[Hg] Tiffany Shrestha [facility] [place] 02-02-2019 22:41-0400 BMI (Body Mass Index) 22.48 kg/m2 Tiffany Arthur [facility], [place] 02-02-2019 22:41-0400 Body Temperature 98.2 [degF] Tiffany Arthur [facility] 02-02-2019 22:41-0400 Body weight 68.04 kg Tiffany Ellis [facility] [place] 02-02-2019 22:41-0400 Height 174 cm Tiffany Ellis [facility] [place] 02-02-2019 22:41-0400 Pulse (Heart Rate) 98 /min Tiffanyaudra Arthur [facility], [place] 02-02-2019 22:41-0400 Pulse Oximetry 99 % Tiffany Shrestha [facility] [place] 02-02-2019 22:41-0400 Respiratory Rate 20 /min Tiffany Ellis [facility] 01-28-2019 11:12-0400 BMI (Body Mass Index) 24.63 kg/m2 Huber [facility] 01-28-2019 11:12-0400 Body Temperature 97.9 [degF] Huber Zimmer [facility], [place] 01-28-2019 11:12-0400 Body weight 73.[address] [facility] , [place] 01-28-2019 11:12-0400 BP Diastolic 109 mm[Hg] Huberje Zimmer [facility] , [place] 01-28-2019 11:12-0400 BP Systolic 185 mm[Hg] Huber Arthur [facility] , [place] 01-28-2019 11:12-0400 Pulse (Heart Rate) 70 /min Huber Arthur [facility] 01-28-2019 11:12-0400 Pulse Oximetry 100 % Huber Arthur [facility] , [place] 01-28-2019 11:12-0400 Respiratory Rate 16 /min Huber Arthur [facility] 01-13-2019 21:59-0400 BP Diastolic 112 mm[Hg] Huber Arthur [facility] , [place] 01-13-2019 21:59-0400 BP Systolic 169 mm[Hg] Huber Arthur [facility] , [place] 01-13-2019 21:59-0400 Pulse (Heart Rate) 65 /min Huber Arthur [facility], [place] 01-13-2019 21:59-0400 Pulse Oximetry 95 % Huber Arthur [facility] , [place] 01-13-2019 21:37-0400 Respiratory Rate 15 /min Huber Arthur [facility], [place] 01-13-2019 19:36-0400 BMI (Body Mass Index) 24.33 kg/m2 Huber Arthur [facility] 01-13-2019 19:36-0400 Body Temperature 98.49 [degF] Huber Arthur [facility] 01-13-2019 19:36-0400 Body weight 72.58 kg Huber Arthur [facility] , [place] 01-13-2019 19:36-0400 Height 172.7 cm Huber Arthur [place], [place] Encounters Encounter Date Encounter Type Care Provider Facility Start: 11-27-2024 ambulatory Jalyn parks Schwerer DO Facility:[facility] Start: 11-06-2024 End: 11-06-2024 ambulatory Jalyn Beriros Schwerer DO Work Phone: [facility] Work Phone: Start: 11-06-2024 End: 11-06-2024 Patient encounter procedure Jalyn Schwerer DO Work Phone: [facility] Work Phone: Start: 10-05-2024 End: 10-05-2024 ambulatory Jalyn Fraserr DO Facility:[facility] Start: 09-25-2024 End: 09-25-2024 Bamboo flowsheet Antonino Delgado MD Work Phone: [facility] Start: 09-25-2024 End: 09-25-2024 Bamboo flowsheet Antonino Delgado MD Work Phone: [facility] Start: 09-25-2024 End: 09-25-2024 Postop follow up visit related to original px Antonino Delgado MD Work Phone: [facility] Comment on above: Surgery follow-up (P rimary Dx); Menometrorrhagia; Menopausal symptoms Start: 09-25-2024 End: 09-25-2024 ambulatory ANTONINO DELGADO Not Available Start: 09-25-2024 End: 09-25-2024 ambulatory Jalyn Berrios Schwerer DO Work Phone: [facility] Work Phone: Start: 09-25-2024 End: 09-25-2024 Patient encounter procedure Jalyn Yaneserer DO Work Phone: [facility] Family Medicine [place] Work Phone: Start: 09-11-2024 End: 09-11-2024 External Result Encounter Antonino Delgado MD Work Phone: [facility] Unsolicited Start: 09-11-2024 End: 09-11-2024 External Result Encounter Antonino Delgado MD Work Phone: [facility] Unsolicited Start: 09-11-2024 End: 09-11-2024 Admission to same day surgery center Jalyn Fraserr DO Work Phone: [facility] [place] Start: 09-11-2024 End: 09-11-2024 ambulatory Jalyn Berrios Schwerer DO Work Phone: [facility] Work Phone: Start: 08-28-2024 End: 08-28-2024 Patient encounter procedure Jalyn Schwerer DO Work Phone: [facility]Pre-Surgical Testing Work Phone: Start: 08-28-2024 End: 08-28-2024 ambulatory Jalyn E Schwerer DO Work Phone: [facility] Work Phone: Start: 08-28-2024 Encounter for preprocedural laboratory examination Antonino Delgado [facility] Start: 08-15-2024 ambulatory Samir barahona MD Facility[facility] Start: 08-15-2024 Non-patient / Non-visit Kaitli n Schwerer DO Work Phone: [facility] Family Medicine [place] Work Phone: Start: 08-10-2024 End: 08-10-2024 ambulatory Jalyn Brittanie Schwerer DO Facility:[facility] Start: 08-07-2024 Non-patient / Non-visit Kaitli n Schwerer DO Work Phone: [facility] Family Medicine [place] Work Phone: Start: 08-04-2024 End: 08-04-2024 Emergency department patient visit Jalyn Schwerer DO Work Phone: [facility] Work Phone: Start: 08-02-2024 End: 08-02-2024 ambulatory Jalyn E Schwerer DO Work Phone: [facility] Work Phone: Start: 08-02-2024 End: 08-02-2024 Patient encounter procedure Jalyn Schwerer DO Work Phone: [facility] Work Phone: Start: 07-27-2024 End: 07-27-2024 Bamboo flowsheet Antonino Delgado MD Work Phone: [facility] Start: 07-27-2024 End: 07-27-2024 Bamboo flowsheet Antonino Delgado MD Work Phone: [facility] Start: 07-27-2024 End: 07-27-2024 Office outpatient visit 25 minutes Antonino Delgado MD Work Phone: [facility] Comment on above: Menometrorrhagia Start: 07-27-2024 End: 07-27-2024 ambulatory ANTONINO DELGADO Not Available Start: 06-12-2024 End: 06-12-2024 ambulatory Jalyn Holt DO Facility:[facility] Start: 05-22-2024 End: 05-22-2024 Bamboo flowsheet Daniel Cuevas DO Work Phone: [facility] Start: 05-22-2024 End: 05-22-2024 Bamboo flowsheet Daniel Cuevas DO Work Phone: [facility] Start: 05-22-2024 End: 05-22-2024 Postop follow up visit related to original px Daniel Cuevas DO Work Phone: [facility] Comment on above: Status post partial thyroidectomy (CMS/HCC) (Primary Dx) Start: 05-22-2024 End: 05-22-2024 ambulatory DANIEL CUEVAS Not Available Start: 05-16-2024 End: 05-16-2024 ambulatory Samir Pereira MD Facility:[facility] Start: 05-15-2024 End: 05-15-2024 External Result Encounter Daniel Cuevas DO Work Phone: [facility] Unsolicited Start: 05-15-2024 End: 05-15-2024 External Result Encounter Daniel Cuevas DO Work Phone: [facility] Unsolicited Start: 05-15-2024 End: 05-15-2024 ambulatory DANIEL Maciel DEIRDREMACO Not Available Start: 05-15-2024 End: 05-15-2024 Admission to same day surgery center Jalyn Yaneserer DO Work Phone: [facility] [place] Start: 05-15-2024 End: 05-15-2024 ambulatory Daniel Ritchiesravani [facility] Start: 05-08-2024 End: 05-08-2024 Patient encounter procedure Jalyn Yaneserer DO Work Phone: [facility] Family Medicine [place] Work Phone: Start: 04-25-2024 End: 04-25-2024 Bamboo flowsheet Daniel Cuevas DO Work Phone: [facility] [place] Start: 04-25-2024 End: 04-25-2024 Bamboo flowsheet Daniel Cuevas DO Work Phone: [facility] Start: 04-25-2024 End: 04-25-2024 External Result Encounter Daniel Cuevas DO Work Phone: [facility] Unsolicited Start: 04-25-2024 End: 04-25-2024 Patient encounter procedure Jalyn Yaneserer DO Work Phone: [facility] [place] Work Phone: Start: 04-25-2024 End: 04-25-2024 ambulatory Jalyn Yaneserer DO Work Phone: [facility] Work Phone: Start: 04-25-2024 Encounter for other preprocedural examination Daniel Cuevas [facility] Start: 04-25-2024 End: 04-25-2024 ambulatory DANIEL Maciel FAITH Not Available Start: 04-25-2024 End: 04-25-2024 Office outpatient new 60 minutes Daniel Cuevas DO Work Phone: [facility] [place] Comment on above: 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); Preop testing Start: 04-25-2024 End: 04-25-2024 Patient encounter status Daniel Cuevas DO Work Phone: [facility] Start: 04-11-2024 End: 04-11-2024 ambulatory [facility] Work Phone: Start: 04-11-2024 End: 04-11-2024 Patient encounter procedure [facility] Work Phone: Start: 04-07-2024 End: 04-07-2024 ambulatory Jalyn Brittanie Schwerer DO Facility:[facility] Start: 03-29-2024 End: 03-30-2024 ambulatory Jalyn Brittanie Schwerer DO Facility:[facility] Start: 03-29-2024 End: 03-29-2024 ambulatory Samir Pereira MD Facility:[facility] Start: 03-23-2024 ambulatory Jalyn Tayab kasey Schwerer DO Facility:[facility] Start: 03-17-[address] [facility] Work Phone: Start: 03-17-2024 Non-patient / Non-visit [facility] Work Phone: Start: 03-16-2024 End: 03-16-2024 Evaluation and management of inpatient LARRY KHRIS MATEO [facility] Start: 03-09-2024 End: 03-09-[address] [facility] Start: 03-06-2024 End: 03-06-2024 ambulatory Jalyn Brittanie Schwerer DO Facility:[facility] Start: 03-02-2024 End: 03-05-2024 Evaluation and management of inpatient Jalyn Brittanie Schwerer DO Facility:[facility] Start: 03-02-2024 End: 03-02-2024 Emergency department patient visit Kathy Pearce MD Work Phone: [facility] ED Comment on above: Elevated liver enzym es (Primary Dx); Intractable nausea and vomiting Start: 02-27-2024 End: 02-27-2024 Emergency department patient visit Fahad Mtz MD Work Phone: [facility] Comment on above: Nausea and vomiting, unspecified vomiting type (Primary Dx); Abdominal pain, unspecified abdominal location Start: 02-25-2024 End: 02-25-2024 ambulatory [facility] Work Phone: Start: 02-25-2024 End: 02-25-2024 Patient encounter procedure [facility] Work Phone: Start: 02-11-2024 End: 02-15-2024 Emergency department patient visit JOSSELINE A [facility] Start: 02-11-2024 End: 02-14-[address] [facility] Start: 02-07-2024 End: 02-10-2024 Emergency department patient visit MARKY [facility] Start: 02-07-2024 End: 02-09-[address] [facility] Start: 01-27-2024 End: 01-27-2024 ambulatory [facility] Facility:[facility] Start: 01-07-2024 End: 01-07-2024 ambulatory [facility] Work Phone: Start: 01-07-2024 End: 01-07-2024 Patient encounter procedure [facility] Work Phone: Start: 01-05-2024 End: 01-05-2024 ambulatory [facility] Work Phone: Start: 01-05-2024 End: 01-05-2024 Patient encounter procedure [facility] Work Phone: Start: 12-21-2023 ambulatory Jalyn Tory parks Schwerer DO Facility:[facility] Start: 12-14-2023 End: 12-14-2023 ambulatory Jalyn Brittanie Schwerer DO Facility:[facility] Start: 12-03-2023 End: 12-04-2023 ambulatory Jalyn Brittanie Schwerer DO Facility:[facility] Start: 12-02-2023 End: 12-03-2023 Emergency department patient visit Larry Perez MD Work Phone: [facility] ED Comment on above: Upper GI bleed (Prim portia Dx) Start: 12-02-2023 End: 12-02-2023 ambulatory Jalyn Gu Schwerer DO Facility:[facility] Start: 10-17-2023 End: 10-17-2023 Emergency department patient visit Fahad Mtz MD Work Phone: [facility] ED Comment on above: Generalized abdomina l pain (Primary Dx); Nausea and vomiting, unspecified vomiting type Start: 10-08-2023 End: 10-08-2023 ambulatory [facility] Work Phone: Start: 10-08-2023 End: 10-08-2023 [facility] [place] Work Phone: Start: 09-20-2023 End: 09-20-2023 ambulatory DO Jalyn E Schwerer Work Phone: [facility] Work Phone: Start: 09-20-2023 End: 09-20-2023 Patient encounter procedure DO Jalyn Schwerer Work Phone: [facility] Work Phone: Start: 09-11-2023 End: 09-11-2023 ambulatory LURDES DEVAUL [facility] Start: 09-10-2023 End: 09-10-2023 [facility] Start: 09-06-2023 End: 09-06-2023 Emergency department patient visit Kateryna Anguiano DO Work Phone: [facility] ED Comment on above: Upper GI bleed (Prim portia Dx); Hematemesis with nausea Start: 08-24-2023 End: 08-25-2023 Evaluation and management of inpatient LARRY GALINDO [facility] Start: 08-08-2023 End: 08-08-2023 Patient encounter procedure DO Jalyn Schwerer Work Phone: [facility] Urgent Care [place] Work Phone: Start: 07-09-2023 Non-patient / Non-visit DO Gorge tlin Schwerer Work Phone: [facility] Vascular Surgery Work Phone: Start: 07-08-2023 End: 07-08-2023 ambulatory JALYN SCHWERER [facility] Comment on above: Nausea and vomiting, unspecified vomiting type (Primary Dx) Start: 07-07-2023 End: 07-07-2023 ambulatory Poly Morgan Other [facility] [employer] Other Start: 07-07-2023 Office outpatient vi sit 15 minutes Poly Morgan [facility] Vascular Surgery Start: 07-07-2023 End: 07-07-2023 Patient encounter procedure DO Jalyn Schwerer Work Phone: [facility]- Start: 07-01-2023 End: 07-01-2023 ambulatory JALYN SCHWERER [facility] Comment on above: Nausea and vomiting, unspecified vomiting type (Primary Dx) Start: 06-29-2023 Non-patient / Non-visit DO Gorge tlin Schwerer Work Phone: [facility] [employer] Work Phone: Start: 06-24-2023 End: 06-24-2023 ambulatory JALYN SCHWERER [facility] Comment on above: Nausea and vomiting, unspecified vomiting type (Primary Dx) Start: 06-22-2023 End: 06-22-2023 Admission to same day surgery center DO Jalyn Augusterer Work Phone: [facility] [place] Start: 06-22-2023 End: 06-22-2023 ambulatory DO Jalyn E Schwerer Work Phone: [facility] Work Phone: Start: 06-21-2023 End: 06-21-2023 ambulatory Jalyn Schwerer Other [employer] Other Start: 06-21-2023 Telephone encounter Jalyn [facility] Start: 06-19-2023 End: 06-19-2023 [facility] Start: 06-18-2023 End: 06-18-2023 ambulatory [facility] Start: 06-18-2023 End: 06-18-2023 ambulatory [facility] Start: 06-17-2023 End: 06-17-2023 Discharged Recurring DO Jalyn Augustnavir Work Phone: [facility] Work Phone: Start: 06-17-2023 Registered Recurring DO Yannickyuli mendez Schwerer Work Phone: [facility] Work Phone: Start: 06-17-2023 (PUMP/CGM) Pump / Sensor Rudy triplett [facility] Start: 06-17-2023 End: 06-17-2023 ambulatory DO Jalyn E Schwerer Work Phone: [employer] Other Start: 06-17-2023 Office outpatient vi sit 25 minutes Jalyn Fraserr [facility] Medicine [place] Start: 06-17-2023 End: 06-17-2023 Patient encounter procedure DO Jalyn Schwerer Work Phone: [facility] Work Phone: Start: 06-16-2023 [facility]ill [facility] Comment on above: Tremors of nervous s ystem Start: 06-10-2023 End: 06-10-2023 ambulatory Jalyn Schwerer Other [employer] Other Start: 06-10-2023 [facility] Start: 06-08-2023 Orders Only [facility] Tre[facility] General Surgery Comment on above: Difficult intravenou s access (Primary Dx) Start: 05-24-2023 End: 05-24-2023 Emergency department patient visit [facility] Start: 05-24-2023 End: 05-24-2023 ambulatory Poly Morgan Other [employer] Other Start: 05-24-2023 Telephone encounter Poly Freitas [facility] [employer] Start: 05-21-2023 End: 05-21-2023 ambulatory Jalyn Schwerer Other [employer] Other Start: 05-21-2023 Office outpatient vi sit 40 minutes Jalyn Schwerer [facility] [place] Start: 05-21-2023 End: 05-21-2023 Patient encounter procedure DO Jalyn Schwerer Work Phone: [facility] Family Medicine [place] Work Phone: Start: 05-20-2023 End: 05-20-2023 Emergency department patient visit DO Guerrero Don Work Phone: [facility]-Emergency Room Work Phone: Start: 05-19-2023 End: 05-19-2023 Emergency department patient visit DO Max Pavlock Work Phone: [facility] Work Phone: Start: 05-13-2023 End: 05-13-2023 Emergency department patient visit DO Max Pavlock Work Phone: [facility] Work Phone: Start: 05-12-2023 End: 05-12-2023 ambulatory Jalyn Fraserr Other [employer] Other Start: 05-12-2023 Telephone encounter Jalyn Holt [facility] Start: 05-03-2023 End: 05-03-2023 ambulatory Jalyn Fraserr Other [employer] Other Start: 05-03-2023 Telephone encounter Jalyn Fraserr [facility] Start: 04-26-2023 End: 04-26-2023 ambulatory Tondra Mapus Other [employer] Other Start: 04-26-2023 Telephone encounter Tondra Mapus [facility] Start: 04-26-2023 End: 04-26-2023 Emergency department patient visit [facility] Start: 04-20-2023 End: 04-20-2023 Emergency department patient visit [facility] Start: 04-19-2023 End: 04-19-2023 ambulatory Tondra Mapus Other [employer] Other Start: 04-19-2023 Telephone encounter Tondra Mapus [facility] Start: 04-16-2023 End: 04-16-2023 ambulatory Tondra Mapus Other [employer] Other Start: 04-16-2023 Telephone encounter Rudy Rm [facility] Start: 03-31-2023 End: 03-31-2023 ambulatory Jalyn Schwerer Other [employer] Other Start: 03-31-2023 Telephone encounter Jalyn Schwerer [facility] [place] Start: 03-30-2023 End: 03-30-2023 ambulatory Jalyn Schwerer Other [employer] Other Start: 03-30-2023 Telephone encounter Jalyn Schwerer [facility] [place] Start: 03-26-2023 End: 03-26-2023 ambulatory Jalyn Schwerer Other [employer] Other Start: 03-26-2023 Telephone encounter Jalyn Schwerer [facility] [place] Start: 03-25-2023 End: 03-25-2023 Emergency department patient visit [facility] Start: 03-19-2023 End: 03-19-2023 ambulatory Jalyn Schwerer Other [employer] Other Start: 03-19-2023 Office outpatient vi sit 25 minutes Jalyn Schwerer [facility] [place] Start: 03-19-2023 Telephone encounter Jalyn Schwerer [facility] [place] Start: 03-17-2023 End: 03-17-2023 ambulatory Jalyn Schwerer Other [employer] Other Start: 03-17-2023 Telephone encounter Jalyn Schwerer [facility] [place] Start: 03-10-2023 End: 03-10-2023 ambulatory Jalyn Schwerer Other [employer] Other Start: 03-10-2023 Telephone encounter Jalyn Schwerer [facility] [place] Start: 03-09-2023 End: 03-09-2023 ambulatory Jalyn Schwerer Other [employer] Other Start: 03-09-2023 Telephone encounter Jalyn Schwerer [facility] Start: 03-01-2023 Registered Recurring DO Guerrero florence Work Phone: [facility] Work Phone: Start: 03-01-2023 (PUMP/CGM) Pump / Sensor Tondra Mapu s [facility] Start: 03-01-2023 End: 03-01-2023 ambulatory Tondra Mapus Other [employer] Other Start: 2023 End: 2023 ambulatory Jalyn Schwerer Other [employer] Other Start: 2023 Office outpatient vi sit 25 minutes Jalyn Schwerer [facility] Start: 02-05-2023 End: 02-05-2023 ambulatory Tondra Mapus Other [employer] Other Start: 02-05-2023 Telephone encounter Tondra Mapus [facility] Start: 02-01-2023 End: 02-01-2023 ambulatory Tondra Mapus Other [employer] Other Start: 02-01-2023 Telephone encounter Tondra Mapus [facility] Start: 01-26-2023 End: 01-26-2023 ambulatory Jalyn Schwerer Other [employer] Other Start: 01-26-2023 Telephone encounter Jalyn Schwerer [facility] Start: 01-19-2023 End: 01-19-2023 ambulatory Tondra Mapus Other [employer] Other Start: 01-19-2023 Telephone encounter Tondra Rm [facility] Start: 01-18-2023 End: 01-18-2023 ambulatory Tondra Mapus Other [employer] Other Start: 01-18-2023 Nursing evaluation o f patient and report Rudy Rm [facility] Start: 01-18-2023 Telephone encounter Jlayn Schwerer [facility] Start: 01-15-2023 End: 01-15-2023 ambulatory Jalyn Schwerer Other [employer] Other Start: 01-15-2023 Telephone encounter Jalyn Schwerer [facility] Start: 01-15-2023 End: 01-15-2023 Emergency department patient visit DO Jalyn Schwerer Work Phone: [facility] Work Phone: Start: 01-14-2023 End: 01-14-2023 ambulatory Tondra Stuartus Other [employer] Other Start: 01-14-2023 Telephone encounter Tondra Rm [facility] Start: 01-12-2023 End: 01-12-2023 ambulatory Jalyn Schwerer Other [employer] Other Start: 01-12-2023 Telephone encounter Jalyn Schwerer [facility] Start: 01-11-2023 End: 01-11-2023 ambulatory Jalyn Schwerer Other [employer] Other Start: 01-11-2023 Telephone encounter Jalyn Schwerer [facility] Start: 12-31-2022 End: 12-31-2022 ambulatory Jalyn Schwerer Other [employer] Other Start: 12-31-2022 Telephone encounter Jalyn Schwerer [facility] Start: 12-09-2022 End: 12-09-2022 ambulatory Tondra Mapus Other [employer] Other Start: 12-09-2022 Telephone encounter Tondra Mapus [facility] Start: 12-04-2022 End: 12-04-2022 Emergency department patient visit Cuhck Lowe MD [facility] Comment on above: Chronic intractable headache, unspecified headache type (Primary Dx) Start: 12-03-2022 End: 12-03-2022 ambulatory Jalyn Schwerer Other [employer] Other Start: 12-03-2022 Telephone encounter Jalyn Schwerer [facility] Start: 12-02-2022 End: 12-02-2022 ambulatory Jalyn Schwerer Other [employer] Other Start: 12-02-2022 Telephone encounter Jalyn Schwerer [facility] Start: 11-24-2022 End: 11-24-2022 ambulatory Jalyn Schwerer Other [employer] Other Start: 11-24-2022 Telephone encounter Jalyn Schwerer [facility] Start: 11-19-2022 End: 11-19-2022 Emergency department patient visit Jalyn Schwerer DO Work Phone: [facility] Comment on above: Migraine without aur a and without status migrainosus, not intractable (Primary Dx) Start: 11-06-2022 End: 11-06-2022 ambulatory Tondra Mapus Other [employer] Other Start: 11-06-2022 Telephone encounter Rudy Rm [facility] Start: 11-03-2022 End: 11-03-2022 ambulatory Rudy Rm Other [employer] Other Start: 11-03-2022 Telephone encounter Rudy Rm [facility] Start: 11-02-2022 End: 11-02-2022 ambulatory JALYN SCHWERER Facility: Start: 11-02-2022 End: 11-02-2022 ambulatory DO Jalyn E Schwerer Work Phone: [facility] Work Phone: Start: 11-02-2022 End: 11-02-2022 Patient encounter procedure DO Jalyn Schwerer Work Phone: [facility] [place] Work Phone: Start: 10-05-2022 End: 10-05-2022 ambulatory Jalyn Schwerer Other [employer] Other Start: 10-05-2022 Telephone encounter Cheryl parker DO Work Phone: Colorectal Surgery Comment on above: Patient Question Returning Patient's Call Start: 10-02-2022 End: 10-02-2022 ambulatory Jalyn Schwerer Other [employer] Other Start: 10-02-2022 Office outpatient vi sit 25 minutes Jalyn Schwerer [facility] Start: 10-02-2022 End: 10-02-2022 Patient encounter procedure DO Jalyn Schwerer Work Phone: [facility] Start: 09-30-2022 End: 09-30-2022 ambulatory Tona Stuartus Other [employer] Other Start: 09-30-2022 Telephone encounter Rudy Rm [facility] Start: 09-28-2022 End: 09-28-2022 ambulatory Jalyn Schwerer Other [employer] Other Start: 09-28-2022 Telephone encounter Jalyn Schwerer [facility] Start: 09-03-2022 End: 09-03-2022 ambulatory Tondra Mapus Other [employer] Other Start: 09-03-2022 Telephone encounter Rudy Rm [facility] Start: 09-01-2022 End: 09-01-2022 ambulatory Jalyn Schwerer Other [employer] Other Start: 09-01-2022 Telephone encounter Jalyn Schwerer [facility] Start: 08-29-2022 End: 08-29-2022 Emergency department patient visit Paula Lealgalina [facility] Emergency 13 Start: 08-27-2022 End: 08-27-2022 Emergency department patient visit Jalyncheyanne Yaneserer DO Work Phone: [facility] Comment on above: Drug-induced constip ation (Primary Dx) Start: 08-27-2022 End: 08-27-2022 ambulatory JALYN SCHWERER Facility: Start: 08-19-2022 Patient encounter status Tereza hunter [facility] Work Phone: Start: 08-18-2022 End: 08-18-2022 ambulatory Jalyn Schwerer Other [employer] Other Start: 08-18-2022 Office outpatient vi sit 15 minutes Jalyn Schwerer [facility] Start: 08-18-2022 Telephone encounter Jalyn Schwerer [facility] Start: 08-11-2022 End: 08-11-2022 ambulatory Jalyn Schwerer Other [employer] Other Start: 08-11-2022 Telephone encounter Jalyn Schwerer [facility] [place] Start: 08-04-2022 End: 08-04-2022 ambulatory Azrafael Mayss Other [employer] Other Start: 08-04-2022 Telephone encounter Angela Mayss [facility] Start: 07-31-2022 End: 07-31-2022 ambulatory Jalyn Schwerer Other [employer] Other Start: 07-31-2022 Office outpatient vi sit 15 minutes Jalyn Schwerer [facility] [place] Start: 07-30-2022 End: 07-30-2022 ambulatory Jalyn Schwerer Other [employer] Other Start: 07-30-2022 Telephone encounter Jalyn Schwerer [facility] [place] Start: 07-23-2022 End: 07-23-2022 ambulatory Jalyn Schwerer Other [employer] Other Start: 07-23-2022 Telephone encounter Jalyn Schwerer [facility] [place] Start: 07-22-2022 (PUMP/CGM) Pump / Sensor Tondra Mapu [facility] Start: 07-22-2022 End: 07-22-2022 ambulatory Tondra Mapus Other [employer] Other Start: 07-22-2022 Telephone encounter Tondra Mapus [facility] Start: 07-16-2022 End: 07-16-2022 ambulatory Jalyn Schwerer Other [employer] Other Start: 07-16-2022 Telephone encounter Jalyn Schwerer [facility] [place] Start: 07-13-2022 End: 07-13-2022 ambulatory Jalyn Schwerer Other [employer] Other Start: 07-13-2022 Telephone encounter Jalyn Yaneserer [facility] [place] Start: 07-10-2022 End: 07-10-2022 Evaluation and management of inpatient DO Guerrero Wonglock Work Phone: [facility] [place] [facility] Work Phone: Start: 07-10-2022 End: 07-10-2022 ambulatory Jalyn Schwerer Other [employer] Other Start: 07-10-2022 Office outpatient vi sit 40 minutes Jalyn Schwerer [facility] [place] Start: 07-09-2022 End: 07-09-2022 ambulatory Azrafael Randyerasmos Other [employer] Other Start: 07-09-2022 Telephone encounter Azrafael Mayss [facility] Start: 07-08-2022 End: 07-08-2022 ambulatory Aziz Bakhous Other [employer] Other Start: 07-08-2022 Office outpatient ne w 30 minutes Aziz Bakhous [facility] Start: 07-06-2022 End: 07-06-2022 ambulatory Cheryl East DO Work Phone: Colorectal Surgery Comment on above: Rectal prolapse (Peggy rachel Dx) Start: 07-06-2022 End: 07-06-2022 Telemedicine consultation with patient Cheryl East DO Work Phone: [facility] Start: 07-02-2022 End: 07-02-2022 Evaluation and management of inpatient CHERYL EAST Facility:[facility] Start: 07-01-2022 End: 07-01-2022 Evaluation and management of inpatient PATTI BETHEA Facility:[facility] Start: 06-27-2022 End: 07-02-2022 Evaluation and management of inpatient ELSA SAN Facility:[facility] Start: 06-25-2022 End: 06-27-2022 Evaluation and management of inpatient JALYN HOLT Facility: Start: 06-19-2022 Telephone encounter Cheryl parker DO Work Phone: Colorectal Surgery Comment on above: Patient Update Start: 06-15-2022 End: 06-15-2022 ambulatory Rudy Rm Other [employer] Other Start: 06-15-2022 Office outpatient vi sit 15 minutes Edie Stuart [facility] [place] Start: 06-15-2022 Telephone encounter Rudy Rm [facility] Start: 06-09-2022 Telephone encounter Cheryl parker DO Work Phone: Colorectal Surgery Comment on above: Patient Update Start: 06-04-2022 End: 06-04-2022 ambulatory Jalyn Holt Other [employer] Other Start: 06-04-2022 Telephone encounter Jalyn Holt [facility] Start: 06-02-2022 End: 06-02-2022 ambulatory FERN COLORADO Facility:[facility] Start: 06-02-2022 End: 06-02-2022 Patient encounter procedure Fern Stanislav ZARAGOZA Work Phone: Colorectal Surgery Comment on above: Postoperative examin ation (Primary Dx); Rectal prolapse Start: 05-31-2022 End: 05-31-2022 Emergency department patient visit Kamryn Ruggiero DO Work Phone: [facility] Comment on above: Constipation, unspec ified constipation type (Primary Dx); Abdominal pain, unspecified abdominal location; Nausea Start: 05-28-2022 End: 05-28-2022 Emergency department patient visit Kian Woodson MD Work Phone: [facility] Comment on above: Right upper quadrant abdominal pain (Primary Dx); Nausea and vomiting, unspecified vomiting type Start: 05-22-2022 End: 05-22-2022 ambulatory Jalyn Holt Other [facility] [employer] Other Start: 05-22-2022 Telephone encounter Jalyn Holt [facility] [place] Start: 05-20-2022 Telephone encounter Cheryl parker DO Work Phone: Colorectal Surgery Comment on above: Patient Question Returning Patient's Call Start: 05-18-2022 End: 05-20-2022 ambulatory HILTON FISHER . Facility: Start: 05-17-2022 End: 05-17-2022 ambulatory JALYN HOLT Facility: Start: 05-14-2022 End: 05-15-2022 Evaluation and management of inpatient CHERYL EAST Facility:[facility] Start: 05-13-2022 End: 05-13-2022 Patient encounter procedure Fern [place] APRN.CNP Work Phone: Colorectal Surgery Comment on above: Preoperative examina tion (Primary Dx) Start: 05-13-2022 End: 05-13-2022 Preprocedural examination done Fern [place] APRN.CNP Work Phone: Colorectal Surgery Start: 05-13-2022 End: 05-14-2022 ambulatory CHERYL EAST Facility:[facility] Start: 05-13-2022 Encounter for other preprocedural examination FERN COLORADO [facility] Start: 05-13-2022 End: 05-14-2022 ambulatory CHERYL EAST Facility:[facility] Start: 05-13-2022 End: 05-13-2022 Admission to establishment Pacc Main 5 Work Phone: [facility] Start: 05-13-2022 End: 05-13-2022 Anesthesia consultation Pacc Main 5 Work Phone: Pre Anesthesia Comment on above: Pre-op evaluation (P rimary Dx); History of anesthesia complications; Essential (primary) hypertension; Nausea and vomiting, unspecified vomiting type; Chronic kidney disease, unspecified CKD stage; Type 2 diabetes mellitus with other specified complication, with long-term current use of insulin (HCC); Anemia, unspecified type Start: 05-13-2022 End: 05-13-2022 Preprocedural examination done Pac Main 5 Work Phone: Pre Anesthesia Start: 05-11-2022 Telephone encounter Cheryl parker DO Work Phone: Colorectal Surgery Comment on above: Patient Question Start: 05-06-2022 Telephone encounter Cheryl parker DO Work Phone: Colorectal Surgery Comment on above: Preparations For Jose Enrique ronaldo Start: 05-05-2022 End: 05-05-2022 ambulatory Jalyn Holt Other [employer] Other Start: 05-05-2022 Telephone encounter Jalyn Holt [facility] Start: 04-29-2022 End: 04-29-2022 ambulatory HILTON FISHER . Facility: Start: 04-23-2022 ambulatory Cheryl East DO Work Phone: [facility] Start: 04-23-2022 Patient encounter procedure Cheryl East DO Work Phone: Colorectal Surgery Comment on above: May 13 appoint ment Start: 04-22-2022 End: 04-22-2022 ambulatory CHERYL EAST Facility:[facility] Start: 04-17-2022 End: 04-17-2022 ambulatory Jalyn Holt Other [employer] Other Start: 04-17-2022 Telephone encounter Cheryl parker DO Work Phone: Colorectal Surgery Comment on above: Patient Question Returning Patient's Call Start: 04-14-2022 (PUMP/CGM) Pump / Sensor Tondra Mapu s [facility] Start: 04-14-2022 End: 04-14-2022 ambulatory Tondra Mapus Other [employer] Other Start: 04-14-2022 Registered Recurring DO Guerrero Perez ludivina Work Phone: [facility] Work Phone: Start: 04-13-2022 End: 04-13-2022 Emergency department patient visit Mynor Kirk MD Work Phone: [facility] Comment on above: Left lower quadrant abdominal pain (Primary Dx); Essential hypertension; Renal dysfunction Start: 04-02-2022 End: 04-03-2022 ambulatory JALYN SCHWERER Facility: Start: 03-31-2022 Office outpatient vi sit 25 minutes Jalyn Schwerer [facility] Start: 03-31-2022 End: 03-31-2022 ambulatory DO Jalyn E Augusterer Work Phone: [employer] Other Start: 03-31-2022 End: 03-31-2022 Patient encounter procedure DO Jalyncheyanne Yaneserer Work Phone: [facility] Start: 03-23-2022 End: 03-24-2022 Emergency department patient visit Kamryn Ruggiero DO Work Phone: [facility] Comment on above: Migraine with aura a nd with status migrainosus, not intractable (Primary Dx) Start: 03-20-2022 End: 03-20-2022 ambulatory Jalyn Schwerer Other [employer] Other Start: 03-20-2022 Telephone encounter Jalyn Schwerer [facility] Start: 03-18-2022 End: 03-18-2022 ambulatory Edie Stuart Other [employer] Other Start: 03-18-2022 Office outpatient vi sit 15 minutes Edie Stuart [facility] Start: 03-16-2022 End: 03-16-2022 ambulatory Cheryl East DO Work Phone: Colorectal Surgery Comment on above: May.13 preanesthsi a Start: 03-16-2022 Telephone encounter Jalyn Holt [facility] [place] Start: 03-10-2022 Orders Only Cheryl East DO Work Phone: Colorectal Surgery Start: 03-06-2022 Telephone encounter Cheryl parker DO Work Phone: Colorectal Surgery Comment on above: Manager Field - O ther Start: 02-27-2022 End: 02-27-2022 Emergency department patient visit DO Max PavNeed Fixed Work Phone: [facility] Start: 02-24-2022 End: 02-24-2022 ambulatory JUDY AARON Facility: Start: 02-23-2022 End: 02-23-2022 ambulatory Ender Lee Facility:[facility] Start: 02-22-2022 End: 02-25-2022 Emergency department patient visit Enderjacqui Lee Facility:[facility] Start: 02-20-2022 End: 02-20-2022 Emergency department patient visit DO Max Anki Work Phone: [facility] Start: 02-19-2022 End: 02-19-2022 ambulatory Jalyn Holt Other [facility] [employer] Other Start: 02-19-2022 Telephone encounter hCeryl parker DO Work Phone: Colorectal Surgery Comment on above: Pain Start: 02-18-2022 Admission to [facility] Cheryl East DO Work Phone: Colorectal Surgery Comment on above: Surgery Start: 02-18-2022 ambulatory Cheryl East DO Work Phone: [facility] Start: 02-18-2022 Telephone encounter Cheryl parker DO Work Phone: Colorectal Surgery Comment on above: Schedule Surgery Returning Patient's Call Start: 02-13-2022 End: 02-13-2022 ambulatory CHERYL EAST Facility:[facility] Start: 02-13-2022 Telephone encounter Cheryl parker DO Work Phone: Colorectal Surgery Comment on above: Manager Field - O ther Patient Question Returning Patient's Call Start: 2022 End: 2022 ambulatory Jalyn Frasermerrill Other [employer] Other Start: 2022 Telephone encounter Jalyn Augustmelonie [facility] Start: 02-04-2022 Telephone encounter Cheryl parker DO Work Phone: Colorectal Surgery Comment on above: Patient Question Start: 02-02-2022 ambulatory Cheryl East DO Work Phone: Colorectal Surgery Comment on above: Sitzmarker Test comp leted Start: 01-26-2022 End: 01-26-2022 Orders Only Fern [place] APRN.ASSISTED LIVING NURSING DIRECTOR Work Phone: Colorectal Surgery Comment on above: Constipation, unspec ified constipation type (Primary Dx) Gastrograffin Enema test Start: 01-26-2022 Telephone encounter Jalyn Augustmelonie [facility] Start: 01-19-2022 End: 01-19-2022 ambulatory Cheryl East DO Work Phone: Colorectal Surgery Comment on above: Gastrograffin Enema test Start: 01-19-2022 Office outpatient vi sit 25 minutes Jalyn Augustmelonie [facility] Start: 01-16-2022 End: 01-16-2022 Patient encounter procedure Gulshan AG [facility] Start: 01-15-2022 ambulatory Cherly East DO Work Phone: Colorectal Surgery Comment on above: Please Advise Start: 01-15-2022 Telephone encounter Cheryl parker DO Work Phone: Colorectal Surgery Comment on above: Returning Patient's Call Returning Patient's Call (Returning ED provider call. ) Start: 01-14-2022 End: 01-14-2022 ambulatory Jalyn Holt Other [facility] [employer] Other Start: 01-14-2022 Telephone encounter Jalyn Holt [facility] [place] Start: 01-13-2022 ambulatory Cheryl Cruzito DO Work Phone: Colorectal Surgery Comment on above: Sitzmarker test Start: 01-11-2022 Encounter for preprocedural laboratory examination DR DEMPSEY [facility] Start: 01-10-2022 End: 01-10-2022 ambulatory JALYN HOLT Facility: Start: 01-09-2022 ambulatory Cheryl East DO Work Phone: Colorectal Surgery Comment on above: Further Testing Constipation, unspec ified constipation type (Primary Dx) Start: 01-07-2022 Telephone encounter Cheryl parker DO Work Phone: Colorectal Surgery Comment on above: Manager Field - O ther Patient Update Start: 01-07-2022 End: 01-08-2022 ambulatory JALYN HOLT [facility] [employer] Other Start: 01-07-2022 End: 01-08-2022 Encounter for preprocedural laboratory examination JALYN HOLT Facility: Start: 01-06-2022 Telephone encounter Cheryl parker DO Work Phone: Colorectal Surgery Comment on above: Returning Patient's Call Start: 01-05-2022 End: 01-05-2022 ambulatory CHERYL EAST Facility:[facility] Start: 01-05-2022 End: 01-05-2022 Admission to establishment Pacc [facility] Start: 01-05-2022 End: 01-05-2022 Anesthesia consultation Pacc Virtual Pre Anesthesia Comment on above: Preop examination (P rimary Dx); Rectal prolapse; History of pancreatectomy; Essential (primary) hypertension; Chronic kidney disease, unspecified CKD stage; Nausea and vomiting, unspecified vomiting type; History of anesthesia complications Start: 01-05-2022 End: 01-05-2022 Preprocedural examination done Pacc Virtual Pre Anesthesia Start: 01-05-2022 Telephone encounter Cheryl Palmerrosy parker DO Work Phone: Colorectal Surgery Comment on above: Patient Question Start: 01-02-2022 End: 01-02-2022 ambulatory Cheryl Palmerkiara SZYMANSKI Work Phone: Colorectal Surgery Comment on above: Testing today Start: 01-02-2022 Telephone encounter Cheryl Mana sravani Work Phone: Colorectal Surgery Comment on above: Patient Question; Re turning Patient's Call Start: 01-02-2022 End: 01-02-2022 Subsequent hospital visit by physician Gi Radio Main Qb1 (I-Stat) Radiology Comment on above: Rectal prolapse [K62 .3] Start: 01-01-2022 (PUMP/CGM) Pump / Sensor Rudy triplett [facility] Start: 01-01-2022 End: 01-01-2022 ambulatory Cheryl Palmerkiara SZYMANSKI Work Phone: Colorectal Surgery Comment on above: Patient Education Start: 01-01-2022 Registered Recurring DO Guerrero florence Work [facility] Start: 12-31-2021 End: 01-01-2022 ambulatory LUCIAN Carlin (CASTRO) AMELIA Facility:[facility] Start: 12-31-2021 End: 12-31-2021 ambulatory LUCIAN Carlin (CASTRO) AMELIA Facility:[facility] Start: 12-31-2021 End: 12-31-2021 ambulatory Letty Hernandez PA-C Work Phone: Colorectal Surgery Comment on above: Manometry Start: 12-31-2021 End: 12-31-2021 Patient encounter procedure Letty Hernandez PA-C Work Phone: [facility] Start: 12-25-2021 End: 12-25-2021 ambulatory [facility] Colorectal Surgery Comment on above: Attach Photos Start: 12-25-2021 E-mail encounter lena carlin caregiver [facility] Provider [facility] Start: 12-25-2021 Telephone encounter Jalyn Holt [facility] [place] Start: 12-24-2021 End: 12-24-2021 ambulatory Jalyn Schwerer Other [employer] Other Start: 12-24-2021 Telephone encounter Jalyn Schwerer [facility] Start: 12-20-2021 End: 12-20-2021 ambulatory JALYN SCHWERER Facility:[facility] Start: 11-30-2021 End: 11-30-2021 ambulatory JALYN SCHWERER Facility:[facility] Start: 11-25-2021 End: 11-25-2021 ambulatory JALYN SCHWERER Facility:[facility] Start: 11-21-2021 End: 11-21-2021 ambulatory JALYN SCHWERER Facility:[facility] Start: 11-20-2021 End: 11-20-2021 ambulatory Jalyn Schwerer Other [employer] Other Start: 11-20-2021 Office outpatient vi sit 25 minutes Jalyn Schwerer [facility] Start: 11-13-2021 End: 11-13-2021 ambulatory Jalyn Schwerer Other [employer] Other Start: 11-13-2021 Telephone encounter Jalyn Schwerer [facility] Start: 11-10-2021 End: 11-10-2021 ambulatory Tondra Mapus Other [employer] Other Start: 11-10-2021 Telephone encounter Tondra Mapus [facility] Start: 10-31-2021 End: 10-31-2021 ambulatory Lyssa Keerthi Other [employer] Other Start: 10-31-2021 Telephone encounter Lyssa Keerthi [facility] Nephrology Start: 10-27-2021 End: 10-27-2021 ambulatory Jalyn Schwerer Other [employer] Other Start: 10-27-2021 Telephone encounter Jalyn Schwerer [facility] [place] Start: 10-24-2021 End: 10-24-2021 Emergency department patient visit ADELINA Malik AMIR[facility] Start: 10-14-2021 End: 10-14-2021 ambulatory Jalyn Schwerer Other [facility] Other Start: 10-14-2021 Telephone encounter Jalyn Schwerer [facility] Start: 09-26-2021 End: 09-26-2021 ambulatory Tondra Mapus Other [facility] Other Start: 09-26-2021 Telephone encounter Tondra Mapus [facility] Start: 09-24-2021 End: 09-24-2021 ambulatory Jalyn Schwerer Other [facility] Other Start: 09-24-2021 Telephone encounter [facility] Start: 09-24-2021 End: 09-24-2021 Patient encounter procedure Gulshan AG [facility] Start: 09-23-2021 (DM) Diabetes Tondra Mapus [facility] Start: 09-23-2021 End: 09-23-2021 ambulatory Tondra Mapus Other [facility] Other Start: 09-22-2021 End: 09-22-2021 ambulatory Tondra Mapus Other [facility] Other Start: 09-22-2021 Telephone encounter Tondra Mapus [facility] Start: 09-12-2021 End: 09-12-2021 ambulatory Jalyn Schwerer Other [facility] Other Start: 09-12-2021 Telephone encounter Jalyn Schwerer [facility] Start: 09-03-2021 End: 09-03-2021 ambulatory Tondra Mapus Other [facility] Other Start: 09-03-2021 Telephone encounter Tondra Mapus [facility] Start: 08-29-2021 End: 08-29-2021 ambulatory Patti Daley Other [facility] Other Start: 08-29-2021 Telephone encounter Patti Daley [facility] Start: 08-27-2021 (PUMP/CGM) Pump / Sensor Tondra Mapu s [facility] Start: 08-27-2021 End: 08-27-2021 ambulatory Tondra Mapus Other [facility] Other Start: 08-26-2021 End: 08-26-2021 ambulatory Jalyn Schwerer Other [facility] Other Start: 08-26-2021 Telephone encounter Jalyn Schwerer [facility] Start: 08-25-2021 End: 08-25-2021 ambulatory Patti Daley Other [facility] Other Start: 08-25-2021 Telephone encounter Patti Daley [facility] Start: 08-22-2021 End: 08-22-2021 ambulatory Patti Daley Other [facility] Other Start: 08-22-2021 Telephone encounter Patti Daley [facility] Start: 08-21-2021 End: 08-21-2021 ambulatory Jalyn Schwerer Other [facility] Other Start: 08-21-2021 Telephone encounter Jalyn Schwerer [facility] Start: 08-20-2021 End: 08-20-2021 ambulatory Patti Daley Other [facility] Other Start: 08-20-2021 Telephone encounter Patti Daley [facility] G[facility]enter[facility] Start: 08-19-2021 End: 08-19-2021 ambulatory Jalyn Schwerer Other [facility] Other Start: 08-19-2021 Telephone encounter Jalyn Fraserr [facility] [place] Start: 08-13-2021 End: 08-13-2021 Emergency department patient visit REFERRED SELF Facility:[facility] Start: 07-24-2021 End: 07-24-2021 ambulatory Jalyn Schwerer Other [facility] Other Start: 07-24-2021 Telephone encounter Jalyn Yaneserer [facility] [place] Start: 07-21-2021 End: 07-21-2021 ambulatory Jalyn Schwerer Other [facility] Other Start: 07-21-2021 Office outpatient ne w 45 minutes Jalyn Yaneserer [facility] [place] Start: 07-15-2021 End: 07-17-2021 Subsequent hospital visit by physician Adelina Amador MD Work Phone: [facility] Start: 07-01-2021 End: 07-03-2021 Evaluation and management of inpatient Larry Galindo MD Work Phone: [facility] MED SURG Start: 01-29-2021 End: 01-29-2021 Emergency department patient visit Kian Woodson MD Work Phone: [facility] ED Comment on above: Hematemesis with mason sea (Primary Dx); Abdominal pain, epigastric; Other chronic pain; Palliative care patient; Palliative care status Start: 01-27-2021 End: 01-27-2021 Emergency department patient visit Mecca Hale DO Work Phone: [facility] ED Comment on above: Anemia, unspecified type (Primary Dx); Hematemesis with nausea Start: 01-25-2021 End: 01-25-2021 Emergency department patient visit [facility] ED Comment on above: Pain of upper abdome n (Primary Dx); Hyperkalemia Start: 12-06-2020 End: 12-07-2020 Emergency department patient visit Samir Vila MD Work Phone: [facility] ED Comment on above: Upper GI bleeding (P rimary Dx); Blood loss anemia; JUAN (acute kidney injury) (HCC); Hyperkalemia; Hyperglycemia Start: 10-21-2020 End: 10-21-2020 Evaluation and management of inpatient [facility] Start: 10-20-2020 End: 10-21-2020 Evaluation and management of inpatient Britni Helena Kendall DO Work Phone: [facility] Start: 10-20-2020 End: 10-20-2020 Emergency department patient visit [facility] ED Comment on above: Hematemesis, presenc e of nausea not specified (Primary Dx); Anemia, unspecified type Start: 10-15-2020 End: 10-16-2020 Emergency department patient visit Kian Woodson MD Work Phone: [facility] ED Comment on above: Dysuria (Primary Dx) ; Urgency of micturition; Hematemesis, presence of nausea not specified Start: 09-15-2020 End: 09-15-2020 Emergency department patient visit Mynor Kirk Work Phone: [facility] ED Comment on above: Anemia, unspecified type (Primary Dx); Hyperglycemia Start: 09-11-2020 End: 09-12-2020 Emergency department patient visit Ritesh Dowd [facility] ED Comment on above: Hematemesis with mason sea (Primary Dx); Severe anemia; Right upper quadrant abdominal pain Start: 09-10-2020 End: 09-11-2020 Emergency department patient visit Khris Watson Work Phone: [facility] ED Comment on above: Non-intractable vomi ting with nausea, unspecified vomiting type (Primary Dx); Dehydration; Other specified anemias Start: 09-07-2020 End: 09-07-2020 Emergency department patient visit Mynor Kirk Work Phone: [facility] ED Comment on above: Upper GI hemorrhage (Primary Dx); Leukocytosis, unspecified type; Generalized abdominal pain; Anemia, unspecified type Start: 09-02-2020 Emergency department patient visit JENELLE DODSON Facility:[facility] Start: 07-20-2020 End: 07-22-2020 Evaluation and management of inpatient Ritesh Fungzpatrick [facility] ICU Comment on above: Non-surgical abdomin al pain (Primary Dx); Slow transit constipation; Intractable vomiting with nausea, unspecified vomiting type Start: 08-10-2019 End: 08-10-2019 Emergency department patient visit [facility] ED Comment on above: Chronic abdominal pa in (Primary Dx) Start: 02-02-2019 End: 02-03-2019 Emergency department patient visit Tiffany Shrestha Work Phone: [facility] ED Comment on above: Abdominal pain, unsp ecified abdominal location (Primary Dx) Start: 01-28-2019 End: 01-28-2019 Emergency department patient visit [facility] Start: 01-28-2019 End: 01-28-2019 Subsequent hospital visit by physician [facility] Comment on above: Yeast vaginitis (Peggy rachel Dx) Start: 01-13-2019 End: 01-14-2019 Emergency department patient visit [facility] Start: 01-13-2019 End: 01-13-2019 Emergency department patient visit [facility] EMERGENCY DEPT Comment on above: Epigastric pain (Peggy rachel Dx); Non-intractable vomiting with nausea, unspecified vomiting type; Hypertension due to endocrine disorder Start: 12-07-2018 End: 12-07-2018 Emergency department patient visit Physician Briseida Dillard [facility] Start: 06-10-2018 Patient encounter status Tereza hunter [facility] Procedures Date Procedure Procedure Detail Performing Clinician Start: 09-11-2024 GLUCOSE POCT GLUCOMETERS Antonino Delgado MD Work Phone: Start: 09-11-2024 Total hysterectomy v ia vaginal approach Jalyn Yanesmelonie DO Work Phone: Start: 09-11-2024 GLUCOSE POCT GLUCOMETERS Antonino Delgado MD Work Phone: Start: 08-28-2024 Antibody screen Jalyn Yanesmelonie Comment on above: Order Comment: Date of Surgery: [id number] Result Comment: PERF ORMED BY: [facility] [address] [place] [address] PATHOLOGIST BRAZING MACHINE OPERATOR MARICHUY JUÁREZ M.D. Start: 08-04-2024 Antibody screen Jalyn Jonathon Comment on above: Result Comment: PERF ORMED BY: [facility] [address] [place] [address] PATHOLOGIST BRAZING MACHINE OPERATOR MARICHUY JUÁREZ M.D. Start: 05-15-2024 GLUCOSE POCT GLUCOMETERS Daniel Janell Deirdremaco DO Work Phone: Start: 05-15-2024 Lobectomy of thyroid gland Jalyn Holt DO Work Phone: Start: 03-02-2024 Ct abdomen & pelvis w/contrast material Kathy Pearce MD Work Phone: Start: 03-02-2024 Urinalysis microscopic only Kathy Pearce MD Work Phone: Start: 03-02-2024 Urnls dip stick/tabl et rgnt auto w/o microscopy Kathy Pearce MD Work Phone: Start: 03-02-2024 Comprehensive metabo lic panel Kathy Pearce MD Work Phone: Start: 02-27-2024 Comprehensive metabo lic panel Fahad Mtz MD Work Phone: Start: 12-02-2023 Comprehensive metabo lic panel Larry Perez MD Work Phone: Start: 12-02-2023 Urnls dip stick/tabl et rgnt auto w/o microscopy Larry Perez MD Work Phone: Start: 12-02-2023 Ct abdomen & pelvis w/o contrast material Larry Perez MD Work Phone: Start: 10-17-2023 Comprehensive metabo lic panel Fahad Mtz MD Work Phone: Start: 09-06-2023 End: 09-06-2023 Basic metabolic panel calcium total Kateryna J Anguiano DO Work Phone: Start: 09-06-2023 Hepatic function panel Kateryna J Anguiano DO Work Phone: Start: 06-22-2023 OR Infusaport Insertion/Removal (Left) DO Jayln Schwerer Work Phone: Start: 05-19-2023 Plain chest X-ray DO Ma x Pavlock Work Phone: Start: 05-19-2023 X-ray of soft tissue of neck DO Max Pavlock Work Phone: Start: 05-13-2023 Blood culture for ba cteria, including anaerobic screen DO Max Pavlock Work Phone: Start: 05-13-2023 Respiratory Panel (PCR) DO Max Pavlock Work Phone: Start: 05-13-2023 CT of thorax with contrast DO Max Pavlock Work Phone: Start: 02-09-2023 Adult depression scr eening assessment Tereza Trejo [employer] Start: 01-15-2023 CT of abdomen and pe lvis without contrast DO Jalyn Schwerer Work Phone: Start: 12-04-2022 Ecg routine ecg w/le ast 12 lds w/i&r Bindu Eid CARDIOLOGY TECH - ASSISTED LIVING NURSING DIRECTOR Work Phone: Start: 12-04-2022 Comprehensive metabo lic panel Bindu Eid CARDIOLOGY TECH - ASSISTED LIVING NURSING DIRECTOR Work Phone: Start: 10-02-2022 Radiography of sacrococcygeal spine DO Jalyn Yaneserer Work Phone: Start: 10-02-2022 Radiologic examinati on of knee DO Jalyn Schwerer Work Phone: Start: 08-27-2022 Ct abdomen & pelvis w/o contrast material Parth A Hammuda PA-C Work Phone: Start: 08-27-2022 Urinalysis microscopic only Parth A Hammuda PA-C Work Phone: Start: 08-27-2022 Urine test visual color cmprsn meths Parth A Hammuda PA-C Work Phone: Start: 08-27-2022 Basic metabolic pane l calcium total Parth A Hammuda PA-C Work Phone: Start: 07-10-2022 CT of head without contrast DO Max Pavlock Work Phone: Start: 07-10-2022 Plain chest X-ray DO Ma x Pavlock Work Phone: Start: 07-01-2022 Colonoscopy CHERYL Parker Start: 06-30-2022 Antibody screen CHERYL ANDERSON Comment on above: Order Comment: Speci men Type: BLOOD SPECIMENOrdering Facility: [facility] Address: [address] [place] [address] Performed By: #### T SCR ####CC MAIN BLOOD BANKCLIA [id number] [address] Start: 06-27-2022 Antibody screen CHERYL ANDERSON Comment on above: Order Comment: Speci men Type: BLOOD SPECIMENOrdering Facility: [facility] Address: [address] [place] [address] Performed By: #### T SCR ####CC MAIN BLOOD BANKCLIA [id number] [address] Start: 06-25-2022 Transfusion of Nonau tologous Red Blood Cells into Central Vein, Percutaneous Approach JALYN AUGUSTMELONIE Start: 05-31-2022 Radiologic exam abdo men 2 views Kamryn Ruggiero DO Work Phone: Start: 05-31-2022 Comprehensive metabo lic panel Kamryn Ruggiero DO Work Phone: Start: 05-28-2022 Ct abdomen & pelvis w/contrast material Kian Woodson MD Work Phone: Start: 05-28-2022 COVID-19, RAPID Kian Woodson MD Work Phone: Start: 05-28-2022 End: 05-28-2022 Iaadiadoo influenza Kian Woodson MD Work Phone: Start: 05-28-2022 Drug tst prsmv instr mnt chem analyzers pr date Kian Woodson MD Work Phone: Start: 05-28-2022 Urnls dip stick/tabl et rgnt auto w/o microscopy Kian Woodson MD Work Phone: Start: 05-28-2022 End: 05-28-2022 Comprehensive metabolic panel Kian Woodson MD Work Phone: Start: 05-13-2022 Antibody screen CHERYL ANDERSON Comment on above: Order Comment: Speci men Type: BLOOD SPECIMENOrdering Facility: [facility] Address: [address] [place] [address] Performed By: #### T SCR30 ####CC MAIN BLOOD BANKCLIA [id number] [address] Start: 04-13-2022 Urnls dip stick/tabl et rgnt auto w/o microscopy Mynor Kirk MD Work Phone: Start: 04-13-2022 Ct abdomen & pelvis w/o contrast material Mynor Kirk MD Work Phone: Start: 04-13-2022 Comprehensive metabo lic panel Mynor Kirk MD Work Phone: Start: 02-27-2022 CT of abdomen and pe lvis without contrast DO Max Pavlock Work Phone: Start: 02-20-2022 Computed tomography of abdomen and pelvis with contrast DO Max Pavlock Work Phone: Start: 01-02-2022 Radiologic exam colo n single contrast study Cheryl East DO Work Phone: Start: 12-31-2021 Antibody screen CHERYL ANDERSON Comment on above: Order Comment: Speci men Type: BLOOD SPECIMENOrdering Facility: [facility] Address: [address] [place] [address] Performed By: #### T SCR30 ####CC MAIN BLOOD BANKCLIA [id number] [address] Start: 12-31-2021 [employer] [place] [employer] Letty Hernandez PA-C Work Phone: Start: 07-03-2021 Drug screen class list a Staci Pedro CARDIOLOGY TECH - ASSISTED LIVING NURSING DIRECTOR Work Phone: Start: 07-03-2021 Blood count hemoglobin Ihsan Tobias MD Work Phone: Start: 07-03-2021 End: 07-03-2021 Transfusion of packed red blood cells Ihsan Tobias MD Work Phone: Start: 07-03-2021 Blood count complete auto&auto difrntl wbc Staci Pedro CARDIOLOGY TECH - ASSISTED LIVING NURSING DIRECTOR Work Phone: Start: 07-02-2021 Blood count complete auto&auto difrntl wbc Staci Pedro CARDIOLOGY TECH - ASSISTED LIVING NURSING DIRECTOR Work Phone: Start: 07-01-2021 Ecg routine ecg w/le ast 12 lds i&r only Staci Pedro CARDIOLOGY TECH - ASSISTED LIVING NURSING DIRECTOR Work Phone: Start: 07-01-2021 Radiologic exam ches t 2 views Staci Pedro CARDIOLOGY TECH - ASSISTED LIVING NURSING DIRECTOR Work Phone: Start: 07-01-2021 Blood typing serologic abo Staci Pedro CARDIOLOGY TECH - ASSISTED LIVING NURSING DIRECTOR Work Phone: Start: 07-01-2021 Fibrinogen activity Lucy abimbola Pedro CARDIOLOGY TECH - ASSISTED LIVING NURSING DIRECTOR Work Phone: Start: 07-01-2021 VITAMIN B12 & FOLATE Sh anthony Pedro CARDIOLOGY TECH - ASSISTED LIVING NURSING DIRECTOR Work Phone: Start: 01-29-2021 Antibody screen Kian Woodson MD Work Phone: Start: 01-29-2021 Blood typing serologic abo Kian Woodson MD Work Phone: Start: 01-29-2021 Comprehensive metabo lic panel Kian Woodson MD Work Phone: Start: 01-27-2021 Transfusion of packe d red blood cells Mecca Hale DO Work Phone: Start: 01-27-2021 Ecg routine ecg w/le ast 12 lds w/i&r Mecca Hale DO Work Phone: Start: 01-27-2021 Assay of lipase Mecca Hale DO Work Phone: Start: 01-27-2021 Blood typing serologic abo Mecca Hale DO Work Phone: Start: 01-25-2021 Ecg routine ecg w/le ast 12 lds w/i&r Fahad Mtz MD Work Phone: Start: 01-25-2021 BASIC METABOLIC PANE L W/ REFLEX TO MG FOR LOW K Montana Katz [employer] Work Phone: Start: 01-25-2021 Assay of lipase Montana Katz [employer] Work Phone: Start: 01-25-2021 Lactate [Moles/volum e] in Serum or Plasma Montana Katz [employer] Work Phone: Start: 01-25-2021 GLUCOSE, WHOLE BLOOD Ma x L Pavamarjit DO Start: 12-07-2020 Gluc bld gluc mntr d ev cleared fda spec home use Samir Vila MD Work Phone: Start: 12-07-2020 Urinalysis microscopic only Samir Vila MD Work Phone: Start: 12-07-2020 Urnls dip stick/tabl et rgnt auto w/o microscopy Samir Vila MD Work Phone: Start: 12-07-2020 Transfusion of packe d red blood cells Samir Vila MD Work Phone: Start: 12-07-2020 Rhythm ecg 1-3 leads w/interpretation & report Unknown Provider Result Start: 12-07-2020 Blood typing serologic abo Samir Vila MD Work Phone: Start: 12-07-2020 Comprehensive metabo lic panel Samir Vila MD Work Phone: Start: 10-21-2020 Glucose blood reagent strip Britni Kendall DO Work Phone: Start: 10-21-2020 Blood count hemoglobin Staci Karena Denis CARDIOLOGY TECH - ASSISTED LIVING NURSING DIRECTOR Work Phone: Start: 10-21-2020 Glucose blood reagent strip Britni Kendall DO Work Phone: Start: 10-21-2020 Hemoglobin glycosylated a1c Staci Thurston Adeel CARDIOLOGY TECH - ASSISTED LIVING NURSING DIRECTOR Work Phone: Start: 10-20-2020 Transfusion of packe d red blood cells Jocelyne Cedillo PA-C Work Phone: Start: 10-20-2020 Ct thorax w/o & w/co ntrast material Jocelyne Cedillo PA-C Work Phone: Start: 10-20-2020 Blood typing serologic abo Jocelyne Cedillo PA-C Work Phone: Start: 10-20-2020 End: 10-20-2020 Comprehensive metabolic panel Jocelyne Cedillo PA-C Work Phone: Start: 10-16-2020 Comprehensive metabo lic panel Kian Woodson MD Work Phone: Start: 10-16-2020 Urinalysis microscopic only Kian Woodson MD Work Phone: Start: 10-16-2020 Urnls dip stick/tabl et rgnt auto w/o microscopy Kian Woodson MD Work Phone: Start: 09-15-2020 Antibody screen Mynor Kirk Start: 09-15-2020 Assay of lipase Mynor Kirk Work Phone: Start: 09-15-2020 Blood count complete auto&auto difrntl wbc Mynor Kirk Work Phone: Start: 09-15-2020 Blood typing serologic abo Mynor Kirk Work Phone: Start: 09-15-2020 Ketone bodies serum quantitative Mynor Kirk Work Phone: Start: 09-15-2020 Natriuretic peptide Hceikh jayson Kirk Work Phone: Start: 09-15-2020 Prothrombin time Elliottburak Kirk Work Phone: Start: 09-15-2020 Thromboplastin time partial plasma/whole blood Mynor Kirk Work Phone: Start: 09-15-2020 Radiologic exam ches t single view Mynor Kirk Work Phone: Start: 09-15-2020 Ecg routine ecg w/le ast 12 lds w/i&r Mynor Kirk Work Phone: Start: 09-12-2020 Gluc bld gluc mntr d ev cleared fda spec home use Aravind Elsa Rooney Work Phone: Start: 09-12-2020 GLUCOSE, WHOLE BLOOD Mi manan Dowd Start: 09-12-2020 Blood count hemoglobin Aravind Rooney Work Phone: Start: 09-12-2020 End: 09-12-2020 Transfuse erythrocytes [Volume] Ritesh Dowd Start: 09-12-2020 Antibody screen Ritesh Dowd Start: 09-11-2020 Blood count hemoglobin Khris Watson Work Phone: Start: 09-11-2020 Blood count hemoglobin Ritesh Dowd Start: 09-11-2020 Blood typing serologic abo Ritesh Dowd Start: 09-11-2020 Basic metabolic pane l calcium total Ritesh Dowd Start: 09-11-2020 Blood count complete auto&auto difrntl wbc Ritesh Dowd Start: 09-10-2020 Radex abd compl aqt abd w/s/e/d views 1 view ch Khris Watson Work Phone: Start: 09-10-2020 Urine test visual color cmprsn meths Khris [employer] Work Phone: Start: 09-10-2020 Urnls dip stick/tabl et reagent auto microscopy Khris [employer] Work Phone: Start: 09-10-2020 Assay of lipase Khris [employer] Work Phone: Start: 09-10-2020 Blood count complete auto&auto difrntl wbc Khris [employer] Work Phone: Start: 09-10-2020 Comprehensive metabo lic panel Khris [employer] Work Phone: Start: 09-10-2020 Ecg routine ecg w/le ast 12 lds w/i&r Khris [employer] Work Phone: Start: 09-07-2020 Blood count complete auto&auto difrntl wbc Mynor Kirk Work Phone: Start: 09-07-2020 Lactate [Moles/Vol] Cheikh hard [employer] Work Phone: Start: 09-07-2020 End: 09-07-2020 CULTURE, BLOOD 1 Mynor Kirk Work Phone: Start: 09-07-2020 Urnls dip stick/tabl et rgnt auto w/o microscopy Mynor Kirk Work Phone: Start: 09-07-2020 Ct abdomen & pelvis w/contrast material Mynor Kirk Work Phone: Start: 09-07-2020 Antibody screen Mynor Kirk Start: 09-07-2020 Ecg routine ecg w/le ast 12 lds w/i&r Mynor Kirk Work Phone: Start: 09-07-2020 Radiologic exam ches t single view Mynor Kirk Work Phone: Start: 09-07-2020 Assay of lipase Mynor Kirk Work Phone: Start: 09-07-2020 Blood count complete auto&auto difrntl wbc Mynor Kirk Work Phone: Start: 09-07-2020 Blood typing serologic abo Mynor Kirk Work Phone: Start: 09-07-2020 Ketone bodies serum quantitative Mynor Kirk Work Phone: Start: 09-07-2020 Prothrombin time Elliottburak Kirk Work Phone: Start: 09-07-2020 Thromboplastin time partial plasma/whole blood Mynor Kirk Work Phone: Start: 07-22-2020 Radiologic exam abdo men 1 view Staci Pedro Work Phone: Start: 07-22-2020 Assay of amylase Dipakk umar P Tate Work Phone: Start: 07-22-2020 Assay of lipase Dipakku mar P Tate Work Phone: Start: 07-22-2020 Blood count complete auto&auto difrntl wbc Dipakkumar P Tate Work Phone: Start: 07-21-2020 Drug screen class list a Dipakkumar P Tate Work Phone: Start: 07-21-2020 Urine test visual color cmprsn meths Dipakkumar P Tate Work Phone: Start: 07-21-2020 Urnls dip stick/tabl et rgnt auto w/o microscopy Dipakkumar P Tate Work Phone: Start: 07-21-2020 Assay of amylase Dipakk umar P Tate Work Phone: Start: 07-21-2020 Assay of lipase Dipakku mar P Tate Work Phone: Start: 07-21-2020 Assay of triglycerides Dipakkumar P Tate Work Phone: Start: 07-21-2020 Blood count complete auto&auto difrntl wbc Dipakkumar P Tate Work Phone: Start: 07-21-2020 Prothrombin time Dipakk umar P Tate Work Phone: Start: 07-21-2020 Thromboplastin time partial plasma/whole blood Dipakkumar P Tate Work Phone: Start: 07-20-2020 Intermittent pulse oximetry Dipaksuni P Tate Work Phone: Start: 07-20-2020 Ct abdomen & pelvis w/contrast material Ritesh Dowd Start: 07-20-2020 Blood count complete auto&auto difrntl wbc Ritesh Dowd Start: 07-20-2020 Comprehensive metabo lic panel Ritesh Dowd Start: 07-20-2020 Hemoglobin glycosylated a1c Dipfinessekumar P Tate Work Phone: Start: 08-10-2019 Urinalysis microscopic only Jocelyne Mamadou Work Phone: Start: 08-10-2019 Urine test visual color cmprsn meths Jocelyne Mamadou Work Phone: Start: 08-10-2019 Urnls dip stick/tabl et rgnt auto w/o microscopy Jocelyne Mamadou Work Phone: Start: 08-10-2019 Assay of lactate Jocelyne Mamadou Work Phone: Start: 08-10-2019 Assay of lipase [facility] Work Phone: Start: 08-10-2019 Blood count complete automated Jocelyne Cedillo Work Phone: Start: 08-10-2019 Comprehensive metabo lic panel Jocelyne Mamadou Work Phone: Start: 08-10-2019 Ketone bodies serum quantitative Jocelyne Loydcheson Work Phone: Start: 02-03-2019 Radex abd compl aqt abd w/s/e/d views 1 view ch Tiffany Shrestha Work Phone: Start: 02-02-2019 Urinalysis microscopic only Tiffany Shrestha Work Phone: Start: 02-02-2019 Urnls dip stick/tabl et rgnt auto w/o microscopy Tiffany Shrestha Work Phone: Start: 02-02-2019 Assay of lipase Myriam Shrestha Work Phone: Start: 02-02-2019 Assay of magnesium Imeldai noé Shrestha Work Phone: Start: 02-02-2019 BASIC METABOLIC PANE L W/ REFLEX TO MG FOR LOW K Tiffany Shrestha Work Phone: Start: 02-02-2019 Blood count complete auto&auto difrntl wbc Tiffany Shrestha Work Phone: Start: 02-02-2019 Gonadotropin chorion ic quantitative Tiffany Shrestha Work Phone: Start: 02-02-2019 Hepatic function panel Tiffany Shrestha Work Phone: Start: 01-14-2019 ED NURSING COMMUNICATION Physician No Family Start: 01-13-2019 Ecg routine ecg w/le ast 12 lds w/i&r Physician No Family Start: 01-13-2019 Gluc bld gluc mntr d ev cleared fda spec home use Physician No Family Start: 01-13-2019 Antibody bordetella Saulolucy sician No Family Start: 01-13-2019 Assay of lipase Physici an No Family Start: 01-13-2019 Assay of osmolality blood Physician No Family Start: 01-13-2019 Assay of troponin quantitative Physician No Family Start: 01-13-2019 Basic metabolic pane l calcium total Physician No Family Start: 01-13-2019 Blood count complete auto&auto difrntl wbc Physician No Family Start: 01-13-2019 Blood smear peripher al interp phys w/writ report Physician No Family Start: 01-13-2019 Creatinine blood Physic bernardino No Family Start: 01-13-2019 Ecg routine ecg w/le ast 12 lds w/i&r Oliva Shields Work Phone: Start: 01-13-2019 Gluc bld gluc mntr d ev cleared fda spec home use Oliva Shields Work Phone: Start: 01-13-2019 Anion gap [Moles/Vol] J ricky Shields Work Phone: Start: 01-13-2019 Assay of lipase Jair Hunter Shields Work Phone: Start: 01-13-2019 Assay of osmolality blood Oliva Elsa Shields Work Phone: Start: 01-13-2019 Assay of troponin quantitative Oliva Shields Work Phone: Start: 01-13-2019 Basic metabolic pane l calcium total Oliva Shields Work Phone: Start: 01-13-2019 Blood count complete auto&auto difrntl wbc Oliva Shields Work Phone: Start: 01-13-2019 GLOMERULAR FILTRATIO N RATE, ESTIMATED Oliva Elsa Shields Work Phone: Start: 01-13-2019 SCAN OF BLOOD SMEAR Adri valerio Shields Work Phone: Start: 12-07-2018 Antibody bordetella Phy sician No Family Start: 12-07-2018 Assay of lipase Physici an No Family Start: 12-07-2018 Assay of magnesium Phys ician No Family Start: 12-07-2018 Assay of osmolality blood Physician No Family Start: 12-07-2018 Basic metabolic pane l calcium total Physician No Family Start: 12-07-2018 Blood count complete auto&auto difrntl wbc Physician No Family Start: 12-07-2018 Creatinine blood Physic bernardino No Family Start: 12-07-2018 Hepatic function panel Physician No Family Start: 12-07-2018 Ecg routine ecg w/le ast 12 lds w/i&r Physician No Family Acute renal failure syndrome (disorder) [employer] AG Adenoid excision Gulshan VILLALOBOS appendicitis removal Gulshan AG Cholecystectomy Gulshan GREEN RS Diabetes mellitus ty pe 2 (disorder) Gulshan AG foot surgery Gulshan AG gallblader removed Gulshan Maciel ATERS Hemangioma of liver (disorder) [employer] AG Hemoptysis (finding) [employer] AG History of herpes zo ster (situation) [employer] AG Hypertensive disorde r, systemic arterial (disorder) [employer] AG Implantable venous a ccess port (physical object) [employer] AG knee cement [employer]sh[employer] AG Large intestine excision Claudia AG Lower GI series Gulshan GORMAN Pancreatectomy Gulshan DIANE S Screening for occult blood in feces DO Max Pavlock Work Phone: Splenectomy Gulshan AG Tonsillectomy [facility] AG [facility]rine [facility]: Plan of Treatment Date Care Activity Detail Author Start: 02-13-2036 Shingles Vaccine (1 of 2) Shingles Vaccine (1 of 2) [facility] Start: 03-02-2025 GFR test (Diabetes, CKD 3-4, OR last GFR 15-59) GFR test (Diabetes, CKD 3-4, OR last GFR 15-59) [facility] Start: 02-26-2025 GFR test (Diabetes, CKD 3-4, OR last GFR 15-59) GFR test (Diabetes, CKD 3-4, OR last GFR 15-59) [employer] Start: 12-01-2024 GFR test (Diabetes, CKD 3-4, OR last GFR 15-59) GFR test (Diabetes, CKD 3-4, OR last GFR 15-59) [facility] [employer] Start: 10-16-2024 GFR test (Diabetes, CKD 3-4, OR last GFR 15-59) GFR test (Diabetes, CKD 3-4, OR last GFR 15-59) [facility] [employer] Start: 09-25-2024 End: 09-25-2024 Patient encounter procedure [facility] Comment on above: Surgery follow-up; Menometrorrhagia Start: 09-11-2024 [facility] Start: 09-11-2024 Hospital admission [facility] Start: 09-05-2024 GFR test (Diabetes, CKD 3-4, OR last GFR 15-59) GFR test (Diabetes, CKD 3-4, OR last GFR 15-59) [facility] [employer] Start: 07-27-2024 End: 07-27-2025 CBC panel - Blood by Automated count CBC Lab Routine Menometrorrhagia Expected: 07/27/2024 (Approximate), Expires: 07/27/2025 [facility] Work Phone: Comment on above: Expected: 07/27/2024 (Approximate), Expi res: 07/27/2025 Start: 07-27-2024 End: 07-27-2025 Comprehensive metabolic 2000 panel - Serum or Plasma Comprehensive metabolic panel Lab Routine Menometrorrhagia Expected: 07/27/2024 (Approximate), Expires: 07/27/2025 [facility] Comment on above: Expected: 07/27/2024 (Approximate), Expi res: 07/27/2025 Start: 07-27-2024 End: 07-27-2024 Patient encounter procedure 07/27/2024 11:30 AM EST Office Visit [facility] [address] [place] [phone] Antonino Delgado MD [address] [place] [address] Menorrhagia with irregular cycle [facility] Comment on above: Menorrhagia with irregular cycle Start: 07-27-2024 End: 07-27-2024 Professional / ancillary services management 07/27/2024 10:15 AM EST Ancillary Procedure [facility] [address] [place] [id number] Excessive bleeding in premenopausal period; Anemia, unspecified type [facility] Comment on above: Excessive bleeding in premenopausal carlitos od; Anemia, unspecified type Start: 06-21-2024 End: 06-21-2024 Patient encounter procedure 06/21/2024 2:30 PM EST Office Visit [facility] [address] [place] [phone] Daniel Cuevas, DO [address] [place] [address] [facility] Start: 06-18-2024 Adult BMI Screening Adult BMI Screening [facility] Start: 06-18-2024 Tobacco Screening Tobacco Screening [facility] Start: 06-12-2024 End: 05-22-2025 Thyrotropin [Units/volume] in Serum or Plasma [facility] Work Phone: Comment on above: Expected: 06/12/2024 (Approximate), Expi res: 05/22/2025 Start: 06-12-2024 End: 05-22-2025 Triiodothyronine (T3) [Mass/volume] in Serum or Plasma T3 Lab Routine Status post partial thyroidectomy (CMS/HCC) Expected: 06/12/2024 (Approximate), Expires: 05/22/2025 [facility] Comment on above: Expected: 06/12/2024 (Approximate), Expi res: 05/22/2025 Start: 05-24-2024 Adult BMI Screening Adult BMI Screening [facility] Start: 05-24-2024 Tobacco Screening Tobacco Screening [facility] Start: 05-22-2024 End: 05-22-2024 Patient encounter procedure [facility] Comment on above: Arrived Start: 05-17-2024 End: 05-17-2024 Patient encounter procedure 05/17/2024 2:15 PM EST Office Visit [facility] [place] [address] [place] [address] Daniel Cuevas, DO [address] [place] [address] [facility] Start: 05-15-2024 [facility] Start: 04-25-2024 End: 04-25-2025 Basic metabolic 1998 panel - Serum or Plasma Basic metabolic panel Lab Routine Preop testing Expected: 04/25/2024 (Approximate), Expires: 04/25/2025 [facility] Comment on above: Expected: 04/25/2024 (Approximate), Expi res: 04/25/2025 Start: 04-25-2024 End: 04-25-2025 CBC W Auto Differential panel - Blood [facility] Work Phone: Comment on above: Expected: 04/25/2024 (Approximate), Expi res: 04/25/2025 Start: 04-25-2024 End: 04-25-2025 Comprehensive metabolic 2000 panel - Serum or Plasma Comprehensive metabolic panel Lab Routine Preop testing Expected: 04/25/2024 (Approximate), Expires: 04/25/2025 [facility] Comment on above: Expected: 04/25/2024 (Approximate), Expi res: 04/25/2025 Start: 04-25-2024 End: 04-25-2025 ECG 12 lead ECG 12 lead ECG Routine Preop testing Expected: 04/25/2024 (Approximate), Expires: 04/25/2025 [facility] Comment on above: Expected: 04/25/2024 (Approximate), Expi res: 04/25/2025 Start: 04-25-2024 End: 04-25-2025 Prothrombin time (PT) in Blood by Coagulation assay Protime-INR Lab Routine Preop testing Expected: 04/25/2024 (Approximate), Expires: 04/25/2025 [facility] Comment on above: Expected: 04/25/2024 (Approximate), Expi res: 04/25/2025 Start: 03-17-2024 Patient referral [facility] Work Phone: Start: 02-10-2024 [facility] Start: 02-06-2024 COVID-19 Vaccine ( season) COVID-19 Vaccine () [employer] Start: 01-06-2024 Influenza vaccination [employer] Start: 12-05-2023 GFR test (Diabetes, CKD 3-4, OR last GFR 15-59) GFR test (Diabetes, CKD 3-4, OR last GFR 15-59) [employer] Start: 08-28-2023 GFR test (Diabetes, CKD 3-4, OR last GFR 15-59) GFR test (Diabetes, CKD 3-4, OR last GFR 15-59) [employer] Start: 07-20-2023 Lipid panel Lipids [employer] Start: 07-20-2023 Urine screening for protein Diabetic Alb to Cr ratio (uACR) test [employer] Start: 07-15-2023 End: 07-15-2023 Clinical Support 07/15/2023 8:35 AM EST Clinical Support Laurence Robledo [facility] [address] [place] [phone] Laurence Robledo [facility] Start: 07-09-2023 End: 07-09-2023 [facility] Start: 07-08-2023 End: 07-08-2023 Clinical Support 07/08/2023 8:00 AM EST Clinical Support Laurence Robledo [facility] [address] [place] [phone] Laurence Robledo [facility] - Medical Oncology Start: 07-02-2023 HEMOGLOBIN/HEMATOCRIT HEMOGLOBIN/HEMATOCRIT [facility] Start: 07-02-2023 SERUM CREATININE SERUM CREATININE [facility] Start: 07-01-2023 End: 07-01-2023 Clinical Support 07/01/2023 8:00 AM EST Clinical Support Laurence L Willie [facility] - Medical Oncology [address] [place] [address] Laurence L Willie [facility] Start: 06-24-2023 3 comp foot exam completed DIABETIC FOOT EXAM [facility] Start: 06-22-2023 End: 06-22-2023 [facility] Start: 06-18-2023 End: 06-18-2023 Patient encounter procedure [facility] - Interventional Radiology Start: 06-08-2023 End: 06-08-2024 Guidance for removal of CV catheter with port from Chest IR remove port Imaging Routine Difficult intravenous access Expected: 06/08/2023, Expires: 06/08/2024 [facility] [employer] Work Phone: Comment on above: Expected: 06/08/2023, Expires: Start: 06-08-2023 End: 06-08-2024 IR PICC line PICC RN without port pump more than 5 years without guidance IR PICC line PICC RN without port pump more than 5 years without guidance Imaging Routine Difficult intravenous access Expected: 06/08/2023, Expires: 06/08/2024 [employer] Comment on above: Expected: 06/08/2023, Expires: Start: 06-07-2023 Annual Wellness Visit (Medicare Advantage) Annual Wellness Visit (Medicare Advantage) [facility] [employer] Start: 05-31-2023 GFR test (Diabetes, CKD 3-4, OR last GFR 15-59) GFR test (Diabetes, CKD 3-4, OR last GFR 15-59) [employer] Start: 05-19-2023 [facility] Start: 05-15-2023 HEMOGLOBIN/HEMATOCRIT HEMOGLOBIN/HEMATOCRIT [facility] Start: 05-15-2023 SERUM CREATININE SERUM CREATININE [facility] Start: 05-13-2023 Bacteria identified in Blood by Culture [facility] Start: 05-13-2023 Hemoglobin A1c measurement A1C test (Diabetic or Prediabetic) [facility] [employer] Start: 05-13-2023 SERUM CREATININE SERUM CREATININE [facility] Start: 02-05-2023 Influenza vaccination [facility] Start: 01-16-2023 HEMOGLOBIN/HEMATOCRIT HEMOGLOBIN/HEMATOCRIT [facility] Start: 01-05-2023 Influenza vaccination Flu vaccine (Season Ended) [facility] Start: 12-31-2022 HEMOGLOBIN/HEMATOCRIT HEMOGLOBIN/HEMATOCRIT [facility] Start: 12-31-2022 SERUM CREATININE SERUM CREATININE [facility] Start: 09-04-2022 Lipid panel Lipids [facility] Start: 08-11-2022 Hemoglobin A1c/Hemoglobin.total in Blood HBA1C [facility] Start: 07-15-2022 Creatinine measurement Creatinine monitoring [facility] Start: 07-15-2022 Depression Monitoring Depression Monitoring [facility] Start: 07-15-2022 Potassium monitoring Potassium monitoring [facility] Start: 07-01-2022 Creatinine measurement Creatinine monitoring [facility] Start: 07-01-2022 Potassium monitoring Potassium monitoring [facility] Start: 05-13-2022 End: 07-13-2022 CBC panel - Blood by Automated count [facility] Work Phone: Comment on above: Expected: 05/13/2022, Expires: 3 Start: 05-13-2022 End: 07-13-2022 Comprehensive metabolic 2000 panel - Serum or Plasma [facility] Work Phone: Comment on above: Expected: 05/13/2022, Expires: 3 Start: 05-13-2022 End: 07-13-2022 CONFIRM BLOOD TYPE [facility] Work Phone: Comment on above: Expected: 05/13/2022, Expires: 3 Start: 05-13-2022 End: 07-13-2022 Hemoglobin A1c in Blood HGB A1C Lab Routine Type 2 diabetes mellitus with other specified complication, with long-term current use of insulin (HCC) Expected: 05/13/2022, Expires: 07/13/2022 [facility] Work Phone: Comment on above: Expected: 05/13/2022, Expires: 3 Start: 05-13-2022 End: 07-13-2022 TYPE AND SCREEN,30 DAY [facility] Work Phone: Comment on above: Expected: 05/13/2022, Expires: Start: 02-18-2022 End: 04-20-2022 CBC panel - Blood by Automated count CBC Lab Routine Constipation, unspecified constipation type Expected: 02/18/2022 (Approximate), Expires: 04/20/2022 [facility] Work Phone: Comment on above: Expected: 02/18/2022 (Approximate), Expi res: 04/20/2022 Start: 02-18-2022 End: 04-20-2022 Comprehensive metabolic 2000 panel - Serum or Plasma COMP METABOLIC PANEL Lab Routine Constipation, unspecified constipation type Expected: 02/18/2022 (Approximate), Expires: 04/20/2022 [facility] Work Phone: Comment on above: Expected: 02/18/2022 (Approximate), Expi res: 04/20/2022 Start: 02-18-2022 End: 04-20-2022 CONFIRM BLOOD TYPE CONFIRM BLOOD TYPE Blood Bank Routine Constipation, unspecified constipation type Expected: 02/18/2022 (Approximate), Expires: 04/20/2022 [facility] Work Phone: Comment on above: Expected: 02/18/2022 (Approximate), Expi res: 04/20/2022 Start: 02-18-2022 End: 04-20-2022 TYPE AND SCREEN,30 DAY TYPE AND SCREEN,30 DAY Blood Bank Routine Constipation, unspecified constipation type Expected: 02/18/2022 (Approximate), Expires: 04/20/2022 [facility] Work Phone: Comment on above: Expected: 02/18/2022 (Approximate), Expi res: 04/20/2022 Start: 02-05-2022 Influenza vaccination INFLUENZA (#1) [facility] Start: 01-29-2022 Creatinine measurement Creatinine monitoring [employer] Phone: Start: 01-29-2022 Potassium monitoring Potassium monitoring [employer] Phone: Start: 01-27-2022 Creatinine measurement Creatinine monitoring [employer] Phone: Start: 01-27-2022 Potassium monitoring Potassium monitoring [employer] Phone: Start: 01-25-2022 Creatinine measurement Creatinine monitoring [employer] Phone: Start: 01-25-2022 Potassium monitoring Potassium monitoring [employer] Phone: Start: 01-05-2022 Influenza vaccination Flu vaccine (#1) ANIBAL BARNES [employer] Start: 01-01-2022 End: 01-01-2023 SARS-CoV-2 (COVID-19) RNA [Presence] in Respiratory specimen by DAVIS with probe detection PRE-PROCEDURE & PRE-OPERATIVE COVID Microbiology Routine Rectal prolapse Expected: 01/01/2022, Expires: 01/01/2023 [facility] Work Phone: Comment on above: Expected: 01/01/2022, Expires: Start: 12-07-2021 Creatinine measurement Creatinine monitoring [employer] Phone: Start: 12-07-2021 Potassium monitoring Potassium monitoring [employer] Phone: Start: 10-21-2021 Hemoglobin A1c measurement A1C test (Diabetic or Prediabetic) [employer] Start: 10-20-2021 Creatinine measurement Creatinine monitoring [employer] Phone: Start: 10-20-2021 Potassium monitoring Potassium monitoring [employer] Phone: Start: 10-16-2021 Creatinine measurement Creatinine monitoring [employer] Phone: Start: 10-16-2021 Potassium monitoring Potassium monitoring [employer] Phone: Start: 09-15-2021 Creatinine measurement Creatinine monitoring [employer] Phone: Start: 09-15-2021 Potassium monitoring Potassium monitoring [employer] Phone: Start: 09-11-2021 Creatinine measurement Creatinine monitoring [employer] Phone: Start: 09-11-2021 Potassium monitoring Potassium monitoring [employer] Phone: Start: 09-10-2021 Creatinine measurement Creatinine monitoring [employer] Phone: Start: 09-10-2021 Potassium monitoring Potassium monitoring [employer] Phone: Start: 09-07-2021 Creatinine measurement Creatinine monitoring [employer] Phone: Start: 09-07-2021 Potassium monitoring Potassium monitoring [employer] Phone: Start: 07-28-2021 End: 07-28-2021 Patient encounter procedure 07/28/2021 Office Visit Family Medicine Gase, Adelina Malik MD [address] [place] [phone] [facility] [employer] [facility] Start: 07-21-2021 End: 07-21-2021 Patient encounter procedure 07/21/2021 Office Visit Cardiology Anum Sandoval PA-C [address] [place] [address] [facility] [employer] [facility] Start: 07-20-2021 Creatinine measurement Creatinine monitoring [employer] Phone: Start: 07-20-2021 HbA1c (Bld) [Mass fraction] A1C test (Diabetic or Prediabetic) [employer] Phone: Start: 07-20-2021 Hemoglobin A1c measurement A1C test (Diabetic or Prediabetic) [employer] Phone: Start: 07-20-2021 Potassium monitoring Potassium monitoring [employer] Phone: Start: 07-10-2021 End: 07-10-2021 Patient encounter procedure [employer] [facility] Start: 06-07-2021 DEPRESSION ASSESSMENT DEPRESSION ASSESSMENT [facility] Start: 02-05-2021 Influenza vaccination [employer] Start: 07-20-2020 Annual Wellness Visit (AWV) Annual Wellness Visit (AWV) [employer] Phone: Start: 02-06-2020 [facility] Start: 02-03-2020 Creatinine monitoring Creatinine monitoring [place], [place] Start: 02-03-2020 Potassium monitoring Potassium monitoring [place], [place] Start: 01-14-2020 Creatinine monitoring Creatinine monitoring [place], [place] Start: 01-14-2020 Potassium monitoring Potassium monitoring [place] Start: 12-08-2019 Creatinine monitoring Creatinine monitoring [place], [place] Start: 12-08-2019 Potassium monitoring Potassium monitoring [place] Start: 02-05-2019 Influenza vaccination Flu vaccine (#1) [place] Start: 12-02-2016 A1C test (Diabetic or Prediabetic) A1C test (Diabetic or Prediabetic) [place] Start: 02-13-2016 HPV TESTING HPV TESTING [facility] Start: 02-13-2016 Screening for malignant neoplasm of cervix [facility] Start: 07-03-2015 Hepatitis B surface antibody level LDL CHOLESTEROL [facility] Start: 01-22-2015 Lipid panel [facility] Start: 01-22-2015 Lipid screen Lipid screen [place] Start: 10-01-2014 Hemoglobin A1c/Hemoglobin.total in Blood HBA1C [facility] Start: 07-21-2014 PNEUMOCOCCAL (2 - PCV) PNEUMOCOCCAL (2 - PCV) [facility] Start: 07-21-2014 Pneumococcal 0-64 years Vaccine (2 of 3 - PCV13) Pneumococcal 0-64 years Vaccine (2 of 3 - PCV13) [facility] [employer] Phone: Start: 07-21-2014 Pneumococcal 0-64 years Vaccine (2 of 4 - PCV13) Pneumococcal 0-64 years Vaccine (2 of 4 - PCV13) [facility] Start: 07-21-2014 Pneumococcal 0-64 years Vaccine (3 of 3 - PCV) Pneumococcal 0-64 years Vaccine (3 of 3 - PCV) [facility] Start: 2007 Cervical cancer screen Cervical cancer screen [place], [place] Start: 2007 PAP TESTING PAP TESTING [facility] Start: 09-08-2007 Screening for malignant neoplasm of cervix [facility] Start: 2005 DTaP,Tdap and Td Vaccines (1 - Tdap) DTaP,Tdap and Td Vaccines (1 - Tdap) [facility] Start: 2005 DTaP/Tdap/Td vaccine (1 - Tdap) DTaP/Tdap/Td vaccine (1 - Tdap) [facility] Start: 2005 HEPATITIS B (1 of 3 - Risk 3-dose series) HEPATITIS B (1 of 3 - Risk 3-dose series) [facility] Start: 2005 Hepatitis B vaccine (1 of 3 - 19+ 3-dose series) Hepatitis B vaccine (1 of 3 - 19+ 3-dose series) [facility] Start: 2005 Hepatitis B Vaccine (1 of 3 - Risk 3-dose series) Hepatitis B Vaccine (1 of 3 - Risk 3-dose series) [facility] Start: 2005 Shingles vaccine (1 of 2) Shingles vaccine (1 of 2) [facility] Start: 2005 Urine microalbumin profile DTAP,TDAP,TD (1 - Tdap) [facility] Start: 02-13-2004 ANNUAL PCP TEAM CHRONIC DISEASE VISIT ANNUAL PCP TEAM CHRONIC DISEASE VISIT [facility] Start: 02-13-2004 BP CONTROLLED (<130/80) BP CONTROLLED (<130/80) [facility] Start: 02-13-2004 Diabetic foot examination Diabetic Foot Exam [facility] Start: 02-13-2004 Diabetic microalbuminuria test Diabetic microalbuminuria test [facility] [place] Start: 02-13-2004 Diabetic retinal exam Diabetic retinal exam [facility] Start: 02-13-2004 Glaucoma screening Diabetic retinal exam [facility] Start: 02-13-2004 HEPATITIS C SCREENING HEPATITIS C SCREENING [facility] Start: 02-13-2004 HIV SCREENING HIV SCREENING [facility] Start: 02-13-2004 Urine screening for protein Diabetic Alb to Cr ratio (uACR) test [facility] Start: 2002 COVID-19 Vaccine (1 of 2) COVID-19 Vaccine (1 of 2) [facility] Work Phone: Start: 2002 COVID-19 Vaccine (1) COVID-19 Vaccine (1) [facility] [employer] Phone: Start: 2001 HIV screen HIV screen [place], [place] Start: 2001 HIV screening HIV screen [facility] Start: 1999 Varicella Vaccine (1 of 2 - 13+ 2-dose series) Varicella Vaccine (1 of 2 - 13+ 2-dose series) [facility] Start: 1998 Adult depression screening assessment DEPRESSION SCREENING [facility] Start: 1998 COVID-19 Vaccine (1) COVID-19 Vaccine (1) [facility] [employer] Phone: Start: 1998 Depression Monitoring Depression Monitoring [facility] Start: 1997 DTaP/Tdap/Td vaccine (1 - Tdap) DTaP/Tdap/Td vaccine (1 - Tdap) [place] Start: 02-13-1996 [object Object] Diabetic foot exam [facility] Start: 02-13-1996 Diabetic foot examination Diabetic foot exam [facility] Start: 02-13-1996 Diabetic retinal exam Diabetic retinal exam [place], [place] Start: 02-13-1996 Hepatitis B screening URINE ALBUMIN:CREATININE RATIO [facility] Start: 02-13-1996 Hepatitis C antibody, confirmatory test DILATED RETINAL EXAM [facility] Start: 02-13-1996 Meningococcal B vaccine (1 of 4 - Increased Risk Bexsero 2-dose series) Meningococcal B vaccine (1 of 4 - Increased Risk Bexsero 2-dose series) [facility] Start: 02-13-1996 Meningococcal B vaccine (1 of 4 - Increased Risk) Meningococcal B vaccine (1 of 4 - Increased Risk) [facility] Start: 1991 COVID-19 Vaccine (1) COVID-19 Vaccine (1) [facility] Start: 02-13-1988 Meningococcal (ACWY) vaccine (1 - Risk 2-dose series) Meningococcal (ACWY) vaccine (1 - Risk 2-dose series) [facility] Start: 05-14-1987 Hib vaccine (1 of 1 - Risk 1-dose series) Hib vaccine (1 of 1 - Risk 1-dose series) [facility] Start: 1987 Varicella vaccine (1 of 2 - 2-dose childhood series) Varicella vaccine (1 of 2 - 2-dose childhood series) [employer] Start: 1986 Meningococcal (ACWY) vaccine (1 - Risk start 2-23 months series) Meningococcal (ACWY) vaccine (1 - Risk start 2-23 months series) [facility] Need Fixed Start: 1986 COVID-19 VACCINE (#1) COVID-19 VACCINE (#1) [facility] Start: 1986 Meningococcal (ACWY) vaccine (1 - Risk start before 7 months 4-dose series) Meningococcal (ACWY) vaccine (1 - Risk start before 7 months 4-dose series) [employer] Phone: Start: 1986 Glaucoma screening Diabetic Ophthalmology Exam [facility] Start: 1986 HEPATITIS B (1 of 3 - 3-dose series) HEPATITIS B (1 of 3 - 3-dose series) [facility] Start: 1986 Hepatitis B vaccine (1 of 3 - 3-dose series) Hepatitis B vaccine (1 of 3 - 3-dose series) [facility] ADULT [place] [facility] ADULT [place] ANORECT[place] Endoscopy Routine Rectal prolapse 12/31/2021 [facility] Work Phone: Amylase Amylase Lab Rout ine Daily until discontinued starting 07/21/2020, 2 completed [employer] Phone: Comment on above: Daily until discontinued starting 2020, 2 completed End: 07-03-2021 aPTT in Blood by Coagulation assay PTT Lab STAT One Time for 1 Occurrences starting 07/03/2021 until 07/03/2021 [employer] Phone: Comment on above: One Time for 1 Occurrences starting 06/08 until 07/03/2021 Bacteria identified in Urine by Culture [facility] End: 10-22-2020 Basic Metabolic Panel w/ Reflex to MG Basic Metabolic Panel w/ Reflex to MG Lab Routine Tomorrow AM for 1 Occurrences starting 10/22/2020 until 10/22/2020 [employer] Work Phone: Comment on above: Tomorrow AM for 1 Occurrences starting 0 10/22/2020 until 10/22/2020 Basophils [#/volume] in Blood by Automated count [facility] Basophils/100 leukoc ytes in Blood by Automated count [facility] End: 07-24-2020 CBC auto differential CBC auto differential Lab Routine Daily for 4 Occurrences starting 07/21/2020 until 07/24/2020, 2 completed [employer] Work Phone: Comment on above: Daily for 4 Occurrences starting 021 until 07/24/2020, 2 completed CBC W Auto Different ial panel - Blood CBC Auto Differential Lab Routine Daily until discontinued starting 07/02/2021, 2 completed [employer] Work Phone: Comment on above: Daily until discontinued starting 2021, 2 completed Culture, Blood 1 [employer] Work Phone: End: 07-21-2020 Culture, Urine Culture, Urine Microbiology Routine One Time for 1 Occurrences starting 07/21/2020 until 07/21/2020 [employer] Phone: Comment on above: One Time for 1 Occurrences starting 07/08 until 07/21/2020 Culture, Urine [employer] Work Phone: End: 10-16-2020 Culture, Urine Culture, Urine Microbiology Routine One Time for 1 Occurrences starting 10/16/2020 until 10/16/2020 [employer] Phone: Comment on above: One Time for 1 Occurrences starting 10/05 until 10/16/2020 End: 02-18-2023 ECG COMPLETE ECG COMPLETE ECG Routine Constipation, unspecified constipation type 1 Occurrences starting 02/18/2022 until 02/18/2023 [facility] Work Phone: Comment on above: 1 Occurrences starting 02/18/2022 until 02/18/2023 EKG 12 Lead EKG 12 Lead ECG STAT 12/04/2022 9:08 PM EDT ANIBAL BARNES [employer] Work Phone: EKG Emergency [employer]- [place], [place] Eosinophils [#/volum e] in Blood [facility] Eosinophils/100 leukocytes in Blood by Automated count [facility] H&P for surgery H&P FOR SURGERY Procedures Routine Constipation, unspecified constipation type Ordered: 02/18/2022 [facility] Work Phone: Comment on above: Ordered: 02/18/2022 End: 10-27-2020 Hemoglobin and Hematocrit, Blood Hemoglobin and Hematocrit, Blood Lab Timed Every 6 Hours (Lab) for 7 Days starting 10/21/2020 until 10/27/2020, 1 completed [employer] Work Phone: Comment on above: Every 6 Hours (Lab) for 7 Days starting 10/21/2020 until 10/27/2020, 1 completed Hemoglobin and Hematocrit, Blood, Post Transfusion [employer] Phone: Comment on above: Post Transfusion Post Transfusion Post T ransfustion for 1 Occurrences starting 09/11/2020 Post Transfusion Pos t Transfusion Post Transfustion for 1 Occurrences starting 10/20/2020 Hemoglobin and Hematocrit, Blood, Post Transfusion [employer] Phone: Comment on above: Post Transfusion Post Transfusion Post T ransfustion for 1 Occurrences starting 07/03/2021 Post Transfusion Pos t Transfusion Post Transfustion until discontinued starting 07/03/2021 End: 03-02-2024 Hepatitis Panel, Acute [facility] [employer] Comment on above: One Time for 1 Occurrences starting 02/06 until 03/02/2024 End: 10-21-2020 Initiate RT Protocol Initiate RT Protocol Respiratory Care Routine Continuous until discontinued starting 10/21/2020 [employer] Phone: Comment on above: Continuous until discontinued starting 0 10/21/2020 End: 07-01-2021 Intermittent pulse oximetry Pulse Oximetry Spot Check Respiratory Care Routine One Time for 1 Occurrences starting 07/01/2021 until 07/01/2021 [employer] Phone: Comment on above: One Time for 1 Occurrences starting 06/08 until 07/01/2021 End: 10-22-2020 Iron and TIBC Iron and TIBC Lab Routine Tomorrow AM for 1 Occurrences starting 10/22/2020 until 10/22/2020 [employer] Phone: Comment on above: Tomorrow AM for 1 Occurrences starting 0 10/22/2020 until 10/22/2020 Lipase Lipase Lab Routi ne Daily until discontinued starting 07/21/2020, 2 completed [employer] Phone: Comment on above: Daily until discontinued starting 2020, 2 completed Lymphocytes [#/volum e] in Blood by Automated count [facility] Lymphocytes/100 leukocytes in Blood by Automated count [facility] Monocytes [#/volume] in Blood by Automated count [facility] Monocytes/100 leukoc ytes in Blood by Automated count [facility] Nebulizer therapy HHN Treatment Respiratory Care Routine As directed - RT (PRN) until discontinued starting 10/21/2020 [employer] Phone: Comment on above: As directed - RT (PRN) until discontinue d starting 10/21/2020 Neutrophils [#/volum e] in Blood by Automated count [facility] Neutrophils/100 leukocytes in Blood by Automated count [facility] Nucleated erythrocyt es [Presence] in Blood by Automated count [facility] Oxygen therapy [Mini mum Data Set] [employer] Phone: Comment on above: Daily until discontinued starting 2020 Daily until disconti nued starting 10/21/2020 Oxygen therapy [Mini mum Data Set] Initiate Oxygen Therapy Protocol Respiratory Care Routine Daily until discontinued starting 07/01/2021 [employer] Phone: Comment on above: Daily until discontinued starting 2021 Patient Education [facility] Work Phone: Patient referral [facility] Work Phone: POCT glucose [employer] Phone: Comment on above: 4X Daily (AC & HS) until discontinued st arting 07/20/2020 As Needed until disc ontinued starting 07/20/2020 As Needed until disc ontinued starting 10/21/2020 4X Daily (AC & HS) u ntil discontinued starting 10/21/2020 End: 05-31-2022 , Urine , Urine Lab STAT One Time for 1 Occurrences starting 05/31/2022 until 05/31/2022 [employer] Phone: Comment on above: One Time for 1 Occurrences starting 05/08 until 05/31/2022 End: 02-27-2024 , Urine , Urine Lab STAT One Time for 1 Occurrences starting 02/27/2024 until 02/27/2024 [employer] Comment on above: One Time for 1 Occurrences starting 02/06 until 02/27/2024 End: 09-11-2020 PREPARE RBC (CROSSMATCH), 1 Units PREPARE RBC (CROSSMATCH), 1 Units Blood Bank STAT Once for 1 Occurrences starting 09/11/2020 until 09/11/2020 [employer] Phone: Comment on above: Once for 1 Occurrences starting 09/12/19 until 09/11/2020 End: 10-20-2020 PREPARE RBC (CROSSMATCH), 1 Units PREPARE RBC (CROSSMATCH), 1 Units Blood Bank Non-Stat Once for 1 Occurrences starting 10/20/2020 until 10/20/2020 [employer] Phone: Comment on above: Once for 1 Occurrences starting 10/21/19 until 10/20/2020 End: 12-07-2020 PREPARE RBC (CROSSMATCH), 1 Units PREPARE RBC (CROSSMATCH), 1 Units Blood Bank Non-Stat Once for 1 Occurrences starting 12/07/2020 until 12/07/2020 [employer] Phone: Comment on above: Once for 1 Occurrences starting 12/08/19 until 12/07/2020 End: 07-03-2021 PREPARE RBC (CROSSMATCH), 1 Units [employer] Phone: Comment on above: Once for 1 Occurrences starting 07/03/19 until 07/03/2021 End: 01-27-2021 PREPARE RBC (CROSSMATCH), 2 Units PREPARE RBC (CROSSMATCH), 2 Units Blood Bank STAT Once for 1 Occurrences starting 01/27/2021 until 01/27/2021 [employer] Phone: Comment on above: Once for 1 Occurrences starting 01/28/20 until 01/27/2021 End: 07-03-2021 Protime-INR Protime-INR Lab STAT One Time for 1 Occurrences starting 07/03/2021 until 07/03/2021 [employer] Phone: Comment on above: One Time for 1 Occurrences starting 06/08 until 07/03/2021 REFER FOR ADMIT INTERVIEW REFER FOR ADMIT INTERVIEW Procedures Routine Rectal prolapse Ordered: 01/01/2022 [employer] Phone: Comment on above: Ordered: 01/01/2022 REFER FOR ADMIT INTERVIEW REFER FOR ADMIT INTERVIEW Procedures Routine Constipation, unspecified constipation type Ordered: 02/18/2022 [employer] Phone: Comment on above: Ordered: 02/18/2022 Respiratory care evaluation only Respiratory care evaluation only Respiratory Care Routine As Needed until discontinued starting 10/21/2020 [employer] Phone: Comment on above: As Needed until discontinued starting Spirometry panel Incentive pavel metry Respiratory Care Routine Every 2hr while awake until discontinued starting 07/20/2020 [employer] Phone: Comment on above: Every 2hr while awake until discontinued starting 07/20/2020 Transfuse RBC Transfuse RBC Nu rsing Transfusion Routine 01/27/2021 7:47 AM EDT [employer] Phone: TYPE AND SCREEN [employer] Phone: End: 07-03-2021 TYPE AND SCREEN TYPE AND SCREEN Blood Bank Routine One Time for 1 Occurrences starting 07/03/2021 until 07/03/2021 [employer] Phone: Comment on above: One Time for 1 Occurrences starting 06/08 until 07/03/2021 TYPE AND SCREEN TYPE AND SCREEN Blood Bank Routine 07/01/2021 5:00 PM ERICKSON [employer] Phone: End: 01-25-2021 Urinalysis Reflex to Culture Urinalysis Reflex to Culture Lab STAT One Time for 1 Occurrences starting 01/25/2021 until 01/25/2021 [employer] Work Phone: Comment on above: One Time for 1 Occurrences starting 01/06 until 01/25/2021 End: 05-31-2022 Urinalysis with Microscopic Urinalysis with Microscopic Lab STAT One Time for 1 Occurrences starting 05/31/2022 until 05/31/2022 [employer] Work Phone: Comment on above: One Time for 1 Occurrences starting 05/08 until 05/31/2022 End: 02-27-2024 Urinalysis with Microscopic Urinalysis with Microscopic Lab STAT One Time for 1 Occurrences starting 02/27/2024 until 02/27/2024 [employer] Comment on above: One Time for 1 Occurrences starting 02/06 until 02/27/2024 End: 02-27-2024 Urinalysis with Reflex to Culture Urinalysis with Reflex to Culture Lab Routine One Time for 1 Occurrences starting 02/27/2024 until 02/27/2024 [employer] Comment on above: One Time for 1 Occurrences starting 02/06 until 02/27/2024 US Thyroid gland [facility] End: 02-08-2023 XR COLONIC TRANSIT IMAGE 1 XR COLONIC TRANSIT IMAGE 1 Radiology Routine Constipation, unspecified constipation type 1 Occurrences starting 01/09/2022 until 02/08/2023 [facility] Work Phone: Comment on above: 1 Occurrences starting 01/09/2022 until 02/08/2023 End: 02-25-2023 XR COLONIC TRANSIT IMAGE 1 XR COLONIC TRANSIT IMAGE 1 Radiology Routine Constipation, unspecified constipation type 1 Occurrences starting 01/26/2022 until 02/25/2023 [facility] Work Phone: Comment on above: 1 Occurrences starting 01/26/2022 until 02/25/2023 End: 02-08-2023 XR COLONIC TRANSIT IMAGE 2 XR COLONIC TRANSIT IMAGE 2 Radiology Routine Constipation, unspecified constipation type 1 Occurrences starting 01/09/2022 until 02/08/2023 [facility] Work Phone: Comment on above: 1 Occurrences starting 01/09/2022 until 02/08/2023 End: 02-25-2023 XR COLONIC TRANSIT IMAGE 2 XR COLONIC TRANSIT IMAGE 2 Radiology Routine Constipation, unspecified constipation type 1 Occurrences starting 01/26/2022 until 02/25/2023 [facility] Work Phone: Comment on above: 1 Occurrences starting 01/26/2022 until 02/25/2023 End: 02-08-2023 XR COLONIC TRANSIT IMAGE 3 XR COLONIC TRANSIT IMAGE 3 Radiology Routine Constipation, unspecified constipation type 1 Occurrences starting 01/09/2022 until 02/08/2023 [facility] Work Phone: Comment on above: 1 Occurrences starting 01/09/2022 until 02/08/2023 End: 02-25-2023 XR COLONIC TRANSIT IMAGE 3 XR COLONIC TRANSIT IMAGE 3 Radiology Routine Constipation, unspecified constipation type 1 Occurrences starting 01/26/2022 until 02/25/2023 [facility] Work Phone: Comment on above: 1 Occurrences starting 01/26/2022 until 02/25/2023 [facility] Immunizations Immunization Date Immunization Notes Care Provider Crow avalos 07-21-2013 pneumococcal polysaccharide vaccine, 23 valent Jalyn Holt Other [facility] 06-07-2009 pneumococcal polysaccharide vaccine, 23 valent Tereza Venia [facility] 10-20-2005 tetanus toxoid, adsorbed Tereza Venia [facility] 01-30-1998 measles, mumps and rubella virus vaccine Tereza Trejo [facility] NEGATED: Highlighted row has not occurred!06-02-2018 influenza, injectable, quadrivalent, preservative free Tereza Trejo [facility] Comment on above: Deferred: Patient de cision NEGATED: Highlighted row has not occurred!12-25-2014 [facility]enza [facility] ([facility]: Deferred: Other - DE FERRED NEGATED: Highlighted row has not occurred!04-05-2012 influenza virus vaccine, split virus (incl. purified surface antigen) [facility]: Deferred: Other NEGATED: Highlighted row has not occurred!04-05-2012 pneumococcal polysaccharide vaccine, 23 valent [facility] Comment on above: Deferred: Other Payers Date Payer Category Payer Self-pay [id number] 01-03-2024 Unknown [id number] 06-07-2021 Medicare ANTHEM MEDICARE ANTHEM MEDICARE ADVANTAGE [id number] 06/07/2021-Present [phone] [address] [place] [address] [id number]. 7.3.109490.315 06-07-2021 Medicare (Managed Care) [facility] [id number]. [id number] 06-07-2021 Unknown ANTHEM BLUE CROS S AND BLUE SHIELD ANTHEM MEDIBLUE HMO [id number] 06/07/2021-Present [phone] [address] [place] [address] HMO [id number] 1.2.840.238572.1.13.159.2. 7.3.210754.315 06-13-2016 Unknown ANTHEM ANTHEM BC BS FEP PPO [id number] 06/13/2016-Present [phone] [address] [place] [address] PPO [id number] 1.2.840.245868.1.13.159.2. 7.3.078649.315 06-13-2016 Unknown 1.2.840.689924. 1.13.159.2. 7.3.287547.315 10-06-2015 Medicare MEDICARE MEDICAR E PART A AND B xxxxxxxxxx 2015-Present [phone] [place] [address] xxxxxxxxxx 1.2.840.983986.1.13.239.2. 7.3.324552.315 10-06-2015 Medicare [id number] 10-06-2015 Medicare [id number] 1.2.840.077249.1.13.239.2. 7.3.360785.315 07-27-2015 Unknown BC[place] - [place] P PO xxxxxxxxx 2015-Present [address] [place] [address] xxxxxxxxx 1.2.840.027470.1.13.239.2. 7.3.561971.315 1986 Unknown [id number] 2.16.840.1.058005.3.579.2. 93 1986 Unknown [id number] 2.16.840.1.017907.3.579.2. 93 1986 Unknown [id number] 2.16.840.1.125966.3.579.2. 93 1986 Unknown [id number] 2.16.840.1.905072.3.579.2. 594 1986 Unknown [id number] 2.16.840.1.758990.3.579.2. 177 1986 Unknown [id number] 2.16.840.1.541853.3.579.2. 647 1986 Unknown [id number] 2.16.840.1.059281.3.579.2. 175 1986 Unknown [id number] 2.16.840.1.859845.3.579.2. 718 1986 Unknown [id number] 2.16.840.1.512054.3.579.2. 718 1986 Unknown [id number] 2.16.840.1.105702.3.579.2. 1069 1986 Unknown [id number] 2.16.840.1.172235.3.579.2. 593 1986 Unknown [id number] 2.16.840.1.704786.3.579.2. 593 1986 Unknown [id number] 2.16.840.1.198822.3.579.2. 593 1986 Unknown [id number] 2.16.840.1.302449.3.579.2. 593 1986 Unknown [id number] 2.16.840.1.968369.3.579.2. 593 1986 Unknown [id number] 2.16.840.1.778313.3.579.2. 593 1986 Unknown [id number] 2.16.840.1.815833.3.579.2. 593 1986 Unknown [id number] 2.16.840.1.945106.3.579.2. 593 1986 Unknown [id number] 2.16.840.1.417547.3.579.2. 593 1986 Unknown [id number] 2.16.840.1.530536.3.579.2. 593 1986 Unknown [id number] 2.16.840.1.675375.3.579.2. 593 1986 Unknown [id number] 2.16.840.1.115697.3.579.2. 593 1986 Unknown [id number] 2.16.840.1.677214.3.579.2. 593 1986 Unknown [id number] 2.16.840.1.919980.3.579.2. 593 1986 Unknown [id number] 2.16840.1.170549.3.579.2. 1285 1986 Unknown [id number] 2.16840.1.726550.3.579.2. 1285 1986 Unknown [id number] 2.840.1.697193.3.579.2. 1285 1986 Unknown [id number] 2.840.1.050993.3.579.2. 1285 1986 Unknown [id number] 2.840.1.102701.3.579.2. 1285 1986 Unknown [id number] 2.840.1.117647.3.579.2. 1285 1986 Unknown [id number] 2.840.1.870572.3.579.2. 1285 1986 Unknown [id number] 2.16840.1.280095.3.579.2. 1285 1986 Unknown [id number] 2.16840.1.876281.3.579.2. 1285 1986 Unknown [id number] 2.16840.1.743250.3.579.2. 1285 1986 Unknown [id number] 2.16840.1.480208.3.579.2. 1285 1986 Unknown [id number] 2.16.840.1.888822.3.579.2. 1286 1986 Unknown [id number] 2.16.840.1.844271.3.579.2. 1286 1986 Unknown [id number] 2.16.840.1.770633.3.579.2. 1286 1986 Unknown [id number] 2.16.840.1.149722.3.579.2. 1286 1986 Unknown [id number] 2.16.840.1.284755.3.579.2. 173 1986 Unknown [id number] 2.16.840.1.967229.3.579.2. 173 1986 Unknown [id number] 2.16.840.1.853342.3.579.2. 173 1986 Unknown [id number] 2.16840.1.639531.3.579.2. 173 1986 Unknown [id number] 2.16.840.1.961658.3.579.2. 173 1986 Unknown [id number] 2.16.840.1.019610.3.579.2. 173 1986 Unknown [id number] 2.16.840.1.775608.3.579.2. 173 1986 Unknown [id number] 2.16840.1.311183.3.579.2. 173 1986 Unknown [id number] 2.16.840.1.636958.3.579.2. 173 1986 Unknown [id number] 2.16.840.1.467704.3.579.2. 173 1986 Unknown [id number] 2.16.840.1.961677.3.579.2. 1259 1986 Unknown [id number] 2.16.840.1.700325.3.579.2. 1259 1986 Unknown [id number] 2.16.840.1.992673.3.579.2. 1259 1986 Unknown [id number] 2.16.840.1.814815.3.579.2. 9 1986 Unknown [id number] 2.16.840.1.951844.3.579.2. 9 1986 Unknown [id number] 2.16.840.1.178910.3.579.2. 1258 1986 Unknown [id number] 2.16.840.1.796984.3.579.2. 1986 Unknown [id number] 2.16.840.1.683561.3.579.2. 1986 Unknown [id number] 2.16.840.1.499277.3.579.2. 1986 Unknown [id number] 2.16.840.1.265965.3.579.2. 1986 Unknown [id number] 2.16.840.1.105262.3.579.2. 1986 Unknown [id number] 2.16.840.1.148369.3.579.2. 1986 Unknown [id number] 2.16.840.1.749186.3.579.2. 1986 Unknown [id number] 2.16.840.1.025731.3.579.2. 1986 Unknown [id number] 2.16.840.1.537875.3.579.2. 1986 Unknown [id number] 2.16.840.1.360139.3.579.2. 1986 Unknown [id number] 2.16.840.1.518530.3.579.2. 1986 Unknown [id number] 2.16.840.1.151254.3.579.2. 1986 Unknown [id number] 2.16.840.1.425725.3.579.2. 196 1986 Unknown [id number] 2.16840.1.394035.3.579.2. 196 1986 Unknown [id number] 2.16840.1.050694.3.579.2. 196 1986 Unknown [id number] 2.840.1.933174.3.579.2. 196 1986 Unknown [id number] 2.840.1.815360.3.579.2. 196 1986 Unknown [id number] 2.0.1.432075.3.579.2. 196 06-07-1958 Medicare [id number] 1.2.840.503620.1.13.239.2. 7.3.575397.315 06-07-1958 Unknown [id number] Medicaid Medicaid [id number] Unknown [id number] Unknown MMO [id number] Unknown HCAP/HFA/FAP Active [id number] Unknown [id number] .1.325905.3.579.2. 531 Unknown [id number] .0.1.053794.3.579.2. 531 Unknown [id number] .0.1.532253.3.579.2. 531 Unknown [id number] .0.1.768081.3.579.2. 531 Unknown [id number] 2.0.1.322678.3.579.2. 531 Social History Date Type Detail Facility Start: 12-07-2018 End: 09-11-2024 Tobacco smoking status [facility] Never smoker [place], [place] Start: 12-07-2018 End: 09-25-2024 [facility] 1985 [facility] Start: 08-10-2019 End: 03-02-2024 Alcohol intake Current non-drinker of alcohol (finding) [facility] LUIS MANUEL Start: 07-20-2020 End: 02-04-2023 Tobacco use and exposure Never used [employer] Work Phone: Start: 12-21-2021 End: 05-31-2022 Exposure to SARS-CoV-2 (event) Not sure [employer] Work Phone: Start: 05-20-2021 History SDOH Financial 5 [employer] Work Phone: Start: 05-20-2021 End: 11-30-2022 History SDOH Food Worry 1 [employer] Work Phone: Start: 12-15-2021 End: 02-18-2022 Exposure to SARS-CoV-2 (event) Unable to assess [facility] Work Phone: Start: 1985 Sex Assigned At Female F [facility] Tobacco smoking consumption unknown [facility] Start: 11-30-2022 History SDOH Alcohol Std Drinks 0 [employer] Start: 08-24-2023 End: 09-25-2024 History of Social function [employer] Has the [employer], or [employer] threatened to shut off services in your home in past 12Mo No [employer] How often to you hav e a drink containing alcohol? Never [facility] Fixed System How many standard drinks containing alcohol do you have on a typical day? Patient does not drink [employer] (I/We) worried wheth er (my/our) food would run out before (I/we) got money to buy more. Never true [employer] Start: 04-22-2024 End: 09-25-2024 Alcoholic beverage intake [facility] Start: 08-23-2022 Gender identity Identifies as female gender (finding) [facility] Start: 04-18-2024 Sexual orientation Heterosexual (fin ding) [facility] Start: 04-26-2024 End: 11-06-2024 Sex Female (finding) [facility] Do you belong to any clubs or organizations such as taoism groups, unions, fraternal or athletic groups, or school groups? Yes [facility] Are you now , , , , never or living with a partner? [facility] Do you feel stress - tense, restless, nervous, or anxious, or unable to sleep at night because your mind is troubled all the time - these days [OSQ] To some extent [facility] NEGATED: Highlighted row [facility] Medical Equipment Procedure Code Equipment Code Equipment Origin al Text Equipment Identifier Dates Insertion of central venous catheter (CVC) with subcutaneous port for chemotherapy INFUSAPORT POWER PORT 8FR FDA Start: 07-11-2018 Insertion of central venous catheter (CVC) with subcutaneous port for chemotherapy INFUSAPORT POWER PORT 8FR FDA Start: 07-11-2018 Insertion of central venous catheter (CVC) with subcutaneous port for chemotherapy Vascular port/catheter [id number] FDA Start: 08-05-2020 Insertion of central venous catheter (CVC) with subcutaneous port for chemotherapy INFUSAPORT POWER PORT 8FR FDA Start: 07-11-2018 Insertion of central venous catheter (CVC) with subcutaneous port for chemotherapy INFUSAPORT POWER PORT 8FR FDA Start: 07-11-2018 Insertion of central venous catheter (CVC) with subcutaneous port for chemotherapy INFUSAPORT POWER PORT 8FR FDA Start: 07-11-2018 Insertion of central venous catheter (CVC) with subcutaneous port for chemotherapy INFUSAPORT POWER PORT 8FR FDA Start: 07-11-2018 Insertion of central venous catheter (CVC) with subcutaneous port for chemotherapy INFUSAPORT POWER PORT 8FR FDA Start: 07-11-2018 Insertion of central venous catheter (CVC) with subcutaneous port for chemotherapy INFUSAPORT POWER PORT 8FR FDA Start: 07-11-2018 Insertion of central venous catheter (CVC) with subcutaneous port for chemotherapy INFUSAPORT POWER PORT 8FR FDA Start: 07-11-2018 Insertion of central venous catheter (CVC) with subcutaneous port for chemotherapy INFUSAPORT POWER PORT 8FR FDA Start: 07-11-2018 Insertion of central venous catheter (CVC) with subcutaneous port for chemotherapy INFUSAPORT POWER PORT 8FR FDA Start: 07-11-2018 Insertion of central venous catheter (CVC) with subcutaneous port for chemotherapy INFUSAPORT POWER PORT 8FR FDA Start: 07-11-2018 Insertion of central venous catheter (CVC) with subcutaneous port for chemotherapy INFUSAPORT POWER PORT 8FR FDA Start: 07-11-2018 Insertion of central venous catheter (CVC) with subcutaneous port for chemotherapy INFUSAPORT POWER PORT 8FR FDA Start: 07-11-2018 Insertion of central venous catheter (CVC) with subcutaneous port for chemotherapy INFUSAPORT POWER PORT 8FR FDA Start: 07-11-2018 Insertion of central venous catheter (CVC) with subcutaneous port for chemotherapy INFUSAPORT POWER PORT 8FR FDA Start: 07-11-2018 Insertion of central venous catheter (CVC) with subcutaneous port for chemotherapy INFUSAPORT POWER PORT 8FR FDA Start: 07-11-2018 Insertion of central venous catheter (CVC) with subcutaneous port for chemotherapy INFUSAPORT POWER PORT 8FR FDA Start: 07-11-2018 Insertion of central venous catheter (CVC) with subcutaneous port for chemotherapy INFUSAPORT POWER PORT 8FR FDA Start: 07-11-2018 Insertion of central venous catheter (CVC) with subcutaneous port for chemotherapy INFUSAPORT POWER PORT 8FR FDA Start: 07-11-2018 Insertion of central venous catheter (CVC) with subcutaneous port for chemotherapy INFUSAPORT POWER PORT 8FR FDA Start: 07-11-2018 Insertion of central venous catheter (CVC) with subcutaneous port for chemotherapy INFUSAPORT POWER PORT 8FR FDA Start: 07-11-2018 Insertion of central venous catheter (CVC) with subcutaneous port for chemotherapy INFUSAPORT POWER PORT 8FR FDA Start: 07-11-2018 Insertion of central venous catheter (CVC) with subcutaneous port for chemotherapy INFUSAPORT POWER PORT 8FR FDA Start: 07-11-2018 Insertion of central venous catheter (CVC) with subcutaneous port for chemotherapy INFUSAPORT POWER PORT 8FR FDA Start: 07-11-2018 Insertion of central venous catheter (CVC) with subcutaneous port for chemotherapy INFUSAPORT POWER PORT 8FR FDA Start: 07-11-2018 Insertion of central venous catheter (CVC) with subcutaneous port for chemotherapy Vascular port/catheter ()[id number])[facility] FDA Start: 07-09-2023 Insertion of central venous catheter (CVC) with subcutaneous port for chemotherapy INFUSAPORT POWER PORT 8FR FDA Start: 07-11-2018 Insertion of central venous catheter (CVC) with subcutaneous port for chemotherapy INFUSAPORT POWER PORT 8FR FDA Start: 07-11-2018 Insertion of central venous catheter (CVC) with subcutaneous port for chemotherapy INFUSAPORT POWER PORT 8FR FDA Start: 07-11-2018 Insertion of central venous catheter (CVC) with subcutaneous port for chemotherapy INFUSAPORT POWER PORT 8FR FDA Start: 07-11-2018 Insertion of central venous catheter (CVC) with subcutaneous port for chemotherapy INFUSAPORT POWER PORT 8FR FDA Start: 07-11-2018 Insertion of central venous catheter (CVC) with subcutaneous port for chemotherapy INFUSAPORT POWER PORT 8FR FDA Start: 07-11-2018 Insertion of central venous catheter (CVC) with subcutaneous port for chemotherapy INFUSAPORT POWER PORT 8FR FDA Start: 07-11-2018 Insertion of central venous catheter (CVC) with subcutaneous port for chemotherapy INFUSAPORT POWER PORT 8FR FDA Start: 07-11-2018 Insertion of central venous catheter (CVC) with subcutaneous port for chemotherapy INFUSAPORT POWER PORT 8FR FDA Start: 07-11-2018 Insertion of central venous catheter (CVC) with subcutaneous port for chemotherapy INFUSAPORT POWER PORT 8FR FDA Start: 07-11-2018 Insertion of central venous catheter (CVC) with subcutaneous port for chemotherapy INFUSAPORT POWER PORT 8FR FDA Start: 07-11-2018 Insertion of central venous catheter (CVC) with subcutaneous port for chemotherapy INFUSAPORT POWER PORT 8FR FDA Start: 07-11-2018 Insertion of central venous catheter (CVC) with subcutaneous port for chemotherapy INFUSAPORT POWER PORT 8FR FDA Start: 07-11-2018 Insertion of central venous catheter (CVC) with subcutaneous port for chemotherapy INFUSAPORT POWER PORT 8FR FDA Start: 07-11-2018 Insertion of central venous catheter (CVC) with subcutaneous port for chemotherapy INFUSAPORT POWER PORT 8FR FDA Start: 07-11-2018 Insertion of central venous catheter (CVC) with subcutaneous port for chemotherapy INFUSAPORT POWER PORT 8FR FDA Start: 07-11-2018 Insertion of central venous catheter (CVC) with subcutaneous port for chemotherapy INFUSAPORT POWER PORT 8FR FDA Start: 07-11-2018 Insertion of central venous catheter (CVC) with subcutaneous port for chemotherapy INFUSAPORT POWER PORT 8FR FDA Start: 07-11-2018 Insertion of central venous catheter (CVC) with subcutaneous port for chemotherapy INFUSAPORT POWER PORT 8FR FDA Start: 07-11-2018 Insertion of central venous catheter (CVC) with subcutaneous port for chemotherapy INFUSAPORT POWER PORT 8FR FDA Start: 07-11-2018 Insertion of central venous catheter (CVC) with subcutaneous port for chemotherapy INFUSAPORT POWER PORT 8FR FDA Start: 07-11-2018 Insertion of central venous catheter (CVC) with subcutaneous port for chemotherapy INFUSAPORT POWER PORT 8FR FDA Start: 07-11-2018 Insertion of central venous catheter (CVC) with subcutaneous port for chemotherapy INFUSAPORT POWER PORT 8FR FDA Start: 07-11-2018 Insertion of central venous catheter (CVC) with subcutaneous port for chemotherapy INFUSAPORT POWER PORT 8FR FDA Start: 07-11-2018 Insertion of central venous catheter (CVC) with subcutaneous port for chemotherapy INFUSAPORT POWER PORT 8FR FDA Start: 07-11-2018 Insertion of central venous catheter (CVC) with subcutaneous port for chemotherapy INFUSAPORT POWER PORT 8FR FDA Start: 07-11-2018 Insertion of central venous catheter (CVC) with subcutaneous port for chemotherapy INFUSAPORT POWER PORT 8FR FDA Start: 07-11-2018 Insertion of central venous catheter (CVC) with subcutaneous port for chemotherapy INFUSAPORT POWER PORT 8FR FDA Start: 07-11-2018 [id number] Start: 04-05-2015 Contour Next Gely t Strips [id number] blood sugar diagnostic (Accu-Chek Guide test strips) Start: 09-20-2023 blood sugar diagnostic (Accu-Chek Guide test strips) Start: 09-20-2023 blood sugar diagnostic (Accu-Chek Guide test strips) Start: 09-20-2023 blood sugar diagnostic (Accu-Chek Guide test strips) Start: 09-20-2023 blood sugar diagnostic (Accu-Chek Guide test strips) Start: 09-20-2023 blood sugar diagnostic (Accu-Chek Guide test strips) Start: 09-20-2023 blood sugar diagnostic (Accu-Chek Guide test strips) Start: 09-20-2023 blood sugar diagnostic (Accu-Chek Guide test strips) Start: 09-20-2023 Port Power Mri W/Open Ended 8f R Plstc Ca - Sna - [id number] Start: 02-23-2018 Port Powerport Clrvu 8fr Intmd Kt Slim Implinfn Lf - [id number])REHV [id number], [id number] FDA Start: 04-28-2023 ACCU-CHEK GUIDE GUIDE GELY, See instructions, 0 Refill(s) [id number] Start: 02-22-2022 blood sugar diagnostic (Accu-Chek Guide test strips) Start: 09-20-2023 blood sugar diagnostic (Accu-Chek Guide test strips) Start: 09-20-2023 blood sugar diagnostic (Accu-Chek Guide test strips) Start: 09-20-2023 blood sugar diagnostic (Accu-Chek Guide test strips) Start: 09-20-2023 blood sugar diagnostic (Accu-Chek Guide test strips) Start: 09-20-2023 blood sugar diagnostic (Accu-Chek Guide test strips) Start: 09-20-2023 Goals Date Patient Goal Desired Activity /State Personal health goal Comment on above: Formatting of this n ote might be different from the original. Evaluation of progress towards goal: safe transition from hospital to home with parents and family/friend support. Clinical Notes 10-20-2020 to 09-25-2024 Note Date & Type Note Facility 09-25-2024 Evaluation note Diagnosis Onset Date Resolution Diabetes mellitus with chronic kidney disease acute September 9:55am HTN (hypertension) acute September 25, 2024 9:55am BMI 23.0-23.9, adult acute November 06, 2024 9:05am Dietary counseling and surveillance acute November 06, 2024 9:05am History of pancreatectomy acute November 06, 2024 9:05am Hypertension acute November 06 9:05am Hypoglycemia acute November 06 9:05am Insulin long-term use acute Nov 9:05am Insulin pump titration acute Ju 2024 9:05am Mixed hyperlipidemia acute November 06, 2024 9:05am Type 1 diabetes mellitus acute November 06, 2024 9:05am [facility] Work Phone: 1(280) 248-166404-21-2025 History of Present illness Narrative* Antonino Delgado MD - 09/25/2024 11:15 AM EDT Images from the original note were not included. Antonino Delgado MD Obstetrics and Gynecology Patient: Pritesh Raza, : 1985 (39 y.o.) DOS 09/25/24 Exam Date: 09/25/2024 HPI: 2 weeks postop TLH/BSO. PATH neg She is having hotflashes/nightsweats. Her preop bleeding and pain is gone Visit Vitals BP 130/80 Wt 151 lb BMI 22.96 kg/m OB Status Hysterectomy Smoking Status Never BSA 1.81 m OB History Para Term AB Living 0 0 0 0 0 0 SAB IAB Ectopic Multiple Live Births 0 0 0 0 0 Obstetric Comments Pap: 01/27-Neg GUERITA: HPV Neg Hysterectomy-'f25 Medication and Allergies Medication Documentation Review Audit Reviewed by Mecca Thomas MA (Cleat Layer) on 09/25/24 at 1123 Medication Order Taking? Sig Documenting Provider Last Dose Status albuterol HFA 90 mcg/act inhaler [id number] Daniel Cuevas DO Active ALPRAZolam (Xanax) 1 MG tablet [id number] Three times daily Daniel Cuevas DO Active amLODIPine (Norvasc) 10 MG tablet [id number] Daily Daniel Cuevas DO Active carvedilol (Coreg) 12.5 MG tablet [id number] every 12 (twelve) hours. Historical Provider, Active cetirizine (ZyrTEC) 10 MG tablet [id number] daily Daniel Cuevas DO Active cloNIDine (Catapres-TTS) 0.3 MG/24HR [id number] Apply 1 patch every week by transdermal route for 90 days. Daniel Cuevas DO Active Continuous Glucose Sensor (Dexcom G7 Sensor) misc [id number] Daniel Cuevas DO Active Docusate Sodium (DSS) 100 MG capsule [id number] Take 100 mg by mouth in the morning and 100 mg in theevening. Daniel Cuevas DO Active doxycycline (Vibramycin) 100 MG capsule [id number] Daniel Cuevas DO Active dronabinol (Marinol) 5 MG capsule [id number] Twice daily Daniel Cuevas DO Active gabapentin (Neurontin) 300 MG capsule [id number] Twice daily Daniel Cuevas DO Active glucagon 1 MG injection [id number] Injection Historical ProviderMD Active glucose blood test strip [id number] Contour Next Strips Historical ProviderMD Active HumuLIN N KWIKPEN 100 UNIT/ML injection [id number] Daniel Cuevas DO Active insulin aspart (NovoLOG) 100 UNIT/ML injection [id number] Subcutaneous Historical ProviderMD Active Insulin Lispro 100 UNIT/ML solution [id number] Yes Antonino Delgado MD Active linaCLOtide (Linzess) 290 MCG capsule [id number] Yes Bedtime Antonino Delgado MD Active lubiprostone (Amitiza) 24 MCG capsule [id number] Take 24 mcg by mouth in the morning and 24 mcg in the evening. Take with meals. Daniel Cuevas DO Active OLANZapine (ZyPREXA) 5 MG tablet [id number] Every evening Daniel Cuevas DO Active omeprazole (PriLOSEC) [address] capsule [id number] Twice daily Daniel Cuevas DO Active ondansetron (Zofran) 8 MG tablet [id number] Orally Every 4-6 hours; PRN Historical ProviderMD Active oxyCODONE (Roxicodone) 5 MG immediate release tablet [id number] EVERY 4-6 HOURS Daniel Cuevas DOActive pancrelipase, Mzd-Xiye-Auvc, (Creon) 74720-535159 units capsule delayed-release particles capsule [id number] Take 1 capsule 6 times a day by oral route for 30 days. Daniel Cuevas DO Active polyethylene glycol, PEG, 3350 (Glycolax) 17 GM/SCOOP powder [id number] Take 17 g by mouth Daniel More DO Active promethazine (Phenergan) 25 MG/ML injection [id number] every 12 (twelve) hours. Historical ProviderMD Active QUEtiapine (SEROquel) 200 MG tablet [id number] Take 200 mg by mouth at bedtime Daniel Cuevas, DO Active sertraline (Zoloft) 100 MG tablet [id number] Daily Daniel Cuevas, DO Active temazepam (Restoril) 30 MG capsule [id number] Daily at bedtime Daniel Cuevas, DO Active tiZANidine (Zanaflex) 2 MG capsule [id number] Take 8 mg by mouth in the morning and 8 mg before bedtime. Daniel Maciel Deirdremaco DO Active zolpidem (Ambien) 10 MG tablet [id number] Daily at bedtime Daniel Cuevas, DO Active Allergies Allergen Reactions Erythromycin Base Anaphylaxis Other Reaction(s): Anaphylactic shock, Anaphylaxis, breathing issues and rash Meperidine Other Reaction(s): Confusion, Intolerance, Mental Status Change, Other (See Comments), Unknown Reaction, hyper Other reaction(s): Intolerance, Other (See Comments) Authoring Clinician or Source System: Juan Romero DEMEROL Other reaction(s): makes her wide awake Authoring Clinician or Source System: Juan Romero Metronidazole Anaphylaxis and Shortness of breath Other Reaction(s): Anaphylactic shock, Other (See Comments), Other: See Comments Other reaction(s): Other (See Comments), Other: See Comments Nitrofurantoin Anaphylaxis, Rash and Shortness of breath Other Reaction(s): breathing issues and rash, Other (See Comments) Other reaction(s): Other (See Comments) Authoring Clinician or Source System: Juan Romero Authoring Clinician or Source System: Juan Romero Authoring Clinician or Source System: Juan Romero Other reaction(s): Other (See Comments) Authoring Clinician or Source System: Juan Romero MACROBID Azithromycin Other Cephalexin Other Ciprofloxacin Other Clindamycin Other Dicyclomine Other Erythromycin Other Ketorolac Other Meperidine Hcl Other Metoclopramide Other Penicillin G Other Sulfamethoxazole Other Sulfamethoxazole-Trimethoprim Other Trimethoprim Other Vancomycin Other Past Medical History: Diagnosis Date Acute blood loss anemia 10/20/2020 Acute GI bleeding 08/20/2022 Acute intractable headache 03/27/2015 Acute pain of left knee 04/22/2024 Acute renal failure (CMS/HCC) 02/08/2023 Analgesic overuse headache 12/11/2022 Anemia 04/22/2024 Anxiety 04/22/2024 Arthritis, rheumatoid ([facility]) 03/25/2022 Morphine pump (ordered for chronic pancreatitis but helps with other pain) Asthma 03/25/2022 Singluar Atypical chest pain 04/06/2023 Benign essential hypertension ([facility]) 07/15/2011 Coreg, clonidine, furosemide, lisinopril, nifedpine Bipolar 1 disorder ([facility]) 04/22/2024 Blood in stool 04/22/2024 BMI 23.0-23.9, adult 04/22/2024 Calculus of kidney 07/15/2011 H/O Cellulitis of chest wall 03/08/2023 Central vascular catheter in place upon arrival 05/14/2022 Chronic abdominal pain 07/15/2011 History of chronic abdominal pain secondary to chronic pancreatitisvs recurrent AP (per her OSH surgeon this should have been fixed w/ surgical pancreatectomy); Prehosp pain regimen- intrathecal pumpfor pain control in August 2013; Nortriptyline 25mg QHS pain. Unclear why she subjectively reports pain flare this admission PLAN: NO opioid Rx at time of dc-> f/up local pain specialist Chronic migraine with aura ([facility]) 12/11/2022 Chronic pancreatitis ([facility]) 12/11/2012 Chronic prescription benzodiazepine use 10/21/2020 Chronic, continuous use of opioids 12/11/2022 Colitis 04/22/2024 Constipation 08/24/2023 Controlled type 1 diabetes mellitus with diabetic neuropathy 04/22/2024 Counseling regarding advanced care planning and goals of care 04/22/2024 Diabetes mellitus ([facility]) 07/21/2011 Diabetes mellitus secondary to pancreatectomy ([facility]) 06/10/2018 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 No STATIN due to med failure . No ASA ( heparin flushes for port) Initialy ISIDRO - Then Chronic Pancreatitis due to Familiar Hyperlipidemia--Total Pancreatectomy 2013 Hypoglycemia (Glucogon) HX DKA Diabetic ketoacidosis ([facility]) 05/15/2014 Dietary counseling and surveillance 04/22/2024 Difficult intravenous access 02/10/[address] // episodic fluid and lytes replacement / weekly port flushes at hospital outpt Disorder associated with type 2 diabetes mellitus ([facility]) 07/15/2011 DUB (dysfunctional uterine bleeding) 04/22/2024 Edema leg 03/25/2022 Furosemide ( pt with dehydration & malnutrition , fluid & lyte problem and on nifedipine) Epigastric pain 01/30/2021 Exocrine pancreatic insufficiency (CMS/HCC) 06/02/2018 Creon // total Pancreatectomy 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/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 extreemly high triglyceride with spleenectomy , gastric bypass, plasmophoresis , pancreatectomy // on no meds (failure of meds) Familial hypertriglyceridemia (CMS/HCC) 11/22/2012 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 Flank pain 04/22/2024 Globus sensation 04/06/2023 Gross hematuria 04/22/2024 Hematemesis 04/22/2024 Hematuria 07/15/2011 Hepatic steatosis 04/22/2024 History of anesthesia complications 01/05/2022 Last Assessment & Plan: Assessment: States as severe N/V postop ( scopolamine does not work) Also states woke up during surgery Also hard to sedate History of degenerative disc disease 03/25/2022 MSO4 Pump (ordered for chronic pancreatitis but helps with other pain) r History of female genital system disorder 03/25/2022 History of kidney stones 07/15/2011 History of pancreatectomy 10/21/2020 Due to recurrent hypertriglyceridemia related pancreatitis History of pancreatitis 04/22/2024 States had a WHipple procedure due to Familial Hypertriglyceride Type V ;12-05-2013 Hydronephrosis 04/22/2024 Hyperkalemia 04/06/2023 Hyperlipidemia (CMS/[facility]) 07/28/2011 Hypertension (CMS/HCC) 02/11/2024 Hypertensive emergency without congestive heart failure (CMS/[facility]) 02/07/2024 Inflammation of sacroiliac joint (CMS/HCC) 10/03/2013 Insomnia 03/25/2022 ambien Insulin long-term use (CMS/[facility]) 04/22/2024 Intractable chronic migraine without aura and with status migrainosus (CMS/[facility]) 12/11/2022 Iron deficiency anemia due to chronic blood loss 10/20/2020 Left-sided weakness 04/22/2024 Leucocytosis 11/03/2022 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 Adrianna-Draper tear 03/25/2022 Maturity onset diabetes mellitus in young (CMS/HCC) 12/12/2012 Migraine 03/21/2022 Mild malnutrition (HCC) ([facility]) 07/02/2021 Mixed anxiety depressive disorder 03/25/2022 Referred to mica/ Willis, Seroquel, Mixed hyperlipidemia ([facility]/HCC) 04/22/2024 Neuroma of third interspace of right foot 04/22/2024 PCOD (polycystic ovarian disease) 03/25/2022 Merena contraceptive Port or reservoir infection 03/08/2023 Postoperative pain 05/14/2022 Pure hypertriglyceridemia ([facility]/HCC) 11/22/2012 Rectal hemorrhage 09/15/2021 Rectal prolapse 09/04/2021 Recurrent acute pancreatitis 12/02/2009 Rhabdomyolysis 04/22/2024 Seasonal allergies 04/22/2024 Severe protein-calorie malnutrition (De Souza: less than 60% of standard weight) (HCC) ([facility]) 07/06/2014 S/P Total Pancreatectomy /Pancreatic Insuff / Chronic N & V / Phenergan / Zofran / Shoulder joint pain 03/20/2013 Stage 3b chronic kidney disease (HCC) ([facility]) 05/14/2022 Thyroid nodule ([facility]) 04/22/2024 Tremors of nervous system 06/15/2022 Type 2 diabetes mellitus without complication 07/15/2011 Secondary to pancreatectomy in December 2013, though history of Either mild TII DM OR insulin resistance from PCOS prior to surgery Poorly controlled; HbA1C 11.1% on 07/03/14 states that she is to have aninsulin pump placed this week, pending discharge. Home insulin regimen currently includes lantus 14U BID and novolog 6U with meals. PLAN: incr lantus 12 units twice daily, prandial 3U w franco Urinary incontinence 07/21/2011 Urologic disorder 04/22/2024 Past Surgical History: Procedure Laterality Date APPENDECTOMY CHOLECYSTECTOMY CT ANGIOGRAM ABDOMEN PELVIS 10/18/2021 CT ANGIOGRAM ABDOMEN PELVIS 10/18/2021 CT ANGIOGRAM ABDOMEN PELVIS 01/10/2022 CT ANGIOGRAM ABDOMEN PELVIS 01/10/2022 CT ANGIOGRAM ABDOMEN PELVIS 02/08/2023 CT ANGIOGRAM ABDOMEN PELVIS 02/08/2023 GASTRIC BYPASS HYSTERECTOMY TLH, BS-09/29 IR BIOPSY NECK THYROID Right 05/21/2015 IR BIOPSY NECK THYROID 05/21/2015 IR CVC PORT REMOVAL 06/18/2023 IR CVC PORT REMOVAL 06/18/2023 IR TUNNELED CENTRAL VENOUS ACCESS DEVICE W SUBCUTANEOUS PUMP 04/28/2023 IR TUNNELED CENTRAL VENOUS ACCESS DEVICE W SUBCUTANEOUS PUMP 04/28/2023 IR VENOGRAM PORTAL 06/01/2018 IR VENOGRAM PORTAL 06/01/2018 PANCREATECTOMY SPLENECTOMY, TOTAL THYROIDECTOMY, PARTIAL Left 05/15/2024 TONSILLECTOMY WHIPPLE PROCEDURE W/ LAPAROSCOPY Physical Exam: Objective Physical Exam Genitourinary: Vulva normal. Perineal sutures intact. Vaginal discharge present. No vaginal tenderness, bleeding or cuff induration. Right Adnexa: absent. Left Adnexa: absent. Cervix is absent. Uterus is absent. Pulmonary: Effort: Pulmonary effort is normal. Abdominal: General: Abdomen is flat. Palpations: Abdomen is soft. Comments: Incisions are healed Assessment/Plan ICD-10-CM 1. Surgery follow-up Z09 2. Menometrorrhagia N92.1 3. Menopausal symptoms N95.1 estradiol (Vivelle-DOT) 0.1 MG/24HR Operative findings were reviewed. Pathology was reviewed. Postop expectations and limitations were reviewed . ERT patch ordered No orders of the defined types were placed in this encounter. documented in this encounterUniversity Health Lakewood Medical [id number] Evaluation note* Diagnosis Onset Date Resolution Status Admit Date BMI 23.0-23.9, adult acute Febr 2024 9:12am Dietary counseling and surveillance acute August 02, 2 025 9:12am History of pancreatectomy acute August 02, 2024 9:12am Hypertension acute July 9:12am Hypoglycemia acute July 9:12am Insulin long-term use acute Feb ruary 2024 9:12am Insulin pump titration acute Fe bruary 2024 9:12am Mixed hyperlipidemia acute Febr ua2024 9:12am Type 1 diabetes mellitus acute August 02, 2024 9:12am [facility] Work Phone: 1(736) 939-700002-20-2025 History of Present illness Narrative* Antonino Delgado MD - 07/27/2024 11:30 AM EST Images from the original note were not included. Antonino Delgado MD Obstetrics and Gynecology Patient: Pritesh Raza, : 1985 (39 y.o.) DOS 07/27/24 Exam Date: 07/27/2024 HPI: Pt called to bee seen. She has been bleeding heavily for 9 days, passing clots. Hx of chronic anemia Pt has a complicated history. She has inherited hypertriglyceridemia. She reuired a whipple and pancreatectomy for chronic pancreatitis. Her mense were so heavy they contributed to chronic anemia. Weplaced an IUD to reduce her bleeding, which it has done so nicely. SONO today shows normal uterus and ovaries, possible polyp, normal IUD position Visit Vitals BP (!) 148/98 Wt 158 lb BMI 24.02 kg/m OB Status Implant Smoking Status Never BSA 1.85 m OB History Para Term AB Living 0 0 0 0 0 0 SAB IAB Ectopic Multiple Live Births 0 0 0 0 0 Obstetric Comments Pap: 01/27-Neg GUERITA: HPV Neg Mirena IUD: 01/22; occasional spotting with IUD Medication and Allergies Medication Documentation Review Audit Reviewed by Mecca Thomas MA (Cleat Layer) on 07/27/24 at 1118 Medication Order Taking? Sig Documenting Provider Last Dose Status albuterol HFA 90 mcg/act inhaler [id number] Daniel Cuevas DO Active ALPRAZolam (Xanax) 1 MG tablet [id number] Three times daily Daniel Cuevas DO Active amLODIPine (Norvasc) 10 MG tablet [id number] Daily Daniel Cuevas DO Active carvedilol (Coreg) 12.5 MG tablet [id number] every 12 (twelve) hours. Historical Provider, Active cetirizine (ZyrTEC) 10 MG tablet [id number] daily Daniel Cuevas DO Active cloNIDine (Catapres-TTS) 0.3 MG/24HR [id number] Apply 1 patch every week by transdermal route for 90 days. Daniel Cuevas DO Active Continuous Glucose Sensor (Dexcom G7 Sensor) [employer] [id number] Daniel Cuevas DO Active Docusate Sodium (DSS) 100 MG capsule [id number] Take 100 mg by mouth in the morning and 100 mg in theevening. Daniel Cuevas DO Active doxycycline (Vibramycin) 100 MG capsule [id number] Daniel Cuevas DO Active dronabinol (Marinol) 5 MG capsule [id number] Twice daily Daniel Cuevas DO Active gabapentin (Neurontin) 300 MG capsule [id number] Twice daily Daniel Cuevas DO Active glucagon 1 MG injection [id number] Injection Historical Provider, Active glucose blood test strip [id number] Contour Next Strips Historical Provider, Active HumuLIN N KWIKPEN 100 UNIT/ML injection [id number] Daniel Cuevas DO Active insulin aspart (NovoLOG) 100 UNIT/ML injection [id number] Subcutaneous Historical Provider, Active Discontinued 07/27/24 1117 lubiprostone (Amitiza) 24 MCG capsule [id number] Take 24 mcg by mouth in the morning and 24 mcg in the evening. Take with meals. Daniel Cuevas DO Active OLANZapine (ZyPREXA) 5 MG tablet [id number] Every evening Daniel Cuevas DO Active omeprazole (PriLOSEC) [address] capsule [id number] Twice daily Daniel Cuevas DO Active ondansetron (Zofran) 8 MG tablet [id number] Orally Every 4-6 hours; PRN Historical Provider, Active oxyCODONE (Roxicodone) 5 MG immediate release tablet [id number] EVERY 4-6 HOURS Daniel Cuevas DOActive pancrelipase, Fwi-Ihik-Aabt, (Creon) 04693-288969 units capsule delayed-release particles capsule [id number] Take 1 capsule 6 times a day by oral route for 30 days. Daniel Cuevas DO Active polyethylene glycol, PEG, 3350 (Glycolax) 17 GM/SCOOP powder [id number] Take 17 g by mouth Daniel More DO Active promethazine (Phenergan) 25 MG/ML injection [id number] every 12 (twelve) hours. Historical Provider, Active QUEtiapine (SEROquel) 200 MG tablet [id number] Take 200 mg by mouth at bedtime Daniel Cuevas DO Active sertraline (Zoloft) 100 MG tablet [id number] Daily Daniel Maciel Deirdremaco, DO Active temazepam (Restoril) 30 MG capsule [id number] Daily at bedtime Daniel Cuevas, DO Active tiZANidine (Zanaflex) 2 MG capsule [id number] Take 8 mg by mouth in the morning and 8 mg before bedtime. Daniel Maciel Faith, DO Active zolpidem (Ambien) 10 MG tablet [id number] Daily at bedtime Daniel Maciel Chausravani, DO Active Allergies Allergen Reactions Erythromycin Base Anaphylaxis Other Reaction(s): Anaphylactic shock, Anaphylaxis, breathing issues and rash Meperidine Other Reaction(s): Confusion, Intolerance, Mental Status Change, Other (See Comments), Unknown Reaction, hyper Other reaction(s): Intolerance, Other (See Comments) Authoring Clinician or Source System: Juan Romero DEMEROL Other reaction(s): makes her wide awake Authoring Clinician or Source System: Juan Romero Metronidazole Anaphylaxis and Shortness of breath Other Reaction(s): Anaphylactic shock, Other (See Comments), Other: See Comments Other reaction(s): Other (See Comments), Other: See Comments Nitrofurantoin Anaphylaxis, Rash and Shortness of breath Other Reaction(s): breathing issues and rash, Other (See Comments) Other reaction(s): Other (See Comments) Authoring Clinician or Source System: Juan Romero Authoring Clinician or Source System: Juan Romero Authoring Clinician or Source System: Juan Romero Other reaction(s): Other (See Comments) Authoring Clinician or Source System: Juan Romero MACROBID Azithromycin Other Cephalexin Other Ciprofloxacin Other Clindamycin Other Dicyclomine Other Erythromycin Other Ketorolac Other Meperidine Hcl Other Metoclopramide Other Penicillin G Other Sulfamethoxazole-Trimethoprim Other Vancomycin Other Past Medical History: Diagnosis Date Acute blood loss anemia 10/20/2020 Acute GI bleeding 08/20/2022 Acute intractable headache 03/27/2015 Acute pain of left knee 04/22/2024 Acute renal failure ([facility]) 02/08/2023 Analgesic overuse headache 12/11/2022 Anemia 04/22/2024 Anxiety 04/22/2024 Arthritis, rheumatoid ([facility]) 03/25/2022 Morphine pump (ordered for chronic pancreatitis but helps with other pain) Asthma ([facility]) 03/25/2022 Singluar Atypical chest pain 04/06/2023 Benign essential hypertension ([facility]) 07/15/2011 Coreg, clonidine, furosemide, lisinopril, nifedpine Bipolar 1 disorder ([facility]) 04/22/2024 Blood in stool 04/22/2024 BMI 23.0-23.9, adult 04/22/2024 Calculus of kidney 07/15/2011 H/O Cellulitis of chest wall 03/08/2023 Central vascular catheter in place upon arrival 05/14/2022 Chronic abdominal pain 07/15/2011 History of chronic abdominal pain secondary to chronic pancreatitisvs recurrent AP (per her OSH surgeon this should have been fixed w/ surgical pancreatectomy); Prehosp pain regimen- intrathecal pumpfor pain control in August 2013; Nortriptyline 25mg QHS pain. Unclear why she subjectively reports pain flare this admission PLAN: NO opioid Rx at time of dc-> f/up local pain specialist Chronic migraine with aura ([facility]) 12/11/2022 Chronic pancreatitis ([facility]) 12/11/2012 Chronic prescription benzodiazepine use 10/21/2020 Chronic, continuous use of opioids 12/11/2022 Colitis 04/22/2024 Constipation 08/24/2023 Controlled type 1 diabetes mellitus with diabetic neuropathy ([facility]) 04/22/2024 Counseling regarding advanced care planning and goals of care 04/22/2024 Diabetes mellitus ([facility]) 07/21/2011 Diabetes mellitus secondary to pancreatectomy ([facility]) 06/10/2018 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 No STATIN due to med failure . No ASA ( heparin flushes for port) Initialy ISIDRO - Then Chronic Pancreatitis due to Familiar Hyperlipidemia--Total Pancreatectomy 2013 Hypoglycemia (Glucogon) HX DKA Diabetic ketoacidosis (CMS/[facility]) 05/15/2014 Dietary counseling and surveillance 04/22/2024 Difficult intravenous access 02/10/[address] // episodic fluid and lytes replacement / weekly port flushes at hospital outpt Disorder associated with type 2 diabetes mellitus ([facility]) 07/15/2011 DUB (dysfunctional uterine bleeding) 04/22/2024 Edema leg 03/25/2022 Furosemide ( pt with dehydration & malnutrition , fluid & lyte problem and on nifedipine) Epigastric pain 01/30/2021 Exocrine pancreatic insufficiency (CMS/HCC) 06/02/2018 Creon // total Pancreatectomy 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/25/2022 extreemly high triglyceride with spleenectomy , gastric bypass, plasmophoresis , pancreatectomy // on no meds (failure of meds) Familial hypertriglyceridemia (CMS/HCC) 11/22/2012 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 Flank pain 04/22/2024 Globus sensation 04/06/2023 Gross hematuria 04/22/2024 Hematemesis 04/22/2024 Hematuria 07/15/2011 Hepatic steatosis 04/22/2024 History of anesthesia complications 01/05/2022 Last Assessment & Plan: Assessment: States as severe N/V postop ( scopolamine does not work) Also states woke up during surgery Also hard to sedate History of degenerative disc disease 03/25/2022 MSO4 Pump (ordered for chronic pancreatitis but helps with other pain) r History of female genital system disorder 03/25/2022 History of kidney stones 07/15/2011 History of pancreatectomy 10/21/2020 Due to recurrent hypertriglyceridemia related pancreatitis History of pancreatitis 04/22/2024 States had a WHipple procedure due to Familial Hypertriglyceride Type V ;12-05-2013 Hydronephrosis 04/22/2024 Hyperkalemia 04/06/2023 Hyperlipidemia (CMS/HCC) 07/28/2011 Hypertension (CMS/HCC) 02/11/2024 Hypertensive emergency without congestive heart failure (CMS/HCC) 02/07/2024 Inflammation of sacroiliac joint (CMS/HCC) 10/03/2013 Insomnia 03/25/2022 ambien Insulin long-term use (CMS/HCC) 04/22/2024 Intractable chronic migraine without aura and with status migrainosus (CMS/HCC) 12/11/2022 Iron deficiency anemia due to chronic blood loss 10/20/2020 Left-sided weakness 04/22/2024 Leucocytosis 11/03/2022 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 Adrianna-Draper tear 03/25/2022 Maturity onset diabetes mellitus in young (CMS/HCC) 12/12/2012 Migraine (CMS/HCC) 03/21/2022 Mild malnutrition (HCC) (CMS/HCC) 07/02/2021 Mixed anxiety depressive disorder 03/25/2022 Referred to pysch/ Josselynx, Seroquel, Mixed hyperlipidemia ([facility]/HCC) 04/22/2024 Neuroma of third interspace of right foot 04/22/2024 PCOD (polycystic ovarian disease) 03/25/2022 Merena contraceptive Port or reservoir infection 03/08/2023 Postoperative pain 05/14/2022 Pure hypertriglyceridemia (CMS/HCC) 11/22/2012 Rectal hemorrhage 09/15/2021 Rectal prolapse 09/04/2021 Recurrent acute pancreatitis 12/02/2009 Rhabdomyolysis 04/22/2024 Seasonal allergies 04/22/2024 Severe protein-calorie malnutrition (De Souza: less than 60% of standard weight) (HCC) ([facility]) 07/06/2014 S/P Total Pancreatectomy /Pancreatic Insuff / Chronic N & V / Phenergan / Zofran / Shoulder joint pain 03/20/2013 Stage 3b chronic kidney disease (HCC) ([facility]) 05/14/2022 Thyroid nodule ([facility]) 04/22/2024 Tremors of nervous system 06/15/2022 Type 2 diabetes mellitus without complication ([facility]) 07/15/2011 Secondary to pancreatectomy in December 2013, though history of Either mild TII DM OR insulin resistance from PCOS prior to surgery Poorly controlled; HbA1C 11.1% on 07/03/14 states that she is to have aninsulin pump placed this week, pending discharge. Home insulin regimen currently includes lantus 14U BID and novolog 6U with meals. PLAN: incr lantus 12 units twice daily, prandial 3U w franco Urinary incontinence 07/21/2011 Urologic disorder 04/22/2024 Past Surgical History: Procedure Laterality Date APPENDECTOMY CHOLECYSTECTOMY CT ANGIOGRAM ABDOMEN PELVIS 10/18/2021 CT ANGIOGRAM ABDOMEN PELVIS 10/18/2021 CT ANGIOGRAM ABDOMEN PELVIS 01/10/2022 CT ANGIOGRAM ABDOMEN PELVIS 01/10/2022 CT ANGIOGRAM ABDOMEN PELVIS 02/08/2023 CT ANGIOGRAM ABDOMEN PELVIS 02/08/2023 GASTRIC BYPASS IR BIOPSY NECK THYROID Right 05/21/2015 IR BIOPSY NECK THYROID 05/21/2015 IR CVC PORT REMOVAL 06/18/2023 IR CVC PORT REMOVAL 06/18/2023 IR TUNNELED CENTRAL VENOUS ACCESS DEVICE W SUBCUTANEOUS PUMP 04/28/2023 IR TUNNELED CENTRAL VENOUS ACCESS DEVICE W SUBCUTANEOUS PUMP 04/28/2023 IR VENOGRAM PORTAL 06/01/2018 IR VENOGRAM PORTAL 06/01/2018 PANCREATECTOMY SPLENECTOMY, TOTAL THYROIDECTOMY, PARTIAL Left 05/15/2024 TONSILLECTOMY WHIPPLE PROCEDURE W/ LAPAROSCOPY Physical Exam: Objective Physical Exam Constitutional: Appearance: Normal appearance. Genitourinary: Vulva normal. Vaginal bleeding present. No vaginal discharge. Right Adnexa: not palpable. Left Adnexa: not palpable. No cervical lesion. Uterus is not enlarged or tender. Pulmonary: Effort: Pulmonary effort is normal. Abdominal: General: Abdomen is flat. Palpations: Abdomen is soft. Neurological: Mental Status: She is alert. Associated Treatments and Results - ICD-10-CM 1. Menometrorrhagia N92.1 CBC Comprehensive metabolic panel CBC Comprehensive metabolic panel Pt has a complicated case. We could replace the IUD, but medicare won't cover it. We coud do hysteroscopy/D+C/ablation, but the out come is variable. We discussed hysterectomy, which will permanentlyfix the problem. She prefers definitive tx. [place] [facility] [place] Will utilize open entry level project coordinator. Pt has increased risk of laparotomy because of adhesions from prior surgery Assessment/Plan Orders Placed This Encounter Procedures CBC Standing Status: Future Number of Occurrences: 1 Standing Expiration Date: 07/27/2025 Order Specific Question: Print requisition? Answer: Yes Comprehensive metabolic panel Standing Status: Future Number of Occurrences: 1 Standing Expiration Date: 07/27/2025 Order Specific Question: Print requisition? Answer: Yes documented in this encounterUniversity Health Lakewood Medical [id number] History of Present illness Narrative* Daniel Cuevas, DO - 05/22/2024 1:30 PM EST HPI Patient presents today 1 week postop left hemithyroidectomy. Final pathology is benign and I made her aware that. She is doing fine. Relevant postoperative physical examination Neck incision intact, no evidence of hematoma or seroma. Voice is normal. Assessment/plan Pritesh was seen today for post-op. Diagnoses and all orders for this visit: Status post partial thyroidectomy (CMS/HCC) (Primary) Comments: I will see the patient back in 1 month with T3, T4 and TSH. Postoperative instructions were given. documented in this encounterUniversity Health Lakewood Medical [id number] Evaluation note* Diagnosis Onset Date Resolution Status Admit Date HTN (hypertension) acute Decemb er 2023 8:48am Thyroid nodule acute May 082023 8:48am Type 1 diabetes mellitus acute May 08, 2024 8:48am BMI 22.0-22.9, adult acute Febr 2024 9:12am Dietary counseling and surveillance acute August 02 025 9:12am History of pancreatectomy acute August 02, 2024 9:12am Hypertension acute July 9:12am Hypoglycemia acute July 9:12am Insulin long-term use acute Jul 9:12am Insulin pump titration acute bru2024 9:12am Mixed hyperlipidemia acute 2024 9:12am Type 1 diabetes mellitus acute August 02, 2024 9:12am [facility] Work Phone: 1(697) 930-296112-02-2024 Evaluation note* Diagnosis Onset Date Resolution Status Admit Date HTN (hypertension) acute Decemb er 2023 8:48am Thyroid nodule acute May 082023 8:48am Type 1 diabetes mellitus acute May 08, 2024 8:48am BMI 23.0-23.9, adult acute Febr 2024 9:12am Dietary counseling and surveillance acute August 02 025 9:12am History of pancreatectomy acute August 02, 2024 9:12am Hypertension acute July 9:12am Hypoglycemia acute July 9:12am Insulin long-term use acute Feb ruary 2024 9:12am Insulin pump titration acute Fe bru2024 9:12am Mixed hyperlipidemia acute Febr 2024 9:12am Type 1 diabetes mellitus acute August 02, 2024 9:12am [facility] Work Phone: 1(950) 501-220311-19-2024 History of Present illness Narrative* Daniel Cuevas, DO - 04/25/2024 9:00 AM EST Subjective Patient ID: HPI Patient is a 39-year-old female referred with a left-sided thyroid nodule. She apparently has had this for awhile, she had a CT scan done in May 2023 showing a 3 cm left-sided solid thyroid nodule. She apparently underwent a recent ultrasound but I do not have that report and she was told thatthe nodule has gotten bigger. A significant family history of benign thyroid issues with a few family members having thyroidectomy for multinodular goiter. No personal risk factors for thyroid cancer. She has extensive medical history including a Whipple chronic pancreatitis a number of years ago. She has issues with digestion etcetera since then. Her recent TSH was mildly elevated at 5, her PCPs keeping an eye on that. She is symptomatic with significant globus sensation that is occurred over the last couple of months. Review of Systems ROS The specialty specific review of systems is noncontributory except for that recorded in the intake questionnaire and /or described in the history of present illness. Objective ENT Physical Exam Physical Exam Constitutional: Appearance: Normal appearance. HENT: Head: Atraumatic. Ears: External ear shows no abnormality Bilateral ear canals are clear Tympanic membranes intact, no evidence of middle ear fluid or other pathology. Nose: External nose appears to be normal Nares patent. Septal deviation to the right No evidence of polyp, mass or pus bilaterally. Oral Cavity: No evidence of trismus Lips appear normal Dental good Tongue of normal size and configuration, floor of mouth mucosa clear. Buccal mucosa shows no evidence of ulceration, mass or other abnormality Hard palate soft palate mucosa intact with no evidence of mass, ulceration or other abnormality Uvula of normal size and configuration Oropharynx: Tonsils Posterior pharyngeal wall Neck: No evidence of palpable abnormality Palpable left inferior thyroid lobe nodule with swallowing No cervical lymphadenopathy present. Cardiovascular: Rate and Rhythm: Normal rate and regular rhythm. . Skin: General: Skin is warm and dry. Neurological: General: No focal deficit present. Mental Status: alert and oriented to person, place, and time. THYROID ULTRASOUND EXAMINATION Indication: Thyroid nodule After informed consent was obtained the patient was placed supine on the examining table. Patient was asked to extend the neck. Topical ultrasound jelly was used. The right lobe of the thyroid gland measures _ 4.1 cm in greatest dimension. No identifiablenodular mass The isthmus is unremarkable. The left lobe of the thyroid gland measures __ 4.4 cm greatest dimension. Occupying a good portion of the lobe was a single solid nodule with mild internal vascularity but no calcification measuring 3.7 cm in greatest dimension. There is no adenopathy in the central compartment. There is no appreciable adenopathy in either lateral neck. FIBEROPTIC NASOPHARYNGOLARYNGOSCOPY A diagnostic flexible fiberoptic laryngoscopy was performed. The flexible fiberoptic laryngoscope was placed into the nose and advanced to the level of the tip of the epiglottis. Examination of the larynx including both surfaces of the epiglottis false and true vocal folds, arytenoids and surrounding mucosal surfaces show no evidence of lesion, ulceration or mass. Normal bilateral true vocal foldmotion is present. Bilateral piriform sinuses and base of tongue appear without lesion Assessment/Plan Pritesh was seen today for thyroid problem. Diagnoses and all orders for this visit: Thyroid mass of unclear etiology (CMS/HCC) (Primary) Preop testing - CBC and differential; Future - Basic metabolic panel; Future - Protime-INR; Future - Comprehensive metabolic panel; Future - ECG 12 lead; Future - CBC and differential - Basic metabolic panel - Protime-INR - Comprehensive metabolic panel - ECG 12 lead Given the size of the nodule, the ultrasound characteristics, the fact that it has grown and she issymptomatic I have recommended a left thyroid lobectomy. The risks and benefits of thyroidectomy were discussed with the patient. These include but are not inclusive of perioperative , infection, major neurovascular injury, recurrent laryngeal nerve injury/dysfx, hoarsness, permanent vocal cord paralysis, permanent hyoparathyroidism, poor scaring, sw allowing and/or voice difficulties, etc. The patient has consented to proceed. documented in this encounterUniversity Health Lakewood Medical [id number] Hospital Discharge instructions Additional Instructions Your hemoglobin is fine tonight. It is 11.2. This is the same as it was last April. Call Dr. Delgado today.[facility] Work Phone: 1(431) 624-257910-25-2024 NoteAdmission Information Patient: Pritesh Raza : 1985 Date of Admission: 03/29/2024 13:16:25 Date of Discharge: 03/30/2024 16:15:00 PCP: Jalyn Holt DO Consult: Follow Up with Provider With When Contact Information Follow up with primary care provider Within 1 to 2 weeks Additional Instructions: Scheduled Appointments Appointment Type When With Where Contact Information SP Follow Up Visit 30 04/04/2024 08:00 AM EDT Kelli STYLES, [facility] [address] [place] [address] Pal Follow Up Visit 60 04/07/2024 02:30 PM EDT Leonel GARCIA, [facility] [place] [address] [address] Brief Hospital Course Summary: This is a 39 Years old Female with pertinent history of HTN, HLD, DM1, CKD 3b/4, nonalcoholic fattyliver disease, rheumatoid arthritis, & insomnia who presented from GI clinic/endoscopy suite for uncontrolled HTN. She was scheduled to have EGD and colonoscopy for persistent N/V and there was found to have severely elevated BP and so was sent to emergency room to control the blood pressure peggy or to getting the procedures. Patient reported feeling well with no symptoms from the elevated BP and was simply retsarted on her home medications. BP improved an the pateitn was able to undergo the procedures without any complications. BP remained within goal post-operatively and so she was dischar ge home with plans to follow-up with her PCP and GI. Additionally, she was instructed to seek medical care sooner if symptoms return or new concerning symptoms develop. Medications Medications That Have Not Changed Other Medications albuterol (Albuterol (Eqv-Ventolin HFA) 90 mcg/inh inhalation aerosol) 2 Puffs Oral (given by mouth) every 6 hours as needed as needed for wheezing. Last Dose: ALPRAZolam (ALPRAZolam 1 mg oral tablet) 1 Tabs Oral (given by mouth) 4 times a day as needed as needed for anxiety. Last Dose: amLODIPine (amLODIPine 10 mg oral tablet) 1 Tabs Oral (given by mouth) every day. Last Dose: carvedilol (carvedilol 6.25 mg oral tablet) 1 Tabs Oral (given by mouth) 2 times a day. Last Dose: cloNIDine (cloNIDine 0.2 mg/24 hr transdermal film, extended release) 2 Patches Topical (on the skin) Every . Last Dose: docusate (docusate sodium 50 mg oral capsule) 1 Capsules Oral (given by mouth) 2 times a day. Scheduled. Last Dose: dronabinol (dronabinol 5 mg oral capsule) 1 Capsules Oral (given by mouth) 2 times a day for 30 Days. Refills: 1. Last Dose: HYDROmorphone (HYDROmorphone 2 mg oral tablet) 1 Tabs Oral (given by mouth) every 2 hours as neededbreakthrough pain. Last Dose: insulin lispro (insulin lispro 100 units/mL injectable solution) Via pump Subcutaneous (under the skin). Basal rate 0.96 unit per hour with self- adjustments to 2 units/hour as needed. Last Dose: lubiprostone (Amitiza 24 mcg oral capsule) 1 Capsules Oral (given by mouth) 2 times a day. Refills:2. Last Dose: OLANZapine (OLANZapine 5 mg oral tablet) 1 Tabs Oral (given by mouth) once a day (at bedtime). Last Dose: omeprazole (omeprazole 40 mg oral delayed release capsule) 1 Capsules Oral (given by mouth) 2 timesa day for 30 Days. Refills: 0. Last Dose: ondansetron (ondansetron 2 mg/mL injectable solution) 8 Milligram Intramuscular (in a muscle) every4 hours as needed as needed for nausea/vomiting. Last Dose: oxyCODONE (oxyCODONE 5 mg oral tablet) 1-2 tabs Oral (given by mouth) every 4 hours as needed as needed for pain for 30 Days. Refills: 0. Last Dose: pancrelipase (Creon 12,000 units oral delayed release capsule) 3 Capsules Oral (given by mouth) 3 times a day before meals. Last Dose: polyethylene glycol 3350 with electrolytes (Plenvu oral powder for reconstitution) 17 Gram Oral (given by mouth) 2 times a day. Scheduled. Last Dose: prochlorperazine (prochlorperazine 5 mg/mL injectable solution) 10 Milligram Intramuscular (in a muscle) every 6 hours as needed as needed for nausea/vomiting. Last Dose: promethazine (promethazine 25 mg/mL injectable solution) 1 Milliliter Intramuscular (in a muscle) every 6 hours as needed as needed for nausea/vomiting. Last Dose: QUEtiapine (QUEtiapine 100 mg oral tablet) 2 Tabs Oral (given by mouth) once a day (at bedtime). Last Dose: sertraline (sertraline 100 mg oral tablet) 1 Tabs Oral (given by mouth) once a day (at bedtime). Last Dose: temazepam (temazepam 30 mg oral capsule) 1 Capsules Oral (given by mouth) once a day (at be (more content not included)...[facility] 03-29-2024 NoteChief Complaint was being seen for an outpatient endoscopy and began experiening hypertension Assessment/Plan Brief Hospital Course Summary: This is a 39 Years old Female with pertinent history of type 1 diabetes mellitus, CKD stage III, hypertension, hypertriglyceridemia, nonalcoholic fatty liver disease, rheumatoid arthritis, history ofinsomnia,_ along with multiple medical problems brought in from Home with nausea and vomiting. Patient is admitted for accelerated hypertension and nausea. Assessment: Hypertensive emergency Type 1 diabetes mellitus CKD stage III Hypertension Hypertriglyceridemia Nonalcoholic fatty liver disease Rheumatoid arthritis Insomnia Plan: Will admit the patient to ICU for better blood pressure control, continue home blood pressure medications, as needed hydralazine for BP more than 160/90, she is already on clonidine patch. Type 1 diabetes mellitus: As she is on clear liquid diet, and n.p.o. after midnight, will monitor blood glucose. Sliding scale insulin only if blood glucose is more than 200 mg/dL. Persistent nausea and vomiting: Going for EGD and colonoscopy in the morning with GI, she was scheduled to have EGD and colonoscopy on outpatient basis today, however her blood pressure was high, wassent to emergency room to control the blood pressure and going for procedure tomorrow. DVT prophylaxis: SCDs GI prophylaxis: Continue Protonix. Discussion: I discussed with the patient, family, patient's nurse, and care transition about the patient's plan of care. I personally discussed with the Consulting Provider about the patient's plan of care. Anticipated Discharge Location: Home Follow up plan after Discharge: Needs outpatient follow up for _ with the Primary Care and or Consulting provider within _. I did have prior medical records to review for comparison. Medical necessity for ongoing hospitalization: ongoing workup for active diagnosis Code Status: Full Resuscitation History of Present Illness 39-year-old woman with multiple medical comorbidities including familial hypertriglyceridemia complicated by chronic pancreatitis status post Whipple's procedure, hypertension, diabetes, fatty liver who presented to the outpatient endoscopy unit today for elective EGD and colonoscopy to evaluate for suspected iron deficiency anemia and intermittent episodes of overt GI bleeding. Before the procedure, patient was found to have uncontrolled hypertension with sustained systolic blood pressure at or greater than 200, diastolic blood pressure at or greater than 100. Denied chest pain, headache, nausea or vomiting, abdominal pain. Reported that she is on clonidine patch, amlodipine and carvedilol, however despite taking these medications of blood pressure was found to be persistently elevated. Procedure was canceled as blood pressure was more than 200, anesthesia team did not feel comfortable reducing her with this high blood pressure. Patient was transferred to emergency room for better blood pressure control, then admitted to the hospital for further management, then go to the EGD and colonoscopy tomorrow morning. Review of Systems Constitutional: [No fevers, chills, sweats] Eye: [No recent visual problems] ENMT: [No ear pain, nasal congestion, sore throat] Respiratory: [No shortness of breath, cough] Cardiovascular: [No Chest pain, palpitations, syncope] Gastrointestinal: [+ nausea, vomiting,] Genitourinary: [No hematuria] Caio/Lymph: [Negative for bruising tendency, swollen lymph glands] Endocrine: [Negative for excessive thirst, excessive hunger] Musculoskeletal: [No back pain, neck pain, joint pain, muscle pain, decreased range of motion] Integumentary: [No rash, pruritus, abrasions] Neurologic: [Alert & oriented X 4] Psychiatric: [No anxiety, depression] Objective Vitals & Measurements HR: 80 (Monitored) RR: 19 BP: 192/122 SpO2: 98% HT: 173 cm WT: 69.5 kg (Dosing) Additional Vitals No qualifying data available. Problem List/Past Medical History Ongoing Anemia Chronic abdominal pain Chronic kidney disease, stage 3b Chronic nausea Chronic vomiting Diabetes mellitus-Type I Familial hypertriglyceridemia GI bleed H/O Whipple procedure Hypertension Insomnia Nonalcoholic fatty liver Palliative care status Pancreatitis Refractory nausea and vomiting Rheumatoid arthritis Uncontrolled hypertension Historical No qualifying data Degree of Malnutrition: No qualifying data available. Procedure/Surgical History whipple REMOVAL OF TONSILS Spleen removal appendix removal pancreas removal gallbladder Esophagogastroduodenoscopy (09/08/2020) Esophagogastroduodenoscopy Polypectomy (08/06/2022) Esophagogastroduodenoscopy (09/05/2022) Esophagogastroduodenoscopy Control Bleeding (09/23/2022) Esophagogastroduodenoscopy (10/27/2022) Esophagogastroduodenoscopy (12/29/2022) Colonoscopy (12/29/2022) port insertion (07/2023) Esophagogastroduodeno (more content not included)...[facility]10-23-2024 NoteProcedure: Portable AP view of the chest. Clinical information: 39-year-old female with congestion. Comparison: 10/24/2022 and 09/07/2022. Findings: Lines/tubes/devices: New right subclavian port terminating in the right atrium. Lungs/pleura: Grossly clear lungs. No pneumothorax or frontal view evidence for pleural effusion. Heart/mediastinum: Normal silhouette. Bones/soft tissues: Grossly normal. IMPRESSION: No acute chest abnormality. Final Dictated by: Adelina Olvera MD Dictated DT/TM: 03/29/2024 2:04 pm Signed by: Adelina Olvera MD Signed (Electronic Signature): 03/29/2024 2:04 pm (If Report Is Signed, Electronically Signed in Other Vendor System)[facility]09-29-2024 NoteAdmission Information This is a 39 Years old Female who initially presented to [facility] emergency department with complaints of worsening abdominal pain over the last week. Pain is mostly to right upper quadrant and is accompanied by intermittent nausea and vomiting. At 3 AM this morning, pain woke patient up radiating to her back prompting her to seek medical. Patient: Pritesh Raza : 1985 Date of Admission: 03/02/2024 16:57:06 Date of Discharge: Code Status: [place] DNR - CCA No Int, No Comp, No CPR PCP: Jalyn Holt DO Consult: Sandi GARCIA, Lashaun Bales; Yi GARCIA, Oscar Buitrago; Miguel A CONWAY CNP, Lurdes Epstein Scheduled Appointments Appointment Type When With Where Contact Information Pal Clinic Follow Up 60 03/23/2024 08:30 AM EDT Leonel GARCIA, Evette [facility] [place] [address] [id number] CDS2 Procedure 03/29/2024 11:30 AM EDT [facility] Endoscopy Brief Hospital Course Summary: This is a 39 Years old Female who initially presented to [facility] emergency department with complaints of worsening abdominal pain over the last week. Pain is mostly to right upper quadrant and is accompanied by intermittent nausea and vomiting. At 3 AM this morning, pain woke patient up radiating to her back prompting her to seek medical. Patient has known nonalcoholic hepatic steatosis and follows with Dr. Fountain in the gastroenterology clinic. She also follows with palliative care for symptom management. Patient has frequent episodes of nausea and vomiting and often uses IV Zofran, Phenergan and Compazine intermittently at home via her right chest port. However, antiemetics were not e ffective at home the past 2 days and she continued to experience significant nausea leading to poororal intake. Other pertinent medical history includes diabetes, chronic kidney disease, hypertension, hypertriglyceridemia, rheumatoid arthritis and insomnia. Patient is admitted for elevated LFTs superimposed on AGUERO on 03/02/2024. Transfer from [facility] can transition to [facility] Monitor vitals closely including pulse oximetry CT abdomen pelvis with contrast completed at [facility], see report MRI abdomen was done, chronic changes, GI reviewed and recommended discharge and outpatient follow-up. Upward trend in a creatinine is possible secondary to contrast induced nephropathy/dehydration Discharge diagnosis: Elevated LFTs superimposed on nonalcoholic fatty liver disease -> [facility]: ALT 345, AST 480 Diabetes mellitus type 1 Acute renal insufficiency on chronic kidney disease stage IIIb Hypertension Hypertriglyceridemia, familial Chronic pancreatitis with chronic pain syndrome Rheumatoid arthritis Insomnia Hypotension, resolved no evidence of cholangitis on imaging. S/p IV fluid bolus, patient wanted to go home, mended repeat BMP in 1 week. Discussion: I discussed with the patient, family, patient's nurse, and care transition about the patient's plan of care. I personally discussed with the Consulting Provider about the patient's plan of care. Anticipated Discharge Location: Home, potential need for transfer to tertiary center Follow up plan after Discharge: Needs outpatient follow up for routine follow up with the Primary Care and or Consulting provider within one to two weeks. I did have prior medical records to review for comparison. Discharge Time Spent with Patient: 35 minutes Significant Findings As above Medications Medications That Were Updated - Follow Current Instructions Other Medications Current: cloNIDine (cloNIDine 0.2 mg/24 hr transdermal film, extended release) 2 Patches Topical (on the skin) Every . Last Dose: Current: docusate (docusate sodium 50 mg oral capsule) 1 Capsules Oral (given by mouth) 2 times a day. Scheduled. Last Dose: Current: HYDROmorphone (HYDROmorphone 2 mg oral tablet) 1 Tabs Oral (given by mouth) every 2 hours as needed breakthrough pain. Last Dose: Current: insulin lispro (insulin lispro 100 units/mL injectable solution) Via pump Subcutaneous (under the skin). Basal rate 0.96 unit per hour with self- adjustments to 2 units/hour as needed. Last Dose: Current: polyethylene glycol 3350 with electrolytes (Plenvu oral powder for reconstitution) 17 GramOral (given by mouth) 2 times a day. Scheduled. Last Dose: Current: prochlorperazine (prochlorperazine 5 mg/mL injectable solution) 10 Milligram Intramuscular(in a muscle) every 6 hours as needed as needed for nausea/vomiting. Last Dose: Current: zolpidem (zolpidem 10 mg oral tablet) 1 Tabs Oral (given by mouth) once a day (at bedtime). Scheduled. Last Dose: Medications That Have Not Changed Other Medications albuterol (Albuterol (Eqv-Ventolin HFA) 90 mcg/inh inhalation aerosol) 2 Puffs Oral (gi (more content not included)...[facility]09-26-2024 NoteChief Complaint Transfer from [facility] due to significantly elevated LFTs, follows with Dr. Fountain in the GI clinic Assessment/Plan Brief Hospital Course Summary: This is a 39 Years old Female who initially presented to [facility] emergency department with complaints of worsening abdominal pain over the last week. Pain is mostly to right upper quadrant and is accompanied by intermittent nausea and vomiting. At 3 AM this morning, pain woke patient up radiating to her back prompting her to seek medical. Patient has known nonalcoholic hepatic steatosis and follows with Dr. Fountain in the gastroenterology clinic. She also follows with palliative care for symptom management. Patient has frequent episodes of nausea and vomiting and often uses IV Zofran, Phenergan and Compazine intermittently at home via her right chest port. However, antiemetics were not e ffective at home the past 2 days and she continued to experience significant nausea leading to poororal intake. Other pertinent medical history includes diabetes, chronic kidney disease, hypertension, hypertriglyceridemia, rheumatoid arthritis and insomnia. Patient is admitted for elevated LFTs superimposed on AGUERO on 03/02/2024. Assessment: _ Elevated LFTs superimposed on nonalcoholic fatty liver disease -> [facility]: ALT 345, AST 480 Diabetes mellitus type 1 Chronic kidney disease stage IIIb Hypertension Hypertriglyceridemia, familial Chronic pancreatitis Rheumatoid arthritis Insomnia Plan: _ Transfer from [facility] Admit to ICU with grant specialist vitals closely including pulse oximetry Oxygen as needed via nasal cannula to maintain SpO2 > 90% NPO CT abdomen pelvis with contrast completed at [facility], see report MRI MRCP ordered per discussion with Dr. Antoine -> Patient will need transferred if any obstruction noted CBC, CMP and mag now then daily 0.9% normal saline at 50 ml/hr for hydration -> Maintain minimum of KVO all times to prevent clotting of port Zofran and Compazine via port as needed for nausea/vomiting Home medications to be resumed once patient is tolerating oral intake SCDs and subcutaneous heparin for DVT prophylaxis PT/OT evaluation for discharge recommendations Social work consult for discharge planning Gastroenterology consult, Dr. Antoine aware and following Discussion: I discussed with the patient, family, patient's nurse, and care transition about the patient's plan of care. I personally discussed with the Consulting Provider about the patient's plan of care. Anticipated Discharge Location: Home, potential need for transfer to tertiary center Follow up plan after Discharge: Needs outpatient follow up for routine follow up with the Primary Care and or Consulting provider within one to two weeks. I did have prior medical records to review for comparison. Medical necessity for ongoing hospitalization: ongoing workup for active diagnosis Code Status: [place] DNR - CCA No Int, No Comp, No CPR History of Present Illness Ms. Pritesh Raza is a 39-year-old female who initially presented to [facility] emergency department with complaints of worsening abdominal pain over the last week. Pain is mostly to right upper quadrant and is accompanied by intermittent nausea and vomiting. At 3 AM this morning, pain woke patient up radiating to her back prompting her to seek medical. Patient has known nonalcoholic hepatic steatosis and follows with Dr. Fountain in the gastroenterology clinic. She also follows with palliative care for symptom management. Patient has frequent episodes of nausea and vomiting and often uses IV Zofran, Phenergan and Compazine intermittently at home via her right chest port. However, antiemetics were not effective at home the past 2 days and she continued to experience significant nausea leading to poor oral intake. Other pertinent medical history includes diabetes, chronic kidney disease, hypertension, hypertriglyceridemia, rheumatoid arthritis and insomnia. Patient utilizes insulin pump and Dexcom for diabetic management which will need to be discontinued prior to MRI MRCP. She denies tobacco, alcohol and illicit drug use. Family history reviewed as documented in medical record. Chart from [facility] reviewed as summarized below. Repeat blood work ordered and pending. Case discussed with Dr. Antoine who recommends further imaging. Patient seen and examined on arrivalto nursing unit with no signs or symptoms of acute cardiopulmonary distress noted on room air. She continues to experience right upper quadrant pain but feels better than she did prior to arrival to [facility]. She admits to mild dyspnea on exertion over the last week which resolves quickly with rest. Otherwise denies chest pain, shortness of breath at rest, nausea/vomiting and fever/chills. Plan of care discussed at length questions answered. She is agreeable to admission for further evaluationand treatment. CODE STATUS discussed at length and patient wis (more content not included)... [facility]09-22-2024 Hospital Discharge instructions* Discharge Instructions* Fahad Mtz MD - 02/27/2024 1:53 PM EDT Continue current medications as prescribed. Follow-up with primary care provider for reevaluation. Please return immediately if you develop any recurrent worsening symptoms fevers or any other acute concerns * Attachments The following attachments cannot be sent through Care Everywhere. * Abdominal Pain (Greenlandic) [facility]* Diagnosis Onset Date Resolution Status Admit Date Nausea and vomiting acute 2023 11:06am Thyroid nodule acute February 25, 2024 11:06am BMI 22.0-22.9, adult acute 2023 9:49am Dietary counseling and surveillance acute April 11 9:49am History of pancreatectomy acute April 11, 2024 9:49am Hypertension acute April 9:49am Hypoglycemia acute April 9:49am Insulin long-term use acute Apr 9:49am Insulin pump titration acute No vember 2023 9:49am Mixed hyperlipidemia acute 2023 9:49am Type 1 diabetes mellitus acute April 11, 2024 9:49am [facility] Work Phone: 1(199) 418-239706-29-2024 NoteAdmission Information Patient: Pritesh Raza : 1985 Date of Admission: 12/03/2023 02:50:21 Date of Discharge: 12/04/2023 14:31:00 Code Status: [place] DNR - CCA No Int, No Comp, No CPR PCP: Jalyn Holt DO Consult: Uday Kingsley MD Follow Up with Provider With When Contact Information Jalyn Holt DO Within 1 to 2 weeks [address] [place] [address] Additional Instructions: Call for followup appointment Uday Kingsley MD Within 1 to [address] [place] [address] [place] [address]- Additional Instructions: Call for followup appointment Scheduled Appointments Appointment Type When With Where Contact Information Pal Follow Up Visit 60 12/14/2023 09:00 AM EDT Leonel KRAFT-CASTRO, Evette Akanksha [facility] [place] [address] [phone] Brief Hospital Course Summary: This is a 38 Years old Female who initially presented to [facility] emergency department after beginning to cough up blood following intermittent nausea and vomiting beginning on Wednesday evening. She first noticed blood on Wednesday morning but became concerned with the amount continue to increaseover time. Patient has a history of a Adrianna-Darper tear which was repaired. She has required bloodin the past and states that she requires Benadryl prior to transfusion. Dr. Kingsley with gastroenterology was consulted prior to transfer and accepted patient with request for hospitalist team to admit. Other pertinent medical history includes diabetes, chronic kidney disease, hypertension, hypertriglyceridemia, AGUERO, rheumatoid arthritis and insomnia. Patient is admitted for hematemesis and abdominal discomfort. As of 12/03, the patient's symptoms have improved. The patient underwent EGD that showed no evidenceof active bleeding. It was recommended the patient continue PPI twice daily and follow-up with GI outpatient. The patient had no further episodes of hematemesis. Diet was advanced as tolerated. The patient is unable to take Reglan for gastroparesis due to severe intolerance. Zofran and Compazine were given for nausea and vomiting. The patient was started on p.o. iron replacement due to iron deficiency. At this time, the patient's symptoms have improved, is able to tolerate a diet, is able to ambulate effectively, and is medically stable for discharge home. The patient was instructed to also follow- up with primary care doctor within 1 to 2 weeks of discharge. Assessment: _ Hematemesis per report from other hospital Gastroparesis secondary to poorly controlled diabetes Diabetes mellitus type 1 Chronic kidney disease Hypertension Hypertriglyceridemia, familial Nonalcoholic fatty liver disease Rheumatoid arthritis Insomnia Discharge Time Spent with Patient: 35 minutes Medications New Medications [facility] [id number], [address], [place] [id number], [phone] ferrous sulfate (ferrous sulfate 160 mg (50 mg elemental iron) oral tablet, extended release) 1 Tabs Oral (given by mouth) every day for 30 Days. Refills: 0. Last Dose: Medications That Were Updated - Follow Current Instructions [facility] [id number], [address], [place] [id number], [phone] Current: omeprazole (omeprazole 40 mg oral delayed release capsule) 1 Capsules Oral (given by mouth) 2 times a day for 30 Days. Refills: 0. Last Dose: Medications That Have Not Changed Other Medications ALPRAZolam (ALPRAZolam 1 mg oral tablet) 1 Tabs Oral (given by mouth) 3 times a day as needed as needed for anxiety. Last Dose: amLODIPine (amLODIPine 10 mg oral tablet) 0.5 Tabs Oral (given by mouth) once a day (in the morning). Last Dose: cloNIDine (cloNIDine 0.2 mg/24 hr transdermal film, extended release) 2 Patches Topical (on the skin) Wednesday. Last Dose: dronabinol (dronabinol 5 mg oral capsule) 1 Capsules Oral (given by mouth) 2 times a day for 30 Days. Refills: 1. Last Dose: insulin aspart (insulin aspart 100 units/mL injectable solution) Via insulin pump Basal rate 1.25/hour with adjustments to 2 units/hour as needed. Last Dose: insulin lispro (insulin lispro 100 units/mL injectable solution) 7 Units Subcutaneous (under the skin) 2 times a day. Last Dose: levonorgestrel (Mirena 52 mg intrauterine device) 1 Each Intrauteral once. Last Dose: lubiprostone (Amitiza 24 mcg oral capsule) 1 Capsules Oral (given by mouth) 2 times a day. Refills:2. Last Dose: OLANZapine (ZyPREXA 2.5 mg oral tablet) 1 Tabs Oral (given by mouth) once a day (at bedtime). Refills: 1. Last Dose: oxyCODONE (oxyCODONE 5 mg oral tablet) 1-2 tabs Oral (given by mouth) every 4 hours as needed as needed for pain f (more content not included)...[facility]06-28-2024 NoteMissing Attachment - attachment storage system not supported [id number] Can be viewed in source system Missing Attachment - attachment storage system not supported [id number] Can be viewed in source system Missing Attachment - attachment storage system not supported [id number] Can be viewed in source system Missing Attachment - attachment storage system not supported [id number] Can be viewed in source system Missing Attachment - attachment storage system not supported [id number] Can be viewed in source system Missing Attachment - attachment storage system not supported [id number] Can be viewed in source system Missing Attachment - attachment storage system not supported [id number] Can be viewed in source system Missing Attachment - attachment storage system not supported [id number] Can be viewed in source system Missing Attachment - attachment storage system not supported [id number] Can be viewed in source system Patient: Pritesh Raza Age: 38 years Sex: Female : 1985 Associated Diagnoses: None Author: Uday Kingsley MD Pre-Procedure Procedure Date: 12/03/2023 . Procedure Type: Esophagogastroduodenoscopy. Procedure provider: Performed by Uday Kingsley MD. Referred by: Ezequiel STYLES [facility]. Current history and physical: Performed prior to procedure. Informed Consent: After discussing the rationale, risks and benefits, and alternatives to this procedure, the patient provided signed consent for the procedure. Indication: Diagnostic: Diagnostic: hematemesis. Monitoring: See anesthesia record. Procedure Location: Endo Suite. See anesthesia record for sedation given during procedure. After informed consent, the patient was positioned in the left lateral decubitus position. A gastroscope was advanced in the mouth the second portion of the duodenum under direct visualization without difficulty. The patient's tolerance of the procedure was excellent. The scope was withdrawn mucosa was carefully examined. Retroflexion wasperformed the stomach and the cardia and fundus were examined. Esophagus was normal. The Z-line wasregular. There was mild erythema in the gastric antrum and body. There were polyps identified in the stomach endoscopically consistent with fundic gland polyps. Biopsies and polypectomy were deferredin the setting of concerns for recent GI blood loss. The examined small bowel was normal. There wasa widely patent entero-enteral anastomosis with both and afferent and efferent limb identified. . Images Procedure images: [id number].jpg [id number].jpg [id number]_0006.jpg [id number]_[id number].jpg [id number]_0005.jpg [id number]_0004.jpg [id number]_0003.jpg [id number]_0002.jpg [id number]_0001.jpg . Post-Procedure Complications encountered during the procedure were none. Estimated blood loss during the procedureMinimal. Specimens were sent to pathology. Impression and Plan Notes: Impression: -Normal esophagus - Gastric erythema and polyps - Widely patent entero-enteral anastomosis. Normal examined small bowel - No evidence of recent GI blood loss or possible source of GI blood loss identified Recommendations: -[facility] - Resume home medications - Continue supportive care -Clear liquid diet advance as tolerated - GI will sign off, will plan for outpatient follow-up. Please call with any questions -The patient has a contact number available for emergencies. The signs and symptoms of potential delayed complications were discussed with the patient. Return to normal activities tomorrow. Written discharge instructions were provided to the patient.. Electronically signed by Uday Kingsley MD 12/03/23 14:08 [facility]:Order Comment: Missing Attachment - attachment storage system not supported [id number] Can be viewed in source systemMissing Attachment - attachment storage system not supported [id number] Can be viewed insource systemMissing Attachment - attachment storage system not supported [id number] Can be viewed in [facility]ce systemMissing Attachment - attachment storage system not supported [id number] Can be viewed in source systemMissing Attachment - attachment storage system not supported [id number] Can be viewed in source systemMissing Attachment - attachment storage system not supported [id number] Can be viewed in source systemMissing Attachment - attachment storage system not supported [id number] Can be viewed in source systemMissing Attachment - attachment storage system not supported [id number] Can be viewed in source systemMissing Attachment - attachment storage system not supported [id number] Can be viewed in [id number] NoteChief Complaint Transfer from [facility] secondary to upper GI bleed, accepted by Dr. Kingsley prior to transfer Assessment/Plan Brief Hospital Course Summary: This is a 38 Years old Female who initially presented to [facility] emergency department after beginning to cough up blood following intermittent nausea and vomiting beginning on Wednesday evening. She first noticed blood on Wednesday morning but became concerned with the amount continue to increaseover time. Patient has a history of a Adrianna-Draper tear which was repaired. She has required bloodin the past and states that she requires Benadryl prior to transfusion. Dr. Kingsley with gastroenterology was consulted prior to transfer and accepted patient with request for hospitalist team to admit. Other pertinent medical history includes diabetes, chronic kidney disease, hypertension, hypertriglyceridemia, AGUERO, rheumatoid arthritis and insomnia. Patient is admitted for _. Assessment: _ Upper GI bleed Diabetes mellitus type 1 Chronic kidney disease Hypertension Hypertriglyceridemia, familial Nonalcoholic fatty liver disease Rheumatoid arthritis Insomnia Plan: _ Transfer from [facility] Admit to ICU with grant specialist vitals closely including pulse oximetry Oxygen as needed via nasal cannula to maintain SpO2 > 90% N.p.o. except for ice chips. No red dyes CBC, CMP and mag now. Type and screen. CBC, BMP and Mag daily Hemoglobin and hematocrit every 6 hours Plan to transfuse to maintain hemoglobin greater than 8.0 0.9% normal saline at KVO, maintain at all times to prevent clotting of port Hold all antiplatelets/anticoagulation until bleeding resolves Protonix IV 40 mg twice daily Zofran and Compazine via port as needed for nausea/vomiting Home medications to be reviewed/resumed once patient is tolerating oral intake SCDs for DVT prophylaxis PT/OT evaluation for discharge recommendations Social work consult for discharge planning Gastroenterology consult, Dr. Kingsley aware and following Discussion: I discussed with the patient, family, patient's nurse, and care transition about the patient's plan of care. I personally discussed with the Consulting Provider about the patient's plan of care. Anticipated Discharge Location and Time: Home In 48 - 72 Hours DVT prophylaxis: Sequential compression devices Cardozo catheter/Nasogastric tube/Central lines/Drain: No Follow up plan after Discharge: Needs outpatient follow up for routine follow up with the Primary Care and or Consulting provider within one to two weeks. I reviewed results of the laboratory tests, did my independent review of the films on imaging and or EKG which was reported by another physician. I agreed with the findings. I did have prior medical records to review for comparison. Complication: ongoing monitoring for worsening symptoms, prescription drug therapy monitoring for interactions, toxicity. Medical necessity for ongoing hospitalization: awaiting placement since patient unsafe for discharge home Code Status: [place] DNR - CCA No Int, No Comp, No CPR History of Present Illness Ms. Pritesh Raza is a 38-year-old female who initially presented to [facility] emergency department after beginning to cough up blood following intermittent nausea and vomiting beginning on Wednesday evening. She first noticed blood on Wednesday morning but became concerned with the amount continue to increase over time. Patient has a history of a Adrianna-Draper tear which was repaired. She has required blood in the past and states that she requires Benadryl prior to transfusion. She has frequent episodes of nausea and vomiting and often uses IV Zofran, Phenergan and Compazine intermittently at home via her right chest port. Dr. Kingsley with gastroenterology was consulted prior to transfer and accepted patient with request for hospitalist team to admit. Other pertinent medical history includes diabetes, chronic kidney disease, hypertension, hypertriglyceridemia, AGUERO, rheumatoid arthritis and insomnia. Insulin pump and Dexcom in place and functional, patient requests to continue using devices during admission. She denies tobacco, alcohol and illicit drug use. Family history reviewed as documented in medical record. Chart from [facility] reviewed. Patient seen and examined upon arrival to nursing unit with no signs or symptoms of acute cardiopulmonary distress noted on room air. She continues to experience nausea accompanied by generalized weakness and dyspnea on exertion. She denies chest pain, shortness of breath at rest, fever and chills at this time. Plan of care discussed at length questions answered. She is agreeable to admission for further evaluation and treatment. CODE STATUS discussed at length and patient wishes to remain a DNR CCA without intubation at this time. Review of Systems 10 point ROS done and negative except what is mentioned subjective interview. Objective General: Alert and oriented, in no acu (more content not included)...[facility]05-12-2024 Hospital Discharge instructions* Discharge Instructions* Fahad Mtz MD - 10/17/2023 12:28 PM EDT Your current medications as prescribed. Increase your water intake. Soups applesauce yogurt and similar soft bland foods and liquids until your symptoms have resolved. Please seek medical attention immediately for any acute concerns * Attachments The following attachments cannot be sent through Care Everywhere. * Nausea and Vomiting (Greenlandic) * Abdominal Pain (Greenlandic) documented in [facility] History of Present illness Narrative* Afsaneh Charles RN - 07/08/2023 8:00 AM EST Picc line flushed and dressing changed under sterile technique. Patient tolerated it well. 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 I do agree with placing the right-sided Mediport. 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 We did not proceed with placing a right-sided Mediport at that time due to fresh incision from Mediport removal due to infection. We want to wait until the wound is completely healed and all of signs of infection have resolved. We will schedule this in near future I did explain the risks and benefits as well as medical surgical alternatives. We also reviewed the potential complications including infection and DVT. She is aware and wishes to proceed all questions were addressed. [facility] Other 01-25-2024 History of Present illness Narrative* Afsaneh Charles RN - 07/01/2023 8:00 AM EST Picc line flushed and dressing changed under sterile technique. Patient tolerated it well. documented in this encounterMount Carmel Health SystemMagnet Systems Formerly [facility] [id number] History of Present illness Narrative* Chantell Moctezuma RN - 06/24/2023 8:00 AM EST Images from the original note were not included. Picc line dressing changed under sterile technique. Patient tolerated it well. Patient given calendar, verbalized understanding of future appointments. documented in this encounterMount Carmel Health SystemMagnet Systems Formerly [facility] [id number] Procedure note [facility]01-11-2024 Evaluation note* Encounter Date Diagnosis Assessment Notes Treatment Notes Treatment Clinical Notes Jun, Insulin long-term use (ICD-10 - Z79.4) Jun, Type 1 diabetes mellitus with diabetic chronic kidney disease (ICD-10 - E10.22) 1. Uncontrolled, a Type 1 diabetes with A1c of 8.6% 2. Blood glucose above target. According to cgm download 06/03/23-06/17/23: Avg sensor glucose 185. >180-39%, 70-180-60%, <70-0%. Reviewed download with pt, tbi increased, modifed basal setting. Several autocorrections, pt admits to often bolusing after meal d/t concern with chronic nausea/vomiting. Handout given to pt how to update pump -see attachement. Pt to contact office when update complete so order may be sent. Pt verbalizes understanding. 3. Patient is alert, oriented and receptive to making changes or counseling Notes: Seen for an assessment of current glucose pattern, changes in treatment plan, counseling and coordination of care related to diabetes, risks, and benefits of treatment, medications, side effects. Given handouts to reinforce concepts reviewed during counseling, see scanned notes. TOPICS REVIEWED: 1. Time was spent reviewing: a. Basic concepts of diabetes, progressive beta cell , concepts of basal/bolus/correct page insulin requirements. Basal: The goal is fasting blood glucose of 90-130mg. If fasting blood glucose starts to run under 100mg 3x's/ week, decrease dose by 10%. Bolus: The goal is to hold the blood glucose level steady meal to meal. If pt. is going to have increased physical activity after a meal, decrease the schedule meal dose prior to the activity by 30-50%. If pt. skips a meal do not take this dose. Correction: The goal is to correct an elevated glucose back into the 100-150mg range b. Nutrition: Concepts of healthy diet reviewed, encouraged to decrease saturated fat in diet and increase non-starchy vegetables and fruits in diet. BMI: Pt. needs to select one small change to decrease caloric intake or increase physical activity to help decrease weight. c. Correct treatment of hypoglycemia, carry a glucose source at all times on your person, in vehicles, and at bedside. Can use glucose tablets/4, four ounces of pop or juice equal to 15 G of carbohydrate. Blood glucose should be 100 mg/dl or higher when driving. d. ADA glucose goals for age and medical complexity reviewed e. Patient questions addressed 2. Activity/exercise: Encouraged to start any form of physical activity. Start low level and increase slowly to a minimal goal of 150 minutes/week. Limit activity to what is allowed by other issues such as cardiac, pulmonary or orthopedic restrictions. 3. Standards of care: Reminded to have an annual dilated eye exam, A1C every 3 months, urine testing for microalbumin once/year, check feet daily and report any cuts or sores that do not appear to be healing. 4. Meter: Plan to check blood glucose: Please check blood glucose levels 6 times/day. Back to back meals reveal effectiveness of bolus dosing. The Blood glucose data is used to determine insulin doses, and confirm symptoms for hypoglycemia and hyperglcyemia.5. [facility]. Contact office if any issues or concerns with patterns of hypoglycemia, hyperglycemia, or diabetes medication issues. 6. Prescriptions: Júnior Knott-None at this time. DME: [facility]-None at this time. 7. Prescriptions will not be filled unless you are compliant with follow up appointments or have a follow up appointment scheduled as ordered by your provider. Refills should be requested at the time of your visit. Jun, Dietary counseling and surveillance (ICD-10 - Z71.3) Healthy eating material was published Jun, Hypertension (ICD-10 - I10) Managing high blood pressure material was published On arb-above target, keep f/u with pcp/nephrology for further recommendation Jun, History of pancreatectomy (ICD-10 - Z90.410) Jun, Mixed hyperlipidemia (ICD-10 - E78.2) High cholesterol material was published 07/2022 ldl 135. f/u with pcp for further recommendation Jun, Insulin pump titration (ICD-10 - Z46.81) Tandem control iq insulin pump dexcom g6 cgm Basal MN 1 changed to 1.04 units/hr (TBI 24.96 units/day) ICR MN 1:7 ISF MN 1:30 Target 110 Active insulin time 5 hours updated weight/tdi in control iq Jun, BMI 24.0-24.9, adult (ICD-10 - Z68.24) see above [facility] Other 01-11-2024 Evaluation note* Encounter Date Diagnosis Assessment Notes Treatment Notes Treatment Clinical Notes Jun, Type 1 diabetes mellitus with hyperglycemia (ICD-10 - E10.65) She follows with Rudy today. Jun, Nausea & vomiting (ICD-10 - R11.2) She continues with chronic nausea vomiting. She is following with palliative care for this and I did prescribe her medication as well she has a port in place at this time for this. She is not tolerating this port as she has had issues in the past with other ports. She is scheduled to get this removed tomorrow and then they will place a PICC. She has requested a local referral to vascular to get a port placed locally in this replacement. I did give her the number to vascular as referral is in. Jun, Port-a-cath in place (ICD-10 - Z95.828) See above. Jun, HTN (hypertension) (ICD-10 - I10) Nephro is managing medications. [facility] Other 01-10-2024 Miscellaneous Notes* Telephone Encounter - Oliva Kulkarni CMA - 06/16/2023 1:02 PM EST Medication refill request received from [facility]. Medication requested GABAPENTIN 300MG CAP: Take one capsule twice daily. Patient last seen in office on 12/11/22 with a letter sent out for patient to call and reschedule last canceled appointment. Please review, Thanks. documented [facility] encounterC[facility] Need Fixed [id number] Telephone encounter Note* Telephone Encounter - Oliva Kulkarni CMA - 06/16/2023 1:02 PM EST [facility] Med[facility] requested GABAPENTIN 300MG CAP: Take one capsule twice daily. Patient last seen in office on 12/11/22 with a letter sent out for patient to call and reschedule last canceled appointment. Please review, Thanks. [facility] [employer] [id number] Evaluation note* Encounter Date Diagnosis Assessment Notes Treatment Notes Treatment Clinical Notes May, Hematemesis with nausea (ICD-10 - K92.0) Patient is chronically ill and has had hematemesis before this episode started yesterday and has proceeded today. She did vomit blood while nursing was in the room. She has been to the ER 3 times since 05 13. These were all for concerns about her port. She did get this replaced a few weeks ago and has had a burning painful sensation since then. On the seventh they did do a CT scan of her chest which shows some indurated area which they presumed was where her previous port was. She does report she had an issue with the stent in her ureter in the past and they needed to remove that given her intolerance to what ever material that was. She is concerned this happening again. She has been easily dismissed from the ER the last 3 times. The last 2 time she was there she reports that they did not give her any blood pressure medication and discharged with a systolic over 200 both times. Due to the vomiting she is unable to keep anything down. She does have antiemetics to her port which she is using and not helping. I did discuss with her although she has been to the ER 3 times in the last week or so I strongly suggest she needs to go back. She has multiple reasons 1 she is vomiting blood, 2 I believe she has hypertensive urgency and, 3 I do think this port needs looked at. She has been through enough medical things in the past to know when something is wrong. And is a good historian.She is hesitant to go back to the ER because she states they will not do anything . I did continue to encourage her to go either back to [facility] or to a different ER wherever she chooses but I do think she needs to go today. She did voice understanding to this. She did not give me any indication if she was going to proceed to the ER. May, Hypertensive urgency (ICD-10 - I16.0) May, Port-a-cath in place (ICD-10 - Z95.828) See above but I will get her referred to our vascular doctors as interventional radiology in [place] but this current port in. She would like this looked at and potentially switched out because she feels she is allergic to the material in this port. [facility] Other 10-13-2023 Evaluation note* Encounter Date Diagnosis Assessment Notes Treatment Notes Treatment Clinical Notes Mar, Elevated parathyroid hormone (ICD-10 - R79.89) will recheck labs. Mar, Type 1 diabetes mellitus with hyperglycemia (ICD-10 - E10.65) follows with Rudy. Mar, Vomiting, intractability of vomiting not specified, presence of nausea not specified, unspecified vomiting type (ICD-10 - R11.10) not albe to keep anything down, continues to use phenergan. she is working with pallative care of this. Mar, HTN (hypertension) (ICD-10 - I10) extermley elevated today, she is asymptomatic. We did discuss trying to get medications in to her and watch for symptoms. Knows to go to the ER if BP not improving or if she devlops symptoms. Mar, Other she is here for follow up on infected port-is following with Dr. Rodriguez. Has PICC as well. Has home darshan coming who is keeping an eye on the port site. i did not look at this today. [facility] Other 09-25-2023 Evaluation note* Encounter Date Diagnosis Assessment Notes Treatment Notes Treatment Clinical Notes Feb, Insulin long-term use (ICD-10 - Z79.4) Feb, Type 1 diabetes mellitus with diabetic chronic kidney disease (ICD-10 - E10.22) 1. Uncontrolled, a Type 1 diabetes with A1c of 7.2% 2. Blood glucose improved, remain above target. According to cgm download 02/15/23-02/28/23: Avg sensor glucose 178. >180-38%, 70-180-61%, <70-1%. Reviewed download with pt, tbi decreased, modifed basal setting. Several autocorrections, pt admits to often bolusing after meal d/t concern with chronic nausea/vomiting. 3. Patient is alert, oriented and receptive to making changes or counseling Notes: Seen for an assessment of current glucose pattern, changes in treatment plan, counseling and coordination of care related to diabetes, risks, and benefits of treatment, medications, side effects. Given handouts to reinforce concepts reviewed during counseling, see scanned notes. TOPICS REVIEWED: 1. Time was spent reviewing: a. Basic concepts of diabetes, progressive beta cell , concepts of basal/bolus/correct page insulin requirements. Basal: The goal is fasting blood glucose of 90-130mg. If fasting blood glucose starts to run under 100mg 3x's/ week, decrease dose by 10%. Bolus: The goal is to hold the blood glucose level steady meal to meal. If pt. is going to have increased physical activity after a meal, decrease the schedule meal dose prior to the activity by 30-50%. If pt. skips a meal do not take this dose. Correction: The goal is to correct an elevated glucose back into the 100-150mg range b. Nutrition: Concepts of healthy diet reviewed, encouraged to decrease saturated fat in diet and increase non-starchy vegetables and fruits in diet. BMI: Pt. needs to select one small change to decrease caloric intake or increase physical activity to help decrease weight. c. Correct treatment of hypoglycemia, carry a glucose source at all times on your person, in vehicles, and at bedside. Can use glucose tablets/4, four ounces of pop or juice equal to 15 G of carbohydrate. Blood glucose should be 100 mg/dl or higher when driving. d. ADA glucose goals for age and medical complexity reviewed e. Patient questions addressed 2. Activity/exercise: Encouraged to start any form of physical activity. Start low level and increase slowly to a minimal goal of 150 minutes/week. Limit activity to what is allowed by other issues such as cardiac, pulmonary or orthopedic restrictions. 3. Standards of care: Reminded to have an annual dilated eye exam, A1C every 3 months, urine testing for microalbumin once/year, check feet daily and report any cuts or sores that do not appear to be healing. 4. Meter: Plan to check blood glucose: Please check blood glucose levels 6 times/day. Back to back meals reveal effectiveness of bolus dosing. The Blood glucose data is used to determine insulin doses, and confirm symptoms for hypoglycemia and hyperglcyemia.5. [facility]. Contact office if any issues or concerns with patterns of hypoglycemia, hyperglycemia, or diabetes medication issues. 6. Prescriptions: Humalog sent to júnior pt pt request- see above. Sample true steel x3 given, pt to contact office if pt would like to continue for order. 7. Prescriptions will not be filled unless you are compliant with follow up appointments or have a follow up appointment scheduled as ordered by your provider. Refills should be requested at the time of your visit. Feb, Dietary counseling and surveillance (ICD-10 - Z71.3) Healthy eating material was published Feb, Hypertension (ICD-10 - I10) Managing high blood pressure material was published On arb-above target, keep f/u with pcp/nephrology for further recommendation Feb, History of pancreatectomy (ICD-10 - Z90.410) Feb, Mixed hyperlipidemia (ICD-10 - E78.2) High cholesterol material was published 07/2022 ldl 135. f/u with pcp for further recommendation Feb, Insulin pump titration (ICD-10 - Z46.81) Tandem control iq insulin pump dexcom g6 cgm Basal MN 1.08 changed to 1 units/hr (TBI 24 units/day) ICR MN 1:7 ISF MN 1:30 Target 110 Active insulin time 5 hours updated weight/tdi in control iq Feb, BMI 23.0-23.9, adult (ICD-10 - Z68.23) see above [facility] Other 09-08-2023 Evaluation note* Encounter Date Diagnosis Assessment Notes Treatment Notes Treatment Clinical Notes Feb, Nausea & vomiting (ICD-10 - R11.2) requesting phenergan in a 3 month supply as the pharmacy has issues getting it in stock. Feb, Hospital discharge follow-up (ICD-10 - Z09) recently discharged from [facility] where she presented due to vomiting blood, reports had EGD which was neg. Is scheduled to have capsule study done. No more vomiting. Reports did not need any blood transfusions while inpatient. States hgb was in the 8s on discharge which is about her normal. She feels over all well. No concerns today. She is going to go go on vacation in a week or so for a [place] diving competition. She is requesting a letter of clearance. i did provide this for her. Wrote she is okay for activities as tolerated. she is agreeable to this plan and knows her limits-report she wont mar[place] g dive if feeling poorly. Feb, Type 1 diabetes mellitus with hyperglycemia (ICD-10 - E10.65) reports sugars are good and will follow with Rudy next week. [facility] Other 08-15-2023 Evaluation note* Encounter Date Diagnosis Assessment Notes Treatment Notes Treatment Clinical Notes Jan, Type 1 diabetes mellitus with diabetic chronic kidney disease (ICD-10 - E10.22) [facility] Other 08-14-2023 Evaluation note* Encounter Date Diagnosis Assessment Notes Treatment Notes Treatment Clinical Notes Jan, Type 1 diabetes mellitus with hyperglycemia (ICD-10 - E10.65) Pritesh came in today for a download and evaluation of her Tandem report after switching to Tandem insulin pump. States she likes the Tandem pump much better than the Medtronic pump. Her average blood glucose was 168, with a low of 55 and a high of 400. Her blood glucose was in target range 65% of the time, 35% high, 0% low. She used an average of 51.89 units of insulin per day, 47% basal (24.19 units), 23% food bolus (11.92 units), 9% correction (4.82 units), and 21% auto correction (10.97 units). Rudy Rm APRN calculated new setting for basal rate of 1.08 units per hour. Pritesh states she was having some difficulty changing her site with the infusion set needle bending during insertion. We discussed the steps in applying a new infusion set and using correct technique and modifying where needed. Patient was given 5 infusion set samples because she had to change a few of her own early due to mistakes when inserting the site. Patient requested a new prescription for Humalog insulin. Patient was reminded of the timing of her bolusing. Pt states due to her history of GI issues and nausea, she has discussed with Xochilt Rm APRN to bolus 15 minutes after the start of her meals. Also reminded pt to accurately count her carbohydrates. Pt reports she is counting her carbs and has been hospitalized several times in the most recent couple of weeks. Pt reports being admitted in [facility] 01/10/23-01/13/23 and ER visit 01/15/23. During the times of admission, pt states hospital staff requested pt to bolus several times with her pump while receiving IV steroid infusions. Pt states she went skydiving yesterday and suspended her insulin pump during the times of skydiving. 45 minutes were spent evaluating the patient's report, discussing the findings, educating on changing of infusion set and setting change by Dave YEBOAH, RN Pump Settings Basal: MN 1.08 units/hr (TBI 25.92) ICR: MN 1:7 ISF: MN 1:30 Reviewed pump/cgm download 01/04/23-01/17/23 : Avg glucose 168. >180-35%, 70-180-65%, <70-0%. TBI reduced, changed basal setitngs; see above. Bong KRAFT, LABORATORY WORKER-C, BC-ADM [facility] Other 08-08-2023 Evaluation note* Encounter Date Diagnosis Assessment Notes Treatment Notes Treatment Clinical Notes Jan, Cyst of ovary, unspecified laterality (ICD-10 - N83.209) [facility] Other 07-05-2023 Evaluation note* Encounter Date Diagnosis Assessment Notes Treatment Notes Treatment Clinical Notes Dec, Type 1 diabetes mellitus with diabetic chronic kidney disease (ICD-10 - E10.22) [facility] Other 06-30-2023 Hospital Discharge instructions* Discharge Instructions* SWAPNIL Carson CNP - 12/04/2022 9:32 PM EDT Continue your home medications as directed, increase fluid intake. Follow-up with your primary care, return for worsening symptoms documented in this encounterB[facility] History of Present illness Narrative* Chuck Lowe MD - 12/04/2022 4:22 PM EDT Care assumed from the [employer] at the conclusion of her clinical shift while pending reevaluation after droperidol administration. Plan was for discharge. The patient has a history of migraine headaches. Noted to present today with similar presentation to prior. Per the evaluating [employer] there is no indication for imaging evaluation as there was no suspicion for ICH/mass/infectious process. Patient was given the number of medications with minimal change in the headache. As this is a chronic process, well-documented on multiple prior occasions with no new features the patient will be discharged from the emergency department with advice for outpatient follow-up. documented in this encounterB[facility] Hospital Discharge instructions* Discharge Instructions* Antonino Reynolds PA-C - 11/19/2022 3:03 PM EDT Follow-up with your neurologist 5 to 7 days for reevaluation. Continue home medications as prescribed. Promptly return to emergency department for new, changing, worsening of symptoms or other concerns. * Attachments The following attachments cannot be sent through Care Everywhere. * Migraine Headache (Greenlandic) documented in this encounterB[facility] Miscellaneous Notes* Telephone Encounter - Constance Almonte RN - 10/05/2022 3:55 PM EDT SPECIALTY CARE COORDINATION FOLLOW-UP NOTE Spoke to Pritesh. She states that she not sure if her tailbone is broken and that she is awaiting to hear of the CT results. She says that she has not had a bowel movement since last Wednesday but is passing little gas. Saysthat her Hop Worker wants to know if she can take enemas. It was recommended no enemas but can use suppositories. She states that she is not eating and drinking very little. She know that she is constipated because of her stomach. Advised her to go to the ED for IV hydration and possibly she may need a tube to be inserted to give her the Golytely to help move her bowels. She states she understands. She thanked me for the phone call Signature Constance Almonte RN October 05, 2022 documented in this encounterC[facility]05-01-2023 Miscellaneous Notes* Telephone Encounter - Dorina Kevin - 10/05/2022 9:59 AM EDT [place]ritesh [place] [phone], request to speak to a nurse. documented in this encounterCleveland Clinic Foundation04-28-2023 Evaluation note* Encounter Date Diagnosis Assessment Notes Treatment Notes Treatment Clinical Notes Sep, History of GI bleed (ICD-10 - Z87.19) cannot tolerate liquid as prescribed by her GI. Will send in pill. Sep, Effusion, left knee (ICD-10 - M25.462) injury, i do believe she has an internal derangement of her knee, will xray and get MRI she is in agreement. I do not feel PT is warranted at this time given her severity of pain. MRI is needed for presurgical planning. Sep, Left medial knee pain (ICD-10 - M25.562) Sep, Internal derangement of left knee (ICD-10 - M23.92) Sep, Buttock pain (ICD-10 - M79.18) injured it maria g diving. will xray. [facility] Other 03-30-2023 Evaluation note* Encounter Date Diagnosis Assessment Notes Treatment Notes Treatment Clinical Notes Aug, Type 1 diabetes mellitus with hyperglycemia (ICD-10 - E10.65) [facility] Other 03-14-2023 Evaluation note* Encounter Date Diagnosis Assessment Notes Treatment Notes Treatment Clinical Notes Aug, Chronic anemia (ICD-10 - D64.9) will update labs to ensure hgb is stable. she agrees. she will call after she gets it done so we can get results since she is not getting [place] [facility] [place] she will follow with GI 09/03. she has had 2 hospital stays for GI issues, bleeding/nausea/vo miting. She does not seem much better in that regard. We will work on getting records from hospital stay. [facility] Other 02-24-2023 Evaluation note* Encounter Date Diagnosis Assessment Notes Treatment Notes Treatment Clinical Notes Jul, Left upper arm pain (ICD-10 - M79.622) thinking this pain is radicular in nature does have weakness. hard to tell heidi last visit she had weak left arm and left leg. I sent her to the ER. she was to be admitted for further work up but she left AMA from the ER. She reports her neurologist did order MRI head for next week. If this does not show any signs of old stroke that could coorelate with this left upper extremity weakness then we need to look further in the neck with cervical MRI. in the mean time she will do a round of prednisone and PT at [facility]. She is in agreement today with the plan. Will keep us updated. Jul, General weakness (ICD-10 - R53.1) would like PT for general weakness as well. Jul, Left arm weakness (ICD-10 - R29.898) [facility] Other 02-15-2023 Evaluation note* Encounter Date Diagnosis Assessment Notes Treatment Notes Treatment Clinical Notes Jul, Insulin long-term use (ICD-10 - Z79.4) Jul, Type 1 diabetes mellitus with diabetic chronic kidney disease (ICD-10 - E10.22) Paola Rendon 07/22/2022 10:23:57 AM >4oz apple juice provided for bs of 92. CGM glucose 15 minutes later 145. 1. Uncontrolled, a Type 1 diabetes with A1c of 7.7% 2. Blood glucose above target. According to cgm download 07/09/22-07/22/22: Avg sensor glucose 139. >250-10%, >180-12%, 70-180-65%, <70-10%, <54-3%. Reviewed download with pt, pt got new loaner pump and hasn't started automode yet. Recommend she start automode yarely to reduce risk of hypo/hyperglycemia. Pt verbalizes understanding. Pt asking if ok to use pump while jumping from airplane- she reports jumps are about 30 minutes- would recommend taking pump off and carrying glucose source in her pocket as well as fast acting insulin pen/needles and reapply insulin pump within an hour of jump. If unable to apply insulin pump in the hour would need to administer fasting acting insulin according to icr/isf, pt verbalizes understanding. Pt. has a very complex medical history pancreatectomy and AID system that reduces the alarm fatigue is advised. Reports medtronic warranty up 08/12/22 would like to switch to tandem control iq insulin pump with dexcom g6 cgm- message sent to Rodrigo IBRAHIM to contact tandem rep. to proceed with order. 3. Patient is alert, oriented and receptive to making changes or counseling Notes: Seen for an assessment of current glucose pattern, changes in treatment plan, counseling and coordination of care related to diabetes, risks, and benefits of treatment, medications, side effects. Given handouts to reinforce concepts reviewed during counseling, see scanned notes. TOPICS REVIEWED: 1. Time was spent reviewing: a. Basic concepts of diabetes, progressive beta cell , concepts of basal/bolus/correct page insulin requirements. Basal: The goal is fasting blood glucose of 90-130mg. If fasting blood glucose starts to run under 100mg 3x's/ week, decrease dose by 10%. Bolus: The goal is to hold the blood glucose level steady meal to meal. If pt. is going to have increased physical activity after a meal, decrease the schedule meal dose prior to the activity by 30-50%. If pt. skips a meal do not take this dose. Correction: The goal is to correct an elevated glucose back into the 100-150mg range b. Nutrition: Concepts of healthy diet reviewed, encouraged to decrease saturated fat in diet and increase non-starchy vegetables and fruits in diet. BMI: Pt. needs to select one small change to decrease caloric intake or increase physical activity to help decrease weight. c. Correct treatment of hypoglycemia, carry a glucose source at all times on your person, in vehicles, and at bedside. Can use glucose tablets/4, four ounces of pop or juice equal to 15 G of carbohydrate. Blood glucose should be 100 mg/dl or higher when driving. d. ADA glucose goals for age and medical complexity reviewed e. Patient questions addressed 2. Activity/exercise: Encouraged to start any form of physical activity. Start low level and increase slowly to a minimal goal of 150 minutes/week. Limit activity to what is allowed by other issues such as cardiac, pulmonary or orthopedic restrictions. 3. Standards of care: Reminded to have an annual dilated eye exam, A1C every 3 months, urine testing for microalbumin once/year, check feet daily and report any cuts or sores that do not appear to be healing. 4. Meter: Plan to check blood glucose: Please check blood glucose levels 6 times/day. Back to back meals reveal effectiveness of bolus dosing. The Blood glucose data is used to determine insulin doses, and confirm symptoms for hypoglycemia and hyperglcyemia.5. [facility]. Contact office if any issues or concerns with patterns of hypoglycemia, hyperglycemia, or diabetes medication issues. 6. Prescriptions: Reports has back up insulin if pump fails. Refill request for Novolog and Glucagon/guardian cgm sent to [facility] in [place] 07/22/22. Sample tresiba u200/lyumjev u100/ pen needles given today for back up if insulin pump fails/off- with written instructions. 7. Prescriptions will not be filled unless you are compliant with follow up appointments or have a follow up appointment scheduled as ordered by your provider. Refills should be requested at the time of your visit. Jul, Dietary counseling and surveillance (ICD-10 - Z71.3) Healthy eating material was published Jul, Hypertension (ICD-10 - I10) Managing high blood pressure material was published BP above target- f/u with pcp for further recommendation Jul, History of pancreatectomy (ICD-10 - Z90.410) Jul, Mixed hyperlipidemia (ICD-10 - E78.2) High cholesterol material was published 07/2022 ldl 135. f/u with pcp for further recommendation consider statin therapy Jul, Insulin pump titration (ICD-10 - Z46.81) Using an insulin pump material was published, Diabetes and healthy eating material was published, Low blood glucose and diabetes material was published Medtronic 670 with guardian cgmBasal: MN 1.25 units/hr (TBI 30 units/day) ICR Mn 1:7ISF Mn 1:30 Active insulin time 3 hours Target 100/140Bolus wizard on Note: Remote bolus turned off as recommended by medtronic medical record specialist correction 07/22/22 Jul, BMI 23.0-23.9, adult (ICD-10 - Z68.23) see above [facility] Other 02-03-2023 Evaluation note* Encounter Date Diagnosis Assessment Notes Treatment Notes Treatment Clinical Notes Jul, Left leg weakness (ICD-10 - R29.898) concern for stroke given significnat unilateral weakness. Discussed this with pt. strongly recommended Er. she reports her dad brought her and she will try to get him to take her to [facility]. [place] [facility] [place] and gave report to Dr. Chandler. I did confirm per [employer] she did go to [facility]. Jul, Left arm weakness (ICD-10 - R29.898) [facility] Other 02-01-2023 Evaluation note* Encounter Date Diagnosis Assessment Notes Treatment Notes Treatment Clinical Notes Jul, Chronic kidney disease, stage 3b (ICD-10 - N18.32) Likely from diabetic and hypertensive nephropathy. Patient needs better control of blood pressure to preserve kidney function. Hemoglobin A1c close to target. I asked the patient to keep hemoglobin A1c less than 7%. I will check renal ultrasound along with UA with protein to creatinine ratio. I asked the patient to avoid NSAIDs. Follow-up with the patient 3 to 4 months Jul, Diabetic nephropathy associated with type 1 diabetes mellitus (ICD-10 - E10.21) Patient has been diabetic for the last 15 years. Last hemoglobin A1c 7.4%. Patient needs better control of diabetes to preserve kidney function. Patient is working with her PCP for this purpose Jul, Hypertensive nephropathy (ICD-10 - I12.9) Patient has not been able to take your oral blood pressure medication due to cyclic vomiting. She told me she has been having this issue since removing the pancreas in 2007. I will send the patient a prescription for clonidine patch. I asked the patient to go to emergency room if she develops chest pain, blurry vision, numbness or weaknesses Jul, Anemia, unspecified type (ICD-10 - D64.9) Last hemoglobin 9.3 g deciliter. I will check vitamin B12, folate, and iron storage [facility] Other [id number] NoteLanc[facility]01-30-2023 History of Present illness Narrative* Cheryl East DO - 07/06/2022 4:09 PM EST COLORECTAL SURGERY VIRTUAL VISIT FOLLOW UP I had a virtual visit with Ms. Raza today for follow after hospitalization for rectal bleeding . UPDATED HISTORY: Pritesh Raza is a 37 year old female was recently with GIB, colonoscopy and EGD -- no source of bleeding was identified PHYSICAL FINDINGS OF NOTE: General - Normal, healthy, cooperative, in no acute distress Able to interact verbally by video conference Pulmonary - respiratory effort normal Abdominal - Not performed Motor - patient seen sitting with Normal appearing strength and coordination Anorectal exam - Not Performed Medical Decision Making: Assessment Assessment & Diagnosis: Pritesh Raza is a 37 year old female s/p robotic assisted suture rectopexy , recently hospitalized with GIB, chronic constipation Data Reviewed: Tests & Documents Reviewed/ordered: Review of prior notes from chart I have independently interpreted: CT Abdomen, CT Pelvis I have discussed Pritesh Raza's treatment plan and/or results with patient . Treatment plan: Scheduled to see Dr. Flowers , needs to continue working on bowel regimen . Occupational therapy order is placed per patient request. Follow up as needed Risk of morbidity, mortality and/or complications of treatment plan: low I spent a total of 25 minutes on the date of the service which included counseling and educating the patient/family/caregiver and communicating results to the patient/family/caregiver. documented in this encounterC[facility]01-26-2023 NoteL[facility]01-26-2023 [facility]01-25-2023 NoteHNO ID: [id number] Author: Jeny Benitez RN Service: Nursing Author Type: Registered Nurse Type: Nursing Progress Note Filed: 07/01/2022 12:23 PM Note Text: Obtained care at this time, received report from Jamie MEJÍALancaster [facility] Hospital01-25-2023 NoteL[facility]01-24-2023 NoteL[facility]01-24-2023 NoteL[facility]01-23-2023 History of Past illness Narrative* Problem Noted Date Resolved Date Malnutrition of mild degree 06/29/202206/08 Colitis 06/27/2022 07/02/2022 Rectal prolapse 05/14/2022 05/15/2022 documented as of this encounter (statuses as of 07/07/2022) [facility]01-23-2023 History of Past illness Narrative* Problem Noted Date Resolved Date Malnutrition of mild degree 06/29/202206/08 Colitis 06/27/2022 07/02/2022 Rectal prolapse 05/14/2022 05/15/2022 documented as of this encounter (statuses as of 10/05/2022) [facility]01-23-20[facility] History of Past illness Narrative* Problem Noted Date Resolved Date Malnutrition of mild degree 06/29/202206/08 Colitis 06/27/2022 07/02/2022 Rectal prolapse 05/14/2022 05/15/2022 documented as of this encounter (statuses as of 10/06/2022) [facility]01-23-2023 [facility]01-23-2023 Note [facility]01-22-2023 [facility]01-22-2023 NoteL[facility]01-21-2023 [facility] 06-27-2022 [facility]01-21-2023 NoteL[facility]01-13-2023 Miscellaneous Notes* Telephone Encounter - Letty Hernandez PA-C - 06/19/2022 1:25 PM EST Called patient back. She reports: -She has had Bronchitis for 1-1.5 weeks. Started on Doxycycline 100mg BID, Teslon perle cough pills. Prednisone 20 mg twice a day. Was okay taking these prior to today. -Light brown stools last night to this early this morning. Then about one hour ago formed light brown stool that then ended with black stool. RUQ pain. Has some lower pelvic discomfort. Patient did not have stool discoloration or abdominal pain yesterday. -Fever Wednesday and Fever . -Trying to eat and drink. Having nausea due to med back order. Recommendations: Advised the patient that these symptoms could be related to her bronchitis ( with medication use) or a possible GI bleed. I highly recommended that she go to the emergency room to further get evaluated for a possible bleed or other cause. She describes the feeling of needing to have a bowel movement. She would like to see if her stool is still dark and if she has abdominal pain. If the stool is still dark and she has abdominal pain she agreed to go get further evaluated. Again I highly suggested for her to go to the emergency department. Patient thanked me for my time and recommendations. Letty Hernandez PA-C * Telephone Encounter - Dorina Ortega [facility] - 06/19/2022 12:48 PM EST Pritesh Hunter Philipptngerberer [phone], experiencing black stool & abdominal pain. She's taking antibiotic & steroids for bronchitis. documented in this encounterCleveland Clinic Foundation01-09-2023 Evaluation note* Encounter Date Diagnosis Assessment Notes Treatment Notes Treatment Clinical Notes Jun, Bronchitis (ICD-10 - J40) Acute bronchitis material was printed Drink plenty fluids, get plenty of rest. Continue home medications as prescribed. Take the doxycycline and prednisone as prescribed until gone. Use the Tessalon Perles as prescribed as needed for cough. Continue to use your albuterol inhaler as prescribed. Follow-up with your family physician if no improvement in 2 to 3 days [facility] Other 01-03-2023 Miscellaneous Notes* Telephone Encounter - Letty Hernandez PA-C - 06/09/2022 2:48 PM EST Called patient back without answer. Left voicemail with my name and office number to call back without any identifying words in the message. Letty Hernandez PA-C * Telephone Encounter - Dorina Ortega [facility] - 06/09/2022 9:03 AM EST Pritesh Raza [phone], says something sharp is coming out of her incision. documented in this encounterCleveland Clinic Foundation12-27-2022 NoteLancaster [facility] Hospital12-27-2022 History of Present illness Narrative* Fern [place] APRN.ASSISTED LIVING NURSING DIRECTOR - 06/02/2022 2:00 PM EST COLORECTAL SURGERY Post-Op Visit Pritesh Raza returns for a post-operative visit after undergoing surgery, on 05/14/[address] East. PREOPERATIVE DIAGNOSIS: recurrent full thickness rectal prolapse POSTOPERATIVE DIAGNOSIS: recurrent full thickness rectal prolapse OPERATION PERFORMED: Robotic assisted suture rectopexy, enterocele repair INDICATIONS: 37 yo woman with recurrent rectal prolapse, she previously underwent Altemeier procedure. She presents today for robotic assisted rectopexy. OPERATIVE FINDINGS: Normal uterus and ovaries. Deep pouch of Dheeraj, significant pelvic adhesions in the rectovaginal septum and presacral plane. Patient most recently went to ED on 05/31/2022 for RLQ pain that migrated to above pelvic area. Since her visit with ED she states she is doing well and is no longer having RLQ pain. She is currentlyon her normal bowel regimen of BID Amtiza, Miralax and colace and is currently going twice a day. Her stool is soft an formed. She denies any f/c and no vomiting since the . She normally at baseline has some nausea. She overall feels better and looks better in office today. Her post-operative period was complicated by two visits to ED locally. She is tolerating diet with an improving appetite, stable weight, and energy level is improving . She has no specific complaints. BM: See Above. Bowel stoppers: none. Current diet: GI soft. N/V nausea at baseline no vomiting since . F/C no. Incision/wound is good and healed. Current Outpatient Medications Medication Sig Dispense Refill acetaminophen (TYLENOL) 500 mg tablet Take 2 tablets by mouth every 6 hours. qgjpki-gvzkcuwe-nhrnyfw (CREON 12) 12,000-38,000 -60,000 unit delayed release capsule Take 3 capsules by mouth as needed. Take three capsules with three larger meals, take two capsules with smaller meals 450 capsule 1 omeprazole (PRILOSEC) 40 mg capsule Take 40 mg by mouth once daily. lubiprostone (AMITIZA) 24 mcg capsule Take 1 capsule by mouth twice daily with meals. 60 capsule 3 neomycin 500 mg tablet Take 2 tablets by mouth at 9pm and take 2 tablets by mouth at 11pm the nightbefore surgery. 4 tablet 0 QUEtiapine (SEROQUEL) 100 mg tablet Take 50 mg by mouth once daily. ondansetron HCl (ZOFRAN INTRAVENOUS) Inject 8 mg intravenously as needed. lubiprostone (AMITIZA ORAL) Take 24 mcg by mouth twice daily. losartan (COZAAR) 100 mg tablet Take 100 mg by mouth once daily. hydroCHLOROthiazide (HYDRODIURIL, ESIDRIX) 25 mg tablet Take 25 mg by mouth once daily. amLODIPine (NORVASC) 10 mg tablet Take 2.5 mg by mouth once daily. sertraline (ZOLOFT) 100 mg tablet Take 100 mg by mouth once daily. docusate sodium (COLACE) 100 mg capsule Take 100 mg by mouth twice daily. polyethylene glycol 3350 (MIRALAX, GLYCOLAX) 17 gram packet Take 1 Packet by mouth as needed (Constipation). 10 Packet 0 diphenhydrAMINE (BENADRYL) 25 mg capsule Take 25-50 mg by mouth every 6 hours as needed. tiZANidine HCl (ZANAFLEX) 4 mg capsule Take 8 mg by mouth twice daily. zolpidem (AMBIEN) 5 mg tablet Take 5 mg by mouth daily at bedtime. ALPRAZolam (XANAX) 1 mg tablet Take 1-2 mg by mouth three times daily as needed. insulin aspart U-100 (NOVOLOG) 100 unit/mL Inject 6 Units subcutaneously four times daily. insulin aspart U-100 (NOVOLOG) 100 unit/mL Inject subcutaneously four times daily as needed. Per Sliding scale 150-180 1 unit 181-210 2 units 211-240 3 units 241-270 4 units 271-300 5 units 301-330 6 units 331-360 7 units 361-390 8 units 391-420 9 units 421- 450 10 units promethazine (PHENERGAN) 50 mg/mL injection Inject 25 mg intravenously every 4 hours as needed. No current facility-administered medications for this visit. ALLERGIES Allergen Reactions Demerol [Meperidine* Intolerance Dicyclomine Anaphylaxis, Rash, Other: See Comments Stomach cramps. BENTYL Duracef [Cefadroxil] Hives, Swelling, Itching, Shortness of Breath Erythromycin Hives, Swelling, Itching, Shortness of Breath Levaquin [Levofloxa* Hives, Swelling, Itching, Shortness of Breath Metronidazole Other: See Comments, Anaphylaxis, Shortness of Breath Actos [Pioglitazone* Rash Bactrim [Sulfametho* Rash Cipro [Ciprofloxaci* Rash Clindomycin [Clinda* Hives Macrobid [Nitrofura* Shortness of Breath Penicillins Vomiting Reglan [Metoclopram* Hives Reglan [Metoclopram* Rash Toradol [Ketorolac] Rash Tramadol Rash vomiting also Vancomycin Hives LMP 12/10/2018 Abdominal examination: soft, non-distended, and non-tender without masses or hernias. Wound is wellhealed. Anorectal: perianal area intact, no excoriation or lesions present. No fissures or hemorrhoids seen. Java Sybase Developer present: Yes, Darlene Assessment Assessment: Appetite: Eating and drinking well BMs: See HPI Incision/wound: healed Overall doing good today, patient upon exam looks extremely better and in good spirits. Patient agrees that she feels much better as well. It was discussed about slowly advancing diet at 4 week larry,one new food in small amount a day at a time. To combat gas patient advised to take Beano before eating (right before), patient if already has gas can take GasX to help evacuate. She is to continue her bowel regimen as well as use a squatty potty with bowel movements. An order for pelvic rehab was placed along with instructions on how to set up near home. 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 East. Patient agreeable and in good spirits when leaving office. She would like to have follow up in beginning of July with Dr. East. Plan: OK to slowly begin to advance diet, one food at a time, advised to keep diary to track response to adding new foods Ok to lift up to 15 lbs, advised to wait at least 3 months before very heavy/strenuous lifting and core work- we discussed hernia risk Use Beano before eating new meals, Gas X if already have gas. Start pelvic floor therapy rehab Continue bowel regimen Call with any questions or concerns. Fern Colorado APRN.CASTRO documented in [facility] encounterC[facility]12-27-2022 Instructions* Patient Instructions* Fern Colorado APRN.CNP - 06/02/2022 1:32 PM EST Start physical therapy near you. Order placed and given today Slowly tranistion into regular diet starting 06/14/2022 No repetitive movements and lifting restrictions in place for 2 months. Call with any questions or concerns. documented in this encounterCleveland Clinic Foundation12-25-2022 Hospital Discharge instructions* Discharge Instructions* Fahad Mtz MD - 05/31/2022 10:01 PM EST Take your laxative as soon as you get home. Continue current medications as prescribed. Follow-up with your primary care provider soon as possible. Seek medical attention for any acute concerns * Attachments The following attachments cannot be sent through Care Everywhere. * Nausea and Vomiting (Greenlandic) * Abdominal Pain (Greenlandic) documented in this encounterBON [employer] Phone: [phone] 801-292712-22-2022 Hospital Discharge instructions* Discharge Instructions* Kian Woodson MD - 05/28/2022 2:34 PM EST Please take the medications prescribed follow-up with your primary care physician return to the ER for any progression of your symptoms. Please make sure to stay plenty hydrated by drinking 64 ouncesof fluids a day. Follow-up with your primary care physician and/or your specialist on Wednesday as scheduled. * Attachments The following attachments cannot be sent through Care Everywhere. * Nausea and Vomiting (Greenlandic) * Abdominal Pain (Greenlandic) documented in [facility]CAR[facility] Phone: [phone] Miscellaneous Notes* Telephone Encounter - Constance Almonte RN - 05/20/2022 10:25 AM EST SPECIALTY CARE COORDINATION FOLLOW-UP NOTE Spoke to Pritesh. She is going home from her local ED. Denies cramping, nausea or vomiting and the NG is out. Discussed with her that Dr. East was accepting her as a transfer from the ED. She states that doing ok and wants to go home. She asked how long to hold off on carbonated beverages. Explained that at least 6 weeks if not longer. She need to be eating non gas producing foods before having the carbonated beverages. She stated she understood and thanked me for the phone call. Signature Constance Almonte RN May 20, 2022 documented in this encounterCleveland Clinic Foundation12-14-2022 Miscellaneous Notes* Telephone Encounter - Mitalielsa Mccartney Jordan Kevin - 05/20/2022 8:24 AM EST Pritesh Hunter Luz [place] [phone], need guidance on what to do. She's still in local ED. documented in this encounterC[facility]12-09-2022 [facility]-2022 NoteHNO ID: [id number] Author: Waleska Bernstein RN Service: Nursing Author Type: Registered Nurse Type: Nursing Progress Note Filed: 05/14/2022 2:10 PM Note Text: EKG reviewed by Dr. Nate Lemus. Dixon Bernstein RnLancaster Municipal Hospital12-08-2022 NoteHNO ID: [id number] Author: Waleska Bernstein RN Service: Nursing Author Type: Registered Nurse Type: Nursing Progress Note Filed: 05/14/2022 1:57 PM Note Text: Pre op stat EKG completed now. Faustino Bernstein RNLancaster [facility] Hospital12-08-2022 History of Past illness Narrative* Problem Noted Date Resolved Date Rectal prolapse 05/14/2022 05/15/2022 documented as of this encounter (statuses as of 05/20/2022) [facility]12[facility] History of Past illness Narrative* Problem Noted Date Resolved Date Rectal prolapse 05/14/2022 05/15/2022 documented as of this encounter (statuses as of 06/08/2022) [facility] History of Past illness Narrative* Problem Noted Date Resolved Date Rectal prolapse 05/14/2022 05/15/2022 documented as of this encounter (statuses as of 06/11/2022) [place] [address]-08-2022 History of Past illness Narrative* Problem Noted Date Resolved Date Rectal prolapse 05/14/2022 05/15/2022 documented as of this encounter (statuses as of 06/19/2022) [facility]12[facility] History and physical note* Fern Colorado APRN.ASSISTED LIVING NURSING DIRECTOR - 05/13/2022 11:30 AM EST COLON AND RECTAL HISTORY AND PHYSICAL EXAMINATION SERVICE DATE: 05/08/2022 Primary Care Physician: Jalyn Sanz DO Chief complaint: Preoperative examination HPI: Pritesh Raza is a 37 year old female with PMHx of rectal prolapse is here for preoperative examination for robotic assisted rectopexy with Dr. East on 05/14/2022 Review of Systems / [facility] screen: Do you have difficulty climbing a full flight of stairs without feeling short of breath? no Do you require oxygen for your breathing or have your gone to an emergency department because of breathing problems?no Are you on dialysis or have you been told that your kidneys do not work well as they should? yes goes in and out of stage 3 kidney failure. Do have an implanted cardiac device (pacemaker, defibrillator etc.) that has not been checked in the last 6 months? no Have you had an organ transplant? no Have you been told that you had excessive bleeding during surgical procedures or do you take blood thinning medications other than aspirin? yes states she is anemic, prior to blood products Bendadrylis needed. Have you ever had a heart attack, heart stents/surgery, valve problems, or other heart problems? no Have you had a stroke, seizures, or unexplained loss of consciousness? no Do you have a neurologic condition like Parkinson's disease or multiple sclerosis? yes hand tremor that is intermittently present. Have you or a blood relative had a life-threatening reaction to anesthesia? No, she has woken up onanesthesia in the past. Do you have cirrhosis of the liver or other liver disease? yes Fatty liver disease. Have you had a blood clot within the past year? no Do you take insulin or other injections for diabetes? yes insulin pump and continuous glucose monitor. Do you have sleep apnea or have you been told you may have sleep apnea? no Do you have other implanted devices (deep brain stimulator, spinal cord stimulator, etc.)? Yes powerport on the right chest Physical Exam: Ht 174 cm (5' 8.5 ) Wt 71.6 kg (157 lb 12.8 oz) LMP 12/10/2018 BMI 23.64 kg/m General: Alert and oriented, No acute distress, Healthy appearance Skin: Normal color, no rash, no lesions. HEENT: EOM, pupils equal, round and reactive., No carotid bruits Cardiovascular: Normal S1 & S2, no rubs, murmurs or gallops. No JVD. Pulse regular. Lungs: Normal breath sounds, no wheezes or crackles., No chest deformities or chest wall tenderness. Abdomen: Soft, non-tender, no rigidity., No masses or organomegaly. Extremities: No deformity, no edema or tenderness, no joint swelling or clubbing. Neurological: Normal cognition and motor skills. Gait normal. No weakness or sensory deficit. Pulses: Carotid and radial pulses normal +2. Pedal pulses normal +2. Anorectal: Deferred Java Sybase Developer present: No Assessment Medical Decision Making: Assessment & Diagnosis: Pritesh Raza is a 37 year old female who is here for preoperative examination for surgery with Dr. East. Patient stated will move glucose monitoring device on to the arm for abdominal region and will place glucose pump on left leg before surgery. There is no known pertinent medical condition which may affect carlitos-operative course Patient does have some issues but is seeing [facility] today to address those concerns. Data Reviewed: Tests & Documents Reviewed/ordered: Review of prior notes from Dr. East I have discussed Pritesh Raza's treatment plan and/or results with patient and family. Treatment plan: I have reviewed with the patient their current symptoms, changes since our last visit, the above listed documents and physical exam. Based on this, the following surgery is planned: robotic assisted rectopexy. The risks, benefits and anticipated outcomes of the procedure, the risks and benefits of the alternatives to the procedure and the roles and tasks of the personnel to be involved were discussed with the patient and the patient consents to the procedure and agrees to proceed. Informed consent has been obtained. The following details surrounding surgery were discussed: Preoperative prep: Mechanical Length of hospital stay: Admit 1-3 days Anticipated diet at time of discharge from the hospital: GI Soft Anticipated activity restrictions at time of discharge from the hospital: Lifting is restricted to 5 lbs for 6 weeks. No heavy lifting, pushing, or pulling for 2 months. No driving while taking narcotics. No repetitive movements Prior to surgery, the following consults have been requested: Anesthesia, [facility] Nurse Pre-op, and Pre-op Clinic Prior to surgery, the following lab tests have been ordered: CBC, CMP, Type & Screen, HGB A1C Additional counseling: Patient given verbal and written preop instructions and voices comprehension and compliance. Risk of morbidity, mortality and/or complications of treatment plan: low documented in this encounterC[facility] Foundation12-07-2022 History and physical note * Carlton Aburto APRN.CNP, JOSE MANUEL - 05/13/2022 8:40 AM EST HISTORY AND PHYSICAL EXAMINATION SERVICE DATE: 05/13/2022 SERVICE TIME: 0840 PRIMARY CARE PHYSICIAN: Jalyn Sanz DO REASON FOR VISIT: Pritesh Raza is a 37 year old female who is scheduled for PROCTECTOMY PARTIAL W/O ANASTOMOSIS PERINEAL APPROACH at the request of Dr. Cheryl East for consultation. My final recommendation will be communicated back to the requesting physician by way of shared medical record or letter. The patient has the following: ACTIVE PROBLEM LIST Recurrent Acute Pancreatitis Hematemesis Abdominal Pain Nausea and Vomiting Diabetes Mellitus (Hcc) Severe Protein-Calorie Malnutrition (De Souza: Less Than 60% of Standard Weight) (Hcc) Summary Anemia, Unspecified Chronic Kidney Disease, Unspecified Essential (Primary) Hypertension Chronic Pancreatitis (Hcc) History of Pancreatectomy History of Anesthesia Complications Subjective CHIEF COMPLAINT: Pre-Op Evaluation HPI: Pritesh Raza is a 37 year old female who is status post Whipple procedure, with recurrent rectal prolapse status post perineal rectosigmoidectomy at [place]. Patient states she has to manually push rectum back multiple times per day. She is on laxatives and stool softeners to prevent constipation. She continues to experience mild abdominal pain. Scheduled for the above-mentioned surgery for management. She presents to [facility] today for preop exam. Denies fevers, chills, nausea, vomiting, abdominal pain,chest pain, and SOB. Patient is scheduled for the above procedure on 05/14/2022. PAST MEDICAL HISTORY Diagnosis Date Hypertriglyceridemia PICC (peripherally inserted central catheter) in place 12/2013 as of 07/02/2014 Recurrent acute pancreatitis 12/02/2009 S/P insertion of intrathecal pump Type II or unspecified type diabetes mellitus without mention of complication, uncontrolled PAST SURGICAL HISTORY Procedure Laterality Date CORRECT RECTAL PROLAPSE OTHER SURGICAL HISTORY (PLEASE SPECIFY) HX splenectomy PANCREAS SURGERY HX 12/05/2013 removal PAST SURGICAL HISTORY OF Whipple surgery PAST SURGICAL HISTORY OF right ankle surgery x2 PAST SURGICAL HISTORY OF right knee surgery x2 PAST SURGICAL HISTORY OF nerves removed in L foot PAST SURGICAL HISTORY OF mediport placements x3 PAST SURGICAL HISTORY OF intrathecal pump placement and removal PAST SURGICAL HISTORY OF tonsil and adenoid removed PAST SURGICAL HISTORY OF perineal rectosigmidectomy PICC LINE INSERT/CONSULT 07/03/2014 FAMILY HISTORY Problem Relation Age of Onset other (HLD [Other]) Father other (DM [Other]) Father Anesthesia Problems No Family History SOCIAL HISTORY: Social History Tobacco Use Smoking status: Never Smokeless tobacco: Never Vaping Use Vaping Use: Some days Substance Use Topics Alcohol use: No Drug use: No Prior to Admission medications as of 05/13/22 0828 Medication Sig Last Dose Taking omeprazole (PRILOSEC) 40 mg capsule Take 40 mg by mouth once daily. Taking Yes QUEtiapine (SEROQUEL) 100 mg tablet Take 50 mg by mouth once daily. Taking Yes ondansetron HCl (ZOFRAN INTRAVENOUS) Inject 8 mg intravenously as needed. Taking Yes lubiprostone (AMITIZA ORAL) Take 24 mcg by mouth twice daily. Taking Yes losartan (COZAAR) 100 mg tablet Take 100 mg by mouth once daily. Taking Yes hydroCHLOROthiazide (HYDRODIURIL, ESIDRIX) 25 mg tablet Take 25 mg by mouth once daily. Taking Yes amLODIPine (NORVASC) 10 mg tablet Take 2.5 mg by mouth once daily. Taking Yes sertraline (ZOLOFT) 100 mg tablet Take 100 mg by mouth once daily. Taking Yes docusate sodium (COLACE) 100 mg capsule Take 100 mg by mouth twice daily. Taking Yes diphenhydrAMINE (BENADRYL) 25 mg capsule Take 25-50 mg by mouth every 6 hours as needed. Taking Yes tiZANidine HCl (ZANAFLEX) 4 mg capsule Take 8 mg by mouth twice daily. Taking Yes zolpidem (AMBIEN) 5 mg tablet Take 5 mg by mouth daily at bedtime. Taking Yes ALPRAZolam (XANAX) 1 mg tablet Take 1-2 mg by mouth three times daily as needed. Taking Yes dvamju-cmshjkpz-nuebzis (CREON 12) 12,000-38,000 -60,000 unit delayed release capsule Take 3 capsules by mouth as needed. snacks Taking Yes insulin aspart U-100 (NOVOLOG) 100 unit/mL Inject 6 Units subcutaneously four times daily. Taking Yes insulin aspart U-100 (NOVOLOG) 100 unit/mL Inject subcutaneously four times daily as needed. Per Sliding scale 150-180 1 unit 181-210 2 units 211-240 3 units 241-270 4 units 271-300 5 units 301-330 6 units 331-360 7 units 361-390 8 units 391-420 9 units 421- 450 10 units Taking Yes promethazine (PHENERGAN) 50 mg/mL injection Inject 25 mg intravenously every 4 hours as needed. Taking Yes lubiprostone (AMITIZA) 24 mcg capsule Take 1 capsule by mouth twice daily with meals. peg 3350-Electrolytes (GOLYTELY) 236-22.74-6.74 -5.86 gram suspension Refer to printed patient instructions that will be mailed to you. Patient not taking: Reported on 05/13/2022 Not Taking neomycin 500 mg tablet Take 2 tablets by mouth at 9pm and take 2 tablets by mouth at 11pm the nightbefore surgery. polyethylene glycol 3350 (MIRALAX, GLYCOLAX) 17 gram packet Take 1 Packet by mouth as needed (Constipation). Medication Comments documented by Elsa Valdes on 08/31/2014 at 0927. Pt states all medications are current ALLERGIES Allergen Reactions Demerol [Meperidine* Intolerance Dicyclomine Anaphylaxis, Rash, Other: See Comments Stomach cramps. BENTYL Duracef [Cefadroxil] Hives, Swelling, Itching, Shortness of Breath Erythromycin Hives, Swelling, Itching, Shortness of Breath Levaquin [Levofloxa* Hives, Swelling, Itching, Shortness of Breath Metronidazole Other: See Comments, Anaphylaxis, Shortness of Breath Actos [Pioglitazone* Rash Bactrim [Sulfametho* Rash Cipro [Ciprofloxaci* Rash Clindomycin [Clinda* Hives Macrobid [Nitrofura* Shortness of Breath Penicillins Vomiting Reglan [Metoclopram* Hives Reglan [Metoclopram* Rash Toradol [Ketorolac] Rash Vancomycin Hives COVID VACCINATION STATUS: Not vaccinated REVIEW OF SYSTEMS: PAIN ASSESSMENT: Pain Pain Level: 3 Pain Location: Rectum Description: Stabbing Duration Amount of Time: 3 Duration Units: Weeks Frequency: Continuous Intervention/Comfort measure: Medication;Heat;Cold General: Unintentional weight loss 50 pounds over a period of 3 months during episode of colitis. +Insomnia. Neuro: No history of TIA's, stroke, HEALTH COMPANION tumor, impaired sensorium, hemiplegia, paraplegia or quadraplegia. No neurological symptoms or problems. Respiratory: Positive for Asthma, as a child-resolved, Negative for Bronchitis, COPD, Current cough, Daily bronchodilator use for previous 3 months, Dyspnea, Home O2, Orthopnea none, Pneumonia within6 weeks (date), Recent hospitalizations for none, Tobacco Use, URI < 2 weeks, Wheezing Cardiovascular: Positive for: HLD, Hypertension, on rx, Negative for Recent HI, Angina, Arrhythmia,CAD, Chest Pain, CHF, PVD, Valvular Heart Disease, DVT/PE GI: Positive for constipation on Amitiza see HPI, colitis, fatty liver, history of familial hypertriglyceridemia which was complicated by chronic pancreatitis placed in the pain pump 2013 and subsequently underwent pancreatectomy in December 2013., Negative for Difficulty swallowing, GI bleed < 30 days, Esophageal varices < 6 months, Hepatitis, Ascites, ETOH > 2 drinks / day, Colon cancer, Re ctal cancer : Negative for dysuria, frequency, incontinence, decreased stream, hematuria, hesitancy, and nocturia >1 + Chronic kidney disease HOME APPLIANCES MECHANIC: Negative for abnormal vaginal bleeding, abnormal vaginal discharge. : Denies, Patient's last menstrual period was 12/10/2018. Endocrine: Diabetes Mellitus on insulin Hematology: No history of bleeding or clotting disorder. Pt is not taking anti- coagulation or platelet medications. No history of hematological symptoms or problems. Oncology: No history of CA metastasis, chemo within 30 days, or radiotherapy within 90 days. Has not lost 10% of body wt in 6 months. No history of oncological symptoms or problems. Psych: Anxiety, Depression on rx Musculoskeletal: Negative for joint pain or swelling, back pain or muscle pain. +on Zanaflex Skin: Negative for lesions, rash and itching. Objective PHYSICAL EXAM: VITALS: BP 119/80 Pulse 82 Temp (Src) 97.5 (Temporal) Ht 5' 8.5 (1.74m) Wt 157 lb 8 oz (71.4kg) SpO2 98% LMP 12/10/2018 BMI 23.60 kg/(m^2). General: Alert and oriented Skin: Normal color, no rash, no lesions. + insulin pump, RIGHT upper chest power port accessed. HEENT: EOM, pupils equal, round and reactive. Cardiovascular: Normal S1 & S2, no rubs, murmurs or gallops. No JVD. Pulse regular. Lungs: Normal breath sounds, no wheezes or crackles. Abdomen: Soft, non-tender, no rigidity., hypoactive bowel sounds Extremities: No deformity, no edema or tenderness, no joint swelling or clubbing. Neurological: Normal cognition and motor skills. Pulses: Radial pulses; left 2+ / right 2+. Diagnostic tests reviewed for today's visit: Lab Value Units Date High Low HB 9.7 g/dL 12/31/2021 15.5 11.5 HCT 32.4 % 12/31/2021 46.0 36.0 WBC 14.97 k/uL 12/31/2021 11.00 3.70 PLT 417 k/uL 12/31/2021 400 150 NA 140 mmol/L 12/31/2021 144 136 K 4.4 mmol/L 12/31/2021 5.1 3.7 GLUC 104 mg/dL 12/31/2021 99 74 BUN 25 mg/dL 12/31/2021 21 7 CREAT 1.55 mg/dL 12/31/2021 0.96 0.58 PTSEC No results within date range. INR No results within date range. APTT No results within date range. ALT No results within date range. AST No results within date range. TBILI No results within date range. TSH No results within date range. Lab Value Units Date High Low HCGQT No results within date range. UHCG No results within date range. HCG, BODY* No results within date range. Lab Value Units Date High Low ABORHD No results within date range. ABSCREEN No results within date range. Hemoglobin A1C (%) Date Value 07/03/2014 11.1 Most recent EKG: Procedure Date : Jan 02 2022 13:29:17 Edit Date : Jan 06 2022 14:56:19 Diagnosis: NORMAL SINUS RHYTHM INCOMPLETE RIGHT BUNDLE BRANCH BLOCK BORDERLINE ECG Confirmed by MD SHAWN, PhD, MARY ([id number]) on 01/06/2022 2:56:[address] ABD/PELVIS WO CON HISTORY: UNSPECIFIED ABDOMINAL PAIN COMPARISON: 02/24/2022 TECHNIQUE: CT scan of the abdomen and pelvis was performed without IV contrast. CT dose reduction technique was used, including Automated Exposure Control. ABDOMEN/PELVIS FINDINGS: Lower Chest: Unremarkable. Liver: Normal nonenhanced appearance and contour. Biliary/Gallbladder: Prior cholecystectomy. Pneumobilia is present. Visualization is limited, but there may be postoperative changes of a hepaticojejunostomy. Pancreas: Severe atrophy of the pancreas with surgical clips noted in the expected region of the pancreatic head Spleen: Prior splenectomy. Adrenal Glands: Unremarkable. Kidneys: Unremarkable. Gastrointestinal/Peritoneum: Thick-walled and featureless appearance of the rectosigmoid colon. There are no dilated loops of bowel. The appendix is unremarkable. No free air or free fluid. Vascular: Unremarkable. Lymph Nodes: No enlarged lymph nodes by CT size criteria. Pelvic Organs: An IUD is present. Bladder: Unremarkable. Bones: No acute osseous abnormality. Soft tissues: Unremarkable. IMPRESSION: 1. Thick walled and featureless appearance of the rectosigmoid colon, possibly due to acute or chronic infectious/inflammatory proctocolitis. 2. Postoperative changes of the upper abdomen including prior splenectomy and cholecystectomy. 3. IUD present. Electronically authenticated by: DADA WALLACE Date: 2022-04-02 14:35 Assessment/Plan History of anesthesia complications -History of postop nausea/vomiting -Reports history of anesthesia awareness. -Hard to sedate. Essential (primary) hypertension - Blood pressure today is 119/80. -Managed with losartan, hydrochlorothiazide and Norvasc. Nausea and vomiting -Longstanding history of nausea and vomiting since February 2014. -Patient has a PowerPort, right upper chest and receives Phenergan IV or Zofran IV through accessedport. -Port site appears clean dry and intact. Chronic kidney disease, unspecified -CMP ordered. Will review. Diabetes mellitus (HCC) -History of diabetes mellitus secondary to pancreatectomy in December 2013. -Patient has an insulin pump for which she gets NovoLog basal rate. -CMP and hemoglobin A1c ordered. Will review. Anemia, unspecified -History of anemia. Most recent H&H from December 31, 2021 is 9.7 and 32.4%. -Patient appears stable. -CBC with differential ordered. Will review. METS: Walk indoors, such as around the house (1.75 METs) Walk a block or two on level ground (2.75 METs) Climb a flight of stairs or walk up a hill (5.50 METs) Patient denies any chest pain or undue shortness of breath with the above physical activity. ASA Class: 3 ANESTHESIA FINDINGS: Intubation History: No history of difficult intubation Significant Anesthesia Considerations: Postop nausea/vomiting and anesthesia redness, hard to sedate Airway Exam: General: Normal appearance Mallampati Score is CLASS I ULBT: Class I - Lower incisors can bite the upper lip above the papito line Neck: Normal appearance and function, Distance from hyoid to mentum during neck extension is at least 3 finger breaths Mouth: Normal tongue size and Mouth opening greater than 2 finger breaths Dentition: Intact Airway History: No history of difficult intubation Sleep Apnea Probability Snores loudly: No Tired, fatigued or sleepy in daytime: Yes Stops breathing or choking/gasping during sleep: No High blood pressure: Yes Sleep Apnea Probability Score 05/08/2022 01/04/2022 Sleep Apnea Screen V2 7 (Sleep study not recommended) 7 (Sleep study not recommended) PLAN This patient is optimally prepared for surgery pending LABS. CONSULTS: Patient does not require consults for optimization at this time. The Following Tests/Procedures Have Been Initiated: Orders Placed This Encounter CMP Standing Status: Future Number of Occurrences: 1 Standing Expiration Date: 07/13/2022 CBC Standing Status: Future Number of Occurrences: 1 Standing Expiration Date: 07/13/2022 HGB A1C Standing Status: Future Standing Expiration Date: 07/13/2022 Confirm Blood Type Standing Status: Future Number of Occurrences: 1 Standing Expiration Date: 07/13/2022 Order Specific Question: Did Blood Bank direct you to place this order: Answer: No - Presurgical Workflow Type and Screen, 30 day Standing Status: Future Number of Occurrences: 1 Standing Expiration Date: 07/13/2022 omeprazole (PRILOSEC) 40 mg capsule Sig: Take 40 mg by mouth once daily. Planned Anesthetic: General Instructions Given to Patient: Instructions located in the after visit summary. Patient given verbal and written preop instructions and voices comprehension and compliance. This document has been created with use of voice recognition technology. It may contain inaccuracies, misspellings, inaccurate syntax or word sense that escaped review. SIGNATURE: Carlton Aburto APRN.CNP, DNP PATIENT NAME: Pritesh Raza DATE: May 13, 2022 TIME: 0840 documented in this encounterCleveland Clinic Foundation12-07-2022 Instructions* Patient Instructions* Carlton Aburto APRN.CNP, DNP - 05/13/2022 8:18 AM EST PATIENT PREOPERATIVE INSTRUCTIONS Cheryl East DO has scheduled you for your procedure at this surgery center: [facility] Scheduling Office: [phone] --[address] [place] [address]. Please read below carefully for your personalized instructions. Dietary Restrictions: - No solid food after midnight. - You may have 12 ounces of clear liquids (water, clear juices such as apple juice or gatorade, carbonated beverages, clear tea, black coffee, jello) until 2 hours before scheduled arrival at facility. Medications: Unless instructed differently below, stay on all of your medications until your surgery. Approved medications to take the morning of surgery with a sip of water: Zanaflex, Omeprazole, Amlodipine, Amitiza, colace, Miralax Do not take Losartan for 24 hours before day of surgery. Do not take Hydrochlorothiazide on the morning of surgery. - No diabetic medication the morning of surgery. - Accucheck day of surgery. - Insulin pump: continue the same basal rate. If you start any new medications after today's visit, please contact the surgeon's office. Blood Thinning Medications: - Stop NSAIDS (Ibuprofen, Advil, Aleve, Motrin, Celebrex, Mobic, etc.) 7 days before surgery, as directed by your surgeon. - Stop Aspirin 7 days before surgery, as directed by your surgeon. - Stop Vitamin E, ALL multi-vitamins, herbals and dietary supplements 7 days before surgery. - You may take Tylenol (Acetaminophen) or any of your pain medications that do not contain aspirin or NSAIDS as needed. Important Reminders: - Candy, mints, and tobacco products are NOT permitted the morning of surgery. - Hearing aids, dentures and glasses may be worn the morning of surgery. - NO jewelry, body piercings, makeup, hairpins or contacts are to be worn the day of surgery. If you develop symptoms such as a fever, cold, or flu, or have other changes to your health within TWO DAYS of scheduled surgery or the morning of surgery, please contact the surgery center above. Personal Belongings: -Please have photo ID and insurance cards. -If you do not have a copy of advance directives on file with us, please bring a copy with you on the day of surgery. - Leave ALL valuables and money at home or with family members. For Outpatient Procedures: - YOU MUST HAVE A RESPONSIBLE UPHOLSTERY CLEANER TAKE YOU HOME. A SYSTEMS ANALYST DEVELOPER OR FACILITIES MANAGEMENT EXECUTIVE CANNOT BE MADE A RESPONSIBLE UPHOLSTERY CLEANER. - We recommend that a responsible person stays with you overnight to take care of you. - You cannot stay in a hotel alone after outpatient surgery. You will not be permitted to have yoursurgery, if you do not have someone to take care of you. Arrival Time for Surgery: - To obtain your arrival time for surgery, call your physician's office the day before your surgery. - If your surgery is scheduled for Wednesday, call the Wednesday before. Your surgeon s cook chili will tell you what time to call the office. - If you have not reached the departmental cook chili by 5 P.M., call [phone] after 5 P.M. the day before your surgery. Please be aware that emergency situations arise, which may delay or change your surgical time. If this happens, we will notify you as soon as possible and regret any inconvenience. If you already have an Advance Directive, please fax a copy to [phone] or email to for it to be added to your chart. If you do not have an Advance Directive, you can find the appropriate form and more information at [email or web address]. We recommend that youcomplete the Advance Directive form found on the website and bring it with you the day of your surgery. It can be witnessed and scanned into your chart that day. Carlton Aburto APRN.JOSE MANUEL ERAZO documented in this [facility]12-05-2022 Miscellaneous Notes* Telephone Encounter - [facility] - 05/11/2022 8:10 AM EST Pritesh Raza [phone], ask what diet should she follow after surgery. documented in this [facility]11-30-2022 Miscellaneous Notes* Telephone Encounter - [facility] - 05/06/2022 8:22 AM EST Pritesh Raza [phone], ask if there's a bowel prep before surgery. documented in this [facility]11-11-2022 Miscellaneous Notes* Telephone Encounter - Constance Almonte RN - 04/17/2022 3:03 PM EST SPECIALTY CARE COORDINATION FOLLOW-UP NOTE Unable to reach Pritesh. Left a voice message that I was calling to follow up from her phone message and to call back [phone]. Signature Constance Almonte RN April 17, 2022 documented in this [facility]11-11-2022 Miscellaneous Notes* Telephone Encounter - [facility] - 04/17/2022 11:30 AM EST Pritesh Raza [phone], have questions concerning preop tests. documented in this encounterCleveland Clinic Foundation11-08-2022 Evaluation note* Encounter Date Diagnosis Assessment Notes Treatment Notes Treatment Clinical Notes Apr, Insulin long-term use (ICD-10 - Z79.4) Apr, Type 1 diabetes mellitus with diabetic chronic kidney disease (ICD-10 - E10.22) 1. Uncontrolled, a Type 1 diabetes with A1c of 7.4% 2. Blood glucose improved. According to cgm download 04/01/22-04/14/22: Avg glucose 165. >250-6%, >180-24%, 70-180-70%, <70-0%, <54-0%. Reviewed download with pt TBI requirements higher, will modify basal settings- see below. Pt. has a very complex medical history pancreatectomy and AID system that reduces the alarm fatigue is advised. Reports medtronic warranty up 08/12/22 would like to switch to tandem control iq insulin pump with dexcom g6 cgm. 3. Patient is alert, oriented and receptive to making changes or counseling Notes: Seen for an assessment of current glucose pattern, changes in treatment plan, counseling and coordination of care related to diabetes, risks, and benefits of treatment, medications, side effects. Given handouts to reinforce concepts reviewed during counseling, see scanned notes. TOPICS REVIEWED: 1. Time was spent reviewing: a. Basic concepts of diabetes, progressive beta cell , concepts of basal/bolus/correct page insulin requirements. Basal: The goal is fasting blood glucose of 90-130mg. If fasting blood glucose starts to run under 100mg 3x's/ week, decrease dose by 10%. Bolus: The goal is to hold the blood glucose level steady meal to meal. If pt. is going to have increased physical activity after a meal, decrease the schedule meal dose prior to the activity by 30-50%. If pt. skips a meal do not take this dose. Correction: The goal is to correct an elevated glucose back into the 100-150mg range b. Nutrition: Concepts of healthy diet reviewed, encouraged to decrease saturated fat in diet and increase non-starchy vegetables and fruits in diet. BMI: Pt. needs to select one small change to decrease caloric intake or increase physical activity to help decrease weight. c. Correct treatment of hypoglycemia, carry a glucose source at all times on your person, in vehicles, and at bedside. Can use glucose tablets/4, four ounces of pop or juice equal to 15 G of carbohydrate. Blood glucose should be 100 mg/dl or higher when driving. d. ADA glucose goals for age and medical complexity reviewed e. Patient questions addressed 2. Activity/exercise: Encouraged to start any form of physical activity. Start low level and increase slowly to a minimal goal of 150 minutes/week. Limit activity to what is allowed by other issues such as cardiac, pulmonary or orthopedic restrictions. 3. Standards of care: Reminded to have an annual dilated eye exam, A1C every 3 months, urine testing for microalbumin once/year, check feet daily and report any cuts or sores that do not appear to be healing. 4. Meter: Plan to check blood glucose: Please check blood glucose levels 6 times/day. Back to back meals reveal effectiveness of bolus dosing. The Blood glucose data is used to determine insulin doses, and confirm symptoms for hypoglycemia and hyperglcyemia.5. [facility]. Contact office if any issues or concerns with patterns of hypoglycemia, hyperglycemia, or diabetes medication issues. 6. Prescriptions: Reports has back up insulin if pump fails. 7. Prescriptions will not be filled unless you are compliant with follow up appointments or have a follow up appointment scheduled as ordered by your provider. Refills should be requested at the time of your visit. Apr, Dietary counseling and surveillance (ICD-10 - Z71.3) Healthy eating material was published Apr, Hypertension (ICD-10 - I10) Managing high blood pressure material was published BP above target- f/u with pcp for further recommendation Apr, History of pancreatectomy (ICD-10 - Z90.410) Apr, Mixed hyperlipidemia (ICD-10 - E78.2) High cholesterol material was published 08/2021 ldl 111. f/u with pcp for further recommendation consider statin therapy Apr, BMI 24.0-24.9, adult (ICD-10 - Z68.24) see above Apr, Insulin pump titration (ICD-10 - Z46.81) Using an insulin pump material was published Medtronic 670 with guardian cgmBasal: [place] 1.05 changed to 1.25 units/hr (TBI 30 units/day) ICR Mn 1:7ISF [place] 1:30 Active insulin time 3 hours Target 100/140Bolus wizard on [facility] Other 11-07-2022 Hospital Discharge instructions* Discharge Instructions* Mynor Kirk MD - 04/13/2022 1:53 PM EST Please take your medication as previously advised and prescribed by your physician to include but not limited to your blood pressure medications, and your pain medications Please contact your subspecialist concerning follow-up Please review your laboratory studies imaging studies with your healthcare provider * Attachments The following attachments cannot be sent through Care Everywhere. * Abdominal Pain (Greenlandic) * Hypertension: General Info (Greenlandic) documented in [facility] [employer] Phone: [phone] Evaluation note* Encounter Date Diagnosis Assessment Notes Treatment Notes Treatment Clinical Notes Mar, Type 1 diabetes mellitus with hyperglycemia (ICD-10 - E10.65) continue to follow with Tondra Mar, Anemia, unspecified type (ICD-10 - D64.9) will recheck hgb today on the way out of the office. Mar, Rectal prolapse (ICD-10 - K62.3) scheudled for surgery mar, Fluid level behind tympanic membrane of right ear (ICD-10 - H65.91) Mar, Hypertension, unspecified type (ICD-10 - I10) [facility] Other 10-18-2022 Hospital Discharge instructions* Discharge Instructions* Kamryn Ruggiero DO - 03/24/2022 1:21 AM EDT Please follow-up with your doctor. Return here with any new or worsening symptoms. * Attachments The following attachments cannot be sent through Care Everywhere. * Migraine Headache (Greenlandic) * Migraine Headache: Recurring (Greenlandic) documented in this encounterBON [employer] Phone: [phone] Evaluation note* Encounter Date Diagnosis Assessment Notes Treatment Notes Treatment Clinical Notes Mar, Right otitis media, unspecified otitis media type (ICD-10 - H66.91) Middle ear infection: adult home care material was printed Drink plenty fluids, get plenty of rest. Continue home medications as prescribed. Take the doxycycline as prescribed until gone. Follow-up with your family physician as scheduled next week. Try very hard to keep your blood pressure medicine down Patient reports she cannot tolerate doxycycline as an antibiotic. She also reports she has been unable to both medicine for the last couple of days. She does have an appointment with her primary care physician next week. Mar, Elevated blood pressure reading with diagnosis of hypertension (ICD-10 - I10) [facility] Other 10-10-2022 Evaluation note* Encounter Date Diagnosis Assessment Notes Treatment Notes Treatment Clinical Notes Mar, HTN (hypertension) (ICD-10 - I10) [facility] Other 09-30-2022 Miscellaneous Notes* Telephone Encounter - Constance Almonte RN - 03/06/2022 3:19 PM EDT SPECIALTY CARE COORDINATION FOLLOW-UP NOTE Spoke to Pritesh. Offering her a sooner date for surgery 03/13 which she will check with her parents who are on vacation. Asked that she call back to accept or decline the 03/13 date. Signature Constance Almonte RN March 06, 2022 documented in this encounterCleveland Clinic Foundation09-18-2022 NoteEducation Materials Gastroenterology Rectal Prolapse, Adult Rectal prolapse happens when the inside of the last section of the large intestine (rectum) drops down into an abnormal position. There are two types of rectal prolapse: ? Partial. In partial rectal prolapse, the inner lining of the rectum falls or sinks out of place and may stick out of the anus. ? Complete. In complete rectal prolapse, all layers of the rectum fall or sink out of place and maystick out of the anus. At first, rectal prolapse may be temporary. It may happen only when you are having a bowel movement. Over time, the prolapse will likely get worse. It may start to happen more often and cause uncomfortable symptoms. Eventually, the prolapse may happen when you are walking or standing. Surgery is often needed for this condition. What are the causes? This condition may be caused by weakness in the muscles that attach the rectum to the inside of thelower abdomen. The exact cause of this muscle weakness is often not known. What increases the risk? You are more likely to develop this condition if you: ? Have a history of chronic constipation or diarrhea. ? Frequently strain to have a bowel movement. ? Are a woman who is 50 years of age or older. ? Have a neurological disorder, such as multiple sclerosis, or lower spinal cord injury. ? Are a woman who has been many times. ? Have had pelvic or rectal surgery. ? Have cystic fibrosis. What are the signs or symptoms? The main symptom of this condition is a red mass of tissue sticking out of your anus. The mass may appear inflamed, have mucus, or bleed slightly. ? At first, the mass may only appear after a bowel movement. ? The mass may then start to appear more often. Other symptoms may include: ? Discomfort in the anus and rectum. ? Constipation. ? Feeling that stool is not completely emptied from the rectum. ? Diarrhea. ? Leaking of stool, mucus, or blood from the anus (fecal incontinence). ? Feeling like you are sitting on a ball. How is this diagnosed? This condition may be diagnosed based on your symptoms and a physical exam. ? During the exam, you may be asked to squat and strain as though you are having a bowel movement. ? You may also have tests, such as: ? A rectal exam using a flexible scope (sigmoidoscopy or colonoscopy). ? A procedure that involves taking X-rays of your rectum after a dye (contrast material) is injected into the rectum (defecogram). How is this treated? This condition is usually treated with surgery to repair the weakened muscles and to reconnect the rectum to attachments inside the lower abdomen. Other treatment options may include: ? Pushing the prolapsed area back into the rectum (reduction). ? Your health care provider may do this by gently pushing it back in using a moist cloth. ? The health care provider may show you how to do this at home if the prolapse occurs again. ? Medicines to prevent constipation and straining. This may include laxatives or stool softeners. Follow these instructions at home: General instructions ? Take mpau-uzw-hgywoor and prescription medicines only as told by your health care provider. ? Do not strain to have a bowel movement. ? Do not lift anything that is heavier than 10 lb (4.5 kg), or the limit that you are told, until your health care provider says that it is safe. ? Follow instructions from your health care provider about what to do if the prolapse occurs again and does not go back in. This may involve lying on your side and using a moist cloth to gently pressthe lump into your rectum. ? Keep all follow-up visits as told by your health care provider. This is important. Preventing constipation To prevent or treat constipation, your health care provider may recommend that you: ? Drink enough fluid to keep your urine pale yellow. ? Take itkl-bca-dghzfhm or prescription medicines. ? Eat foods that are high in fiber, such as beans, whole grains, and fresh fruits and vegetables. ? Limit foods that are high in fat and processed sugars, such as fried or sweet foods. Contact a health care provider if: ? You have a fever. ? Your prolapse cannot be reduced at home. ? You have constipation or diarrhea. ? You have mild rectal bleeding. Get help right away if: ? You have very bad rectal pain. ? You bleed heavily from your rectum. Summary ? Rectal prolapse happens when the inside of the rectum drops down into an abnormal position. In some cases, the rectum may partially or completely push out through the anal opening. ? This condition is usually treated with surgery to repair the weakened muscles and to reconnect the rectum to attachments inside the lower abdomen. ? Take bdme-pzk-vzjzmzz and prescription medicines only as told by your health care provider. ? Follow instructions from your he (more content not included)...[facility] [id number] Miscellaneous Notes* Telephone Encounter - Fern Colorado APRN.ASSISTED LIVING NURSING DIRECTOR - 02/19/2022 12:19 PM EDT Called and LVM. Stated in message for patient to lay on left side and gently press to get prolapse in might have to you some effort and might take time. Additionally I told her she could use sugar aswell to help retract. If all mechanisms she has tried in the past do not help patient will need to go to ED. Fern Coloraod APRN.CASTRO * Telephone Encounter - [facility] - 02/19/2022 9:30 AM EDT Pritesh Raza [phone], unable to get prolapse back in. documented in this encounterCleveland Clinic Foundation09-14-2022 Miscellaneous Notes* Telephone Encounter - Constance Almonte RN - 02/18/2022 12:56 PM EDT SPECIALTY CARE COORDINATION FOLLOW-UP NOTE Spoke to Pritesh. She has agreed to 05/14 surgery date and 05/13 pre op appointment date. Discussed using [employer] for the appointment time and for future information. She thanked me for the phone call. Signature Constance Almonte RN February 18, 2022 documented in this encounterCleveland Clinic Foundation09-14-2022 Miscellaneous Notes* Telephone Encounter - [facility] - 02/18/2022 10:59 AM EDT Pritesh Raza [phone], called for surgery date. documented in this encounterCleveland Clinic Foundation09-09-2022 Miscellaneous Notes* Telephone Encounter - Constance Almonte RN - 02/13/2022 3:50 PM EDT SPECIALTY CARE COORDINATION FOLLOW-UP NOTE Spoke to Pritesh. Parents will be going out of town the week after next week and will not returning until 10-1 or 10-2. She requests to schedule for another time. Explained that I will look for another date and call her back. She thanked me for the phone call. Signature Constance Almonte RN February 13, 2022 documented in this encounterCleveland Clinic Foundation09-09-2022 NoteL[facility] Miscellaneous Notes* Telephone Encounter - Dorina Kevin - 02/13/2022 3:16 PM EDT Pritesh Raza [phone], called to discuss surgery. documented in this encounterCleveland Clinic Foundation09-09-2022 Miscellaneous Notes* Telephone Encounter - Constance Almonte RN - 02/13/2022 2:22 PM EDT SPECIALTY CARE COORDINATION FOLLOW-UP NOTE Spoke to Pritesh. Offered her a surgery date for 02/18 with a pre op appointment date of 02/17. She said that she wouldhave to get back to her parents in their availability to bring her up to [place] next week. Pritesh asked that she did not ask Dr. East but she was wondering about the robotic or laparoscopic approach would be better for her instead of the perineal approach which she had done last time. She also states that she had a flex sig done and the records were sent the the office in December. She thanked me for the phone call. Signature Constance Almonte RN February 13, 2022 documented in this encounterCleveland Clinic Foundation09-08-2022 Evaluation note* Encounter Date Diagnosis Assessment Notes Treatment Notes Treatment Clinical Notes Feb, HTN (hypertension) (ICD-10 - I10) [facility] Other 08-31-2022 Miscellaneous Notes* Telephone Encounter - Dorina Kevin - 02/04/2022 8:38 AM EDT Pritesh Raza [phone], have questions concerning plan of care. documented in this encounterCleveland Clinic Foundation08-15-2022 Evaluation note* Encounter Date Diagnosis Assessment Notes Treatment Notes Treatment Clinical Notes Jan, Type 1 diabetes mellitus with hyperglycemia (ICD-10 - E10.65) follows with Rudy. Jan, HTN (hypertension) (ICD-10 - I10) Controlled. Jan, Rectal prolapse (ICD-10 - K62.3) Is following with [facility] surgeon for this. Will get set up with GI. Jan, Mood disorder (ICD-1 0 - F39) follows with [facility]. [facility] Other 08-11-2022 Miscellaneous Notes* Telephone Encounter - Fern [place] APRN.CNP - 01/15/2022 3:28 PM EDT Call and spoke with provider about patient. Counseled with provider here, at this time due to no operation being done with Dr. East local ED will need to stabilze there as no need to transfer to our facility. Provider verbalized and understood. Staff message sent to Dr. East as well. Fern Colorado APRN.CASTRO documented in this encounterCleveland Clinic Foundation08-11-2022 Miscellaneous Notes* Telephone Encounter - Constance Almonte RN - 01/15/2022 8:36 AM EDT SPECIALTY CARE COORDINATION FOLLOW-UP NOTE Spoke to Pritesh. According to Pritesh, she is not actively bleeding and was able to push her prolapse in. She states that she is unable to get out of bed. When she eats she is nauseated and vomiting, denies any bloating and says stomach has sunken in . She states that her local hospital told her that there is nothing they can do for her and not to come back there and to go to [facility]. Explained to her that she needs to go to her local ER or another ER or call 911. She explained thatmartínez is home alone and lives 2 hours away from the [facility]. Suggested that once she get to her local hospital to have the ER physician and page Dr. East to consult. She states she understood. Signature Constance Almonte RN January 15, 2022 documented in this encounterCleveland Clinic Foundation08-03-2022 Miscellaneous Notes* Telephone Encounter - Cheryl East DO - 01/07/2022 11:05 PM EDT Patient's imaging was reviewed and decision was made that she needs additional testing , ie GG enema , sitz marker study . Veyr dilated colon and rectum on CT scan . I explained to the patient that she needs additional testing which would need to be completed priorto surgery. Her case was discussed at pelvic floor conference. I reassured her that surgical date will be found as soon as the testing is done. Patient is very upset and seems defeated over the phone. She tells me that she is tired of seeing doctors and can not do anymore testing. She tells me that she can not undergo anymore testing and this was her last stitch effort and she is doing only so that her mother and sister would not have to bury another family member. She told me that she will stop taking her meds and just . I asked her several times if I can call her mother to discuss her care. She specifically asked me not to call her mother. I contacted Dr. Jalyn Sanz , patient's PCP and informed her of patient's intentions. [facility] police was notified and provided patient's demographics. Local police to be contacted for a wellness visit. Cheryl East DO Pelvic Floor Department of Colorectal Surgery documented in this encounterCleveland Clinic Foundation08-03-2022 Miscellaneous Notes* Telephone Encounter - Constance Almonte RN - 01/07/2022 2:00 PM EDT SPECIALTY CARE COORDINATION FOLLOW-UP NOTE According to Dr. East, she called patient to cancel her surgery that was scheduled for 01/09. Patient unhappy of cancelling the surgery but needed to provide further testing. Dr East stated that patient stated to her the she was going to turn off her insulin and . [facility] police was notified andprovidedpatient demographics. According to Yolanda, they will send information out to that local area/ jurisdiction for a wellness check. Signature Constance Almonte RN January 07, 2022 documented in this encounterCleveland Clinic Foundation08-02-2022 Miscellaneous Notes* Telephone Encounter - Constance Almonte RN - 01/06/2022 3:00 PM EDT SPECIALTY CARE COORDINATION FOLLOW-UP NOTE Spoke to Pritesh. She is requesting to get COVID testing locally. Explained that she can have it done locally as longas she has it results within 72 hours and is either faxed or brought in with her on the day of surgery. She understood. Phone number [phone] and fax number [phone] provided if needed. Pritesh states that she cannot take Flagyl, she is allergic and is not sure about neomycin is not sureif she has taken it. Dr. East aware. She thanked me for the phone call. Signature Constance Almonte RN January 06, 2022 documented in this encounterCleveland Clinic Foundation08-01-2022 Miscellaneous Notes* Telephone Encounter - Dorina Ortega [facility] - 01/05/2022 3:22 PM EDT Pritesh Raza [phone], ask if COVID test can be done locally. Also have questions concerning anesthesia. documented in this encounterCleveland Clinic Foundation08-01-2022 Instructions* Patient Instructions* Shima Braun APRN.CASTRO - 01/05/2022 2:54 PM EDT PATIENT PREOPERATIVE INSTRUCTIONS Cheryl East, has scheduled you for your procedure at this surgery center: [facility] [place] Scheduling Office: [phone] --[address] [place] [address]. Please read below carefully for your personalized instructions. Dietary Restrictions: - Follow bowel prep instructions: clear liquids need to be stopped 2 hours prior to schedule arrival at facility Medications: Unless instructed differently below, stay on all of your medications until your surgery. Approved medications to take the morning of surgery with a sip of water: Amlodipine, Zofran ( if needed) - Insulin pump: continue the same basal rate. If you start any new medications after today's visit, please contact the surgeon's office. Blood Thinning Medications: - Stop NSAIDS (Ibuprofen, Advil, Aleve, Motrin, Celebrex, Mobic, etc.) 7 days before surgery, as directed by your surgeon. - Stop Aspirin 7 days before surgery, as directed by your surgeon. - Stop Vitamin E, ALL multi-vitamins, herbals and dietary supplements 7 days before surgery. - You may take Tylenol (Acetaminophen) or any of your pain medications that do not contain aspirin or NSAIDS as needed. Important Reminders: - If you are prescribed inhalers for breathing, continue using them - Candy, mints, and tobacco products are NOT permitted the morning of surgery. - Hearing aids, dentures and glasses may be worn the morning of surgery. - NO jewelry, body piercings, makeup, hairpins or contacts are to be worn the day of surgery. If you develop symptoms such as a fever, cold, or flu, or have other changes to your health within TWO DAYS of scheduled surgery or the morning of surgery, please contact the surgery center above. Personal Belongings: -Please have photo ID and insurance cards. -If you do not have a copy of advance directives on file with us, please bring a copy with you on the day of surgery. - Leave ALL valuables and money at home or with family members. For Outpatient Procedures: - YOU MUST HAVE A RESPONSIBLE UPHOLSTERY CLEANER TAKE YOU HOME. A SYSTEMS ANALYST DEVELOPER OR FACILITIES MANAGEMENT EXECUTIVE CANNOT BE MADE A RESPONSIBLE UPHOLSTERY CLEANER. - We recommend that a responsible person stays with you overnight to take care of you. - You cannot stay in a hotel alone after outpatient surgery. You will not be permitted to have yoursurgery, if you do not have someone to take care of you. Arrival Time for Surgery: - The Surgery Center or hospital where you are having surgery will call the afternoon before surgery (or Wednesday for Wednesday surgery) with a scheduled arrival time. - If you have not heard by 4 pm, please contact the surgery center above. Please be aware that emergency situations arise, which may delay or change your surgical time. If this happens, we will notify you as soon as possible and regret any inconvenience. If you already have an Advance Directive, please fax a copy to [phone] or email to for it to be added to your chart. If you do not have an Advance Directive, you can find the appropriate form and more information at [email or web address]. We recommend that youcomplete the Advance Directive form found on the website and bring it with you the day of your surgery. It can be witnessed and scanned into your chart that day. documented in this encounterCleveland Clinic Foundation08-01-2022 History and physical note * Shima Braun APRN.CNP - 01/05/2022 2:49 PM EDT PREANESTHESIA CONSULT CLINIC TELEHEALTH VISIT Patient has been identified by name and date of : Yes This is a virtual visit using SoundSen[employer]ation video visit. It require patient-provider interaction for the medical decision making as documented below. Reason for contact: PACC visit Accompanied by: Self Scheduled Surgery: ROBOTIC LAPAROSCOPY PROCTOPEXY Subjective CHIEF COMPLAINT: Patient presents with: Pre-Op Visit HPI: This is a 36 year old female who presents with rectal prolapse. 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 Has rectal prolapse that started 07/2021. Has surgery at OSH 10/2021 and 12/2021. Has chronic abdominal pain and N/V. Prolapse is painful and bleeds. + anemia ACTIVE PROBLEM LIST Recurrent Acute Pancreatitis Hematemesis Abdominal Pain Nausea and Vomiting Diabetes Mellitus (Hcc) Severe Protein-Calorie Malnutrition (De Souza: Less Than 60% of Standard Weight) (Hcc) Summary Anemia, Unspecified Chronic Kidney Disease, Unspecified Essential (Primary) Hypertension Chronic Pancreatitis (Hcc) History of Pancreatectomy History of Anesthesia Complications PAST MEDICAL HISTORY Diagnosis Date Hypertriglyceridemia PICC (peripherally inserted central catheter) in place 12/2013 as of 07/02/2014 Recurrent acute pancreatitis 12/02/2009 S/P insertion of intrathecal pump Type II or unspecified type diabetes mellitus without mention of complication, uncontrolled PAST SURGICAL HISTORY Procedure Laterality Date OTHER SURGICAL HISTORY (PLEASE SPECIFY) HX splenectomy PANCREAS SURGERY HX 12/05/2013 removal PAST SURGICAL HISTORY OF Whipple surgery PAST SURGICAL HISTORY OF right ankle surgery x2 PAST SURGICAL HISTORY OF right knee surgery x2 PAST SURGICAL HISTORY OF nerves removed in L foot PAST SURGICAL HISTORY OF mediport placements x3 PAST SURGICAL HISTORY OF intrathecal pump placement and removal PAST SURGICAL HISTORY OF tonsil and adenoid removed PICC LINE INSERT/CONSULT 07/03/2014 FAMILY HISTORY Problem Relation Age of Onset other (HLD [Other]) Father other (DM [Other]) Father Social History Tobacco Use Smoking status: Never Smoker Smokeless tobacco: Never Used Vaping Use Vaping Use: Some days Substance Use Topics Alcohol use: No Drug use: No ALLERGIES Allergen Reactions Demerol [Meperidine* Intolerance Dicyclomine Anaphylaxis, Rash, Other: See Comments Stomach cramps. BENTYL Duracef [Cefadroxil] Hives, Swelling, Itching, Shortness of Breath Erythromycin Hives, Swelling, Itching, Shortness of Breath Levaquin [Levofloxa* Hives, Swelling, Itching, Shortness of Breath Metronidazole Other: See Comments, Anaphylaxis, Shortness of Breath Actos [Pioglitazone* Rash Bactrim [Sulfametho* Rash Cipro [Ciprofloxaci* Rash Clindomycin [Clinda* Hives Macrobid [Nitrofura* Shortness of Breath Penicillins Vomiting Reglan [Metoclopram* Hives Reglan [Metoclopram* Rash Toradol [Ketorolac] Rash Vancomycin Hives MEDICATIONS: Current Outpatient Medications Medication Sig QUEtiapine (SEROQUEL) 100 mg tablet Take 50 mg by mouth once daily. ondansetron HCl (ZOFRAN INTRAVENOUS) Inject 8 mg intravenously as needed. lubiprostone (AMITIZA ORAL) Take 24 mcg by mouth twice daily. losartan (COZAAR) 100 mg tablet Take 100 mg by mouth once daily. hydroCHLOROthiazide (HYDRODIURIL, ESIDRIX) 25 mg tablet Take 25 mg by mouth once daily. amLODIPine (NORVASC) 10 mg tablet Take 2.5 mg by mouth once daily. sertraline (ZOLOFT) 100 mg tablet Take 100 mg by mouth once daily. docusate sodium (COLACE) 100 mg capsule Take 100 mg by mouth twice daily. polyethylene glycol 3350 (MIRALAX, GLYCOLAX) 17 gram packet Take 1 Packet by mouth as needed (Constipation). diphenhydrAMINE (BENADRYL) 25 mg capsule Take 25-50 mg by mouth every 6 hours as needed. tiZANidine HCl (ZANAFLEX) 4 mg capsule Take 8 mg by mouth twice daily. zolpidem (AMBIEN) 5 mg tablet Take 5 mg by mouth daily at bedtime. ALPRAZolam (XANAX) 1 mg tablet Take 1-2 mg by mouth three times daily as needed. kxbgvt-ngjgfvjw-uapetej (CREON) 12,000-38,000 -60,000 unit cpDR Take 3 capsules by mouth as needed.snacks insulin aspart (NOVOLOG) 100 unit/mL soln Inject 6 Units subcutaneously four times daily. insulin aspart (NOVOLOG) 100 unit/mL soln Inject subcutaneously four times daily as needed. Per Sliding scale 150-180 1 unit 181-210 2 units 211-240 3 units 241-270 4 units 271-300 5 units 301-330 6 units 331-360 7 units 361-390 8 units 391-420 9 units 421- 450 10 units promethazine (PHENERGAN) 50 mg/mL injection Inject 25 mg intravenously every 4 hours as needed. No current facility-administered medications for this visit. COVID VACCINATION STATUS: Not vaccinated REVIEW OF SYSTEMS: Pain Assessment: General: No weight loss, malaise or fevers. Neuro: No history of TIA's, stroke, HEALTH COMPANION tumor, impaired sensorium, hemiplegia, paraplegia or quadraplegia. No neurological symptoms or problems. Respiratory: No history of current cough or dyspnea, or pneumonia in the past 6 weeks. No history of respiratory/pulmonary symptoms or problems. Cardiovascular: Positive for: Hypertension, Negative for CAD, Chest Pain, CHF, DVT/PE GI: See HPI : CKD HOME APPLIANCES MECHANIC: Negative for abnormal vaginal bleeding, abnormal vaginal discharge. : Denies, Patient's last menstrual period was 12/10/2018. Endocrine: Diabetes Mellitus on insulin Hematology: Anemia of chronic disease Hx of blood transfusions in the past Oncology: No history of CA metastasis, chemo within 30 days, or radiotherapy within 90 days. Has not lost 10% of body wt in 6 months. No history of oncological symptoms or problems. Psych: Anxiety, Depression Musculoskeletal: Negative for joint pain or swelling, back pain or muscle pain. Skin: Negative for lesions, rash and itching. Objective PHYSICAL EXAM: Resp 18 Ht 5' 8 (1.73m) Wt 144 lb (65.3kg) LMP 12/10/2018 BMI 21.90 kg/(m^2). VIDEO EXAM: (if completed, performed via video enabled technology) GENERAL: alert and appropriate, in no distress and well-hydrated, well nourished SKIN: no rash noted EYES: no injection and visual acuity is grossly normal OROPHARYNX: moist mucus membranes NECK: full ROM, no cervical LNs noted RESPIRATORY: breathing non-labored CHEST: equal chest rise with normal respiratory effort HEART: 70 bpm palapated by patient, no JVD or edema ABDOMEN: mild TTP noted in the LUQ NEUROLOGIC: no obvious deficit Diagnostic tests reviewed for today's visit: Lab Value Units Date High Low HB 9.7 g/dL 12/31/2021 15.5 11.5 HCT 32.4 % 12/31/2021 46.0 36.0 WBC 14.97 k/uL 12/31/2021 11.00 3.70 PLT 417 k/uL 12/31/2021 400 150 NA 140 mmol/L 12/31/2021 144 136 K 4.4 mmol/L 12/31/2021 5.1 3.7 K 4.2 mmol/L 09/18/2021 5.0 3.5 GLUC 104 mg/dL 12/31/2021 99 74 BUN 25 mg/dL 12/31/2021 21 7 CREAT 1.55 mg/dL 12/31/2021 0.96 0.58 Recent Results (from the past 8760 hour(s)) ECG COMPLETE Collection Time: 01/02/22 1:29 PM Result Value Ventricular Rate 63 Atrial Rate 63 P-R Interval 190 QRS Duration 110 QT Interval 444 QTC Calculation (Bazett) 454 Calculated P [place] 16 Calculated R [place] 6 Calculated T [place] 47 Impression NORMAL SINUS RHYTHM INCOMPLETE RIGHT BUNDLE BRANCH BLOCK BORDERLINE ECG Impression/Recommendations ASSESSMENT: History of pancreatectomy Assessment: 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 Essential (primary) hypertension Assessment: On Amlodipine, Losartan and HCTZ Chronic kidney disease, unspecified Assessment: stable Creatinine Date Value Ref Range Status 12/31/2021 1.55 (H) 0.58 - 0.96 mg/dL Final 07/19/2014 0.75 0.70 - 1.40 mg/dL Final 07/18/2014 0.54 (L) 0.70 - 1.40 mg/dL Final 07/16/2014 0.54 (L) 0.70 - 1.40 mg/dL Final Anemia, unspecified Assessment: Hx of blood transfusions at OSH. States needs to receive Benadryl prior to transfusion or has reaction Hemoglobin (g/dL) Date Value 12/31/2021 9.7 07/19/2014 9.5 Hematocrit (%) Date Value 12/31/2021 32.4 07/19/2014 29.9 WBC (k/uL) Date Value 12/31/2021 14.97 07/19/2014 9.34 Diabetes mellitus (HCC) Assessment: Has insulin pump States BG <200 ay home Nausea and vomiting Assessment: Longstanding history of nausea and vomiting- has right side chest wall port- gets IV medication as needed History of anesthesia complications Assessment: States as severe N/V postop ( scopolamine does not work) Also states woke up during surgery Also hard to sedate METS: Climb a flight of stairs or walk up a hill (5.50 METs) Patient denies any chest pain or undue shortness of breath with the above physical activity. ASA Class: 3 ANESTHESIA FINDINGS: Intubation History: From care everywhere 12/18/2021 Final Airway Details Final airway type: ETT Endotracheal airway: Cuffed, ETT - Single Lumen and Inflated Techniques used for successful ETT Placement: Direct Laryngoscopy and With Stylet Cormack-Lehane Classification: Grade II Endotracheal tube insertion site: Oral Dentition Check Pre: See Pre-Evaluaton documentation Post Intubation Trauma? No Visibility: Cords Clear Blade: Diana Blade size: #3 Placement verified by: chest auscultation, capnography and symmetrical chest wall movement ETT size: 7.0 mm Measured from: Lips Secured at (cm): 21 Number of other approaches attempted: 0 Ventilation between attempts: BVM Number of attempts at approach: 2 Additional Comments ETT placed on 2nd look by HOSTEL PARENT - 1st attempt by SRNA Significant Anesthesia Considerations: Postop nausea/vomiting and Intraop awareness Airway Exam: General: Normal appearance Mallampati Score is CLASS I ULBT: Class I - Lower incisors can bite the upper lip above the papito line Neck: Normal appearance and function, Distance from hyoid to mentum during neck extension is at least 3 finger breaths Mouth: Normal tongue size. States jaw has locked up in past Dentition: Intact Airway History: No abnormal airway history STOP BANG Score: Criteria: Hypertension Score = 1 PLAN: This patient is optimally prepared for surgery. CONSULTS: Patient does not require consults for optimization at this time. The Following Tests/Procedures Have Been Initiated: Orders Placed This Encounter QUEtiapine (SEROQUEL) 100 mg tablet Sig: Take 50 mg by mouth once daily. ondansetron HCl (ZOFRAN INTRAVENOUS) Sig: Inject 8 mg intravenously as needed. Planned Anesthetic: General Instructions Given to Patient: Patient given verbal instructions and voices comprehension and compliance. Copy sent electronically via My Chart, email, or mobile device. I spent more than 21-40 minutes [id number] with the patient and over half the time was devoted tocounseling and/or coordination of care. This is a virtual visit. It required patient-provider interaction for the medical decision making as documented above. SIGNATURE: Shima Braun APRN.CNP PATIENT NAME: Pritesh Raza DATE: 01/05/2022 TIME: 3:21 PM PAGER/CONTACT #: documented in this encounterCleveland Clinic Foundation07-29-2022 [facility] History of Present illness Narrative* Magdalena Garcia, RT(R) - 01/02/2022 12:40 PM EDT Radiology Service Progress Note PATIENT NAME: Pritesh Raza DATE OF SERVICE: January 02, 2022 TIME: 1:10 PM PATIENT IDENTITY VERIFICATION COMPLETED USING TWO (2) IDENTIFIERS: Name and Date of confirmedby patient verbally. FALL SCREENING: Has the patient had 2 falls in the last year or 1 fall with injury or currently using an Ambulatory Assistive Device (Walker, Cane, Wheelchair, Crutches, etc.)? No PATIENT GENDER DATA: Female. status: : No status: NO. PATIENT RELEVANT IMPLANT DATA REVIEWED: Not Applicable RADIOLOGY DEPARTMENT: General X-ray: Exam(s) Completed: GI/ Procedure(s): Defecating Proctogram PERIPHERAL IV DATA: Not applicable SIGNED BY: RT Irma(R) January 02, 2022 1:10 PM documented in this encounterCleveland Clinic Foundation07-29-2022 Miscellaneous Notes* Telephone Encounter - Constance Almonte RN - 01/02/2022 8:39 AM EDT SPECIALTY CARE COORDINATION FOLLOW-UP NOTE Spoke to Pritesh. She is unable to to take the bowel prep having nausea and vomiting for the defecography for today. Spoke to Dr. East and radiology, she has been advised to stay NPO prior to Xray this afternoon. Pritesh stated that she understood. She thanked me for the phone call. Signature Constance Almonte RN January 02, 2022 documented in this encounterCleveland Clinic Foundation07-28-2022 Evaluation note* Encounter Date Diagnosis Assessment Notes Treatment Notes Treatment Clinical Notes Dec, Insulin long-term use (ICD-10 - Z79.4) Dec, Type 1 diabetes mellitus with diabetic chronic kidney disease (ICD-10 - E10.22) 1. Uncontrolled, a Type 1 diabetes with A1c of 8.6% 2. Blood glucose above target. According to cgm download 12/19/21-01/01/22: Avg glucose 186. >250-15%, >180-35%, 70-180-50%, <70-0%, <54-0%. Reviewed download with pt infrequent incidence of hypoglycemia. Encouraged prebolus 15 minutes ac for improved postprandial glycemia. She reports has been in and out of hospital and not having ability to use control iq- use of pump is dependent on hospital policy. Also reports when getting IV's sometimes they will use dextrose and that will raise her blood sugar. Pt. has a very complex medical history pancreatectomy and AID system that reduces the alarm fatigue is advised. 3. Patient is alert, oriented and receptive to making changes or counseling Notes: Seen for an assessment of current glucose pattern, changes in treatment plan, counseling and coordination of care related to diabetes, risks, and benefits of treatment, medications, side effects. Given handouts to reinforce concepts reviewed during counseling, see scanned notes. TOPICS REVIEWED: 1. Time was spent reviewing: a. Basic concepts of diabetes, progressive beta cell , concepts of basal/bolus/correct page insulin requirements. Basal: The goal is fasting blood glucose of 90-130mg. If fasting blood glucose starts to run under 100mg 3x's/ week, decrease dose by 10%. Bolus: The goal is to hold the blood glucose level steady meal to meal. If pt. is going to have increased physical activity after a meal, decrease the schedule meal dose prior to the activity by 30-50%. If pt. skips a meal do not take this dose. Correction: The goal is to correct an elevated glucose back into the 100-150mg range b. Nutrition: Concepts of healthy diet reviewed, encouraged to decrease saturated fat in diet and increase non-starchy vegetables and fruits in diet. BMI: Pt. needs to select one small change to decrease caloric intake or increase physical activity to help decrease weight. c. Correct treatment of hypoglycemia, carry a glucose source at all times on your person, in vehicles, and at bedside. Can use glucose tablets/4, four ounces of pop or juice equal to 15 G of carbohydrate. Blood glucose should be 100 mg/dl or higher when driving. d. ADA glucose goals for age and medical complexity reviewed e. Patient questions addressed 2. Activity/exercise: Encouraged to start any form of physical activity. Start low level and increase slowly to a minimal goal of 150 minutes/week. Limit activity to what is allowed by other issues such as cardiac, pulmonary or orthopedic restrictions. 3. Standards of care: Reminded to have an annual dilated eye exam, A1C every 3 months, urine testing for microalbumin once/year, check feet daily and report any cuts or sores that do not appear to be healing. 4. Meter: Plan to check blood glucose: Please check blood glucose levels 6 times/day. Back to back meals reveal effectiveness of bolus dosing. The Blood glucose data is used to determine insulin doses, and confirm symptoms for hypoglycemia and hyperglcyemia.5. [facility] Contact office if any issues or concerns with patterns of hypoglycemia, hyperglycemia, or diabetes medication issues. 6. Prescriptions: Novolog sent to [facility]. Test strips sent. Dec, Dietary counseling and surveillance (ICD-10 - Z71.3) Healthy eating material was published Dec, Hypertension (ICD-10 - I10) Managing high blood pressure material was published Dec, History of pancreatectomy (ICD-10 - Z90.410) Dec, Mixed hyperlipidemia (ICD-10 - E78.2) High cholesterol material was published 08/2021 ldl 111. f/u with pcp for further recommendation consider statin therapy Dec, BMI 21.0-21.9, adult (ICD-10 - Z68.21) Dec, Insulin pump in place (ICD-10 - Z96.41) Medtronic 670 with guardian cgmBasal: 1.05 units/hr (TBI 25.2 units/day) ICR Mn 1:7ISF Mn 1:30 Active insulin time 3 hours Target 100/140Bolus wizard on [facility] Other [id number] [facility] History of Present illness Narrative* Constance Almonte RN - 01/01/2022 11:52 AM EDT COLON & RECTAL SURGERY Nursing Education Visit Pritesh Raza 1985 Surgeon: Cruzito Reason for Education: [x] Prep for Surgery [x] Wound care [x] Activity [x] Bowel habits and medications [x] Additional questions about surgery [x] Nutrition / Diet [] Stoma care / function [] Other Present for Education: Patient Surgery: Robotic Lap Rectopexy Patient's overall appearance: GENERAL APPEARANCE: healthy, alert, no distress, cooperative The following details surrounding surgery were discussed: Preoperative prep: Miralax bowel prep Length of hospital stay: Admit 2 days Anticipated diet at time of discharge from the hospital: soft Anticipated activity restrictions at time of discharge from the hospital: Lifting is restricted to 10-15 lbs for 6 weeks. No heavy lifting, pushing, bending, squatting or pulling for 6 weeks. May shower whe able to remove dressing. May walk No driving while taking narcotics. May use stairs. No sexual activity for 6 weeks. No work for 6 weeks. Specific questions and topics discussed with the patient: Clear liquids the day before, NPO after midnight, Hibiclens body wash, needing a sprinkler truck driver upon discharge, phone number provided for time arrival, and parking location Prior to surgery, the following consults have been requested: Anesthesia Prior to surgery, the following lab tests have been ordered: EKG, CBC, CMP, Type & Screen, Con ABO Additional counseling & materials provided: Patient given verbal and written preop instructions and voices comprehension and compliance. [x]Pre-op booklet [x]Bowel prep instructions [x]Diet education handout []Surgical approach information [x]Surgeon specific instructions [x]Facility directions / map Constance Almonte RN Time spent on patient education: 20 minutes [facility] Evaluation note* Encounter Date Diagnosis Assessment Notes Treatment Notes Treatment Clinical Notes Nov, Rectal prolapse (ICD-10 - K62.3) Patient is here for routine follow-up. She had a few months ago history of rectal prolapse that went to the emergency room which ended up needing emergent surgery. This was done in [place]. She reports since that surgery she still has issues with rectal prolapse. She reports daily she has some form of prolapse. She reports this is to the extent that she is not eating, has not eaten over the last week. She also reports she will not leave her bed as this can happen at any moment. Previously only would happen with stress-sneezing/coughing . Now can happen anytime. She went to the ER in [place] over the weekend for this issue, she reports did not do anything. I do not have these reports. She has been in contact with surgeon in [place] who does not seem very responsive in this matter. I did discuss with her we could see local surgery and see what they recommend. I did have a discussion with her that they may not offer any form of surgery as she had surgery in [place], she is still willing and wanting to get their recommendation. Nov, HTN (hypertension) (ICD-10 - I10) Blood pressure is very high today. She previously was on losartan, hydrochlorothiazide, clonidine patch. She reports last hospital admission she had taken off the clonidine and hydrochlorothiazide. She is continued on the losartan. She has been checking blood pressures at home which has been giving similar readings best what we got today. I will add back hydrochlorothiazide as well as a low-dose of amlodipine. She will check her blood pressures for 1 week and call us with those readings. I did discuss she has read that border of potential dangers blood pressure and if she has any symptoms headache, dizziness, decreased urination, feeling poorly, she will need to go back to the emergency room. She agrees with this recommendation and understands. Nov, Type 1 diabetes mellitus with diabetic chronic kidney disease (ICD-10 - E10.22) She follows with [facility] for this. Nov, Vomiting, intractability of vomiting not specified, presence of nausea not specified, unspecified vomiting type (ICD-10 - R11.10) Frequent nausea and vomiting. She currently seen Dr. Daley she uses Phenergan frequently. She is trying to get into [facility] but this appointment has been pushed out till January. We will continue to provide her with the Phenergan until this time. 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) October, Vitamin D deficiency (ICD-10 - E55.9) October, Anemia of renal disease (ICD-10 - D63.1) [facility] Other 05-10-2022 Evaluation note* Encounter Date Diagnosis Assessment Notes Treatment Notes Treatment Clinical Notes October, Nausea & vomiting (ICD-10 - R11.2) [facility] Other 04-22-2022 Evaluation note* Encounter Date Diagnosis Assessment Notes Treatment Notes Treatment Clinical Notes Sep, Type 1 diabetes mellitus with diabetic chronic kidney disease (ICD-10 - E10.22) [facility] Other 04-20-2022 Hospital Discharge instructions Follow Up Care 09/24/2021 15:10:17 With:KIMBERLI STYLES, Gulshan Solis, URL Address: [address] [place] [id number] When: Unknown [facility] Mamie 04-20-2022 Hospital Discharge instructions Patient Education 09/24/2021 14:31:21 Hematuria, Adult Hematuria, Adult Hematuria is blood in the urine. Blood may be visible in the urine, or it may be identified with a test. This condition can be caused by infections of the bladder, urethra, kidney, or prostate. Otherpossible causes include: Kidney stones. Cancer of the urinary tract. Too much calcium in the urine. Conditions that are passed from parent to child (inherited conditions). Exercise that requires a lot of energy. Infections can usually be treated with medicine, and a kidney stone usually will pass through your urine. If neither of these is the cause of your hematuria, more tests may be needed to identify the cause of your symptoms. It is very important to tell your health care provider about any blood in your urine, even if it ispainless or the blood stops without treatment. Blood in the urine, when it happens and then stops and then happens again, can be a symptom of a very serious condition, including cancer. There is no pain in the initial stages of many urinary cancers. Follow these instructions at home: Medicines Take ixyy-isy-pqlyxoc and prescription medicines only as told by your health care provider. If you were prescribed an antibiotic medicine, take it as told by your health care provider. Do notstop taking the antibiotic even if you start to feel better. Eating and drinking Drink enough fluid to keep your urine clear or pale yellow. It is recommended that you drink 3 4 quarts (2.8 3.8 L) a day. If you have been diagnosed with an infection, it is recommended that you drink cranberry juice in addition to large amounts of water. Avoid caffeine, tea, and carbonated beverages. These tend to irritate the bladder. Avoid alcohol because it may irritate the prostate (men). General instructions If you have been diagnosed with a kidney stone, follow your health care provider's instructions about straining your urine to catch the stone. Empty your bladder often. Avoid holding urine for long periods of time. If you are female: ?After a bowel movement, wipe from front to back and use each piece of toilet paper only once. ?Empty your bladder before and after sex. Pay attention to any changes in your symptoms. Tell your health care provider about any changes or any new symptoms. It is your responsibility to get your test results. Ask your health care provider, or the department performing the test, when your results will be ready. Keep all follow-up visits as told by your health care provider. This is important. Contact a health care provider if: You develop back pain. You have a fever. You have nausea or vomiting. Your symptoms do not improve after 3 days. Your symptoms get worse. Get help right away if: You develop severe vomiting and are unable take medicine without vomiting. You develop severe pain in your back or abdomen even though you are taking medicine. You pass a large amount of blood in your urine. You pass blood clots in your urine. You feel very weak or like you might faint. You faint. Summary Hematuria is blood in the urine. It has many possible causes. It is very important that you tell your health care provider about any blood in your urine, even ifit is painless or the blood stops without treatment. Take ehvs-mie-wnqdbzc and prescription medicines only as told by your health care provider. Drink enough fluid to keep your urine clear or pale yellow. This information is not intended to replace advice given to you by your health care provider. Make sure you discuss any questions you have with your health care provider. Document Released: 05/24/2006 Document Revised: 10/18/2019 Document Reviewed: 06/26/2017 [employer] Patient Education 2020 [employer]. Follow Up Care 09/22/2021 09:53:43 With:KIMBERLI STYLES, Gulshan Solis, URL Address: [facility] [address] , [place] [phone] When:11/24/2021 [facility] Jaimie 04-19-2022 Evaluation note* Encounter Date Diagnosis Assessment Notes Treatment Notes Treatment Clinical Notes Sep, Insulin long-term use (ICD-10 - Z79.4) Sep, Type 1 diabetes mellitus with diabetic chronic kidney disease (ICD-10 - E10.22) 1. Uncontrolled, a Type 1 diabetes with A1c of 7.2% 08/27/21 2. Blood glucose variable. She has been without guardian transmitter/cgm d/t device was on her when she was hospitalized intubated and was sent through ct scan- she did contact [facility] and should be arriving today/tomorrow. For now will modify her basal settings- see below. She is to put in auto mode as soon as she restarts cgm. F/u in two weeks will review pump settings when in auto mode and make adjustments as needed. She verbalizes understanding. Pt. has a very complex medical history pancreatectomy and AID system that reduces the alarm fatigue is advised. 3. Patient is alert, oriented and receptive to making changes or counseling Notes: Seen for an assessment of current glucose pattern, changes in treatment plan, counseling and coordination of care related to diabetes, risks, and benefits of treatment, medications, side effects. Given handouts to reinforce concepts reviewed during counseling, see scanned notes. TOPICS REVIEWED: 1. Time was spent reviewing: a. Basic concepts of diabetes, progressive beta cell , concepts of basal/bolus/correct page insulin requirements. Basal: The goal is fasting blood glucose of 90-130mg. If fasting blood glucose starts to run under 100mg 3x's/ week, decrease dose by 10%. Bolus: The goal is to hold the blood glucose level steady meal to meal. If pt. is going to have increased physical activity after a meal, decrease the schedule meal dose prior to the activity by 30-50%. If pt. skips a meal do not take this dose. Correction: The goal is to correct an elevated glucose back into the 100-150mg range b. Nutrition: Concepts of healthy diet reviewed, encouraged to decrease saturated fat in diet and increase non-starchy vegetables and fruits in diet. BMI: Pt. needs to select one small change to decrease caloric intake or increase physical activity to help decrease weight. c. Correct treatment of hypoglycemia, carry a glucose source at all times on your person, in vehicles, and at bedside. Can use glucose tablets/4, four ounces of pop or juice equal to 15 G of carbohydrate. Blood glucose should be 100 mg/dl or higher when driving. d. ADA glucose goals for age and medical complexity reviewed e. Patient questions addressed 2. Activity/exercise: Encouraged to start any form of physical activity. Start low level and increase slowly to a minimal goal of 150 minutes/week. Limit activity to what is allowed by other issues such as cardiac, pulmonary or orthopedic restrictions. 3. Standards of care: Reminded to have an annual dilated eye exam, A1C every 3 months, urine testing for microalbumin once/year, check feet daily and report any cuts or sores that do not appear to be healing. 4. Meter: Plan to check blood glucose: Please check blood glucose levels 6 times/day. Back to back meals reveal effectiveness of bolus dosing. The Blood glucose data is used to determine insulin doses, and confirm symptoms for hypoglycemia and hyperglcyemia.5. [facility]. Contact office if any issues or concerns with patterns of hypoglycemia, hyperglycemia, or diabetes medication issues. 6. Prescriptions: none needed. 7. F/u 2 weeks for pump/cgm download. Sep, Dietary counseling and surveillance (ICD-10 - Z71.3) Healthy eating material was published Sep, Hypertension (ICD-10 - I10) Managing high blood pressure material was published Sep, History of pancreatectomy (ICD-10 - Z90.410) Sep, Mixed hyperlipidemia (ICD-10 - E78.2) High cholesterol material was published 08/2021 ldl 111. f/u with pcp for further recommendation consider statin therapy Sep, Insulin pump titration (ICD-10 - Z46.81) Medtronic 670 with guardian cgmBasal: 1.4 changed to 1.05 units/hr (TBI 25.2 units/day) ICR Mn 1:7ISF Mn 1:30 Active insulin time 3 hours Target 100/140Bolus wizard on Sep, BMI 22.0-22.9, adult (ICD-10 - Z68.22) [facility] Other 03-23-2022 Evaluation note* Encounter Date Diagnosis Assessment Notes Treatment Notes Treatment Clinical Notes Aug, Insulin long-term use (ICD-10 - Z79.4) Aug, Type 1 diabetes mellitus with diabetic chronic kidney disease (ICD-10 - E10.22) 1. Uncontrolled, a Type 1 diabetes with A1c of 7.2% 2. Blood glucose levels improved from last visit. According to cgm/pump download 08/14/21-08/27/21: Avg glucose 165. >250-3%, >180-20%, 70-180-74%, <70-3%, <54-0%. Reviewed download with pt, noted TBI 33.8 units, will modify basal setting, see below. Pt. has a very complex medical history pancreatectomy and AID system that reduces the alarm fatigue is advised. 3. Patient is alert, oriented and receptive to making changes or counseling Notes: Seen for an assessment of current glucose pattern, changes in treatment plan, counseling and coordination of care related to diabetes, risks, and benefits of treatment, medications, side effects. Given handouts to reinforce concepts reviewed during counseling, see scanned notes. TOPICS REVIEWED: 1. Time was spent reviewing: a. Basic concepts of diabetes, progressive beta cell , concepts of basal/bolus/correct page insulin requirements. Basal: The goal is fasting blood glucose of 90-130mg. If fasting blood glucose starts to run under 100mg 3x's/ week, decrease dose by 10%. Bolus: The goal is to hold the blood glucose level steady meal to meal. If pt. is going to have increased physical activity after a meal, decrease the schedule meal dose prior to the activity by 30-50%. If pt. skips a meal do not take this dose. Correction: The goal is to correct an elevated glucose back into the 100-150mg range b. Nutrition: Concepts of healthy diet reviewed, encouraged to decrease saturated fat in diet and increase non-starchy vegetables and fruits in diet. BMI: Pt. needs to select one small change to decrease caloric intake or increase physical activity to help decrease weight. c. Correct treatment of hypoglycemia, carry a glucose source at all times on your person, in vehicles, and at bedside. Can use glucose tablets/4, four ounces of pop or juice equal to 15 G of carbohydrate. Blood glucose should be 100 mg/dl or higher when driving. d. ADA glucose goals for age and medical complexity reviewed e. Patient questions addressed 2. Activity/exercise: Encouraged to start any form of physical activity. Start low level and increase slowly to a minimal goal of 150 minutes/week. Limit activity to what is allowed by other issues such as cardiac, pulmonary or orthopedic restrictions. 3. Standards of care: Reminded to have an annual dilated eye exam, A1C every 3 months, urine testing for microalbumin once/year, check feet daily and report any cuts or sores that do not appear to be healing. 4. Meter: Plan to check blood glucose: Please check blood glucose levels 6 times/day. Back to back meals reveal effectiveness of bolus dosing. The Blood glucose data is used to determine insulin doses, and confirm symptoms for hypoglycemia and hyperglcyemia.5. [facility]. Contact office if any issues or concerns with patterns of hypoglycemia, hyperglycemia, or diabetes medication issues. 6. Prescriptions: test strips/glucagon sent 7. Pt instructed to report to emergency department for evaluation of hypertension/nausea 8. Referral to nephrology worsening kidney function GFR 37 cr 1.6 Aug, Dietary counseling and surveillance (ICD-10 - Z71.3) , Healthy eating material was published Aug, Hypertension (ICD-10 - I10) Managing high blood pressure material was published Uncontrolled, pt instructed to go to ED Aug, History of pancreatectomy (ICD-10 - Z90.410) Aug, Mixed hyperlipidemia (ICD-10 - E78.2) High cholesterol material was published 08/2021 ldl 111. f/u with pcp for further recommendation consider statin therapy Aug, BMI 25.0-25.9,adult (ICD-10 - Z68.25) 14 pound weight loss from last visit f/u with pcp for further evaluation Aug, Insulin pump titration (ICD-10 - Z46.81) Medtronic 670 with guardian cgmBasal: 2 changed to 1.4 units/hr (TBI 33.6 units/day) ICR Mn 1:7ISF Mn 1:25 Active insulin time 3 hours Target 100/140Bolus [employer] on [facility] Other 03-17-2022 Evaluation note* Encounter Date Diagnosis Assessment Notes Treatment Notes Treatment Clinical Notes Aug, Nausea & vomiting (ICD-10 - R11.2) [facility] Other 02-14-2022 Evaluation note* Encounter Date Diagnosis Assessment Notes Treatment Notes Treatment Clinical Notes Jul, Nausea & vomiting (ICD-10 - R11.2) uses promethazine per port for this, requesting refill. brought in script form former PCP for this. frequent nausea/vomiting since pancreas removal for chronic panceratitis related to elevated triglycerides. Jul, History of pancreatectomy (ICD-10 - Z90.410) Jul, HTN (hypertension) (ICD-10 - I10) high today, will continue to monitor. Jul, Mixed hyperlipidemia (ICD-10 - E78.2) has labs from [facility] to update. Jul, Type 1 diabetes mellitus with hyperglycemia (ICD-10 - E10.65) Jul, History of GI bleed (ICD-10 - Z87.19) was on hospice at that time, currenlty weaning off stone meds. she will get CBC done with labs. Jul, Other overall very complex individual. 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 will continue to follow with labs. does see GI and psych. hx of GI bleed she was placed on hospice for now off hopsice and weaning off opiates. [facility] Other 01-27-2022 History of Present illness Narrative* Evette Baron RN - 07/03/2021 3:41 PM EST Discharge instructions reviewed with pt. And port de-accessed, pt. Verbalizes understanding of discharge instructions at this time. * TIANA Hess - 07/03/2021 11:59 AM EST [facility] the patient do to her being in and out of 3 hospice programs. TIANA Hess * TIANA Hess - 07/03/2021 10:02 AM EST Paper work fax to [facility] for their review to see if they can accept or not. TIANA Hess * Bushra Gray RN - 07/03/2021 5:49 AM EST Patient signed the consent for blood transfusion. Adjuster And Inspector calls the laboratory to prepare one unit of blood and cross match. * Bushra Gray RN - 07/03/2021 5:[address] Tobias call back and ordered 1 unit of PRBC and H&H one hour post blood transfusion. * Bushra Gray RN - 07/03/2021 5:26 AM EST Adjuster And Inspector calls Dr. Tobias's answering service about the critical level of hemoglobin 5.8 and Hematocrit 19.2. * Bushra Gray RN - 07/02/2021 9:27 PM EST Patient refused the oral medications. Patient is complaining of nausea. Phenergan given. Dilaudid IV schedule given. * Bushra Gray RN - 07/02/2021 6:44 PM EST Patient is awake, alert and oriented. Patient I complaining abdominal pain 01/14. Vital signs taken.Assessment done. Call light within reach. Patient has IV fluid infusing well. * Em Magana RN - 07/02/2021 1:40 PM EST Friend visiting, at bedside. Pt appears more engaged and talkative at this time. Continues to c/o severe pain and nausea, see MAR for meds administered. Pt continues to refuse PO meds and food. Pt had large amount of bloody emesis prior to RN entering room, approx 150ml. Will continue to monitor. * Em Magana RN - 07/02/2021 1:24 PM EST Pt resting in bed t/o shift. Eyes closed most times when entering room, easily aroused. Pt continues to c/o sever pain and nausea t/o shift, IV Dilaudid and Phenergan/Zofran administered per MAR, with some effect. Pt continues to refuse PO meds and solid food. Will continue to monitor. * TIANA Pal - 07/02/2021 10:32 AM EST Met with Patient this a.m. to discuss discharge planning. Patient is a 36 year old white female, admitted with a diagnosis of Acute on Chronic Blood Loss Anemia. History of numerous health issues noted. Patient is alert and oriented, polite and cooperative with this assessment. States that she was recently discharged from [facility] and has utilized services of [facility] in the past as well. Patient wishes to return home with her parents when deemed medically stablefor discharge and prefers not to be referred to a different hospice upon discharge. Patient resides in [place] with her parents. She uses home oxygen and a wheelchair as needed.Patient has had care of several hospice agencies but continues to seek treatment so is discharged from their service accordingly. Patient reports that when her blood levels are good she is independent with all activities of daily living. She depends on assistance from her mother as needed for assistance with ADL's. PCP is Dr. Amador. Patient has medical insurance and voices no difficulty with affording her medication at this point. Discharge plan is home with parents when stable. Patient has a 'DNRCC' order in place and reports that she does have Advanced Directives and cannot understand why there is not a copy on file at this hospital. Encouraged Patient, as she is able, to have documents brought in from her home. Patient reports her best friend as her primary decision maker and this corresponds with Patient medical directive per her own report. No anticipated needs or concerns voiced by Patient at this point. CLERICAL OFFICE to monitor and assist with discharge planning as appropriate. Spoke with Dominga at [facility] who shares that Patient discharged from their service as of this prior 06/30/2021. TIANA Pal 07/02/2021 * Patrice Lopez RD, LD - 07/02/2021 9:51 AM EST Comprehensive Nutrition Assessment Type and Reason for Visit: Initial (missing nutrition screenings) Nutrition Recommendations/Plan: Start supplement once n/v subsides Nutrition Assessment: Mild malnutrition r/t altered GI status, AEB low PO x3-4 days and >2% weight losses from low usual weight to admission value. Had n/v mud analysis well logging captain, hypo b/s. States nausea improves with pain control. Well controlled diabetes on insulin pump and CGM. On CREON s/p whipple. May utilizenutrition supplements when nausea improves (uses at home). Malnutrition Assessment: Malnutrition Status: Mild malnutrition Context: Acute Illness Findings of the 6 clinical characteristics of malnutrition: Energy Intake: Mild decrease in energy intake (Comment) (3-4 days) Weight Loss: 7 - Greater than 2% over 1 week (to admission weight from low usual) Body Fat Loss: No significant body fat loss Muscle Mass Loss: No significant muscle mass loss Fluid Accumulation: No significant fluid accumulation Glass Embosser Strength: Not Performed Estimated Daily Nutrient Needs: Energy (kcal): 2208-9966 (20-23); Weight Used for Energy Requirements: Current Protein (g): 84-97 (1.3-1.5); Weight Used for Protein Requirements: [place] Fluid (ml/day): 1800; Method Used for Fluid Requirements: 1 ml/kcal Nutrition Related Findings: no malnutrition indices Wounds: None Current Nutrition Therapies: ADULT DIET; Regular; 4 carb choices (60 gm/meal) Anthropometric Measures: Height: 5' 8.5 (174 cm) Current Body Weight: 168 lb (76.2 kg) Admission Body Weight: 160 lb 7.9 oz (72.8 kg) Usual Body Weight: 167 lb (75.8 kg) (167-170#.) [place] Body Weight: 143 lbs; % [place] Body Weight 117.5 % BMI: 25.2 Adjusted Body Weight: ; No Adjustment BMI Categories: Overweight (BMI 25.0-29.9) Nutrition Diagnosis: Mild malnutrition related to altered GI function as evidenced by nausea,vomiting,poor intake prior to admission,weight loss greater than or equal to 2% in 1 week Lab Results Component Value Date NA 139 07/01/2021 K 4.3 07/01/2021 CL 106 07/01/2021 CO2 22 07/01/2021 BUN 24 (H) 07/01/2021 CREATININE 1.55 (H) 07/01/2021 GLUCOSE 153 (H) 07/01/2021 CALCIUM 8.5 (L) 07/01/2021 PROT 6.2 (L) 07/01/2021 LABALBU 3.6 07/01/2021 BILITOT <0.10 (L) 07/01/2021 ALKPHOS 142 (H) 07/01/2021 AST 30 07/01/2021 ALT 32 07/01/2021 LABGLOM 38 (L) 07/01/2021 GFRAA 46 (L) 07/01/2021 GLOB NOT REPORTED 02/02/2019 Lab Results Component Value Date LABA1C 6.0 10/21/2020 Lab Results Component Value Date EAG 126 10/21/2020 No results found for: VITD25 Nutrition Interventions: Food and/or Nutrient Delivery: Continue Current Diet,Start Oral Nutrition Supplement (when nausea subsides) Nutrition Education/Counseling: No recommendation at this time Coordination of Nutrition Care: Continue to monitor while inpatient Goals: PO >75% meals and supplements Nutrition Monitoring and Evaluation: Behavioral-Environmental Outcomes: None Identified Food/Nutrient Intake Outcomes: Food and Nutrient Intake,Supplement Intake Physical Signs/Symptoms Outcomes: Biochemical Data,Weight,Nausea or Vomiting Discharge Planning: No discharge needs at this time Contact: [id number] * Em Magana RN - 07/02/2021 9:00 AM EST CASTRO Small, informed of critical labs * Em Magana RN - 07/02/2021 8:32 AM EST Wendy Pinedo Tech, called with critical labs as follows: HgB 6.3 Hct 20.9 CASTRO Small, to be informed per protocol * Em Magana RN - 07/02/2021 7:[address] Galindo and CASTRO Small, informed of following: No labs ordered today. Pt states Haldol is not effective for N/V. Pt refusing all PO meds and SCDs.Change Dilaudid to IV only? N.O. CBC daily, d/c Haldol, Change Dilaudid to IV every 4 hours Pt aware. Will continue to monitor. * Bushra Gray RN - 07/01/2021 10:01 PM EST Patient calls the chief writer asking for pain pills and something for nausea. Adjuster And Inspector gives Dilaudid tablet and Zofran IV, see MAR. * Bushra Gray RN - 07/01/2021 9:00 PM EST Patient refused to take oral medications because patient is nauseous. * Em Magana RN - 07/01/2021 6:54 PM EST Pt crying out in pain, having dry heaves, rates pain 10/10, states there is no way she can wait for Phenergan to be effective to take oral pain medication. One time dose of Dilaudid 3mg IV ordered per Dr. Galindo instructions and given at 1840. IV Phenergan administered at 1845, as ordered. Will continue to monitor. * Bushra Gray RN - 07/01/2021 6:52 PM EST Patient is awake, alert and oriented. Patient is felling nauseated and in pain 10/10. Adjuster And Inspector check the vital signs and do an assessment. AM nurse Em gave Dilaudid IV and Phenergan prior to the assessment. * Em Magana RN - 07/01/2021 6:[address] Galindo returned call gave following orders: Dilaudid 4mg PO every 4 hours Dilaudid 2mg PO every 1 hour PRN for breakthrough pain Phenergan 25mg IV every 4 hours PRN Zofran 4mg IV every [address] Galindo: If needed for pain and pt is unable to take PO meds - may order Dilaudid 3mg IV every [address] of routine Dilaudid 4mg PO. Will continue to monitor. * Em Magana RN - 07/01/2021 5:[address] Galindo called regarding pt's current med orders; no order for Dilaudid, no Zofran or Phenergan. Message left. Await return call * Em Magana RN - 07/01/2021 4:03 PM EST Pt direct admit per Dr. Galindo. Pt is pt of Dr. Amador and MD is aware of admission. Pt is A&Ox4, calm and cooperative, flat affect. Pt moves slowly, gently lowers self into bed, c/o pain to abdomen9/10, mid abd which radiates to left flank and back. Pt states she has been vomiting and unable to keep and food or meds down for a few days. Pt is pale in color. Pt has continuous glucose monitor on RL abdomen and insulin pump on LL abdomen. Admission assmt to follow. Pt has red rash on chest, abdomen, back and BUEs and states it just started and is from something in our laundry (states she broke out the last time she was admitted.) Pt has accessed med port to right upper chest, order to useobtained. Pt resting in bed, call light within reach. Will continue to monitor. documented [facility] Center[facility]il[facility] Phone: [phone]) 181-733701-27-2022 Hospital Discharge instructions* Instructions* Staci Pedro APRN - ASSISTED LIVING NURSING DIRECTOR - 07/03/2021 Follow-up with Dr. Amador. Recommend drug rehabilitation to get weaned off of benzodiazepines as wellas narcotics if not doing hospice. * Attachments The following attachments cannot be sent through Care Everywhere. * Anemia (Greenlandic) [facility] Phone: 1(426) 340-200707-03-2021 Hospital Discharge instructions* Instructions* Samir Vila MD - 12/07/2020 Please take all medications as prescribed. You are choosing to leave and continue treatment with hospice, you were offered admission but you would prefer outpatient treatment with hospice given your CODE STATUS of DNR CC. Please follow up with your primary care physician by calling today, or as soon as possible, for thefirst available appointment. If you do not have a primary care physician, please contact a physician or clinic listed below today to establish care. Please return to the emergency department IMMEDIATELY if you develop uncontrolled fevers, uncontrolled vomiting, change in symptoms, worsening of symptoms, or ANY other concerns. * Attachments The following attachments cannot be sent through Care Everywhere. * Anemia: Heavy Bleeding (Greenlandic) * GI Bleed (Greenlandic) documented in this encounter[facility]ader Work Phone: [phone]) 327-578905-17-2021 History of Present illness Narrative* Adilene Richards RN - 10/21/2020 2:46 PM EDT Patient called nurse and stated her appointment with GI was scheduled for this afternoon and her ride would be here in 20 minutes to pick her up. Patient informed this would be AMA, patient agreeable. Form given to patient, patient signed. Dr. Kendall notified and heparin order received for chest port. Patient escorted to vehicle via wheelchair. * Britni Kendall DO - 10/21/2020 12:46 PM EDT Physician Progress Note PATIENT: PRITESH RAZA CSN #: [id number] : 1985 ADMIT DATE: 10/20/2020 11:42 PM DISCH DATE: RESPONDING PROVIDER #: BRITNI KENDALL DO QUERY TEXT: Pt admitted with hematemesis and has anemia documented. If possible, please document in progress notes and discharge summary further specificity regarding the acuity and type of anemia: The medical record reflects the following: Risk Factors: age 35 yo with Anemia documented Clinical Indicators: Please specify type of anemia if able; HGB: 10.4, 7, 8.3, 7.6 Reported episode of witnessed hematemesis; no etiology found , no hypotension or tachycardia. Stool negative for OB Treatment: Keep her n.p.o., IV hydration, antiemetics as needed. IV PPI twice daily. H/H every 6 hours , iron studies in the a.m. Thank you, Fanny Mcgrath RN, MSN, CDS Options provided: -- Anemia due to acute blood loss -- Anemia due to acute on chronic blood loss -- Anemia due to iron deficiency -- Other - I will add my own diagnosis -- Disagree - Not applicable / Not valid -- Disagree - Clinically unable to determine / Unknown -- Refer to Clinical Documentation Reviewer PROVIDER RESPONSE TEXT: This patient has acute on chronic blood loss anemia. Query created by: Fanny Batista on 10/21/2020 11:49 AM Electronically signed by: BRITNI KENDALL DO 10/21/2020 12:45 PM documented in this encounterFoodtoeat Phone: [phone] Hospital Discharge instructions* Instructions* Jocelyne Cedillo PA-C - 10/20/2020 We highly recommend he stay for further work-up evaluation and transfer. You are refusing this. By doing this you are leaving AGAINST MEDICAL ADVICE. You are are at the risk of going home and dying. Please keep follow-up as scheduled tomorrow with your doctor. Do not hesitate to return to the ER. * Attachments The following attachments cannot be sent through Care Everywhere. * Anemia ([place]ic) documented in this encounterFoodtoeat Phone: chief complaint+Reason for visit Narrative* Chief Complaint pump 3 month follow up Reason for Visit BMI 23.0-23.9, adult Dietary counseling and surveillance History of pancreatectomy Hypertension Hypoglycemia Insulin long-term use Insulin pump titration Mixed hyperlipidemia Type [address] diabetes [address] [facility] Work Phone: Evaluation + Plan note Future Appointments Appointment Date:12/01/2021 01:15:00 PM Scheduled Provider:Gulshan AG MD Location:[facility] Appointment Type:URO Office Visit [facility] Evaluation note* Diagnosis Dysuria- Primary Urgency of micturition Hematemesis, presence of nausea not specified documented in this encounter [employer] Phone: evaluation note* Diagnosis Hematemesis, presence of nausea not specified- Primary Anemia, unspecified type documented in this encounter [employer] Phone: evaluation note* Diagnosis Acute on chronic blood loss anemia- Primary Type 1 diabetes mellitus (HCC) Type I (juvenile type) diabetes mellitus without mention of complication, not stated as uncontrolled Hypertriglyceridemia Pure hyperglyceridemia Hematemesis with nausea Chronic prescription benzodiazepine use Essential hypertension Unspecified essential hypertension Stage 3a chronic kidney disease History of kidney stones Personal history of urinary calculi History of pancreatectomy documented in this encounter [employer] Phone: [email or web address] note* Diagnosis Upper GI bleeding- Primary Hemorrhage of gastrointestinal tract, unspecified Blood loss anemia Iron deficiency anemia secondary to blood loss (chronic) JUAN (acute kidney injury) (HCC) Acute kidney failure, unspecified Hyperkalemia Hyperpotassemia Hyperglycemia Other abnormal glucose documented in this encounter [employer] Phone: [email or web address] note* Diagnosis Pain of upper abdomen- Primary Abdominal pain, other specified site Hyperkalemia Hyperpotassemia documented in this encounter [employer] Phone: [email or web address] note* Diagnosis Anemia, unspecified type- Primary Hematemesis with nausea documented in this encounter [employer] Phone: evaluation note* Diagnosis Hematemesis with nausea- Primary Abdominal pain, epigastric Other chronic pain Palliative care patient Encounter for palliative care Palliative care status documented in this encounter [employer] Phone: [email or web address] note* Diagnosis Acute on chronic blood loss anemia- Primary Essential hypertension Unspecified essential hypertension Type 1 diabetes mellitus with diabetic chronic kidney disease Type I (juvenile type) diabetes mellitus with renal manifestations, not stated as uncontrolled History of pancreatectomy Stage 3a chronic kidney disease (HCC) Severe anemia Mild malnutrition (HCC) Malnutrition of mild degree documented in this encounter [employer] Phone: [email or web address] noteNo [place] [employer] Other Evaluation note* Diagnosis Rectal prolapse- Primary [facility] encounter [facility]* Diagnosis Rectal prolapse- Primary Rectal prolapse documented [facility] this encounter [facility]* Diagnosis Rectal prolapse Rectal prolapse documented [facility]* Diagnosis Preop examination- Primary Preoperative examination, unspecified Rectal prolapse History of pancreatectomy Essential (primary) hypertension Unspecified essential hypertension Chronic kidney disease, unspecified CKD stage Nausea and vomiting, unspecified vomiting type History of anesthesia complications Unspecified adverse effect of anesthesia Rectal prolapse documented in this encounter [facility] note* Diagnosis Constipation, unspecified constipation type- Primary documented in this encounter [facility] note* Diagnosis Constipation, unspecified constipation type- Primary documented in this encounter [facility] note* Diagnosis Constipation, unspecified constipation type- Primary Constipation, unspecified constipation type documented in this encounter [facility] noteNo assessment information availableWooster Community [facility] Work Phone: Evaluation note* Diagnosis Migraine with aura and with status migrainosus, not intractable- Primary Migraine with aura, with intractable migraine, so stated, with status migrainosus documented in this encounter [employer] Phone: [email or web address] note* Diagnosis Left lower quadrant abdominal pain- Primary Essential hypertension Unspecified essential hypertension Renal dysfunction Unspecified disorder of kidney and ureter documented in this encounter [employer] Phone: evaluation note* Diagnosis Pre-op evaluation- Primary Preoperative examination, unspecified History of anesthesia complications Unspecified adverse effect of anesthesia Essential (primary) hypertension Unspecified essential hypertension Nausea and vomiting, unspecified vomiting type Chronic kidney disease, unspecified CKD stage Type 2 diabetes mellitus with other specified complication, with long-term current use of insulin ([facility]) Anemia, unspecified type Constipation, unspecified constipation type documented in this encounter [facility] note* Diagnosis Preoperative examination- Primary Preoperative examination, unspecified Constipation, unspecified constipation type documented in this encounter [facility] note* Diagnosis Right upper quadrant abdominal pain- Primary Abdominal pain, right upper quadrant Nausea and vomiting, unspecified vomiting type documented in this encounter [employer] Phone: [email or web address] note* Diagnosis Constipation, unspecified constipation type- Primary Abdominal pain, unspecified abdominal location Nausea Nausea alone documented in this encounter [employer] Phone: [email or web address] note* Diagnosis Postoperative examination- Primary Follow-up examination, following unspecified surgery Rectal prolapse documented in this encounter [facility] note* Diagnosis Rectal prolapse- Primary documented in this encounter [facility] note* Diagnosis Onset Date Resolution Status JUAN (acute kidney injury) [place] Left against medical advice acute Left-sided weakness acute Rhabdomyolysis acute [facility] Work Phone: Evaluation note* Diagnosis Drug-induced constipation- Primary Other constipation documented in this encounter [facility] Work Phone: evaluation note* Diagnosis Migraine without aura and without status migrainosus, not intractable- Primary Migraine without aura, without mention of intractable migraine without mention of status migrainosus documented in this encounter [facility] note* Diagnosis Chronic intractable headache, unspecified headache type- Primary documented in this encounter [facility] Ge[facility] note* Diagnosis Upper GI bleed- Primary Hemorrhage of gastrointestinal tract, unspecified Hematemesis with nausea documented in this encounter [facility]waybee[facility] healthcare note* Diagnosis Onset Date Resolution Status Bronchitis noneactive Dietary counseling and surveillance acute History of pancreatectomy [place] Hypertension acute Insulin long-term use acute Insulin pump titration acute Mixed hyperlipidemia acute Type 1 diabetes mellitus [facility] Work Phone: evaluation note* Diagnosis Onset Date Resolution Status Bronchitis noneactive BMI 23.0-23.9, adult acute Dietary counseling and surveillance acute History of pancreatectomy [place] Hypertension acute Hypoglycemia acute Insulin long-term use acute Insulin pump titration acute Mixed hyperlipidemia acute Type 1 diabetes mellitus [facility] Work Phone: Evaluation note* Diagnosis Generalized abdominal pain- Primary Abdominal pain, generalized Nausea and vomiting, unspecified vomiting type documented in this encounter [facility]ENTERGeneixalubee[facility] note* Diagnosis Upper GI bleed- Primary Hemorrhage of gastrointestinal tract, unspecified documented in this encounter [facility] note* Diagnosis Onset Date Resolution Status HTN (hypertension) acute Seasonal allergies acute Type 1 diabetes mellitus acu [place] BMI 23.0-23.9, adult acute Dietary counseling and surveillance acute History of pancreatectomy [place] Hypertension acute Hypoglycemia acute Insulin long-term use acute Insulin pump titration acute Mixed hyperlipidemia acute Type 1 diabetes mellitus [facility] Work Phone: evaluation note* Diagnosis Onset Date Resolution Status BMI 23.0-23.9, adult acute Dietary counseling and surveillance acute History of pancreatectomy [place] Hypertension acute Hypoglycemia acute Insulin long-term use acute Insulin pump titration acute Mixed hyperlipidemia acute Type 1 diabetes mellitus acu te [facility] Work Phone: Evaluation note* Diagnosis Onset Date Resolution Status BMI 23.0-23.9, adult acute Dietary counseling and surveillance acute History of pancreatectomy [place] Hypertension acute Hypoglycemia acute Insulin long-term use acute Insulin pump titration acute Mixed hyperlipidemia acute Type 1 diabetes mellitus acu te Blood in stool acute HTN (hypertension) acute Type 1 diabetes mellitus acu te Thyroid nodule acute [facility] Work Phone: Evaluation note* Diagnosis Nausea and vomiting, unspecified vomiting type- Primary Abdominal pain, unspecified abdominal location documented in this encounter [facility]ALTripteaseEvaluation note* Diagnosis Elevated liver enzymes- Primary Nonspecific elevation of levels of transaminase or lactic acid dehydrogenase (LDH) Intractable nausea and vomiting Persistent vomiting documented in this encounter [facility]ITALVChargealuation note* Diagnosis Onset Date Resolution Status BMI 23.0-23.9, adult acute Dietary counseling and surveillance acute History of pancreatectomy [place] Hypertension acute Hypoglycemia acute Insulin long-term use acute Insulin pump titration acute Mixed hyperlipidemia acute Type 1 diabetes mellitus acu te Blood in stool acute HTN (hypertension) acute Type 1 diabetes mellitus acu te Nausea and vomiting acute Thyroid nodule acute [facility] Work Phone: Evaluation note* Diagnosis Onset Date Resolution Status Nausea and vomiting acute Thyroid nodule acute BMI 23.0-23.9, adult acute Dietary counseling and surveillance acute History of pancreatectomy [place] Hypertension acute Hypoglycemia acute Insulin long-term use acute Insulin pump titration acute Mixed hyperlipidemia acute Type 1 diabetes mellitus acu te [facility] Work Phone: Evaluation note* Diagnosis Thyroid mass of unclear etiology (CMS/HCC)- Primary Preop testing Unspecified pre-operative examination documented in this encounter [facility] HealthcareEvaluation note* Diagnosis Status post partial thyroidectomy (CMS/HCC)- Primary Other postprocedural status documented in this encounter [facility] HealthcareEvaluation note* Diagnosis Difficult intravenous access- Primary documented in this encounter [facility]* Diagnosis Tremors of nervous system documented in this encounter [facility]* Diagnosis Nausea and vomiting, unspecified vomiting type- Primary documented in this encounter [facility] SystemEvaluation note* Diagnosis Nausea and vomiting, unspecified vomiting type- Primary documented in this encounter [facility] SystemEvaluation note* Diagnosis Menometrorrhagia Excessive or frequent menstruation documented in this encounter [facility] HealthcareEvaluation note* Diagnosis Surgery follow-up- Primary Menometrorrhagia Excessive or frequent menstruation Menopausal symptoms Symptomatic menopausal or female climacteric states documented in this encounter [facility] HealthcareHistory general Narrative - Reported* Type Description Date Medical History Chronic Pancreatitis Medical History Migraines Medical History IDDM Medical History Asthma Medical History Liver lesions Medical History Essential hypertension, benign Medical History Kidney Stones Medical History Bipolar Medical History HTN Medical History RHEUMATOID ARTHRITIS Medical History ANXIETY Medical History DEGENERATIVE DISC DISEASE Medical History FAMILIAL HYPERTRIGLYCERIDEMIA Medical History GERD Medical History INSOMNIA Medical History KIDNEY FAILURE Medical History GI Bleed Surgical History Gallbladder Surgical History Appendix Surgical History Tonsillectomy Surgical History Rt Knee surgery x 2 Surgical History Right ankle surgery Surgical History Right ankle Bronstrum Surgical History Ureter Stent placeme nt and removal Lt side - Dr Ag Surgical History splenectomy Surgical History pancrectomy Surgical History gastric bypass Surgical History right arm picc line -out Surgical History Chest Port placement left side - out Surgical History EGD Surgical History chest port placement right side -current 07/26 Hospitalization History see above Hospitalization History kidney stones 03/2017 Hospitalization History [place] - Dehydration, pain and HTN 12/2017 Hospitalization History [place]- abdominal pain , dehydration,nausea Hospitalization History Kidney stones 06/25 Hospitalization History Dehydration 02/2020 Hospitalization History N/V, FAMILIAL HY PERTRIGLYCERIDEMIA, CHRONIC PANCREATITIS, H/O PANCREATECTOMY, IDDM, EXOCRINE PANCREATIC INSUFFICIENCY, ANEMIA; 09/2020 Hospitalization History Blood transfusion-[place] 04/2021 [facility] Other History general Narrative - Reported* Type Description Date Medical History Chronic Pancreatitis Medical History Migraines Medical History IDDM Medical History Asthma Medical History Liver lesions Medical History Essential hypertension, benign Medical History Kidney Stones Medical History Bipolar Medical History HTN Medical History RHEUMATOID ARTHRITIS Medical History ANXIETY Medical History DEGENERATIVE DISC DISEASE Medical History FAMILIAL HYPERTRIGLYCERIDEMIA Medical History GERD Medical History INSOMNIA Medical History KIDNEY FAILURE Medical History GI Bleed Surgical History Gallbladder Surgical History Appendix Surgical History Tonsillectomy Surgical History Rt Knee surgery x 2 Surgical History Right ankle surgery Surgical History Right ankle Bronstrum Surgical History Ureter Stent placeme nt and removal Lt side - Dr Ag Surgical History splenectomy Surgical History pancrectomy Surgical History gastric bypass Surgical History right arm picc line -out Surgical History Chest Port placement left side - out Surgical History EGD Surgical History chest port placement right side -current 07/26 Surgical History Interthecal pump removed 2020 Hospitalization History see above Hospitalization History kidney stones 03/2017 Hospitalization History [place] - Dehydration, pain and HTN 12/2017 Hospitalization History [place]- abdominal pain , dehydration,nausea Hospitalization History Kidney stones 06/25 Hospitalization History Dehydration 02/2020 Hospitalization History N/V, FAMILIAL HY PERTRIGLYCERIDEMIA, CHRONIC PANCREATITIS, H/O PANCREATECTOMY, IDDM, EXOCRINE PANCREATIC INSUFFICIENCY, ANEMIA; 09/2020 Hospitalization History Blood transfusion-[employer] 04/2021 [facility] Other [facility] general Narrative - Reported* Type Description Date Medical History Chronic Pancreatitis Medical History Migraines Medical History IDDM Medical History Asthma Medical History Liver lesions Medical History Essential hypertension, benign Medical History Kidney Stones Medical History Bipolar Medical History HTN Medical History RHEUMATOID ARTHRITIS Medical History ANXIETY Medical History DEGENERATIVE DISC DISEASE Medical History FAMILIAL HYPERTRIGLYCERIDEMIA Medical History GERD Medical History INSOMNIA Medical History KIDNEY FAILURE Medical History GI Bleed Surgical History Gallbladder Surgical History Appendix Surgical History Tonsillectomy Surgical History Rt Knee surgery x 2 Surgical History Right ankle surgery Surgical History Right ankle Bronstrum Surgical History Ureter Stent placeme nt and removal Lt side - Dr Ag Surgical History splenectomy Surgical History pancreatectomy Surgical History gastric bypass Surgical History right arm picc line -out Surgical History Chest Port placement left side - out Surgical History EGD Surgical History chest port placement right side -current 07/26 Surgical History Interthecal pump removed 2020 Surgical History colorectal prolapse 08/2021 Hospitalization History see above Hospitalization History kidney stones 03/2017 Hospitalization History [place] - Dehydration, pain and HTN 12/2017 Hospitalization History [place]- abdominal pain , dehydration,nausea Hospitalization History Kidney stones 06/25 Hospitalization History Dehydration 02/2020 Hospitalization History N/V, FAMILIAL HY PERTRIGLYCERIDEMIA, CHRONIC PANCREATITIS, H/O PANCREATECTOMY, IDDM, EXOCRINE PANCREATIC INSUFFICIENCY, ANEMIA; 09/2020 Hospitalization History Blood transfusion-[facility] 04/2021 Hospitalization History Colorectal prolapse-[facility] Other [facility] general Narrative - Reported* Type Description Date Medical History Chronic Pancreatitis Medical History Migraines Medical History IDDM Medical History Asthma Medical History Liver lesions Medical History Essential hypertension, benign Medical History Kidney Stones Medical History Bipolar Medical History HTN Medical History RHEUMATOID ARTHRITIS Medical History ANXIETY Medical History DEGENERATIVE DISC DISEASE Medical History FAMILIAL HYPERTRIGLYCERIDEMIA Medical History GERD Medical History INSOMNIA Medical History KIDNEY FAILURE Medical History GI Bleed Medical History rectal prolapse Surgical History Gallbladder Surgical History Appendix Surgical History Tonsillectomy Surgical History Rt Knee surgery x 2 Surgical History Right ankle surgery Surgical History Right ankle Bronstrum Surgical History Ureter Stent placeme nt and removal Lt side - Dr Ag Surgical History splenectomy Surgical History pancreatectomy Surgical History gastric bypass Surgical History right arm picc line -out Surgical History Chest Port placement left side - out Surgical History EGD Surgical History chest port placement right side -current 07/26 Surgical History Interthecal pump removed 2020 Surgical History colorectal prolapse 08/2021 Surgical History colorectal prolapse 12/2021 Hospitalization History see above Hospitalization History kidney stones 03/2017 Hospitalization History [place] - Dehydration, pain and HTN 12/2017 Hospitalization History [place]- abdominal pain , dehydration,nausea Hospitalization History Kidney stones 06/25 Hospitalization History Dehydration 02/2020 Hospitalization History N/V, FAMILIAL HY PERTRIGLYCERIDEMIA, CHRONIC PANCREATITIS, H/O PANCREATECTOMY, IDDM, EXOCRINE PANCREATIC INSUFFICIENCY, ANEMIA; 09/2020 Hospitalization History Blood transfusion-[facility] 04/2021 Hospitalization History Colorectal prolapse-[facility] [employer] Other Hiszbar general Narrative - Reported* Type Description Date Medical History Chronic Pancreatitis Medical History Migraines Medical History IDDM Medical History Asthma Medical History Liver lesions Medical History Essential hypertension, benign Medical History Kidney Stones Medical History Bipolar Medical History HTN Medical History RHEUMATOID ARTHRITIS Medical History ANXIETY Medical History DEGENERATIVE DISC DISEASE Medical History FAMILIAL HYPERTRIGLYCERIDEMIA Medical History GERD Medical History INSOMNIA Medical History KIDNEY FAILURE Medical History GI Bleed Medical History rectal prolapse Surgical History Gallbladder Surgical History Appendix Surgical History Tonsillectomy Surgical History Rt Knee surgery x 2 Surgical History Right ankle surgery Surgical History Right ankle Bronstrum Surgical History Ureter Stent placeme nt and removal Lt side - Dr Ag Surgical History splenectomy Surgical History pancreatectomy Surgical History gastric bypass Surgical History right arm picc line -out Surgical History Chest Port placement left side - out Surgical History EGD Surgical History chest port placement right side -current 07/26 Surgical History Interthecal pump removed 2020 Surgical History colorectal prolapse 08/2021 Surgical History colorectal prolapse 12/2021 Hospitalization History see above Hospitalization History kidney stones 03/2017 Hospitalization History [place] - Dehydration, pain and HTN 12/2017 Hospitalization History [place]- abdominal pain , dehydration,nausea Hospitalization History Kidney stones 06/25 Hospitalization History Dehydration 02/2020 Hospitalization History N/V, FAMILIAL HY PERTRIGLYCERIDEMIA, CHRONIC PANCREATITIS, H/O PANCREATECTOMY, IDDM, EXOCRINE PANCREATIC INSUFFICIENCY, ANEMIA; 09/2020 Hospitalization History Blood transfusion-[facility] 04/2021 Hospitalization History Colorectal prolapse-[facility] Hospitalization History Blood transfusion-[facility] 02/2022 [facility] Other History general Narrative - Reported* Type Description Date Medical History Chronic Pancreatitis Medical History Migraines Medical History IDDM Medical History Asthma Medical History Liver lesions Medical History Essential hypertension, benign Medical History Kidney Stones Medical History Bipolar Medical History HTN Medical History RHEUMATOID ARTHRITIS Medical History ANXIETY Medical History DEGENERATIVE DISC DISEASE Medical History FAMILIAL HYPERTRIGLYCERIDEMIA Medical History GERD Medical History INSOMNIA Medical History KIDNEY FAILURE Medical History GI Bleed Medical History rectal prolapse Surgical History Gallbladder Surgical History Appendix Surgical History Tonsillectomy Surgical History Rt Knee surgery x 2 Surgical History Right ankle surgery Surgical History Right ankle Bronstrum Surgical History Ureter Stent placeme nt and removal Lt side - Dr Kimberli Surgical History splenectomy Surgical History pancreatectomy Surgical History gastric bypass Surgical History right arm picc line -out Surgical History Chest Port placement left side - out Surgical History EGD Surgical History chest port placement right side -current 07/26 Surgical History Interthecal pump removed 2020 Surgical History colorectal prolapse 08/2021 Surgical History colorectal prolapse x 2 surgerg ies 12/2021 Hospitalization History see above Hospitalization History kidney stones 03/2017 Hospitalization History [place] - Dehydration, pain and HTN 12/2017 Hospitalization History [place]- abdominal pain , dehydration,nausea Hospitalization History Kidney stones 06/25 Hospitalization History Dehydration 02/2020 Hospitalization History N/V, FAMILIAL HY PERTRIGLYCERIDEMIA, CHRONIC PANCREATITIS, H/O PANCREATECTOMY, IDDM, EXOCRINE PANCREATIC INSUFFICIENCY, ANEMIA; 09/2020 Hospitalization History Blood transfusion-[facility] 04/2021 Hospitalization History Colorectal prolapse-[facility] Hospitalization History Blood transfusion-[facility] 02/2022 Hospitalization History Blood transfusion-[facility] 04/02/2022 [facility] Other Hisho[facility] general Narrative - Reported* Type Description Date Medical History Chronic Pancreatitis Medical History Migraines Medical History IDDM Medical History Asthma Medical History Liver lesions Medical History Essential hypertension, benign Medical History Kidney Stones Medical History Bipolar Medical History HTN Medical History RHEUMATOID ARTHRITIS Medical History ANXIETY Medical History DEGENERATIVE DISC DISEASE Medical History FAMILIAL HYPERTRIGLYCERIDEMIA Medical History GERD Medical History INSOMNIA Medical History KIDNEY FAILURE Medical History GI Bleed Medical History rectal prolapse Surgical History Gallbladder Surgical History Appendix Surgical History Tonsillectomy Surgical History Rt Knee surgery x 2 Surgical History Right ankle surgery Surgical History Right ankle Bronstrum Surgical History Ureter Stent placeme nt and removal Lt side - Dr Ag Surgical History splenectomy Surgical History pancreatectomy Surgical History gastric bypass Surgical History right arm picc line -out Surgical History Chest Port placement left side - out Surgical History EGD Surgical History chest port placement right side -current 07/26 Surgical History Interthecal pump removed 2020 Surgical History colorectal prolapse 08/2021 Surgical History colorectal prolapse x 4 surgerg ies 12/2021 Hospitalization History see above Hospitalization History kidney stones 03/2017 Hospitalization History [place] - Dehydration, pain and HTN 12/2017 Hospitalization History [place]- abdominal pain , dehydration,nausea Hospitalization History Kidney stones 06/25 Hospitalization History Dehydration 02/2020 Hospitalization History N/V, FAMILIAL HY PERTRIGLYCERIDEMIA, CHRONIC PANCREATITIS, H/O PANCREATECTOMY, IDDM, EXOCRINE PANCREATIC INSUFFICIENCY, ANEMIA; 09/2020 Hospitalization History Blood transfusion-[facility] 04/2021 Hospitalization History Colorectal prolapse-[facility] Hospitalization History Blood transfusion-[facility] 02/2022 Hospitalization History Blood transfusion-[facility] 04/02/2022 Hospitalization History anemia [place] and the transferred to [facility] 06/2022 [facility] Other Hisrrjc general Narrative - Reported* Type Description Date Medical History Chronic Pancreatitis Medical History Migraines Medical History IDDM Medical History Asthma Medical History Liver lesions Medical History Essential hypertension, benign Medical History Kidney Stones Medical History Bipolar Medical History HTN Medical History RHEUMATOID ARTHRITIS Medical History ANXIETY Medical History DEGENERATIVE DISC DISEASE Medical History FAMILIAL HYPERTRIGLYCERIDEMIA Medical History GERD Medical History INSOMNIA Medical History KIDNEY FAILURE Medical History GI Bleed Medical History rectal prolapse Surgical History Gallbladder Surgical History Appendix Surgical History Tonsillectomy Surgical History Rt Knee surgery x 2 Surgical History Right ankle surgery Surgical History Right ankle Bronstrum Surgical History Ureter Stent placeme nt and removal Lt side - Dr Ag Surgical History splenectomy Surgical History pancreatectomy Surgical History gastric bypass Surgical History right arm picc line -out Surgical History Chest Port placement left side - out Surgical History EGD Surgical History chest port placement right side -current 07/26 Surgical History Interthecal pump removed 2020 Surgical History colorectal prolapse 08/2021 Surgical History colorectal prolapse x 4 surgerg ies 12/2021 Surgical History TIA 07/2022 Surgical History Colorectal prolapse rebuild of pelvic floor at [facility] 05/14/22 Hospitalization History see above Hospitalization History kidney stones 03/2017 Hospitalization History [place] - Dehydration, pain and HTN 12/2017 Hospitalization History [place]- abdominal pain , dehydration,nausea Hospitalization History Kidney stones 06/25 Hospitalization History Dehydration 02/2020 Hospitalization History N/V, FAMILIAL HY PERTRIGLYCERIDEMIA, CHRONIC PANCREATITIS, H/O PANCREATECTOMY, IDDM, EXOCRINE PANCREATIC INSUFFICIENCY, ANEMIA; 09/2020 Hospitalization History Blood transfusion-[facility] 04/2021 Hospitalization History Colorectal prolapse-[facility] Hospitalization History Blood transfusion-[facility] 02/2022 Hospitalization History Blood transfusion-[facility] 04/02/2022 Hospitalization History anemia [place] and the transferred to [facility] 06/2022 Hospitalization History bowel obstruction 05/28 [facility] Other Hisbifb general Narrative - Reported* Type Description Date Medical History Chronic Pancreatitis Medical History Migraines Medical History IDDM Medical History Asthma Medical History Liver lesions Medical History Essential hypertension, benign Medical History Kidney Stones Medical History Bipolar Medical History HTN Medical History RHEUMATOID ARTHRITIS Medical History ANXIETY Medical History DEGENERATIVE DISC DISEASE Medical History FAMILIAL HYPERTRIGLYCERIDEMIA Medical History GERD Medical History INSOMNIA Medical History KIDNEY FAILURE Medical History GI Bleed Medical History rectal prolapse Surgical History Gallbladder Surgical History Appendix Surgical History Tonsillectomy Surgical History Rt Knee surgery x 2 Surgical History Right ankle surgery Surgical History Right ankle Bronstrum Surgical History Ureter Stent placeme nt and removal Lt side - Dr Ag Surgical History splenectomy Surgical History pancreatectomy Surgical History gastric bypass Surgical History right arm picc line -out Surgical History Chest Port placement left side - out Surgical History EGD Surgical History chest port placement right side -current 07/26 Surgical History Interthecal pump removed 2020 Surgical History colorectal prolapse 08/2021 Surgical History colorectal prolapse x 4 surgerg ies 12/2021 Surgical History TIA 07/2022 Surgical History Colorectal prolapse rebuild of pelvic floor at [facility] 05/14/22 Hospitalization History kidney stones 03/2017 Hospitalization History [place] - Dehydration, pain and HTN 12/2017 Hospitalization History see above Hospitalization History [place]- abdominal pain , dehydration,nausea Hospitalization History Kidney stones 06/25 Hospitalization History Dehydration 02/2020 Hospitalization History N/V, FAMILIAL HY PERTRIGLYCERIDEMIA, CHRONIC PANCREATITIS, H/O PANCREATECTOMY, IDDM, EXOCRINE PANCREATIC INSUFFICIENCY, ANEMIA; 09/2020 Hospitalization History Blood transfusion-[facility] 04/2021 Hospitalization History Colorectal prolapse-[facility] Hospitalization History Blood transfusion-[facility] 02/2022 Hospitalization History Blood transfusion-[facility] 04/02/2022 Hospitalization History anemia [place] and the transferred to [facility] 06/2022 Hospitalization History bowel obstruction 05/28 [facility] Other Hospital course Narrative No data available for this section [facility] Discharge instructions* Attachments The following attachments cannot be sent through Care Everywhere. * Dysuria (Green[place]ic) * Upper GI Bleed (Green[place]ic) documented in this [employer] Phone: Hospital Discharge instructions* Attachments The following attachments cannot be sent through Care Everywhere. * Hyperkalemia ([place]ic) * Abdominal Pain ([place]ic) documented in this [facility] Phone: Hospital Discharge instructions* Attachments The following attachments cannot be sent through Care Everywhere. * Anemia ([place]ic) * Blood Transfusions: General Info ([place]ic) * Chronic Pain ([place]ic) documented in this [employer] Phone: Hospital Discharge instructions* Attachments The following attachments cannot be sent through Care Everywhere. * Hospice and Palliative Care: General Info ([place]ic) * Upper GI Bleed ([place]ic) documented in this [employer] Phone: Hospital Discharge instructions* Attachments The following attachments cannot be sent through Care Everywhere. * Constipation ([place]ic) documented in this encounterBON MOLLY [facility] HOSPITALLu[facility] Work Phone: Hospital Discharge instructions Additional Instructions Follow-up with your primary care doctor Return to ED if develop worsening [facility] Work Phone: Hospital Discharge instructions Additional Instructions Continue current meds Return if symptoms are worsePark[facility] Work Phone: Hospital Discharge instructionsAmbulatory Orders* Referral to ENT Time Frame: 03/17/24, Location: None [facility] Work Phone: InstructionsNot on filedocumented in this encounter [facility]ructionsNot on filedocumented in this encounter [facility] SystemInstructionsNot on filedocumented in this encounter [facility] SystemProgress note No data available for this section [facility] reason for referral (narrative)* Outpatient Procedure (Routine) - Pending Review Specialty Diagnoses / Procedures Referred By Lauren pascual Referred To Contact [facility] Diagnoses Rectal prolapse Procedures [facility] ANORECTAL MANOMETRY ANORECTAL MANOMETRY Letty Hernandez PA-C [address] [place] [address] [facility] [place] [address] Referral ID Status Reason Start Date Expiration Date Visits Requested Visits Authorized [id number] Pending Review Auto-Generat ed Referral 12/31/2021 12/31/2022 1 1 [facility] for referral (narrative)* Diagnostic Procedure Only (Routine) - Closed Specialty Diagnoses / Procedures Referred By Lauren pascual Referred To Contact XR IMAGING Diagnoses Rectal prolapse Procedures XR DEFECOGRAPHY RADIOLOGIC EXAM COLON SINGLE CONTRAST STUDY Cheryl East DO [address] [place] [address] Xr Imaging Referral ID Status Reason Start Date Expiration Date V isits Requested Visits Authorized [id number] Closed Auto-Generate d Referral 12/31/2021 01/30/2023 1 1 [facility] for referral (narrative)* Diagnostic Procedure Only (Routine) - Pending Review Specialty Diagnoses / Procedures Referred By Contac t Referred To Contact XR IMAGING Diagnoses Constipation, unspecified constipation type Procedures XR COLONIC TRANSIT IMAGE 3 X-RAY ABD SINGLE AP VIEW Cheryl East DO [address] [id number] Xr Imaging Referral ID Status Reason Start Date Expiration Date Visits Requested Visits Authorized [id number] Pending Review Auto-Generat ed Referral 01/09/2022 02/08/2023 1 1 * Diagnostic Procedure Only (Routine) - Pending Review Specialty Diagnoses / Procedures Referred By Contac t Referred To Contact XR IMAGING Diagnoses Constipation, unspecified constipation type Procedures XR COLONIC TRANSIT IMAGE 2 X-RAY ABD SINGLE AP VIEW Cheryl East, DO [address] [place] [address] Xr Imaging Referral ID Status Reason Start Date Expiration Date Visits Requested Visits Authorized [id number] Pending Review Auto-Generat ed Referral 01/09/2022 02/08/2023 1 1 * Diagnostic Procedure Only (Routine) - Pending Review Specialty Diagnoses / Procedures Referred By Contac t Referred To Contact XR IMAGING Diagnoses Constipation, unspecified constipation type Procedures XR COLONIC TRANSIT IMAGE 1 X-RAY ABD SINGLE AP VIEW Cheryl East DO [address] [place] [address] Xr Imaging Referral ID Status Reason Start Date Expiration Date Visits Requested Visits Authorized [id number] Pending Review Auto-Generat ed Referral 01/09/2022 02/08/2023 1 1 [facility] for referral (narrative)* Diagnostic Procedure Only (Routine) - Pending Review Specialty Diagnoses / Procedures Referred By Contac t Referred To Contact XR IMAGING Diagnoses Constipation, unspecified constipation type Procedures XR COLONIC TRANSIT IMAGE 3 X-RAY ABD SINGLE AP VIEW [place] APRN.CNP [address] [place] [address] Xr Imaging Referral ID Status Reason Start Date Expiration Date Visits Requested Visits Authorized [id number] Pending Review Auto-Generat ed Referral 01/26/2022 02/25/2023 1 1 * Diagnostic Procedure Only (Routine) - Pending Review Specialty Diagnoses / Procedures Referred By Contac t Referred To Contact XR IMAGING Diagnoses Constipation, unspecified constipation type Procedures XR COLONIC TRANSIT IMAGE 2 X-RAY ABD SINGLE AP VIEW Fern [place] APRN.CNP [address] [place] [address] Xr Imaging Referral ID Status Reason Start Date Expiration Date Visits Requested Visits Authorized [id number] Pending Review Auto-Generat ed Referral 01/26/2022 02/25/2023 1 1 * Diagnostic Procedure Only (Routine) - Pending Review Specialty Diagnoses / Procedures Referred By Contac t Referred To Contact XR IMAGING Diagnoses Constipation, unspecified constipation type Procedures XR COLONIC TRANSIT IMAGE 1 X-RAY ABD SINGLE AP VIEW Fern [place] APRN.CNP [address] [place] [address] Xr Imaging Referral ID Status Reason Start Date Expiration Date Visits Requested Visits Authorized [id number] Pending Review Auto-Generat ed Referral 01/26/2022 02/25/2023 1 1 [facility] for visit Narrative* Auth/Cert Specialty Diagnoses / Procedures Referred By Controldan t Referred To Contact Diagnoses Anemia Severe anemia Larry Galindo MD [address] [place] [address], [place] [address] [employer] [address] [place] [address] Referral ID Status Reason Start Date Expiration Date Visits Re quested Visits Authorized [id number] 1 1 [employer] Phone: Discharge Instructions * Attachments The following attachments cannot be sent through Care Everywhere. * Nausea and Vomiting ([place]ic) documented in this encounter* Instructions* Tiffany Shrestha DO - 02/03/2019 Follow-up with your primary care physician for further evaluation, in the next 3 to 4 days. Follow-up with your pain management doctor as discussed. Return to ER for any worsening pain, persistent nausea or vomiting. documented in this encounter* Instructions* Jocelyne Cedillo PA-C - 08/10/2019 Call to arrange follow-up with primary care for recheck tomorrow. * Attachments The following attachments cannot be sent through Care Everywhere. * Abdominal Pain ([place]ic) documented in this encounter* Attachments The following attachments cannot be sent through Care Everywhere. * Nausea and Vomiting ([place]ic) * Constipation ([place]ic) * Abdominal Pain ([place]ic) documented in this encounter* Attachments The following attachments cannot be sent through Care Everywhere. * Candidiasis ([place]ic) documented in this encounter* Attachments The following attachments cannot be sent through Care Everywhere. * Dehydration ([place]ic) * Nausea and Vomiting ([place]ic) documented in this encounter* Instructions* Mynor Kirk MD - 09/15/2020 Please continue with medications as previously advised by your physicians Please keep follow-up appointments as previously arranged and scheduled * Attachments The following attachments cannot be sent through Care Everywhere. * Anemia ([place]ic) * Hyperglycemia: General Info ([place]ic) documented in this encounter Assessments Diagnosis Epigastric pain- Primary Abdominal pain, epigastric Non-intractable vomiting with nausea, unspecified vomiting type Hypertension due to endocrine disorder Diagnosis Abdominal pain, unspecified abdominal location- Primary Diagnosis Chronic abdominal pain- Primary Abdominal pain, unspecified site Diagnosis Hypertensive urgency- Primary Unspecified essential hypertension Non-surgical abdominal pain Abdominal pain, unspecified site Slow transit constipation Intractable vomiting with nausea, unspecified vomiting type Intractable vomiting Persistent vomiting Intractable generalized abdominal pain Type 1 diabetes mellitus (HCC) Type I (juvenile type) diabetes mellitus without mention of complication, not stated as uncontrolled Hypertriglyceridemia Pure hyperglyceridemia Diagnosis Yeast vaginitis- Primary Candidiasis of vulva and vagina Diagnosis Upper GI hemorrhage- Primary Hemorrhage of gastrointestinal tract, unspecified Leukocytosis, unspecified type Generalized abdominal pain Abdominal pain, generalized Anemia, unspecified type Diagnosis Non-intractable vomiting with nausea, unspecified vomiting type- Primary Dehydration Other specified anemias Diagnosis Hematemesis with nausea- Primary Severe anemia Right upper quadrant abdominal pain Abdominal pain, right upper quadrant Diagnosis Anemia, unspecified type- Primary Hyperglycemia Other abnormal glucose Advance Directives No Advanced Directives Records FoundDocuments on File Type Date Recorded Patient Dinner Cook Expl anation ACP-Do Not Resuscitate 12/11/2020 11:29 AM Latest Code Status on File Code Status Date Activated Date Inactivated Comments DNR-CC 07/01/2021 4:10 PM 07/03/2021 6:27 PM DNR-CC 12/07/2020 1:54 AM 12/07/2020 4:16 PM Full Code 10/21/2020 12:27 AM 10/21/2020 4:54 PM Full Code 07/20/2020 7:30 PM 07/22/2020 5:47 PM Full Code 04/01/2015 2:39 PM 04/04/2015 9:16 PM Healthcare Agents on File Name Relationship Healthcare Agent [facility] Communication Jeny Davalos Other Primary Decision Maker Documents on File Type Date Recorded Patient Dinner Cook Expl anation Advance Directive(s) 01/05/2022 2:28 PM Latest Code Status on File Code Status Date Activated Date Inactivated Comments DNR Specified 07/13/2014 8:21 AM 07/19/2014 8:43 PM DNR Specifications: 1. NO chest compressions 2. NO insertion of artificial ai rway/intubation 3. NO administration of resuscit ative drugs 4. NO defibrillation/cardioversi on DNR Order Discussed With: Patient DNR Comfort/Arrest 07/13/2014 8:10 AM 07/13/2014 8:21 AM N OTE - wishes to be full code if going for a procedure. DNR Order Discussed With: Patient DNR/Comfort Care 07/13/2014 2:15 AM 07/13/2014 8:10 AM NOT E - Patient does not wish to be DNR-CC if she is in a procedure. For procedures, she wishes to be made full code. Documents on File Type Date Recorded Patient Dinner Cook Expl anation Advance Directives and Living Will Power of Medical Technologist Blood Bank Latest Code Status on File Code Status Date Activated Date Inactivated Comments Full Code 04/01/2015 2:39 PM 04/04/2015 9:16 PM Full Code 03/27/2015 8:39 PM 04/01/2015 2:39 PM Full Code 05/15/2014 1:47 AM 05/19/2014 3:12 PM Full Code 07/04/2013 4:21 PM 07/06/2013 2:06 AM Full Code 12/11/2012 11:22 PM 12/13/2012 8:45 PM Documents on File Type Date Recorded Patient Dinner Cook Expl anation ACP-Advance Directive ACP-Power of Medical Technologist Blood Bank Latest Code Status on File Code Status Date Activated Date Inactivated Comments Full Code 07/20/2020 7:30 PM Latest Code Status on File Code Status Date Activated Date Inactivated Comments Full Code 07/20/2020 7:30 PM 07/22/2020 5:47 PM Documents on File Type Date Recorded Patient Dinner Cook Expl anation ACP-Advance Directive ACP-Power of Medical Technologist Blood Bank Latest Code Status on File Code Status Date Activated Date Inactivated Comments Full Code 10/21/2020 12:27 AM Full Code 07/20/2020 7:30 PM 07/22/2020 5:47 PM Full Code 04/01/2015 2:39 PM 04/04/2015 9:16 PM Full Code 03/27/2015 8:39 PM 04/01/2015 2:39 PM Full Code 05/15/2014 1:47 AM 05/19/2014 3:12 PM Latest Code Status on File Code Status Date Activated Date Inactivated Comments DNR-CC 12/07/2020 1:54 AM Documents on File Type Date Recorded Patient Dinner Cook Expl anation ACP-Advance Directive ACP-Power of Medical Technologist Blood Bank ACP-Do Not Resuscitate 12/11/2020 11:29 AM Latest Code Status on File Code Status Date Activated Date Inactivated Comments DNR-CC 12/07/2020 1:54 AM 12/07/2020 4:16 PM Documents on File Type Date Recorded Patient Dinner Cook Expl anation ACP-Advance Directive ACP-Power of Medical Technologist Blood Bank ACP-Do Not Resuscitate 12/11/2020 11:29 AM Latest Code Status on File Code Status Date Activated Date Inactivated Comments DNR-CC 07/01/2021 4:10 PM DNR-CC 12/07/2020 1:54 AM 12/07/2020 4:16 PM Full Code 10/21/2020 12:27 AM 10/21/2020 4:54 PM Healthcare Agents on File Name Relationship Healthcare Agent Relationshi p Communication Jeny Davalos Other Primary Decision Maker Healthcare Agents on File Name Relationship Healthcare Agent [facility] Communication Jeny Davalos Other Primary Decision Maker Latest Code Status on File Code Status Date Activated Date Inactivated Comments DNR Specified 07/13/2014 8:21 AM 07/19/2014 8:43 PM DNR Comfort/Arrest 07/13/2014 8:10 AM 07/13/2014 8:21 AM N OTE - wishes to be full code if going for a procedure. DNR/Comfort Care 07/13/2014 2:15 AM 07/13/2014 8:10 AM NOT E - Patient does not wish to be DNR-CC if she is in a procedure. For procedures, she wishes to be made full code. Documents on File Type Date Recorded Patient Dinner Cook Expl anation Advance Directive(s) 01/05/2022 2:28 PM Advance Directive Response Recorded Date/ Time Advance Directives Yes July 1:54pm Healthcare Agents on File Name Relationship Healthcare Agent Relationshi p Communication Jeny Davalos Other Primary Decision Maker Healthcare Agents on File Name Relationship Healthcare Agent Relationshi p Communication Jenyher Davalos Other Primary Decision Maker Latest Code Status on File Code Status Date Activated Date Inactivated Comments DNR-CCA 07/01/2022 1:27 PM 07/02/2022 7:17 PM FULL CODE CARLITOS 07/01/2022 10:50 AM 07/01/2022 1:27 PM Order Discussed With: Patient DNR-CCA 06/27/2022 2:09 AM 07/01/2022 10:50 AM DNR Specified 07/13/2014 8:21 AM 07/19/2014 8:43 PM Advance Directive Response Recorded Date/ Time Advance Directives Yes July 12:54pm Healthcare Agents on File Name Relationship Healthcare Agent Relationshi p Communication Jeny Davalos Other Primary Decision Maker Latest Code Status on File Code Status Date Activated Date Inactivated Comments DNR-CCA 07/01/2022 1:27 PM 07/02/2022 7:17 PM FULL CODE CARLITOS 07/01/2022 10:50 AM 07/01/2022 1:27 PM DNR-CCA 06/27/2022 2:09 AM 07/01/2022 10:50 AM DNR Specified 07/13/2014 8:21 AM 07/19/2014 8:43 PM Latest Code Status on File Code Status Date Activated Date Inactivated Comments DNR-CC 07/01/2021 4:10 PM 07/03/2021 6:27 PM Code Status History Code Status Date Activated Date Inactivated Comments DNR-CC 12/07/2020 1:54 AM 12/07/2020 4:16 PM Full Code 10/21/2020 12:27 AM 10/21/2020 4:54 PM Full Code 07/20/2020 7:30 PM 07/22/2020 5:47 PM Full Code 04/01/2015 2:39 PM 04/04/2015 9:16 PM Healthcare Agents on File Name [facility] Jose Guerinhi p Jailene Jenyher Davalos Other Primary Decision Maker Latest Code Status on File Code Status Date Activated Date Inactivated Comments DNR-CCA 12/01/2022 4:31 AM 12/01/2022 8:01 PM Code Status History Code Status Date Activated Date Inactivated Comments Full Code 12/01/2022 3:45 AM 12/01/2022 4:31 AM DNR-CC 07/01/2021 4:10 PM 07/03/2021 6:27 PM DNR-CC 12/07/2020 1:54 AM 12/07/2020 4:16 PM Full Code 10/21/2020 12:27 AM 10/21/2020 4:54 PM Healthcare Agents on File Name Relationship Healthcare Agent Apoorvahi p Jailene Jenyher Davalos Other Primary Decision Maker Documents on File Type Date Recorded Patient Dinner Cook Expl anation ACP-Do Not Resuscitate 08/26/2023 11:37 AM ACP-Do Not Resuscitate 08/25/2023 3:12 PM DNR-CCA 08-25-2023 ACP-Do Not Resuscitate 12/11/2020 11:29 AM Latest Code Status on File Code Status Date Activated Date Inactivated Comments DNR-CCA 08/24/2023 11:44 PM 08/25/2023 6:01 PM Code Status History Code Status Date Activated Date Inactivated Comments Full Code 08/24/2023 3:37 PM 08/24/2023 11:44 PM DNR-CCA 12/01/2022 4:31 AM 12/01/2022 8:01 PM Full Code 12/01/2022 3:45 AM 12/01/2022 4:31 AM DNR-CC 07/01/2021 4:10 PM 07/03/2021 6:27 PM Healthcare Agents on File Name Relationship Healthcare Agent Relationshi p Communication Jeny Anoop Other Primary Decision Maker Healthcare Agents on File Name Relationship Healthcare Agent Relationshi p Communication Jeny Anoop Other Primary Decision Maker Healthcare Agents on File Name Relationship Healthcare Agent Relationshi p Communication Jeny Anoop Other Primary Decision Maker Date Activated Date Inactivated Comments 08/24/2023 11:44 PM 08/25/2023 6:01 PM Date Activated Date Inactivated Comments 08/24/2023 3:37 PM 08/24/2023 11:44 PM Date Activated Date Inactivated Comments 12/01/2022 4:31 AM 12/01/2022 8:01 PM Date Activated Date Inactivated Comments 12/01/2022 3:45 AM 12/01/2022 4:31 AM Date Activated Date Inactivated Comments 07/01/2021 4:10 PM 07/03/2021 6:27 PM Healthcare Agents on File Name Relationship Healthcare Agent Relationshi p Communication Jeny Anoop Other Primary Decision Maker Healthcare Agents on File Name Relationship Healthcare Agent Relationshi p Communication Jeny Anoop Other Primary Decision Maker Documents on File Type Date Recorded Patient Dinner Cook Expl anation DNR Physician Order 11/12/2022 12:57 PM DNR Physician Order 08/26/2022 2:22 PM DNR Physician Order 01/27/2022 8:52 AM Living Will 01/27/2022 8:25 AM Durable Power of Medical Technologist Blood Bank 01/27/2022 8:25 AM DNR Physician Order 10/24/2021 11:56 AM DNR Physician Order 09/24/2021 1:05 PM Latest Code Status on File Code Status Date Activated Date Inactivated Comments DNR Comfort Care Arrest (DNR-CCA) [place] 04/06/2023 6:28 PM 04/07/2023 5:10 PM Code Status History Code Status Date Activated Date Inactivated Comments Full Code 04/06/2023 4:38 PM 04/06/2023 6:28 PM DNR Comfort Care Arrest (DNR-CCA) [place] 03/08/2023 3:16 PM 03/10/2023 8:03 PM Full Code 03/08/2023 3:12 PM 03/08/2023 3:16 PM DNR Comfort Care Arrest (DNR-CCA) [place] 02/08/2023 11:20 AM 02/10/2023 7:23 PM Healthcare Agents on File Name Relationship Healthcare Agent Relationship Communication Jeny Davalos Friend Health Care Agent Jeanie Segalalexxjong Mother First A [facility] Health Care Agent Documents on File Type Date Recorded Patient Dinner Cook Expl anation DNR Physician Order 11/12/2022 12:57 PM DNR Physician Order 08/26/2022 2:22 PM DNR Physician Order 01/27/2022 8:52 AM Living Will 01/27/2022 8:25 AM Durable Power of Medical Technologist Blood Bank 01/27/2022 8:25 AM DNR Physician Order 10/24/2021 11:56 AM DNR Physician Order 09/24/2021 1:05 PM Latest Code Status on File Code Status Date Activated Date Inactivated Comments DNR Comfort Care Arrest (DNR-CCA) [place] 04/06/2023 6:28 PM 04/07/2023 5:10 PM Code Status History Code Status Date Activated Date Inactivated Comments Full Code 04/06/2023 4:38 PM 04/06/2023 6:28 PM DNR Comfort Care Arrest (DNR-CCA) [place] 03/08/2023 3:16 PM 03/10/2023 8:03 PM Full Code 03/08/2023 3:12 PM 03/08/2023 3:16 PM DNR Comfort Care Arrest (DNR-CCA) [place] 02/08/2023 11:20 AM 02/10/2023 7:23 PM Healthcare Agents on File Name Relationship Healthcare Agent Relationship Communication Jeny Davalos Friend Health Care Agent Jeanie Raza Mother First A lternate Health Care Agent Healthcare Agents on File Name Relationship Healthcare Agent Relationship Communication Jeny Davalos Friend Health Care Agent Jeanie Raza Mother First A lternate Health Care Agent Summary Purpose Family History No Family History Records Found Relationship Condition Age at Onset Recorded Date/T len[place] Not Specified Diabetes mellitus Unknown father Hypertension Unknown Malignant neoplasm of skin Unknown sister Familial hypertriglyceridemia Unknown Pancreatitis Unknown Seizures Unknown grandparent Familial hypertriglyceridemia Unknown Relationship Condition Age at Onset Recorded Date/T lencho Not Specified Diabetes mellitus Unknown father Hypertension Unknown Malignant neoplasm of skin Unknown sister Familial hypertriglyceridemia Unknown Pancreatitis Unknown Seizures Unknown grandparent Familial hypertriglyceridemia Unknown father Malignant neoplasm Unknown Hypertension Unknown grandparent Malignant neoplasm Unknown sister Hypertension Unknown Diabetes mellitus Unknown Relationship Condition Age at Onset Recorded Date/T lencho mother Diabetes mellitus Unknown father Hypertension Unknown Malignant neoplasm of skin Unknown sister Familial hypertriglyceridemia Unknown Pancreatitis Unknown Seizures Unknown grandparent Familial hypertriglyceridemia Unknown father Malignant neoplasm Unknown Hypertension Unknown grandparent Malignant neoplasm Unknown sister Hypertension Unknown Diabetes mellitus Unknown Relationship Condition Age at Onset Recorded Date/T lencho mother Diabetes mellitus Unknown Hypertension Unknown father Malignant neoplasm of skin Unknown Malignant neoplasm Unknown sister Familial hypertriglyceridemia Unknown Malignant neoplasm of skin Unknown Pancreatitis Unknown Seizures Unknown grandparent Familial hypertriglyceridemia Unknown sister Diabetes mellitus Unknown paternal grandmother Malignant neoplasm Unknown paternal grandfather Malignant neoplasm Unknown Hospital Course * Staci Pedro, CARDIOLOGY TECH - ASSISTED LIVING NURSING DIRECTOR - 07/22/2020 2:43 PM EST Discharge Summary Pritesh Raza : 1985 Admit date: 07/20/2020 Discharge date: 07/22/2020 Admitting Physician: Shagufta Tate MD Discharge Diagnoses: Principal Problem: Hypertensive urgency Active Problems: Intractable generalized abdominal pain Type 1 diabetes mellitus (HCC) Hypertriglyceridemia Slow transit constipation Intractable vomiting Resolved Problems: * No resolved hospital problems. * Hospital Course: Pritesh Raza is a 35 y.o. female admitted with hypertensive urgency. She presented to the emergency room with complaints of epigastric, right upper quadrant, left lower quadrant pain x2 days. She explained that she had a total pancreatic ectomy for her chronic pancreatitis a nd chronic abdominal pain in 2016. She stated that she is contnued to have pain off and on since then however does not take anything for it routinely. She rated her pain at a 10 out of 10 but was requesting Dilaudid only. She was admitted and placed on Cardene drip in ICU. Her blood pressure is improved nicely however she continues to take morphine 2 mg as scheduled. Previous x-ray showed constipation repeat KUB today showed persistent colonic distention. I started Dulcolax as well as MiraLAX with her however she refused. I did stop the morphine for pain control. At this time she is choosing to sign herself out AMA. We did encourage her to stay for medication management and to help get this constipation under control to help alleviate her pain however she refuses at this time. Consultants: none Procedures: none Complications: none Discharge Condition: fair Exam: GEN: alert and oriented to person, place and time, well-developed and well- nourished, in no acute distress EYES: No gross abnormalities., PERRL and EOMI NECK: normal, supple, no lymphadenopathy, no carotid bruits PULM: clear to auscultation bilaterally- no wheezes, rales or rhonchi, normal air movement, no respiratory distress COR: regular rate & rhythm, no murmurs, no gallops, S1 normal and S2 normal ABD: Soft slightly tender bowel sounds active x4 no mass organomegaly EXT: no cyanosis, clubbing or edema present NEURO: follows commands, NAYAK, no deficits SKIN: no rashes or significant lesions Significant Diagnostic Studies: Lab Results Component Value Date WBC 14.2 (H) 07/22/2020 HGB 12.1 07/22/2020 PLT 287 07/22/2020 Lab Results Component Value Date BUN 22 (H) 07/20/2020 CREATININE 1.19 (H) 07/20/2020 NA 137 07/20/2020 K 4.2 07/20/2020 CALCIUM 9.3 07/20/2020 CL 100 07/20/2020 CO2 28 07/20/2020 LABGLOM 52 (L) 07/20/2020 Lab Results Component Value Date WBCUA 0 TO 2 08/10/2019 RBCUA 0 TO 2 08/10/2019 EPITHUA 2 TO 5 08/10/2019 LEUKOCYTESUR NEGATIVE 07/21/2020 SPECGRAV 1.015 07/21/2020 GLUCOSEU NEGATIVE 07/21/2020 KETUA NEGATIVE 07/21/2020 PROTEINU NEGATIVE 07/21/2020 HGBUR NEGATIVE 07/21/2020 CASTUA NOT REPORTED 08/10/2019 CRYSTUA NOT REPORTED 08/10/2019 BACTERIA TRACE (A) 08/10/2019 YEAST NOT REPORTED 08/10/2019 Ct Abdomen Pelvis W Iv Contrast Additional Contrast? Oral Result Date: 07/20/2020 EXAMINATION: CT OF THE ABDOMEN AND PELVIS WITH CONTRAST 07/20/2020 4:33 pm TECHNIQUE: CT of the abdomen and pelvis was performed with the administration of intravenous contrast. Multiplanar reformatted images are provided for review. Dose modulation, iterative reconstruction, and/or weight based adjustment of the mA/kV was utilized to reduce the radiation dose to as low as reasonably achievable. COMPARISON: CT abdomen and pelvis December 02, 2015. HISTORY: ORDERING SYSTEM PROVIDED HISTORY: Status post Whipple procedure. Concern for possible bowel obstruction TECHNOLOGIST PROVIDED HISTORY: Status post Whipple procedure. Concern for possible bowel obstruction Decision Support Exception->Emergency Medical Condition (MA) FINDINGS: Lower Chest: Bibasilar atelectasis/scarring. Organs: Hepatic steatosis. Patient appears to be status post Whipple like procedure. Splenectomy. 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 Multiple upper abdominal venous collaterals are identified likelypostsurgical in nature. Remaining pancreatic tissue is grossly unremarkable. Adrenal glands appear unremarkable. No enhancing renal mass or hydronephrosis. Abdominal aorta appears normal in caliber. GI/Bowel: Stomach is grossly unremarkable. Small bowel appears nondilated. Moderate amount stool burden is seen. Focal wall thickening is identified involving what appears to be a redundant sigmoid colon please see series 2, image 111. Pelvis: IUD in place. No adnexal mass. Urinary bladder is distended to the level of L4. Peritoneum/Retroperitoneum: No free air. No free fluid. Multiple prominent mesenteric lymph nodes are identified largest measuring 1 cm in short axis. Bones/Soft Tissues: Abdominal wall demonstrates no acute findings. Neural stimulator device is in place. Osseous structures demonstrate degenerative changes. 1. No CT evidence of small bowel obstruction. 2. Moderate amount stool burden seen throughout the colon suggestive underlying constipation. There appears to be focal wall thickening identified involving what appears to be a redundant sigmoid colon. A colonic lesion cannot be excluded and further evaluation with colonoscopy is suggested. 3. Distended urinary bladder to the level of L4. Catheterization may be needed. 4. Multiple prominent mesenteric lymph nodes. Finding is nonspecific and may be reactive given no documented history of malignancy in the patient's chart. Attention on follow-up issuggested. Assessment and Plan: Patient Active Problem List Diagnosis Date Noted Hypertriglyceridemia, familial : on Zocor and fish oils 12/12/2012 Priority: High Intractable generalized abdominal pain 12/11/2012 Priority: High Chronic pancreatitis (HCC) 12/11/2012 Priority: High Hypertensive urgency 07/22/2020 Slow transit constipation 07/20/2020 Intractable vomiting 07/20/2020 Presence of intrathecal pump 04/21/2018 Depressive disorder, not elsewhere classified 08/02/2015 Acute intractable headache 03/27/2015 Diabetic ketoacidosis (HCC) 05/15/2014 Type 1 diabetes mellitus (HCC) 05/15/2014 Hypertriglyceridemia 05/15/2014 Maturity onset diabetes mellitus in young : On Insulin sugars controlled 12/12/2012 Discharge Medications: Pritesh Raza Home Medication Instructions CORINE:[id number] Printed on:07/22/20 1443 Medication Information albuterol sulfate HFA 108 (90 BASE) MCG/ACT inhaler Inhale 2 puffs into the lungs every 4 hours as needed for Wheezing ALPRAZolam (XANAX) 1 MG tablet Take 1 mg by mouth 4 times daily as needed. ipahndp-xqezzp-fbgzittl (CREON 04025) 58956 UNITS per capsule Take 48,000 Units by mouth 3 times daily (with meals). toqdwto-cgqrhe-mybtrobl (CREON 08267) 57143 UNITS per capsule Take 36,000 Units by mouth as needed (with snacks or oral medications). carvedilol (COREG) 12.5 MG tablet Take 12.5 mg by mouth 2 times daily cloNIDine (CATAPRES) 0.2 MG/24HR PTWK Place 1 patch onto the skin 0.3 ergocalciferol (ERGOCALCIFEROL) 30299 units capsule Take 50,000 Units by mouth Twice a Week furosemide (LASIX) 40 MG tablet Take 40 mg by mouth as needed glucagon 1 MG injection Infuse 1 kit intravenously once hydrOXYzine (ATARAX) 10 MG tablet Take 10 mg by mouth daily hydrOXYzine (ATARAX) 50 MG tablet Take 50 mg by mouth nightly insulin aspart (NOVOLOG) 100 UNIT/ML injection vial Inject into the skin Patient is on an insulin pump. lisinopril (PRINIVIL;ZESTRIL) 20 MG tablet Take 1 tablet by mouth 2 times daily montelukast (SINGULAIR) 10 MG tablet Take 10 mg by mouth nightly NIFEdipine (PROCARDIA XL) 60 MG extended release tablet Take 60 mg by mouth daily polyethylene glycol (GLYCOLAX) 17 g packet Take 17 g by mouth daily QUEtiapine (SEROQUEL) 200 MG tablet Take 100 mg by mouth daily tiZANidine (ZANAFLEX) 4 MG tablet Take 8 mg by mouth 2 times daily. ULTRA-COMFORT INSULIN SYRINGE 30G X 5/16 0.3 ML MISC zolpidem (AMBIEN) 5 MG tablet Take 5 mg by mouth nightly as needed for Sleep (May repeat in 1/2 hour if not asleep) Patient Instructions: Activity: activity as tolerated Diet: encourage fluids Wound Care: none needed Other: None Disposition: Discharge to Home AMA Follow up: Patient will be followed by Guerrero Don DO in 1-2 weeks CORE MEASURES on Discharge (if applicable) PALOMA/ARB in CHF: NA Statin in HI: NA ASA in HI: NA Statin in CVA: NA Antiplatelet in CVA: NA Total time spent on discharge services: 45 minutes Including the following activities: Evaluation and Management of patient Discussion with patient and/or surrogate about current care plan Coordination with Case Management and/or Boat Hoist Operator Coordination of care with Consultants (if applicable) Coordination of care with Receiving Facility Physician (if applicable) Completion of DME forms (if applicable) Preparation of Discharge Summary Preparation of Medication Reconciliation Preparation of Discharge Prescriptions Signed: Staci Pedro APRN, [employer] 07/22/2020, 2:43 PM documented in this encounter History of Present Illness * Em Magana RN - 07/22/2020 3:[address] Mathur's office called and questioned if pt was still admitted. Spoke with Jey Mills RN ICU, and she informs pt has signed out AMA and no need for cardiology consult. Dr. Mathur's office informed. * Mee Clayton LSW - 07/22/2020 2:00 PM EST Called to Patient's room late this a.m. for social work question. Patient states that she may need for a ride home to be coordinated if she is not released by this evening. CLERICAL OFFICE informs Patient thata ride home can be coordinated for whenever she is released. Patient then inquires if she would sign herself out AMA if her insurance would still pay for her hospitalization. Discussed that if she would leave AMA that she would need to coordinate her own ride as well. All of above relayed to primary RNJey. CLERICAL OFFICE to monitor for further needs and assist as appropriate. TIANA Pal 07/22/2020 * Patrice Lopez RD, LD - 07/22/2020 11:12 AM EST Comprehensive Nutrition Assessment Type and Reason for Visit: Initial, Positive Nutrition Screen Nutrition Recommendations/Plan: Encourage oral intakes Nutrition Assessment: Predicted suboptimal nutrient intakes r/t pain, AEB low PO intakes since admission. Denies usual PO issues, but is very lethargic upon visit and mumbles most responses. History of poorly controlled diabetes, on pump, s/p pancreatectomy. Declines offer to use nutrition supplement at this time. Hypoactive bowel sounds, BLE edema. Chronic pancreatic enzyme use. Malnutrition Assessment: Malnutrition Status: At risk for malnutrition (Comment) Context: Acute Illness Findings of the 6 clinical characteristics of malnutrition: Energy Intake: Mild decrease in energy intake (Comment)(acutely) Weight Loss: No significant weight loss Body Fat Loss: No significant body fat loss Muscle Mass Loss: No significant muscle mass loss Fluid Accumulation: 1 - Mild Extremities Glass Embosser Strength: Not Performed Estimated Daily Nutrient Needs: Energy (kcal): 4055-2505(18-22); Weight Used for Energy Requirements: Current Protein (g): 76-95(1.2-1.5); Weight Used for Protein Requirements: [place] Fluid (ml/day): 1800; Method Used for Fluid Requirements: 1 ml/kcal Nutrition Related Findings: lethargic Wounds: None Current Nutrition Therapies: DIET CARB CONTROL; Carb Control: 4 carb choices (60 gms)/meal; Low Sodium (2 GM) Anthropometric Measures: Height: 5' 8 (172.7 cm) Current Body Weight: 173 lb 11.2 oz (78.8 kg) Admission Body Weight: 173 lb 11.2 oz (78.8 kg) Usual Body Weight: 150 lb (68 kg)(in August) [place] Body Weight: 140 lbs; % [place] Body Weight 124.1 % BMI: 26.4 Adjusted Body Weight: ; No Adjustment BMI Categories: Overweight (BMI 25.0-29.9) Nutrition Diagnosis: Predicted inadequate energy intake related to pain as evidenced by intake 0-25% Lab Results Component Value Date NA 137 07/20/2020 K 4.2 07/20/2020 CL 100 07/20/2020 CO2 28 07/20/2020 BUN 22 (H) 07/20/2020 CREATININE 1.19 (H) 07/20/2020 GLUCOSE 161 (H) 07/20/2020 CALCIUM 9.3 07/20/2020 PROT 7.7 07/20/2020 LABALBU 4.2 07/20/2020 BILITOT 0.43 07/20/2020 ALKPHOS 121 (H) 07/20/2020 AST 48 (H) 07/20/2020 ALT 51 (H) 07/20/2020 LABGLOM 52 (L) 07/20/2020 GFRAA >60 07/20/2020 GLOB NOT REPORTED 02/02/2019 Lab Results Component Value Date LABA1C 12.4 (H) 12/03/2015 Lab Results Component Value Date EAG 309 12/03/2015 No results for input(s): POCGLU in the last 72 hours. Nutrition Interventions: Food and/or Nutrient Delivery: Continue Current Diet Nutrition Education/Counseling: No recommendation at this time Coordination of Nutrition Care: Continue to monitor while inpatient Goals: PO >75% meals with consistent carb intakes Nutrition Monitoring and Evaluation: Behavioral-Environmental Outcomes: Beliefs and Attitutes, Knowledge or Skill Food/Nutrient Intake Outcomes: Food and Nutrient Intake Physical Signs/Symptoms Outcomes: Biochemical Data, GI Status, Weight, Meal Time Behavior Discharge Planning: Too soon to determine Contact: [phone] * Mee Clayton LSW - 07/22/2020 10:11 AM EST Met with Patient this a.m. to discuss discharge planning. Patient is a 35 year old legally , white female, admitted with a diagnosis of Intractable generalized abdominal pain. Patient is alert and oriented, presents with flat affect. Does not make eye contact with this chief writer. She is polite and cooperative with this assessment. States that she wishes to return home with her parents upon discharge. Patient resides in [place] with her parents. She uses a wheelchair and a nebulizer machine athome and also has an implanted insulin pump and a port. Patient reports using no outside services at this time. She does drive but usually relies on family or friends for her transportation needs. Patient is noted to receive social security disability for her on going GI issues and also has a history of anxiety as well. PCP is Dr. Don. Patient relates that she is still under her ex-husbands insurance as her primary with Medicare being secondary. Relates that she has the beginning of the year out of pocket costs for her prescriptions but usually they are very affordable. Discharge plan is to return home with her parents when deemed medically stable. Patient notes no unmet discharge planning needs or concerns at this time. Patient further states that she is a 'DNR' and does have medical directives on file. She does not understand why everyone continues to ask her about these things. Explained that as a healthcare organization that receives Medicare dollars that weare obligated to provide information re: these documents. Apologized for any inconvenience and she accepts this rationale and continues I've provided them to you more than once and they tell me theywill be scanned in? CLERICAL OFFICE to monitor for needs and assist as appropriate. TIANA Pal 07/22/2020 * Staci Pedro, CARDIOLOGY TECH - ASSISTED LIVING NURSING DIRECTOR - 07/22/2020 7:05 AM EST ICU Progress Note SUBJECTIVE/INTERVAL HISTORY: Patient seen in follow up for hypertension, abdominal pain and vomiting. She is resting in bed alert and oriented in no acute distress. She does admit that her abdominal pain is better. She is currently off the Cardene drip. She denies any emesis since yesterday. She is afebrile. OBJECTIVE: Vitals: Temp: 98 F (36.7 C) Temp range: Temp Av.5 F (36.9 C) Min: 97.9 F (36.6 C) Max: 99.1 F (37.3 C) BP: 120/73 BP Range: Systolic (24hrs), Av , Min:115 , Max:230 Diastolic (24hrs), Av, Min:69, Max:162 Pulse: 54 Pulse Range: Pulse Av.9 Min: 52 Max: 95 Resp: 13 Resp Range: Resp Av.7 Min: 11 Max: 26 SpO2: 93 % on room air SpO2 range: SpO2 Av.3 % Min: 88 % Max: 95 % 24HR INTAKE/OUTPUT: Intake/Output Summary (Last 24 hours) at 07/22/2020 1318 Last data filed at 07/22/2020 1151 Gross per 24 hour Intake 4942 ml Output 4100 ml Net 842 ml Review of Systems: Constitutional:negative for fevers, and negative for chills. Eyes: negative for visual disturbance ENT: negative for sore throat, negative nasal congestion, and negative for earache Respiratory: negative for shortness of breath, negative for cough, and negative for wheezing Cardiovascular: negative for chest pain, negative for palpitations, and negative for syncope Gastrointestinal: positive for abdominal pain, negative for nausea,negative for vomiting, negative for diarrhea, negative for constipation, and negative for hematochezia or melena Genitourinary: negative for dysuria, negative for urinary urgency, negative for urinary frequency, and negative for hematuria Skin: negative for skin rash, and negative for skin lesions Neurological: negative for unilateral weakness, numbness or tingling. Exam: GEN: alert and oriented to person, place and time, well-developed and well- nourished, in no acute distress EYES: No gross abnormalities., PERRL and EOMI NECK: normal, supple, no lymphadenopathy, no carotid bruits PULM: clear to auscultation bilaterally- no wheezes, rales or rhonchi, normal air movement, no respiratory distress COR: regular rate & rhythm, no murmurs, no gallops, S1 normal and S2 normal ABD: Soft slightly tender bowel sounds active x4 no mass organomegaly EXT: no cyanosis, clubbing or edema present NEURO: follows commands, NAYAK, no deficits SKIN: no rashes or significant lesions Diagnostic Data: Lab Results Component Value Date WBC 14.2 (H) 07/22/2020 HGB 12.1 07/22/2020 HCT 38.9 07/22/2020 PLT 287 07/22/2020 CHOL 155 01/22/2014 TRIG 312 (H) 07/21/2020 HDL UNABLE TO BE COMPLETED DUE TO LIPEMIA 07/05/2013 LDLDIRECT 48 12/13/2012 ALT 51 (H) 07/20/2020 AST 48 (H) 07/20/2020 NA 137 07/20/2020 K 4.2 07/20/2020 CL 100 07/20/2020 CREATININE 1.19 (H) 07/20/2020 BUN 22 (H) 07/20/2020 CO2 28 07/20/2020 TSH 6.75 (H) 03/27/2015 INR 1.2 07/21/2020 LABA1C 8.9 (H) 07/20/2020 BNP NOT REPORTED 06/30/2013 ASSESSMENT: Principal Problem: Hypertensive urgency Active Problems: Intractable generalized abdominal pain Type 1 diabetes mellitus (HCC) Hypertriglyceridemia Slow transit constipation Intractable vomiting Resolved Problems: * No resolved hospital problems. * Patient Active Problem List Diagnosis Date Noted Hypertriglyceridemia, familial : on Zocor and fish oils 12/12/2012 Priority: High Intractable generalized abdominal pain 12/11/2012 Priority: High Chronic pancreatitis (HCC) 12/11/2012 Priority: High Hypertensive urgency 07/22/2020 Slow transit constipation 07/20/2020 Intractable vomiting 07/20/2020 Presence of intrathecal pump 04/21/2018 Depressive disorder, not elsewhere classified 08/02/2015 Acute intractable headache 03/27/2015 Diabetic ketoacidosis (HCC) 05/15/2014 Type 1 diabetes mellitus (HCC) 05/15/2014 Hypertriglyceridemia 05/15/2014 Maturity onset diabetes mellitus in young : On Insulin sugars controlled 12/12/2012 PLAN: Principal Problem: Hypertensive urgency Active Problems: Intractable generalized abdominal pain Type 1 diabetes mellitus (HCC) Hypertriglyceridemia Slow transit constipation Intractable vomiting Resolved Problems: * No resolved hospital problems. * Intractable generalized abdominal pain Amylase daily--stable Lipase daily--stable CBC with differential daily Ambulate Diabetic diet Hypertensive urgency Off Cardene drip Continue clonidine, lisinopril, nifedipine Appreciate cardiology to assist with medication management Type 1 diabetes mellitus Insulin pump POCT before meals and at bedtime Hypoglycemia protocol Slow transit constipation KUB today MiraLAX daily High risk medication:Morphine Discharge plan: Home when stable Staci Pedro APRN, [employer] 07/22/2020, 1:18 PM Associated attestation - Shagufta Tate MD - 07/22/2020 1:35 PM EST Attestation 07/22/20 I personally evaluated and examined the patient [id number] in conjunction with the [employer] and agree with the management and dispostition of the patient. Please see [employer]'s progress note for full details. My novoa findings are: SUBJECTIVE: Patient seen for follow up of Hypertensive urgency. She continues to have elevated bp. Vomiting better, has abdominal pain Review of Systems: Constitutional: negative for fevers or chills Eyes: negative for visual disturbance ENT: negative for sore throat or nasal congestion Respiratory: negative for shortness of breath or cough Cardiovascular: negative for chest pain ,palpitations,pnd,syncope Gastrointestinal: negative for abd pain, nausea, vomiting, diarrhea , constipation,hemetemesis,annette,blood in stool Genitourinary: negative for dysuria, urgency ,frequency,hematuria Integument/breast: negative for skin rash or lesions Neurological: negative for unilateral weakness, numbness or tingling. Skeletal Muscular: no joint pain,jont swelling,back pain OBJECTIVE: Vitals: Temp: 98 F (36.7 C) BP: 120/73 Resp: 13 Pulse: 54 SpO2: 93 % 24HR INTAKE/OUTPUT: Intake/Output Summary (Last 24 hours) at 07/22/2020 1334 Last data filed at 07/22/2020 1151 Gross per 24 hour Intake 4942 ml Output 4100 ml Net 842 ml Exam: GEN: Awake, alert and oriented x 3. no acute distress EYES: EOMI, pupils equal NECK: Supple. No lymphadenopathy. No carotid bruit CVS: RRR, no murmur, rub or gallop PULM: CTA, no wheezes, rales or rhonchi ABD: Bowels sounds normal. Abdomen is soft. No distention. Has diffuse tenderness. EXT: no edema bilaterally . No calf tenderness. NEURO: Motor and sensory are intact SKIN: No rashes. No skin lesions. Diagnostic Data: All available data reviewed Lab Results Component Value Date WBC 14.2 (H) 07/22/2020 HGB 12.1 07/22/2020 MCV 97.7 07/22/2020 PLT 287 07/22/2020 Lab Results Component Value Date GLUCOSE 161 (H) 07/20/2020 BUN 22 (H) 07/20/2020 CREATININE 1.19 (H) 07/20/2020 NA 137 07/20/2020 K 4.2 07/20/2020 CALCIUM 9.3 07/20/2020 CL 100 07/20/2020 CO2 28 07/20/2020 ASSESSMENT: Principal Problem: Hypertensive urgency Active Problems: Intractable generalized abdominal pain Type 1 diabetes mellitus (HCC) Hypertriglyceridemia Slow transit constipation Intractable vomiting Resolved Problems: * No resolved hospital problems. * PLAN: I agree with the plan as outlined in the [employer]'s note Principal Problem: Hypertensive urgency Active Problems: Intractable generalized abdominal pain Type 1 diabetes mellitus (HCC) Hypertriglyceridemia Slow transit constipation Intractable vomiting Resolved Problems: * No resolved hospital problems. * Cardiology consult * Mary Newsome RN - 07/21/2020 5:[address] Tate contacted per pt request, he is okay with changing morphine back to every 2 hours. No otherorders at this time. * Mary Newsome RN - 07/21/2020 5:38 PM EST Pt called out requesting pain medication. Updated pt that she is not due for pain medication at this time, that it is ordered every 4 hours. Pt asked why time had been increased to every 4 hours whenshe was getting it every 2 hours during the night. Adjuster And Inspector explained to pt that Dr Tate had put it at every four hours because that was what the Dilaudid was ordered at. Pt requesting that Dr. Tate becontacted to see if he will change Morphine back to every 2 hours. * Mary Newsome RN - 07/21/2020 5:15 PM EST Did not increase cardene drip at this time, pt had just gotten up to bathroom. Will see what next pressure is and adjust medication accordingly. * Mary Newsome RN - 07/21/2020 2:43 PM EST Adjuster And Inspector and Zoltan H RN to bedside with Dr. Tate on phone to speak to pt about transfer. Pt refuses to be transferred at this time. Would rather go home. Dr Tate updated pt that her blood pressure is very high and he would like to transfer pt to ICU to start her on drip for blood pressure. Pt agreeable to transfer to ICU. Pt moved back to ICU at 1505. Pt ambulated into the bathroom then to bed. Wires attached, blood pressure obtained. Will start Cardene drip shortly. KSON * Mary Newsome RN - 07/21/2020 2:[address] Tate and updated him that pt does not want to be transferred. Dr Tate requested that nursing supervisor policy change clerks speak to pt about transferring to another facility. Adjuster And Inspector to update Dr Tate after supervisor policy change clerks speaks to pt. Adjuster And Inspector returning to bedside to given PRN Dilaudid. KSON * Mary Newsome RN - 07/21/2020 1:58 PM EST Adjuster And Inspector to bedside to check on pt, and see if pt wanted a Xanax to see if that would help her. Pt states that she does not want a Xanax at this time. Pt states you gotta do something! I can't take much more of this! while in the room chief writer noted that pt had an episode of emesis that was bloody with some small clots. Adjuster And Inspector spoke to Dr Tate, updated him on bloody emesis and pts uncontrolled painand nausea. Dr Tate would like to transfer pt. Adjuster And Inspector returned to bedside at 1401, updated pt that Dr Taet would like to transfer her as there is not much more that can be done for her at this facility. Pt states that she does not want to be transferred and that she wants to be discharged if she is going to be transferred. Adjuster And Inspector obtained afternoon vitals. Pt hypertensive at this time, PRN Lopressor given at 1406 along with PRN Zofran for nausea. Pt not due for pain medication until 1430. Adjuster And Inspector informed pt that Dr Tate would be updated that she does not want transferred and that chief writer will bring PRN Dilaudid as close to due time as chief writer can. Pt denies other needs at this time. Call light in reach. Will continue to monitor. * Mary Newsome RN - 07/21/2020 1:50 PM EST Pt called out asking for pain medication. Informed her that pain medication was not due until 1430,but that chief writer would be down shortly to bring her nausea medication. * Mary Newsome RN - 07/21/2020 9:[address] Tate made aware of critical high PTT. * Mary Newsome RN - 07/21/2020 8:00 AM EST Adjuster And Inspector attempted to give morning medications and change IV rate at this time. Pt up to bathroom, chief writer will return at a later to time to pass meds. KSON * Mary Newsome RN - 07/21/2020 7:05 AM EST AM labs drawn from port at this time. * Mary Newsome RN - 07/21/2020 6:42 AM EST Adjuster And Inspector to bedside to complete morning assessment and vitals. Pt resting in bed with eyes shut. Pt awakens to sound of chief writer in room. Vitals obtained and morning assessment completed. See flow sheet for details. Pt c/o 9/10 abdominal pain at this time. PRN Morphine given. Lab waiting to draw AM labs. Pt denies other needs from chief writer at this time. Call light in reach. Will continue to monitor. * Letty Cedillo RN - 07/20/2020 11:23 PM EST Call placed to Dr. Tate, patient reporting no relief from pain after 2 doses of morphine 2mg q2hrs prn. Also informed Dr. Tate that patient is vomiting blood, emesis appears to look like watered downfruit punch. Dr. Tate was also informed that the clonidine patch she was prescribed at admission isnot available in this hospital. New orders received to increase morphine to 4mg every 2 hrs PRN, and for metoprolol 5mg IV every 6 hrs PRN. * Letty Cedillo RN - 07/20/2020 10:15 PM EST Received report from Nurse Flowers on patient. * Elijah Barclya RN - 07/20/2020 7:30 PM EST Admit from the ER intractable N/V. PT is alert and oriented. PT has a long time time HX of abdominal pain since mid teenage years.PT is on disability for her GI issues. Has had the Whipple procedure and appendectomy. Has watery fruit punch colored emesis PT. Also has a bladder malformation but refuses indwelling catheter. In the recent past she has had a central line placed in the right chest to facilitate IV fluids and pain meds. Abdomin is bloated with diffuse tenderness Very quiet bowel sounds.Denies any dysuria. No lower extremity edema. PT lives at home with her parents. Drives very little. documented in this encounter Reason for Referral Specialty Diagnoses / Procedures Referred By Lauren pascual Referred To Contact Radiology Diagnoses Difficult intravenous access Procedures IR PICC line PICC RN without port pump more than 5 years without guidance Ritesh Rodriguez, [address] [place] [address] Referral ID Status Reason Start Date Expiration Date V isits Requested Visits Authorized [id number] Pending Review 06/08/2023 06/07/2024 1 1 Specialty Diagnoses / Procedures Referred By Lauren pascual Referred To Contact Radiology Diagnoses Difficult intravenous access Procedures IR remove port Ritesh Rodriguez, [address] [place] [id number] Referral ID Status Reason Start Date Expiration Date V isits Requested Visits Authorized [id number] Pending Review 06/08/2023 06/07/2024 1 1 Reason * Waiting for appt current port being removed at [place], will get PICC and will then need new port placed. Diagnosis 1 Vomiting, intractabi lity of vomiting not specified, presence of nausea not specified, unspecified vomiting type (R11.10) Referral Organization [facility] Family Medicin yash Etienne Referring Provider First Name Jalyn Referring Provider Last Name [facility] Referring Provider Specialty [facility] Referred Organization [facility] [place] Referred Provider Poly Morgan Referred Address [address] ,[place], [place],[id number] Referred Provider Specialty Vascular Jose Enrique ronaldo Referral Priority Routine General Notes Cherelle Barron 10/2023 09:46:42 AM >referral received and sent p2p Reason port issues, placed recnently by IR in [place] Diagnosis 1 Port-a-cath in place (Z95.828) Referral Organization [facility] Family Medicin y[facility] Referring Provider First Name Jalyn Referring Provider [facility] Referring Provider Specialty [facility] Referred Organization Unknown Facility Referred Provider Specialty Vascular Jose Enrique ronaldo Referral Priority Urgent * nausea/vomiting, HTNnausea/vomiting, HTN Reason * FU 08/20 rambase k-multiple reported antibiotic allergies. Diagnosis 1 Allergy to antibioti c (Z88.1) Referral Organization [facility] Family Medicin y[facility] Referring Provider First Name Jalyn Referring Provider Last Name [facility] Referring Provider Specialty [facility] Referred Organization [facility] Referred Provider Cash Graham Referred Address ,[place], [place],[address] Referred Provider Specialty Allergy/Immu nology Referral Priority Routine General Notes Cherelle Barron 02:58:10 PM >referral received and sent p2p Cherelle Barron 07/30/2022 07:55:30 AM > faxed letter to see if pt has been scheduled Cherelle Barron 08/06/2022 08:31:53 AM > faxed letter to see if pt has been scheduled Cherelle Barron 08/13/2022 10:21:29 AM >faxed letter to see if pt has been scheduled Specialty Diagnoses / Procedures Referred By Lauren pascual Referred To Contact [facility] Diagnoses Rectal prolapse Procedures CONSULT TO PHYSICAL THERAPY PHYSICAL THERAPY EVALUATION HIGH COMPLEX 45 MINS [place] APRN.ASSISTED LIVING NURSING DIRECTOR [phone] [facility] [place] [address] Referral ID Status Reason Start Date Expiration Date Visits Requested Visits Authorized [id number] Pending Review Auto-Generat ed Referral 06/02/[address] pendleton - [id number] Diagnosis 1 Chronic kidney disea se, stage III (moderate) (N18.30) Referral Organization [facility] Etienne Referring Provider First Name Jalyn Referring Provider Last Name Jonathon Referring Provider Specialty Family Medi cine Referred Organization Unknown Facility Referred Provider Specialty Nephrology Referral Priority Routine Specialty Diagnoses / Procedures Referred By Contac t Referred To Contact Diagnoses Constipation, unspecified constipation type Procedures IN PERSON CONSULT TO PAC Cheryl East DO [address] [phone] Referral ID Status Reason Start Date Expiration Date Visits Requested Visits Authorized [id number] Ref Not Required PCP Requested Referral 02/18/2022 05/19/2022 1 1 Specialty Diagnoses / Procedures Referred By Contac t Referred To Contact [facility] Diagnoses Constipation, unspecified constipation type Procedures ECG COMPLETE ECG ROUTINE ECG W/LEAST 12 LDS W/I&R Cheryl East DO [address] [place] [address] [place] [address] Referral ID Status Reason Start Date Expiration Date Visits Requested Visits Authorized [id number] Pending Review Auto-Generat ed Referral 02/18/2022 02/18/2023 1 1 Specialty Diagnoses / Procedures Referred By Contac t Referred To Contact Diagnoses Rectal prolapse Procedures VIRTUAL CONSULT TO [facility] Cheryl East DO [address] [place] [address] Referral ID Status Reason Start Date Expiration Date Visits Requested Visits Authorized [id number] Ref Not Required PCP Requested Referral 01/01/2022 04/01/2022 1 1 Reason rectal prolpase-hx o f surgery for this in [place] Diagnosis 1 Rectal prolapse (K62 .3) Referral Organization [facility] [place] Referring Provider First Name Jalyn Referring Provider Last Name Jonathon Referring Provider Specialty [facility] Referred Organization Unknown Facility Referred Provider Specialty General Surg elvis Referral Priority Routine Chief Complaint and Reason for Visit Chief Complaint E10.9 Rectal Pain Chief Complaint E10.9 Rectal Pain side pain sent by Chief Complaint Rectal Pain side pain sent by E10.65 D64.9 Chief Complaint E10.9 stroke concerns sent by Reason for Visit JUAN (acute kidney in [place]) Left against medical advice Left-sided weakness Rhabdomyolysis Chief Complaint M79.18 M25.462 See order Chief Complaint See order lower abd pain Chief Complaint E10.9 issues with port Chief Complaint E10.9 issues with port has port, swollen painful Chief Complaint E10.9 issues with port has port, swollen painful bp high, sent by Chief Complaint issues with port has port, swollen painful bp high, sent by E10.9 intractibility vomiting Chief Complaint issues with port has port, swollen painful bp high, sent by dr Duffy On 05/19, Vomiting, High Blood Pres 3 Month F/U E10.9 intractibility vomiting CC Adult Risk Stratification Intractability Vomitting Chief Complaint issues with port has port, swollen painful bp high, sent by dr Duffy On 05/19, Vomiting, High Blood Pres 3 Month F/U E10.9 intractibility vomiting CC Adult Risk Stratification Talk About Infusaport Placement- Unable Intractability Vomitting Chief Complaint intractibility vomit ing CC Adult Risk Stratification Talk About Infusaport Placement- Unable Intractability Vomitting Cough, congestion PUMP Reason for Visit Bronchitis Dietary counseling and surveillance History of pancreatectomy Hypertension Insulin long-term use Insulin pump titration Mixed hyperlipidemia Type 1 diabetes mellitus Chief Complaint Cough, congestion PUMP 3 month follow up Reason for Visit Bronchitis BMI 23.0-23.9, adult Dietary counseling and surveillance History of pancreatectomy Hypertension Hypoglycemia Insulin long-term use Insulin pump titration Mixed hyperlipidemia Type 1 diabetes mellitus Chief Complaint 3 month follow up pump Reason for Visit HTN (hypertension) Seasonal allergies Type 1 diabetes mellitus BMI 23.0-23.9, adult Dietary counseling and surveillance History of pancreatectomy Hypertension Hypoglycemia Insulin long-term use Insulin pump titration Mixed hyperlipidemia Type 1 diabetes mellitus Chief Complaint pump 3 month follow up hospital follow-up Reason for Visit BMI 23.0-23.9, adult Dietary counseling and surveillance History of pancreatectomy Hypertension Hypoglycemia Insulin long-term use Insulin pump titration Mixed hyperlipidemia Type 1 diabetes mellitus Blood in stool HTN (hypertension) Type 1 diabetes mellitus Thyroid nodule Chief Complaint pump 3 month follow up hospital follow-up Reason for Visit BMI 23.0-23.9, adult Dietary counseling and surveillance History of pancreatectomy Hypertension Hypoglycemia Insulin long-term use Insulin pump titration Mixed hyperlipidemia Type 1 diabetes mellitus Blood in stool HTN (hypertension) Type 1 diabetes mellitus Nausea and vomiting Thyroid nodule Chief Complaint hospital follow-up 3 month f/u / pump Reason for Visit Nausea and vomiting Thyroid nodule BMI 23.0-23.9, adult Dietary counseling and surveillance History of pancreatectomy Hypertension Hypoglycemia Insulin long-term use Insulin pump titration Mixed hyperlipidemia Type 1 diabetes mellitus Chief Complaint Admit Date hospital follow-up February 25, 2024 11:06am 3 month f/u / pump April 11, 2024 9 :49am Pre-Surgical Testing April 25, 2024 10:06am Reason for Visit Admit Date Nausea and vomiting February 25, 2024 11:06am Thyroid nodule February 25, 2024 11:06am BMI 22.0-22.9, adult April 11, 2024 9:49am Dietary counseling and surveillance Radha acharya 2023 9:49am History of pancreatectomy April 11, 2024 9:49am Hypertension April 11, 2024 9 :49am Hypoglycemia April 11, 2024 9 :49am Insulin long-term use April 11, 2024 9:49am Insulin pump titration April 11 9:49am Mixed hyperlipidemia April 11, 2024 9:49am Type 1 diabetes mellitus April 11 024 9:49am Chief Complaint Admit Date 4 month follow up May 08, 2024 8 :48am Thyroid Nodule May 15, 2024 5 :54am 3 month / pump August 02, 2024 9:12am Reason for Visit Admit Date HTN (hypertension) May 08, 2024 8 :48am Thyroid nodule May 08, 2024 8 :48am Type 1 diabetes mellitus May 08 8:48am BMI 22.0-22.9, adult August 02, 2024 9:12am Dietary counseling and surveillance Ry gu 2024 9:12am History of pancreatectomy August 02, 2024 9:12am Hypertension August 02, 2024 9:12am Hypoglycemia August 02, 2024 9:12am Insulin long-term use August 02 9:12am Insulin pump titration August 02 9:12am Mixed hyperlipidemia August 02, 2024 9:12am Type 1 diabetes mellitus August 02, 2024 9:12am Chief Complaint Admit Date 4 month follow up May 08, 2024 8 :48am Thyroid Nodule May 15, 2024 5 :54am 3 month / pump August 02, 2024 9:12am Urogenital Pain August 04, 2024 3:44am Reason for Visit Admit Date HTN (hypertension) May 08, 2024 8 :48am Thyroid nodule May 08, 2024 8 :48am Type 1 diabetes mellitus May 08 8:48am BMI 23.0-23.9, adult August 02, 2024 9:12am Dietary counseling and surveillance [facility] 2024 9:12am History of pancreatectomy August 02, 2024 9:12am Hypertension August 02, 2024 9:12am Hypoglycemia August 02, 2024 9:12am Insulin long-term use August 02 9:12am Insulin pump titration August 02 9:12am Mixed hyperlipidemia August 02, 2024 9:12am Type 1 diabetes mellitus August 02, 2024 9:12am Chief Complaint Admit Date 3 month / pump August 02, 2024 9:12am Urogenital Pain August 04, 2024 3:44am Amb Documentation August 07, 2024 3:45 pm Amb Documentation August 15, 2024 2:0 8pm Menorrhagia w/ Irregular Cycle August 8:15am Reason for Visit Admit Date BMI 23.0-23.9, adult August 02, 2024 9:12am Dietary counseling and surveillance [facility] 2024 9:12am History of pancreatectomy August 02, 2024 9:12am Hypertension August 02, 2024 9:12am Hypoglycemia August 02, 2024 9:12am Insulin long-term use August 02 9:12am Insulin pump titration August 02 9:12am Mixed hyperlipidemia August 02, 2024 9:12am Type 1 diabetes mellitus August 02, 2024 9:12am Chief Complaint Admit Date 3 month / pump August 02, 2024 9:12am Urogenital Pain August 04, 2024 3:44am Amb Documentation August 07, 2024 3:45 pm Amb Documentation August 15, 2024 2:0 8pm Menorrhagia w/ Irregular Cycle August 8:15am Menorrhagia w/ Irregular Cycle September 5:48am Chief Complaint Admit Date 3 month / pump August 02, 2024 9:12am Urogenital Pain August 04, 2024 3:44am Amb Documentation August 07, 2024 3:45 pm Amb Documentation August 15, 2024 2:0 8pm Menorrhagia w/ Irregular Cycle August 8:15am Menorrhagia w/ Irregular Cycle September 5:48am 4 month follow up September 25, 2024 9:5 5am Chief Complaint Admit Date Amb Documentation August 15, 2024 2:0 8pm Menorrhagia w/ Irregular Cycle August 8:15am Menorrhagia w/ Irregular Cycle September 5:48am 4 month follow up September 25, 2024 9:5 5am 3 month-PUMP November 06, 2024 9:05a m Reason for Visit Admit Date Diabetes mellitus with chronic kidney di sease September 25, 2024 9:55am HTN (hypertension) September 25, 2024 9:5 5am BMI 23.0-23.9, adult November 06, 2024 9:05 am Dietary counseling and surveillance November 06, 2024 9:05am History of pancreatectomy November 06, 2024 9:05am Hypertension November 06, 2024 9:05a m Hypoglycemia November 06, 2024 9:05a m Insulin long-term use November 06, 2024 9:0 5am Insulin pump titration November 06, 2024 9: 05am Mixed hyperlipidemia November 06, 2024 9:05 am Type 1 diabetes mellitus November 06, 2024 9:05am Additional Source Comments Reason for Visit (unrecogniz ed section and content) Reason Comments Hypoglycemia Emesis Reason Comments Abdominal Pain onset 3 days ago; in itially had vomiting and then abdominal pain Reason Comments Abdominal Pain Pt c/o generalized a bdominal pain x2 days. Denies diarrhea. Reports nausea with no emesis Reason Comments Abdominal Pain Epigastric, RUQ, LUQ pain x 2 days. Pt has history of pancreatic/spleen surgery Emesis Onset 2 days ago Reason Comments Vaginitis Reason Comments Abdominal Pain bloody emesis Reason Comments Emesis x1 today with blood noted, recent upper GI scope Dizziness onset today Abdominal Pain RUQ Reason Comments Hematemesis states was in ER yes terday for vomiting blood, got worse last night Reason Comments Shortness of Breath pt states she has be en vomiting blood and had a low HGB when discharged from [facility] yesterday (7.2) Abdominal Pain ongoing, has been vo miting blood off and on for several weeks Reason Comments Hemoptysis x3 months Dysuria recent completion of atb Reason Comments Hematemesis Dizziness Status Reason Specialty Diagnoses / Procedures Referre d By Contact Referred To Contact Diagnoses Anemia anemia Britni Kendall DO [address], [address] [place] [address] [facility] Reason Comments Other Pt states she has a chronic bleed and had and increase in the amount of bloody emesis Shortness of Breath started yesterday Reason Comments Abdominal Pain Chronic, epigastric sharp, radiating to bilateral back. Hematemesis Onset 1 week ago, wo rse x 2 days Reason Comments Hemoptysis x1 week Reason Comments Emesis vomiting blood for p ast week, had blood transfusion here wednesday x 2 units Abdominal Pain Reason Comments Manometry Reason Comments Patient Education Reason Comments Patient Question Returning Patient's Call Reason Comments Radio GI Main HB6 Specialty Diagnoses / Procedures Referred By Lauren pascual Referred To Contact XR IMAGING Diagnoses Rectal prolapse Procedures XR DEFECOGRAPHY RADIOLOGIC EXAM COLON SINGLE CONTRAST STUDY Chreyl East DO [address] [place] [address] Xr Imaging Referral ID Status Reason Start Date Expiration Date V isits Requested Visits Authorized [id number] Closed Auto-Generate d Referral 12/31/2021 01/30/2023 1 1 Reason Comments Pre-Op Visit Reason Comments Patient Question Reason Comments Returning Patient's Call Reason Comments Manager Field - Other Reason Comments Patient Update Reason Comments Returning Patient's Call Returning ED pr ovider call. Reason Comments Schedule Surgery Reason Comments Pain Reason Comments Migraine Onset , stat es home medications are not working, denies vision changes, c/o sensitivity to light Reason Comments Abdominal Pain Ongoing LLQ pain krissy t wraps around to left flank area. Hx: rectal prolapse Emesis Reason Comments Preparations For Surgery Reason Comments Anesthesia Consult Pre-op evaluation Specialty Diagnoses / Procedures Referred By Controldan pascual Referred To Contact ANESTHESIOLOGY Diagnoses K59.00 (ICD-10-CM) - Constipation, unspecified constipation type Procedures COMPLETE PACC Cheryl East, DO [address] [place] [address] 1, Pacc [address] [place] [address] Referral ID Status Reason Start Date Expiration Date V isits Requested Visits Authorized [id number] Pending Review 05/13/2022 08/11/2022 1 1 Reason Comments Pre-Op Exam Reason Comments Abdominal Pain Lower abd and right side pain x couple days with emesis Reason Comments Post-op Problem 05/14 had rectal prol apse surgery, complains of lower abd and emesis ongoing since 05/28 Reason Comments Post Op Reason Comments Follow Up Reason Comments Flank Pain Emesis Pt here for R flank pain and emesis since yesterday. Pt states she has a hx of kidney stones. Denies pain or blood with urination. 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 Recently admitted 2 weeks ago for same symptoms. scheduled for GI appt. Reason Comments Abdominal Pain Patient complains of abdominal pain for the past three days. Patient states periods of nausea and vomiting. Has not been able to keep any oral medications down since . Reason Comments Hematemesis Patient states she s tarted vomiting Wednesday evening but today around 6am she started vomiting blood. Patient states she had a conference with her GI physician today and was supposed to get labs completed today at [facility] but the hospital never received the orders. Patient also with complaints of abdominal pain and had coffee ground appearance in her stool yesterday. Reason Comments Abdominal Pain Pt reports emesis si nce Wednesday and then started with RUQ pain onset Wednesday and worsening. She has been taking phenergan and zofran without relief. She states she has not urinated since 1430 yesterday. Reason Comments Flank Pain Right sided- pt was having RUQ pain for approx one week and then this AM pt states around 0245 pain started radiating around to back, she states my kidney feels like it's throbbing . Pt also reports emesis intermittent over past week. Reason Comments Thyroid Problem New Patient: Thyroid Nodule Specialty Diagnoses / Procedures Referred By Lauren t Referred To Contact Otolaryngology Diagnoses Nontoxic single thyroid nodule (CMS/HCC) Procedures [facility] [facility] [employer] Jalyn Holt, DO [address] [place] [address] Phone: tel: fax: Daniel Cuevas, DO [address] [place] [address] Phone: tel: fax: Referral ID Status Reason Start Date Expiration Date Visits Re quested Visits Authorized [id number] Closed 03/20/2024 09/16/2024 1 1 Reason Comments Post-op Reason Onset Date Comments Med Refill 06/16/2023 Reason Comments Port/VAD Care PICC dressing change with flush Reason Comments Port/VAD Care Picc line flush and dressing change Reason Comments Port/VAD Care Picc line dressing c hange and flush INFORMATION SOURCE (unrecogn ized section and content) DATE CREATED AUTHOR 01/28/2019 [facility] DATE CREATED AUTHOR AUTHOR'S ORGANIZ ATION 09/02/2020 [facility] DATE CREATED AUTHOR AUTHOR'S ORGANIZ ATION 10/21/2020 [facility] DATE CREATED AUTHOR AUTHOR'S ORGANIZ ATION 05/23/2021 [facility] DATE CREATED AUTHOR AUTHOR'S ORGANIZ ATION 08/17/2021 [facility] DATE CREATED AUTHOR AUTHOR'S ORGANIZ ATION 10/26/2021 [facility] DATE CREATED AUTHOR AUTHOR'S ORGANIZ ATION 01/17/2022 [facility] DATE CREATED AUTHOR AUTHOR'S ORGANIZ ATION 03/11/2022 [facility] DATE CREATED AUTHOR AUTHOR'S ORGANIZ ATION 09/04/2022 [facility] DATE CREATED AUTHOR AUTHOR'S ORGANIZ ATION 10/06/2022 [facility] DATE CREATED AUTHOR AUTHOR'S ORGANIZ ATION 11/17/2022 [facility] DATE CREATED AUTHOR AUTHOR'S ORGANIZ ATION 06/20/2023 [facility] DATE CREATED AUTHOR AUTHOR'S ORGANIZ ATION 03/11/2024 [facility] DATE CREATED AUTHOR AUTHOR'S ORGANIZ ATION 03/22/2024 [facility] DATE CREATED AUTHOR AUTHOR'S ORGANIZ ATION 09/21/2024 [facility] DATE CREATED AUTHOR AUTHOR'S ORGANIZ ATION 09/25/2024 [facility] DATE CREATED AUTHOR AUTHOR'S ORGANIZ ATION 11/11/2024 [facility] Ordered Prescriptions (unrec ognized section and content) Prescription Sig Dispensed Refills Start Date End Da te polyethylene glycol (GLYCOLAX) 17 g packet Take 17 g by mouth daily 527 g 1 07/23/2020 08/22/2020 lisinopril (PRINIVIL;ZESTRIL) 20 MG tablet Take 1 tablet by mouth 2 times daily 30 tablet 3 07/22/2020 oxyCODONE-acetaminophen (PERCOCET) 5-325 MG per tabletIndications:Non-surg ical abdominal pain Take 1 tablet by mouth every 6 hours as needed for Pain for up to 3 days. 10 tablet 0 07/20/2020 07/20/2020 lactulose encephalopathy (GENERLAC) 10 GM/15ML SOLN solution Take 15 mLs by mouth 2 times daily 150 mL 0 07/20/2020 07/20/2020 promethazine (PHENERGAN) 25 MG tablet Take 1 tablet by mouth every 4 hours as needed for Nausea 30 tablet 0 07/20/2020 07/20/2020 Prescription Sig Dispensed Refills Start Date End Da te fluconazole (DIFLUCAN) 150 MG tablet Take 1 tablet by mouth daily for 3 days 3 tablet 0 12/07/2020 12/10/2020 levoFLOXacin (LEVAQUIN) 500 MG tablet Take 1 tablet by mouth daily for 7 days 7 tablet 0 12/07/2020 12/14/2020 Prescription Sig Dispensed Refills Start Date End Da te sodium polystyrene (SPS) 15 GM/60ML suspension Take 60 mLs by mouth 2 times daily for 2 days 240 mL 0 01/25/2021 01/27/2021 Prescription Sig Dispensed Refills Start Date End Da te promethazine (PHENERGAN) 25 MG tablet Take 1 tablet by mouth 4 times daily as needed for Nausea 32 tablet 0 07/03/2021 07/11/2021 ondansetron (ZOFRAN) 4 MG tablet Take 1 tablet by mouth every 6 hours as needed for Nausea or Vomiting 32 tablet 0 07/03/2021 07/11/2021 Prescription Sig Dispensed Refills Start Date End Da te promethazine (PHENERGAN) 25 MG tablet Take 1 tablet by mouth every 6 hours as needed for Nausea 20 tablet 0 05/28/2022 06/04/2022 Scheduled Active and Recently Administ ered Medications (unrecognized section and content) Medication Order 10/18/2020 10/19/2020 10/20/2020 0.9 % sodium chloride bolus (COMPLETED) 1,000 mL, Intravenous, at 500 mL/hr, Administer over 2 Hours, ONCE, On 10/20/20 at 1515, For 1 dose, For adult patients weighing > 55 kg (120 lbs.) and less than <50 years of age initiate 0.9NS at 500 mL/ hr. All bolus orders are to be given over 10 to 15 minutes 1538 (New Bag - Prov ider: Sabina Ching RN)2005 (Stopped - Provider: Sabina Ching RN) diphenhydrAMINE (BENADRYL) injection 50 mg (COMPLETED) 50 mg, Intravenous, ONCE, On 10/20/20 at 1700, For 1 dose 1706 (Given - Provid er: Sabina Ching RN) morphine (PF) injection 2 mg (COMPLETED) 2 mg, Intravenous, ONCE, On 10/20/20 at 1615, For 1 dose, If oral and IV narcotics ordered, use oral first and only use IV if oral is ineffective or cannot take oral. Do Not give oral and IV within 1 hour of each other unless specifically ordered. 161 (Given - Provid er: Sabina Ching RN) ondansetron (ZOFRAN) injection 4 mg (COMPLETED) 4 mg, Intravenous, ONCE, On 10/20/20 at 1615, For 1 dose 161 (Given - Provid er: Sabina Ching RN) ondansetron (ZOFRAN) injection 4 mg (COMPLETED) 4 mg, Intravenous, ONCE, On 10/20/20 at 1945, For 1 dose 2013 (Given - Provid er: Sabina Ching RN) ondansetron (ZOFRAN) injection 4 mg (COMPLETED) 4 mg, Intravenous, ONCE, On 10/20/20 at 2130, For 1 dose 2144 (Given - Provid er: Sabina Ching RN) pantoprazole (PROTONIX) 80 mg in sodium chloride 0.9 % 50 mL bolus (COMPLETED) 80 mg, Intravenous, at 100 mL/hr, Administer over 30 Minutes, ONCE, On 10/20/20 at 1945, For 1 dose 2004 (New Bag - Prov ider: Sabina Ching RN)2013 (Stopped - Provider: Sabina Ching RN) Continuous Medication Order 10/18/2020 10/19/2020 10/20/2020 pantoprazole (PROTONIX) 80 mg in sodium chloride 0.9 % 100 mL infusion 8 mg/hr (10 mL/hr), Intravenous, at 10 mL/hr, CONTINUOUS, Starting on 10/20/20 at 1945 2012 (New Bag - Prov ider: Sabina Ching RN)2230 (Patient Transferred to Other Facility - Provider: Sabina Ching RN) PRN Medication Order 10/18/2020 10/19/2020 10/20/2020 0.9 % sodium chloride infusion Intravenous, at 240 mL/hr, Administer over 10 Minutes, PRN, blood administration, Starting on 10/20/20 at 1620, For 1 dose, For use in priming line prior to transfusion (prime via gravity) and flush line post transfusion ONLY. Discontinue once line has been cleared of remaining blood product. 2146 (Stopped - Prov ider: Sabina Ching RN) iopamidol (ISOVUE-370) 76 % injection 75 mL (COMPLETED) 75 mL, Intravenous, IMG ONCE PRN, Other, Starting on Wed10/20/20 at 1623, For 1 dose 1632 (Given - Provid er: Marisa Randolph) No Frequency Medication Order 10/18/2020 10/19/2020 10/20/2020 pantoprazole (PROTONIX) 40 MG injection Starting on Wed10/20/20 at 1942, For 1 dose, Sabina Ching: cabinet override 2146 (Canceled Entry - Provider: Sabina Ching RN) sodium chloride 0.9 % infusion Starting on Wed10/20/20 at 1943, For 1 dose, Sabina Ching: cabinet override 194 (Due) Scheduled Medication Order 10/19/2020 10/20/2020 10/21/2020 carvedilol (COREG) tablet 12.5 mg 12.5 mg, Oral, 2 TIMES DAILY WITH MEALS, First dose on Wed10/21/20 at 0800, Administer with food to minimize the risk of orthostatic hypotension 0911 (Not Given - Pr ovider: Adilene Richards RN - Reason: Pt NPO)1700 (Due) hydrOXYzine (ATARAX) tablet 10 mg 10 mg, Oral, DAILY, First dose on Wed10/21/20 at 0900 0911 (Not Given - Pr ovider: Adilene Richards RN - Reason: Pt NPO) hydrOXYzine (ATARAX) tablet 50 mg 50 mg, Oral, NIGHTLY, First dose on Wed10/21/20 at 2100 2100 (Due) insulin lispro (HUMALOG) injection vial 0-3 Units 0-3 Units, Subcutaneous, NIGHTLY, First dose on Wed10/21/20 at 0045, If continuous tube feedings/TPN/NPO, give correction dose based on result, no reduction in dose. If eating or bolus tube feeding: Low Dose Bedtime Correction Algorithm Glucose: Dose: 70-139 No Insulin 140-249 1 Unit 250-349 2 Units 350 and above 3 Units 0107 (Not Given - Pr ovider: Charles Verduzco RN - Reason: Patient/family refused - Comment: Patient has insulin pump)0200 (Held by provider - Provider: SWAPNIL Deng NP - Reason: Other - Comment: Insulin pump)2100 (Automatically Held - Provider: SWAPNIL Deng NP) insulin lispro (HUMALOG) injection vial 0-6 Units 0-6 Units, Subcutaneous, 3 TIMES DAILY WITH MEALS, First dose on Wed10/21/20 at 0800, Low Dose Correction Algorithm Glucose: Dose: 70-139 No Insulin 140-199 1 Unit 200-249 2 Units 250-299 3 Units 300-349 4 Units 350-399 5 Units 400 and above 6 Units 0200 (Held by [facility] er - Provider: SWAPNIL Deng NP - Reason: Other - Comment: Insulin pump)0800 (Automatically Held - Provider: SWAPNIL Deng NP)1200 (Automatically Held - Provider: SWAPNIL Deng NP)1700 (Automatically Held - Provider: SWAPNIL Deng NP) okkcha-oqlwwthh-smxaitt (CREON) delayed release capsule 48,000 Units 48,000 Units, Oral, 3 TIMES DAILY WITH MEALS, First dose on Wed10/21/20 at 0800 0910 (Not Given - Pr ovider: Adilene Richards RN - Reason: Pt NPO)1158 (Not Given - Provider: Adilene Richards RN - Reason: Pt NPO)1700 (Due) lisinopril (PRINIVIL;ZESTRIL) tablet 20 mg 20 mg, Oral, 2 TIMES DAILY, First dose on Wed10/21/20 at 0900 0426 (Held by [facility] - Provider: SWPANIL Deng NP - Reason: Pt NPO)0900 (Automatically Held - Provider: SWAPNIL Deng NP)2100 (Automatically Held - Provider: SWAPNIL Deng NP) morphine (PF) injection 2 mg (COMPLETED) 2 mg, Intravenous, ONCE, On Wed10/21/20 at 0930, For 1 dose, If oral and IV narcotics ordered, use oral first and only use IV if oral is ineffective or cannot take oral. Do Not give oral and IV within 1 hour of each other unless specifically ordered. 0916 (Given - Provid er: Adilene Richards RN) morphine (PF) injection 2 mg (COMPLETED) 2 mg, Intravenous, ONCE, On Wed10/21/20 at 1315, For 1 dose, If oral and IV narcotics ordered, use oral first and only use IV if oral is ineffective or cannot take oral. Do Not give oral and IV within 1 hour of each other unless specifically ordered. 1308 (Given - Provid er: Adilene Richards RN) nalbuphine (NUBAIN) injection 10 mg (COMPLETED) 10 mg, Intravenous, ONCE, On Wed10/21/20 at 0700, For 1 dose 0656 (Given - Provid er: Charles Verduzco RN) NIFEdipine (PROCARDIA XL) extended release tablet 60 mg 60 mg, Oral, DAILY, First dose on Wed10/21/20 at 0900, Do not crush or break. 0911 (Not Given - Pr ovider: Adilene Richards RN - Reason: Pt NPO) pantoprazole (PROTONIX) injection 40 mg(Linked Group 1) 40 mg, Intravenous, EVERY 12 HOURS, First dose on Wed10/21/20 at 0900, Reconstitute with 10 mL 0.9 % sodium chloride and administer over at least 2 minutes. 09 (Given - Provid er: Adilene Richards RN)2100 (Due) QUEtiapine (SEROQUEL) tablet 50 mg 50 mg, Oral, NIGHTLY, First dose on Wed10/21/20 at 2100 2100 (Due) sodium chloride (PF) 0.9 % injection 10 mL(Linked Group 1) 10 mL, Intravenous, EVERY 12 HOURS, First dose on Wed10/21/20 at 0900, Use for IV pantoprazole reconstitution. 916 (Given - Provid er: Adilene Richards RN)2100 (Due) sodium chloride flush 0.9 % injection 5-40 mL 5-40 mL, Intravenous, EVERY 12 HOURS SCHEDULED (2 times per day), First dose on Wed10/21/20 at 0900, For Line Patency: Peripheral IV = 5 mL; Midline or Central Line = 10 mL/lumen. If following IV push medication, administer flush at same rate as the IV push. Flush volume is determined by type of infusion therapy being given. For non-viscous solutions use: Peripheral IV = 5 mL Midline or Central Line = 10 mL/lumen For viscous solutions (i.e. blood components, parenteral nutrition, contrast media, or after obtaining blood sample) use: Peripheral IV = 10 mL Midline or Central Line = 20 mL/lumen 0917 (Not Given - Pr ovider: Adilene Richards RN - Reason: IV Fluid Infusing)2100 (Due) tiZANidine (ZANAFLEX) tablet 8 mg 8 mg, Oral, 2 TIMES DAILY, First dose on Wed10/21/20 at 0900 0911 (Not Given - Pr ovider: Adilene Richards RN - Reason: Pt NPO)2100 (Due) topiramate (TOPAMAX) tablet 50 mg 50 mg, Oral, 2 TIMES DAILY, First dose on Wed10/21/20 at 0900, It is not recommended to crush, break, or chew immediate release tablets due to bitter taste. 0912 (Not Given - Pr ovider: Adilene Richards RN - Reason: Pt NPO)2100 (Due) Continuous Medication Order 10/19/2020 10/20/2020 10/21/2020 0.9 % sodium chloride infusion Intravenous, at 150 mL/hr, CONTINUOUS, Starting on Wed10/21/20 at 0045 0103 (New Bag - Prov ider: Charles Verduzco RN)0724 (New Bag - Provider: Charles Verduzco RN) PRN Medication Order 10/19/2020 10/20/2020 10/21/2020 0.9 % sodium chloride infusion 25 mL, Intravenous, at 100 mL/hr, PRN, If patient receiving piggyback infusions without ordered maintenance IV fluids or with frequent/long duration piggyback infusions, Starting on Wed10/21/20 at 0027, Administer at the same rate as the piggyback being infused. acetaminophen (TYLENOL) suppository 650 mg(Linked Group 2) 650 mg, Rectal, EVERY 6 HOURS PRN, Pain Mild (1-3), Fever, For temp greater than 100.4 F (38 C), Starting on Wed10/21/20 at 0027, Administer if oral route cannot be used. acetaminophen (TYLENOL) tablet 650 mg(Linked Group 2) 650 mg, Oral, EVERY 6 HOURS PRN, Pain Mild (1-3), Fever, For temp greater than 100.4 F (38 C), Starting on Wed10/21/20 at 0027, Maximum dose of acetaminophen is 4000 mg from all sources in 24 hours. albuterol (PROVENTIL) nebulizer solution 2.5 mg 2.5 mg, Nebulization, As Directed - RT (PRN), Wheezing, Starting on Wed10/21/20 at 0027 albuterol sulfate HFA 108 (90 Base) MCG/ACT inhaler 2 puff 2 puff, Inhalation, EVERY 4 HOURS PRN, Wheezing, Starting on Wed10/21/20 at 0153 ALPRAZolam (XANAX) tablet 1 mg 1 mg, Oral, 2 TIMES DAILY PRN, Anxiety, Starting on Wed10/21/20 at 0209 dextrose 5 % solution 100 mL/hr, Intravenous, at 100 mL/hr, PRN, Low blood sugar, Starting on Wed10/21/20 at 0027, Start infusion following administration of dextrose 50% or glucagon. dextrose 50 % IV solution 12.5 g, Intravenous, PRN, Low blood sugar, Blood glucose less than 70 mg/dL and patient NOT ALERT or NPO., Starting on Wed10/21/20 at 0027, If patient does not respond within 5 minutes, repeat dose x1. Start D5W at 100 mL/hour until ordering provider can be reached. Repeat blood glucose in 15 minutes. If blood glucose is less than 70 mg/dL, repeat treatment and recheck blood glucose in 15 minutes x2. If using Glucostabilizer, dose as instructed per system. glucagon (rDNA) injection 1 mg 1 mg, Intramuscular, PRN, Low blood sugar, Blood glucose less than 70 mg/dL and patient NOT ALERT or NPO and does not have IV access., Starting on Wed10/21/20 at 0027, After administration, attempt intravenous access and start D5W at 100 mL/hr. Repeat blood glucose in 15 minutes x2 and notify provider. glucose (GLUTOSE) 40 % oral gel 15 g 15 g, Oral, PRN, Low blood sugar, Starting on Wed10/21/20 at 0027, If blood glucose less than 50 mg/dL and patient ALERT and TOLERATING PO, give 2 tubes glucose gel. If blood glucose less than 70 mg/dL and patient ALERT and TOLERATING PO, give 1 tube glucose gel. Repeat blood glucose in 15 minutes. If blood glucose is less than 70 mg/dL, repeat treatment and recheck blood glucose in 15 minutes x2 and notify provider. heparin flush 100 UNIT/ML injection 500 Units 500 Units, Intracatheter, PRN, Line Care, Starting on Wed10/21/20 at 1429 1436 (Given - Provid er: Adilene Richards RN) rqizqg-izfcuyeu-dxiyfyv (ZENPEP) delayed release capsule 35,000 Units 35,000 Units (rounded from 36,000 Units), Oral, PRN, with snacks or oral medications, Starting on Wed10/21/20 at 0154 montelukast (SINGULAIR) tablet 10 mg 10 mg, Oral, DAILY PRN, allergies, Starting on Wed10/21/20 at 0157 ondansetron (ZOFRAN) injection 4 mg(Linked Group 3) 4 mg, Intravenous, EVERY 6 HOURS PRN, Nausea, Vomiting, Starting on Wed10/21/20 at 0027, Administer if oral route cannot be used. 0432 (Given - Provid er: Charles Verduzco RN)1150 (Given - Provider: Adilene Richards RN) promethazine (PHENERGAN) tablet 12.5 mg(Linked Group 3) 12.5 mg, Oral, EVERY 6 HOURS PRN, Nausea, Vomiting, Starting on Wed10/21/20 at 0027 0432 (See Alternativ e - Provider: Charles Verduzco RN)1150 (See Alternative - Provider: Adilene Richards RN) sodium chloride flush 0.9 % injection 5-40 mL 5-40 mL, Intravenous, PRN, Line Care, After every IV line use, Starting on Wed10/21/20 at 0027, For Line Patency: Peripheral IV = 5 mL; Midline or Central Line = 10 mL/lumen. If following IV push medication, administer flush at same rate as the IV push. Flush volume is determined by type of infusion therapy being given. For non-viscous solutions use: Peripheral IV = 5 mL Midline or Central Line = 10 mL/lumen For viscous solutions (i.e. blood components, parenteral nutrition, contrast media, or after obtaining blood sample) use: Peripheral IV = 10 mL Midline or Central Line = 20 mL/lumen Linked Groups Order Group 1: pantoprazole (PROTONIX) injection 40 mgJump to med 40 mg, Intravenous, EVERY 12 HOURS, First dose on Wed10/21/20 at 0900
Reconstitute with 10 mL 0.9 % sodium chloride and administer over at least 2 minutes.
And sodium chloride (PF) 0.9 % injection 10 mLJump to med 10 mL, Intravenous, EVERY 12 HOURS, First dose on Wed10/21/20 at 0900
Use for IV pantoprazole reconstitution.
Group 2: acetaminophen (TYLENOL) tablet 650 mgJump to med 650 mg, Oral, EVERY 6 HOURS PRN, Pain Mild (1-3), Fever, For temp greater than 100.4 F (38 C), Starting on Wed10/21/20 at 0027
Maximum dose of acetaminophen is 4000 mg from all sources in 24 hours.
Or acetaminophen (TYLENOL) suppository 650 mgJump to med 650 mg, Rectal, EVERY 6 HOURS PRN, Pain Mild (1-3), Fever, For temp greater than 100.4 F (38 C), Starting on Wed10/21/20 at 0027
Administer if oral route cannot be used.
Group 3: promethazine (PHENERGAN) tablet 12.5 mgJump to med 12.5 mg, Oral, EVERY 6 HOURS PRN, Nausea, Vomiting, Starting on Wed10/21/20 at 0027 Or ondansetron (ZOFRAN) injection 4 mgJump to med 4 mg, Intravenous, EVERY 6 HOURS PRN, Nausea, Vomiting, Starting on Wed10/21/20 at 0027
Administer if oral route cannot be used.
Scheduled Medication Order 12/05/2020 12/06/2020 12/07/2020 0.9 % sodium chloride bolus (COMPLETED) 1,000 mL (14.7 mL/kg), Intravenous, at 1,000 mL/hr, Administer over 1 Hours, ONCE, On 12/07/20 at 0100, For 1 dose 0129 (New Bag - Prov ider: Chantell Hightower RN)0600 (Stopped - Provider: Paola Louie RN - Comment: not running upon taking over patient care) cefTRIAXone (ROCEPHIN) injection 1,000 mg (COMPLETED) 1,000 mg, Intramuscular, ONCE, On 12/07/20 at 0915, For 1 dose 0922 (Given - Provid er: Paola Louie RN) dextrose 50 % IV solution (COMPLETED) 25 g, Intravenous, ONCE, On 12/07/20 at 0200, For 1 dose 0335 (Given - Provid er: Chantell Hightower RN) diphenhydrAMINE (BENADRYL) injection 25 mg 25 mg, Intravenous, ONCE, On 12/07/20 at 1045, For 1 dose 1045 (Due) diphenhydrAMINE (BENADRYL) injection 50 mg (COMPLETED) 50 mg, Intravenous, ONCE, On 12/07/20 at 0200, For 1 dose 0334 (Given - Provid er: Chantell Hightower RN) HYDROmorphone (DILAUDID) injection 0.5 mg (COMPLETED) 0.5 mg, Intravenous, ONCE, On 12/07/20 at 0100, For 1 dose 0130 (Given - Provid er: Chantell Hightower RN) HYDROmorphone (DILAUDID) injection 1 mg (COMPLETED) 1 mg, Intravenous, ONCE, On 12/07/20 at 0630, For 1 dose 0707 (Given - Provid er: Paola Louie RN) HYDROmorphone (DILAUDID) injection 1 mg (COMPLETED) 1 mg, Intravenous, ONCE, On 12/07/20 at 1045, For 1 dose, If oral and IV narcotics ordered, use oral first and only use IV if oral is ineffective or cannot take oral. Do Not give oral and IV within 1 hour of each other unless specifically ordered. 1040 (Given - Provid er: Paola Louie RN) HYDROmorphone (DILAUDID) injection 1 mg (COMPLETED) 1 mg, Intravenous, ONCE, On 12/07/20 at 1300, For 1 dose, If oral and IV narcotics ordered, use oral first and only use IV if oral is ineffective or cannot take oral. Do Not give oral and IV within 1 hour of each other unless specifically ordered. 1330 (Given - Provid er: Paola Louie RN) insulin regular (HUMULIN R;NOVOLIN R) injection 10 Units (COMPLETED) 10 Units, Intravenous, ONCE, On 12/07/20 at 0200, For 1 dose 0337 (Given - Provid er: Chantell Hightower RN) ondansetron (ZOFRAN) injection 4 mg (COMPLETED) 4 mg, Intravenous, ONCE, On 12/07/20 at 0100, For 1 dose 0129 (Given - Provid er: Chantell Hightower RN) ondansetron (ZOFRAN) injection 4 mg (COMPLETED) 4 mg, Intravenous, ONCE, On 12/07/20 at 0615, For 1 dose 0705 (Given - Provid er: Paola Louie RN) ondansetron (ZOFRAN) injection 4 mg (COMPLETED) 4 mg, Intravenous, ONCE, On 12/07/20 at 1300, For 1 dose 1329 (Given - Provid er: Paola Louie RN) pantoprazole (PROTONIX) 80 mg in sodium chloride 0.9 % 50 mL bolus (COMPLETED) 80 mg, Intravenous, at 100 mL/hr, Administer over 30 Minutes, ONCE, On 12/07/20 at 0100, For 1 dose 0130 (New Bag - Prov ider: Chantell Hightower RN)0600 (Stopped - Provider: Paola Louie RN - Comment: not infusing upon assuming pt care) sodium bicarbonate 8.4 % injection 50 mEq (COMPLETED) 50 mEq, Intravenous, ONCE, On 12/07/20 at 0200, For 1 dose 0335 (Given - Provid er: Chantell Hightower RN) PRN Medication Order 12/05/2020 12/06/2020 12/07/2020 0.9 % sodium chloride infusion Intravenous, at 240 mL/hr, Administer over 10 Minutes, PRN, blood administration, Starting on 12/07/20 at 0121, For 1 dose, For use in priming line prior to transfusion (prime via gravity) and flush line post transfusion ONLY. Discontinue once line has been cleared of remaining blood product. 0.9 % sodium chloride infusion Intravenous, at 240 mL/hr, Administer over 10 Minutes, PRN, blood administration, Starting on 12/07/20 at 0153, For 1 dose, For use in priming line prior to transfusion (prime via gravity) and flush line post transfusion ONLY. Discontinue once line has been cleared of remaining blood product. Scheduled Medication Order 01/23/2021 01/24/2021 01/25/2021 0.9 % sodium chloride bolus (COMPLETED) 1,000 mL, Intravenous, at 1,000 mL/hr, Administer over 1 Hours, ONCE, On 01/25/21 at 1330, For 1 dose 1409 (New Bag - Prov ider: Eden Salguero RN)1538 (Stopped - Provider: Letty Donnelly RN - Comment: Not infusing when RN administered Morphine an Zofran) calcium gluconate 1,000 mg in dextrose 5 % 100 mL IVPB (COMPLETED) 1,000 mg, Intravenous, ONCE, 1 dose, On 01/25/21 at 1630, Give 1 g over 60 min; 2 g over 120 min; 3 g over 180 min; 4 g over 240 min 1649 (New Bag - Prov ider: Judy Mendieta RN)1749 (Stopped - Provider: Judy Mendieta RN) dextrose 50 % IV solution (COMPLETED) 25 g, Intravenous, ONCE, On 01/25/21 at 1630, For 1 dose 1650 (Given - Provid er: Judy Mendieta RN) famotidine (PEPCID) injection 20 mg (COMPLETED) 20 mg, Intravenous, ONCE, On 01/25/21 at 1330, For 1 dose, Administer over 2 minutes. 1408 (Given - Provid er: Eden Salguero RN) HYDROmorphone (DILAUDID) injection 1 mg (COMPLETED) 1 mg, Intramuscular, ONCE, On 01/25/21 at 1745, For 1 dose, If oral and IV narcotics ordered, use oral first and only use IV if oral is ineffective or cannot take oral. Do Not give oral and IV within 1 hour of each other unless specifically ordered. 180 (Given - Provid er: Judy Mendieta RN) insulin regular (HUMULIN R;NOVOLIN R) injection 10 Units (COMPLETED) 10 Units, Intravenous, ONCE, On 01/25/21 at 1630, For 1 dose 164 (Given - Provid er: Judy Mendieta RN) metoclopramide (REGLAN) injection 5 mg 5 mg, Intravenous, ONCE, On 01/25/21 at 1745, For 1 dose 181 (Not Given - Pr ovider: Judy Mendieta RN - Reason: Patient/family refused) morphine (PF) injection 2 mg (COMPLETED) 2 mg, Intravenous, ONCE, On 01/25/21 at 1830, For 1 dose, If oral and IV narcotics ordered, use oral first and only use IV if oral is ineffective or cannot take oral. Do Not give oral and IV within 1 hour of each other unless specifically ordered. 1903 (Given - Provid er: Judy Mendieta RN) morphine injection 4 mg (COMPLETED) 4 mg, Intravenous, ONCE, On 01/25/21 at 1530, For 1 dose, If oral and IV narcotics ordered, use oral first and only use IV if oral is ineffective or cannot take oral. Do Not give oral and IV within 1 hour of each other unless specifically ordered. 1536 (Given - Provid er: Letty Donnelly RN) ondansetron (ZOFRAN) injection 4 mg (COMPLETED) 4 mg, Intravenous, ONCE, On 01/25/21 at 1330, For 1 dose 1409 (Given - Provid er: Eden Salguero RN) ondansetron (ZOFRAN) injection 4 mg (COMPLETED) 4 mg, Intravenous, ONCE, On 01/25/21 at 1530, For 1 dose 1534 (Given - Provid er: Letty Donnelly RN) Continuous Medication Order 01/23/2021 01/24/2021 01/25/2021 0.9 % sodium chloride infusion 1,000 mL, Intravenous, at 125 mL/hr, Administer over 8 Hours, CONTINUOUS, Starting on 01/25/21 at 1630 1649 (New Bag - Prov ider: Judy Mendieta RN)2009 (Stopped - Provider: Judy Mendieta RN) PRN Medication Order 01/23/2021 01/24/2021 01/25/2021 heparin flush 100 UNIT/ML injection 100 Units 100 Units, Intracatheter, PRN, Line Care, Starting on 01/25/21 at 2009 2018 (Given - Provid er: Judy Mendieta RN) Scheduled Medication Order 01/25/2021 01/26/2021 01/27/2021 0.9 % sodium chloride bolus (COMPLETED) 500 mL, Intravenous, at 500 mL/hr, Administer over 1 Hours, ONCE, On 01/27/21 at 0145, For 1 dose 0302 (New Bag - Prov ider: Marilia Solomon RN)0408 (Stopped - Provider: Marilia Solomon RN)1203 (Stopped - Provider: Cash Claudio RN) diphenhydrAMINE (BENADRYL) injection 25 mg (COMPLETED) 25 mg, Intravenous, ONCE, On Wed01/27/21 at 0745, For 1 dose 0743 (Given - Provid er: Paola Louie RN) diphenhydrAMINE (BENADRYL) injection 50 mg (COMPLETED) 50 mg, Intravenous, ONCE, On Wed01/27/21 at 0430, For 1 dose 0423 (Given - Provid er: Marilia Solomon RN) heparin flush 100 UNIT/ML injection 100 Units (COMPLETED) 100 Units, Intracatheter, ONCE, On Wed01/27/21 at 1200, For 1 dose 1154 (Given - Provid er: Cash Claudio RN) HYDROmorphone (DILAUDID) injection 1 mg (COMPLETED) 1 mg, Intravenous, ONCE, On Wed01/27/21 at 0415, For 1 dose, If oral and IV narcotics ordered, use oral first and only use IV if oral is ineffective or cannot take oral. Do Not give oral and IV within 1 hour of each other unless specifically ordered. 0414 (Given - Provid er: Marilia Solomon RN) HYDROmorphone (DILAUDID) injection 1 mg (COMPLETED) 1 mg, Intravenous, ONCE, On Wed01/27/21 at 0730, For 1 dose, If oral and IV narcotics ordered, use oral first and only use IV if oral is ineffective or cannot take oral. Do Not give oral and IV within 1 hour of each other unless specifically ordered. 0733 (Given - Provid er: Paola Louie RN) HYDROmorphone (DILAUDID) injection 1 mg (COMPLETED) 1 mg, Intravenous, ONCE, On Wed01/27/21 at 1100, For 1 dose, If oral and IV narcotics ordered, use oral first and only use IV if oral is ineffective or cannot take oral. Do Not give oral and IV within 1 hour of each other unless specifically ordered. 1101 (Given - Provid er: Letty Goodwin RN) LORazepam (ATIVAN) injection 1 mg (COMPLETED) 1 mg, Intravenous, ONCE, On Wed01/27/21 at 0345, For 1 dose 0401 (Given - Provid er: John Morris RN) ondansetron (ZOFRAN) injection 4 mg (COMPLETED) 4 mg, Intravenous, ONCE, On Wed01/27/21 at 1100, For 1 dose 1101 (Given - Provid er: Letty Goodwin RN) pantoprazole (PROTONIX) 80 mg in sodium chloride 0.9 % 50 mL bolus (COMPLETED) 80 mg, Intravenous, at 100 mL/hr, Administer over 30 Minutes, ONCE, On Wed01/27/21 at 0230, For 1 dose 0301 (New Bag - Prov ider: Marilia Solomon RN)0407 (Stopped - Provider: Marilia Solomon RN) PRN Medication Order 01/25/2021 01/26/2021 01/27/2021 0.9 % sodium chloride infusion Intravenous, at 240 mL/hr, Administer over 10 Minutes, PRN, blood administration, Starting on Wed01/27/21 at 0216, For 1 dose, For use in priming line prior to transfusion (prime via gravity) and flush line post transfusion ONLY. Discontinue once line has been cleared of remaining blood product. No Frequency Medication Order 01/25/2021 01/26/2021 01/27/2021 pantoprazole (PROTONIX) 40 MG injection Starting on Wed01/27/21 at 0252, For 1 dose, Marilia Solomon: elianeinesamara override 0300 (Due) sodium chloride 0.9 % infusion Starting on Wed01/27/21 at 0252, For 1 dose, Marilia Solomon: cabinet override 0300 (Due) Scheduled Medication Order 01/27/2021 01/28/2021 01/29/2021 heparin flush 100 UNIT/ML injection 100 Units (COMPLETED) 100 Units, Intracatheter, ONCE, On Wed01/29/21 at 2115, For 1 dose 211 (Given - Provid er: Cash Claudio RN) HYDROmorphone (DILAUDID) injection 2 mg (COMPLETED) 2 mg, IntraVENous, ONCE, On Wed01/29/21 at 2030, For 1 dose, If oral and IV narcotics ordered, use oral first and only use IV if oral is ineffective or cannot take oral. Do Not give oral and IV within 1 hour of each other unless specifically ordered. 2022 (Given - Provid er: Cash Claudio RN) Ketamine (KETALAR) injection syringe 10 mg (COMPLETED) 10 mg, IntraVENous, ONCE, On Wed01/29/21 at 1745, For 1 dose 183 (Given - Provid er: Cash Claudio RN - Comment: Judy MEJÍA witnessed waste) oxyCODONE-acetaminophen (PERCOCET) 5-325 MG per tablet 2 tablet 2 tablet, Oral, ONCE, On Wed01/29/21 at 2000, For 1 dose, Maximum dose of acetaminophen is 4000 mg from all sources in 24 hours. 2011 (Not Given - Pr ovider: Cash Claudio RN - Reason: Nausea - Comment: pt threw pills up) pantoprazole (PROTONIX) 80 mg in sodium chloride 0.9 % 50 mL bolus (COMPLETED) 80 mg, IntraVENous, at 100 mL/hr, Administer over 30 Minutes, ONCE, On Wed01/29/21 at 1745, For 1 dose 1900 (New Bag - Prov ider: Cash Claudio RN)1932 (Stopped - Provider: Cash Claudio RN) promethazine (PHENERGAN) injection 12.5 mg (COMPLETED) 12.5 mg, IntraVENous, ONCE, On Wed01/29/21 at 2030, For 1 dose, Recommended route is IM. For IV administration, dilute to 10ml with normal saline. Must be administered over at least 10 minutes. 2021 (Given - Provid er: Cash Claudio RN) promethazine (PHENERGAN) injection 25 mg (COMPLETED) 25 mg, Intramuscular, ONCE, On Wed01/29/21 at 1845, For 1 dose, Recommended route is IM. For IV administration, dilute to 10ml with normal saline. Must be administered over at least 10 minutes. 1858 (Given - Provid er: Cash Claudio RN) promethazine (PHENERGAN) tablet 25 mg 25 mg, Oral, ONCE, On Wed01/29/21 at 2000, For 1 dose 2011 (Not Given - Pr ovider: Cash Claudio RN - Reason: Nausea - Comment: pt threw pill up) No Frequency Medication Order 01/27/2021 01/28/2021 01/29/2021 pantoprazole (PROTONIX) 40 MG injection Starting on Wed01/29/21 at 1853, For 1 dose, Judy Mendieta: cabinet override 1913 (Not Given - Pr ovider: Cash Claudio RN - Reason: Other) sodium chloride 0.9 % infusion (COMPLETED) Starting on Wed01/29/21 at 1854, For 1 dose, Judy Mendieta: cabinet override 1914 (New Bag - Prov ider: Cash Claudio RN)2130 (Stopped - Provider: Marilia Araya RN) Scheduled Medication Order 07/01/2021 07/02/2021 07/03/2021 carvedilol (COREG) tablet 25 mg 25 mg, Oral, 2 TIMES DAILY WITH MEALS, First dose (after last modification) on Wed07/02/21 at 0800, Administer with food to minimize the risk of orthostatic hypotension 0834 (Not Given - Provider: Em Magana RN - Reason: Patient/family refused - Comment: pt refusing PO meds d/t N/V)1700 (Not Given - Provider: Em Magana RN - Reason: Patient/family refused - Comment: pt refusing PO meds d/t N/V) 0905 (Given - Provider: Evette Baron RN)1700 (Due) cloNIDine (CATAPRES) 0.3 MG/24HR 1 patch 1 patch, TransDERmal, Administer over 7 Days, WEEKLY, First dose on Wed07/01/21 at 1630, Apply to a clean, hairless area of the upper outer arm or chest. Rotate patch s 1630 (Not Given - Provider: Em Magana RN - Reason: Patient took at home - Comment: new patch applied at home today, before admission) diphenhydrAMINE (BENADRYL) injection 25 mg (COMPLETED) 25 mg, IntraVENous, ONCE, On Rani 07/03/21 at 0800, For 1 dose, Prior to blood admin 0742 (Given - Provider: Evette Baron RN) HYDROmorphone (DILAUDID) injection 3 mg (COMPLETED) 3 mg, IntraVENous, ONCE, On Wed07/01/21 at 1900, For 1 dose, If oral and IV narcotics ordered, use oral first and only use IV if oral is ineffective or cannot take oral. Do Not give oral and IV within 1 hour of each other unless specifically ordered. 1840 (Given - Provider: Em Magana RN) HYDROmorphone (DILAUDID) injection 3 mg 3 mg, IntraVENous, EVERY 4 HOURS, First dose (after last reorder) on Wed07/02/21 at 0930, If oral and IV narcotics ordered, use oral first and only use IV if oral is ineffective or cannot take oral. Do Not give oral and IV within 1 hour of each other unless specifically ordered. 0936 (Given - Provider: Em Magana RN)1338 (Given - Provider: Em Magana, ALFONZO)1751 (Given - Provider: Em Magana RN)2127 (Given - Provider: Bushra Gray RN) 0134 (Given - Provider: Bushra Gray RN)0534 (Given - Provider: Bushra Gray, ALFONZO)0904 (Given - Provider: Evette Baron RN)1325 (Given - Provider: Evette Baron RN)1730 (Due)2130 (Due) iron sucrose (VENOFER) injection 100 mg (COMPLETED) 100 mg, IntraVENous, ONCE, On Wed07/02/21 at 0700, For 1 dose, May administer doses less than or equal to 200 mg undiluted by slow IV injection over 2 to 5 minutes. When administering to hemodialysis patients, give within the first hour of the session. 0752 (Given - Provider: Em Magana RN) bxzdrk-wciqvudx-jzxeuim (ZENPEP) delayed release capsule 50,000 Units 50,000 Units (rounded from 48,000 Units), Oral, 3 TIMES DAILY WITH MEALS, First dose on Wed07/01/21 at 1700 1700 (Not Given - Provider: Em Magana RN - Reason: Patient/family refused - Comment: pt states she cannot take anything by mouth at this time d/t N/V) 0801 (Not Given - Provider: Em Magana RN - Reason: Patient/family refused - Comment: pt not eating d/t n/v)1230 (Not Given - Provider: Em Magana RN - Reason: Patient/family refused - Comment: pt not eating d/t N/V)1700 (Not Given - Provider: Em Magana RN - Reason: Patient/family refused - Comment: pt refusing PO meds d/t N/V) 0942 (Not Given - Provider: Evette Baron RN - Reason: Patient/family refused - Comment: Per Pt. does not take due to not eating solid food.)1132 (Not Given - Provider: Evette Baron RN - Reason: Patient/family refused)1700 (Due) lisinopril (PRINIVIL;ZESTRIL) tablet 20 mg 20 mg, Oral, 2 TIMES DAILY, First dose on Wed07/01/21 at 1800 1809 (Not Given - Provider: Em Magana RN - Reason: Patient/family refused - Comment: pt states she cannot take anything by mouth at this time d/t N/V) 0943 (Not Given - Provider: Em Magana RN - Reason: Patient/family refused - Comment: pt not able to take PO meds d/t N/V)1820 (Not Given - Provider: Em Magana RN - Reason: Patient/family refused - Comment: pt refusing PO meds d/t N/V) 0905 (Given - Provider: Evette Baron RN)1800 (Due) losartan-hydroCHLOROthia zide (HYZAAR) 50-12.5 MG per tablet 1 tablet 1 tablet, Oral, DAILY, First dose on Wed07/01/21 at 1630 1630 (Not Given - Provider: Em Magana RN - Reason: Patient took at home) 0944 (Not Given - Provider: Em Magana RN - Reason: Patient/family refused - Comment: pt not able to take PO meds d/t N/V) 0905 (Given - Provider: Evette Baron RN) montelukast (SINGULAIR) tablet 10 mg 10 mg, Oral, NIGHTLY, First dose on Wed07/01/21 at 2100 2148 (Not Given - Provider: Bushra Gray RN - Reason: Patient/family refused) 2035 (Not Given - Provider: Bushra Gray RN - Reason: Patient/family refused) 2100 (Due) pantoprazole (PROTONIX) injection 40 mg(Linked Group 1) 40 mg, IntraVENous, DAILY, First dose on Rani 07/03/21 at 0900, Reconstitute with 10 mL 0.9 % sodium chloride and administer over at least 2 minutes. 904 (Given - Provider: Evette Baron RN) sodium chloride (PF) 0.9 % injection 10 mL(Linked Group 1) 10 mL, IntraVENous, DAILY, First dose on Rani 07/03/21 at 0900, Use for IV pantoprazole reconstitution. 905 (Given - Provider: Evette Baron RN) sodium chloride flush 0.9 % injection 5-40 mL 5-40 mL, IntraVENous, EVERY 12 HOURS SCHEDULED (2 times per day), First dose on Wed07/01/21 at 2100, For Line Patency: Peripheral IV = 5 mL; Midline or Central Line = 10 mL/lumen. If following IV push medication, administer flush at same rate as the IV push. Flush volume is determined by type of infusion therapy being given. For non-viscous solutions use: Peripheral IV = 5 mL Midline or Central Line = 10 mL/lumen For viscous solutions (i.e. blood components, parenteral nutrition, contrast media, or after obtaining blood sample) use: Peripheral IV = 10 mL Midline or Central Line = 20 mL/lumen 2142 (Not Given - Provider: Bushra Gray RN - Reason: IV Fluid Infusing) 0944 (Not Given - Provider: Em Magana RN - Reason: IV Fluid Infusing)2033 (Not Given - Provider: Bushra Gray RN - Reason: IV Fluid Infusing) 0942 (Not Given - Provider: Evette Baron RN - Reason: IV Fluid Infusing)2099 (Due) tiZANidine (ZANAFLEX) tablet 8 mg 8 mg, Oral, 2 TIMES DAILY, First dose on Wed07/01/21 at 2100 2147 (Not Given - Provider: Bushra Gray RN - Reason: Patient/family refused) 0945 (Not Given - Provider: Em Magana RN - Reason: Patient/family refused - Comment: pt not able to take PO meds d/t N/V)2034 (Not Given - Provider: Bushra Gray RN - Reason: Patient/family refused) 09 (Given - Provider: Evette Baron RN)2100 (Due) Continuous Medication Order 07/01/2021 07/02/2021 07/03/2021 0.9 % sodium chloride infusion IntraVENous, at 75 mL/hr, CONTINUOUS, Starting on Wed07/01/21 at 1630 1700 (New Bag - Provider: Em Magana, RN) 0743 (New Bag - Provider: Em Magana, RN)2126 (New Bag - Provider: Bushra Gray RN) PRN Medication Order 07/01/2021 07/02/2021 07/03/2021 0.9 % sodium chloride infusion 25 mL, IntraVENous, at 100 mL/hr, PRN, If patient receiving piggyback infusions without ordered maintenance IV fluids or with frequent/long duration piggyback infusions, Starting on Wed07/01/21 at 1602, Administer at the same rate as the piggyback being infused. 0.9 % sodium chloride infusion IntraVENous, at 240 mL/hr, Administer over 10 Minutes, PRN, blood administration, Starting on Rani 07/03/21 at 0539, For 1 dose, For use in priming line prior to transfusion (prime via gravity) and flush line post transfusion ONLY. Discontinue once line has been cleared of remaining blood product. 0.9 % sodium chloride infusion IntraVENous, at 240 mL/hr, Administer over 10 Minutes, PRN, blood administration, Starting on Arni 07/03/21 at 0633, For 1 dose, For use in priming line prior to transfusion (prime via gravity) and flush line post transfusion ONLY. Discontinue once line has been cleared of remaining blood product. acetaminophen (TYLENOL) suppository 650 mg(Linked Group 2) 650 mg, Rectal, EVERY 6 HOURS PRN, Pain Mild (1-3), Fever, For temp greater than 100.4 F (38 C), Starting on Wed07/01/21 at 1602, Administer if oral route cannot be used. acetaminophen (TYLENOL) tablet 650 mg(Linked Group 2) 650 mg, Oral, EVERY 6 HOURS PRN, Pain Mild (1-3), Fever, For temp greater than 100.4 F (38 C), Starting on Wed07/01/21 at 1602, Maximum dose of acetaminophen is 4000 mg from all sources in 24 hours. albuterol sulfate HFA 108 (90 Base) MCG/ACT inhaler 2 puff 2 puff, Inhalation, EVERY 4 HOURS PRN, Wheezing, Starting on Wed07/01/21 at 1558 ALPRAZolam (XANAX) tablet 1 mg 1 mg, Oral, 4 TIMES DAILY PRN, Anxiety, Sleep, Starting on Wed07/01/21 at 1558 heparin flush (PF) 10 UNIT/ML injection 30 Units 30 Units (3 mL), IntraVENous, PRN, Line Care, Starting on Rani 07/03/21 at 1501 1526 (Given - Provider: Evette Baron RN) HYDROmorphone (DILAUDID) injection 3 mg (CANCELED) 3 mg, IntraVENous, EVERY 4 HOURS PRN, Pain Severe (7-10), Give oral dose first, if not tolerated then give IV dose 3mg every 4 hrs PRN., Starting on Wed07/01/21 at 2216, If oral and IV narcotics ordered, use oral first and only use IV if oral is ineffective or cannot take oral. Do Not give oral and IV within 1 hour of each other unless specifically ordered. 2229 (Given - Provider: Bushra Gray RN) 0505 (Given - Provider: Bushra Gray RN) HYDROmorphone (DILAUDID) tablet 2 mg 2 mg, Oral, EVERY 1 HOUR PRN, Pain Mild (1-3), Pain Moderate (4-6), Starting on Wed07/01/21 at 1832 2159 (Given - Provider: Bushra Gray RN) mnmbmz-uuvlfbsi-xjazkth (ZENPEP) delayed release capsule 35,000 Units 35,000 Units (rounded from 36,000 Units), Oral, PRN, with snacks or oral medications, Starting on Wed07/01/21 at 1558 LORazepam (ATIVAN) tablet 1 mg 1 mg, Oral, EVERY 4 HOURS PRN, Anxiety, Starting on Wed07/01/21 at 1601 ondansetron (ZOFRAN) injection 4 mg 4 mg, IntraVENous, EVERY 6 HOURS PRN, Nausea, Vomiting, Starting on Wed07/01/21 at 1604 2159 (Given - Provider: Bushra Gray RN) 0743 (Given - Provider: Em Magana RN) ondansetron (ZOFRAN) injection 4 mg 4 mg, IntraVENous, EVERY 6 HOURS PRN, Nausea, Vomiting, Starting on Wed07/01/21 at 1830 promethazine (PHENERGAN) injection 25 mg 25 mg, IntraVENous, EVERY 4 HOURS PRN, Nausea, Vomiting, Starting on Wed07/01/21 at 1827, Recommended route is IM. For IV administration, dilute to 10ml with normal saline. Must be administered over at least 10 minutes. 1845 (Given - Provider: Em Magana RN) 0505 (Given - Provider: Bushra Gray RN)0936 (Given - Provider: Em Maagna RN)1339 (Given - Provider: Em Magana RN)1751 (Given - Provider: Em Magana RN)2127 (Given - Provider: Bushra Gray RN) 0134 (Given - Provider: Bushra Gray RN) sodium chloride flush 0.9 % injection 5-40 mL 5-40 mL, IntraVENous, PRN, Line Care, After every IV line use, Starting on Wed07/01/21 at 1602, For Line Patency: Peripheral IV = 5 mL; Midline or Central Line = 10 mL/lumen. If following IV push medication, administer flush at same rate as the IV push. Flush volume is determined by type of infusion therapy being given. For non-viscous solutions use: Peripheral IV = 5 mL Midline or Central Line = 10 mL/lumen For viscous solutions (i.e. blood components, parenteral nutrition, contrast media, or after obtaining blood sample) use: Peripheral IV = 10 mL Midline or Central Line = 20 mL/lumen sodium chloride flush 0.9 % injection 5-40 mL 5-40 mL, IntraVENous, PRN, Line Care, Starting on Wed07/03/21 at 0541, For Line Patency: Peripheral IV = 5 mL; Midline or Central Line = 10 mL/lumen. If following IV push medication, administer flush at same rate as the IV push. Flush volume is determined by type of infusion therapy being given. For non-viscous solutions use: Peripheral IV = 5 mL Midline or Central Line = 10 mL/lumen For viscous solutions (i.e. blood components, parenteral nutrition, contrast media, or after obtaining blood sample) use: Peripheral IV = 10 mL Midline or Central Line = 20 mL/lumen zolpidem (AMBIEN) tablet 5 mg 5 mg, Oral, NIGHTLY PRN, Sleep, May repeat in 1/2 hour if not asleep, Starting on Wed07/01/21 at 2100 Linked Groups Order Group 1: pantoprazole (PROTONIX) injection 40 mgJump to med 40 mg, IntraVENous, DAILY, First dose on Wed07/03/21 at 0900
Reconstitute with 10 mL 0.9 % sodium chloride and administer over at least 2 minutes.
And sodium chloride (PF) 0.9 % injection 10 mLJump to med 10 mL, IntraVENous, DAILY, First dose on Wed07/03/21 at 0900
Use for IV pantoprazole reconstitution.
Group 2: acetaminophen (TYLENOL) tablet 650 mgJump to med 650 mg, Oral, EVERY 6 HOURS PRN, Pain Mild (1-3), Fever, For temp greater than 100.4 F (38 C), Starting on Wed07/01/21 at 1602
Maximum dose of acetaminophen is 4000 mg from all sources in 24 hours.
Or acetaminophen (TYLENOL) suppository 650 mgJump to med 650 mg, Rectal, EVERY 6 HOURS PRN, Pain Mild (1-3), Fever, For temp greater than 100.4 F (38 C), Starting on Wed07/01/21 at 1602
Administer if oral route cannot be used.
Scheduled Medication Order 03/22/2022 03/23/2022 03/24/2022 dexamethasone (DECADRON) injection 4 mg (COMPLETED) 4 mg, IntraVENous, ONCE, On Wed03/24/22 at 0000, For 1 dose 0021 (Given - Provid er: Erendira Barron RN) lactated ringers bolus (COMPLETED) 1,000 mL, IntraVENous, at 495.9 mL/hr, Administer over 121 Minutes, ONCE, On Wed03/23/22 at 2315, For 1 dose 2336 (New Bag - Provider: Erendira Barron RN) 0142 (Stopped - Provider: Erendira Barron RN) lidocaine PF 2 % injection 5 mL (COMPLETED) 5 mL, Other, ONCE, 1 dose, On Wed03/24/22 at 0100 0141 (Given - Provid er: Erendira Barron RN) LORazepam (ATIVAN) injection 1 mg (COMPLETED) 1 mg, IntraVENous, ONCE, 1 dose, On Wed03/23/22 at 2315 2334 (Given - Provider: Erendira Barron RN) magnesium sulfate 1000 mg in dextrose 5% 100 mL IVPB (COMPLETED) 1,000 mg, IntraVENous, at 100 mL/hr, Administer over 1 Hours, ONCE, On Wed03/24/22 at 0000, For 1 dose, Recommended infusion rate not to exceed 1,000 mg (milligrams) per hour. 0024 (New Bag - Provider: Erendira Barron RN)0142 (Stopped - Provider: Brittanie Burkett RN) prochlorperazine (COMPAZINE) injection 10 mg (COMPLETED) 10 mg, IntraVENous, ONCE, 1 dose, On Wed03/23/22 at 2315 2326 (Given - Provider: Erendira Barron RN) Scheduled Medication Order 04/11/2022 04/12/2022 04/13/2022 0.9 % sodium chloride bolus (COMPLETED) 500 mL (7.35 mL/kg), IntraVENous, at 247.9 mL/hr, Administer over 121 Minutes, ONCE, On Wed04/13/22 at 1045, For 1 dose 1135 (New Bag - Prov ider: Dinah Markham RN)1400 (Stopped - Provider: Fern Price RN) fentaNYL (SUBLIMAZE) injection 25 mcg (COMPLETED) 25 mcg, IntraVENous, ONCE, 1 dose, On Wed04/13/22 at 1300, If oral and IV narcotics ordered, use oral first and only use IV if oral is ineffective or cannot take oral. Do Not give oral and IV within 1 hour of each other unless specifically ordered. 1304 (Given - Provid er: Dinah Markham RN) fentaNYL (SUBLIMAZE) injection 50 mcg (COMPLETED) 50 mcg, IntraVENous, ONCE, 1 dose, On Wed04/13/22 at 1045, If oral and IV narcotics ordered, use oral first and only use IV if oral is ineffective or cannot take oral. Do Not give oral and IV within 1 hour of each other unless specifically ordered. 1137 (Given - Provid er: Dinah Markham RN) labetalol (NORMODYNE;TRANDATE) injection 10 mg (COMPLETED) 10 mg, IntraVENous, ONCE, 1 dose, On Wed04/13/22 at 1400 1358 (Given - Provid er: Dinah Markham RN) ondansetron (ZOFRAN) injection 4 mg (COMPLETED) 4 mg, IntraVENous, ONCE, 1 dose, On Wed04/13/22 at 1045 1137 (Given - Provid er: Dinah Markham RN) Scheduled Medication Order 05/26/2022 05/27/2022 05/28/2022 0.9 % sodium chloride bolus (COMPLETED) 1,000 mL (15.2 mL/kg), IntraVENous, at 495.9 mL/hr, Administer over 121 Minutes, ONCE, On Rani 05/28/22 at 0945, For 1 dose, For adult patients weighing > 55 kg (120 lbs.) and less than <50 years of age initiate 0.9NS at 500 mL/ hr. All bolus orders are to be given over 10 to 15 minutes 1000 (New Bag - Prov ider: Dinah Markham RN)1230 (Stopped - Provider: Dinah Markham RN) morphine (PF) injection 2 mg (COMPLETED) 2 mg, IntraVENous, ONCE, 1 dose, On Rani 05/28/22 at 0945, If oral and IV narcotics ordered, use oral first and only use IV if oral is ineffective or cannot take oral. Do Not give oral and IV within 1 hour of each other unless specifically ordered. 1005 (Given - Provid er: Dinah Markham RN) morphine (PF) injection 2 mg (COMPLETED) 2 mg, IntraVENous, ONCE, 1 dose, On Rani 05/28/22 at 1200, If oral and IV narcotics ordered, use oral first and only use IV if oral is ineffective or cannot take oral. Do Not give oral and IV within 1 hour of each other unless specifically ordered. 1151 (Given - Provid er: Dinah Markham RN) morphine (PF) injection 2 mg (COMPLETED) 2 mg, IntraVENous, ONCE, 1 dose, On Rani 05/28/22 at 1445, If oral and IV narcotics ordered, use oral first and only use IV if oral is ineffective or cannot take oral. Do Not give oral and IV within 1 hour of each other unless specifically ordered. 1441 (Given - Provid er: Patti Dunn RN) ondansetron (ZOFRAN) injection 4 mg (COMPLETED) 4 mg, IntraVENous, ONCE, 1 dose, On Rani 05/28/22 at 0945 1006 (Given - Provid er: Dinah Markham RN) pantoprazole (PROTONIX) tablet 40 mg (COMPLETED) 40 mg, Oral, ONCE, 1 dose, On Rani 05/28/22 at 0945, Do not crush or break. 1006 (Given - Provid er: Dinah Markham RN) PRN Medication Order 05/26/2022 05/27/2022 05/28/2022 iopamidol (ISOVUE-370) 76 % injection 75 mL (COMPLETED) 75 mL, IntraVENous, IMG ONCE PRN, 1 dose, Starting on Rani 05/28/22 at 1315, Until Rani 05/28/22 at 1324, Other 1324 (Given - Provid er: Tereza Chand) Scheduled Medication Order 05/29/2022 05/30/2022 05/31/2022 HYDROmorphone (DILAUDID) injection 0.25 mg (COMPLETED) HYDROmorphone (DILAUDID) 1.5mg IV is equivalent to morphine 10mg IV, 0.25 mg, IntraVENous, ONCE, 1 dose, On 05/31/22 at 1800, If oral and IV narcotics ordered, use oral first and only use IV if oral is ineffective or cannot take oral. Do Not give oral and IV within 1 hour of each other unless specifically ordered. 181 (Given - Provid er: Judy Geiger RN) HYDROmorphone (DILAUDID) injection 0.5 mg (COMPLETED) HYDROmorphone (DILAUDID) 1.5mg IV is equivalent to morphine 10mg IV, 0.5 mg, IntraVENous, ONCE, 1 dose, On 05/31/22 at 1715, If oral and IV narcotics ordered, use oral first and only use IV if oral is ineffective or cannot take oral. Do Not give oral and IV within 1 hour of each other unless specifically ordered. 1726 (Given - Provid er: Cash Claudio RN) lactated ringers bolus (COMPLETED) 1,000 mL, IntraVENous, at 983.6 mL/hr, Administer over 61 Minutes, ONCE, On 05/31/22 at 1715, For 1 dose 172 (New Bag - Prov ider: Cash Claudio RN)184 (Stopped - Provider: Judy Geiger RN) ondansetron (ZOFRAN) injection 4 mg (COMPLETED) 4 mg, IntraVENous, ONCE, 1 dose, On 05/31/22 at 1715 172 (Given - Provid er: Cash Claudio RN) promethazine (PHENERGAN) tablet 25 mg 25 mg, Oral, ONCE, 1 dose, On 05/31/22 at 1915 192 (Not Given - Pr ovider: Judy Geiger RN - Reason: Patient/family refused - Comment: c/o nausea, states she is not willing to take pill at this time)2208 (Due - Provider: Judy Geiger RN - Comment: 2 tablets to go as ordered by Dr. Mtz) promethazine (PHENERGAN) tablet 25 mg 25 mg, Oral, ONCE, 1 dose, On 05/31/22 at 2215, Please give to go 1 tablet every 6 hours as needed for nausea or vomiting 2214 (Due) promethazine (PHENERGAN) tablet 25 mg (COMPLETED) 25 mg, Oral, ONCE, 1 dose, On 05/31/22 at 2215, 1 tablet every 6 hours as needed for nausea or vomiting 2208 (Given - Provid er: Judy Geiger RN) Scheduled Medication Order 08/25/2022 08/26/2022 08/27/2022 0.9 % sodium chloride bolus (COMPLETED) 1,000 mL (14.7 mL/kg), IntraVENous, at 1,000 mL/hr, Administer over 1 Hours, ONCE, On Rani 08/27/22 at 1915, For 1 dose 1933 (New Bag - Prov ider: Leslye Aggarwal RN)2118 (Stopped - Provider: Leslye Aggarwal RN) HYDROmorphone (DILAUDID) injection 1 mg (COMPLETED) 1 mg, IntraVENous, ONCE, 1 dose, On Rani 08/27/22 at 2044 2036 (Given - Provid er: Leslye Aggarwal RN) morphine injection 4 mg (COMPLETED) 4 mg, IntraVENous, ONCE, 1 dose, On Rani 08/27/22 at 1915 1934 (Given - Provid er: Leslye Aggarwal RN) ondansetron (ZOFRAN) injection 4 mg (COMPLETED) 4 mg, IntraVENous, ONCE, 1 dose, On Rani 08/27/22 at 1930 193 (Given - Provid er: Leslye Aggarwal RN) ondansetron (ZOFRAN) injection 4 mg (COMPLETED) 4 mg, IntraVENous, ONCE, 1 dose, On Rani 08/27/22 at 2044 2035 (Given - Provid er: Leslye Aggarwal RN) Scheduled Medication Order 11/17/2022 11/18/2022 11/19/2022 0.9 % sodium chloride bolus (COMPLETED) 1,000 mL, IntraVENous, at 495.9 mL/hr, Administer over 121 Minutes, ONCE, On Rani 11/19/22 at 1130, For 1 dose, For adult patients weighing > 55 kg (120 lbs.) and less than <50 years of age initiate 0.9NS at 500 mL/ hr. All bolus orders are to be given over 10 to 15 minutes 1140 (New Bag - Prov ider: Brittanie Keller RN)1341 (Stopped - Provider: Fern Price RN) heparin flush (PF) 100 UNIT/ML injection 300 Units (COMPLETED) 300 Units, IntraCATHeter, ONCE, 1 dose, On Rani 11/19/22 at 1500 1547 (Given - Provid er: Manuel Grier RN) hydrALAZINE (APRESOLINE) injection 10 mg (COMPLETED) 10 mg, IntraVENous, ONCE, 1 dose, On Rani 11/19/22 at 1315 1322 (Given - Provid er: Fern Price RN) HYDROmorphone (DILAUDID) injection 1 mg (COMPLETED) 1 mg, IntraVENous, ONCE, 1 dose, On Rani 11/19/22 at 1315, If oral and IV narcotics ordered, use oral first and only use IV if oral is ineffective or cannot take oral. Do Not give oral and IV within 1 hour of each other unless specifically ordered. 1323 (Given - Provid er: Fern Price RN) HYDROmorphone (DILAUDID) injection 1 mg (COMPLETED) 1 mg, IntraVENous, ONCE, 1 dose, On Rani 11/19/22 at 1445, If oral and IV narcotics ordered, use oral first and only use IV if oral is ineffective or cannot take oral. Do Not give oral and IV within 1 hour of each other unless specifically ordered. 1437 (Given - Provid er: Dinah Markham RN) morphine injection 4 mg (COMPLETED) 4 mg, IntraVENous, ONCE, 1 dose, On Rani 11/19/22 at 1130, If oral and IV narcotics ordered, use oral first and only use IV if oral is ineffective or cannot take oral. Do Not give oral and IV within 1 hour of each other unless specifically ordered. 1136 (Given - Provid er: Brittanie Keller RN) ondansetron (ZOFRAN) injection 4 mg (COMPLETED) 4 mg, IntraVENous, ONCE, 1 dose, On Rani 11/19/22 at 1130 1136 (Given - Provid er: Brittanie Keller RN) promethazine (PHENERGAN) injection 12.5 mg 12.5 mg, IntraMUSCular, ONCE, 1 dose, On Rani 11/19/22 at 1315, Only to be given as IM injection. 1328 (Not Given - Pr ovider: Fern Price RN - Reason: Other - Comment: Pt refused wanted infused in port not administered IM) Scheduled Medication Order 12/02/2022 12/03/2022 12/04/2022 0.9 % sodium chloride bolus (COMPLETED) 1,000 mL (14.7 mL/kg), IntraVENous, at 495.9 mL/hr, Administer over 121 Minutes, ONCE, On Wed12/04/22 at 1830, For 1 dose 1924 (New Bag - Prov ider: Gayle Zapata RN)2154 (Stopped - Provider: Oliva Kramer RN) dexamethasone (DECADRON) injection 8 mg (COMPLETED) 8 mg, IntraVENous, ONCE, On Wed12/04/22 at 1830, For 1 dose 1930 (Given - Provid er: Gayle Zapata RN) diphenhydrAMINE (BENADRYL) injection 25 mg (COMPLETED) 25 mg, IntraVENous, ONCE, 1 dose, On Wed12/04/22 at 1830, IV Push at rate not to exceed 25 mg/min. 1929 (Given - Provid er: Gayle Zapata RN) droperidol (INAPSINE) injection 1.25 mg (COMPLETED) 1.25 mg, IntraVENous, ONCE, 1 dose, On Wed12/04/22 at 2115 2204 (Given - Provid er: Oliva Kramer RN) LORazepam (ATIVAN) injection 1 mg (COMPLETED) 1 mg, IntraVENous, ONCE, 1 dose, On Wed12/04/22 at 2000, Immediately prior to intravenous use, lorazepam Injection must be diluted with an equal volume of compatible solution (NS or D5W). 2019 (Given - Provid er: Dinah Markham RN) orphenadrine (NORFLEX) injection 60 mg (COMPLETED) 60 mg, IntraVENous, ONCE, 1 dose, On Wed12/04/22 at 1830 193 (Given - Provid er: Gayle Zapata RN) Scheduled Medication Order 09/04/2023 09/05/2023 09/06/2023 fentaNYL (SUBLIMAZE) injection 25 mcg (COMPLETED) 25 mcg, IntraVENous, ONCE, 1 dose, On Wed09/06/23 at 1615, If oral and IV narcotics ordered, use oral first and only use IV if oral is ineffective or cannot take oral. Do Not give oral and IV within 1 hour of each other unless specifically ordered. 1629 (Given - Provid er: Lashaun Guardado RN) HYDROmorphone HCl PF (DILAUDID) injection 1 mg (COMPLETED) 1 mg, IntraVENous, ONCE, 1 dose, On Wed09/06/23 at 1715, If oral and IV narcotics ordered, use oral first and only use IV if oral is ineffective or cannot take oral. Do Not give oral and IV within 1 hour of each other unless specifically ordered. 1735 (Given - Provid er: Lashaun Guardado RN) ondansetron (ZOFRAN) injection 4 mg (COMPLETED) 4 mg, IntraVENous, ONCE, 1 dose, On Wed09/06/23 at 1415 1444 (Given - Provid er: Lashaun Guardado RN) pantoprazole (PROTONIX) 80 mg in sodium chloride 0.9 % 50 mL bolus (COMPLETED) 80 mg, IntraVENous, at 100 mL/hr, Administer over 30 Minutes, ONCE, On Wed09/06/23 at 1415, For 1 dose 1434 (New Bag - Prov ider: Lashaun Guardado RN)1507 (Stopped - Provider: Lashaun Guardado RN) prochlorperazine (COMPAZINE) injection 5 mg (COMPLETED) 5 mg, IntraVENous, ONCE, 1 dose, On Wed09/06/23 at 1615, If administering IV push, administer at a maximum rate of 5 mg/minute. 1629 (Given - Provid er: Lashaun Guardado RN) sodium chloride 0.9 % bolus 1,000 mL (COMPLETED) 1,000 mL (14.9 mL/kg), IntraVENous, at 983.6 mL/hr, Administer over 61 Minutes, ONCE, On Wed09/06/23 at 1415, For 1 dose, For adult patients weighing > 55 kg (120 lbs.) and less than <50 years of age initiate 0.9NS at 500 mL/ hr. All bolus orders are to be given over 10 to 15 minutes 1432 (New Bag - Prov ider: Lashaun Guardado RN)1611 (Stopped - Provider: Lashaun Guardado RN) Scheduled Medication Order 10/15/2023 10/16/2023 10/17/2023 heparin (PF) 100 UNIT/ML injection 100 Units (COMPLETED) 100 Units, IntraCATHeter, ONCE, 1 dose, On 10/17/23 at 1245 1304 (Given - Provid er: Lashaun Guardado RN) morphine (PF) injection 2 mg (COMPLETED) 2 mg, IntraVENous, ONCE, 1 dose, On 10/17/23 at 1115, If oral and IV narcotics ordered, use oral first and only use IV if oral is ineffective or cannot take oral. Do Not give oral and IV within 1 hour of each other unless specifically ordered. 1127 (Given - Provid er: Cash Claudio RN) ondansetron (ZOFRAN) injection 4 mg (COMPLETED) 4 mg, IntraVENous, ONCE, 1 dose, On 10/17/23 at 1115 1127 (Given - Provid er: Cash Claudio RN) prochlorperazine (COMPAZINE) injection 10 mg (COMPLETED) 10 mg, IntraVENous, ONCE, 1 dose, On 10/17/23 at 0915, If administering IV push, administer at a maximum rate of 5 mg/minute. 0938 (Given - Provid er: Cash Claudio RN) sodium chloride 0.9 % bolus 1,000 mL (COMPLETED) 1,000 mL, IntraVENous, at 983.6 mL/hr, Administer over 61 Minutes, ONCE, On Wed10/17/23 at 0915, For 1 dose 0938 (New Bag - Prov ider: Cash Claudio RN)1127 (Stopped - Provider: Cash Claudio RN) Scheduled Medication Order 12/01/2023 12/02/2023 12/03/2023 heparin (PF) 100 UNIT/ML injection 300 Units (COMPLETED) 300 Units, IntraCATHeter, ONCE, 1 dose, On Wed12/03/23 at 0200 0204 (Given - Provid er: Dinah Markham RN) morphine injection 4 mg (COMPLETED) 4 mg, IntraVENous, ONCE, 1 dose, On Rani 12/02/23 at 2245 2347 (Given - Provider: Ivania Aguero RN) morphine injection 4 mg (COMPLETED) 4 mg, IntraVENous, ONCE, 1 dose, On Wed12/03/23 at 0045 0050 (Given - Provid er: Yaritza Owens RN) ondansetron (ZOFRAN) injection 4 mg (COMPLETED) 4 mg, IntraVENous, ONCE, 1 dose, On Rani 12/02/23 at 2245 2346 (Given - Provider: Ivania Aguero RN) ondansetron (ZOFRAN) injection 4 mg (COMPLETED) 4 mg, IntraVENous, ONCE, 1 dose, On Wed12/03/23 at 0045 0050 (Given - Provid er: Yaritza Owens RN) pantoprazole (PROTONIX) 80 mg in sodium chloride 0.9 % 50 mL bolus (COMPLETED) 80 mg, IntraVENous, at 100 mL/hr, Administer over 30 Minutes, ONCE, On Rani 12/02/23 at 2245, For 1 dose 2346 (New Bag - Provider: Ivania Aguero RN) 0017 (Stopped - Provider: Dinah Markham RN) sodium chloride 0.9 % bolus 1,000 mL (COMPLETED) 1,000 mL (14.2 mL/kg), IntraVENous, at 1,935.5 mL/hr, Administer over 31 Minutes, ONCE, On Rani 12/02/23 at 2245, For 1 dose 2345 (New Bag - Provider: Ivania Aguero RN) 0126 (Stopped - Provider: Dinah Markham RN) No Frequency Medication Order 12/01/2023 12/02/2023 12/03/2023 pantoprazole (PROTONIX) 40 MG injection 1 dose, Starting on Rani 12/02/23 at 2323, Until Wed12/03/23 at 1129, Aguero, Ivania: cabinet override, Laci, Ivania: cabinet override 2352 (Not Given - Provider: Ivania Aguero RN - Reason: Other - Comment: see other med administration.) pantoprazole (PROTONIX) 40 MG injection 1 dose, Starting on Rani 12/02/23 at 2327, Until Wed12/03/23 at 1129, Aguero, Ivania: cabinet override, Laci, Ivania: cabinet override 2353 (Not Given - Provider: Ivania Aguero RN - Reason: Other - Comment: see other med administration.) sodium chloride 0.9 % infusion Starting on Rani 12/02/23 at 2327, For 1 dose, Ivania Aguero: cabinet override 2354 (Not Given - Provider: Ivania Aguero RN - Reason: Other - Comment: see other med administration.) Scheduled Medication Order 02/25/2024 02/26/2024 02/27/2024 morphine injection 4 mg (COMPLETED) 4 mg, IntraVENous, ONCE, 1 dose, On 02/27/24 at 1230, If oral and IV narcotics ordered, use oral first and only use IV if oral is ineffective or cannot take oral. Do Not give oral and IV within 1 hour of each other unless specifically ordered. 1228 (Given - Provid er: Manuel Grier RN) prochlorperazine (COMPAZINE) injection 10 mg (COMPLETED) 10 mg, IntraVENous, ONCE, 1 dose, On 02/27/24 at 1200, If administering IV push, administer at a maximum rate of 5 mg/minute. Patients should remain lying down following administration and be reassessed for relief of nausea and presence of hypotension. Patients should be assisted the first time they get up after administration. 1211 (Given - Provid er: Manuel Grier RN) sodium chloride 0.9 % bolus 1,000 mL (COMPLETED) 1,000 mL (14.7 mL/kg), IntraVENous, at 983.6 mL/hr, Administer over 61 Minutes, ONCE, On 02/27/24 at 1200, For 1 dose 1211 (New Bag - Prov ider: Manuel Grier RN)1314 (Stopped - Provider: Cherelle Albert RN) Scheduled Medication Order 02/29/2024 03/01/2024 03/02/2024 diphenhydrAMINE (BENADRYL) injection 25 mg (COMPLETED) 25 mg, IntraVENous, ONCE, 1 dose, On Rani 03/02/24 at 1030, IV Push at rate not to exceed 25 mg/min. 1031 (Given - Provid er: Manuel Grier RN) droPERidol (INAPSINE) injection 1.25 mg (COMPLETED) 1.25 mg, IntraVENous, ONCE, 1 dose, On Rani 03/02/24 at 1030 1032 (Given - Provid er: Manuel Grier RN) hydrALAZINE (APRESOLINE) injection 20 mg (COMPLETED) 20 mg, IntraVENous, ONCE, 1 dose, On Rani 03/02/24 at 1330 1323 (Given - Provid er: Lashaun Guardado RN) HYDROmorphone HCl PF (DILAUDID) injection 1 mg (COMPLETED) 1 mg, IntraVENous, ONCE, 1 dose, On Rani 03/02/24 at 1030, If oral and IV narcotics ordered, use oral first and only use IV if oral is ineffective or cannot take oral. Do Not give oral and IV within 1 hour of each other unless specifically ordered. 1033 (Given - Provid er: Manuel Grier RN) labetalol (NORMODYNE;TRANDATE) injection 10 mg (COMPLETED) 10 mg, IntraVENous, ONCE, 1 dose, On Rani 03/02/24 at 1230 1247 (Given - Provid er: Livier Mohamud RN) morphine (PF) injection 2 mg (COMPLETED) 2 mg, IntraVENous, ONCE, 1 dose, On Rani 03/02/24 at 1530, If oral and IV narcotics ordered, use oral first and only use IV if oral is ineffective or cannot take oral. Do Not give oral and IV within 1 hour of each other unless specifically ordered. 1530 (Given - Provid er: Lashaun Guardado RN) morphine injection 4 mg (COMPLETED) 4 mg, IntraVENous, ONCE, 1 dose, On Rani 03/02/24 at 0915, If oral and IV narcotics ordered, use oral first and only use IV if oral is ineffective or cannot take oral. Do Not give oral and IV within 1 hour of each other unless specifically ordered. 0914 (Given - Provid er: Paola Louie RN) morphine injection 4 mg (COMPLETED) 4 mg, IntraVENous, ONCE, 1 dose, On Rani 03/02/24 at 1345, If oral and IV narcotics ordered, use oral first and only use IV if oral is ineffective or cannot take oral. Do Not give oral and IV within 1 hour of each other unless specifically ordered. 1336 (Given - Provid er: Lashaun Guardado RN) ondansetron (ZOFRAN) injection 4 mg (COMPLETED) 4 mg, IntraVENous, ONCE, 1 dose, On Rani 03/02/24 at 0900 0910 (Given - Provid er: Paola Louie RN) ondansetron (ZOFRAN) injection 4 mg (COMPLETED) 4 mg, IntraVENous, ONCE, 1 dose, On Rani 03/02/24 at 1345 1336 (Given - Provid er: Lashaun Guardado RN) sodium chloride 0.9 % bolus 1,000 mL (COMPLETED) 1,000 mL (14.7 mL/kg), IntraVENous, at 2,000 mL/hr, Administer over 30 Minutes, ONCE, On Rani 03/02/24 at 0900, For 1 dose 0907 (New Bag - Prov ider: Fahad Guerrero RN)0937 (Stopped - Provider: Manuel Grier RN) sodium chloride 0.9 % bolus 1,000 mL (COMPLETED) 1,000 mL (14.7 mL/kg), IntraVENous, at 2,000 mL/hr, Administer over 30 Minutes, ONCE, On Rani 03/02/24 at 1115, For 1 dose 1112 (New Bag - Prov ider: Manuel Grier RN)1210 (Stopped - Provider: Lashaun Guardado RN) sodium chloride flush 0.9 % injection 3 mL(Linked Group 1) 3 mL, IntraVENous, EVERY 8 HOURS, First dose on Rani 03/02/24 at 0900, Until Discontinued, Flush line with 3-5 mL 0908 (Given - Provid er: Fahad Guerrero RN)1700 (Due) PRN Medication Order 02/29/2024 03/01/2024 03/02/2024 iopamidol (ISOVUE-370) 76 % injection 75 mL (COMPLETED) 75 mL, IntraVENous, IMG ONCE PRN, 1 dose, Starting on Rani 03/02/24 at 1036, Until Rani 03/02/24 at 1043, Other 1043 (Given - Provid er: Leela Cabral) Linked Groups Order Group 1: Saline lock IV (COMPLETED) Routine, CONTINUOUS, Starting on Rani 03/02/24 at 0845, Until Specified And sodium chloride flush 0.9 % injection 3 mLJump to med 3 mL, IntraVENous, EVERY 8 HOURS, First dose on Rani 03/02/24 at 0900, Until Discontinued, Flush line with 3-5 mL Care Teams (unrecognized sec tion and content) Team Status: Active Member Role Status Dates Jalyn Holt , DO Primary Care Provider Active Team Status: Active Member Role Status Dates Guerrero Don , DO Primary Care Provider Active Rudy Rm APRN Attending Provider Active Team Status: Inactive Member Role Status Dates Jalyn Holt , DO Primary Care Provider Active George Núñez DO Emergency Provider Active Medical Affairs Specialist Relationship Specialty Start Date End Date Adelina Amador MD [address] [place] [address] Dr [address] [place] [address] PCP - General Family Medicine 07/01/21 Medical Affairs Specialist Relationship Specialty Start Date End Date Adelina Amador MD [address] [place] [address] Dr [address] [place] [address] PCP - General Family Medicine 07/01/21 Medical Affairs Specialist Relationship Specialty Start Date End Date Lucian Schuster (Sales Agent [employer]) [address] [facility] [place] [address] PCP - General 07/12/14 Alma Ramos (Rn), undertaker assistant Coordinator 07/17/14 Patti Daley Jr. [address] [address] Referring Gastroenterology 08/29/21 Medical Affairs Specialist Relationship Specialty Start Date End Date Lucian Schuster (Sales Agent [employer]) [address] [place] [address] PCP - General 07/12/14 Alma Ramos (Rn), undertaker assistant Coordinator 07/17/14 Patti ricci Jr. [address] [address] Referring Gastroenterology 08/29/21 Medical Affairs Specialist Relationship Specialty Start Date End Date Lucian Schuster (Sales Agent [employer]) [address] [place] [address] PCP - General 07/12/14 Alma Ramos (Rn), undertaker assistant Coordinator 07/17/14 Patti ricci Jr. [address] [address] Referring Gastroenterology 08/29/21 Medical Affairs Specialist Relationship Specialty Start Date End Date Lucian Schuster (Sales Agent [employer]) [address] [place] [address] PCP - General 07/12/14 Alma Ramos (Rn), undertaker assistant Coordinator 07/17/14 Patti ricci Jr. [address] [address] Referring Gastroenterology 08/29/21 Medical Affairs Specialist Relationship Specialty Start Date End Date Lucian Schuster (Sales Agent [employer]) [address] [place] [address] PCP - General 07/12/14 Alma Ramos (Rn), undertaker assistant Coordinator 07/17/14 Patti Daley Jr. [address] [address] Referring Gastroenterology 08/29/21 Medical Affairs Specialist Relationship Specialty Start Date End Date Lucian Schuster ([facility]) [address] [place] [id number] PCP - General 07/12/14 Alma Ramos (Rn), undertaker assistant Coordinator 07/17/14 Patti Daley Jr. [address] [address] Referring Gastroenterology 08/29/21 Medical Affairs Specialist Relationship Specialty Start Date End Date BeverlyYannick mccollumitlin, DO [address] [place] [address] PCP - General 01/05/22 Alma Ramos (Rn), undertaker assistant Coordinator 07/17/14 Patti ricci Jr. [address] [address] Referring Gastroenterology 08/29/21 Medical Affairs Specialist Relationship Specialty Start Date End Date Yannick Sanzitlin, DO [address] [place] [place] [address] PCP - General 01/05/22 Alma Ramos (Rn), undertaker assistant Coordinator 07/17/14 Patti ricci Jr. [address] [address] Referring Gastroenterology 08/29/21 Medical Affairs Specialist Relationship Specialty Start Date End Date Jalyn Sanz, DO [address] [place] [address] PCP - General 01/05/22 Alma Ramos (Rn), undertaker assistant Coordinator 07/17/14 Patti Daley Jr. [address] [address] Referring Gastroenterology 08/29/21 Medical Affairs Specialist Relationship Specialty Start Date End Date Jalyn Sanz, DO [address] [place] [address] PCP - General 01/05/22 Alma Ramos (Rn), undertaker assistant Coordinator 07/17/14 Patti Daley Jr. [address] [place] [address] Referring Gastroenterology 08/29/21 Medical Affairs Specialist Relationship Specialty Start Date End Date Jalyn Sanz, DO [address] [place] [address] PCP - General 01/05/22 Alma Ramos (Rn), undertaker assistant Coordinator 07/17/14 Patti Daley Jr. [address] [place] [address] Referring Gastroenterology 08/29/21 Medical Affairs Specialist Relationship Specialty Start Date End Date Jalyn Sanz, DO [address] [place] [address] PCP - General 01/05/22 Alma Ramos (Rn), undertaker assistant Coordinator 07/17/14 Patti Daley Jr. [address] [place] [address] Referring Gastroenterology 08/29/21 Medical Affairs Specialist Relationship Specialty Start Date End Date Jalyn Sanz, DO [address] [facility] [place] [address] PCP - General 01/05/22 Alma Ramos (Rn), undertaker assistant Coordinator 07/17/14 Patti Daley Jr. [address] [place] [address] Referring Gastroenterology 08/29/21 Medical Affairs Specialist Relationship Specialty Start Date End Date Jalyn Sanz, DO [address] [place] [address] PCP - General 01/05/22 Alma Ramos (Rn), undertaker assistant Coordinator 07/17/14 Patti Daley Jr. [address] [place] [address] Referring Gastroenterology 08/29/21 Medical Affairs Specialist Relationship Specialty Start Date End Date Jalyn Sanz, DO [address] [place] [address] PCP - General 01/05/22 Alma Ramos (Rn), undertaker assistant Coordinator 07/17/14 Patti Daley Jr. [address] [place] [address] Referring Gastroenterology 08/29/21 Medical Affairs Specialist Relationship Specialty Start Date End Date Jalyn Sanz, DO [address] [place] [address] PCP - General 01/05/22 Alma Ramos (Rn), undertaker assistant Coordinator 07/17/14 Patti Daley Jr. [address] [place] [address] Referring Gastroenterology 08/29/21 Medical Affairs Specialist Relationship Specialty Start Date End Date Jalyn Sanz, DO [address] [place] [address] PCP - General 01/05/22 Alma Ramos (Rn), undertaker assistant Coordinator 07/17/14 Patti Daley Jr. [address] [place] [address], [place] [address] Referring Gastroenterology 08/29/21 Medical Affairs Specialist Relationship Specialty Start Date End Date Jalyn Sanz, DO [address] [place] [address] PCP - General 01/05/22 Alma Ramos (Rn), undertaker assistant Coordinator 07/17/14 Patti Daley Jr. [address] [address] Referring Gastroenterology 08/29/21 Medical Affairs Specialist Relationship Specialty Start Date End Date Jalyn Sanz, DO [address] [place] [address] PCP - General 01/05/22 Alma Ramos (Rn), undertaker assistant Coordinator 07/17/14 Patti Daley Jr. [address] [address] Referring Gastroenterology 08/29/21 Team Status: Inactive Member Role Status Dates Jalyn Holt , Primary Care Provider Active Sukhwinder Styles DO Emergency Provider Active Team Status: Inactive Member Role Status Dates Jalyn Holt , Primary Care Provider Active Nico Wheeler MD Emergency Provider Active Medical Affairs Specialist Relationship Specialty Start Date End Date Jalyn Sanz, DO [address] [place] [place] [address] PCP - General 01/05/22 Alma Ramos (Rn), undertaker assistant Coordinator 07/17/14 Patti Daley Jr., DO [address] [address] Referring Gastroenterology 08/29/21 Medical Affairs Specialist Relationship Specialty Start Date End Date YvonYannickJalyn, DO [address] [place] [address] PCP - General 01/05/22 Alma Ramos (Rn), undertaker assistant Coordinator 07/17/14 Patti Daley Jr., DO [address] [address] Referring Gastroenterology 08/29/21 Medical Affairs Specialist Relationship Specialty Start Date End Date Jalyn Holt, DO [address] [place] [address] PCP - General 03/23/22 Team Status: Inactive Member Role Status Dates Jalyn Holt , DO Primary Care Provider, Attendi Provider Active Medical Affairs Specialist Relationship Specialty Start Date End Date Jonathon Jalyn, [address] [place] [address] PCP - General 03/23/22 Medical Affairs Specialist Relationship Specialty Start Date End Date Jalyn Sanz, DO [address] [place] [address] PCP - General 01/05/22 Alma Ramos (Rn), undertaker assistant Coordinator 07/17/14 Patti Daley Jr., [address] [address] Referring Gastroenterology 08/29/21 Medical Affairs Specialist Relationship Specialty Start Date End Date Jalyn Sanz, DO [address] [place] [address] PCP - General 01/05/22 Alma Ramos (Rn), undertaker assistant Coordinator 07/17/14 Patti Daley Jr., [address] [address] Referring Gastroenterology 08/29/21 Medical Affairs Specialist Relationship Specialty Start Date End Date Jalyn Sanz, DO [address] [place] [address] PCP - General 01/05/22 Alma Ramos (Rn), undertaker assistant Coordinator 07/17/14 Patti Daley Jr., [address] [address] Referring Gastroenterology 08/29/21 Medical Affairs Specialist Relationship Specialty Start Date End Date Jalyn Holt DO [address] [place] [address] PCP - General 03/23/22 Medical Affairs Specialist Relationship Specialty Start Date End Date Jalyn Sanz, DO [address] [place] [address] PCP - General 01/05/22 Alma Ramos (Rn), undertaker assistant Coordinator 07/17/14 Patti Daley Jr., DO [address] [address] Referring Gastroenterology 08/29/21 Medical Affairs Specialist Relationship Specialty Start Date End Date Jalyn Sanz, DO [address] [place] [address] PCP - General 01/05/22 Alma Ramos (Rn), undertaker assistant Coordinator 07/17/14 Patti Daley Jr., DO [address] [address] Referring Gastroenterology 08/29/21 Medical Affairs Specialist Relationship Specialty Start Date End Date Jalyn Sanz, DO [address] [place] [address] PCP - General 01/05/22 Alma Ramos (Rn), undertaker assistant Coordinator 07/17/14 Patti Daley Jr., DO [address] [address] Referring Gastroenterology 08/29/21 Team Status: Inactive Member Role Status Dates Jalyn Holt DO Primary Care Provider Active Aravind Chandler , Emergency Provider Active Ronny Gastelum , Admit Provider, Attending Provider Active Medical Affairs Specialist Relationship Specialty Start Date End Date Jalyn Holt DO [address] [facility] [address] [place] [address] PCP - General 03/23/22 Team Status: Inactive Member Role Status Dates Jalyn Holt DO Primary Care Provider Active Alejandra Cespedse MD Attending Provider Active Medical Affairs Specialist Relationship Specialty Start Date End Date Jalyn Holt DO [address] [place] [address] PCP - General 03/23/22 Team Status: Inactive Member Role Status Dates Jalyn Holt , DO Primary Care Provider Active Jaime Oliver , DO Emergency Provider Active Team Status: Inactive Member Role Status Dates Jalyn Holt , DO Primary Care Provider Active Víctor Stuart APRN Emergency Provider Active Team Status: Inactive Member Role Status Dates Jalyn Holt , DO Primary Care Provider Active Poly Morgan MD Attending Provider Active Team Status: Active Member Role Status Dates Kassie Dunbar LPN Care Manager Active Jalyn Holt , DO Primary Care Provider Active Team Status: Inactive Member Role Status Dates Jalyn Holt , DO Primary Care Provider Active Start: May 13, 2023 End: May 13, 2023 George Núñez DO Emergency Provider Active Sta rt: May 13, 2023 End: May 13, 2023 Team Status: Inactive Member Role Status Dates Jalyn Holt , DO Primary Care Provider Active Start: May 19, 2023 End: May 19, 2023 Nico Wheeler MD Emergency Provider Active Star t: May 19, 2023 End: May 19, 2023 Team Status: Inactive Member Role Status Dates Jalyn Holt , DO Primary Care Provider Active Start: May 20, 2023 End: May 20, 2023 Víctor Stuart APRN Emergency Provider Active Start: May 20, 2023 End: May 20, 2023 Team Status: Inactive Member Role Status Dates Jalyn Holt , Attending Provider Active Start: May 21, 2023 End: May 21, 2023 Team Status: Inactive Member Role Status Dates Rudy Rm APRN Attending Provider Active Start: June 17, 2023 End: June 17, 2023 Team Status: Active Member Role Status Dates Guerrero Don DO Primary Care Provider Active Start: June 17, 2023 Rudy Rm APRN Attending Provider Active Start: June 17, 2023 Team Status: Inactive Member Role Status Dates Jalyn Holt DO Primary Care Provider Active Start: June 22, 2023 End: June 22, 2023 Poly Morgan MD Attending Provider Active Start: June 22, 2023 End: June 22, 2023 Team Status: Active Member Role Status Dates Jalyn Holt DO Primary Care Pro vider, Attending Provider Active Start: June 29, 2023 Team Status: Active Member Role Status Dates Jalyn Holt DO Primary Care Provider Active Start: July 09, 2023 Poly Morgan MD Attending Prov ider, Other Provider Active Start: July 09, 2023 Team Status: Inactive Member Role Status Dates Guerrero Don DO Primary Care Provider Active Start: June 17, 2023 End: June 17, 2023 Rudy Rm APRN Attending Provider Active Start: June 17, 2023 End: June 17, 2023 Team Status: Inactive Member Role Status Dates Poly Morgan MD Attending Provider Active Start: July 07, 2023 End: July 07, 2023 Medical Affairs Specialist Relationship Specialty Start Date End Date Jalyn Holt DO [address] [place] [address] PCP - General 03/23/22 Team Status: Inactive Member Role Status Dates Jalyn Holt DO Primary Care Provider Active Start: August 08, 2023 End: August 08, 2023 DEL Branch Attending Provider Active S tart: August 08, 2023 End: August 08, 2023 Team Status: Inactive Member Role Status Dates Jalyn Holt DO Primary Care Provider Active Start: September 20, 2023 End: September 20, 2023 Rudy Rm APRN Attending Provider Active Start: September 20, 2023 End: September 20, 2023 Team Status: Inactive Member Role Status Dates Jalyn Holt DO Primary Care Pro vider, Attending Provider Active Start: October 08, 2023 End: October 08, 2023 Medical Affairs Specialist Relationship Specialty Start Date End Date Jalyn Holt DO [address] [place] [address] PCP - General 03/23/22 Medical Affairs Specialist Relationship Specialty Start Date End Date Jalyn Holt DO [address] [address] PCP - General 03/23/22 Team Status: Active Member Role Status Dates Lacie Hopson LPN Care Manager Active Jalyn Holt , DO Primary Care Provider Active Team Status: Inactive Member Role Status Dates Jalyn Holt , DO Primary Care Provider Active Start: January 05, 2024 End: January 05, 2024 Rudy Rm APRN Attending Provider Active Start: January 05, 2024 End: January 05, 2024 Team Status: Inactive Member Role Status Dates Jalyn Holt , DO Primary Care Pro vider, Attending Provider Active Start: January 07, 2024 End: January 07, 2024 Team Status: Inactive Member Role Status Dates Jalyn Holt , DO Primary Care Pro vider, Attending Provider Active Start: February 25, 2024 End: February 25, 2024 Medical Affairs Specialist Relationship Specialty Start Date End Date Jalyn Holt DO [address] [address] PCP - General 03/23/22 Medical Affairs Specialist Relationship Specialty Start Date End Date Jalyn Holt DO [address] [address] PCP - General 03/23/22 Team Status: Active Member Role Status Dates Jalyn Holt DO Primary Care Pro vider, Attending Provider Active Start: March 17, 2024 Team Status: Inactive Member Role Status Dates Jalyn Holt DO Primary Care Provider Active Start: April 11, 2024 End: April 11, 2024 Rudy Rm APRN Attending Provider Active Start: April 11, 2024 End: April 11, 2024 Medical Affairs Specialist Relationship Specialty Start Date End Date Jalyn Hlot DO [address] [place] [address] PCP - General 04/18/24 Daniel Cuevas DO [address] [place] [address] Otolaryngology 04/25/24 Medical Affairs Specialist Relationship Specialty Start Date End Date Jalyn Holt DO [address] [place] [address] PCP - General 04/18/24 Daniel Cuevas DO [address] [place] [address] Otolaryngology 04/25/24 Medical Affairs Specialist Relationship Specialty Start Date End Date Jalyn Holt DO [address] [place] [address] PCP - General 04/18/24 Daniel Cuevas DO [address] [place] [address] Otolaryngology 04/25/24 Team Status: Inactive Member Role Status Dates Jalyn Holt DO Primary Care Pro vider, Other Provider Active Start: April 25, 2024 End: April 25, 2024 Daniel Cuevas DO Attending Provider Active S tart: April 25, 2024 End: April 25, 2024 Medical Affairs Specialist Relationship Specialty Start Date End Date Jalyn Holt DO [address] [place] [address] PCP - General 04/18/24 Daniel Cuevas, DO [address] [place] [address] Otolaryngology 04/25/24 Medical Affairs Specialist Relationship Specialty Start Date End Date Jalyn Holt DO [address] [place] [address] PCP - General Family Medicine 02/08/23 Medical Affairs Specialist Relationship Specialty Start Date End Date Jalyn Holt DO [address] [place] [address] PCP - General Family Medicine 02/08/23 Medical Affairs Specialist Relationship Specialty Start Date End Date Jalyn Holt DO [address] [place] [address] PCP - General Family Medicine 02/08/23 Medical Affairs Specialist Relationship Specialty Start Date End Date Jalyn Holt DO [address] [place] [address] PCP - General 04/18/24 Daniel Cuevas, DO [address] [address] Otolaryngology 04/25/24 Medical Affairs Specialist Relationship Specialty Start Date End Date Jalyn Holt DO [address] [place] [address] PCP - General 04/18/24 Daniel Cuevas, DO [address] [place] [address] Otolaryngology 04/25/24 Team Status: Inactive Member Role Status Dates Jalyn Holt DO Primary Care Pro vider, Attending Provider Active Start: May 08, 2024 End: May 08, 2024 Team Status: Inactive Member Role Status Dates Jalyn Holt DO Primary Care Provider Active Start: May 15, 2024 End: May 15, 2024 Daniel Cuevas DO Attending Provider Active S tart: May 15, 2024 End: May 15, 2024 Team Status: Inactive Member Role Status Dates Jalyn Holt DO Primary Care Provider Active Start: August 02, 2024 End: August 02, 2024 Rudy Rm APRN Attending Provider Active Start: August 02, 2024 End: August 02, 2024 Team Status: Inactive Member Role Status Dates Jalyn Holt DO Primary Care Provider Active Start: August 04, 2024 End: August 04, 2024 Jovanny Biggs Jr, MD Emergency Provider Active Start: August 04, 2024 End: August 04, 2024 Team Status: Active Member Role Status Dates Jalyn Holt DO Primary Care Provider Active Start: August 07, 2024 Lacie Hopson Attending Provider Active Start: August 07, 2024 Team Status: Active Member Role Status Dates Jalyn Holt DO Primary Care Provider Active Start: August 15, 2024 Lacie Hopson Attending Provider Active Start: August 15, 2024 Team Status: Inactive Member Role Status Dates Jalyn Holt DO Primary Care Provider Active Start: August 28, 2024 End: August 28, 2024 Antonino Delgado MD Attending Provider Active Star t: August 28, 2024 End: August 28, 2024 Medical Affairs Specialist Relationship Specialty Start Date End Date Jalyn Holt DO [address] [place] [address] [place] [address] PCP - General 04/18/24 Daniel Cuevas, DO [address]clean [place] [address] Otolaryngology 04/25/24 Team Status: Inactive Member Role Status Dates Jalyn Holt DO Primary Care Provider Active Start: September 11, 2024 End: September 11, 2024 Antonino Delgado MD Attending Provider Active Star t: September 11, 2024 End: September 11, 2024 Medical Affairs Specialist Relationship Specialty Start Date End Date Jalyn Holt DO PCP - General 04/18/24 Daniel Cuevas DO [address]clean [place] [address] Otolaryngology 04/25/24 Medical Affairs Specialist Relationship Specialty Start Date End Date Jalyn Holt DO PCP - General 04/18/24 Daniel Cuevas DO [address] [place] [address] Otolaryngology 04/25/24 Team Status: Inactive Member Role Status Dates Jalyn Holt DO Primary Care Pro vider, Attending Provider Active Start: September 25, 2024 End: September 25, 2024 Team Status: Inactive Member Role Status Dates Jalyn Holt DO Primary Care Provider Active Start: November 06, 2024 End: November 06, 2024 Rudy Rm APRN Attending Provider Active Start: November 06, 2024 End: November 06, 2024 Source Comments (unrecognize d section and content) In the event this informatio n is protected by the [facility] Confidentiality of Alcohol and Drug Abuse Patient Records regulations: The Federal rules restrict any use of the information to criminally investigate or prosecute any alcohol or drug abuse patient.[facility] FoundationIn the event this information is protected by the Federal Confidentiality of Alcohol and Drug Abuse Patient Records regulations: The Federal rules restrict any use of the information to criminally investigate or prosecute any alcohol or drug abuse patient.[facility] FoundationIn the event this information is protected by the Federal Confidentiality of Alcohol and Drug Abuse Patient Records regulations: The Federal rules restrict any use of the information to criminally investigate or prosecute any alcohol or drug abuse patient.[facility] FoundationIn the event this information is protected by the Federal Confidentiality of Alcohol and Drug Abuse Patient Records regulations: The Federal rules restrict any use of the information to criminally investigate or prosecute any alcohol or drug abuse patient.[facility] [facility] FoundationIn the event this information is protected by the Federal Confidentiality of Alcohol and Drug Abuse Patient Records regulations: The Federal rules restrict any use of the information to criminally investigate or prosecute any alcohol or drug abuse patient.[facility] FoundationIn the event this information is protected by the Federal Confidentiality of Alcohol and Drug Abuse Patient Records regulations: The Federal rules restrict any use of the information to criminally investigate or prosecute any alcohol or drug abuse patient.[facility] FoundationIn the event this information is protected by the Federal Confidentiality of Alcohol and Drug Abuse Patient Records regulations: The Federal rules restrict any use of the information to criminally investigate or prosecute any alcohol or drug abuse patient.[facility] FoundationIn the event this information is protected by the Federal Confidentiality of Alcohol and Drug Abuse Patient Records regulations: The Federal rules restrict any use of the information to criminally investigate or prosecute any alcohol or drug abuse patient.[facility] FoundationIn the event this information is protected by the Federal Confidentiality of Alcohol and Drug Abuse Patient Records regulations: The Federal rules restrict any use of the information to criminally investigate or prosecute any alcohol or drug abuse patient.[facility] FoundationIn the event this information is protected by the Federal Confidentiality of Alcohol and Drug Abuse Patient Records regulations: The Federal rules restrict any use of the information to criminally investigate or prosecute any alcohol or drug abuse patient.[facility] FoundationIn the event this information is protected by the Federal Confidentiality of Alcohol and Drug Abuse Patient Records regulations: The Federal rules restrict any use of the information to criminally investigate or prosecute any alcohol or drug abuse patient.[facility] FoundationIn the event this information is protected by the Federal Confidentiality of Alcohol and Drug Abuse Patient Records regulations: The Federal rules restrict any use of the information to criminally investigate or prosecute any alcohol or drug abuse patient.[facility] FoundationIn the event this information is protected by the Federal Confidentiality of Alcohol and Drug Abuse Patient Records regulations: The Federal rules restrict any use of the information to criminally investigate or prosecute any alcohol or drug abuse patient.[facility] FoundationIn the event this information is protected by the Federal Confidentiality of Alcohol and Drug Abuse Patient Records regulations: The Federal rules restrict any use of the information to criminally investigate or prosecute any alcohol or drug abuse patient.[facility] FoundationIn the event this information is protected by the Federal Confidentiality of Alcohol and Drug Abuse Patient Records regulations: The Federal rules restrict any use of the information to criminally investigate or prosecute any alcohol or drug abuse patient.[facility] FoundationIn the event this information is protected by the Federal Confidentiality of Alcohol and Drug Abuse Patient Records regulations: The Federal rules restrict any use of the information to criminally investigate or prosecute any alcohol or drug abuse patient.[facility] FoundationIn the event this information is protected by the Federal Confidentiality of Alcohol and Drug Abuse Patient Records regulations: The Federal rules restrict any use of the information to criminally investigate or prosecute any alcohol or drug abuse patient.[facility] FoundationIn the event this information is protected by the Federal Confidentiality of Alcohol and Drug Abuse Patient Records regulations: The Federal rules restrict any use of the information to criminally investigate or prosecute any alcohol or drug abuse patient.[facility] FoundationIn the event this information is protected by the Federal Confidentiality of Alcohol and Drug Abuse Patient Records regulations: The Federal rules restrict any use of the information to criminally investigate or prosecute any alcohol or drug abuse patient.[facility] FoundationIn the event this information is protected by the Federal Confidentiality of Alcohol and Drug Abuse Patient Records regulations: The Federal rules restrict any use of the information to criminally investigate or prosecute any alcohol or drug abuse patient.[facility] FoundationIn the event this information is protected by the Federal Confidentiality of Alcohol and Drug Abuse Patient Records regulations: The Federal rules restrict any use of the information to criminally investigate or prosecute any alcohol or drug abuse patient.[facility] FoundationIn the event this information is protected by the Federal Confidentiality of Alcohol and Drug Abuse Patient Records regulations: The Federal rules restrict any use of the information to criminally investigate or prosecute any alcohol or drug abuse patient.[facility] FoundationIn the event this information is protected by the Federal Confidentiality of Alcohol and Drug Abuse Patient Records regulations: The Federal rules restrict any use of the information to criminally investigate or prosecute any alcohol or drug abuse patient.[facility] FoundationIn the event this information is protected by the Federal Confidentiality of Alcohol and Drug Abuse Patient Records regulations: The Federal rules restrict any use of the information to criminally investigate or prosecute any alcohol or drug abuse patient.[facility] FoundationIn the event this information is protected by the Federal Confidentiality of Alcohol and Drug Abuse Patient Records regulations: The Federal rules restrict any use of the information to criminally investigate or prosecute any alcohol or drug abuse patient.[facility] FoundationIn the event this information is protected by the Federal Confidentiality of Alcohol and Drug Abuse Patient Records regulations: The Federal rules restrict any use of the information to criminally investigate or prosecute any alcohol or drug abuse patient.[facility] FoundationIn the event this information is protected by the Federal Confidentiality of Alcohol and Drug Abuse Patient Records regulations: The Federal rules restrict any use of the information to criminally investigate or prosecute any alcohol or drug abuse patient.[facility] FoundationIn the event this information is protected by the Federal Confidentiality of Alcohol and Drug Abuse Patient Records regulations: The Federal rules restrict any use of the information to criminally investigate or prosecute any alcohol or drug abuse patient.[facility] FoundationIn the event this information is protected by the Federal Confidentiality of Alcohol and Drug Abuse Patient Records regulations: The Federal rules restrict any use of the information to criminally investigate or prosecute any alcohol or drug abuse patient.[facility] FoundationIn the event this information is protected by the Federal Confidentiality of Alcohol and Drug Abuse Patient Records regulations: The Federal rules restrict any use of the information to criminally investigate or prosecute any alcohol or drug abuse patient.[facility] FoundationIn the event this information is protected by the Federal Confidentiality of Alcohol and Drug Abuse Patient Records regulations: The Federal rules restrict any use of the information to criminally investigate or prosecute any alcohol or drug abuse patient.[facility] FoundationIn the event this information is protected by the Federal Confidentiality of Alcohol and Drug Abuse Patient Records regulations: The Federal rules restrict any use of the information to criminally investigate or prosecute any alcohol or drug abuse patient.[facility] FoundationIn the event this information is protected by the Federal Confidentiality of Alcohol and Drug Abuse Patient Records regulations: The Federal rules restrict any use of the information to criminally investigate or prosecute any alcohol or drug abuse patient.[facility] FoundationIn the event this information is protected by the Federal Confidentiality of Alcohol and Drug Abuse Patient Records regulations: The Federal rules restrict any use of the information to criminally investigate or prosecute any alcohol or drug abuse patient.[facility] FoundationIn the event this information is protected by the Federal Confidentiality of Alcohol and Drug Abuse Patient Records regulations: The Federal rules restrict any use of the information to criminally investigate or prosecute any alcohol or drug abuse patient.[facility] FoundationIn the event this information is protected by the Federal Confidentiality of Alcohol and Drug Abuse Patient Records regulations: The Federal rules restrict any use of the information to criminally investigate or prosecute any alcohol or drug abuse patient.[facility] FoundationIn the event this information is protected by the Federal Confidentiality of Alcohol and Drug Abuse Patient Records regulations: The Federal rules restrict any use of the information to criminally investigate or prosecute any alcohol or drug abuse patient.[facility] FoundationIn the event this information is protected by the Federal Confidentiality of Alcohol and Drug Abuse Patient Records regulations: The Federal rules restrict any use of the information to criminally investigate or prosecute any alcohol or drug abuse patient.[facility] FoundationIn the event this information is protected by the Federal Confidentiality of Alcohol and Drug Abuse Patient Records regulations: The Federal rules restrict any use of the information to criminally investigate or prosecute any alcohol or drug abuse patient.[facility] FoundationIn the event this information is protected by the Federal Confidentiality of Alcohol and Drug Abuse Patient Records regulations: The Federal rules restrict any use of the information to criminally investigate or prosecute any alcohol or drug abuse patient.[facility] FoundationIn the event this information is protected by the Federal Confidentiality of Alcohol and Drug Abuse Patient Records regulations: The Federal rules restrict any use of the information to criminally investigate or prosecute any alcohol or drug abuse patient.[facility] FoundationIn the event this information is protected by the Federal Confidentiality of Alcohol and Drug Abuse Patient Records regulations: The Federal rules restrict any use of the information to criminally investigate or prosecute any alcohol or drug abuse patient.[facility] FoundationIn the event this information is protected by the Federal Confidentiality of Alcohol and Drug Abuse Patient Records regulations: The Federal rules restrict any use of the information to criminally investigate or prosecute any alcohol or drug abuse patient.[facility] FoundationIn the event this information is protected by the Federal Confidentiality of Alcohol and Drug Abuse Patient Records regulations: The Federal rules restrict any use of the information to criminally investigate or prosecute any alcohol or drug abuse patient.[facility] FoundationIn the event this information is protected by the Federal Confidentiality of Alcohol and Drug Abuse Patient Records regulations: The Federal rules restrict any use of the information to criminally investigate or prosecute any alcohol or drug abuse patient.[facility] FoundationIn the event this information is protected by the Federal Confidentiality of Alcohol and Drug Abuse Patient Records regulations: The Federal rules restrict any use of the information to criminally investigate or prosecute any alcohol or drug abuse patient.[facility] FoundationIn the event this information is protected by the Federal Confidentiality of Alcohol and Drug Abuse Patient Records regulations: The Federal rules restrict any use of the information to criminally investigate or prosecute any alcohol or drug abuse patient.[facility] FoundationIn the event this information is protected by the Federal Confidentiality of Alcohol and Drug Abuse Patient Records regulations: The Federal rules restrict any use of the information to criminally investigate or prosecute any alcohol or drug abuse patient.[facility] FoundationIn the event this information is protected by the Federal Confidentiality of Alcohol and Drug Abuse Patient Records regulations: The Federal rules restrict any use of the information to criminally investigate or prosecute any alcohol or drug abuse patient.[facility] Goals (unrecognized section and content) Goals may be documented in a n alternate section <item> Privacy Markings (unrecogniz ed section and content) Section Author: Jey Yadav PROHIBITION ON REDISCLOSURE OF CONFIDENTIAL INFORMATION This notice accompanies a disclosure of information concerning a client made to you with the consent of such client. FOR RECORDS PERTAINING TO PATIENTS WHO ARE OR HAVE BEEN ENROLLED IN A CHEMICAL DEPENDENCY/SUBSTANCEABUSE PROGRAM, SOME INFORMATION MAY BE OMITTED. This clinical summary was aggregated from multiple sources. Caution should be exercised in using it in the provision of clinical care. This summary normalizes information from multiple sources, and as a consequence, information in this document may materially change the coding, format and clinical context of patient data. In addition, data may be omitted in some cases. CLINICAL DECISIONS SHOULD BE BASED ON THE PRIMARY CLINICAL RECORDS. [facility] [employer] [facility]. provides no warranty or guarantee of the accuracy or completeness of information in this document.
--- NOTE | 2024-11-22 05:49 | PC.NURSE ---
this patient complains that her right upper port is unable to draw blood, but able to flush well. this port was accessed 1 day ago
--- NOTE | 2024-11-22 06:07 | ED.GENADUL1 ---
Documented by User: Gunner Jackson MD 11/25/24 19:22 HPI HPI - General Adult General Chief complaint: Nausea/Vomiting/Diarrhea Stated complaint: MALFUNCTIONING PORT Time Seen by Provider: 11/22/24 05:57 Source: patient Mode of arrival: walk-in Limitations: no limitations History of Present Illness HPI narrative: patient states past history of hypertriglyceridemia type V and recurrent pancreatitis. 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 Has chronic GI pain and nausea. Has port in place right chest for past 2 years for venous access. States last night she was not able to draw blood from her port and was adivsed to come to the ER. States advised not to use the port to supply IV medication if she is not able to draw blood. She otherwise is ok . No other new acute problems Related Data Home Medications ?Medication ?Instructions ?Recorded ?Confirmed alprazolam 1 mg tablet 1 mg PO QID PRN anxiety 12/25/22 12/25/22 amlodipine 10 mg tablet 10 mg PO DAILY 12/25/22 12/25/22 gabapentin 300 mg capsule 300 mg PO BID 12/25/22 12/25/22 hydrochlorothiazide 25 mg tablet 25 mg PO DAILY 12/25/22 12/25/22 losartan 50 mg tablet 50 mg PO DAILY 12/25/22 12/25/22 lubiprostone 24 mcg capsule mcg PO 12/25/22 lubiprostone 24 mcg capsule 24 mcg PO BID 12/25/22 12/25/22 (Amitiza) ondansetron HCl 2 mg/mL mg 12/25/22 intravenous solution oxycodone 5 mg tablet 5 mg PO Q6H PRN pain 12/25/22 12/25/22 promethazine 25 mg/mL injection mg 12/25/22 solution quetiapine 100 mg tablet 150 mg PO DAILY 12/25/22 12/25/22 sertraline 100 mg tablet (Zoloft) 100 mg PO DAILY 12/25/22 12/25/22 temazepam 15 mg capsule 15 mg PO DAILY 12/25/22 12/25/22 tizanidine 4 mg tablet 8 mg PO Q12H 12/25/22 12/25/22 zolpidem 10 mg tablet 10 mg PO DAILY 12/25/22 12/25/22 Allergies Allergy/AdvReac Type Severity Reaction Status Date / Time azithromycin (From Zithromax) Allergy Unknown Unknown Verified 11/22/24 05:44 clindamycin Allergy Unknown Unknown Verified 11/22/24 05:44 dicyclomine (From Bentyl) Allergy Unknown Unknown Verified 11/22/24 05:44 erythromycin base Allergy Unknown Unknown Verified 11/22/24 05:44 ketorolac (From Toradol) Allergy Unknown Unknown Verified 11/22/24 05:44 meperidine (From Demerol) Allergy Unknown Unknown Verified 11/22/24 05:44 metoclopramide (From Reglan) Allergy Unknown Unknown Verified 11/22/24 05:44 nitrofurantoin (From Allergy Unknown Unknown Verified 11/22/24 05:44 Macrobid) Penicillins Allergy Unknown Unknown Verified 11/22/24 05:44 vancomycin Allergy Unknown Unknown Verified 11/22/24 05:44 Opioid HPI Opioid Management Most Recent Opioid Data: Last Pain Scale 9 05/08/23, 04:20 Review of Systems ROS Status of ROS 10 or more systems reviewed and unremarkable except as noted in history and below PFSH PFS Medical History (Updated 11/22/24 @ 11:36 by Angus Vickers MD) GI bleed ?K92.2 - Gastrointestinal hemorrhage, unspecified (ICD-10) Surgical History (Updated 02/02/23 @ 14:47 by Radha Johnston) 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) ?Z90.49 - Acquired absence of other specified parts of digestive tract (ICD-10) H/O splenectomy ?Z90.81 - Acquired absence of spleen (ICD-10) Social History Smoking status: Never smoker Little interest or pleasure in doing things: not at all Feeling down, depressed, or hopeless: not at all Exam Constitutional Vital Signs, click to edit/add: Last Vital Signs Temp 98.2 F 11/22/24 05:46 Pulse 81 11/22/24 05:46 Resp 18 11/22/24 05:46 BP 207/121 H 11/22/24 11:30 Pulse Ox 97 11/22/24 11:00 O2 Del Method Room Air 11/22/24 05:46 Common normals: no apparent distress, average body habitus, oriented x3, no limitations, healthy appearing, alert and well nourished [facility] Common normals: normocephalic and head/scalp atraumatic Eye Common normals: EOMs intact bilaterally Chest Other: port site right chest is clear Respiratory Common normals: normal respiratory effort, no retractions, no use of accessory muscles and clear to auscultation bilaterally Cardio Common normals: regular rate, regular rhythm, S1 normal heart sound and S2 normal heart sound GI Common normals: Normal to inspection, nondistended, normoactive bowel sounds present, soft to palpation and non-tender Extremity Common normals: normal to inspection and full ROM Neuro Common normals: oriented x3, CN's II-XII intact bilaterally, moves all extremities and no focal motor deficits Psych Appearance: grossly normal Course Vital Signs Vital signs: Vital Signs Temperature 98.2 F 11/22/24 05:46 Pulse Rate 81 11/22/24 05:46 Respiratory Rate 18 11/22/24 05:46 Blood Pressure 189/126 H 11/22/24 05:46 Pulse Oximetry 99 11/22/24 05:46 Oxygen Delivery Method Room Air 11/22/24 05:46 Temperature 98.2 F 11/22/24 05:46 Pulse Rate 81 11/22/24 05:46 Respiratory Rate 18 11/22/24 05:46 Blood Pressure 207/121 H 11/22/24 11:30 Pulse Oximetry 97 11/22/24 11:00 Oxygen Delivery Method Room Air 11/22/24 05:46 Medical Decision Making MDM Narrative Medical decision making narrative: patient has port right chest that is not functioning. Not able to draw blood and difficult to flush. Nursing did try heparin without success. Needle was also changed without any benefit. Will contact Pharmacy to find out dosing for Tenecteplase to flush the port. Care transferrred to oncoming physician at change of shift Discharge Plan Discharge Chief Complaint: Nausea/Vomiting/Diarrhea Clinical Impression: Encounter for care related to vascular access port Patient Disposition: Home, Self-Care Time of Disposition Decision: 11:31 Condition: Fair Prescriptions / Home Meds: No Action temazepam 15 mg capsule 15 mg PO DAILY zolpidem 10 mg tablet 10 mg PO DAILY quetiapine 100 mg tablet 150 mg PO DAILY sertraline [Zoloft] 100 mg tablet 100 mg PO DAILY tizanidine 4 mg tablet 8 mg PO Q12H gabapentin 300 mg capsule 300 mg PO BID lubiprostone [Amitiza] 24 mcg capsule 24 mcg PO BID amlodipine 10 mg tablet 10 mg PO DAILY losartan 50 mg tablet 50 mg PO DAILY hydrochlorothiazide 25 mg tablet 25 mg PO DAILY alprazolam 1 mg tablet 1 mg PO QID PRN (Reason: anxiety) ondansetron HCl 2 mg/mL solution promethazine 25 mg/mL solution lubiprostone 24 mcg capsule PO oxycodone 5 mg tablet 5 mg PO Q6H PRN (Reason: pain) Patient Comments: PALLIATIVE CARE PT Print Language: Cypriot Additional Instructions: I have spoken to Dr. Morgan, the vascular surgeon at [facility]. Your port was put in July 2023. He will see you in [facility] office tomorrow between 9 and 11 AM. Just show up with the office and you will be seen by him tomorrow. He had no other recommendations. Continue taking medication as prescribed. You were given your first 2 doses of Coreg and amlodipine this morning. Referrals: Physician,Non-Staff, [Primary Care Provider] - 1 week Discharge Date/Time: 11/22/24 12:03 Documented by User: Angus Vickers MD 11/22/24 11:41 HPI HPI - General Adult General Chief complaint: Nausea/Vomiting/Diarrhea Stated complaint: MALFUNCTIONING PORT Time Seen by Provider: 11/22/24 05:57 Related Data Home Medications ?Medication ?Instructions ?Recorded ?Confirmed alprazolam 1 mg tablet 1 mg PO QID PRN anxiety 12/25/22 12/25/22 amlodipine 10 mg tablet 10 mg PO DAILY 12/25/22 12/25/22 gabapentin 300 mg capsule 300 mg PO BID 12/25/22 12/25/22 hydrochlorothiazide 25 mg tablet 25 mg PO DAILY 12/25/22 12/25/22 losartan 50 mg tablet 50 mg PO DAILY 12/25/22 12/25/22 lubiprostone 24 mcg capsule mcg PO 12/25/22 lubiprostone 24 mcg capsule 24 mcg PO BID 12/25/22 12/25/22 (Amitiza) ondansetron HCl 2 mg/mL mg 12/25/22 intravenous solution oxycodone 5 mg tablet 5 mg PO Q6H PRN pain 12/25/22 12/25/22 promethazine 25 mg/mL injection mg 12/25/22 solution quetiapine 100 mg tablet 150 mg PO DAILY 12/25/22 12/25/22 sertraline 100 mg tablet (Zoloft) 100 mg PO DAILY 12/25/22 12/25/22 temazepam 15 mg capsule 15 mg PO DAILY 12/25/22 12/25/22 tizanidine 4 mg tablet 8 mg PO Q12H 12/25/22 12/25/22 zolpidem 10 mg tablet 10 mg PO DAILY 12/25/22 12/25/22 Allergies Allergy/AdvReac Type Severity Reaction Status Date / Time azithromycin (From Zithromax) Allergy Unknown Unknown Verified 11/22/24 05:44 clindamycin Allergy Unknown Unknown Verified 11/22/24 05:44 dicyclomine (From Bentyl) Allergy Unknown Unknown Verified 11/22/24 05:44 erythromycin base Allergy Unknown Unknown Verified 11/22/24 05:44 ketorolac (From Toradol) Allergy Unknown Unknown Verified 11/22/24 05:44 meperidine (From Demerol) Allergy Unknown Unknown Verified 11/22/24 05:44 metoclopramide (From Reglan) Allergy Unknown Unknown Verified 11/22/24 05:44 nitrofurantoin (From Allergy Unknown Unknown Verified 11/22/24 05:44 Macrobid) Penicillins Allergy Unknown Unknown Verified 11/22/24 05:44 vancomycin Allergy Unknown Unknown Verified 11/22/24 05:44 Opioid HPI Opioid Management Most Recent Opioid Data: Last Pain Scale 9 05/08/23, 04:20 PFSH PFSH Medical History (Updated 11/22/24 @ 11:36 by Angus Vickers MD) GI bleed ?K92.2 - Gastrointestinal hemorrhage, unspecified (ICD-10) Surgical History (Updated 02/02/23 @ 14:47 by Radha Johnston) 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) ?Z90.49 - Acquired absence of other specified parts of digestive tract (ICD-10) H/O splenectomy ?Z90.81 - Acquired absence of spleen (ICD-10) Social History Smoking status: Never smoker Little interest or pleasure in doing things: not at all Feeling down, depressed, or hopeless: not at all Exam Constitutional Vital Signs, click to edit/add: Last Vital Signs Temp 98.2 F 11/22/24 05:46 Pulse 81 11/22/24 05:46 Resp 18 11/22/24 05:46 BP 207/121 H 11/22/24 11:30 Pulse Ox 97 11/22/24 11:00 O2 Del Method Room Air 11/22/24 05:46 Course Vital Signs Vital signs: Vital Signs Temperature 98.2 F 11/22/24 05:46 Pulse Rate 81 11/22/24 05:46 Respiratory Rate 18 11/22/24 05:46 Blood Pressure 189/126 H 11/22/24 05:46 Pulse Oximetry 99 11/22/24 05:46 Oxygen Delivery Method Room Air 11/22/24 05:46 Temperature 98.2 F 11/22/24 05:46 Pulse Rate 81 11/22/24 05:46 Respiratory Rate 18 11/22/24 05:46 Blood Pressure 207/121 H 11/22/24 11:30 Pulse Oximetry 97 11/22/24 11:00 Oxygen Delivery Method Room Air 11/22/24 05:46 Medical Decision Making MDM Narrative Medical decision making narrative: patient has port right chest that is not functioning. Not able to draw blood and difficult to flush. Nursing did try heparin without success. Needle was also changed without any benefit. Will contact Pharmacy to find out dosing for Tenecteplase to flush the port. Care transferrred to oncoming physician at change of shift 0700 patient was transitioned to ms by Dr. Jackson. There has been several different attempts with trying to access this patient's port in the last 6 hours. Patient is being discharged at 11:35 AM. Please see Bernard RN and Krystal electronic musical instrument repairer notes along with Letty RN documentations notes on medication that was given with the port. Active placed protocols have been followed. We attempted 1 last procedure with Letty MEJÍA and myself with changing port, flushing it again. Patient was able to taste the saline going to the port but not able to have a blood return it was not functioning properly. After several attempts of active place, I placed a phone call to the vascular surgeon on-call today at [facility], Dr. Smallwood. He knows this patient, he placed the port in July 2023. He stated there is nothing else acute to do at this time. Discharge the patient. He will see the patient tomorrow in the office between 9 and noon. Patient was told to be at the office between 9 and 11 AM to make sure that she is there to be seen. Patient blood pressure has been elevated, she did not have her Coreg or her amlodipine this morning. Those 2 medications were given. At discharge, patient was having nausea, she states that she has been vomiting for 3 days. Initially patient stated that she did not want anything for nausea at this time. I left the room, and patient had told Krystal MEJÍA that she did want medication for nausea. Patient was given oral Zofran and IM injection. Patient understands to follow-up with her vascular surgeon tomorrow which is excellent follow-up care, patient was educated bedside and water return back to the ER at [facility] or [facility] ER if needed. No questions at discharge. Patient has longstanding history of hypertension that is difficult to control. She has no headache, chest pain, shortness of breath. Critical care time on behalf of of Bernard RN, Krystal RN, Letty RN, and myself trying to access patient's right chest port. Critical care time 35 minutes exclusive from separate billable procedures that were performed. The following was considered in the determination of critical care but not limited to the level of medical decision making, intensive cardiac and/or respiratory monitoring, frequent vital sign monitoring, evaluation of laboratory studies, evaluation of radiographic studies, oxygen monitoring, and constant monitoring and speaking to family at bedside. Discharge Plan Discharge Chief Complaint: Nausea/Vomiting/Diarrhea Clinical Impression: Encounter for care related to vascular access port Patient Disposition: Home, Self-Care Time of Disposition Decision: 11:31 Condition: Fair Prescriptions / Home Meds: No Action temazepam 15 mg capsule 15 mg PO DAILY zolpidem 10 mg tablet 10 mg PO DAILY quetiapine 100 mg tablet 150 mg PO DAILY sertraline [Zoloft] 100 mg tablet 100 mg PO DAILY tizanidine 4 mg tablet 8 mg PO Q12H gabapentin 300 mg capsule 300 mg PO BID lubiprostone [Amitiza] 24 mcg capsule 24 mcg PO BID amlodipine 10 mg tablet 10 mg PO DAILY losartan 50 mg tablet 50 mg PO DAILY hydrochlorothiazide 25 mg tablet 25 mg PO DAILY alprazolam 1 mg tablet 1 mg PO QID PRN (Reason: anxiety) ondansetron HCl 2 mg/mL solution promethazine 25 mg/mL solution lubiprostone 24 mcg capsule PO oxycodone 5 mg tablet 5 mg PO Q6H PRN (Reason: pain) Patient Comments: PALLIATIVE CARE PT Print Language: Cypriot Additional Instructions: I have spoken to Dr. Morgan, the vascular surgeon at [facility]. Your port was put in July 2023. He will see you in [facility] office tomorrow between 9 and 11 AM. Just show up with the office and you will be seen by him tomorrow. He had no other recommendations. Continue taking medication as prescribed. You were given your first 2 doses of Coreg and amlodipine this morning. Referrals: Physician,Non-Staff, MD [Primary Care Provider] - 1 week Discharge Date/Time: 11/22/24 12:03
[2024-11-22] MEDS: ALTEPLASE 2 MG VIAL IVP (07:30)
[2024-11-22] MEDS: ALTEPLASE 2 MG, WATER FOR INJECTION,STERILE 2.2 ML IVP (09:52)
--- NOTE | 2024-11-22 10:42 | PC.NURSE ---
This nurse assumed care for patient - at this time port aspiration again attempted with no success Will retry again in 90 minutes - at noon Pt aware of this and states concern for being days behind on her medications Pt states ever since her pancreas removal 11 years ago she has had some sort of line/port/picc Pt states she does take some medications oral and she has not been able to keep them down and the nausea meds she usually administers through this port Pt states she does not want to wait too long without having IV access as this will worsen her symptoms Pts concerns reported to Dr. Vickers
[2024-11-22] MEDS: CARVEDILOL 3.125 MG TABLET 6.25 MG PO (11:30)
[2024-11-22] MEDS: AMLODIPINE BESYLATE 5 MG TABLET 10 MG PO (11:30)
[2024-11-22] MEDS: ONDANSETRON 4 MG RAPDIS TABLET SL ×2 (11:30)
--- NOTE | 2024-11-22 11:35 | PC.NURSE ---
Pt attempting to take oral blood pressure medications after sublingual zofran at this time - given a basin as patient is concerned she will not be able to keep it down Pt still concerned about what to do if port is not working
--- NOTE | 2024-11-22 12:03 | PC.NURSE ---
Dr. Vickers spoke with patient about discharge and plan to see vascular surgeon in his office tomorrow This nurse went in to discharge patient and patient was already dressed sitting at the edge of the bed pt states she wants to leave the accessed device in Pt states she took her blood pressure medication but it did not stay down - pt was not revitalized as she was standing at the door ready to go This nurse repeatedly asked if there was anything else I could do Pt given her discharge instructions which I hand wrote the surgeons office address on and appointment information Pt ambulated to ER exit
== END 2024-11-22 12:03 | disposition home or self-care (01) ==
PROVIDERS: Emergency Provider Internal Medicine
DX: Z45.2 Encounter for adjustment and management of vascular access device (principal)
CPT/HCPCS: 96374; 96376; 99285; J2997; Q0162